=== PATIENT | female | born 1985 | race Caucasian/White ===

== ENCOUNTER 2023-02-15 18:11 | Outpatient (REF) | payer OTHER, SELFPAY ==
[2023-02-23 14:08] LABS: Pancreatic Elastase, Fecal 137 (>200)
== END 2023-02-15 18:12 | disposition home or self-care (01) ==
LOC: LAB 18:11
PROVIDERS: Visit Provider Internal Medicine
DX: R19.8 Other specified symptoms and signs involving the digestive system and abdomen (principal)
CPT/HCPCS: 82656

== ENCOUNTER 2023-02-27 09:34 | Outpatient (OUT) | payer OTHER, SELFPAY ==
[2023-02-27 10:13] LABS: Basophils Percent Auto 0.5 % (0.2-2.0); Eosinophils Absolute Auto 0.1 10^3/uL (0.0-0.7); Hematocrit 37.7 % (36.0-48.0); Hemoglobin 12.5 g/dL (12.0-16.0); Immature Granulocytes Abs Auto 0.03 10^3/uL (0.00-0.03); Immature Granulocytes Pct Auto 0.4 % (0.0-0.5); Lymphocytes Absolute Auto 1.9 10^3/uL (1.2-3.8); Lymphocytes Percent Auto 22.7 % (20.5-60.0); Mean Corpuscular HGB Conc 33.2 g/dL (29.9-35.2); Mean Corpuscular Volume 87.5 fL (81.0-99.0); Mean Platelet Volume 10.5 fL (9.5-13.5); Monocytes Absolute Auto 0.6 10^3/uL (0.3-0.8); Neutrophils Absolute Auto 5.6 10^3/uL (1.4-6.5); Neutrophils Percent Auto 68.4 % (43.0-75.0); Platelet Count 252 10^3/uL (150-450); Red Blood Count 4.31 10^6/uL (4.20-5.40); Red Cell Distribution Width 12.8 % (11.0-15.0); White Blood Count 8.2 10^3/uL (4.0-11.0)
[2023-02-27 10:43] LABS: Alanine Aminotransferase 25 U/L (14-59); Albumin Globulin Ratio 0.8; Albumin Level 3.3 g/dL (3.4-5.0); Alkaline Phosphatase 79 U/L (46-116); Anion Gap 17.4; Aspartate Amino Transferase 18 U/L (15-37); Bilirubin Total 0.3 mg/dL (0.2-1.0); Calcium 9.2 mg/dL (8.5-10.1); Carbon Dioxide 23.2 mmol/L (21.0-32.0); Chloride 101 mmol/L (98-107); Estimated GFR (African America >60 (>=60); Estimated GFR (Non-African Ame >60 (>=60); Globulin 4.2 g/dL; Glucose 129 mg/dL (74-106); Potassium 3.6 mmol/L (3.5-5.1); Sodium 138 mmol/L (136-145); Total Protein 7.5 g/dL (6.4-8.2)
== END 2023-02-27 09:35 | disposition home or self-care (01) ==
LOC: LAB 09:35
PROVIDERS: Visit Provider Internal Medicine
DX: E02 Subclinical iodine-deficiency hypothyroidism (principal); R19.8 Other specified symptoms and signs involving the digestive system and abdomen
CPT/HCPCS: 36415; 80053; 84439; 84443; 85025; 86036; 86258; 86364; 86671

== ENCOUNTER 2023-02-27 09:38 | Outpatient (OUT) | payer OTHER, SELFPAY ==
[2023-02-27 10:49] LABS: Thyroid Stimulating Hormone 3.411 uIU/mL (0.358-3.740)
[2023-02-27 11:56] LABS: Free T4 0.95 ng/dL (0.76-1.46)
== END 2023-02-27 09:39 | disposition home or self-care (01) ==
LOC: LAB 09:39
DX: E02 Subclinical iodine-deficiency hypothyroidism (principal)
CPT/HCPCS: 36415; 84439; 84443

== ENCOUNTER 2023-02-28 16:49 | Outpatient (REF) | payer OTHER, SELFPAY ==
[2023-03-08 16:09] LABS: Calprotectin, Fecal 40 ug/g (0-120); Lactoferrin, Fecal, Quant. <1.00 ug/mL(g) (0.00-7.24)
== END 2023-02-28 16:50 | disposition home or self-care (01) ==
LOC: LAB 16:49
PROVIDERS: Visit Provider Internal Medicine
DX: R19.8 Other specified symptoms and signs involving the digestive system and abdomen (principal)
CPT/HCPCS: 83631; 83993

== ENCOUNTER 2023-03-24 21:48 | Emergency (ER) | payer OTHER, SELFPAY ==
[2023-03-24 21:55] VITALS: BP 152/92; PULSE 87; RESP 18; TEMP 36.6; O2SAT 98; BMI 31.4
--- NOTE | 2023-03-24 22:11 | ECG_ITS ---
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
--- NOTE | 2023-03-24 22:12 | CT_ITS ---
The [address] [address] Patient Name: GONZÁLEZ LOMELI MRN: [id number] date: 1985 Sex: F Assigned Patient Location: ER Current Patient Location: ER Accession/Order Number: [id number] Exam Date: 03/24/2023 22:38 Report Date: 03/24/2023 23:15 At the request of: BLANCHE RUIZ Procedure: CT head/brain wo con EXAM: CT head/brain wo con HISTORY: Headache COMPARISON: None. TECHNIQUE: CT head without intravenous contrast. Dose reduction techniques were achieved by using automated exposure control and/or adjustment of mA and/or kV according to patient size and/or use of iterative reconstruction technique. FINDINGS: The brain parenchyma density is unremarkable. There is no acute intracranial hemorrhage, extra axial fluid collection, midline shift, or mass effect. There is no evidence to suggest acute infarction. The ventricles, sulci, and cisterns are normal in size and configuration, without evidence of hydrocephalus or herniation. The partially visualized paranasal sinuses and mastoid air cells are well pneumatized and clear. There are no suspicious osseous lytic or sclerotic lesions. There are no acute fractures. The extracranial soft tissues are unremarkable. CT/CT head/brain wo con IMPRESSION: No acute intracranial process. Electronically authenticated by: ELBA GOLDBERG Date: 03/24/2023 23:15
[2023-03-24 22:21] LABS: Basophils Absolute Auto 0.1 10^3/uL (0.0-0.1); Basophils Percent Auto 0.7 % (0.2-2.0); Eosinophils Absolute Auto 0.1 10^3/uL (0.0-0.7); Eosinophils Percent Auto 1.3 % (0.9-7.0); Hematocrit 38.5 % (36.0-48.0); Hemoglobin 12.5 g/dL (12.0-16.0); Immature Granulocytes Abs Auto 0.03 10^3/uL (0.00-0.03); Immature Granulocytes Pct Auto 0.3 % (0.0-0.5); Lymphocytes Absolute Auto 1.9 10^3/uL (1.2-3.8); Lymphocytes Percent Auto 20.5 % (20.5-60.0); Mean Corpuscular HGB Conc 32.5 g/dL (29.9-35.2); Mean Corpuscular Hemoglobin 29.3 pg (26.7-34.0); Mean Corpuscular Volume 90.4 fL (81.0-99.0); Mean Platelet Volume 9.9 fL (9.5-13.5); Monocytes Absolute Auto 0.7 10^3/uL (0.3-0.8); Monocytes Percent Auto 8.1 % (1.7-12.0); Neutrophils Absolute Auto 6.3 10^3/uL (1.4-6.5); Neutrophils Percent Auto 69.1 % (43.0-75.0); Platelet Count 217 10^3/uL (150-450); Red Blood Count 4.26 10^6/uL (4.20-5.40); Red Cell Distribution Width 12.4 % (11.0-15.0); White Blood Count 9.1 10^3/uL (4.0-11.0)
[2023-03-24 22:36] LABS: Anion Gap 11.6; BUN Creatinine Ratio 11.9; Calcium 8.9 mg/dL (8.5-10.1); Carbon Dioxide 23.9 mmol/L (21.0-32.0); Chloride 101 mmol/L (98-107); Estimated GFR (African America >60 (>=60); Estimated GFR (Non-African Ame >60 (>=60); Glucose 131 mg/dL (74-106); Potassium 3.5 mmol/L (3.5-5.1); Sodium 133 mmol/L (136-145)
[2023-03-24 22:38] LABS: HCG Qualitative NEGATIVE (NEGATIVE)
[2023-03-24] MEDS: 0.9 % SODIUM CHLORIDE 1,000 ML 999 ML IV (22:49)
[2023-03-24] MEDS: DIPHENHYDRAMINE HCL 50 MG/ML (1ML) VIAL IV (22:49)
[2023-03-24] MEDS: MAGNESIUM SULFATE IN WATER 2 GM/50 ML PREMIX IV (22:49)
[2023-03-24] MEDS: METOCLOPRAMIDE HCL 10 MG/2 ML VIAL IVP (22:49)
[2023-03-24] MEDS: KETOROLAC TROMETHAMINE 30 MG/ML VIAL IVP (23:29)
--- NOTE | 2023-03-25 00:37 | ED_ITS ---
HPI - General Adult General Chief complaint: Nausea/Vomiting/Diarrhea Stated complaint: HEADACHE Time Seen by Provider: 03/24/23 22:09 Source: patient Mode of arrival: walk-in Limitations: no limitations History of Present Illness HPI narrative: 37-year-old female to the emergency department with chief complaint of headache. 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 She reports it gradually intensified. She reports pain is currently an eight out of ten. She reports a history of one to two headaches a month. They're similar in location and type of pain but not usually this severe. She reports she vomited one time. She reports lights and sounds are bothering her. She denies any neck pain or stiffness. No recent head injuries. She is not on any blood thinners. She denies any changes in her vision, numbness, weakness, tingling, difficulty speaking, difficulty walking. Related Data Allergies Allergy/AdvReac Type Severity Reaction Status Date / Time No Known Drug Allergies Allergy Verified 03/24/23 22:00 Review of Systems 2 ROS Status of ROS 10 or more systems reviewed and unremarkable except as noted in history and below Exam Narrative Exam Narrative: VITALS: I have reviewed the triage vital signs. GENERAL: Well developed, well appearing adult in no acute distress. NEURO: Alert and oriented x4. Moves all extremities. Face is symmetric and expressive. Cranial nerves II through XII grossly intact as tested. Muscular strength and sensation grossly intact upper and lower extremities bilaterally. No dysarthria. No aphasia. No ataxia. Normal gait. NIHSS 0. EYES: PERRL. No scleral icterus or conjunctival injection. No discharge. HENT: Normocephalic, atraumatic. Hearing is grossly intact. Nares grossly patent and without discharge. Mucous membranes moist. NECK: No JVD. Patient moves neck without restriction. CARDIO: Rhythm regular. Normal rate. No murmur, rub, or gallop. Pulses equal bilaterally in the upper and lower extremity. No lower extremity edema. PULM: Lungs clear to auscultation in all carlos. No wheezes, rales, or rhonchi. No conversational dyspnea. No splinting, stridor, or accessory muscle use. GI/: Abdomen is soft and non-tender. Normoactive bowel sounds. EXTREMITIES: Symmetric muscle bulk. No joint swelling. No clubbing, cyanosis, or deformity. SKIN: Warm and dry. Normal turgor. No rash or lesions appreciated. PSYCH: Mood, affect, and interaction is appropriate to the setting. Constitutional Vital Signs, click to edit/add: Last Vital Signs Temp 97.9 F 03/24/23 21:55 Pulse 87 03/24/23 21:55 Resp 18 03/24/23 21:55 BP 152/92 H 03/24/23 21:55 Pulse Ox 98 03/24/23 21:55 O2 Del Method Room Air 03/24/23 21:55 Course Vital Signs Vital signs: Vital Signs Temperature 97.9 F 03/24/23 21:55 Pulse Rate 87 03/24/23 21:55 Respiratory Rate 18 03/24/23 21:55 Blood Pressure 152/92 H 03/24/23 21:55 Pulse Oximetry 98 03/24/23 21:55 Oxygen Delivery Method Room Air 03/24/23 21:55 Temperature 97.9 F 03/24/23 21:55 Pulse Rate 87 03/24/23 21:55 Respiratory Rate 18 03/24/23 21:55 Blood Pressure 152/92 H 03/24/23 21:55 Pulse Oximetry 98 03/24/23 21:55 Oxygen Delivery Method Room Air 03/24/23 21:55 Medical Decision Making MDM Narrative Medical decision making narrative: 37-year-old female with chief complaint of headache. Vital stable, patient afebrile. Headache is similar past headaches. Gradual in onset, not thunderclap. Her neurologic examination is nonfocal. She did present within the 1st [address] head sufficient rule out for subarachnoid and my low clinical suspicion/pretest probability. Migraine cocktails ordered. Patient agrees with this plan. I reviewed and noted. There are no major abnormalities. CT head is without acute findings. Patient was reevaluated at the bedside. Her headache has resolved. She feels much improved. Her neurologic examination is nonfocal. Discussed workup with the patient. Discussed return precautions. She is comfortable with plan for discharge home. Return precautions were discussed. All questions were answered. The patient was discharged home. Medical Records Medical records reviewed: Yes I reviewed the patient's medical records Lab Data Lab results reviewed: Yes I reviewed the patient's lab results Labs: Lab Results 03/24/23 Range/Units 22:04 WBC 9.1 (4.0-11.0) 10^3/uL RBC 4.26 (4.20-5.40) 10^6/uL Hgb 12.5 (12.0-16.0) g/dL Hct 38.5 (36.0-48.0) % MCV 90.4 (81.0-99.0) fL MCH 29.3 (26.7-34.0) pg MCHC 32.5 (29.9-35.2) g/dL RDW 12.4 (11.0-15.0) % Plt Count 217 (150-450) 10^3/uL MPV 9.9 (9.5-13.5) fL Neut % (Auto) 69.1 (43.0-75.0) % Lymph % (Auto) 20.5 (20.5-60.0) % [place] % (Auto) 8.1 (1.7-12.0) % Eos % (Auto) 1.3 (0.9-7.0) % Baso % (Auto) 0.7 (0.2-2.0) % Neut # (Auto) 6.3 (1.4-6.5) 10^3/uL Lymph # (Auto) 1.9 (1.2-3.8) 10^3/uL [place] # (Auto) 0.7 (0.3-0.8) 10^3/uL Eos # (Auto) 0.1 (0.0-0.7) 10^3/uL Baso # (Auto) 0.1 (0.0-0.1) 10^3/uL Abs Immat Gran (auto) 0.03 (0.00-0.03) 10^3/uL Imm/Tot Granulo (auto) 0.3 (0.0-0.5) % Sodium 133 L (136-145) mmol/L Potassium 3.5 (3.5-5.1) mmol/L Chloride 101 (98-107) mmol/L Carbon Dioxide 23.9 (21.0-32.0) mmol/L Anion Gap 11.6 BUN 10.0 (7.0-18.0) mg/dL Creatinine 0.84 (0.55-1.02) mg/dL Est GFR ( Amer) >60 (>=60) Est GFR (Non-Af Amer) >60 (>=60) BUN/Creatinine Ratio 11.9 Glucose 131 H (74-106) mg/dL Calcium 8.9 (8.5-10.1) mg/dL Serum HCG, Qual Negative (NEGATIVE) ECG Data Attestation: ?I have reviewed the pertinent ECG results. Discharge Plan Discharge Chief Complaint: Nausea/Vomiting/Diarrhea Clinical Impression: Headache Patient Disposition: Home, Self-Care Time of Disposition Decision: 23:49 Condition: Good Mode of Transportation: Private Vehicle Print Language: Montserratian Instructions: Acute Headache (ED) Stand Alone Forms: Portal Instructions Referrals: ROLA SANTIZO [Primary Care Provider] - 1 week (Return to the ED with vision changes, worsening headache, Numbness, weakness, tingling, or other new or concerning symptoms. Follow-up with your doctor.) Discharge Date/Time: 03/25/23 00:17
== END 2023-03-25 00:17 | disposition home or self-care (01) ==
PROVIDERS: Emergency Provider Student in an Organized Health Care Education/Training Program
DX: R51.9 Headache, unspecified (principal)
CPT/HCPCS: 36415; 70450; 80048; 84703; 85025; 93005; 96365; 96375; 99285

== ENCOUNTER 2023-03-30 10:27 | Outpatient (OUT) | payer OTHER, SELFPAY ==
[2023-04-03 14:10] LABS: Pancreatic Elastase, Fecal 124 (>200)
== END 2023-03-30 10:28 | disposition home or self-care (01) ==
LOC: LAB 10:30
PROVIDERS: Visit Provider Internal Medicine
DX: R19.8 Other specified symptoms and signs involving the digestive system and abdomen (principal); R15.2 Fecal urgency
CPT/HCPCS: 82656

== ENCOUNTER 2023-04-02 15:00 | Outpatient (OUT) | payer OTHER, SELFPAY ==
[2023-04-02 16:05] LABS: Thyroid Stimulating Hormone 1.817 uIU/mL (0.358-3.740)
== END 2023-04-02 15:01 | disposition home or self-care (01) ==
LOC: LAB 15:00
DX: E02 Subclinical iodine-deficiency hypothyroidism (principal); E03.9 Hypothyroidism, unspecified
CPT/HCPCS: 36415; 84443

== ENCOUNTER 2023-06-19 15:08 | Outpatient (OUT) | payer OTHER, SELFPAY ==
--- NOTE | 2023-06-19 15:12 | US_ITS ---
[address] [address] Patient Name: GONZÁLEZ LOMELI MRN: [id number] date: 1985 Sex: F Assigned Patient Location: [facility] Current Patient Location: [facility] Accession/Order Number: [id number] Exam Date: 06/19/2023 15:12 Report Date: 06/19/2023 16:03 At the request of: SAGAR BUTLER Procedure: US OB transvaginal EXAMINATION: US OB transvaginal HISTORY: MISSED MENSES COMPARISON: No relevant comparison available. FINDINGS: Gilbert intrauterine gestation Gestational sac: 1.7 cm, 6 weeks 1 day CRL: 1.53 cm, 8 weeks 0 days Yolk sac: 4.6 cm Heart rate: 174 bpm Cervix: Closed, 3.4 cm The uterus is normal, retroverted, retroflexed The right ovary is normal. The left ovary is not visualized Clinical age: 5 weeks 6 days Clinical IFEANYI: 02/13/2024 Ultrasound age: 8 weeks 0 days Ultrasound IFEANYI: 01/29/2024 US/US OB transvaginal IMPRESSION: Viable gilbert intrauterine gestation measuring 8 weeks 0 days Electronically authenticated by: MUSTAPHA COLES Date: 06/19/2023 16:03
--- OUTSIDE RECORDS SUMMARY | 2023-06-19 15:13 | XMS_ITS | CCD ---
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 Name Role Phone Maria Guadalupe Powers Unavailable NadiyaAydee anderson Unavailable Perla Márquez Unavailable Shun Hill Unavailable MD Shun Hill Attending Provider DO Irma Burt Primary Care Provider MD Shun Hill Attending Provider [phone] DO Irma Burt Primary Care Provider Shnu Hill Admitting UnavailIrma Elliott Primary Care Unavailable Shun Hill Attending Shun Medellin Attending UnavailShun Lee Admitting UnavailIrma Elliott Primary Care Unavailable Shun Hill Admitting UnavailIrma Elliott Primary Care Unavailable Shun Hill Attending Unavailtonya e Medications Current Medications Medication Drug Class(es) Dates Sig (Normalized) Sig (Original) amoxicillin 500 mg oral capsule (2 sources) Penicillin-class Antibacterial Start: 07-26-2022 take 1 capsule by mouth every eight hours Amoxicillin 500 MG 1 capsule Orally three times a day for 10 day(s) Jul, Active amylase 617496 unt / lipase 28524 unt / protease 737102 unt delayed release oral capsule (2 sources) Start: 04-06-2023 take 2 capsules by mouth three times daily at mealtime Creon [id number] UNIT 2 capsules Orally three times a day with meals for 30 days Mar, Active Desogestrel / Ethinyl Estradiol (3 sources) Progestin, Estrogen Start: 03-15-2023 Desogestrel-Ethin yl Estradiol (Apri) 0.15-0.03 mg tablet Active 1 TAB PO Daily March 14, 2023 11:00pm Start: 03-15-2023 Desogestrel-Et hinyl Estradiol (Apri) 0.15-0.03 mg tablet Active 1 TAB PO Daily March 15, 2023 12:00am furosemide 20 mg oral tablet (8 sources) Loop Diuretic Start: 03-15-2023 take 20 mg by mouth once daily Furosemide Active 20 MG PO Daily March 14, 2023 11:00pm levothyroxine sodium 0.075 mg oral tablet (9 sources) l-Thyroxine Start: 03-15-2023 take 75 ug by mouth once daily Levothyroxine Active 75 MCG PO Daily March 14, 2023 11:00pm take 1 tablet by keara th once daily in the morning Levothyroxine Sodium 50 MCG 1 tablet in the morning on an empty stomach Orally Once a day Active take 1 tablet by keara th once daily in the morning Levothyroxine Sodium 50 MCG 1 tablet in the morning on an empty stomach Orally Once a day Active magnesium sulfate 225 MG / potassium chloride 188 MG / sodium sulfate 1479 MG Oral Tablet [Sutab] (5 sources) Start: 02-08-2023 take 1 tablet by mouth twice daily Sutab 5859-303-417 MG 12 tablets the first dose the evening before and second dose the morning of colonoscopy Orally Twice a day for 1 day(s) Jan, Active predniSONE 20 mg oral tablet (2 sources) Start: 07-26-2022 take 1 tablet by mouth every twelve hours predniSONE 20 MG 1 tablet Orally 2 times a day for 5 day(s) Jul, Active sertraline 50 mg oral tablet (15 sources) Serotonin Reuptake Inhibitor Start: 03-15-2023 take 50 mg by mouth once daily Sertraline Active 50 MG PO Daily March 14, 2023 11:00pm Completed/Discontinued Medications Medication Drug Class(es) Dates Sig (Normalized) Sig (Original) azithromycin 250 mg oral tablet (2 sources) Macrolide Antimicrobial Start: 09-23-2022 Azithromycin 250 MG 2 tablet on the first day, then 1 tablet daily for 4 days Orally Once a day for 5 day(s) 2023 Not-Taking 84 hr estradiol 0.53770 mg/hr transdermal system (4 sources) Estrogen take 1 tablet by mouth every eight hours Estradiol 2 MG 1 tablet Orally THREE TIMES A DAY Not-Taking apply 1 dose transde rmal route two times weekly Estradiol 0.1 MG/24HR 1 patch to skin Transdermal Two times a Week Not-Taking ibuprofen 800 mg oral tablet (3 sources) Nonsteroidal Anti-inflammatory Drug Start: 01-07-2018 End: 03-15-2023 take 800 mg by mouth three times daily Ibuprofen Discontinued 800 MG PO Three times daily January 06, 2018 11:00pm March 15, 2023 7:47am Problems Active Problems Problem Classification Problem Date Documented Da te Episodic/Chronic Immunizations and screening for infectious disease (1 source) Contact with and (suspected) exposure to other viral communicable diseases Episodic Other gastrointestinal disorders (5 sources) Constipation alternates with diarrhea; Translations: [Other specified symptoms and signs involving the digestive system and abdomen] Episodic Other gastrointestinal disorders (5 sources) Other specified symptoms and signs involving the digestive system and abdomen; Translations: [Alternating constipation and diarrhea] Episodic Other gastrointestinal disorders (3 sources) Diarrhea; Translations: [Diarrhea, unspecified] 03-15-2023 Episodic Other gastrointestinal disorders (4 sources) Diarrhea, unspecified; Translations: [Diarrhea] 03-15-2023 Episodic Other gastrointestinal disorders (1 source) Fecal urgency Episodic Other liver diseases (2 sources) Fatty (change of) liver, not elsewhere classified; Translations: [Fatty (change of) liver, not elsewhere classified] Onset: 05-01-2023 Chronic Other liver diseases (1 source) Steatosis of liver; Translations: [Fatty (change of) liver, not elsewhere classified] Chronic Other upper respiratory infections (2 sources) Acute pharyngitis, unspecified; Translations: [Streptococcal pharyngitis] Episodic Pancreatic disorders (not diabetes) (1 source) Exocrine pancreatic insufficiency Episodic Respiratory failure; insufficiency; arrest (adult) (1 source) Respiratory failure; insufficiency; arrest (adult); Translations: [Exocrine pancreatic insufficiency] Onset: 04-10-2023 Unclassified (1 source) Diarrhea, unspecified; Translations: [Diarrhea, unspecified] Onset: 03-15-2023 Past or Other Problems Problem Classification Problem Date Documented Da te Episodic/Chronic Unclassified (3 sources) Contact with and (suspected) exposure to covid-19 Z20.822 Onset: 02-03-2022 Resolved: 02-03-2022 Viral infection (1 source) COVID-19 Results Test Name Value Interpretation Reference Range Facility CT abdomen w conon 3 CT abdomen w con [facility] [place] [address] [place] [address] CT Scan Report Signed Patient: Laura Alves MR#: [id number] 3 : 1985 Acct:[id number] Age/Sex: 37 / F ADM Date: 04/10/23 Loc: CT Room: Type: [facility] Attending Dr: Shun Hill MD Copies to: Shun Hill MD Ordering Provider: Shun Hill MD Date of Service: 04/10/23 CT/CT abdomen w con: Exocrine pancreatic insufficiency CT Abdomen with contrast TECHNIQUE: Axial imaging with 2-D reconstruction.90 cc of Isovue-300. The CT exam was performed using one or more the following dose reduction techniques: Automated exposure control, adjustment of the MA and/or Kv according to patient size, or use of the iterative reconstruction technique. COMPARISON: None History: Pancreatic insufficiency. Doppler Abdominal tenderness. LIMITATIONS: None LOWER THORAX Unremarkable LIVER: Fatty hepatomegaly. Tiny hepatic cyst. GALLBLADDER: No gallbladder abnormality identified. BILE DUCTS: No dilatation SPLEEN: Unremarkable PANCREAS: Unremarkable ADRENAL GLANDS: Unremarkable KIDNEYS:Unremarkable AORTA: No abdominal aortic aneurysm identified. RETROPERITONEUM: No significant retroperitoneal abnormalities identified. MESENTERY:Unremarkab le SMALL BOWEL: The small bowel loops are nondistended. COLON: Unremarkable PNEUMOPERITONEUM: None PERITONEAL FLUID:None BONY STRUCTURES: Unremarkable ABDOMINAL WALL: Unremarkable CT/CT abdomen w con IMPRESSION: No acute findings. Fatty hepatomegaly. Impression dictated by: Stan Owens M.D.04/10/2023 4:03 PM Dictation Location: [place] [address] Transcribed By: [facility] 04/10/23 1601 Dictated By: Stan Owens DO 04/10/23 1554 Signed By: 04/10/23 1603 Normal [facility] HCG ( test) IA.rapi d Ql (U)Ordered By: Shun Hill on 03-15-2023 HCG ( test) Ql (U) Negative [facility] HCG,Urineon 03-15-2023 Beta HCG ( test) Ql (U) Negative Normal [facility] Comment on above: Result Comment: PERF ORMED BY: [address] [place] [address] PATHOLOGIST ANVILSMITH MARINA AYALA M.D. Performed By: #### U HCG #### [place] [id number] [facility] 03-15-2023 L Specimen: [id number] Received: 03/15/23 Status: BUSTER Alfredo Num: [id number] Spec Type: Surgical Subm Dr: Shun Hill MD Tissues: A Colon Biopsy (SURVEILLANCE BX) Procedures: DUY/Deepti Mukherjee/Pierce L4 Age/ Patient Sex Location Account Attending Physician Laura Alves 37/F [id number] Shun Hill MD SPEC NUM: [id number] RECD: 03/15/23 STATUS: BUSTER LOGANVanessa NUM: [id number] SUMIT: 03/15/23 DR: Shun Hill MD ENTERED: 03/15/[address] [facility] [address]: SPEC TYPE: Surgical DEPT: S ORDERED: HE/2, Gross/Micro L4 ORDERED: HE/2, Gross/Micro L4 Pathological Diagnosis Surveillance colon biopsies: - Colonic mucosa with generally adequately preserved mucosal glandular architecture, including occasional reactive lymphoid aggregates in at least 2 fragments, otherwise without any abnormal stromal chronic inflammation, or any other specific features of microscopic colitis identified Clinical Information Diarrhea, rule out microscopic colitis Gross Description Received in formalin labeled with the patient's name, date of and surveillance biopsies rule out microscopic colitis are three garibay tissues averaging 0.4 x 0.3 x 0.2 cm. Entirely submitted in one cassette labeled A1. Microscopic Description Two H E slides reviewed. The microscopic examination confirms the diagnosis. Specimen: [id number] Received: 03/15/23 Status: BUSTER Alfredo Num: [id number] Spec Type: Surgical Subm Dr: Shun Hill MD Tissues: A Colon Biopsy (SURVEILLANCE BX) Procedures: HE/2, Gross/Micro L4 Patient: Laura lAves [id number] (Continued) Specimen: [id number] Received: 03/15/23 (Continued) Signed (signature on file) Winston Donis MD 03/16/23 1737 Specimen: [id number] Received: 03/15/23 Status: BUSTER Alfredo Num: [id number] Spec Type: Surgical Subm Dr: Shun Hill MD Tissues: A Colon Biopsy (SURVEILLANCE BX) Procedures: Deepti CHILEL/Pierce L4 Patient: Parminder Alvessay [id number] (Continued) Specimen: [id number] Received: 03/15/23 (Continued) CPT Codes 69632 Specimen: Received: 03/15/23 Status: BUSTER Loganvanessa Num: [id number] Spec Type: Surgical Subm Dr: Shun Hill MD Tissues: A Colon Biopsy (SURVEILLANCE BX) Procedures: DUY/Yaz, Gross/Pierce L4 Patient: Laura Alves [id number] (Continued) Signed (signature on file) Robbi-Tyrel Donis MD 03/16/23 1737 [facility] SARS-CoV-2 (COVID-19) RNA NA A+probe Ql (Resp)on 01-16-2023 SARS-CoV-2 (COVID-19) RNA GEORGE+probe Ql (Unsp spec) Positive [employer] Other COVID Quick Testingon 09-04 Result Negative [employer] Other COVID Quick Testingon 2022 Result Negative [employer] Other COVID Quick Testingon 2022 Result Negative [employer] Other COVID Quick Testingon 2021 Result Negative [employer] [facility] [employer] Other Consent for Treatmenton 05-21 Consent for Treatment [id number]#1.00CD:127 [facility] Coding Summary.on 05-28-2021 Coding Summary. CD:[id number]:[id number] Gh0bWw+PGhlYWQ+PE1FV IXaT78vrOYtlI8JF6pPR I7VIUCZTCKAGW6VGF5gs GB1SIfhK4UtegDk VafctHAzVC71MQn2FIQ1 pEscSVepvP0yjXPeN3c6 GoLtIP40fP03TZnfSYUb WaI1PxYklltufCVr Z3erQbFbzBIcNsm+PHRh YmxlIHdpZHRoPScxMDAl AgHqbOneLX7zHv7bFHRd LWNvbGxhcHNlOiBj i9yjXJJoQWlvAP2ayOyw E3IsxEQ9KEJpe2c0Oa43 dHI+RLKyGRI5fYjzGGvg k877TgVve2ieZRP1 fVZkNIokOZW5X30rx3U7 RVYzGJOuUFA4vWQ2zU3v sVymphimX8CueEEvXqC1 FYO1cYKawH4snSff rtjutT3dIvp+Y92TGU7P NJKEGB1GYeo6N5XoRrvb dHI+GC55NZJkYX24eUEb dGGgr2pheKg3ZzLc KFLsEIK6nDkcUMzxl3Gk EAHoE43qoMVgf7D3WTIk uBznqPCfOwJtiIT6rU4z JFolvgryk5hzuksz Akuns6rbts06xT64B53l WBilARGgSII8ZPTtESVd lNmnxf1ddC4nSa7+IDxj t0wfr1wmyMd5YfPb OIInqlHgzUanLXK3v1Yx Do09J4KdsBbcv6BnXvb7 yn22rLLha0W2eIM2HNkq IEHuyL7cOShhGzA3 SVFxWnDcbL66vDLlIXcw Oc6gtZafuFjeZA9pAHSi xofkNWKssO6lQPLzsRJv gZdiID8pYJNpadyb v509MfMkVNC1ETDyhMUh S2OhuA2vJfJwEINfECUi N5NyxGJeCNipK961YYnk OfM5QWVlqgRxQ7Ff DQNqbHbxYfB8a2T4Bs9D z1WhacpeCTR4HNcwQUCn LxN0EdEyGqF0Y1SoBsz5 MAEasOggNL6wQ0Ie NRGcmbyrkvqjaKV8MMXw PBTpdH51kQAfCBneYa6j m9T6a745WBEoADKhdK65 Tv6mkRliNHDcsSDY tX8kktzgd0gumsztBrIi LMGbKEq8DEh6VOTcuLtr GjIvKYH7BtF3WXO0oBPd cU2hnLwmyvljqM7h Oyc+H73grO7cASY5HUQ5 drtyBXPpbiAqSR58NW82 L0MbTxchcOMoxKW+PGRp rrYmjSjvCK8oIvJb c7qgh0ZxJHajR4TiUBId OIseXqf5SPFuSKK7qSI9 kT4aCVRvAFnpi9I2vZQ5 F0FwibOret1vn2th TJYdPVuxC79ysEGma5L3 JEGlwFU9LNBudNxnVfWs hW13Vne+CQBccHgnk7Xg Ztzhv7jkq3bgiNs2 IjMwJSIgdmFsaWduPSJ0 t8FbLp98V14rVVgcKQRn SKXeUKAiKVJclJfvbx3f fY3cYo5+PGNvbCB3 uVP1jY2yQWJdRaW7NRue X649BhQhkCCiSxwxp8ci j4iziCr4WwGfGBVrlnWn iMtfYBN3w5BrKc04 L78dEOhoBAPmDRKcHTFc AIYehPnvcp5wcV3wYf7+ HX1wi9otic11vV22tIG+ VQKlXVT0kEejVQil NMLqlI0eXRajLiB5GREk InXesK86kZHlEZryKh3i oOknaOvsEO6pVOSxuaib s122TuTuq0anUPEs yNTdYQmtFGB1A51kz2Z9 TWEvJYMxOLG3cHR9zA6e bGlnbjogbGVmdDsgdmVy wRlvZJzgAStfD341 IHRvcDsnPlBhdGllbnQg AaEpUSb6T7TgYpe2VMKn nEuyRB1qgIUfIQlfHm2s rAydeXukIK7yHLHc ramfr213PxHvk2mdBWPk eTHqTYtqAVK5G58lc0U1 NPBfEWIpOSX9tAE3rB7d bGlnbjogbGVmdDsg nnGomAhhMGnlYXqbN636 IHRvcDsnPkJpcnRoIERh cQT3QB82OT80yKEsi3Q0 tXY4L4VzWXDzrsuh mzghkHX5HPUvUECopW72 Gz3ozMheOn0bGDFgLBN9 OIWwzFXxT1XspV9iHjNj KUChZMRaE7FvtBYu LAejA019RYmbFoC7SSSz acOpV8FhJFBweQsvNdJ2 m0U7Sa5IX3Q8VL60WF26 zRKby0B5lEI5V3Vb ZPNjdzzsrlcoeRP6HJAc MQZqkD10Sj4iiFdpIt1b ATRbVBC7UFOyhGCyO2Qq vY1oXuClIJDoDWGj J5PggQKyESytU778SOwf OnV0SIOqbmDvQ0RkUIWj rHwbAtY9q2B4Ck3DSZa0 MR70SK27hBTqt1X6 xEV4R1UqGQQztcsrptov oCK6UCDcEZMmiW87Ys6f dGmqNs4sRPIyBXW4YXQy pUZbG7YidW7yXqIo VMSbBPWuV5DgyMEpYQgf W419ICyvYjA7MNWjicPx B7UeYMWiySevRfI0a2H8 Fw3KESPrNT07JGY2 fAP2DV11YC42W3UkLtap dGFibGU+PHRhYmxlIHdp ZHRoPScxMDAlJyBzdHls PE4nPu4uSSBbOKGh tPhghYYwCrZrp3hyPEZd FLjaHA0spOvmX3TztDD7 INIlq3b9Ee56I52fT5Iy dXA+OOYlqTG0oCA2 vY5sTxLnTrC5KBqnK644 ZfWcmVKtRfbeo3cdy1de qJt6YzH9BDPjntPetIrd DZW1h5XnPj43U73r IHdpZHRoPSIxNSUiIHZh iTpazc0cuL6dPn6+PGNv qYS9vXG8qG3fFlQpDtT6 WDztW475DoUbeZIs Fntde2awz6cfuIf3UxMo PSQubpEgwDpgEZP3j8Zz Uh38F3JlrApjc5JgWwo5 mj75tXWho0A0jQW2 G3BeQNHoobsgzHPesBik XL9eGJWakydrSEEhuD2p SPMcG2y7EvSiXbI4MHwl W0JhjfK1EOPzgGMl XJpeDAU4J61me9A4UCWr EHXiYBW0lDB8pX4jbYjf bjogbGVmdDsgdmVydGlj CTmrQMwkY578AGJn bGhyIEMepZ2wDMMkxDWc eGjuFL8uYAPoicurHkpM KS0GDDGYCmfqKNzHEKHO HFEOVB06HD64dFUq u1A3qPS7I8UiHSSlvvql xzcirNE6KLDiUAVvyW06 mPZtPSamSp1lh4D3u036 JRFnBWZvgS25Ke7w fKfzTLPfgHRBuK0cdgzw m9qblgvjVrShOVAuICh5 GHl1KBSjcHbfReYpLKW9 IyC5ANE9fPBbfS6k lFvkkzyeiU2mIfl+MTIv GIvmBHe1ADpraKZ+PHRk HOP5vVexUCeqIRMokD2k CPEbZ4w2PsBtQvA2 JSlcG4EsZWLvhvsbFa02 oY4hLjOrRrM8ILwrA2Ka daN0RKJkeYHuHOcdWLL9 L74ok3V6DNHgNQZw RBO9lOS1yY2dwIojldbl bGVmdDsgdmVydGljYWwt SLnvY261RWFljSxuDfW7 THfyCQGcBE41SE29 rGIhd6A0tSN5M9TfYSPj wbackjainUU6EKNkVIDi yE59pVZlDKinQo3eh6A6 i447EWAvXJPqyG95 Ms8geBuqDTQhtNHGwN9o ovflp4rybzdzCeEuRLVr TOj1ANi3SEOnzDoaYyBg UKM1XvY5NYT0iVOu qD6rrIkmsafpfP5jTgn+ XdCtLMfpSH35LB85hCLw w2G5wYC7R4WuVWYxjwxt xvqlpOU0TPJjUVNg zC93mXPyDQynXh9bj8M8 h882LOCxHKUnkJ97Nr8v zAtrPEYsdANFtW6wxzse l6khnbapCtNuDTJl CZx0RGr0JZRmlHfnJxYz TSA1XdC3GJP9cVEdmK1q dCxgsihqiH9cWlu+UmVj vGPrvO7bVW49SC82 A2BfHjldfZJdnHZ+PHRh YmxlIHdpZHRoPScxMDAl ApYtmEdeLN9jEe2vPAIb LWNvbGxhcHNlOiBj q3xdPXMhFYjtSO2rmWej O0RxfAJ4FJJkq9s8Yn47 E98mZ4UjeQR+PGNvbCB3 yUD9vS4lTzMjZjY3 GLgaN774XlUflOQdLhay k5pwg1fpzQa1ZhXaQRYs bkNyjIidVYQ5a2HoWv51 R41vDZsxXMJyGPEi AUMnRCCrfRwpco6oqG4i Ii8+LBCjcRS2hFU6uB9l SvFzEdS1NXggR815IcZv xVNrYyxlT28aB1Nr dXA+BAHnEkr6AXPfgHzu MT5xtYTpNKloPn6xSRE3 EzHpFwPcXEtkT1AjNDYo vathqkbnkSD5TOXg DHKrsP65Le8ztPmgLu3s MENaBQI8GDEyoEHqP8Jf aZ7sBcNtKAIeEDRvO4Hf gZJiRRhhP859TJlh AbT8VKLuyyXoB8KbNDFr uMwqMeL6j3B1Uf6RzEgh cMQwSR4fOzRmBDu2Z0Fx Qkk7MDUlvQwtDY4p uNSzQYnbRd0btGimwYkw IG4wOOYxpgxum716KeAq v2jtRQMgmJByARukTHQ5 B26vt2R7MLMkCALr HWQ1hHT3qJ4vgEpkoshz bGVmdDsgdmVydGljYWwt SVsyY302GSVlnIxdHoBB Ppj4T4XfHqm6YNWr kLhxHO0sqOWcXZoqGk4z gEhcuFgzQK0yPUOhyhhc a849FrJti2qeDXUjiWHy JQvzCQR0Y34sw8B7 KWKaTFDoXLA9vTB1qK2y bGlnbjogbGVmdDsgdmVy dTdhMVosTTwbV620NPJs dTmaLc5ELwt1L1Ge Odc7BKGmzRfhZK6sxSUg RWkxLb8tkIwrwAphQR2w GYYpqdnpr472KbFxv7hb IDEwcHQgVGltZXM7 W46sa2K4HKLwNJQdADO5 sSX2fY5xxXvuhiypgQGe dDsgdmVydGljYWwtYWxp I610CQVjoKjfHtAh eWVyOjwvdGQ+KS28lv78 Q4CgLutfZky9DSMeZBE9 vFC4iJ4nPWMaLUiuc3C6 oGN4Q2GqgnCxda7f b2xs (more content not included)... Normal [facility] Priority Order-Juan 2021 Priority Order-STAT Comment Invalid Interpretation Code [facility] Comment on above: Result Comment: Rece ived Performed at: [facility] [place] [address] [facility] [place], [place] [id number] [facility] Mina Jones Performed By: #### S ARS-CoV-2, GEORGE, [id number] #### [facility] [address] [place] [address] SARS-CoV-2, NAAon 05-25-2021 SARS-CoV-2 (COVID-19) RNA GEORGE+probe Ql (Resp) Not detected Invalid Interpretation Code Not Detected [facility] Comment on above: Result Comment: This nucleic acid amplification test was developed and its performance characteristics determined by [employer]. Nucleic acid amplification tests include RT-PCR and TMA. This test has not been FDA cleared or approved. This test has been authorized by FDA under an Emergency Use Authorization (EUA). This test is only authorized for the duration of time the declaration that circumstances exist justifying the authorization of the emergency use of in vitro diagnostic tests for detection of SARS-CoV-2 virus and/or diagnosis of COVID-19 infection under section 564(b)(1) of the Act, 21 U.S.C. 360bbb-3(b) (1), unless the authorization is terminated or revoked sooner. When diagnostic testing is negative, the possibility of a false negative result should be considered in the context of a patient's recent exposures and the presence of clinical signs and symptoms consistent with COVID-19. An individual without symptoms of COVID-19 and who is not shedding SARS-CoV-2 virus would expect to have a negative (not detected) result in this assay. Performed at: [address] [id number] PhD Shalom Gonzalez Performed By: #### S ARS-CoV-2, GEORGE, [id number] #### [facility] [address] [place] [address] Family Medicine Phone Visit - Telehealthon 05-22-2021 Family Medicine Phone Visit - Telehealth Chief Complaint EST cough, sore throat, runny nose, headache, bodyaches HPI Staff Patient 36 yo female presents via telehealth with runny nose, cough, sore throat Symptoms started- 4 days ago Headache- yes Body aches- yes Earache- yes Runny/stuffy nose- runny nose Problem with Smell- no Problem with Taste- no Sore throat- yes Cough- yes Scratchy tickly throat- no Chest symptoms- no COLVIN- SOB, wheezing mild Orthopnea- no Lung Hx asthma, bronchitis, chest colds- no Fever/chills- chills, hot flashes GI symptoms- nausea COVID exposure- no Vaccinated-yes- pfizer Treatment- dayquil, History of Present Illness I have reviewed and verified the staff HPI to be accurate for this encounter. Patient presents via phone visit for concern of rhinorrhea, cough, sore throat, headache, body aches. Symptoms x3-4 days. Denies known fever. Complains of chills and sweats. Complains of nausea. Denies known Covid exposure. Patient has had 2 -Pfizer Covid vaccines, second vaccine about 6 months ago. Has been using DayQuil pott-cza-cuzagsd with moderate improvement. Review of Systems Fatigue: yes Body aches: yes Chills: yes + sweats Fever: no, has not checked HOLLY: no Nasal congestion: yes Rhinorrhea: yes Cough: yes, dry mostly SOB: yes Wheezing: no Sore throat: yes Ear pain: no + ear pressure Ear drainage: no Loss of taste or smell: no Nausea: yes Vomiting: no Diarrhea: no Current or former smoker: current, vapes Underlying health conditions: no Known Covid exposure: no Physical Exam Vitals & Measurements HT: 169 cm HT: 169.0 cm WT: 77.3 kg WT: 77.3 kg BMI: 27.06 Phone visit: Lungs: No conversational dyspnea, no audible wheezing Mental Status: Alert and oriented x3. Normal mood and affect Assessment/Plan 1. Acute nasopharyngitis [common cold] (J00: Acute nasopharyngitis [common cold]) This visit was conducted via phone communications from my office due to the restrictions of the COVID-19 pandemic. No physical exam was conducted due to audio only communication with the patient located at [address] [place] [phone], with no one else. If it is determined that the patient should be evaluated in person, the patient will be directed to the appropriate clinic or venue. The patient or their guardian verbally consented to this visit. Phone time was 10 minutes discussing health issues with counseling and coordination of care. Discussed differential of common cold vs covid. Will send for COVID testing. Instructions given for testing at hospital. Advised needs to quarantine until results of test. Social distancing, good handwashing encouraged. May use OTC cold medications- mucinex DM, claritin D, tylenol/ibuprofen for symptomatic tx. ER if any severe worsening symptoms, shortness of breath. Patient verbalized understanding of tx plan. Patient reports some shortness of breath. Discussed option to come to convenient care so we can listen to her lungs and check pulse ox. Patient states she lives far away. Advised to call tomorrow after she schedules Covid test, if any worsening shortness of breath we can add chest x-ray order or she can stop by complete care for brief PE. Patient verbalized understanding Ordered: Rapid COVID Antigen ([facility]) Telephone Est 5 to 10 minutes 72925 2. Fatigue (R53.83: Other fatigue) see above plan, rule out covid. Ordered: Rapid COVID Antigen ([facility]) Telephone Est 5 to 10 minutes [id number] 3. BMI 27.0-27.9,adult (Z68.27: Body mass index [BMI] 27.0-27.9, adult) The standard range for ages 18 and older is >=18.5 and < 25 kg/m2. Your BMI today was above this range, this falls in the overweight to obese category and there are medical benefits to weight loss. We can offer counselling, referral, and/or medical support in addressing this problem. Your BMI and weight management will be followed at subsequent visits. Ordered: Body Mass Index (BMI) documented 3008F Current smokeless tobacco user 1035F Telephone Est 5 to 10 minutes 38198 Follow-up With When Contact Information Irma Burt DO Additional Instructions: Patient Education BMI for Adults Problem List/Past Medical History Ongoing BMI 27.0-27.9,adult History of asthma Smoker 20-NOV-2013 12:37:00<$> Historical Drug abuse Hepatitis C Procedure/Surgical History None. Medications No active medications Allergies No Known Allergies Social History Alcohol - Low Risk, 11/20/2018 Current, 1-2 times per year, 11/20/2018 Employment/School Exercise - Does not exercise, 11/20/2018 Home/Environment Nutrition/Health Sexual Sexually active: Yes. Sexually active at age 15 Years. Number of current partners 1. Number of lifetime partners 2. Sexual orientation: Heterosexual. Uses condoms: No. Other contraceptive use: no. History of sexual abuse: No., 10/01/2010 Substance Abuse - Denies Substance Abuse, 03/27/2018 Current, Methamphetamines, Pre (more content not included)... Normal [facility] Comment on above: Result Comment: Elec tronically Signed By: Eleanor SKELTON CNP\.br\Date and Time Signed: 05/22/21 12:59 EST Patient Educationon 05-22-19 Patient Education Nutrition BMI for Adults Body mass index (BMI) is a number that is calculated from a person's weight and height. BMI may help to estimate how much of a person's weight is composed of fat. BMI can help identify those who may be at higher risk for certain medical problems. How is BMI used with adults? BMI is used as a screening tool to identify possible weight problems. It is used to check whether a person is obese, overweight, healthy weight, or underweight. How is BMI calculated? BMI measures your weight and compares it to your height. This can be done either in [place] or metric measurements. Note that charts are available to help you find your BMI quickly and easily without having to do these calculations yourself. To calculate your BMI in [place] measurements, your health care provider will: 1. Measure your weight in pounds (lb). 2. Multiply the number of pounds by 703. ? For example, for a person who weighs 180 lb, multiply that number by 703, which equals 126,540. 3. Measure your height in inches (in). Then multiply that number by itself to get a measurement called inches squared. ? For example, for a person who is 70 in tall, the inches squared measurement is 70 in x 70 in, which equals 4900 inches squared. 4. Divide the total from Step 2 (number of lb x 703) by the total from Step 3 (inches squared): 126,540 ? 4900 = 25.8. This is your BMI. To calculate your BMI in metric measurements, your health care provider will: 1. Measure your weight in kilograms (kg). 2. Measure your height in meters (m). Then multiply that number by itself to get a measurement called meters squared. ? For example, for a person who is 1.75 m tall, the meters squared measurement is 1.75 m x 1.75 m, which is equal to 3.1 meters squared. 3. Divide the number of kilograms (your weight) by the meters squared number. In this example: 70 ? 3.1 = 22.6. This is your BMI. How is BMI interpreted? To interpret your results, your health care provider will use BMI charts to identify whether you are underweight, normal weight, overweight, or obese. The following guidelines will be used: ? Underweight: BMI less than 18.5. ? Normal weight: BMI between 18.5 and 24.9. ? Overweight: BMI between 25 and 29.9. ? Obese: BMI of 30 and above. Please note: ? Weight includes both fat and muscle, so someone with a muscular build, such as an athlete, may have a BMI that is higher than 24.9. In cases like these, BMI is not an accurate measure of body fat. ? To determine if excess body fat is the cause of a BMI of 25 or higher, further assessments may need to be done by a health care provider. ? BMI is usually interpreted in the same way for men and women. Why is BMI a useful tool? BMI is useful in two ways: ? Identifying a weight problem that may be related to a medical condition, or that may increase the risk for medical problems. ? Promoting lifestyle and diet changes in order to reach a healthy weight. Summary ? Body mass index (BMI) is a number that is calculated from a person's weight and height. ? BMI may help to estimate how much of a person's weight is composed of fat. BMI can help identify those who may be at higher risk for certain medical problems. ? BMI can be measured using [place] measurements or metric measurements. ? To interpret your results, your health care provider will use BMI charts to identify whether you are underweight, normal weight, overweight, or obese. This information is not intended to replace advice given to you by your health care provider. Make sure you discuss any questions you have with your health care provider. Document Released: 01/16/2005 Document Revised: 04/19/2018 Document Reviewed: 03/20/2018 [employer] Patient Education ? 2019 [employer] [facility] Physician Orderon 04-27-2021 Physician Order [id number]# 1.00CD:127 [facility] Coding Summary.on 11-04-2020 Coding Summary. [id number] Gh0bWw+PGhlYWQ+PE1FV KSbX69vmQRqyP9TU6lAT U6FLSFDKGQHNZ3ZSR9rn AT0FRwyN5HvncWe PkmgeZDuHZ93KRv4CPI3 xZoeKPjszM1jpCZvS7k9 TfQnEK47dZ01ACupHFCx XhN2LyJhrbrpiHVa U2hcUcVafUMgAsr+PHRh YmxlIHdpZHRoPScxMDAl LbRmsDerYK9eNz4kWCVa LWNvbGxhcHNlOiBj b0yuMCZwKNecUC0uwFkj D3BsaIZ7PHDpp2d8Fx28 dHI+KNQeMJZ9fKlnEApu s722GtBms3gxRCS8 rQJlLQfzQQM1A04wc4E0 TWLbNDMtAPB7kYD1gK0h rOljtbxgI3HmiCEaNoN2 QLN4fHHdxH7msWzz gzbfqH4iXyh+V76VDM8O EHKPNE6YHkw3Y6FyKsis dHI+RD93NBUmHA12zQOg eTNqe8rjyNh9OuKx ZRFlAKB5jAjjRTaqe5Qf MPAcE15vcCWpr3I1XTIr hFuxaNRqMuWjvOU2pE2t HJigvycmo6lcrzrp Aqheh1yfoc22gI42C72y WMckEOXeKEK0RUXrLSCp cGjwzr3zqZ1dHj3+IDxj v6fdg7wmaLb4IkOr BGOsdjYnfSifPFA6o1Au Re63W5LkdIdhe5FeFrd4 aw76uCTkd7W1iIZ1TRau BGCutV5wSVdkKcI1 WEHcFtPcuJ08hPOrLBbt Lb0gaNzbdXtpGF1mNVVz mogfENAkxJ1qLTXihPCj wLqmJH9wOCSnxswe o883ClGuXLD4VPGsxAXg U8IxnD5pYuBoLMOtQUWz I9OscOOpIQvlF882NBgz UvA2WUEarySxQ5Ws SGTwwZklDoF0h5V3Ju9Y r9BnilsnGXC6UVrkVWB5 BsR6YhWpZrX6Q4AjFgi8 LKCvuEzuOK2qB0Oa UHEdxhizsspjwDG6LQKn CDYakG88fFDjLJjjPd0r v0V5o658FABzDZAciF01 Hk3jwKxcUCRuoHAI sQ8bqgnlc3nsmnprHjRs JRAiAQq8NTp1GGYtfSpm MzFzBGG6LtI4PHN9rUGl uQ7mrUlukpcvkZ1u Oyc+Q73sgT0sRQI0BYK1 qtvkHGJvuzGiNU85OQ99 O9CeKgkjkWXgoUZ+PGRp gnQqsRgsXA7sCyWb a8lot9JwCLfoM9WqZKUe MElkAfk1TDXkXWR9aBH3 tX0yDPDeBVddy9B1mPZ0 V7GdahZdlm1jl8ah LNIpTEmxA50xdCTxl8H0 SKObrTR7LUFyyIloTuFk vA80Qqb+BHZmpWiyy1Qp Kkcpz3evr8rykMf5 IjMwJSIgdmFsaWduPSJ0 m1OzFz34S92xCDpyCGFa FDEmYNAfFRFgoPpnkp2p dR7nZh3+PGNvbCB3 iBF7vW7fCOPrHfZ7HVol P397GwDlaPTeWqyzo4dq z6gqsDm6ChGcITEeutUa sYcoFTJ7b5MrNb91 A28yPRznKTPiWDHoDOZg CSWdkWjyiu5vlD0pDl6+ WW8ye2ewbw73aM51zQN+ CGFaYCZ4zIooTXwq OSPohV0rYEkaFcG8GMKr OnNnzW03bZNzJRsxLr8l aAzlsTfkRZ6uDSLwbljp u801QbSlp6flPTQg uAYyEDcbRTV6J38yg3C6 QEMzCYRsDFA9tMA5yB7w bGlnbjogbGVmdDsgdmVy hUfkMKwxOIizZ457 IHRvcDsnPlBhdGllbnQg LaQjNLx9O1GhRdu2JPXg aThiAE0ibFAwCMizNg6l sPgwrMocIZ3nIIRj rhjfr921CpKvk4odFYOw vBTqURiwJHF5P36gt0X5 DWZjUPAuITB8tNZ8pD3e bGlnbjogbGVmdDsg lfMszKrrOAnaTCmfY917 IHRvcDsnPkJpcnRoIERh cZU4AN36DV28bWVtf9C3 vYV8R8DoNZZkqcxq tpzybIQ8CAZwIBNbrS53 Ko9dpZddPy7zVNTeIHV5 LVUdsQUyI3KswX5tHwOv YPKcOWYiK8FxlSLj XAlbR435LBdxTdY8ILOc nuFxI4EuXTRtrUasEvC7 s1S6Oe2ZG6J6EL05TJ82 sLZlz1H8gWX3R9Ni DQHxsjwgubazzNI3XXCm MYMlcH16Yu4gyNnwCa3y SZFoEAK1AMZeuPGmS0Xn yE3hOzLlIIJyLGSw U5BtpVIsEXoaG558JIuw AcI8HGVkixIpG6ZiZFTs lBnzShS5m5G4Ki5OTOw7 TQ44OC52xJBzm5I2 bHY7W0FwWHBqejfczrhg xAA3ZAGlCIQycZ84Pb4j hBcaKp4zCKQeSIC9YDKy sZSsZ3SywC3tOrJt WWDqTYIrC5DlkJGrARjt B128SIkuCrI0UUGageGy Q2RsWTRvfIiiWwC4g2F7 Ta4BFEHeRS87FFY8 iXN1EW67VK65F8PpLqyg dGFibGU+PHRhYmxlIHdp ZHRoPScxMDAlJyBzdHls OY1nZi7dIMBpHFZz xEhvbZVoHeXvv0dnBEEk FFrgJG6euXbxL8WwfSO8 RJXyq4v1Mj06W71aK0It dXA+QFJiaIS2uJP9 wP9xFrKqPkW8PJbnS647 PxJlmRGuLfyus8kqv8hv lNw4TuD5GPPpnzPbiVyf ZLJ8k8KkGn17N72e IHdpZHRoPSIxNSUiIHZh fCmzsd9drL6lLt9+PGNv tWX6mRN6cW5dWpUnAiY9 CRfoZ487VzTsfXPa Ttxbn8iiy8kodIi1FpEy PKMdfiLjjPqtFAA4z7Jn Fv17N0PviVdfe0BeEho0 sx70xNTqh5X8gLH5 C8RwRPHhjgtbeWBerSgg AB4eWDSbfewnBBQziH8o ATIbI0j7EhEoTyR2MQay K2EzoeM6MXOweTRd OZcvQMW7A30qn2W8LMIx XSPnSRI7vUK0zX4thAms bjogbGVmdDsgdmVydGlj OBekNVkjQ273PFYr gLfzTWJdtA4dVYAlbLVu kBbpSW0uUGZcfmxgGfjU JA9PYRLRLhzhAPwUOBAR RZILBV72XH83oUJe q2A7qQC0X9ZnDWCohffb zutgqYV4GIWlRTLcwD33 vJCwWWkaJf7di9P6e763 PACsAFJcoJ29Ht8h jYhxLVNosCASpM3lzjoc s3zucwjzOmWpNSZkQZz0 JTl1TSYblVbhJhGnUSP3 UfA9XAQ8iPRhiJ4m eKqvehbdpV8lLsa+MTIv KNqjZPi5JRhkjOR+PHRk KOK5iDtmXWnfZJHjfT0q MYHqR4i2RlNeNhK1 GJrxL2WnRCHtwpgzFv73 sS2uEaXtEvP3LHhrL9Yr raI9STOahIKbINdaKTQ2 V55fd9V1MKNrHNSu IAO7hMS2xT1fyHgalzuv bGVmdDsgdmVydGljYWwt MBliR476QGLhbGzeLjQ2 BYtfVWInWO69ZK72 eZHop8P7oQK2T8FoOMXo pypvrsopvCB3ZQWcGVXh aS13aTVcVFoyYk7jm4Q9 j485MFQlBSAzzL16 Bh5wrHqgQZXwxLIOcS4l wvxxq4aikqfiBdCeDKRh GQo1YQx5NRXdkBqcPtWg ZYQ2GzQ2QJT0hSIv yV0czCzyqtlpeW9mQbf+ ZvOsHMmrAI38AI05oTUm r1K4oIQ3D6SzOYHcmypu pmadnIS2BSXqPSKf kA32xSUsMUmeTu3nn2C8 l402EVYgYOUheZ89Il2w qMpgPUOfeBUAaO2gsgjz p6uymasqAjYiSSBr ZWq9OYc6JUUzwIooIbJf IRC8XdJ1TRO2mBNsqM4d gRacgeiirN6oXey+T3V0 dUH9fGDqoQdwhDG+ XJ90ir80B6CgKcaqNdw7 AYOkSAO0uAN1nK2nZWEf QSrhl8M0sVY1O5MuxvNf rq8il8hqOPZvVJbn T14vcRUvh1S2LPZxhLU7 HWRfnGgoZvUrtG91Iam+ IKUhiOjzz8SmRdmrl2fb o0bqaRt1YeOyGGFi yjEooGcfFHR1o2LtUs62 M46uSAdkEULaWRKhFEYa OIJmhBqtlo1ynB2tJq4+ HCQsuQV3lDS9hY4q UpDiOlY7PVtsJ545AnPh kXVjUuohz6gdk6hyrUf5 IjIwJSIgdmFsaWduPSJ0 w3YaRo82U3EvzZqb j0LxRys1kw17iFOvw3K3 kNM2R5JxSUUicqxfrPFr fQifMP2fMDUosmzhRBGu xB2pFEErR8l7DkVv VnV4PBoqV4MoicH5FAXl lMDtLUPhiYAPbK4gbxfz x4yceshbNlDjGUCfQBz5 AQv0HTRzlHwzMkRa QEJ2HwB1HKK3sUKzmA3n mUwjfnivwC2nKwo+UGh5 p8zraLXnDI2xhDI2PR41 QQ26aYRlv1U3jWS9 K4KeDDKgcctkxnjgsTD5 JDNkLRBmjW73Xf8vcDgh Yo1mRUYcWCN1THVcbYXk Z2GyeS9uNaJdWBZm PNLjP2ZkzDAsUQgbS846 GEzvUuP5KQWqitNqA7Qn MKKuuYroWxJ7i7X0Dw6U ZK34WF01RB99jPVg j6O1pVS3X1BxKGSajkvp wkxjuQV9ZXOfHXQtaO02 Gm8wlRzvYf5dYMRrKDP8 XYZodHJpQ3DpcM5e RuWnAPYtGENeQ1UkzXDk SSkdT470ZWnxDpN3FDRn baGzS6BrMJAtoQmsWbT4 f8Q8Vt6HLm70DN51 HW80oPEah8G0sQO7P8Rf WOYbnslssmlakLO1VHHr HXGcnH19Qv6ktOwmWy0c PVGaELI9POPdpXBx J9EobB7hTnKeWSLfJZCj H3VpzIZcVNsqR130KAdv QmF2ZQDbwnLwK1YcEMMi nVhfNxC5w5I7Eo3U ULmdoaz9E7FdSkoyjKD+ BJ56RPUlID23jZLwbAAc c4jvkYr2UtKaCVTxLWW2 wRptTOkil8WwVLWo Y29s (more content not included)... Normal [facility] CT Chest w/ Contraston 10-29 CT Chest w/ Contrast Exam Date/Time: 10/27/2020 16:34 EDT Reason for Exam: J06.9 Acute upper respiratory infection, unspecified Report IMPRESSION: NO CHEST ABNORMALITY IS EVIDENT. CLINICAL HISTORY: J06.9 Acute upper respiratory infection, unspecified. COMPARISON: 09/25/2009. COMMENT: IV contrast enhanced images were obtained. The contrast opacified thoracic aorta is normal, without evidence of aneurysm or dissection. The heart is normal in size. There is no pericardial effusion. No mediastinal nor hilar lymphadenopathy is noted. There are very minimal fibrotic changes at the lung apices. Both lungs are otherwise clear. No infiltration, no lung mass, nor pleural effusion is evident. No focal abnormality in the subapical left upper lobe is noted to account for the vague density on the recent radiographic exam, and therefore, presumably this was due to a fortuitous superimposition of densities. The areas of airspace opacification present in both lungs on the CT scan of 09/25/2009 [address] All CT scans at this facility use dose modulation, iterative reconstruction, and/or weight based dosing when appropriate to reduce radiation dose to as low as reasonably achievable. FINAL REPORT Dictated: 10/29/2020 3:14 pm Terence Lomas M.D. Signed (Electronic Signature): 10/29/2020 3:14 pm Signed by: Terence Lomas M.D. Transcribed by: SHAYNA Technologist: SHAYNAR Technical Comments GFR (mL/min/1/73m2) age Contrast: Isovue 300 Contrast amount in ml's: 100 Normal [facility] Coding Summary.on 10-28-2020 Coding Summary. CD:[id number] Gh0bWw+PGhlYWQ+PE1FV DWhX27sxHYudV4KU6xDE S7SSQWXUBMAHI7BZB6we HE1SRgbX8JfiyTc RqcquEDcIU96OKy3BIZ2 pReyWWeseC5bsOMrH3o4 UbNrGG92bY34ZSadWMDy YyN3CxMziirshCQy H3ccDdNtmRIdGqp+PHRh YmxlIHdpZHRoPScxMDAl PlQghKqxJK5hZl7eVGPd LWNvbGxhcHNlOiBj k8trSFNgVKxwIU4ahVhy U9AqzOA2KIXwq1h3Mb40 dHI+UFXwBJU0lJooSPwf u074UyMwt6nbLMH6 pGJlZIgiQJT0S00rk8H2 YOPcRFHtYBA8cYN5vE8t zZcpjuatN7YcsNIgVgV5 ORL1nIQnkI5ahBed qijutC8vQsk+Q65QHV1C ASDTJI0PQqi3D4ZlGyco dHI+UR04YURrMD74oDXv vQCyp2yoaGs6CqPw QZMiRSP5bUmsLIges3Hs XZKbP08uuYOvb4D1XYZa lSefcJIaAoYlzTF1xZ0p EKivkyzap3mrrggr Auxoz0kzgz71mW22P78i UUozSEIgTOM3CFHmSSEb fDjjim8uoU1gMd7+IDxj v2rey2nuzNi5JxAa RHGzawIxaXqpNPG2g3Mf Fs17H5UshYraw2JbMag8 tm33iRGmb0G6fAX8UYxa SDPrgY9mKUrxSyK3 TFTtDeKjjR41fSHmUXyw Vi0plEispUzdFZ8pQUBa klwdWJDbjB8gXBMkrCOk tLxkMQ5iSTIfnqzn p563HlQpCYP5BKSbpOSh D5CovZ9zOpKsHTHnHZBj P8UuqVLxQPkxL638LZfo XtM0TDMjzdTeJ8Mo TVEcvWreXrP3h3D3Nn4U w8PfkigjEBG1LJtzPFE0 KeOrJdPdXxR1M4KrPgh7 EYBzlKdtYK8qO0Ud AWViobwyegdvsKF6SOPx YRCcwL41jRIzLNfoAz9z j0M9z892PKThEJUfwO86 Hp9zcHsxEYJkrQJK aV4paencu6rpvghiElJa DJHdTNi5JPh7UEXxvWla LjArULU0DpQ3HEY4lBGl xV7coQsfglkbhD7i Oyc+R81ebQ8gMOE6QHY1 ezjfIUAmlcZxQK76FM68 E3CxPcpxrCLinTD+PGRp quJydGqaXV9iRjOc y8kxh2RnCUmwA6OcJINl DTjsMvs1AJNqKMH7uNV3 iD5dSJWmEVzke4F1nND6 A4AdkyHnry0sr7aw IWJgEHojC08opJQpk3L8 VATfxBO0RKMbkGnkLyZa gY03Gxe+KFEbeBctc7Dw Zfreh4ilp6xzhOg1 IjMwJSIgdmFsaWduPSJ0 q5TsRg86X48wRMpgBDJi WHYcAZXzHVGdlGixwg5b nP7uRy1+PGNvbCB3 hMU6oQ6eKPJuIqD8PLaw Z282QxLkpBNiSwwhm3zb p6gvgDb8PrSjVFEdxcYl aQadEON3a5KoHi12 Y89oWXvfBUFpYUJsLJXi NHBppWcaor3hxD0vRv1+ IU1lq8xpjy25tT07kNH+ JUUsDIV9wQbhXXdp UTYloF8dVAxqAqA0JTQb UjYrvL03pGOoRNvdHr9w qRrdaBbgGA4bFQKuumxs i285OkWfu2llQDNm rYRnEBxiJBH0L29hg0F2 JRMcKXPdMOL6xAJ9tI7e bGlnbjogbGVmdDsgdmVy aAhgQZohIAqdP854 IHRvcDsnPlBhdGllbnQg HwWlCYc0I0AmMqr9JQQf lGdwFY7bhPZrYSwySy7l kNsfoMpiRZ8wXCPf ltylc594CbKri6dfERFv dJUdLQcgWRD8A82hl5L5 UUEoYOOoUYX9mFP9hN3d bGlnbjogbGVmdDsg csHnkDtvUWkqGMmxY740 IHRvcDsnPkJpcnRoIERh sYZ2FQ83UF76vRKmm4M2 iKI6D0DtSOFuswqn ufcumDY1PAXrVGZlsB61 We8lzTjnJu5kMTGuQXO7 YUXfzFCzD4RreA4aZgEj ZYAmMZSeJ1HinAVw YTseF642BDoyJvW3RMPc vxOzM7EkHKKmeJujIxZ8 j8V4Ts3WX9U2WJ22DE83 vGQns3Y1tRJ7Q9Kw SDYcxhaplvhfpQE3LNPe IEPjlC25Cf4nnXdaFk3u UQClQVX2SVYcbPYeE0Mu bE3qGnRfGEIoMYWn O4AhpNJaCDgdE740IAis WeL4GXXyhdTfW4PtEGCo sKrzItA4w1X9Bx6XDRy3 RL75SB93cRFzd7X7 dDA9S0VsKILedfyqwcma tDP9LDUyUVEyuX23Oe2b uOaxVy3qLKQgJSW4FUEa jKMeO2JyaP4oOwNv KESaIQEfS1PkoTFbAQic M172ZMfvAwC5TUXtabPf S3LjPZEaxIjdEaT0s6B4 Ke4NVIPsML98ZPJ4 cHD9RF39WK39G0WzAnms dGFibGU+PHRhYmxlIHdp ZHRoPScxMDAlJyBzdHls VG8sUi3rGFQtURGj uNgwkILdQvYtz9yrYGBe IGxiYH7ksAekD9FixDM4 PXIrg5u8Dq11L83qS0Vs dXA+JSOdcWA4gIZ1 jA2vJjJwEaN1HApjQ448 XjNudTIcTentj7ety5lj qSx9IfR7BXIzhuRdsTkv VUQ1k4OyKl75K17q IHdpZHRoPSIxNSUiIHZh iGqixt1hcV0wSf8+PGNv eQY4sYA4mV9zLdEqHjD6 NXbdS435FvTlzSHz Hcppq4bki3wkgPu9ZlCo SPUruqVmaEwtYGK4l8Gy Ct83U7SegKcqd2PhZyh3 gi13kSGar2O1pHP5 Y2GnKLXxzyqxoLMbpKgc AT6uJCVgwzfvOVZiaX6q XZPhA1m2RrMbDjP7JYys G4FsgbQ6OJLupTEy CFrrIPC7H27ny8P7FAOi QSXpCFM7cCX9lJ8grXri bjogbGVmdDsgdmVydGlj KGbnHSocN619HAXg nFotJFViaT8vMAXfcFYf uWvoPK1gWKTtfqpsVoxT OM4FEUNRQlzmNOePLJAW LKQCEK77UZ04xGBs a7Z3pSQ3R5XnVAWafdkr zlzomVD0ESWhJRFubE90 jMQdFGkcTn5zc2P7f535 ACWlGGUudL96Yd5m uGixCCQutMYVwL7pnkva s8zwyxviZwGiVSQhTBl2 GZr9CMRwhYylZrNtPCU9 KvS0UGD4gPLfhI8q wSwzfcbieV2rTiy+MTIv UNfqKNa4CGigeCX+PHRk QIL2yKysTFmsFEVysE2y XOSjP8v2AcVnKdX5 FGjiJ7FsBKEobqvgVm98 hU3oZwVxJsB1WKpdD7Yv bmI2IEWooJZpQOjiNOJ3 C38si8P3GBXoASBo AMP4mIW0uY0etKsakndv bGVmdDsgdmVydGljYWwt DOylU799ZVIocJyyLpZ5 LXamRZDgZS38JI37 iRClx7V0zEB0U4GgIQTu zmltcvggrKP9QMOgTBGf pC04iFMqTMpsSw0ca1O8 g921RCXdRKGmuO64 Pw3yyWenAFQokNGXrQ9d waejg3mrsarnHkHnQTFz JEg6FNq2TJXmfKcjUdQa HLO0TtW2GVO9sZVk mR6sfHjcwwhstQ0sRbb+ EkCgLHktZI21SU74mXPr s5W7mNL1E3RdFXOtaxmx zyeyrYX8XWPdAZTa qV49jJPgEOetRd4wn6G3 u560EPFiGZSbsM80Nt8c uRntZGSioNMCpM3ixrzt p1ofisajBhFbUEWt QWh8AZd6POEziMnlNqDw RLI6InL6GBR9eTZjrG9l aNxkncyyvB6oWqp+T3V0 xLY3kEUguWntfKG+ UR46ub28I4LdTixaAfl9 HOJvUAO8oNR7cA4iCJVe LYfxh5L5yLV1W6ZjamPf us5gf5yySLOzGEsv V14onSEqp3V3UAVheNY3 ESEkkDwlEgSnkV10Vjx+ PTRukCayf4ElYuovw7ds e8gidVw4MvNiFZFc hhBulDfkKOR5w5FpZz22 I58kWVubQPNpLWVvVPUz ZSOviQszno3vuJ0nNt5+ ADAehOD2aRX2dW3f JoNiViD7RMdoZ366DvIh sPJyEaevb4smg7vtxZh9 IjIwJSIgdmFsaWduPSJ0 c0JoQh07H0TdxRer t4KkMkz4bs00wYQnx9I4 jPR1K7PxWUTwnrmfcIKu lEznZD2pNZYrqrtaENCi pK6cQJOuY9k3SoYf ZzI8VTfkI5ZcsyB8OVZi zBKjXHVueCKRhO1chizo g6dzmteqIkMgITSeCJr8 IYe4ONUxdIivByPt KBP7PnY7HPM1jAGrdV8g yOfoywfdzZ4sWoz+UGh5 p4jqnPIhGV5fvAN1FR34 AS20vYEru2T9qFS9 O5XySVMmyibumqzgqWM6 NPYgLJEuoM57Sw9hzJlr Eu6eCNRdBAW0NQJerDGx O9CcfD7sKnCnXCIn FSLaG1OfzYJqABgxL091 PZodKwC8LLDytrWpI8Gw MZSrxPxsDdU7a5O1Ul4M GR55RQ72LC15oOZa l1S8oXK8A1ZpGFMqusmt nrvttIS3ATWeFAHwgY83 Dz8ayLrmWk6zRXRaPST3 HCWjeDUtR6GrvZ7x CrRmAATmVLUhO6DvmWIp ZMycB064NItyJwV8HXYt oxPkM1JoOJXecSfzKeE5 x0I4Xa7SHb83OZ88 OB60tGCca4O3bTH6N4Dh FJCigxhylxbvfMS7YRRw CZTioZ12Nx2nrLtmKd0z NZAtYPB7AYRtlEDu X7StzN1ePqLuGIDuGLJu M9GolXMtJFjqN981WLmp GhM8IPCiizKyU9OlWENa hIpeQnW9l4E1Rm6R YDxjtca5P3DqFkjnvEX+ NQ57XGHjJP38vUQkvHVi i8wyyMn6RpJqVVHrOLT4 eQhvWUpax5WtFQEf Y29s (more content not included)... Normal [facility] Consent for Treatmenton Consent for Treatment [id number] #1.00CD:127 [facility] Physician Orderon 10-21-2020 Physician Order [id number] #1.00CD:127 [facility] Consent for Treatmenton 06-0 Consent for Treatment [id number] #1.00CD:127 [facility] Physician Orderon 10-19-2020 Physician Order [id number]#1.00CD:127 [facility] XR Chest 2 Viewson XR Chest 2 Views Exam Date/Time: 10/19/2020 15:35 EDT Reason for Exam: Z20.822 Report IMPRESSION: A QUESTIONABLE SMALL DENSITY IN THE LEFT UPPER LOBE, SUGGESTING POSSIBLE EARLY PNEUMONIC INFILTRATES OR PULMONARY NODULE. RECOMMEND CT SCAN OF CHEST FOR FURTHER EVALUATION. CLINICAL INFORMATION: Z20.822 positive COVID COMPARISON: 03/27/2018. FINDINGS: Two views of the chest were obtained. Heart and mediastinum appear normal. There is questionable small density in the left upper lobe. Visualized bony thorax and remainder of the chest appears unremarkable. FINAL REPORT Dictated: 10/19/2020 3:43 pm Lowell Ball M.D. Signed (Electronic Signature): 10/19/2020 3:43 pm Signed by: Lowell Ball M.D. Transcribed by: SHAYNA Technologist: BECKI [facility] Vital Signs Date Time Vital Sign Value Performing Clinician Facility 06-12-2023 13:00-0500 Body height 170.18 cm Shun Hill Other [facility] Other 06-12-2023 13:00-0500 Body mass index (BMI) [Ratio] 35.24 kg/m2 Shun Hill Other [facility] Other 06-12-2023 13:00-0500 Body weight 102.06 kg Shun Lamack Other [facility] Other 03-15-2023 12:29-0400 Diastolic blood pressure 89 mm[Hg] DO Irma Burt Work Phone: [facility] 03-15-2023 12:29-0400 Heart rate 70 /min DO Irma Burt Work Phone: [facility] 03-15-2023 12:29-0400 Respiratory rate 16 /min DO Irma Burt Work Phone: [facility] 03-15-2023 12:29-0400 SaO2% (BldA) [Mass fraction] 100 % DO Irma Burt Work Phone: [facility] 03-15-2023 12:29-0400 Systolic blood pressure 132 mm[Hg] DO Irma Burt Work Phone: [facility] 03-15-2023 08:54-0400 Body height 170.18 cm DO Irma Burt Work Phone: [facility] 03-15-2023 08:54-0400 Body weight 90.71 kg DO Irma Burt Work Phone: [facility] 02-08-2023 14:45-0400 Body height 170.18 cm Shun Hill Other [facility] Other 02-08-2023 14:45-0400 Body mass index (BMI) [Ratio] 34.92 kg/m2 Shun Liz Other [facility] Other 02-08-2023 14:45-0400 Body weight 101.15 kg Shun Liz Other [facility] Other 02-08-2023 14:45-0400 Diastolic blood pressure 80 mm[Hg] Shun Hill Other [facility] Other 02-08-2023 14:45-0400 Systolic blood pressure 131 mm[Hg] Shun Hill Other [facility] Other 01-16-2023 10:35-0400 Body height 170.18 cm Aydee Nadiya Other [facility] Other 01-16-2023 10:35-0400 Body mass index (BMI) [Ratio] 35.2 kg/m2 Aydee Nadiya Other [facility] Other 01-16-2023 10:35-0400 Body temperature 98.3 [degF] Aydee Nadiya Other [facility] Other 01-16-2023 10:35-0400 Body weight 101.97 kg Aydee Nadiya Other [facility] Other 01-16-2023 10:35-0400 Diastolic blood pressure 66 mm[Hg] Aydee Nadiya Other [facility] Other 01-16-2023 10:35-0400 Respiratory rate 18 /min Aydee Nadiya Other [facility] Other 01-16-2023 10:35-0400 SaO2% (BldA) [Mass fraction] 98 % Aydee Nadiya Other [facility] Other 01-16-2023 10:35-0400 Systolic blood pressure 105 mm[Hg] Aydee Nadiya Other [facility] Other 09-23-2022 10:45-0400 Body height 170.18 cm Aydee Nadiya Other [facility] Other 09-23-2022 10:45-0400 Body mass index (BMI) [Ratio] 35.13 kg/m2 Aydee Nadiya Other [facility] Other 09-23-2022 10:45-0400 Body temperature 99.2 [degF] Aydee Nadiya Other [facility] Other 09-23-2022 10:45-0400 Body weight 101.74 kg Aydee Nadiya Other [facility] Other 09-23-2022 10:45-0400 Diastolic blood pressure 80 mm[Hg] Aydee Nadiya Other [facility] Other 09-23-2022 10:45-0400 Respiratory rate 18 /min Aydee Nadiya Other [facility] Other 09-23-2022 10:45-0400 SaO2% (BldA) [Mass fraction] 98 % Aydee Nadiya Other [facility] Other 09-23-2022 10:45-0400 Systolic blood pressure 125 mm[Hg] Aydee Nadiya Other [facility] Other 09-04-2022 11:20-0400 Body height 170.18 cm Aydee Nadiya Other [facility] Other 09-04-2022 11:20-0400 Body mass index (BMI) [Ratio] 31.32 kg/m2 Aydee Nadiya Other [facility] Other 09-04-2022 11:20-0400 Body temperature 97.8 [degF] Aydee Hearn Other [facility] Other 09-04-2022 11:20-0400 Body weight 90.72 kg Aydee Hearn Other [facility] Other 09-04-2022 11:20-0400 Respiratory rate 18 /min Aydee Hearn Other [facility] Other 09-04-2022 11:20-0400 SaO2% (BldA) [Mass fraction] 99 % Aydee Hearn Other [facility] Other Encounters Encounter Date Encounter Type Care Provider Facility Start: 06-12-2023 End: 06-12-2023 ambulatory Shun Hill Other [facility] Other Start: 06-12-2023 Office outpatient vi sit 15 minutes Shun Hill [facility] Start: 05-01-2023 End: 05-01-2023 ambulatory Shun Hill Facility:[facility] Start: 05-01-2023 End: 05-01-2023 ambulatory DO Irma Burt Work Phone: [facility] Work Phone: Start: 05-01-2023 End: 05-01-2023 Patient encounter procedure DO Irma Burt Work Phone: [facility] Work Phone: Start: 04-10-2023 End: 04-10-2023 ambulatory Shun Hill Facility:[facility] Start: 04-10-2023 End: 04-10-2023 ambulatory DO Irma Burt Work Phone: [facility] Work Phone: Start: 04-10-2023 End: 04-10-2023 Patient encounter procedure DO Irma Burt Work Phone: [facility] [place] Work Phone: Start: 04-06-2023 End: 04-06-2023 ambulatory Shun Liz Other [facility] Other Start: 04-06-2023 Telephone encounter Shun infante [facility] Start: 03-20-2023 End: 03-20-2023 ambulatory Shun Haleormack Other [facility] Other Start: 03-20-2023 Telephone encounter Shun infante [facility] Start: 03-19-2023 End: 03-19-2023 ambulatory Shun Hill Other [facility] Other Start: 03-19-2023 Telephone encounter Shun infante [facility] Start: 03-15-2023 End: 03-15-2023 ambulatory Shun Hill Facility:[facility] Start: 03-15-2023 End: 03-15-2023 Admission to same day surgery center DO Irma Burt Work Phone: [facility] Work Phone: Start: 03-15-2023 End: 03-15-2023 ambulatory DO Irma Burt Work Phone: [facility] Work Phone: Start: 02-26-2023 End: 02-26-2023 ambulatory Shun Liz Other [facility] Other Start: 02-26-2023 Telephone encounter Shun infante [facility] Start: 02-08-2023 End: 02-08-2023 ambulatory Shun Haleormack Other [facility] Other Start: 02-08-2023 Office outpatient ne w 45 minutes Shun Hill [facility] Start: 01-16-2023 End: 01-16-2023 ambulatory Aydee Hearn Other [facility] Other Start: 01-16-2023 Office outpatient vi sit 15 minutes Aydeechelsea Hearn [facility] Start: 09-23-2022 End: 09-23-2022 ambulatory Aydee Nadiya Other [facility] Other Start: 09-23-2022 Office outpatient vi sit 15 minutes Aydee Nadiya [facility] Start: 09-04-2022 End: 09-04-2022 ambulatory Aydee Nadiya Other [facility] Other Start: 09-04-2022 Nursing evaluation o f patient and report Aydee Hearn [facility] Start: 07-12-2022 End: 07-12-2022 ambulatory Perla Yulisa Other [facility] Other Start: 07-12-2022 Office outpatient vi sit 5 minutes Perla Yulisa [facility] Start: 07-07-2022 End: 07-07-2022 ambulatory Aydee Nadiya Other [facility] Other Start: 07-07-2022 Encounter for other preprocedural examination Aydee Hearn [facility] Start: 07-07-2022 Nursing evaluation o f patient and report Aydee Hearn [facility] Start: 02-03-2022 End: 02-03-2022 ambulatory Maria Guadalupe Powers Other [facility] Other Start: 02-03-2022 Office outpatient vi sit 5 minutes Maria Guadalupe Powers [facility] Procedures Date Procedure Procedure Detail Performing Clinician Start: 05-01-2023 Ultrasound elastogra phy of liver DO Irma Burt Work Phone: Start: 04-10-2023 CT of abdomen with contrast DO Irma Burt Work Phone: Start: 03-15-2023 Colonoscopy DO Irma Santa trvezaheer Work Phone: Plan of Treatment Date Care Activity Detail Author Start: 05-01-2023 [facility] Start: 03-15-2023 [facility] Payers Date Payer Category Payer Private Health Insurance [id number] 2023 Self-pay [id number] Medicaid [facility] [id number] Private Health Insurance [id number] Unknown [employer] [id number] Unknown [id number] Unknown [id number] Unknown [id number] Social History Date Type Detail Facility Sex Assigned At [facility] Other Start: 03-15-2023 End: 03-15-2023 Tobacco smoking status AZIS Ex-smoker (finding) [facility] Start: 1985 Sex Assigned At Female F [facility] Goals Date Patient Goal Desired Activity /State Clinical Notes 02-03-2022 to 06-12-2023 Note Date & Type Note Facility 06-12-2023 Evaluation note Encounter Date Diagnosis Assessment Notes May, Diarrhea (ICD-10 - R19.7) Patient reports that she is about 7-8 weeks gestational Patient reports improvement on Creon with occasional flare Patient reports that she is taking a fiber supplement May, Fatty liver (ICD-10 - K76.0) Patient did have a FibroScan that indicates fatty liver and minimal scaring, this will be reviewed [facility] Other 11-17-2023 Evaluation note* Encounter Date Diagnosis Assessment Notes Treatment Notes Treatment Clinical Notes Mar, Exocrine pancreatic insufficiency (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) [facility] Other 10-31-2023 Evaluation note* Encounter Date Diagnosis Assessment Notes Treatment Notes Treatment Clinical Notes Feb, Alternating constipation and diarrhea (ICD-10 - R19.8) Feb, Fecal urgency (ICD-10 - R15.2) [facility] Other 10-30-2023 Evaluation note* Encounter Date Diagnosis Assessment Notes Treatment Notes Treatment Clinical Notes Feb, Alternating constipation and diarrhea (ICD-10 - R19.8) [facility] Encounter Date Diagnosis Assessment Notes Treatment Notes Treatment Clinical Notes Feb, Alternating constipation and diarrhea (ICD-10 - R19.8) [facility] Other 09-21-2023 Evaluation note* Encounter Date Diagnosis Assessment Notes Treatment Notes Treatment Clinical Notes Jan, Alternating constipation and diarrhea (ICD-10 - R19.8) WORSENING DIARRHEA AND CONSTIPATION OVER THE PAST YEAR. DOES HAVE SOME NOCTURNAL AWAKENINGS WITH THE DIARRHEA. CAN GO 4-5 DAYS WITH OUT A BOWEL MOVEMENT WHEN SHE IS CONSTIPATED. WILL ORDER IBS WORK UP WILL PROCEED WITH COLONOSCOPY [facility] Other 08-29-2023 Evaluation note* Encounter Date Diagnosis Assessment Notes Treatment Notes Treatment Clinical Notes Dec, Suspected COVID-19 virus infection (ICD-10 - Z20.822) Dec, COVID-19 (ICD-10 - U07.1) Discharge Instructions for COVID-19 (Suspected or Confirmed ) material was printed Drink plenty fluids, get plenty of rest. Take Tylenol or Motrin as needed for aches pains or fevers. You must quarantine for 5 days after the onset of your symptoms of COVID. Follow-up with your family physician if no improvement in 2 to 3 days [facility] Other 2023 Evaluation note* Encounter Date Diagnosis Assessment Notes Treatment Notes Treatment Clinical Notes September, Sore throat (ICD-10 - J02.9) September, Strep pharyngitis (ICD-10 - J02.0) Pharyngitis/tonsill opharyngitis: adult home care material was printed Drink plenty fluids, get plenty of rest. Take the azithromycin as prescribed until gone. Take Tylenol as needed for aches pains or fevers. Follow-up with your family physician if no improvement in 2 to 3 days [facility] Other 04-17-2023 Evaluation note* Encounter Date Diagnosis Assessment Notes Treatment Notes Treatment Clinical Notes Aug, Contact with and (suspected) exposure to other viral communicable diseases (ICD-10 - Z20.828) [facility] Other 02-22-2023 Evaluation note* Encounter Date Diagnosis Assessment Notes Treatment Notes Treatment Clinical Notes Jun, Contact with and (suspected) exposure to covid-19 (ICD-10 - Z20.822) [facility] Other 02-17-2023 Evaluation note* Encounter Date Diagnosis Assessment Notes Treatment Notes Treatment Clinical Notes Jun, Preoperative clearance (ICD-10 - Z01.818) [facility] Other 09-16-2022 Evaluation note* Encounter Date Diagnosis Assessment Notes Treatment Notes Treatment Clinical Notes Jan, Contact with and (suspected) exposure to covid-19 (ICD-10 - Z20.822) [facility] Other Evaluation note* Diagnosis Onset Date Resolution Status Diarrhea acute [facility] Work Phone: Hisxnms general Narrative - Reported* Type Description Date Medical History ANXIETY AND DEPRESSION [facility] Other Hospital Discharge instructions Additional Instructions DISCHARGE INSTRUCTIONS FOR ENDOSCOPY FOR COLONOSCOPY: -Expect a gassy or full feeling after a colonoscopy. Report any NEW abdominal pain or vomiting. -Watch for rectal bleeding. You may have oozing, but notify the doctor if you pass clots. -It is important to keep your appointments for follow up examinations because polyps can grow back. FOR SEDATION FOR 24 HOURS: -NO driving -Do NOT operate machinery such as power tools, lawn mowers, snow blowers, sewing machines, etc. -Avoid alcoholic beverages and drugs for allergies, nerves, or sleep. -Do NOT stay alone. Do NOT leave your child unattended. -Do NOT make important personal or business decisions or sign any legal documents. -Eat solid foods and drink liquids in smaller amounts than usual until normal appetite returns. If you should experience an upset stomach, liquids high in sugar content (soda, Lennox-aid, non-acid juices) are recommended. -You can resume normal activities tomorrow. FOLLOW UP Please call the office and make a follow up appointment to see me in 6-8 weeks. Metamucil Gummies 3 in the morning and 3 at night Call office to reschedule pancreatic elastase -Notify the doctor if you have any problems. -Office number [phone] Work Phone: Reason for visit NarrativeRED EQUINOX, ANTIGEN PROCEDURE TESTNoCitiSent Montnets Other Rewmdk for visit NarrativeNEEDSNEGATIVE, RAPID COVID TEST FOR PROCEDUREDecisionlink Other Summary Purpose Family History Relationship Condition Age at Onset Recorded Date/T fang father Heart disease Unknown Advance Directives Advance Directive Response Recorded Date/ Time Advance Directives No January 07, 2018 3:47pm Advance Directive Response Recorded Date/ Time Advance Directives No January 07, 2018 2:47pm Chief Complaint and Reason for Visit Chief Complaint Diarrhea, Constipati on Reason for Visit Diarrhea Chief Complaint Diarrhea, Constipati on K86.81 Reason for Visit Diarrhea Chief Complaint Diarrhea, Constipati on K86.81 fatty liver Reason for Visit Diarrhea Additional Source Comments INFORMATION SOURCE (unrecogn ized section and content) DATE CREATED AUTHOR 08/24/2021 [employer] [facility] DATE CREATED AUTHOR AUTHOR'S ORGANIZ ATION 05/09/2023 [facility] REASON FOR VISIT (unrecogniz ed section and content) RAPID COVID FOR PROCEDURECOV ID TESTFEVER BODY ACHES SORE THROATBODY ACHES, HEADACHE, FEVERCONSULT -DIARRHEAlab ordersPOSTING SHEET ORDERClinicalCt Scan/Creon scriptPatient here for follow up colonoscopy Care Teams (unrecognized sec tion and content) Team Status: Active Member Role Status Dates Irma Burt , DO Primary Care Provider Active Team Status: Inactive Member Role Status Dates Shun Hill MD Attending Provider Active Irma Burt , DO Primary Care Provider Active Team Status: Inactive Member Role Status Dates Irma Burt , DO Primary Care Provider Active Shun Hill MD Attending Provider Active FOR RECORDS PERTAINING TO PATIENTS WHO ARE OR HAVE BEEN ENROLLED IN A CHEMICAL DEPENDENCY/SUBSTANCEABUSE PROGRAM, SOME INFORMATION MAY BE OMITTED. This clinical summary was aggregated from multiple sources. Caution should be exercised in using it in the provision of clinical care. This summary normalizes information from multiple sources, and as a consequence, information in this document may materially change the coding, format and clinical context of patient data. In addition, data may be omitted in some cases. CLINICAL DECISIONS SHOULD BE BASED ON THE PRIMARY CLINICAL RECORDS. [facility] [employer] [facility]. provides no warranty or guarantee of the accuracy or completeness of information in this document.
== END 2023-06-19 15:09 | disposition home or self-care (01) ==
LOC: NOMS 15:09
PROVIDERS: Visit Provider Obstetrics & Gynecology
DX: Z34.91 Encounter for supervision of normal pregnancy, unspecified, first trimester (principal); N92.6 Irregular menstruation, unspecified; Z3A.08 8 weeks gestation of pregnancy
CPT/HCPCS: 76817

== ENCOUNTER 2023-07-16 18:14 | Emergency (ER) | payer OTHER, SELFPAY ==
[2023-07-16 18:21] VITALS: BP 157/98; PULSE 93; RESP 18; TEMP 36.8; O2SAT 98; BMI 36.0
--- OUTSIDE RECORDS SUMMARY | 2023-07-16 18:23 | XMS_ITS | CCD ---
Author Name Unknown Address [address] [place] [address] [address] [place] [address] Organization [facility] Care Team Providers Care Email Specialist Name Role Phone Maria Guadalupe Powers Unavailable Aydee Hearn Unavailable Perla Márquez Unavailable Shun Hill Unavailable MD Shun Hill Attending Provider [phone] DO Irma Burt Primary Care Provider MD Shun Hill Attending Provider DO Irma Burt Primary Care Provider Shun Hill Admitting Irma Alicea Primary Care Unavailable Shun Hill Attending Shun Medellin Attending Shun Medellin Admitting Irma Alicea Primary Care Unavailable Shun Hill Admitting Irma Alicea Primary Care Unavailable Shun Hill Attending SAGAR Hernandez Attending Unavailable Medications Current Medications Medication Drug Class(es) Dates Sig (Normalized) Sig (Original) amoxicillin 500 mg oral capsule (2 sources) Penicillin-class Antibacterial Start: 07-26-2022 take 1 capsule by mouth every eight hours Amoxicillin 500 MG 1 capsule Orally three times a day for 10 day(s) Jul, Active amylase 190612 unt / lipase 88585 unt / protease 546042 unt delayed release oral capsule (3 sources) Start: 04-06-2023 take 2 capsules by mouth three times daily at mealtime Creon 59514-147084 UNIT 2 capsules Orally three times a [...] 11:00pm levothyroxine sodium 0.075 mg oral tablet (10 sources) l-Thyroxine Start: 03-15-2023 take 75 ug [...] 1 tablet by mouth twice daily Sutab 8655-223-587 MG 12 tablets the first dose the evening before and second dose the morning of colonoscopy Orally Twice a day for 1 day(s) Jan, Active predniSONE 20 mg oral tablet (2 sources) Start: 07-26-2022 take 1 tablet by mouth every twelve hours predniSONE 20 MG 1 tablet Orally 2 times a day for 5 day(s) Jul, Active sertraline 50 mg oral tablet (16 sources) Serotonin Reuptake Inhibitor Start: 03-15-2023 take [...] Orally Once a day for 5 day(s) September, Not-Taking 84 hr estradiol 0.27179 mg/hr transdermal system (4 sources) Estrogen take [...] viral communicable diseases Episodic Other gastrointestinal disorders (6 sources) Constipation alternates with diarrhea; Translations: [Other [...] classified] Onset: 05-01-2023 Chronic Other liver diseases (2 sources) Steatosis of liver; Translations: [Fatty (change of) [...] w conon 3 CT abdomen w con [facility] [address] CT Scan Report Signed Patient: Laura Alves MR#: [id number] 3 : 1985 Acct:[id number] Age/Sex: 37 / F ADM Date: 04/10/23 Loc: CT Room: Type: [facility] Attending Dr: Shun Hill MD Copies to: [...] Stan Owens M.D.04/10/2023 4:03 PM Dictation Location: [place] [address] Transcribed By: [facility] 04/10/23 7025 Dictated By: Stan Owens DO 04/10/23 1556 Signed By: 04/10/23 0147 [facility] HCG ( test) IA.rapi d Ql (U)Ordered By: Shun Hill on 03-15-2023 HCG ( test) Ql (U) Negative [facility] HCG,Urineon 03-15-2023 Beta HCG ( test) Ql (U) Negative Normal [facility] Comment on above: Result Comment: PERF ORMED BY: [address] [address] PATHOLOGIST A&P TECHNICIAN MARINA AYALA M.D. Performed By: #### U HCG #### [facility] [address] [place] [id number] [facility] Charles 03-15-2023 L Specimen: [id number] Received: 03/15/23 Status: BUSTER Fuentes Num: [id number] Spec Type: Surgical Subm Dr: Shun Hill MD Tissues: A Colon Biopsy (SURVEILLANCE BX) Procedures: Deepti CHILEL/Pierce L4 Age/ Patient Sex Location Account Attending Physician Laura Alves 37/F [id number] Shun Hill MD SPEC NUM: [id number] RECD: 03/15/23 STATUS: BUSTER ALFREDO NUM: [id number] SUMIT: 03/15/23 DR: Shun Hill MD ENTERED: 03/15/[address] [facility] [address]: SPEC TYPE: Surgical DEPT: S [...] The microscopic examination confirms the diagnosis. Specimen: [id number] Received: 03/15/23 Status: MADALYNSnehal Fuentes Num: [id number] Spec Type: Surgical Subm Dr: Shun Hill MD Tissues: A Colon Biopsy (SURVEILLANCE BX) Procedures: HE/2, Gross/Micro L4 Patient: Rick Alvesy [id number] (Continued) Specimen: [id number] Received: 03/15/23 (Continued) Signed (signature on file) Winston Donis MD 03/16/23 1737 Specimen: [id number] Received: 03/15/23 Status: BUSTER Fuentes Num: [id number] Spec Type: Surgical Subm Dr: Shun Hill MD Tissues: A Colon Biopsy (SURVEILLANCE BX) Procedures: DUY/2, Gross/Pierce L4 Patient: AlvesLaura [id number] (Continued) Specimen: [id number] Received: 03/15/23 (Continued) CPT Codes 18625 Specimen: [id number] Received: 03/15/23 Status: BUSTER Alfredo Num: [id number] Spec Type: Surgical Subm Dr: Shun Hill MD Tissues: A Colon Biopsy (SURVEILLANCE BX) Procedures: DUY/Yaz, Gross/Micro L4 Patient: Laura Alves [id number] (Continued) Signed (signature on file) Chin-Tyrel Donis MD 03/16/23 1737 [facility] SARS-CoV-2 (COVID-19) RNA NA A+probe Ql (Resp)on 01-16-2023 SARS-CoV-2 (COVID-19) RNA GEORGE+probe Ql (Unsp spec) Positive Amperion Other COVID Quick Testingon 2022 Result Negative Amperion Other COVID Quick Testingon 2022 Result Negative Amperion Other COVID Quick Testingon 2022 Result Negative Amperion Other COVID Quick Testingon 2021 Result Negative Amperion Other Consent for Treatmenton 05-21 Consent for Treatment [id number]#1.00CD:127 [facility] Coding Summary.on 05-28-2021 Coding Summary. CD:[id number]:[id number] Gh0bWw+PGhlYWQ+PE1FV UKxQ08lrMMeuH3DZ6lNO R2MEPQFUKYLPF8LIZ4hp KT1PHwkS2ClsjYb RwqvjJXzRG31IBn6ANN4 fKwjRGnglA1kaQDkV0c9 YfUkOC36hG30KSdkTOIi PbZ1XsGgjdpysNRk A0kyBhPbkBRjMtv+PHRh YmxlIHdpZHRoPScxMDAl MwJtbAfyOA1oCr8yIQSr LWNvbGxhcHNlOiBj q7voNSAyCRhwAE7enDzc D1QbrIG0YGHwo5d8Yx30 dHI+VTQoLIS6fMeoOQpv u508EkVcw1nxKMC2 qJTjDDokCKK2J33ni1Q7 KKBzLAJhVVV3eRZ5aR9g iUqkmtruV9WlhSBwTlT9 EFI3bFRpzR5dpFxa mtmcuB0wIjf+O80NCG7B VIJVJG5KVhd5G3SvNbar dHI+HR42VZQrTV19lAWu fNEju6iylGp5LtZq VMNoFCL6qLcxRTgmm4Hp NKCnK66urOCgv0W4TAIx wZnuaPVdJxBjwWM6vJ5l JUkhixkxa7ykqrjx Tsopc5kaoj39iP12Q01i PYwxSZNhEYZ7MTArWUDc xSrolh1luW5bHf0+IDxj f8iyz1voxVu2RuZw IMMainJldLgdOKE9a1Fg Tn80X6JkzLxnz3NbVur0 lf74zPMjw8X9lKJ1IBas GCCqjJ5uJMfkVbK4 IVMsNaHmhS02yWDrVSac Pt3nsNjweMvyXQ3cWWJs vbysLCOuxK5aKHXtlIHa dSasYW9pDATccjqy c379YhPxPRR6RHThwLOp G2GejV5zViFwNYDlYNWx N9IryGFyOBxsR327INgh DaL7ZJNjsyEnV6Qu PBQdsAwgJuD6u0R1Em0H i0LinnzsNDK3NGrlGXHr DbN1ZeHaLhR2M2YwJpf5 MYCdcHgvOO8kH8Lo JOOmmejzwewkjLL1OJXf UEDikH64eTUuGDcgZh8r g8M4p425XYVlDNOgnR95 Rp1rcBkwUKSsgIYS zS8vyzlvj7scychrAmCi ZEIyAVm6JVa7XIRpbIyx AzDrKGB1UwG1EID3bGVd wK7ekMygcfyczN2c Oyc+M01uzI6dODK5OCG1 mgcaVKEwyxHvPN16BQ23 G8PvDmsodQCdtFU+PGRp xoUbiRadMU7gMgHe z9ohv4YlYKihN6RkGZCd UJniHvf0PQFhDNW1aMG2 qW1pIVJhLLbbl5L7lIA1 C3AhbiQhsj4lt1zq DUDxKUgsW75ipEIsf5T6 CXObfWL6JHFfmGfsYnZu sO84Csd+XPZoaIxry0Ic Pukpi8ifr2wgmRg9 IjMwJSIgdmFsaWduPSJ0 b4XqTg84Z06iFAtyNHAa FHSeMNFpHXDlvEmfzy8h wP0tMk3+PGNvbCB3 oHB1fG2zATEpXbY6QLsb T692HqCotQTdJnlrw0be j8kivCo6VvUfTVWtpaNh dEonATS0o7FkYv05 J86eEGsiEPCwVFUhNAYc QHXxkDhzpn6krN6mVf8+ ZA0zb6yspi79yS10kUA+ DPXxRTH5yWdsCOxs ESWfyZ7iNRlcMcC9RMRj VgQtiB67oHViXRxzXu3h aHauhAmuSO9qOJXnvijt p307YfIzf2xgZAFl gFQcIFpoISQ3C92rc8J5 MFIaTXMhNWS5iXS0wA8t bGlnbjogbGVmdDsgdmVy gJskAHhhLWlwH828 IHRvcDsnPlBhdGllbnQg OrFsDPm8W7HyTbf0CWHq fThpDH7npIEpMRgxPw0r uMbsnHwjUB0wQPLm mskdu206LyJfe5uzPHBo wTEqDCksMOL1O66nw4U8 YGGnIDEmPGE2mZL0yF8k bGlnbjogbGVmdDsg qbNmkBzgEHkrZNkeE212 IHRvcDsnPkJpcnRoIERh kJT9FH25MU45gGUdh9X8 jZY2U3UnWDRafzkm ghcgxBE6UGSyPGEfpN06 Pj1awWhdJv2pSZXsQFA2 CKFgtKRqW9ZmzP6qYpRq QYLpKQNhM8FvoBNa MAemB143IHnuMyS8CRZr skKeQ6GhLSJplVyyKmE2 v6J8Uw1JQ6C3OT41EM63 mGOdk5W7pBL2Q8Zz LJZljgypdwleqKM6JOUe LXJshO33Sv9xpZxiGi4x HLToZRW3IXDgbBJnS7Yn bI4uOlLgVIEwETAv M1EzlKDsZQsaA651SBua LhN8SOEnyzNbH6LwAWGs gHwhYxU3d8T9Cc3EITw5 TK19IL35pQWeb2B1 eDI6V4KbRXFrvvadrjef nWD9KSKsIPRdgN09Zr1w lXfoEa8eSJErESA4SYYe wKDfZ5FdoK3sVnAf WJNmCVNcR9BlqWFjNXty E481KRbfZqS5MIXpkpKk J4FrNHVfuQmkOxD0h7P6 Os3REMKlEQ84IUP7 cNS4LY44KT89C8WnKiss dGFibGU+PHRhYmxlIHdp ZHRoPScxMDAlJyBzdHls NR9bSx3hNSNsCXPq wJnqgWBvQjVsb0snBQFk NXwiDQ6ybPzmF4GztQM5 OAVyf0c0Da26Z57uO2Vq dXA+OVPiuBQ3rRT3 sS0sMsAcNsD4KOtfH643 DkUmoZSbFetqc8adv9yx jDl5JvP6NJVcceZkoXqm CEY1a1ZtVs52H20b IHdpZHRoPSIxNSUiIHZh cInvff5bcR8sNd7+PGNv sQA0lRK1hL7hHnFnBuW0 QYrqX978YqCkoLWy Pkaib3glc7cisQb9RzGz AFWledZrfCjmNUM6e7Kd Pj57P2OyfMplk2FjJaq5 so42iUFpe9V7eBQ2 X5OmEMMzlthxgYIirRzs NB3iRYRscvecWQNgzO0v TUVuC6m1AsItZkM3XQco Y0NglwS4AVWciYKc KPtkMYX8V64tv6D5CZWk PXEiHAS7aIS3qE8aqCtb bjogbGVmdDsgdmVydGlj SFujSSvtI130KUUd gMgjWVZyuQ3tSBEviOUq eOtfPO8oCLPovcwdHjxZ YT0OZPIENqcmFAwLWYOB NLZOGB32LL46pFMj m7D5sDV1P7XoSZWkfduj ptvfoAJ4PHKlNRBeuM30 aVMuGIzeKs4is8P3o745 CJRjNMLtoA35Kw6q mXmoUGYjbIPWlN7lpisw r6utjxpaGfIcJCOqHJp4 EJw5TYWpcPgtTiVlIUI4 OnE9ATF2fKRfaV9o pPkvpvbdfQ9oUhy+MTIv SMpzARw2DRfpbLN+PHRk RKH6oDxfNHmgBDZopA1s RBOnY6g8IcHpIrL3 CNarU2MjGFDcgrpgMt32 qI9eFaMnGtO0XOxbS3Wj xiO4XDYxzEIoMVvuXYX2 T38by2I7WKYeUTPo AQM0tNC6hJ0abFczpjag bGVmdDsgdmVydGljYWwt MJccX028XPUqgCdxGwZ2 BNbvPFObMF74BI74 yHZai1K2fHA1S4PmNEVa uhgexsllnIK1WQMqAUTe iH95zGKqIRcnEt1fe8V7 b453BHChXZYguF14 Yq2glMusNGOjdKORdJ3r fpjuw4iqhrbdFgNcZIUf MXk4YTu1WDHilBlcWeMf CTE6XvP5KEB7pWHm vU7fjJzppjnanF5oAqt+ ByXpCIkmPR66LL15yMWv r0G6qFD2H5AxSQMnunwc gtmscOM8ODOeICEb nT38sFJiQLkfAt5tn3O5 p237NOWzLQDopI80Sy5w qVomFRClwKGVoG1ljasx s8hanmapBdUwQFEv MIk1YLm6CBNrkDvgZcOi PCM7DwB2ONC8bXEeoC5p jOkvsaorxO7hBdn+UmVj jYYxgD7rGZ53JH47 K6DgKbfgtJOkyCO+PHRh YmxlIHdpZHRoPScxMDAl YuXnaIlvZC7eNl4sFMBk LWNvbGxhcHNlOiBj e8imIGOtKQohFW1hrUza F8XzhRK7ANLiu5s7Ev68 P83wE1EslOZ+PGNvbCB3 hVZ7tP2fSbHoKeN8 LShzY495QrHezVZyJypv y8coo2znlPj0KwTwGYGq xpXfeKabEUA3s5EqZm98 K32pQGjdFLAkHFEz SYYqFRManArtya8unI9k Ii8+BZMhnMX5uRO1sT3w YxLkDbZ0ULcrZ029ZbFz sOYiCzorJ87yT8Vb dXA+LEOlXge3ZSOcpVwr RE3uxSTmRMtvTo9gRNE1 PqReYzXqEKshH2EvDOGa kkfpoohcePI1OIWf ZSLqhB42Dq6jzGhdHz3m QYGgHCX6RFRbyYXoW6Wp oJ0iLxBoTVRjRKXlN4Xv qRHxIRroC778IZfy ZvK0QZWivwBxJ7RbDRUj gNcxIkK5j8Y0Jv9RcMhd vASiHX3gJnKuYZd0P6Qk Hrz1CFTvqZsmDE2z fJEjZJqpHm9msTskhUqx PT8kZQXzljzjd786JyTx h4gfXYDiwLNnDFfuNEJ6 H96wn8W5XZSeRYVq NFF6kTJ8kL7qaMgplapc bGVmdDsgdmVydGljYWwt YMdnB746DMCdqYfwChTL Kvi6U2UmVfm5KKFj vMlzOJ2ppAOcEPpdKg2r uLibaVqjRQ5kYBFrgshh o175SyTos3luMEDzqFVu FPusNAG4R36xk1V6 CCJaPIVtMOM7xTX1yJ5z bGlnbjogbGVmdDsgdmVy dDfdLKtmGHreF705ZRId hYcqXc3GEev6H4Gv Piq7UWZjwRzeEQ6dkRSi IXhoFg4djJbahSblHR9r DDYvacctn924BkLbh0mr IDEwcHQgVGltZXM7 M68bb5R9GGYuMTMuQZD0 bDL2vP4buIxarbmuiQWq dDsgdmVydGljYWwtYWxp I785KIQfpUygPuRe eWVyOjwvdGQ+QF11cq96 C5XhIgkuXze2WVTwTMD7 iXS2dC3xYECjMFbih0V8 cPR5G9AhmvDlkp1c b2xs (more content not included)... Normal [facility] Priority Order-Juan 2021 Priority Order-STAT Comment Invalid Interpretation Code [facility] Comment on above: Result Comment: Rece ived Performed at: [facility] [place] [address] [facility] [place], [place] [id number] [facility] Mina Jones Performed By: #### S ARS-CoV-2, GEORGE, [id number] #### [facility] [address] [place] [address] SARS-CoV-2, NAAon 05-25-2021 SARS-CoV-2 (COVID-19) RNA GEORGE+probe Ql (Resp) Not detected Invalid Interpretation Code Not Detected [facility] Comment on above: Result Comment: This nucleic acid amplification test was developed and its performance characteristics determined by [employer]. Nucleic acid amplification tests include RT-PCR and [...] detected) result in this assay. Performed at: [address] [id number] PhD Shalom Gonzalez Performed By: #### S ARS-CoV-2, GEORGE, [id number] #### [facility] [address] [place] [address] Family Medicine Phone Visit - Telehealthon 05-22-2021 [...] 6 months ago. Has been using DayQuil smju-owv-edrwwlu with moderate improvement. Review of Systems Fatigue: [...] only communication with the patient located at [address] [place] [phone], with no one else. If it is [...] Patient verbalized understanding Ordered: Rapid COVID Antigen ([employer] [facility] [employer]) Telephone Est 5 to 10 minutes 67447 2. Fatigue (R53.83: Other fatigue) see above plan, rule out covid. Ordered: Rapid COVID Antigen ([employer] [facility] [employer]) Telephone Est 5 to 10 minutes 75515 3. BMI 27.0-27.9,adult (Z68.27: Body mass index [...] 1035F Telephone Est 5 to 10 minutes 66840 Follow-up With When Contact Information Irma Burt [...] Methamphetamines, Pre (more content not included)... Normal [facility] Comment on above: Result Comment: Sophie troalberally Signed By: Eleanor SKELTON CNP\.monique\Date and Time Signed: 05/22/21 12:59 EST Patient [...] height. This can be done either in [place] or metric measurements. Note that charts are available to help you find your BMI quickly and easily without having to do these calculations yourself. To calculate your BMI in [place] measurements, your health care provider will: [...] problems. ? BMI can be measured using [place] measurements or metric measurements. ? To interpret [...] 01/16/2005 Document Revised: 04/19/2018 Document Reviewed: 03/20/2018 [employer] Patient Education ? 2019 [employer] [facility] Physician Orderon 04-27-2021 Physician Order [id number]# 1.00CD:127 [facility] Coding Summary.on 11-04-2020 Coding Summary. CD:[id number]:[id number] Gh0bWw+PGhlYWQ+PE1FV YVbL48drAYxcJ4OO0xLS J8BIBIBWIOYRJ4NJH0ei KJ4DDydD7RafzCy AutyoOFfEO39LYw6AEH8 dHlzFGcfcY8cyPNeQ1e6 YlTtPI90kI51WOupBSJx LcA3WkNkinknrIBx O7kmZiRmsQNzUxk+PHRh YmxlIHdpZHRoPScxMDAl IrGtgDdmMM7wAx9oBHRl LWNvbGxhcHNlOiBj h4xzBWKiGNebEI6ydXnw L1CxcQH3NMLge8j7Vc40 dHI+BDYtAMW8hWizTVbv l138GoAnp3gsHIL4 fUWeXNadPWW5X02hs9O2 UOTlHJViWIH3gRB2hD2s aIrwfsljA6QnnKKnZjP8 XSK1zKGvsN4ubVnd rmogbT1vXye+A66UYQ7H BLFOCZ9OApz1T9ChIocc dHI+NU83PYLlCR02bRNj nCNxu5xkeUj9WhKz PYZwBDW2bKfyQIspc3Nd LBWqN36vlACrp3U1GFUn wYpvpBFvQwRlbPL9fI3u MPggfdgrs8qcmdsq Aibgd6lezz68vP86R35q AKxyHZRfNUV0QVBmTNAb oJyqxn9boB1wPx0+IDxj s4otk3yqxAq7SwRa MPFcqbDamDvxQBS7r3Np Ea49R0TewDhms7SaDrd1 cc14zCMrj9S7uGB3RVrw SQWtgX3gFVoqWiJ8 HHWsOvHdgI58sLEyXRze Nf5coYwpkCnfYF0aFBHh dqsuQDPxkT9yBLNgrLCr zGioYD6rKMTsktyk k021NsPfCFE3RFTawYTg Z2AhrL9uNzGsYKMoDGFl J2SlqQRuSNzvR715OYwf FdZ9GOIisqPiJ6Sk KEXljTicYpN4d5A7Nl7H c8RdbbjyOUV0SKjzCLL7 WkI8UrSxXnU5L5WmRye0 LKWzrYvpQD5kM2Jn CSDqjhiuzldwsRA8QPXr ZNYhkR78qRAmKWidZl3b m7E5u483MGEzPDZnoP51 Cm6lzXtbMUOycJWU hB6qbrmmr5pdhxqyMcAn AYZmXVt1NMi4HWRykSvz OfIkMSL7WqX6PQJ7oSWx wQ6ypNzdvttttE9k Oyc+C28bcZ0fDKN8EEU4 upoyQBPmktOuQW31MS94 V2NaFwwvbLCphNK+PGRp nfAbiVteLA9hGgMq r0jcs9DwYHyoZ4JfLLAv BVadVhw6VTGxDVL9uJH1 pL4cXVHnNYyav5U1zMP9 C8RnghMrck5pa2hv WAFcJGxnT61toXYpc2L8 KGArgFP2QMPfbPkoTpRl zM64Nsd+HFGflRjdc9Dx Lbqmw7whj6rflXi8 IjMwJSIgdmFsaWduPSJ0 x1MvQb04O03rIQolVIPr PHMgEXLfUXVxyTtcdn9j hP9vPs2+PGNvbCB3 iBG2cO2aBLCbFuW2JWwh L280TpQguDFcQbutt0bs w8dglZs5EwFjXZKnpqWq fTwkADJ0p5DrBh71 G66kHBhyCIVtNUWuEQTc DIUjrObmut9wnE1jNr5+ HN6kh6otps57jL79qBE+ ASHcDTD1rTjxWHrx CMLxmX9dLIseDhM9DFBx KfRrpP78wCVpLZuoPd4q mBjrsWmrXL2kEWZpgnri e662RrRfj0ydVWXg gAZnEZcjYKQ7A29jy9M7 FXZeQUVhRSF0sSB9zZ4r bGlnbjogbGVmdDsgdmVy bOzgYHwyXLinA606 IHRvcDsnPlBhdGllbnQg HlOyKWc1L1XlShy7ZBQb pIwqBK8uxJDeEKbiZx9n bSkqxTokXO6zGKBj ldmbt777ThIuc2gtJYRz rMOsXLceMHT7E88bq5D1 HZBlEOUcKPT5zTC1oQ5z bGlnbjogbGVmdDsg yzXqqDxsVZsjSJxjW050 IHRvcDsnPkJpcnRoIERh mTF7UE52MK43uBDyr9Y8 sBK5H0LkXLOhhtjm elwdqLV3MMAxEXIsyT16 Gm8iaIrsCy9gWYMqHYH9 COAzwMYjZ0XmrR9pGtXp AQHaTTItG2VldBPz VOpbC958POphLvZ7RTSz diKkN2YmQXSkcMvzQnC0 a9E5Ri5QT3T1XE05AQ40 nOJtm8U8vCB1B7Ri IXNigxgbouhkrTH6KTSh YXMamC74Ef4giJikBt7q UGGsMSP2WBUngWUvS7Zl sZ0aGmDsJIGbHOAr T5DkcIFmIOdnL566PRml PnV8WNPqbcJgS0WrOYGp nHxeVdE2i3L6Az3VQXw1 HS59AY40iNTsp4N9 kVC1A5OxWOVtmoabgnyv nOL0FDPtOAHfmY23Mu4o wGnsZc0gEFUjJVI1FGHm rCHqX0GjmQ2xUyOl HWKeUSSoJ7NweGHrKFih Z353QJzhHuD3JJPexeVh W7LdVOBsfUpzWqN8q4S4 Xj6XBTAtLI20OMR9 tIQ4JA12CZ38H4HuOtdx dGFibGU+PHRhYmxlIHdp ZHRoPScxMDAlJyBzdHls MJ1hNa2lOSHvGGLj iXqtxBViEaGyx8wbCZRl UDfzTJ0haXtoS6NbuVJ1 TBGuk6u1Ez19O50pT9Pk dXA+HRBxaYT0aKA3 hZ3eInNtYvU2UFclD314 PtEsnAHxPeyvv2buo0mc kWv4BeX3WYWcniIaeOzj IKT8k5QwTn66X98n IHdpZHRoPSIxNSUiIHZh vBbjjj2luV9eSr1+PGNv pGS2gFZ7bP0nZbYjNbP0 BLqmO351EvNrcULe Nmnfo0emn8cfmMw5EmLd GJXwpdXhcBdgVTC3n6Iw Fn13E3AltYeoy4RaSnr9 hj54tNClm6N3cRL7 C4FcADBkedpkiQGlwOvb RR7mQXAbuabqFPEvnA9b USEnR3v2CsZmZvO4PNtp O9LnadF7OBUktFFr NMfgGEM2V23yf7X5QTGm EBQhKCE9wOJ0hY0ovYwt bjogbGVmdDsgdmVydGlj KJidEVltS772QATu sGeoBFXirR5fYCIkmUHn nUrtTW7dTFHdkejoGxiJ RV8LIAPQIafzJAwAVVXW HYTKWV11TR02fMXb n7Z3eVW0N9ZiRICooggu pzxjwOU7DDSiHFOhkA62 kDNsMMesPe3hr7B9x580 TTAgABRkaS78Tu9j jSacBQDknJFEeB2enphd p6vkojddJiYxTSVuJTb6 GRi7ZWIneLndCmKaDDI3 OiK6XGJ3wUPhsY9c rEqvhcvysP8aUjr+MTIv KAmiBPk1VRrhvTG+PHRk KHP7jEufGEaiVHGpfD2a OTCcC2c3YzSiGzH9 IEjtG0ZsBIEphkaoWz35 gF9hCiPsGgO2FLuoN0Gb sqR2SYEgnCPzTYlrPDV3 W47eg5S5DJVqLACl DWJ7xWB6sW7auQlgaiva bGVmdDsgdmVydGljYWwt EFpaT907MTSgiYtuVnJ7 MYqkPUDvDP55PX01 bDQuq6B4kUK5V8HtQBXi pybixxskmNG3DCClDTVi uX65mMUtUSkaKx1yu2A0 g824YMJzNSKqoE46 Iz8rgLsqPIJopYIScV5j htpek9icfcpdErPkOWTp TUq0LBx6JCNkwBavFhRd RPI9DlZ7HUD0uTMc jR2dtLdfhpdibM1gIhk+ BgFhFKxxBC37PM30tREh j5B7gSG6R4DtFUUuxgyn ojlohTQ3NFOxCZFq bV13nGMmEArhCk6xn4W1 p432SAHsCRGaeD29Fe0h qEwpSDIokLZQuE1hdxwq e9iwlutwPnToFNEe OIp9BYl5VLOytJnbIcAj ASA1OtC4GNO2vSEpcD1s uMgsbnaptG7xYcl+T3V0 uXA5uRBjwWhpaBI+ NP50xy77L4EsLiudKnv4 NBPiDVV1cXH2qF8wQXJy KTsmp1A0fEY2X6DxbvTy qk6hq2srRCXjDCte F25kgYGfl9I6OIHzcSU0 FQAlaVwpMeTrkG23Uce+ NFKndQkmb7MzYafvc0aa g5rbzXc8EqLoLXOg qzKsiFpcZAC3v5QlVt64 B89lSUsoYIMrJLKqLDAc MWXxqNxitk4sfM5kNi7+ CSZimUO5nGW9iZ7m GcIjEmR3ZLrzO218FlSn pWFsYulyd6umj1bzdVm4 IjIwJSIgdmFsaWduPSJ0 x3StBl83H8IsnEuv m4PhNwm8vi14nASja9V0 hFE4L0XcSXXdhhicwECo kJzxEF8sIGBhvxxwFJCt hZ3rECOmQ7n2HcMm JhI4UKbkA4RwkdE5RRYd zEFtARNleADFiN4letxs m5vqavfjUuPdDCWeHDd3 KSb8JNGfxEgcQjZz DLY3XhN6ZBW5lCJelY5k nMpwmzieeS9aHml+UGh5 z6iajSTlRB0mlQN9VF84 FA54mYJyq3M6wRN7 C9AwXZRjqkejakelhRK1 MNYxQXMzdS56Vm4kkVno Ty6xBAYoYVX6GPTknIZc S2SytJ1hAnOiIOIr DQVnK5HzqHRwSVjbE886 RWaxMoR2TZDfprEsP4Wy PXQuyUtgWxF5u1L4Bj6S LW45HZ78BJ76oJSa g6Q6yEP0D4BfPXIpjmou cdoxuLH2ECMtXIXusG67 Fv8qcSpxMv3wCCZuCCG1 HHMogFJiY9NhxL2j PpYhNBTdAQZgP8EveQYi DQgaQ493HCanQcQ8QZLe utKcM5UlJVCzeJozDaE3 y9Q4Dm7CTh37GV40 DK55eZHzt0H2fGS4Q9Eg YRQsyyxwqxzqkGN4QDVy LJYulM63Tw3opOqbDg7j KOFyHDW1BYEcaSYe I2XqvA1dXeDqJJArHKSt Z2XhfIQdGNjrM441ANyc YgR3GCYueuGgB6ZmJFCi sUroYmR5v3G1Lb0P FZludmm6G5EkIqybqBU+ ZI78SOWjZC72zSEyiBUc g3bjnXj5AxRzTURdTOO7 hDgbUIilx3YuUOVi Y29s (more content not included)... Normal [facility] CT Chest w/ Contraston 10-29 CT [...] 300 Contrast amount in ml's: 100 Normal [facility] Coding Summary.on 10-28-2020 Coding Summary. CD:[id number]:[id number] Gh0bWw+PGhlYWQ+PE1FV VIiW12huVOgxU1PL4hRY O0SWNGAKMDNRL0IQV8rc YR2TIeeJ2EdkxZj AlclyGZlGN53EDo8FZD5 jKkxOFfowB9zxTCeK4k1 GqRjSR06aQ58SNvnOJCi VaJ1KhRourrdyAFq B3ghPmLwwYDeTwp+PHRh YmxlIHdpZHRoPScxMDAl AmRunEfaOA0nGl1bLFUd LWNvbGxhcHNlOiBj r5txEYCdCCchLG0ecHgs P2MipAQ2BPHec9j2Sn22 dHI+YEItFQU4zShsQPvd q790KpYod8mtHVW2 aWUvTIcyCBY7T54rt0N1 UPLhPLUaSHL6sYF7qT4l kZethxlfC4SwwUHoRvR1 IED0qDFhjF9bgShi eenuqO9sNav+E09MWC7O JLXZJF9TWbz6C7CwMuvs dHI+AG67CFWjOF81fXFh vKBwp4jkqGu3PgZq RGAlMNM0qRcoKEzyh9Pt KPAgA62sqHPub9O7MCAn aWvihTGrMnKqfUZ1tJ4x CYnyrmgul8zxpffk Njjqa6pwhe06oQ20M99y KDlhDSCcGKL1USJoLQTx sBjykx9geA2dQt8+IDxj w1xzw4pomFy9GxTq GTWvwoBrrEfhGWR1c5Qb Cl56I3RzdZehy7KzXff8 kx50dZMbt5V8hMR1DEyi TNOwfZ1zJFtuBxN5 IBLcBzPbuK98xLCxKRkc Mz4kzZpxvVjkQX1xSBIt noakQBXlrZ2hRKUyzMJe oEniRF6nLXBlbozy d064SnVaOVN6MJWldXSu I2WvgY2sQrTkACLfNDZw C2QsoDRoNHteB976MNqv ZqI0VYHwqxQdX6Br AMHqiDhgYtM9z3O0Fd5O v1BugxnwOUD7ATtzYCK5 QfSwVbTnCeC2O3EkYvc3 AWHjtPoyDA2gR6Io OUPnpnkugqpagUC7QWMl MNHfpT57zBFhNItrJj2q i1F3d500DCVvYDAuvD75 Ej8gdBlxAPBweZQZ qO9pbnpwk8cbcbfjKnEw PSIxHWb4ZHm6UOYhgGfw DoUwVMQ4CxL0QTT9rJDs zH3arOfiymgfzM3h Oyc+O54stF2jADI1GIT5 pqnbSMUalpVhAK44PM59 K1BgOdlrfIHyhCZ+PGRp lnCfyXkxAS5jLhQs a6vfm7SuBSlpI1GfCWUx TEuyLeq5ITByPGQ1yOK0 zY6tQVIjMYsib7A3mQV2 B7PtnaGqdk6mv6fz RWYlJTcmM51dhZIro4F6 YDKdwFH9JBXtxPfoEsKx iZ84Fdb+BBNknQvuw4Mh Muefo4gmq0kttYv8 IjMwJSIgdmFsaWduPSJ0 o2TaKm92P20xHHrsSJEr QENpYZZpZCWrpRrtmt9x sD4gNx7+PGNvbCB3 hEL6lD2hUXExIpC6UQrf X501TqTblVPuVhglx1pz q3bxmRv6QdZrNMZfhgFo kTeqDJJ8v4AhFc67 X18aHBrfQBYzGZWoVCPq MSAqdAcdig8lfM3pFo7+ SP2gt4kuzx57rG07sPU+ NIPgDEK0sIjwNAvp DXGdhZ4mCUexSvB5KNPt PoLuuC48bDJkJEmwKx1u fFmjeEkjCM7mAIZlaqqg q903GfBsw2pbFOWa nCBuDKppHHG1C72pz7B0 ADHgLHKoMBZ6gHX2pU5h bGlnbjogbGVmdDsgdmVy wVkiASklHDxkD120 IHRvcDsnPlBhdGllbnQg CuLcKEd1V3OsAdy0LKMr sRdcDV9ffOCxXZvrDa4y nRhboCkjII0fLMJn czjal956CiDxg0idXSFo uPNkGDflXFN2I01hq8N6 NOGwKFMqBHV6hNQ8uE4p bGlnbjogbGVmdDsg qyZllCvdYXutRGszN939 IHRvcDsnPkJpcnRoIERh mUD2FP04UB76xYQll6C0 pXH4R9UrCZHkrztw ctbawKJ5EOTcXFQbaB13 Pf2msLphIn3lIKChWOW5 ETSjxXHaW9XzuG2sRwBf CCMsKVHxY9GmfBCe VGhnM860UBdxTkF0WCOr vmKwO8NaMRFxyRjgOrD3 s3L1Xl3TJ6A2CZ51ZK19 lGJjc1Z2dJA9V1He GJKywzhrfizmmED0WPQx YIJxxR09Md6dmDmjMf3c GCVbEXJ1TCBhnRZnG7Gr dI2wNqVkGMElIWVl P5MfiTOaAZniH276KDoe GbM0FJUlviGaK0XkEIDw lAjhHzW5u6W9Am2KDRf3 UV87NY75wXFpg6H8 mCV2O7FdNLRrgreqqobs kUS7XQKaOEJntV74We6i hXasYg8wUYXjYAS9EBHj yLZdT6PdcT6jJvVv EDUzZICrV1GixVZbAJif V393ZTgrYcJ4RRQdhfTk L2VvYDTkjYojUoW5p8U2 Th7ZQTQuUO43UOW4 hPA3GZ61BK19N0RfZhec dGFibGU+PHRhYmxlIHdp ZHRoPScxMDAlJyBzdHls IV1qHv5xMKNnMTYt iSdpySVbXnFzk1fwDBVo CRlgGM5izNwwM2LygNZ0 AZRla8h7Ou41T40cC7Bs dXA+OVPmvRR7tIW1 xF4mRsOmXcV9NWriT377 TjEhjFMgNttts8rtr5wm bWg1SpK2GHGrcaYniNzq PHS6o5BnLi59B30n IHdpZHRoPSIxNSUiIHZh qXwekl8fiV2gRy6+PGNv sRZ6fRZ2yF0xFwWlZkC6 XIgzX077BgHpcIAd Mggrb6ilx4yhlWy1ZjDx IFSprkCzaEthFEV8e2Ka Kb92B3IuoWixs9EsZmx6 or81hOXhp2W3dKU3 P0JdBFIcrananHEsbMjd RR7cAYQjwxfrHKHriV8q UWPoH9b8GqPpRmQ0ICdj L1LiwuH5COZqqSAq DOtuWVT3U64zj0O6XOVy OEQgRXO2uZQ4sM1roOic bjogbGVmdDsgdmVydGlj BLzyRXtdP031ZGWh fVqyUKTtxU4bHWPjqCUp jVhmMD0jBWMadsamOqkM MQ6ASPNOFvbeVDrKAVYW XOJDVW82TX29tOCv u2B0jVV5L9XjSFWhrqqs phrknCP0KTUeFOAvuR13 wTSwACvtHk9jk0R4t806 FILzZEKodC43Dg1g bXadDOHccNGFxC6hwcji z5nwlkvjXeLiVLGzNTk1 ZQi1OAFaiVhoToDqPUE3 OaU8NJR8wUWzyT4s vIdsoohpcL9lLlo+MTIv QWnmLLt1OIqldTD+PHRk IRC0wSobBLxtIRCiiQ2i YLLmE5t9BwKlGvG4 TZdcL4NlWUNyrjroAc30 xY8tYuTrSgZ3XHwqI0Mp xmN1MZRaeHAxNJdnVEI3 T80kf1F1CCLgEDFf YVY1eCF5eN9hqXnlhdql bGVmdDsgdmVydGljYWwt MBjzT904WMExiSwuIlT7 JAnrRSPmLH94GS82 pGGnc3Z4vNS6F2PxSDCg ouzlkrsxzRE9JJVpAPFe yU85sVZaDKpdIa6am0W8 e312LMYxLQPzqB86 Fb9hjZapDGDqqHOFzL5q jbzev0qbgergZgDkDDAh WIb9ZAw3PDChvAoaWySr XHG6OaF4WUG5oFTp rE4chChwmlsefN0lQtx+ PgSqSIucBH40VW22vGLy m4Q7vSQ4Z1FwQZEuacnj fratcVA2JFOaRFOx gI00aYLfSDntIa4bz1T6 g375FUVnCDPrxJ87Mi8z lCdsNNNsbPAOzA1yyjkj s5hrpgcbZnWrLMMx MWd4MIi9SVIbiOdmIuFp KBX3HyO5XJW0lFXdaE1c pMimphstwA9eYoa+T3V0 oZU8hFPwpMofhIC+ ZA57tw04T2OqBimnNjb7 LWYsOSZ6cJL7rT3eNLCf HJakd6C4zQY2N7PbhnAa wo6rf9xgKOWzGUgz Q63mcZRcc1J9KEDvmZY8 YOSawUoiCaFliW83Vfp+ NKKjxJgwz9OdLgcoq7mo k3quxDa9KoMhDRCw hpNgnOcyVOS3a2CmYz38 A13lTVnxTHOiZNCgMEXq HVLqhViywh6paD1cYo3+ MBIgsZM2eVJ6gC4y KpLxGqZ7LYlmB997RwTw hJIdYslct3qts4uhuIw8 IjIwJSIgdmFsaWduPSJ0 v7HzZm17E5AqpFyb h5ZgJdv9gz31wRBam4K8 yEJ8E8ToNGYstyowpEZc vWroVF3jCTZtlnacPQUn eY7yGHDxR7u7KqWn StN5WKlaZ2NrudN7FPWm gQQzASAbmIUEhK7dtepy s9sxjxypWoXrIUKuOLc0 EId6IERzqUelIzDv PRS8LuW3WOB4lLAhcH4g iYpyzeaprG2kFfs+UGh5 s3uojDFvAL6ugQO7XH34 KO37sCRvn1D8qWI0 W7TlBXTrhnlzlgwbpBM2 QNLoGFXhtF01Fa9fwHsf Us4zTWKwOFO4SGNueHBj G2IpdL5vOdBpAKHk WLQmF5CyaTJqXHdbA875 JTyxLkO3TJMymgBjD0Fh GUGoiZkcGsU2s3Y8Fq1N MO23CO76MB73iSNs z9T7hZW9J2DvSXChsknn svdvuYO1TOBlSCQvuH58 Bb6zdBzmEv5qMGJfPZS1 LFFwoIKoW6TkpI3i YhZzQWTcBDClQ2SeyUBg YUxaU302KNcoQqK2TJGj qfEvB4EbBMZqqWjdErT5 a0P2Fo6JSn76CC40 LQ25eRQab6Z5lRL7S4Hm ABMjuqgclqlhaPN5FHKa AXLddV27Px3vwFzfWa0n RDWyAAJ1HDEtcPRf L4FaeW9rDvCoTHFeYVFn S0XqeLPzJSkzG344KLya TrW7RDBzjeQyT1ToULZq tFjiAxX6t6S1Of4E TVjdhue6K2LrYqdjpCU+ WK49BWMiKZ64mVJgoNEw u6ixkWe3RsYdZSXpPLL0 eOqlKIafx2BjMGVy Y29s (more content not included)... Normal [facility] Consent for Treatmenton Consent for Treatment [id number] #1.00CD:127 [facility] Physician Orderon 10-21-2020 Physician Order [id number] #1.00CD:127 [facility] Consent for Treatmenton Consent for Treatment [id number] #1.00CD:127 [facility] Physician Orderon 10-19-2020 Physician Order [id number]#1.00CD:127 [facility] XR Chest 2 Viewson XR Chest [...] Ball M.D. Transcribed by: SHAYNA Technologist: BECKI [facility] Vital Signs Date Time Vital Sign Value Performing Clinician Facility 06-12-2023 13:00-0500 Body height 170.18 cm Shun Hill Other [facility] 06-12-2023 13:00-0500 Body mass index (BMI) [Ratio] 35.24 kg/m2 Shun Hill Other [facility] 06-12-2023 13:00-0500 Body weight 102.06 kg Shun Hill Other [facility] 03-15-2023 12:29-0400 Diastolic blood pressure 89 mm[Hg] DO Irma Burt Work Phone: [facility] 03-15-2023 12:29-0400 Heart rate 70 /min DO Irma Burt Work Phone: [facility] 03-15-2023 12:29-0400 Respiratory rate 16 /min DO Irma Burt Work Phone: [facility] 03-15-2023 12:29-0400 SaO2% (BldA) [Mass fraction] 100 % DO Irma Burt Work Phone: [facility] 03-15-2023 12:29-0400 Systolic blood pressure 132 mm[Hg] DO Irma Burt Work Phone: [facility] 03-15-2023 08:54-0400 Body height 170.18 cm DO Irma Burt Work Phone: [facility] 03-15-2023 08:54-0400 Body weight 90.71 kg DO Irma Burt Work Phone: [facility] 02-08-2023 14:45-0400 Body height 170.18 cm Shun Hill Other [facility] 02-08-2023 14:45-0400 Body mass index (BMI) [Ratio] 34.92 kg/m2 Shun Hill Other [facility] 02-08-2023 14:45-0400 Body weight 101.15 kg Shun Hill Other [facility] 02-08-2023 14:45-0400 Diastolic blood pressure 80 mm[Hg] Shun Hill Other [facility] Other 02-08-2023 14:45-0400 Systolic blood pressure 131 mm[Hg] Shun Hill Other [facility] 01-16-2023 10:35-0400 Body height 170.18 cm Aydee Vaughnmond Other [facility] Other 01-16-2023 10:35-0400 Body mass index (BMI) [Ratio] 35.2 kg/m2 Aydee Vaughnmond Other [facility] Other 01-16-2023 10:35-0400 Body temperature 98.3 [degF] Aydee Vaughnmond Other [facility] Other 01-16-2023 10:35-0400 Body weight 101.97 kg Aydee Vaughnmond Other [facility] Other 01-16-2023 10:35-0400 Diastolic blood pressure 66 mm[Hg] Aydee Nadiya Other [facility] Other 01-16-2023 10:35-0400 Respiratory rate 18 /min Aydee Nadiya Other [facility] Other 01-16-2023 10:35-0400 SaO2% (BldA) [Mass fraction] 98 % Aydee Nadiya Other [facility] 01-16-2023 10:35-0400 Systolic blood pressure 105 mm[Hg] Aydee Nadiya Other [facility] 09-23-2022 10:45-0400 Body height 170.18 cm Aydee Nadiya Other [facility] 09-23-2022 10:45-0400 Body mass index (BMI) [Ratio] 35.13 kg/m2 Aydee Nadiya Other [facility] 09-23-2022 10:45-0400 Body temperature 99.2 [degF] Aydee Nadiya Other [facility] Other 09-23-2022 10:45-0400 Body weight 101.74 kg Aydee Nadiya Other [facility] Other 09-23-2022 10:45-0400 Diastolic blood pressure 80 mm[Hg] Aydee Nadiya Other [facility] Other 09-23-2022 10:45-0400 Respiratory rate 18 /min Aydee Nadiya Other [facility] Other 09-23-2022 10:45-0400 SaO2% (BldA) [Mass fraction] 98 % Aydee Nadiya Other [facility] 09-23-2022 10:45-0400 Systolic blood pressure 125 mm[Hg] Aydee Nadiya Other [facility] Other 09-04-2022 11:20-0400 Body height 170.18 cm Aydee Nadiya Other [facility] Other 09-04-2022 11:20-0400 Body mass index (BMI) [Ratio] 31.32 kg/m2 Aydee Nadiya Other [facility] Other 09-04-2022 11:20-0400 Body temperature 97.8 [degF] Aydee Hearn Other [facility] Other 09-04-2022 11:20-0400 Body weight 90.72 kg Aydee Hearn Other [facility] Other 09-04-2022 11:20-0400 Respiratory rate 18 /min Aydee Hearn Other [facility] Other 09-04-2022 11:20-0400 SaO2% (BldA) [Mass fraction] 99 % Aydee Hearn Other [facility] Other Encounters Encounter Date Encounter Type Care Provider Facility Start: 06-20-2023 End: 06-20-2023 ambulatory Shun Hill Other [facility] Start: 06-20-2023 Telephone encounter Shun infante [facility] Start: 06-19-2023 End: 06-19-2023 ambulatory SAGAR BUTLER Not Available Start: 06-12-2023 End: 06-12-2023 ambulatory Shun Hill Other [facility] Start: 06-12-2023 Office outpatient vi sit 15 minutes Shun Hill [facility] Start: 05-01-2023 End: 05-01-2023 ambulatory Shun Hill Facility:[facility] Start: 05-01-2023 End: 05-01-2023 ambulatory DO Irma Burt Work Phone: [facility] Work Phone: Start: 05-01-2023 End: 05-01-2023 Patient encounter procedure DO Irma Burt Work Phone: [facility] Work Phone: Start: 04-10-2023 End: 04-10-2023 ambulatory Shun Ashraf Liz Facility:[facility] Start: 04-10-2023 End: 04-10-2023 ambulatory DO Irma Burt Work Phone: [facility] Work Phone: Start: 04-10-2023 End: 04-10-2023 Patient encounter procedure DO Irma Burt Work Phone: [facility] [place] Work Phone: Start: 04-06-2023 End: 04-06-2023 ambulatory Shun Hill Other [facility] Start: 04-06-2023 Telephone encounter Shun infante [facility] Start: 03-20-2023 End: 03-20-2023 ambulatory Shun Hill Other [facility] Other Start: 03-20-2023 Telephone encounter Shun infante [facility] Start: 03-19-2023 End: 03-19-2023 ambulatory Shun Hill Other [facility] Start: 03-19-2023 Telephone encounter Shun infante [facility] Start: 03-15-2023 End: 03-15-2023 ambulatory Shun Haleormack Facility:[facility] Start: 03-15-2023 End: 03-15-2023 Admission to same day surgery center DO Irma Burt Work Phone: [facility] Work Phone: Start: 03-15-2023 End: 03-15-2023 ambulatory DO Irma Taverase Work Phone: [facility] Work Phone: Start: 02-26-2023 End: 02-26-2023 ambulatory Shun Hill Other [facility] Other Start: 02-26-2023 Telephone encounter Shun Moncada naresh [facility] Start: 02-08-2023 End: 02-08-2023 ambulatory Shun Hill Other [facility] Other Start: 02-08-2023 Office outpatient ne w 45 minutes Shun Hill [facility] Start: 01-16-2023 End: 01-16-2023 ambulatory Aydee Nadiya Other [facility] Other Start: 01-16-2023 Office outpatient vi sit 15 minutes Aydee Nadiya [facility] Start: 09-23-2022 End: 09-23-2022 ambulatory Aydee Nadiya Other [facility] Start: 09-23-2022 Office outpatient vi sit 15 minutes Aydee Nadiya [facility] Start: 09-04-2022 End: 09-04-2022 ambulatory Aydee Nadiya Other [facility] Start: 09-04-2022 Nursing evaluation o f patient and report Aydee Nadiya [facility] Start: 07-12-2022 End: 07-12-2022 ambulatory Perla Yulisa Other [facility] Other Start: 07-12-2022 Office outpatient vi sit 5 minutes Perla Yulisa [facility] Start: 07-07-2022 End: 07-07-2022 ambulatory Aydee Nadiya Other [facility] Other Start: 07-07-2022 Encounter for other preprocedural examination Aydee Nadiya [facility] Start: 07-07-2022 Nursing evaluation o f patient and report Aydee Nadiya [facility] Start: 02-03-2022 End: 02-03-2022 ambulatory Maria Guadalupe Powers Other [facility] Other Start: 02-03-2022 Office outpatient vi sit 5 minutes Maria Guadalupe Powers [facility] Procedures Date Procedure Procedure Detail Performing Clinician Start: 05-01-2023 Ultrasound elastogra phy of liver DO Irma Burt Work Phone: Start: 04-10-2023 CT of abdomen with contrast DO Irma Burt Work Phone: Start: 03-15-2023 Colonoscopy DO Irma Santa trevzaheer Work Phone: Plan of Treatment Date Care Activity Detail Author Start: 05-01-2023 [facility] Start: 03-15-2023 [facility] Payers Date Payer Category Payer Private Health Insurance [id number] 2023 Self-pay [id number] 1985 Unknown [id number] Medicaid [employer] [id number] Private Health Insurance [id number] Unknown [employer] [id number] Unknown [id number] Unknown [id number] Unknown [id number] Social History Date Type Detail Facility Sex Assigned At [facility] Start: 03-15-2023 End: 03-15-2023 Tobacco smoking status NHIS Ex-smoker (finding) [facility] Start: 1985 Sex Assigned At Female F [facility] Goals Date Patient Goal Desired [...] and minimal scaring, this will be reviewed [facility] 11-17-2023 Evaluation note* Encounter Date Diagnosis Assessment Notes Treatment Notes Treatment Clinical Notes Mar, Exocrine pancreatic insufficiency (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) [facility] 10-31-2023 Evaluation note* Encounter Date Diagnosis Assessment Notes Treatment Notes Treatment Clinical Notes Feb, Alternating constipation and diarrhea (ICD-10 - R19.8) Feb, Fecal urgency (ICD-10 - R15.2) [facility] 10-30-2023 Evaluation note* Encounter Date Diagnosis Assessment Notes Treatment Notes Treatment Clinical Notes Feb, Alternating constipation and diarrhea (ICD-10 - R19.8) [facility]* Encounter Date Diagnosis Assessment Notes Treatment Notes Treatment Clinical Notes Feb, Alternating constipation and diarrhea (ICD-10 - R19.8) [facility] 09-21-2023 Evaluation note* Encounter Date Diagnosis Assessment Notes Treatment Notes Treatment Clinical Notes Jan, Alternating constipation and diarrhea (ICD-10 - R19.8) WORSENING DIARRHEA AND CONSTIPATION OVER THE PAST YEAR. DOES HAVE SOME NOCTURNAL AWAKENINGS WITH THE DIARRHEA. CAN GO 4-5 DAYS WITH OUT A BOWEL MOVEMENT WHEN SHE IS CONSTIPATED. WILL ORDER IBS WORK UP WILL PROCEED WITH COLONOSCOPY [facility] Other 08-29-2023 Evaluation note* Encounter Date Diagnosis [...] no improvement in 2 to 3 days [facility] Other 2023 Evaluation note* Encounter Date Diagnosis [...] no improvement in 2 to 3 days [facility] 04-17-2023 Evaluation note* Encounter Date Diagnosis Assessment Notes Treatment Notes Treatment Clinical Notes Aug, Contact with and (suspected) exposure to other viral communicable diseases (ICD-10 - Z20.828) [facility] 02-22-2023 Evaluation note* Encounter Date Diagnosis Assessment Notes Treatment Notes Treatment Clinical Notes Jun, Contact with and (suspected) exposure to covid-19 (ICD-10 - Z20.822) [facility] 02-17-2023 Evaluation note* Encounter Date Diagnosis Assessment Notes Treatment Notes Treatment Clinical Notes Jun, Preoperative clearance (ICD-10 - Z01.818) [facility] 09-16-2022 Evaluation note* Encounter Date Diagnosis Assessment Notes Treatment Notes Treatment Clinical Notes Jan, Contact with and (suspected) exposure to covid-19 (ICD-10 - Z20.822) [facility] Other Evaluation note* Diagnosis Onset Date Resolution Status Diarrhea acute [facility] Work Phone: Evaluation noteNo [facility]NoM[facility] [place] Other History general Narrative - Reported* Type Description Date Medical History ANXIETY AND DEPRESSION [facility] Other Hospital Discharge instructions Additional Instructions DISCHARGE [...] if you have any problems. -Office number [phone] Work Phone: Reason for visit NarrativeRED EQUINOX, ANTIGEN PROCEDURE TESTNoMoses [facility] [place] Other Reason for visit NarrativeNEEDSNEGATIVE, RAPID COVID TEST FOR PROCEDURENoMoses [facility] [place] Other Summary Purpose Family History Relationship Condition [...] section and content) DATE CREATED AUTHOR 08/24/2021 [facility] DATE CREATED AUTHOR AUTHOR'S ORGANIZ ATION 05/09/2023 [facility] DATE CREATED AUTHOR AUTHOR'S ORGANIZ ATION 06/20/2023 [facility] EPIC REASON FOR VISIT (unrecogniz ed section and content) RAPID COVID FOR PROCEDURECOV ID TESTFEVER BODY ACHES SORE THROATBODY ACHES, HEADACHE, FEVERCONSULT -DIARRHEAlab ordersPOSTING SHEET ORDERClinicalCt Scan/Creon scriptPatient here for follow up colonoscopyCREON TO [facility] Care Teams (unrecognized sec tion and content) Team Status: Active Member Role Status Dates Irma Burt DO Primary Care Provider Active Team Status: Inactive Member Role Status Dates Shun Hill MD Attending Provider Active Irma Burt DO Primary Care Provider Active Team Status: Inactive Member Role Status Dates Irma Burt DO Primary Care Provider Active Shun Hill [...] BE BASED ON THE PRIMARY CLINICAL RECORDS. [employer] provides no warranty or guarantee of the accuracy or completeness of information in this document.
[2023-07-16] MEDS: BENZOCAINE 30 ML, lidocaine HCL 15 ML MM (20:29)
[2023-07-16 20:33] VITALS: BP 133/86; PULSE 82; O2SAT 99
--- NOTE | 2023-07-16 20:36 | ED.DENTAL1 ---
HPI - Dental/Oral General Chief complaint: Dental/Oral Stated complaint: toothache Time Seen by Provider: 07/16/23 19:46 Source: patient Mode of arrival: walk-in Limitations: no limitations History of Present Illness HPI Narrative: 38-year-old female presents to the emergency department with complaint of dental pain. Locates to the right upper dentition. Onset yesterday with progressive worsening into today. There is associated tenderness not onto the tooth, but along The right maxillary region of her face. Has had problems with dentition in the past. Denies any injury, fever, chills, difficulty swallowing. Quality: hurts Severity: moderate Timin day, constant, worsening Context: Normal setting and activity Modifying factors: pain worse with palpation Associated symptoms: As above Related Data Home Medications Medication Instructions Recorded Confirmed [id number] 2 cap PO TID 07/16/23 07/16/23 36,000-114,000-180,000 unit capsule,delay rel (Creon) sertraline 50 mg tablet 50 mg PO DAILY 07/16/23 07/16/23 Previous Rx's Medication Instructions Recorded penicillin V potassium 500 mg 500 mg PO QID 10 days #40 tabs 07/16/23 tablet Allergies Allergy/AdvReac Type Severity Reaction Status Date / Time No Known Drug Allergies Allergy Verified 03/24/23 22:00 Review of Systems ROS Narrative CONST: Denies fever, chills HENT: +dental problem, facial swelling, ear pain.? Denies congestion, mouth sores, rhinorrhea EYES: Denies eye discharge, eye pain SKIN: Denies color change PFSH PFSH Social History Smoking status: Former smoker Exam Narrative Exam Narrative: Vital signs noted Nurses notes reviewed CONST: Nontoxic, well appearing, well nourished, in no distress.? No diaphoresis.?? HENT: normocephalic, atraumatic.? Normal hearing.? Normal appearing ext ears, canals, TM's.? No nasal discharge.? MOUTH/THROAT: + tenderness to tooth circled in pic below with surround gingival tenderness. No surrounding swelling, fluctuance.? No gross facial swelling, palpable abscess, trismus.? Patient maintaining own secretions.? Moist mucous membranes, no increased oropharyngeal erythema, edema, exudate.? No submandibular or submental tenderness.? No tenderness or elevation of the roof of the mouth. EYES: clear, no injections, discharge NECK: supple, no lymphadenopathy NEURO: A&Ox3 SKIN: warm, dry PSYCHIATRIC: normal mood and affect Constitutional Vital Signs, click to edit/add: Last Vital Signs Temp 98.3 F 07/16/23 18:21 Pulse 82 07/16/23 20:33 Resp 18 07/16/23 18:21 BP 133/86 07/16/23 20:33 Pulse Ox 99 07/16/23 20:33 O2 Del Method Room Air 07/16/23 18:21 [facility] Teeth and gingiva image: 1. tooth causing pain Course Vital Signs Vital signs: Vital Signs Temperature 98.3 F 07/16/23 18:21 Pulse Rate 93 H 07/16/23 18:21 Respiratory Rate 18 07/16/23 18:21 Blood Pressure 157/98 H 07/16/23 18:21 Pulse Oximetry 98 07/16/23 18:21 Oxygen Delivery Method Room Air 07/16/23 18:21 Temperature 98.3 F 07/16/23 18:21 Pulse Rate 82 07/16/23 20:33 Respiratory Rate 18 07/16/23 18:21 Blood Pressure 133/86 07/16/23 20:33 Pulse Oximetry 99 07/16/23 20:33 Oxygen Delivery Method Room Air 07/16/23 18:21 MDM - Dental/Oral MDM Narrative Medical decision making narrative: This is a pleasant 38-year-old female who presents to the emergency department complaint of dental pain since yesterday. He has bad problems with this tooth in the past, but worse today. Pain has been uncontrolled. No associated tenderness, radiation of the pain into the right maxillary region, right ear. Feels like there is some associated swelling. Denies any fever, chills, difficulty swallowing. On arrival, afebrile, vital signs are stable. On exam, nontoxic, somewhat uncomfortable appearing patient in no gross distress. Locating pain to tooth as circled in picture above. There is associated tenderness to the tooth, the joint gingival region, right maxillary region. No gross swelling. No palpable abscess. No trismus. Patient maintaining own secretions. No concerning findings on examination of her ears. Heart regular rate and rhythm. Lung sounds clear and equal bilaterally. Patient was given dental paste in the emergency department and will be sent home with some. She did get some relief from the pain. She will also be sent home with Tobi Mcclellan Encouraged to contact dental in the morning for close follow-up. Disposition ? The patient was discharged. Plan: Patient will be discharged to home. Condition at time of disposition: stable and improved ? Advised to follow up with her provider. Advised to return for any worsening and/or development of new, concerning signs or symptoms PLEASE NOTE: Portions of the medical record may have been produced using electronic apparatus engineering technologist and may contain errors with respect to translation of words which may not have been identified prior to finalization of the chart. Medical Records Attestation: I reviewed the patient's medical records. Discharge Plan Discharge Chief Complaint: Dental/Oral Clinical Impression: Acute facial pain, Odontalgia Patient Disposition: Home, Self-Care Time of Disposition Decision: 20:44 Condition: Good Mode of Transportation: Private Vehicle Prescriptions / Home Meds: New penicillin V potassium 500 mg tablet 500 mg PO QID 10 Days Qty: 40 0RF No Action sertraline 50 mg tablet 50 mg PO DAILY Creon 36,000-114,000- 180,000 unit capsule,delayed release(DR/EC) 2 cap PO TID Rx Instructions: administer with meals and/or snacks Instructions: Toothache (ED) Stand Alone Forms: Portal Instructions Referrals: ROLA SANTIZO [Primary Care Provider] - 1 week Discharge Date/Time: 07/16/23 21:10
== END 2023-07-16 21:10 | disposition home or self-care (01) ==
PROVIDERS: Emergency Provider Emergency Medicine
DX: K08.89 Other specified disorders of teeth and supporting structures (principal); Z87.891 Personal history of nicotine dependence; R51.9 Headache, unspecified
CPT/HCPCS: 99283

== ENCOUNTER 2023-08-15 20:06 | Outpatient (REF) | payer OTHER, SELFPAY ==
--- OUTSIDE RECORDS SUMMARY | 2023-08-15 20:10 | XMS_ITS | CCD ---
Author Organization [facility] Care Team Providers Care Television And Radio Repairer Name Role Phone Maria Guadalupe Powers Unavailable NadiyaAydee anderson Unavailable Perla Márquez Unavailable Shun Hill Unavailable [phone] MD Shun Hill Attending Provider DO Irma Burt Primary Care Provider MD Shun Hill Attending Provider DO Irma Burt Primary Care Provider [phone] Shun Hill Admitting UnavailIrma Elliott Primary Care Unavailable Shun Hill Attending UnavailShun Lee Attending UnavailShun Lee Admitting UnavailIrma Elliott Primary Care Unavailable Shun Hill Admitting UnavailIrma Elliott Primary Care Unavailable Shun Hill Attending UnavailSAGAR Bowser Attending Unavailable SAGAR BUTLER Attending Unavailable No Pcp, No Pcp Primary Care Provider Unavailabl e Medications Current Medications Medication Drug Class(es) Dates Sig (Normalized) Sig (Original) amoxicillin 500 mg oral capsule (2 sources) Penicillin-class Antibacterial Start: 07-26-2022 take 1 capsule by mouth every eight hours Amoxicillin 500 MG 1 capsule Orally three times a day for 10 day(s) Jul, Active amylase 592201 unt / lipase 85902 unt / protease 732452 unt delayed release oral capsule (3 sources) Start: 04-06-2023 take 2 capsules by mouth three times daily at mealtime Creon 39901-876338 UNIT 2 capsules Orally three times a day with meals for 30 days Mar, Active aspirin 81 mg delayed release oral tablet (1 source) Platelet Aggregation Inhibitor, Nonsteroidal Anti-inflammatory Drug take 1 tablet by mouth in the morning aspirin 81 mg Take 1 tablet (81 mg total) by mouth in the morning. 0 Active Desogestrel / Ethinyl Estradiol (3 sources) [...] 11:00pm levothyroxine sodium 0.075 mg oral tablet (11 sources) l-Thyroxine Start: 03-15-2023 take 75 ug [...] 1 tablet by mouth twice daily Sutab 3355-974-762 MG 12 tablets the first dose the evening before and second dose the morning of colonoscopy Orally Twice a day for 1 day(s) Jan, Active predniSONE 20 mg oral tablet (2 sources) Start: 07-26-2022 take 1 tablet by mouth every twelve hours predniSONE 20 MG 1 tablet Orally 2 times a day for 5 day(s) Jul, Active sertraline 50 mg oral tablet (17 sources) Serotonin Reuptake Inhibitor Start: 03-15-2023 take [...] 5 day(s) September, Not-Taking 84 hr estradiol 0.62216 mg/hr transdermal system (4 sources) Estrogen take [...] Resolved: 02-03-2022 Viral infection (1 source) COVID-19 NEGATED: Highlighted row has been ruled out!Unclassified (1 source) No known active problems 12-30-2020 Results Test Name Value Interpretation Reference Range Facility TSHon 05-25-2023 Thyroid Stimulating (3Rd Generation) Hormone/ Tsh 2.[address] [address] abdomen w conon 3 CT abdomen w con [facility] [place] [address] [place] [address] CT Scan Report Signed Patient: Laura Alves MR#: [id number] 3 : 1985 Acct:[id number] Age/Sex: 37 / F ADM Date: 04/10/23 Loc: CT Room: Type: [facility] Attending Dr: Shun Hill MD Copies to: [...] SPLEEN: Unremarkable PANCREAS: Unremarkable ADRENAL GLANDS: Unremarkable KIDNEYS:Unremarkabl e AORTA: No abdominal aortic aneurysm identified. RETROPERITONEUM: No significant retroperitoneal abnormalities identified. MESENTERY:Unremarka ble SMALL BOWEL: The small bowel loops are nondistended. COLON: Unremarkable PNEUMOPERITONEUM: None PERITONEAL FLUID:None BONY STRUCTURES: Unremarkable ABDOMINAL WALL: Unremarkable CT/CT abdomen w con IMPRESSION: No acute findings. Fatty hepatomegaly. Impression dictated by: Stan Owens M.D.04/10/2023 4:03 PM Dictation Location: [place] [address] Transcribed By: [facility] 04/10/231602 Dictated By: Stan Owens DO 04/10/23 6376 Signed By: 04/10/23 160 Normal [facility] HCG ( test) IA.pati d Ql (U)Ordered By: Shun Hill on 03-15-2023 HCG ( test) Ql (U) Negative [facility] HCG,Urineon 03-15-2023 Beta HCG ( test) Ql (U) Negative Normal [facility] Comment on above: Result Comment: PERF ORMED BY: [place] [address] PATHOLOGIST ANESTHETIC ASSISTANT MARINA AYALA M.D. Performed By: #### U HCG #### [address] 03-15-2023 L Specimen: [id number] Received: 03/15/23 Status: BUSTER Fuentes Num: [id number] Spec Type: Surgical Subm Dr: Shun Hill MD Tissues: A Colon Biopsy (SURVEILLANCE BX) Procedures: HE/2, Gross/Micro L4 Age/ Patient Sex Location Account Attending Physician Laura Alves 37/F [id number] Shun Hill MD SPEC NUM: [id number] RECD: 03/15/23 STATUS: BUSTER FUENTES NUM: [id number] SUMIT: 03/15/[address]: Shun Hill MD ENTERED: 03/15/[address]: MEKA TYPE: Surgical DEPT: S ORDERED: HE/2, Gross/Micro [...] The microscopic examination confirms the diagnosis. Specimen: [id number] Received: 03/15/23 Status: BUSTER Fuentes Num: [id number] Spec Type: Surgical Subm Dr: Shun Hill MD Tissues: A Colon Biopsy (SURVEILLANCE BX) Procedures: Deepti CHILEL/Micro L4 Patient: Laura Alves [id number] (Continued) Specimen: [id number] Received: 03/15/23 (Continued) Signed (signatur e on file) Winston Donis MD 03/16/23 1737 Specimen: Received: 03/15/23 Status: BUSTER Fuentes Num: [id number] Spec Type: Surgical Subm Dr: Shun Hill MD Tissues: A Colon Biopsy (SURVEILLANCE BX) Procedures: Deepti CHILEL/Micro L4 Patient: Laura Alves [id number] (Continued) Specimen: [id number] Received: 03/15/23 (Continued) CPT Codes 79197 Specimen: [id number] Received: 03/15/23 Status: BUSTER Fuentes Num: [id number] Spec Type: Surgical Subm Dr: Shun Hill MD Tissues: A Colon Biopsy (SURVEILLANCE BX) Procedures: HE/2, Gross/Micro L4 Patient: Laura Alves [id number] (Continued) Signed (signatur e on file) Robbi-Tyrel Donis MD 03/16/23 1735 [facility] SARS-CoV-2 (COVID-19) RNA NA A+probe Ql (Resp)on 01-16-2023 SARS-CoV-2 (COVID-19) RNA GEORGE+probe Ql (Unsp spec) Positive [employer] Other HIV 1&2 AB/AG Screen (P24 AG )on 12-13-2022 HIV 1&2 AB/AG [facility] Hepatitis B surface antigeno n 12-13-2022 Hepatitis B Surface Antigen Negative [facility] No Panel InformationOrdered By: Rae Agudelo on 12-13-2022 [facility] Rubella IGG immune statuson 12-13-2022 Rubella immune IgG <0.90 NON IMMUNE [facility] Syphilis Total(Unknown Syphi lis Status)Ordered By: Rae Agudelo on 12-13-2022 Syphilis Non-Reactive [facility] [facility] COVID Quick Testingon 2022 Result Negative [employer] Other COVID Quick Testingon 2022 Result Negative [employer] Other COVID Quick Testingon 2022 Result Negative [employer] Other COVID Quick Testingon 2021 Result Negative [employer] Other Consent for Treatmenton 05-21 Consent for Treatment [id number] 318#1.00CD:127 Normal [facility] Coding Summary.on 05-28-2021 Coding Summary. CD:[id number] RBe9kHl+PGhlYWQ+PE1 UJKIwQ50vmMJocA7YI0 oUMB2TOABLRCIOEE0AU P9tbDB1ZMziS8DeifPp JheldSUoVW62RXq1QBJ 1hDzzWOtbeM0gqLUuV4 e8CrZaJM74cX93NAvpE ODtYzQ9HxDsjkwybIFf N4pgUdLjqUCzOfj+PHR hYmxlIHdpZHRoPScxMD KiWdNerHitAS5iXr5bW GVyLWNvbGxhcHNlOiBj v2ioXLHhTRagHC9gnKn oU1OzrTY9XZHvs4p0Ik 48dHI+ZNEtDCY7qNedC Zbbw176VvOdc6rmWEL5 kIYhBLtgYYT3O27il4B 7UNPsTUGcYLI7wAO1oX 2boOdkdsjiE6LxjHHwK uZ3DHI2mMSojP5daThb bhcfpP4kWud+J23VBA3 LLORHUP8QTlv9A0BxNp wvdHI+UN01YRKsHM18e RKjcBNso7lgpLj9XfVs ZKVcQXH5hBcmGAkxq3S yIALaA51yzDFut7B9EP AyoRdkyADfIiCosZY6p G6nLSxibxurg3nqfori Vkhby9cryl80dT35J58 kQDyaMXGnTNX1TJAvLC NzwYtoil9tuP2qSx0+I Rejy9tms9yysOn9SsJi UUKvehUsrRxvVFQ5v9Y qIs21M0WypGmnv9YwRn f5ji06kUXki3F8xBD0G UdlGGCheJ7hHGkqYkG6 OYPwDjNuwS84hXYsAJq jVx2cbIlkpZfcCZ0jSB LaquzpXSPdoJ5lDQEup EAebYwwGV2dERRgzute i219LmHePLF3PRXiwVK kZ6AyrM5bRdTmBVXxRK OcA7KylKFbZNmrQ638Z VdaPcE8PEWmquJrZ5Bw CBOesFavJyH9k5Y4Dl5 Ls8PkxsjzYFW2YDecCW GrMuF7WmBnTgT5V3GoX jg5PDNpgOyeIU4gQ4Dk UNIgiwaxjqmlcTQ1ZCX wSAFzzR52lOIiWExtKt 6on3E4q481NJVcSFAnf N11Ms4asBwpBEKmxFFW bL5xnrwlk9qkgrbxRvH rGKPoMHd9PKm9WPOhfZ izCfUaQWC1TeO4UIU3g TDutC2xxCamwyjfiA9w Oyc+P69ixC7vWVO0RXG 2lmslAAGsavZqYK80YY 07G0PaGkwnuGGuyOI+P CLufrNueJhwEP6dHpJf t8olo2VnRFctW9NxHXE zSSplMgt9MEAbKWZ3xA O9vP1bRACeUXtiu5C8p CO3E2DpsnAuld7cn8gz OQPjJHbpS26crDCcy6X 6CSWhkZW0SQThxOuxYr HjlT60Bmc+PGNvbGdyb 4HnCmgvk2gvo1wecLt9 IjMwJSIgdmFsaWduPSJ 2v7QyNx63Z89tQVbgRF RoPSIxNSUiIHZhbGlnb m1usW7hZx7+PGNvbCB3 zOK6rH6iTSCdUbH1DTr gY583TiZbeKOsEnutc1 vqw1hhhUu6GpSuOVVmg tTopTrbWUU0p9SoCb57 J13pDWjaODIeJKHtXCZ ySUWwvIzbax0gsN7pBm 8+UW1vg7jsjg08yR00h HI+FXRrWWT3nWzbAPci KVYwaZ6rKXfkVgJ0XTE jNyXaxN00dBMiPUrwSe 5yqNrmtWeiOR8aLPRgx zngk733DtUtb1sxULBo vDFoSMurETQ7N59ig0C 8XXXtWEVvLDN6gVB0oN 1hbGlnbjogbGVmdDsgd xIhqQmlBCmyYGpmP140 IHRvcDsnPlBhdGllbnQ dMnHgSUl1G6LcJaz7HI ElnRrfJG5qjOBvHKdtY x7ksQttwOgkPM3nDBOc bktpe951PhPxw8qpJDU ujAHcZPzuETI3E19zs4 A6KTWsILHyOGU3yDD5p S0kzJcaedcmeUVlmVgf nsZaiMhzJNqbXGbdD79 6IHRvcDsnPkJpcnRoIE CscOJ5TR71PI37zWRpe 8Z3pRE7V0HiTXRsheog xllohUX5BQCcHGEhnR9 2Ve3yhMjwOq9eEBZlHB T3VWKypNMrS9WwlA6eS yYaPOWeMRLoV1ZpxKWt ZQxoE486CBycSgB4OEM wtuSpL1StWDTmyBhuUx Z3m7K8Dk3IQ6B1XQ86E E81zJXux5J1dPP2O9Cz SNOwlxcnjiepxVD4YFO yIMRymV15Ej4bsSfuIa 5zYVTmYRH8XBXxiISnM 6WoaF8oLuOqCRUfQPUh L6SbzCGbQLlqN228ZGe nOzQ6CVZwqdEoM8YsXY MflVgkEbW6a8D2Qi9XK Yf7TT48OL10xOVvm8Z8 eON7G3GaROScmvggoxd bvLC0BXDqPZAliK06Lp 8pkDzkXq1lXPByPWT1R JXkkKDyS7VlyC9xSeTp HOQeQGTnB5NkhCDtDQl gA227RAgsQmN6GDQmoy DqE3VkKYAuaOvcLsN1f 9B4Li9CDGXlTQ23IBE1 rJC3MS91UR40A3WeUxz vdGFibGU+PHRhYmxlIH dpZHRoPScxMDAlJyBzd DpaFA9hFa4xPICnGMFy fReibBSiZiSxa8hvSKH eVKxdLA0egUqcK5BnoX F7SHWyk6j5Rv05K67sT 3JvdXA+CCFxxRI7hCD2 wQ8mAeReQaC6BVfiK85 1PgDvjDGqTknrq9mty1 reuAm2UaJ9NNVihrShq HlbVHO5e1RrZk33U15w IHdpZHRoPSIxNSUiIHZ mrLolwc7gjU6bQi8+PG XjvUG2xEZ6bA4zVoMfA eV4INgbD406RhJbsOKf Pxeoy7iwe0tmdKy7SfN qZOPuuqDkeLnpNXJ0q9 MtEo45X7QbfYbbn5TdR wr8sh81eJNfq3S2pJW3 S1HxGUPtgozppRUbdNe zLV7iKIQpbwfpNWYbqX 9vHTLlJ7w7DuKrIsS9R IghI2HpuzA1JDQuaESa PSxuAIG8M62pn9B4JDJ oNWHyTGS4gNC2rM0hkL lnbjogbGVmdDsgdmVyd TbzAEghXCuxY575NUZb wTcpEOHoqX1qEBUctQU abJpbAL8mVKZvzlmyDd xNND9FSEOIZlgoNTyLU BDYDPBIYS00WX00yGKi k1T6sXY4J9QdRHSxvey oolajcQV5CQMfFJUsmK 89vRWrYDhuYb8mi2Q5l 079LBNoIEMhqR91Eo5u cNvyAFNaeKFEeH1lnlk vl4espiomVcBmDRZpJX q4QGk4XABqzMvnWcOhC CD7WnZ3YSH7iGRfwY3q wSlwbmobtY4jChv+MTI yRGirMHu6QZlydTH+PH WfQWP9nQuxQQxsFELsa V7uJNPvP1i4OtHmUlQ6 OFokK0PuISAqbpamVu4 4bQ2jXdYvUrL7RIrlH1 OycbR2KGDspULpXEoxT YF1Z36aq6N9SZOgACXw DZN9xLW2jK2lcTxakpj gbGVmdDsgdmVydGljYW vtANxtK755ZOWurJpsI hR8VJngNVToCN01SL81 wVBxh8G3uTD4Q4YtVMP oqmwvtwiusYU6GFAfTX ShoV65kBJaEHokHa4jr 3J3d154BUYzQOHxfG32 Ht6tfGnzSLYfnAYBtV9 qnxlnu4mtmuvcFdJdIT IiQKn9MYg3THSheZurL zXtXNJ2FwG4BRT7nBZg qY0qxEvpnkugnJ2dPui +HvMbYTvlDT83WK26pO Uoh7I6iPR0W8ZmHNGag zblblmteNH0TBMpFTGz lH90mJQyUMgbAd8gm3F 0z832LRTcPAEsbQ17Oi 0ntBlvNYGpdGWMoQ0jj bsqc6awrpmdHfIbDSAi LHb1ADn0UOPjbEpfFzH qFCA1TvD2ZYN3sEPruY 1wqPvpaxwejD4iHvn+U iNeqSYcvO5qEO97SM06 O4WwZlnhwMJlrYY+PHR hYmxlIHdpZHRoPScxMD BiXoCotLnsGS3oTt3vN GVyLWNvbGxhcHNlOiBj v1lfGOXqZYlwZZ1uoMz xH1MrdGM2WENvc3y0Rw 01F74yT0OqrLJ+PGNvb DV9yVG4cH9tMqKlCyA4 QJgrM427HrEezRYzGir oq3hpp6lroKb4TmQdNP TshzQxoGycRYC8x6TgH n23D14xTUmaJGUlTDDl ZHSfVZEzdLcakj7gaM8 wIi8+WMDqxVH0xHL6pX 3bBeQkWrF0PWqbZ608C wFglSBhXfkiL63xE0Vw dXA+DEQnXqg6ACGskFh sWC0flATwYEerPe6mUE Q7JgQmZlFnJVhuU9ApV RCsidkwvyyymSZ9SUNg FOIoqK78Ip7rpVmnRh2 hWKTbOIX8XLCplHLlJ9 HgzL8ePbEtHCBsPEAyN 8BmgKIjYGuvZ887ZIgw DkG2IZCqcaXxY6CrJLG qpJceNuJ6x9E4Gv2VxA rzvMMqAV2pAmRlTNe6M 6PjFjl9MDJwaFayKH4h sZOxJMajJy4prPbdsTp jUN8oBBSmkgvow378Tq Mic4xpONDyeQBjHNbqB UP7O38um1M5WLSgCQDc JBT3dSU9yC0miDjkimd gbGVmdDsgdmVydGljYW wpRWbbS125ALCjqMffM gTGSdh6B6NoRap4HTHh xQqwOF0taQQgZEnvDk2 mlLqyxTpiYX8cQFItyp nhi386IbOze7gzJPToo RHiEOseMNG1V89gq2J5 MUKaXERbPAG7bRM4iU1 hbGlnbjogbGVmdDsgdm OeaUbkIBldVKjlV002M BAvtXfjLz4YHxg2M0Hn Jmv2CIJlpGaiGB9oxNH aFQjfGj8yxHdiuTrlBH 6sSPXruaeht816EbJyx 2xnYVWsrGApOYvpOAO0 E49dl9B6AOUwYQFzBRD 5bZI0rM8naYqxzuvxqI VmdDsgdmVydGljYWwtY WwdM651YSUzwDzcRsBl eWVyOjwvdGQ+WK49cq6 0Y9HwBoqdGus7KTEuKW V2rOY9bQ4eHKUpOOyzk 3H6dPW7A9WmpmMvui3c b2xs (more content not included)... Normal [facility] Priority Order-Juan 2021 Priority Order-STAT Comment Invalid Interpretation Code [facility] Comment on above: Result Comment: Rece ived Performed at: [facility] [address] [facility], [place] [id number] [facility] Mina Jones Performed By: #### S ARS-CoV-2, GEORGE, [id number] #### [facility] [address] [place] [address] SARS-CoV-2, NAAon 05-25-2021 SARS-CoV-2 (COVID-19) RNA GEORGE+probe Ql (Resp) Not detected Invalid Interpretation Code Not Detected [facility] Comment on above: Result Comment: This nucleic acid amplification test was developed and its performance characteristics determined by [employer]. Nucleic acid amplification tests include RT-PCR and [...] detected) result in this assay. Performed at: [facility] [id number] PhD Shalom Gonzalez Performed By: #### S ARS-CoV-2, GEORGE, [id number] #### [facility] [address] [place] [address] Family Medicine Phone Visit - Telehealthon 05-22-2021 [...] 6 months ago. Has been using DayQuil proa-ohz-xsaxiyq with moderate improvement. Review of Systems Fatigue: [...] only communication with the patient located at [address] [place] [phone], with no one else. If it is [...] Patient verbalized understanding Ordered: Rapid COVID Antigen ([facility]) Telephone Est 5 to 10 minutes [id number] 2. Fatigue (R53.83: Other fatigue) see above plan, rule out covid. Ordered: Rapid COVID Antigen ([facility] [place]) Telephone Est 5 to 10 minutes 02569 3. BMI 27.0-27.9,adult (Z68.27: Body mass index [...] 1035F Telephone Est 5 to 10 minutes 69111 Follow-up With When Contact Information Irma Burt [...] Methamphetamines, Pre (more content not included)... Normal [facility] Comment on above: Result Comment: Elec [...] height. This can be done either in [place] ([place] or metric measurements. Note that charts are available to help you find your BMI quickly and easily without having to do these calculations yourself. To calculate your BMI in [place] measurements, your health care provider will: [...] problems. ? BMI can be measured using Dominican measurements or metric measurements. ? To interpret [...] 01/16/2005 Document Revised: 04/19/2018 Document Reviewed: 03/20/2018 [employer] Patient Education ? 2019 [employer]. [facility] Physician Orderon 04-27-2021 Physician Order [id number] 8#1.00CD:127 [facility] Coding Summary.on 11-04-2020 Coding Summary. CD:[id number]:[id number] KVv6pWl+PGhlYWQ+PE1 NWIHgY42jbAWhjB8DM4 qRBF4KUVELQENIXG5WX M1ggNL6BGkuV1KnvyGd UryiaLYgEZ92VIb2EAJ 6sDroHZnuaR3ssCPdR0 q8BvWeQO96gX68QXgwE UXoOlE2GkYplwixjEOq X1zjHaSkjFJfPbw+PHR hYmxlIHdpZHRoPScxMD OpInHmdWdtSB8pUd4oY GVyLWNvbGxhcHNlOiBj r0dxLHIqTQgcOK3vxVk zS8PqsYY9SGTxt5d2Dj 48dHI+INJvPZI4uBzhU Juct341TcIei6wqXJC5 mTTyXHoxUJW6A11an1E 4WDWvLBNaFVZ2iIW6wY 3raDwsvzgiW0YpkWPvC fO1QHO0qBEwrG1msGhq ftptlD6jVso+K59HYS3 YINTLQQ6RZks1J6PoEg wvdHI+HJ53PBOkJR22s JPplZJax5bsjMj9EhQy OQZrEJM7kXkiJYzye1I vJFThG12knDLow9M9ES JjkIufoBMjAcKmmNU9t N5aAJdczqfdf0jzgrtr Owhmd0ejds39rM54F57 tSNulKAUeEER6PWAiLX BwfPeqav3yeH1bNr9+I Prfd4cpw8whfCr4VhTn FVHarsYruXffAKB4w0X uJc03H1UgwWlum6QnGv v3dc06fKDzo7F0dSF5Z CfkIXQfvI8tDYvjUhE9 KJKlHiUixY90iTPiZUb fJo2blEvltGfhGN1bDU FfjxoxTMCliC9iOAVxm RPhpJykMN9tWWJdexsj j131TiCbCPI2HDVvjMH xC9NvxQ4iFgEmSNDuTB OuC3TfvRXhNIbiI859A IfrVrN7JFYgylLqJ4Rc JTFyoTdeXnC2j2W0Mp0 Mf7EnygjqAAU1EDcrNQ V0TzI1IiYyOgK8G1DxQ dh2HOEtbByhCG4lX2Hz SJDbubplnnsroOT4LRE uFCGatK28yOBxQYdsGg 6go3Q1a698NTGqCQAgw B44Od7glHuiBPJdmETH lP8ksvciy5pymckcCsC ySITwXYr1ALq0CPIozT afKaXcDYV6MaA5SIO2k AFgqZ4njVwltlhccI7s Oyc+X50znC8lIXL8TVT 0nkoxIKBebvKpNE02VX 76A5VkWetujTTvxJF+P ENcgzFdyQxfJH2aMwAc h8dqo8ZpLRquE7QxOWQ dNSzxUbr0PDUuRMF0cM S8dY4wWMAbNErnk1X6v TG2B9KscpNggf6fv7dj EIEuJEekN25ydTPst2W 2KXSnrUH9YRRwqPmdBl TvkB64Bhq+PGNvbGdyb 8PiUqcen6zge9lpsYa3 IjMwJSIgdmFsaWduPSJ 2j5FbYn15G14pWRhdGL RoPSIxNSUiIHZhbGlnb d9uzV8oHp1+PGNvbCB3 iNC0qV9rQZHuSjY1JUg rT280ZkNqdCVdDgujw7 xaw4gmzOy1NnCvTOEad tLuwNpoBVW9v8YeQq90 J98gADtwPFEvUFSuZUV vHLNveEnijy2elW4hZh 8+KG9oa6deui37lK86a HI+RWSrGBU6uEonMIaf PSZnzY6gKLktNxF4KPP wCfDxkN21kCHnSBczNc 7whGgekHlnSK1jOGUgp pvqe962WpUto0taKRZu hRDwWKmjDKK0N91ta2S 6CXPqTCOlWYN9zTM1jU 1hbGlnbjogbGVmdDsgd nYqlLcvCIvnDWdjG218 IHRvcDsnPlBhdGllbnQ oWgCaYLi6T6KxUfu5QD PhhEqyOB4ryHIsTXwsO f5faDygiSogOW0dWXUo nxlim057RhWqx8reVCF baSCcIQebBWJ2O56vk7 J4QJAqNTVgTYK5nDJ8o F8kjBellijyaQKnpKkw emWyuPstZHigAPpqX98 6IHRvcDsnPkJpcnRoIE EtxEF6JU85KV39pBLmj 3M8rUR2H0McZOIwjply mqqlxTF5MSPjENMbfX5 9Dd2zoQiaDg9kGZDmQQ B1SCHbeRPlQ5FdkD4sI mAsYTQzMONuE1EvqFXx WGrmC402CZkyCgC4FNP hcxQnP1WmGPBbwMziWy C1s1C3Xg8XR7D0IZ21B U37fGMbc8H3wSX8S9Zy HGHmdrqefmimbFT4SYP hVPNwaS94Bu6inAyaCz 4eBQLgGUI5EPGzhIVsH 1OstS5jNqAfGQIuPKVx P9FvyVTiXPmbO703ENy wVpL9GAIynxTiE9PqYL WegZbxJlE0l4Q9Ky5AI Oz3VN06LG88nSYuo3V9 wKS2C6SzPXPgoppinng ayYG0YIBgLXUlwT06Nq 0jlRfeFo4uWGYwZXR1I FCvmKFdT1IzbD0eTkKb EUYoRMJiP3FbwJVkQHq wT154GXdyOiE9HIBkeb PwA7UzYBHwpUafTiD0d 3A7Wj6DIEXjJC08LXY5 fEH0QW89PN09W3RvUcj vdGFibGU+PHRhYmxlIH dpZHRoPScxMDAlJyBzd RkdYN4aHi3iGXZdXEZd fAhsiZFmVoUug4bpZOU mKJtzYB6vjCnsD0QxfL L1FDVmm1g8Hb93F31hB 3JvdXA+VIIrzVM8yDE5 eR3jAoYwReC0ITldX08 2KzOxoKAbFizdk9ioc3 gcuZm8YkS3RLKwajHdq NctDNF6e7UeHc24Z04i IHdpZHRoPSIxNSUiIHZ vlUoygn3saY6qVq9+PG LoeYZ7lDX9eB9hYkZvE vD7SZziF715EuEvyHJy Iwaza2ovj2cifTt5NnV zHXTrtkXqcCihHOK3f8 UmQh38L7AlcIfgp1YtE lo5kg30mJWbb8S4gTQ6 O3RcEADnvkusfWQpkCd hVT2zFFMjyrtiKTQwkK 0sDQQrS9h6WxPoDdR4Q QqlK8DsanU3KOFwbNUn FPpvXNN4Q60ki3H1UGS fNDTsZOJ9eGA3fH3glJ lnbjogbGVmdDsgdmVyd CslXAoiOCkwV189UUIo fVchEXGzfQ7qOLBalRY bbRyhDW9qGVSgiandUo aLIL6SYBVXTcawVEqTN OFWLHGJQA72EJ64lWBe f3B7kXY4Z3RuGVQwapc wrfrogXP1LYWiXYCcsL 03sDGqJNkhTb8um0F8m 956ZMKyJOGxbT80Mw6y jKjsUPJekLHCrN3qzpk pz8kxzduiDtEaYKBiOL g0XJk1VHWnlCfrAiCjI LY1NkQ6KBV0wWAymC7e xIurkvifwZ2kRpq+MTI lSQmvABy7EAppbPC+PH QvWMA1gRquDUqiFTXay G3tOSMpY7z9IoLcSxA8 WRagC1QpEEGywldcZu8 7iS5eFrKfJiA6LAtwI6 TpzpU4EQLnhPKfKFyqF FH2O84xz1R1VDDjWFWo GVB1bPH7pV7eoTxpccz gbGVmdDsgdmVydGljYW urCUviK555FNDmlBwyO kL2XLdwLQSzGM70KA98 zSFaq8E5uKU8P8TlLHA wbtvlxrvjhUO8KDTtID PwbI70jFFhOBvcIf9ld 1S5s968EVYqECQsjK75 Cp3cgXexFVTywWBFeT8 gjqmvg3lpxpljNxQoHA GpQEl4UWw0WQFsnFkjU aZmYXM7BfF5IGU1vLKx vR6wwZvuatkjfY2qLvm +PuKrJSqqIL01WF54pM Sjd8H4yGH9J5NbUKOyo lnzjvfepFR3HVBpOMKa pY59iVOnWGeaRs8iv0A 7x233LQKiGRPbeZ22Ub 5cxSydERWwlPWXgY0if pqle4drxsnpTuBrALWk QWf6GOj8VYFzoYrbWnA kFJP1DsG7EQL2jCTyiF 5onHckbotxjI5lQum+T 1W7bSB7uINubEwsqHU+ YJ71yx50G4XsHvyeMch 0USHrARO6wWV9oQ4qHG HhVSxpx7H9kIQ6R1Ocv dJhzv3wz2olFOVwOThy P12ivQAgc1K0LKNluZO 7QTAszTagSiCwoF37Ou c+TENucTecl0XcOksfy 9pff6axmRo1RuSrLFXe knBggKvqSJL7l8MiJx0 4K67rLHlmUVYeAKOgVF ZdOJXtsPhnfw0ktB5aD i8+CHVnzEO3sLY9gO7z DzGoRxS0FBmdI316YiZ riMHtWdlwl0daz6dxmV i3ScMwDFTsjgOxbUqjF SB7k6FpAq50T8JisImf n8LiUrr7ia83uQUkj1F 8cOU4P0BdOOStgsqibA IdfGwaKG8zJPPuuwlrJ DRyvW9bOOEaL5d2YwNv MmV8VUpaL5NrpnX4RMI llWIpGHPbqHZUhW2ido leq3adhnuiOtXkHFMtX Kq9HQl4AQVfjEfnWrRx INU6EiJ4FBW2rOVxhN9 coMmjloizxS5mRoj+UG y7r4rwaATnEG0jwTY4W I41FQ04fNZih7O1wSJ1 L7EyUPGizhkxvgguqMO 4VLKqIGIkyM24Fn6kyS msSs6tXIRjUXZ4ZKAta QUkL9KbrO9oDtFwVTBa DNLeP4KubOAdWWwjW50 3HLypOvC9UNZcxoVlH3 DwTMIzaVaiUjO5r7P6D p6BQC16PT87SI17qYKa p3O1wRR1U0QuDGBdrdt okjpihIB4EMMuWOCzzX 54Jx6tjEjiXh4sOGNhM NE0EFNsdKXfD7OmtD7a TgGdFYSnWPTiH0TfrGH zNUwaB401TSjzGnW6UP NntpIrL5QqTJRzkUzcW lG2c4H7Wm2FQp58QO58 UZ42mCHju2T8rHL4R1N xXGUttlxymgqpuBJ5VM PoMNFqkB45Za4weWuyZ y3kOYVtSOH5MYSpwVOv G3WffZ8uRlVfBGHvUGR aK4IziMDeEYqhV083MH edLgC9WHXrsrJsL0GfI QCsaLsdUdI7q4D7Jz2S XMjofml4G5RnBoruwOH +JJ03STTdME60rPQisO Zzv6pruVa5LeAqYRHxP BL4pCokKFxgt6QwIWSf Y29s (more content not included)... Normal [facility] CT Chest w/ Contraston 10-29 CT [...] Terence Lomas M.D. Transcribed by: SHAYNA Technologist: ALONSO Technical Comments GFR (mL/min/1/73m2) age Contrast: Isovue 300 Contrast amount in ml's: 100 Normal Flores [facility] Coding Summary.on 10-28-2020 Coding Summary. CD:[id number] IBn8pLy+PGhlYWQ+PE1 EJVAfW43ijZVctO3XG1 vLJX1BUICTPIHMRC6JI V5ceDM6XAshQ1CecoRu AxfmiQGqSK84SHk7SLR 1aKdpSJlgiU2wmCWcE7 j5OzXaQX34jU96UExtT QCeQnG4YxRwzcrteKJd D5fxDsAulTMnCyi+PHR hYmxlIHdpZHRoPScxMD VgXiGbkHhbBB9aIn6nI GVyLWNvbGxhcHNlOiBj v1cwBPTiBNopCP6spAh lR9BjhLC3PEQmf1r7Sf 48dHI+OUCsNDA4sBwyB Ylfv646KyQre5lhPHQ3 tLQmNFbtPGT6G96xr2V 0VERgBYGaYYW6zNC0cM 2ipOzdhxwpP4MsbBUrJ rM1ZOR6nDHlnK3htWrz boqcvA2iKgt+D03UVA9 LRLYYCN8HQeu7R9RmJt wvdHI+OJ20KZRhTW52q PHsiFIfo2kyvGt3JuBb IDMdDIM5dOijCKfhy2F rKZPaU31xmDJhl4Z0VJ CcfKnmlSFhKfWdmXM0r A0rSZkuqnqyi4bhlxfd Cvdgq4zzxk16hV66N69 hTPtoFYTeQUN2MMGzKE KapToxie2vyM6nJj3+I Ahtl8dkk1lhpNu9XgHz ZZThkdOyiQjgQIV0f5S eQw27K2ZfiPcgt8LfKj b4it34yEXjb2O3pAP1X NahNCXaoM0hQKjdLeY1 UCZiOrNrtY31lJUnXQx wAa5bgCfhkKbkHD5jSC ChkktlTCNmfF2tDSWna AClnNqbOV7uATZpmuin k086HbGxWZM4OWQgmFI oB8SuvC7lEpQqUUJqZH RsM0GesYYuXRgfZ017Z DlnGnZ9SFHvcoMoM8Fi DBCfqZqrAeM4d2O9Gh2 Dw8AkqwbzIQI0JMolUA F8WoVmGmDbGfJ5R9EsX xf7FIJwkBiqQE2jL5Ft DRFfqziwlejbaTI4BEW vHIRyrA27sOGtACshRo 4yc7K2v410UGJcRMOvb N62Qp1qbUqeTBIdbXNX gE4xvjqvj2fkzlsoMtG gADVgFRh0QUv6KIWsoO ptYiPaUDI4NtG1JOF8y YCooZ0lgUjfiidetG2q Oyc+M73ukF7dQEP7CJL 9clxqWHBdvuCvYW31RV 01X1EnXuxuuOHbmAI+P QZcrsCqqTzgPH6yDgXo n6yjz4FlKIjrU0LmXOW pOKntCwk3CJFzOIV8pO J7xW5lEZOeYOhoz6U2e UG7O9HlnwIukj2hc7dd AHGgLVejS36znHOes9A 4XRJjgVU3WAKizZvjUv LrvD66Ths+PGNvbGdyb 4KgNacco9ugz3nugPt4 IjMwJSIgdmFsaWduPSJ 7n0AdJi89N30fIUzcEJ RoPSIxNSUiIHZhbGlnb g5sqR8bNv7+PGNvbCB3 uCB2zB0qYHLvOjX2GOv wS061MnTkjFQnEmtym7 lgn3zkmIg9DmChNYAsy tTwaLtgUZP8f2QcLd50 X71aAWnfDLSnLFAvOJC uTMRyoRuxnx9psZ5gPq 8+OI3gt5mqht80fP90w HI+HRSyKEK8nRjmTOuw ZCCccQ5vSHvgHiO6TCA iDoJvhU33jIJfJNfiRz 4bkMlizPnjQJ5lSUUdl gioe503LhWla4ugBSQs fFQeLBujKII5R16kg7L 2NPAzFQBpDZA7tJC1uD 1hbGlnbjogbGVmdDsgd pEyvXrsGGojNAfeZ414 IHRvcDsnPlBhdGllbnQ tPiMdSSg6B0AmMkw4ZN QlgIuzWE2zcCHaOUkkG n9ktTfpqLheHR9pXCLr goinm274MnCmc8nqHRH mcOMpAHlfWMI5U22ku5 J2UQOcZDRlZBM0yNA9d E2yfQrtqlaydLQnnRug rwXsyNzuJIinGCncX33 6IHRvcDsnPkJpcnRoIE YbsQJ7UC33SZ88kCScf 1F9fCU8O1YbXKOlxkmz fkfibEO1ODPaSTQnlN3 2Mq7cwIjeNc3cGVCeCU W5PTSwuLHmB9LpsS5cS zEpMZGfQLFnO2GsxNFh KSnuX024PHlgOeI5BAP gotTsK8JpFTWwxVugFu M7b5B9Xl4EY6J3DZ85J R94qECuq5X1kJG5B4Df FNAxyizdwhmkcUG9GZN kRIEnqX66Tu3shNpfVt 7aOSUtJHJ6GKPpfSAoA 6QayJ4gIxTjFEJtVBVh L7MgkWKoBYrfZ786TQc aOjB7ZBQmmiLeR7RnAX SrlIueVbK7j5Q1Db8FQ Bw3MB78GG77iEPzp9M5 dLR6N2KcFPXxyqdntsl suHY9GJAeKLRoyS42It 8iyBpzBq2sYIYeAGU2N SKyeHUyF5SesY4rEzIy KCRtWDMoH5MwbNFvMTm bB984NClpIkV6DGWjdv EjD2SoRCOhbUgyFvZ6d 0W9Xb7MXTIoDR42EKB7 nTU9ZJ37UQ84I6IcWka vdGFibGU+PHRhYmxlIH dpZHRoPScxMDAlJyBzd WhvXX3cTw5oHBBdGFSf rHgngKZnNbBlq6jaEUV eKMhoTO4nfPtgF8HkcT K1VBWcs4j8Hz67M98zF 3JvdXA+POOjeGL0qEK7 jI8kGiScMjE9PHqnC04 8XgAdfFXtXjrgf8lou5 waeId7TuI9YAJeucIic UtcTBG6f0GcHe23X73w IHdpZHRoPSIxNSUiIHZ zwEczqz0vnI4sUv2+PG WyiJN5hMQ3dS0pBaMlY wE1PUxuB124PpNsnERu Agltu7chy0iiwBk6AaS rQANelnZwsPlrLOE3r8 NxHn65M6GzkDfzg9UbB ut6jj42wFCsu1J6wMF9 B3DpJNNuzbkwgGQtmBq aYV8bAFAqchbrXQAeuT 8hASKqK0y5PgAsFeT6B EawS7ZxlzG1SZKkwNRu YByhOIP6E66ig9J0WZL nYNUdMBJ6lZY0uS8pkR lnbjogbGVmdDsgdmVyd MxcACroSLviM161YVTp hWcjVFWesM2tMVNhyPY omAktMC3qTPSjgzifRw bSCL7QRSLJJucgEWhPR WMDGNMQYY31JQ54oXNt w2A3jXF0H1IrLYWoope dtvnnoOH2TFYzGJMycL 90vVCbMOhsHx6ik6N3q 136QOVcDQFzhH84Ui7f sXceUNIyyQQWcC6gncc iz9iefikjXaQwJHSrMM t0XGa6DWPsmGppGpHvN XQ1JjT9GQS6sCXkkO9l gWeutsxcgU6sKve+MTI hSDvsZQc3EQkggYT+PH VjWHN3jOwoRJizMNPmb M7vRYFqG2i4XkNpKmW0 QCxlG1JeVVHmbkljFk8 5eF5rLvJgMjI1GRdpJ3 CdtjU8DUUktEFcNAnmT WH7G43ka2I7HFPkDJGr LVC7xMN9qX9tqXmpdgm gbGVmdDsgdmVydGljYW kbQXquX375UAQjkFycB xI9ZOhhZCPtDK91VL61 sYYkd0V7aKE0B8OzISU yarhtptqlyFB0GKQwLS SowH60oNVpXGrkFy7pk 8A5y956SIUmGCKuvF00 Hb5xzWvaMTWmeGGBcJ0 ktfqzi8oishwiCrAuUS CjQOr3FBy0TPHezTxrP sSnLQR1NlJ1CCR3jLXd lC8tqYifrlxdjP5pKax +RuAjPHvxRI82ED30jT Kui0V4tKI6Y8TwQMIgj syjekkjtAU8NWRsGEMk cL22tKApWMmfGl1hx9B 9q074FNGzGGSvvN13Xi 0sxMwbGVBmfJWBaV6jg ugur4gnhuzgOyZuNUUx XBq3LQy5TEXlaCdpQzG bFYT5OnT3CNM6mTDbqL 6dvBmgsiamdZ0kDyo+T 9A5wPQ8vSXxnDgztCI+ BX55mv50L7LpPytoTkr 3VWZgGFU5tFX4eE4sYB EsHXntb0R4uSC9O2Myt pZfey2xj8bbNKLyCOvm O08vnLPdo1U3NZOcdEI 5CZKicIflAsWebJ04Ox c+VVEgcDous1RqIvjlx 2sfv8anvUt3LqUzZZCe erQplKmxTZX2o1GbKv5 2N45hCFmlQKApTCNtML QpHCCpnQpegl2gcX7tX i8+HJWvwYR9nDZ0oM5j IiKwTwK9JAhmJ762PoL lfEGpVtvtw3ffy8winS t5ZvZpNAAphbXfsVmkK SB7u0UzLw21P7KksHim k0MsGej1he20zALai2N 2bKH2E8NeLFAxqhmptO EebVpnID6fMCMpyonxG NVrpY5mWNBwX0n9UnUv KtP7JIhcC3NlxrN3CTG xlVYgWNRopEIQkT5zgw afh0cbkebjVgQnYUIeA Ie7RXt9OBAruNtdWuFg KGQ8VjW2ZEP9pYZlgM4 phEqlbebbsX5cPdn+UG e3q7acyTDbGB5nmEX8Z C23JR66fDUnj3A6cCN8 N0AfVFNspanufjiokBG 7UIFuTJOjrO37Hl2nsO duDd1nMPPwJNV6AJCxx EIaI7EwbH7nHdZnGKPh VZZoX4LfdTXpMXefD44 6KWtwAfJ3NKIgemUcL5 PfEMDjySjqOvI2v8T0T n9AGW37SI78TI87lOTi n7S0fKY2H0QtDIBnejp dwhfznLE0BPJcDVSwkH 72Ca0dhKpnCz7hTRZxG OH2PORxeUGrO4DtyZ2g EpJxCPVyCKDcP6GyeMH eWGwqL033VOmfQzW6NY OkanHpY9TaYRYhwFybO pN3u3C3Xz4VOg83RD96 RU01tMHdd2L7rOI5M5D cDYVaxdayzkelhEG9BB TmYVMisU08Wd4zsCnwH l7zRGViGVH2UFBdfBSr D0JsqO9uNzYjNIPlMVE sD4SbjOYiKIsnG805GA jmJdA2TWZeydEtV4JlM HGjiTlaYwJ0n3Q0Ty6R WXpbnpm2W6BjRhixtSM +UP72SPRvQX44jPMnmY Gbb7djlFq4ZfTdOEPxS DV9wJmtVEhjy6XhFFWa Y29s (more content not included)... [facility] Consent for Treatmenton Consent for Treatment [id number] 44#1.00CD:127 [facility] Physician Orderon 10-21-2020 Physician Order [id number] B8#1.00CD:127 [facility] Consent for Treatmenton Consent for Treatment [id number] B4#1.00CD:127 [facility] Physician Orderon 10-19-2020 Physician Order [id number]#1.00CD:127 [facility] XR Chest 2 Viewson XR Chest 2 [...] Ball M.D. Transcribed by: SHAYNA Technologist: BECKI Corona [facility] Vital Signs Date Time Vital Sign Value Performing Clinician Facility 07-26-2023 11:27-0500 Body height 170.2 cm Lizeth Jasso MD Work Phone: [employer] 06-12-2023 13:00-0500 Body height 170.18 cm Shun Hill Other [employer] Other 06-12-2023 13:00-0500 Body mass index (BMI) [Ratio] 35.24 kg/m2 Shun Hill Other [employer] Other 06-12-2023 13:00-0500 Body weight 102.06 kg Shun Hill Other [employer] Other 03-15-2023 12:29-0400 Diastolic blood pressure 89 mm[Hg] DO Irma Burt Work Phone: [facility] 03-15-2023 12:29-0400 Heart rate 70 /min DO Irma Burt Work Phone: [facility] 03-15-2023 12:29-0400 Respiratory rate 16 /min DO Irma Burt Work Phone: [facility] 03-15-2023 12:29-0400 SaO2% (BldA) [Mass fraction] 100 % DO Irma Burt Work Phone: [facility] 03-15-2023 12:29-0400 Systolic blood pressure 132 mm[Hg] DO Irma Burt Work Phone: [facility] 03-15-2023 08:54-0400 Body height 170.18 cm DO Irma Burt Work Phone: [facility] 03-15-2023 08:54-0400 Body weight 90.71 kg DO Irma Burt Work Phone: [facility] 02-08-2023 14:45-0400 Body height 170.18 cm Shun Hill Other [employer] Other 02-08-2023 14:45-0400 Body mass index (BMI) [Ratio] 34.92 kg/m2 Shun Hill Other [employer] Other 02-08-2023 14:45-0400 Body weight 101.15 kg Shun Hill Other [employer] Other 02-08-2023 14:45-0400 Diastolic blood pressure 80 mm[Hg] Shun Hill Other [employer] Other 02-08-2023 14:45-0400 Systolic blood pressure 131 mm[Hg] Shun Hill Other [employer] Other 01-16-2023 10:35-0400 Body height 170.18 cm Aydee Hearn Other [employer] Other 01-16-2023 10:35-0400 Body mass index (BMI) [Ratio] 35.2 kg/m2 Aydee Hearn Other [employer] Other 01-16-2023 10:35-0400 Body temperature 98.3 [degF] Aydee Nadiya Other [employer] Other 01-16-2023 10:35-0400 Body weight 101.97 kg Aydee Nadiya Other [employer] Other 01-16-2023 10:35-0400 Diastolic blood pressure 66 mm[Hg] Aydee Nadiya Other [employer] Other 01-16-2023 10:35-0400 Respiratory rate 18 /min Aydee Nadiya Other [employer] Other 01-16-2023 10:35-0400 SaO2% (BldA) [Mass fraction] 98 % Aydee Nadiya Other [employer] Other 01-16-2023 10:35-0400 Systolic blood pressure 105 mm[Hg] Aydee Nadiya Other [employer] Other 09-23-2022 10:45-0400 Body height 170.18 cm Aydee Nadiya Other [employer] Other 09-23-2022 10:45-0400 Body mass index (BMI) [Ratio] 35.13 kg/m2 Aydee Nadiya Other [employer] Other 09-23-2022 10:45-0400 Body temperature 99.2 [degF] Aydee Nadiya Other [employer] Other 09-23-2022 10:45-0400 Body weight 101.74 kg Aydee Nadiya Other [employer] Other 09-23-2022 10:45-0400 Diastolic blood pressure 80 mm[Hg] Aydee Nadiya Other [employer] Other 09-23-2022 10:45-0400 Respiratory rate 18 /min Aydee Nadiya Other [employer] Other 09-23-2022 10:45-0400 SaO2% (BldA) [Mass fraction] 98 % Aydee Nadiya Other [employer] Other 09-23-2022 10:45-0400 Systolic blood pressure 125 mm[Hg] Aydee Nadiya Other [employer] Other 09-04-2022 11:20-0400 Body height 170.18 cm Aydee Nadiya Other [employer] Other 09-04-2022 11:20-0400 Body mass index (BMI) [Ratio] 31.32 kg/m2 Aydee Nadiya Other [employer] Other 09-04-2022 11:20-0400 Body temperature 97.8 [degF] Aydee Nadiya Other [employer] Other 09-04-2022 11:20-0400 Body weight 90.72 kg Aydee Nadiya Other [employer] Other 09-04-2022 11:20-0400 Respiratory rate 18 /min Aydee Nadiya Other [employer] Other 09-04-2022 11:20-0400 SaO2% (BldA) [Mass fraction] 99 % Aydee Nadiya Other [employer] Other Encounters Encounter Date Encounter Type Care Provider Facility Start: 07-26-2023 Chart abstracting Lizeth Jasso MD Work Phone: [facility] Start: 07-18-2023 End: 07-18-2023 ambulatory SAGAR LUKE Not Available Start: 06-20-2023 End: 06-20-2023 ambulatory Shun Hill Other [employer] Other Start: 06-20-2023 Telephone encounter Shun Moncada ck [facility] Start: 06-19-2023 End: 06-19-2023 ambulatory SAGAR LUKE Not Available Start: 06-12-2023 End: 06-12-2023 ambulatory Shun Hill Other [employer] Other Start: 06-12-2023 Office outpatient vi sit 15 minutes Shun Hill [facility] Start: 05-01-2023 End: 05-01-2023 ambulatory Shun Hill Facility:[facility] Start: 05-01-2023 End: 05-01-2023 ambulatory DO Irma Burt Work Phone: [facility] Work Phone: Start: 05-01-2023 End: 05-01-2023 Patient encounter procedure DO Irma Burt Work Phone: [facility] Work Phone: Start: 04-10-2023 End: 04-10-2023 ambulatory Shun Hill Facility:[facility] Start: 04-10-2023 End: 04-10-2023 ambulatory DO Irma Burt Work Phone: [facility] Work Phone: Start: 04-10-2023 End: 04-10-2023 Patient encounter procedure DO Irma Taverase Work Phone: [facility]-CT [facility] [place] Work Phone: Start: 04-06-2023 End: 04-06-2023 ambulatory Shun Haleormack Other [employer] Other Start: 04-06-2023 Telephone encounter Shun infante [facility] Start: 03-20-2023 End: 03-20-2023 ambulatory Shun Hill Other [employer] Other Start: 03-20-2023 Telephone encounter Shun infante [facility] Start: 03-19-2023 End: 03-19-2023 ambulatory Shun Hill Other [employer] Other Start: 03-19-2023 Telephone encounter Shun infante [facility] Start: 03-15-2023 End: 03-15-2023 ambulatory Shun Hill Facility:[facility] Start: 03-15-2023 End: 03-15-2023 Admission to same day surgery center DO Irma Burt Work Phone: [facility] Work Phone: Start: 03-15-2023 End: 03-15-2023 ambulatory DO Irma Burt Work Phone: [facility] Work Phone: Start: 02-26-2023 End: 02-26-2023 ambulatory Shun Haleormack Other [employer] Other Start: 02-26-2023 Telephone encounter Shun infante [facility] Start: 02-08-2023 End: 02-08-2023 ambulatory Shun Hill Other [employer] Other Start: 02-08-2023 Office outpatient ne w 45 minutes Shun Hill [facility] Start: 01-16-2023 End: 01-16-2023 ambulatory Aydee Nadiya Other [employer] Other Start: 01-16-2023 Office outpatient vi sit 15 minutes Aydee Nadiya [facility] Start: 09-23-2022 End: 09-23-2022 ambulatory Aydee Nadiya Other [employer] Other Start: 09-23-2022 Office outpatient vi sit 15 minutes Aydee Nadiya [facility] Start: 09-04-2022 End: 09-04-2022 ambulatory Aydee Nadiya Other [facility] Other Start: 09-04-2022 Nursing evaluation o f patient and report Aydeechelsea Hearn [facility] Start: 07-12-2022 End: 07-12-2022 ambulatory Perla Yulisa Other [employer] Other Start: 07-12-2022 Office outpatient vi sit 5 minutes Perla Yulisa [facility] Start: 07-07-2022 End: 07-07-2022 ambulatory Aydee Nadiya Other [employer] Other Start: 07-07-2022 Encounter for other preprocedural examination Aydee Nadiya [facility] Start: 07-07-2022 Nursing evaluation o f patient and report Aydee Nadiya [facility] Start: 02-03-2022 End: 02-03-2022 ambulatory Maria Guadalupe Powers Other [employer] Other Start: 02-03-2022 Office outpatient vi sit 5 minutes Maria Guadalupe Powers [facility] Procedures Date Procedure Procedure Detail Performing Clinician Start: 05-25-2023 Assay of thyroid stimulating hormone tsh Not In System Ref Prov Start: 05-01-2023 Ultrasound elastogra phy of liver DO Irma Burt Work Phone: Start: 04-10-2023 CT of abdomen with contrast DO Irma Burt Work Phone: Start: 03-15-2023 Colonoscopy DO Irma Kiet karimizaheer Work Phone: Start: 12-13-2022 HIV 1&2 AB/AG SCREEN (P24 AG) Not In System Ref Prov Start: 12-13-2022 Iaad ia hepatitis b surface antigen Not In System Ref Prov Start: 12-13-2022 Syphilis test non-treponemal antibody qual Not In System Ref Prov Plan of Treatment Date Care Activity Detail Author Start: 01-18-2026 DTaP,Tdap and Td Vaccines (3 - Td or Tdap) DTaP,Tdap and Td Vaccines (3 - Td or Tdap) [facility] Start: 09-17-2023 End: 09-17-2023 Patient encounter procedure 09/17/2023 8:45 AM EDT Office Visit [facility] at [facility] [address] [place] [id number] Lizeth Jasso MD [address] [facility] [address] [place] [address] [facility] Start: 09-17-2023 End: 09-17-2023 Patient encounter procedure 09/17/2023 7:30 AM EDT Appointment [facility] [address] [place] [id number] [facility] Start: 05-01-2023 [facility] Start: 03-15-2023 [facility] Start: 01-19-2023 COVID-19 Vaccine ( season) COVID-19 Vaccine ( season) [facility] Start: 01-19-2023 Influenza vaccination Influenza Vacc ine [facility] Start: 12-30-2021 Adult BMI Screening Adult BMI Screen ing [facility] Start: 2006 Screening for malign ant neoplasm of cervix Pap Smear [facility] Start: 1997 Depression Screening Depression Scre ening [facility] Start: 1997 Tobacco Screening Tobacco Screening [facility] Immunizations Immunization Date Immunization Notes Care Provider Fa cility 02-03-2020 influenza virus vaccine, unspecified formulation Lizeth Jasso MD Work Phone: [facility] Payers Date Payer Category Payer Private Health Insurance [id number] 2023 Self-pay [id number] 2018 Private Health Insurance [employer] Tej ETNA POS II [id number] 2018-Present [phone] [address] [place] [address] [id number] 1985 Unknown [id number] 1985 Unknown [id number] Medicaid [facility] [id number] Private Health Insurance [id number] Unknown [employer] [id number] Unknown [id number] Unknown [id number] Unknown [id number] Social History Date Type Detail Facility Start: 06-30-2020 End: 07-26-2023 Sex Assigned At [facility] [employer] Other Start: 03-15-2023 End: 03-15-2023 Tobacco smoking status NHIS Ex-smoker (finding) [facility] Start: 1985 [facility]igned At [facility] Start: 11-17-2020 Tobacco smoking stat us NHIS Smokes tobacco daily [facility] History of tobacco use Tobacco U se Types Packs/Day Years Used Date Smoking Tobacco: Every Day Vaping/E-cigarettes Smokeless Tobacco: Never [facility] Start: 11-17-2020 Tobacco use and exposure Smokeless tobacco non-user [facility] Start: 07-26-2023 Alcohol intake Current drinke r of alcohol (finding) [facility] Start: 06-30-2020 End: 07-26-2023 History of Social function [facility] Childcare Unknown [facility] Start: 11-17-2020 Alcohol Comment social [facility] Start: 05-04-2023 [facility] Start: 1985 Sex Assigned At Not on file P [facility] Goals Date Patient Goal Desired Activity /State [...] and minimal scaring, this will be reviewed [facility] Other 11-17-2023 Evaluation note* Encounter Date Diagnosis Assessment Notes Treatment Notes Treatment Clinical Notes Mar, Exocrine pancreatic insufficiency (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) [facility] Other 10-31-2023 Evaluation note* Encounter Date Diagnosis Assessment Notes Treatment Notes Treatment Clinical Notes Feb, Alternating constipation and diarrhea (ICD-10 - R19.8) Feb, Fecal urgency (ICD-10 - R15.2) [facility] Other 10-30-2023 Evaluation note* Encounter Date Diagnosis Assessment Notes Treatment Notes Treatment Clinical Notes Feb, Alternating constipation and diarrhea (ICD-10 - R19.8) [facility] Other 10-26-2023 Procedure [facility]10-09-2023 Evaluation note* Encounter Date Diagnosis Assessment Notes Treatment Notes Treatment Clinical Notes Feb, Alternating constipation and diarrhea (ICD-10 - R19.8) [facility] Other 09-21-2023 Evaluation note* Encounter Date Diagnosis Assessment Notes Treatment Notes Treatment Clinical Notes Jan, Alternating constipation and diarrhea (ICD-10 - R19.8) WORSENING DIARRHEA AND CONSTIPATION OVER THE PAST YEAR. DOES HAVE SOME NOCTURNAL AWAKENINGS WITH THE DIARRHEA. CAN GO 4-5 DAYS WITH OUT A BOWEL MOVEMENT WHEN SHE IS CONSTIPATED. WILL ORDER IBS WORK UP WILL PROCEED WITH COLONOSCOPY [facility] Other 08-29-2023 Evaluation note* Encounter Date Diagnosis [...] no improvement in 2 to 3 days [facility] Other 2023 Evaluation note* Encounter Date Diagnosis [...] no improvement in 2 to 3 days [facility] Other 04-17-2023 Evaluation note* Encounter Date Diagnosis Assessment Notes Treatment Notes Treatment Clinical Notes Aug, Contact with and (suspected) exposure to other viral communicable diseases (ICD-10 - Z20.828) [facility] Other 02-22-2023 Evaluation note* Encounter Date Diagnosis Assessment Notes Treatment Notes Treatment Clinical Notes Jun, Contact with and (suspected) exposure to covid-19 (ICD-10 - Z20.822) [facility] Other 02-17-2023 Evaluation note* Encounter Date Diagnosis Assessment Notes Treatment Notes Treatment Clinical Notes Jun, Preoperative clearance (ICD-10 - Z01.818) [facility] Other 09-16-2022 Evaluation note* Encounter Date Diagnosis Assessment Notes Treatment Notes Treatment Clinical Notes Jan, Contact with and (suspected) exposure to covid-19 (ICD-10 - Z20.822) [facility] Other Evaluation note* Diagnosis Onset Date Resolution Status Diarrhea acute [facility] Work Phone: Evaluation noteNo InformationN[employer] Other History general Narrative - Reported* Type Description Date Medical History ANXIETY AND DEPRESSION [facility] Other Hospital Discharge instructions Additional Instructions DISCHARGE [...] if you have any problems. -Office number [phone] Work Phone: InstructionsNot on filedocumented in this encounter [employer] SystemReason for visit NarrativeRED EQUINOX, ANTIGEN PROCEDURE TESTNo[employer] Other Reason for visit NarrativeNEEDSNEGATIVE, RAPID COVID TEST FOR PROCEDUREBooodl Other Summary Purpose Family History Relationship Condition [...] section and content) DATE CREATED AUTHOR 08/24/2021 [facility] DATE CREATED AUTHOR AUTHOR'S ORGANIZ ATION 05/09/2023 [facility] DATE CREATED AUTHOR AUTHOR'S ORGANIZ ATION 07/21/2023 [facility] EPIC REASON FOR VISIT (unrecogniz ed section and content) RAPID COVID FOR PROCEDURECOV ID TESTFEVER BODY ACHES SORE THROATBODY ACHES, HEADACHE, FEVERCONSULT -DIARRHEAlab ordersPOSTING SHEET ORDERClinicalCt Scan/Creon scriptPatient here for follow up colonoscopyCREON TO MUCH $ Care Teams (unrecognized sec tion and content) Team Status: Active Member Role Status Dates Irma Burt , Primary Care Provider Active Team Status: Inactive Member Role Status Dates Shun Hill MD Attending Provider Active Irma Burt , Primary Care Provider Active Team Status: Inactive Member Role Status Dates Irma Burt , Primary Care Provider Active Shun Hill MD Attending Provider Active [employer] Relationship Specialty Start Date End Date No Pcp, [place] [address] PCP - General Family Medicine 11/18/20 FOR RECORDS PERTAINING TO PATIENTS WHO ARE [...] BE BASED ON THE PRIMARY CLINICAL RECORDS. [facility]. provides no warranty or guarantee of the accuracy or completeness of information in this document.
[2023-08-21 09:11] LABS: Age Gdln ACOG Testing Note (.); HPV Aptima Negative (Negative); IGP, Aptima HPV, rfx 16/18,45 Note (.)
== END 2023-08-15 20:07 | disposition home or self-care (01) ==
LOC: LAB 20:06
PROVIDERS: Visit Provider Physician Assistant
DX: Z01.419 Encounter for gynecological examination (general) (routine) without abnormal findings (principal)
CPT/HCPCS: 87624; G0145

== ENCOUNTER 2023-09-13 05:38 | Observation (INO) | payer OTHER, SELFPAY ==
--- OUTSIDE RECORDS SUMMARY | 2023-09-13 05:42 | XMS_ITS | CCD ---
Author Organization [facility] Care Team Providers Care Bridge Engineer Name Role Phone Maria Guadalupe Powers Unavailable Aydee Hearn Unavailable Perla Márquez Unavailable Shun Hill Unavailable MD Shun Hill Attending Provider DO Irma Burt Primary Care Provider [phone] MD Shun Hill Attending Provider DO Irma Burt Primary Care Provider Shun Hill Admitting UnavailIrma Elliott Primary Care Unavailable Shun Hill Attending UnavailShun Lee Attending UnavailShun Lee Admitting UnavailIrma Elliott Primary Care Unavailable Shun Hill Admitting UnavailIrma Elliott Primary Care Unavailable Shun Hill Attending Unavailabl e No Pcp, No Pcp Primary Care Provider UnavailSAGAR Bowser Attending Unavailable SAGAR BUTLER Attending Unavailable IRMA YI Attending Unavailable FROYLAN RAMOS Referring Unavailable NO PCP, NO PCP Primary Care Unavailable Medications Current Medications Medication Drug Class(es) Dates Sig (Normalized) Sig (Original) amoxicillin 500 mg oral capsule (2 sources) Penicillin-class Antibacterial Start: 07-26-2022 take 1 capsule by mouth every eight hours Amoxicillin 500 MG 1 capsule Orally three times a day for 10 day(s) Jul, Active amylase 708272 unt / lipase 10814 unt / protease [id number] unt delayed release oral capsule (3 sources) Start: 04-06-2023 take 2 capsules by mouth three times daily at mealtime Creon [id number] UNIT 2 capsules Orally three times a [...] 1 tablet by mouth twice daily Sutab 7013-996-126 MG 12 tablets the first dose the [...] 5 day(s) September, Not-Taking 84 hr estradiol 0.93588 mg/hr transdermal system (4 sources) Estrogen take [...] Classification Problem Date Documented Da te Episodic/Chronic Crushing injury or internal injury (1 source) Crushing injury of left foot, initial encounter; Translations: [Crushing injury of left foot, initial encounter] Onset: 08-31-2023 Episodic Immunizations and screening for infectious disease (1 [...] Thyroid Stimulating (3Rd Generation) Hormone/ Tsh 2.200 [employer] CT abdomen w conon 3 CT abdomen w con [facility] [place] [place] [address] CT Scan Report Signed Patient: Laura Alves MR#: [id number] 3 : 1985 Acct:[id number] Age/Sex: 37 / F ADM Date: 04/10/23 Loc: CT Room: Type: [facility] Attending Dr: Shun Hill MD Copies [...] Stan Owens M.D.04/10/2023 4:03 PM Dictation Location: [place] [address] Transcribed By: [facility] 04/10/23 1603 Dictated By: Stan Owens DO 04/10/23 1552 Signed By: 04/10/23 1609 Normal [facility] HCG ( test) IA.rapi d Ql (U)Ordered By: Shun Hill on 03-15-2023 HCG ( test) Ql (U) Negative [facility] HCG,Urineon 03-15-2023 Beta HCG ( test) Ql (U) Negative Normal [facility] Comment on above: Result Comment: PERF ORMED BY: [place] [address] PATHOLOGIST [employer] MANAGER MARINA AYALA M.D. Performed By: #### U HCG #### [address] [place] 03-15-2023 L Specimen: [id number] Received: 03/15/23 Status: BUSTER Alfredo Num: [id number] Spec Type: Surgical Subm Dr: Shun Hill MD Tissues: A Colon Biopsy (SURVEILLANCE BX) Procedures: HE/2, Gross/Micro L4 Age/ Patient Sex Location Account Attending Physician Laura Alves 37/F [id number] Shun Hill MD SPEC NUM: [id number] RECD: 03/15/23 STATUS: BUSTER FUENTES NUM: [id number] SUMIT: 03/15/23 DR: Shun Hill MD ENTERED: 03/15/[address] [facility] DR: MEKA TYPE: Surgical DEPT: S ORDERED: [...] The microscopic examination confirms the diagnosis. Specimen: [id number] Received: 03/15/23 Status: BUSTER Fuentes Num: [id number] Spec Type: Surgical Subm Dr: Shun Hill MD Tissues: A Colon Biopsy (SURVEILLANCE BX) Procedures: HE/2, Gross/Micro L4 Patient: Laura Alves [id number] (Continued) Specimen: [id number] Received: 03/15/23 (Continued) Signed (signatur e on file) Winston Donis MD 03/16/23 1737 Specimen: [id number] Received: 03/15/23 Status: BUSTER Fuentes Num: [id number] Spec Type: Surgical Subm Dr: Shun Hill MD Tissues: A Colon Biopsy (SURVEILLANCE BX) Procedures: HE/2, Gross/Micro L4 Patient: Laura Alves [id number] (Continued) Specimen: [id number] Received: 03/15/23 (Continued) CPT Codes 82754 Specimen: [id number] Received: 03/15/23 Status: BUSTER Fuentes Num: [id number] Spec Type: Surgical Subm Dr: Shun Hill MD Tissues: A Colon Biopsy (SURVEILLANCE BX) Procedures: HE/Yaz, Gross/Micro L4 Patient: Laura Alves [id number] (Continued) Signed (signatur e on file) Robbi-Tyrel Donis MD 03/16/[address] [facility] SARS-CoV-2 (COVID-19) RNA NA A+probe Ql (Resp)on 01-16-2023 SARS-CoV-2 (COVID-19) RNA GEORGE+probe Ql (Unsp spec) Positive [employer] Other HIV 1&2 AB/AG Screen (P24 AG )on 12-13-2022 HIV 1&2 AB/AG Non-Reactive [employer] Hepatitis B surface antigeno n 12-13-2022 Hepatitis B Surface Antigen Negative [facility] No Panel InformationOrdered By: Rae Agudelo on 12-13-2022 [employer] Rubella IGG immune statuson 12-13-2022 Rubella immune IgG <0.90 NON IMMUNE [facility] Syphilis Total(Unknown Syphi lis Status)Ordered By: Rae Agudelo on 12-13-2022 Syphilis Non-Reactive [facility] COVID Quick Testingon 2022 Result Negative [facility] Other COVID Quick Testingon 2022 Result Negative [facility] Other COVID Quick Testingon 2022 Result Negative [facility] Other COVID Quick Testingon 2021 Result Negative [facility] Other Consent for Treatmenton 05-21 Consent for Treatment [id number]#1.00CD:127 [facility] Coding Summary.on 05-28-2021 Coding Summary. CD:[id number] OKi4xLp+PGhlYWQ+PE1 TUUMlV22yrLHbcC4FE3 uZGX6JEIIAXPMVPZ7CM C3tnWJ8BUnqA6LfvlLx UuyqqAYrKP54OJy8GWQ 7bBsxYTorkQ7unPPxM6 l0QkAfJM14hV97LYniM KLzGmU1LzYmkkolcHPk F7upRaWphRAmIlj+PHR hYmxlIHdpZHRoPScxMD AmCpLylQzvLF6zGp0jK GVyLWNvbGxhcHNlOiBj e1bsAFShVVhkEW4wzLw aG7YmuDP4MUUxl8t0Ym 48dHI+AFHuZNP8iYpkP Fuoi992CaNmc6xnRQJ3 tMUdJChzBKJ5Y49oc2V 3VRKwEFAjHOF9uQW5oJ 0soDkalwzpT3YkwSJlT bG6BAZ1vBUgpL7deYtw bwdgaE2jEmg+G39NYE1 QYOXLRF0UHij5G5RgRp wvdHI+IL27YPWaXL12l SCbvHPkc3apuUy5GgYq LBLvNPJ5lTijMTwet3Z dZHEaK37dkPZue1R8IZ RwtWsiuDLzQsMgoUA7g P0gBWuocxglm8qoxyhp Wbcks4krhj88cJ11T87 dIDghCQTqSOO6MPYdRB KrmUroxw6isB8nVc5+I Usor6dva1mgrEv4KyHj WYAsjlOvtHuxLER4l8Y tZj16H2XzlCvpu8BpJy u1cb34zLUxo4R5mUH2X HovZSEfbD8nINqpEeP5 QXWoWqZyuA72fATbOCs dZu4keMypaQmsQW0pHR OainksNREfyR3pRTIsf GSpvHnhSO0dFBIxurkp h250NzCfAUY7CQOkuCE rG3RmhY1oSpBzZBNhLH ApB6PxsKDeXGmjR821L XcqKnV0DAZoydEdN4Uu ESGbvKrdDhE4q9R0Sg4 Hy0YwkpwjODD6WNcxHX LaZcD4OpCqUxY2E4HwC zl7FEBmwHesXK7uJ5Zy RQAzjhhdikoijAK3LZQ bMSSftQ07xHTfVVveLi 4uf4G8r999VKXsYZQly Q13Wr9abKqlOOPibHMJ iJ0pdtdfe3pxyvxfUqF oKOFoRIy8ZZk8XULxxQ nkLxKzWWL1TbV7ZCA6t MQfzS7ahEjlvzdpsC5r Oyc+F58ufH5bSLL6GEX 2kltmJNRgetKlGY19PV 32O2TdPemqfIBbfON+P ZBlcxWldYmmDP2wZdEw o6mnw1ElRVbhT3PtQLH aRPjrXrp1JYHwPUU6dN W6fV6cYDKbUDnie3O5m JM3D8MehzGarf6hr2ih NZAyFRnfN92xuZGdh4D 2RUYheTM7SLUifZqlTe UmcI17Ypp+PGNvbGdyb 4QiDadzi9rem5ungRf5 IjMwJSIgdmFsaWduPSJ 4t3ZdWd30C55uEEmuKM RoPSIxNSUiIHZhbGlnb v7giW3aPa5+PGNvbCB3 vAK2wF8tGTZeWxF4MJw iZ583PaLbhAHgVnmeg7 zwb3fpyWh3NaNiSJUfx uTrgIgtEJG8d4OlRj82 N02hBQfxBQJzLQQiJQQ yDNJktObywc5jaJ4iKo 8+LQ2jw2ksja41nS78e HI+XNOpXDY1hCxdXWws QNOpvE8wAHdoEyC9SXK jIaSzaJ79cJMvVZexFy 3mpQphmEtzXI3zPCTzq qvqe011XhEju2dfVUSd hZOgDGpnKNX0D76dq3N 6NHLpDQGhQOK3hZX2pY 1hbGlnbjogbGVmdDsgd gCccJaqDOmyCShxD268 IHRvcDsnPlBhdGllbnQ eDuLvDKx7Y4UlTml8HK EnfKhzBI1kyKIeSDlnN k6fzMtgjFxkTI6dGZLa abqid133VhIii2qaXUW nrBPqNWlpLMM6P11re0 J0GCIiESCtMSU0xOJ7j N5jpHxlqxcqqXHplZyb bzCxeWqdGXdnGEfvD11 6IHRvcDsnPkJpcnRoIE BdfIQ6MK35LD31xRJzn 1H7vNK8M4OqMTPbqynk upanuQY4DWMrKKWxlO5 4Pr5ykLidJk7sSZGvYQ T2BKFmxWHlD4AvgL1kY zEeOKEwGEEcI7MovTYa EFpiB610LHetRpS3DJI smnRrR2ZhJWWkqXtoWh Y3m1C4Ax9BO3O0IS07A Q42nPJkf5T6eVH1K5Xx LVLkvlucthlwjCN1DTL yZGWycC01At4vuIoiNk 7eASKgYKS4JOYprWQsB 1YugA4xMgPjKGHqODMy S6FawPRnZPkaQ861RLj aTyO8BLQahuNmV2ViFL JiqFirRgJ1x0X7Ps7NS Bg9XP65WJ70uYWpv1J1 cSR2U8HnUCWzldvlljp fjSD7WFYwCAIlkR86Dl 8ziCvtLm7xTWJwTJV9G QAfzBImH2RlkZ8vDtOd YYUoXOCaB9VjkQKhSAy cE092OQnoYfN9IUGlnx VyY4HqFDXomIfyXpK3q 5B8Nz1FWZAxCT32WFV8 aTW9UW91WJ42I0ZpDdd vdGFibGU+PHRhYmxlIH dpZHRoPScxMDAlJyBzd GipSP7lEm8hHMGrCKJs kTnusFIbWrKdt4enXSL pVIycKA9jkOofN5RkjB U3AFYwx8o8Qm98S08hU 3JvdXA+JKPzmGZ7oXM4 pF6iXgTvNlW5ANirM60 4HoPefYKkHhiak0rnh1 xqfJj4MdS3DWRsspCkd MkaHWT8p8ZeXm38C19n IHdpZHRoPSIxNSUiIHZ geXbpup7sdD9nIs9+PG AweUP2vYX0cK3pOyGhY cB2QLmwZ704YcDwiAAa Idtnh1bwh6zysOf1YeX vZRAmrtCjoXahLIM3x6 LnIe24C2XgnEhud9SqQ mr0jb06xKJqe7W1vWG5 T2CuOEDixafxkGNdtSd sDR4pVLDwsmfuGLJciR 5tOPUsI4p9FvFqQdE9F EetI4EladL7JWGgiPCf NZjgWVK2D08ci8U2WSZ dGPInVBW3qVV3lI1xcC lnbjogbGVmdDsgdmVyd DcuAMfyUJbvS991XMHx gIxsEERhoF8hYTQjeOR ihGayVX9mMODckapeDs cOET5HZREBEahjPBsCI RJXDTLGRW86YP85zRLu z1X5yJG5C0SiJUWipwn cylgbeKR1VIUiBUZoyG 99rQFnTFueVe0jd9M7l 978YENnHEQvdO96Em6z nTorKSRroKMQwL0xcya fj1haktsySgIbEMBuYH x1YLh1ZZYzyEkfUcOlY OV3ClB9KIV7aMYomB2s xWvsfulvpB4oVse+MTI cKExmBEa8MJbhaOU+PH XbWLK2xMzeKQyeVXDdi C0dGPSzQ6o8ZePzLwN8 IOvkM7NcYPRgvmjvLq5 8uY5xMxQoJbB8PJnqL3 KyatM6QVAioYPmVKlnL KY2T66zc1S4QWKeMVLr LYY3vFR2cO1pmHhrzyt gbGVmdDsgdmVydGljYW qhCKpbG908XEOviMchE kU6KXlwUCUvGR07OU17 uHUae8F1oPY2W7AxBCL wxyiaafxppAL8XJNnJY IriW20sFFbUDrlEz2hf 8M4j871JKJbPGRwhG18 Dq7miPtqMGKmrZFPyI8 zeicam3msdisrMoVaWF QlZZk5OZa4THEdzUxlV zBwJGE7GbX6OOH0lTOb lN6lkWjbrixdpV1vByw +HdClHMdoBW63FS24cR Azb4S9cEG1C0GuPESdh wlvujotfRR5KGGrNTCv gE32vFGlTPikMf7sk1P 6x485BBCjIHMxvL05Ap 0wxRmkEXHbtNDBgF7av kepn2cyarjgKyCaBHDj NEi7OCo8EFBwxGvwIqK jJQG2GzY8XNQ3dXVvnN 3egQcmfsfjtI2dEyq+U nSxrNVqnB6aOF88TC81 L0ZsZwjtcHLbwKV+PHR hYmxlIHdpZHRoPScxMD IeZpNhyUpdEI2eNs4yJ GVyLWNvbGxhcHNlOiBj d0xwBTQcCDaqBB4bhLy iQ1QewNC9WDVll7w0Wq 12G62iI1JfpIH+PGNvb UN4jHL6mR4zYyQiNiW4 CQvaP089EpYvxYKiVwd ig4cvg2tuqDr9VyGcAD AlraIjyXbeJZR2t7QfO d97P69bDHyiTRJjUWBr OQEtFKUdzRqnqj0vyZ4 wIi8+SLCqrTW9yRP9cX 6wIaOtCfR2VNgsV577L kGjkIEwYnqdB83aM7Ll dXA+ZYLhSun4XOFuqFt dIQ4csSGqDJymBa6eLH N5QvHlHmGtEShdG9EhC XFsuxocldjwaSI6ESTa GXLrgD77Pr1ulVtfRf6 xBGJvJXP4ICXyiYTmQ0 QrsK4xQgCxTPJpPJGsT 1IeqPBaHNusQ587PIjg AtW8FLBmgfNdG8IgTKH pkIgzScU9r8N7Pu7KuK douRGoGX7jUhIaGGk3S 6EpOam0IHXwuFmmBE5k jNIdVHwjKu7bdKyuxNx gMX9lDSVtwvciz652Hw Cjq3coOFNpxVEnOQszX NH3B32ep3N4RACqKQTo TTO3zTP8jL0fwRbsehk gbGVmdDsgdmVydGljYW lpEKitO097DVBbyMmcI nPJCjb9O3SbIhy9EYYr wNctGO9inGBbHLlgOp1 uiPqijYpnGH7gSGRnbk mok188DoWic7rnOXUxz SMtWEgyCFT5V36an9Z8 EPWmXFGiCRX4sFJ2fB4 hbGlnbjogbGVmdDsgdm FevYfcUFiyKTmtM729Y HOzfDrmCf4NUsm8T6Db Pxn9JCCloPktUU5iaBU sAUbnPv1flXedwAcjXQ 2lVIUrqoiqz514YfInt 5xeMRWuoKNcDZriSZC4 L97xn1O4FCMmNMYmEXM 6rBB8iW6rfGmadrdrmD VmdDsgdmVydGljYWwtY LtdW182SGLrgQppZvMo eWVyOjwvdGQ+SE53sn0 4H5PdVnxvHsw4NKHiHX D3mTB2cH3qLRBkLTuwf 7O4nQS0K8OsffMxpv6s b2xs (more content not included)... Normal [facility] Priority Order-Juan 2021 Priority Order-STAT Comment Invalid Interpretation Code [facility] Comment on above: Result Comment: Rece ived Performed at: [facility] [address] [place], [place] [id number] [facility] Mina Dominiquefran Performed By: #### S ARS-CoV-2, GEORGE, [id number] #### [facility] [address] [place] [address] SARS-CoV-2, NAAon 05-25-2021 SARS-CoV-2 (COVID-19) RNA GEORGE+probe Ql (Resp) Not detected Invalid Interpretation Code Not Detected [facility] Comment on above: Result Comment: This nucleic acid amplification test was developed and its performance characteristics determined by [employer]. Nucleic acid amplification tests include RT-PCR and [...] detected) result in this assay. Performed at: [facility] [id number] PhD Shalom Gonzalez Performed By: #### S ARS-CoV-2, GEORGE, [id number] #### [facility] [address] [place] [address] Family Medicine Phone Visit - Telehealthon 05-22-2021 [...] 6 months ago. Has been using DayQuil [id number] with moderate improvement. Review of Systems Fatigue: [...] only communication with the patient located at [address] [place] [phone], with no one else. If it is [...] Patient verbalized understanding Ordered: Rapid COVID Antigen ([facility]) Telephone Est 5 to 10 minutes 52950 2. Fatigue (R53.83: Other fatigue) see above plan, rule out covid. Ordered: Rapid COVID Antigen ([facility]) Telephone Est 5 to 10 minutes 12607 3. BMI 27.0-27.9,adult (Z68.27: Body mass index [...] 1035F Telephone Est 5 to 10 minutes 70499 Follow-up With When Contact Information Irma Burt [...] Methamphetamines, Pre (more content not included)... Normal [facility] Comment on above: Result Comment: Elec tronically Signed By: Eleanor SKELTON CNP\.monique\Date and Time [...] height. This can be done either in [place]ian ([place] or metric measurements. Note that charts are available to help you find your BMI quickly and easily without having to do these calculations yourself. To calculate your BMI in [place] ([place] measurements, your health care provider will: [...] problems. ? BMI can be measured using [place]ian measurements or metric measurements. ? To interpret [...] 01/16/2005 Document Revised: 04/19/2018 Document Reviewed: 03/20/2018 [employer] Patient Education ? 2019 [employer] [facility] Physician Orderon 04-27-2021 Physician Order [id number]#1.00CD:127 [facility] Coding Summary.on 11-04-2020 Coding Summary. CD:[id number] YWa0sMb+PGhlYWQ+PE1 FJRBoJ33obTZhoT0WW7 nNIJ3PDPGXYZBNXG4ZN V9auMD8JInzI4QmclIt DcsczQJcBM49KLz8CGE 9uImnRNcfwZ7adHAtX6 z0YrQzMM09qE20YTizM OZrLfK7XqUknyaskGHt M9heEoOwzEBbMot+PHR hYmxlIHdpZHRoPScxMD PdShSitPffPE5xSr3vQ GVyLWNvbGxhcHNlOiBj p5htPRIsKYcmIV9ruOd jK0EqhXJ6MTQiz3b4Sc 48dHI+GGGfALB3gAhsP Hqym217VnVxm5okKQA3 iSDyLYopGFD3F19pq4L 4BEGuXTJkUVX9iRL9eU 9gbIkupjtmO9FgtGHqD vP9OEA7oDRstN1mzLol nyqfgK7uIpr+B05PQT4 KXYHYLL5HHie9D1KkEc wvdHI+XB24JWAhRV33v BMvbRUpd5twdFi7HiDf DXTfYRB6iKyzSDbsh3L rMQIzA28aiOYml7B3XV MgfAbsnFAeYwGljGQ5s L2cWEzalpqpu6dlbkds Svyby0ibuz44nC62T69 cSSobFVGiFNO0SNGhLU XcwOlqad4atF7nVh9+I Pbxw8hms8eiiRd1OeEm JTVyyzWopMafBVJ9h1Z sLm09B6BfgIvia0LxNh o6rl36dOJoe3G8zGD4O GjqDEHltQ4bWUnvOrM7 GYPeLoBsqL99bWXhPRq vNv6lvBryqLnoBF6xLA LalsfyFBAyfB4lVBNfv AStaIxyUH3xUNUwdtup q594HqPcSNB6UONdcOG yJ7AopD3lSmDhJWCgAO MtL3DndYKrQAdrZ124U JcvIpL2RFCmsrMvY9Ln JZOrmKuzIxL5m3K2Mm9 Wx8UlpaxiZXX6QIbcBE L4XtN4XtMpJgI2D7YsZ bs3MBSvgPtyYC5iW0Tu GTEohlqhxfeboZP8ZOW aNDCfsL88nKKbLBwrWx 0wg1M1s781DEIoERQzs L76Rl8aaSsfSMVvaYSC sH1vemibr9icotxiVkE uBMMtBAh3SOs2QHEnaB tmEwJrTTF9RcK4JLA6c ULgsQ5ocJqgxvxwhJ5h Oyc+J22qoL9nSGA4HKW 0asbjXUGxeyNvRL46GE 42H2YeHntkuJRenOE+P BZdmqTnmAymZI4eVgRm d5nwq4EzSDrdT1QhFNZ vBBrkHvb5VOMpVUX3nF S8qB4aNCCuDQijf4L6c VF5D6IzrsRimc9rl2mh WFErCGuaA82hkZBfm5G 9HSBhsOX1NTMecYhiVh EqlK43Zqy+PGNvbGdyb 3WqUzwul3ojb4fcfCu2 IjMwJSIgdmFsaWduPSJ 8p2LhXq75D07sVFfkPF RoPSIxNSUiIHZhbGlnb w0ieZ2bJy6+PGNvbCB3 yJU7sD6mHVOmRcS0AZq vR367WmTtfTRgZpzej9 kvy5dbuXt4ZpOvBQMxh nLtyCtmGND2t3TdOn57 N47aSBfnVDNrEOVzXPK aDEZzeOsgno8xdH9nEx 8+EN1fr8soaa26hJ11f HI+YLOpDCF4mMqyJBxb TDJdmX3kRUajStI3PUU kKiYceQ57uIUgPGzyZt 6epYjaqEddBT4cDGAth aavp412DzPuh5uzYTCp jGGwSKjpCQO2V48iv4A 3YUXjHHVpQEP2oJI2jT 1hbGlnbjogbGVmdDsgd vIpdLuzGKiwEUpcD938 IHRvcDsnPlBhdGllbnQ vFlVlYQm9Q4DjDbf6OR JedRwhIE2qnMMqAOomW w0teYilnCpoYE7eZZGb corcw443AbVaq2ntVTF vuAWeMPfoPDQ1Y39ro3 S0IYUkFGTuWZJ2xMT8m D3ivQwfprezbXWivInc kuTebTvnPYckCPkuT71 6IHRvcDsnPkJpcnRoIE QjgJS7AF80TW88nNQal 1X5rUN7L3TcUYOkaixy rpfwrXT2SHZiFOYbfY9 3Fx7siIfdGb3pDGGlSL J9SBYcjLDfZ4HsqU3oX bAuTKPtLAPnV6LiaWPr GUojW874BVpoIiN3UHA vxsMtL9KrKQUbrEfyPl L7e5L7Rn7IA4F5PY43B H42uSBnn7Q4gJH0F1Hm SYMzqveggluavRO7DXE wUVUdcB13Mo3rqIfcBv 4pSFWvASU9NUIesOZnP 0EmbL7eEpRnWZNcEICa H6SkqFUrJTwxW784AEp bJmJ4RWOpwoPiX0NrMU PwzBkcLbW1q6Q3Bv2VE Qo1WN16PC01kSZwo7Q6 bBQ3W3KbPLLonccxcui mkLF8IWPdXPCzdO02Cf 8cuBdsZp5pWTAkGZF1S NSzlNJjM1PbrP6bVdJv SKEvMKCfL8VagVGeLQe yD591TTuwUjH3CJWadk VtR5VxRBVpyGxfYsO7g 8D8Vc1ZYMNrSI06CSM2 kTI0TE78LE90O0OvTeb vdGFibGU+PHRhYmxlIH dpZHRoPScxMDAlJyBzd ZnxBR7iBt7oQSUoHYEd hHayfORmTzMos8qmSDA wQHeqDV1etKngK5QocK J0BHIbh6j7Qm06V17nQ 3JvdXA+BYUhaHD9gSA5 mU7eJrUhJgD1IQslH28 1XvNkaTLaHclzr7rbf4 xjgUw5HoW1HIStchGiv GxfUTS0p5EyMo23Z28y IHdpZHRoPSIxNSUiIHZ fxPnnoi4eaF5pPx8+PG HvcRA2bQC9iJ0tVcZgL rK4KXfyW067QbQqxOMz Ydtgh8ezp3jlyYi8FeS eAJAajlEfeNovRGD2s0 JfMe64C8HphLxzo0ExD mq6nz03jNFzj9L1aRB4 F1KaRQYeuifubQKgbLr pQO8rKLWtjrvlBPWrtY 9gFMDwC3z5TtJdZqK9C VseZ4WbedE0TCXttIOn RWlyAII2U89me2B5SXC cBTGjSPK9aWA3mV2exJ lnbjogbGVmdDsgdmVyd GxgGGejTNkhQ886AAJj cMbvNWTpuX0hKOPlrHH zbBgcIJ7mJTYskvabSr hJEV7ROSQELhxdGOgBP AYDRSZOSR61NS00iNBz h8H7jNP1R3QbFCOctdu lbxfsgCU4GZXpXEPvrZ 33xAHgYLikAk4hm6F5h 544WETrXMZhrK01Xv9s rYqpPCKkgLGLjK1yevu cw7gxucqdTfAmXFFoZG k2FXo4UMBpqSlfEmVxL NV1GrH1HZL9lYZtnK5m zHadekoibV9ePng+MTI wJLfoRBw6TXgcsSC+PH WvMOX7fVodPNmpRRVct Y2aUKGyS5n4ByLhWnV1 YXhzL2WiYPRdpnisBt7 5hW7fGtFwVeK2SDltP6 UywxZ8DCYiiVWmRLvfX FO1G82pg7Y1GTFwHCUy ZWU0jXC1cY4nvGsdojb gbGVmdDsgdmVydGljYW bgLCloL619USOypLaeL cI5XCkeSWHxHG02TZ73 oHYvf0U5bNV8I1DzPVK favvamehfzQS1JPUhFK KrdL74yJJnMVzoPz5kb 2Y8v544ODSjZTQjxQ81 Xa2voGptMHQauGFSuJ9 dbrgxq9pevrckCdBwGV QzSZx0HTo6GPYxkJbnM iOhGPH4MoH9EQR4jFWb yM1qsFyakynknR1iOsm +XtWrCAnfOV39ID02gK Lqp2H1kAP8V9OuFQTdo woevhnjfED6KAEsSOHl aI49fHYqAMaeLz2up9X 3n323ZHLgEMFmkA30Rr 9vqBqwVXAgtQZDbK5ea qtlc3hjdexjGvXpMOCe FBw4IHt9RKTitGgtRfS hXQH5FqN1IGE6iAPnyQ 5lvWqfkixkiR6pEla+T 0Q0rYY3yTDpxGazgCI+ CX05xs28V9PhUmbmCkb 9MBJqCAZ1jWF3eX4yXA RhHXnmf5F1hDP3M1Coq vLsjn2ze3iuGLTtPHwl B86noOHfz3G4QLSfkJC 3SCMqqFllXsMszV60Jn c+MTWieMuvi3OvZfdot 5hch1jjkEw6StDyLHTy goYqoDqcTOF2h6HoJz5 0P93sUEawKFOpNRCjHA JzETKfvVtsht9zuM7dF i8+ZLKdgCQ4gPO6pA5v PfMmXbR0AHjaW875ZoW enOXrHflhx3wag0djfN m8XaKgXYYlooKlzJojV FP6m3EzXr95Q1MvhRdu u6PtPwt7lg63xGKah5Y 8oTN1B6ZeUTAqzrnvtK BrnRjrLH1dINZfxelaK LBkkF1gVRUoD4h2XoRg ArL6SJtlZ2DkceB6VIM vdLSpLICwaTBZwZ2lov iwq5vewurzXzBxDBPjM Rz8JSi0TXQoxIizRqDq TDH5XuS8NEL1kJDykC8 knKrjzkzpoX8dMfe+UG d8f0pfxFFoCJ1fsVP9B P55MF60lEDom4G1sCN4 V6DzXFZymexlotrruSA 4MSVrRWHuuZ87Pu3hvE fnZe2wUEBcIOE6IAMbh UOgZ9YmzI1tUkPkDUCh MZPlM0NjdJXxGYwwP68 4OMrmDvY3YDGhaeGyJ9 ZqYPXwqUrzWcB1g0J9P g4RMC03TE74RO41oMJe r5P3yRO4W1AyVFCuscm fbwscgZA2PXGoIPLxjZ 38Tn1hmViqRs9fIGLzH JO5VJIzhVUtD7KeeS2d XsRyQHNoOPSqJ3EfgKA iEIosK258XElzXfI1DT YuhaLlW0MrLUKbxUyhU uC8x3G1Zh0HLd83PW10 LM95dQVxa3F0tBX5I8L oXZWogcjraifxyNW3IN FwBJLysM29Pv5brJypD e3fOIPvXBG8JJAfpQZf N8ZnzD0kOiZpYUMsQSH jW5DbmJXbIFckL371PS bnZtQ3AMRoxaBsH4SoF FBsaSovXsE8d2W9Nc3F TCagfeq6M9GkEtifwWH +EM06IYFiNN97dEPrpA Rnv0nmeFo1ZgApTALaW ZG8xIeaCDuaz7AjJLBs Y29s (more content not included)... Normal [facility] CT Chest w/ Contraston 10-29 CT Chest [...] 300 Contrast amount in ml's: 100 Normal [facility] Coding Summary.on 10-28-2020 Coding Summary. CD:[id number]:[id number] JAi4jVi+PGhlYWQ+PE1 PZFHvE34niBHhiM4YY9 fBRV2VGJEJNOSAZB3XZ Q2tsKN6NQcsJ1QbkkCt ObazqOJfCT45MBf5WNM 6xIoxNIyrtN2baTDkW8 j5ClBqHR38kP56HDwaY MHfQcG8UrFwsikjiRZk T8ekDcUsxFVlGib+PHR hYmxlIHdpZHRoPScxMD ZhFrOhnWppLE3xIf3sE GVyLWNvbGxhcHNlOiBj u7lbHDIcXEjmDZ9myAd rL2ItzDF9UJEem2n4Oo 48dHI+TSTrIFQ8yKhdN Ltaw866DqSjj3jgJHQ9 fMGzNYpdPRD3O26in9Z 7SQOpBXCsFDK6mXI5pQ 3umSowimztJ5PzoZDyG xR2QUV2oNEpxH8kjEpk jbtsbZ6dWez+Y65KED0 IVZOWJD9JVxe1N7AwUx wvdHI+TM27JEVbXF94h LAflWCvq3pwgYa4SvVb KPCkOFA7eAkoVMtmm2J jDDJtN43qlIXct5J5BV TxbVgunBSdHvGakLJ3h U5vIBsakpips1afvowx Tfyra7eqmx17aL02H51 pNVamOJVnWRJ7NRPwXY WsnMbwrn3msY3uLc1+I Uwzo4vik2ydnZy5VlTf ZBIgjnYvvNhqGUM1n7G hTm31W2VfoRkjq9HwLq y4bq48oGUcb6G5dSE8J ImtAYMqmJ3fQWmkCiJ9 EHHdRrWttL63zPNrENr dBb3pnOwzzVhpOM1bIT UvadsxRYAsjU1lMYCzs HGbfUpgOO1rEGDtninq u060DlKzCNG5TLEvfPN kQ0LjpI0oAgRzZNUxCM HtT7JzcDZsCPoeG112K GuaXaM5HVWnxpRfO4Gx WRVtqWhtCeK1w9V4Nr8 Ff2IrcgjmGMD6EZiiIZ G5AiMdNcEiWjT6T4QmZ qi6KAIrnQinDO2uE4Ht DLYgpffsqflzgRQ8NVI rNIKauL11pOFbAQchGe 5vt5O5d417NIOkJIAvt I33Xe5ouQqjTNVkwVZP wI9zrljhp5qbkjmzIaK uUMNsPEg7VPh5RNGxjD tqQkCaLKH0EuJ6UDU9u TAarM9lmVdgsaptgX4c Oyc+J16gwH8sYVF3COD 8nyzwWMGuqvNpQN30PX 93K4VhSvfejBKocZP+P DSzxiChnJmnRD6xIsXu b2rdn7XqAJejI4VtKQC kUQaiJri7XTRjGGJ8gB U3hG3xLPQhAYknz4K7b GF7W3SgzaXeaa8ig0gh ONOnVNmnU00ymRVel5V 0LHLxtFS2PFWtqJelZb IpgI34Wtp+PGNvbGdyb 9GsPuuur4kze3fyoAl6 IjMwJSIgdmFsaWduPSJ 8m4IuRz07E61bJKmaOC RoPSIxNSUiIHZhbGlnb z5lgA1jYn0+PGNvbCB3 zHC9oY8wIYSiFdB5DHj vR356HdZzdMSqFvkqu2 fvq7hkrYr2GyKbZXZtr aKxyTamHUC0n1JlVw75 B95sRIjnPOQuVUQnAWM yNRNogXsyzs5ztA9gIt 8+FP7zj7pjah56xX90j HI+OYJoBHM4kFenCYfq SWNmaO8pPEooWlQ3YTI bEiBhfH34yNUjPEuaQg 1tlYhlmYuyJD4mKWGdp dxss838YrVta3xuZGFk gGJnPVsqUUN9E03tn4K 2QXYmAHTjXUQ1jQM5hT 1hbGlnbjogbGVmdDsgd nSfjTlvVWefOVfwL815 IHRvcDsnPlBhdGllbnQ uUnFmVCo1I7QlDuc6KU ItyJjzKZ6stFFbMGehD b9jrCjzaAiqTB8dUKAd ouqwc427KuMgm2cgSSW vaUUxQCaxIDL5Y66oi3 T0NIJgEPZhOMG5aYN9z N7hwJiphppxdYBprAdh pzRxuNscOSupSJxyK80 6IHRvcDsnPkJpcnRoIE FnxOE7BI98QH71wAHjk 5R9kGC1L4JzTQRukmpi dhnylTL1OPJuUOAsoN3 9Ci4noQxcPj6gUVZmOZ V3CAJkhCCxU4WlcO2sT uDsUJVsDPSgL7FixUSd LTqnJ715EQctZkP8BWP ckfGiK5NwBABhlXbdDe G1w7X2No1OH3O4IS63F H55dJVuz7R8yNH1U0Rc VMRdhaknytbtxWX2FGJ hVXKsdO56Hd1frTgrNu 6pEBDaEXL6EIVlkHGaU 6UfoO6wWnLsALNkYHSh L4LyuCUeNPkbT913IKn aFyH3FPXiacMkL7NpQI IkeRhwDbU1k2S6Xs4BC Kg6BD30CA10iVSkf2P3 jWL2J8VaEDLdezdptpd iuCO4HUWlTSXuqP54Wg 8ckIytOx5iMKJhYYU7J CXrcFPaX0EiwP2jBvWa MJOjHBBiE6PehVDaIKz cB948HAobOqI6WVCqez YeP2FjOHAkvFbcMdV3o 7U8Kb0KIIIaDN05XDJ2 dDM2NG36KJ41B0QvQqf vdGFibGU+PHRhYmxlIH dpZHRoPScxMDAlJyBzd GdnQU3hHg6wBQAaGDZd gAaibRKxIiAay1yiDRH wNGanXD8kfHixH5RgcQ E0QUVil0o6Rp68P93xO 3JvdXA+PRInpJD2uGH7 iH4gCkMmMgV6BXscT74 3CpAavFRqEdecd4aux2 iqjQe2WxR6NTPibjEzq FvlALA3z0UqAu65F09t IHdpZHRoPSIxNSUiIHZ siFjyyu1ghP9bMr9+PG DglRK3tXS8wS1kWdCkC bZ4KRlwB163IcDkaMYh Rcogt0brk0hwrIo4AnM cGKPejjKkoNgdPTN9o6 JpVl48C8KglWymx7NvL ge1sg61aRMzn1Z1yTO6 X2JhGGLddvaqbRUaqHi cMU8eHLTicsufUVJfdB 7pLSIhX2p1MbKjZoB1S ErlH1KmgxV1QFCdtAEr YFhpXNY5N25zq5T9OCQ vLOIwZWZ9nHK5vE8fvB lnbjogbGVmdDsgdmVyd PxrMSryKYgjY756POUj tKawWKKlqF9fHPZbuAP geRbcNB1jICLlsmxpNt gJDP9JEOTFCulaEKnLN HRBHDFMYZ38NM64aUPs e0V3xBK9O5LpPWStedd kxnwdxPG0AWObWQZjsP 27uNLfFPveEp9it3T2t 911OAOhWYSvlY04Ab7y fBfrRYQqfKFBkV3yesb lz7ablgwmHoVrJXWmKS o7ECy0ORPfcUlwIkXgR UL4GtJ0FIK7zAOtoW6q aSsaqcwejB2dGdo+MTI rCJblZRx4YEzxjBY+PH CfDHH8wKlcMIjdELMfi V8yLKYvR4f1MjHoZzQ9 NElxS6CdFDAisvzbQq6 9cK1tQpPqEjZ4UXeqZ7 MiboR5INOvhVBkOOgcO LT8F83gq0Y7XGRwMMAr XQS1oOB0gN3eqUguroq gbGVmdDsgdmVydGljYW jfPOmiU762YZRkvNwdV oX8CBahHAUbWV41LE66 yNJeo3O5dPY9E8YcEHK eunnwdllkgOA4LEMqNU RohX03nLLfPEsoMp4fj 5I1r507LXRqEMOovM67 Ou6yfVavOBEpaTYCvR6 kueari4ejiubqHpDpMU DvDYa5RHz7OYKtdFtxE zLuBQJ0HlH0DKR4xYAr xZ7pmRdjspzciH6fVgs +GqTpKOfvTE23RI29bU Mos6T5pJX7X2LmYQQpo yfdkaefhOY4BOIvQOPw aF58gOKhSLiwRm5vp7W 0t408HNEuEZFkfZ79Us 0wlDwgYMTfgPOZlC4uf gupu0knuoxjSmTsFXHp YZp1MIq1VBUapLalUjC tHVU2TeO2KRD9nHSapO 4snUhkqwkxgZ2pOwf+T 5N2zSQ8wICeyHdhaUK+ YW31vv69J9WvAxqfRyw 6JQLmLUN0fFQ4rE8jFQ HhPBbxe2J0sNT4B2Znq jHvxx9iz2obWWVqZFla E82zzNDlj5R0BFZalEA 5DHHfjZucSzLzfE64Me c+DOYgyItli9VnZthpu 0gal1kelFv0IvJbWXPj nbLkwRkmYUK0o8LsDx0 5J34kOPjfYAPnJVEdWD WkSSIkiMmlts6mlT0vN i8+BJPxcQS4cIC3xO3q WyZrAnC4ULqwP139HzC dsNAbYztdt5lsl8liiQ s0LcEnPOVboxTgxIxlL WP3d8KwRp14E1UhvIfh t1VfUoe7sh31eTJrx5J 7pGR9L8RmYZShbueebQ LkyPetKU7mVEUwcdebX OZvhK8eIXUhP1h3NlLf PfX4VVhfA7TsnaS4PTM vtSUtLGGutTOZsB9uxg ufz0cdddgjIjKvGKDhU Ta9FUb5RGBvvQzbUcTb KMV9BkE4GMD8nCJvyB7 thTdxiudofC5cDxf+UG s7k5dlbEQqPL0dnUD7W N15OW71kLEnb8O6oKO5 X5JoZWLvofyjksqqlFU 4UFVxNQNgqN48Dd9wzK qpIp6iIOXcVCV1PFFsk ASkH1IjvY2lQqJlDPFw SVUjJ0ZtaEKeVYheI58 5WVfwJeM6KIQujaQiS5 RhFXJubVieRpN8n5R6M i9MYD11NL76WT72qBHl q4F6cUK8X4BhBTHgoba fizhkiXA0JRZeNIBnwO 72Jr1vkSlzOe3aZLLhH OG1ADWxfJLkX1McsJ9z PoYhPZHrOREzV2EzvFB rJKsgR634BAbgFeO0GN JegeXsF2KsOSChgYbbQ mX1p0A5Sk0JIo64II16 IM96oBOij3X2nKW7U6H uFXJlkjxnumfikWX0DI KsURPdmI26Br1izImkW a5dPOWpSYQ1LSGqbUKl P6FxpK9nVlUrMBCiKIY oR2JhtZDnBUmxG392OC msGlZ7IDXmqyJxS1ZrV VHoiVrgBfT1x1R0Zp4Y VBuisxq4Q2ZrTksovVU +MG23LHNdOW10xNOjcY Szx1eafLw6ArJuSCLhW LO9uXhdGCkmd5TvDNSy Y29s (more content not included)... Normal [facility] Consent for Treatmenton Consent for Treatment [id number]#[id number]:127 Normal [facility] Physician Orderon 10-21-2020 Physician Order [id number]#[id number]:127 [facility] Consent for Treatmenton Consent for Treatment [id number]#[id number]:127 Normal [facility] Physician Orderon 10-19-2020 Physician Order [id number]#1.00CD:127 Normal [facility] XR Chest 2 Viewson 1 XR Chest 2 Views Exam Date/Time: 10/19/2020 [...] Ball M.D. Transcribed by: SHAYNA Technologist: BECKI Normal [facility] Vital Signs Date Time Vital Sign Value Performing Clinician Facility 07-26-2023 11:27-0500 Body height 170.2 cm Lizeth Jasso MD Work Phone: [facility] 06-12-2023 13:00-0500 Body height 170.18 cm Shun Hill Other [facility] Other 06-12-2023 13:00-0500 Body mass index (BMI) [Ratio] 35.24 kg/m2 Shun Hill Other [facility] Other 06-12-2023 13:00-0500 Body weight 102.06 kg Shun Hill Other [facility] Other 03-15-2023 12:29-0400 Diastolic blood pressure 89 mm[Hg] DO Irma Burt Work Phone: [facility] 03-15-2023 12:29-0400 Heart rate 70 /min DO Irma Burt Work Phone: [facility] 03-15-2023 12:29-0400 Respiratory rate 16 /min DO Irma Taverase Work Phone: [facility] 03-15-2023 12:29-0400 SaO2% (BldA) [Mass fraction] 100 % DO Irma Burt Work Phone: [facility] 03-15-2023 12:29-0400 Systolic blood pressure 132 mm[Hg] DO Irma Burt Work Phone: [facility] 03-15-2023 08:54-0400 Body height 170.18 cm DO Irma Burt Work Phone: [facility] 03-15-2023 08:54-0400 Body weight 90.71 kg DO Irma Taverase Work Phone: [facility] 02-08-2023 14:45-0400 Body height 170.18 cm Shun Hill Other [facility] Other 02-08-2023 14:45-0400 Body mass index (BMI) [Ratio] 34.92 kg/m2 Shun Hill Other [facility] Other 02-08-2023 14:45-0400 Body weight 101.15 kg Shun Hill Other [facility] Other 02-08-2023 14:45-0400 Diastolic blood pressure 80 mm[Hg] Shun Hill Other [facility] Other 02-08-2023 14:45-0400 Systolic blood pressure 131 mm[Hg] Shun Hill Other [facility] Other 01-16-2023 10:35-0400 Body height 170.18 cm Aydee Nadiya Other [facility] Other 01-16-2023 10:35-0400 Body mass index (BMI) [Ratio] 35.2 kg/m2 Aydee Nadiya Other [facility] Other 01-16-2023 10:35-0400 Body temperature 98.3 [degF] Aydee Nadiya Other [facility] Other 01-16-2023 10:35-0400 Body weight 101.97 kg Aydee Nadiya Other [facility] Other 01-16-2023 10:35-0400 Diastolic blood pressure 66 mm[Hg] Aydee Nadiya Other [facility] Other 01-16-2023 10:35-0400 Respiratory rate 18 /min Aydee Nadiya Other [facility] Other 01-16-2023 10:35-0400 SaO2% (BldA) [Mass fraction] 98 % Aydee Nadiya Other [facility] Other 01-16-2023 10:35-0400 Systolic blood pressure 105 mm[Hg] Aydee Nadiya Other [facility] Other 09-23-2022 10:45-0400 Body height 170.18 cm Aydee Nadiya Other [facility] Other 09-23-2022 10:45-0400 Body mass index (BMI) [Ratio] 35.13 kg/m2 Aydee Nadiya Other [facility] Other 09-23-2022 10:45-0400 Body temperature 99.2 [degF] Aydee Nadiya Other [facility] Other 09-23-2022 10:45-0400 Body weight 101.74 kg Aydee Nadiya Other [facility] Other 09-23-2022 10:45-0400 Diastolic blood pressure 80 mm[Hg] Aydee Nadiya Other [facility] Other 09-23-2022 10:45-0400 Respiratory rate 18 /min Aydee Nadiya Other [facility] Other 09-23-2022 10:45-0400 SaO2% (BldA) [Mass fraction] 98 % Aydee Nadiya Other [facility] Other 09-23-2022 10:45-0400 Systolic blood pressure 125 mm[Hg] Aydee Nadiya Other [facility] Other 09-04-2022 11:20-0400 Body height 170.18 cm Aydee Nadiya Other [facility] Other 09-04-2022 11:20-0400 Body mass index (BMI) [Ratio] 31.32 kg/m2 Aydee Nadiya Other [facility] Other 09-04-2022 11:20-0400 Body temperature 97.8 [degF] Aydee Nadiya Other [facility] Other 09-04-2022 11:20-0400 Body weight 90.72 kg Aydee Nadiya Other [facility] Other 09-04-2022 11:20-0400 Respiratory rate 18 /min Aydee Hearn Other [facility] Other 09-04-2022 11:20-0400 SaO2% (BldA) [Mass fraction] 99 % Aydee Hearn Other [facility] Other Encounters Encounter Date Encounter Type Care Provider Facility Start: 08-31-2023 End: 09-04-2023 ambulatory FROYLAN RAMOS [facility] Start: 08-15-2023 End: 08-15-2023 ambulatory IRMA YI Not Available Start: 07-26-2023 Chart abstracting Lizeth Jasso MD Work Phone: [facility] Start: 07-18-2023 End: 07-18-2023 ambulatory SAGAR LUKE Not Available Start: 06-20-2023 End: 06-20-2023 ambulatory Shun Hill Other [facility] Other Start: 06-20-2023 Telephone encounter Shun infante [facility] Start: 06-19-2023 End: 06-19-2023 ambulatory SAGAR LUKE Not Available Start: 06-12-2023 End: 06-12-2023 ambulatory Shun Hill Other [facility] Other Start: 06-12-2023 Office outpatient vi sit 15 minutes Shun Hill [facility] Start: 05-01-2023 End: 05-01-2023 ambulatory Shun Hill Facility:[facility] Start: 05-01-2023 End: 05-01-2023 ambulatory DO Irma Burt Work Phone: [facility] Work Phone: Start: 05-01-2023 End: 05-01-2023 Patient encounter procedure DO Irma Burt Work Phone: [facility] Work Phone: Start: 04-10-2023 End: 04-10-2023 ambulatory Shun Hill Facility:[facility] Start: 04-10-2023 End: 04-10-2023 ambulatory DO Irma Burt Work Phone: [facility] Work Phone: Start: 04-10-2023 End: 04-10-2023 Patient encounter procedure DO Irma Burt Work Phone: [facility] [place] Work Phone: Start: 04-06-2023 End: 04-06-2023 ambulatory Shun Hill Other [facility] Other Start: 04-06-2023 Telephone encounter Shun Haleleojoselyn infante [facility] Start: 03-20-2023 End: 03-20-2023 ambulatory Shun Hill Other [facility] Other Start: 03-20-2023 Telephone encounter Shun Genarojoselyn infante [facility] Start: 03-19-2023 End: 03-19-2023 ambulatory Shun Hill Other [facility] Other Start: 03-19-2023 Telephone encounter Shun Genarojoselyn infante [facility] Start: 03-15-2023 End: 03-15-2023 ambulatory Shun Pascale Hill Facility:[facility] Start: 03-15-2023 End: 03-15-2023 Admission to same day surgery center DO Irma Burt Work Phone: [facility] Work Phone: Start: 03-15-2023 End: 03-15-2023 ambulatory DO Irma Burt Work Phone: [facility] Work Phone: Start: 02-26-2023 End: 02-26-2023 ambulatory Shun Hill Other [facility] Other Start: 02-26-2023 Telephone encounter Shun Moncada ck [facility] Start: 02-08-2023 End: 02-08-2023 ambulatory Shun Hill Other [facility] Other Start: 02-08-2023 Office outpatient ne w 45 minutes Shun Hill [facility] Start: 01-16-2023 End: 01-16-2023 ambulatory Aydee Nadiya Other [facility] Other Start: 01-16-2023 Office outpatient vi sit 15 minutes Aydee Nadiya [facility] Start: 09-23-2022 End: 09-23-2022 ambulatory Aydee Nadiya Other [facility] Other Start: 09-23-2022 Office outpatient vi sit 15 minutes Aydee Nadiya [facility] Start: 09-04-2022 End: 09-04-2022 ambulatory Aydee Nadiya Other [facility] Other Start: 09-04-2022 Nursing evaluation o f patient and report Aydee Nadiya [facility] Start: 07-12-2022 End: 07-12-2022 ambulatory Perla Yulisa Other [facility] Other Start: 07-12-2022 Office outpatient vi sit 5 minutes Perla Yulisa [facility] Start: 07-07-2022 End: 07-07-2022 ambulatory Aydee Nadiya Other [facility] Other Start: 07-07-2022 Encounter for other preprocedural examination Aydee Nadiya [facility] Start: 02-17-2023 Nursing evaluation o f patient and report Aydee Nadiya [facility] Start: 02-03-2022 End: 02-03-2022 ambulatory Maria Guadalupe Powers Other [facility] Other Start: 02-03-2022 Office outpatient vi sit 5 minutes Mariag Uadalupe Powers [facility] Procedures Date Procedure Procedure Detail Performing Clinician Start: 05-25-2023 Assay of thyroid stimulating hormone tsh Not In System Ref Prov Start: 05-01-2023 Ultrasound elastogra phy of liver DO Irma Burt Work Phone: Start: 04-10-2023 CT of abdomen with contrast DO Irma Burt Work Phone: Start: 03-15-2023 Colonoscopy DO Irma Santa trevzaheer Work Phone: Start: 12-13-2022 HIV 1&2 AB/AG [...] Td Vaccines (3 - Td or Tdap) [facility] Start: 09-17-2023 End: 09-17-2023 Patient encounter procedure 09/17/2023 8:45 AM EDT Office Visit [facility] [address] [place] [id number] Lizeth Jasso MD [address] [place] [address] [facility] Start: 09-17-2023 End: 09-17-2023 Patient encounter procedure 09/17/2023 7:30 AM EDT Appointment [facility] [address] [place] [id number] [facility] Start: 05-01-2023 [facility] Start: 03-15-2023 [facility] Start: 01-19-2023 COVID-19 Vaccine ( season) COVID-19 Vaccine ( season) [facility] Start: 01-19-2023 Influenza vaccination Influenza Vacc ine [facility] Start: 12-30-2021 Adult BMI Screening Adult BMI Screen ing [facility] Start: 2006 Screening for malign ant neoplasm of cervix Pap Smear [facility] Start: 1997 Depression Screening Depression Scre ening [facility] Start: 1997 Tobacco Screening Tobacco Screening [facility] Immunizations Immunization Date Immunization Notes Care Provider Fa cility 02-03-2020 influenza virus vaccine, unspecified formulation Lizeth Jasso MD Work Phone: [facility] Payers Date Payer Category Payer Private Health Insurance [id number] 2023 Self-pay [id number] 2018 Private Health Insurance [employer] A ETNA POS II [id number] 2018-Present [phone] [address] [place] [address] [id number] 1985 Unknown [id number] 1985 Unknown [id number] 1985 Unknown [id number] Medicaid [facility] [id number] Private Health Insurance [id number] Unknown [employer] [id number] Unknown [id number] Unknown [id number] Unknown [id number] Social History Date Type Detail Facility Start: 06-30-2020 End: 07-26-2023 Sex Assigned At [facility] Other Start: 03-15-2023 End: 03-15-2023 Tobacco smoking status AKIS Ex-smoker (finding) [facility] Start: 1985 Sex Assigned At Female F [facility] Start: 11-17-2020 Tobacco smoking stat us [facility] Smokes tobacco daily [facility] History of tobacco use Tobacco U se Types Packs/Day Years Used Date Smoking Tobacco: Every Day Vaping/E-cigarettes Smokeless Tobacco: Never [facility] Start: 11-17-2020 Tobacco use and exposure Smokeless tobacco non-user [facility] Start: 07-26-2023 Alcohol intake Current drinke r of alcohol (finding) [facility] Start: 06-30-2020 End: 07-26-2023 History of Social function [facility] Childcare Unknown [facility] Start: 11-17-2020 Alcohol Comment social [facility] Start: 05-04-2023 [facility] Start: 1985 Sex Assigned At Not on file P [facility] Goals Date Patient Goal Desired Activity /State Clinical Notes 02-03-2022 to 08-31-2023 Note Date & Type Note Facility 08-31-2023 Note XR FOOT LT MIN 3 VWS Procedure: Left foot radiographs performed Number of views:3 History:Pain Comparison:None Findings: There is no fracture, dislocation, or destructive lesion. Soft tissue edema is seen overlying the dorsum of the foot Impression: Soft tissue edema. No acute fractures or dislocations are seen. Finalized by Mayelin Pinto DO on 08/31/2023 11:23 AM [facility] 06-12-2023 Evaluation note Encounter Date Diagnosis Assessment Notes May, Diarrhea (ICD-10 - R19.7) Patient reports that she is about 7-8 weeks gestational Patient reports improvement on Creon with occasional flare Patient reports that she is taking a fiber supplement May, Fatty liver (ICD-10 - K76.0) Patient did have a FibroScan that indicates fatty liver and minimal scaring, this will be reviewed [facility] Other 11-17-2023 Evaluation note* Encounter Date Diagnosis Assessment Notes Treatment Notes Treatment Clinical Notes Mar, Exocrine pancreatic insufficiency (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) [facility] Other 10-31-2023 Evaluation note* Encounter Date Diagnosis Assessment Notes Treatment Notes Treatment Clinical Notes Feb, Alternating constipation and diarrhea (ICD-10 - R19.8) Feb, Fecal urgency (ICD-10 - R15.2) [facility] Other 10-30-2023 Evaluation note* Encounter Date Diagnosis Assessment Notes Treatment Notes Treatment Clinical Notes Feb, Alternating constipation and diarrhea (ICD-10 - R19.8) [facility] Other 10-26-2023 Procedure [facility]10-09-2023 Evaluation note* Encounter Date Diagnosis Assessment Notes Treatment Notes Treatment Clinical Notes Feb, Alternating constipation and diarrhea (ICD-10 - R19.8) [facility] Other 09-21-2023 Evaluation note* Encounter Date Diagnosis Assessment Notes Treatment Notes Treatment Clinical Notes Jan, Alternating constipation and diarrhea (ICD-10 - R19.8) WORSENING DIARRHEA AND CONSTIPATION OVER THE PAST YEAR. DOES HAVE SOME NOCTURNAL AWAKENINGS WITH THE DIARRHEA. CAN GO 4-5 DAYS WITH OUT A BOWEL MOVEMENT WHEN SHE IS CONSTIPATED. WILL ORDER IBS WORK UP WILL PROCEED WITH COLONOSCOPY [facility] Other 08-29-2023 Evaluation note* Encounter Date Diagnosis [...] no improvement in 2 to 3 days [facility] Other 2023 Evaluation note* Encounter Date Diagnosis [...] no improvement in 2 to 3 days [facility] Other 04-17-2023 Evaluation note* Encounter Date Diagnosis Assessment Notes Treatment Notes Treatment Clinical Notes Aug, Contact with and (suspected) exposure to other viral communicable diseases (ICD-10 - Z20.828) [facility] Other 02-22-2023 Evaluation note* Encounter Date Diagnosis Assessment Notes Treatment Notes Treatment Clinical Notes Jun, Contact with and (suspected) exposure to covid-19 (ICD-10 - Z20.822) [facility] Other 02-17-2023 Evaluation note* Encounter Date Diagnosis Assessment Notes Treatment Notes Treatment Clinical Notes Jun, Preoperative clearance (ICD-10 - Z01.818) [facility] Other 09-16-2022 Evaluation note* Encounter Date Diagnosis Assessment Notes Treatment Notes Treatment Clinical Notes Jan, Contact with and (suspected) exposure to covid-19 (ICD-10 - Z20.822) [facility] Other Evaluation note* Diagnosis Onset Date Resolution Status Diarrhea acute [facility] Work Phone: Evaluation noteNo InformationNost. [facility] [employer] Other History general Narrative - Reported* Type Description Date Medical History ANXIETY AND DEPRESSION [facility] Other Hospital Discharge instructions Additional Instructions DISCHARGE [...] if you have any problems. -Office number [phone] Work Phone: InstructionsNot on filedocumented in this encounter [facility] SystemReason for visit NarrativeRED EQUINOX, ANTIGEN PROCEDURE TESTNost. lou[facility] behavioral medicine institute [employer] Other Reason for visit NarrativeNEEDSNEGATIVE, RAPID COVID TEST FOR PROCEDUREGolden [employer] Other Summary Purpose Family History No Family History Records Found Relationship Condition Age at Onset Recorded Date/T fang father Heart disease Unknown Advance Directives No Advanced Directives Records Found Advance Directive Response Recorded Date/ Time Advance [...] section and content) DATE CREATED AUTHOR 08/24/2021 [facility] DATE CREATED AUTHOR AUTHOR'S ORGANIZ ATION 05/09/2023 [facility] DATE CREATED AUTHOR AUTHOR'S ORGANIZ ATION 08/17/2023 [facility] DATE CREATED AUTHOR AUTHOR'S ORGANIZ ATION 09/04/2023 [facility] REASON FOR VISIT (unrecogniz ed section and content) RAPID COVID FOR PROCEDURECOV ID TESTFEVER BODY ACHES SORE THROATBODY ACHES, HEADACHE, FEVERCONSULT -DIARRHEAlab ordersPOSTING SHEET ORDERClinicalCt Scan/Creon scriptPatient here for follow up colonoscopyCREON TO [facility] Care Teams (unrecognized sec tion and content) Team Status: Active Member Role Status Dates Irma Burt DO Primary Care Provider Active Team Status: Inactive Member Role Status Dates Shun Hill MD Attending Provider Active Irma Burt DO Primary Care Provider Active Team Status: Inactive Member Role Status Dates Irma Burt DO Primary Care Provider Active Shun Hill MD Attending Provider 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 [facility] [employer] provides no warranty or guarantee of the accuracy or completeness of information in this document.
[2023-09-13 05:59] VITALS: BP 125/72; PULSE 104; TEMP 36.5
[2023-09-13 06:46] LABS: Bilirubin Urine NEGATIVE (NEGATIVE); Blood Urine NEGATIVE (NEGATIVE); Clarity Urine CLEAR (CLEAR); Color Urine YELLOW (YELLOW); Glucose Urine UA NEGATIVE (NEGATIVE); Ketones Urine NEGATIVE (NEGATIVE); Leukocyte Esterase Urine TRACE (NEGATIVE); Nitrite Urine NEGATIVE (NEGATIVE); Protein Urine NEGATIVE (NEG/TRACE); Specific Gravity Urine 1.015 (1.005-1.025); Urobilinogen Urine 0.2 EU/dL (0.2-1.0)
[2023-09-13 06:48] LABS: Urine Microscopic Indicated YES
--- NOTE | 2023-09-13 07:00 | US_ITS ---
[place] [id number] Patient Name: GONZÁLEZ LOMELI MRN: [id number] date: 1985 Sex: F Assigned Patient Location: [facility] Current Patient Location: [facility] Accession/Order Number: [id number] Exam Date: 09/13/2023 07:30 Report Date: 09/13/2023 07:48 At the request of: SAGAR BUTLER Procedure: US OB amniotic fluid vol EXAMINATION: US OB amniotic fluid vol HISTORY: Leaking of Fluid COMPARISON: No relevant comparison available. FINDINGS: position: Transverse Amniotic fluid volume: 13.3 cm, 5th-95th percentiles 8.7 2023.1 cm Largest fluid pocket: 5.5 cm Heart rate: [36 bpm Placenta: Anterior Gestational age: 20 weeks 2 days US/US OB amniotic fluid vol IMPRESSION: Normal amniotic fluid index Electronically authenticated by: MUSTAPHA COLES Date: 09/13/2023 07:48
[2023-09-13 07:01] LABS: Bacteria Urine SMALL #/HPF (NONE SEEN); Mucus Urine NONE SEEN (NONE SEEN); RBC Urine NONE SEEN #/HPF (0-2)
[2023-09-13 07:02] LABS: Cast Seen? NONE SEEN #/LPF (NONE SEEN); Crystals Seen? None Seen #/HPF (None Seen); Squamous Epithelial Cell Urine MODERATE #/LPF (NONE/RARE); Urine Culture Indicated YES
--- NOTE | 2023-09-13 07:33 | W.PC.ACHO ---
Registration Status: ADM JOHNNY Primary Language: Preferred Language: Report given to Mervat FERRER at 0705.
== END 2023-09-13 08:13 | disposition home or self-care (01) ==
LOC: FBC 05:40
PROVIDERS: Admitting Provider Obstetrics & Gynecology; Visit Provider Obstetrics & Gynecology
DX: Z03.71 Encounter for suspected problem with amniotic cavity and membrane ruled out (principal); O26.892 Other specified pregnancy related conditions, second trimester; Z3A.20 20 weeks gestation of pregnancy
CPT/HCPCS: 76815; 81001; 87086; 87150; 87186; G0378; G0379

== ENCOUNTER 2023-10-22 07:39 | Outpatient (OUT) | payer OTHER, SELFPAY ==
--- OUTSIDE RECORDS SUMMARY | 2023-10-22 07:43 | XMS_ITS | CCD ---
Author Organization [facility] Care Team Providers Care Pharmacy Technician Instructor Name Role Phone Maria Guadalupe Powers Unavailable NadiyaAydee anderson Unavailable Perla Márquez Unavailable Shun Hill Unavailable MD Shun Hill Attending Provider [phone] DO Irma Burt Primary Care Provider MD Shun Hill Attending Provider DO Irma Burt Primary Care Provider Shun Hill Admitting Unavailabl Irma Broussard Primary Care Unavailable Shun Hill Attending Unavailabl Shun Choudhury Attending Unavailabl Shun Choudhury Admitting Unavailabl Irma Broussard Primary Care Unavailable Shun Hill Admitting Unavailabl Irma Broussard Primary Care Unavailable Shun Hill Attending Unavailabl e No Pcp, No Pcp Primary Care Provider Unavailabl FROYLAN Emerson Referring Unavailable NO PCP, NO PCP Primary Care Unavailable JASSO, KAITLYN Referring Unavailable NO PCP, NO PCP Primary Care Unavailable LUKE, SAGAR R Referring Unavailable NO PCP, NO PCP Primary Care Unavailable JASSO, KAITLYN Attending Unavailable LUKE, SAGAR R Referring Unavailable NO PCP, NO PCP Primary Care Unavailable LUKE, SAGAR R Referring Unavailable NO PCP, NO PCP Primary Care Unavailable CATHERINE GASPAR Attending Unavailable JASSO, KAITLYN Referring Unavailable NO PCP, NO PCP Primary Care Unavailable LUKE, SAGAR Attending Unavailable LUKE, SAGAR Attending Unavailable IRMA YI Attending Unavailable LUKE, SAGAR Attending Unavailable IRMA YI Attending Unavailable Medications Current Medications Medication Drug Class(es) Dates Sig (Normalized) Sig (Original) amoxicillin 500 mg oral capsule (2 sources) Penicillin-class Antibacterial Start: 07-26-2022 take 1 capsule by mouth every eight hours Amoxicillin 500 MG 1 capsule Orally three times a day for 10 day(s) Jul, Active amylase 548051 unt / lipase 28464 unt / protease 380120 unt delayed release oral capsule (3 sources) Start: 04-06-2023 take 2 capsules by mouth three times daily at mealtime Creon [id number] UNIT 2 capsules Orally three times a [...] 1 tablet by mouth twice daily Sutab 1924-294-627 MG 12 tablets the first dose the [...] 5 day(s) September, Not-Taking 84 hr estradiol 0.06574 mg/hr transdermal system (4 sources) Estrogen take [...] to other viral communicable diseases Episodic Other complications of (1 source) Obesity complicating , second trimester; Translations: [Obesity complicating , second trimester] Onset: 09-17-2023 Chronic Other complications of (2 sources) Supervision of with other poor reproductive or obstetric history, second trimester; Translations: [Supervision of with other poor reproductive or obstetric history, second trimester] Onset: 09-17-2023 Episodic Other complications of (1 source) Supervision of resulting from assisted reproductive technology, unspecified trimester; Translations: [Supervision of resulting from assisted reproductive technology, unspecified trimester] Onset: 09-17-2023 Episodic Other complications of (1 source) Endocrine, nutritional and metabolic diseases complicating , unspecified trimester; Translations: [Endocrine, nutritional and metabolic diseases complicating , unspecified trimester] Onset: 09-17-2023 Episodic Other complications of (1 source) Supervision of resulting from assisted reproductive technology, second trimester; Translations: [Supervision of resulting from assisted reproductive technology, second trimester] Onset: 09-17-2023 Episodic Other complications of (1 source) Abnormal chromosomal and genetic finding on screening of mother; Translations: [Abnormal chromosomal and genetic finding on screening of mother] Onset: 09-17-2023 Episodic Other gastrointestinal disorders (6 sources) Constipation [...] of) liver, not elsewhere classified] Chronic Other nutritional; endocrine; and metabolic disorders (1 source) Other obesity due to excess calories; Translations: [Other obesity due to excess calories] Onset: 09-17-2023 Chronic Other screening for suspected conditions (not mental disorders or infectious disease) (2 sources) Encounter for other specified screening; Translations: [Encounter for screening for cervical length] Onset: 09-17-2023 Episodic Other upper respiratory infections (2 sources) Acute pharyngitis, unspecified; Translations: [Streptococcal pharyngitis] Episodic Pancreatic disorders (not diabetes) (2 sources) Exocrine pancreatic insufficiency; Translations: [Exocrine pancreatic insufficiency] Onset: 09-17-2023 Episodic Residual codes; unclassified (2 sources) 21 weeks gestation of ; Translations: [21 weeks gestation of ] Onset: 09-17-2023 Episodic Residual codes; unclassified (1 source) Personal history of other specified conditions; Translations: [Personal history of other specified conditions] Onset: 09-17-2023 Episodic Residual codes; unclassified (1 source) Localized edema; Translations: [Localized edema] Onset: 09-17-2023 Episodic Respiratory failure; insufficiency; arrest (adult) (1 source) Respiratory failure; insufficiency; arrest (adult); Translations: [Exocrine pancreatic insufficiency] Onset: 04-10-2023 Substance-related disorders (1 source) Opioid dependence, in remission; Translations: [Opioid dependence, in remission] Onset: 09-17-2023 Chronic Thyroid disorders (2 sources) Hypothyroidism, unspecified; Translations: [Hypothyroidism] Onset: 09-17-2023 Chronic Unclassified (1 source) Diarrhea, unspecified; Translations: [Diarrhea, unspecified] Onset: 03-15-2023 Unclassified (1 source) IVF with Donor Egg Onset: 09-17-2023 Past or Other Problems Problem Classification Problem Date Documented Da te Episodic/Chronic Unclassified (3 sources) Contact with and (suspected) exposure to covid-19 Z20.822 Onset: 02-03-2022 Resolved: 02-03-2022 Viral infection (1 source) COVID-19 NEGATED: Highlighted row has been ruled out!Unclassified (1 source) No known active problems 12-30-2020 Results Test Name Value Interpretation Reference Range Facility PROTEIN CREAT RATIOon 2023 RANDOM URINE PROTEIN 170 mg/L High <120 [facility] Comment on above: Performed By: #### U PCR #### [facility] ([id number]) [address] [place] [address], [address] [place] [address] U/PRO/TAPPER BALANCE WHEEL SCREW HOLE RATIO CALC 0.17 Normal <0.2 [facility] Comment on above: Result Comment: Neph rotic Syndrome is associated with ratios >3.5 Performed By: #### U PCR #### [facility] ([id number]) [address], [address] [place] [address] URINE CREATININE,RDM 98.06 mg/dL Normal [facility] Comment on above: Performed By: #### U PCR #### [facility] ([id number]) [address], [address] [place] [address] COMPLETE BLOOD COUNTon 09-16 Erythrocyte distribution width (RBC) [Ratio] 13.0 % Normal 11.5-15.0 [place] Comment on above: Performed By: #### C BC, CMP, FEPR, 2532-0, 3084-1, TSHR, 2276-4, 2284-8, 2132-01 #### [facility] ([id number]) [address], [address] [place] [address] Hematocrit (Bld) [Volume fraction] 34.6 % Low 35-47 [place] Comment on above: Performed By: #### C BC, CMP, FEPR, 2532-0, 3084-1, TSHR, 2276-4, 2284-8, 2132-01 #### [facility] ([id number]) [address], [address] [place] [address] Hemoglobin (Bld) [Mass/Vol] 11.9 g/dL Normal 11.7-15.5 [place] Comment on above: Performed By: #### C BC, CMP, FEPR, 2532-0, 3084-1, TSHR, 2276-4, 2284-8, 2132-01 #### [facility] ([id number]) [address], [address] [place] [address] MCH (RBC) [Entitic mass] 30.9 pg Normal 27-34 [place] Comment on above: Performed By: #### C BC, CMP, FEPR, 2532-0, 3084-1, TSHR, 2276-4, 2284-8, 2132-9 #### [facility] ([id number]) [address], [address] [place] [address] MCHC (RBC) [Mass/Vol] 34.4 g/dL Normal 32-36 [facility] Comment on above: Performed By: #### C BC, CMP, FEPR, 2532-0, 3084-1, TSHR, 2276-4, 2284-8, 2132-01 #### [facility] ([id number]) [address], [address] [place] [address] MCV (RBC) [Entitic vol] 90 fL Normal 80-100 [place] Comment on above: Performed By: #### C BC, CMP, FEPR, 2532-0, 3084-1, TSHR, 2276-4, 2284-8, 2132-01 #### [facility] ([id number]) [address] [address] [place] [address] Platelet mean volume (Bld) [Entitic vol] 9.4 fL Normal 7-12 [place] Comment on above: Performed By: #### C BC, CMP, FEPR, 2532-0, 3084-1, TSHR, 2276-4, 228-8, 2132-01 #### [facility] ([id number]) [address] [address] [place] [address] Platelets (Bld) [#/Vol] 181 10*3/uL Normal 150-450 [place] Comment on above: Performed By: #### C BC, CMP, FEPR, 2532-0, 3084-1, TSHR, 2276-4, 2284-8, 2132-01 #### [facility] ([id number]) [address], [address] [place] [address] RBC COUNT 3.85 X10E12/L Normal 3.80-5.20 [place] Comment on above: Performed By: #### C BC, CMP, FEPR, 2532-0, 3084-1, TSHR, 2276-4, 2284-8, 2132-01 #### [facility] ([id number]) [address], [address] [place] [address] WBC (Bld) [#/Vol] 11.3 10*3/uL High 4.0-11.0 [facility] Comment on above: Performed By: #### C BC, CMP, FEPR, 2532-0, 3084-1, TSHR, 2276-4, 2284-8, 2132-01 #### [facility] ([id number]) [address], [address] [place] [address] COMPREHENSIVE METABOLIC PANE Charles 09-17-2023 Albumin [Mass/Vol] 3.4 g/dL Normal 3.2-5.3 [facility] Comment on above: Performed By: #### C BC, CMP, FEPR, 2532-0, 3084-1, TSHR, 2276-4, 2284-8, 2132-01 #### [facility] ([id number]) [address], [address] [place] [address] ALP [Catalytic activity/Vol] 71 U/L Normal 39-130 [place] Comment on above: Performed By: #### C BC, CMP, FEPR, 2532-0, 3084-1, TSHR, 2276-4, 2284-8, 2132-01 #### [facility] ([id number]) [address], [address] [place] [address] ALT [Catalytic activity/Vol] 11 U/L Normal 0-31 [place] Comment on above: Performed By: #### C BC, CMP, FEPR, 2532-0, 3084-1, TSHR, 2276-4, 2284-8, 9 #### [facility] ([id number]) [address], [address] [place] [address] Anion gap [Moles/Vol] 11 mmol/L Normal 5-15 [facility] Comment on above: Performed By: #### C BC, CMP, FEPR, 2532-0, 3084-1, TSHR, 2276-4, 2284-8, 2132-01 #### [facility] ([id number]) [address], [address] [place] [address] AST [Catalytic activity/Vol] 13 U/L Normal 0-41 [place] Comment on above: Performed By: #### C BC, CMP, FEPR, 2532-0, 3084-1, TSHR, 2276-4, 2284-8, 2132-01 #### [facility] ([id number]) [address], [address] [place] [address] Bilirubin [Mass/Vol] 0.3 mg/dL Normal 0.3-1.2 [facility] Comment on above: Performed By: #### C BC, CMP, FEPR, 2532-0, 3084-1, TSHR, 2276-4, 2284-8, 2132-01 #### [facility] ([id number]) [address], [address] [place] [address] Calcium [Mass/Vol] 9.0 mg/dL Normal 8.5-10.5 [facility] Comment on above: Performed By: #### C BC, CMP, FEPR, 2532-0, 3084-1, TSHR, 2276-4, 2284-8, 2132-01 #### [facility] ([id number]) [address], [address] [place] [address] Chloride [Moles/Vol] 104 mmol/L Normal 98-109 [facility] Comment on above: Performed By: #### C BC, CMP, FEPR, 2532-0, 3084-1, TSHR, 2276-4, 2284-8, 2132-01 #### [facility] ([id number]) [address], [address] [place] [address] CO2 [Moles/Vol] 24 mmol/L Normal 22-32 [place] Comment on above: Performed By: #### C BC, CMP, FEPR, 2532-0, 3084-1, TSHR, 2276-4, 2284-8, 2132-01 #### [facility] ([id number]) [address], [address] [place] [address] Creatinine [Mass/Vol] 0.46 mg/dL Normal 0.40-1.00 [facility] Comment on above: Result Comment: METH OD TRACEABLE TO IDMS STANDARD Performed By: #### C BC, CMP, FEPR, 2532-0, 3084-1, TSHR, 2276-4, 2284-8, 2132-01 #### [facility] ([id number]) [address], [address] [place] [address] eGFR (CKD-EPI) NON-RACE DEPENDENT >90 Normal >59 [place] Comment on above: Result Comment: Reported eGFR is based on the CKD-EPI 2020 equation that does not use a race coefficient. Performed By: #### C BC, CMP, FEPR, 2532-0, 3084-1, TSHR, 2276-4, 2284-8, 2132-01 #### [facility] ([id number]) [address], [address] [place] [address] Glucose [Mass/Vol] 78 mg/dL Normal 65-99 [facility] Comment on above: Performed By: #### C BC, CMP, FEPR, 2532-0, 3084-1, TSHR, 2276-4, 2284-8, 2132-01 #### [facility] ([id number]) [address], [address] [place] [address] Potassium [Moles/Vol] 4.0 mmol/L Normal 3.5-5.0 [facility] Comment on above: Performed By: #### C BC, CMP, FEPR, 2532-0, 3084-1, TSHR, 2276-4, 2284-8, 9 #### [facility] ([id number]) [address], [address] [place] [address] Protein [Mass/Vol] 6.5 g/dL Normal 6.0-8.0 [facility] Comment on above: Performed By: #### C BC, CMP, FEPR, 2532-0, 3084-1, TSHR, 2276-4, 2284-8, 2132-01 #### [facility] ([id number]) [address] [address] Sodium [Moles/Vol] 139 mmol/L Normal 134-146 [facility] Comment on above: Performed By: #### C BC, CMP, FEPR, 2532-0, 3084-1, TSHR, 2276-4, 2284-8, 2132-01 #### [facility] ([id number]) [address] [address] Urea nitrogen [Mass/Vol] 8 mg/dL Normal 5-23 [place] Comment on above: Performed By: #### C BC, CMP, FEPR, 2532-0, 3084-1, TSHR, 2276-4, 2284-8, 2132-01 #### [facility] ([id number]) [address] [address] [place] [address] FERRITINon 09-17-2023 Ferritin [Mass/Vol] 11 ng/mL Normal 11-307 [facility] Comment on above: Performed By: #### C BC, CMP, FEPR, 2532-0, 3084-1, TSHR, 2276-4, 2284-8, 9 #### [facility] ([id number]) [address] [address] [place] [address] Folate [Mass/Vol]on 09-17-19 24 FOLIC ACID 18.1 ng/mL Normal >5.8 [place] Comment on above: Result Comment: NEW REFERENCE RANGE Performed By: #### C BC, CMP, FEPR, 2532-0, 3084-1, TSHR, 2276-4, 2284-8, 2132-01 #### [facility] ([id number]) [address], [address] [place] [address] IRON PROFILEon 09-17-2023 Iron [Mass/Vol] 52 ug/dL Normal 50-170 [place] Comment on above: Performed By: #### C BC, CMP, FEPR, 2532-0, 3084-1, TSHR, 2276-4, 2284-8, 2132-01 #### [facility] ([id number]) [address], [address] [place] [address] IRON BINDING 580 ug/dL High 250-425 [place] Comment on above: Performed By: #### C BC, CMP, FEPR, 2532-0, 3084-1, TSHR, 2276-4, 2284-8, 2132-01 #### [facility] ([id number]) [address], [address] [place] [address] IRON SATURATION 9 % SATURATION Low 15-50 [facility] Comment on above: Performed By: #### C BC, CMP, FEPR, 2532-0, 3084-1, TSHR, 2276-4, 2284-8, 2132-01 #### [facility] ([id number]) [address], [address] [place] [address] LDH [Catalytic activity/Vol] on 09-17-2023 LDH 124 U/L Normal 100-235 [place] Comment on above: Performed By: #### C BC, CMP, FEPR, 2532-0, 3084-1, TSHR, 2276-4, 2284-8, 2132-01 #### [facility] ([id number]) [address] [facility], [address] [place] [address] Natriuretic peptide B [Mass/ Vol]on 09-17-2023 Natriuretic peptide B (Bld) [Mass/Vol] 66 pg/mL Normal <100.0 [place] Comment on above: Performed By: #### C BC, CMP, FEPR, 2532-0, 3084-1, TSHR, 2276-4, 2284-8, 2132-01 #### [facility] ([id number]) [address] [facility], [address] [place] [address] TSH WITH REFLEXon 09-17-2023 TSH 0.78 uIU/mL Normal 0.49-4.67 [place] Comment on above: Performed By: #### C BC, CMP, FEPR, 2532-0, 3084-1, TSHR, 2276-4, 2284-8, 2132-01 #### [facility] ([id number]) [address] [place] [address], [address] [place] [address] Thiamine (Bld) [Mass/Vol]on 09-17-2023 THIAMIN VITAMIN B1 See Below Normal [facility] Comment on above: Result Comment: NOTE TEST RESULT FLAG UNIT REF.RANGE ------- Vitamin B1 (TDP), Whole Blood 159.6 nmol/L 84.3-213.3 This assay measures the concentration of thiamine diphosphate (TDP), the primary active form of vitamin B1. Approximately 90 percent of vitamin B1 present in whole blood is TDP. Thiamine and thiamine monophosphate, which comprise the remaining 10 percent, are not measured. This test was developed and its performance characteristics determined by [facility] [place] ([facility]). It has not been cleared or approved by the FDA. [facility] is regulated under CLIA as qualified to perform high-complexity testing. This test is used for clinical purposes. It should not be regarded as investigational or for research. Test Performed By: [facility] [address] [place] [address] [employer] Consultant: Colin Cisneros III, M.D. CLIA #[id number] Performed By: #### C BC, CMP, FEPR, 2532-0, 3084-1, TSHR, 2276-4, 2284-8, 9 #### [facility] ([id number]) [address] [place] [address], [address] [place] [address] URIC ACIDon 09-17-2023 Urate [Mass/Vol] 5.1 mg/dL Normal 2.6-7.2 [facility] Comment on above: Performed By: #### C BC, CMP, FEPR, 2532-0, 3084-1, TSHR, 2276-4, 2284-8, 2132-01 #### [facility] ([id number]) [address] [place] [address], [address] [place] [address] VITAMIN B12on 09-17-2023 Cobalamin (Vitamin B12) [Mass/Vol] 185 pg/mL Normal 180-914 [place] Comment on above: Performed By: #### C BC, CMP, FEPR, 2532-0, 3084-1, TSHR, 2276-4, 2284-8, 9 #### [facility] ([id number]) [address] [place] [address], [address] [place] [address] TSHon 05-25-2023 Thyroid Stimulating (3Rd Generation) Hormone/ Tsh 2.[address] [facility] [address] [facility] [address] [address] [address] Scan Report Signed Patient: Laura Alves MR#: [id number] 3 : 1985 Acct:[id number] Age/Sex: 37 / F ADM Date: 04/10/23 Loc: CT Room: Type: REG CLI Attending Dr: Shun Hill MD Copies to: [...] Stan Owens M.D.04/10/2023 4:03 PM Dictation Location: [place] [address] Transcribed By: [facility] 04/10/23 1603 Dictated By: Stan Owens DO 04/10/23 1556 Signed By: 04/10/23 1603 Normal [facility] HCG ( test) IA.rapi d Ql (U)Ordered By: Shun Hill on 03-15-2023 HCG ( test) Ql (U) Negative [facility] HCG,Urineon 03-15-2023 Beta HCG ( test) Ql (U) Negative Normal [facility] Comment on above: Result Comment: PERF ORMED BY: [place] [address] PATHOLOGIST [employer] MARINA AYALA M.D. Performed By: #### U HCG #### [address] [place] 03-15-2023 L Specimen: [id number] Received: 03/15/23 Status: BUSTER Fuentes Num: [id number] Spec Type: Surgical Subm Dr: Shun Hill MD Tissues: A Colon Biopsy (SURVEILLANCE BX) Procedures: HE/2, Gross/Micro L4 Age/ Patient Sex Location Account Attending Physician Laura Alves/F [id number] Shun Hill MD SPEC NUM: [id number] RECD: 03/15/23 STATUS: BUSTER FUENTES NUM: [id number] SUMIT: 03/15/23- SUBM DR: Shun Hill MD ENTERED: 03/15/[address] [facility] [address]: SPEC TYPE: Surgical DEPT: S ORDERED: HE/2, Gross/Micro L4 ORDERED: HE2, Gross/Micro L4 Pathological Diagnosis Surveillance colon biopsies: [...] The microscopic examination confirms the diagnosis. Specimen: [id number] Received: 03/15/23 Status: BUSTER Fuentes Num: [id number] Spec Type: Surgical Subm Dr: Shun Hill MD Tissues: A Colon Biopsy (SURVEILLANCE BX) Procedures: DUY/Yaz, Gross/Micro L4 Patient: Laura Alves [id number] (Continued) Specimen: [id number] Received: 03/15/23 (Continued) Signed (signatur e on file) Winston Donis MD 03/16/23 1737 Specimen: Received: 03/15/23 Status: BUSTER Fuentes Num: [id number] Spec Type: Surgical Subm Dr: Shun Hill MD Tissues: A Colon Biopsy (SURVEILLANCE BX) Procedures: DUY/Yaz, Gross/Micro L4 Patient: Laura Alves [id number] (Continued) Specimen: Received: 03/15/23 (Continued) CPT Codes 00653 Specimen: [id number] Received: 03/15/23 Status: BUSTER Alfredo Num: [id number] Spec Type: Surgical Subm Dr: Shun Hill MD Tissues: A Colon Biopsy (SURVEILLANCE BX) Procedures: DUY/Yaz, Gross/Micro L4 Patient: Laura Alves [id number] (Continued) Signed (signatur e on file) Winston Donis MD 03/16/23 8193 [facility] SARS-CoV-2 (COVID-19) RNA NA A+probe Ql (Resp)on 01-16-2023 SARS-CoV-2 (COVID-19) RNA GEORGE+probe Ql (Unsp spec) Positive [facility] Other HIV 1&2 AB/AG Screen (P24 AG )on 12-13-2022 HIV 1&2 AB/AG Non-Reactive [facility] Hepatitis B surface antigeno n 12-13-2022 Hepatitis B Surface Antigen Negative [facility] No Panel InformationOrdered By: Rae Agudelo on 12-13-2022 [facility] Rubella IGG immune statuson 12-13-2022 Rubella immune IgG <0.90 NON IMMUNE [facility] Syphilis Total(Unknown Syphi lis Status)Ordered By: Rae Agudelo on 12-13-2022 Syphilis Non-Reactive [facility] COVID Quick Testingon 2022 Result Negative [facility] Other COVID Quick Testingon 2022 Result Negative [facility] Other COVID Quick Testingon 2022 Result Negative [facility] Other COVID Quick Testingon 2021 Result Negative [facility] Other Consent for Treatmenton 05-21 Consent for Treatment [id number] 0 [id number] 318#1.00CD:127 [facility] Coding Summary.on 05-28-2021 Coding Summary. CD:[id number] OJx6lVl+PGhlYWQ+PE1 IGEMlV83qoQKscT4VC9 oELX6GHZTFKOTZUW8FQ T8etSZ9RIcjC4CcwcHg XxpcuULkYD50GSi4CUT 8dRtfCYjrxN0feUTyD4 a1VuStEJ33wZ16EVssK GFxLyQ9YiSbxyxoaIRh R2lvSwTetHPjBnl+PHR hYmxlIHdpZHRoPScxMD NrQeXhoIlxFZ7mZh0mZ GVyLWNvbGxhcHNlOiBj j8ziTIOfBTrbEO0euZa bO1FqkBY3VIKgp8q8Ip 48dHI+EHZwGJB7aQxfJ Vfyt460EgUdf9uuEKN5 gYHxKJdbEHR4X66wk7N 0WEDjDDQbEVN4nJM5oV 3epWghormtX6VzmPYsB cY4TMB5aHGjaB9ikHac smchtC0hGek+V86MDB4 FWVCJQX0DYuj1D2CgFn wvdHI+GA62XHSgRU86s EWvaCBhp4covIf7ImVk QMXqXVH0wOdjUPxct5S aWGCjG01gaBBsp9D7JP NkpJtfoDMbPjFbmTM5n O3bPUhcrsnqd6ikixvr Jblmb8fshy47sG77U10 uUNujXELmCEY5MTIoGM WxsRbbiw7meB9tQj2+I Figm5iki1tcgZj0OkFc XBXgbcZvpRuiTEG0i3U ySi58E0RurQnyw3KdUb t9wg44kZJxm7N5nKO0K OlbWNEqoY9rQEevNpW6 MCCnZeBbmF34eUUzJLp gCx1rtDjlcRexIX2cCY MxvfazCBIpnJ6tCFGoi ORijErzBL9tKENyyxju x865ItIkOIQ3NUZtfGB nQ5BsoW3oGzWkFZNgKU SaJ2BgjRWtZTafG065R YdsRaR9VMLwkqTyQ5Zv UNObbCcvOmN6g1D5Xd0 Vb7JbqhwfBLG2QDkkKI LtKuC6PvPcVbG5T2AxO hm3ILAanZhbMI5rF2Rx JLUvlntdvwqyeHP4GBL nLHZtxU23wKAjXUtyBx 9mx1U8v852QNIeCBWvo U84Uq1xrQbkOMJqiBJM cQ0sqoqiv6hwwlljAmG xRHRtOYi1MLq8HECokJ wbWsMuIDZ1FfD9SJZ8n VUezB0jvGsamxrsrK5u Oyc+Q32sjL2iGPC4IGP 3vsauDGAuyhVmFE36RR 89O9LmXzzbrFDblOF+P LRdbdUqjDslJG4yWfRm k7fxc3PiLEbzK1UbQNM uVQchNjc1VVKrWMU1eL B0hR9sRNOcYNlfo0Z8z NF1R3BweqMbfl1am3mm HXXnSIqiT47dtWIet7O 6SBSbwMZ1IBOpdHxdZj BcpU58Oxy+PGNvbGdyb 1GjPhisl0ssf3lcvIt5 IjMwJSIgdmFsaWduPSJ 5w1DkDx25C85dXIzzXS RoPSIxNSUiIHZhbGlnb v1mkF5hTx2+PGNvbCB3 iXO4vS5sUWPkWqA9DNo uK058TbXekRXzKqiix8 tlu0mheEe9BvZkSIYmb zYdsOanMPD7h9DeXw84 B54wSLmjLEHlSANvXWB vQUNkiSpcuj5rfO3lJx 8+QI3qw0lkxz36pN78d HI+UAKnPIU8wHqcZTgj DTTsaV4xUQcaNcA9YTW wCqIhmV00mMGwZBfpWf 4zrFuerIvcYR0oIYNmd oqzo569VpNyg1jaFCLa vYKuKPxcBLK8Q04ye2I 5HBFtIWGhSFX2fCD9bH 1hbGlnbjogbGVmdDsgd xLkrTsfFHiaXHgdJ731 IHRvcDsnPlBhdGllbnQ xZoCuXEx4Z0LwOub2OW SgrAsdEJ5yzIItXIdpP c0fpVtthTskTD8wUFBo vicam728EdVxb2ahOKF pqXTiJGfwWNP8R04dy5 F7VQNbJWRuTRL7cKG5m D5iiAbvbzbskARgqChw uxTqbXlqEGjuCSzzX23 6IHRvcDsnPkJpcnRoIE VlsZK1WA67PI80jQHhc 6I2yWQ6W2LwUJQcgxck gcqajES6LNYlOZXmhT2 9Fh7siMyoYo3sCLWhWL W7GWShbHHkX0GazH1fQ sJhJFChEDIwE3PxoROy MXikF151VSbqNgN0OMH kupSyS1OoRCFcmJifHc D8i6D4Oo2OT1D9GV37J U63hCMzr8K1sFY7E1Vn VNCdynhzhpcflZS7ZZX lJNKhjH53Oj8hfHwiMi 4kKKEmHBW3HMGwzSRkZ 1EztO5kSzRiLNOgABNm L7TizUEbNAceO588HQd oUfG4CXCmtwKnL0KrNB PweJsgCmX7s8Z9Jb4YU Yo2WD94XC16pOLst8Z9 pPZ4S1IwMXPgucwnmyx ryOL2WRYlOLDkqG39Ic 7efIypIv3wNNBgLFW8I ULojCHpU1ApxH9rVzSl FYTfQMIvS4QvuZXrNDx sF504YXuoGkF5ZKJehf StP6GsLVIbfFeiBjE0d 6S6To1AUYXaOX86ATS5 lYF7ZB40YH54V6AoPbl vdGFibGU+PHRhYmxlIH dpZHRoPScxMDAlJyBzd SgyPQ5hIz3bEIMuOBGk lEsfzLMqZpFdi5neDAB zZYmxPG0fpYksF1QzfU I0ENQzl9g8Ob79M39cI 3JvdXA+VZCodAD4jKS9 tP0jTkRlKbV4KOpkW80 3NfJctUXeWeajq3wgj3 ykfXo7YcG7DEZqplOfs BgqVXC6m3MmKd78I11f IHdpZHRoPSIxNSUiIHZ zcKccoj1ehR9fSm1+PG BihXU1oWF2hM8pImFhI mO1EDbxC565YcXqsEGz Ptiwl8wlh4cqaFw2KkX kSJPmsvWwpScvUPI8m0 ZyAx48U4ZgpHqeq6HrQ ie8zi35zCZja4W1aVF3 U6NxFOFbqgvnwWHeuKd pIJ0qNABenoabFIJrdT 1bCBXmE0s4WyPgJpC0S AcbQ4ElccG0OTWjuGEp AVxzJUM5F32uy3X5KMW fHVEkRCT2dHT4yX3woQ lnbjogbGVmdDsgdmVyd AguIAakHMjfB645XQJm cIexGHVnxR5iJQQesEF adMqpWQ4dITYukvgwTy lIRN9SDDIJGtxeIAiHQ EAGSTQEMM64JI97kBYw i8X4uBP5K5OyWOQgvqp waccocVY3RJTlJDPayP 32tGScHPhsUc1pr9K4k 226ZASkCUZzpG19Zc1t eOlwBSCycDTCbW9ccdm zx7ojsdgbUwJrMZKnLO w0DRx0RCDgcHwsYfTgR BS1OrG7IZH9aRDrkW7w qXjwdvmxqJ1qTvx+MTI bGSgyKNu6HDtkhUS+PH AlEXI4wMjtVOivCHJwx A6tDHOoY4v5CkRtYuW4 POirV4QbUVAioulkOo1 9xZ3sQnOaZwG3VPvzO4 ZbkxG1TSKftWRaIFagX AS2Y34ui5B1IDQjLZZh OER2bPZ0hK4ntCfmteq gbGVmdDsgdmVydGljYW leQZwdG635UJLjbMwpG fO3JSbpVOHcDP63HG64 iTPuz7G9tHR1J4MuGGH boyabwbawuPL7CZDmLS OexX90bOXnXFhmVo6oe 9S4g851OUKxSROmjK66 Fw7xrPbtWFMxzPDKsA0 rbfcqk6drbkmaScCzNA BeLFz0NKc1NGAdeXciN mOrBQV5OaK8UQO8xLFm dE2bfNwersgfcK2hTgh +AhUoOWreHD89VQ87dE Pur7F2gHA3G8DdANGkt lmueuhisDM1DCFyVUYd uZ43aJBrFVynZe3gj3K 0c200ZSKzEDMofV26Rh 9zkMvnTTQdeVWEqW8wn pldc9otsbiqFlOpVTUq ZBj1CCq5IFZayAoiLzM tETM3FwV1NZH2pAXctH 6jpXlbbrtwrB5nPod+U yVsfQUxsY0oBB98QU84 G1LjWcmimSMbfKW+PHR hYmxlIHdpZHRoPScxMD ZrLqZwnNzePC7lIh1fE GVyLWNvbGxhcHNlOiBj f0ueRGEjMNhgHN7btVd xV9ZxvWY7VBIev4y3Ob 27V51bJ5UcdXT+PGNvb UC7eTW6tT5rZpRsBgB1 GFtfQ272RgBlnQNvWem qi7pge0lvzIs3MzOvOM RcfkHxyNpeEKT9d1AzH u98O57fMQtoOCZdIVTt JFByTTPkgHwvnt3hwT3 wIi8+ZBBivDX3pZW6sF 1vSiSsOnT2RHtpU554O rZepWFhWhekD09jK4Bp dXA+AGEtLsc6YJYdaQg sUT0udUVaAKchFw3nHU D2UaKyNpLuVHqwV8RyI TPggvjxujaqgZF9VFWy UNXxtC26Kf4xaFrmCb8 dSWFzXDI8AVZlfCZjJ6 YvyW9uPgLsDQHxINUsU 2GkeTIdGThxC902WHxw YuS8SOMcexVyU9FmWUS deJpoBeD9e1Y4Ay7WrV nupOXoRN3nOhKhXKt7T 3OyDui3DWOyzLmgZP8v hJYwCPjnQc7bnDrakGd qIU5kTGGwmfbfj701Je Ksu7goGMYgaLMgVHqwN SZ3Q82ty6G1YNHhHOMj LWK7lXL8zF6hbPxgdvo gbGVmdDsgdmVydGljYW mhAYxiA835QHLwoSkgD bPSCfs3A9WoPip3WRAi vAqvIJ9ltABeJAjcTb7 vqNrcpNgyCG2hQEDzrk onr966OpMir6ssYTJed ZQjLBreKMR4E01vw3N9 NUFeOAOaHVN4oBH2mE4 hbGlnbjogbGVmdDsgdm ByyJthHFlbDUawZ800Y SViqOnkPz6GJym1I6Ya Hvb5BPCafCawBQ7eyQY vIMfyGl8ddXdktCjkXE 4iQYRhnpfax701EjFkv 0knUCTheNMvHHdfBNN1 D33yg6A1IMMcPMEfRSL 8uTU3mI6ctQgzmrmloU VmdDsgdmVydGljYWwtY EmeP616NCCmoMhpCwJk eWVyOjwvdGQ+SC61cp8 6Z0QqKjayTdf9MVFuLG X2sFM2xG8nFMBhISwxc 0H7dRX3V1YqtlRlkp8e b2xs (more content not included)... Normal [facility] Priority Order-Juan 2021 Priority Order-STAT Comment Invalid Interpretation Code [facility] Comment on above: Result Comment: Rece ived Performed at: [facility] [address] [facility] [place], [place] [id number] LTAC, located within [facility] Mina Jones Performed By: #### S ARS-CoV-2, GEORGE, [id number] #### [facility] [address] [place] [address] SARS-CoV-2, NAAon 05-25-2021 SARS-CoV-2 (COVID-19) RNA GEORGE+probe Ql (Resp) Not detected Invalid Interpretation Code Not Detected [facility] Comment on above: Result Comment: This nucleic acid amplification test was developed and its performance characteristics determined by [employer]. Nucleic acid amplification tests include RT-PCR and [...] detected) result in this assay. Performed at: [address] [id number] PhD Shalom Gonzalez Performed By: #### S ARS-CoV-2, GEORGE, [id number] #### [facility] [address] [place] [address] Family Medicine Phone Visit - Telehealthon 05-22-2021 [...] 6 months ago. Has been using DayQuil [id number] with moderate improvement. Review of Systems Fatigue: [...] only communication with the patient located at [address] [place] [phone], with no one else. If it is [...] [place]) Telephone Est 5 to 10 minutes 22755 2. Fatigue (R53.83: Other fatigue) see above plan, rule out covid. Ordered: Rapid COVID Antigen ([facility]) Telephone Est 5 to 10 minutes 27914 3. BMI 27.0-27.9,adult (Z68.27: Body mass index [...] 1035F Telephone Est 5 to 10 minutes 06802 Follow-up With When Contact Information Irma Burt [...] Pre (more content not included)... Normal [facility] Comment on above: Result Comment: Elec troalberally Signed By: Eleanor SKELTON CNP\.monique\Date and [...] height. This can be done either in [place] ([place] or metric measurements. Note that charts are available to help you find your BMI quickly and easily without having to do these calculations yourself. To calculate your BMI in [place] ([place] measurements, your health care provider will: [...] problems. ? BMI can be measured using Ukrainian measurements or metric measurements. ? To interpret [...] 01/16/2005 Document Revised: 04/19/2018 Document Reviewed: 03/20/2018 [employer] Patient Education ? 2019 [employer] [facility] Physician Orderon 04-27-2021 Physician Order [id number]:127 [facility] Coding Summary.on 11-04-2020 Coding Summary. CD:[id number] RPk7kBx+PGhlYWQ+PE1 FPPMxC44xjNTvqT5HD8 nAXH6FRUOERXGGUN4FZ F6gvHD6VCjaD8AngvDd VlrczNNwIE75LKo1XQT 7zSscLCzzoT7oaDMuA4 i8IiLiHT34kL97TKuiC YTdAbX9IxOmcwjlfIQs M4zrXdWstUHvJpd+PHR hYmxlIHdpZHRoPScxMD FuVcRwvGhsLZ1wAe3wT GVyLWNvbGxhcHNlOiBj d2yfXKZqVZohMB2wpFp qO0ZzwKN0FFBmt5v5La 48dHI+RHOqDBR7mHymB Osmi480YtVet0xjKUA5 uSAvJQakHUD0P36co4V 0CRKqGDNrOCM7uQY4jE 8yfCyhqfphJ0MzpCYlR uI3WLQ3aNTxfR6bkKfx njxahU6aNed+V75UZV7 PLKYGNX2SWei6O7KiEf wvdHI+NE68HGHrBR89v YXdlSNpb1zabGt3YqMz DJEaQEZ5dMqjBBttz8Z xGACvK13izQUby9M6HQ YzfSnqxDGlKaZbiAL1w F0cMPdbhygah8vxsfqf Rmoqu9wvdd28aR86F44 zOVraOAZuOSR7NUMwIW JceHdkpw2luI5fYk1+I Sndy0xcn8pulVr8ZcRw LZWntcIvgFybQEG8m7N wPn92H4QjjElsq8GuNe q9fh51uKCru3T7cEP9U PgnCFWqrC8jWOhlOiG6 JATkBpOstO18gZOyJWr hDq2tzXbfrGfmPM1dPL KhqwbnXCDatD0hKPCds LAhzRwlQN3wKRGukmzi r897JgGcIPO7ZMGluGV wZ3AvuI7tTeKjBFYsBX FtU2QfqACoOPmqS895F DvxKhA8WOJzscBgI6Mt NLQpoCutKrX2f4L5Ym3 Hc7OqfoeoBPC0AHwgGT I2TxK3FcQwTzD1I3KnJ cv8CKAbdVtwTH9eV8Bk CYLqvgssxcslrLH1ATC hOXJjgD47yCMzMTsrVr 7xt7U7s551CZUyBDWen D82Ar0rqYznRMSxvTLS iW7vssjtw0mbymksOuQ bUQDhSAd0VJy3UVWliU yeYkQzSGT5NeB2IJA9t EIhhZ7fjIvtbyxpuO3n Oyc+I83aoC4lFSW5ESF 9vhyeEMQqlpTcJB69DN 72X0DjVbxfgONuzXQ+P ZSznsQqoVlhJP5qDpVw p6dmq7BhLAkuZ4GuRAM eRGukAku4TWJoSXV6lI Y1eI2nKYLkYYwdp8N5h JY3S0GfwpRyvz1zv5pr ACMbQVawW41jlLOgx8P 7GWFbaEX7TWNxeAzwCl JvgU85Ltf+PGNvbGdyb 1QxVvkmw2fsn1bkzTm5 IjMwJSIgdmFsaWduPSJ 1u4GoQm54W76bKQynFK RoPSIxNSUiIHZhbGlnb r9yjY9bMr0+PGNvbCB3 kEG6fW1hYIJrDqY7GJo bK083IbLuxSHmGvzrj5 fae4gvnBu4EfXlZDYcd wQwnGuwKSR6r1MdIz90 V14hNIorISFqWHByLAJ uJLQvaNsomg8yaE1rZo 8+LX7qc6jytu09yF04p HI+PPJkGID9fMdoMTtm XFAdcV5oCHvnZfG7ZDA zWgYuxK22nVMwXWklFs 3gnQaqqLxcFD0uNQZdr ibrp725HeGud6noKRWn uFJrGLkzINB5S28qa0F 3RZSkGQFpVJH7tSJ2bJ 1hbGlnbjogbGVmdDsgd sVpdGusCJasBOwuL923 IHRvcDsnPlBhdGllbnQ pKsFtQUx6W8LnJjr5GM YwmFtkRL3duBBsDTitR h2iyRghrVxjHC7fTXPi osvnz913AcCts4ivGSH jlJKiUTxcEFF9M88jf1 Z3HVAnMIWfXKE0qGS4v M3oqGznhcdhjVRpyOyp bsKzsVbfDUqrIEwgT40 6IHRvcDsnPkJpcnRoIE QxlBZ3BC13HD26wVQtx 8G4tUV4S6JoISMaruco gzhnzRD3CISpYJPndI3 5Sa3vkIswKv6iHVNfZB O6GDLefBYqY4QchW4aQ dHyEFXgGLKbO4BxmBXa HKykF485KBgoWdE0BMY woqCnA4JyEKCzkLzfQw E7r5E2Vb6VG0I4FR66F A46tNEmv5X9pOT2A3Yx NBAajfymuimzfHK1ERW gMJZkuI80Cj2aqFnuFs 6wZBUzJVO1PVYwnGVjR 5FcrD8mTmFmARVnAKXl V8MlaQUdHZxiW586AZk cDtX6QHCbbxEtP0GuGB CxfPtfVtH5w1M6Nc4ZL Vp1YH72WA56kLLik2N5 yTE1I3TiQUPgziuuqer gqIY4WYQxTYXzyA23Vs 7wiRvcTn4fCNFtLQM7F NFijVDuX4WgnP8uOjWi ESJyOROjB9OjcBPfPXy aC173JVgcMvP3JMUzlp JtF0RwOYAtkCwwXvO5b 9G0Ym9SWQDdPG09EYP8 rQL1PF28AU68I7HcIbw vdGFibGU+PHRhYmxlIH dpZHRoPScxMDAlJyBzd RtcGS9fQg5eBSRlSAOn xEjcwYRbHgOxk7yhVVD dPUaaJZ7wbHuvT5AzlK E8JQQfy4m7Rd62B34lC 3JvdXA+EMLahAI7zNO4 tO3cUnZgMxW6LAybN82 8XiTfzWGeFkqqh0zcm8 edsNb9TcE3NLHyhjFao DbeKOD5o1UcUg62I39d IHdpZHRoPSIxNSUiIHZ jaPkemu2kwQ7mPj7+PG XcgGK7iDH7hY1zCbVdA sZ8GJbqD045NzGltWIx Ilwnk2qvt6qhrIa6UbM sBNGkipRvuLhwHTR0f0 OkEw88Z6LdpSoih4JfE fn5hn61tKKxl4N0nFJ5 R6RqVRDbsydfvLJvwEx jBM1sRFOgmjrxKADdrF 1gNSNtW3i0TbAzNzH5U NfsL6GjoeJ9BGKnyWPy GAwnHKA2Z75pf6Z7YVK uKRKbCJY9bPC0dY1qvO lnbjogbGVmdDsgdmVyd PctVNfbEIjiB974IZFn eEfpAAVfhU4oEOXmjEO ujAnbGC3mRWIizgqxLt tXIH5EDRKDOhkwPDcDK ICTRODLZX10TO01bNJo w3Q1mWN2E2PvODRsdkz strwcjQN8XWTuEIZmnX 80rZMpBKivAv2ia7C3x 083QOZlXHJxdA87Bc8n zJyvGBHmeYYXtU2eiym hy1sfjcomBoTnYUSjOT o0YGm1LUDwtXauCkCvE YP2ZoN8TWG9fXMevQ7c mPldghlejA5fHsz+MTI uZUhnYFj7VQqhfCB+PH HpYIB3qXfgXItyWXLxi Q1pOTEcR3e9PeDgQnJ1 TOnuE9QtMRHjpqppSn5 4uJ3zZqQmErN3SHttE1 BsgoJ0BZHtpEXmIQojE JI0W70xt9L7VCUcOGFs YNA8mEE6rR6gxUtsosa gbGVmdDsgdmVydGljYW ysHSpxP592HXGbnVckI kS7YCiuENEePB30HU26 qTKwa2F5yIM2N9KoGOH ngpuvzhhlqIR9CQEuOE IobF48cLZwRPgjNf9wc 7N3c733WIBiYCNzlI09 Pt2cjFapYFDujVVXmF5 jnbsic1pjftemMnOeZK NvPJi3IRe8RMPvhNjsX nCxZCP8WxP1JIH4eSZu eP1kaYfrwqiwnM7aLmy +UzKkMEpwAY05DI26sI Qtn6L8tQC3F3FhZUYtz txfpawqlAP7ZVHeGUFm rQ54pWSeLYuxQy4km2X 8i090XELnKJJydF79Aa 6ffIewRDEtpBJLuZ8dq urpb2fmuvriDyUeGCPu KFd6VCk7BILijWrdWmY lOAD3BaG4VGH7eBUuhT 6mhNtfytqahB4gYmo+T 2N9hRJ3iWDjuUhdvAB+ TQ94is01M0YmDjdjKft 9NZHjPQV0yOD4qI8yFA LaRIwbh7F7rVG8F8Irb sNpvk6eo2lkRZLkCDzo V36doIBdw7A6YLFbdKO 5JIDnoGsgCwZdzO86Sr c+DBVfpRzam6TyYptuu 8dlz5bejIe5LuRhHNJt irKbbTywBAY3f6QtWh9 4F20tBSlaCEFhKEQkVZ HiQMFzbOjmpc2byR4kW i8+UOYdpHQ3zDT5kH3c LtYeEyC3CUhxJ525EpZ eiOBxOysdn1dix5tqsO l3WsKeYSJuhkOfmTsdI UW9b3FeCs05H5RqvFws k0ElUhf5fb88xUWkv2T 2mWB8P7EyCSCuaqixoZ DpnJtzJR9dFPFscdxyF HBteX1dDZRwB2t8FmKo FtA0WQttO9BrbbH4VAL llJFxAOImrRFQlZ5cmj afz9ygsiomJxBkXNQtH Lu1XXo4PPXxpPgfJoIh KEE0EoZ7ATE5vLYdqW8 qtMuldqhpgP9bQlt+UG x5m3giqFNcCA8ilMD8E Z17OM26yFFrt9E4fLC8 S3SsHAEpmjyxuylygSI 5YKPvONHxnW85Pm9gpO jyGg8eEJNoVYC3BNMrl HRnV6WtpB9fKzEbLOVw KMBxA7LhlWZhHMtoS53 0WOngMoN6UFKnipQxO5 QvWVKbiPjnOgE2y9M9N p2OGC09KH13KY24pPMf t2L1mOR8X7ZvFJHaupg niteuaZJ1PLArBUVzsO 65Jv0bmRtnAr5vYWTjP FQ5KPVroPIdB2JtuU5v YbIgKWVjZAOdR6JdfLF dHUgyS387YIeqArW0AG RfdsUlN0QfSOLxdPcvP oY9l9F4Pv6YHp78RA57 RV71lUMjn8X0sYP0N5D fNLPljtdzfqgvrXG9YX MmIPKneX84Kr6glPbbD e1eJGGyPVY4WVNflKCj C4EhmM9zQyOeWSOvOGQ kK2DupHXhZIxgS057VS cdYxO1LRRcoqNyL8DmQ NZfjEnmUjQ4m7K4Aj7T RNyejxh5E5LhPqggvHV +AP62UEXzAL34rNAjgZ Rrj0tuoPy5KkFlORHpA IU6zUloGQlfg6GsZGNm Y29s (more content not included)... Normal [facility] CT Chest w/ Contraston 10-29 CT [...] 300 Contrast amount in ml's: 100 Normal [facility] Coding Summary.on 10-28-2020 Coding Summary. CD:[id number] BPp7nTu+PGhlYWQ+PE1 RZTSiH58ueHRwiZ9MW4 mPOD9JHTISJHPEXA5QU T8wyFH7TNokM0RmekUo TixqjPZbSI72EXx6SEW 4wAjgFJricE9cpVRkJ5 i3PqPiCB30xB54DTwsY MLgBbK1PoQtgtsprUZk F4fuDiIysAOrVwl+PHR hYmxlIHdpZHRoPScxMD VmWvNugJcrTI4hJc9lJ GVyLWNvbGxhcHNlOiBj t3tlCRLcXSdwRH2vdMq kR6OwxAP5FYCuw2g8Ow 48dHI+KBXuTVB1mKrcZ Ujnx643EgYfv6auYEA9 iAVcKKvpWCD4S31ff7U 3HSKnCJKwUUJ3uTM0tX 4iqJasvfwgX1OcxSClL jE4GRQ1sWNerT4ikBjy bmcylW3oPmb+F80ERI0 NQRWUXT0EXfn5U0MbKe wvdHI+DV58MDNoOO26w RRjiWSdw7dulJp8DzXi ZDLbECK0qLqbGFgbl3I bJKUlJ62dpZMig1R2IQ CkhUtooMBxFbGwyII1s C2mPQuuiuoiu8kbwqjp Szpvx6sdip99dA10F69 bXKqrGZSfSBL2XSNvAE JedKkmem1kgT4uBe7+I Phdm0qvz8yvaXh7AlAm LVEegyKwbWbrHBI0y3F eHk92E3BeiLiyq9VeNy d1vt52iQUis5D2yYR3W OygOXRpyV5rQUlqRbR2 MQVhEhQbsP39eKTpAOx eQk2iwJbbwLeqPI4qBJ JpdwetSINcdJ1uVBHjk YGpxOerQZ1pBVShqdpo j292AvSaNMZ0YXYgbBO vE1IwlC3fFpHaIIYwDA VxA3VztVEeFXuvQ462N RnlYlY7BHYsfxRaR3Oi YNJvbNoqUkR4n4Q6Ut6 Nu7MlisilZMO2JNgeCS T2IwPrZoUcUcW1F2XgG zy5QLHmjNggWS0tW7By LIEzuoeijdjngIM9YEP jAYWrkU78dSNzVKpbGy 6sg3P7i294DXUgGAQwi L25Jm5iuMylBBOmyZTI yX5kxnjme0zerriaSaV gSCHnJDj9HZk3UXGkdJ zzXvMyXGL5VdM3RQH8n DJbtU1znBxbsesmkN7b Oyc+G23jfR4jNHQ6ANE 3qjgfMFLmjyDrOO23WW 15V2QlAlbhwQUslAP+P SWmsuGuvTokAL2gDkJy b9euk4VzCOgwA0JyYZK pKVdrZvi5HBNeQTH9vO Z6nF5tTRGvUUapn5R2z YR8M6JbhxAbyu1cd5ii AFMqTRkyE87isPXrq0D 8VSRanIL3YKLjbOsjCc MpkT37Iro+PGNvbGdyb 6MgFaqtv3vco7zgkVv6 IjMwJSIgdmFsaWduPSJ 8x9FqGe35S94hBXscDC RoPSIxNSUiIHZhbGlnb z5euH4hRo2+PGNvbCB3 sOT2uJ5tSKPxJdU7LWa kZ587SfUtcZGtPfpkq6 uub7gypEb9RfPaHOQoi aZjwJaeMRB8u0OlYn30 C14bWZdlDYOnMSOkKQG lWNUmmAdmtm2wdC5uJn 8+SN3vz6wrqq67cS94d HI+HMSyJQU2fWzjSFqt IRLqsP9dQDjeVwH2LNC zNdWwdN64qYJiBLtfUq 3boKouvBgqNG2bRCDig cltq302MjVgm5noSZWb jMWhYAugOZX2R67pz9Q 1QOVxXEVnXOH7oTP7gX 1hbGlnbjogbGVmdDsgd sCkgPygTXehRHvdT119 IHRvcDsnPlBhdGllbnQ oLmDtLZi2G4EsQcf4XQ AfnLdrLJ1skWLmNMliL t5igZfxjCcfGD2oKSUw gismd064HiOig8ojTUC fyAVvYNgwLVX3P13pd1 A4QISySWChVCM1aZF8u Q5nxTnwdfdzlXEyiStn jtYviEmlTQuzXDrnU92 6IHRvcDsnPkJpcnRoIE QyzCS9KQ85IA19vBGsu 1B2iMG0U8FpZMUxipgq jxrvuPK9HJApEQYxrH2 7Rc6fsVfkEo0lQJVqNX X6NLSajEGkO4LtxQ7vH iIzVMGqPDAaD7KndNJv DYzqT710JMhmEkD3MSL hbwXlP9BgLELmsQmoHy G9q7K8Iv7PP9F1HT83I V81lRAxm9J3hDR2V6Jb IAQrqggwwpsxwIN2XZQ mVBCvmL10Dg0orKlcYt 2zIPTdFOB1SOFvdMDuQ 8PvkG8kWwCaNYMpYHZo G2LqyENmHMrdQ307PEe mAeK5RSBljjZnZ8EoWN DyjCzcKxD9n5U6Th9NU Al9DX56KK79xCSeu2J0 tCT0Y3PjMXVkxcuedni siCN3DRGbXRVttJ26Cv 9qwMjoCr6aIVHwEKD0B CSecEMvS5OqeW7yEmUo BAGiCXGeN4IzdBHyMBe cC073KWvcOfP9KVOjql DjB0KuWFOzpAwjWpF0b 3B6Vz3HWRRkAM27WTG5 dZP8PT78AE09N5PtQoa vdGFibGU+PHRhYmxlIH dpZHRoPScxMDAlJyBzd IonOY2aSf8aSQXfYJFe oSuqrSMqBbKih4etUKD gVPqxXI8hiBtgO4ReyC Y4EYFdi8f2Pj84T51vS 3JvdXA+TSWwiBO5lDO1 hC8vAsAmWzM1XBfwN73 4JrGajEToJfrjx0emj5 jsjIb1YqG4XJHbuxRdt VidYGX5r6LoYc35M73w IHdpZHRoPSIxNSUiIHZ lwUmeoq4ouO2yLq6+PG BfxON5gKS3mB8fRfUnK nF5ATcqE543NkZytKOk Lxeqh5wdx5ezkMy5WjL gXTDbyxDneCbeUKA7s4 WoXp06H8NlrMovc6LlQ qf9os48mVEzk0T3aCE6 H6LkVJYnoinmbJSilWv bQS8xQTLcyyvkOHKiuK 5cHULrP1y0DtFhIeZ1U FkzA1XpyiL2HYEmoPBw VWifIGE6V26kg8K0CUI eTDWrTWT6mVI9pQ2aeU lnbjogbGVmdDsgdmVyd QtqHVimOUfjT982VELk wVmlOIHdcR0yBFXueSH iwBafUG4iGWUbvsneUm jGSS9AVELSLxkfVZlAA BOSYMRJBR88HW79qBXm m1J5fQU5H7SaWHQgqxx grjkvvTT2JVSsGIZdrM 41pCEzHXuuGs8iv7V1v 236FVHdLIAwtG67Ou2y vKwfFTZabXYFhT3romy tu5nashjiHhAjWLGiHP t5GOn9FYVfsBpfRgLqH PF2XvT6NZG6hQGtiP2e wJfjtoqaqA8mUji+MTI pPCgnRLi6TBfaoDD+PH IrSQX2jVpbBCtlEURtv X3oUSTfU5j6SaBoUnL9 PIvqP0NdRPTpcprgFx7 0rY6yUkGcLaZ9XYhbV2 GofsA4RCLlgLRiPAscU VW5G21lp5B3KYIxHQOk HUJ1xAF2tG1jtXyggzq gbGVmdDsgdmVydGljYW vxSLltF375YMHepOdxK cE0WEubNCUyBS42WI35 kGHdx8U1pAF5J3CeYDW rikxhetcjnZF7BJDbQN HujR92fXTiXQiwMj5yz 9G5n940YAOhNUMbqU19 Wc1tiIbgETWulMRWpD4 eabman8aunvoeLlAcEL EjYPk1PVg9FCPxcJviI dNvBTS2RyZ7YQS6oBYj fC5lxQmlvvdmkU9uNyw +IqWqTHihVZ59NB45xW Kfw7U6tYD1Y9YqVSRso djpgipmtXZ6ULBdBLDw zU32jCTkEYdxTf4ct1B 8f320UVHwKXKgyW52Wc 2onIleSIEcbKDUdM5sk rhbu0tgmnjnQoYxRDGl CHh0IDl0MKWpaMoaUxL gKFZ4NfP8MOR6xNSqgA 6hbBzahfdghS7cIur+T 4A3bNI3zUPmfBaqoMH+ RI74xd28I1KmYvxhDud 0YDRqUKV3wFR0wQ9bGH NfAHlad0E2wYT2D4Knr mHdvk7mr3zpOMYmJRhu S47rrDCkc0M3ALXkkGX 7FNMafYmqSsWwqJ74Bl c+OVXzsTyvv1FcCpqvp 0ruc9obpPa8IfAeNNDr voNezZqkKRV9b2AyJi8 2U51qABhyDGDnWDNvEM TdVWYzjRinrg7oyX1nB i8+IFFxnUF1tEA9lY4z TxRwBtU3RRsmY241DbV ykBEwHoadg4jfj3lbjC t5EaWwMVJcfuLaqBeoO LQ6m7UbIb86B3OokYgb l0LyYzv3ni84yCFxo6Y 1pST7T3IsBXNpmdrfaO QvhNdxIW1vNLQmrysvA NYbeF6jXJKfV5q1KnVy MmF2TWaoX0TugiO3OTY olKSjPKMpmWXBzC8nhw bbr3avgkqjCeNqPHJzG Qv0TYt9RIMxlLfkEcVs HEL8MtS0CEO4bFQqaK4 viAjhiqbsfI7rSxb+UG m8l6ocqVNuPE1ujZC7G D46ZW18nRWax3E4cCJ8 J3XyKGBidcyxxfosqDN 5SMOzICZhgP85Sw6owT epOr8zFTUkFWF5VEWoa QUwH7SwlB6fYcSpEXLm MRSgH1BbxRFjFUmfC40 2ZMclWxC5OWIsbjRpV8 FfNFCwfXfuJzQ0m5J7Q q1XUP58PF90FE08xNCw e7D8jGO1T1CuYCIyrdj alnibqFK8BLCqAZSesY 13Jc5ovBpvNd2wCWIxM ZU0EKSkoYGpD6BzxL9m FkPmSTPkIZLsA2XjdYJ zDHmpG241KSxnYwV4KH QwlaEkU3OeSDSyzZjfN jT5n8G0Eh5FGx62YU95 RJ76eRMln9F5vRI3Q3Y gNJRzfqbywngzyMU4ZW EuYFYddT63Uw3faVkdD g7qWDUdQKG2UJOzmGCu L5XeuP7cHlBfYDWzCCG hX8OuxIEjDQkyY881AS svWjU5LNMhhwOnA5BiZ JVtoUbtHeG7n4K6Fr5J YRoyzub9L7BwPgdekIS +LH80CWDuSF84oKVitN Ofl4sclEu9KuNmDJWiS EP0jEgzWKmje6UjFIRx Y29s (more content not included)... [facility] Consent for Treatmenton Consent for Treatment [id number]#[id number]:127 [facility] Physician Orderon 10-21-2020 Physician Order [id number]:127 [facility] Consent for Treatmenton Consent for Treatment [id number]#[id number]:127 [facility] Physician Orderon 10-19-2020 Physician Order [id number]:127 [facility] XR Chest 2 [facility] XR Chest 2 [...] Ball M.D. Transcribed by: SHAYNA Technologist: BECKI [facility] Vital Signs Date Time Vital Sign Value Performing Clinician Facility 07-26-2023 11:27-0500 Body height 170.2 cm Kaitlyn Jasso MD Work Phone: [facility] 06-12-2023 13:00-0500 Body height 170.18 cm Shun Hill Other [facility] Other 06-12-2023 13:00-0500 Body mass index (BMI) [Ratio] 35.24 kg/m2 Shun Liz Other [facility] Other 06-12-2023 13:00-0500 Body weight 102.06 kg Shun Liz Other [facility] Other 03-15-2023 12:29-0400 Diastolic blood pressure 89 mm[Hg] DO Irma Burt Work Phone: [facility] 03-15-2023 12:29-0400 Heart rate 70 /min DO Irma Burt Work Phone: [facility] 03-15-2023 12:29-0400 Respiratory rate 16 /min DO Irma Burt Work Phone: [facility] 03-15-2023 12:29-0400 SaO2% (BldA) [Mass fraction] 100 % DO Irma Burt Work Phone: [facility] 03-15-2023 12:29-0400 Systolic blood pressure 132 mm[Hg] DO Irma Burt Work Phone: [facility] 03-15-2023 08:54-0400 Body height 170.18 cm DO Irma Burt Work Phone: [facility] 03-15-2023 08:54-0400 Body weight 90.71 kg DO Irma Burt Work Phone: [facility] 02-08-2023 14:45-0400 Body height 170.18 cm Shun Hill Other [facility] Other 02-08-2023 14:45-0400 Body mass index (BMI) [Ratio] 34.92 kg/m2 Shun Hill Other [facility] Other 02-08-2023 14:45-0400 Body weight 101.15 kg Shun Hill Other [facility] Other 02-08-2023 14:45-0400 Diastolic blood pressure 80 mm[Hg] Shun Hill Other [facility] Other 02-08-2023 14:45-0400 Systolic blood pressure 131 mm[Hg] Shun Hill Other [facility] Other 01-16-2023 10:35-0400 Body height 170.18 cm Aydee Nadiya Other [facility] Other 01-16-2023 10:35-0400 Body mass index (BMI) [Ratio] 35.2 kg/m2 Aydee Nadiya Other [facility] Other 01-16-2023 10:35-0400 Body temperature 98.3 [degF] Aydee Nadiya Other [facility] Other 01-16-2023 10:35-0400 Body weight 101.97 kg Aydee Nadiya Other [facility] Other 01-16-2023 10:35-0400 Diastolic blood pressure 66 mm[Hg] Aydee Nadiya Other [facility] Other 01-16-2023 10:35-0400 Respiratory rate 18 /min Aydee Nadiya Other [facility] Other 01-16-2023 10:35-0400 SaO2% (BldA) [Mass fraction] 98 % Aydee Nadiya Other [facility] Other 01-16-2023 10:35-0400 Systolic blood pressure 105 mm[Hg] Aydee Nadiya Other [facility] Other 09-23-2022 10:45-0400 Body height 170.18 cm Aydee Nadiya Other [facility] Other 09-23-2022 10:45-0400 Body mass index (BMI) [Ratio] 35.13 kg/m2 Aydee Nadiya Other [facility] Other 09-23-2022 10:45-0400 Body temperature 99.2 [degF] Aydee Nadiya Other [facility] Other 09-23-2022 10:45-0400 Body weight 101.74 kg Aydee Nadiya Other [facility] Other 09-23-2022 10:45-0400 Diastolic blood pressure 80 mm[Hg] Aydee Nadiya Other [facility] Other 09-23-2022 10:45-0400 Respiratory rate 18 /min Aydee Nadiya Other [facility] Other 09-23-2022 10:45-0400 SaO2% (BldA) [Mass fraction] 98 % Aydee Nadiya Other [facility] Other 09-23-2022 10:45-0400 Systolic blood pressure 125 mm[Hg] Aydee Nadiya Other [facility] Other 09-04-2022 11:20-0400 Body height 170.18 cm Aydee Nadiya Other [facility] Other 09-04-2022 11:20-0400 Body mass index (BMI) [Ratio] 31.32 kg/m2 Aydee Hearn Other [facility] Other 09-04-2022 11:20-0400 Body temperature 97.8 [degF] Aydee Hearn Other [facility] Other 09-04-2022 11:20-0400 Body weight 90.72 kg Aydee Hearn Other [facility] Other 09-04-2022 11:20-0400 Respiratory rate 18 /min Aydee Hearn Other [facility] Other 09-04-2022 11:20-0400 SaO2% (BldA) [Mass fraction] 99 % Aydee Hearn Other [facility] Other Encounters Encounter Date Encounter Type Care Provider Facility Start: 10-09-2023 End: 10-09-2023 ambulatory IRMA YI Not Available Start: 10-01-2023 End: 10-01-2023 ambulatory CATHERINE GASPAR [facility] Start: 09-20-2023 End: 09-21-2023 ambulatory [facility] Start: 09-18-2023 End: 09-18-2023 ambulatory SAGAR LUKE Not Available Start: 09-17-2023 End: 09-18-2023 ambulatory SAGAR R LUKE [facility] Start: 09-17-2023 End: 09-17-2023 ambulatory KAITLYN [facility] Start: 08-31-2023 End: 09-04-2023 ambulatory FROYLAN [facility] Start: 08-15-2023 End: 08-15-2023 ambulatory IRMA YI Not Available Start: 07-26-2023 Chart abstracting Kaitlyn Jasso MD Work Phone: [facility] Start: 07-18-2023 End: 07-18-2023 ambulatory SAGAR LUKE Not Available Start: 06-20-2023 End: 06-20-2023 ambulatory Shun Hill Other [facility] Other Start: 06-20-2023 Telephone encounter Shun Moncada ck [facility] Start: 06-19-2023 End: 06-19-2023 ambulatory SAGAR BOYDO Not Available Start: 06-12-2023 End: 06-12-2023 ambulatory Shun Hill Other [facility] Other Start: 06-12-2023 Office outpatient vi sit 15 minutes Shun Hill [facility] Start: 05-01-2023 End: 05-01-2023 ambulatory Shun Hill Facility:[facility] Start: 05-01-2023 End: 05-01-2023 ambulatory DO Irma D Burt Work Phone: [facility] Work Phone: Start: 05-01-2023 End: 05-01-2023 Patient encounter procedure DO Irma Burt Work Phone: [facility] Work Phone: Start: 04-10-2023 End: 04-10-2023 ambulatory Shun Hill Facility:[facility] Start: 04-10-2023 End: 04-10-2023 ambulatory DO Irma D Burt Work Phone: [facility] Work Phone: Start: 04-10-2023 End: 04-10-2023 Patient encounter procedure DO Irma Burt Work Phone: [facility] [place] Work Phone: Start: 04-06-2023 End: 04-06-2023 ambulatory Shun Hill Other [facility] Other Start: 04-06-2023 Telephone encounter Shun infante [facility] Start: 03-20-2023 End: 03-20-2023 ambulatory Shun Hill Other [facility] Other Start: 03-20-2023 Telephone encounter Shun infante [facility] Start: 03-19-2023 End: 03-19-2023 ambulatory Shun Hill Other [facility] Other Start: 03-19-2023 Telephone encounter Shun infante [facility] Start: 03-15-2023 End: 03-15-2023 ambulatory Shun Pascale Liz Facility:[facility] Start: 03-15-2023 End: 03-15-2023 Admission to same day surgery center DO Irma Burt Work Phone: [facility] Work Phone: Start: 03-15-2023 End: 03-15-2023 ambulatory DO Irma Burt Work Phone: [facility] Work Phone: Start: 02-26-2023 End: 02-26-2023 ambulatory Shun Hill Other [facility] Other Start: 02-26-2023 Telephone encounter Shun infante [facility] Start: 02-08-2023 End: 02-08-2023 ambulatory Shun Hill Other [facility] Other Start: 02-08-2023 Office outpatient ne w 45 minutes Shun Haleormack [facility] Start: 01-16-2023 End: 01-16-2023 ambulatory Aydee Hearn Other [facility] Other Start: 01-16-2023 Office outpatient vi sit 15 minutes Aydee Hearn [facility] Start: 09-23-2022 End: 09-23-2022 ambulatory Aydee Hearn Other [facility] Other Start: 09-23-2022 Office outpatient vi sit 15 minutes Aydee Hearn [facility] Start: 09-04-2022 End: 09-04-2022 ambulatory Aydee Hearn Other [facility] Other Start: 09-04-2022 Nursing evaluation o f patient and report Aydee Hearn [facility] Start: 07-12-2022 End: 07-12-2022 ambulatory Perla Yulisa Other [facility] Other Start: 07-12-2022 Office outpatient vi sit 5 minutes Perla Yulisa [facility] Start: 07-07-2022 End: 07-07-2022 ambulatory Aydee Hearn Other [facility] Other Start: 07-07-2022 Encounter for other preprocedural examination Aydee Hearn [facility] Start: 07-07-2022 Nursing evaluation o f patient and report Aydee Hearn [facility] Start: 02-03-2022 End: 02-03-2022 ambulatory Maria Guadalupe Powers Other [facility] Other Start: 02-03-2022 Office outpatient vi sit 5 minutes Maria Guadalupe Powers [facility] Procedures Date Procedure Procedure Detail Performing Clinician Start: 05-25-2023 Assay of thyroid stimulating hormone tsh Not In System Ref Prov Start: 05-01-2023 Ultrasound elastogra phy of liver DO Irma Burt Work Phone: Start: 04-10-2023 CT of abdomen with contrast DO Irma Burt Work Phone: Start: 03-15-2023 Kristian Bird Work Phone: Start: 12-13-2022 HIV 1&2 AB/AG [...] Td Vaccines (3 - Td or Tdap) [facility] Start: 09-17-2023 End: 09-17-2023 Patient encounter procedure 09/17/2023 8:45 AM EDT Office Visit [facility] [place] [address] [place] [id number] Kaitlyn Jasso MD [address] [facility] 1[address] [place], [place] [id number] [facility] Start: 09-17-2023 End: 09-17-2023 Patient encounter procedure 09/17/2023 7:30 AM EDT Appointment [facility] [address] [place] [phone] [facility] Start: 05-01-2023 [facility] Start: 03-15-2023 [facility] Start: 01-19-2023 COVID-19 Vaccine ( season) COVID-19 Vaccine ( season) [facility] Start: 01-19-2023 Influenza vaccination Influenza Vacc ine [facility] Start: 12-30-2021 Adult BMI Screening Adult BMI Screen ing [facility] Start: 2006 Screening for malign ant neoplasm of cervix Pap Smear [facility] Start: 1997 Depression Screening Depression Scre ening [facility] Start: 1997 Tobacco Screening Tobacco Screening [facility] Immunizations Immunization Date Immunization Notes Care Provider Fa cility 02-03-2020 influenza virus vaccine, unspecified formulation Kaitlyn Jasso MD Work Phone: [facility] Payers Date Payer Category Payer Private Health Insurance [id number] 2023 Self-pay [id number] 2018 Private Health Insurance [employer] A ETNA POS II [id number] 2018-Present [phone] [address] [place] [address] [id number] 1985 Unknown [id number] [id number] .1286 1985 Unknown [id number] 2.16.840.1.751149.3.579.2 .1286 1985 Unknown [id number] 2.16.840.1.146367.3.579.2 .1286 1985 Unknown [id number] 2.16.840.1.832435.3.579.2 .1286 1985 Unknown [id number] 2.16.840.1.215427.3.579.2 .1286 1985 Unknown [id number] 2.16.840.1.751054.3.579.2 .1259 1985 Unknown [id number] 2.16.840.1.475403.3.579.2 .1259 1985 Unknown [id number] 2.16.840.1.865052.3.579.2 .1259 1985 Unknown [id number] 2.16.840.1.356367.3.579.2 .1259 1985 Unknown [id number] 2.16.840.1.253125.3.579.2 .1259 Medicaid [facility] [id number] Private Health Insurance [id number] Unknown [facility] [id number] Unknown [id number] 2.16840.1.761570.3.579.2 .531 Unknown [id number] 2.16840.1.324657.3.579.2 .531 Unknown [id number] 2.16840.1.370963.3.579.2 .531 Social History Date Type Detail Facility Start: 06-30-2020 End: 07-26-[address] [facility] Other Start: 03-15-2023 End: 03-15-2023 Tobacco smoking status NVIS Ex-smoker (finding) [facility] Start: 1985 Sex Assigned At Female F [facility] Start: 11-17-2020 Tobacco smoking stat us NVIS Smokes tobacco daily [facility] History of tobacco use Tobacco U se Types Packs/Day Years Used Date Smoking Tobacco: Every Day Vaping/E-cigarettes Smokeless Tobacco: Never [facility] Start: 11-17-2020 Tobacco use and exposure Smokeless tobacco non-user [facility] Start: 07-26-2023 Alcohol intake Current drinke r of alcohol (finding) [facility] Start: 06-30-2020 End: 07-26-2023 History of Social function [facility] Childcare Unknown [facility] Start: 11-17-2020 Alcohol Comment social [facility] Start: 05-04-2023 [facility] Start: 1985 Sex Assigned At Not on file P [facility] Goals Date Patient Goal Desired Activity [...] Mayelin Pinto DO on 08/31/2023 11:23 AM [facility] 06-12-2023 Evaluation note Encounter Date Diagnosis Assessment Notes May, Diarrhea (ICD-10 - R19.7) Patient reports that she is about 7-8 weeks gestational Patient reports improvement on Creon with occasional flare Patient reports that she is taking a fiber supplement May, Fatty liver (ICD-10 - K76.0) Patient did have a FibroScan that indicates fatty liver and minimal scaring, this will be reviewed [facility] Other 11-17-2023 Evaluation note* Encounter Date Diagnosis Assessment Notes Treatment Notes Treatment Clinical Notes Mar, Exocrine pancreatic insufficiency (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) [facility] Other 10-31-2023 Evaluation note* Encounter Date Diagnosis Assessment Notes Treatment Notes Treatment Clinical Notes Feb, Alternating constipation and diarrhea (ICD-10 - R19.8) Feb, Fecal urgency (ICD-10 - R15.2) [facility] Other 10-30-2023 Evaluation note* Encounter Date Diagnosis Assessment Notes Treatment Notes Treatment Clinical Notes Feb, Alternating constipation and diarrhea (ICD-10 - R19.8) [facility] Other 10-26-2023 [facility]* Encounter Date Diagnosis Assessment Notes Treatment Notes Treatment Clinical Notes Feb, Alternating constipation and diarrhea (ICD-10 - R19.8) [facility] Other 09-21-2023 Evaluation note* Encounter Date Diagnosis Assessment Notes Treatment Notes Treatment Clinical Notes Jan, Alternating constipation and diarrhea (ICD-10 - R19.8) WORSENING DIARRHEA AND CONSTIPATION OVER THE PAST YEAR. DOES HAVE SOME NOCTURNAL AWAKENINGS WITH THE DIARRHEA. CAN GO 4-5 DAYS WITH OUT A BOWEL MOVEMENT WHEN SHE IS CONSTIPATED. WILL ORDER IBS WORK UP WILL PROCEED WITH COLONOSCOPY [facility] Other 08-29-2023 Evaluation note* Encounter Date Diagnosis [...] no improvement in 2 to 3 days [facility] Other 2023 Evaluation note* Encounter Date Diagnosis [...] no improvement in 2 to 3 days [facility] Other 04-17-2023 Evaluation note* Encounter Date Diagnosis Assessment Notes Treatment Notes Treatment Clinical Notes Aug, Contact with and (suspected) exposure to other viral communicable diseases (ICD-10 - Z20.828) [facility] Other 02-22-2023 Evaluation note* Encounter Date Diagnosis Assessment Notes Treatment Notes Treatment Clinical Notes Jun, Contact with and (suspected) exposure to covid-19 (ICD-10 - Z20.822) [facility] Other 02-17-2023 Evaluation note* Encounter Date Diagnosis Assessment Notes Treatment Notes Treatment Clinical Notes Jun, Preoperative clearance (ICD-10 - Z01.818) [facility] Other 09-16-2022 Evaluation note* Encounter Date Diagnosis Assessment Notes Treatment Notes Treatment Clinical Notes Jan, Contact with and (suspected) exposure to covid-19 (ICD-10 - Z20.822) [facility] Other Evaluation note* Diagnosis Onset Date Resolution Status Diarrhea acute [facility] Work Phone: Evaluation noteNo InformationNoresearch psychiatric center [facility] Other History general Narrative - Reported* Type Description Date Medical History ANXIETY AND DEPRESSION [facility] Other Hospital Discharge instructions Additional Instructions DISCHARGE [...] if you have any problems. -Office number [phone] Work Phone: InstructionsNot on filedocumented in this encounter [facility] for visit NarrativeRED EQUINOX, ANTIGEN PROCEDURE TESTNoresearch psychiatric center [facility] Other Reason for visit NarrativeNEEDSNEGATIVE, RAPID COVID TEST FOR PROCEDURENorth [employer] Other Summary Purpose Family History No Family [...] and content) DATE CREATED AUTHOR 08/24/2021 [facility] [employer] [facility] DATE CREATED AUTHOR AUTHOR'S ORGANIZ ATION 05/09/2023 [facility] DATE CREATED AUTHOR AUTHOR'S ORGANIZ ATION 09/22/2023 [facility] DATE CREATED AUTHOR AUTHOR'S ORGANIZ ATION 10/02/2023 [place] DATE CREATED AUTHOR AUTHOR'S ORGANIZ ATION 10/12/2023 [facility] EPIC REASON FOR VISIT (unrecogniz [...] Active Shun Hill MD Attending Provider Active 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 [employer] [facility]. provides no warranty or guarantee of the accuracy or completeness of information in this document.
[2023-10-22 09:14] LABS: Hematocrit 33.9 % (36.0-48.0); Hemoglobin 11.1 g/dL (12.0-16.0); Mean Corpuscular HGB Conc 32.7 g/dL (29.9-35.2); Mean Corpuscular Hemoglobin 30.7 pg (26.7-34.0); Mean Corpuscular Volume 93.6 fL (81.0-99.0); Mean Platelet Volume 10.4 fL (9.5-13.5); Platelet Count 177 10^3/uL (150-450); Red Blood Count 3.62 10^6/uL (4.20-5.40); Red Cell Distribution Width 14.4 % (11.0-15.0); White Blood Count 10.7 10^3/uL (4.0-11.0)
[2023-10-22 10:35] LABS: Glucose 1 Hour 170 mg/dL (<130)
[2023-10-22 10:37] LABS: Lymphocytes Absolute Manual 1.39 10^3/uL (1.20-3.80); Segmented Neut Absolute Manual 7.81 10^3/uL (1.4-6.5)
[2023-10-22 10:38] LABS: Monocytes Absolute Manual 0.64 10^3/uL (0.30-0.80)
[2023-10-22 10:39] LABS: Band Neutrophils Absolute 0.7 10^3/uL (0.0-0.3)
[2023-10-22 10:40] LABS: Poikilocytosis 1+
[2023-10-22 10:41] LABS: Tear Drop Cells 1+
== END 2023-10-22 07:40 | disposition home or self-care (01) ==
LOC: LAB 07:39
PROVIDERS: Visit Provider Physician Assistant
DX: Z13.1 Encounter for screening for diabetes mellitus (principal)
CPT/HCPCS: 36415; 82950; 85007; 85027

== ENCOUNTER 2023-10-26 07:14 | Outpatient (OUT) | payer OTHER, SELFPAY ==
--- OUTSIDE RECORDS SUMMARY | 2023-10-26 07:16 | XMS_ITS | CCD ---
Author Organization [facility] Inform ion Partnership [facility] Care Team Providers Care Hand Wrapper Operator Name Role Phone Maria Guadalupe Powers Unavailable NadiyaAydee anderson Unavailable Perla Márquez Unavailable Shun Hill Unavailable MD Shun Hill Attending Provider DO Irma Burt Primary Care Provider [phone] MD Shun Hill Attending Provider DO Irma Burt Primary Care Provider Shun Hill Admitting Unavailabl Irma Broussard Primary Care Unavailable Shun Hill Attending Unavailabl Shun Choudhury Attending Unavailabl Shun Choudhury Admitting Unavailabl Irma Broussard Primary Care Unavailable Shun Hill Admitting Unavailabl Irma Broussard Primary Care Unavailable Shun Hill Attending Unavailabl e No Pcp, No Pcp Primary Care Provider UnavailFROYLAN Carty Referring Unavailable NO PCP, NO PCP Primary Care Unavailable JASSO, KAITLYN Referring Unavailable NO PCP, NO PCP Primary Care Unavailable LETY BUTLERY Attending Unavailable LUKE, SAGAR Attending Unavailable IRMA YI Attending Unavailable LUKE, SAGAR Attending Unavailable IRMA YI Attending Unavailable LUKE, SAGAR R Referring Unavailable [...] NO PCP, NO PCP Primary Care Unavailable KAITLYN JASSO Attending Unavailable SAGAR BUTLER Referring Unavailable NO PCP, NO PCP Primary Care Unavailable Medications Current Medications Medication Drug Class(es) Dates Sig (Normalized) Sig (Original) amoxicillin 500 mg oral capsule (2 sources) Penicillin-class Antibacterial Start: 07-26-2022 take 1 capsule by mouth every eight hours Amoxicillin 500 MG 1 capsule Orally three times a day for 10 day(s) Jul, Active amylase 995758 unt / lipase 76990 unt / protease 602005 unt delayed release oral capsule (3 sources) Start: 04-06-2023 take 2 capsules by mouth three times daily at mealtime Creon 65174-842447 UNIT 2 capsules Orally three times a [...] 1 tablet by mouth twice daily Sutab 1197-022-046 MG 12 tablets the first dose the [...] 5 day(s) September, Not-Taking 84 hr estradiol 0.82990 mg/hr transdermal system (4 sources) Estrogen take [...] exposure to other viral communicable diseases Episodic Liveborn (1 source) Single liveborn infant, unspecified as to place of ; Translations: [Single liveborn infant, unspecified as to place of ] Onset: 10-22-2023 Episodic Other complications of (1 source) Obesity [...] conditions (not mental disorders or infectious disease) (4 sources) Encounter for other screening follow-up; Translations: [Encounter for screening for congenital cardiac abnormalities] Onset: 09-17-2023 Episodic Other upper respiratory infections (2 sources) Acute pharyngitis, unspecified; Translations: [Streptococcal pharyngitis] Episodic Pancreatic disorders (not diabetes) (2 sources) Exocrine pancreatic insufficiency; Translations: [Exocrine pancreatic insufficiency] Onset: 09-17-2023 Episodic Polyhydramnios and other problems of amniotic cavity (1 source) Polyhydramnios, unspecified trimester, not applicable or unspecified; Translations: [Polyhydramnios, unspecified trimester, not applicable or unspecified] Onset: 10-22-2023 Episodic Residual codes; unclassified (2 sources) 21 weeks gestation of ; Translations: [21 weeks gestation of ] Onset: 09-17-2023 Episodic Residual codes; unclassified (1 source) 26 weeks gestation of ; Translations: [26 weeks gestation of ] Onset: 10-22-2023 Episodic Residual codes; unclassified (1 source) Personal [...] RANDOM URINE PROTEIN 170 mg/L High <120 [facility] Comment on above: Performed By: #### U PCR #### [facility] ([id number]) [address] [address] U/PRO/ENGINEER STATION MAINLINE RATIO CALC 0.17 Normal <0.2 [facility] Comment on above: Result Comment: Neph rotic Syndrome is associated with ratios >3.5 Performed By: #### U PCR #### [facility] ([id number]) [address] [address] URINE CREATININE,RDM 98.06 mg/dL Normal [facility] Comment on above: Performed By: #### U PCR #### [facility] ([id number]) [address] [address] COMPLETE BLOOD COUNTon 09-16 Erythrocyte distribution width (RBC) [Ratio] 13.0 % Normal 11.5-15.0 [facility] Comment on above: Performed By: #### C BC, CMP, FEPR, 2532-0, 3084-1, TSHR, 2276-4, 2284-8, 2132-01 #### [facility] ([id number]) [address] [address] Hematocrit (Bld) [Volume fraction] 34.6 % Low 35-47 [facility] Comment on above: Performed By: #### C BC, CMP, FEPR, 2532-0, 3084-1, TSHR, 2276-4, 2284-8, 2132-01 #### [facility] ([id number]) [address] [address] Hemoglobin (Bld) [Mass/Vol] 11.9 g/dL Normal 11.7-15.5 [facility] Comment on above: Performed By: #### C BC, CMP, FEPR, 2532-0, 3084-1, TSHR, 2276-4, 2284-8, 2132-01 #### [facility] ([id number]) [address], [address] [place] [address] MCH (RBC) [Entitic mass] 30.9 pg Normal 27-34 [facility] Comment on above: Performed By: #### C BC, CMP, FEPR, 2532-0, 3084-1, TSHR, 2276-4, 2284-8, 2132-01 #### [facility] ([id number]) [address], [address] [place] [address] MCHC (RBC) [Mass/Vol] 34.4 g/dL Normal 32-36 [facility] Comment on above: Performed By: #### C BC, CMP, FEPR, 2532-0, 3084-1, TSHR, 2276-4, 4-8, 2132-01 #### [facility] ([id number]) [address], [address] [place] [address] MCV (RBC) [Entitic vol] 90 fL Normal 80-100 [facility] Comment on above: Performed By: #### C BC, CMP, FEPR, 2532-0, 3084-1, TSHR, 2276-4, 2284-8, 2132-01 #### [facility] ([id number]) [address], [address] [place] [address] Platelet mean volume (Bld) [Entitic vol] 9.4 fL Normal 7-12 [facility] Comment on above: Performed By: #### C BC, CMP, FEPR, 2532-0, 3084-1, TSHR, 2276-4, 2284-8, 2132-01 #### [facility] ([id number]) [address], [address] [place] [address] Platelets (Bld) [#/Vol] 181 10*3/uL Normal 150-450 [facility] Comment on above: Performed By: #### C BC, CMP, FEPR, 2532-0, 3084-1, TSHR, 2276-4, 2284-8, 2132-01 #### [facility] ([id number]) [address], [address] [place] [address] RBC COUNT 3.85 X10E12/L Normal 3.80-5.20 [facility] Comment on above: Performed By: #### C BC, CMP, FEPR, 2532-0, 3084-1, TSHR, 2276-4, 2284-8, 2132-01 #### [facility] ([id number]) [address], [address] [place] [address] WBC (Bld) [#/Vol] 11.3 10*3/uL High 4.0-11.0 [facility] Comment on above: Performed By: #### C BC, CMP, FEPR, 2532-0, 3084-1, TSHR, 2276-4, 2284-8, 2132-01 #### [facility] ([id number]) [address], [address] [place] [address] COMPREHENSIVE METABOLIC PANE Charles 09-17-2023 Albumin [Mass/Vol] 3.4 g/dL Normal 3.2-5.3 [facility] Comment on above: Performed By: #### C BC, CMP, FEPR, 2532-0, 3084-1, TSHR, 2276-4, 2284-8, 2132-01 #### [facility] ([id number]) [address], [address] [place] [address] ALP [Catalytic activity/Vol] 71 U/L Normal 39-130 [facility] Comment on above: Performed By: #### C BC, CMP, FEPR, 2532-0, 3084-1, TSHR, 2276-4, 2284-8, 2131-9 #### [facility] ([id number]) [address], [address] [place] [address] ALT [Catalytic activity/Vol] 11 U/L Normal 0-31 [facility] Comment on above: Performed By: #### C BC, CMP, FEPR, 2532-0, 3084-1, TSHR, 2276-4, 2284-8, 2131-9 #### [facility] ([id number]) [address], [address] [place] [address] Anion gap [Moles/Vol] 11 mmol/L Normal 5-15 [facility] Comment on above: Performed By: #### C BC, CMP, FEPR, 2532-0, 3084-1, TSHR, 2276-4, 2284-8, 2131- #### [facility] ([id number]) [address], [address] [place] [address] AST [Catalytic activity/Vol] 13 U/L Normal 0-41 [facility] Comment on above: Performed By: #### C BC, CMP, FEPR, 2532-0, 3084-1, TSHR, 2276-4, 2284-8, 2131- #### [facility] ([id number]) [address], [address] [place] [address] Bilirubin [Mass/Vol] 0.3 mg/dL Normal 0.3-1.2 [facility] Comment on above: Performed By: #### C BC, CMP, FEPR, 2532-0, 3084-1, TSHR, 2276-4, 2284-8, 2131-9 #### [facility] ([id number]) [address], [address] [place] [address] Calcium [Mass/Vol] 9.0 mg/dL Normal 8.5-10.5 [facility] Comment on above: Performed By: #### C BC, CMP, FEPR, 2532-0, 3084-1, TSHR, 2276-4, 2284-8, 2132-01 #### [facility] ([id number]) [address], [address] [place] [address] Chloride [Moles/Vol] 104 mmol/L Normal 98-109 [facility] Comment on above: Performed By: #### C BC, CMP, FEPR, 2532-0, 3084-1, TSHR, 2276-4, 2284-8, 2132-01 #### [facility] ([id number]) [address], [address] [place] [address] CO2 [Moles/Vol] 24 mmol/L Normal 22-32 [facility] Comment on above: Performed By: #### C BC, CMP, FEPR, 2532-0, 3084-1, TSHR, 2276-4, 2284-8, 2132-01 #### [facility] ([id number]) [address], [address] [place] [address] Creatinine [Mass/Vol] 0.46 mg/dL Normal 0.40-1.00 [facility] Comment on above: Result Comment: METH OD TRACEABLE TO IDMS STANDARD Performed By: #### C BC, CMP, FEPR, 2532-0, 3084-1, TSHR, 2276-4, 2284-8, 2132-01 #### [facility] ([id number]) [address], [address] [place] [address] eGFR (CKD-EPI) NON-RACE DEPENDENT >90 Normal >59 [facility] Comment on above: Result Comment: Reported eGFR is based on the CKD-EPI 2020 equation that does not use a race coefficient. Performed By: #### C BC, CMP, FEPR, 2532-0, 3084-1, TSHR, 2276-4, 2284-8, 2132-01 #### [facility] ([id number]) [address], [address] [place] [address] Glucose [Mass/Vol] 78 mg/dL Normal 65-99 [facility] Comment on above: Performed By: #### C BC, CMP, FEPR, 2532-0, 3084-1, TSHR, 2276-4, 2284-8, 2132-01 #### [facility] ([id number]) [address], [address] [place] [address] Potassium [Moles/Vol] 4.0 mmol/L Normal 3.5-5.0 [facility] Comment on above: Performed By: #### C BC, CMP, FEPR, 2532-0, 3084-1, TSHR, 2276-4, 2284-8, 2132-01 #### [facility] ([id number]) [address], [address] [place] [address] Protein [Mass/Vol] 6.5 g/dL Normal 6.0-8.0 [facility] Comment on above: Performed By: #### C BC, CMP, FEPR, 2532-0, 3084-1, TSHR, 2276-4, 2284-8, 2132-01 #### [facility] ([id number]) [address], [address] [place] [address] Sodium [Moles/Vol] 139 mmol/L Normal 134-146 [facility] Comment on above: Performed By: #### C BC, CMP, FEPR, 2532-0, 3084-1, TSHR, 2276-4, 2284-8, 2132-01 #### [facility] ([id number]) [address], [address] [place] [address] Urea nitrogen [Mass/Vol] 8 mg/dL Normal 5-23 [facility] Comment on above: Performed By: #### C BC, CMP, FEPR, 2532-0, 3084-1, TSHR, 2276-4, 2284-8, 2132-01 #### [facility] ([id number]) [address] [place] [address] FERRITINon 09-17-2023 Ferritin [Mass/Vol] 11 ng/mL Normal 11-307 [facility] Comment on above: Performed By: #### C BC, CMP, FEPR, 2532-0, 3084-1, TSHR, 2276-4, 2284-8, 2132-01 #### [facility] ([id number]) [address], [address] [place] [address] Folate [Mass/Vol]on 09-17-19 24 FOLIC ACID 18.1 ng/mL Normal >5.8 [facility] Comment on above: Result Comment: NEW REFERENCE RANGE Performed By: #### C BC, CMP, FEPR, 2532-0, 3084-1, TSHR, 2276-4, 2284-8, 2132-01 #### [facility] ([id number]) [address], [address] [place] [address] IRON PROFILEon 09-17-2023 Iron [Mass/Vol] 52 ug/dL Normal 50-170 [facility] Comment on above: Performed By: #### C BC, CMP, FEPR, 2532-0, 3084-1, TSHR, 2276-4, 2284-8, 2132-01 #### [facility] ([id number]) [address], [address] [place] [address] IRON BINDING 580 ug/dL High 250-425 [facility] Comment on above: Performed By: #### C BC, CMP, FEPR, 2532-0, 3084-1, TSHR, 2276-4, 2284-8, 2132-01 #### [facility] ([id number]) [address], [address] [place] [address] IRON SATURATION 9 % SATURATION Low 15-50 [facility] Comment on above: Performed By: #### C BC, CMP, FEPR, 2532-0, 3084-1, TSHR, 2276-4, 2284-8, 2132-01 #### [facility] ([id number]) [address], [address] [place] [address] LDH [Catalytic activity/Vol] on 09-17-2023 LDH 124 U/L Normal 100-235 [facility] Comment on above: Performed By: #### C BC, CMP, FEPR, 2532-0, 3084-1, TSHR, 2276-4, 2284-8, 2132-01 #### [facility] ([id number]) [address], [address] [place] [address] Natriuretic peptide B [Mass/ Vol]on 09-17-2023 Natriuretic peptide B (Bld) [Mass/Vol] 66 pg/mL Normal <100.0 [facility] Comment on above: Performed By: #### C BC, CMP, FEPR, 2532-0, 3084-1, TSHR, 2276-4, 2284-8, 2132-01 #### [facility] ([id number]) [address], [address] [place] [address] TSH WITH REFLEXon 09-17-2023 TSH 0.78 uIU/mL Normal 0.49-4.67 [facility] Comment on above: Performed By: #### C BC, CMP, FEPR, 2532-0, 3084-1, TSHR, 2276-4, 2284-8, 2132-01 #### [facility] ([id number]) [address], [address] [place] [address] Thiamine (Bld) [Mass/Vol]on 09-17-2023 THIAMIN VITAMIN B1 See Below Normal [facility] Comment on above: Result Comment: NOTE TEST [...] developed and its performance characteristics determined by [facility] [place] [facility] [place] ([facility]). It has not been cleared or approved by the FDA. [facility] is regulated under CLIA as qualified to perform high-complexity testing. This test is used for clinical purposes. It should not be regarded as investigational or for research. Test Performed By: [place] [address] Graining Machine Operator: Colin Cisneros III, M.D. CLIA #[id number] Performed By: #### C BC, CMP, FEPR, 2532-0, 3084-1, TSHR, 2276-4, 2284-8, 2132-01 #### [facility] ([id number]) [address] [place] [address], [address] [address] URIC ACIDon 09-17-2023 Urate [Mass/Vol] 5.1 mg/dL Normal 2.6-7.2 [facility] Comment on above: Performed By: #### C BC, CMP, FEPR, 2532-0, 3084-1, TSHR, 2276-4, 2284-8, 9 #### [facility] ([id number]) [address] [place] [address], [facility] [address] [place] [address] VITAMIN B12on 09-17-2023 Cobalamin (Vitamin B12) [Mass/Vol] 185 pg/mL Normal 180-914 [facility] Comment on above: Performed By: #### C BC, CMP, FEPR, 2532-0, 3084-1, TSHR, 2276-4, 2284-8, 2132-9 #### [facility] ([id number]) [address] [facility] [place] [address] TSHon 05-25-2023 Thyroid Stimulating (3Rd Generation) Hormone/ Tsh 2.200 [facility] CT abdomen w conon 3 CT abdomen w con [facility] [place] [address] [place], [place] [address] CT Scan Report Signed Patient: Laura Alves MR#: [id number] 3 : 1985 Acct:[id number] Age/Sex: 37 / F ADM Date: 04/10/23 Loc: CT Room: Type: [facility] Attending Dr: Shun Hill MD Copies to: [...] Stan Owens M.D.04/10/2023 4:03 PM Dictation Location: [place] [address] Transcribed By: [facility] 04/10/23 1495 Dictated By: Stan Owens DO 04/10/23 1558 Signed By: 04/10/23 1603 Normal [facility] HCG ( test) IAjuan antonio d Ql (U)Ordered By: Shun Hill on 03-15-2023 HCG ( test) Ql (U) Negative [facility] HCG,Urineon 03-15-2023 Beta HCG ( test) Ql (U) Negative Normal [facility] Comment on above: Result Comment: PERF ORMED BY: [place] [id number] PATHOLOGIST UNDERTAKER ASSISTANT MARINA AYALA M.D. Performed By: #### U HCG #### [address] 03-15-2023 L Specimen: [id number] Received: 03/15/23 Status: BUSTER Gonsalezvanessa Num: [id number] Spec Type: Surgical Subm Dr: Shun Hill MD Tissues: A Colon Biopsy (SURVEILLANCE BX) Procedures: HE/2, Gross/Micro L4 Age/ Patient Sex Location Account Attending Physician Laura Alves 37/F [id number] Shun Hill MD SPEC NUM: [id number] RECD: 03/15/23 STATUS: [facility] NUM: [id number] SUMIT: 03/15/23 DR: Shun Hill MD ENTERED: 03/15/[address]: SPEC TYPE: Surgical DEPT: S ORDERED: [...] The microscopic examination confirms the diagnosis. Specimen: [id number] Received: 03/15/23 Status: BUSTER Sunshine Num: [id number] Spec Type: Surgical Subm Dr: Shun Hill MD Tissues: A Colon Biopsy (SURVEILLANCE BX) Procedures: HE/2, Gross/Micro L4 Patient: Laura Alves [id number] (Continued) Specimen: [id number] Received: 03/15/23 (Continued) Signed (signatur e on file) Winston Donis MD 03/16/23 1737 Specimen: [id number] Received: 03/15/23 Status: BUSTER Fuentes Num: [id number] Spec Type: Surgical Subm Dr: Shun Hill MD Tissues: A Colon Biopsy (SURVEILLANCE BX) Procedures: HE/2, Gross/Micro L4 Patient: Laura Alves [id number] (Continued) Specimen: Received: 03/15/23 (Continued) CPT Codes 15394 Specimen: Received: 03/15/23 Status: BUSTER Fuentes Num: [id number] Spec Type: Surgical Subm Dr: Shun Hill MD Tissues: A Colon Biopsy (SURVEILLANCE BX) Procedures: HE/2, Gross/Micro L4 Patient: Laura Alves [id number] (Continued) Signed (signatur e on file) Robbi-Tyrel Donis MD 03/16/23 1737 [facility] SARS-CoV-2 (COVID-19) RNA NA A+probe Ql (Resp)on 01-16-2023 SARS-CoV-2 (COVID-19) RNA GEORGE+probe Ql (Unsp spec) Positive Hello Agent Other HIV 1&2 AB/AG Screen (P24 AG )on 12-13-2022 HIV 1&2 AB/AG Non-Reactive [facility] Hepatitis B surface antigeno n 12-13-2022 Hepatitis B Surface Antigen Negative [facility] No Panel InformationOrdered By: Rae Agudelo on 12-13-2022 [facility] Rubella IGG immune statuson 12-13-2022 Rubella immune IgG <0.90 NON IMMUNE [facility] Syphilis Total(Unknown Syphi lis Status)Ordered By: Rae Agudelo on 12-13-2022 Syphilis Non-Reactive [facility] [facility] COVID Quick Testingon 2022 Result Negative Hello Agent Other COVID Quick Testingon 2022 Result Negative Hello Agent Other COVID Quick Testingon 2022 Result Negative Hello Agent Other COVID Quick Testingon 2021 Result Negative Hello Agent Other Consent for Treatmenton 05-21 Consent for Treatment [id number] 318#1.00CD:127 [facility] Coding Summary.on 05-28-2021 Coding Summary. CD:[id number]:[id number] GBy0iTf+PGhlYWQ+PE1 NIXOzW52iaSJhjW2DE5 lBCK0OAQAIZRSWQO3JV V5hsRJ6MAkvQ0QbcnSw ClqnyMBlVI81PGt6EOD 1qQgmQNpajJ5lgCYsD2 w7RhDpPP25kS74ERunN FGsUdZ3PpPvhichsVLp C7euRdSbzNJcGtz+PHR hYmxlIHdpZHRoPScxMD BaXlEhzZfhBN1pSb9aR GVyLWNvbGxhcHNlOiBj f6iqSLOwAIwePI8osTi aI1KlkWV5IVUmw3c4Pp 48dHI+FCEeREB1hQoeS Xoou430XuMrg0wxKQD6 xQPjTRuuQBM7G43gp6X 9HLApVFEqWBL4kCE3oR 4dwMwdndojX5ZuyYWxA tX3HIJ9uLIojV1dnOcq csytzP0dBjd+I37EFG1 BVDJFHG6OHjz0S2SsMe wvdHI+GA16HWDeHY12q NFqzMHys5kywQi3AeDy UVSxYDF8tHqdWNuit3S gNANbA73kvUOdh9Z8JV GstNigkSWsCzHyeFN4y E8kDCxcgjecz3ikmwoe Mhelj9osbo64xL37K31 rYOdwAZArNVC2ZOQuSH UrsEjqzi0vaL8cHw4+I Eicc9mrg2pinLc1LvJa GKRvwaGixGqhBRE9o9E gCi04U5MkxYuht4PfFz y0wq48iAKva4L4iPQ0K XfkEJOqqK5dRGldFhY9 DFKxGkYabS65eRXqNZm iHb5dgIvncJbyLY1iGK YpdvjoDTMplE4jNFBin JCxzLqmOY8aQWEbnayy i117CkJxUGY7TRFhtDN dI1OiwL4zNjDqEMZxRN LiP0TfqXKaEYfbQ018D BsbAaL2YFBbiaRaF8Mm GLElrMhvZsD0b1E8Ma9 Lt8LzypxvFWO8ZTraCD SeIjQ7XhKoKiE5D1NoX qz8JLBjnGxaIL7bP8Cg KNXvqixegtsldWB2EPG hMIYxyI23lHFrPZnbMz 2si6W0d599TXHcYXLve W84Tl6vnBtzOBLyqEGN dJ8ubhayl8pmoswuUpM sRKPjQGg4NIm5KGBxaO hjHrXtGND1LbD4DVC9v FPipM5hzSwjwhnduE1m Oyc+T18euY9cTKQ9LKT 4dpxdTFDclsOyQK07RW 11O2SsGnmvcKBwzVV+P WDilnDztLueVO6dErVi e8uoq9ByCNutJ0OeBJO oRKjiGjc6KSPpCVI6nO P5kV5sDSEdGTnjl8G6p YC7R2LwteEluh0eh6hv YZIkMMniC59taYTud4O 0NEHlaBX6OAEjhYesSz HdiT39Ind+PGNvbGdyb 5JrMmodm1ecp7vacHe7 IjMwJSIgdmFsaWduPSJ 8t2VlCs48A06mSXdwFT RoPSIxNSUiIHZhbGlnb a9icW9pDk5+PGNvbCB3 rPF9tT7vCGAwVrK1ELw nB329MbMhxHLdGlztg3 jvs4eovPj0MeEvJTSug vBdmKqwQKQ3b2OuJl75 V13uUDzsBAWrFMKzAJM kJXKknRgide8bhZ5dWg 8+MP4ih8gjwp34kP83a HI+QYHmJRF0vHzbBWyo YFLecN2dUZufLiL1SHL cJvPvpP97pHVeJSncBn 5zqKynjFweOG0hOSOzw uepg752XeNes6dzALNr zZNsRYdcEQY6T02mk1M 8IODmTHRfYQQ2gHU9nZ 1hbGlnbjogbGVmdDsgd mLocDovRRdzVGkqQ319 IHRvcDsnPlBhdGllbnQ cRzOmGEb1J1GgBwx4YG RtkFukUU5sgPLpGKgoB r9dbEdbsWqxMQ9fXKKj avult618HxHix5zlDWL smDNyICmeFHU4Z49vy5 Q4XMTgLAQsNTU2uZV1b X8hyQthbvbjfAYnzBje rzMzqHhvOWohGPbfO08 6IHRvcDsnPkJpcnRoIE VsaJF3GO82LH88fWHwo 1B1dOC4W2ZeEFVqvydj nwberTO9GEDfGBRpmG4 8Bu7rpRpjUa2qWALgVV T3SRFnnYVkI3OggI1yZ vPmPUAjNDGaO1AmtSEn XGlyR693EOqwWuI9MPI ntlNvH9WxDYIdcDthFg E7a9G9Yf1CJ1W9XM90Z Q58sZHgx4B4aFH4J4Wd AOAfqzuyypjohQU9QKQ dAINvvR14Kj9vgCwwMv 5sUMSeZFZ8YIAwqPOlK 8GxcB1uLlWaDLDqGWGc B5LijWQrYAbkZ037UVk yCaA0ZLBnulRnT7QmCL HiqLyeYlS9x9U7Yo5GR Gl2TZ54GF54iPLxr4Q0 qPP6A7DmEFKvarwxdvc wiCN3WMUmAGVrmB80Fa 0ytCvaHj7pBVOkILI6U QMgpKExS7ZrvV6ySvZc KWMgHHAtP7DesFGtBEi xB603NNrnOtP5RTHakn XbQ9FuBCFjxCtsToF3q 0P3Nq0XXTTgHP45SAV5 zIC3VE46IS71P9RmJds vdGFibGU+PHRhYmxlIH dpZHRoPScxMDAlJyBzd CqsVL9yTc7qLYGxYFDv bWpajPEfFhEfq4bpGPG lDPajKZ3cyLykD6JxkD I5JTOdu9r6Pj04L70iF 3JvdXA+PNSonQR0eLR5 oN9gXpHlIdF7MSruA69 1TiLxnHJwAjaun1fdb0 yydNo7OlQ5HFPkfsAni YsuGLF1a1RhKs70V56c IHdpZHRoPSIxNSUiIHZ guMnqtw5ooH7nQq5+PG PavWE0cKV7tF0rZbSaP qQ2DEwwA716HtDomSXp Jwlad9pkr1bjjIy7NpI bQROgukRxtYeiHSH3m8 MbNh32J8ApvOwxw1RpY ah7ul53zRDhz7U6xGD6 M1FmUIGiqcshjVRvdTx zAO1xVHPetkphHSJxkE 7xWYXiP2h9CrTfHmT0E OpwU7YxzbC2KIGufFTs YPvqPYX4F17ag6X7YGV lUATjAST3fKG2hQ0idG lnbjogbGVmdDsgdmVyd VoeNAxcJKhgA011FDOf zUryGMChsF3yMEUlaFQ yyHezNA8yNNKjfpdrCx nSZE8QKYZLWpvjCOsQP HMXYEBJAC04KJ87vUJj h5I3cEJ6X6NmYBKyfkm kamcazVN5NNGpDGKklV 05uVPjPQbpCj0ic0X7a 703OOUbKCPolT95Sv6r lPjpIWMbbDUXeL2xbnk fb9jlqbwmQmMpMXWiFF r9NPo1QBFlaZcnBmDqG MF1BdG2QHV2fJHmpK0h tFecrrcunA4rZjo+MTI sECvvCZe3QGdntIQ+PH MoRLD2lZhhAJofWQIsv N7jPPVhT7l0IbZoTtA5 YHavM9BfEMPognzyZh3 2aK9sAtXxMoU3PLnwT7 LtqeA3AFTlqEGzZFiqM KK6T29rw1V4FVZkZTLi TNN9zSI3rO9uqYbwrfb gbGVmdDsgdmVydGljYW ilJZveU414KMVivNqqT eE7DBuqOOOfUV12AM45 eKLkm7W4wHL7Y1UyATL gfluwlqiwmUJ2UAGhMX TosQ61zKAwKWhxRp6oa 9L5v280SLOfRUTobC38 Hj4gwUngBWTiuALMeY8 yewqln5bhbwndCaAcSI QdJTt5EYn4TTJilUazE sUfTXA6FyW9WJR8oVFa eG8apZadojhmqQ8wIne +DlHoFLfbLB94CU03lU Pnj6O3bEW4E4YzKKMpl ttmpwjnhSG8IILzXMBl yR92cKFuKSqjZp3yl1R 0s485QIVhTURqbS82Tc 2hsDedQXSaoGGYiB2fi hlin1awrrteTlWkVUBj HIz0WNa4QGXksXoqDoJ cUHL1IgQ7XXO6yYVymE 7fbTcihprfqY4aZyn+U zKaeFFfuT5lVF67TF38 I0HsHczwsOQlsRT+PHR hYmxlIHdpZHRoPScxMD IvJhBhyOdpOG6eVf0jZ GVyLWNvbGxhcHNlOiBj p0ntXPHoUHsdRQ8psBb xW9MzhMM2PODuq5o6Pb 82O91gD1KcnAL+PGNvb UU5uCD6gL3yDjPlVwA2 OLekT547BiHxrONdXat py3irz3ihhKs4SmRwZM DdheOrqIewNXJ9m8RbO i37B90tZDqzZBMiSRKz LPZvFYVzzOsozw1blN1 wIi8+VSEakSY9rFE4vO 3vVoIeQiQ8ERbjC454V sZgfASnHsimG85qT7Ju dXA+OHDbNsg8GMGkqEe zNA3bjYOpQMmqRy7qLX W1QgHzNkUeGFvcA5PnW BXcrzmqhdnudIJ3VYEg UYFziH12Hm9leJytEe2 cJDDvMOS3QWCuaAZnG0 YvyH7jOdHhHOKwERTaL 3OqlDFoPDdyF884LCpd CnM0HPJsriUgS4IkFTQ fjNwoJmW4k1Z8Dq0FnD vxmQGrKY0zQxAgYZf1M 0HmYee2FESfeSnjPD2f lIBoVUmhIj5jbXqftGg wXJ7rUILaniycz549Df Lop5ddTOQakEPaWVliX FV1P99cv1S2IPYnQMEd AKI9rKF1iJ2hgSwnoty gbGVmdDsgdmVydGljYW dqQMwqB861FVFizZkrK hHCYkc9O7AoVqv7DNHx iCitCE5yqQXnEHnmJs8 nuArmjSqbQJ5qGJPxbg ccb057IdFka2qoPWUff EPfLCjxLBQ6O97ck6T9 GIUhNXGrVZG2mXJ5uM7 hbGlnbjogbGVmdDsgdm ZsnKyaZUrsUUrtR018R NMhgBzfCr1QKvq8Z6En Ayw7TMRorTymJB2hdIE pGAhrRu7wmDcgnQvhWB 4rXYRabjuha234HjTyh 8ptFRWcpTLdZZdqEAE7 B56zn8W2NCOuPETbIUI 8cFZ1fC8wvVeqzcennP VmdDsgdmVydGljYWwtY IazY188LWNtmGxoQjUj eWVyOjwvdGQ+YR99zo7 5Q3IdFgieXuq1UOKtCI V3yUS3hJ0yGLOpRXtfr 8L1fEJ4X6SmitIhqq5x b2xs (more content not included)... Normal [facility] Priority Order-Juan 2021 Priority Order-STAT Comment Invalid Interpretation Code [facility] Comment on above: Result Comment: Rece ived Performed at: [facility] [address] [facility], [place] [id number] [facility] Mina Foxfran Performed By: #### S ARS-CoV-2, GEORGE, [id number] #### [facility] [address] [place] [address] SARS-CoV-2, NAAon 05-25-2021 SARS-CoV-2 (COVID-19) RNA GEORGE+probe Ql (Resp) Not detected Invalid Interpretation Code Not Detected [facility] Comment on above: Result Comment: This nucleic acid amplification test was developed and its performance characteristics determined by [employer]. Nucleic acid amplification tests include RT-PCR and [...] detected) result in this assay. Performed at: [facility] [id number] PhD Shalom Gonzalez Performed By: #### S ARS-CoV-2, GEORGE, [id number] #### [facility] [address] [place] [id number] Family Medicine Phone Visit - Telehealthon 05-22-2021 [...] 6 months ago. Has been using DayQuil nrou-ahb-oxuzwgm with moderate improvement. Review of Systems Fatigue: [...] only communication with the patient located at [address] [place] [phone], with no one else. If it is [...] Patient verbalized understanding Ordered: Rapid COVID Antigen ([facility]) Telephone Est 5 to 10 minutes 62129 2. Fatigue (R53.83: Other fatigue) see above plan, rule out covid. Ordered: Rapid COVID Antigen ([facility]) Telephone Est 5 to 10 minutes 02810 3. BMI 27.0-27.9,adult (Z68.27: Body mass index [...] 1035F Telephone Est 5 to 10 minutes 36762 Follow-up With When Contact Information Irma Burt [...] Methamphetamines, Pre (more content not included)... Normal [facility] Comment on above: Result Comment: Elec tronically Signed By: NAFISA SANCHEZ, Eleanor Tabor\.br\Date and Time Signed: 05/22/21 12:59 EST Patient Educationon 05-22-19 22 Patient Education Nutrition BMI for Adults Body [...] 01/16/2005 Document Revised: 04/19/2018 Document Reviewed: 03/20/2018 [employer] Patient Education ? 2019 [employer]. [facility] Physician Orderon 04-27-2021 Physician Order [id number] 8#1.00CD:127 [facility] Coding Summary.on 11-04-2020 Coding Summary. CD:[id number]:[id number] SZy2eDa+PGhlYWQ+PE1 MRHOaX38jxTVlmB9YH7 mNAZ0QQNUQDWZUOQ5RS G9ixGI3MOjsO9YhilRy JhdxjDVdUT19JBl2GVV 6cOkrQJxvzZ9ufYXzN3 r5QsVeBF56qT24WMfgN VVpOfI0HvNgnyameTCl H1rcPzUteCEkOmt+PHR hYmxlIHdpZHRoPScxMD EfYlYonEhbSR0iQu0oF GVyLWNvbGxhcHNlOiBj q4nvGMEvOEfuYC5wiWr jY7UsqOT7JRVcu8n4Fq 48dHI+CGDrWMK9wAohJ Fegd094IbShi8ivHWC3 qNJbIQghVMN7K78bn4A 2ETWmGAYnHYL8aBX2bA 0iwJvkyfagA8DfpCHaI bE6UQP3wMQzcV3qzAvx ototlG7xIzx+B79UGT3 MHSHNEF8ICtv6G9OuGh wvdHI+JI06BNXjDC98a BCbqOSqm8mefWj0UqVa RURpLKU8yXcbISgla5V uAKMyG51whRAfn6L4AI VujGofpGNeSpObpRC0k Z6aKAgqtoblm2hnsqdo Sjqjv5zdkh30bA86L08 fYPvxYTTwXWL0LMZgRB OcoCizof0beP5uKw5+I Jido9oxd6rluWx5NfRg WWJwipCdtKbhAQN9s4K pZg76W9NqnEngt7ZsPx s3pl03iFHiw4X1pOP3D XamYKBdzU0mRIwwEaM2 ILXhZqYzgH16zONhIQl aCj8blNvhfQlvDQ7oRE KvvgejREKfaR8xOPBpk RCqmPkqXT2oXEAldqne f338LlRrMIJ6BSMjzFI bL8KpkP5pYhBoHCShFQ ZqW8JosHDdQVcvA967X SnfBhZ6LDCvgqFdA8Bw ITOxxIudTjN3b6I7Xu9 Ya8ZboygxDKY0CXlsLB E4GlN5ByFeAqR5U7IpB tr9FINgyLmgBK8uZ5Nm ZFMwkvegtgoacGW6WUW zWNArvD91kNVaWSktGl 0fh5Y4k261QPWtUHPlk Y99Bs4ilSwbWCAzsLVO wC9mtwxtj3uszipgHtK vQPDpYNt6LUu1CTIqlM nrLlYzCHQ9RaM4MZI2s ODkqC9dlLytnabmqX0a Oyc+L74cpU6nAMC6VFI 6mecxJVPagkTgUC92LA 00L2CbEjoxxEInkXE+P QDggtUesLbsPV0zOhLv f4ajl6AgEMsfF0MfYCJ gIFfsTaa4LJBrCRX9pD R0yG1iDDUwPTdwd9E7a DR1W7IdcsEobt9iz5ea UPDeDSiyP88pdEHtk6L 9MBTnaQY8CYVojSkwTa SstI79Plk+PGNvbGdyb 0StXlwkq3uzg8vdaYl6 IjMwJSIgdmFsaWduPSJ 0z7TuOu89C94pBEfaIB RoPSIxNSUiIHZhbGlnb s3svY5wKc0+PGNvbCB3 hDB7yZ5wVLQiDuG8NRf nX476RtFdvDXuPqmbu6 cpl7rpvQj2DnTfXSOyq rAfrMxaXYB2u6OeLy64 M15nFChtGOJbQKPoHIL dAIEohEghjx9zfG9jWg 8+ZK6nb8tuqc33lN05x HI+AMGgRQJ7rHvaKVib CNNwnF0lDGejPsD5TTS gMdFbrP00kYStAEgbMg 3ioPszgCkiMO6kKURpc ujne630NwHsd5wmDYDn vCCmUPoaRLE1G94ql0C 1BXWmVYCuVCS7tZE7cB 1hbGlnbjogbGVmdDsgd sHciKzbLWrcOVlqF409 IHRvcDsnPlBhdGllbnQ sRaWdOTp5K7RfIwd3MR CsiUvyIZ7rmZOoSJglC v0otQpxtVrkEN8kSUYq trpjn185AjMju7xmTKS xoUEwCAobOBD7P31cj3 U0TSPlPGBjKCO3hTW6o H5rrAtnbqxdyGNszFoo emOpjHojWLfzVGapH96 6IHRvcDsnPkJpcnRoIE PfiDH8VR75FH87nDXha 5J0pTY5Q6PhQGLojnun kgdlzUP3GQEcGRJkvQ4 7Ep9rhGoyBf0sWKKdWP F3FOVyjVEvK0OosP5eT mHvFZPvFXGcU2QocHPe GIyrQ557MRjvSzL2XYT adkFiP7ZvNDNrlPeiRo M4d9R9Ol2BK6K7CE53J G07uXAyv8U3xCA9L6My EBSrllfizxefrRW9ICA rHYKpzG81Ne2fdYbiVj 6zFELgVUY0HVBlqQZoH 6RopO9lUaMqPUAxBKWj C4QhqXPhMAbmT344KFc pOvJ1ELHyazPzE2UwJJ YrgMfdJeT4x7C5Ed2XW Hh8OF43PL14cLPov0X5 iKZ8A5GjFOAolowthup ynIM5NJCqAZWfjK01Xv 2uaRqgGs4eEWKjLDB1P CSfwAHyB3KdvM7mHuDr TASwRJCqS3LfxMSkEFu tJ726BJmvGqA3GYBuyv UcW8ZvQENlkDnkYdE5a 1C9Ot5SFZLwPW59FQO4 uRU3MF03DA46K3BoXbq vdGFibGU+PHRhYmxlIH dpZHRoPScxMDAlJyBzd UefVA2pIb2iZIVyUUNm mKzepMVgQuHkg0raEVH qNNurAH9ccJehP2WooM Q9WOSmm6w6Jx33S75pQ 3JvdXA+XBAouYE8yNP4 sC9pIlBcCoY8AVxjE06 5JyRyxOKsFkbyx9ogk3 kacNt4AsJ4BOQbhsJze PbpMQU8r2HpDo79D91a IHdpZHRoPSIxNSUiIHZ ynLlyls4rpA6sSr3+PG TeqXK8iFY8jO8wLwJeZ eQ3UEuxO177UqDnqCWi Mpptn7ycl3ikhGe8JwS uTOPftwDgtOcoZIO8d1 DoLi86B0OdrAboj3ZoW kk2yq67lLSey6C5hVU8 E9WuSBWpvfqprNEpzJu cRX3sOVLdjgewPDIdzK 5mLDNeF9j3PuUmWwS2Q OstL7BqqnC3MTVboZXx RHnmXYD7X73ne3B0BPY wOVJnXDA5rVI0hQ8geC lnbjogbGVmdDsgdmVyd HzwJZvkHRgcV318GBSh fEotHHQsxM9uQYZnkAH qcEdlSU2wAEEspvnsHg oPSL1GDTIKZmqlQZtED HVWGZYUQY15YW31pHNv c1E1eVW8G4ZnCSUzewq hdwcmtRA9JIXmLMVrbR 03kPQlLWlyXs2vx9T2u 497SFSgVHSueQ64Fo0b yPdnEDCcgLOLiC8qkjn yt7edvnvcBpVjZBXaLB r5OJo2FBNzvTroGyMqR UR2PeE6CUN3gKXhsB4y nTxhthhnyI3sAyc+MTI tYTohXLb0BXehbHL+PH SxGSS9nEmiAKglGFHix P8dQIVsS1w7ShJlXbC0 BKaqS5JfLVWcchfaIn0 9yX9xPjRyZsG3LCejE8 XmonC7CEFwuRNmYRouV NQ2V24fd1T5VMXdVZKh AJD5jTX9xI2hsLwblci gbGVmdDsgdmVydGljYW zxHGjqI837USIfhWyeG yI2FUziUPMzMG72FQ57 zDYiu3P8mTS1I9PvYLW pcufgwxnpjDW8SAPyPT DxlQ91dJEgSDbqTr3aq 5J7g023GSKgGXYirF37 Gy4jgTcfHBQokEFTpN6 tmvkpi1jevefpAtBrGG NaPBo6RTp0NRIlnCuoC nChHQR9XwX7PFV3wZEf tG5ehFumbrvpjT6gXwr +FrIxANxyUX62XF21eM Ach4O3iKQ5N9IwRPBoj eymsckrqJK6VRTyHFIl zW65rIFiYJrxLu4ve4C 4w204ESBhUXSwhZ33Qi 9dpNutQNHdaSAUwP6dg igis2jhrgtuWvRcVQEo VPb3PSr8BOLttRlfVwV bSQG1SuF1CVY6oEOoaK 5gwFavxiotvO1qLwt+T 2U9rAZ6eKByvNlytLE+ IA89sm98I0RhVojzVwj 0BUTiBWI7sGK3eR5tOV PcGSpoy2Q9mMW1I1Wxd uYnnd0sy1meFFEpCSoi V71twYIyj7G3WVKrfHV 4MVSxnJbbIfHylY93Aa c+BEVmyBaly2KyOvdvs 2koo5rwiJb7MrNjWSFi vnBatSpyBKC4s3HlYp9 6P81yLCiuPTBdXZVoLJ AyPCHxsXhccg5txM5eC i8+FBDymEE1zEO8uD3i FtYoOjU0EUagK598CkU chQAyZrxqb7hiq8kdfN k8MlAqDDRtbiLenLdrW JW7g0VbDe04K9DltRer n6HcNbd8qg45wGSua0M 8qUR7P0VoHOAhakpawX NymGunWU7gYOJftzpkX YIbsK4lTJBiD2y8PoNs MtE3SDvyH0ZzahF2UNI skWJbIIIfjXKReS5giz ooe6hbqqlhEuRqMJSlM Yv0OIz9QCTqsIclKqWd HYT0MwM5SBM1jPIgwM6 qlGuxhlbavI8gKua+UG g0f3dcxIYtRU0iqVO6X S80QY32lLLqn3F9eYC2 V9VkTZQqcbifowdwbBG 6IIWfVURgbZ03Of6ozL qbTw7uOHEmFVG2GRTnn VCpN8MaiX7yZbTiCVMy CMHyU4NiaJVfWZreL78 3JGleUjZ9TGDftjBzO0 AlVKPayZvrAtH3m7N2T i0TTA83IW31CU95hCHg o3Y1nMH4O3JcRAZspbn pntwzgCR7VRQiXAAjeE 52Pz7qmVrsXb2qOJLqA MG2YUVssGDsZ0VcqS9l VjObEQHgTLWcY1SseMM yTGpbG626VDrbEuF0TK LbogZqX8IuZWMdyUniG xW3o5Y5Hw7VBa17FT86 ZV56zEEja9P9iFJ5H4D lKIUuzgzmmdxwvEI2TP CrJMEhvR79St7ojIzuB b0fPRVjZZF9GSTcnDDg P2EksH0bAiWmVPNnCRB aX5BqkRSjNBusI026BJ clTmA7RQFeucXyA1CtH YLrvZygRhQ0m6X8Ux9Y ABhkbol9Y0XsAhigoCM +SI42MIZyLD74wBSaoN Ubi7uacUc9ThEcURIaK ZM7mMhmZAtkv5OrZATa Y29s (more content not included)... Normal [facility] CT Chest w/ Contraston 10-29 CT [...] Contrast amount in ml's: 100 Normal [facility] Coding Summary.on 10-28-2020 Coding Summary. CD:[id number] KWp6eZr+PGhlYWQ+PE1 CRWRtC36voKDrjI3LY4 gTET2ZYZDEMZMPVM1UC S2kaSJ5NKjiS6KqnoZg TsnyjRYaNS87GCv7QXZ 7sJpmDMxulQ6lzZFpQ5 r6ZkZvKH34dD68AUoxA DCoCmB8CoJxcgrciKZd F8gbGbDlkSJdGgw+PHR hYmxlIHdpZHRoPScxMD WeBpLatTcwYE5mRq6gE GVyLWNvbGxhcHNlOiBj v5fdVTGbAJphJD4ahJz cH7HpqIP5PPDgs0l0Pd 48dHI+NWUwSCA7fUtgK Rdpd346LdYno4sqKGQ9 qFJgQLzyGVV6G26rt5F 8COBeBPSxAID3bXB1zL 7utSfqqilgK6IscHVaT tD2JAX0nSWohE4dxMes dadsjV8oIbx+S24ASH2 KWCSWPN3LQxw6U9OqUw wvdHI+BY13AXLxKQ11l GWzhJRfl4nadMw4VpPq GNKnOKG7eSmyJLhjv6N tMIHxL32vqAExf9W8YH NxhWwfmDQlUfHmrHQ1u G4lCXzntauan7dbaghq Ngaaf9mvwk59nB02A18 vGSycXXSnBIN6YAIdDB TfeQgjni0rdL7mRv8+I Jjic7swc6gkoCv1LrSc UBCmdxMimFrmUMV4h0N jWt88J7BhfZuct9XxEk a6ak44rODfv6L5zFE7A LuzHVIfpZ3qICcvVnV0 YFYpLuZevQ66xWJjWRb hYt0tdImpkQtjWP9eRA MyzqgrQTTwpW5yITUgf GWtzAaaER1vZBFqtmdz l621WfSiMNS1KEEmoBY nW2CcbU4kUyXfOVQqOL LtU9HyhANwHDsyB090C JctAjP9WHRvhxVfC5Nl QDBifBejDtE8c1D9Wg7 Ml4FfwaycXTE2KPqkRB K6RqGnFnUcPbD9M8RbG ms7TLTfnPkmJX8bJ4Cy ZWJgtxvcqtxgbHV1WEE zUJPcmL86uTDzBAbxEk 1ps6V9q534BNOzQCJuv E90Ql9esIbtKYHhoHFR xI6cjouvo8ycbuzvHcH vLYUnWYl6OCj0LQLqkM saBvPxFRQ1YfZ6XTH5m PZluF9xoInwfohxoX8r Oyc+Y70ahP4xTWI6BRZ 6ymciAMHoxyCkRX04FL 15A6MiYxlhiUSebZU+P YJhaqQlzUdxSL8wHwPr a8oco9CzISdzI5RqXND tARcwSgx0GNZwEZL3jJ H3sL6oIQVkMMtwj2Y4s CB6K2QzhuOlqb0te8to IORsOJpmP57blLApc5Z 0SYZysYJ8YPGimDcsJk FidM98Cuv+PGNvbGdyb 2GySubgr8vxu0yhgLk7 IjMwJSIgdmFsaWduPSJ 8r3SvKt49V76vFMemSD RoPSIxNSUiIHZhbGlnb c2doI4gYh5+PGNvbCB3 jMS2eG2oRJPzQtE5RAr kY344UjPhoJTjImbdk3 uzv7hfwZc1XkHzZQLng oJcbUrwYGG1f4WqWl79 A50sOGvpXPFxPYDyDAW rSINelPsgml9rpP5eJe 8+CC0ea2gbjc62eG36n HI+TBFgUGB8bTtmJNrn UHFglX1gMBbrEdH6QBN iSeNtwW02iYNmBJthVg 5tjFwalVyjZL7xBSXdt ucoh020XtPzw2tnLOWu wGMkMIcgKGD2C48cn1P 0PFRrRUGlZYT5xHO4hI 1hbGlnbjogbGVmdDsgd cDyrNesZAmrVYamD122 IHRvcDsnPlBhdGllbnQ dCpZuQMt4M7ScGce3XO IpvTrjNR6wnZEyTVfbN j4cwMrvgVmqCE3dGWCd leizr571ItGhk2zeKRB mzEMfNRbkOGA6M13fz3 C0VCZxCAVoZFA3xMX3a U6ryPzpuyqwaGBxnObr ezBidLphLMkpKQqlL69 6IHRvcDsnPkJpcnRoIE SahYB3HB91PK39cYZpg 7Z3nKR1S0GzDTAyktgy hwarzEL0XMDwYKIymG1 4Or0nhFzeIa9kQWAuXW D3VBPkbYMaX8DuoE0nU gQxYXEdLHLgK4CwmHIc VPsnW441FWqaVwQ6WDH vvzOdV0LnPPAjqDoyBo H6g3S7Kr6FL1T8GP31C N69wXZwq8S9nQV4B8Pj ULNkitbysaqrxLR7HKG oNDEfzN41Hz5udSprAb 8cVYZmKWG9ZLKixDLgK 5VvzW3dDbUhRLSpBWZf I3EvrWLdKRehE984EYc lLxM4SBXifxApD8OoGV GocYfdWjE3c9Z4Cr9II Gt0GF89SL82vQGwl1D4 gTL1T8ZqQVKibrxnzun ioIT5NLUiIUDyvP20Ik 8elEpqDi7aAWPpXDP6R XFkrVIeA2CjuA0vAhDh CPVnVOKzQ0EnwBLkSGq sG223RNdcZnV1DCExqe UjE3DsGXYycInyUcK9y 2F8Cg4BRRXbVU62JVL0 aOB5TY90RR65S6IeAwm vdGFibGU+PHRhYmxlIH dpZHRoPScxMDAlJyBzd PthCG5uPw3wEBVwAFPl tHtfpKPlSrUzk2emKQA vXJmmOH3uaVivZ2KsaE S7FEMis6u3Uy73G44bQ 3JvdXA+OGOklKT2xAC7 yD0zUtFjPdC9XBvgF69 5NiYrjFJaHjxcm8bxt4 pdaHu7EvC1WTErlzQzw FztQFL0e4XyEz84Q33s IHdpZHRoPSIxNSUiIHZ qbJneru7nhE2sBt4+PG VmiPH9hKH5zO7sCmXdR cS3XArqY928TfHnzCZo Nyiba9ayi3siuGh1EkZ eNXUpcxPnwPamBJM7e7 KpXw22Y8HuyRsbz2WoD su2ph43fDEin6V5hXV7 D9KoBQLwrzptpIDdcOm tBA6tPAPwzphbEQMjvA 5pRQRpS8h4JlPzSsQ7M FyrY3WwuxC7CPHdzYZc SKjjUQI5S37ya3P5RXG nEPXqYEB0pQE2fZ5baL lnbjogbGVmdDsgdmVyd LukTIbxLUinO951AVFn gMjxSJYyvE6xIKBtyXG kwBqwHF1tXGVhbxyeRz mDGW6ADTVWDnfjKPuAS EGKMKMECC78EM10fZJx u5B8iZT7R5BsYVIzuci dylbycPV3ZYZzNUWtbY 34eBJtYCkqCw7vl5O5d 269QNKoVCVqoX29Kw9b iNilGXGivJUNqA8fqvj ry2thxfbtWtSvGLWoTX w9LGo3WLZcoJxnGqUbM VV3RqI2QED8vJFujR2a vSqqvinrpA6wTdm+MTI oTYmfAVl9LSpfvZU+PH RrTVR4vVbxYBnzWOWps L9cKIJlD4t3ZiOlGiB2 QXqkY0HiDOTcbbzqRw5 9qG0wPkUuTlI9XKhyE7 XaqwS6VJTdbHMlTMptP TQ1I73ed3U1KFUhEINt QIJ2lHW7uR0olBzmxdg gbGVmdDsgdmVydGljYW wsCWdzR611SXInyQqsW yV6HLhoZQLpUM06DY36 hLEnv7I3pSI4D5RuUEN faiqbqzvedZK2EGEiVL QgbC68jKVjQYduUb6cu 6H3l259MUBcQKSzuG15 By2oySxzQNCmrCPNaY8 vmeoog1matktxZtWbKD HhPQf0TIk9RNSkdRvyJ jXsJEK0YqO3NTW7iNNw xA9wjYjukvucuT2cXgg +IwAuKXqhTO69HB96qO Hxz0V5jEW0B0HlKLWhp uwtxjdhkTP4YAUvWDGb gA10oCSnHIdlMo3rg1P 3r596TMFcHKCjyA88Cm 4gvVvpAIEppHCFdB2we vtwp5coklffDrXjDKRe CYl3AUp9OPVtgWarXyL fMET3SjN1FXH9aVPcfD 9frWcexnnicQ7fXyg+T 9E0bTH8uIWagGarqRI+ NF14rt67U3JsDjqeHia 1HISfVKQ8iLV9wD2dLH XwOLjzf3F4aWU7Y7Kbu gBjrt5df5nmGZOqLTel O34kvBKem8G8DHPgjAF 1PLWsfRsdCwWoiD05Ja c+AOJlwXffm2NqHprfp 6gsn1zdwWk2VaZdDAYu hcUgjIeyCSB0u7YzWn9 0Z39oOUlkSIVkTUHzZC WyYGYavMcolk0vjD2zE i8+GCBqlPQ0qXQ2vB3l OjZwCqY7KWtuX991CnL jwHLdGiqem3gdi5lxgB i3XoZpJXQugpKllWtlJ HT8y2WfZa55S9BviAgz d3DaDrb8eo26uVGpb3L 6iVS1P3StEKCmlpipdM SupHlaCC5iSRHfoftfN MNooF8jINUjO1a6OoEv ArA4GJyxI4EqrnK9DIG rfOOjFCJqjOLUnP6hpg glp0vzgdbzBdWyCEIfU Tb4KTy3WVVuvAhkKcRp KNR8BzG2HUA2uZNugN6 shWdkwuniqX6wNgm+UG x0y9dbwNVuHX1zmOJ6V H03OO43tUQka1N8zCY0 O2JiZJUodknmdhnwpIN 1XMKvFWEgvX98Qo5wqD btCx7vPJFfKBM1TFEao TVvD3PwbW2kDcNqIKCr RFIuQ5FazHNpHFnbB49 7ZBdvFbY6DBWnvlIdW0 BqLAJcgCgxFcB1g5O5A t0PSX54GM96WZ02vEQz u3X5hGC1Z8JmPQPwrgp smvlyeAL4OOBxSNKlwT 65Yj3jkDeiAa3oLFTwW DF5OCNczKWxR1QhcG1z GlKjPWNfDLHlY5MubFB cJPvdD309RNqaHxN7LN MpfaLbH8VnUCOjuHkqF rX3g1T1Eu3TQz29JS61 BG35yXKty4M3aWG0K7A yVMCusxgfpskvvID9BB QwETBmaA42Mi0yvSkvL d0zEKPyKRT4JTSzwEQv B7GeyC7wMjYvJAZuMOV tP7DupZYxSAtmP604WP laPaM6GIVsgdSaM0JdX QCllFfrMyS9n0W5Ch1X ORszbab2F1QiPvbbbAV +DJ41EGWcOI42vYDlzM Gmd9xbnCs6IrBcQQRdP TP6lOynRUnnl8EbXLCn Y29s (more content not included)... Normal [facility] Consent for Treatmenton Consent for Treatment [id number] 44#1.00CD:127 [facility] Physician Orderon 10-21-2020 Physician Order [id number] B8#1.00CD:127 [facility] Consent for Treatmenton Consent for Treatment [id number] B4#1.00CD:127 [facility] Physician Orderon 10-19-2020 Physician Order [id number]#1.00CD:127 [facility] XR Chest 2 Viewson XR Chest [...] Ball M.D. Transcribed by: SHAYNA Technologist: BECKI [facility] Vital Signs Date Time Vital Sign Value Performing Clinician Facility 07-26-2023 11:27-0500 Body height 170.2 cm Kaitlyn Jasso MD Work Phone: [facility] 06-12-2023 13:00-0500 Body height 170.18 cm Shun Hill Other [facility] Other 06-12-2023 13:00-0500 Body mass index (BMI) [Ratio] 35.24 kg/m2 Shun Hill Other [facility] Other 06-12-2023 13:00-0500 Body weight 102.06 kg Shun Hill Other [facility] Other 03-15-2023 12:29-0400 Diastolic blood pressure 89 mm[Hg] DO Irma Burt Work Phone: [facility] 03-15-2023 12:29-0400 Heart rate 70 /min DO Irma Burt Work Phone: [facility] 03-15-2023 12:29-0400 Respiratory rate 16 /min DO Irma Burt Work Phone: [facility] 03-15-2023 12:29-0400 SaO2% (BldA) [Mass fraction] 100 % DO Irma Burt Work Phone: [facility] 03-15-2023 12:29-0400 Systolic blood pressure 132 mm[Hg] DO Irma Burt Work Phone: [facility] 03-15-2023 08:54-0400 Body height 170.18 cm DO Irma Burt Work Phone: [facility] 03-15-2023 08:54-0400 Body weight 90.71 kg DO Irma Burt Work Phone: [facility] 02-08-2023 14:45-0400 Body height 170.18 cm Shun Hill Other [facility] Other 02-08-2023 14:45-0400 Body mass index (BMI) [Ratio] 34.92 kg/m2 Shun Liz Other [facility] Other 02-08-2023 14:45-0400 Body weight 101.15 kg Shun Liz Other [facility] Other 02-08-2023 14:45-0400 Diastolic blood pressure 80 mm[Hg] Shun Liz Other [facility] Other 02-08-2023 14:45-0400 Systolic blood pressure 131 mm[Hg] Shun Liz Other [facility] Other 01-16-2023 10:35-0400 Body height 170.18 cm Aydee Hearn Other [facility] Other 01-16-2023 10:35-0400 Body mass index (BMI) [Ratio] 35.2 kg/m2 Aydee Hearn Other [facility] Other 01-16-2023 10:35-0400 Body temperature 98.3 [degF] Aydee Hearn Other [facility] Other 01-16-2023 10:35-0400 Body weight 101.97 kg Aydee Nadiya Other [facility] Other 01-16-2023 10:35-0400 Diastolic blood pressure 66 mm[Hg] Aydee Nadiya Other [facility] Other 01-16-2023 10:35-0400 Respiratory rate 18 /min Adyee Nadiya Other [facility] Other 01-16-2023 10:35-0400 SaO2% (BldA) [Mass fraction] 98 % Aydee Nadiya Other [facility] Other 01-16-2023 10:35-0400 Systolic blood pressure 105 mm[Hg] Aydee Nadiya Other [facility] Other 09-23-2022 10:45-0400 Body height 170.18 cm Aydee Nadiya Other [facility] Other 09-23-2022 10:45-0400 Body mass index (BMI) [Ratio] 35.13 kg/m2 Aydee Nadiya Other [facility] Other 09-23-2022 10:45-0400 Body temperature 99.2 [degF] Aydee Nadiya Other [facility] Other 09-23-2022 10:45-0400 Body weight 101.74 kg Aydee Nadiya Other [facility] Other 09-23-2022 10:45-0400 Diastolic blood pressure 80 mm[Hg] Aydee Nadiya Other [facility] Other 09-23-2022 10:45-0400 Respiratory rate 18 /min Aydee Nadiya Other [facility] Other 09-23-2022 10:45-0400 SaO2% (BldA) [Mass fraction] 98 % Aydee Hearn Other [facility] Other 09-23-2022 10:45-0400 Systolic blood pressure 125 mm[Hg] Aydee Hearn Other [facility] Other 09-04-2022 11:20-0400 Body height 170.18 cm Aydee eHarn Other [facility] Other 09-04-2022 11:20-0400 Body mass index (BMI) [Ratio] 31.32 kg/m2 Aydee Hearn Other [facility] Other 09-04-2022 11:20-0400 Body temperature 97.8 [degF] Aydee Hearn Other [facility] Other 09-04-2022 11:20-0400 Body weight 90.72 kg Aydee Hearn Other [facility] Other 09-04-2022 11:20-0400 Respiratory rate 18 /min Aydee Hearn Other [facility] Other 09-04-2022 11:20-0400 SaO2% (BldA) [Mass fraction] 99 % Aydee Hearn Other [facility] Other Encounters Encounter Date Encounter Type Care Provider Facility Start: 10-22-2023 ambulatory KAITLYN JASSO [facility] Start: 10-22-2023 End: 10-22-2023 ambulatory SAGAR BUTLER [facility] Start: 10-09-2023 End: 10-09-2023 ambulatory IRMA YI Not Available Start: 10-01-2023 End: 10-01-[address] [facility] Start: 09-20-2023 End: 09-21-2023 ambulatory [facility] Start: 09-18-2023 End: 09-18-2023 ambulatory SAGAR LUKE Not Available Start: 09-17-2023 End: 09-17-2023 ambulatory SAGAR R LUKE [facility] Start: 09-17-2023 End: 09-17-2023 ambulatory [facility] Start: 08-31-2023 End: 09-04-2023 ambulatory FROYLAN Rascon [facility] Start: 08-15-2023 End: 08-15-2023 ambulatory IRMA YI Not Available Start: 07-26-2023 Chart abstracting Kaitlyn Jasso MD Work Phone: [facility] Start: 07-18-2023 End: 07-18-2023 ambulatory SAGAR LUKE Not Available Start: 06-20-2023 End: 06-20-2023 ambulatory Shun Hill Other [facility] Other Start: 06-20-2023 Telephone encounter Shun infante [facility] Start: 06-19-2023 End: 06-19-2023 ambulatory SAGAR LUKE Not Available Start: 06-12-2023 End: 06-12-2023 ambulatory Shun Hill Other [facility] Other Start: 06-12-2023 Office outpatient vi sit 15 minutes Shun Hill [facility] Start: 05-01-2023 End: 05-01-2023 ambulatory Shun Hill Facility:[facility] Start: 05-01-2023 End: 05-01-2023 ambulatory DO Irma Burt Work Phone: [facility] Work Phone: Start: 05-01-2023 End: 05-01-2023 Patient encounter procedure DO Irma Burt Work Phone: [facility] Work Phone: Start: 04-10-2023 End: 04-10-2023 ambulatory Shun Hill Facility:[facility] Start: 04-10-2023 End: 04-10-2023 ambulatory DO Irma Burt Work Phone: [facility] Work Phone: Start: 04-10-2023 End: 04-10-2023 Patient encounter procedure DO Irma Burt Work Phone: [facility] Work Phone: Start: 04-06-2023 End: 04-06-2023 ambulatory Shun Hill Other [facility] Other Start: 04-06-2023 Telephone encounter Shun infante [facility] Start: 03-20-2023 End: 03-20-2023 ambulatory Shun Hill Other [facility] Other Start: 03-20-2023 Telephone encounter Shun infante [facility] Start: 03-19-2023 End: 03-19-2023 ambulatory Shun Hill Other [facility] Other Start: 03-19-2023 Telephone encounter Shun infante [facility] Start: 03-15-2023 End: 03-15-2023 ambulatory Shun Hill Facility:[facility] Start: 03-15-2023 End: 03-15-2023 Admission to same day surgery center DO Irma Burt Work Phone: [facility] Work Phone: Start: 03-15-2023 End: 03-15-2023 ambulatory DO Irma Landrum Carmel Work Phone: [facility] Work Phone: Start: 02-26-2023 End: 02-26-2023 ambulatory Shun Hill Other [facility] Other Start: 02-26-2023 Telephone encounter Shun Alexialeojoselyn [facility] Start: 02-08-2023 End: 02-08-2023 ambulatory Shun Hill Other [facility] Other Start: 02-08-2023 Office outpatient ne w 45 minutes Shun Hill [facility] Start: 01-16-2023 End: 01-16-2023 ambulatory Aydee Nadiya Other [facility] Other Start: 01-16-2023 Office outpatient vi sit 15 minutes Aydee Nadiya [facility] Start: 09-23-2022 End: 09-23-2022 ambulatory Aydee Nadiya Other [facility] Other Start: 09-23-2022 Office outpatient vi sit 15 minutes Aydee Nadiya [facility] Start: 09-04-2022 End: 09-04-2022 ambulatory Aydee Nadiya Other [facility] Other Start: 09-04-2022 Nursing evaluation o f patient and report Aydee Nadiya [facility] Start: 07-12-2022 End: 07-12-2022 ambulatory Perla Yulisa Other [facility] Other Start: 07-12-2022 Office outpatient vi sit 5 minutes Perla Yulisa [facility] Start: 07-07-2022 End: 07-07-2022 ambulatory Aydee Nadiya Other [facility] Other Start: 07-07-2022 Encounter for other preprocedural examination Aydee Hearn [facility] Start: 07-07-2022 Nursing evaluation o f patient and report Aydee Hearn [facility] Start: 02-03-2022 End: 02-03-2022 ambulatory Maria Guadalupe Powers Other [facility] Other Start: 02-03-2022 Office outpatient vi sit 5 minutes Maria Guadalupe Powers [facility] Procedures Date Procedure Procedure Detail Performing Clinician Start: 05-25-2023 Assay of thyroid stimulating hormone tsh Not In System Ref Prov Start: 05-01-2023 Ultrasound elastogra phy of liver DO Irma Burt Work Phone: Start: 04-10-2023 CT of abdomen with contrast DO Irma Taverase Work Phone: Start: 03-15-2023 Colonoscopy DO Irma Kiet lassiter Work Phone: Start: 12-13-2022 HIV 1&2 AB/AG [...] Td Vaccines (3 - Td or Tdap) [facility] Start: 09-17-2023 End: 09-17-2023 Patient encounter procedure 09/17/2023 8:45 AM EDT Office Visit [facility] [address] [place] [id number] Kaitlyn Jasso MD [address] [place] [address] [facility] Start: 09-17-2023 End: 09-17-2023 Patient encounter procedure 09/17/2023 7:30 AM EDT Appointment [facility] [address] [place] [address] [facility] Start: 05-01-2023 [facility] Start: 03-15-2023 [facility] Start: 01-19-2023 COVID-19 Vaccine ( season) COVID-19 Vaccine () [facility] Start: 01-19-2023 Influenza vaccination Influenza Vacc ine [facility] Start: 12-30-2021 Adult BMI Screening Adult BMI Screen ing [facility] Start: 2006 Screening for malign ant neoplasm of cervix Pap Smear [facility] Start: 1997 Depression Screening Depression Scre ening [facility] Start: 1997 Tobacco Screening Tobacco Screening [facility] Immunizations Immunization Date Immunization Notes Care Provider Fa cility 02-03-2020 influenza virus vaccine, unspecified formulation Kaitlyn Jasso MD Work Phone: [facility] Payers Date Payer Category Payer Private Health Insurance [id number] 2023 Self-pay [id number] 2018 Private Health Insurance [employer] Joselyn ETNA POS II [id number] 2018-Present [phone] [address] [place] [address] [id number] 1985 Unknown [id number] 1985 Unknown [id number] 1985 Unknown [id number] [id number] .1259 1985 Unknown [id number] 2.16.840.1.974053.3.579.2 .1259 1985 Unknown [id number] 2.16.840.1.962262.3.579.2 .1259 1985 Unknown [id number] 2.16.840.1.636741.3.579.2 .1259 1985 Unknown [id number] 2.16.840.1.217795.3.579.2 .1286 1985 Unknown [id number] 2.16.840.1.686328.3.579.2 .1286 1985 Unknown [id number] 2.16.840.1.773990.3.579.2 .1286 1985 Unknown [id number] 2.16.840.1.928637.3.579.2 .1286 1985 Unknown [id number] 2.16.840.1.460191.3.579.2 .1286 1985 Unknown [id number] 2.16.840.1.796091.3.579.2 .1286 Medicaid [facility] [id number] Private Health Insurance [id number] [id number] Unknown [facility] [id number] Unknown [id number] 2.16.840.1.420791.3.579.2 .531 Unknown [id number] 2.16840.1.805509.3.579.2 .531 Unknown [id number] 2.16840.1.201085.3.579.2 .531 Social History Date Type Detail Facility Start: 06-30-2020 End: 07-26-2023 Sex Assigned At [facility] [employer] Other Start: 03-15-2023 End: 03-15-2023 Tobacco smoking status NHIS Ex-smoker (finding) [facility] Start: 1985 Sex Assigned At Female F [facility] Start: 11-17-2020 Tobacco smoking stat us NHIS Smokes tobacco daily [facility] History of tobacco use Tobacco U se Types Packs/Day Years Used Date Smoking Tobacco: Every Day Vaping/E-cigarettes Smokeless Tobacco: Never [facility] Start: 11-17-2020 Tobacco use and exposure Smokeless tobacco non-user [facility] Start: 07-26-2023 Alcohol intake Current drinke r of alcohol (finding) [facility] Start: 06-30-2020 End: 07-26-2023 History of Social function [facility] Childcare Unknown [facility] Start: 11-17-2020 Alcohol Comment social [facility] Start: 05-04-2023 [facility] Start: 1985 Sex Assigned At Not on file P [facility] Goals Date Patient Goal Desired Activity [...] Mayelin Pinto DO on 08/31/2023 11:23 AM [facility] 06-12-2023 Evaluation note Encounter Date Diagnosis Assessment Notes May, Diarrhea (ICD-10 - R19.7) Patient reports that she is about 7-8 weeks gestational Patient reports improvement on Creon with occasional flare Patient reports that she is taking a fiber supplement May, Fatty liver (ICD-10 - K76.0) Patient did have a FibroScan that indicates fatty liver and minimal scaring, this will be reviewed [facility] Other 11-17-2023 Evaluation note* Encounter Date Diagnosis Assessment Notes Treatment Notes Treatment Clinical Notes Mar, Exocrine pancreatic insufficiency (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) [facility] Other 10-31-2023 Evaluation note* Encounter Date Diagnosis Assessment Notes Treatment Notes Treatment Clinical Notes Feb, Alternating constipation and diarrhea (ICD-10 - R19.8) Feb, Fecal urgency (ICD-10 - R15.2) [facility] Other 10-30-2023 Evaluation note* Encounter Date Diagnosis Assessment Notes Treatment Notes Treatment Clinical Notes Feb, Alternating constipation and diarrhea (ICD-10 - R19.8) [facility] Encounter Date Diagnosis Assessment Notes Treatment Notes Treatment Clinical Notes Feb, Alternating constipation and diarrhea (ICD-10 - R19.8) [facility] Other 09-21-2023 Evaluation note* Encounter Date Diagnosis Assessment Notes Treatment Notes Treatment Clinical Notes Jan, Alternating constipation and diarrhea (ICD-10 - R19.8) WORSENING DIARRHEA AND CONSTIPATION OVER THE PAST YEAR. DOES HAVE SOME NOCTURNAL AWAKENINGS WITH THE DIARRHEA. CAN GO 4-5 DAYS WITH OUT A BOWEL MOVEMENT WHEN SHE IS CONSTIPATED. WILL ORDER IBS WORK UP WILL PROCEED WITH COLONOSCOPY [facility] Other 08-29-2023 Evaluation note* Encounter Date Diagnosis [...] no improvement in 2 to 3 days [facility] Other 2023 Evaluation note* Encounter Date Diagnosis [...] no improvement in 2 to 3 days [facility] Other 04-17-2023 Evaluation note* Encounter Date Diagnosis Assessment Notes Treatment Notes Treatment Clinical Notes Aug, Contact with and (suspected) exposure to other viral communicable diseases (ICD-10 - Z20.828) [facility] Other 02-22-2023 Evaluation note* Encounter Date Diagnosis Assessment Notes Treatment Notes Treatment Clinical Notes Jun, Contact with and (suspected) exposure to covid-19 (ICD-10 - Z20.822) [facility] Other 02-17-2023 Evaluation note* Encounter Date Diagnosis Assessment Notes Treatment Notes Treatment Clinical Notes Jun, Preoperative clearance (ICD-10 - Z01.818) [facility] Other 09-16-2022 Evaluation note* Encounter Date Diagnosis Assessment Notes Treatment Notes Treatment Clinical Notes Jan, Contact with and (suspected) exposure to covid-19 (ICD-10 - Z20.822) [facility] Other Evaluation note* Diagnosis Onset Date Resolution Status Diarrhea acute [facility] Work Phone: Evaluation noteNo InformationNort Respirics Other History general Narrative - Reported* Type Description Date Medical History ANXIETY AND DEPRESSION [facility] Other Hospital Discharge instructions Additional Instructions DISCHARGE [...] if you have any problems. -Office number [phone] Work Phone: InstructionsNot on filedocumented in this encounter [email or web address] SystemReason for visit NarrativeRED EQUINOX, ANTIGEN PROCEDURE TESTNoGalaDo Other Reason for visit NarrativeNEEDSNEGATIVE, RAPID COVID TEST FOR PROCEDURENoGalaDo Other Summary Purpose Family History No Family [...] section and content) DATE CREATED AUTHOR 08/24/2021 [facility] DATE CREATED AUTHOR AUTHOR'S ORGANIZ ATION 05/09/2023 [facility] DATE CREATED AUTHOR AUTHOR'S ORGANIZ ATION 09/22/2023 [facility] DATE CREATED AUTHOR AUTHOR'S ORGANIZ ATION 10/12/2023 [facility] DATE CREATED AUTHOR AUTHOR'S ORGANIZ ATION 10/23/2023 [facility] REASON FOR VISIT (unrecogniz ed section and [...] Active Shun Hill MD Attending Provider 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 [facility] [employer] provides no warranty or guarantee of the accuracy or completeness of information in this document.
[2023-10-26 08:48] LABS: Glucose Fasting 102 mg/dL (<95)
[2023-10-26 09:24] LABS: Glucose 1 Hour 219 mg/dL (<180)
[2023-10-26 11:36] LABS: Glucose 2 Hour 186 mg/dL (<155)
[2023-10-26 12:27] LABS: Glucose 3 Hour 134 mg/dL (<140)
== END 2023-10-26 07:15 | disposition home or self-care (01) ==
LOC: LAB 07:14
PROVIDERS: Visit Provider Obstetrics & Gynecology
DX: R73.09 Other abnormal glucose (principal)
CPT/HCPCS: 36415; 82951; 82952

== ENCOUNTER 2023-11-01 08:00 | Outpatient (OUT) | payer OTHER, SELFPAY ==
--- OUTSIDE RECORDS SUMMARY | 2023-11-01 08:04 | XMS_ITS | CCD ---
Author Organization [facility] Inform ion Partnership [facility] Care Team Providers Care Sales Clerk Supervisor Name Role Phone Maria Guadalupe Powers Unavailable NadiyaAydee anderson Unavailable Perla Márquez Unavailable Shun Hill Unavailable MD Shun Hill Attending Provider DO Irma Burt Primary Care Provider [phone] MD Shun Hill Attending Provider [phone] DO Iram Burt Primary Care Provider Shun Hill Admitting Unavailabl Irma Broussard Primary Care Unavailable Shun Hill Attending Unavailabl Shun Choudhury Attending Unavailabl Shun Choudhury Admitting Unavailabl Irma Broussard Primary Care Unavailable Shnu Hill Admitting Unavailabl Irma Broussard Primary Care [...] day for 10 day(s) Jul, Active amylase 681025 unt / lipase 45114 unt / protease 696201 unt delayed release oral capsule (3 sources) Start: 04-06-2023 take 2 capsules by mouth three times daily at mealtime Creon [id number] UNIT 2 capsules Orally three times a [...] 1 tablet by mouth twice daily Sutab 3200-300-004 MG 12 tablets the first dose the [...] 5 day(s) September, Not-Taking 84 hr estradiol 0.04119 mg/hr transdermal system (4 sources) Estrogen take [...] diseases Episodic Liveborn (1 source) Single liveborn , unspecified as to place of ; Translations: [Single liveborn , unspecified as to place of ] Onset: [...] RANDOM URINE PROTEIN 170 mg/L High <120 [facility] Comment on above: Performed By: #### U PCR #### [facility] ([id number]) [address] [address] U/PRO/PLUG STITCHER RATIO CALC 0.17 Normal <0.2 [facility] Comment on above: Result Comment: Neph rotic Syndrome is associated with ratios >3.5 Performed By: #### U PCR #### [facility] ([id number]) [address] [address] URINE CREATININE,RDM 98.06 mg/dL Normal [facility] Comment on above: Performed By: #### U PCR #### [facility] ([id number]) [address] [address] COMPLETE BLOOD COUNTon 09-16 Erythrocyte distribution width (RBC) [Ratio] 13.0 % Normal 11.5-15.0 [facility] Comment on above: Performed By: #### C BC, CMP, FEPR, 2532-0, 3084-1, TSHR, 2276-4, 2284-8, 2132-01 #### [facility] ([id number]) [address] [address] Hematocrit (Bld) [Volume fraction] 34.6 % Low 35-47 [facility] Comment on above: Performed By: #### C BC, CMP, FEPR, 2532-0, 3084-1, TSHR, 2276-4, 2284-8, 2132-01 #### [facility] ([id number]) [address] [address] Hemoglobin (Bld) [Mass/Vol] 11.9 g/dL Normal 11.7-15.5 [facility] Comment on above: Performed By: #### C BC, CMP, FEPR, 2532-0, 3084-1, TSHR, 2276-4, 2284-8, 2132-01 #### [facility] ([id number]) [address], [address] [place] [address] MCH (RBC) [Entitic mass] 30.9 pg Normal 27-34 [facility] Comment on above: Performed By: #### C BC, CMP, FEPR, 2532-0, 3084-1, TSHR, 2276-4, 2284-8, 2132-01 #### [facility] ([id number]) [address], [address] [place] [address] MCHC (RBC) [Mass/Vol] 34.4 g/dL Normal 32-36 [facility] Comment on above: Performed By: #### C BC, CMP, FEPR, 2532-0, 3084-1, TSHR, 2276-4, 4-8, 2132-01 #### [facility] ([id number]) [address], [address] [place] [address] MCV (RBC) [Entitic vol] 90 fL Normal 80-100 [facility] Comment on above: Performed By: #### C BC, CMP, FEPR, 2532-0, 3084-1, TSHR, 2276-4, 2284-8, 2132-01 #### [facility] ([id number]) [address], [address] [place] [address] Platelet mean volume (Bld) [Entitic vol] 9.4 fL Normal 7-12 [facility] Comment on above: Performed By: #### C BC, CMP, FEPR, 2532-0, 3084-1, TSHR, 2276-4, 2284-8, 2132-01 #### [facility] ([id number]) [address], [address] [place] [address] Platelets (Bld) [#/Vol] 181 10*3/uL Normal 150-450 [facility] Comment on above: Performed By: #### C BC, CMP, FEPR, 2532-0, 3084-1, TSHR, 2276-4, 2284-8, 2132-01 #### [facility] ([id number]) [address], [address] [place] [address] RBC COUNT 3.85 X10E12/L Normal 3.80-5.20 [facility] Comment on above: Performed By: #### C BC, CMP, FEPR, 2532-0, 3084-1, TSHR, 2276-4, 2284-8, 2132-01 #### [facility] ([id number]) [address], [address] [place] [address] WBC (Bld) [#/Vol] 11.3 10*3/uL High 4.0-11.0 [facility] Comment on above: Performed By: #### C BC, CMP, FEPR, 2532-0, 3084-1, TSHR, 2276-4, 2284-8, 2132-01 #### [facility] ([id number]) [address], [address] [place] [address] COMPREHENSIVE METABOLIC PANE Charles 09-17-2023 Albumin [Mass/Vol] 3.4 g/dL Normal 3.2-5.3 [facility] Comment on above: Performed By: #### C BC, CMP, FEPR, 2532-0, 3084-1, TSHR, 2276-4, 2284-8, 2132-01 #### [facility] ([id number]) [address], [address] [place] [address] ALP [Catalytic activity/Vol] 71 U/L Normal 39-130 [facility] Comment on above: Performed By: #### C BC, CMP, FEPR, 2532-0, 3084-1, TSHR, 2276-4, 2284-8, 2131-9 #### [facility] ([id number]) [address], [address] [place] [address] ALT [Catalytic activity/Vol] 11 U/L Normal 0-31 [facility] Comment on above: Performed By: #### C BC, CMP, FEPR, 2532-0, 3084-1, TSHR, 2276-4, 2284-8, 2131-9 #### [facility] ([id number]) [address], [address] [place] [address] Anion gap [Moles/Vol] 11 mmol/L Normal 5-15 [facility] Comment on above: Performed By: #### C BC, CMP, FEPR, 2532-0, 3084-1, TSHR, 2276-4, 2284-8, 2131- #### [facility] ([id number]) [address], [address] [place] [address] AST [Catalytic activity/Vol] 13 U/L Normal 0-41 [facility] Comment on above: Performed By: #### C BC, CMP, FEPR, 2532-0, 3084-1, TSHR, 2276-4, 2284-8, 2131- #### [facility] ([id number]) [address], [address] [place] [address] Bilirubin [Mass/Vol] 0.3 mg/dL Normal 0.3-1.2 [facility] Comment on above: Performed By: #### C BC, CMP, FEPR, 2532-0, 3084-1, TSHR, 2276-4, 2284-8, 2131-9 #### [facility] ([id number]) [address], [address] [place] [address] Calcium [Mass/Vol] 9.0 mg/dL Normal 8.5-10.5 [facility] Comment on above: Performed By: #### C BC, CMP, FEPR, 2532-0, 3084-1, TSHR, 2276-4, 2284-8, 2132-01 #### [facility] ([id number]) [address], [address] [place] [address] Chloride [Moles/Vol] 104 mmol/L Normal 98-109 [facility] Comment on above: Performed By: #### C BC, CMP, FEPR, 2532-0, 3084-1, TSHR, 2276-4, 2284-8, 2132-01 #### [facility] ([id number]) [address], [address] [place] [address] CO2 [Moles/Vol] 24 mmol/L Normal 22-32 [facility] Comment on above: Performed By: #### C BC, CMP, FEPR, 2532-0, 3084-1, TSHR, 2276-4, 2284-8, 2132-01 #### [facility] ([id number]) [address], [address] [place] [address] Creatinine [Mass/Vol] 0.46 mg/dL Normal 0.40-1.00 [facility] Comment on above: Result Comment: METH OD TRACEABLE TO IDMS STANDARD Performed By: #### C BC, CMP, FEPR, 2532-0, 3084-1, TSHR, 2276-4, 2284-8, 2132-01 #### [facility] ([id number]) [address], [address] [place] [address] eGFR (CKD-EPI) NON-RACE DEPENDENT >90 Normal >59 [facility] Comment on above: Result Comment: Reported eGFR is based on the CKD-EPI 2020 equation that does not use a race coefficient. Performed By: #### C BC, CMP, FEPR, 2532-0, 3084-1, TSHR, 2276-4, 2284-8, 2132-01 #### [facility] ([id number]) [address], [address] [place] [address] Glucose [Mass/Vol] 78 mg/dL Normal 65-99 [facility] Comment on above: Performed By: #### C BC, CMP, FEPR, 2532-0, 3084-1, TSHR, 2276-4, 2284-8, 2132-01 #### [facility] ([id number]) [address], [address] [place] [address] Potassium [Moles/Vol] 4.0 mmol/L Normal 3.5-5.0 [facility] Comment on above: Performed By: #### C BC, CMP, FEPR, 2532-0, 3084-1, TSHR, 2276-4, 2284-8, 2132-01 #### [facility] ([id number]) [address], [address] [place] [address] Protein [Mass/Vol] 6.5 g/dL Normal 6.0-8.0 [facility] Comment on above: Performed By: #### C BC, CMP, FEPR, 2532-0, 3084-1, TSHR, 2276-4, 2284-8, 2132-01 #### [facility] ([id number]) [address], [address] [place] [address] Sodium [Moles/Vol] 139 mmol/L Normal 134-146 [facility] Comment on above: Performed By: #### C BC, CMP, FEPR, 2532-0, 3084-1, TSHR, 2276-4, 2284-8, 2132-01 #### [facility] ([id number]) [address], [address] [place] [address] Urea nitrogen [Mass/Vol] 8 mg/dL Normal 5-23 [facility] Comment on above: Performed By: #### C BC, CMP, FEPR, 2532-0, 3084-1, TSHR, 2276-4, 2284-8, 2132-01 #### [facility] ([id number]) [address], [address] [place] [address] FERRITINon 09-17-2023 Ferritin [Mass/Vol] 11 ng/mL Normal 11-307 [facility] Comment on above: Performed By: #### C BC, CMP, FEPR, 2532-0, 3084-1, TSHR, 2276-4, 2284-8, 2132-01 #### [facility] ([id number]) [address], [address] [place] [address] Folate [Mass/Vol]on 09-17-19 24 FOLIC ACID 18.1 ng/mL Normal >5.8 [facility] Comment on above: Result Comment: NEW REFERENCE RANGE Performed By: #### C BC, CMP, FEPR, 2532-0, 3084-1, TSHR, 2276-4, 2284-8, 2132-01 #### [facility] ([id number]) [address], [address] [place] [address] IRON PROFILEon 09-17-2023 Iron [Mass/Vol] 52 ug/dL Normal 50-170 [facility] Comment on above: Performed By: #### C BC, CMP, FEPR, 2532-0, 3084-1, TSHR, 2276-4, 2284-8, 2132-01 #### [facility] ([id number]) [address], [address] [place] [address] IRON BINDING 580 ug/dL High 250-425 [facility] Comment on above: Performed By: #### C BC, CMP, FEPR, 2532-0, 3084-1, TSHR, 2276-4, 2284-8, 2132-01 #### [facility] ([id number]) [address], [address] [place] [address] IRON SATURATION 9 % SATURATION Low 15-50 [facility] Comment on above: Performed By: #### C BC, CMP, FEPR, 2532-0, 3084-1, TSHR, 2276-4, 2284-8, 2132-01 #### [facility] ([id number]) [address], [address] [place] [address] LDH [Catalytic activity/Vol] on 09-17-2023 LDH 124 U/L Normal 100-235 [facility] Comment on above: Performed By: #### C BC, CMP, FEPR, 2532-0, 3084-1, TSHR, 2276-4, 2284-8, 2132-01 #### [facility] ([id number]) [address], [address] [place] [address] Natriuretic peptide B [Mass/ Vol]on 09-17-2023 Natriuretic peptide B (Bld) [Mass/Vol] 66 pg/mL Normal <100.0 [facility] Comment on above: Performed By: #### C BC, CMP, FEPR, 2532-0, 3084-1, TSHR, 2276-4, 2284-8, 2132-01 #### [facility] ([id number]) [address], [address] [place] [address] TSH WITH REFLEXon 09-17-2023 TSH 0.78 uIU/mL Normal 0.49-4.67 [facility] Comment on above: Performed By: #### C BC, CMP, FEPR, 2532-0, 3084-1, TSHR, 2276-4, 2284-8, 2132-01 #### [facility] ([id number]) [address], [address] [place] [address] Thiamine (Bld) [Mass/Vol]on 09-17-2023 THIAMIN VITAMIN B1 See Below Normal [facility] Comment on above: Result Comment: NOTE [...] developed and its performance characteristics determined by [facility] [place] ([facility] It has not been cleared or approved by the FDA. [facility] is regulated under CLIA as qualified to perform high-complexity testing. This test is used for clinical purposes. It should not be regarded as investigational or for research. Test Performed By: [place] [address] Short Piece Handler: Colin Cisneros III, M.D. CLIA #[id number] Performed By: #### C BC, CMP, FEPR, 2532-0, 3084-1, TSHR, 2276-4, 2284-8, 2132-01 #### [facility] ([id number]) [address] [place] [address], [address] [address] URIC ACIDon 09-17-2023 Urate [Mass/Vol] 5.1 mg/dL Normal 2.6-7.2 [facility] Comment on above: Performed By: #### C BC, CMP, FEPR, 2532-0, 3084-1, TSHR, 2276-4, 2284-8, 9 #### [facility] ([id number]) [address] [place] [address], [facility] [address] [place] [address] VITAMIN B12on 09-17-2023 Cobalamin (Vitamin B12) [Mass/Vol] 185 pg/mL Normal 180-914 [facility] Comment on above: Performed By: #### C BC, CMP, FEPR, 2532-0, 3084-1, TSHR, 2276-4, 2284-8, 2132-9 #### [facility] ([id number]) [address] [place] [address] TSHon 05-25-2023 Thyroid Stimulating (3Rd Generation) Hormone/ Tsh 2.200 [facility] [employer] [facility] CT abdomen w conon 3 CT abdomen w con [facility] Main [place] [address] [place], [place] [address] CT Scan Report Signed Patient: Laura Alves MR#: [id number] 3 : 1985 Acct:[id number] Age/Sex: 37 / F ADM Date: 04/10/23 Loc: CT Room: Type: [facility] Attending Dr: Shun Hill MD Copies to: [...] Stan Owens M.D.04/10/2023 4:03 PM Dictation Location: [place] [address] Transcribed By: [facility] 04/10/23 0602 Dictated By: Stan Owens DO 04/10/23 1553 Signed By: 04/10/23 1603 Normal [facility] HCG ( test) IAjuan antonio d Ql (U)Ordered By: Shun Hill on 03-15-2023 HCG ( test) Ql (U) Negative [facility] HCG,Urineon 03-15-2023 Beta HCG ( test) Ql (U) Negative Normal [facility] Comment on above: Result Comment: PERF ORMED BY: [place] [id number] PATHOLOGIST [employer] SAWYER MARINA AYALA M.D. Performed By: #### U HCG #### [address] 03-15-2023 L Specimen: [id number] Received: 03/15/23 Status: BUSTER Gonsalezvanessa Num: [id number] Spec Type: Surgical Subm Dr: Shun Hill MD Tissues: A Colon Biopsy (SURVEILLANCE BX) Procedures: HE/2, Gross/Micro L4 Age/ Patient Sex Location Account Attending Physician Laura Alves 37/F [id number] Shun Hill MD SPEC NUM: [id number] RECD: 03/15/23 STATUS: [facility] NUM: [id number] SUMIT: 03/15/23 DR: Shun Hill MD ENTERED: [...] The microscopic examination confirms the diagnosis. Specimen: [id number] Received: 03/15/23 Status: BUSTER Sunshine Num: [id number] Spec Type: Surgical Subm Dr: Shun Hill MD Tissues: A Colon Biopsy (SURVEILLANCE BX) Procedures: HE/2, Gross/Micro L4 Patient: Laura Alves [id number] (Continued) Specimen: [id number] Received: 03/15/23 (Continued) Signed (signatur e on file) Winston Donis MD 03/16/23 1737 Specimen: [id number] Received: 03/15/23 Status: BUSTER Fuentes Num: [id number] Spec Type: Surgical Subm Dr: Shun Hill MD Tissues: A Colon Biopsy (SURVEILLANCE BX) Procedures: HE/2, Gross/Micro L4 Patient: Laura Alves [id number] (Continued) Specimen: Received: 03/15/23 (Continued) CPT Codes 29304 Specimen: Received: 03/15/23 Status: BUSTER Fuentes Num: [id number] Spec Type: Surgical Subm Dr: Shun Hill MD Tissues: A Colon Biopsy (SURVEILLANCE BX) Procedures: HE/2, Gross/Micro L4 Patient: Laura Alves [id number] (Continued) Signed (signatur e on file) Robbi-Tryel Donis MD 03/16/23 1737 [facility] SARS-CoV-2 (COVID-19) RNA NA A+probe Ql (Resp)on 01-16-2023 SARS-CoV-2 (COVID-19) RNA GEORGE+probe Ql (Unsp spec) Positive [email or web address] Other HIV 1&2 AB/AG Screen (P24 AG )on 12-13-2022 HIV 1&2 AB/AG Non-Reactive [facility] [employer] Hepatitis B surface antigeno n 12-13-2022 Hepatitis B Surface Antigen Negative [facility] [employer] No Panel InformationOrdered By: Rae Agudelo on 12-13-2022 [facility] Rubella IGG immune statuson 12-13-2022 Rubella immune IgG <0.90 NON IMMUNE [facility] Syphilis Total(Unknown Syphi lis Status)Ordered By: Rae Agudelo on 12-13-2022 Syphilis [facility]-Reactive [facility] COVID Quick Testingon 2022 Result Negative [email or web address] Other COVID Quick Testingon 2022 Result Negative [email or web address] Other COVID Quick Testingon 2022 Result Negative [email or web address] Other COVID Quick Testingon 2021 Result Negative [email or web address] Other Consent for Treatmenton 05-21 Consent for Treatment [id number]#1.00CD:127 [facility] Coding Summary.on 05-28-2021 Coding Summary. CD:[id number] RPb4xUc+PGhlYWQ+PE1 LGQBkO65vmELihS2XF6 nNZD4HSDAEVHVLPX9JG Y5fdJI3VLvoY8XexmCw CxwctNCxPC85JDj8NDA 2eAlwHKybiE6jhVLsC5 g2IuGwSJ16rJ12PAxlP MMnWsU0KyUxtdfnoJTp D2cbQcEdoOAfJvt+PHR hYmxlIHdpZHRoPScxMD YiJiHweEjjHL8gLf0vS GVyLWNvbGxhcHNlOiBj r4jyRJMhLUucHT8riZn iZ2WcuLL4QKQbs8u0Qq 48dHI+LDIgVDO1aIpgF Zhge310GwHdf9coVLI9 dNSgEZegTYH7C52oh4O 4JTBrPQGoSJR4bOU1lY 8epXbbcogrE7ZchMPrF mQ4WSD0hSVstB6mmAyq wigoqR0qRsl+L39POB9 YNZYTDX5AQfj4Z7XdWt wvdHI+TU82DQWrLC10j WLfqKRie0zrpKa5XrOa WXPqZJJ1kMnsTZixk7R lWXHoE72huTKko2Z1QU PwaAomtZMrMoUvxZP3t I2oNWmrqjfjh4kculmf Cjrtt5pqzj10fW65G71 lKEpqXHRqCHG1YEBjAH ZaxOjveq1akG4aLy7+I Wfxi0mae3ptuJu6FtEc YZThumQmoGtoRIF0v1W bTq40C9RivWrnb0GfRt z6yd67hNGer0L3wTD2P HjlUVJpvP7kECnvLiA1 HBCjYkUhsN75rWTuUSk zTb0rfEadrTofVR6hMV DyihmsJCShtX3fYDHub AJbfUdqBZ8iPNGgbzup w432FqNqMZR5JOBwbUT nU9XrzC3uZkDmEIDyHR WmU6TzbCBcAWtnM403H ItkFrE0EWLwanVgO1Ne SKTlyTgdZnP3t7D8Oy8 Dt0LmsuzsGIT2SSbmBE YxTlC6XyTeZlT5N2WxL fm9WRWddPjjVO9xY2Kq APSsxtbvkzratNQ0HPW lDYUuuY76pUUvNIcxVv 5kw8K6l914BHOaQPWnc X00Xl8evGokNHKvbFGH sF4qgvcth4aaktdnSgD rUUJlMRy6UAj7NOVfjW ezRjPyVXK2BxY4XUD8j IDfgY4avOdvzxhwpA9o Oyc+T22myH4lPRT9ODZ 8dwfpHVMhxgZlMM95DK 50Q3LeArqakQRblEK+P JUzsoWbjJfeGW8xCoHg e3ffe5LeDSitU7NuOQM gBUoeMig9ZXVlWTY8pF H6zJ3uVCRkSYjur2G8h RM0N8CyujMwqy2vm4gx SJSeBRmoK15hgGFiv1S 3LWSxaAB7BDKezBxdNt QxaK76Bgb+PGNvbGdyb 5FyYifyn0iyy5pocJp5 IjMwJSIgdmFsaWduPSJ 2a9KcHs33R47oHByjMU RoPSIxNSUiIHZhbGlnb g6sbZ7pHb6+PGNvbCB3 zBL1sO6gWGEyMzN2SGt dP546PtYuvLOiQzbxu2 nps1lmeTd1CnTzUNWlw lGxeWowDNP5r0UaAu17 S12gYObxMCXaJQYpHCQ fKNCfgMhqpi2hkE8hLo 8+GV1lz5ziih48oE36d HI+NDPxAEH9eWqxSAjt PTNdsW0yGSjjDeG2NWE gQlNvnN15wFSkINlgAo 4jqMyunXobEF9qSJBck qtls223VoCik1zzBTRs dCQpWPsuUEU0I03hh6Q 5GGAjIUHeJZB5wHR0xL 1hbGlnbjogbGVmdDsgd pSpvYxiRJynEEozI926 IHRvcDsnPlBhdGllbnQ mOhWcRZz2E0UqOkw8PP DpnMzrVE7wyJWuGMmqL y5ntEgesMhsZY6wCOZu sivqs562JuGde1mvTVB thEJnAHdsNIL3M14ei7 V3XSCtQVHjXQE6uGI3z G2ueAihdqlomWGkwRxn jnIugHyrFUchZVkoY81 6IHRvcDsnPkJpcnRoIE RllXG6DS20TE18tVKzy 2D7xOP7L4DtCSTzntfq vzqcuXU2KNVrCIRrcU9 6Ed9dqTatCm8dTCTiGK Y2QRZhiRIvY0MxxS5rU oRqKTToPRLkT7QokKTe ARbfE177RUevHwD1XRL yjyGoK9XdGAFgeDxhZz G0b7L5Je1NN5K1AS13M O43eFPch1F8sTC9M6Jn JXNjlpujacvowWU9QIY aZHTguN39Os3cdOudGw 7bAMJeOUZ6ZCLdfRVhJ 3ZzaU4vJiTsCTQoYKMt M5FetCAcRHxcW484TYd fOoF8ZHDvmzNiB5MiRJ MdpBplJmJ7u1D4Bq0RX Fw1ER61DH50lSJzg0I1 wIP8T4HfUZZixjulyau bzWF2VHCvLDDcjX25Lk 1fcQznUd6wPLRzWFD8B QRzaRIoZ1TjjS7uSaBa MSIzWNIwO9TnxMJlQYl dN101RCqbUpO8JHWtgi IaE1BgSNTvuCjgBpU3b 0B6Fk6YKPPzTF64UDS3 dES0XE49UC79Z0FfOzj vdGFibGU+PHRhYmxlIH dpZHRoPScxMDAlJyBzd FdvYV0wOw8zZKXwQHOm mUjgmPLjEjWwi0ukPVE wFUarQG0bhJjyK4QeyW N4TFNwk7k8Ci15L99kG 3JvdXA+HMXfkIT9oGR7 nZ2cDoLaRyD5OQpwS23 2CbMgiMEsTjkih6brs8 swiXi4TeC7JJBippAhx LwtQVM1q8BzDs53V44z IHdpZHRoPSIxNSUiIHZ diSxmod9gfK6nSd7+PG BgtKK4vAY0fC9sMyKqX rL8FGepJ642UxVlwTXu Tinei0vls7cdmDx0UvC zMUYdztHpnMpxOKE0n7 GxId56U4FzpOscr7LjN hv5da38kTYha8D4bDX5 P3XrRJZuygzpjPQnnSn mJU3sCTHofvprOURtgD 6aRRJpN8x8IjXmGpX6Y TnoU7EpenE0ATEfaZVq YMpdFTN9S91ne4X7AYF qGTRtTAJ6cMI2aT6tzX lnbjogbGVmdDsgdmVyd CzmHOevGWhvM110TWHk gBszFYTgfT5fYJZgfBW ajTmzCE6mLCDfipwgBo kJLF8BLOIHLidlOLuVM JQWJHTZXQ10KE83oSUr u3Z8vBR4M6VmGPJvddl mgsswoKU8HBTlGIFhmB 75dYGmLDwqJk8me8N2z 369SHSfEXAilY07Ji2m eYiiOBPtgJXBhU2gcal tg2vqkbwfZtKyEWAiUO g6UUl1VDEbnCagKjIuX EZ6WvW8RFH0oLEnfB7l yXngircwkP2sHjq+MTI uPKseMRy9NSmuvOH+PH FfZFK0oOfbLJpeOEJwl A9zWSUsO5l7FvSrRaK6 YCjnT4LeROXdhfmqKo1 6jQ4jIqWjClB5SXdjT9 SwlsF2SKRzeYGjCDplP DZ6D10de0V3AVLwLZLw DRY3bJX0zQ5qoVoebez gbGVmdDsgdmVydGljYW btGKzqE878ZTKveCfoE zC4EAlmPWShLB30QI07 mPDyl0N6rNV1C2WaDOU iyudeyjmygSK3PBBqHO JbaH42gBNrKTzlRw0yf 2D2c235UBIoCDPtpW44 Jq0xnBtqVVIvgWQVtP9 rxjnwz6cxbkngYxTcVJ QkHKe5XRc5UHNqvTmkM zTcEJM3EkF5XQS5tCIq hH6hwTvdjnomhB9iTwk +PmHwXPfpMK99KX45gH Trw8I1rGF6F1HhHYMsl kpzngbfcBS9JXWlOVFn eU28iGRmHRbiWm1wg8N 2p714BDUbNGDdiP83Jh 7fcEjwPWPcbEQEqL8tp nsmy7kbfmpvKiVgXXLo EHa0WWm8TSWbgZlsQtH eQBB1GfE7KKH6bVGmtR 2jpYoavsfggG4hEws+U rUknBCayI3aCM63QN67 Q0KeDtnguGTcbNY+PHR hYmxlIHdpZHRoPScxMD KyRyBgdHlrHQ8lPb1iB GVyLWNvbGxhcHNlOiBj e1wvRPDhPGlwEY7ckKu aS5WfxNP9ZBPck7e4Xn 99I73eX4OxyFZ+PGNvb FP5nXF2eA4yNdPjYtX9 SZzhD280XxCeqFVqXfy se9jka9lnqKw4TiXhGO GwsjTodZvmZFV8w4AlB z62U73zNUlxGUQgWJXl PQYqINLlvEmzzh9orF9 wIi8+UNTbhFP6jYU9lE 7lUlDmCgC3NBfzX712M pNbnEOoRuldF60hV0Me dXA+NKRmWsd8RWKbzRp cZQ3qvIToXWfoRc8aYA X0HwFlDnGeKUyjP7NwK FDuagkddlfywWF9XIDz YTPycJ68Gl9isIneHe4 tFTNfQYQ9XPYbqDDrW1 UtgK8rLxMcKECnVNCdB 1BuxTRuTZdjL020SHzc TdW6REPqssHgD4ZkAAZ lyZllKoJ2m8S7Kj7HkX jbrJDsEU4wLkGeBKi2S 3MdShu8MUMzhOztKX5v qFZuPIuoPf9meGxynCc hHA4qHISddbstc668Tr Kjq5iyCKZivHIxBPmmY BY0I84vy1M5IQWxOLNe XTY1uSV5rI5mqJrqcvr gbGVmdDsgdmVydGljYW xjKHdeS296GMOliKdzD ySLMot5A7YgAhh0TAMx xQuiAG4ppINpGTboHf8 auFcdiJenXP4cIOAsvv lon788KbUtv3adURFeg NKlPTclZVT5G53qc0Q6 UIXgOQJbWLL6wAA1dI7 hbGlnbjogbGVmdDsgdm SyyTohXDmvWRtiX352C RHrnKnjMk0IJso9X6Ad Hbj1RSHjeLfuAM8ofLI sXPuoGz3zkWbcwNxxOE 8wKDEtutegc311KiHjs 3xzSYNapLRgRZrfZDO0 L04ud5K6UVHnPRIcOIE 9nHP0sR1ukXmwhseegN VmdDsgdmVydGljYWwtY GlnX308QGHawVvqFePd eWVyOjwvdGQ+XA39yx5 0K0PkKaigMti9YMWfRC G1eMI6pQ8pQCRmUKtbz 0R1uTP3E2ZlozNgez5s b2xs (more content not included)... Normal [facility] Priority Order-Juan 2021 Priority Order-STAT Comment Invalid Interpretation Code [facility] Comment on above: Result Comment: Rece ived Performed at: [facility] [address] [facility] [place], [place] [id number] [facility] Mina Foxfran Performed By: #### S ARS-CoV-2, GEORGE, [id number] #### [facility] [address] [place] [address] SARS-CoV-2, NAAon 05-25-2021 SARS-CoV-2 (COVID-19) RNA GEORGE+probe Ql (Resp) Not detected Invalid Interpretation Code Not Detected [facility] Comment on above: Result Comment: This nucleic acid amplification test was developed and its performance characteristics determined by [employer]. Nucleic acid amplification tests include RT-PCR and [...] detected) result in this assay. Performed at: [facility] [id number] PhD Shalom Gonzalez Performed By: #### S ARS-CoV-2, GEORGE, [id number] #### [facility] [address] [place] [id number] Family Medicine Phone Visit - Telehealthon 05-22-2021 [...] 6 months ago. Has been using DayQuil jkln-hjr-vlvlwsw with moderate improvement. Review of Systems Fatigue: [...] only communication with the patient located at [address] [place] [phone], with no one else. If it is [...] Patient verbalized understanding Ordered: Rapid COVID Antigen ([facility]) Telephone Est 5 to 10 minutes [id number] 2. Fatigue (R53.83: Other fatigue) see above plan, rule out covid. Ordered: Rapid COVID Antigen ([facility]) Telephone Est 5 to 10 minutes 08756 3. BMI 27.0-27.9,adult (Z68.27: Body mass index [...] 1035F Telephone Est 5 to 10 minutes 92960 Follow-up With When Contact Information Irma Burt [...] Methamphetamines, Pre (more content not included)... Normal [facility] Comment on above: Result Comment: Elec tronically [...] height. This can be done either in [place]uvian ([place] or metric measurements. Note that charts are available to help you find your BMI quickly and easily without having to do these calculations yourself. To calculate your BMI in [place]uvian ([place] measurements, your health care provider will: [...] problems. ? BMI can be measured using Peruvian measurements or metric measurements. ? To interpret [...] 01/16/2005 Document Revised: 04/19/2018 Document Reviewed: 03/20/2018 [employer] Patient Education ? 2019 [employer]. [facility] Physician Orderon 04-27-2021 Physician Order [id number] 8#1.00CD:127 [facility] Coding Summary.on 11-04-2020 Coding Summary. CD:[id number] DCb0fPz+PGhlYWQ+PE1 YCEVvL55pkPQnnZ2VH1 zFNY8GQHMKXNSLBU5UQ C6jxAO6AJytO8QxusWa UxzdgEQnRP67MWg7FRH 4pRztPPgxvU2rlYJkK1 e3JjMlAV11rI25QJbiE BPdClO7VuJcucbmuTRy Q5zbHgJsuTOrBkd+PHR hYmxlIHdpZHRoPScxMD EfZjNvmHcsAX0uQp6vU GVyLWNvbGxhcHNlOiBj l9ahJRDxDJmtJS1juMt dB8MngZX4XVJdt9x8Mj 48dHI+XHXdGZG1gRaeH Mefg503MnXyt4ghLKY0 sDMsKAnlKZU8J20ct1W 1TAWlIKJsYQY5mKA3vD 4hvLbgxhnmZ8NajWZtL dD1LPF0wSWuvD1hrIzd ynaizN0eNqj+G32WJL5 NVFWOZA9ZZpf9Z6KiPf wvdHI+EF34TVLcTO09i RHshQCzs7zrjKu4KtNy VGRxFZH2vUhiZHuub0X nSOVbJ74ylUOap9X5HZ VuyWikuPIrPwFiySB4l W5uAQutozuun9soqrgq Hupxx3xjay54pQ45E04 dSGzvEMQdIDX9MOVwPP QsxOsfjh4xaU0wYm1+I Hikp9ojp8fkgWe5OiGa IPBmpvHbjJbzHCP9u2V yPj15L7FwyBhts3UsZg t7sk44bOUip2O4jHV3X FdwIRPsaE1wXOqdZwL7 DXTkMaUeaI87xHLnWZq qZd5gtJcbiQsnUY8xRQ WltuhmQUAfwX8bYKItr ERaaHwuJC5xJRBjsgri g956SdLhIXZ2GZAapAN iW8XsuG4kOjKvGCQoFV FgJ1JdoYOgRScxH484K PtzXbG7THTdsuImM3Px NACigDyrLxE4u2C0En3 Qn3LmapiiNDN1AOntBU T0QfK4EkYyVmL0I8NyT nt3DOZayQgvUD8gT3Nw ACMyihpljfpsdAK4GZM vDLZznE91yADbMSfaHr 0zh4I4p332BOTpAFTzb T81Kr8svEptASGihDIP sU7dpkxwh5yphuqfTdV fNONwYFk8LPz8IJYqsW xaJiKsJTL5CxX1YUD5q BMuyR7lyKotpkrdqV1p Oyc+U69gqO1pCVS2FGV 4kzjkUWQoaeUfOX76AY 26V3HhUexufMTmbNN+P CZbynRseTkqMW4uZgRo o4ivp4JmAVryG7XtIME pOOtdBhm6UMFoJST8wC R7tG0bZQWyUThmy5V3i PB7K2WxueShlc9it0kq OMWlVXnwF82esGRhc6K 2RPAzxLC2XNFekIhjUf GwrB80Sbt+PGNvbGdyb 7TuGyhli3apw5bqjQr4 IjMwJSIgdmFsaWduPSJ 3n2MsRw32W26mGJkhGZ RoPSIxNSUiIHZhbGlnb g7ksY4pCp4+PGNvbCB3 aDT5nT9wGEOxBrK0EXm zM642AkJmrORtBqjqk1 aqp1svqFw8ZzMeALUxk wUdzZudABV9y1YiRu34 V15oZLpjJASwTVNuSJB lAJDkhXqlmx8vcY1aTs 8+OJ3uq5nhll86pO10q HI+MOJpHPW2tQczRYfr UZTujM3hIEctKfK1TKQ tNfYmcQ95lFOyYMrzKs 7jtNksrPcwOR3yGTSkd lcxv395OaRab4zzHAVs uRGqRChbZWR5Z90ni8H 0KXKwECRyLWR2aSZ8sH 1hbGlnbjogbGVmdDsgd yNlgGuhEWxhLMjzR193 IHRvcDsnPlBhdGllbnQ wNoPbLSp1W5KlQsy3TZ ZeoOhfUM5gkYPeLKveB o5ueJxnyPbtNH6yUAYr sjbvc202PrUgi7sqUWN drQEmZOjoVHS0N67ly7 T7RKCaMTTcWSV9nCN6w I4ahPiluvncqRTdfHcq jeFadIxyRUikGYlxZ18 6IHRvcDsnPkJpcnRoIE ThpQJ3KS49JD30dVTkb 6U9oLH1U3MsOYHiinnu jbsmuUQ1GSMwUXHswH4 3Hr9glGqfTk7iZFTlQX Y1IGGhyFQgI7NfrW8gN uNyWXFvFLUnC9AdnWAu PLwhO582VAbvTiC8BSD qjgBtA4OrDFLcuOveMk L0c7Z2Fp0MM2T2OM76X S76jUOcb6I4bAP9J0Yo WDOztudzksbhsSI5XHF vLCJxjY88Gm3pcDzeIa 6dEFGfDZV1VTCzzIRoX 6LgaU8tXmQsBPNtVFMt M0JwtHQfXJjmK776HDz xRdC8ZLZpgtLlC1UuLZ JhbJpzDzL8z0C2Jt4NR Tw7BB25EE85aPIkm4R2 oKG3G9TzRKAebfscbch slQP9GBZeHNBiiD58Xl 9fwKprOs2aBBZnRSE6Z RDzeLXbA7WipK0rWhRm EHDmLGPwK6QzaNJbEXp fO250VYjrBiR7WFHmgj InZ4DtKJEycJewQeB6s 4Q3Ae8SKAIeKI63ULE2 xGU0UP25XK21U8LdRkm vdGFibGU+PHRhYmxlIH dpZHRoPScxMDAlJyBzd CfeRI1wDj4vUFNdOJDq wIhhgFOgVzWbb6tsCIR lRIwwPY3hvNybJ4OvfM H4GLNma8f3Xg79N37mF 3JvdXA+TXSfqUA6sGK4 cJ0oLgFuJtM2TFtsH13 5QkBldIPcBisbl5qok4 jwbAz9DbE1ZNSdqvPqn KusCNG9o6YdEa37R00h IHdpZHRoPSIxNSUiIHZ zdHxioz5eqA1tXy9+PG MpyRR7bCB4tZ5zYcCnM xP2NUusH390UsBtuMUx Xrapt9gsa9lpiTb2OmS aVCQzscEtaBvlDDC1v2 TfQw23U2AguCjaz3FwP jg2ma76dINdj7V4tDN6 O6NwBAOxaofezTKnjZt uWA7fZZNlitdpCEDhbJ 7wQLKqD1r1OqItGtG6D MkhA3OchyB8NUTrwKOj LMseGFI3Z56sk2V1UUE eMQWaKHR6nUW7bT1fdN lnbjogbGVmdDsgdmVyd VtgFOlfPQocJ093VFRp fHmmNFKkeO8wTQUxaUM rrQvjGB9sQVCvdpbzPu yVZO1ZZTDTQwlrYXtOD HZENCJNAA35WU51eROq e0H1lTO3P7YlZYFaaiy jpqbcoSO9RTAjQDIocR 15eZYyQYedCz3ge9L1p 910PRLdEVIqxG83Td1l sPoaONEvzFOPlK8mpcn rh0zxxhvoYoZlWSZfZR l9ZCp4XOKphCtbRzZcX QM5OnF6QQD5sQUajD9g gSsamufmzV6pWez+MTI dSOxtJXz1YJohaJF+PH ZkWNI9lAxiRQpkWWIlq V4tPYAjY0c6NoNaEyO8 RPeeF7KfECVmcovtDl9 5pX8xSlUrPcY9WHyqR7 WacxO1MZWkdPVkQKkfZ DZ9S21vw5D2SQJwVABm NGG5vGT6mP1riBvjbkt gbGVmdDsgdmVydGljYW weNKtpJ347ZZUlxXnwV hE6LTnpERRwXL35VS44 sTHfq5H2dFO7G5EyFNE qbmtmtusftNH1NGTaSX OivS65jGTcJJelSq4jq 2J8q379MRCfIZAnuU32 Vz6fwOteUZSzhTPKhO7 xijisa9lqfzkuNrBfPP UoGNm9NHw1LNCgqEvuE xMpEFR4EbX4NBX5mGEm kN3zgDypfjzayT8fWyp +FzBeROitKT04XH99xP Yzy9X2zCY8J8PeBOZsj maeghapkUL7HCEcUCFo zZ98ePMzLHkzKb0jy5N 7q550UNLgHCGcuR58Yw 8urFugXCKwbWULjT0yr webi9yszlfxCyUoNSOq VYu6MKf0PBDswDzxNxU oRCQ2OnX3PFW4nFXdtY 9sdQpboglbhS6cSuj+T 6A3pMR0cXBxsKbxdLJ+ CR37cj04M0XxZfkcNkw 9UTAeWTQ6pJJ1bB6gXH UgOQfpy8M0lQU8P1Hhs iJaim6ha4wzGEQrLPfw P46qyRZyl6R5PIZekKW 3QDXcaEflSoZnwS38Bl c+LZMxtDdmg3ApFgxwm 0cmh1plzHv0MvTtCSSk jsXzlQfsYXX4n7LjQj9 8X05iRKvaGWBzMXDyLI JvUDVmsRjskv4uzL2gF i8+VHErnSY0cRZ9lR4l OwBtKqK8GUddL409HjK xhDFcVldrz2oft4efoE q5HeFyUQKldaOpbHllK RP0d8VzBv13J6UhbSlw o7GcGmv4dr53nJTbn5X 5yTE8D2JxOPHgfafmwA QpsMftYR7eDAKpzxaeZ IJynD0zMRYcY4v2LxAt FdW7YCifX6SxqpV3PAW bmNPxVRJnuQCYiU3nfa ask4gmtrkpIaMoDKPnI Lm0HEg3OHZurEleUkAw XXA7AlY6GPX4aCTfpG6 efLcrruppsA1nUvr+UG e5o6nigJVvYZ2lmXE2Y X79ZY16zTIwj3F2pJP4 L6EkTCLgncwepsxprPT 7ITAbOBNdgF64Ih6jfM kcKy1kPZSxSYR9ZWUhh JQzD0TkyN3cLkAwIDRi MGFsC1GuwYAeHSgfC15 8TBpeKxC4XNPrduInT3 RnKIAhiOyvCsX6k6M4N w9JBR40DD32RB06gXAv a5N0wNZ1O5ZbJEZoxer hrndaeQF4TXSrUGZswC 21Ms7zmJtfCl9fRPNvH GE9SUMftZFrO8BvxO6n FiTyGPKkYMJsC4BpvGZ pEScmP921ZTduDaE5FG UyymSzP8QoRLBrqVgvP zR9t5E3Av4NSj79CM22 SW48fXKoh8D5rXQ6S6W mINUyxigkbcxzbXP3ET QdPFPpwX18Pe7ozEnwL n4gASAkLNH2PKPwjAKx W5YubQ1gTdInBRCxSVA tS3PdkTZwHHbrV496VH biAbW7BCUstbLiI4XxW ZWneMnfOrX4q9C5Ua5U QKmween4F4YcVqmdkZE +EN72VGXfJN03gPQetU Zcq1bbnDw6FwPkWNSfL MN4tQjhTPbzu6JvKDJh Y29s (more content not included)... Normal [facility] CT Chest w/ Contraston 10-29 CT Chest [...] Contrast amount in ml's: 100 Normal [facility] Coding Summary.on 10-28-2020 Coding Summary. CD:[id number] BTl9fTi+PGhlYWQ+PE1 DMSXoJ26rkBDmvX4FA3 aZNL7JWJWOHUGYKA9PT L8zzIZ3NQgaS6QhjbNm OkaywHYpVN57HNg2TGK 4nOnwZQqmaL4qkXLqE7 v0LaCvUM56sI94XWftB RSxKzI6SfCwijadkUOs J6spObGpaOJgWts+PHR hYmxlIHdpZHRoPScxMD PvUdJdsGswZE7cGr7bB GVyLWNvbGxhcHNlOiBj e7fzZXTxSPtbOZ8blUm tO0XnhEA9YJNcx9e2Wj 48dHI+LOXgVRS8tLtpO Wvjj670SwGyt3csYHF2 rTBdTIxiKVT2K47yi8A 7IVWkYGCxQPD7kJW2wW 0pwBexpmlnY7MfvWLeC mP9DMO3jJUwkD9qqZfq sfutaW8iAja+K31UZD5 GVJBZBU0OAhf1T5TkFe wvdHI+XT92YOTwAU77j WSztNOyh6ceqYy3XaAw TOFlNQR8aFusVMppr7U fZCXgF35myGAad3L8GY RrfZjopSJpYpXloWY9i B1bSGcrgfidz4nrikwv Autur9uzhq93tO39N08 vFUbdGTCoLWW7WJZrKK RkmSrtzv5crV2sWx6+I Xyba5zvh4vvsOu3IqVd ZADudwTmwMflZBO3g4F aXz72T1SgyDmxf8InOl e7kb82mBUxu9S4hOW8Y XuuPWVtuP9mREfxSmD2 QUMhQbNvsL58nILaONg yZl7deIzxoYesXB7sFH VlgxqtWQItiF1oVVNqi CIasFqdUI7lKVKulhuv t087FpUiLYZ6RMGlgAF pB2SisU5aGjRvKFUwMN LvS2ZjgYKcGLeeJ190N NpoLuZ3APMjvsCrS5Ul QIKztAreOlJ3m6R6Ro6 Tw2XfayiwVUM4IFopMA Z4DeFpRvUoRvC9A8YfJ ic0BIFpcYfhMH1pL7Ym RFQjedmrvlyujHQ7CFX lSJSklH68lTYwSCkaZa 3pm3S3c836LFIqZBSbd V20Zi4srRdyXEAnuTTZ lA5sgvhuz1emtmppThF qDLKqBLi8ZXm3JDVukI biYtXjNUC5BiQ7PKY4g DKqiB8ouItnxyowpM3q Oyc+K86stJ4aAZX8TLG 2juspYLUitrJlNU09EN 92V0ZvIqwhcOGsjGW+P NHrxaNppNjzGC4iStNx z4wry8ApCOxyU1ElVUA aKMeyIjl7FUVxYOL2bE O7lC3kQEDbECfle5H5p TQ2C1SfhgCfem5xc8lj HMNaBAtpF80eeQZpl2X 6ESAjvED4APYfwXfyAi CutM04Exa+PGNvbGdyb 2SkVyhhu8mzc7mujIj3 IjMwJSIgdmFsaWduPSJ 7k2ZcJx25X49eDGndQY RoPSIxNSUiIHZhbGlnb d8oyD4qLh6+PGNvbCB3 jBV5vE8oYCGrJxF2QVt xW450VqQsvFGsRpkbg2 wmz4bxwJe7TqHiAIPdd aTqfVbiZLV6g5HoGu05 T46nDTsjYZIhPYYdMEN jYKDqfVrzgi7ldE3bTt 8+QP0gh4ouho57rX35p HI+KHVrBHR7zFsoQHvl ZQHcgB3pEFxiZaW1KJJ aWzBdxQ10hPWhJYcsWk 9bjEoikGylJI6jZFXcg zabr573VeKxb2dnTYGb cCUtHEjoZIW2E85ek3R 4IDMlIQZvVVV3nNX3qO 1hbGlnbjogbGVmdDsgd uUnfPtxOCtfLMceQ730 IHRvcDsnPlBhdGllbnQ kAeVxUYb5P0ZkGnt6MC RgsKfdZA3lzYShUPayL c5ffVflcTvlAA8dTLUa nfseb434EvIza5vcJLI xmYNdFWvsAZT2C41da4 O0TYZfMJOnUQD0oSL9a X3udYjsjztkgCSjbEhu mnFtsHoeGCnyFCdsC17 6IHRvcDsnPkJpcnRoIE UatSH5KW86TD92qWBdq 6A2aZM3Q7ZmCXYyccbs kpakwRQ8PIReBKXxmI0 0Md9stMmlUy6wWIRkRK W2YLUkgXDtR9DtpJ8gJ lBjXFQaBPDhQ0PosOQn OVynW917NVtoLfQ8NRA lgmZbY8OrMUJapPnzIx Q8f5I5Iw9SA0T1DC56E V85cIZme4K0wHG0Y6Li YPPlftnxgitebXL9ZJC kYDMaeY03Hq2ngEmuEn 6zFXXgTEO8PJIxtPLaS 7MbnZ0tSzJbEOGwCLAf J9UkbGHqWQcfC499HHi oHbF6ECLpiwFcZ8NvNJ CxgYtpTwP0c3M3Iu5KU Tf7CU55OC08aMCnp3U4 vBC9K2UiCZGxmhallys lfJC7HYQhCIZwsP53Lo 0xnYziOy9iQKLlKWB2M PJowQSdW7LzyF1xKxRu HOZgCPStV5NhrDHkWEt aL700SCnyAbL5UIJmlb AjL5CwRPNxoJnsCeL7e 5Y8Xo4UWSIyYW79RXY8 iWA4XS93UD99V1CkSvs vdGFibGU+PHRhYmxlIH dpZHRoPScxMDAlJyBzd OgqRR1xJa0mBWIjAJMe tVgvfYNqFlMam4hnWCY eJFbnEX0zbQhlO2QuaC X4LTWkf0r4Gu56L59rF 3JvdXA+LFHbdRW2dPP6 iN2mGaVmFmP3GNiuT44 1VtWksJQuJnbfy4zej2 gvdZm5BuZ4TWZcbfOpu AnkVNQ5h5DyQk95F22w IHdpZHRoPSIxNSUiIHZ vnLdsvn9hrG3sLz9+PG XakJO5jFR2vN5pOaEvF hK0GLpkQ020RtGeuZAg Qkboh7eiw2dfoWe2VaT kQRXndmBagRbeQOM1e5 DcZp36F8SyoYnws6MhM en5nc71zBXhx4J3mPS1 Q9PlGHDbcmvnaNEfuXo zID0iGYZofnmnXCAbmA 6aHEDkG8k5ErWdHcV5F WpoC1RtwdX3XTPchHTe UPaqHNQ6M49ky9C7WKU cTFBvPWJ1qCE3xY3ebR lnbjogbGVmdDsgdmVyd YcwBXxjCOfqN615UOWn dUtdLLEosF2xFWNtjCU ctZiyAY5gSQBremiaFy gWFJ6TXFLVTmyfXXjKW QSVRQXLJC02TK49aXOy j4P5lFB2U1TuKPGuwxw ezggcnGP7CRReDLZgcQ 25aJBpIMabBn9xh2J0h 427XBFlYWZkzR75Mw1m rLwaADLiyMEDxK7jzec go3xhdsieAmAdLVWjUX g0HVt9GRJibLhgWeKxK HZ8VnJ2WDC8zLMxjX9t rEibzgodpA1dNll+MTI zHQsgWKp8ENamaNR+PH GfWSO4uDdgUTkqAQQpc K5eHGJuX3n6QzFxJjX9 EXvnW9GtQXZwmpvvAc4 4zY3aAmYhIjW4AKtuP5 MmbdB3HTTbdADfCVvwJ VQ6S18bi3Z3KFCvCXFw TMW4hOY8nS5fvBcllob gbGVmdDsgdmVydGljYW bvBWtcU080BFNtlBykQ gU0EBtlGUXbUP89GB86 nJSco0O4kRS6A1SlNQH dxjelbzpwcZP7JCSjVN TunF16yTCtZDjoGq7ri 5K8x011GGRzPYDzzK85 Cu2qeBxnYBEjbFPUzK6 gqntjx7ervateUlToRK GlKUk6WXg6QNYobFgbK iYsLGL7YbK4UBJ8dMQo cV1nmQlhqxojlY2xHpf +ClGhDMcjFL51FS28wJ Wsf4N3uJF5L2DmGLDsf lcevzfocNV7BQAoTPLu rX00aLMqZMroZi9wa8A 8b231JHWmGDXcqN89Dd 9ayLpkSSAynRUBoE1kd ljgq8mezmmcKkBcXPTp FBo7MNh3YJKsoHcvGeX rIEZ6WeR8MOS1pRRdfB 8nkLnmmcebpF4iSle+T 8X1nLI3fFOseKihuMM+ FZ24af16O8WcEhrvFxj 6BEVjDAD1hLO9sH6uCI YaJHtso7J6eKG2A3Bpq nHagc8bn0nrJCHeJFkp M76ezDNfj3Z9KXZxzIG 3FXDdpLmsGdFsfF42Iu c+XYYsyPxhn8RrEibad 4odn9xozAd5MnHjASYr anFnuCzkQFG9v9KrIm6 4J88yFPaoOZSbUMEtNH BiOJQpfBuikz9vrG8xH i8+CJXciTF2bBW7jI2i HzJmKeX0NDtcU018GfV rnRHvSwaaa7ckq5goiF u8ItCjJKWowvCbbInzC QY5n1IlVd74E9QvwKkh z2UfFru7pq54yQIqn0F 3oZM4J6XvEFVtpwgntB ZzoCkrOL2pYIYcbchvV GHfcF0aBASwR2t9NuIp PuY0SDyyI2DzfhV7NFP wfEJsCKJjfPYJpI9fjr ugm3fbmnhrVsHcCSPcO Xe0DGa0SIUhwFgdZbAh WTQ8CkR7HQY2hZHtrJ6 nfRwcqyrklT3hCod+UG j0d9gboJBrBZ4xhMV8F Y77DX18hLHuh7M5vTY3 J0AyALQzvcfpvmtywTW 5VYYiWEXujA57Im7ogR nbEu3vKDPrODA2DRFqa WTkK5KgoM3uIlWsCBAt QOFzK5SofKJiEYxkX21 3HCupZxC0FTXfvdYuC4 EjIOEcdFdvKuN8o9P6Q m4ENK01RG42QD58xVDt c1G1vKF2E2PfGLJehql ybgpbuMW8TRBaBATshL 77Ri1cvIbhAv6jKMGeK GS0ZGJakNNaR6MyeB7n FaSfLCRgLPKfN8DsmLJ aOPmsJ591XJzdUdK1DP AkydMjB9FiTIOnrKziU mR9g7R3Lr0OIl93YS73 FU67tLSgk8S7cLY0U8M iWPQogiwlplrtyFV1AV MfKANctM70Ad9qwItgI r9pWJMlCKB0PBLqfALs M9JwgA7xZnZzPMLhGSI sR1WuoSMqFQnaV485UO fpUiP6XWDhxaPpK8RuK RZscJevFlR3m0D3Vh0K HYdfvge4B8FfMuhfvON +FC21QEFpSY44sQHckJ Nph6ifcLc3PwXyWWQhA MC2pEhkQTyfx0LoVDRp Y29s (more content not included)... Normal [facility] Consent for Treatmenton Consent for Treatment [id number] 44#1.00CD:127 [facility] Physician Orderon 10-21-2020 Physician Order [id number] B8#1.00CD:127 [facility] Consent for Treatmenton Consent for Treatment [id number] B4#1.00CD:127 [facility] Physician Orderon 10-19-2020 Physician Order [id number] 446#1.00CD:127 [facility] XR Chest 2 [facility] XR Chest 2 [...] Ball M.D. Transcribed by: SHAYNA Technologist: BECKI [facility] Vital Signs Date Time Vital Sign Value Performing Clinician Facility 07-26-2023 11:27-0500 Body height 170.2 cm Kaitlyn Jasso MD Work Phone: [facility] 06-12-2023 13:00-0500 Body height 170.18 cm Shun Hill Other [facility] Other 06-12-2023 13:00-0500 Body mass index (BMI) [Ratio] 35.24 kg/m2 Shun Hill Other [facility] Other 06-12-2023 13:00-0500 Body weight 102.06 kg Shun Hill Other [facility] Other 03-15-2023 12:29-0400 Diastolic blood pressure 89 mm[Hg] DO Irma Burt Work Phone: [facility] 03-15-2023 12:29-0400 Heart rate 70 /min DO Irma Burt Work Phone: [facility] 03-15-2023 12:29-0400 Respiratory rate 16 /min DO Irma Burt Work Phone: [facility] 03-15-2023 12:29-0400 SaO2% (BldA) [Mass fraction] 100 % DO Irma Burt Work Phone: [facility] 03-15-2023 12:29-0400 Systolic blood pressure 132 mm[Hg] DO Irma Burt Work Phone: [facility] 03-15-2023 08:54-0400 Body height 170.18 cm DO Irma Burt Work Phone: [facility] 03-15-2023 08:54-0400 Body weight 90.71 kg DO Irma Burt Work Phone: [facility] 02-08-2023 14:45-0400 Body height 170.18 cm Shun Hill Other [facility] Other 02-08-2023 14:45-0400 Body mass index (BMI) [Ratio] 34.92 kg/m2 Shun Liz Other [facility] Other 02-08-2023 14:45-0400 Body weight 101.15 kg Shun Liz Other [facility] Other 02-08-2023 14:45-0400 Diastolic blood pressure 80 mm[Hg] Shun Liz Other [facility] Other 02-08-2023 14:45-0400 Systolic blood pressure 131 mm[Hg] Shun Liz Other [facility] Other 01-16-2023 10:35-0400 Body height 170.18 cm Aydee Hearn Other [facility] Other 01-16-2023 10:35-0400 Body mass index (BMI) [Ratio] 35.2 kg/m2 Aydee Hearn Other [facility] Other 01-16-2023 10:35-0400 Body temperature 98.3 [degF] Aydee Hearn Other [facility] Other 01-16-2023 10:35-0400 Body weight 101.97 kg Aydee Nadiya Other [facility] Other 01-16-2023 10:35-0400 Diastolic blood pressure 66 mm[Hg] Aydee Nadiya Other [facility] Other 01-16-2023 10:35-0400 Respiratory rate 18 /min Aydee Nadiya Other [facility] Other 01-16-2023 10:35-0400 SaO2% (BldA) [Mass fraction] 98 % Aydee Nadiya Other [facility] Other 01-16-2023 10:35-0400 Systolic blood pressure 105 mm[Hg] Aydee Nadiya Other [facility] Other 09-23-2022 10:45-0400 Body height 170.18 cm Aydee Nadiya Other [facility] Other 09-23-2022 10:45-0400 Body mass index (BMI) [Ratio] 35.13 kg/m2 Aydee Nadiya Other [facility] Other 09-23-2022 10:45-0400 Body temperature 99.2 [degF] Aydee Nadiya Other [facility] Other 09-23-2022 10:45-0400 Body weight 101.74 kg Aydee Nadiya Other [facility] Other 09-23-2022 10:45-0400 Diastolic blood pressure 80 mm[Hg] Aydee Nadiya Other [facility] Other 09-23-2022 10:45-0400 Respiratory rate 18 /min Aydee Nadiya Other [facility] Other 09-23-2022 10:45-0400 SaO2% (BldA) [Mass fraction] 98 % Aydee Hearn Other [facility] Other 09-23-2022 10:45-0400 Systolic blood pressure 125 mm[Hg] Aydee Hearn Other [facility] Other 09-04-2022 11:20-0400 Body height 170.18 cm Aydee Hearn Other [facility] Other 09-04-2022 11:20-0400 Body mass index (BMI) [Ratio] 31.32 kg/m2 Aydee Hearn Other [facility] Other 09-04-2022 11:20-0400 Body temperature 97.8 [degF] Aydee Hearn Other [facility] Other 09-04-2022 11:20-0400 Body weight 90.72 kg Aydee Hearn Other [facility] Other 09-04-2022 11:20-0400 Respiratory rate 18 /min Aydee Hearn Other [facility] Other 09-04-2022 11:20-0400 SaO2% (BldA) [Mass fraction] 99 % Aydee Hearn Other [facility] Other Encounters Encounter Date Encounter Type Care Provider Facility Start: 10-22-2023 End: 10-26-2023 ambulatory KAITLYN MICAH [facility] Start: 10-22-2023 End: 10-22-2023 [facility] Start: 10-09-2023 End: 10-09-2023 ambulatory IRMA YI Not Available Start: 10-01-2023 End: 10-01-2023 ambulatory CATHERINE GASPAR [facility] Start: 09-20-2023 End: 09-21-2023 ambulatory [facility] Start: 09-18-2023 End: 09-18-2023 ambulatory SAGAR LUKE Not Available Start: 09-17-2023 End: 09-17-2023 ambulatory SAGAR BUTLER [facility] Start: 09-17-2023 End: 09-17-2023 ambulatory [facility] Start: 08-31-2023 End: 09-04-2023 ambulatory FROYLAN RAMOS [facility] Start: 08-15-2023 End: 08-15-2023 ambulatory IRMA YI Not Available Start: 07-26-2023 Chart abstracting Kaitlyn Jasso MD Work Phone: [facility] Start: 07-18-2023 End: 07-18-2023 ambulatory SAGAR LUKE Not Available Start: 06-20-2023 End: 06-20-2023 ambulatory Shun Hill Other [facility] Other Start: 06-20-2023 Telephone encounter Shun infante [facility] Start: 06-19-2023 End: 06-19-2023 ambulatory SAGAR LUKE Not Available Start: 06-12-2023 End: 06-12-2023 ambulatory Shun Hill Other [facility] Other Start: 06-12-2023 Office outpatient vi sit 15 minutes Shun Hill [facility] Start: 05-01-2023 End: 05-01-2023 ambulatory Shun Hill Facility:[facility] Start: 05-01-2023 End: 05-01-2023 ambulatory DO Irma Burt Work Phone: [facility] Work Phone: Start: 05-01-2023 End: 05-01-2023 Patient encounter procedure DO Irma Burt Work Phone: [facility] Work Phone: Start: 04-10-2023 End: 04-10-2023 ambulatory Shun Hill Facility:[facility] Start: 04-10-2023 End: 04-10-2023 ambulatory DO Irma Taverase Work Phone: [facility] Work Phone: Start: 04-10-2023 End: 04-10-2023 Patient encounter procedure DO Irma Burt Work Phone: [facility] [place] Work Phone: Start: 04-06-2023 End: 04-06-2023 ambulatory Shun Hill Other [facility] Other Start: 04-06-2023 Telephone encounter Shun infante [facility] Start: 03-20-2023 End: 03-20-2023 ambulatory Shun Hill Other [facility] Other Start: 03-20-2023 Telephone encounter Shun infante [facility] Start: 03-19-2023 End: 03-19-2023 ambulatory Shun Hill Other [facility] Other Start: 03-19-2023 Telephone encounter Shun infante [facility] Start: 03-15-2023 End: 03-15-2023 ambulatory Shun Hill Facility:[facility] Start: 03-15-2023 End: 03-15-2023 Admission to same day surgery center DO Irma Burt Work Phone: [facility] Work Phone: Start: 03-15-2023 End: 03-15-2023 ambulatory DO Irma Burt Work Phone: [facility] Work Phone: Start: 02-26-2023 End: 02-26-2023 ambulatory Shun Hill Other [facility] Other Start: 02-26-2023 Telephone encounter Shun Moncada [facility] Start: 02-08-2023 End: 02-08-2023 ambulatory Shun Hill Other [facility] Other Start: 02-08-2023 Office outpatient ne w 45 minutes Shun Hill [facility] Start: 01-16-2023 End: 01-16-2023 ambulatory Aydee Nadiya Other [facility] Other Start: 01-16-2023 Office outpatient vi sit 15 minutes Aydee Nadiya [facility] Start: 09-23-2022 End: 09-23-2022 ambulatory Aydee Nadiya Other [facility] Other Start: 09-23-2022 Office outpatient vi sit 15 minutes Aydee Nadiya [facility] Start: 09-04-2022 End: 09-04-2022 ambulatory Aydee Nadiya Other [facility] Other Start: 09-04-2022 Nursing evaluation o f patient and report Aydee Nadiya [facility] Start: 07-12-2022 End: 07-12-2022 ambulatory Perla Márquez Other [facility] Other Start: 07-12-2022 Office outpatient vi sit 5 minutes Perladavid Márquez [facility] Start: 07-07-2022 End: 07-07-2022 ambulatory Aydee Nadiya Other [facility] Other Start: 07-07-2022 Encounter for other preprocedural examination Aydee Hearn [facility] Start: 07-07-2022 Nursing evaluation o f patient and report Aydee Hearn [facility] Start: 02-03-2022 End: 02-03-2022 ambulatory Maria Guadalupe Powers Other [facility] Other Start: 02-03-2022 Office outpatient vi sit [...] Td Vaccines (3 - Td or Tdap) [facility] Start: 09-17-2023 End: 09-17-2023 Patient encounter procedure 09/17/2023 8:45 AM EDT Office Visit [facility] [address] [place] [id number] Kaitlyn Jasso MD [address] [facility] [address] [place] [address] [facility] Start: 09-17-2023 End: 09-17-2023 Patient encounter procedure 09/17/2023 7:30 AM EDT Appointment [facility] [address] [place] [id number] [facility] Start: 05-01-2023 [facility] Start: 03-15-2023 [facility] Start: 01-19-2023 COVID-19 Vaccine ( season) COVID-19 Vaccine () [facility] Start: 01-19-2023 Influenza vaccination Influenza Vacc ine [facility] Start: 12-30-2021 Adult BMI Screening Adult BMI Screen ing [facility] Start: 2006 Screening for malign ant neoplasm of cervix Pap Smear [facility] Start: 1997 Depression Screening Depression Scre ening [facility] Start: 1997 Tobacco Screening Tobacco Screening [facility] Immunizations Immunization Date Immunization Notes Care Provider Fa cility 02-03-2020 influenza virus vaccine, unspecified formulation Kaitlyn Jasso MD Work Phone: [facility] Payers Date Payer Category Payer Private Health Insurance [id number] 2023 Self-pay [id number] 2018 Private Health Insurance [employer] A ETNA POS II [id number] 2018-Present [phone] [address] [place] [address] [id number] 1985 Unknown [id number] 2..840.1.275732.3.579.2 .1286 1985 Unknown [id number] 2.16.840.1.922329.3.579.2 .1259 1985 Unknown [id number] 2.16.840.1.799924.3.579.2 .1259 1985 Unknown [id number] 2.16.840.1.458061.3.579.2 .1259 1985 Unknown [id number] 2.16.840.1.089516.3.579.2 .1259 1985 Unknown [id number] 2.16.840.1.821130.3.579.2 .1259 1985 Unknown [id number] 2.16.840.1.173501.3.579.2 .1286 1985 Unknown [id number] 2.16.840.1.446979.3.579.2 .128 1985 Unknown [id number] 2.16840.1.652141.3.579.2 .128 1985 Unknown [id number] 2.840.1.028676.3.579.2 .128 1985 Unknown [id number] 2.16840.1.876901.3.579.2 .128 1985 Unknown [id number] 2.16840.1.706061.3.579.2 .1286 Medicaid [employer] [id number] Private Health Insurance [id number] Unknown [employer] [id number] Unknown [id number] 2.840.1.965097.3.579.2 .531 Unknown [id number] 2.840.1.233082.3.579.2 .531 Unknown [id number] 2.840.1.936792.3.579.2 .531 Social History Date Type Detail Facility Start: 06-30-2020 End: 07-26-2023 Sex Assigned At [facility] Other Start: 03-15-2023 End: 03-15-2023 Tobacco smoking status NHIS Ex-smoker (finding) [facility] Start: 1985 Sex Assigned At Female F [facility] Start: 11-17-2020 Tobacco smoking stat us NHIS Smokes tobacco daily [facility] [facility] History of tobacco use Tobacco U se Types Packs/Day Years Used Date Smoking Tobacco: Every Day Vaping/E-cigarettes Smokeless Tobacco: Never [facility] Start: 11-17-2020 Tobacco use and exposure Smokeless tobacco non-user [facility] Start: 07-26-2023 Alcohol intake Current drinke r of alcohol (finding) [facility] Start: 06-30-2020 End: 07-26-2023 History of Social function [facility] Childcare Unknown [facility] Start: 11-17-2020 Alcohol Comment social [facility] Start: 05-04-2023 [facility] Start: 1985 Sex Assigned At Not on file [facility] Goals Date Patient Goal Desired [...] Mayelin Pinto DO on 08/31/2023 11:23 AM [facility] 06-12-2023 Evaluation note Encounter Date Diagnosis Assessment Notes May, Diarrhea (ICD-10 - R19.7) Patient reports that she is about 7-8 weeks gestational Patient reports improvement on Creon with occasional flare Patient reports that she is taking a fiber supplement May, Fatty liver (ICD-10 - K76.0) Patient did have a FibroScan that indicates fatty liver and minimal scaring, this will be reviewed [email or web address] Other 11-17-2023 Evaluation note* Encounter Date Diagnosis Assessment Notes Treatment Notes Treatment Clinical Notes Mar, Exocrine pancreatic insufficiency (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) [email or web address] Other 10-31-2023 Evaluation note* Encounter Date Diagnosis Assessment Notes Treatment Notes Treatment Clinical Notes Feb, Alternating constipation and diarrhea (ICD-10 - R19.8) Feb, Fecal urgency (ICD-10 - R15.2) [email or web address] Other 10-30-2023 Evaluation note* Encounter Date Diagnosis Assessment Notes Treatment Notes Treatment Clinical Notes Feb, Alternating constipation and diarrhea (ICD-10 - R19.8) [email or web address] Other 10-26-2023 Procedure [facility]10-09-2023 Evaluation note* Encounter Date Diagnosis Assessment Notes Treatment Notes Treatment Clinical Notes Feb, Alternating constipation and diarrhea (ICD-10 - R19.8) [email or web address] Other 09-21-2023 Evaluation note* Encounter Date Diagnosis Assessment Notes Treatment Notes Treatment Clinical Notes Jan, Alternating constipation and diarrhea (ICD-10 - R19.8) WORSENING DIARRHEA AND CONSTIPATION OVER THE PAST YEAR. DOES HAVE SOME NOCTURNAL AWAKENINGS WITH THE DIARRHEA. CAN GO 4-5 DAYS WITH OUT A BOWEL MOVEMENT WHEN SHE IS CONSTIPATED. WILL ORDER IBS WORK UP WILL PROCEED WITH COLONOSCOPY [email or web address] Other 08-29-2023 Evaluation note* Encounter Date Diagnosis [...] no improvement in 2 to 3 days [email or web address] Other 2023 Evaluation note* Encounter Date Diagnosis [...] no improvement in 2 to 3 days [email or web address] Other 04-17-2023 Evaluation note* Encounter Date Diagnosis Assessment Notes Treatment Notes Treatment Clinical Notes Aug, Contact with and (suspected) exposure to other viral communicable diseases (ICD-10 - Z20.828) [email or web address] Other 02-22-2023 Evaluation note* Encounter Date Diagnosis Assessment Notes Treatment Notes Treatment Clinical Notes Jun, Contact with and (suspected) exposure to covid-19 (ICD-10 - Z20.822) [email or web address] Other 02-17-2023 Evaluation note* Encounter Date Diagnosis Assessment Notes Treatment Notes Treatment Clinical Notes Jun, Preoperative clearance (ICD-10 - Z01.818) [email or web address] Other 09-16-2022 Evaluation note* Encounter Date Diagnosis Assessment Notes Treatment Notes Treatment Clinical Notes Jan, Contact with and (suspected) exposure to covid-19 (ICD-10 - Z20.822) [email or web address] Other Evaluation note* Diagnosis Onset Date Resolution Status Diarrhea acute [facility] Work Phone: Evaluation noteNo InformationNort [employer] Other History general Narrative - Reported* Type Description Date Medical History ANXIETY AND DEPRESSION [email or web address] Other Hospital Discharge instructions Additional Instructions DISCHARGE [...] if you have any problems. -Office number [phone] Work Phone: InstructionsNot on filedocumented in this encounter [facility] [employer] SystemReason for visit NarrativeRED EQUINOX, ANTIGEN PROCEDURE TESTNoWinView [employer] Other Reason for visit NarrativeNEEDSNEGATIVE, RAPID COVID TEST FOR [facility]ENo[facility] [employer] Other Summary Purpose Family History No Family [...] section and content) DATE CREATED AUTHOR [facility]24/2021 [facility] DATE CREATED AUTHOR AUTHOR'S ORGANIZ ATION 05/09/2023 [facility] DATE CREATED AUTHOR AUTHOR'S ORGANIZ ATION 09/22/2023 [facility] DATE CREATED AUTHOR AUTHOR'S ORGANIZ ATION 10/12/2023 [facility] DATE CREATED AUTHOR AUTHOR'S ORGANIZ ATION 10/27/2023 [facility] REASON FOR VISIT (unrecogniz ed section [...] Active Shun Hill MD Attending Provider Active 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 [facility] [employer] [facility]. provides no warranty or guarantee of the accuracy or completeness of information in this document.
== END 2023-11-01 12:30 | disposition home or self-care (01) ==
PROVIDERS: Visit Provider Obstetrics & Gynecology
DX: O24.419 Gestational diabetes mellitus in pregnancy, unspecified control (principal)
CPT/HCPCS: G0108

== ENCOUNTER 2023-12-03 07:13 | Outpatient (OUT) | payer OTHER, SELFPAY ==
--- NOTE | 2023-12-03 13:30 | US_ITS ---
[place] [id number] Patient Name: GONZÁLEZ LOMELI MRN: [id number] date: 1985 Sex: F Assigned Patient Location: [facility] Current Patient Location: Accession/Order Number: [id number] Exam Date: 12/03/2023 13:40 Report Date: 12/03/2023 15:11 At the request of: SAGAR BUTLER Procedure: US OB BPP w non-stress EXAMINATION: US OB BPP w non-stress HISTORY: Multigravida of advanced maternal age O09.523 COMPARISON: No relevant comparison available. TECHNIQUE: Ultrasound biophysical profile was performed in the radiology department. FINDINGS: BREATHING MOVEMENTS: 2 GROSS BODY MOVEMENTS: 2 TONE: 2 QUALITATIVE AMNIOTIC FLUID VOLUME: 2 PRESENTATION: CEPHALIC HEART RATE: 140.63 bpm AMNIOTIC FLUID VOLUME: 20.6 cm GESTATIONAL AGE: 32 weeks 3 days US/US OB BPP w non-stress IMPRESSION: Total biophysical profile score: 8 Electronically authenticated by: MUSTAPHA COLES Date: 12/03/2023 15:11
[2023-12-03 14:28] VITALS: BP 131/73; PULSE 103
== END 2023-12-03 14:55 | disposition home or self-care (01) ==
LOC: US 07:13 → FBC 13:52
PROVIDERS: Visit Provider Obstetrics & Gynecology
DX: Z31.83 Encounter for assisted reproductive fertility procedure cycle (principal); O09.523 Supervision of elderly multigravida, third trimester; Z3A.32 32 weeks gestation of pregnancy
CPT/HCPCS: 76818

== ENCOUNTER 2023-12-06 07:03 | Outpatient (OUT) | payer OTHER, SELFPAY ==
--- OUTSIDE RECORDS SUMMARY | 2023-12-06 07:05 | XMS_ITS | CCD ---
Author Organization [facility] Inform ion Partnership [facility] Care Team Providers Care Recovery Agent Name Role Phone Maria Guadalupe Powers Unavailable NadiyaAydee anderson Unavailable Perla Márquez Unavailable Shun Hill Unavailable MD Shun Hill Attending Provider [phone] DO Irma Burt Primary Care Provider MD Shun Hill Attending Provider DO Irma Burt Primary Care Provider Shun Hill Admitting Unavailabl e Irma Burt Primary Care Unavailable Shun Hill Attending Unavailabl e Shun Hill Attending Unavailabl e Shun Hill Admitting Unavailabl Irma Broussard Primary [...] NO PCP, NO PCP Primary Care Unavailable ERA MCAMNUS Attending Unavailable SAGAR BUTLER R Referring Unavailable NO PCP, NO PCP Primary Care Unavailable DILSHAD FRAGA Attending Unavailable SAGAR BUTLER Referring Unavailable NO PCP, NO PCP Primary Care Unavailable SAGAR BUTLER Attending Unavailable SAGAR BUTLER Attending Unavailable IRMA YI Attending Unavailable SAGAR BUTLER Attending Unavailable IRMA YI Attending Unavailable SAGAR BUTLER Attending Unavailable SAGAR BUTLER Attending Unavailable Medications Current Medications Medication Drug Class(es) Dates Sig (Normalized) Sig (Original) amoxicillin 500 mg oral capsule (2 sources) Penicillin-class Antibacterial Start: 07-26-2022 take 1 capsule by mouth every eight hours Amoxicillin 500 MG 1 capsule Orally three times a day for 10 day(s) Jul, Active amylase 744783 unt / lipase 33267 unt / protease [id number] unt delayed release oral capsule (3 sources) Start: 04-06-2023 take 2 capsules by mouth three times daily at mealtime Creon [id number] UNIT 2 capsules Orally three times a [...] 1 tablet by mouth twice daily Sutab 8115-738-185 MG 12 tablets the first dose the [...] 5 day(s) September, Not-Taking 84 hr estradiol 0.52948 mg/hr transdermal system (4 sources) Estrogen take [...] left foot, initial encounter] Onset: 08-31-2023 Episodic Diabetes or abnormal glucose tolerance complicating ; childbirth; or the puerperium (2 sources) Gestational diabetes mellitus in , insulin controlled; Translations: [Gestational diabetes mellitus in , unspecified control] Onset: 11-07-2023 Episodic Immunizations and screening for infectious disease [...] Other complications of (1 source) Supervision of with other poor reproductive or obstetric history, unspecified trimester; Translations: [Supervision of with other poor reproductive or obstetric history, unspecified trimester] Onset: 11-14-2023 Episodic Other complications of (1 source) Supervision [...] RANDOM URINE PROTEIN 170 mg/L High <120 [facility] Comment on above: Performed By: #### U PCR #### [facility] ([id number]) [address] [place] [address], [facility] [address] [place] [address] U/PRO/[employer] RATIO CALC 0.17 Normal <0.2 [facility] Comment on above: Result Comment: Neph rotic Syndrome is associated with ratios >3.5 Performed By: #### U PCR #### [facility] ([id number]) [address] [place] [address], [address] [place] [address] URINE CREATININE,RDM 98.06 mg/dL Normal [facility] Comment on above: Performed By: #### U PCR #### [facility] ([id number]) [address] [place] [address], [facility] [address] [place] [address] COMPLETE BLOOD COUNTon 09-16 Erythrocyte distribution width (RBC) [Ratio] 13.0 % Normal 11.5-15.0 [facility] Comment on above: Performed By: #### C BC, CMP, FEPR, 2532-0, 3084-1, TSHR, 2276-4, 2284-8, 2132-01 #### [facility] ([id number]) [address], [address] [place] [address] Hematocrit (Bld) [Volume fraction] 34.6 % Low 35-47 [facility] Comment on above: Performed By: #### C BC, CMP, FEPR, 2532-0, 3084-1, TSHR, 2276-4, 2284-8, 2132-01 #### [facility] ([id number]) [address], [facility] [address] [place] [address] Hemoglobin (Bld) [Mass/Vol] 11.9 g/dL Normal 11.7-15.5 [facility] Comment on above: Performed By: #### C BC, CMP, FEPR, 2532-0, 3084-1, TSHR, 2276-4, 2283-8, 2132-01 #### [facility] ([id number]) [address], [address] [place] [address] MCH (RBC) [Entitic mass] 30.9 pg Normal 27-34 [facility] Comment on above: Performed By: #### C BC, CMP, FEPR, 2532-0, 3084-1, TSHR, 2276-4, 2283-8, 2132-01 #### [facility] ([id number]) [address], [address] [place] [address] MCHC (RBC) [Mass/Vol] 34.4 g/dL Normal 32-36 [facility] Comment on above: Performed By: #### C BC, CMP, FEPR, 2532-0, 3084-1, TSHR, 2276-4, 4-8, 2132-01 #### [facility] ([id number]) [address], [address] [place] [address] MCV (RBC) [Entitic vol] 90 fL Normal 80-100 [facility] Comment on above: Performed By: #### C BC, CMP, FEPR, 2532-0, 3084-1, TSHR, 2276-4, 2284-8, 2132-01 #### [facility] ([id number]) [address], [address] [place] [address] Platelet mean volume (Bld) [Entitic vol] 9.4 fL Normal 7-12 [facility] Comment on above: Performed By: #### C BC, CMP, FEPR, 2532-0, 3084-1, TSHR, 2276-4, 2284-8, 2132-01 #### [facility] ([id number]) [address], [address] [place] [address] Platelets (Bld) [#/Vol] 181 10*3/uL Normal 150-450 [facility] Comment on above: Performed By: #### C BC, CMP, FEPR, 2532-0, 3084-1, TSHR, 2276-4, 2284-8, 2132-01 #### [facility] ([id number]) [address], [address] [place] [address] RBC COUNT 3.85 X10E12/L Normal 3.80-5.20 [facility] Comment on above: Performed By: #### C BC, CMP, FEPR, 2532-0, 3084-1, TSHR, 2276-4, 2284-8, 2132-01 #### [facility] ([id number]) [address], [address] [place] [address] WBC (Bld) [#/Vol] 11.3 10*3/uL High 4.0-11.0 [facility] Comment on above: Performed By: #### C BC, CMP, FEPR, 2532-0, 3084-1, TSHR, 2276-4, 2284-8, 2132-01 #### [facility] ([id number]) [address], [address] [place] [address] COMPREHENSIVE METABOLIC PANE Charles 09-17-2023 Albumin [Mass/Vol] 3.4 g/dL Normal 3.2-5.3 [facility] Comment on above: Performed By: #### C BC, CMP, FEPR, 2532-0, 3084-1, TSHR, 2276-4, 2284-8, 9 #### [facility] ([id number]) [address], [address] [place] [address] ALP [Catalytic activity/Vol] 71 U/L Normal 39-130 [facility] Comment on above: Performed By: #### C BC, CMP, FEPR, 2532-0, 3084-1, TSHR, 2276-4, 2284-8, 2132-01 #### [facility] ([id number]) [address], [address] [place] [address] ALT [Catalytic activity/Vol] 11 U/L Normal 0-31 [facility] Comment on above: Performed By: #### C BC, CMP, FEPR, 2532-0, 3084-1, TSHR, 2276-4, 2284-8, 2132-01 #### [facility] ([id number]) [address], [address] [place] [address] Anion gap [Moles/Vol] 11 mmol/L Normal 5-15 [facility] Comment on above: Performed By: #### C BC, CMP, FEPR, 2532-0, 3084-1, TSHR, 2276-4, 2284-8, 9 #### [facility] ([id number]) [address], [address] [place] [address] AST [Catalytic activity/Vol] 13 U/L Normal 0-41 [facility] Comment on above: Performed By: #### C BC, CMP, FEPR, 2532-0, 3084-1, TSHR, 2276-4, 2284-8, 2132-01 #### [facility] ([id number]) [address], [address] [place] [address] Bilirubin [Mass/Vol] 0.3 mg/dL Normal 0.3-1.2 [facility] Comment on above: Performed By: #### C BC, CMP, FEPR, 2532-0, 3084-1, TSHR, 2276-4, 2284-8, 2132-01 #### [facility] ([id number]) [address], [address] [place] [address] Calcium [Mass/Vol] 9.0 mg/dL Normal 8.5-10.5 [facility] Comment on above: Performed By: #### C BC, CMP, FEPR, 2532-0, 3084-1, TSHR, 2276-4, 2283-8, 2132-01 #### [facility] ([id number]) [address], [address] [place] [address] Chloride [Moles/Vol] 104 mmol/L Normal 98-109 [facility] Comment on above: Performed By: #### C BC, CMP, FEPR, 2532-0, 3084-1, TSHR, 2276-4, 4-8, 2132-01 #### [facility] ([id number]) [address], [address] [place] [address] CO2 [Moles/Vol] 24 mmol/L Normal 22-32 [facility] Comment on above: Performed By: #### C BC, CMP, FEPR, 2532-0, 3084-1, TSHR, 2276-4, 2284-8, 2132-01 #### [facility] ([id number]) [address], [address] [place] [address] Creatinine [Mass/Vol] 0.46 mg/dL Normal 0.40-1.00 [facility] Comment on above: Result Comment: METH OD TRACEABLE TO IDMS STANDARD Performed By: #### C BC, CMP, FEPR, 2532-0, 3084-1, TSHR, 2276-4, 2284-8, 2132-01 #### [facility] ([id number]) [address], [address] [place] [address] eGFR (CKD-EPI) NON-RACE DEPENDENT >90 Normal >59 [facility] Comment on above: Result Comment: Reported eGFR is based on the CKD-EPI 2020 equation that does not use a race coefficient. Performed By: #### C BC, CMP, FEPR, 2532-0, 3084-1, TSHR, 2276-4, 2284-8, 2132-01 #### [facility] ([id number]) [address], [address] [place] [address] Glucose [Mass/Vol] 78 mg/dL Normal 65-99 [facility] Comment on above: Performed By: #### C BC, CMP, FEPR, 2532-0, 3084-1, TSHR, 2276-4, 2284-8, 2132-01 #### [facility] ([id number]) [address] [address] [place] [address] Potassium [Moles/Vol] 4.0 mmol/L Normal 3.5-5.0 [facility] Comment on above: Performed By: #### C BC, CMP, FEPR, 2532-0, 3084-1, TSHR, 2276-4, 2284-8, 2132-01 #### [facility] ([id number]) [address], [address] [place] [address] Protein [Mass/Vol] 6.5 g/dL Normal 6.0-8.0 [facility] Comment on above: Performed By: #### C BC, CMP, FEPR, 2532-0, 3084-1, TSHR, 2276-4, 2284-8, 9 #### [facility] ([id number]) [address], [address] [place] [address] Sodium [Moles/Vol] 139 mmol/L Normal 134-146 [facility] Comment on above: Performed By: #### C BC, CMP, FEPR, 2532-0, 3084-1, TSHR, 2276-4, 2284-8, 2132-01 #### [facility] ([id number]) [address], [address] [place] [address] Urea nitrogen [Mass/Vol] 8 mg/dL Normal 5-23 [facility] Comment on above: Performed By: #### C BC, CMP, FEPR, 2532-0, 3084-1, TSHR, 2276-4, 2284-8, 2132-01 #### [facility] ([id number]) [address], [address] [place] [address] FERRITINon 09-17-2023 Ferritin [Mass/Vol] 11 ng/mL Normal 11-307 [facility] Comment on above: Performed By: #### C BC, CMP, FEPR, 2532-0, 3084-1, TSHR, 2276-4, 2284-8, 2132-01 #### [facility] ([id number]) [address], [address] [place] [address] Folate [Mass/Vol]on 09-17-19 24 FOLIC ACID 18.1 ng/mL Normal >5.8 [facility] Comment on above: Result Comment: NEW REFERENCE RANGE Performed By: #### C BC, CMP, FEPR, 2532-0, 3084-1, TSHR, 2276-4, 2284-8, 2132-01 #### [facility] ([id number]) [address], [address] [place] [address] IRON PROFILEon 09-17-2023 Iron [Mass/Vol] 52 ug/dL Normal 50-170 [facility] Comment on above: Performed By: #### C BC, CMP, FEPR, 2532-0, 3084-1, TSHR, 2276-4, 2284-8, 2132-01 #### [facility] ([id number]) [address], [address] [place] [address] IRON BINDING 580 ug/dL High 250-425 [facility] Comment on above: Performed By: #### C BC, CMP, FEPR, 2532-0, 3084-1, TSHR, 2276-4, 2284-8, 2132-01 #### [facility] ([id number]) [address], [address] [place] [address] IRON SATURATION 9 % SATURATION Low 15-50 [facility] Comment on above: Performed By: #### C BC, CMP, FEPR, 2532-0, 3084-1, TSHR, 2276-4, 2284-8, 2132-01 #### [facility] ([id number]) [address], [address] [place] [address] LDH [Catalytic activity/Vol] on 09-17-2023 LDH 124 U/L Normal 100-235 [facility] Comment on above: Performed By: #### C BC, CMP, FEPR, 2532-0, 3084-1, TSHR, 2276-4, 2284-8, 2132-01 #### [facility] ([id number]) [address], [address] [place] [address] Natriuretic peptide B [Mass/ Vol]on 09-17-2023 Natriuretic peptide B (Bld) [Mass/Vol] 66 pg/mL Normal <100.0 [facility] Comment on above: Performed By: #### C BC, CMP, FEPR, 2532-0, 3084-1, TSHR, 2276-4, 2284-8, 2132-01 #### [facility] ([id number]) [address], [address] [place] [address] TSH WITH REFLEXon 04-29-2024 TSH 0.78 uIU/mL Normal 0.49-4.67 [facility] Comment on above: Performed By: #### C BC, CMP, FEPR, 2532-0, 3084-1, TSHR, 2276-4, 4-8, 2132-01 #### [facility] ([id number]) [address] [facility] [address], [address] [place] [address] Thiamine (Bld) [Mass/Vol]on 09-17-2023 THIAMIN VITAMIN B1 See Below Normal [facility] Comment on above: Result Comment: NOTE [...] developed and its performance characteristics determined by [facility] [place] ([facility] It has not been cleared or approved by the FDA. [facility] is regulated under CLIA as qualified to perform high-complexity testing. This test is used for clinical purposes. It should not be regarded as investigational or for research. Test Performed By: [facility] [employer] [address] [place] [address] Core Drill Operator: Colin Cisneros III, M.D. CLIA #[id number] Performed By: #### C BC, CMP, FEPR, 2532-0, 3084-1, TSHR, 6-4, 2283-8, 2132-01 #### [facility] ([id number]) [address], [address] [place] [address] URIC ACIDon 09-17-2023 Urate [Mass/Vol] 5.1 mg/dL Normal 2.6-7.2 [facility] Comment on above: Performed By: #### C BC, CMP, FEPR, 2532-0, 3084-1, TSHR, 2276-4, 2284-8, 9 #### [facility] ([id number]) [address], [address] [place] [address] VITAMIN B12on 09-17-2023 Cobalamin (Vitamin B12) [Mass/Vol] 185 pg/mL Normal 180-914 [facility] Comment on above: Performed By: #### C BC, CMP, FEPR, 2532-0, 3084-1, TSHR, 2276-4, 2284-8, 2132-01 #### [facility] ([id number]) [address], [address] [place] [address] TSHon 05-25-2023 Thyroid Stimulating (3Rd Generation) Hormone/ Tsh 2.200 [facility] abdomen w conon 3 CT abdomen w con [place] [address] CT Scan Report Signed Patient: Laura Alves MR#: [id number] 3 : 1985 Acct:[id number] Age/Sex: 37 / F ADM Date: 04/10/23 Loc: CT Room: Type: [facility] Attending Dr: Shun Hill MD Copies [...] Stan Owens M.D.04/10/2023 4:03 PM Dictation Location: [place] [address] Transcribed By: [facility] 04/10/23 1603 Dictated By: Stan Owens DO 04/10/23 1559 Signed By: 04/10/23 1605 Normal [facility] HCG ( test) IA.rapi d Ql (U)Ordered By: Shun Hill on 03-15-2023 HCG ( test) Ql (U) Negative [facility] HCG,Urineon 03-15-2023 Beta HCG ( test) Ql (U) Negative Normal [facility] Comment on above: Result Comment: PERF ORMED BY: [place] [address] PATHOLOGIST EXHIBIT CLEANER MARINA AYALA M.D. Performed By: #### U HCG #### [address] [place] 03-15-2023 L Specimen: [id number] Received: 03/15/23 Status: BUSTER Alfredo Num: [id number] Spec Type: Surgical Subm Dr: Shun Hill MD Tissues: A Colon Biopsy (SURVEILLANCE BX) Procedures: HE/2, Gross/Micro L4 Age/ Patient Sex Location Account Attending Physician Laura Alves 37/F [id number] Shun Hill MD SPEC NUM: [id number] RECD: 03/15/23 STATUS: BUSTER FUENTES NUM: [id number] SUMIT: 03/15/23 DR: Shun Hill MD ENTERED: 03/15/[address] [facility] [address]: MEKA TYPE: Surgical DEPT: S [...] The microscopic examination confirms the diagnosis. Specimen: [id number] Received: 03/15/23 Status: UBSTER Fuentes Num: [id number] Spec Type: Surgical Subm Dr: Shun Hill MD Tissues: A Colon Biopsy (SURVEILLANCE BX) Procedures: HE/2, Gross/Micro L4 Patient: Laura Alves [id number] (Continued) Specimen: [id number] Received: 03/15/23 (Continued) Signed (signatur e on file) Winston Donis MD 03/16/23 1737 Specimen: [id number] Received: 03/15/23 Status: BUSTER Fuentes Num: [id number] Spec Type: Surgical Subm Dr: Shun Hill MD Tissues: A Colon Biopsy (SURVEILLANCE BX) Procedures: HE/2, Gross/Micro L4 Patient: Laura Alves [id number] (Continued) Specimen: [id number] Received: 03/15/23 (Continued) CPT Codes 15228 Specimen: [id number] Received: 03/15/23 Status: BUSTER Fuentes Num: [id number] Spec Type: Surgical Subm Dr: Shun Hill MD Tissues: A Colon Biopsy (SURVEILLANCE BX) Procedures: HE/Yaz, Gross/Micro L4 Patient: Laura Alves [id number] (Continued) Signed (signatur e on file) Robbi-Tyrel Donis MD 03/16/23 5008 [facility] SARS-CoV-2 (COVID-19) RNA NA A+probe Ql (Resp)on 01-16-2023 SARS-CoV-2 (COVID-19) RNA GEORGE+probe Ql (Unsp spec) Positive [employer] Other HIV 1&2 AB/AG Screen (P24 AG )on 12-13-2022 HIV 1&2 AB/AG Non-Reactive [facility] Hepatitis B surface antigeno n 12-13-2022 Hepatitis B Surface Antigen Negative [facility] No Panel InformationOrdered By: Rae Agudelo on 12-13-2022 [facility] Rubella IGG immune statuson 12-13-2022 Rubella immune IgG <0.90 NON IMMUNE [facility] Syphilis Total(Unknown Syphi lis Status)Ordered By: Rae Agudelo on 12-13-2022 Syphilis Non-Reactive [facility] COVID Quick Testingon 2022 Result Negative [facility] [employer] Other COVID Quick Testingon 2022 Result Negative [facility] [employer] Other COVID Quick Testingon 2022 Result Negative [facility] [employer] Other COVID Quick Testingon 2021 Result Negative [facility] [employer] Other Consent for Treatmenton 05-21 Consent for Treatment 149.45.122.20.2021 0 [id number] 318#1.00CD:127 [facility] Coding Summary.on 05-28-2021 Coding Summary. CD:[id number] OFo4sEb+PGhlYWQ+PE1 ZRDOuZ29ouFAyrY3UK4 cCJD5NFOFMXHCJBP3KO B5bvUZ3QXksN2JovgLd YedmsSVoAT55ZBz1WEX 9rWhxDWvsdC9lfUHeG2 v5CbJsXI47nY90KLwjL JMoRpV3NqIpsytsrBFo P2okEwUtpCZuEhg+PHR hYmxlIHdpZHRoPScxMD ArNmJzeAzrFZ9lXe3vD GVyLWNvbGxhcHNlOiBj a1zfLGCdVGhcLN9ywTo sM7CxtKE3FVJtn9e0Gm 48dHI+IDGaVEU7zLxvP Ljlg735ShHrh1myREO8 kKLvYVxhVLZ9G17tn9Q 8XWNrMIZwWLU1zED6eL 7rgVpedrsxU0YxtWYtK nT9WCX1lFGkkY2ozSam rwtpzR1iXpq+Q06PAE6 XOBWGCS6NDlr6T2IeNn wvdHI+PE88GHWaLH11w DDngOKif6adoDh3RyJs OMJbYCO1eRoaABbqi6A mKJCwX79hxUYyu8T1RW ZvlYutxEWoSmAmkUW4u A2zSEqkgvwdv5hvxcgs Zsoat4yfyq38tJ60P58 uFLhiUNRxPLT4YFXiIW ZptMryze4jzF2vFx5+I Rzqa5yyz0kfjYe6ApZx DGLqjpDonWfcDAM0a3K dQi63F4GvdIrfz5IrIc i0lg94fUMxm7Z5sPO6Y QktOWXdzH7jZEnyRcN0 XQKfNdJwcI37rKSeWSr xKt9dwXpfzLhfMC3eKG XmgtzcNMSxoK4iMXNwz JOrdHatII9kLTBxexqg p545BcNiPAR7CUBxgTO iD4PznX9hSjUmSDFdOK DzU8LylPKmHSvlZ032L WdbSpG5YVRhihGqV9Sk GMZqvPtvVkE4f3Y4Tj4 Or4YstmfdUHW9QHtvIT YiWdP6VpDlLaJ1Q7GgD vc2JWYdtUzbGN5eX9Rs XXCpypjxktuxxEE6EST qDOBsfK10dNDbMBovEt 7vl0F9b555IRBjWFXpp H67Pn1rsQuyRTFagHWA xY7vyuylh9jktdujAtL mSSGgCMk7OAj5LCXhjG pvWvIhZSQ3JrA1UHO4v UBsxJ1egDokibofwL5j Oyc+X78yqP1vDHY2MFK 3xmwxLRSzccTwZG34ZG 66V6ToUblytEWbwMS+P PHflaGvfEtqTE8jDzIx v9gzk7AqUTlkJ7XgNXJ fXPcfIwc6PVVlNIG1tE Q1nY6aODQzRBndp3K4o UN4T5WijwXxlo4xz7fg RIBtLMnvH29jqZJim4Z 9WGSycTF2SIGceCbuGh RayL07Jou+PGNvbGdyb 5NnDqrvk4tyo7nnyWu7 IjMwJSIgdmFsaWduPSJ 1y1BsPf96V89cXQsgQB RoPSIxNSUiIHZhbGlnb e7djW4gUw7+PGNvbCB3 tZK0vF3mJQHvBcG2ZZj iE529GwWndCGtOghye5 xqu0mgtVz9YmWjNKJau iTaqGgwSDY8r5KcJs34 V77mFZftJNXiAANmPBW jSNKhqUokmi5miM7yOe 8+RO8or5paou57vQ58v HI+HGOmUCJ7qWbuYZam JZBabS4cTRykApW1XVT aEuUqrK65aAKlDGpcKb 1xiDymgBjkSD2xVETef kafs863OcUif2uxLPDe xVTwWOfbYMA8L74wf7J 2TCZgUDAbYSF0aNW8fP 1hbGlnbjogbGVmdDsgd iMzbVxrKFfkPPglK886 IHRvcDsnPlBhdGllbnQ uXoDaXEh6D5UuAnh4UX NdiWteEM0rrFHbZLifL y7biUhcwQixRR0nLQIj abshu776JsAyn9xkNSM ewNFcZZkdXMS9R15ny9 M4ABPkMYJgBBH6mLG5o Z2rfDckhwoauTIxaQik uhHtlQlaRLzvNDuuK60 6IHRvcDsnPkJpcnRoIE BksIM3VK35RV65bHCgu 2I9uWK9R4YaYDLqofqw gfvddEW9BGFlEPAdzM6 7Ep1sqVtpDy0jCOKnAZ B2UCOvqJDtA0RtpD8lM jJkDAVcNJMxC6VaePWy JWyfR570SApuYbR3HYQ bwgUrF1GnPCBvhJvaCa W3b9Y0Sl6DR0S1CJ26J A20qBAbw2M2tFR4C5Ft KTVhgktvaqlaiPO6GPV cXBFnaL74Sm1uvTyqYd 4mCHMzAFM6JXCtwFWcY 2CyaO1oHsNmRXUxJNXw M5DiyPRpWOlxO114WDg vMkV4XHCthcViL5RfIB AawLgvJlM1y9H8Hb9DV Ts9VJ57NZ24rFOkw0K2 xST6B9PxFDRiemfmxkd hgKR3TMGsYXXsfP13Sl 5ucJdeUi3rWQWoFBF7U ZQuyTGaY7ZgoS5dIcKn AGTbQXOyS5KbwDVgEYh yD327PMjkSoR5KUDafc XyQ2GhBVFfrLaaAsB7c 8H6Cb2DSJYqBX91CUT2 dIB6EF87MI40W3FvBde vdGFibGU+PHRhYmxlIH dpZHRoPScxMDAlJyBzd VmbRV5dSf7fXWAhUVHo yPhwySNyMuDan0xdQWI eZBoiDC5yhSeyP4QprI J7YVEcz7h7Xz98A24hN 3JvdXA+PIIjyYV5uFH1 fB9aIcOsXlZ3LTyqV08 8LvXelYDdCdvrh8uqs3 rewFb8OtD6GVBkuiPmd IvsCIF2v6GpWp78M55l IHdpZHRoPSIxNSUiIHZ svVkkac4qwW7pHj2+PG CdmDD7mDJ1zN2kJbFhY sD8HJixB882PiUthQQb Hvygn0pfb3wxwJm8EsE oJAEnwnZkhUmfTXB2b1 PyUx15Y4AjjLuzl5OsE lt2um95zYYhe9K8aOO7 M7JiIIBpvovzwPMabXs iYX9eCGGlzpblTIJsfI 4dNMNyR6p8RvGfNrJ2D FidF0BycsL7RPSowFHp KZjjPUL7N48em4B3RTV iHNRkDMT1yMO1rZ1cjM lnbjogbGVmdDsgdmVyd SltHUuwBTooY000UNBk jWwjMOQonV9oESCmlQU ljTynID2oYAKbydjfZi jWHU2ALYDSHzroWUyDX MFUAFNMLR73HE57cGEe r6E6pDA1G9RwXRWbjnf hbrhjhVS3PFOyAPZukV 39xRHmIRezPa0fz1G1e 538CTMaVZKhrN89Jn8b gPvxDDAuyQULbM6jknm ll9csthhyBwJkWMFuQM v8FBu8DRZopKkmOiSwM IM7CwJ5UOE7hRXflC9w xPabdvbzfK8yWhq+MTI fYRuwWXz2FSbahXI+PH BkTEF7yBneIZnyFUMgl S3lDJPoQ9c0InLiAxK7 IByhH7CsWHUlzdeeRt3 6xA3cDoPjOdJ0ASjdQ6 OcptX3BDWtlRPsKFshF UJ6U40ml8T4FNXfWKAe PNN2lZS4wP5okNdqmjv gbGVmdDsgdmVydGljYW euSBxtX566URDqqWltB uR4MQejIQMvKS94WU85 jNJqu2H8mRD7L1RdPVB gbqhjofucrXO7QCLfBA SqkS29yUMdNMmhOs4hp 2S3m588WJFtFXRqcA48 Rx4twVqjXHRdiOVMfU8 hkgmzg9ifwcsbUlCtLU RbBCb0ZTh8MEGkuPjeX nHeZTR5TrX5MPE6kSGp wN4yeZvnrzcvjM0vOoa +DqCrBOzgGN06OX40fZ Xfy9T2rBD7G7ZpWVYcw rvtjjxavOO0UZTyBDOg yX78pXYfGUkrOx6zx6R 3n036LWUbDCPmyX76Qs 7jyCreXVVipICCrQ8yf qzwf3mxxgfsYaRbXVHz NVu1TXp5XDTilKaxHxE nJWT7XdD0QMF0hVHipW 3bfIwjfiuiaV2gYkh+U nDgvFLzgE4cQS79ZS55 I2ZsIxzxhOYfrOQ+PHR hYmxlIHdpZHRoPScxMD OxJiIsoDhiQP4rNi6hG GVyLWNvbGxhcHNlOiBj y3uyZJJwCFcmRJ7klLb iX8QhrZQ6ZWJta9t6Zz 36B08kP1DteLP+PGNvb EA9hGV7lM2zChPwCxO4 NZxkF863UuTspNGaZxv nk5vju3gyrSk4XgCrKG DdwhLfeTurUMS4j3UpR p55K14zLIqbFIWrHEQu QDLxITNqtSveth4htR3 wIi8+FQReoMD5fRN9vU 6qNeJfGqM9FQrxX702O mRzaUOxEerlO31dF1Fl dXA+LNQeOfq7CCVweKk mRR4qeAHuGXcqQh0eVU Z0LgSoXtGtXAklF6MhI XEenxxegnqoqDE9MDOs RWFrfI45Gk0giYbhTd3 sGRSnSTI5CNFyyCFhC2 QfkK2tQfOdYPIfIWPvV 6IbiBBnLMiiK875QWuc NcO0YARgewFkZ6GdVDD eoVurZnN8l0J8Xs7RkT ihqQLuUT4rDwEyQMq9R 6PiCyt2LSEwkOsgYU2n yKNtVLaaFt5nnPsemUg nWJ9lJBDsrzrsl012Jc Uwp9ddBNHchPZzDJtyK OR2P65pd7K1JFElKSYz WCI1vJE5yN1mrTvonbd gbGVmdDsgdmVydGljYW lbCIceL115NMWkwWhuV bFLBqs1U3MwPgv1QUCh nQaiJM9coMMgIHeqZi7 njKtgjJfeED7vSGJuin utj369HcJje1kcFDLts ZDtXXkzMSH9P91ea8Y6 NPAlQBJxKUV7gZW0aN2 hbGlnbjogbGVmdDsgdm DbeHumBGuiRYilG275R PJpfExoVz4IEhm5P8Wh Wis0CUTkdWwoMK7nwJD fJPwoLm6onIdfkRauVF 3bWAGywxxbn897QaUzi 4riGORhtITwCHawXTM2 O57na9M0VBRnASLuVTB 4nBJ2jH3jaZlkqpafeN VmdDsgdmVydGljYWwtY DgtD121INJmwXdoUvBd eWVyOjwvdGQ+WQ29lf0 4J7QjUonkCgs2PTOeTZ Y7zZM5oE6qHYXcITuei 9J0zFA6L7HxhmNdnr2q b2xs (more content not included)... Normal [facility] Priority Order-Juan 2021 Priority Order-STAT Comment Invalid Interpretation Code [facility] Comment on above: Result Comment: Rece ived Performed at: [facility] [address] [place], [place] [id number] [facility] Mina Dominiquefran Performed By: #### S ARS-CoV-2, GEORGE, [id number] #### [facility] [address] [place] [address] SARS-CoV-2, NAAon 05-25-2021 SARS-CoV-2 (COVID-19) RNA GEORGE+probe Ql (Resp) Not detected Invalid Interpretation Code Not Detected [facility] Comment on above: Result Comment: This nucleic acid amplification test was developed and its performance characteristics determined by [employer]. Nucleic acid amplification tests include RT-PCR and [...] detected) result in this assay. Performed at: [facility] [id number] PhD Shalom Gonzalez Performed By: #### S ARS-CoV-2, GEORGE, [id number] #### [facility] [address] [place] [address] Family Medicine Phone Visit - Telehealthon 05-22-2021 [...] 6 months ago. Has been using DayQuil [id number] with moderate improvement. Review of Systems Fatigue: [...] only communication with the patient located at [address] [place] [phone], with no one else. If it is [...] Patient verbalized understanding Ordered: Rapid COVID Antigen ([facility]) Telephone Est 5 to 10 minutes [id number] 2. Fatigue (R53.83: Other fatigue) see above plan, rule out covid. Ordered: Rapid COVID Antigen ([facility]) Telephone Est 5 to 10 minutes [id number] 3. BMI 27.0-27.9,adult (Z68.27: Body mass index [...] 1035F Telephone Est 5 to 10 minutes 86229 Follow-up With When Contact Information Irma Burt [...] Methamphetamines, Pre (more content not included)... Normal [facility] Comment on above: Result Comment: Elec [...] height. This can be done either in [place] ([place] or metric measurements. Note that charts are available to help you find your BMI quickly and easily without having to do these calculations yourself. To calculate your BMI in [place] ([place] measurements, your health care provider will: [...] problems. ? BMI can be measured using Nigerian measurements or metric measurements. ? To interpret [...] 01/16/2005 Document Revised: 04/19/2018 Document Reviewed: 03/20/2018 [employer] Patient Education ? 2019 [employer] [facility] Physician Orderon 04-27-2021 Physician Order [id number] 8#[id number] [facility] Coding Summary.on 11-04-2020 Coding Summary. CD:[id number]:[id number] XGo6jYr+PGhlYWQ+PE1 SSSPlU69siNKlsE8AK7 xFBG3GDOSBFUOZLQ0GS H9iuJX0QEmrS0YhwjHi XuelzTOlYS23QXo4HSN 0yWweZWgfxM7oeTKgR2 r4ZzNyPJ96aZ74AIwwI CPvIqL3PjQtpqbpzLTp L8coUrTftYEjLgd+PHR hYmxlIHdpZHRoPScxMD AyEoAgxZgmPL1pZi5sZ GVyLWNvbGxhcHNlOiBj q1wiFWNxZHwiHF4kqSd iQ6IooQG8XNDqg8v9Ao 48dHI+ARFvGAD2pWzxN Ykdq193BtOwh5jpZXR9 tNVtPPdeXFK4Z63qm5E 1VUNdDOPtGFS4uOB3zO 2meSortrfrS4WnwPQcM sQ4KTN1cXFkbH6vmKnp eulsoE6sOrd+J16VDD4 TNYVJEY9IPwy8H5TiEt wvdHI+DQ30VXHgWY23w RIhdTFkm9bcxIt9PlXu XDIgRXJ8uUjqIUshl9D yXAHcT81taJSpi2O4PX QesKaiqXKqTgIilWY1x F4dMZvhcxxwi5xxlkjh Anehr7czfq03qS99L57 aXYgnJVOaUGH5MMLmKJ FzqKbrhg7zeV7mCi8+I Yiss7eyj2ykaEt4KeUs NOUqojOttKbrLBI4u5Y pKo93G0XfcEdcx2HhFu h7ky88bGEww3N5lPG0O VtnBKRwqY9dQNbeDdV9 DTQcJpPtlD79yRSnBIl nNj1ykHsdjNwyHC1cRV OhrogdKAVbrM3xPHPft HQwrLdbQD4iKYTzfryk d616ItVyITN1IQJrsPJ cM7UsfY8gItMvYSMwYP NaR2PcsFDcSAiaR986N PjpGeU8QDDihcAzO2Rd JXZjdVicXiI5t8E0Fa2 Xu8XoloslJKH6PKjyPH H7PcT8QfQjPfQ5T3TsI ls1IDGrrLatBC3cZ6Zf UCSakwhueoyjcCQ9JGD gVTXdeV43lYArFFjgBz 0wa4G4v714OQZdHFIua B39Rk7qrNtfUBZsnITI bQ7ymbgsu1bkjwluJvU jQYPzXOn0JGx6XDCxmS bnMlUkGAJ0PuH8DMT4v FXhjZ1qdRwxjmiajT2z Oyc+U50dhF2bHHY4RXV 9twkvFRYjzwIkJI78CX 24S2KzEqjjvLYdoPQ+P MRtruCenHbpCT1hXmVd b7brc1CeFTkfN0XzSNT wTMnnNra9BZHpKZL7mS D0fW5eGQDzCMomm4R8o UL1B9FdplOudu6kb8xn NCQpUYapO43poYNef4X 1VCDhvSY2PPJbcMjnQy VaxJ40Uww+PGNvbGdyb 0TeMhiqi7qog7nmqFv1 IjMwJSIgdmFsaWduPSJ 6b2XgOn81P23mTFcfLR RoPSIxNSUiIHZhbGlnb g8ckL9nJf1+PGNvbCB3 mPC4iJ2rOUPgOdH5GWc zU380OoOtwRBnVpacu5 yij1yzuTq9FfTkZPSsn oGzjOcjDKZ8l9OnOe38 N87tDRyoPFRaQYDbIEZ pQKKoxNjanm4lwQ1cTt 8+AQ0nu9ywcl97mA58u HI+OFMtJKY6sOijXCes LRJpxB3aSQopAwK7HKG hRoPbmW90lMPlSMrdVj 1gcLyxyCyoCL9nLFEkx cukr760DrIkm1qmXPTr cDKgPCmfQBC0Y53jl6A 2GDFhHWSxLPI4cKM5rH 1hbGlnbjogbGVmdDsgd qFyfMyuPHcdWRqkV511 IHRvcDsnPlBhdGllbnQ sZhLxHDu1I9DoCgn5HC DxkJqfPE7lrNWfDBnfL m3deJbcyDxlSQ4sXKFt fphcq664WbJwf9deGHN tyIGmOReeBJK7Y95ke2 J6IZArAWZzNFN5vJN0a J5vqIobmxeuaCGdjEfi nnQqbWwlQVvqKGaaF61 6IHRvcDsnPkJpcnRoIE LuvHO9GH31EJ85tQBrf 9I8hJP3E8HrEFKyyptw yibpfVQ7VIWkCFMujO4 7Fw9bkDcbSl4sYGYxWN G6VJVriGUwN2LodO7kO wLxTIYcRAIeR4BbjFXy TBzqC721PYlvOrZ9FAS pjsDtY2KiWMHshMhiBi U7g7X3Da5RL3G9RX70Q I06tMEoc7B7sUG6J7Aw NLQytjubpttytJE5AOU vGHAwcP95Uh1boPxaQa 1cPIDeWHS7PQAfqKYmI 7InzR3gJwVzVYNhKRSx A3QzmKQwPEsrI998BOi yGcI6XBVqywVtM6StJD PdlKpaHgO0s9P5Zb2MK Rm8IP59HD22tZNwq6B6 gMK1O4GwLCZisndmglf qvDP6UUKwWMLvtT75Kw 8zmSwiIf5pKGTxJZL5M CJvqANmP8RlwU5yOkIn IYJdWOYwG5QctUAsFYq tB205CIirMxB3EPZdgt VdH8VnLQYbfHbbGkV8e 2S0Wb5HQDCxCJ47BRD5 wEK3US04YS19H9PeDxr vdGFibGU+PHRhYmxlIH dpZHRoPScxMDAlJyBzd LehLF9mUt6dAPOyVYKd rFmeuPMwDzWjz7qiIGO fFZroYQ3sfSzeG3BylP D9JMEzj5b1Qv14O10qI 3JvdXA+HFCtvRV0tZX0 oE2jXmEyArT4PIvkF34 7KyJcpQEdVqwsm6qtw2 nodCr8OnQ9XOPbcbDvp XgyTRI7f5SrPj21K74n IHdpZHRoPSIxNSUiIHZ sqIqnbe6uyB5gEy4+PG IcwKS2lQN7sI7mQjIcV zO4PGdcS208DnOemOTx Wfonx9jmy6bkhQy6IuP uYFPrfeQykMfrWBT9g1 BhLr99G5VikEvnn2OwM lg8iv55jAFjp0T8vGH3 A9DxNHFjpfdpvXMltYc mTB3nRQUrkdhkJHFxzE 1xCUYzF4e2IxHqIzM0T RkkY5FvbmH1FHHhvVWj FBguKYA2P60uh2D3WMC yJWLgPJV6pJU2qV9giF lnbjogbGVmdDsgdmVyd JkpORlhLSrjH587FGDm xLbtHSGpmJ8oOHVjeOB wvDytVG5zISZcaaacWc hQGC4BJQCLTbczHJvUP RMJAXZZWT94YG79oFUw e2U7zIP6T7MrKPZatyc jcjmouGK6JDUpEFYziT 41oHKfXYtfKk6in7O6d 907YMIaYJSenL81Hh5q pSwfKRPsjDJZwL9joft sa7ajtiynAmPbASPqZH v9XQj8SYKzgTedPwUwB CS4UaW1VFH1qQMsoZ9r sZbxpdaneV8iMon+MTI zFZdvCOl1RIjgzRO+PH WoYOV2jDykNRyxGFTvn Z8gPQWhR8n6JrHpGiX2 EUdiK7DcSOEjhdbsVz8 4lR7lFvHxFhY7DNhgG2 JssfY4ODYafEEeZAbwD ON0Y49os1Z2NMNhELKb NMZ5gPO6iH6fyEvkylw gbGVmdDsgdmVydGljYW mlFXwnM007MTRrxFtlS rA6ZGkgFMLtHR27OK01 qPIki4M4tZA9C0TtRTV kimxezwfofLD8JPMyCI GkgQ71mCAsTPayHi0ng 1Y0w077IVEoZUDthH13 Ud9mlKnfJQJgjYCYaY1 widamy8rmbhvpGxSeQR ViTPq4GSb1HROxcMhfB vTqGPQ1KwZ9GWP8rFWx yS6iiQfzucoxoO1gPbz +FrJaNKvhMS96FI78oD Haa9Z4nGN6R4VgNGDwk ojtbangrRZ1OLPwUKJe sZ47cOKdTTwtQo9xl0A 4n143JHEwSCZrxK33Vz 0uaOwjWGVplYMLcY3vw smcs9pxwbciVnFjASJd GAr3YTx8KCLvjFpxOmO qOFM3GgJ7EIQ8jBDavR 7mpRbbmrjfdH0kUcs+T 0D4yBX1yHWliIhrgTA+ XA90eo72Y6YfQohwNoa 6ZCQmXGC1bMA2uV5nDR ViJPavf4L3yGJ0X5Kij oVbrw7qe2tuRLTqREie P75soXFub0D0WNHmjRT 5RXMsjSieDfDowT32Nj c+MZSgzQtfu6MySkruw 4vum8jytLo0LwBhZIVm xhWzuFzzMWL5s8NwAy5 7S70rTZmoOMZdUUMeIU EpFDCnmXqjfk9fbW1mU i8+LCBqnUW6iZW7qK8p DkExQuW2IAsiZ829ZmV knGMuPopew0non5hegU a5CbXmURVglwRvoPuhD DT9z4XoXq26Q6BbwSwz u2HvRau1uq48hQIie7P 8mFH1B4KiDDByhhfdjY AnmJaaMF2pJDYrbepvM ITzvO0gGMEpG7z7OzJg KmH8KBjdU9UwecW9OES peTScPVBeuNCVsJ6kgu hwq1tcxrfiJbCyNBXyB Zb2DLe3UBNcfPuuKyXc XNG1MrL6RBB3oAJefQ8 ndTigartiqI1eKpf+UG j8l1adaUKnSD4tiZS7O A03UU25lEXyd4E5gVG0 N0UkWOKenxsnxdegrGO 1DMDbJEMdnO98Dq7ztM hfHf2dKJJqYTQ9TFVgc KEkJ5HnjK4yEhQoBYSi SMXxF3SazSWyPCpgV53 0ZCgxDkE1SSNlkdLhV4 FxKLTdjUzyLzR9i8W0J q0GUW64WH01BZ75oUCh c3L4uSM3J5AxKKJjgst lvtxcoMW7YSUhBEFzrX 38Yu0qtRxqYl5aXKXuN BH8JEKhvSShE0AzzT2d TfWvHPRrKWWsX0FzwHK nDIqjT686VJotClC6NS HuerZhW3CyHLCvwFieE dJ9m4Q2Yz7KNi83FB08 BV34gHZuk0A9cOW9U3D uMIOjrhpviljfnVZ0MM NtFVXwxU05Il7snKdtT z5mZVGjFYO5MDMshFTy E6XlhD9kZpVqLABpETG mK6AwfKAaJXfgG475HS kdScK4LGWmkvKyU6QeO HInpRngAiW6k7O1Ic6M MQygrcz5Z1QxLcrboGS +OB04UPMfAM08pAPcuW Ndi8bwaZj7LbIuPPXpW IK9mDraZPduc7PjSNPn Y29s (more content not included)... Normal [facility] CT Chest w/ Contraston 10-29 CT [...] 300 Contrast amount in ml's: 100 Normal [facility] Coding Summary.on 10-28-2020 Coding Summary. CD:[id number] KEq7jAq+PGhlYWQ+PE1 IWAOoO88bsRAdiK7BP5 eHSP5NJEJEPRXFXP1QY B1htGG6SAgeM2RfhnSa PcpmcDQzUW94LGr7YGC 4oJxhTOxziS7fcDOpS1 k4KoYyUV01qK93HTrbZ BAfKhS2ZwYnpkzlpBXe Q3jzThYgwNGdQxc+PHR hYmxlIHdpZHRoPScxMD JpQoJdqAwtOU0kFq6dE GVyLWNvbGxhcHNlOiBj h2nzRLArUNluCT9cxTl cC7BzjGJ0NIHwx1a2Vj 48dHI+CCVnGGR9fHprT Seds286LmBsl5fiNJZ6 xKFxSEccHZC1J27vo1W 1DGQlWKAcDOG4tQB3rQ 0kkXswugevT2TrmWOfA cJ9YAI7uJIxlB8msAwc yddsgA3qHyh+A10BYY3 ZAEQGCS2MVdu8X2EqFd wvdHI+PV29USYuRB92h YWzdLEws3fyiDv5LkKf WYZjLTN3sSipYAxxv6H lNOWtK10kjJNtm6S7LB JkiSivnFBuUeZqmNG5d N8mDVwtnmwoi7yndupo Oqdvb0nink42fH01D76 sKPciSUSzXOQ2BAWcNP AwzJzjew7tcM8oUh3+I Quba5qop7rxfSj9OeLb DUUlocIdiCmlOWV5c9I xJn13S9EzvYpcz5UwCn w7vi90rIWfl5S7jOM8H RxxMJNepM8xCZdrBgI9 NEOpNwEecJ89uOBnQDz aIz7rgWwzvCtzBT6iIL PvhjgdDXSznX6jNYGeq YZvlOdrUC2kPMCsukuh y568TjKiKME2OBYxsOU bA6QpmY6uLrIfNUSfKZ KpH3OiyZRuSBynM726M WujOkU5FWKozxEzV5Ig ZKFgjQzeFaC4e1K4Rg6 Tn9YhthogHKI2VLxeLS I7EtArNrUdTrV6F5VcT pk8BMCirRvgEJ0zG1Ej EOVsytlrhmawjHS8BPT mKGGbhA54cHUuKQuvCv 9ie3C8d664GXWpTHTvi O66Ru9waTerGQShvSFZ xU2nzbpgm3jetvkeBnN mTZVaAZc9ZUe4EEFvmD rfMsPpSXU7TjB0IMR5w FMclZ8ayTrydlcxfR0b Oyc+Q98plY8eMNF0BDK 0vpptAGZtoaXkGU40VA 93X6MsFbjbpKMfvLK+P SUdypNehWruFV9oGpFh m5jlz3BpROpaR7RiWZI aCTloSzw6MTXpETT3uP G4sA4gGMJyXDmib6I0n JB7T8RoicLtsv9hd4fg TWYuFFrmS52knZLai4I 9CEBwkCM4IMHykHwxJz MgqO58Zuf+PGNvbGdyb 6FmImlam0fzc1isrXa1 IjMwJSIgdmFsaWduPSJ 5l6AtAu09S83fAMzgKL RoPSIxNSUiIHZhbGlnb d5jxB0kWp3+PGNvbCB3 xJN6rY3nCKZoXtY9LOd oD840WxQtbCPcFvnci1 oof5mckHf4NeSiHTEjf oVudTdjLOA3b7ReRq82 E79jPCdfJSGdNZVqDKD lRZZnzFnjhn7mdR5lBv 8+GZ6om8zjkt41kJ28f HI+ZMFpBGN8lQqpKYmw KJAscT9eMFwqXrR3NAF uOtKrwP75tJLvLVsmYg 3fbOpnfOukPB1jXVOhd pkrn336BnMyi4fjJYTm dRRrJIzjYZZ4W02ml1J 4WGHmSAKqAEM5vHZ5gV 1hbGlnbjogbGVmdDsgd wQxbQowMCghMSxhC188 IHRvcDsnPlBhdGllbnQ kQfPjUKq9E6SoBxd0ML CcsFrlLB4agREuQZhmL k0laCkasIeoTI5lIPOo zhnbd387LkMnz0qdISU mlIOyNEglPEU1H73ec5 O1DDBdBTEeGYB7eFS4c J7lzFsmbgxmoFWxxBip noFoiUjaOYzbLZgnS71 6IHRvcDsnPkJpcnRoIE WsgCW5AP28CL41pXNbs 6H9cXO7C5YjFWLdggzu iaddaWS1RTFxSYRylL6 7Os3ocCeaUb0dHVWjEV Z3MIVuxDFhN1KaxT1dP oHqBNFlNGDlV7SfrWXi IHlrC775FIoqIlD7DIK uqqJyS1ZwTJUqbMciFf V8b6A5Lf5FP8Z2AZ22I D36eYXdc3H5uYB8N6Zj JPKqbxjyygygdSC8VLF jOXTtwO17Oy1hzHwqVi 4xRPUhNRI5VEJieIBtL 6CzsG5eCfPnQUWjRRHv W2MpgAWoLOqtB061QCx eNcV5DLXigwLwK4FwTV CyqMqyKvU0q1R3Xk0BC Pb3QE52PQ72eSLzn9Z7 uGA0R1QpIHNijlgtskj gvTX7SQBzGRQvbK20Xa 1rdPhgXk0qJYTzSIQ8A QRuuIHaV5IfzJ3jDuVj HQZvTMCtE3OvxLDgULe oA296FHkxOvN0PHYoep KaD8QgNGJnvTahJrK7d 9X1Sl6DXVQaWJ49ZXM5 zBU0QP86AX61I7CuKep vdGFibGU+PHRhYmxlIH dpZHRoPScxMDAlJyBzd RpuZK9uBu0nQUUxELNq dRcihKTbUiOof6qlYLB bNXdsTD1eyBbtY5JjdB A2RPNej6a3Vc88U28eZ 3JvdXA+GEBzuHH0uCO6 aN5eJrXbWtA5BIkpC23 7NqXtsVMbOobdx1lqa1 jstEd8NlV5QDMrfvCnr KaxRYU1e6HaFe02W01v IHdpZHRoPSIxNSUiIHZ haAjknp7gwU9vQh6+PG HyzZE0cSK9yE3jXqZeM nG2ASbyD172GlZeoHCw Dbqvn1squ9daeZs3GnB xDSQvczBruKiySHN0l2 MvUs83U3LxbGirj0RfK jw0pe03pSLsj2S5xKW9 L4CxLKRathowvQAtySw dOK3xESSiayquYBQuqM 3fSBYjN2p1KoXgTyA0D DinI9BdcmF1WPGzxASy FKonSZB3Y92qc5X4OMQ zKUDxHOY1sGE4lB0sbA lnbjogbGVmdDsgdmVyd KnzEFrqJZzpR117QCNw fSjbWUEtqN7qXUVahGI gdNfvZI7hYNWokqseHq fOXM8MIRZRNjalVQvOF XVFLNYNDK64ZI08iZYm d6L7bKN4N5GoBKAdaye snhvgpPL2RUOtGFLqsE 37cAMwFGxfCs8eb1C1d 561EQItBBVrdZ98Bp9s cHrqBHMztONTvL4aezt ie8mcfkmzRfPpAGDvLZ w9AWy7ZPAuoGxlRtGjS PT3OoN4TKI8yAZnmY2y hNefqlcsbY8yOad+MTI oQNpvCLw8PKtivOJ+PH TcGJC6uUmwMXfmGNOek H5nCLGkR3a5VjGdXsF0 PLsyH0JlADIckrgaSr4 2oS9nHeMiZuL7VRgaO5 JlshI6LDCucNBzLOvgX ST8O81gh0E6WRJaDQXk UIF7hBK1yV8ysYeutvz gbGVmdDsgdmVydGljYW emYNakI762STEajIjzM yB2FDqnTHNeJO95GH83 yAQlm6U0yWJ0Q0TpTYD uzrlkquvvmSF7QSEoTE FljJ69gRUgDSalBk4mw 3R9f672LFGdFWQrtW51 Qz2avYpzWCJkgMXVqR7 jertyr3wbyljdPdUyEY CtEUb5CCp0WFXgmPmpF uKdSXV0PdQ5EOO5sXBc hB9uzPufdoavjV5gLut +YlNxGIiwVO12HE04uB Rui4L2uHL7K2WtXZZhz prcnxqniHL8UWJjMWUs dR22nWGzVGciRw3te7X 5r329CVKmZAOleR78Yh 5mpQffBFDfqDAZqM8pz zwmg2fbcquzIuNkJXIr HBq7OZy6YSJbrYwoGdR uSQB3YsD8AMM9bQTogR 2vaPiivndwzE6lHcb+T 1O3vTD4jQHtvRyenHZ+ CN58bv00H3XdRqjzEjv 8MOUcTIE1gBV6mQ7sCJ JuZEccv1J0uYL6V4Pbo uRwau0di0vxAEXnSOjh O71ooAXqb3K0UKIdsLH 2MNQalNlgOzBofJ47Cd c+AODxkRdjx9YdDnknc 3erj3smkGy6SxHbVFLs vfMbwEfwHRI7b7TuHw2 4T42fQKnnSQHyGWRbRH MmNTEffAsbmh1vaG1tP i8+AEOhkQS6ySS7dU8f PeKpLsX2QVbmL341IeZ clQJaWuefk3btg0kceZ w4JzKaKIQmkxPepJbzP FW1v7VgGy50F2KhsOta d0ErAif5uf28dOXxq1S 5eEF0J9QeKJVgmzxsvQ YczXjjPF9eSESwpzhtQ EWduO8nAZJbQ6d5JsTl WzL8QPotG1YyyyI6MGC itCEgEWEgxQUHoY6xex qsm9tpxrmbPhLmRIHyR Ow1ZOn0LENizNqmVaUj BMH7McC0CJL7mYYbkJ4 gdNijxnswsV6qSec+UG a5a5bwiYZuXU7faHT3L M91CW26dFSos4A5vCL7 B5LfVONnegzgouudiZH 5MAHvZRIvxV07Zb5suQ clXk2eNEInITD4TIJma QRrQ7YauS9oXfJlUCTw JUCvC0CvwXQeAXwyL78 3SWxeIsL8BNJmqgCfT8 RaKGLhzFdyRqP3c8X1M u2WIQ77GK65ME21dLRo n0A2bRP8P7YwPJFccav gaabhxDE9YQAiMIHuyC 32Pw1mpEwwQt6iSAFfX ZH1LLImmAEwA1DsyI2t HxGhIMGjJJVzH1JjdJH bNWosY590NOmkGpT9PO MjfeKgF4EmZGYewPikB jJ8t3M0Be4CXx14WK00 UJ82xFHap9U6yDH3S2Q iHVCddgtixocssVT5FB ZuQSIixJ04Dw7hfYikY j9aXTQbAAE7HXEzhZEy L7EksO3bAbMrIXUmWBR iJ0YcmMHgKXblB897QY zvNwV0XQVuobGiK6LoZ YTukIpjQyE3t4Z4Px5X DTvtlzu6S1JsIqscaTD +IH38HNMhPV13xSVlcC Krn1aanOw2NhPrFWZcZ MH5jTeaDPuxl3SbUOQr Y29s (more content not included)... [facility] Consent for Treatmenton Consent for Treatment [id number] 44#1.00CD:127 [facility] Physician Orderon 10-21-2020 Physician Order [id number] [id number]#1.00CD:127 [facility] Consent for Treatmenton Consent for Treatment [id number] [id number]#1.00CD:127 [facility] Physician Orderon 10-19-2020 Physician Order [id number]#1.00CD:127 [facility] XR Chest 2 Viewson 1 XR Chest [...] M.D. Transcribed by: SHAYNA Technologist: BECKI [facility] Vital Signs Date Time Vital Sign Value Performing Clinician Facility 07-26-2023 11:27-0500 Body height 170.2 cm Kaitlyn Jasso MD Work Phone: [facility] 06-12-2023 13:00-0500 Body height 170.18 cm Shun Hill Other [facility] Other 06-12-2023 13:00-0500 Body mass index (BMI) [Ratio] 35.24 kg/m2 Shun Hill Other [facility] Other 06-12-2023 13:00-0500 Body weight 102.06 kg Shun Hill Other [facility] Other 03-15-2023 12:29-0400 Diastolic blood pressure 89 mm[Hg] DO Irma Burt Work Phone: [facility] 03-15-2023 12:29-0400 Heart rate 70 /min DO Irma Burt Work Phone: [facility] 03-15-2023 12:29-0400 Respiratory rate 16 /min DO Irma Taverase Work Phone: [facility] 03-15-2023 12:29-0400 SaO2% (BldA) [Mass fraction] 100 % DO Irma Burt Work Phone: [facility] 03-15-2023 12:29-0400 Systolic blood pressure 132 mm[Hg] DO Irma Burt Work Phone: [facility] 03-15-2023 08:54-0400 Body height 170.18 cm DO Irma Burt Work Phone: [facility] 03-15-2023 08:54-0400 Body weight 90.71 kg DO Irma Taverase Work Phone: [facility] 02-08-2023 14:45-0400 Body height 170.18 cm Shun Hill Other [facility] Other 02-08-2023 14:45-0400 Body mass index (BMI) [Ratio] 34.92 kg/m2 Shun Hill Other [facility] Other 02-08-2023 14:45-0400 Body weight 101.15 kg Shun Hill Other [facility] Other 02-08-2023 14:45-0400 Diastolic blood pressure 80 mm[Hg] Shun Hill Other [facility] Other 02-08-2023 14:45-0400 Systolic blood pressure 131 mm[Hg] Shun Hill Other [facility] Other 01-16-2023 10:35-0400 Body height 170.18 cm Aydee Nadiya Other [facility] Other 01-16-2023 10:35-0400 Body mass index (BMI) [Ratio] 35.2 kg/m2 Aydee Nadiya Other [facility] Other 01-16-2023 10:35-0400 Body temperature 98.3 [degF] Aydee Nadiya Other [facility] Other 01-16-2023 10:35-0400 Body weight 101.97 kg Aydee Nadiya Other [facility] Other 01-16-2023 10:35-0400 Diastolic blood pressure 66 mm[Hg] Aydee Nadiya Other [facility] Other 01-16-2023 10:35-0400 Respiratory rate 18 /min Aydee Nadiya Other [facility] Other 01-16-2023 10:35-0400 SaO2% (BldA) [Mass fraction] 98 % Aydee Nadiya Other [facility] Other 01-16-2023 10:35-0400 Systolic blood pressure 105 mm[Hg] Aydee Nadiya Other [facility] Other 09-23-2022 10:45-0400 Body height 170.18 cm Aydee Nadiya Other [facility] Other 09-23-2022 10:45-0400 Body mass index (BMI) [Ratio] 35.13 kg/m2 Aydee Nadiya Other [facility] Other 09-23-2022 10:45-0400 Body temperature 99.2 [degF] Aydee Nadiya Other [facility] Other 09-23-2022 10:45-0400 Body weight 101.74 kg Aydee Nadiya Other [facility] Other 09-23-2022 10:45-0400 Diastolic blood pressure 80 mm[Hg] Aydee Nadiya Other [facility] Other 09-23-2022 10:45-0400 Respiratory rate 18 /min Aydee Nadiya Other [facility] Other 09-23-2022 10:45-0400 SaO2% (BldA) [Mass fraction] 98 % Aydee Nadiya Other [facility] Other 09-23-2022 10:45-0400 Systolic blood pressure 125 mm[Hg] Aydee Nadiya Other [facility] Other 09-04-2022 11:20-0400 Body height 170.18 cm Aydee Nadiya Other [facility] Other 09-04-2022 11:20-0400 Body mass index (BMI) [Ratio] 31.32 kg/m2 Aydee Nadiya Other [facility] Other 09-04-2022 11:20-0400 Body temperature 97.8 [degF] Aydee Nadiya Other [facility] Other 09-04-2022 11:20-0400 Body weight 90.72 kg Aydee Nadiya Other [facility] Other 09-04-2022 11:20-0400 Respiratory rate 18 /min Aydee Hearn Other [facility] Other 09-04-2022 11:20-0400 SaO2% (BldA) [Mass fraction] 99 % Aydee Hearn Other [facility] Other Encounters Encounter Date Encounter Type Care Provider Facility Start: 11-21-2023 End: 11-21-2023 ambulatory SAGAR LUKE Not Available Start: 11-14-2023 End: 11-14-2023 ambulatory DILSHAD FRAGA [facility] Start: 11-07-2023 End: 11-07-2023 ambulatory SAGAR LUKE Not Available Start: 11-07-2023 End: 11-07-2023 ambulatory ERA MCMANUS [facility] Start: 10-22-2023 End: 10-26-2023 ambulatory KAITLYN JASSO [facility] Start: 10-22-2023 End: 10-22-2023 ambulatory SAGAR R LUKE [facility] Start: 10-09-2023 End: 10-09-2023 ambulatory IRMA YI Not Available Start: 10-01-2023 End: 10-01-2023 ambulatory CATHERINE GASPAR [facility] Start: 09-20-2023 End: 09-21-2023 ambulatory [facility] Start: 09-18-2023 End: 09-18-2023 ambulatory SAGAR LUKE Not Available Start: 09-17-2023 End: 09-17-2023 ambulatory SAGAR R LUKE [facility] Start: 09-17-2023 End: 09-17-2023 ambulatory KAITLYN ENON [facility] Start: 08-31-2023 End: 09-04-2023 ambulatory FROYLAN Rascon [facility] Start: 08-15-2023 End: 08-15-2023 ambulatory IRMA YI Not Available Start: 07-26-2023 Chart abstracting Kaitlyn Jasso MD Work Phone: [facility] Start: 07-18-2023 End: 07-18-2023 ambulatory SAGAR BOYDO Not Available Start: 06-20-2023 End: 06-20-2023 ambulatory Shun Hill Other [facility] Other Start: 06-20-2023 Telephone encounter Shun Moncada ck [facility] Start: 06-19-2023 End: 06-19-2023 ambulatory SAGAR BOYDO Not Available Start: 06-12-2023 End: 06-12-2023 ambulatory Shun Hill Other [facility] Other Start: 06-12-2023 Office outpatient vi sit 15 minutes Shun Hill [facility] Start: 05-01-2023 End: 05-01-2023 ambulatory Shun Hill Facility:[facility] Start: 05-01-2023 End: 05-01-2023 ambulatory DO Irma D Burt Work Phone: [facility] Work Phone: Start: 05-01-2023 End: 05-01-2023 Patient encounter procedure DO Irma Burt Work Phone: [facility] Work Phone: Start: 04-10-2023 End: 04-10-2023 ambulatory Shun Hill Facility:[facility] Start: 04-10-2023 End: 04-10-2023 ambulatory DO Irma D Burt Work Phone: [facility] Work Phone: Start: 04-10-2023 End: 04-10-2023 Patient encounter procedure DO Irma Burt Work Phone: [facility] [place] Work Phone: Start: 04-06-2023 End: 04-06-2023 ambulatory Shun Hill Other [facility] Other Start: 04-06-2023 Telephone encounter Shun infante [facility] Start: 03-20-2023 End: 03-20-2023 ambulatory Shun Hill Other [facility] Other Start: 03-20-2023 Telephone encounter Shun infante [facility] Start: 03-19-2023 End: 03-19-2023 ambulatory Shun Hill Other [facility] Other Start: 03-19-2023 Telephone encounter Shun infante [facility] Start: 03-15-2023 End: 03-15-2023 ambulatory Shun Pascale Liz Facility:[facility] Start: 03-15-2023 End: 03-15-2023 Admission to same day surgery center DO Irma Burt Work Phone: [facility] Work Phone: Start: 03-15-2023 End: 03-15-2023 ambulatory DO Irma Burt Work Phone: [facility] Work Phone: Start: 02-26-2023 End: 02-26-2023 ambulatory Shun Liz Other [facility] Other Start: 02-26-2023 Telephone encounter Shun infante [facility] Start: 02-08-2023 End: 02-08-2023 ambulatory Shun Liz Other [facility] Other Start: 02-08-2023 Office outpatient ne w 45 minutes Shun Haleormack [facility] Start: 01-16-2023 End: 01-16-2023 ambulatory Aydee eHarn Other [facility] Other Start: 01-16-2023 Office outpatient vi sit 15 minutes Aydee Hearn [facility] Start: 09-23-2022 End: 09-23-2022 ambulatory Aydeechelsea Hearn Other [facility] Other Start: 09-23-2022 Office outpatient vi sit 15 minutes Aydeechelsea Hearn [facility] Start: 09-04-2022 End: 09-04-2022 ambulatory Aydee Hearn Other [facility] Other Start: 09-04-2022 Nursing evaluation o f patient and report Aydee Hearn [facility] Start: 07-12-2022 End: 07-12-2022 ambulatory Perla Yulisa Other [facility] Other Start: 07-12-2022 Office outpatient vi sit 5 minutes Perla Yulisa [facility] Start: 07-07-2022 End: 07-07-2022 ambulatory Aydee Hearn Other [facility] Other Start: 07-07-2022 Encounter for other preprocedural examination Aydee Hearn [facility] Start: 07-07-2022 Nursing evaluation o f patient and report Aydee Hearn [facility] Start: 02-03-2022 End: 02-03-2022 ambulatory Maria Guadalupe Powers Other [facility] Other Start: 02-03-2022 Office outpatient vi sit [...] Work Phone: Start: 03-15-2023 Colonoscopy DO Irma lassiter Work Phone: Start: 12-13-2022 HIV 1&2 [...] Td Vaccines (3 - Td or Tdap) [facility] Start: 09-17-2023 End: 09-17-2023 Patient encounter procedure 09/17/2023 8:45 AM EDT Office Visit [facility] [address] [place] [id number] Kaitlyn Jasso MD [address] [place] [address] [facility] Start: 09-17-2023 End: 09-17-2023 Patient encounter procedure 09/17/2023 7:30 AM EDT Appointment [facility] [address] [place] [id number] [facility] Start: 05-01-2023 [facility] Start: 03-15-2023 [facility] Start: 01-19-2023 COVID-19 Vaccine ( season) COVID-19 Vaccine () [facility] Start: 01-19-2023 Influenza vaccination Influenza Vacc ine [facility] Start: 12-30-2021 Adult BMI Screening Adult BMI Screen ing [facility] Start: 2006 Screening for malign ant neoplasm of cervix Pap Smear [facility] Start: 1997 Depression Screening Depression Scre ening [facility] Start: 1997 Tobacco Screening Tobacco Screening [facility] Immunizations Immunization Date Immunization Notes Care Provider Fa cility 02-03-2020 influenza virus vaccine, unspecified formulation Kaitlyn Jasso MD Work Phone: [facility] Payers Date Payer Category Payer Private Health Insurance [id number] 2023 Self-pay [id number] 2018 Private Health Insurance [employer] A ETNA POS II [id number] 2018-Present [phone] [address] [place] [address] [id number] 1985 Unknown [id number] 2.840.1.009708.3.579.2 .1285 1985 Unknown [id number] 2.840.1.832182.3.579.2 .1285 1985 Unknown [id number] 2.840.1.483007.3.579.2 .1285 1985 Unknown [id number] 2.840.1.354403.3.579.2 .1285 1985 Unknown [id number] 2.840.1.674253.3.579.2 .1285 1985 Unknown [id number] 2.840.1.746227.3.579.2 .1285 1985 Unknown [id number] 2.16.840.1.795465.3.579.2 .1285 1985 Unknown [id number] 2.16840.1.757995.3.579.2 .1285 1985 Unknown [id number] 2.840.1.913512.3.579.2 .1285 1985 Unknown [id number] 2.16840.1.316232.3.579.2 .1259 1985 Unknown [id number] 2.16840.1.996915.3.579.2 .1258 1985 Unknown [id number] 2.16840.1.983215.3.579.2 .1258 1985 Unknown [id number] 2.16840.1.790001.3.579.2 .1258 1985 Unknown [id number] 2.16840.1.910648.3.579.2 .1258 1985 Unknown [id number] 2.16840.1.623968.3.579.2 .1258 1985 Unknown [id number] 2.840.1.461540.3.579.2 .1259 Medicaid [facility] [id number] Private Health Insurance [id number] Unknown [facility] [id number] Unknown [id number] 840.1.023985.3.579.2 .531 Unknown [id number] 840.1.001074.3.579.2 .531 Unknown [id number] 84.1.416621.3.579.2 .531 Social History Date Type Detail Facility Start: 06-30-2020 End: 07-26-2023 Sex Assigned At [facility] Other Start: 03-15-2023 End: 03-15-2023 Tobacco smoking status NHIS Ex-smoker (finding) [facility] Start: 1985 Sex Assigned At Female [facility] Start: 11-17-2020 Tobacco smoking stat us CAIS Smokes tobacco daily [facility] History of tobacco use Tobacco U se Types Packs/Day Years Used Date Smoking Tobacco: Every Day Vaping/E-cigarettes Smokeless Tobacco: Never [facility] Start: 11-17-2020 Tobacco use and exposure Smokeless tobacco non-user [facility] Start: 07-26-2023 Alcohol intake Current drinke r of alcohol (finding) [facility] Start: 06-30-2020 End: 07-26-2023 History of Social function [facility] Childcare Unknown [facility] Start: 11-17-2020 Alcohol Comment social [facility] Start: 05-04-2023 [facility] Start: 1985 Sex Assigned At Not on file P [facility] Goals Date Patient Goal Desired Activity [...] Mayelin Pinto DO on 08/31/2023 11:23 AM [facility] 06-12-2023 Evaluation note Encounter Date Diagnosis Assessment Notes May, Diarrhea (ICD-10 - R19.7) Patient reports that she is about 7-8 weeks gestational Patient reports improvement on Creon with occasional flare Patient reports that she is taking a fiber supplement May, Fatty liver (ICD-10 - K76.0) Patient did have a FibroScan that indicates fatty liver and minimal scaring, this will be reviewed [facility] Other 11-17-2023 Evaluation note* Encounter Date Diagnosis Assessment Notes Treatment Notes Treatment Clinical Notes Mar, Exocrine pancreatic insufficiency (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) [facility] Other 10-31-2023 Evaluation note* Encounter Date Diagnosis Assessment Notes Treatment Notes Treatment Clinical Notes Feb, Alternating constipation and diarrhea (ICD-10 - R19.8) Feb, Fecal urgency (ICD-10 - R15.2) [facility] Other 10-30-2023 Evaluation note* Encounter Date Diagnosis Assessment Notes Treatment Notes Treatment Clinical Notes Feb, Alternating constipation and diarrhea (ICD-10 - R19.8) [facility] Other 10-26-2023 Procedure [facility]10-09-2023 Evaluation note* Encounter Date Diagnosis Assessment Notes Treatment Notes Treatment Clinical Notes Feb, Alternating constipation and diarrhea (ICD-10 - R19.8) [facility] Other 09-21-2023 Evaluation note* Encounter Date Diagnosis Assessment Notes Treatment Notes Treatment Clinical Notes Jan, Alternating constipation and diarrhea (ICD-10 - R19.8) WORSENING DIARRHEA AND CONSTIPATION OVER THE PAST YEAR. DOES HAVE SOME NOCTURNAL AWAKENINGS WITH THE DIARRHEA. CAN GO 4-5 DAYS WITH OUT A BOWEL MOVEMENT WHEN SHE IS CONSTIPATED. WILL ORDER IBS WORK UP WILL PROCEED WITH COLONOSCOPY [facility] Other 08-29-2023 Evaluation note* Encounter Date Diagnosis [...] no improvement in 2 to 3 days [facility] Other 2023 Evaluation note* Encounter Date Diagnosis [...] no improvement in 2 to 3 days [facility] Other 04-17-2023 Evaluation note* Encounter Date Diagnosis Assessment Notes Treatment Notes Treatment Clinical Notes Aug, Contact with and (suspected) exposure to other viral communicable diseases (ICD-10 - Z20.828) [facility] Other 02-22-2023 Evaluation note* Encounter Date Diagnosis Assessment Notes Treatment Notes Treatment Clinical Notes Jun, Contact with and (suspected) exposure to covid-19 (ICD-10 - Z20.822) [facility] Other 02-17-2023 Evaluation note* Encounter Date Diagnosis Assessment Notes Treatment Notes Treatment Clinical Notes Jun, Preoperative clearance (ICD-10 - Z01.818) [facility] Other 09-16-2022 Evaluation note* Encounter Date Diagnosis Assessment Notes Treatment Notes Treatment Clinical Notes Jan, Contact with and (suspected) exposure to covid-19 (ICD-10 - Z20.822) [facility] Other Evaluation note* Diagnosis Onset Date Resolution Status Diarrhea acute [facility] Work Phone: Evaluation noteNo InformationNort [employer] Other History general Narrative - Reported* Type Description Date Medical History ANXIETY AND DEPRESSION [facility] Other Hospital Discharge instructions Additional Instructions DISCHARGE [...] if you have any problems. 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 Other Summary Purpose Family History No Family [...] and content) DATE CREATED AUTHOR [facility]/2021 [facility] DATE CREATED AUTHOR AUTHOR'S ORGANIZ ATION 05/09/2023 [facility] DATE CREATED AUTHOR AUTHOR'S ORGANIZ ATION 09/22/2023 [facility] DATE CREATED AUTHOR AUTHOR'S ORGANIZ ATION 11/15/2023 [facility] DATE CREATED AUTHOR AUTHOR'S ORGANIZ ATION 11/23/2023 [facility] EPIC REASON FOR VISIT [...] Active Shun Hill MD Attending Provider Active Recovery Agent Relationship Specialty Start Date End Date No Pcp, [place] [address] PCP - General Family Medicine 11/18/20 FOR [...] BE BASED ON THE PRIMARY CLINICAL RECORDS. [facility]. provides no warranty or guarantee of the accuracy or completeness of information in this document.
[2023-12-06 17:19] VITALS: BP 116/72; PULSE 107
== END 2023-12-06 18:30 | disposition home or self-care (01) ==
LOC: FBCO 07:03 → FBC 17:13
PROVIDERS: Visit Provider Obstetrics & Gynecology
DX: Z31.83 Encounter for assisted reproductive fertility procedure cycle (principal); O09.523 Supervision of elderly multigravida, third trimester
CPT/HCPCS: 59025

== ENCOUNTER 2023-12-08 20:55 | Observation (INO) | payer OTHER, SELFPAY ==
--- OUTSIDE RECORDS SUMMARY | 2023-12-08 21:01 | XMS_ITS | CCD ---
Author Organization [facility]form [facility] Care Team Providers Care Color Card Maker Name Role Phone Maria Guadalupe Powers Unavailable NadiyaAydee anderson Unavailable Perla Márquez Unavailable Shun Hill Unavailable MD Shun Hill Attending Provider [phone] DO Irma Burt Primary Care Provider MD Shun Hill Attending Provider [phone] DO Irma Burt Primary Care Provider [phone] Shun Hill Admitting Unavailabl Irma Broussard Primary Care Unavailable Shun Hill Attending Unavailabl Shun Choudhury Attending Unavailabl Suhn Choudhury Admitting Unavailabl Irma Broussard Primary Care Unavailable Shun Hill Admitting UnavailIrma Elliott Primary Care Unavailable Shun Hill Attending Unavailabl e No Pcp, No Pcp Primary Care Provider UnavailFROYLAN Carty Referring Unavailable NO PCP, NO PCP Primary Care Unavailable JASSO, KAITLYN Referring Unavailable NO PCP, NO PCP Primary Care Unavailable LUKE, SAGAR Attending Unavailable LUKE, SAGAR Attending Unavailable IRMA YI Attending Unavailable LUKE, SAGAR Attending Unavailable KDIRMA ERICKSON Attending Unavailable LUKE, SAGAR Attending Unavailable LUKE, SAGAR Attending Unavailable LUKE, SAGAR R Referring Unavailable [...] PCP, NO PCP Primary Care Unavailable ERA MCMANUS Attending Unavailable LUKE, SAGAR R Referring Unavailable NO PCP, NO PCP Primary Care Unavailable DILSHAD FRAGA Attending Unavailable LUKE, SAGAR R Referring Unavailable NO PCP, NO PCP Primary Care Unavailable LUKE, SAGAR R Referring Unavailable NO PCP, NO PCP Primary Care Unavailable JASSO, KAITLYN Attending Unavailable SREE GORMAN Referring Unavailable NO PCP, NO PCP Primary Care Unavailable Medications Current Medications Medication Drug Class(es) Dates Sig (Normalized) Sig (Original) amoxicillin 500 mg oral capsule (2 sources) Penicillin-class Antibacterial Start: 07-26-2022 take 1 capsule by mouth every eight hours Amoxicillin 500 MG 1 capsule Orally three times a day for 10 day(s) Jul, Active amylase 286365 unt / lipase 76346 unt / protease [id number] unt delayed release oral capsule (3 sources) Start: 04-06-2023 take 2 capsules by mouth three times daily at mealtime Creon [id number] UNIT 2 capsules Orally three times a [...] 1 tablet by mouth twice daily Sutab 5929-055-363 MG 12 tablets the first dose the [...] 5 day(s) September, Not-Taking 84 hr estradiol 0.70581 mg/hr transdermal system (4 sources) Estrogen take [...] foot, initial encounter] Onset: 08-31-2023 Episodic Diabetes mellitus without complication (1 source) Diabetes mellitus Onset: 11-30-2023 Chronic Diabetes or abnormal glucose tolerance complicating ; [...] complications of (1 source) Obesity complicating , unspecified trimester; Translations: [Obesity complicating , unspecified trimester] Onset: 11-30-2023 Chronic Other complications of (1 source) Obesity complicating , second trimester; Translations: [Obesity complicating , second trimester] Onset: 09-17-2023 Chronic Other complications of (2 sources) Supervision of with other poor reproductive or obstetric history, second trimester; Translations: [Supervision of with other poor reproductive or obstetric history, second trimester] Onset: 09-17-2023 Episodic Other complications of (1 source) Supervision of resulting from assisted reproductive technology, third trimester; Translations: [Supervision of resulting from assisted reproductive technology, third trimester] Onset: 11-30-2023 Episodic Other complications of (1 source) Supervision [...] nutritional; endocrine; and metabolic disorders (1 source) Morbid (severe) obesity due to excess calories; Translations: [Morbid (severe) obesity due to excess calories] Onset: 11-30-2023 Chronic Other nutritional; endocrine; and metabolic disorders [...] 09-17-2023 Episodic Residual codes; unclassified (1 source) 32 weeks gestation of ; Translations: [32 weeks gestation of ] Onset: 11-30-2023 Episodic Residual codes; unclassified (1 source) 26 [...] RANDOM URINE PROTEIN 170 mg/L High <120 [facility] Comment on above: Performed By: #### U PCR #### [facility] ([id number]) [address] [place] [address], [address] [place] [address] 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 0.17 Normal <0.2 [facility] Comment on above: Result Comment: Neph rotic Syndrome is associated with ratios >3.5 Performed By: #### U PCR #### [facility] ([id number]) [address] [address] URINE CREATININE,RDM 98.06 mg/dL Normal [facility] Comment on above: Performed By: #### U PCR #### [facility] ([id number]) [address] [address] COMPLETE BLOOD COUNTon 09-16 Erythrocyte distribution width (RBC) [Ratio] 13.0 % Normal 11.5-15.0 [facility] Comment on above: Performed By: #### C BC, CMP, FEPR, 2532-0, 3084-1, TSHR, 2276-4, 2284-8, 2132-01 #### [facility] ([id number]) [address] [address] Hematocrit (Bld) [Volume fraction] 34.6 % Low 35-47 [facility] Comment on above: Performed By: #### C BC, CMP, FEPR, 2532-0, 3084-1, TSHR, 2276-4, 2284-8, 9 #### [facility] ([id number]) [address] [address] Hemoglobin (Bld) [Mass/Vol] 11.9 g/dL Normal 11.7-15.5 [facility] Comment on above: Performed By: #### C BC, CMP, FEPR, 2532-0, 3084-1, TSHR, 2276-4, 2284-8, 9 #### [facility] ([id number]) [address] [address] MCH (RBC) [Entitic mass] 30.9 pg Normal 27-34 [facility] Comment on above: Performed By: #### C BC, CMP, FEPR, 2532-0, 3084-1, TSHR, 2276-4, 2284-8, 2132-01 #### [facility] ([id number]) [address], [address] [place] [address] MCHC (RBC) [Mass/Vol] 34.4 g/dL Normal 32-36 [facility] Comment on above: Performed By: #### C BC, CMP, FEPR, 2532-0, 3084-1, TSHR, 2276-4, 2284-8, 2132-01 #### [facility] ([id number]) [address], [address] [place] [address] MCV (RBC) [Entitic vol] 90 fL Normal 80-100 [facility] Comment on above: Performed By: #### C BC, CMP, FEPR, 2532-0, 3084-1, TSHR, 2276-4, 4-8, 2132-01 #### [facility] ([id number]) [address], [address] [place] [address] Platelet mean volume (Bld) [Entitic vol] 9.4 fL Normal 7-12 [facility] Comment on above: Performed By: #### C BC, CMP, FEPR, 2532-0, 3084-1, TSHR, 2276-4, 2284-8, 2132-01 #### [facility] ([id number]) [address], [address] [place] [address] Platelets (Bld) [#/Vol] 181 10*3/uL Normal 150-450 [facility] Comment on above: Performed By: #### C BC, CMP, FEPR, 2532-0, 3084-1, TSHR, 2276-4, 2284-8, 2132-01 #### [facility] ([id number]) [address], [address] [place] [address] RBC COUNT 3.85 X10E12/L Normal 3.80-5.20 [facility] Comment on above: Performed By: #### C BC, CMP, FEPR, 2532-0, 3084-1, TSHR, 2276-4, 2284-8, 9 #### [facility] ([id number]) [address], [address] [place] [address] WBC (Bld) [#/Vol] 11.3 10*3/uL High 4.0-11.0 [facility] Comment on above: Performed By: #### C BC, CMP, FEPR, 2532-0, 3084-1, TSHR, 2276-4, 2284-8, 2132-01 #### [facility] ([id number]) [address], [address] [place] [address] COMPREHENSIVE METABOLIC PANE Charles 09-17-2023 Albumin [Mass/Vol] 3.4 g/dL Normal 3.2-5.3 [facility] Comment on above: Performed By: #### C BC, CMP, FEPR, 2532-0, 3084-1, TSHR, 2276-4, 2284-8, 2132-01 #### [facility] ([id number]) [address], [address] [place] [address] ALP [Catalytic activity/Vol] 71 U/L Normal 39-130 [facility] Comment on above: Performed By: #### C BC, CMP, FEPR, 2532-0, 3084-1, TSHR, 2276-4, 2284-8, 2132-01 #### [facility] ([id number]) [address], [address] [place] [address] ALT [Catalytic activity/Vol] 11 U/L Normal 0-31 [facility] Comment on above: Performed By: #### C BC, CMP, FEPR, 2532-0, 3084-1, TSHR, 2276-4, 2284-8, 2131- #### [facility] ([id number]) [address], [address] [place] [address] Anion gap [Moles/Vol] 11 mmol/L Normal 5-15 [facility] Comment on above: Performed By: #### C BC, CMP, FEPR, 2532-0, 3084-1, TSHR, 2276-4, 2284-8, 2132-01 #### [facility] ([id number]) [address], [address] [place] [address] AST [Catalytic activity/Vol] 13 U/L Normal 0-41 [facility] Comment on above: Performed By: #### C BC, CMP, FEPR, 2532-0, 3084-1, TSHR, 2276-4, 2284-8, 2132-01 #### [facility] ([id number]) [address], [address] [place] [address] Bilirubin [Mass/Vol] 0.3 mg/dL Normal 0.3-1.2 [facility] Comment on above: Performed By: #### C BC, CMP, FEPR, 2532-0, 3084-1, TSHR, 2276-4, 2284-8, 2132-01 #### [facility] ([id number]) [address], [address] [place] [address] Calcium [Mass/Vol] 9.0 mg/dL Normal 8.5-10.5 [facility] Comment on above: Performed By: #### C BC, CMP, FEPR, 2532-0, 3084-1, TSHR, 2276-4, 2284-8, 2131- #### [facility] ([id number]) [address], [address] [place] [address] Chloride [Moles/Vol] 104 mmol/L Normal 98-109 [facility] Comment on above: Performed By: #### C BC, CMP, FEPR, 2532-0, 3084-1, TSHR, 2276-4, 2284-8, 9 #### [facility] ([id number]) [address], [address] [place] [address] CO2 [Moles/Vol] 24 mmol/L Normal 22-32 [facility] Comment on above: Performed By: #### C BC, CMP, FEPR, 2532-0, 3084-1, TSHR, 2276-4, 2284-8, 9 #### [facility] ([id number]) [address] [place] [address] Creatinine [Mass/Vol] 0.46 mg/dL Normal 0.40-1.00 [facility] Comment on above: Result Comment: METH OD TRACEABLE TO IDMS STANDARD Performed By: #### C BC, CMP, FEPR, 2532-0, 3084-1, TSHR, 2276-4, 2284-8, 2132-01 #### [facility] ([id number]) [address], [address] [place] [address] eGFR (CKD-EPI) NON-RACE DEPENDENT >90 Normal >59 [facility] Comment on above: Result Comment: Reported eGFR is based on the CKD-EPI 2020 equation that does not use a race coefficient. Performed By: #### C BC, CMP, FEPR, 2532-0, 3084-1, TSHR, 2276-4, 2284-8, 2132-01 #### [facility] ([id number]) [address], [address] [place] [address] Glucose [Mass/Vol] 78 mg/dL Normal 65-99 [facility] Comment on above: Performed By: #### C BC, CMP, FEPR, 2532-0, 3084-1, TSHR, 2276-4, 2284-8, 2131-9 #### [facility] ([id number]) [address], [address] [place] [address] Potassium [Moles/Vol] 4.0 mmol/L Normal 3.5-5.0 [facility] Comment on above: Performed By: #### C BC, CMP, FEPR, 2532-0, 3084-1, TSHR, 2276-4, 2284-8, 2131-9 #### [facility] ([id number]) [address], [address] [place] [address] Protein [Mass/Vol] 6.5 g/dL Normal 6.0-8.0 [facility] Comment on above: Performed By: #### C BC, CMP, FEPR, 2532-0, 3084-1, TSHR, 2276-4, 2284-8, 2132-01 #### [facility] ([id number]) [address], [address] [place] [address] Sodium [Moles/Vol] 139 mmol/L Normal 134-146 [facility] Comment on above: Performed By: #### C BC, CMP, FEPR, 2532-0, 3084-1, TSHR, 2276-4, 2284-8, 2132-01 #### [facility] ([id number]) [address], [address] [place] [address] Urea nitrogen [Mass/Vol] 8 mg/dL Normal 5-23 [facility] Comment on above: Performed By: #### C BC, CMP, FEPR, 2532-0, 3084-1, TSHR, 2276-4, 2284-8, 2131-9 #### [facility] ([id number]) [address], [address] [place] [address] FERRITINon 09-17-2023 Ferritin [Mass/Vol] 11 ng/mL Normal 11-307 [facility] Comment on above: Performed By: #### C BC, CMP, FEPR, 2532-0, 3084-1, TSHR, 2276-4, 2284-8, 2132-01 #### [facility] ([id number]) [address], [address] [place] [address] Folate [Mass/Vol]on 09-17-19 FOLIC ACID 18.1 ng/mL Normal >5.8 [facility] Comment on above: Result Comment: NEW REFERENCE RANGE Performed By: #### C BC, CMP, FEPR, 2532-0, 3084-1, TSHR, 2276-4, 2284-8, 2132-01 #### [facility] ([id number]) [address], [address] [place] [address] IRON PROFILEon 09-17-2023 Iron [Mass/Vol] 52 ug/dL Normal 50-170 [facility] Comment on above: Performed By: #### C BC, CMP, FEPR, 2532-0, 3084-1, TSHR, 2276-4, 2284-8, 2132-01 #### [facility] ([id number]) [address], [address] [place] [address] IRON BINDING 580 ug/dL High 250-425 [facility] Comment on above: Performed By: #### C BC, CMP, FEPR, 2532-0, 3084-1, TSHR, 2276-4, 2284-8, 2132-01 #### [facility] ([id number]) [address], [address] [place] [address] IRON SATURATION 9 % SATURATION Low 15-50 [facility] Comment on above: Performed By: #### C BC, CMP, FEPR, 2532-0, 3084-1, TSHR, 2276-4, 2284-8, 2132-01 #### [facility] ([id number]) [address], [address] [place] [address] LDH [Catalytic activity/Vol] on 09-17-2023 LDH 124 U/L Normal 100-235 [facility] Comment on above: Performed By: #### C BC, CMP, FEPR, 2532-0, 3084-1, TSHR, 2276-4, 2284-8, 2132-01 #### [facility] ([id number]) [address], [address] [place] [address] Natriuretic peptide B [Mass/ Vol]on 09-17-2023 Natriuretic peptide B (Bld) [Mass/Vol] 66 pg/mL Normal <100.0 [facility] Comment on above: Performed By: #### C BC, CMP, FEPR, 2532-0, 3084-1, TSHR, 2276-4, 2284-8, 2132-01 #### [facility] ([id number]) [address] [place] [address] TSH WITH REFLEXon 09-17-2023 TSH 0.78 uIU/mL Normal 0.49-4.67 [facility] Comment on above: Performed By: #### C BC, CMP, FEPR, 2532-0, 3084-1, TSHR, 2276-4, 2284-8, 2132-01 #### [facility] ([id number]) [address] [place] [address] Thiamine (Bld) [Mass/Vol]on 09-17-2023 THIAMIN VITAMIN B1 [...] and its performance characteristics determined by [facility] Pathology and Laboratory Medicine [place] ([facility]). It has not been cleared or approved by the FDA. [facility] is regulated under CLIA as qualified to perform high-complexity testing. This test is used for clinical purposes. It should not be regarded as investigational or for research. Test Performed By: [facility] [address] [place] [address] Sap Ppm Consultant: Colin Cisneros III, M.D. CLIA #[id number] Performed By: #### C BC, CMP, FEPR, 2532-0, 3084-1, TSHR, 2276-4, 2284-8, 2132-01 #### [facility] ([id number]) [address], [address] [place] [address] URIC ACIDon 09-17-2023 Urate [Mass/Vol] 5.1 mg/dL Normal 2.6-7.2 [facility] Comment on above: Performed By: #### C BC, CMP, FEPR, 2532-0, 3084-1, TSHR, 2276-4, 2284-8, 2132-01 #### [facility] ([id number]) [address], [address] [place] [address] VITAMIN B12on 09-17-2023 Cobalamin (Vitamin B12) [Mass/Vol] 185 pg/mL Normal 180-914 [facility] Comment on above: Performed By: #### C BC, CMP, FEPR, 2532-0, 3084-1, TSHR, 2276-4, 2284-8, 2132-01 #### [facility] ([id number]) [address] [place] [address] TSHon 05-25-2023 Thyroid Stimulating (3Rd Generation) Hormone/ Tsh 2.[address] [facility] [address] abdomen w conon 3 CT abdomen w con [facility] [place] [id number] [place] Scan Report Signed Patient: Laura Alves MR#: [id number] 3 : 1985 Acct:[id number] Age/Sex: 37 / F ADM Date: 04/10/23 [...] Stan Owens M.D.04/10/2023 4:03 PM Dictation Location: [place] [address] Transcribed By: [facility] 04/10/23 1609 Dictated By: Stan Owens DO 04/10/23 1552 Signed By: 04/10/23 1603 Normal [facility] HCG ( test) IA.rapi d Ql (U)Ordered By: Shun Hill on 03-15-2023 HCG ( test) Ql (U) Negative [facility] HCG,Urineon 03-15-2023 Beta HCG ( test) Ql (U) Negative Normal [facility] Comment on above: Result Comment: PERF ORMED BY: [place] [id number] PATHOLOGIST BLENDING TECHNICIAN MARINA AYALA M.D. Performed By: #### U [facility] #### [facility] [address] [place] [id number] [facility] 03-15-2023 L Specimen: [id number] Received: 03/15/23 Status: BUSTER Fuentes Num: [id number] Spec Type: Surgical Subm Dr: Shun Hill MD Tissues: A Colon Biopsy (SURVEILLANCE BX) Procedures: Deepti CHILEL/Pierce Thompson Age/ Patient Sex Location Account Attending Physician Laura Alves/F [id number] Shun Hill MD SPEC NUM: [id number] RECD: 03/15/23 STATUS: BUSTER FUENTES NUM: [id number] SUMIT: 03/15/23 DR: Shun Hill MD ENTERED: 03/15/23 [facility] DR: SPEC TYPE: Surgical DEPT: [...] The microscopic examination confirms the diagnosis. Specimen: [id number] Received: 03/15/23 Status: BUSTER Fuentes Num: [id number] Spec Type: Surgical Subm Dr: Shun Hill MD Tissues: A Colon Biopsy (SURVEILLANCE BX) Procedures: HE/2, Gross/Micro L4 Patient: Laura Alves [id number] (Continued) Specimen: [id number] Received: 03/15/23 (Continued) Signed (signatur e on file) Winston Donis MD 03/16/23 1737 Specimen: [id number] Received: 03/15/23 Status: BUSTER Fuentes Num: [id number] Spec Type: Surgical Subm Dr: Shun Hill MD Tissues: A Colon Biopsy (SURVEILLANCE BX) Procedures: Deepti CHILEL/Pierce L4 Patient: Laura Alves [id number] (Continued) Specimen: [id number] Received: 03/15/23 (Continued) CPT Codes 43151 Specimen: [id number] Received: 03/15/23 Status: MADALYNSnehal Alfredo Num: [id number] Spec Type: Surgical Subm Dr: Shun Hill MD Tissues: A Colon Biopsy (SURVEILLANCE BX) Procedures: DUY/Yaz, Deepti/Pierce L4 Patient: Laura Alves [id number] (Continued) Signed (signatur e on file) Chin-Tyrel Donis MD 03/16/23 1737 [facility] SARS-CoV-2 (COVID-19) RNA NA A+probe Ql (Resp)on 01-16-2023 SARS-CoV-2 (COVID-19) RNA GEORGE+probe Ql (Unsp spec) Positive [facility] Other HIV 1&2 AB/AG Screen (P24 AG )on 12-13-2022 HIV 1&2 AB/AG Non-Reactive [facility] Hepatitis B surface antigeno n 12-13-2022 Hepatitis B Surface Antigen Negative [facility] No Panel InformationOrdered By: Rae Agudelo on 12-13-2022 [facility] Rubella IGG immune statuson 12-13-2022 Rubella immune IgG <0.90 NON IMMUNE [facility] Syphilis Total(Unknown Syphi lis Status)Ordered By: Rae Agudelo on 12-13-2022 Syphilis Non-Reactive [facility] COVID Quick Testingon 2022 Result Negative [facility] Other COVID Quick Testingon 2022 Result Negative [facility] Other COVID Quick Testingon 2022 Result Negative [facility] Other COVID Quick Testingon 2021 Result Negative [facility] Other Consent for Treatmenton 05-21 Consent for Treatment [id number] 318#1.00CD:127 [facility] Coding Summary.on 05-28-2021 Coding Summary. CD:[id number] ZBz4vHq+PGhlYWQ+PE1 BOGTfA00ogRKefT8HQ2 lECG7AOWQPYFEPYG2YA Q9tqQY3MXjyQ4IhqrOk XwjumPOsJC84WTc0BUM 8dDweUBajfO9fsSLrU3 b1AiFrPI58dO05CXfzX FBbMwL6FaSxfwqvjPEu M3cfKpUrwVMiYjc+PHR hYmxlIHdpZHRoPScxMD RmBkJjoKcpMF6wVh9eD GVyLWNvbGxhcHNlOiBj i4deAKRsYBxyLU5snSr uQ6WakEN1TZLin9s6Ku 48dHI+GEUfDPX0fHfgW Rqxy089HnTio1ywSXG4 gSObAKffXFI2X89dg2B 6TKWtASJaPVP0kLS5qG 6nrSnuupxmV5NsjRElH jA9EVY3oVSakN4qdEsi caopqH6eEle+B18DHO5 MQRBPAQ3WSye5G5JlAn wvdHI+PD45VEWzOW94b OIawOAnw3lplIv9MwSl YBDhBHV8nPwnMPyzk9P cGLJzB74jmBOvi1E3CW XluEwmkJGqPcZuyIS0b W2pVNuapywao9eswluw Ighqp7qebn55aW75W04 pOUaoFFShBIU1UIGqSP DogKolvw2tnW9sMx9+I Gznu8nuk6nhrRj9XjOc RUWsucQwfXyzSMG1q1D wEm60D0PjrVbdx8TjAq v8zb43lJYgp0N4qFN8T NmvIBKecK6aWKyfMvB1 VVFfMlDizZ45mXIgUYc iAa3wkKnorKcuNM5hWE ErzuraTDFfwT4vDTQlk WWsyUfdDH5zHIAlpcwq l620PhWzFSF4EDLvyTU tX9ZqoT3xLiDbPLNsBD SqX2TqzDTdJRwrN695W XgcOpB5QDLywbRvA4Un TOWbpFlsIaM0s0H4Cr9 Pb4RwokrmTJY7RBykVJ PeWpX0RbQpDjK0Q0WcF la5IYJmzDfxOF7bW4Uq HVXgxfwddfedyBB0BZB eHJYbtK80jNNsRFkmCq 0cm8P8a078JMNeMIAzl S81Xb9adXtfPGUflARY zN9swwrbs5ogxqckWrM fYSWqKHk4VKt5PGApyP toSbSkNTJ3IyT8SSA4x WFavD5odAxisthazW5h Oyc+O15gaK7kFVM9TMA 0jvllMJOumiCnBR29EG 51O7BpGtjlmKAjePF+P VZcivDjbSbfTS9qJmTk w1cha6GzVUolZ4JjSSN eJSdrCda6NATpVPG2pW P8eC8wMZXzNIorl1O8z TD4W1HopjDknj5bs6zq IWUtKWacW34gwQJtm0L 8PZOniCP2VGQvtFsjTe PheE05Pnd+PGNvbGdyb 8WhUiqia4ycz7qwtFt4 IjMwJSIgdmFsaWduPSJ 8f2SnOh77L86oHLooJZ RoPSIxNSUiIHZhbGlnb d8cvZ6pGg6+PGNvbCB3 vHW1qU7uZMDuEnB3YRs zI860CaWthMZvLbgdl8 uxa1getMr8VtKtCNRut dDalWjzBDS0p5PxRn84 U03oMRijTHYcJMHaHQT eYTIraQdzon4rmF5tOh 8+WG4hc7hheu22wQ50t HI+XWCoCOL6yJhaHUav UZXlkF0kLFttRfL5CGS sIiDlbK25xAZrJGtaEs 7arCreqPkfKP1tJUJwp dnhq643DwOwy2rmMKBg sIBrEXgfZKX8J65pa5A 5AXFuFSTaMLQ0tPQ5kW 1hbGlnbjogbGVmdDsgd tXdmPryLHjpQNmeD946 IHRvcDsnPlBhdGllbnQ hMiKwAJt2U7DcWgz4QD IdgAkcXI7kdVGbAKbuB m7xiViacKlhJM4mGLOf goszy522GrPsk7otLJK ldFNrIBotWHC0L33dv4 P4JYSoGXAuRFY6zZV9s E9hmYdftyzssHBvhGhf vbNavYhxSUjwESyyL33 6IHRvcDsnPkJpcnRoIE LaoNX6ZX04GL36iDWdp 6V2hUS6Z2ByXLHbqoxm esuwdPM6HECfROEuqH8 2Id2yuRviSl5gBFOiHW T6YLRvaCBgG7PnpI2cD pEnUIDuAASzB1ZhoRQc MAvlC931YBfnOzT7ZDN yarQcT2RoZVGzrXlzUf U8d3U2Mi9ES2M9EY42Y Q56eTUee6M5fIO9I0Co ZNSuoghtkvsktAC6FOK xCFDqmS68Eu9pzEriZo 0jTOSsBTL1UYMroYMdO 6RlpJ6jEaDoXQZaLJZe E6VspKAqQAwgJ638LLf rGbI8DUTocgIyJ7RzYO OrgDrbNfD1e3T0Tm0QC Kx0FE70KR55dALgr5M5 lKW6Q8UiMWEcrdfmusz ckCN4DSOyBGRhmS77Mb 0euTzaYj3jCTMrRIZ9D KLetPPzB3FwvL0nReRn YBSfCEMyM7PidFBkWEu vS976OXofXkE7UIShtt BjL1PjGKEjoIupDyM3n 8D6Tt0QOGIgXD40HHG2 pAX4FM71NC28N2GpBac vdGFibGU+PHRhYmxlIH dpZHRoPScxMDAlJyBzd GtsWP7eFt2mXJSeIZOi yArgjJZhSaZct8erRIG pRObjVQ6qpMroZ7QttK F4ILPnz0b2Zo06W37vX 3JvdXA+YMXgzJX8eLW2 yX0sJfIzFeP5NCgmJ72 0UzIanARqPgips1pgj0 tzpHp7UeV9XWAnhqPzv LtkOYL5k1BnUx30A77v IHdpZHRoPSIxNSUiIHZ joAavmd1oeE4nZb7+PG XpjAR1tQE7rM3iTuHmQ vY3MZinR870UmOaiSYe Fuhqq3nuk4sieRk6QfM sKAGvayNxdRttZAM1t7 LcFl91P6DbmJlaf3BuC zj6rw70rPIre2V1iPV0 L8XfRCKxycpzcIQmxWs iJB0sRZAyhbswTUDuoS 3uAQSiG2x1DzCmQcJ7D LweH8QhhxA0TYCbgTUs SClqXEH8I37uf9T3HFQ yEBQkKDP6zSV1oL7xsB lnbjogbGVmdDsgdmVyd LtsEQydPMbmU018YLKm nRctBBNceG7sDQPayGS ftHfcQP6bVNHeborsCn iQTJ5ZAGXTGgteCMoOZ GJJBTKRQV37DQ80qDUs l1X1cJW6C3HdJNHyrgz qjsepkSY8HGQaZLMtpF 97zUEtQUtvXc1ke9Y5w 230JYTaSLAwpR18Ws2e mHbuJUDofHIBkL6wjgm dh7jzhlhcOsBeNIGwPR l8DGk1RANwlKlmVeDmH XA1KxJ7VPQ6zKWdhP2i yIkaucenmA0aUcp+MTI lEOfgVQu9ONjikEC+PH YoADW9lMixMYciSJQel D7aFBEyM6l0FnKyRpN5 CLxkQ5PxBDLjvkufFy9 6uW0tVfVzIuH3MGtiI5 GhwpE2UALmoYBaVVhiI JI0F26bq8G6NKXyGMRw VJM6lNY6hV7fuTfbsql gbGVmdDsgdmVydGljYW gsEKuuT067ZVRyvKsuV gT3FMewJZTlML11TR83 gLUsf3L0fWO5A7QpKZT jmmfploksuUY3JNTgOH AjwQ72sVAaMVnuSs2ea 0I7f731FOUrFHGrpU50 Tz5qvJpyGGDinQHVnU7 ekmjcc4nuqacrZaRqBN RaMIo7MLh6EGXjiNnlJ gXyOHY6HjF7VZY9hNJa wC3fyUokuhmulJ7dEwf +EbDgLFfsSL39NT25rL Ddd1F8fOP2V7MqQBOfu cajgmzscYD3NJGiPLIl pF22tQMwBUhxZa5nd2D 8i416OMTpZHFetT59Rd 3qcDsnKPLzqOHOaK9xu tswu3owcfwsFvPqGLJf DVw6JKs6OAXuaLjrNkR qGBB2JwY7VWV0mMZtcI 3vfAvsslkziF7zUrz+U fVzpVAlmC2pLY59ON97 W8JoTlrkyAKbhXV+PHR hYmxlIHdpZHRoPScxMD YtFmKlwIfpNK6oBx0pQ GVyLWNvbGxhcHNlOiBj u2keOVRzAAwjCN8raPx fV5CjlPM8WJDkn6g6Cq 99G98qT4JidTO+PGNvb OH3sKW6jM4rZkFjJfM5 EVihK950YtVxfWBqFks wg8pqi7raaLx3UnQeBM HgvqGlnTcbZIV8g6BfP i52X15fNXxgBXYlSARd HUJhAVMyaMcnol4jmF3 wIi8+CVPnpDF9hOB1mA 6kIsKjFnX0IKsgD264C rUauIPdOecbW02hG5Gs dXA+CAYvIeh2MRFsvVj jFS0qqRQvEXxbBq9nVP K0HzXoKiPoIXbbN0LcT JZtekpccxlzbEY9WFLg MQOktN94Xd7rfHbvQo7 xTQJqHNR7BKWsfWNkW8 GjmO9oSpZgISYfBHOxS 0FqeCBaFWgnB198FAui ZiV9WSWbxrMiE7JhFKG icWinJqT5p6O3Dx6ImJ hwuEEjFT5dYmQlUTv8C 6FsIah3NTJwvLvlLW5e sRHfHYrtAk8ufPyxaCd wXA5hRCUwkewbl917Jb Alk7jbRMPdvSZjCLguZ SM3F35xx0L0ULIpQWJa IDC0yZX0aN7bwLezpqs gbGVmdDsgdmVydGljYW jvGLfhP735AFMlbTjnY jNDHcg2I2FcEbk7MLMc yXetHR0kfUBtOYirOr8 lqXyvuXcgCR8vVNAwwj ojk113JlIht4jvFZVcx MVoLJajNCJ6J58ps9C8 HOMkGXNuKHY3cBJ5qP0 hbGlnbjogbGVmdDsgdm AxgWirBYfvRHzdY265Q XYvuShyJn1SAqv6U3Pz Jvj9IKOqqBwcRZ3jnNZ hHXebKm7aaTdiaBuiZX 4oXJUryuovg197PlMlz 0rzQCPnyEVoHStgNDG3 Q88jk8Z5XXVgBUOmVMZ 8xOO0sC9hsDkvbvpsxW VmdDsgdmVydGljYWwtY IjvP176QNQpqSwpFbGc eWVyOjwvdGQ+TH85mj5 7A0PaKenfQid5QEXgLE H9jEI0gE9eVPMqHXgte 4V0tVW6E5JmhwNipf5b b2xs (more content not included)... Normal [facility] Priority Order-Juan 2021 Priority Order-STAT Comment Invalid Interpretation Code [facility] Comment on above: Result Comment: Rece ived Performed at: [facility] [address] [facility], [place] [id number] [facility] Mina Jones Performed By: #### S ARS-CoV-2, GEORGE, [id number] #### [facility] [address] [place] [address] SARS-CoV-2, NAAon 05-25-2021 SARS-CoV-2 (COVID-19) RNA GEORGE+probe Ql (Resp) Not detected Invalid Interpretation Code Not Detected [facility] Comment on above: Result Comment: This nucleic acid amplification test was developed and its performance characteristics determined by [employer]. Nucleic acid amplification tests include RT-PCR and [...] detected) result in this assay. Performed at: [address] [id number] PhD Shalom Gonzalez Performed By: #### S ARS-CoV-2, GEORGE, [id number] #### [facility] [address] [place] [address] Family Medicine Phone Visit - Telehealthon 05-22-2021 [...] 6 months ago. Has been using DayQuil [id number] with moderate improvement. Review of Systems Fatigue: yes Body aches: yes Chills: yes + sweats Fever: no, has not checked HOLYL: no Nasal congestion: yes Rhinorrhea: yes Cough: [...] only communication with the patient located at [address] [place] [phone], with no one else. If it is [...] Patient verbalized understanding Ordered: Rapid COVID Antigen ([facility]) Telephone Est 5 to 10 minutes [id number] 2. Fatigue (R53.83: Other fatigue) see above plan, rule out covid. Ordered: Rapid COVID Antigen ([facility]) Telephone Est 5 to 10 minutes [id number] 3. BMI 27.0-27.9,adult (Z68.27: Body mass index [...] 1035F Telephone Est 5 to 10 minutes 05551 Follow-up With When Contact Information Irma Burt [...] Methamphetamines, Pre (more content not included)... Normal [facility] Comment on above: Result Comment: Elec tronically [...] height. This can be done either in [place] ([place] or metric measurements. Note that charts are available to help you find your BMI quickly and easily without having to do these calculations yourself. To calculate your BMI in [place] measurements, your health care provider will: [...] problems. ? BMI can be measured using [place] measurements or metric measurements. ? To interpret [...] 01/16/2005 Document Revised: 04/19/2018 Document Reviewed: 03/20/2018 [employer] Patient Education ? 2020 [employer]. [facility] Physician Orderon 04-27-2021 Physician Order [id number]:127 [facility] Coding Summary.on 11-04-2020 Coding Summary. CD:[id number] VSf6oZb+PGhlYWQ+PE1 RHEMhJ28itUZznE3BL6 zVBI2WDZEYASKVUS4XE N0ptFQ6XAvgH1VwkuMr ZbjulLMyNI39RVd3SPQ 3iKtcUUqqvL8toZEcG4 b8UqFrHO02fW45NGswC LLxOlW7OdFoyskmaZXx L0ehUzYduFWvGoo+PHR hYmxlIHdpZHRoPScxMD DcScVzpSdeYP2mFc8mQ GVyLWNvbGxhcHNlOiBj l1sqNJZpHGvtTM4hbCt bT3EboTV1KOSwl5n2Dr 48dHI+DGSlTUN6pEvkA Rlui763AsXnq8bcTYA4 mZUmWLpbBGN6A51xe1H 8YIMdYCGwFVG8gGY4uF 0amEovlckdH6RegGPkB fD3YET8nTRubJ7doUjc ahvrsT1cTsn+L10IPB8 HHPRMWU3ARnc4I9QqCc wvdHI+QJ23LFDcRQ50w AYomNHnu0kleDk8HpXm TWYzKOS6sCdbSYvqh4B jLPGuV71avXUns5S1BI ZalYpxyXHhPrQgcWH2o P3aKElxpwvvk3wbfhbf Nslnx3vegl42hU15L20 oFWdsZLPtFPZ0XKPpTT FhbYnlpc1okC8iJv6+I Ojhy4nbo9vklWv7EmBy RHRywpSvoIioCSH2f6T mYo86R2CbvKurc4ZeCe i5sb00pXQph3J4aIB6Y FrbILMozN0bGGebHwB6 TAMyFnTwaN05sGCcQOg zRn3vhVyvyZwnPY7cUS AnjtulQEDowJ9cTQShw RYtlCjgON5cRODgxlht t988ZrMpTWM4BJXfkGJ uT6KeqO3mPsGrBEYcTP AiF5CbgTIfIJclO239H XleZuY6TUQceuPjX8Ec OGEbsHliCiA2j3G2Ab5 Bg9BdfirqWKP0WVwgZZ B3SiA2KcGoOyO1Z4QiQ ny0PIBhnEqcKD5jP2Yd NVAzustoqqsjwAW9ABA tWUUkxL83vYRtWRjwWc 4df1T7p252TMBkBVNdp N38Ry7olHrnKNMkcRXS mD6afadtx0gyqyasXfC uKRMoWJw6LLr3FSCvjN aaWkOoRKW5PaC6GAE3c BTktW1mqTqtjybgeS0c Oyc+K81doO1xDKU7QXL 1szaeUQKanfUnYQ62EZ 62J1NtJgpbvTErhJU+P RTkjdSozLljZY9zEeKe r3lhp3RhMHwlN8ZcROY dUHiwRyt4VJXpDJP4dC Q8tH1xKDWfLUprz4U1k QA5H2SfoaAroo7yz3dr AWIlZYvxR23gmSHiq5S 0KHTcyHS0QDIjfXghBx GfcU98Yrl+PGNvbGdyb 4HaTkaax9iix6qnjTv5 IjMwJSIgdmFsaWduPSJ 8a2KqSd65Q36bUDzrWH RoPSIxNSUiIHZhbGlnb c5cjL9qDi3+PGNvbCB3 gNZ4bW6yITNuCyW1SGe sT357HpPeeTStGxcbw4 bzh8qztAd2CaPjBNPue pCiuJbjFYX7n7WtMf75 X48nOLnwCEQkRELdMFD uCEQnbQdnux1axM0oHl 8+MH0jk7euoi02mG86h HI+CLWpPPZ5hHmvGSom WTCzwQ0iTEpmWbC4UJQ wZkAywP99uCJrSUybGe 2lyQqwcGevYE0nHLZit rchc080ZiMuh2pjNQXs mMGxWWjwCKT9A90vy6N 7YTNpPLSlXAI2cJB2nW 1hbGlnbjogbGVmdDsgd pRvtPxcWRmmTIraL433 IHRvcDsnPlBhdGllbnQ yTaRrYVm3L2LmYtg2BU WyvSiiKF5hrQHuFWjxT j8ikPcypGhtNR0lVQNz cyzck255HfXpt3lqBGX dgQTmYVfaYPT3G29pr3 L8HLHaXVAiPGV8iNU2o H6udBzfttnibCObqMmw tyXpyEcnYFvqWElcO53 6IHRvcDsnPkJpcnRoIE XjoRP6HG40IW86yYLlc 3M8oOC8I8QpKWEzhzbw jbhsaDH9DHEiSSXacL1 4Fj1rrZpnEd2vLJSoPH G3ZCMcrXFjR8NdwT8fE eZsDPDjSNEyZ0MkxRQy EJpkO363AMadRvK3UKJ kppIjM4RdZAHicRgnBf F7k1X8Er1PF3Y7DB74G I19qJHik8Y6uPB8M4Ek HRXrfsgqzjhhgIA8NTX xJCLpyH83Wt3bbMhfUt 4wRQEbJSH8KXBgtDQwR 3JxfI9fLzWsOILdTCIc J7EltXSqHVmuK586ZMv jGnI9FSIrxrXtJ7MpRD WplBbpNwT8v9Z1Hg8LE Ux8GY11TO71vSTnf6V1 xMX4H7ViILFgjhanydx naXP5ZLIiRKUxoC95Lu 4zjDipSl0mUFSeREP1H AHjuSHmK6VokK2zVgSr GNUkOSDlM0NwfENnHFf uR306YJjyMwH8JSCcln KgA2RsRZScvJyqMfV8s 6Y6Qd2XLPHeEH11PLI4 iEG0IV69ZF41S2VgPgq vdGFibGU+PHRhYmxlIH dpZHRoPScxMDAlJyBzd UbfGN2hWy1dREHxELVw rOurrSDhRvJfu0trAJU xYYlhFK2bnVelF9JupT T9PXHkv8z1Pz43R32fM 3JvdXA+LNIlbDH2dQN8 uD7oZvJyGlI4FHsfL29 4RjTwcYXbScmht2icy6 yokLq7AcX8YJGgstFkv YyaRDC0n8JoRp97I90g IHdpZHRoPSIxNSUiIHZ hwXykjc4omO7rSo7+PG NjuIM4sZW3fI6pWyTwR cL4SLvyA362UhMhrOPn Usiob9pnu7tziEn7JkK pDOPmljKlmDekBOS5x7 FvJi13U4CpdPism4CsM zg2fk24mPHbj8M4tCH0 S3IkZFMlzhrgqHVidHg mKF7uGSGpyphvCHDfaF 0sWWCdE0x9RzXvRsK7Y KvyU6OwgdE5ISOcaHVa RDmdZWZ3R12dm2Y4RWI rVIPmQGT2pOC7jD7xeV lnbjogbGVmdDsgdmVyd MrhAUbeYZxqQ020QNEx bZobMRQydT8zVXJyvOP shPszTX0jPASaczsqKi tBEG5TEMTXNxttTIeSG BPBFDNPDI66NW67wEXu d4E6kHZ5I5MzZGAfxtj oigzjvID9RWEpIQWvdG 82qEIbQOlvUn4ls7A4s 692DXZkCTSkkF67Mo3b bJreIMZxxHBNtK6edhx tk3kvjsuyOoMeHPWyBS z1DRq7SJKalXmrXjUnH EU6AdA4IQG4mIXdwG2h cMxnqpjyaU1zLjr+MTI iVMjqAEb8FZfnzPN+PH WmDKW9iSnyALfwKZQzp C9iMLXcL0w8OdXcMeG9 FSukW9HbKQRlyxxlNv0 9jP3vVoWrKcU2VPgiZ3 AfvpH2BLSfqDNkBPwqL ZP0N61jk6P4MICrRZOh UNZ3wKX7xV4ptYonuua gbGVmdDsgdmVydGljYW azUDqjW251GVFlgUmdA zG3QKuxOHWoSY82HA52 aUVcx3Q0sDX1P7HpCQG oremapdkomPW6XMSlXT WggL79mEMuIDmlZy4cu 1K5g873RZIrYFNncP81 Qo5nsGmpGJVcqBBNrW9 jlibcf9vetoblIrXwLK KxYOm0JJi4JFZdeJgpQ iRdDZA7SjJ7CGR1qBQf oC1ylYyhjavfyQ6mXqu +MnGcTAksFI73NW14oL Hgs4O4zWQ8F2ChNDCgz kehlqilqVW6ITKvMNOc uD08vETlJVimQm5tc9R 8u457GOFmIBUxnM62Vp 5nnBxeXCGkoIUEdN4gt zhto9tgqoswVvLeQDTo RBl3VJq1XHTgkSezDwC pXMH8OhB0MUK3cXQccV 9bmHygdnlzrB9tRnk+T 9L4gPD8mJKeyHqbiAZ+ OE51gb65Y3NwZrspBps 1UNRbHTH5qQJ9uB4rZS DqYNdeo4Z1jHI4I2Ypf mVpmp7lj3npGWPfDPvs K30upCTuc0Z0HYUvwXH 2ZXPjcHamIlDxlB97Je c+PQDoxElvs9HyStqdm 1lkn7cufJm1ZdXuEJFe dzTqhEniRNZ5m0MjVu5 5H92pHAltTQKeBXLbTH NvVCBnvFgkin4oxI2wU i8+YLRozEJ7tGT5kV5r ErFmFmD3HIigC678HzE loZNnKufmv8ipm4vfgA u4DhMmGRDgkqFetHsrZ XS6g5QqLc74J7VhjWol d8CkArh4hi34kTYyr3M 8aIU9E3VgKYCmrccokP FvdEvlVO5xOSFakldbE PIbqR3hHOJiE8t2ReYg RkF5URgoK3LdxxE1FSS yyIQoNZEdmLIQdG8vsk npu2qjhqlbRtJgKBInV Ci7IFo8SAUncEhuCvSp DGX3McV8HIP1mRSlhW2 obGoeuyrlxJ0gDbj+UG y7g9zajSHfRU2iiDC2V J21RM97tRQmp5F0nPC0 X4OwYZMhygisrfuetRM 5TYJgJBNymS83Bv4seR nkOd8zHOXkOTU5WLWjp GRtE5ZamJ8zOsUmHAMc VWXmS2EeqCBjVYxjU36 9TCbvQhF0CUXxgaXkJ0 RzOXEqaFycTdD9e0A3D p6IZB39ZY39ME21aKLt a2A6kJE1L5SfHROzfnq xdddmoLA4RMAwFHMyaM 21Ax9bhCixPk1wWMWhV UB2EUVdfBFiK3XxmD8o RnHsIFOeYXUtW0OvoUZ vEGkfK389ZRmuItK9AW TpurBaH0KaSUAsmHeyO pJ3l4G6Xc0UAv25KO96 FX01oSSay0Q3pQV0Y7T nNNOkshyljsgeoXF6DE ZpJFCsoC04Mr5giNtuI s9jLKOiBWC6ELVkaFXh F0BfwU4lCpEuHTEuIRT qY3WyqVTfMQjfP554KU wlTeS1OJOxxpGxG5MrX GOzePsyLqC4i6W9Sx3U KXmpyao1Z1ZiGiwsyTF +CD83RAPtOE15iHIreQ Lhz5ftiJd3AqQjUGYyS PC4eFigRZatz3YpTFVy Y29s (more content not included)... Normal [facility] CT Chest w/ Contraston 10-29 CT Chest [...] Terence Lomas M.D. Transcribed by: SHAYNA Technologist: DPR Technical Comments GFR (mL/min/1/73m2) age Contrast: Isovue 300 Contrast amount in ml's: 100 Normal [facility] Coding Summary.on 10-28-2020 Coding Summary. CD:[id number] LLy9rFi+PGhlYWQ+PE1 XPEZpR38ejHRpxG4XK9 mZKA2MEOPNVYHXNB2SC W7neOP6RLizV4WnadKy YhwpmCAaVY32WIo4HEA 9lEkqUCjidX0nuLRmU0 s9EpOsQV96bS40LJxlL AXtUpL0HdUuxypggJWo V0hiYnVcgXYcMxk+PHR hYmxlIHdpZHRoPScxMD TaZuDyvYicMC6qEb5iJ GVyLWNvbGxhcHNlOiBj j9yiOMVgWFesMP3yaWw eO1ZhdKN5PMCfs7i0An 48dHI+RDOoTSK2eNqqU Ywpj702JyRzj2zcYSU3 lNHyFOqzLIY5P32yx6F 9OWMeZSBmKOA6sXI7uV 7nyDibbtrtG6GkrWKoV kK8RGO8rLQarV9jbYko nsvjyZ1jZcj+H19AKZ2 TAMKSFC6FZgn2U4LsEr wvdHI+DU42LMFySL74b TRieMWnm2nfiDg6EkIv SVYwMES2zKgzPFrxp8G bIBPiS80lfUKtl9M0RF LfxXekeIAfEvWrhPS7r X5jYVtxallha9zsmolq Obski3nswp50aF54S12 oDLttNAKuPPQ2QSNjXR HhvZajxy1vxW6mCc2+I Fvrr4xuj2puhTg3RrZi BDFdhoVqmQdmZYU4i6M dCw00W5IycYzdu1VfSa i3el80nJVnx4W0kPK8D HmoOLSkkP7cZWnsCmL7 IPMgSlQtsG74uKJoOHk xWk4mbPdbaCxpME8mOR DgtlaaPSLwyZ4wIZIpf EEufObpWN0kYCDykglh n634NnNdQDN2EERovBM xP9MsuH1rFtDgQQDqJZ DpJ3ZupBCoLAyeT720Q BjmXlN2ZYQhsySiE5Vb KVUovTsaSmG4g5D1Yd0 Le6VtlitoNWC1JJebUQ Z1WnUjGtQkYgZ6E7VxF dy2VUSiaPsiSS7nC4Dh DZPkjdpqzqsobSZ5DDG qUYQudZ98tXMiSSvcIm 0de2G5f232XTEyKUPox C94Od4shZmsHBDmfYHJ mD7fwlcgm9bsavmkPrU iBOYmBPu2ECd5KEEpwM ejAtYcKKN1QwW0NRA9k SZozE0gtBagzlpckY9h Oyc+P01irD4zNXZ0POZ 3aseiKFQxjsSlUI04CO 41S1NkKpfkrEQcyNJ+P MQnetTfgQdlNN6vIcLr n6mvh3BtVYlpG4GkXPN kTBrvJxt5MZUaIEO5qS B3eW9yDTUnNQfqa1S1m JW0F9GzxjLouf5rx9si DNNbUMqpW49dvDCjn9D 9WXQxpSG7WOApoQeiMn XjqS01Dcq+PGNvbGdyb 8BnLtsop3sex1ecfEy0 IjMwJSIgdmFsaWduPSJ 6u8OiUz94F49eMXsvYI RoPSIxNSUiIHZhbGlnb j1gkO5wVp9+PGNvbCB3 jUI1zQ5pQQWzYyD8LNn lB510ZeCqfAGeWeiqb5 atb9emgCc9AlOfJXRcl aXonUytPYE5h1JaLd44 G55dUXrcRDVeQKCrILM kGXTkuDeuti3glC1lZe 8+PL3qn6pcmr35aH61r HI+XGBaSYX0rLgeUGcc GIQvyJ9pJXhaIrR4IHR sWjOcdZ29gTZmGKmtDo 8vqXwaqOyfAD1uGKZtr fnyi077DjCxr0mkYUJn lQRrHWafOSC3V05vs9D 2NLLmFFIyXWA7gJZ0mK 1hbGlnbjogbGVmdDsgd hAhlOxhKIcaSNnhJ149 IHRvcDsnPlBhdGllbnQ aYyUaFQm4E7WtVxi6ZE TzmNxoRY7ffNTrIYtiF f4nkCskqOagHZ4qVVFz jkief987JhGjg4bvJBQ pnUHkKJhuFCF7F60ev6 T5WAXkDGOhFZX2xJU6m J8raSyezbsmbYVhmBai sqRhjDafMIiuBZxpM24 6IHRvcDsnPkJpcnRoIE AmcJH9OD94KF23gNJpf 6M4uDB6U9SlAVOvxyse coynkCN3WJGlWUEypX8 3Qs0gxIuiEw6oTLMgHS Q8LDAgyOJxL5DdnO6zN mRiREZkFLEyP3DeyXMa BNosZ963LCogZdR4UID fwoMoJ7VeOJRofDegFv S6z5Q0Wf9JC3Y8RD43W E31fCKfj7F6lJS0B8Mi XKIcnekpecmsbTL2TGD cURNwaY47Fo5xnXfqLu 6kBIHsISV1QYCwsSLuU 0EvbC4bNtQeCZQgNPUn F8UffITxXPxmK310BVv hAnB0GLSmlhReR5PyOV EaoZpnYdS5q7Q5Oo8FB Wn6DE22JA05nFSsm0T0 nWB2D2ZtPZBjfpgqraq ojPX5RELgFDVrfH94Oc 9fgGnnFr5fUYIhUJT3F ZEzgNPgA1OgeT5aWzBj IFDnCKVgN1RihCIhRVh rC095WMfcZgM2PBYpqx ThL8HlJOUqsUhjGgH8q 9M7Vd4OLXBzZF50OKT2 tUS6XI86CK87T0EkCzy vdGFibGU+PHRhYmxlIH dpZHRoPScxMDAlJyBzd TtmXC7xLv0lUSJeDTRt xKqtcGEaUaGme9omVZL aFZaoNB1qhRmeZ6HavN A9ODIuv2z0Qa75F47aZ 3JvdXA+MVAcjGI5vIU8 hS2dGuKcQvX6EJjcS66 3MnGomPUpLkvlv0ydo9 rmwMr4BzR3LXYymxKkh WyfXHG7v0WhPm19O86i IHdpZHRoPSIxNSUiIHZ hwRscwj1avR9rYf5+PG EufMO3dGE5cW6fXnAdJ hA5SPosX613KwPwuJVv Huglr4vje2eeuWx6JkN uUZKvaqFyfZjnDCO2b8 TjLu94J1FfkObik5LcB za3om78eAUfn2C7fMY3 Q3KvONQgmtbbgMTbwDb iZX4qMNCfaamuWDRubS 1kWPKfI8t9CzAoSkW2Z XovJ7XtjzM6XXBatESg DNxpRXG3V69rx8Z0WCK eEQNaOCQ6qOA6fS3snQ lnbjogbGVmdDsgdmVyd UtaVNigXCgoM214WDKw wTaiVAGapH4pOKIfmYW ecJwzIL4bIOWfepgiGy eWOE5JUCUJEmboPBsFJ JOCNFPIGU34FA36lIKl c2V9gHH8P6QgZGRbyin kjrsuxNB1YSWdENGyhD 54bMXbWWxmOx6dw4P6z 346ABLpPXOzjR94Gr1t oFpqKRTgfEHWrT4cmln cj5zvjqmnPgAaKTZxUY j6IRy4NSGvwSykYjUjK XX7UyI3MJQ6hWTlyN2e jXwbqamaiQ9pNlq+MTI xPFtnOKb3FKomnFY+PH OxTGF0aPvgQZemCBZdm H3hCWAoP6s7PeNyAmI9 FWbdM2UmISXpuekaXi6 0yY4fLgBdTvJ3PHqiA7 LomeA6PCGinDWoFOnlW DV6F91ul4R4APPnDZQy ZBT7gEQ3eW1nkFcvzrx gbGVmdDsgdmVydGljYW yeKKuiL581APSilPihW xB8YTieURQxZK16KD64 mBZmf1X3eHV5M3NgQHF nytqyichujTO3TAPtLX YqlR88nFPaMTslGo3nj 1O4k088CARkHOHrpX43 Qc3rbGblKPApfFFBxC6 qpztju4nwcfyqTnKwDJ WsOSt5GDa7DQUdqXcuP nLeWJR9FaQ3ZVN2rCPo rQ7xvAfvymwwhK6dUly +BqZqKKjlMZ45KB63lY Muq0V9pYS8H8XbAAOax tyjmplcsZU8ZZUbPHHj qY42wBRpYQfkEy7wc0B 2p554KEVwODYjnC52Vf 7esXxlXQLgaAQXuD8nn dqpi3ddcdaoLnVjEPTc SWy3ZGi0QDAvdOccTxN mLLX7ByD8KEO6fHQreC 3yuLyxulslkM7gBsp+T 4W3cKM6iXYedHtheGB+ YS60wj21H2DhKipwJmc 9KEVyTRC8xJA5zP4rIQ KhMMjbg4G9tKS0V3Sau gQyrh3fz3eyVASpRSxn P89rqRXid2P8WZXmhLK 8RJDuqEwvVwZpbR55Cg c+SLXryDhwk7CoOaqub 0qms4ydmBv3UpXrIZNq ihRlaTzeZMF5l4YvNz6 6T18lDHvkJSBkHHKaHH VbUYOjjVpven1taL9eO i8+YVEzpQX4uXZ6fD9e RmFmUfN7BChuQ355CzJ luVYvKjuxv7zjh7iybC j5UmNeKHLbtuRvhTohM TU5q5HyCb28J6TedMmx p6YlIhp8wo14gMUfc4D 1iNC8L9IzHUEelpvzlI VsiMbqTQ2zAGTmdxqzA ENfjN9iKRKdU9x6DzUp RwG9OLhgU2TzblM6QHX jqZGfBHTclESViE2dth mkq8uaakvsNaRrNPFpM Fz4HUy8BKPhoSlrSfOm MNV2UtR1DPR2mVFlcA8 rwCdrrpskmC9bZpc+UG u9p1ztjYGnRX1ewSI5J A02RI94jIDqp0I0cWH1 E9VbXANacnwghrzybKS 4YHKlDOLpiC94Hq2jgV sxQk9uZBJtPKT1PFHnl PFnD7ApiD2rDdZjFKMr GUUaM1HhqNUeKBcgA83 1ZEjdNgL8URCxkiBoY0 VsNNBbkCwbNyB8n0W7R n0ELE82LF99GA67bRUf b7G1bFA9A5AvBNVfwvz eorpesYF4XQGpOAOjsS 16Gt2opMadLj7kDWKyI SN3NCGxaASmD1SozE4n ZaWsVOAmXFOcL9GgiUB oILhsE278ACaqMrZ8XZ MjurBzZ6EjXLTwvEuvG bR4p0H8Ew2IAl09KJ09 DJ07oTHim1N6xYN4B0D gLLYvojftwnnrzJC7RF VpYCQxgP25Qj8dfSeiL h5nWEHsWHL9DODsbPOc V2OidC0uJnYmHMKoMCX lJ8IqlBGvULcgR221WS fpSpB9GXZagpSmP5SyL YOunLbdOfS6p6U4Ax1P YThiuhx3E3SaGmjvxUA +DK54TUGcRC42aHEflQ Fdp8yrlAc6BzEaCTPkS XB9pHhoMKnez8BpHKWp Y29s (more content not included)... [facility] Consent for Treatmenton Consent for Treatment [id number] 44#1.00CD:127 [facility] Physician Orderon 10-21-2020 Physician Order [id number] B8#1.00CD:127 [facility] Consent for Treatmenton Consent for Treatment [id number] [id number]#1.00CD:127 [facility] Physician Orderon 10-19-2020 Physician Order [id number]#1.00CD:127 [facility] XR Chest 2 Viewson XR Chest [...] Ball M.D. Transcribed by: SHAYNA Technologist: BECKI [facility] Vital Signs Date Time Vital Sign Value Performing Clinician Facility 07-26-2023 11:27-0500 Body height 170.2 cm Kaitlyn Jasso MD Work Phone: [facility] 06-12-2023 13:00-0500 Body height 170.18 cm Shun Hill Other [facility] Other 06-12-2023 13:00-0500 Body mass index (BMI) [Ratio] 35.24 kg/m2 Shun Hill Other [facility] Other 06-12-2023 13:00-0500 Body weight 102.06 kg Shun Hill Other [facility] Other 03-15-2023 12:29-0400 Diastolic blood pressure 89 mm[Hg] DO Irma Burt Work Phone: [facility] 03-15-2023 12:29-0400 Heart rate 70 /min DO Irma Burt Work Phone: [facility] 03-15-2023 12:29-0400 Respiratory rate 16 /min DO Irma Burt Work Phone: [facility] 03-15-2023 12:29-0400 SaO2% (BldA) [Mass fraction] 100 % DO Irma Burt Work Phone: [facility] 03-15-2023 12:29-0400 Systolic blood pressure 132 mm[Hg] DO Irma Burt Work Phone: [facility] 03-15-2023 08:54-0400 Body height 170.18 cm DO Irma Burt Work Phone: [facility] 03-15-2023 08:54-0400 Body weight 90.71 kg DO Irma Burt Work Phone: [facility] 02-08-2023 14:45-0400 Body height 170.18 cm Shun Hill Other [facility] Other 02-08-2023 14:45-0400 Body mass index (BMI) [Ratio] 34.92 kg/m2 Shun Hill Other [facility] Other 02-08-2023 14:45-0400 Body weight 101.15 kg Shun Hill Other [facility] Other 02-08-2023 14:45-0400 Diastolic blood pressure 80 mm[Hg] Shun Hill Other [facility] Other 02-08-2023 14:45-0400 Systolic blood pressure 131 mm[Hg] Shun Hill Other [facility] Other 01-16-2023 10:35-0400 Body height 170.18 cm Aydee Vaughnmond Other [facility] Other 01-16-2023 10:35-0400 Body mass index (BMI) [Ratio] 35.2 kg/m2 Aydee Nadiya Other [facility] Other 01-16-2023 10:35-0400 Body temperature 98.3 [degF] Aydee Nadiya Other [facility] Other 01-16-2023 10:35-0400 Body weight 101.97 kg Aydee Nadiya Other [facility] Other 01-16-2023 10:35-0400 Diastolic blood pressure 66 mm[Hg] Aydee Nadiya Other [facility] Other 01-16-2023 10:35-0400 Respiratory rate 18 /min Aydee Nadiya Other [facility] Other 01-16-2023 10:35-0400 SaO2% (BldA) [Mass fraction] 98 % Aydee Nadiya Other [facility] Other 01-16-2023 10:35-0400 Systolic blood pressure 105 mm[Hg] Aydee Nadiya Other [facility] Other 09-23-2022 10:45-0400 Body height 170.18 cm Aydee Nadiya Other [facility] Other 09-23-2022 10:45-0400 Body mass index (BMI) [Ratio] 35.13 kg/m2 Aydee Nadiya Other [facility] Other 09-23-2022 10:45-0400 Body temperature 99.2 [degF] Aydee Nadiya Other [facility] Other 09-23-2022 10:45-0400 Body weight 101.74 kg Aydee Nadiya Other [facility] Other 09-23-2022 10:45-0400 Diastolic blood pressure 80 mm[Hg] Aydee Nadiya Other [facility] Other 09-23-2022 10:45-0400 Respiratory rate 18 /min Aydee Nadiya Other [facility] Other 09-23-2022 10:45-0400 SaO2% (BldA) [Mass fraction] 98 % Aydee Nadiya Other [facility] Other 09-23-2022 10:45-0400 Systolic blood pressure 125 mm[Hg] Aydee Nadiya Other [facility] Other 09-04-2022 11:20-0400 Body height 170.18 cm Aydee Hearn Other [facility] Other 09-04-2022 11:20-0400 Body mass index (BMI) [Ratio] 31.32 kg/m2 Aydee Hearn Other [facility] Other 09-04-2022 11:20-0400 Body temperature 97.8 [degF] Aydee Hearn Other [facility] Other 09-04-2022 11:20-0400 Body weight 90.72 kg Aydee Hearn Other [facility] Other 09-04-2022 11:20-0400 Respiratory rate 18 /min Aydee Hearn Other [facility] Other 09-04-2022 11:20-0400 SaO2% (BldA) [Mass fraction] 99 % Aydee Hearn Other [facility] Other Encounters Encounter Date Encounter Type Care Provider Facility Start: 11-30-2023 End: 11-30-2023 ambulatory SAGAR R LUKE [facility] Start: 11-21-2023 End: 11-21-2023 ambulatory SAGAR LUKE Not Available Start: 11-14-2023 End: 11-14-2023 ambulatory DILSHAD SHARIFGAN [facility] Start: 11-07-2023 End: 11-07-2023 ambulatory SAGAR LUKE Not Available Start: 11-07-2023 End: 11-07-2023 ambulatory ERA MCMANUS [facility] Start: 10-22-2023 End: 10-26-2023 [facility] Start: 10-22-2023 End: 10-22-2023 ambulatory SAGAR BUTLER [facility] Start: 10-09-2023 End: 10-09-2023 ambulatory IRMA KD Not Available Start: 10-01-2023 End: 10-01-2023 ambulatory CATHERINE GASPAR [facility] Start: 09-20-2023 End: 09-21-2023 ambulatory [facility] Start: 09-18-2023 End: 09-18-2023 ambulatory SAGAR LUKE Not Available Start: 09-17-2023 End: 09-17-2023 ambulatory SAGAR R LUKE [facility] Start: 09-17-2023 End: 09-17-2023 ambulatory [facility] Start: 08-31-2023 End: 09-04-2023 ambulatory FROYLAN Rascon [facility] Start: 08-15-2023 End: 08-15-2023 ambulatory IRMA YI Not Available Start: 07-26-2023 Chart abstracting Kaitlyn Jasso MD Work Phone: [facility] Start: 07-18-2023 End: 07-18-2023 ambulatory SAGAR LUKE Not Available Start: 06-20-2023 End: 06-20-2023 ambulatory Shun Hill Other [facility] Other Start: 06-20-2023 Telephone encounter Shun infante [facility] Start: 06-19-2023 End: 06-19-2023 ambulatory SAGAR LUKE Not Available Start: 06-12-2023 End: 06-12-2023 ambulatory Shun Hill Other [facility] Other Start: 06-12-2023 Office outpatient vi sit 15 minutes Shun Hill [facility] Start: 05-01-2023 End: 05-01-2023 ambulatory Shun Hill Facility:[facility] Start: 05-01-2023 End: 05-01-2023 ambulatory DO Irma D Burt Work Phone: [facility] Work Phone: Start: 05-01-2023 End: 05-01-2023 Patient encounter procedure DO Irma Burt Work Phone: [facility] Work Phone: Start: 04-10-2023 End: 04-10-2023 ambulatory Shun Hill Facility:[facility] Start: 04-10-2023 End: 04-10-2023 ambulatory DO Irma D Burt Work Phone: [facility] Work Phone: Start: 04-10-2023 End: 04-10-2023 Patient encounter procedure DO Irma Burt Work Phone: [facility] [place] Work Phone: Start: 04-06-2023 End: 04-06-2023 ambulatory Shun Hill Other [facility] Other Start: 04-06-2023 Telephone encounter Shun Moncada ck [facility] Start: 03-20-2023 End: 03-20-2023 ambulatory Shun Hill Other [facility] Other Start: 03-20-2023 Telephone encounter Shun Coral ck [facility] Start: 03-19-2023 End: 03-19-2023 ambulatory Shun Hill Other [facility] Other Start: 03-19-2023 Telephone encounter Shun Moncada ck [facility] Start: 03-15-2023 End: 03-15-2023 ambulatory Shun Hill Facility:[facility] Start: 03-15-2023 End: 03-15-2023 Admission to same day surgery center DO Irma Burt Work Phone: [facility] Work Phone: Start: 03-15-2023 End: 03-15-2023 ambulatory DO Irma Burt Work Phone: [facility] Work Phone: Start: 02-26-2023 End: 02-26-2023 ambulatory Shun Hill Other [facility] Other Start: 02-26-2023 Telephone encounter Shun infante [facility] Start: 02-08-2023 End: 02-08-2023 ambulatory Shun Hill Other [facility] Other Start: 02-08-2023 Office outpatient ne w 45 minutes Shun Hill [facility] Start: 01-16-2023 End: 01-16-2023 ambulatory Aydee Nadiya Other [facility] Other Start: 01-16-2023 Office outpatient vi sit 15 minutes Aydee Nadiya [facility] Start: 09-23-2022 End: 09-23-2022 ambulatory Aydee Nadiya Other [facility] Other Start: 09-23-2022 Office outpatient vi sit 15 minutes Aydee Nadiya [facility] Start: 09-04-2022 End: 09-04-2022 ambulatory Aydee Nadiya Other [facility] Other Start: 09-04-2022 Nursing evaluation o f patient and report Aydee Nadiya [facility] Start: 07-12-2022 End: 07-12-2022 ambulatory Perla Yulisa Other [facility] Other Start: 07-12-2022 Office outpatient vi sit 5 minutes Perla Yulisa [facility] Start: 07-07-2022 End: 07-07-2022 ambulatory Aydee Hearn Other [facility] Other Start: 07-07-2022 Encounter for other preprocedural examination Aydee Hearn [facility] Start: 07-07-2022 Nursing evaluation o f patient and report Aydee Hearn [facility] Start: 02-03-2022 End: 02-03-2022 ambulatory Maria Guadalupe Powers Other [facility] Other Start: 02-03-2022 Office outpatient vi sit [...] Td Vaccines (3 - Td or Tdap) [facility] Start: 09-17-2023 End: 09-17-2023 Patient encounter procedure 09/17/2023 8:45 AM EDT Office Visit [facility] [address] [place] [address] Kaitlyn Jasso MD [address] [facility] [address] [place] [address] [facility] Start: 09-17-2023 End: 09-17-2023 Patient encounter procedure 09/17/2023 7:30 AM EDT Appointment [facility] [facility] [address] [place] [id number] [facility] Start: 05-01-2023 [facility] Start: 03-15-2023 [facility] Start: 01-19-2023 COVID-19 Vaccine ( season) COVID-19 Vaccine () [facility] Start: 01-19-2023 Influenza vaccination Influenza Vacc ine [facility] Start: 12-30-2021 Adult BMI Screening Adult BMI Screen ing [facility] Start: 2006 Screening for malign ant neoplasm of cervix Pap Smear [facility] Start: 1997 Depression Screening Depression Scre ening [facility] Start: 1997 Tobacco Screening Tobacco Screening [facility] Immunizations Immunization Date Immunization Notes Care Provider Fa cility 02-03-2020 influenza virus vaccine, unspecified formulation Kaitlyn Jasso MD Work Phone: [facility] Payers Date Payer Category Payer Private Health Insurance [id number] 2023 Self-pay [id number] 2018 Private Health Insurance [employer] A ETNA POS II [id number] 2018-Present [phone] [address] [place] [address] [id number] 1985 Unknown [id number] 2.16.840.1.817415.3.579.2 .1286 1985 Unknown [id number] 2.16840.1.503869.3.579.2 .1258 1985 Unknown [id number] 2.840.1.931531.3.579.2 .1258 1985 Unknown [id number] 2.16840.1.799382.3.579.2 .1258 1985 Unknown [id number] 2.840.1.613421.3.579.2 .1258 1985 Unknown [id number] 2.840.1.930704.3.579.2 .1258 1985 Unknown [id number] 2.840.1.502404.3.579.2 .1258 1985 Unknown [id number] 2.840.1.981531.3.579.2 .1258 1985 Unknown [id number] 2840.1.618781.3.579.2 .1285 1985 Unknown [id number] 2.840.1.221638.3.579.2 .1285 1985 Unknown [id number] 840.1.908932.3.579.2 .1285 1985 Unknown [id number] 2.840.1.307686.3.579.2 .1285 1985 Unknown [id number] 840.1.137165.3.579.2 .1285 1985 Unknown [id number] .840.1.131557.3.579.2 .1285 1985 Unknown [id number] .840.1.410938.3.579.2 .1285 1985 Unknown [id number] 2.840.1.151371.3.579.2 .1285 1985 Unknown [id number] 2.840.1.263397.3.579.2 .1285 1985 Unknown [id number] 2..840.1.200801.3.579.2 .1286 Medicaid [facility] [id number] Private Health Insurance [id number] 2..840.1.750670.19 Unknown [facility] [id number] Unknown [id number] 2.840.1.075862.3.579.2 .531 Unknown [id number] 2.840.1.575701.3.579.2 .531 Unknown [id number] 2.840.1.425671.3.579.2 .531 Social History Date Type Detail Facility Start: 06-30-2020 End: 07-26-2023 Sex Assigned At [facility] Start: 03-15-2023 End: 03-15-2023 Tobacco smoking status NJIS Ex-smoker (finding) [facility] Start: 1985 Sex Assigned At Female F [facility] Start: 11-17-2020 Tobacco smoking stat us NJIS Smokes tobacco daily [facility] History of tobacco use Tobacco U se Types Packs/Day Years Used Date Smoking Tobacco: Every Day Vaping/E-cigarettes Smokeless Tobacco: Never [facility] Start: 11-17-2020 Tobacco use and exposure Smokeless tobacco non-user [facility] Start: 07-26-2023 Alcohol intake Current drinke r of alcohol (finding) [facility] Start: 06-30-2020 End: 07-26-2023 History of Social function [facility] Childcare Unknown [facility] Start: 11-17-2020 Alcohol Comment social [facility] Start: 05-04-2023 [facility] Start: 1985 Sex Assigned At Not on file P [facility] Goals Date Patient Goal Desired Activity /State Clinical Notes 02-03-2022 to 08-31-2023 Note Date & Type Note Facility 04-12-2024 Note XR FOOT LT MIN 3 VWS Procedure: Left foot radiographs performed Number of views:3 History:Pain Comparison:None Findings: There is no fracture, dislocation, or destructive lesion. Soft tissue edema is seen overlying the dorsum of the foot Impression: Soft tissue edema. No acute fractures or dislocations are seen. Finalized by Mayelin Pinto DO on 08/31/2023 11:23 AM [facility] 06-12-2023 Evaluation note Encounter Date Diagnosis Assessment Notes May, Diarrhea (ICD-10 - R19.7) Patient reports that she is about 7-8 weeks gestational Patient reports improvement on Creon with occasional flare Patient reports that she is taking a fiber supplement May, Fatty liver (ICD-10 - K76.0) Patient did have a FibroScan that indicates fatty liver and minimal scaring, this will be reviewed [facility] Other 11-17-2023 Evaluation note* Encounter Date Diagnosis Assessment Notes Treatment Notes Treatment Clinical Notes Mar, Exocrine pancreatic insufficiency (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) [facility] Other 10-31-2023 Evaluation note* Encounter Date Diagnosis Assessment Notes Treatment Notes Treatment Clinical Notes Feb, Alternating constipation and diarrhea (ICD-10 - R19.8) Feb, Fecal urgency (ICD-10 - R15.2) [facility] Other 10-30-2023 Evaluation note* Encounter Date Diagnosis Assessment Notes Treatment Notes Treatment Clinical Notes Feb, Alternating constipation and diarrhea (ICD-10 - R19.8) [facility]* Encounter Date Diagnosis Assessment Notes Treatment Notes Treatment Clinical Notes Feb, Alternating constipation and diarrhea (ICD-10 - R19.8) [facility] Other 09-21-2023 Evaluation note* Encounter Date Diagnosis Assessment Notes Treatment Notes Treatment Clinical Notes Jan, Alternating constipation and diarrhea (ICD-10 - R19.8) WORSENING DIARRHEA AND CONSTIPATION OVER THE PAST YEAR. DOES HAVE SOME NOCTURNAL AWAKENINGS WITH THE DIARRHEA. CAN GO 4-5 DAYS WITH OUT A BOWEL MOVEMENT WHEN SHE IS CONSTIPATED. WILL ORDER IBS WORK UP WILL PROCEED WITH COLONOSCOPY [facility] Other 08-29-2023 Evaluation note* Encounter Date Diagnosis [...] no improvement in 2 to 3 days [facility] Other 2023 Evaluation note* Encounter Date Diagnosis [...] no improvement in 2 to 3 days [facility] Other 04-17-2023 Evaluation note* Encounter Date Diagnosis Assessment Notes Treatment Notes Treatment Clinical Notes Aug, Contact with and (suspected) exposure to other viral communicable diseases (ICD-10 - Z20.828) [facility] Other 02-22-2023 Evaluation note* Encounter Date Diagnosis Assessment Notes Treatment Notes Treatment Clinical Notes Jun, Contact with and (suspected) exposure to covid-19 (ICD-10 - Z20.822) [facility] Other 02-17-2023 Evaluation note* Encounter Date Diagnosis Assessment Notes Treatment Notes Treatment Clinical Notes Jun, Preoperative clearance (ICD-10 - Z01.818) [facility] Other 09-16-2022 Evaluation note* Encounter Date Diagnosis Assessment Notes Treatment Notes Treatment Clinical Notes Jan, Contact with and (suspected) exposure to covid-19 (ICD-10 - Z20.822) [facility] Other Evaluation note* Diagnosis Onset Date Resolution Status Diarrhea acute [facility] Work Phone: Evaluation noteNo InformationNort [employer] Other History general Narrative - Reported* Type Description Date Medical History ANXIETY AND DEPRESSION [facility] Other Hospital Discharge instructions Additional Instructions DISCHARGE [...] if you have any problems. -Office number [phone] [facility] Work Phone: InstructionsNot on filedocumented in this encounter [facility] SystemReason for visit NarrativeRED EQUINOX, ANTIGEN PROCEDURE TESTNorth [employer] Other Reason for visit NarrativeNEEDSNEGATIVE, RAPID COVID TEST FOR PROCEDURENocitizens memorial healthcare [employer] Other Summary Purpose Family History No Family [...] section and content) DATE CREATED AUTHOR 08/24/2021 [place] [employer] [facility] DATE CREATED AUTHOR AUTHOR'S ORGANIZ ATION 05/09/2023 [facility] DATE CREATED AUTHOR AUTHOR'S ORGANIZ ATION 09/22/2023 [facility] DATE CREATED AUTHOR AUTHOR'S ORGANIZ ATION 11/23/2023 [facility] DATE CREATED AUTHOR AUTHOR'S ORGANIZ ATION 12/06/2023 [facility] REASON FOR VISIT (unrecogniz ed [...] Active Shun Hill MD Attending Provider 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 [facility] [email or web address] [facility]. provides no warranty or guarantee of the accuracy or completeness of information in this document.
[2023-12-08 21:24] VITALS: BP 134/79; PULSE 113; TEMP 35.4
[2023-12-08 21:28] LABS: Bilirubin Urine NEGATIVE (NEGATIVE); Blood Urine MODERATE (NEGATIVE); Clarity Urine CLEAR (CLEAR); Color Urine YELLOW (YELLOW); Glucose Urine UA NEGATIVE (NEGATIVE); Ketones Urine NEGATIVE (NEGATIVE); Leukocyte Esterase Urine NEGATIVE (NEGATIVE); Nitrite Urine NEGATIVE (NEGATIVE); Protein Urine TRACE mg/dL (NEG/TRACE); Specific Gravity Urine >=1.030 (1.005-1.025); Urobilinogen Urine 0.2 EU/dL (0.2-1.0)
[2023-12-08 21:29] LABS: Urine Microscopic Indicated YES
[2023-12-08 21:36] LABS: Bacteria Urine TRACE #/HPF (NONE SEEN); Calcium Oxalate Crystals Urine MANY; Crystals Seen? Seen #/HPF (None Seen); Mucus Urine NONE SEEN (NONE SEEN); RBC Urine NONE SEEN #/HPF (0-2); Squamous Epithelial Cell Urine MODERATE #/LPF (NONE/RARE); WBC Urine 0-2 #/HPF (NONE SEEN)
[2023-12-08 21:37] LABS: Cast Seen? NONE SEEN #/LPF (NONE SEEN); Urine Culture Indicated NO
[2023-12-08 22:59] LABS: Glucometer 122 mg/dL (74-106)
[2023-12-08] MEDS: ACETAMINOPHEN 500 MG TABLET 1000 MG PO (23:10)
[2023-12-08] MEDS: LACTATED RINGER'S SOLUTION 1,000 ML 125 ML IV (23:11)
[2023-12-08] MEDS: INSULIN DETEMIR 300 UNIT/3 ML INSULN.PEN 25 UNIT SUBQ (23:12)
--- NOTE | 2023-12-08 23:43 | PC.NURSE ---
IV Fluids going, PM Insulin given and Tylenol EX given per PRN order. Patient resting comfortably in bed.
[2023-12-09] MEDS: ACETAMINOPHEN 500 MG TABLET 1000 MG PO ×2 (04:48→09:00)
[2023-12-09 04:49] VITALS: TEMP 35.8
[2023-12-09 04:51] VITALS: BP 114/72; PULSE 94
[2023-12-09] MEDS: LACTATED RINGER'S SOLUTION 1,000 ML 125 ML IV (06:22)
[2023-12-09] MEDS: LEVOTHYROXINE SODIUM 75 MCG TABLET PO (06:47)
--- NOTE | 2023-12-09 07:31 | PC.NURSE ---
Report given to Snehal Valadez RN
--- NOTE | 2023-12-09 08:00 | US_ITS ---
[address] [address] Patient Name: GONZÁLEZ LOMELI MRN: [id number] date: 1985 Sex: F Assigned Patient Location: [facility] Current Patient Location: [facility] Accession/Order Number: [id number] Exam Date: 12/09/2023 09:03 Report Date: 12/09/2023 11:58 At the request of: JAMAL CHONG Procedure: US renal BI EXAM: US renal BI HISTORY: possible kidney stones COMPARISON: None. TECHNIQUE: Retroperitoneal ultrasound of the bilateral kidneys was performed with barron scale and color Doppler imaging. FINDINGS: KIDNEYS: RIGHT KIDNEY: Maximum length: 12.6 cm. Morphology: Normal echogenicity; no nephrolithiasis identified. Solid/cystic lesions: None. Collecting system: No hydronephrosis. LEFT KIDNEY: Maximum length: 11.8 cm. Morphology: Normal echogenicity; no nephrolithiasis identified. Solid/cystic lesions: None. Collecting system: No hydronephrosis. BLADDER: Unremarkable. Volume: 192.86 cc Additional findings: None. US/US renal BI IMPRESSION: No renal stone or hydronephrosis. Electronically authenticated by: FLETCHER TORO Date: 12/09/2023 11:58
--- NOTE | 2023-12-09 08:02 | US_ITS ---
[address] [address] Patient Name: GONZÁLEZ LOMELI MRN: [id number] date: 1985 Sex: F Assigned Patient Location: [facility] Current Patient Location: Accession/Order Number: [id number] Exam Date: 12/09/2023 09:03 Report Date: 12/10/2023 07:18 At the request of: JAMAL CHONG Procedure: US OB BPP w non-stress EXAMINATION: US OB BPP w non-stress HISTORY: GDM, hypothryoid, poly, macrosomia, IVF COMPARISON: 12/03/2023 TECHNIQUE: Ultrasound biophysical profile was performed in the radiology department. non-reactive stress testing was performed by nursing staff in the birthing center. FINDINGS: BREATHING MOVEMENTS: 2 GROSS BODY MOVEMENTS: 2 TONE: 2 QUALITATIVE AMNIOTIC FLUID VOLUME: 2 PRESENTATION: CEPHALIC HEART RATE: 125 bpm AMNIOTIC FLUID VOLUME: 26.7 cm GESTATIONAL AGE: 89 Day US/US OB BPP w non-stress IMPRESSION: Total biophysical profile score: 8 Polyhydramnios Electronically authenticated by: MUSTAPHA COLES Date: 12/10/2023 07:18
[2023-12-09 08:25] VITALS: BP 112/62; PULSE 97; TEMP 36.7
[2023-12-09 08:27] LABS: Glucometer 92 mg/dL (74-106)
[2023-12-09] MEDS: INSULIN DETEMIR 300 UNIT/3 ML INSULN.PEN 10 UNIT SUBQ (10:09)
[2023-12-09 12:57] LABS: Glucometer 117 mg/dL (74-106)
== END 2023-12-09 12:55 | disposition home or self-care (01) ==
PROVIDERS: Admitting Provider Obstetrics & Gynecology; Visit Provider Obstetrics & Gynecology
DX: O26.853 Spotting complicating pregnancy, third trimester (principal); O26.893 Other specified pregnancy related conditions, third trimester; M54.50 Low back pain, unspecified; N89.8 Other specified noninflammatory disorders of vagina; O24.414 Gestational diabetes mellitus in pregnancy, insulin controlled; Z3A.33 33 weeks gestation of pregnancy
CPT/HCPCS: 36415; 59025; 76775; 76818; 81001; 82948; G0378; G0379

== ENCOUNTER 2023-12-13 07:20 | Outpatient (OUT) | payer OTHER, SELFPAY ==
--- OUTSIDE RECORDS SUMMARY | 2023-12-13 07:24 | XMS_ITS | CCD ---
Author Organization [facility] Inform ion Partnership [facility] Care Team Providers Care Supervisor Refractory Products Name Role Phone Maria Guadalupe Powers Unavailable NadiyaAydee anderson Unavailable Perla Márquez Unavailable Shun Hill Unavailable [phone] MD Shun Hill Attending Provider DO Irma [...] Primary Care Unavailable KAITLYN JASSO Attending Unavailable SREE GORMAN Referring Unavailable NO PCP, NO PCP Primary Care Unavailable LUKE, SAGAR Attending Unavailable LUKE, SAGAR Attending Unavailable IRMA YI Attending Unavailable LUKE, SAGAR Attending Unavailable IRMA YI Attending Unavailable LUKE, SAGAR Attending Unavailable LUKE, SAGAR Attending Unavailable IRMA YI Attending Unavailable Medications Current Medications Medication Drug Class(es) Dates Sig (Normalized) Sig (Original) amoxicillin 500 mg oral capsule (2 sources) Penicillin-class Antibacterial Start: 07-26-2022 take 1 capsule by mouth every eight hours Amoxicillin 500 MG 1 capsule Orally three times a day for 10 day(s) Jul, Active amylase 777728 unt / lipase 46663 unt / protease 017632 unt delayed release oral capsule (3 sources) Start: 04-06-2023 take 2 capsules by mouth three times daily at mealtime Creon 34116-045723 UNIT 2 capsules Orally three times a [...] 1 tablet by mouth twice daily Sutab 9972-895-660 MG 12 tablets the first dose the [...] 5 day(s) September, Not-Taking 84 hr estradiol 0.15744 mg/hr transdermal system (4 sources) Estrogen take [...] URINE PROTEIN 170 mg/L High <120 [facility] Comment on above: Performed By: #### U PCR #### [facility] ([id number]) [address] [place] [address] U/PRO/STENCIL INSPECTOR RATIO CALC 0.17 Normal <0.2 [facility] Comment on above: Result Comment: Neph rotic Syndrome is associated with ratios >3.5 Performed By: #### U PCR #### [facility] ([id number]) [address] [place] [address] URINE CREATININE,RDM 98.06 mg/dL Normal [facility] Comment on above: Performed By: #### U PCR #### [facility] ([id number]) [address] [address] COMPLETE BLOOD COUNTon 09-16 Erythrocyte distribution width (RBC) [Ratio] 13.0 % Normal 11.5-15.0 [facility] Comment on above: Performed By: #### C BC, CMP, FEPR, 2532-0, 3084-1, TSHR, 2276-4, 2284-8, 2132-01 #### [facility] ([id number]) [address] [address] Hematocrit (Bld) [Volume fraction] 34.6 % Low 35-47 [facility] Comment on above: Performed By: #### C BC, CMP, FEPR, 2532-0, 3084-1, TSHR, 2276-4, 2284-8, 9 #### [facility] ([id number]) [address] [address] Hemoglobin (Bld) [Mass/Vol] 11.9 g/dL Normal 11.7-15.5 [facility] Comment on above: Performed By: #### C BC, CMP, FEPR, 2532-0, 3084-1, TSHR, 2276-4, 2284-8, 9 #### [facility] ([id number]) [address] [address] [place] [address] MCH (RBC) [Entitic mass] 30.9 pg Normal 27-34 [facility] Comment on above: Performed By: #### C BC, CMP, FEPR, 2532-0, 3084-1, TSHR, 2276-4, 2284-8, 2132-01 #### [facility] ([id number]) [address] [place] [address] MCHC (RBC) [Mass/Vol] 34.4 g/dL Normal 32-[address] [facility] Comment on above: Performed By: #### C BC, CMP, FEPR, 2532-0, 3084-1, TSHR, 2276-4, 2284-8, 2132-01 #### [facility] ([id number]) [address] [place] [address] MCV (RBC) [Entitic vol] 90 fL Normal 80-100 [facility] Comment on above: Performed By: #### C BC, CMP, FEPR, 2532-0, 3084-1, TSHR, 2276-4, 4-8, 2132-01 #### [facility] ([id number]) [address] [place] [address] Platelet mean volume (Bld) [Entitic vol] 9.4 fL Normal 7-12 [facility] Comment on above: Performed By: #### C BC, CMP, FEPR, 2532-0, 3084-1, TSHR, 2276-4, 2284-8, 2132-01 #### [facility] ([id number]) [address] [place] [address] Platelets (Bld) [#/Vol] 181 10*3/uL Normal 150-450 [facility] Comment on above: Performed By: #### C BC, CMP, FEPR, 2532-0, 3084-1, TSHR, 2276-4, 2284-8, 2132-01 #### [facility] ([id number]) [address] [place] [address] RBC COUNT 3.85 X10E12/L Normal 3.80-5.20 [facility] Comment on above: Performed By: #### C BC, CMP, FEPR, 2532-0, 3084-1, TSHR, 2276-4, 2284-8, 9 #### [facility] ([id number]) [address] [place] [address] WBC (Bld) [#/Vol] 11.3 10*3/uL High 4.0-11.0 [facility] Comment on above: Performed By: #### C BC, CMP, FEPR, 2532-0, 3084-1, TSHR, 2276-4, 2284-8, 2132-01 #### [facility] ([id number]) [address] [place] [address] COMPREHENSIVE METABOLIC PANE Charles 09-17-2023 Albumin [Mass/Vol] 3.4 g/dL Normal 3.2-5.3 [facility] Comment on above: Performed By: #### C BC, CMP, FEPR, 2532-0, 3084-1, TSHR, 2276-4, 2284-8, 2132-01 #### [facility] ([id number]) [address] [place] [address] ALP [Catalytic activity/Vol] 71 U/L Normal 39-130 [facility] Comment on above: Performed By: #### C BC, CMP, FEPR, 2532-0, 3084-1, TSHR, 2276-4, 2284-8, 2131- #### [facility] ([id number]) [address] [place] [address] ALT [Catalytic activity/Vol] 11 U/L Normal 0-31 [facility] Comment on above: Performed By: #### C BC, CMP, FEPR, 2532-0, 3084-1, TSHR, 2276-4, 2284-8, 2132-01 #### [facility] ([id number]) [address] [place] [address] Anion gap [Moles/Vol] 11 mmol/L Normal 5-[address] [facility] Comment on above: Performed By: #### C BC, CMP, FEPR, 2532-0, 3084-1, TSHR, 2276-4, 2284-8, 2132-01 #### [facility] ([id number]) [address] [place] [address] AST [Catalytic activity/Vol] 13 U/L Normal 0-41 [facility] Comment on above: Performed By: #### C BC, CMP, FEPR, 2532-0, 3084-1, TSHR, 2276-4, 2284-8, 2132-01 #### [facility] ([id number]) [address] [place] [address] Bilirubin [Mass/Vol] 0.3 mg/dL Normal 0.3-1.2 [facility] Comment on above: Performed By: #### C BC, CMP, FEPR, 2532-0, 3084-1, TSHR, 2276-4, 2284-8, 2132-01 #### [facility] ([id number]) [address] [place] [address] Calcium [Mass/Vol] 9.0 mg/dL Normal 8.5-10.5 [facility] Comment on above: Performed By: #### C BC, CMP, FEPR, 2532-0, 3084-1, TSHR, 2276-4, 2284-8, 2132-01 #### [facility] ([id number]) [address] [place] [address] Chloride [Moles/Vol] 104 mmol/L Normal 98-109 [facility] Comment on above: Performed By: #### C BC, CMP, FEPR, 2532-0, 3084-1, TSHR, 2276-4, 2284-8, 2132-01 #### [facility] ([id number]) [address] [place] [address] CO2 [Moles/Vol] 24 mmol/L Normal 22-32 [facility] Comment on above: Performed By: #### C BC, CMP, FEPR, 2532-0, 3084-1, TSHR, 2276-4, 2284-8, 2132-01 #### [facility] ([id number]) [address] [place] [address] Creatinine [Mass/Vol] 0.46 mg/dL Normal 0.40-1.[address] [facility] Comment on above: Result Comment: METH OD TRACEABLE TO IDMS STANDARD Performed By: #### C BC, CMP, FEPR, 2532-0, 3084-1, TSHR, 2276-4, 2284-8, 2132-01 #### [facility] ([id number]) [address] [place] [address] eGFR (CKD-EPI) NON-RACE DEPENDENT >90 Normal >59 [facility] Comment on above: Result Comment: Reported eGFR is based on the CKD-EPI 2020 equation that does not use a race coefficient. Performed By: #### C BC, CMP, FEPR, 2532-0, 3084-1, TSHR, 2276-4, 2284-8, 2132-01 #### [facility] ([id number]) [address] [place] [address] Glucose [Mass/Vol] 78 mg/dL Normal 65-99 [facility] Comment on above: Performed By: #### C BC, CMP, FEPR, 2532-0, 3084-1, TSHR, 2276-4, 2284-8, 2132-9 #### [facility] ([id number]) [address] [place] [address] Potassium [Moles/Vol] 4.0 mmol/L Normal 3.5-5.[address] [facility] Comment on above: Performed By: #### C BC, CMP, FEPR, 2532-0, 3084-1, TSHR, 2276-4, 2284-8, 2132-01 #### [facility] ([id number]) [address] [place] [address] Protein [Mass/Vol] 6.5 g/dL Normal 6.0-8.0 [facility] Comment on above: Performed By: #### C BC, CMP, FEPR, 2532-0, 3084-1, TSHR, 2276-4, 2284-8, 2132-01 #### [facility] ([id number]) [address] [place] [address] Sodium [Moles/Vol] 139 mmol/L Normal 134-146 [facility] Comment on above: Performed By: #### C BC, CMP, FEPR, 2532-0, 3084-1, TSHR, 2276-4, 2284-8, 2132-01 #### [facility] ([id number]) [address] [place] [address] Urea nitrogen [Mass/Vol] 8 mg/dL Normal 5-23 [facility] Comment on above: Performed By: #### C BC, CMP, FEPR, 2532-0, 3084-1, TSHR, 2276-4, 2284-8, 9 #### [facility] ([id number]) [address] [place] [address] FERRITINon 09-17-2023 Ferritin [Mass/Vol] 11 ng/mL Normal 11-307 [facility] Comment on above: Performed By: #### C BC, CMP, FEPR, 2532-0, 3084-1, TSHR, 2276-4, 2284-8, 2132-01 #### [facility] ([id number]) [address] [place] [address] Folate [Mass/Vol]on 09-17-19 24 FOLIC ACID 18.1 ng/mL Normal >5.8 [facility] Comment on above: Result Comment: NEW REFERENCE RANGE Performed By: #### C BC, CMP, FEPR, 2532-0, 3084-1, TSHR, 2276-4, 2284-8, 2132-01 #### [facility] ([id number]) [address] [place] [address] IRON PROFILEon 09-17-2023 Iron [Mass/Vol] 52 ug/dL Normal 50-170 [facility] Comment on above: Performed By: #### C BC, CMP, FEPR, 2532-0, 3084-1, TSHR, 2276-4, 2284-8, 2132-01 #### [facility] ([id number]) [address] [place] [address] IRON BINDING 580 ug/dL High 250-425 [facility] Comment on above: Performed By: #### C BC, CMP, FEPR, 2532-0, 3084-1, TSHR, 2276-4, 2284-8, 2132-01 #### [facility] ([id number]) [address] [place] [address] IRON SATURATION 9 % SATURATION Low 15-50 [facility] Comment on above: Performed By: #### C BC, CMP, FEPR, 2532-0, 3084-1, TSHR, 2276-4, 2284-8, 2132-01 #### [facility] ([id number]) [address] [place] [address] LDH [Catalytic activity/Vol] on 04-29-2024 LDH 124 U/L Normal 100-235 [facility] Comment on above: Performed By: #### C BC, CMP, FEPR, 2532-0, 3084-1, TSHR, 2276-4, 2284-8, 2132-01 #### [facility] ([id number]) [address] [place] [address] Natriuretic peptide B [Mass/ Vol]on 09-17-2023 Natriuretic peptide B (Bld) [Mass/Vol] 66 pg/mL Normal <100.0 [facility] Comment on above: Performed By: #### C BC, CMP, FEPR, 2532-0, 3084-1, TSHR, 2276-4, 2284-8, 2132-01 #### [facility] ([id number]) [address] [place] [address] TSH WITH REFLEXon 09-17-2023 TSH 0.78 uIU/mL Normal 0.49-4.67 [facility] Comment on above: Performed By: #### C BC, CMP, FEPR, 2532-0, 3084-1, TSHR, 2276-4, 2284-8, 2132-01 #### [facility] ([id number]) [address] [place] [address] Thiamine (Bld) [Mass/Vol]on 09-17-2023 THIAMIN VITAMIN B1 See Below Normal [facility] Comment on above: Result Comment: NOTE [...] developed and its performance characteristics determined by [facility]'s [facility] [place] ([facility] [email or web address]PL[facility]). It has not been cleared or approved by the FDA. -[facility] is regulated under CLIA as qualified to perform high-complexity testing. This test is used for clinical purposes. It should not be regarded as investigational or for research. Test Performed By: [place] [address] Policy Writer Typist: Colin Cisneros III, M.D. CLIA #[id number] Performed By: #### C BC, CMP, FEPR, 2532-0, 3084-1, TSHR, 2276-4, 2284-8, 2132-01 #### [facility] ([id number]) [address] [place] [address] URIC ACIDon 09-17-2023 Urate [Mass/Vol] 5.1 mg/dL Normal 2.6-7.2 [facility] Comment on above: Performed By: #### C BC, CMP, FEPR, 2532-0, 3084-1, TSHR, 2276-4, 2284-8, 2132-01 #### [facility] ([id number]) [address] [place] [address] VITAMIN B12on 09-17-2023 Cobalamin (Vitamin B12) [Mass/Vol] 185 pg/mL Normal 180-914 [facility] Comment on above: Performed By: #### C BC, CMP, FEPR, 2532-0, 3084-1, TSHR, 2276-4, 2284-8, 2132-01 #### [facility] ([id number]) [address] [place] [address] TSHon 05-25-2023 Thyroid Stimulating (3Rd Generation) Hormone/ Tsh 2.200 [facility] CT abdomen w conon 3 CT abdomen w [facility] [place] [address] [place], [place] [address] CT Scan Report Signed Patient: Laura Alves MR#: [id number] 3 : 1985 Acct:[id number] Age/Sex: 37 / F ADM Date: 04/10/23 Loc: CT Room: Type: [facility] Attending Dr: Shun Hill MD Copies to: [...] Stan Owens M.D.04/10/2023 4:03 PM Dictation Location: [place] [address] Transcribed By: [facility] 04/10/23 1603 Dictated By: Stan Owens DO 04/10/23 1556 Signed By: 04/10/23 1603 Normal [facility] HCG ( test) IA.rapi d Ql (U)Ordered By: Shun Hill on 03-15-2023 HCG ( test) Ql (U) Negative [facility] HCG,Urineon 03-15-2023 Beta HCG ( test) Ql (U) Negative Normal [facility] Comment on above: Result Comment: PERF ORMED BY: [place] [phone] PATHOLOGIST ALUMNI COORDINATOR MARINA AYALA M.D. Performed By: #### U [facility] #### [facility] [address] [place] [id number] [facility] 03-15-2023 L Specimen: [id number] Received: 03/15/23 Status: BUSTER Fuentes Num: [id number] Spec Type: Surgical Subm Dr: Shun Hill MD Tissues: A Colon Biopsy (SURVEILLANCE BX) Procedures: Deepti CHILEL/Pierce L4 Age/ Patient Sex Location Account Attending Physician Laura Alves 37/F [id number] Shun Hill MD SPEC NUM: [id number] RECD: 03/15/23 STATUS: BUSTER FUENTES NUM: [id number] SUMIT: 03/15/23 DR: Shun Hill MD ENTERED: 03/15/23 [facility] DR: SPEC TYPE: Surgical DEPT: S [...] The microscopic examination confirms the diagnosis. Specimen: [id number] Received: 03/15/23 Status: BUSTER Fuentes Num: [id number] Spec Type: Surgical Subm Dr: Shun Hill MD Tissues: A Colon Biopsy (SURVEILLANCE BX) Procedures: HE/2, Gross/Micro L4 Patient: Laura Alves [id number] (Continued) Specimen: [id number] Received: 03/15/23 (Continued) Signed (signatur e on file) Winston Donis MD 03/16/23 1737 Specimen: [id number] Received: 03/15/23 Status: BUSTER Sunshinevanessa Num: [id number] Spec Type: Surgical Subm Dr: Shun Hill MD Tissues: A Colon Biopsy (SURVEILLANCE BX) Procedures: RANJANA, Gross/Micro L4 Patient: Rick Alvesy [id number] (Continued) Specimen: [id number] Received: 03/15/23 (Continued) CPT Codes 81031 Specimen: [id number] Received: 03/15/23 Status: BUSTER Fuentes Num: [id number] Spec Type: Surgical Subm Dr: Shun Hill MD Tissues: A Colon Biopsy (SURVEILLANCE BX) Procedures: DUY/Yaz, Deepti/Pierce L4 Patient: Laura Alves [id number] (Continued) Signed (signatur e on file) Winston Donis MD 03/16/23 1737 [facility] SARS-CoV-2 (COVID-19) RNA NA A+probe Ql (Resp)on 01-16-2023 SARS-CoV-2 (COVID-19) RNA GEORGE+probe Ql (Unsp spec) Positive [employer] Other HIV 1&2 AB/AG Screen (P24 AG )on 12-13-2022 HIV 1&2 AB/AG Non-Reactive [facility] Hepatitis B surface antigeno n 12-13-2022 Hepatitis B Surface Antigen Negative [facility] No Panel InformationOrdered By: Rae Agudelo on 12-13-2022 [facility] Rubella IGG immune statuson 12-13-2022 Rubella immune IgG <0.90 NON IMMUNE [facility] Syphilis Total(Unknown Syphi lis Status)Ordered By: Rae Agudelo on 12-13-2022 Syphilis Non-Reactive [facility] COVID Quick Testingon 2022 Result Negative [employer] Other COVID Quick Testingon 2022 Result Negative [employer] Other COVID Quick Testingon 2022 Result Negative [employer] Other COVID Quick Testingon 2021 Result Negative [employer] Other Consent for Treatmenton 05-21 Consent for Treatment [id number] 0 [id number] 318#1.00CD:127 [facility] Coding Summary.on 05-28-2021 Coding Summary. CD:[id number] XEa6xJh+PGhlYWQ+PE1 VLENxX13gzZHqtW9HN5 yGSX7SMWMCGCSMOB8RB F4nuVC3KTrbC1IvkgJa CmkwdREaKG58BUm0NQK 4lQilHBfuaK5haPXpT0 e0RfVjEP30yD40YQhoE FGwLvF7GpTsiylbwXYu G8dcFfMawOMcUbs+PHR hYmxlIHdpZHRoPScxMD GnDcLjgXvfHT8yXr4cQ GVyLWNvbGxhcHNlOiBj w7feVUGzKYhyBH4pzLa kE1CbrPO3VLHkv6o0Ms 48dHI+XBJdKMJ2hAfsO Rzwk394XtIod2fsBXB0 vJWuFZspUYT2B36yt7W 4LIJcBJRnEIC0xAR4hK 4dmEwojffwY8IpiDPlL hP5TGD5gXRazM8mcRzo ekrxoS4mVjv+G71JNA2 SMPCXRP3MOwj5I5ZsKv wvdHI+HN90XPSfGR12j YMstVCnl7sdtXl2XeHa EGGgPIX5yOnqHZqjm0V jGFVdX03chQRzj4W5PQ CwbSzneRVsZkVbbCL2f N3qCZtajxeeq4gbwssc Panat6ojdn76uD89Z12 qSWghYZZhZTN8CMTxSB GujLyker7zyQ4tCh5+I Lxfl1pkm5fvkMm7AsWz YVNtfbWntGxzJEO8u6F cBr11N6ZunRksr5XjKz w2tm94jXRuy6B3uCY2S BeyBZEdpD9xNTlzRyQ4 HWDvUzVskD22aKUrAWa uLl2mlBfjcBiwJW5cJG ZrncuyRDNgaM5gTBViq NSodMkrCR2dIMGpxwqg t490TwAjKXD7XPInwMA eN3GbhT8tDuEoICOtIL LoC6FrbGWbYNjiC729Y MlpFuR3BPSlmpVxE3Gz KUHsuAdxFvH2z4T1Qv4 Yk7UwhogeWUV1YHomKC IbZoH4LuGwJyX2L8IwK lg4SGYjgQitSO5gY7Xe FZEwrfzaoqxxiJW0JVP gPVNqtC73iNAlUChkEn 4fo3A2y845KYVhYTJlq N20Gc9xvAvvVOHcyCGM xL8xavkfx5fogplbFuH qVLBbVRz3BCf4OACbtE grBdQxWWN3XkK8RSZ8n BJgnV3snQzajhxprL5o Oyc+N89xuE5xNFC1LVQ 4fkbqPBVycaJfCK27TX 08F2KqZlnygWRtjYW+P WUuviXsfZvrCR0hNbHj j4lor7JmMQelM9KyUIH gNLqxWag4CDKgSDI0zX Z1gB3aKCHqBExvq0L7r QD1X3OrqvZybr2go8gq LIHfTOghW35exHWpw8N 4UECfwJJ6XJCwiPqgAz EwbX57Xhz+PGNvbGdyb 8BwCnetx0whb6hltOp9 IjMwJSIgdmFsaWduPSJ 1c8YfLg20B34bCQumAG RoPSIxNSUiIHZhbGlnb j9viF6gMt6+PGNvbCB3 kWI2yG6aYVAeQqZ7SAm bO495NdLblNLaNxbmf2 brm2vthCp2ZtUuIPFng iTbfUesRCH5l6RyWh56 N44nSXyfVFGtAEFvIZU rLAZhnDfakm8wlZ2wXe 8+VX6vl8tnvv83xB12b HI+FZPfXBE7uQsuEQfw JDVezH1aGPxiLvL5DOQ vOiNrzF97wOLtDUygMh 1bsLftzMmwPC6cWFSpt rdhb007BbTqr6ntESNb cBNiYNpeCWA9H21uj6G 7NDIuZRDmBXX3pYG7rG 1hbGlnbjogbGVmdDsgd zEgxZvoDMqhCEjcO476 IHRvcDsnPlBhdGllbnQ sEmAkYWa8P4IcOtu9WA CelErpDC0amHGuLMjzM d4hiQsktCobED9fJNZj ghpct454KhOzd5uzXOW voKWyKYeqWUO7R31is1 H2WNNcDPNaXBU8dBD8w P5kbNaiglqesSIxqSbt wiXpxAeuVFirGZbbU40 6IHRvcDsnPkJpcnRoIE KnoBU0SA17YI90iLXdg 4B4fUB8A3SiEHZrdese uapqdKB2EFPyPEHrcA7 3By3fkIixPc6eYTDyUM I5CWUybJWhF7FhhX0iA aZeETMhQLRkF9OgfPKw ZMeeO241PAwlXkQ6JAN rbsPvH9WpPGHbcKdiXd K1m8Z2Uh9HD1N1LG14Z R43xXXtu4O3fKP1G7Gg DFSqsnvfqlgyyQV6CTT kZSBcaE19Tx7arCygBq 1pVPBqKWP0YRDkfXStW 2HfqY3sNmXpKCDaPZZf T5QsgSAgBLdsJ852TIf uQgH4RIVfnyOmI3MgKF MobSpsWjZ5s1P4Pi9NS Gm7HW24MW09gNGgh6U1 rNJ8Z7RyVVCorhymcsr wmXV9BFYpNHBthO62Rt 6swYzmNq2mICLeUNB5Y DHmgVXmR2CtjL4uLeXv EVQhOXTrY4PzyBZfQMu iS437ANpeLuG6ZLRwsi XgA8MrILEopXcvYrY1n 2H3Qz0MMTTvRZ32QOX4 mOZ4NY65ID74Q3ViNjw vdGFibGU+PHRhYmxlIH dpZHRoPScxMDAlJyBzd EnxYB3jTk4aEZHvTUUf sJgiqGBiVsIax7aqBCY dWIlsOX1vgUgaQ1MydH Z6EPGum0r8Px67N66zR 3JvdXA+VGXsqZW9aBU1 yZ5uHgUxXoP6GWcrW35 1BuGdiTEaPqmch1vcn5 brrBt7JmY8HEYrffWwk QanKGM3v3UwOo66O31e IHdpZHRoPSIxNSUiIHZ mjKyphy2wtC1iZj6+PG TolXU3eXI1uG4qHcFjT lS4KHhuS805CbGzaBSi Vyril7jhr7rxvJw5EfT fQMNvitZkxJbqMLG8c3 GnVz78Y8PzxMrdm7KmL ck5fx45hNCjj6B7dFQ3 R6KdFRZirstbfMHpzLp wQU1sOVVwdwaaJTMouX 7eDJHxY7p8DkNsNvD2W PrsH6HqecG9PUCxkEVa FGlkMLL9O22pp8I6HFG vBMOaJER2fAY4iC1gxE lnbjogbGVmdDsgdmVyd JuuEZclWFloY876CVBc lGfpCXQmeD0vPFFggCP ycRnxAV3gELIuzlgaVi iSJD0FNCUWWhzaHIiOH PEXYVZLZH77HN70eKTk o4A6vKY0B4JqGFQctul ukiclrYB1UCJfAGZrfZ 76jPSnDBlaCf2pg4Q8y 506EOKzALSfjD33Ih0o jOxoGHTrkAXAuB9ruji np8rhjrzqYdSbWPMzID w3DAn7FUPdjSgsZnMkH EI7AbN4TET4xZJzsR5q iBbrwsjmmT5bLbg+MTI dLYchLWz7SKyjaYC+PH AwUMT3oXjdZUpwTZQuu P2kOABbI6e0UdGwIaG1 RFxfQ1LwVBMufqfuMx4 0sV5mJsJdQlX5JNdrM4 LznxP2DEAwpCLvRCroT XQ8S47wm3Y1YPBxTUQp NRU0vON9jI1amJzvfvl gbGVmdDsgdmVydGljYW jeFYldX788JHVsdFwvV aX5DXqjLMZbZJ54SM09 zQIjj8P9xXB1C5OoHCH ooyvjrinvbVG7EAXmQD OjbN54mMQtHPceHe6yd 7F2s448GNWzSWVyeF24 Xk5bwRsrKANeiOIZaP5 rxzhxg0cplsvfBnLgMC XfCZj7AHd2PUFvcQheB yStXNY2RlO3YNJ7pRNm aG9ggPoqutfodX1pHkg +ArQeYYkhRM11VN51hK Imi0B0wWY1G2XyWLLdm qktcnyggBK3ROOhVNDu gU46hGJoPZtgLd4fs4Z 5q989BZRqHIPkiH55Bb 8reIdyBRYmsGKSrJ7xq dhwd5cwmrhcRpCrXAUl OUo3BNp1UCOdnXmcRjD cLZE3UqW1PAF0tSOqxQ 4isAhcbyxcjM1rIao+U fRjrURetF4bNR53TC93 G8AnIhbtdESwyPL+PHR hYmxlIHdpZHRoPScxMD DnRbRlrOycCH9uXk0sC GVyLWNvbGxhcHNlOiBj a5eaUDJcZUnhPM5xtXo kI6KluUE6VABrj4c9Oq 54P63sL3PltXT+PGNvb IU7rCO8eG3kSqDtPsF7 MHriR620AmHmaTLyHtf tq2wad0ejhMx2CrTjAJ EfarZfcOasIER3v5SgN a07X33pPIamMVDwRAQu NZZgLKLkdIroxk6lnL6 wIi8+IZUozXF2kYF6pC 7qBgFmXnA2BKlvV012O wTlkZQtDgnuJ03xK7Ky dXA+JEYdUjc0GXVloFf oZU3poAJoOSwwOl3dUZ M5BqBjEpPmISasB3HdW KEweygxcoxxcUC2LYGs TIFwjF42Za7ixCeoJh8 mBMPdZNL9NNGzmCNgA8 HheE6zRdMaNXZzSTYeJ 7BzxQClQNdnI817UJyn WtF8HYJopoBwG7SpDZW laAtuMlC7j8G2Gw0PhI zyvIDoQR3kRtYcNVt3M 2YhHjp6QXAtwUxyOE4o xKVhYBzpVw8goVhnmDj pMS9cQYDzqiupb630Qb Ynb8nxUGOmvJNlSVxvF GA4J25sf9G7UYZxFFCs TQK0cCM4mY9pxAffjhr gbGVmdDsgdmVydGljYW xfPAskM212PGAvyIxyA vSNYfs0R0VfMek0EIXq gKyjCY3fdNNeKVgqHw1 ksJwpbNabIX4eKGUrcr cgi879CdBpn6qpXQTrn RIiAWwjPKX4M36tq8D4 ZLGzTHJdMCZ5kIB5mW4 hbGlnbjogbGVmdDsgdm JvpUurTMtxCTyzI767L RIimLxbXs5PNrv2U0Vz Vec2XNMlbLjvZW5pwVH hBSouKe7sqUqjoDshRG 0qXHAlicnru427SgTvm 3mhRRTenHNhAEutPIB4 Q72rl1G1ZEZqAWPxQUN 6jDU9vK7gtZbpqjbqzE VmdDsgdmVydGljYWwtY GegY406LFUawEyzKbHp eWVyOjwvdGQ+KA64xs9 2J4AdFhuiIzj3EJEaXV N6hAQ2sC6wTANnTJgjs 2E6rWX4M5PshcCtcn4x b2xs (more content not included)... Normal [facility] Priority Order-Juan 2021 Priority Order-STAT Comment Invalid Interpretation Code [facility] Comment on above: Result Comment: Rece ived Performed at: [facility] [address], [place] [id number] [facility] Mina Jones Performed By: #### S ARS-CoV-2, GEORGE, [id number] #### Mark [facility] [address] [place] [address] SARS-CoV-2, NAAon 05-25-2021 SARS-CoV-2 (COVID-19) RNA GEORGE+probe Ql (Resp) Not detected Invalid Interpretation Code Not Detected [facility] Comment on above: Result Comment: This nucleic acid amplification test was developed and its performance characteristics determined by [facility] [place] - 2. Nucleic acid amplification tests include RT-PCR and [...] detected) result in this assay. Performed at: [facility] [id number] PhD Shalom Gonzalez Performed By: #### S ARS-CoV-2, GEORGE, [id number] #### Mark [facility] [address] [place] [address] Family Medicine Phone Visit - Telehealthon 05-22-2021 [...] 6 months ago. Has been using [employer] tlea-cqc-thscpog with moderate improvement. Review of Systems Fatigue: [...] only communication with the patient located at [address] [place] [address] [phone], with no one else. If it is [...] verbalized understanding Ordered: Rapid COVID Antigen ([facility]) Telephone Est 5 to 10 minutes 81923 2. Fatigue (R53.83: Other fatigue) see above plan, rule out covid. Ordered: Rapid COVID Antigen ([facility]) Telephone Est 5 to 10 minutes [id number] 3. BMI 27.0-27.9,adult (Z68.27: Body mass index [...] 1035F Telephone Est 5 to 10 minutes 80171 Follow-up With When Contact Information Irma Burt [...] Methamphetamines, Pre (more content not included)... Normal [facility] Comment on above: Result Comment: Elec [...] height. This can be done either in Stateless ([place] or metric measurements. Note that charts are available to help you find your BMI quickly and easily without having to do these calculations yourself. To calculate your BMI in Stateless ([place] measurements, your health care provider will: [...] problems. ? BMI can be measured using Stateless measurements or metric measurements. ? To interpret [...] 01/16/2005 Document Revised: 04/19/2018 Document Reviewed: 03/20/2018 Elsevier Patient Education ? 2019 [employer] [facility] Physician Orderon 04-27-2021 Physician Order [id number] 8#1.00CD:127 [facility] Coding Summary.on 11-04-2020 Coding Summary. CD:[id number] HUj3zMk+PGhlYWQ+PE1 NOBUyT21omDGllD0AL3 wSPM9ITQNEMBTGGS2QB Y6eqQF3VGuiS5EneoXj QhbpgUOlUW45VSi0LRJ 4vIzkDTwlrF3ngBJbL2 o8UxItOB40xU39LJknO BVtJkE2AtLfrgcuaJDy Z6bzSeLhoOTrLiu+PHR hYmxlIHdpZHRoPScxMD ViBvYfcVdbTJ1bQe8hV GVyLWNvbGxhcHNlOiBj e6uqPLJmJHmkNK7ipYn jM4LrcBY2DUGtm9w1Kq 48dHI+AICyWCG2dDhcP Cnhw820KkSqt4uqCGV1 yBDhBKhlAIP0S20qu4E 5QWBqEIFqBQB4eUW9hK 3veSrdggzhU3JffHAgK bM8VKS7wCRhvL0noPrb sfgauP6qKjn+H57TKQ4 LAOPHFR1FVia0W4ZyAe wvdHI+YT74NIPtAM95b TNwjDRnn1dqiWh6QtSt DXTuJXQ0qWuhFLezg9O oHJWmM76fmWKcd2Z4QR KilNukuIZyAxQkoZS9b O1kHVsyarsyj3nbwjod Xjvzt9bekh77eD77J47 oESpoSMUaMVE8KKJoLP EyzFnows4jmZ8tQa8+I Yeto4fil0qqzZj5AxXg UWKxogImfRthUAO3h9L kOq83K9JirDafo5RaIa n8dg71hUQoy9H3mAN9O DihEPEhkT4lTPxqCiX2 FYXkJwQbmW92fMDjIXm sWj6uiVzxyKktWF1sWJ KnuahvICLvlN7vQDVac SJdqRtiED1sQNPnujem f559ExWvTGA8YCAooCE dR3OwrH6iWhNaHCGiMK BrB2EthBZnLJpyB357J GtuMwA4ZNVzzmEmS9Xg ZQNaqTffOyD4u9W1Ry5 Yc3FjburmWKO4XWuuND A5IdB7FyZdTiZ7P1YlJ jf1QOYdyPspFX1bN4Gq ICNwlneebrvnaUG8XMC jHUStxW54kJGsXEkwCy 9jc8X8n516HVPgCXVub K40Qp9gtYznVKMuaLOU uV3dfzqhu6gqhyzzNnX dYKPiGEb4LPr3QIOjnV nkQnWsYJH3UiK3LOQ5f YAppX5saRmgmawzfT9c Oyc+A25cuN8sICZ4UEC 9avqfGCHbcaJlCK27YO 91S7UwEpwokQBfnKO+P OXtmhOwvCatOF1vMdOp y0fgw1SuVUwqS9BdZAG bLXpuXnd2DYYpRGQ4lH Y0hU7zOGVvZMqrp9F4c PN8P9VnflPger9lt5va FXEiZJdjW99aiJHot5A 5IAAjbHF8QRIfpCmpUv UbjP51Adk+PGNvbGdyb 8HuTtwqs4whp9fopJn9 IjMwJSIgdmFsaWduPSJ 8x0MaTo64Z94sJNbqLK RoPSIxNSUiIHZhbGlnb q3phP4pZh4+PGNvbCB3 tSW9qR3fIRNsOsE8BLa aG917UeQhqMPvHzkmc7 ovw4zxfTt5QsXdYYDyd xTffYxkMNN3o4LeRk57 B39kLKjtYSMgRNYcRVH mHUEehRcfek2obW4xRa 8+ER3zi1ghvj18vT11y HI+RCZmFRA3lYnzFXtr XEBywS4aNTddXrW2VLU oJdLbiE33qUTvWKbnYn 0yoCjezRdnXV6rBSXxa sqqc400UkBkt4xgAKAy wGVnLWlcAOT6L41tq0C 5DPUjRKIyVWP8eEX8sV 1hbGlnbjogbGVmdDsgd qNrcVsxDIgiWFovT054 IHRvcDsnPlBhdGllbnQ vBxDdFXl0E6MjXol0NK MrqUcjYC1cjQIoOQclE p6lvQytxWuwGL8fYNQl gtqsv193XcUmp8htYFD nxOCzIMboIDH8D12ye6 C5UTYpUSVuAJG2yQL8g D9cbTmpqouxwTZbzXxu alJcmHofJUbxEWsbL20 6IHRvcDsnPkJpcnRoIE AtoCW3MV40YO25lYLvh 9U5gUY0E7VaZIOkeaig rdsbuMR5RXOpFZCyaS6 0Ug5liKixOo1iPJRpKR E8YBCvpBCbP6ZgtY6sS lQhAPUnKZJsU0TebVJr ACuuE749VKnhGiE7ESA wsePvK6ReFHEzkGbcLl R2m6K9Kz4ZN6B1TL04U W58fKZlp4I5wZJ1M5Iv HEIfbypzbhvzrRC9XNV eAOOljO22Gk9glBewYm 4uLULxTFQ8WXIfcPMjY 0EyaY7lMaTdYALjYYYp X5AzqZRfEUelC852KCx yJoW8JMLaktKyU2FuKH EicCkoZyV7x9X1Yn8YZ Ir1UQ03AY40hMFgw0I1 wTS5X9VzJEVjtfinino lmJI1PCWyFAOuwD23Kh 1sfEthWl5fVXUtMFI0G GHceGXaZ5FnwX6uDyRo JZFuDAMnE3QovDUfCCr oT705JJphGiX8JIFtrb UxW7EaMJUmbXdpSfH9s 7X3Zl2JVPMhHB14BYC4 bWY6PB78BZ26Z7AyZle vdGFibGU+PHRhYmxlIH dpZHRoPScxMDAlJyBzd PnjTB4xSk3mKTLfTXQe cOjizBFrQpJqz2jpLUE mNNhiKP3ywZlcG1AmeT F1BHMlw1v0Fo39J59xL 3JvdXA+IEOsyPK0sNG0 sH2dVqWdHaA4FCmjU18 5GtQwrXPwEonmo9szu0 exsKx4VmI4SDPztbGwr IjrYSL4s3UwPt72F43x IHdpZHRoPSIxNSUiIHZ lxRhcjn0ojO6fIm9+PG HjcIH6lGA2pF8bYfIcK mD6APfhE816JoTjcDCv Kmvkg8hya2bcaCu0HcI pTQDhrrAosZwpZOJ8i0 PxQx50J9XajFrrn2AqR ap3bi46wRYzl3I8yLD7 K8KaDMIsllqwpPEgsZd tFE1dMRUhxiceJPBwdI 1oZLJqZ3y4HjXyFkM7W YcyS2DhspF4MBUdeOMy BDzgPGZ3Z58uw1J2RMF fGNNyABL5gSD4xU2wxD lnbjogbGVmdDsgdmVyd SuwDRuyIJkkN873DGLc zMdzTWFtmR9dIBWvaJI mqRddQT1bSJDoswvxGw vTMG7RHGQZKnxmPAjLC FLCEUGIWP30KH57bLIt y4R8jJM6S5DmMUKjfdh rukwhzYE4MMDzOHUoaK 72bIGkSQeuCf1bj1O6l 069ABEgKEHefE76Gt2y rHcqDLGowFOFgH0pliz pf7durwxcXdXdHTPaJN g0AJh6FITcmTlmUkAuR VH3JdX8ZVS8yMOysF3j kWiutjfziF2kNqh+MTI qMSdcZUs6VXyzrTH+PH IeDCU0qUvtGTqhFDWqj V5fWDQoS9o7WxIrEeS9 BQwaR2QuPHUibjnhJv6 8kI5iHrKzWmZ5NXjnD5 MwglV1PRChqEDxNGjsE ZW7I12ve5A1YXNgDZUz CZR1nQA7pL5qfLekibu gbGVmdDsgdmVydGljYW zfKAfcR227GHPxiAxiR lA3QXvfDIEtIM36IP43 xPFon2O2bBA8H9ZpAJC qgslejpywmGE0JERlGT JjaD71pUZsRXkpZf5df 4M5l858MQMvVZNyfW75 Gg7hhBvwNUXxrPQGvM4 nzghfr8lcmtehIbXvVO YgPTm6OFs0UKIvsUamA fEfIMC1GjC3URZ6uVIw bF7bnQnoxamhvI0vHhk +EjTwRLrmLQ08WY83cP Ivy3Z0vYS4K1DaUWXgw xgvdvolxAU3JCLyBFAp xY38oVYsHYetZp6hc1H 9v456JOLxGMJyjB28Se 2fqXncUERqwMPVeM3jt akif2qfnruhEnZqUHYj SUm9WGo9KGHijLvnMvJ cVBI0QzF6JLA1fTRgwP 0nyRcmnzydtV0rLev+T 5I0vCE3eWOkgEqjnOQ+ OR67ef84D4NhQxjyZux 6LNByCLH0cWM5aG4nAR AuGEwti3P7iXD9Y0Gop xFiog0ev2kjOOGrJFji I75fkKBfo3H4PWTznCS 5DUZwnZvlHkFqwE16Nv c+GMXxoIgrg5GvWijqn 7oei5jazOt1IiSpCKVc hwFgbLxmETK6d2EsZg9 3Z58zRObfFLGoCHNqYO ZxMNGniMxnef0vuG9jZ i8+MEFxwSQ6mNS9lO1k DuAgOsE9OTclA417KcO nhNWdVaukl8yvl7lnqA k9DaByRIUmapDdpUzhZ HV1q4GbNm14L0PkdLid l2PzPet2zg93eBEkw8Y 6oFY2P6HmNLJskrhliW VbnZllEQ4iTQBwalieD JGmvM7qIQCzY5c7QgJx YgB9GVxtC0KalkS8TOG kvJWnFUJivQDGpS8gpt ioo5fgsmfeDlUdJCWdG Vx2GWk2YZUwrLuaCuLh NQO9AaY5GFY6hFIjfJ1 wqLczrmdczG0pYso+UG f1v3zlsHBoEJ2idAJ7Y G19ZG58rZOrp4I1eAO5 N5ZkQRFbwwuccuirvKV 9JKHrRGZjtB80Cb0agL zuMr7wXWTbASZ9EADmx QRmF0GfoQ2wAmXbCUIh BPZeP7OfaNAvFCcrG02 1RTbcKtZ5FFRpofQvF6 IxKUEnjAmhBnD8m1X6Y m3ZTC37BW01GY37xGPs y5S8kYZ5Q5HhPXGhpjp latfnuJP7IZUqZPHtfS 84Xm9hwEzjNr0jRVPgP DK2MQBhaYCsC2FttQ5i IeWpGMAsBLAbZ8VbwDM fWHboX446VFfzVtQ1JO ZvdhMzW9IdSVFahLkeT vY0c6G2Gy0NLd43RA85 OS45uAShm5S7wAQ3Q4N nWBCuwtjuatbhrSP3TT TwABZdqJ73Tp2onXiwD o9gOIQrAMO1FUQbnNVv F3GtlG6uYqXeCKQgPZD hJ1EmkJKlNDjlH078AR jwOkM4DPRtyzUyR1KsV ZOfuHvqUuO6d8U0Pj4H OBqoqvf8F3LiOvwboNR +YI33MUJhYW34lTMyuW Pin2ggeNt3UrZdQWBsZ HH6rXlaTUazw4LzVCAh Y29s (more content not included)... Normal [facility] CT Chest w/ Contraston 10-29 CT [...] 300 Contrast amount in ml's: 100 Normal [facility] Coding Summary.on 10-28-2020 Coding Summary. CD:[id number]:[id number] MTj2jGn+PGhlYWQ+PE1 EDJWvU27hhZLzoT0HR3 kLQK6QGFOWSXAEXK2PA L0gqDL2SBfeG5ByysMh LxbrkEFkPO34ZFf6AKX 8hDpoPGwkwR9ifNDuS9 w3EuRiSW96oE88PQacT XVjXbX0HiDmchihbAJs L0ocQqSmpKUfQpw+PHR hYmxlIHdpZHRoPScxMD WzCeDuwPpjKF2pCf2eN GVyLWNvbGxhcHNlOiBj h5zsOZGbIGwbVJ0leFe gZ0YfgWK3GSRax0f9Gh 48dHI+VDZdJXK4jYbcW Ojin924ZbHme7hhJDW9 jAHdQYhxBVI1S22fz4D 7WDNrQVZeUDT7wYQ2rJ 2idFpckqsfE7AwmFCaL eX6QTI9sOYriO6fxLjl jrjdtD4dNnl+E46IXK2 SPOJZTI2ZZhm1K4RtJg wvdHI+PH28BEMqZU84b MQjcURul7hafGf7HdBm HKBcTXM4mQmuXDhje6B zQZCrZ54jdAVai5F9GG EloPcmaWVfCvGgwXG0j T9kIFojgagqr7grkfto Sffmj0uvsp06sB79R00 mDMxsYEGqROG3FGQoCT FxfSknqj2mcN5zEe5+I Syud9cjf4tyiOj0JkKg IQSobxCqkOeiCFB0y9R sAi11I1VyyLgtg3BcLf k6eo56nNAoy6P3kKZ2P BodYFTnhV7eJIhiHgJ4 BCYhCgDrpS98wVAvPVg hSr8vwDopmEmsQT4oAR XijxbrPITrmK0gCHXyc TRkmXjySK1hURQuiumm p416NgUtDSO9TWWejOX xF0EfoS9vFyCmOFPtJA FxS3HsePXrYLiiE863F BhrMsI1WDZfjtMqE4Fc MSNapGftRzN6k3V7Af2 Xf0AkljiaMPI8EVqhRR W9GpFpYzTkOpS0G3CtC ou3NHBzbAxrDW8wD2Xi SPVjajoekbxfcGU6RHP tLDUjrD91kPTwYRfdFp 4wk9G4b023GPMvGAOua C77Xr0umAhhFAKptSSZ gJ8xjqulu6fbchzpQvY eCKVkNIq5BGb3XLWzjN msFfThNJP6LkM8PVR3f DZqvE0gbEnohbdajZ5o Oyc+C06wvJ7jXLQ1YMW 7damwMHHaajVjWY21CZ 37W0HxCkdslFAvzDW+P QXthdSjqUgxNN7cKsFu d3ypm0TjXBybN6XkSAP uKZdbSpk4COCqXWH0mM A5yM2vATBsOVvcs1A8d HG9C1GqtwLqvi4lh6ig PIQtILiqE71qjISvm4C 6GZJmlFD5HIEvcHuqIo RouS63Cve+PGNvbGdyb 7QkNtjit2map9gqyMp9 IjMwJSIgdmFsaWduPSJ 5e6BiXk33I01dBZlxZU RoPSIxNSUiIHZhbGlnb l3pdP6dQe2+PGNvbCB3 aGJ1aT3dPMGgMlA5XQy yG563UuQrcVSbCpiem4 zly6bjsKq0QgBwVVHxd qGnmKuvNYN2o4GiFu55 C09dWQnwRQZgIAGqMSE gRRBydEetpt3dqH9tYs 8+AO5fh5avyd66nE43s HI+XESvDDV8zSwdFZpo AKBaxZ2cFOgeZkY1FHS jKoEtyB62nNQiDGpwIw 6ehFpowXpnCV0mSRSgp ectk167EpHnn7tnIUBr jCPoYZrdMRT2Z01sx9N 7GJJvOAOgHDU2kIM7xT 1hbGlnbjogbGVmdDsgd nQdtSbnGEpvKZilN381 IHRvcDsnPlBhdGllbnQ hDxXdBFw7E1BuZti7PK BmlGzcEK8hzIRtXAghW b7bbWeujUqpWM8cVTMk pnnpa070RvLio7kcHNK sjXDkZZqnGCN5R90me0 M6UBZjFVQmJOO8sWD2j H5jfSwtlpvrgMVpnTmo ppXnnIkwMOopROhxB43 6IHRvcDsnPkJpcnRoIE EyjST6FA79JJ17aQCtd 2R0sUN8Z9SfVYOrkgdx vqytmJT6GJQsAWEuhI2 7Dy2deBdsOv8fFCBpIP V7UCLcqLHdH8SzzM9lP aPqFMJnDACgU7BgvTGc MDqpL235EGflGaF5LNK vabYsU1CqLQKawKesOb V1i1P4Qo5AW4J5EM08Q U39eQMgl1P6sTZ9X4Nk EOAwifujnvxwwNW7JWJ eKWDvbC64Jq2rdHorFw 9pDNFrVNI5ACHlrDXmC 0SmtF1yShVcFQPlMSJo U1NmqGZwEFltZ922WDd kOzL5MIKklaCeH3CqYZ SepLnjBcL5y6T8Ku7SL Cy0QS59AM40pWJxm9N6 rWZ6O1YtFWMzolnytjj bbYB6PVMsSHOavC53Sc 6wmPbyZh6oFYHuQNV4V NYojAErT5XtsN1cZsSh LUNoMQAfU7OirKZtFGa lH461JGvzXjW4NWEefk SfA9YsREUtrBmbEwH7t 1L8Df6SEHTmCH38DLN8 hSS9MD61BS83D1EcCjq vdGFibGU+PHRhYmxlIH dpZHRoPScxMDAlJyBzd UycZL4nNd9ySERfEIDo gMlrvYNqXaBnj5chXWM cJBuhSK0xoNgkZ1LprY E7SNNft4w8Yo62A86pW 3JvdXA+HSMeeIW1aTZ2 hI2yYaTnZpT3SLldA92 4BpDifKJxEblvf4bzp0 ejyFx8UtZ4TCVhitJna LiiTKQ7x8QfPn77V30v IHdpZHRoPSIxNSUiIHZ owRnuog3jhG0vAk1+PG IvjDN0sJP7gA4gQeEqM jQ3TKjvT803LrVwvPMx Ilgtm8nnd2giiLu3HoK hQQUuzpDsyInhQRZ2y9 YxSj80T9WqnJjsd3OyK hu1ur32qIHsp7M6pJW6 A3DhBQOgdabkkQIvcCw jYP4jLRIsxwvnPRAfhT 3xIPMdI4z4KvQqYdC1Y EcrM5UizxP8CSIxuGHf QOlwPNS9B63sv0W7NPP vUMSpETG8fDQ0dH3jaJ lnbjogbGVmdDsgdmVyd QwgQMfxIIkfO611INAd yGosATZqgB3kPLMcoRD ioXvbGG9lPBMaunccXn hZFA6KOGZLBpopEKbXV XOLESNLHX58NX64tOJd h0U7pHH7S0ZnAWEaqjp sxrhjcTO5DGXaVMHptB 66sKCtGIxkIw1bq6X1b 953KGSpYVYzaN79Wr5g gTmaAKHmkAFGfI5dfwz jh4rfplupCqKfTEZqXR b4YKo6HTWdmSbuLzCbT LX2ZwN3SJE5rGOzcQ6s yQxqdyjiuE1jYkz+MTI dKPalJOq3TWjjnEB+PH LmKKG3bDfiZHmjGHTdp Z0eXEGkE3b3YzPiTvS0 AGpzZ2RmKCGyjqilNd8 9jX2gEeBmAbS5VVcrB7 LmpaP8FFIlhUWbYKoyT RX5B94we7F9JSAnXLYs HTJ1aBV1yK9pgSrfrze gbGVmdDsgdmVydGljYW byCEojJ142IQZdlFbgI jY8GZzkCCIlJT75TC59 uGUxw8H9qZN9U1NhRSS hlokbeekpiTK3YQMbTU LbyN07iRBfYRpqLd1ym 5N1e367UWXuYEIvcV09 Oe9ghNjkSOSgxCTMlP7 kkcblw8tvoycnWsUeER TfCRi6YXc2HZJejYiqY uSdQDV2RlP8ZMX9sISj iR6efNcciblcwR0ySqv +XwUyMVvpFO08YY21lG Hqw0E8mKY6F9JyNGLdj afqgegezFE8RGLeVYLm jE46zKAfQIjyFr2xu3L 4c113JFZgQZKbxH86Vu 4bxHdsWOJhhVYQiT8fs ddos8ecdhveKeWsXTOm SOc8XXv6SSEszVwyByR zSJQ4QrC3AQY6uKLvaU 6toVwijoqfkQ8rAgm+T 0C1dIR5jJYmuLvlwWY+ MN52wv76E1DnOmcwRve 6CVCuUEE2kYY1mS0zGI GiSYhen8P7cWM5O5Tqo fVivz4nt3apSPIpRJxe P99yiEUxt8P0BAWsiWC 2TEBvkYzuBgXaeE83Ri c+HDPdmXjjo2WwHpxbt 1vck1umkVx0ZkTsFIKo pfWcwLnwFFX5n9TkDp6 1Y64hNWxbXQYbOOLhAY GhMUItoEvjzs8itR0jC i8+SQJvzRA7fNC3wJ0w PpAxJbQ5AOcjI851AjE qxBHuHvkpp4zyr4dacA y1ViTzHOZsfhVtsHfyT YE3v3RdGu08O5HhiHmh o0DbLzf4aj45tPFgq1H 0lLA2U4SlTWYtfnyzpS NsqMrwEK7bKLYkkhckU MSaxD1rAJNzN8e2ZbTg IgP0KNbsG0UtivY9VVX vcUYjZYGxlPHLtZ1ahp vnz3pqjuiuUgLiXEJqO Ut7HNx0YOFxqEakPsEp NVC5HqD2WHH3oOTblS5 yjNozwrqquG8mRuv+UG r2z7ogoEKfUU4odHZ7I Q66AG11yNChl2V4oHH3 N0KrOQLafrusjenpvCN 1KYBvNQRncG98Lt4zfP mjWa5rKDRlAFX2NWTjf SDgB2GnoC3cFgTpWHDn VLIpC7QegVKoSKgsY44 7RZujOvH3KYKfkzSkB8 LqMNGgqHjkPyO5t2N0S w9XPK39GK91WU24tREe g7M3yWK9C3FzBGBawbn tfmlebAQ2WDEgMSVisO 54Na3mrNtjMo2aRUHjJ MN5UXIquQXbB3NpnG7a RdCtSUUwJUSsN2CzrHU pBQzeF187TEnvOyK4PZ WpcrIjS4FjWTQetEhnG lQ7o0W9Pb7GRm23KB07 GU15hGNtf3U7pHK8M3L tJOSditgnsrmiqUP9FP MgGOSrsC69Ba0uwUuwP r0iLNEhLZH8THTowYGw R0JzhD6xZdIqZZLeQFI xP5OcvTVkTMinH796GJ xrKvZ8PARyoxUyL4QqR RRjcBqoBxI1m5F8Wu6H GHgdocb5N1XeMzawxYY +OS65JHSuOL69hBOqrF Xdw8yoqKi8YwTmGWEvE FX9rSrePBtel8EpXKIp Y29s (more content not included)... [facility] Consent for Treatmenton Consent for Treatment [id number] 44#1.00CD:127 [facility] Physician Orderon 10-21-2020 Physician Order [id number] B8#1.00CD:127 [facility] Consent for Treatmenton Consent for Treatment [id number] B4#1.00CD:127 [facility] Physician Orderon 10-19-2020 Physician Order [id number] 446#1.00CD:127 [facility] XR Chest 2 Viewson XR [...] Ball M.D. Transcribed by: SHAYNA Technologist: BECKI [facility] Vital Signs Date Time Vital Sign Value Performing Clinician Facility 07-26-2023 11:27-0500 Body height 170.2 cm Kaitlyn Jasso MD Work Phone: [facility] 06-12-2023 13:00-0500 Body height 170.18 cm Shun Hill Other [employer] Other 06-12-2023 13:00-0500 Body mass index (BMI) [Ratio] 35.24 kg/m2 Shun [facility] Other [employer] Other 06-12-2023 13:00-0500 Body weight 102.06 kg Shun Hill Other [place] [employer] Other 03-15-2023 12:29-0400 Diastolic blood pressure 89 mm[Hg] DO Irma Burt Work Phone: [facility] 03-15-2023 12:29-0400 Heart rate 70 /min DO Irma Burt Work Phone: [facility] 03-15-2023 12:29-0400 Respiratory rate 16 /min DO Irma Burt Work Phone: [facility] 03-15-2023 12:29-0400 SaO2% (BldA) [Mass fraction] 100 % DO Irma Burt Work Phone: [facility] 03-15-2023 12:29-0400 Systolic blood pressure 132 mm[Hg] DO Irma Burt Work Phone: [facility] 03-15-2023 08:54-0400 Body height 170.18 cm DO Irma Burt Work Phone: [facility] 03-15-2023 08:54-0400 Body weight 90.71 kg DO Irma Burt Work Phone: [facility] 02-08-2023 14:45-0400 Body height 170.18 cm Shun Hill Other [employer] Other 02-08-2023 14:45-0400 Body mass index (BMI) [Ratio] 34.92 kg/m2 Shun Hill Other [employer] Other 02-08-2023 14:45-0400 Body weight 101.15 kg Shun Hill Other [employer] Other 02-08-2023 14:45-0400 Diastolic blood pressure 80 mm[Hg] Suhn Hill Other [employer] Other 02-08-2023 14:45-0400 Systolic blood pressure 131 mm[Hg] Shun Hill Other [employer] Other 01-16-2023 10:35-0400 Body height 170.18 cm Aydee Vaughnmond Other [employer] Other 01-16-2023 10:35-0400 Body mass index (BMI) [Ratio] 35.2 kg/m2 Aydee Nadiya Other [employer] Other 01-16-2023 10:35-0400 Body temperature 98.3 [degF] Aydee Nadiya Other [employer] Other 01-16-2023 10:35-0400 Body weight 101.97 kg Aydee Nadiya Other [employer] Other 01-16-2023 10:35-0400 Diastolic blood pressure 66 mm[Hg] Aydee Nadiya Other [employer] Other 01-16-2023 10:35-0400 Respiratory rate 18 /min Aydee Nadiya Other [employer] Other 01-16-2023 10:35-0400 SaO2% (BldA) [Mass fraction] 98 % Aydee Nadiya Other [employer] Other 01-16-2023 10:35-0400 Systolic blood pressure 105 mm[Hg] Aydee Nadiya Other [employer] Other 09-23-2022 10:45-0400 Body height 170.18 cm Aydee Nadiya Other [employer] Other 09-23-2022 10:45-0400 Body mass index (BMI) [Ratio] 35.13 kg/m2 Aydee Nadiya Other [employer] Other 09-23-2022 10:45-0400 Body temperature 99.2 [degF] Aydee Nadiya Other [employer] Other 09-23-2022 10:45-0400 Body weight 101.74 kg Aydee Nadiya Other [employer] Other 09-23-2022 10:45-0400 Diastolic blood pressure 80 mm[Hg] Aydee Nadiya Other [employer] Other 09-23-2022 10:45-0400 Respiratory rate 18 /min Aydee Nadiya Other [employer] Other 09-23-2022 10:45-0400 SaO2% (BldA) [Mass fraction] 98 % Aydee Nadiya Other [employer] Other 09-23-2022 10:45-0400 Systolic blood pressure 125 mm[Hg] Aydee Hearn Other [employer] Other 09-04-2022 11:20-0400 Body height 170.18 cm Aydee Hearn Other [employer] Other 09-04-2022 11:20-0400 Body mass index (BMI) [Ratio] 31.32 kg/m2 Aydee Hearn Other [employer] Other 09-04-2022 11:20-0400 Body temperature 97.8 [degF] Aydee Hearn Other [employer] Other 09-04-2022 11:20-0400 Body weight 90.72 kg Aydee Hearn Other [employer] Other 09-04-2022 11:20-0400 Respiratory rate 18 /min Aydee Hearn Other [employer] Other 09-04-2022 11:20-0400 SaO2% (BldA) [Mass fraction] 99 % Aydee Hearn Other [employer] Other Encounters Encounter Date Encounter Type Care Provider Facility Start: 12-06-2023 End: 12-06-2023 ambulatory IRMA YI Not Available Start: 11-30-2023 End: 11-30-2023 ambulatory SAGAR R LUKE [facility] Start: 11-21-2023 End: 11-21-2023 ambulatory SAGAR LUKE Not Available Start: 11-14-2023 End: 11-14-2023 ambulatory DILSHAD SANTAGAN [facility] Start: 11-07-2023 End: 11-07-2023 ambulatory SAGAR LUKE Not Available Start: 11-07-2023 End: 11-07-2023 [facility] Start: 10-22-2023 End: 10-26-2023 ambulatory [facility] Start: 10-22-2023 End: 10-22-2023 ambulatory [facility] Start: 10-09-2023 End: 10-09-2023 ambulatory IRMA YI Not Available Start: 10-01-2023 End: 10-01-2023 ambulatory CATHERINE GASPAR [facility] Start: 09-20-2023 End: 09-21-2023 ambulatory KAITLYN [facility] Start: 09-18-2023 End: 09-18-2023 ambulatory SAGAR LUKE Not Available Start: 09-17-2023 End: 09-17-2023 [facility] Start: 09-17-2023 End: 09-17-2023 ambulatory [facility]LYN [facility] Start: 08-31-2023 End: 09-04-2023 ambulatory FROYLAN RAMOS [facility] Start: 08-15-2023 End: 08-15-2023 ambulatory IRMA YI Not Available Start: 07-26-2023 Chart abstracting Kaitlyn Jasso MD Work Phone: [facility] Start: 07-18-2023 End: 07-18-2023 ambulatory SAGAR LUKE Not Available Start: 06-20-2023 End: 06-20-2023 ambulatory Shun Hill Other [employer] Other Start: 06-20-2023 Telephone encounter Shun Moncada [facility] Start: 06-19-2023 End: 06-19-2023 ambulatory SAGAR LUKE Not Available Start: 06-12-2023 End: 06-12-2023 ambulatory Shun Hill Other [employer] Other Start: 06-12-2023 Office outpatient vi sit 15 minutes Shun Hill [facility] Start: 05-01-2023 End: 05-01-2023 ambulatory Shun Hill Facility:[facility] Start: 05-01-2023 End: 05-01-2023 ambulatory DO Irma D Burt Work Phone: [facility] Work Phone: Start: 05-01-2023 End: 05-01-2023 Patient encounter procedure DO Irma Burt Work Phone: [facility] Work Phone: Start: 04-10-2023 End: 04-10-2023 ambulatory Shun Hill Facility:[facility] Start: 04-10-2023 End: 04-10-2023 ambulatory DO Irma D Burt Work Phone: [facility] Work Phone: Start: 04-10-2023 End: 04-10-2023 Patient encounter procedure DO Irma Burt Work Phone: [facility]-CT Scan [place] Work Phone: Start: 04-06-2023 End: 04-06-2023 ambulatory Shun Hill Other [employer] Other Start: 04-06-2023 Telephone encounter Shun infante [facility] Start: 03-20-2023 End: 03-20-2023 ambulatory Shun Hill Other [employer] Other Start: 03-20-2023 Telephone encounter Shun infante [facility] Start: 03-19-2023 End: 03-19-2023 ambulatory Shun Hill Other [employer] Other Start: 03-19-2023 Telephone encounter Shun infante [facility] Start: 03-15-2023 End: 03-15-2023 ambulatory Shun Hill Facility:[facility] Start: 03-15-2023 End: 03-15-2023 Admission to same day surgery center DO Irma Burt Work Phone: [facility] Work Phone: Start: 03-15-2023 End: 03-15-2023 ambulatory DO Irma Burt Work Phone: [facility] Work Phone: Start: 02-26-2023 End: 02-26-2023 ambulatory Shun Haleormack Other [employer] Other Start: 02-26-2023 Telephone encounter Shun infante [facility] Start: 02-08-2023 End: 02-08-2023 ambulatory Shun Hill Other [employer] Other Start: 02-08-2023 Office outpatient ne w 45 minutes Shun Hill [facility] Start: 01-16-2023 End: 01-16-2023 ambulatory Aydee Nadiya Other [employer] Other Start: 01-16-2023 Office outpatient vi sit 15 minutes Aydee Nadiya [facility] Start: 09-23-2022 End: 09-23-2022 ambulatory Aydee Nadiya Other [employer] Other Start: 09-23-2022 Office outpatient vi sit 15 minutes Aydee Nadiya [facility] Start: 09-04-2022 End: 09-04-2022 ambulatory Aydee Nadiya Other [employer] Other Start: 09-04-2022 Nursing evaluation o f patient and report Aydee Nadiya [facility] Start: 07-12-2022 End: 07-12-2022 ambulatory Perla Márquez Other [employer] Other Start: 07-12-2022 Office outpatient vi sit 5 minutes Perla Yulisa [facility] Start: 07-07-2022 End: 07-07-2022 ambulatory Aydee Hearn Other [employer] Other Start: 07-07-2022 Encounter for other preprocedural examination Aydee Haern [facility] Start: 07-07-2022 Nursing evaluation o f patient and report Aydee Hearn [facility] Start: 02-03-2022 End: 02-03-2022 ambulatory Maria Guadalupe Powers Other [employer] Other Start: 02-03-2022 Office outpatient vi sit [...] Td Vaccines (3 - Td or Tdap) [facility] Start: 09-17-2023 End: 09-17-2023 Patient encounter procedure 09/17/2023 8:45 AM EDT Office Visit [facility] [address] [place] [address] Kaitlyn Jasso MD [address] [place] [address] [facility] Start: 09-17-2023 End: 09-17-2023 Patient encounter procedure 09/17/2023 7:30 AM EDT Appointment [facility] [address] [place] [id number] [facility] Start: 05-01-2023 [facility] Start: 03-15-2023 [facility] Start: 01-19-2023 COVID-19 Vaccine ( season) COVID-19 Vaccine () [facility] Start: 01-19-2023 Influenza vaccination Influenza Vacc ine [facility] Start: 12-30-2021 Adult BMI Screening Adult BMI Screen ing [facility] Start: 2006 Screening for malign ant neoplasm of cervix Pap Smear [facility] Start: 1997 Depression Screening Depression Scre ening [facility] Start: 1997 Tobacco Screening Tobacco Screening [facility] Immunizations Immunization Date Immunization Notes Care Provider Fa cility 02-03-2020 influenza virus vaccine, unspecified formulation Kaitlyn Jasso MD Work Phone: [facility] Payers Date Payer Category Payer Private Health Insurance [id number] 2023 Self-pay [id number] 2018 Private Health Insurance [employer] A ETNA POS II [id number] 2018-Present [phone] [address] [place] [address] [id number] 1985 Unknown [id number] 2.840.1.442263.3.579.2 .1285 1985 Unknown [id number] 2.840.1.914843.3.579.2 .1285 1985 Unknown [id number] 2.840.1.531872.3.579.2 .1285 1985 Unknown [id number] 2.840.1.492296.3.579.2 .1285 1985 Unknown [id number] 2.840.1.017321.3.579.2 .1285 1985 Unknown [id number] 2.840.1.225378.3.579.2 .1285 1985 Unknown [id number] 2.840.1.006289.3.579.2 .1285 1985 Unknown [id number] 07.06.830.1.104344.3.579.2 .1285 1985 Unknown [id number] 2.840.1.474663.3.579.2 .1285 1985 Unknown [id number] 20.1.049508.3.579.2 .1285 1985 Unknown [id number] 20.1.379253.3.579.2 .1285 1985 Unknown [id number] 840.1.661250.3.579.2 .1258 1985 Unknown [id number] 2.840.1.421439.3.579.2 .1258 1985 Unknown [id number] 2840.1.782411.3.579.2 .1258 1985 Unknown [id number] 2.840.1.070641.3.579.2 .1258 1985 Unknown [id number] 2.840.1.735182.3.579.2 .1258 1985 Unknown [id number] 2.840.1.858507.3.579.2 .1259 1985 Unknown [id number] 2.840.1.551343.3.579.2 .1259 1985 Unknown [id number] Medicaid Formerly [facility] [id number] Private Health Insurance [id number] Unknown [facility] [id number] Unknown [id number] Unknown [id number] Unknown [id number] Social History Date Type Detail Facility Start: 06-30-2020 End: 07-26-2023 Sex Assigned At [facility] Other Start: 03-15-2023 End: 03-15-2023 Tobacco smoking status AZIS Ex-smoker (finding) [facility] Start: 1985 Sex Assigned At Female F [facility] Start: 11-17-2020 Tobacco smoking stat us [facility] Smokes tobacco daily [facility] History of tobacco use Tobacco U se Types Packs/Day Years Used Date Smoking Tobacco: Every Day Vaping/E-cigarettes Smokeless Tobacco: Never [facility] Start: 11-17-2020 Tobacco use and exposure Smokeless tobacco non-user [facility] Start: 07-26-2023 Alcohol intake Current drinke r of alcohol (finding) [facility] Start: 06-30-2020 End: 07-26-2023 History of Social function [facility] Childcare Unknown [facility] Start: 11-17-2020 Alcohol Comment social [facility] Start: 05-04-2023 [facility] Start: 1985 Sex Assigned At Not on file P [facility] Goals Date Patient Goal Desired Activity [...] Mayelin Pinto DO on 08/31/2023 11:23 AM [facility] 06-12-2023 Evaluation note Encounter Date Diagnosis Assessment Notes May, Diarrhea (ICD-10 - R19.7) Patient reports that she is about 7-8 weeks gestational Patient reports improvement on Creon with occasional flare Patient reports that she is taking a fiber supplement May, Fatty liver (ICD-10 - K76.0) Patient did have a FibroScan that indicates fatty liver and minimal scaring, this will be reviewed [employer] Other 11-17-2023 Evaluation note* Encounter Date Diagnosis Assessment Notes Treatment Notes Treatment Clinical Notes Mar, Exocrine pancreatic insufficiency (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) [employer] Other 10-31-2023 Evaluation note* Encounter Date Diagnosis Assessment Notes Treatment Notes Treatment Clinical Notes Feb, Alternating constipation and diarrhea (ICD-10 - R19.8) Feb, Fecal urgency (ICD-10 - R15.2) [employer] Other 10-30-2023 Evaluation note* Encounter Date Diagnosis Assessment Notes Treatment Notes Treatment Clinical Notes Feb, Alternating constipation and diarrhea (ICD-10 - R19.8) [employer] [facility] Encounter Date Diagnosis Assessment Notes Treatment Notes Treatment Clinical Notes Feb, Alternating constipation and diarrhea (ICD-10 - R19.8) [employer] Other 09-21-2023 Evaluation note* Encounter Date Diagnosis Assessment Notes Treatment Notes Treatment Clinical Notes Jan, Alternating constipation and diarrhea (ICD-10 - R19.8) WORSENING DIARRHEA AND CONSTIPATION OVER THE PAST YEAR. DOES HAVE SOME NOCTURNAL AWAKENINGS WITH THE DIARRHEA. CAN GO 4-5 DAYS WITH OUT A BOWEL MOVEMENT WHEN SHE IS CONSTIPATED. WILL ORDER IBS WORK UP WILL PROCEED WITH COLONOSCOPY [employer] Other 08-29-2023 Evaluation note* Encounter Date Diagnosis [...] no improvement in 2 to 3 days [employer] Other 2023 Evaluation note* Encounter Date Diagnosis [...] no improvement in 2 to 3 days [employer] Other 04-17-2023 Evaluation note* Encounter Date Diagnosis Assessment Notes Treatment Notes Treatment Clinical Notes Aug, Contact with and (suspected) exposure to other viral communicable diseases (ICD-10 - Z20.828) [employer] Other 02-22-2023 Evaluation note* Encounter Date Diagnosis Assessment Notes Treatment Notes Treatment Clinical Notes 22 Feb, 2023 Contact with and (suspected) exposure to covid-19 (ICD-10 - Z20.822) [employer] Other 02-17-2023 Evaluation note* Encounter Date Diagnosis Assessment Notes Treatment Notes Treatment Clinical Notes Jun, Preoperative clearance (ICD-10 - Z01.818) [employer] Other 09-16-2022 Evaluation note* Encounter Date Diagnosis Assessment Notes Treatment Notes Treatment Clinical Notes Jan, Contact with and (suspected) exposure to covid-19 (ICD-10 - Z20.822) [employer] Other Evaluation note* Diagnosis Onset Date Resolution Status Diarrhea acute [facility] Work Phone: Evaluation noteNo InformationNort [employer] Other History general Narrative - Reported* Type Description Date Medical History ANXIETY AND DEPRESSION [employer] Other Hospital Discharge instructions Additional Instructions DISCHARGE [...] if you have any problems. -Office number [phone] Work Phone: InstructionsNot on filedocumented in this encounter [facility] SystemReason for visit NarrativeRED EQUINOX, ANTIGEN PROCEDURE TESTNonorth [facility] [employer] Other Reason for visit NarrativeNEEDSNEGATIVE, RAPID COVID TEST FOR PROCEDURENonorth [facility] [employer] Other Summary Purpose Family History No Family [...] section and content) DATE CREATED AUTHOR 08/24/2021 [facility] DATE CREATED AUTHOR AUTHOR'S ORGANIZ ATION 05/09/2023 [facility] DATE CREATED AUTHOR AUTHOR'S ORGANIZ ATION 09/22/2023 [facility] DATE CREATED AUTHOR AUTHOR'S ORGANIZ ATION 12/06/2023 [facility] DATE CREATED AUTHOR AUTHOR'S ORGANIZ ATION 12/10/2023 [facility] EPIC REASON FOR VISIT (unrecogniz [...] Team Status: Inactive Member Role Status Dates Imra Burt , Primary Care Provider Active Shun Hill MD Attending Provider Active 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 [facility]. provides no warranty or guarantee of the accuracy or completeness of information in this document.
[2023-12-13 14:10] VITALS: BP 116/68; PULSE 111
== END 2023-12-13 14:30 | disposition home or self-care (01) ==
LOC: FBCO 07:21 → FBC 13:55
PROVIDERS: Visit Provider Obstetrics & Gynecology
DX: O09.519 Supervision of elderly primigravida, unspecified trimester (principal)
CPT/HCPCS: 59025

== ENCOUNTER 2023-12-17 07:04 | Outpatient (OUT) | payer OTHER, SELFPAY ==
--- NOTE | 2023-12-17 | US_ITS ---
[address] [address] Patient Name: GONZÁLEZ LOMELI MRN: [id number] date: 1985 Sex: F Assigned Patient Location: [facility] Current Patient Location: [facility] Accession/Order Number: [id number] Exam Date: 12/17/2023 13:56 Report Date: 12/17/2023 14:36 At the request of: SAGAR BUTLER Procedure: US OB BPP w non-stress EXAMINATION: US OB BPP w non-stress HISTORY:Multigravida of advanced maternal age O09.523 COMPARISON: Ultrasound OB biophysical 12/09/2023 TECHNIQUE: Ultrasound biophysical profile was performed in the radiology department. BREATHING MOVEMENTS: 2 GROSS BODY MOVEMENTS: 2 TONE: 2 QUALITATIVE AMNIOTIC FLUID VOLUME: 2 PRESENTATION: CEPHALIC HEART RATE: 168.75 bpm AMNIOTIC FLUID VOLUME: 23.28 cm GESTATIONAL AGE: 34 weeks 3 days US/US OB BPP w non-stress IMPRESSION: Total biophysical profile score: 8 Electronically authenticated by: SHIMA PARRA Date: 12/17/2023 14:36
--- OUTSIDE RECORDS SUMMARY | 2023-12-17 07:08 | XMS_ITS | CCD ---
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 Name Role Phone Maria Guadalupe Powers Unavailable NadiyaAydee anderson Unavailable Perla Márquez Unavailable Shun Hill Unavailable MD Shun Hill Attending Provider DO Irma Burt Primary Care Provider MD Shun Hill Attending Provider [phone] DO Irma Burt Primary Care Provider [phone] Shun Hill Admitting Unavailabl e Irma Burt [...] NO PCP, NO PCP Primary Care Unavailable ULKE, SAGAR R Referring Unavailable NO PCP, NO [...] day for 10 day(s) Jul, Active amylase 884076 unt / lipase 92961 unt / protease 893615 unt delayed release oral capsule (3 sources) Start: 04-06-2023 take 2 capsules by mouth three times daily at mealtime Creon 37047-155616 UNIT 2 capsules Orally three times a [...] 1 tablet by mouth twice daily Sutab 7526-466-577 MG 12 tablets the first dose the [...] 5 day(s) September, Not-Taking 84 hr estradiol 0.87393 mg/hr transdermal system (4 sources) Estrogen take [...] URINE PROTEIN 170 mg/L High <120 [facility] Comment on above: Performed By: #### U PCR #### [facility] ([id number]) [address] [place] [address] U/PRO/COMPUTER TECHNICAL SUPPORT SPECIALIST RATIO CALC 0.17 Normal <0.2 [facility] Comment on above: Result Comment: Neph rotic Syndrome is associated with ratios >3.5 Performed By: #### U PCR #### [facility] ([id number]) [address] [place] [address] URINE CREATININE,RDM 98.06 mg/dL Normal [facility] Comment on above: Performed By: #### U PCR #### [facility] ([id number]) [address] [address] COMPLETE BLOOD COUNTon 09-16 Erythrocyte distribution width (RBC) [Ratio] 13.0 % Normal 11.5-15.0 [facility] Comment on above: Performed By: #### C BC, CMP, FEPR, 2532-0, 3084-1, TSHR, 2276-4, 2284-8, 2132-01 #### [facility] ([id number]) [address] [address] Hematocrit (Bld) [Volume fraction] 34.6 % Low 35-47 [facility] Comment on above: Performed By: #### C BC, CMP, FEPR, 2532-0, 3084-1, TSHR, 2276-4, 2284-8, 9 #### [facility] ([id number]) [address] [address] Hemoglobin (Bld) [Mass/Vol] 11.9 g/dL Normal 11.7-15.5 [facility] Comment on above: Performed By: #### C BC, CMP, FEPR, 2532-0, 3084-1, TSHR, 2276-4, 2284-8, 9 #### [facility] ([id number]) [address] [place] [address] MCH (RBC) [Entitic mass] 30.9 pg Normal 27-34 [facility] Comment on above: Performed By: #### C BC, CMP, FEPR, 2532-0, 3084-1, TSHR, 2276-4, 2284-8, 2132-01 #### [facility] ([id number]) [address] [place] [address] MCHC (RBC) [Mass/Vol] 34.4 g/dL Normal 32-36 [facility] Comment on above: Performed By: #### C BC, CMP, FEPR, 2532-0, 3084-1, TSHR, 2276-4, 2284-8, 2132-01 #### [facility] ([id number]) [address] [place] [address] MCV (RBC) [Entitic vol] 90 fL Normal 80-100 [facility] Comment on above: Performed By: #### C BC, CMP, FEPR, 2532-0, 3084-1, TSHR, 2276-4, 4-8, 2132-01 #### [facility] ([id number]) [address] [place] [address] Platelet mean volume (Bld) [Entitic vol] 9.4 fL Normal 7-12 [facility] Comment on above: Performed By: #### C BC, CMP, FEPR, 2532-0, 3084-1, TSHR, 2276-4, 2284-8, 2132-01 #### [facility] ([id number]) [address] [place] [address] Platelets (Bld) [#/Vol] 181 10*3/uL Normal 150-450 [facility] Comment on above: Performed By: #### C BC, CMP, FEPR, 2532-0, 3084-1, TSHR, 2276-4, 2284-8, 2132-01 #### [facility] ([id number]) [address] [place] [address] RBC COUNT 3.85 X10E12/L Normal 3.80-5.20 [facility] Comment on above: Performed By: #### C BC, CMP, FEPR, 2532-0, 3084-1, TSHR, 2276-4, 2284-8, 9 #### [facility] ([id number]) [address] [place] [address] WBC (Bld) [#/Vol] 11.3 10*3/uL High 4.0-11.0 [facility] Comment on above: Performed By: #### C BC, CMP, FEPR, 2532-0, 3084-1, TSHR, 2276-4, 2284-8, 2132-01 #### [facility] ([id number]) [address] [place] [address] COMPREHENSIVE METABOLIC PANE Charles 09-17-2023 Albumin [Mass/Vol] 3.4 g/dL Normal 3.2-5.3 [facility] Comment on above: Performed By: #### C BC, CMP, FEPR, 2532-0, 3084-1, TSHR, 2276-4, 2284-8, 2132-01 #### [facility] ([id number]) [address] [place] [address] ALP [Catalytic activity/Vol] 71 U/L Normal 39-130 [facility] Comment on above: Performed By: #### C BC, CMP, FEPR, 2532-0, 3084-1, TSHR, 2276-4, 2284-8, 2131- #### [facility] ([id number]) [address] [place] [address] ALT [Catalytic activity/Vol] 11 U/L Normal 0-31 [facility] Comment on above: Performed By: #### C BC, CMP, FEPR, 2532-0, 3084-1, TSHR, 2276-4, 2284-8, 2132-01 #### [facility] ([id number]) [address] [place] [address] Anion gap [Moles/Vol] 11 mmol/L Normal 5-15 [facility] Comment on above: Performed By: #### C BC, CMP, FEPR, 2532-0, 3084-1, TSHR, 2276-4, 2284-8, 2132-01 #### [facility] ([id number]) [address] [place] [address] AST [Catalytic activity/Vol] 13 U/L Normal 0-41 [facility] Comment on above: Performed By: #### C BC, CMP, FEPR, 2532-0, 3084-1, TSHR, 2276-4, 2284-8, 2132-01 #### [facility] ([id number]) [address] [place] [address] Bilirubin [Mass/Vol] 0.3 mg/dL Normal 0.3-1.2 [facility] Comment on above: Performed By: #### C BC, CMP, FEPR, 2532-0, 3084-1, TSHR, 2276-4, 2284-8, 2132-01 #### [facility] ([id number]) [address] [place] [address] Calcium [Mass/Vol] 9.0 mg/dL Normal 8.5-10.5 [facility] Comment on above: Performed By: #### C BC, CMP, FEPR, 2532-0, 3084-1, TSHR, 2276-4, 2284-8, 2132-01 #### [facility] ([id number]) [address] [place] [address] Chloride [Moles/Vol] 104 mmol/L Normal 98-109 [facility] Comment on above: Performed By: #### C BC, CMP, FEPR, 2532-0, 3084-1, TSHR, 2276-4, 2284-8, 2132-01 #### [facility] ([id number]) [address] [place] [address] CO2 [Moles/Vol] 24 mmol/L Normal 22-32 [facility] Comment on above: Performed By: #### C BC, CMP, FEPR, 2532-0, 3084-1, TSHR, 2276-4, 2284-8, 2132-01 #### [facility] ([id number]) [address] [place] [address] Creatinine [Mass/Vol] 0.46 mg/dL Normal 0.40-1.00 [facility] Comment on above: Result Comment: METH OD TRACEABLE TO IDMS STANDARD Performed By: #### C BC, CMP, FEPR, 2532-0, 3084-1, TSHR, 2276-4, 2284-8, 2132-01 #### [facility] ([id number]) [address] [place] [address] eGFR (CKD-EPI) NON-RACE DEPENDENT >90 Normal >59 [facility] Comment on above: Result Comment: Reported eGFR is based on the CKD-EPI 2020 equation that does not use a race coefficient. Performed By: #### C BC, CMP, FEPR, 2532-0, 3084-1, TSHR, 2276-4, 2284-8, 2132-01 #### [facility] ([id number]) [address] [place] [address] Glucose [Mass/Vol] 78 mg/dL Normal 65-99 [facility] Comment on above: Performed By: #### C BC, CMP, FEPR, 2532-0, 3084-1, TSHR, 2276-4, 2284-8, 2132-9 #### [facility] ([id number]) [address] [place] [address] Potassium [Moles/Vol] 4.0 mmol/L Normal 3.5-5.0 [facility] Comment on above: Performed By: #### C BC, CMP, FEPR, 2532-0, 3084-1, TSHR, 2276-4, 2284-8, 2132-01 #### [facility] ([id number]) [address] [place] [address] Protein [Mass/Vol] 6.5 g/dL Normal 6.0-8.0 [facility] Comment on above: Performed By: #### C BC, CMP, FEPR, 2532-0, 3084-1, TSHR, 2276-4, 2284-8, 2132-01 #### [facility] ([id number]) [address] [place] [address] Sodium [Moles/Vol] 139 mmol/L Normal 134-146 [facility] Comment on above: Performed By: #### C BC, CMP, FEPR, 2532-0, 3084-1, TSHR, 2276-4, 2284-8, 2132-01 #### [facility] ([id number]) [address] [place] [address] Urea nitrogen [Mass/Vol] 8 mg/dL Normal 5-23 [facility] Comment on above: Performed By: #### C BC, CMP, FEPR, 2532-0, 3084-1, TSHR, 2276-4, 2284-8, 9 #### [facility] ([id number]) [address] [place] [address] FERRITINon 09-17-2023 Ferritin [Mass/Vol] 11 ng/mL Normal 11-307 [facility] Comment on above: Performed By: #### C BC, CMP, FEPR, 2532-0, 3084-1, TSHR, 2276-4, 2284-8, 2132-01 #### [facility] ([id number]) [address] [place] [address] Folate [Mass/Vol]on 09-17-19 24 FOLIC ACID 18.1 ng/mL Normal >5.8 [facility] Comment on above: Result Comment: NEW REFERENCE RANGE Performed By: #### C BC, CMP, FEPR, 2532-0, 3084-1, TSHR, 2276-4, 2284-8, 2132-01 #### [facility] ([id number]) [address] [place] [address] IRON PROFILEon 09-17-2023 Iron [Mass/Vol] 52 ug/dL Normal 50-170 [facility] Comment on above: Performed By: #### C BC, CMP, FEPR, 2532-0, 3084-1, TSHR, 2276-4, 2284-8, 2132-01 #### [facility] ([id number]) [address] [place] [address] IRON BINDING 580 ug/dL High 250-425 [facility] Comment on above: Performed By: #### C BC, CMP, FEPR, 2532-0, 3084-1, TSHR, 2276-4, 2284-8, 2132-01 #### [facility] ([id number]) [address] [place] [address] IRON SATURATION 9 % SATURATION Low 15-50 [facility] Comment on above: Performed By: #### C BC, CMP, FEPR, 2532-0, 3084-1, TSHR, 2276-4, 2284-8, 2132-01 #### [facility] ([id number]) [address] [place] [address] LDH [Catalytic activity/Vol] on 04-29-2024 LDH 124 U/L Normal 100-235 [facility] Comment on above: Performed By: #### C BC, CMP, FEPR, 2532-0, 3084-1, TSHR, 2276-4, 2284-8, 2132-01 #### [facility] ([id number]) [address] [place] [address] Natriuretic peptide B [Mass/ Vol]on 09-17-2023 Natriuretic peptide B (Bld) [Mass/Vol] 66 pg/mL Normal <100.0 [facility] Comment on above: Performed By: #### C BC, CMP, FEPR, 2532-0, 3084-1, TSHR, 2276-4, 2284-8, 2132-01 #### [facility] ([id number]) [address] [place] [address] TSH WITH REFLEXon 09-17-2023 TSH 0.78 uIU/mL Normal 0.49-4.67 [facility] Comment on above: Performed By: #### C BC, CMP, FEPR, 2532-0, 3084-1, TSHR, 2276-4, 2284-8, 2132-01 #### [facility] ([id number]) [address] [place] [address] Thiamine (Bld) [Mass/Vol]on 09-17-2023 THIAMIN VITAMIN B1 See Below Normal [facility] Comment on above: Result Comment: NOTE [...] developed and its performance characteristics determined by [facility]'s [facility] [place] [facility] It has not been cleared or approved by the FDA. -[facility] is regulated under CLIA as qualified to perform high-complexity testing. This test is used for clinical purposes. It should not be regarded as investigational or for research. Test Performed By: [place] [address] [place] Gatherer: Colin Cisneros III, M.D. CLIA #[id number] Performed By: #### C BC, CMP, FEPR, 2532-0, 3084-1, TSHR, 2276-4, 2284-8, 2132-01 #### [facility] ([id number]) [address] [place] [address] URIC ACIDon 09-17-2023 Urate [Mass/Vol] 5.1 mg/dL Normal 2.6-7.2 [facility] Comment on above: Performed By: #### C BC, CMP, FEPR, 2532-0, 3084-1, TSHR, 2276-4, 2284-8, 2132-01 #### [facility] ([id number]) [address] [place] [address] VITAMIN B12on 09-17-2023 Cobalamin (Vitamin B12) [Mass/Vol] 185 pg/mL Normal 180-914 [facility] Comment on above: Performed By: #### C BC, CMP, FEPR, 2532-0, 3084-1, TSHR, 2276-4, 2284-8, 2132-01 #### [facility] ([id number]) [address] [place] [address] TSHon 05-25-2023 Thyroid Stimulating (3Rd Generation) Hormone/ Tsh 2.200 [facility] CT abdomen w conon 3 CT abdomen w [facility] [place] [address] [place], [place] [address] CT Scan Report Signed Patient: Laura Alves MR#: [id number] 3 : 1985 Acct:[id number] Age/Sex: 37 / F ADM Date: 04/10/23 Loc: CT Room: Type: [facility] Attending Dr: Shun Hill MD Copies to: [...] M.D.04/10/2023 4:03 PM Dictation Location: [place] [address] Transcribed By: [facility] 04/10/23 1603 Dictated By: Stan Owens DO 04/10/23 1556 Signed By: 04/10/23 1603 Normal [facility] HCG ( test) IA.rapi d Ql (U)Ordered By: Shun Hill on 03-15-2023 HCG ( test) Ql (U) Negative [facility] HCG,Urineon 03-15-2023 Beta HCG ( test) Ql (U) Negative Normal [facility] Comment on above: Result Comment: PERF ORMED BY: [place] [phone] PATHOLOGIST INSPECTOR METAL FABRICATING MARINA AYALA M.D. Performed By: #### U [facility] #### [facility] [address] [place] [id number] [facility] 03-15-2023 L Specimen: [id number] Received: 03/15/23 Status: BUSTER Fuentes Num: [id number] Spec Type: Surgical Subm Dr: Shun Hill MD Tissues: A Colon Biopsy (SURVEILLANCE BX) Procedures: Deepti CHILEL/Pierce L4 Age/ Patient Sex Location Account Attending Physician Laura Alves 37/F [id number] Shun Hill MD SPEC NUM: [id number] RECD: 03/15/23 STATUS: BUSTER FUENTES NUM: [id number] SUMIT: 03/15/23 DR: Shun Hill MD ENTERED: 03/15/23 [facility] DR: SPEC TYPE: Surgical [...] The microscopic examination confirms the diagnosis. Specimen: [id number] Received: 03/15/23 Status: BUSTER Fuentes Num: [id number] Spec Type: Surgical Subm Dr: Shun Hill MD Tissues: A Colon Biopsy (SURVEILLANCE BX) Procedures: HE/2, Gross/Micro L4 Patient: Laura Alves [id number] (Continued) Specimen: [id number] Received: 03/15/23 (Continued) Signed (signatur e on file) Winston Donis MD 03/16/23 1737 Specimen: [id number] Received: 03/15/23 Status: BUSTER Sunshinevanessa Num: [id number] Spec Type: Surgical Subm Dr: Shun Hill MD Tissues: A Colon Biopsy (SURVEILLANCE BX) Procedures: RANJANA, Gross/Micro L4 Patient: Rick Alvesy [id number] (Continued) Specimen: [id number] Received: 03/15/23 (Continued) CPT Codes 25793 Specimen: [id number] Received: 03/15/23 Status: BUSTER Fuentes Num: [id number] Spec Type: Surgical Subm Dr: Shun Hill MD Tissues: A Colon Biopsy (SURVEILLANCE BX) Procedures: DUY/Yaz, Deepti/Pierce L4 Patient: Laura Alves [id number] (Continued) Signed (signatur e on file) Winston Donis MD 03/16/23 1737 [facility] SARS-CoV-2 (COVID-19) RNA NA A+probe Ql (Resp)on 01-16-2023 SARS-CoV-2 (COVID-19) RNA GEORGE+probe Ql (Unsp spec) Positive [employer] Other HIV 1&2 AB/AG Screen (P24 AG )on 12-13-2022 HIV 1&2 AB/AG Non-Reactive [facility] Hepatitis B surface antigeno n 12-13-2022 Hepatitis B Surface Antigen Negative [facility] No Panel InformationOrdered By: Rae Agudelo on 12-13-2022 [facility] Rubella IGG immune statuson 12-13-2022 Rubella immune IgG <0.90 NON IMMUNE [facility] Syphilis Total(Unknown Syphi lis Status)Ordered By: Rae Agudelo on 12-13-2022 Syphilis Non-Reactive [facility] COVID Quick Testingon 2022 Result Negative [employer] Other COVID Quick Testingon 2022 Result Negative [employer] Other COVID Quick Testingon 2022 Result Negative [employer] Other COVID Quick Testingon 2021 Result Negative [employer] Other Consent for Treatmenton 05-21 Consent for Treatment 149.45.122.20.2021 0 [id number] 318#1.00CD:127 [facility] Coding Summary.on 05-28-2021 Coding Summary. CD:[id number]:[id number] CPe6fPq+PGhlYWQ+PE1 UQQQaP33mfRUqsH9BG1 iFEU4IVUKRWSFGNT9CF E8xxVA6TGpvQ8GypeAi VvljrDGyAM95DMj7ASK 5nQlvZKonfR7dsBSlH8 l1SsUaRO73zF13MNkjT DRmIgZ6YcIzckxqkHLz O0skVmMpmVIbJiz+PHR hYmxlIHdpZHRoPScxMD DvBpXbkIkaNR9eQo8kO GVyLWNvbGxhcHNlOiBj h6saHKTfQWfwJV5laVx iM3XzrFO2YFJfc2k8Vp 48dHI+XOGnAHY3bTxtY Yryt682KlBda9pkLPX0 gLIhJZkmTHO7M64wl6L 2TDFiGHNhYZU0gBK2sN 9zbEaiptelC4MsaNJlH bD0YVC3wUDssF0vrQma mvfdjB8kCrr+K42RZU3 VUJDAYU4LEzm8N9RuDq wvdHI+FX76AZYvCM50q CQeuALpo3mksGr3BoMo NYVvVFL7hGzhPIvwy8P mKLQqD92jvGUze8A9LW AvuVsmuFNxCuQdkJI3n B4yVInwuvzot4xzzkud Sjruy0vqxg10mN19K96 mVLiaOHDsVNY6SJQiFK IhoUwjtr5xlP3sGj0+I Guec7tzv3ooeQz1ElMe BMAcwgLorIluHPZ4i8S kJw92K1KcqDngn4ZdRn r9xs74nJEbe9T8pTZ7M CnmXDUxaA4yTSsaOrL5 FAOnAoJdyI58jGWwFUh kRq1zvQzgnBtjCN7yUA EwdpvgAUBuuJ4bEAPkj IBzfVpzTW2zENUdtdnd j936DsJwHQL8ZEHxcWA bQ4QxoV0aKqDuFDGlDL CtH1AeoAUwLKqeI594L TfjJbR6MCYzudNbT7Yk REGrpZlzFsL4c9M1Qr6 Cu0KdjjrjNAV1FXedBO KpVqO7QvOkUfR2V0ZqF cs5GDSleMfxUD4bR9Pk HARjiflarrefxEJ7KMJ uHCBxyT46fSLnUSmcCb 4sw4M3h738OFRcEDUrb Q39Xw1kiGwyAWJowYYB vP4pubcbz8qiqwztXcQ vURVtRYg2YQo0KCZjdG abSgPgDYW1GrK0TKF6d KCpcZ8dnYymrgqhxJ1b Oyc+S71bsP6hMWG5XPD 0dyqeBCZdhzEyIY15ZA 05I0HwQjoguTXauFM+P ARmemAgpCjzTX9fKrBw k6wqz1HbZZxmX0ToCMW kFSsaHns8TARkWAB0tI R1vJ2wHVVjQHydo6V1w JC9R1UxifZmsj6yd2gl ZYFrJEtjA22oqOEle3H 9BQPziYM2OAVzsIcmIw ImoB07Jim+PGNvbGdyb 9YrQeaiy4hse8hqbGt9 IjMwJSIgdmFsaWduPSJ 6d0FaLz23T41lAQvsYF RoPSIxNSUiIHZhbGlnb x4ikF7iFh5+PGNvbCB3 dGO6sW7eJVQuIsL9TXq mU207OoYmvEVkZupde8 kkf7cfwQf9GhPpEBTdo sCaxXtbZEM6q5CeKt50 D11sTSadTYNuPINoZNJ lBUVfhXjtwl4wiB2rAz 8+XY7qn0jmcr34nX80o HI+UUFrXEP4iMxmTDin WIIkqW0mYAidAhR0CSO zHhOjkC49hTSwUGjvFe 7iuLijdWwyCW9uEQYtx nlfb061KcOkn7vuPQOn vHXbCSojKSW5T10wc3T 7VFSrWTAiQQR4yQC0vM 1hbGlnbjogbGVmdDsgd tKijXujBPhmDUltT025 IHRvcDsnPlBhdGllbnQ kHrRbGVo4J5KsXcc0QE KpzKhdAS9yyLBmOQnpD n7lwVhmsMsfUV6gGKGw gnwcj807CqRpj1zkTAN cbOPaYOrtIXR3Z48uw1 Q8PBVwZHXxEPO4xSG5n B7ryUdzatabvUTkoWck gsShyHzbYBhaROfvD96 6IHRvcDsnPkJpcnRoIE EnbLO1QV46EN75qNCfs 5Y4dAZ5I7VlRKWutvjw ledmwFC5OXBtHFEfgM2 7Sh4zcLbvPv4tYYAaGX R2HIJjlQByB4PxnD0mX mIcWWLjFNQjM2AovXOg YAadV970TLldRsA4EWI gysNgC3McPPWkbUevDa Q1f5X0Wa1LE2T3MO54B A53wUWrw9H4bFN1G9Fx YLJnjuytvclsgPP3HMJ yTRLwkQ22Lj9jiPgyYy 0vSQSbOPI6TWUjzTYdO 4XolW0vIiLsGPAvFHFh N0MrcVWnVKrgG145RXv tLqP8EGWolrWeB9AnUF WkjWtcQjY4q9N7My2IS Wp5IQ30FH27sBDnq0B9 bYW1G8WeMARccdzpfnc xwBV0PLYwYPSxkP27Gc 2tfVilDg5bKXDwMCC2Y SVaeTOqW5MxtU2xJrRw HQIeGUOcW7ElsPWzWKa fX850JAqbWcN4XCTick LoE4GiJVLtcLxgQyD9b 7Z0Bj8WZEHmXB37WWQ4 gJC3FW46TL16I8UyObz vdGFibGU+PHRhYmxlIH dpZHRoPScxMDAlJyBzd SfqAZ5hIh8iMTFcWYWf fHiyeSIaTuWdh4xbUYU uLOkcMF0nkDczK6MmmO P7PPYzk0v0Ck04O30xY 3JvdXA+OELkfIE8oEM3 bD0sZhEzYlV4AMlnS30 9OlFobQMlHhbue7hhg6 eujLh5IgM3VFJrwuOfr NeoBBP1s2PhBi17W94r IHdpZHRoPSIxNSUiIHZ qgMoqyr0xmC8nGr8+PG SxwBI8iPN1eV1xLcZpJ gH8UIuaP136HfSaoTWx Ppeui5yut1dxoVv8FzZ bFVAivmMkdAysFMT1u9 YySj73X0KddLoka0IxW ge6fa94oDQyg8N4vXQ3 G9QwKABtywefxEMwoWb oHR5jIOMurumeWOJrcQ 0cZFLiP9a7LuEbNlM4X GuuB6AwmgF7RFOhiYJf VYdnLGO6A00ig4M0SVB aDIJpVBG7yXN6tX5okO lnbjogbGVmdDsgdmVyd NgbOCjfHAkuG986GTPk tHhwWQVpyY1tUJQkyRV pqUgjBS8vGNUdagesTx kODV2XFKTTHmsdBZlUO OLIVHMWFP92DZ89rGYj y3A9dHE4R6LbKNIbtjc iginszXI9FPFsSVKibS 77nHKkCHiiVm0dw4J8h 076NQXcGFTzgR59Dj2p uFuiAAAejTOIkO9dcua gx5llykhvApJkVZPsPR m9TYi2BRLwaCakGzMdK WA8AaY2WZQ6yJBvvC2l nAhvptjbhX2lAje+MTI nPUwsBWe1TCkxxWK+PH UnMTQ3lLjkXHboSVIsk O9iBLLgV9v6RhWsGfO6 VFfqH6XmTDLhegtvOu7 0rA5bGpEpFwC0OBtoX1 OwhqI6PQAboXBmINcdL TQ7G82ba7O5VAIuDYDm KSQ0bOC8pA5iwXpdvzd gbGVmdDsgdmVydGljYW ruLGxxT634BCBrtHxtV uO0LMpvNMMuJP23HY06 dXZgo5S9yDH4N9YsLVP lcwgyhldrgEO5EAHoPK WfbB64qUSjQXblYr0gl 0S2y082YMQyZCLxnU54 Fc2azDefDJVxzSOWvZ8 okiler4pnifbeUsLhIS ZuRSn6HPh9ZLJlzRtkX wDrYSW6UlR4NSY2nQDs eG4isTycwnphfA5aNio +NuNpJTugTP63BM13xF Xpz6I4aSS3X1ByEVEjp zzffnbkpLT2STFqMPPn yG93pPXkDNbgVp4tj9Z 8a297JWJiXAEvjB32Zx 0aoZfrTABfaGXCgG3qf qbon0wgljwoOnUqSROr QGi0XFr9DIZkgHamPtV oKXV6UoC3XVK8kZUaxP 8ihBquearbrV4qDmr+U wRqvRNcbX5hCN38VD66 P1AzCwwffFJyrDZ+PHR hYmxlIHdpZHRoPScxMD NiKqOinNkpAA2mHc1rJ GVyLWNvbGxhcHNlOiBj j3oyLYVqEUkcOZ8xkQu rL8XteYC0PBIny9t5Ay 77E72nO7FrkSG+PGNvb SD2tLX7dQ3jHeZgNmP1 XDdhJ342IdRpcUFjTkc rb9vmu2frwRj2AnXfFB GiuyTjdSvuNEJ5r3ErH c78G23pENwiMCEiGPNz QHNkWOHenCcaxj3maW4 wIi8+VXJycKF9nLX5oM 0sJqYxFzH3XFdyY160Q eOzqXXwCgvnZ63tA3Dp dXA+EGTuErk4PZSjgCx fQI2krCXtAIyiCe5cVB C4EhAxBuAaPWuwR2FkV NVqaicehscmfXL4KTHo WNLicS00Cg7ewNonGs5 aRMYaFHK0EWQhzYFsI9 LbjM6tCiTzFRElFUXcO 9KaaKUiPZkoJ797HCzm SqQ7QCMwwzVkL6XtPUD foHkhQjJ3m5P0Vb3RlA cdvATpZP2wVvDkYKp9O 2LzRyr8MYTcfOyrII5x bKToEXpyBj5voQeoxLz eSW6vDEHpewqpw573Tv Omf2qkQPUzmIFmTZwrP DD2L09ak9H0VWCnUAMf HFY7zKJ4kH8pdGrggpd gbGVmdDsgdmVydGljYW ieVIfdG202OKNowPckF lJVRdi4B6XxZpb0ADGl pMjsPT8ijOPjACyfYq8 ogHiflJweYJ5qKKQnov pzo663PiYeg0qcMKStj NPoFQsuKLD8S46hv5L9 TWNcUBKsTVR4zLO2vR4 hbGlnbjogbGVmdDsgdm HsmWzwWAnrEFvrU497R WWpvEioUw0KTbm0T7Go Nqa0XXDwwGptIN1liDV pRWwbOf5thXimuHlqWY 9oSAZmeobrc003ZtWny 5unNFZobVVfGJerXRC5 W40mq6R3GKJlKDOaBDB 9rTU3kC6qqXbksizxvL VmdDsgdmVydGljYWwtY UukT140LDFvcCsaTaQb eWVyOjwvdGQ+KB94cm9 1R9KmQcrmZum5HRBxQQ T4lVT6tZ9tDEZhHNkcj 3Z3nRJ7G7YbexPrpl1a b2xs (more content not included)... Normal [facility] Priority Order-Juan 2021 Priority Order-STAT Comment Invalid Interpretation Code [facility] Comment on above: Result Comment: Rece ived Performed at: [facility] [address] [place], [place] [id number] [facility]ly [facility] Mina Jones Performed By: #### S ARS-CoV-2, GEORGE, [id number] #### [facility] [address] [place] [address] SARS-CoV-2, NAAon 05-25-2021 SARS-CoV-2 (COVID-19) RNA GEORGE+probe Ql (Resp) Not detected Invalid Interpretation Code Not Detected [facility] Comment on above: Result Comment: This nucleic acid amplification test was developed and its performance characteristics determined by [employer]. Nucleic acid amplification tests include RT-PCR and [...] result in this assay. Performed at: [facility] [id number] PhD Shalom Gonzalez Performed By: #### S ARS-CoV-2, GEORGE, [id number] #### [facility] [address] [place] [address] Family Medicine Phone Visit - Telehealthon 05-22-2021 [...] 6 months ago. Has been using DayQuil [id number] with moderate improvement. Review of Systems Fatigue: [...] only communication with the patient located at [address] [place] [phone], with no one else. If it is [...] Patient verbalized understanding Ordered: Rapid COVID Antigen ([facility]) Telephone Est 5 to 10 minutes 73299 2. Fatigue (R53.83: Other fatigue) see above plan, rule out covid. Ordered: Rapid COVID Antigen ([facility]) Telephone Est 5 to 10 minutes 53299 3. BMI 27.0-27.9,adult (Z68.27: Body mass index [...] 1035F Telephone Est 5 to 10 minutes 42621 Follow-up With When Contact Information Irma Burt [...] Methamphetamines, Pre (more content not included)... Normal [facility] Comment on above: Result Comment: Elec [...] height. This can be done either in [place] ([place] or metric measurements. Note that charts are available to help you find your BMI quickly and easily without having to do these calculations yourself. To calculate your BMI in [place] ([place] measurements, your health care provider will: [...] problems. ? BMI can be measured using Afghan measurements or metric measurements. ? To interpret [...] [employer] Patient Education ? 2019 [employer] [facility] [place] Physician Orderon 04-27-2021 Physician Order [id number] 8#1.00CD:127 [facility] [place] Coding Summary.on 11-04-2020 Coding Summary. CD:[id number]:[id number] ETw0jDu+PGhlYWQ+PE1 QNYXjY99evQMikW3RJ4 zQPA7MBLJCTVMCRX2AF A9caLC2PAsoQ4MxjrXw EdftyKNtTD99LJl2QRK 8bGrkIQmclJ1flPCkZ5 l3QtGpUS50mO92UCvoM EYeEsR6CnMbgjarxDLu E8obSyRzxPKiSvv+PHR hYmxlIHdpZHRoPScxMD HmFiUweZliGN5pBp5eL GVyLWNvbGxhcHNlOiBj f1tsWCNpQByuZJ3yfBq eE4McxQV9BYIuc2z7Oe 48dHI+TBNrNGS6uXolI Ydfr054CjGzf8bpCJG7 zUShUHlqNJZ6B04rn8V 9VLGlQUTfDWF8kID7hU 0gqKfvccfxK2CqtWEsW oG8APN2jHQgmQ3xwMxr dlddwG8zDon+J71RHB7 LQAQDAD8LVvx1T5VfNv wvdHI+DV83EAPfQX65u YRvcKQgg0zsgTs4OhTg RDHcBKS8uKwnQQrxx8A wRUPtE25wnLMzq6B4FD NigRazsJZnChBzoYQ8l P9yLCkbgupha2vnctbh Zjqud4iogx66xM31G47 uVLgcKFKjSMN0FXMxTG JvhHlska4wtW6kZu3+I Jmtk6euq0pitMs5KpFf XBMqyoCdlOcvKAB4t7C eBz04Q4RlxYxgl5ClNv u7an77kHCna1L4aVO2L YpmWUIpmD4zKUtfPrZ5 NCTbZtDnrZ72iDHkHTb kGc4xxWxctSsfJS0sFR KfpjfaJDPlqT5zHFRra GDtuZelQI3nJAHydgrb g803PvErAYH3BFTmwZP aG0TdjY3kUlDpEOSuIA HhV2WvtBFpLRxtE445V YztDuV7QMQvjvUoV2Lx YZHcnPrfZgW9y4W6Yx7 Ir0CkjsrgUOK0WUwcNF N1TaM4NbJhAfG5G5OyZ wz5PVSfcNpgHT9qJ3Gs DTDzsqfdvlpbfHY6WJA pPPSuoD28hUIgIFomDa 9gk5J7t854OCKkQDGrv W09Ae7ozZsbTAVloNOB oR6ynwtpb3zarrmoUwH uMPVgWLu0WFu9JAQwaN snNuMtTUB7WtJ6LXO9d LCrjJ6biKullcmixV3v Oyc+Y32qaS6xOZC3XYT 9tnorNGZurkSyPM65HX 91Z2FxUrhjjUTqhZA+P FVdwzPlhRutGI1pGbJh k0ssh7NsHNusL9KxVSR bSRecFmo9ZFAsMXW8yX U8sN4oKBQnFGkfc8Z6g IW7Z2GezoFicz8oo9de ZNStYCbcM90jsQEsl3B 3DESkgJX3ZGQnrVrzQt TxmL15Mdi+PGNvbGdyb 3AyDhlyv6uwx3twxRf6 IjMwJSIgdmFsaWduPSJ 7f4TcQa76K44lGHjcPC RoPSIxNSUiIHZhbGlnb c5ytN1fAo5+PGNvbCB3 lXI4eA2qDWDaLyL8BUj aV515SaAzlIPaUzwdo2 xki7mvaTl7GoNbSRQxb wRktUibTWX0f5ZvZo70 S05kPMefKUMvAMTkHTY gNVYrxMkukl7hjR4bDj 8+OC2mt2ktyh79uA81o HI+CSUbVKQ4aMfhORbp DQKdoV0pLEqjWpG1VPZ nUjAfjU80kMOdSRsaOu 9osCttgJuiYV3uSQJlv jijr738BhClk5laKTNa nLBgRTlxQUL3F30rh7N 8VFXpGWOjHZO5aIU5yN 1hbGlnbjogbGVmdDsgd gUzzPejJFvgZIkrB925 IHRvcDsnPlBhdGllbnQ fYuLlQTi3F7SgSbh2SP UnmLrcUS2viNGnFMxyX v2odTfqjXnuEF6mCKXd acslg735ZcBuq9noMTK mxOMpCGxjCAC2L40la3 Y5MRUxXTPbCGL1cQS0y P3zqIjnriridPOujAvs pdRoiRpoEQpjVSfbV46 6IHRvcDsnPkJpcnRoIE GthIZ5JI77RU17rXUhy 3T4gVM6V1NiHMGnsuby mdqpiGI8IAZkWPSgzY3 4Ru1feIgfXq3bZGHqEN D3TBKoiTYsK1OkqB0kJ mVfUGPaIXMaP2JxcDGc ABasA427ELlrMpE2ZKC freSaY4NmYRDcqLwdMc H8h4Z5Ss9LS0E5DA39T A68vZRlo7N0xSU4M0Qx NRNqggfjcnfsyYO6LRB jIVOppJ31Sc4sjVbzIy 6pEMEwLKU0DORknGQkK 1HdtT9zYgSgVQOoLQKe Q6VvhMQbWUxwF949DMj mSsH8ZEBrpmLrU1DhEE DbvZnuIlA7p1O5Ar5LS Sl4SJ63JJ21oRIcq2Q7 yAZ3U3VxUCQnyiwlsov niBX5HPAuCROiwH89Tu 4ykMgrIp8qQZPeRNK8P ATsvIVtD3BktG7zHtYe JIRlHTNpW2NbyYBqUCe nR940UTckOrU7LBOmit HrL6MsHSPfhAeiFjS6y 3E4Bv7JNKJbMU40WMV1 fIK8RJ67CO58I4CqJhe vdGFibGU+PHRhYmxlIH dpZHRoPScxMDAlJyBzd RioFX0pZz1pKXVeQTWm oXmwgCVvGpMfd5tzZUN rPVmyPV2fuArtD2JofQ N7IYOrp6o4Nu91Y55fK 3JvdXA+OXHweTM8jVZ0 mH0oJpDdJaB0WYirO22 5HeMslAGeDppsv7yik0 zjcJq7UgN2STIaldQoq YxbETN9z8VvCx86A83a IHdpZHRoPSIxNSUiIHZ liNfgyr6mwC3zJd2+PG LjmQH2uWG7dM1lXpTdJ yR0MGcwV161MmPkoIGi Vinmd3udu9kbvLv6RyK uLNEyeaDuiIetICH5p5 MoVo75K1BkiAeiu5ZbT bm2rr26iSYpw5H5zYG7 Y9QkNFUqoinibCOwxBp vLF1xYHGdjghdWHFdgE 3rUJVoO9e5DiHnFsG1S PawQ8DfynO1PMLxhKDr VLgqSHT5A35ig6C5YLH jZJQfLFF5kAV1gE5ccQ lnbjogbGVmdDsgdmVyd QiyWUqhRIweG018XFZm yNapOSNsxR9mCUShpCF mhPizZK2vQMYnbeajUa aTJB5FMYFROtnlKDsVS YBQRYLNWB65NL81uRGh e7E1yNG5H5AhYAErhvf rlhlxkEZ6TVIvTAXwoO 82xKNaNRasAa7iv1E7u 794PXYyIUCqqU35Tg8i xEzaPOUhlRVPnJ1bpuq ax2wmthktWdSuIFCqTZ l1INh3PISajXhmVyKtQ KQ7JhF1GWP6yYNcsB4q nNkbmibmbB9oHur+MTI lHTglKEb2HOntfBL+PH UuTJY7gAmuWFuhCGXls B3lJQGgE3w9RoFtTvC5 XSjeW6RgLPWnangsCm5 1jE9wXyEwTgM5TXmlN3 KsnhU2YNVlbUVjNVvkV NE2W98jv0J3IJTqOXRh SUB2aOY2uM2rwYrgutb gbGVmdDsgdmVydGljYW cfPRhrQ721BHWjaJhgM kV5HGsrJTYrBN64FB31 jDViu0H0aLB4S1ZvCEG zlkkcxyztfNU0XPKaCS OlfB56uCJtMVbkEf9rh 8A5u785OMQuOXZytI69 Um8nyGztAIPzjKFJxV2 drjgfk8pmxbeuCiDdOI HtSUo8XVj5BPPqxVyhA sBpRBL7RxX1ORU4xVFj cC8oiWmwcwtwfQ6zXzn +CnOiEKvzQE99NQ36hW Noz5J6sIF4J3TzZQFtu wlzaynmeXD9KTSoRCGx tO09lORsYBllJt8hd3U 2b264QUMwIQOfjC90Go 4omIefRGUdbHQLtK4xt zdqs2yvtouzFxKvJZNw UZq9HVw0QPXefVzaOzR pJKC3EfD2OXS6hBKogB 4agOerjknlxR5pOft+T 9C3pYE4vBTosZbrlNO+ AC45pg53C1VbNvsuTby 2YGGsHRT0pGE5uI6wVY RbLZswq1K2oQQ7R4Qfo aUgtj3cm7oqDJVnDJap J67ecPRmq8N4OZOulYI 5EPIrtVmtLjVoiJ32Qb c+WJRzvKywr5EdTgqyt 8sfs5mdqOc4DsNgINZm fnImxJcgJLW0p4GdDr9 6U51nAVarQMQsQXKuKM BsVIMrjKusnj0uqV2yF i8+MACswRQ1yIF1pI0v LoRaIbJ8RIisP309NqC foNPrAonpt5pnj5fptL p3KjZeYHTscnNwaTpqA YK8o6RiXt72D1JrxMyp m7XkNde7yp53fQLao5U 1pON1L5OqCZBnressoA WumAenFQ4lWZNhlwpeE PFzvO8lKHSwP6v1MeVd ZeI3MPvdY9IfbgC4ABK zqPGcPJSmeKGJdI1xju hsb8rpnkdiZcEpKLJcT Lh5FXs5ERJbbMioZjTx BYI2JrT7CVR1aSEuqY3 neMyxqwdwvQ1wZuw+UG y2p3nnkJIpFR0ggWT3X T26EY08dEBly4D4yOU8 N8AjEGRrxblgiclpiPS 3SRIqOBPikV70Pt1xvR znSe2vXGDsCJX7SJSgw WUyK7GlkD8pIvOrQHOl XXTdF6WnrFAhOXthE00 2KNiyRnY9EECbcyHfY4 GpXYBeoArgJpB1o3E2Y y9NQC53VQ64YS62kNJv b0X0sRL8A3IeGRVfqly eybxtgIF5BBFfDIVwrJ 11Ez5veZiaKv4nZQPmG FK7PFNnxXEcP0GmcN1b ZwXbDVKeVSOlQ1OvpFM uVEssG433RXfjMaZ7ZK JtujMzG6RyQICvkWszH mI0n5J0Zg9YWp99KS70 GP21fUPzg4B7tXZ6G4S vAUCnrdqalccysVK0TB PkLRXcaH61Be4xlOuuC v7vQZDePMT8PTLeoQUm G0VidO7bUlTeMRQeBAS gA9OotGNkXVdgG981SF wqErH4DGKgjhCaC7PuB BDolMagUqG6k8X2Pz9M NApwjkw8U1CjWzqjjFF +BK71PSZcHR12dGDbmK Pal3ibnXb6HnYoAZIdZ TG1oOymUYflk1VmIKVn Y29s (more content not included)... Normal [facility] CT Chest w/ Contraston 10-29 CT [...] 300 Contrast amount in ml's: 100 Normal [facility] Coding Summary.on 10-28-2020 Coding Summary. CD:[id number]:[id number] WLg8uMq+PGhlYWQ+PE1 WPXNuV07kaZVqrO2OO3 iBMP8PUHIYIDHKSD3NO N0cxKH8DGniT4XlxaXe ZgrprILmND27FXm7ETJ 5sVxiLAccaI2arYGfL4 b0ShFlUD26cA96EYpgO MIlPoL7QtYvccjttMJv Y0tfLsXzlYBlOwx+PHR hYmxlIHdpZHRoPScxMD UvBgAjhEcrOT4oDg7aT GVyLWNvbGxhcHNlOiBj m2ioXPCnJOinAW5psXu eS2WscWJ0YQLbj2m8Hk 48dHI+KUFgUIO9iWbfJ Ukiz088FwHka5dzRMG2 nAEyBQwcMOW8O74vm8M 7MOXxPXRoFVT9oOJ1wV 1fbPolmnohV5QesRBdL mA9UHH6bWDzmG9nkDau hsfhhI7qZvt+Y00TJW1 APNNEJC8KHja9N6DaRl wvdHI+CH79RYHeSS70e NKwmIDbu7ewsOc1YcBo GZBxVFP5oShmUXyxd4M eBQObV74kmEHrv2O6SL TkcQkmsLTnGnMftHG0x A4cAScylyxuh5trlzqw Gkstr4yyev91cP63Q58 wVKgbKYZgKOH4RBHzED JyeAahtt6lbE9bCl1+I Jrnp3oeu0hzxDe2WcIt UVOcyoKnaHtxNGC2g3Z rMv08O8ShoBbep0GrIq d1pn90fNUvd9F4rDD5U KxaFCSkwK6tBYksUsA4 AXXmUtPcmN92qBLuAMl kDt2amIhrrUftXW3kBQ VwidbiBERqkG1yITKqi UDhfLhqND9gGUNegfjn h229GcYiREH1TNPokSI zF5AhvL7tPiXuMGLkRA SuC2OtdIIaPAbjM994R SogWmV6IYKlgbHlA7Hd CBSpqVdkOtQ3h6B3Yy2 La7WgghksTIM5TJdpMD K2XgIwMzZdIvF2W3MuY du1NKXjbEhbJG7lW0Ch GLGjgbtnotrlnNA2APL lSWYtyT06rTGzCJesWq 4zt4H9n246VGKfSCRsw R76Oe7igMxoNZFlsWYA lO8qgwiyp7aqayrbOnL sKRDrBNh6WAz7QKBsaD acKbPyUSY4NmO1RZD4n TXzsL0xqGprdyxxbG8z Oyc+N66hhJ7mNWC2UIK 8zzhvDOYbzxKyXC69UQ 57U1EiNjeybFGrgKL+P EZjdqIiaMduUI7gVdYo a4ffw7HuXYblL1IlVNE fZTbqSww6YUGzPHM4kX V4dW6zVKYcHCjbl3T4k EX1Z2GfvpBckj3ti6kt PSHlTDprS15zrNJsv4G 9ULUnrZB6GGPjjLebKd ClxU61Yvj+PGNvbGdyb 8EgRukle5psz4rwxJb3 IjMwJSIgdmFsaWduPSJ 6j7AoAj01K01iCBjkCL RoPSIxNSUiIHZhbGlnb j8hhH1oYo4+PGNvbCB3 vKC6bV0zODEyNpP0RZc eO861GaYmaLYzKsuhp1 bwt5crgGd7ZgJeFHJjw tYmwCeuCRX2o4FeAe07 H14gFMwjYAEqAHSrUXE mQBYonEiliv7clY4lNp 8+FI5ef0uojo75sQ04x HI+BVXzPJX8gNimVGrp GRBlcD2aPUtnOkC1DZQ dBcHlmZ24wMMgNRegKa 8qxZblsGowKY4nFUWql jven009VqHgn2xbYDHp gOHfSNfqBLE6P74dz7F 1DLKkGEBaWMO6hGN8fS 1hbGlnbjogbGVmdDsgd vPfdQjyRSdhOIhzR408 IHRvcDsnPlBhdGllbnQ oBdBuUHt8H1KmFsb3RJ IvlQwdNZ1ltQCsFDgfE a3eaRcboHfqST0qUFOr lojrz957GzOku1tvTKI jlWLdJGqdTSW2K06pg0 W9FJHwXRCoMBI9bZR2t A4tvFgnmtsiwQMyoBxb jjNhjIewRDwxMEarX66 6IHRvcDsnPkJpcnRoIE AahFP3GK07NH18yVHqc 5G1wUW3I6ZqCTAfeyxq ptvelSA2UNGjSRNdfN1 2Zi2qeHqcBc2oGOWeOQ J4HQHviJJbQ6RugN8cJ oHvXILkKQFyZ5JftQUa ICtiA742RTfyQnZ4YDO gxzRpG3GyTVFmwBstHo D5z5L3Sw6CB6L2GG75T S38dLHzm6I7nWO5D9Cg SUUedpjwjcofkEB8BEV rEWXmqE28To0vgBwcFx 6wMHYjDMJ0MNGzgKLwN 4UqcZ4lEqKzQTZkNKDm A4TmyJDbJNcdE307QTt hQfJ6TOKvuoVyO1KjMG XwjBnaXuN0l3B3Rw5VI Nf7XO91TE37rBMpd8F9 cFW2F1FrWEGksfuwvcm swGQ4QEDtDXKbpM47Tn 2boSobVw3eHKQrHGG3Z LRvnVGsE6EohM6nUbGl XDVuYFXhS0NvgEOfCNf kV910HLtxHfY7FQFdrd KlT6AeVRPdqXlgAiD2x 8A8Ju4RFPNmVH86CYD5 fOC1GC52QF10Z4JpXhg vdGFibGU+PHRhYmxlIH dpZHRoPScxMDAlJyBzd PtjBP8nNx9fGISgQROq rJrkrHLoIvHkp2jfIYY zFBmkXX5krGwkW9CbwJ N5MYNwr6t9Ey25P01aT 3JvdXA+SNPqcAO8jPG1 kF5kRsDcKkL4WNcnC36 9CdKzvVScWllef7qns9 mzxNw3FfJ9YRQfinZql GxsIEX2g4IxZv11Z01d IHdpZHRoPSIxNSUiIHZ tgBvzhe7scE5sHw9+PG IzxJJ7rBU7kA7pJjNoW fU9UAszX145MlZsjYLt Nykua9xym0oxtBc4FsZ iERLxqbSdqCetIZI0g2 JpUw55W9NizYjln3IyP qh3km22jTPxc4P5uUI8 E9YhFYCqtvyyaSVbsNy eYL4vGPQlhtasEXWeqL 7gEYHqS4q9LgFdBwO2E UxtS8YzqzE9GGSxgMXo INjpMEB9M93gz8C9KTD lBJWtSKV6pLJ5wP7gnI lnbjogbGVmdDsgdmVyd XotNRsaIWhzI914IMFk cRyxFNAiiV8oVMPxlVH zuRrsCE8fZQLjymlxNt lIDU5SUHAKPdekQEmYY ZKTXQENHY32YB88vOMp y5D1wDS9F2UhTZBissy mrsyhsQU1ROIeFOBoxU 29rYTtUPleAp8mx7H3p 428TBJkMZUftD20Re0e bKpoNMMglCGQtB5lamh dy8wyxhqcFyMjZLKfVG g7YEi9WLUoqOjwTpRoA QF2UcO8FMN5fMOtcM7y xFtrehgggG0kNup+MTI lAUqoLOx0DUpooCO+PH VnWXO3vQumVVtfXUEat S0aEPBfO9r8KvKsIbU5 SBqjD7SsKTIlmfdcHa7 3eA6hJlPbDcM9FTmwC5 KjuiI8ESKhvSOfXSqtM MC4Q49ls3H7KDCwSGPz ELK6jKI3lP5kjMzujso gbGVmdDsgdmVydGljYW qzBRmkC191RZXrpIhlI vH6LCyaZKPyBL50JN93 iRLba6T0iID0I1CeLBN drkoktxmqhJU6YVVoXF EodP65aDQiVPgsVg2qr 6V8j662UTYnJONlrY44 Lc3scGhhPGVgrZVPaJ3 fcojjo4jpmpoyHaNnOX AxDGe7HGr5SKQsvOkcD fVfMRV4LwB5IWD9sRPl bC8ksHsrtwkggI2zNll +SrGuDFfdTK36HW96dA Dzk7Z6aBP4P2FzXUFzf kenzsobhGF1ALSjTESg kJ64gQHwQByeUv2qs4J 8w567PZLvDSWowG28Ev 4bhSagICYkwHLGaT9qx kwot4rcwccsTjYnIAYl AFj9UXf2WIKnqMpvPwB pUGO9ZvT3OEM8oIRcuX 4luJzupcgvlJ4kCgk+T 6G1gWW3hESjmVkadUF+ MA51zv81V9VdUhwiXxv 3VMUiIWR2qYG9oB2iKF SxGCxqs1F4hVW1T2Tkh jPczc6su8xxDPZvGWah C77xlOTgw1T8MDEnoME 9BQHchZkjPvGygJ76Fm c+XNJuiFbsn9YuZuocm 8zvf3tztWs1WmBtHGEt guBkdKvtNVH1c1TqDf0 1F39eUYzzIGZvJCIkHJ MwCKElaCpgbf5eqO6oE i8+VYVmyIJ4pTE5uC4u KkEuPgT0GYdkF100QiS wkBBbHituj1isz5vqnW j5GkBbUHFyonRbtTfdT SD6k8LkNa00L2WvaNfl m1YnEni9er90nPHlk8N 5aWW6H4EcXHYofxuemM DtwHfjRE3nPFDtzoreK MVjsP8nGIHaO3b7XaAt SdT8EBziX8BzokV0XWO acMIcHMIunGUHvX5ewv djg6uxtvfpTkTiNLWrY Kw0ZBp1DQYajJyvJhTl CVW2OeA9HDI5uEBjvV4 svOfbitlkaX8eZee+UG l4o3wzxTSyXY2lzUY9L C08DA69jRRho2O9pIA1 K4WdZWEmpxcaeyhslLP 5IWOrHAVvlG92At9gcL viHw9yWCYpIJA6ADVou QJvK7WjnX9cWwHbHHDp OQBpM1VddFQpTOqyH01 0WKihXqQ3CTJyafChS7 GqERGwdZdxNtS2y3K1V l0NOD39ME88TX76bGVs d3F3lKB4U6BjSIHauop gwhnnuMZ0ICDqADGolM 98Jj8glYztOf0pEIMbI SC5WGKxjWAwE5ZaqJ3x GrUgZZMmLWSuT3UzjJU eHZriK092ZJvcDbX5JR PekgIyH8QzCOAqdZfuH fD4p8K2Zi0YHm82NX68 SK46fVQgw7U5vHL8W8N oANScucfwsipdqRQ0IF DfRJXwkU15Tz1ddRlkT t1iWBBrNJN8NXSxwFLw D1JfhU3oPaAlWYPxRWC sR8LlmPXeISniW184UE jyZtA8RDGkzzDfK8IpW ESpfKonEbW1p5Q4Bc3O TLbqbbb2I5MyMtzotBX +EM70UWSdUN90xLFhrC Suz4rhuPt8EaKqCXDwB DX9lKgrMErbl6LtGSGh Y29s (more content not included)... [facility] Consent for Treatmenton Consent for Treatment [id number] 44#1.00CD:127 [facility] Physician Orderon 10-21-2020 Physician Order [id number] B8#1.00CD:127 [facility] Consent for Treatmenton Consent for Treatment [id number] B4#1.00CD:127 [facility] Physician Orderon 10-19-2020 Physician Order [id number] 446#1.00CD:127 [facility] XR Chest 2 Viewson XR Chest 2 [...] Ball M.D. Transcribed by: SHAYNA Technologist: BECKI [facility] Vital Signs Date Time Vital Sign Value Performing Clinician Facility 07-26-2023 11:27-0500 Body height 170.2 cm Kaitlyn Jasso MD Work Phone: [facility] 06-12-2023 13:00-0500 Body height 170.18 cm Shun Hill Other [employer] Other 06-12-2023 13:00-0500 Body mass index (BMI) [Ratio] 35.24 kg/m2 Shun Hill Other [employer] Other 06-12-2023 13:00-0500 Body weight 102.06 kg Shun Hill Other [employer] Other 03-15-2023 12:29-0400 Diastolic blood pressure 89 mm[Hg] DO Irma Burt Work Phone: [facility] 03-15-2023 12:29-0400 Heart rate 70 /min DO Irma Burt Work Phone: [facility] 03-15-2023 12:29-0400 Respiratory rate 16 /min DO Irma Burt Work Phone: [facility] 03-15-2023 12:29-0400 SaO2% (BldA) [Mass fraction] 100 % DO Irma Burt Work Phone: [facility] 03-15-2023 12:29-0400 Systolic blood pressure 132 mm[Hg] DO Irma Burt Work Phone: [facility] 03-15-2023 08:54-0400 Body height 170.18 cm DO Irma Burt Work Phone: [facility] 03-15-2023 08:54-0400 Body weight 90.71 kg DO Irma Burt Work Phone: [facility] 02-08-2023 14:45-0400 Body height 170.18 cm Shun Hill Other [employer] Other 02-08-2023 14:45-0400 Body mass index (BMI) [Ratio] 34.92 kg/m2 Shun Hill Other [employer] Other 02-08-2023 14:45-0400 Body weight 101.15 kg Shun Hill Other [employer] Other 02-08-2023 14:45-0400 Diastolic blood pressure 80 mm[Hg] Shun Hill Other [employer] Other 02-08-2023 14:45-0400 Systolic blood pressure 131 mm[Hg] Shun Hill Other [employer] Other 01-16-2023 10:35-0400 Body height 170.18 cm Aydee Vaughnmond Other [employer] Other 01-16-2023 10:35-0400 Body mass index (BMI) [Ratio] 35.2 kg/m2 Aydee Nadiya Other [employer] Other 01-16-2023 10:35-0400 Body temperature 98.3 [degF] Aydee Nadiya Other [employer] Other 01-16-2023 10:35-0400 Body weight 101.97 kg Aydee Nadiya Other [employer] Other 01-16-2023 10:35-0400 Diastolic blood pressure 66 mm[Hg] Aydee Nadiya Other [employer] Other 01-16-2023 10:35-0400 Respiratory rate 18 /min Aydee Nadiya Other [employer] Other 01-16-2023 10:35-0400 SaO2% (BldA) [Mass fraction] 98 % Aydee Nadiya Other [employer] Other 01-16-2023 10:35-0400 Systolic blood pressure 105 mm[Hg] Aydee Nadiya Other [employer] Other 09-23-2022 10:45-0400 Body height 170.18 cm Aydee Nadiya Other [employer] Other 09-23-2022 10:45-0400 Body mass index (BMI) [Ratio] 35.13 kg/m2 Aydee Nadiya Other [employer] Other 09-23-2022 10:45-0400 Body temperature 99.2 [degF] Aydee Nadiya Other [employer] Other 09-23-2022 10:45-0400 Body weight 101.74 kg Aydee Nadiya Other [employer] Other 09-23-2022 10:45-0400 Diastolic blood pressure 80 mm[Hg] Aydee Nadiya Other [employer] Other 09-23-2022 10:45-0400 Respiratory rate 18 /min Aydee Nadiya Other [employer] Other 09-23-2022 10:45-0400 SaO2% (BldA) [Mass fraction] 98 % Aydee Nadiya Other [employer] Other 09-23-2022 10:45-0400 Systolic blood pressure 125 mm[Hg] Aydee Hearn Other [employer] Other 09-04-2022 11:20-0400 Body height 170.18 cm Aydee Hearn Other [employer] Other 09-04-2022 11:20-0400 Body mass index (BMI) [Ratio] 31.32 kg/m2 Aydee Hearn Other [employer] Other 09-04-2022 11:20-0400 Body temperature 97.8 [degF] Aydee Hearn Other [employer] Other 09-04-2022 11:20-0400 Body weight 90.72 kg Aydee Hearn Other [employer] Other 09-04-2022 11:20-0400 Respiratory rate 18 /min Aydee Hearn Other [employer] Other 09-04-2022 11:20-0400 SaO2% (BldA) [Mass fraction] 99 % Aydee Hearn Other [employer] Other Encounters Encounter Date Encounter Type Care [...] pital Start: 10-22-2023 End: 10-22-2023 [facility] Start: 10-09-2023 End: 10-09-2023 ambulatory IRMA IY Not Available Start: 10-01-2023 End: 10-01-2023 ambulatory CATHERINE GASPAR [facility] Start: 09-20-2023 End: 09-21-2023 ambulatory KAITLYN [facility] Start: 09-18-2023 End: 09-18-2023 ambulatory SAGAR LUKE Not Available Start: 09-17-2023 End: 09-17-2023 [facility] Start: 09-17-2023 End: 09-17-2023 ambulatory KAITLYN [facility] Start: 08-31-2023 End: 09-04-2023 ambulatory FROYLAN RAMOS [facility] Start: 08-15-2023 End: 08-15-2023 ambulatory IRMA YI Not Available Start: 07-26-2023 Chart abstracting Kaitlyn Jasso MD Work Phone: [facility] Start: 07-18-2023 End: 07-18-2023 ambulatory SAGAR LUKE Not Available Start: 06-20-2023 End: 06-20-2023 ambulatory Shun Hill Other [employer] Other Start: 06-20-2023 Telephone encounter Shun Moncada [facility] Start: 06-19-2023 End: 06-19-2023 ambulatory SAGAR LUKE Not Available Start: 06-12-2023 End: 06-12-2023 ambulatory Shun Hill Other [employer] Other Start: 06-12-2023 Office outpatient vi sit 15 minutes Shun Hill [facility] Start: 05-01-2023 End: 05-01-2023 ambulatory Shun Hill Facility:[facility] Start: 05-01-2023 End: 05-01-2023 ambulatory DO Irma D Burt Work Phone: [facility] Work Phone: Start: 05-01-2023 End: 05-01-2023 Patient encounter procedure DO Irma Burt Work Phone: [facility] Work Phone: Start: 04-10-2023 End: 04-10-2023 ambulatory Shun Hill Facility:[facility] Start: 04-10-2023 End: 04-10-2023 ambulatory DO Irma D Burt Work Phone: [facility] Work Phone: Start: 04-10-2023 End: 04-10-2023 Patient encounter procedure DO Irma Burt Work Phone: [facility] [place] Work Phone: Start: 04-06-2023 End: 04-06-2023 ambulatory Shun Hill Other [employer] Other Start: 04-06-2023 Telephone encounter Shun infante [facility] Start: 03-20-2023 End: 03-20-2023 ambulatory Shun Hill Other [employer] Other Start: 03-20-2023 Telephone encounter Shun infante [facility] Start: 03-19-2023 End: 03-19-2023 ambulatory Shun Hill Other [employer] Other Start: 03-19-2023 Telephone encounter Shun infante [facility] Start: 03-15-2023 End: 03-15-2023 ambulatory Shun Hill Facility:[facility] Start: 03-15-2023 End: 03-15-2023 Admission to same day surgery center DO Irma Burt Work Phone: [facility] Work Phone: Start: 03-15-2023 End: 03-15-2023 ambulatory DO Irma Burt Work Phone: [facility] Work Phone: Start: 02-26-2023 End: 02-26-2023 ambulatory Shun Haleormack Other [employer] Other Start: 02-26-2023 Telephone encounter Shun infante [facility] Start: 02-08-2023 End: 02-08-2023 ambulatory Shun Hill Other [employer] Other Start: 02-08-2023 Office outpatient ne w 45 minutes Shun Hill [facility] Start: 01-16-2023 End: 01-16-2023 ambulatory Aydee Nadiya Other [employer] Other Start: 01-16-2023 Office outpatient vi sit 15 minutes Aydee Nadiya [facility] Start: 09-23-2022 End: 09-23-2022 ambulatory Aydee Nadiya Other [employer] Other Start: 09-23-2022 Office outpatient vi sit 15 minutes Aydee Nadiya [facility] Start: 09-04-2022 End: 09-04-2022 ambulatory Aydee Nadiya Other [employer] Other Start: 09-04-2022 Nursing evaluation o f patient and report Aydee Nadiya [facility] Start: 07-12-2022 End: 07-12-2022 ambulatory Perla Márquez Other [employer] Other Start: 07-12-2022 Office outpatient vi sit 5 minutes Perla Yulisa [facility] Start: 07-07-2022 End: 07-07-2022 ambulatory Aydee Hearn Other [employer] Other Start: 07-07-2022 Encounter for other preprocedural examination Aydee Hearn [facility] Start: 07-07-2022 Nursing evaluation o f patient and report Aydee Hearn [facility] Start: 02-03-2022 End: 02-03-2022 ambulatory Maria Guadalupe Powers Other [employer] Other Start: 02-03-2022 Office outpatient vi sit [...] Td Vaccines (3 - Td or Tdap) [facility] Start: 09-17-2023 End: 09-17-2023 Patient encounter procedure 09/17/2023 8:45 AM EDT Office Visit [facility] [address] [place] [address] Kaitlyn Jasso MD [address] [place] [place] [address] [facility] Start: 09-17-2023 End: 09-17-2023 Patient encounter procedure 09/17/2023 7:30 AM EDT Appointment [facility] [address] [place] [id number] [facility] Start: 05-01-2023 [facility] Start: 03-15-2023 [facility] Start: 01-19-2023 COVID-19 Vaccine ( season) COVID-19 Vaccine () [facility] Start: 01-19-2023 Influenza vaccination Influenza Vacc ine [facility] Start: 12-30-2021 Adult BMI Screening Adult BMI Screen ing [facility] Start: 2006 Screening for malign ant neoplasm of cervix Pap Smear [facility] Start: 1997 Depression Screening Depression Scre ening [facility] Start: 1997 Tobacco Screening Tobacco Screening [facility] Immunizations Immunization Date Immunization Notes Care Provider Fa cility 02-03-2020 influenza virus vaccine, unspecified formulation Kaitlyn Jasso MD Work Phone: [facility] Payers Date Payer Category Payer Private Health Insurance [id number] 2023 Self-pay [id number] 2018 Private Health Insurance [employer] A ETNA POS II [id number] 2018-Present [phone] [address] [place] [address] [id number] 1985 Unknown [id number] 2.840.1.805242.3.579.2 .1285 1985 Unknown [id number] 2.840.1.856525.3.579.2 .1285 1985 Unknown [id number] 2.840.1.663729.3.579.2 .1285 1985 Unknown [id number] 2.840.1.987236.3.579.2 .1285 1985 Unknown [id number] 2.840.1.716579.3.579.2 .1285 1985 Unknown [id number] 2.840.1.487300.3.579.2 .1285 1985 Unknown [id number] 2.840.1.378806.3.579.2 .1285 1985 Unknown [id number] 07.06.830.1.622266.3.579.2 .1285 1985 Unknown [id number] 2.840.1.925766.3.579.2 .1285 1985 Unknown [id number] 20.1.829581.3.579.2 .1285 1985 Unknown [id number] 20.1.135618.3.579.2 .1285 1985 Unknown [id number] 840.1.412690.3.579.2 .1258 1985 Unknown [id number] 2.840.1.164141.3.579.2 .1258 1985 Unknown [id number] 2840.1.029175.3.579.2 .1258 1985 Unknown [id number] 2.840.1.329279.3.579.2 .1258 1985 Unknown [id number] 2.840.1.393870.3.579.2 .1258 1985 Unknown [id number] 2.840.1.200079.3.579.2 .1259 1985 Unknown [id number] 2.840.1.386159.3.579.2 .1259 1985 Unknown [id number] 2.840.1.664466.3.579.2 .1259 Medicaid [facility] [id number] Private Health Insurance [id number] Unknown [facility] [id number] Unknown [id number] 2.840.1.771776.3.579.2 .531 Unknown [id number] 2.840.1.924833.3.579.2 .531 Unknown [id number] 840.1.654624.3.579.2 .531 Social History Date Type Detail Facility Start: 06-30-2020 End: 07-26-2023 Sex Assigned At [facility] [employer] Other Start: 03-15-2023 End: 03-15-2023 Tobacco smoking status PAIS Ex-smoker (finding) [facility] Start: 1985 Sex Assigned At Female F [facility] Start: 11-17-2020 Tobacco smoking stat us [facility] Smokes tobacco daily [facility] History of tobacco use Tobacco U se Types Packs/Day Years Used Date Smoking Tobacco: Every Day Vaping/E-cigarettes Smokeless Tobacco: Never [facility] Start: 11-17-2020 Tobacco use and exposure Smokeless tobacco non-user [facility] Start: 07-26-2023 Alcohol intake Current drinke r of alcohol (finding) [facility] Start: 06-30-2020 End: 07-26-2023 History of Social function [facility] Childcare Unknown [facility] Start: 11-17-2020 Alcohol Comment social [facility] Start: 05-04-2023 [facility] Start: 1985 Sex Assigned At Not on file P [facility] Goals Date Patient Goal Desired [...] Mayelin Pinto DO on 08/31/2023 11:23 AM [facility] 06-12-2023 Evaluation note Encounter Date Diagnosis Assessment Notes May, Diarrhea (ICD-10 - R19.7) Patient reports that she is about 7-8 weeks gestational Patient reports improvement on Creon with occasional flare Patient reports that she is taking a fiber supplement May, Fatty liver (ICD-10 - K76.0) Patient did have a FibroScan that indicates fatty liver and minimal scaring, this will be reviewed [employer] Other 11-17-2023 Evaluation note* Encounter Date Diagnosis Assessment Notes Treatment Notes Treatment Clinical Notes Mar, Exocrine pancreatic insufficiency (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) [employer] Other 10-31-2023 Evaluation note* Encounter Date Diagnosis Assessment Notes Treatment Notes Treatment Clinical Notes Feb, Alternating constipation and diarrhea (ICD-10 - R19.8) Feb, Fecal urgency (ICD-10 - R15.2) [employer] Other 10-30-2023 Evaluation note* Encounter Date Diagnosis Assessment Notes Treatment Notes Treatment Clinical Notes Feb, Alternating constipation and diarrhea (ICD-10 - R19.8) [facility] Encounter Date Diagnosis Assessment Notes Treatment Notes Treatment Clinical Notes Feb, Alternating constipation and diarrhea (ICD-10 - R19.8) [employer] Other 09-21-2023 Evaluation note* Encounter Date Diagnosis Assessment Notes Treatment Notes Treatment Clinical Notes Jan, Alternating constipation and diarrhea (ICD-10 - R19.8) WORSENING DIARRHEA AND CONSTIPATION OVER THE PAST YEAR. DOES HAVE SOME NOCTURNAL AWAKENINGS WITH THE DIARRHEA. CAN GO 4-5 DAYS WITH OUT A BOWEL MOVEMENT WHEN SHE IS CONSTIPATED. WILL ORDER IBS WORK UP WILL PROCEED WITH COLONOSCOPY [employer] Other 08-29-2023 Evaluation note* Encounter Date Diagnosis [...] no improvement in 2 to 3 days [employer] Other 2023 Evaluation note* Encounter Date Diagnosis [...] no improvement in 2 to 3 days [employer] Other 04-17-2023 Evaluation note* Encounter Date Diagnosis Assessment Notes Treatment Notes Treatment Clinical Notes Aug, Contact with and (suspected) exposure to other viral communicable diseases (ICD-10 - Z20.828) [employer] Other 02-22-2023 Evaluation note* Encounter Date Diagnosis Assessment Notes Treatment Notes Treatment Clinical Notes 22 Feb, 2023 Contact with and (suspected) exposure to covid-19 (ICD-10 - Z20.822) [employer] Other 02-17-2023 Evaluation note* Encounter Date Diagnosis Assessment Notes Treatment Notes Treatment Clinical Notes Jun, Preoperative clearance (ICD-10 - Z01.818) [employer] Other 09-16-2022 Evaluation note* Encounter Date Diagnosis Assessment Notes Treatment Notes Treatment Clinical Notes Jan, Contact with and (suspected) exposure to covid-19 (ICD-10 - Z20.822) [employer] Other Evaluation note* Diagnosis Onset Date Resolution Status Diarrhea acute [facility] Work Phone: Evaluation noteNo InformationNort [employer] Other History general Narrative - Reported* Type Description Date Medical History ANXIETY AND DEPRESSION [employer] Other Hospital Discharge instructions Additional Instructions DISCHARGE [...] if you have any problems. -Office number [phone] Work Phone: InstructionsNot on filedocumented in this encounter [facility] SystemReason for visit NarrativeRED EQUINOX, ANTIGEN PROCEDURE TESTNomosaic [facility] [employer] Other Reason for visit NarrativeNEEDSNEGATIVE, RAPID COVID TEST FOR PROCEDURENomosaic [facility] [employer] Other Summary Purpose Family History No Family [...] section and content) DATE CREATED AUTHOR 08/24/2021 [facility] DATE CREATED AUTHOR AUTHOR'S ORGANIZ ATION 05/09/2023 [facility] DATE CREATED AUTHOR AUTHOR'S ORGANIZ ATION 09/22/2023 [facility] DATE CREATED AUTHOR AUTHOR'S ORGANIZ ATION 12/06/2023 [facility] DATE CREATED AUTHOR AUTHOR'S ORGANIZ ATION 12/10/2023 [facility] Specialists EPIC REASON FOR VISIT (unrecogniz [...] Active Shun Hill MD Attending Provider Active [employer] Relationship Specialty Start Date End Date No Pcp, [place] [address] PCP - General Family Medicine 11/18/20 FOR [...] BE BASED ON THE PRIMARY CLINICAL RECORDS. [facility]. provides no warranty or guarantee of the accuracy or completeness of information in this document.
[2023-12-17 14:11] VITALS: BP 126/73; PULSE 108
== END 2023-12-17 15:22 | disposition home or self-care (01) ==
LOC: US 07:05 → FBC 13:55
PROVIDERS: Visit Provider Obstetrics & Gynecology
DX: O09.523 Supervision of elderly multigravida, third trimester (principal); Z3A.34 34 weeks gestation of pregnancy
CPT/HCPCS: 76818

== ENCOUNTER 2023-12-20 07:13 | Outpatient (OUT) | payer OTHER, SELFPAY ==
--- OUTSIDE RECORDS SUMMARY | 2023-12-20 07:16 | XMS_ITS | CCD ---
Author Organization [facility] Inform ion Partnership [facility] Care Team Providers Care Computer Network And Systems Engineer Name Role Phone Maria Guadalupe Powers Unavailable NadiyaAydee anderson Unavailable Perla Márquez Unavailable Shun Hill Unavailable MD Shun Hill Attending Provider [phone] DO Irma Burt Primary Care Provider MD Shun Hill Attending Provider [phone] DO Irma Burt Primary Care Provider Shun [...] day for 10 day(s) Jul, Active amylase 965126 unt / lipase 68111 unt / protease 385236 unt delayed release oral capsule (3 sources) Start: 04-06-2023 take 2 capsules by mouth three times daily at mealtime Creon [id number] UNIT 2 capsules Orally three times a [...] 14, 2023 11:00pm take 1 tablet by keaar th once daily in the morning Levothyroxine [...] 1 tablet by mouth twice daily Sutab 9283-048-057 MG 12 tablets the first dose the [...] 5 day(s) September, Not-Taking 84 hr estradiol 0.97975 mg/hr transdermal system (4 sources) Estrogen take [...] URINE PROTEIN 170 mg/L High <120 [facility] Comment on above: Performed By: #### U PCR #### [facility] ([id number]) [address] [place] [address] U/PRO/HUMAN RESOURCES TECHNICIAN RATIO CALC 0.17 Normal <0.[address] [facility] Comment on above: Result Comment: Neph rotic Syndrome is associated with ratios >3.5 Performed By: #### U PCR #### [facility] ([id number]) [address] [place] [address] URINE CREATININE,RDM 98.06 mg/dL Normal [facility] Comment on above: Performed By: #### U PCR #### [facility] ([id number]) [address] [address] COMPLETE BLOOD COUNTon 09-16 Erythrocyte distribution width (RBC) [Ratio] 13.0 % Normal 11.5-15.0 [facility] Comment on above: Performed By: #### C BC, CMP, FEPR, 2532-0, 3084-1, TSHR, 2276-4, 2284-8, 2132-01 #### [facility] ([id number]) [address] [address] Hematocrit (Bld) [Volume fraction] 34.6 % Low 35-47 [facility] Comment on above: Performed By: #### C BC, CMP, FEPR, 2532-0, 3084-1, TSHR, 2276-4, 2284-8, 9 #### [facility] ([id number]) [address] [address] Hemoglobin (Bld) [Mass/Vol] 11.9 g/dL Normal 11.7-15.5 [facility] Comment on above: Performed By: #### C BC, CMP, FEPR, 2532-0, 3084-1, TSHR, 2276-4, 2284-8, 9 #### [facility] ([id number]) [address] [place] [address] MCH (RBC) [Entitic mass] 30.9 pg Normal 27-34 [facility] Comment on above: Performed By: #### C BC, CMP, FEPR, 2532-0, 3084-1, TSHR, 2276-4, 2284-8, 2132-01 #### [facility] ([id number]) [address] [place] [address] MCHC (RBC) [Mass/Vol] 34.4 g/dL Normal 32-36 [facility] Comment on above: Performed By: #### C BC, CMP, FEPR, 2532-0, 3084-1, TSHR, 2276-4, 2284-8, 2132-01 #### [facility] ([id number]) [address] [place] [address] MCV (RBC) [Entitic vol] 90 fL Normal 80-100 [facility] Comment on above: Performed By: #### C BC, CMP, FEPR, 2532-0, 3084-1, TSHR, 2276-4, 4-8, 2132-01 #### [facility] ([id number]) [address] [place] [address] Platelet mean volume (Bld) [Entitic vol] 9.4 fL Normal 7-12 [facility] Comment on above: Performed By: #### C BC, CMP, FEPR, 2532-0, 3084-1, TSHR, 2276-4, 2284-8, 2132-01 #### [facility] ([id number]) [address] [place] [address] Platelets (Bld) [#/Vol] 181 10*3/uL Normal 150-450 [facility] Comment on above: Performed By: #### C BC, CMP, FEPR, 2532-0, 3084-1, TSHR, 2276-4, 2284-8, 2132-01 #### [facility] ([id number]) [address] [place] [address] RBC COUNT 3.85 X10E12/L Normal 3.80-5.20 [facility] Comment on above: Performed By: #### C BC, CMP, FEPR, 2532-0, 3084-1, TSHR, 2276-4, 2284-8, 9 #### [facility] ([id number]) [address] [place] [address] WBC (Bld) [#/Vol] 11.3 10*3/uL High 4.0-11.0 [facility] Comment on above: Performed By: #### C BC, CMP, FEPR, 2532-0, 3084-1, TSHR, 2276-4, 2284-8, 2132-01 #### [facility] ([id number]) [address] [place] [address] COMPREHENSIVE METABOLIC PANE Charles 09-17-2023 Albumin [Mass/Vol] 3.4 g/dL Normal 3.2-5.3 [facility] Comment on above: Performed By: #### C BC, CMP, FEPR, 2532-0, 3084-1, TSHR, 2276-4, 2284-8, 2132-01 #### [facility] ([id number]) [address] [place] [address] ALP [Catalytic activity/Vol] 71 U/L Normal 39-130 [facility] Comment on above: Performed By: #### C BC, CMP, FEPR, 2532-0, 3084-1, TSHR, 2276-4, 2284-8, 2131- #### [facility] ([id number]) [address] [place] [address] ALT [Catalytic activity/Vol] 11 U/L Normal 0-31 [facility] Comment on above: Performed By: #### C BC, CMP, FEPR, 2532-0, 3084-1, TSHR, 2276-4, 2284-8, 2132-01 #### [facility] ([id number]) [address] [place] [address] Anion gap [Moles/Vol] 11 mmol/L Normal 5-15 [facility] Comment on above: Performed By: #### C BC, CMP, FEPR, 2532-0, 3084-1, TSHR, 2276-4, 2284-8, 2132-01 #### [facility] ([id number]) [address] [place] [address] AST [Catalytic activity/Vol] 13 U/L Normal 0-41 [facility] Comment on above: Performed By: #### C BC, CMP, FEPR, 2532-0, 3084-1, TSHR, 2276-4, 2284-8, 2132-01 #### [facility] ([id number]) [address] [place] [address] Bilirubin [Mass/Vol] 0.3 mg/dL Normal 0.3-1.2 [facility] Comment on above: Performed By: #### C BC, CMP, FEPR, 2532-0, 3084-1, TSHR, 2276-4, 2284-8, 2132-01 #### [facility] ([id number]) [address] [place] [address] Calcium [Mass/Vol] 9.0 mg/dL Normal 8.5-10.5 [facility] Comment on above: Performed By: #### C BC, CMP, FEPR, 2532-0, 3084-1, TSHR, 2276-4, 2284-8, 2132-01 #### [facility] ([id number]) [address] [place] [address] Chloride [Moles/Vol] 104 mmol/L Normal 98-109 [facility] Comment on above: Performed By: #### C BC, CMP, FEPR, 2532-0, 3084-1, TSHR, 2276-4, 2284-8, 2132-01 #### [facility] ([id number]) [address] [place] [address] CO2 [Moles/Vol] 24 mmol/L Normal 22-32 [facility] Comment on above: Performed By: #### C BC, CMP, FEPR, 2532-0, 3084-1, TSHR, 2276-4, 2284-8, 2132-01 #### [facility] ([id number]) [address] [place] [address] Creatinine [Mass/Vol] 0.46 mg/dL Normal 0.40-1.00 [facility] Comment on above: Result Comment: METH OD TRACEABLE TO IDMS STANDARD Performed By: #### C BC, CMP, FEPR, 2532-0, 3084-1, TSHR, 2276-4, 2284-8, 2132-01 #### [facility] ([id number]) [address] [place] [address] eGFR (CKD-EPI) NON-RACE DEPENDENT >90 Normal >59 [facility] Comment on above: Result Comment: Reported eGFR is based on the CKD-EPI 2020 equation that does not use a race coefficient. Performed By: #### C BC, CMP, FEPR, 2532-0, 3084-1, TSHR, 2276-4, 2284-8, 2132-01 #### [facility] ([id number]) [address] [place] [address] Glucose [Mass/Vol] 78 mg/dL Normal 65-99 [facility] Comment on above: Performed By: #### C BC, CMP, FEPR, 2532-0, 3084-1, TSHR, 2276-4, 2284-8, 2132-9 #### [facility] ([id number]) [address] [place] [address] Potassium [Moles/Vol] 4.0 mmol/L Normal 3.5-5.0 [facility] Comment on above: Performed By: #### C BC, CMP, FEPR, 2532-0, 3084-1, TSHR, 2276-4, 2284-8, 2132-01 #### [facility] ([id number]) [address] [place] [address] Protein [Mass/Vol] 6.5 g/dL Normal 6.0-8.0 [facility] Comment on above: Performed By: #### C BC, CMP, FEPR, 2532-0, 3084-1, TSHR, 2276-4, 2284-8, 2132-01 #### [facility] ([id number]) [address] [place] [address] Sodium [Moles/Vol] 139 mmol/L Normal 134-146 [facility] Comment on above: Performed By: #### C BC, CMP, FEPR, 2532-0, 3084-1, TSHR, 2276-4, 2284-8, 2132-01 #### [facility] ([id number]) [address] [place] [address] Urea nitrogen [Mass/Vol] 8 mg/dL Normal 5-23 [facility] Comment on above: Performed By: #### C BC, CMP, FEPR, 2532-0, 3084-1, TSHR, 2276-4, 2284-8, 9 #### [facility] ([id number]) [address] [place] [address] FERRITINon 09-17-2023 Ferritin [Mass/Vol] 11 ng/mL Normal 11-307 [facility] Comment on above: Performed By: #### C BC, CMP, FEPR, 2532-0, 3084-1, TSHR, 2276-4, 2284-8, 2132-01 #### [facility] ([id number]) [address] [place] [address] Folate [Mass/Vol]on 09-17-19 24 FOLIC ACID 18.1 ng/mL Normal >5.8 [facility] Comment on above: Result Comment: NEW REFERENCE RANGE Performed By: #### C BC, CMP, FEPR, 2532-0, 3084-1, TSHR, 2276-4, 2284-8, 2132-01 #### [facility] ([id number]) [address] [place] [address] IRON PROFILEon 09-17-2023 Iron [Mass/Vol] 52 ug/dL Normal 50-170 [facility] Comment on above: Performed By: #### C BC, CMP, FEPR, 2532-0, 3084-1, TSHR, 2276-4, 2284-8, 2132-01 #### [facility] ([id number]) [address] [place] [address] IRON BINDING 580 ug/dL High 250-425 [facility] Comment on above: Performed By: #### C BC, CMP, FEPR, 2532-0, 3084-1, TSHR, 2276-4, 2284-8, 2132-01 #### [facility] ([id number]) [address] [place] [address] IRON SATURATION 9 % SATURATION Low 15-50 [facility] Comment on above: Performed By: #### C BC, CMP, FEPR, 2532-0, 3084-1, TSHR, 2276-4, 2284-8, 2132-01 #### [facility] ([id number]) [address] [place] [address] LDH [Catalytic activity/Vol] on 04-29-2024 LDH 124 U/L Normal 100-235 [facility] Comment on above: Performed By: #### C BC, CMP, FEPR, 2532-0, 3084-1, TSHR, 2276-4, 2284-8, 2132-01 #### [facility] ([id number]) [address] [place] [address] Natriuretic peptide B [Mass/ Vol]on 09-17-2023 Natriuretic peptide B (Bld) [Mass/Vol] 66 pg/mL Normal <100.0 [facility] Comment on above: Performed By: #### C BC, CMP, FEPR, 2532-0, 3084-1, TSHR, 2276-4, 2284-8, 2132-01 #### [facility] ([id number]) [address] [place] [address] TSH WITH REFLEXon 09-17-2023 TSH 0.78 uIU/mL Normal 0.49-4.67 [facility] Comment on above: Performed By: #### C BC, CMP, FEPR, 2532-0, 3084-1, TSHR, 2276-4, 2284-8, 2132-01 #### [facility] ([id number]) [address] [place] [address] Thiamine (Bld) [Mass/Vol]on 09-17-2023 THIAMIN VITAMIN B1 See Below Normal [facility] Comment on above: Result Comment: NOTE [...] developed and its performance characteristics determined by [facility]'s [facility] [place] [facility] It has not been cleared or approved by the FDA. -[facility] is regulated under CLIA as qualified to perform high-complexity testing. This test is used for clinical purposes. It should not be regarded as investigational or for research. Test Performed By: [place] [address] Insurance Advisor: Colin Cisneros III, M.D. CLIA #[id number] Performed By: #### C BC, CMP, FEPR, 2532-0, 3084-1, TSHR, 2276-4, 2284-8, 2132-01 #### [facility] ([id number]) [address] [place] [address] URIC ACIDon 09-17-2023 Urate [Mass/Vol] 5.1 mg/dL Normal 2.6-7.2 [facility] Comment on above: Performed By: #### C BC, CMP, FEPR, 2532-0, 3084-1, TSHR, 2276-4, 2284-8, 2132-01 #### [facility] ([id number]) [address] [place] [address] VITAMIN B12on 09-17-2023 Cobalamin (Vitamin B12) [Mass/Vol] 185 pg/mL Normal 180-914 [facility] Comment on above: Performed By: #### C BC, CMP, FEPR, 2532-0, 3084-1, TSHR, 2276-4, 2284-8, 2132-01 #### [facility] ([id number]) [address] [place] [address] TSHon 05-25-2023 Thyroid Stimulating (3Rd Generation) Hormone/ Tsh 2.200 [facility] CT abdomen w conon 3 CT abdomen w [facility] [address] [place], [place] [address] CT Scan Report Signed Patient: Laura Alves MR#: [id number] 3 : 1985 Acct:[id number] Age/Sex: 37 / F ADM Date: 04/10/23 Loc: CT Room: Type: [facility] Attending Dr: Shun Hill MD Copies to: [...] Stan Owens M.D.04/10/2023 4:03 PM Dictation Location: [place] [address] Transcribed By: [facility] 04/10/23 1603 Dictated By: Stan Owens DO 04/10/23 1556 Signed By: 04/10/23 1603 Normal [facility] HCG ( test) IA.rapi d Ql (U)Ordered By: Shun Hill on 03-15-2023 HCG ( test) Ql (U) Negative [facility] HCG,Urineon 03-15-2023 Beta HCG ( test) Ql (U) Negative Normal [facility] Comment on above: Result Comment: PERF ORMED BY: [place] [phone] PATHOLOGIST LINEN SUPERVISOR MARINA AYALA M.D. Performed By: #### U [facility] #### [facility] [address] [place] [id number] [facility] 03-15-2023 L Specimen: [id number] Received: 03/15/23 Status: BUSTER Fuentes Num: [id number] Spec Type: Surgical Subm Dr: Shun Hill MD Tissues: A Colon Biopsy (SURVEILLANCE BX) Procedures: Deepti CHILEL/Pierce L4 Age/ Patient Sex Location Account Attending Physician Laura Alves 37/F [id number] Shun Hill MD SPEC NUM: [id number] RECD: 03/15/23 STATUS: BUSTER FUENTES NUM: [id number] SUMIT: 03/15/23 DR: Shun Hill MD ENTERED: 03/15/[address] [facility] [address]: SPEC TYPE: Surgical DEPT: S [...] The microscopic examination confirms the diagnosis. Specimen: [id number] Received: 03/15/23 Status: BUSTER Fuentes Num: [id number] Spec Type: Surgical Subm Dr: Shun Hill MD Tissues: A Colon Biopsy (SURVEILLANCE BX) Procedures: HE/2, Gross/Micro L4 Patient: Laura Alves [id number] (Continued) Specimen: [id number] Received: 03/15/23 (Continued) Signed (signatur e on file) Winston Donis MD 03/16/23 1737 Specimen: [id number] Received: 03/15/23 Status: BUSTER Sunshinevanessa Num: [id number] Spec Type: Surgical Subm Dr: Shun Hill MD Tissues: A Colon Biopsy (SURVEILLANCE BX) Procedures: RANJANA, Gross/Micro L4 Patient: Rick Alvesy [id number] (Continued) Specimen: [id number] Received: 03/15/23 (Continued) CPT Codes [address] Specimen: [id number] Received: 03/15/23 Status: BUSTER Fuentes Num: [id number] Spec Type: Surgical Subm Dr: Shun Hill MD Tissues: A Colon Biopsy (SURVEILLANCE BX) Procedures: DUY/Yaz, Deepti/Pierce L4 Patient: Laura Alves [id number] (Continued) Signed (signatur e on file) Winston Donis MD 03/16/23 1737 [facility] SARS-CoV-2 (COVID-19) RNA NA A+probe Ql (Resp)on 01-16-2023 SARS-CoV-2 (COVID-19) RNA GEORGE+probe Ql (Unsp spec) Positive [employer] Other HIV 1&2 AB/AG Screen (P24 AG )on 12-13-2022 HIV 1&2 AB/AG Non-Reactive [facility] Hepatitis B surface antigeno n 12-13-2022 Hepatitis B Surface Antigen Negative [facility] No Panel InformationOrdered By: Rae Agudelo on 12-13-2022 [facility] Rubella IGG immune statuson 12-13-2022 Rubella immune IgG <0.90 NON IMMUNE [facility] Syphilis Total(Unknown Syphi lis Status)Ordered By: Rae Agudelo on 12-13-2022 Syphilis Non-Reactive [facility] COVID Quick Testingon 2022 Result Negative [employer] Other COVID Quick Testingon 2022 Result Negative [employer] Other COVID Quick Testingon 2022 Result Negative [employer] Other COVID Quick Testingon 2021 Result Negative [employer] Other Consent for Treatmenton 05-21 Consent for Treatment [id number] 0 [id number]#[id number]:127 [facility] Coding Summary.on 05-28-2021 Coding Summary. CD:[id number] QXs3pXy+PGhlYWQ+PE1 NBNTgB07ccSVbbO0RE7 fEOY7LHBATGZOOSY9AL F7pdTU9ICyzW7VoqpVg LzfhlQLlFT39HZe4KPN 0uTuvTFpriX4qqZMeP0 o9WuLhSW85iK50WCcrA JSsJuL4BiVlyftnhSHl E0zmHzSfcDNnYiw+PHR hYmxlIHdpZHRoPScxMD NbLgZmeSluIJ3pFv3eY GVyLWNvbGxhcHNlOiBj o8saBZWbKLgkIO5ddWp uU5VipIA3TWMzr6t5Gv 48dHI+QRFlZCO9jDuaM Stgn189PsHlf6buYUM4 tFNdMTtwBFH0Y68ps3F 8ZHJnYSZoOTC2rWK0bJ 0kjHgknasqF6ZjwKDwT tB9CYK4mTRxdE6iiGij ntgdmW8aXio+E65BJZ3 ETBOCCB3ZWnc6Z9KeGq wvdHI+VZ11KABpKB98h JGdwAPvm9ugoJj1MtBv ZZZlVLH1oIbhSBtex9R kHHIpE82yyQJbu8N7SV SirTcohFSbVqAbiGG5u W6bBAtgwxisb4boorfb Ymapd3iuln33zY46H75 bOOdeYOItBUG6IJOgDO LyuGoalp1guQ3cGe6+I Pybp4tpa4egaGz7DyYs RDQsznGxfHetBRF7h6M lCw71Z3OesFerg2JlYx d4uk97bVTpd3L0tFT9H MtxXSVwsP7tYZywMqB0 CYNvSyCkuR10sZSqELi hOs3ofRezoTbaHX7cFC MdgivsRCWktD5xQODql FAboVmfSD8sUJBybzih e514NkApWYU6KMDlrRQ mJ4IfkI0vImDrEINkFO IfJ3GxxNYvCOgrT471F SymTxI9SDHghfGmL5Sy PSCppXpsCvX1r2G4Yn8 Hs1RzjntfEDS1PHqxVC MjLrP3FpEnRxD2A5HdY nt7ZLHtwFqwKU5mI0Ku ZQYcrgpblqcogZG9HWL oDKWdfH70yTWvFNcsZh 2yg3E5f658OSAhARYjz P36Xl6bkQkgZIDtfQNI hR9bcxagy9lcsmftXgL gCWUoCVx7JYx9DIEocH ldVuTpFDH7YwA1WCR7x QFxfR3lvEtnmhubtN0s Oyc+X16ueT4qHNU1LHX 9gtclFIRkynAqKX45LG 30V5RaIcuctQUqmQC+P HPygoVkpXefZQ7kVaEl j2ykc1SrILhoN6BvMMT iLGggLvp5PWPlVMS2xR O2nP8eBOSxCIquf5F4n LC1F7TsztJxvi6ae4vw VOCbCVhfR78naJXsc6C 9TVFziSZ3VEEfzYbdTy CkhZ81Mdd+PGNvbGdyb 9CjBovuk1tbl8wreZh2 IjMwJSIgdmFsaWduPSJ 0y2YmBi41R33eFWssTO RoPSIxNSUiIHZhbGlnb f7jlA1fOm2+PGNvbCB3 jPL5nR4qAEEfZkN7RNz cX642AxGlxWSzTaevc2 uxd0loeDk4CoRbNOPms iLbbIobANM0p6EeMl02 F04hWBtbYIEsDHVlZJA bHMPzlDdvub8feO1uQo 8+GL3xv6ttfp45sT17h HI+VFDqBKW5aJxkJBwi ZFWfnX8oVZcgMqO1IBM nSvPomS55yRJsAWjrVw 2ygJfctEhxPS4gHVWxb kuoe915QkZte3hwVBDk wMKcWNikDGT1D78ew5A 7YYLdQGCzJVB9eFT8mR 1hbGlnbjogbGVmdDsgd xJjuJgaOQfdEOaeO253 IHRvcDsnPlBhdGllbnQ gFeDaWJb9M1DcVsk4EZ GazDzwPV0jwUPlLTjvQ k6cgRxhzVhgMK2bPKQh xcbyf322RmRmw2gfMWB teXYuFGarULM5L21xm8 K1HVLhZMLfOGX0jRH3u X2guQsolojpmVMjuGfk ffCvtNzyGFmdGKbeL88 6IHRvcDsnPkJpcnRoIE TfkKD5UB45NN94iPHuq 8R8dMZ1W3ZxEZHkyfib xfbwuVG2FBZjXBCcqD1 5Us7fdCveGe5uWKQgIL Y9UEZndQTqK2DlkZ2rO kVwWDNiBLTsK2WluSGq UXulN692XRdvQlL1VBR booWyV2ItFVAiwUcuTa S1r3F5Mx3RP7B2TW88U K44hJLpm4R4cLL9L3Mi ANUpbvcnjfymfRO1ACT hKHRnzK54Ly0ocCjjDc 7wXCPnBPY8CGDkzKKsF 0SypK4fMkSpZZVyXHCw O0TduWBjAUdzN894VGa qVbD9CCXmsiWtE9BnIB YufZlxAgF9t9E4Pf9XB Mo8FP00TT66xBBzm5Y4 nHV8S2WtMSZstcokasw wjVT4JKIiGOJplJ06Qo 5rtFfkCx6tFQWhNKD4F RZzwDDsZ3OxfK6lDqOo VWSfKJGkE3ZwjHVpFGn jL309DCebVwJ5DSZygm GfZ8KfXGFjiLexLjX2i 9O9Hu2WBOGwYN67XEG9 zAL9GO44CZ81J8TyCov vdGFibGU+PHRhYmxlIH dpZHRoPScxMDAlJyBzd ZemKS0pNm5sQACfGIKp fEkhoKGjBnFro4axFXI cJAiqHM6ejXceT1CzoN H9IKIpo6p8Hx66S82eL 3JvdXA+JBOvbKA2pSX8 mW5pEsQdKnI9ZLsqO38 4CkZdqDTtMvmqo3sfd3 pooFq0OlT4NZFevdSsg RovUSE6y1SwEh97O03i IHdpZHRoPSIxNSUiIHZ ftEahvx1qfQ0jJx8+PG WbzPJ4nEN9zC0iShFxK tE6BZilA763GvPxlTIz Fjpyk7gqr2qnoHx3QeO oQSNzywKnwAfqCAB0e1 OnBh29N4HzyOjpp8ZoV du8gy63pOZon5D7hPS6 A2SgGCZmznujrFXgtEq tLO1kVNDijkarHVGvlX 6iCSImR0r9BoZcOyE9W OehA9LmnxL2EWOuhZOq TFmxBMY4S66ml7B7AMJ pMQDbBIV1wSM0hN6wpS lnbjogbGVmdDsgdmVyd DtzVNolKTrvD596LEAs tYwpKQVeuC1fQGUrrRG cgPorNP1aEDFjvxptBg bBRW0UJLPADkrcSVhVO PFARRFCJA72BJ05lPDx f5U6eTP7X6RgXGVqkmy vhdxagKL5AEHqHBCptK 84vRXzKHxhZc8il6G1g 646HNLjYJQfiB32Dj0a wCrxFOXecOGRhO8iczq ej1vghbrlYqFnHFOeJN o9AEh1QJCigXfcBhRrK CB8PhG2RYS9gOLmsP1a zJbyqvpckM5oYqm+MTI uPJmlGGp0LXsxbGS+PH WyOUK9fPazDZmiTADhc H7fUNAkC0l4HvCeAuL1 EOwsG3HgNKJbljswYc8 3fA7lQrCeKsW6GEixJ4 LmgtE8IKXdrXPlACvbX TZ2C68jw5V9NKDkIQLu RTP0kPT2sU6zeBilqbw gbGVmdDsgdmVydGljYW bpZAjkE948PGUifHmxT oS9EUywBFGvSR87VV67 iOUwo4G4sSR2L1WqWGS tzxbglsxojBB6RYTrKW QxvU65mLErBBtwHg3fg 0Q0q229QNDhIELlbX94 Kj9hiWdsDGOqbWIRnB1 iptffl5mlygccOcSrBT RvSBx8AIp3UXMbtPbsP oDeQFX0UiL6ZNW8yJEg eP8rwPojssnuoD8fLja +NyRdFNdgJM93FA10iR Tvu1L8yEQ8A7DpGCMks dnlosxxgIE3ZJFtEOPk wL17oSRjOAeaWf2yv9V 5i135DCVmTESnbK61Hd 8olOxiAYAwjOYFlP2lo ccak2nvensrUiFqAZHc ZKc4FCq1WILbaPgyIxA gUUF5HuR4DZA3kTGskY 3pkSlbaejypK5uTtp+U fHqzAUsbT8wLK33XY70 E0AnZmlbpCOjmNQ+PHR hYmxlIHdpZHRoPScxMD HaPdKnuUdvTT3mYw2oV GVyLWNvbGxhcHNlOiBj d1kmQCZcBTuvKE4rlMx aF3OuoCA6IRCpx6q1Ny 07W96hT6XdmRK+PGNvb PE2hHD9tF4wObJdNaH3 NAaxZ496AfTsoGWiLdb hk4mlp7avrHr5PuUxRD RvijYmhDtwNZR0c3HwB g74T80fWFbuIOQdMOSr RPDqKGPonXmupu1izP9 wIi8+EWDlaKF6lPF9zR 5mKwWjZbM0XRdmZ309N zGeoFLjMffkS61hM1Gj dXA+LZFyTfi0DMHlaTn pDW9gqRBpHSoxUs3wFM B4FeBgQeWlSVybL0EyB RZuqubarriahRC5NCKq BGCrhG57Sl4yaJxvOl8 fPAEvXRM8XWAcmFNxA5 IkrU3mQuLgTWZsXKUrT 8HayOSmNYghX584UAey GsD2HRDexbTeJ0YpHNP yuZunJaD9r9Z8Iu2LsU umkZYtVJ8aDjCuHUe8D 1QnDyb7UIJvlEbtMB3p kCHeJEjiSx3kxGostTp vFF7oFXCgahrlk313Pa Mkl2zoAKIteLQyFDpkW GF4O87ii0O8HFEzYMKb UGY6xMO6bU4ptBhwfbv gbGVmdDsgdmVydGljYW gsWIbaW557ETJnbCrtQ oVVUzn3B1OdPfr1OTDe jRngZD2zvQQiNKufZm7 afBcmuTinVG5fLEDvnx fde379ZfIeo1jrQYWer IAqUVynCHL9F47op4A6 BSGiQPSzGDM1fRB6lD1 hbGlnbjogbGVmdDsgdm GvaStySDjlIUflV777F NCauGqaVl3XKiq5J3Pu Yor2LRCspJkfPO8wwTQ eVUlxEi7ksAkioLhnMQ 2hLYExaijkd323VhKgf 3vpIHRbyNEfQDkjANP1 E78ri0Q7TPSoBLJeWNL 0lCB8rC9duDpofidtdR VmdDsgdmVydGljYWwtY EinN514UGWlwXknMkUb eWVyOjwvdGQ+ES32nk3 7U5IaFkyeWno5FVXqJL E1yXU4dJ8zUBLuWInzf 6W7wNB4O0CtcgHcxz0d b2xs (more content not included)... Normal [facility] Priority Order-Juan 2021 Priority Order-STAT Comment Invalid Interpretation Code [facility] Comment on above: Result Comment: Rece ived Performed at: [facility] [address] [place], [place] [id number] [id number] [facility] Mina Jones Performed By: #### S ARS-CoV-2, GEORGE, [id number] #### [facility] [address] [place] [address] SARS-CoV-2, NAAon 05-25-2021 SARS-CoV-2 (COVID-19) RNA GEORGE+probe Ql (Resp) Not detected Invalid Interpretation Code Not Detected [facility] Comment on above: Result Comment: This nucleic acid amplification test was developed and its performance characteristics determined by [facility]. Nucleic acid amplification tests include RT-PCR and [...] result in this assay. Performed at: [facility] [id number] PhD Shalom Gonzalez Performed By: #### S ARS-CoV-2, GEORGE, [id number] #### [facility] [address] [place] [address] Family Medicine Phone Visit - Telehealthon 05-22-2021 [...] 6 months ago. Has been using DayQuil [email or web address] with moderate improvement. Review of Systems Fatigue: [...] only communication with the patient located at [address] [place] [address] [phone], with no one else. If it is [...] [place]) Telephone Est 5 to 10 minutes [id number] 2. Fatigue (R53.83: Other fatigue) see above plan, rule out covid. Ordered: Rapid COVID Antigen ([facility]) Telephone Est 5 to 10 minutes 15091 3. BMI 27.0-27.9,adult (Z68.27: Body mass index [...] 1035F Telephone Est 5 to 10 minutes 78915 Follow-up With When Contact Information Irma Burt [...] Normal [facility] Comment on above: Result Comment: Elec [...] height. This can be done either in Indian ([place] or metric measurements. Note that charts are available to help you find your BMI quickly and easily without having to do these calculations yourself. To calculate your BMI in Indian ([place] measurements, your health care provider will: [...] problems. ? BMI can be measured using Indian measurements or metric measurements. ? To interpret [...] Else[employer] Patient Education ? 2019 [employer] [facility] Physician Orderon 04-27-2021 Physician Order [id number] 8#1.00CD:127 [facility] Coding Summary.on 11-04-2020 Coding Summary. CD:[id number] ITo3nMn+PGhlYWQ+PE1 LUYDyL05asHUbzA3UV0 oYOC9GOCAUDCZBNZ2XI A5rkOG8WEipE1GkcoJp GeppwBXcCE93XYp7WVV 3dYtqMSofeH5xzUXuK1 t6WsEeQM18sC39ZWaxM SFhZbI0TqUzunwllUPv O3vaRtBogEXdSnr+PHR hYmxlIHdpZHRoPScxMD OiJnPrlScrRV6eVj8tR GVyLWNvbGxhcHNlOiBj l9hlRGAiJKhkGE0iiNo gF0TkiRU6XEHoj6x6Dc 48dHI+UVYjHOU7eHuqN Dooa888GpLln2jkLJS4 mYKhVGibIRZ6T65ng6P 7GQJzFQPzCEV7iVR2hH 6rvRdqvdtqG6MdvPEcF xM5MGR7jUSanJ7pmToj penkdN0yWmb+X69BDG0 XXHFJPA3WEkn7N1FgRr wvdHI+VZ65BYRuKX42i WFrpBPfj5igsSq0JfYf VZBhTLQ7hPczTJltm7A sPYYfU95fqSUzg6Y3XA VyxNisxEDwSyCccFJ1x Q7sRGanztahq2xkswdh Vadkr6axna11tZ78N31 jTEscOCTyLNL9BHVqEH UjeOcfoq0fuR0kKc7+I Hhvb1fkw9hzoHb3QbCx IMMkzhHsyTwlRJX2u4J bZx07F5GmoLfuo1RsDg n3tw53zVJqe0L3pMI6C TnoSMNywC2jEYicUuW7 UZYrPgBjcN34cACzQXq yWp4vzDwuxBtvIF9oLB EmyroxENRuwG8bRKNbz ZWtpAyxEW6tFTXaijyo z377SpRpMQT6HTQbjYH yY0MdrA3sZbYuQBRgUC BkJ3SdhNVlTHmtI208G GpvMpD6QVDnzcVbF8Cj VSHrbNmjRjF6m7T0Ey6 Jb6BdwovpXUL6BHwaEH Y0RgV4NwHeCiE8P4RhI hs2WAUusXoeCC0mI4Wo MKBduhbnmohmvTX4ZLS jHHLeaE21sALmPVxrBx 0cx4Z2e771VWIvDRHjq P19Kk8zqZikSPJwhVWM wQ0auyopy0mjiuewJvS xYGNaFPj3DSr9PICqhU xlXyJwXTZ2IpN5BLU1q EZfkM1acBbjkcmbaM7t Oyc+L21qkE8aUZC1HCD 9odzgAZVbxlLhZO94ZZ 23Y2RgGbntnBWjbSE+P ULgcgXbzKveOE5lDaXo d9xwc5CkHCzlQ1BlWAA eJUdeLsi3PWQxIUN3lJ L1vY1sFQKbUYhik3H4m ND9N0SxhuYlmu8tc7kt KUGrNOkcB77qhJBec6K 7MTYzqZO6PJBusNkfHj XgqR40Myd+PGNvbGdyb 9LmJumki1qhz3mjmAc2 IjMwJSIgdmFsaWduPSJ 3m5IrOa67N74yGXyrNP RoPSIxNSUiIHZhbGlnb p3ztE3yOm1+PGNvbCB3 dBM1qM9uBPIdUpC7QPg sA987EoHmyPOsGurrj8 fsj1lcvCv3UpLlWBGtc gXitOwvNNJ8v3BfMm35 L96aBSgrUOQkOFTsBEG kYNAhfYbghb5mlN7qBn 8+UM0dh4vtfa05zQ39e HI+MADbLLX5jFgaTFqj BKJwhU7wYTtoYfI1WTQ kIhXprM14dVJpDBhwJy 1goQzviPpsLK2yJMHmx kxtf626VvRbz7jmYCCk gPZgDAlbCVF5I04yb3M 9RJEvTWLfVOC7mGA5cH 1hbGlnbjogbGVmdDsgd uUkyYcvBTyuDGceW672 IHRvcDsnPlBhdGllbnQ vIeEiNCm3D3KyIpc5ZU GtfNcpFQ2mgMWlGRkoI v8aqIjgyUsdFC0jDSOi xdkhr250YjQjd4zcZKF hhIQxDCaoIJF8D05gt5 J4AKNdHFBnYNM8pJX2w L7bcOsnloxmvXYabTdf jkHusFqvAGpiGMozL75 6IHRvcDsnPkJpcnRoIE CvmKW3JG70GH63yNSsg 5Q2bWO2V1EgBDOowcam yllqqCY2BERaMLQseA7 2Qo6kbZehKz2rJYIvCM J2IIClwQKkV4OboG9vT lWpIXXeFJUuV2DooYPj GRceQ496IClvPeU6LNZ vzsHtK9XkIODgtMwpUd N4o0I6Xb8RZ9A0OQ21B D71rLTjo7K1aFC7K8Ic YKMwgkuompqrjIE0JFN nYEFcfK38Kd2xzOfwWf 0mUCXuCYG3CPTlsLPsH 1RmjA2oGlJuJDXvCWGd I6LdyUHuDSzvX284SLf oLmP3PZVrzyYnU3EgWH XiaPrqPtX3j8B2Il9HO Gz3TT13YE52cCCou2S5 aXF9F2NkSEZzyvnpwcb efBU4OBTqIKMmeA94Bb 9erPzvWy1wDYDhSIE0C DGkdUMiQ6XpdH0wYjUe QCTcLABhR3CsfBKiHHq bI368VQeaZmS0YYTigq HdM2GtZLSzyXzqXcB3t 7D2Gw8KEEHpPL28HCM2 eCU4TU11FY95H1TrAvd vdGFibGU+PHRhYmxlIH dpZHRoPScxMDAlJyBzd JxhIU9hZh7fVWRoFMQw rCrsbXXaZnRgy0ivWLN sFUdtEG0vpSsjU5RbhJ S3PRUgh0s5Ih30S00sH 3JvdXA+AYCwaXB2jDW6 vY0bCmGsCwT0CDhlQ25 3ZmCjgWUtCdcyx3qma5 dntMf8DtA4ESNyorSiz KgwPDF3v7FwOu91H57p IHdpZHRoPSIxNSUiIHZ jiHwroa5oxI7zOk8+PG XpcRA7ySR4kD3uKkYqS iI4VOqnT123XrTzeYGp Arzpt5sup0rhlTm7KhG mRUFamfIutIatLJX2n3 XtSe18C5NqjGpdx3YdV yv6zv90qKKem5A6pMQ6 S6QiPCEbimakyOQawTc bNC6gPQOauifpIZNrlD 7jYGQtT5y0JeGxGiJ4G QqdQ0MbtoX2AHSuzLLy KXrxPUH5L69ti3V2HFG bITHeFGA5gXL0nV1ptW lnbjogbGVmdDsgdmVyd ZghFFxgWVzyN551WFTs yFsqDMZbkU9tUSOqpCY ytKvpBW6yNBEacsbeQr qXSZ6IEFJZRasfQFuAL KIGCVPLTK74ZM85bIIc f8J1oBH6X8PiQASigow xgqghrQF5KUQvPSTfhI 09mMFuTXtcMz1mv1V3u 715WMZhXUIpeL94Gb0l tTvhLSVdbFVUwV3vhkp ns5gftblaCyAlLKDjLC a5ZEm0WNTtaJthTePtT TR0McM0QDG5bGKxfR7c vIcxbqjuaN0xCso+MTI jDRmcUWo2UKfrrQZ+PH GcIJK6hNcpEGbcVDRdm V0kGPZlZ7j7YeNdDgQ8 SQlcY5XqHPZbpqhlJk1 4eQ6oDeEkGyZ2KNdzB2 UnfqG6ZNYrkTYdGYaoH DP9O71jx2K3GWNuARZl WPU7cKK3iM6esZnnolc gbGVmdDsgdmVydGljYW chGTouI038GQDcvZcgS iC5QSdxAUSrFM64OR26 gEExc2V5cPD8U3BiSLK lqohbalsijXQ3FPEmJG ViaX56qLYkFPnnEl8rn 0V0w165LCEfSODqeA92 Jh9lkPqxDYCufXNPdL2 gwkjqz1zrdgpkPcCmZS QzMZn9WCl9CIGekWxbF sFgPUB1JvK9IRJ2tFHn dC6lsSbjkuksvI7uXaq +EoNzPMsuHW32IR39hD Ruk6V0hYW6T9NoTEZps ajuonaypHL2OCYvTNXf mZ97sOXyAGxcLv0nm9O 4a275LUHaTNUyeW89Qt 3odCdyGPEvdWLDoS9kl vinf3epkyuyZsWcWCPx PDp0DNg0JGZuoCkeQpE vYKF7NyZ4EMO9tORylN 2faMotnuohxX1eHme+T 1S5aGJ3bEOdrKyqzCX+ BG12vh41M3AuRbkbBao 2JIYgVGE8dEP2eD1hDP IuGQdpx9D6eSZ8O3Bgd iRdtn8ke4ibJJEeCBrz L92pyNQzp9J2LXNzsVR 7MOFuoCwoRcKnuA68Yd c+KLLnuRwmg9UgDfdyq 5kit5gonMa7EkUuMUAf ceCmjWzeFWP3a8AqPs1 0H19uCCylUTSzBMTwHN QiSWXzeWkvyi2hvT7vM i8+OKBzqYJ4sQJ7dB6t AdLjGdL9EKzzY958DnH whTQbAzkju4jcu6ewvS m2BnIdVPNpzwWghUhqR XP3h3HvPz72L7BwkAie h1OgPcq8va91xIJzj4E 5vIP5D3MoUWKrshxwwV HclQevQV5uZFFtgbflX MVbbR7bYLFwM3v6NhGi QzK4YPsuM3XlydJ7SWI idKSqDQPclEYExR1pzk gwk9wgnbepMeZyPAUsY Zz8FNu7AAByhZfoSvEv AHE7MgU5MZF8gMJnlK3 nwLkemceyvN9fAxx+UG a6q8ufhTNbSI9sqKS6M C44DT23kWHzc9R6aGA7 A8LaWHBwjiczhwnwzRQ 7VQQdNWTlwT26Ym2zbE zfQt2gYGPbENQ5RKMrm VBkA3KknE7pImVqREJr KCMgF5PrqVKbQQpfV59 6CLqtExA1BEBhtuXtK8 ApKEUkcUriUlJ1q2W4C z2JZM96LM58HV77iOZt a2C8zMQ7T2IpFCQvpmb dstrbsSN1EPJcRHGgbU 65Uo2dtXvaZy3dCESdF DX4MITzoCCtK0FcxI4o ApLqNKRlRQSnE1AkrMA pATkgO823ZIazYxS8TT AmttAfT3TqRPRzcBjpP yU9c8F7Pm0QAx03CK33 DZ28wWMjp0S9yMM4N9W rKCHgcbcfgruucYO4UD CaPWAiwJ46Wf8mkCkrD y8aJMZgMSM7WSSdwZZw N9LacP5kCrFfPPTmFBA kE9OnyCWhAJzuN331UD ynYtR4NHRrpjIzJ0ZkG OIthXmiBuF6j6R9Gc1S EVtuerp7Y2GoJwdrmXW +YG11JZJuOC05xZPduG Dyr8mkjGw3ScCySMWjQ IG8nIupBQlif7VfKGRl Y29s (more content not included)... [facility] [...] Signature): 10/29/2020 3:14 pm Signed by: Terence oLmas M.D. Transcribed by: SAHYNA Technologist: SHAYNAR Technical Comments GFR (mL/min/1/73m2) age Contrast: Isovue 300 Contrast amount in ml's: 100 Normal [facility] Coding Summary.on 10-28-2020 Coding Summary. CD:[id number] NOc6qZf+PGhlYWQ+PE1 MTFVfM89vwDWzdN9JP1 gMIJ8YCUQZPVHHGS3NP S2wcIT6ISwnD6JeqsGc FlyekEKkAA44ZVh6RAF 1vFzjVWscuR2rbCTbQ9 g8WyRlII04zA12DSvnE TBwBwK2EeBfjfcdwVEc K2hjKwJseZQxSmy+PHR hYmxlIHdpZHRoPScxMD AcFfFcqMcwQM4kDn5cL GVyLWNvbGxhcHNlOiBj l3ieNKTkXMbgTP6jsEb aO9VfdZB4FDZsa1o5Mt 48dHI+AVAhPUF2rRglZ Cokq712YuKgz2pxIYF1 cJPcXZqpHZD3E99sj4V 6WHVsRIRsBJD5nSW6yU 8jhGvnpgjcC5CcmHHwG jI4JSU3nSJwmT1twCxf oyrxoB4xNlb+Q99CWQ0 BCRGFZK3XIxi5O0UyFl wvdHI+MB18YVPeGV33s ZXjoOBfa1pouNm0QeGj UTHqTOZ9fUehWYkbj8P bVZFkQ20flJCer9B5DS OhpIngtHAgJtJwgZN0y X9cPIktijieb4zzbbxu Ojjfa8pmcr50zE66V85 mPYviGORcEFT2UJPeED ZqyJmbte0bfK2wPl0+I Mewt7xay7zlpRh8FvXx HYRyhjKftXvaBQL2u8E bFw88X0MaxScgm4YcEy g9hl92uNMfa0B3uOD9Q GkzVQQsjB2bWJbqBhZ4 PGQtVxKrzH26dVVhMLv iOu7avVwdbPjnRL3rNJ MdnejlODIufK5fTLFzt SIalAjwGP6fYQHlpazz t820UaFtDZM1BTAglHT rE0NatZ5sJaKvRGEjNT OzN3JnjHHrPElgR011C OeuZpP2MGMnurThA9Gk ZSSntBszUjX0w9U4Cq8 Lh5VddzohJKC8IPpdKC I0ZoYlPdFvZuQ4S8ReV tg1AVBqcWjnDJ9qP1Pk MJTcvbweyyonvCH6QJQ xLMVyeL49nGUzZZuvHm 7zo0U8q591YSWzXGHpi J46Rv3ttFuhOWAdtEAU wP8kxjkvo7gfvhgrXuM kDXYgBCe1VTl5CAQxmT wcQiEnMBE9WhH1WLD4s EZorR0vjDsfcdyugW8y Oyc+D97ubT2dESO8RMD 0gazdRPUvugLbUV13CP 24J2KyQwqqaTLqkSW+P BCltyGzsUtfMX0fPpTv u8aop4BqTZfxP8FkPRI lRUzeQuc0KVBgFIR2dJ A5oV7yDUFpILzhs1K3f HV3U2AkgiIqdr6vh0hv ATJpZXjaB29urVRwj2J 9IJYboWB7BCUxmQixGq XblO92Cmb+PGNvbGdyb 6TtCempq3arp7fddIo2 IjMwJSIgdmFsaWduPSJ 7e9TtYr59F49tATmdXK RoPSIxNSUiIHZhbGlnb j7snB3zIn3+PGNvbCB3 wYO7bJ6mBNIhCaE6NDa kS126KtVtwNIdCrvvd4 ocd5luxOd9ViKzUREqp qYhiXocIHL9r4MlNj61 K33xQRhmEYLqGFMbALN nMZEasHhxtf8hzL0qPt 8+PW5pa8snyx18sF65r HI+NKNjLDR9xIriEJdq FYUpgD1vTUdxFnR0QPN aTfYbfN56eHAnPWdiQv 2hkTrofZrqNZ3tPCHuk rilf313XlHij4tyBWGl cWOhMRmjZGM2T80ft9H 5ZFLcGGNhMJM1yYS2eQ 1hbGlnbjogbGVmdDsgd yPayBxpOLewWTmeX228 IHRvcDsnPlBhdGllbnQ bGkBaHGq5G9RgMjz7OI QoiUroPM8meEStHFjnP h7snGkceJihGI3iLFWo pyssh017WrOvc0niJES stDIjYItnKCV4G03be9 S0FODzPHEbWFI3uBV5v P8jsHctvqdqzCObdWrk cbZqkRmbDVuiUBolD52 6IHRvcDsnPkJpcnRoIE LklKO6HD80EN34bIIvo 2Q5wIP6T2MjEKMigbtl tjwcvFO2ELEeCKRetW3 4Uf2znNfjGs9mBRFgAV J7SJWnsHSrW9WnoX6vN fLcPSVzBTFmR6NziYDw DEhbW646JUinCkR3HOD uceNfA7DzDVDdfLxoTk W5k2Y5Gh9XJ3U8PM89R Z28kDJbr9Y2sIE0U0Pr GXOtijonxpcyyJS3XFX qRWSevA79Mv2ywWubWc 5hNUDtBCN9OTHnxEEmE 1HaiX7oJkYfCSMiOQBt N2SmaDYfPRptZ458GOy qCaQ7QVLsyeDsP1TzLD AyjAuyIuJ4o1W9Ws3YQ Bs8LR17SV13gCZyn8C9 lQC7S8FgOBHzpipupog ahYF4AYWfIKMowM88Hy 7gjTepGw7vDATaEJP0L XRroZEzG6UfmJ9eXfCf SXWwJKJmQ0NnuSPhJAu rN110MZszKqX0HSRfeq VlS9DjDCOgsFnpTaP6c 0C5Rn7OIXUbUB03YCZ8 vQB1NU14PX10R6WkAis vdGFibGU+PHRhYmxlIH dpZHRoPScxMDAlJyBzd CucZE7sCk4mTEKiYIDl wQeboEPjKnCrk9wxKDA dPGaxUY8aaMvsE5UonG S0MQEtt6i8Bz94K78cA 3JvdXA+NXZscBB2zLT5 aZ8lQjXwFoB8ZUmeC73 8UaEmpCHtIyhja5mof4 muiGu9ErM8RYPjdrYji CqnMEO5y3PcCd40A09e IHdpZHRoPSIxNSUiIHZ vfFiheq5knD7hEg8+PG LpbWD3bBI7qI1xTfEaQ jN7GIedR262SiIiqKGn Zjvip6zcd2mggOh0PpD cMFTowcFalTdmHOD2o4 BbUo29O7DqvVedl3DdN ld1aa92gDApm0W4kZY6 S5OdTSBqdjznkVNrzWj vFR9jZBWqncupTEVzgG 0rNVRfE9z2SfImIwG4Y CvdA1XtmyH6RZGhvGMc UUzpMBV9X56lp0U6TKA wHYMqXRN9bLK5nX1vpN lnbjogbGVmdDsgdmVyd XvmRXuvVBorR302VNGx kBbwDQOxxR8cGWCyiBE aiFhsTZ3fOUEihkilZw rZRT2XRGRPUzimIUiKF CCMQXPNMD55OU11oDNr z5F5oOG6N4MxTNRzani cjbcqhDB1WNOmQARdwO 26sVQtQBhjSn9xg6B0z 142KAGjZMQdhN11Me6a cHbvCRZrsTBMsA3rhlx db4htkzivNyZwNVUkXT k1BTb5DVYveAjtEiBuG NO2NvV0HUA5cSGknY0b nEywupktrC1lEcf+MTI bVJfpUQa7RWuzuKE+PH KkEIT2wFcoVRwrKBDha D1dWOHpV4d5MgKaMcC0 NEofX8RdKXHxycmwEp6 1hK5kTsLgZlT6SFtjH5 JwxuH3OPHxaWQgQQorX BQ3D25ct2I4ZOUsKDSj YHM6tQU1sE7buZelgvq gbGVmdDsgdmVydGljYW uiZHunJ905VBLkqHnwS uP7PCqmFZIuMI43FK40 qTVkt4T6wTP7D6VlXOW kmlgxsnfgcND8JOEzID UsrU79qSIcUKfzRs5ia 7V5v335NSHoZHEeiA92 Xb2bvCrpYRDuzAYQvH0 iqefmj8nfykftQyVkNH GfPXa7AKq1JRHarIisW dHfOZN9VfR8OQE8gRMd lI7zhDhgwllqpJ4mLti +SqAfZCkdMU77UD97tX Ckc9B3zAK0D3ZdVUOzr byyjpqskMZ8OVMmSHYh sX56uRZpIRfdWg5av1U 6o109JWNgYYMjhW49Fp 0loAsrCZKlpYCOtV9pu ysil7iltxpbFiYwGAMz HZz2HCx0KTPdbKzrOaE dMZP1WqW3UUH2sKBgsG 7egYcvwfhdxH4iIse+T 3B3cML6xMIvyOjqpJO+ WJ03cg72T2FgZarbCpi 3UCZrKLC7fLL8iF9mSB EfMPued2Z1eWY0F0Srw aRgbw9ip9pdXGMuCMbs K91gcXImu6S7TOOthZY 8KJNvwDjmBlRxwG74Mv c+UWTubTzli6ZnKykwk 9vdq0wijDr9PcMhZTRi hcFflDarLVM5d6XhVv7 2O80wNPhhAVXoRBLtLN TbTSZtgMsbkv9xcB5pK i8+CFXstNX7uPZ7lK5h XuNeWtL1QHsaP649KaZ dhDWmDcxuy0cww8qqvD v8SfNjSCQjzkEpkOujN HU5y0XjQj99U8CdmKnz x5AxPdd2kl28nEGek6U 2zPI4M8JpZPXmpfoheC VgdMbzCK3vZTGblkryJ CAofA8tLZVvE2y0ZwHz IcW9DAhvV6HqedR8DHE zoDXuPANjdAWAaQ8bjm pev8txjtrfQbKhSBDtT Ix7GOy8EJZxaIfaWwAh DHB1BhS6AFF5sYJmaQ5 qdSyythdhpQ7lOmq+UG i6a6zkvLDhCY3qpEB9X N26EK69rXCks8W3xXO8 D7ImXAVgcaillcyczRH 9QOXkUQOrvB78Re2cvJ frLd8uDCIyAET1BRZfw QGsY4AmhE6zLsOjMJKp GMBoT4QypRTbMDjfZ89 3TOioFsJ1IHMrxcCkY3 YiFDNipJyiGeG0g8J6W h2JQQ79NK32DO67cHPa f9X6eTI3N1HsZQMjwvo zswpbhJP5GNStBQOkbD 96Ds1ddThvFc6qURZbQ XW3DXTvjWSqV7BruM5p VlXiJGFaYGFuV9WmcXK gLQbhQ674JRysSlY1DY VkhjJyR1YrQJGmhUhkU eC4a1E6Fs4WNs93XX09 JJ81kWBow3S1sBW0G5N kJXQadrprorqinMZ6YQ XpWJXaqN74Bv7dpSwgA g4aDAXeVBQ1AYHnlMFi G6VgqG8aGnRoDCWqBIH oM3NvlRHvUOmeB134MQ ynXgT1MFCyenGpM5KhK PForPfbOnC2y2D0Wh5N NQczvfm8O9PdQzgmeGH +HO29ITLmEZ76fYXltQ Jqq3frbPc6JgKpDVRoX MK6hNkeGDtra0OzBPOh Y29s (more content not included)... [facility] Consent for Treatmenton Consent for Treatment [id number] 44#[id number]:127 [facility] Physician Orderon 10-21-2020 Physician Order [id number] [id number]#[id number]:127 [facility] Consent for Treatmenton Consent for Treatment [id number] [id number]#[id number]:127 [facility] Physician Orderon 10-19-2020 Physician Order [id number]#1.00CD:127 [facility] XR Chest 2 Viewson XR Chest [...] Ball M.D. Transcribed by: SHAYNA Technologist: BECKI [facility] Vital Signs Date Time Vital Sign Value Performing Clinician Facility 07-26-2023 11:27-0500 Body height 170.2 cm Kaitlyn Jasso MD Work Phone: [facility] 06-12-2023 13:00-0500 Body height 170.18 cm Shun Hill Other [employer] Other 06-12-2023 13:00-0500 Body mass index (BMI) [Ratio] 35.24 kg/m2 Shun Hill Other [employer] Other 06-12-2023 13:00-0500 Body weight 102.06 kg Shun Hill Other [place] [employer] Other 03-15-2023 12:29-0400 Diastolic blood pressure 89 mm[Hg] DO Irma Burt Work Phone: [facility] 03-15-2023 12:29-0400 Heart rate 70 /min DO Irma Burt Work Phone: [facility] 03-15-2023 12:29-0400 Respiratory rate 16 /min DO Irma Burt Work Phone: [facility] 03-15-2023 12:29-0400 SaO2% (BldA) [Mass fraction] 100 % DO Irma Burt Work Phone: [facility] 03-15-2023 12:29-0400 Systolic blood pressure 132 mm[Hg] DO Irma Burt Work Phone: [facility] 03-15-2023 08:54-0400 Body height 170.18 cm DO Irma Burt Work Phone: [facility] 03-15-2023 08:54-0400 Body weight 90.71 kg DO Irma Burt Work Phone: [facility] 02-08-2023 14:45-0400 Body height 170.18 cm Shun Hill Other [employer] Other 02-08-2023 14:45-0400 Body mass index (BMI) [Ratio] 34.92 kg/m2 Shun Hill Other [employer] Other 02-08-2023 14:45-0400 Body weight 101.15 kg Shun Hill Other [employer] Other 02-08-2023 14:45-0400 Diastolic blood pressure 80 mm[Hg] Shun Hill Other [employer] Other 02-08-2023 14:45-0400 Systolic blood pressure 131 mm[Hg] Shun Hill Other [employer] Other 01-16-2023 10:35-0400 Body height 170.18 cm Aydee Vaughnmond Other [employer] Other 01-16-2023 10:35-0400 Body mass index (BMI) [Ratio] 35.2 kg/m2 Aydee Nadiya Other [employer] Other 01-16-2023 10:35-0400 Body temperature 98.3 [degF] Aydee Nadiya Other [employer] Other 01-16-2023 10:35-0400 Body weight 101.97 kg Aydee Nadiya Other [employer] Other 01-16-2023 10:35-0400 Diastolic blood pressure 66 mm[Hg] Aydee Nadiya Other [employer] Other 01-16-2023 10:35-0400 Respiratory rate 18 /min Aydee Nadiya Other [employer] Other 01-16-2023 10:35-0400 SaO2% (BldA) [Mass fraction] 98 % Aydee Nadiya Other [employer] Other 01-16-2023 10:35-0400 Systolic blood pressure 105 mm[Hg] Aydee Nadiya Other [employer] Other 09-23-2022 10:45-0400 Body height 170.18 cm Aydee Nadiya Other [employer] Other 09-23-2022 10:45-0400 Body mass index (BMI) [Ratio] 35.13 kg/m2 Aydee Nadiya Other [employer] Other 09-23-2022 10:45-0400 Body temperature 99.2 [degF] Aydee Nadiya Other [employer] Other 09-23-2022 10:45-0400 Body weight 101.74 kg Aydee Nadiya Other [employer] Other 09-23-2022 10:45-0400 Diastolic blood pressure 80 mm[Hg] Aydee Nadiya Other [employer] Other 09-23-2022 10:45-0400 Respiratory rate 18 /min Aydee Nadiya Other [employer] Other 09-23-2022 10:45-0400 SaO2% (BldA) [Mass fraction] 98 % Aydee Nadiya Other [employer] Other 09-23-2022 10:45-0400 Systolic blood pressure 125 mm[Hg] Aydee Hearn Other [employer] Other 09-04-2022 11:20-0400 Body height 170.18 cm Aydee Hearn Other [employer] Other 09-04-2022 11:20-0400 Body mass index (BMI) [Ratio] 31.32 kg/m2 Aydee Hearn Other [employer] Other 09-04-2022 11:20-0400 Body temperature 97.8 [degF] Aydee Hearn Other [employer] Other 09-04-2022 11:20-0400 Body weight 90.72 kg Aydee Hearn Other [employer] Other 09-04-2022 11:20-0400 Respiratory rate 18 /min Aydee Hearn Other [employer] Other 09-04-2022 11:20-0400 SaO2% (BldA) [Mass fraction] 99 % Aydee Hearn Other [employer] Other Encounters Encounter Date Encounter Type Care [...] Start: 10-01-2023 End: 10-01-2023 ambulatory CATHERINE GASPAR [facility] Start: 09-20-2023 End: 09-21-2023 ambulatory KAITLYN [facility] Start: 09-18-2023 End: 09-18-2023 ambulatory SAGAR LUKE Not Available Start: 09-17-2023 End: 09-17-[facility]: 09-17-2023 End: 09-17-2023 ambulatory KAITLYN [facility] Start: 08-31-2023 End: 09-04-[address] [facility] Start: 08-15-2023 End: 08-15-2023 ambulatory IRMA YI Not Available Start: 07-26-2023 Chart abstracting Kaitlyn Jasso MD Work Phone: [facility] Start: 07-18-2023 End: 07-18-2023 ambulatory SAGAR LUKE Not Available Start: 06-20-2023 End: 06-20-2023 ambulatory Shun Hill Other [employer] Other Start: 06-20-2023 Telephone encounter Shun Moncada [facility] Start: 06-19-2023 End: 06-19-2023 ambulatory SAGAR LUKE Not Available Start: 06-12-2023 End: 06-12-2023 ambulatory Shun Hill Other [employer] Other Start: 06-12-2023 Office outpatient vi sit 15 minutes Shun Hill [facility] Start: 05-01-2023 End: 05-01-2023 ambulatory Shun Hill Facility:[facility] Start: 05-01-2023 End: 05-01-2023 ambulatory DO Irma D Burt Work Phone: [facility] Work Phone: Start: 05-01-2023 End: 05-01-2023 Patient encounter procedure DO Irma Burt Work Phone: [facility] Work Phone: Start: 04-10-2023 End: 04-10-2023 ambulatory Shun Hill Facility:[facility] Start: 04-10-2023 End: 04-10-2023 ambulatory DO Irma D Burt Work Phone: [facility] Work Phone: Start: 04-10-2023 End: 04-10-2023 Patient encounter procedure DO Irma Burt Work Phone: [facility] [place] Work Phone: Start: 04-06-2023 End: 04-06-2023 ambulatory Shun Hill Other [employer] Other Start: 04-06-2023 Telephone encounter Shun infante [facility] Start: 03-20-2023 End: 03-20-2023 ambulatory Shun Hill Other [employer] Other Start: 03-20-2023 Telephone encounter Shun infante [facility] Start: 03-19-2023 End: 03-19-2023 ambulatory Shun Hill Other [employer] Other Start: 03-19-2023 Telephone encounter Shun infante [facility] Start: 03-15-2023 End: 03-15-2023 ambulatory Shun Hill Facility:[facility] Start: 03-15-2023 End: 03-15-2023 Admission to same day surgery center DO Irma Burt Work Phone: [facility] Work Phone: Start: 03-15-2023 End: 03-15-2023 ambulatory DO Irma Burt Work Phone: [facility] Work Phone: Start: 02-26-2023 End: 02-26-2023 ambulatory Shun Haleormack Other [employer] Other Start: 02-26-2023 Telephone encounter Shun infante [facility] Start: 02-08-2023 End: 02-08-2023 ambulatory Shun Hill Other [employer] Other Start: 02-08-2023 Office outpatient ne w 45 minutes Shun Hill [facility] Start: 01-16-2023 End: 01-16-2023 ambulatory Aydee Nadiya Other [employer] Other Start: 01-16-2023 Office outpatient vi sit 15 minutes Aydee Nadiya [facility] Start: 09-23-2022 End: 09-23-2022 ambulatory Aydee Nadiya Other [employer] Other Start: 09-23-2022 Office outpatient vi sit 15 minutes Aydee Nadiya [facility] Start: 09-04-2022 End: 09-04-2022 ambulatory Aydee Nadiya Other [employer] Other Start: 09-04-2022 Nursing evaluation o f patient and report Aydee Nadiya [facility] Start: 07-12-2022 End: 07-12-2022 ambulatory Perla Márquez Other [employer] Other Start: 07-12-2022 Office outpatient vi sit 5 minutes Perla Yulisa [facility] Start: 07-07-2022 End: 07-07-2022 ambulatory Aydee Hearn Other [employer] Other Start: 07-07-2022 Encounter for other preprocedural examination Aydee Hearn [facility] Start: 07-07-2022 Nursing evaluation o f patient and report Aydee Hearn [facility] Start: 02-03-2022 End: 02-03-2022 ambulatory Maria Guadalupe Powers Other [employer] Other Start: 02-03-2022 Office outpatient vi sit [...] Td Vaccines (3 - Td or Tdap) [facility] Start: 09-17-2023 End: 09-17-2023 Patient encounter procedure 09/17/2023 8:45 AM EDT Office Visit [facility] [address] [place] [address] Kaitlyn Jasso MD [address] [place] [address] [facility] Start: 09-17-2023 End: 09-17-2023 Patient encounter procedure 09/17/2023 7:30 AM EDT Appointment [facility] [address] [place] [id number] [facility] Start: 05-01-2023 [facility] Start: 03-15-2023 [facility] Start: 01-19-2023 COVID-19 Vaccine ( season) COVID-19 Vaccine () [facility] Start: 01-19-2023 Influenza vaccination Influenza Vacc ine [facility] Start: 12-30-2021 Adult BMI Screening Adult BMI Screen ing [facility] Start: 2006 Screening for malign ant neoplasm of cervix Pap Smear [facility] Start: 1997 Depression Screening Depression Scre ening [facility] Start: 1997 Tobacco Screening Tobacco Screening [facility] Immunizations Immunization Date Immunization Notes Care Provider Fa cility 02-03-2020 influenza virus vaccine, unspecified formulation Kaitlyn Jasso MD Work Phone: [facility] Payers Date Payer Category Payer Private Health Insurance [id number] 2023 Self-pay [id number] 2018 Private Health Insurance [employer] A ETNA POS II [id number] 2018-Present [phone] [address] [address] [place] [address] [id number] 1985 Unknown [id number] 2.840.1.766586.3.579.2 .1285 1985 Unknown [id number] 2.840.1.432237.3.579.2 .1285 1985 Unknown [id number] 2.840.1.949774.3.579.2 .1285 1985 Unknown [id number] 2.840.1.820411.3.579.2 .1285 1985 Unknown [id number] 2.840.1.663510.3.579.2 .1285 1985 Unknown [id number] 2.840.1.689476.3.579.2 .1285 1985 Unknown [id number] 2.840.1.676968.3.579.2 .1285 1985 Unknown [id number] 07.06.830.1.944154.3.579.2 .1285 1985 Unknown [id number] 2.840.1.067484.3.579.2 .1285 1985 Unknown [id number] 20.1.867171.3.579.2 .1285 1985 Unknown [id number] 20.1.768938.3.579.2 .1285 1985 Unknown [id number] 840.1.893156.3.579.2 .1258 1985 Unknown [id number] 2.840.1.576198.3.579.2 .1258 1985 Unknown [id number] 2840.1.861528.3.579.2 .1258 1985 Unknown [id number] 2.840.1.601262.3.579.2 .1258 1985 Unknown [id number] 2.840.1.127344.3.579.2 .1258 1985 Unknown [id number] 2.840.1.911308.3.579.2 .1259 1985 Unknown [id number] 2.840.1.755439.3.579.2 .1259 1985 Unknown [id number] 2.840.1.642322.3.579.2 .1259 Medicaid [facility] [id number] Private Health Insurance [id number] Unknown [employer] [id number] Unknown [id number] 2.840.1.551632.3.579.2 .531 Unknown [id number] 2.840.1.185371.3.579.2 .531 Unknown [id number] 840.1.376143.3.579.2 .531 Social History Date Type Detail Facility Start: 06-30-2020 End: 07-26-2023 Sex Assigned At [facility] [employer] Other Start: 03-15-2023 End: 03-15-2023 Tobacco smoking status ORIS Ex-smoker (finding) [facility] Start: 1985 Sex Assigned At Female F [facility] Start: 11-17-2020 Tobacco smoking stat us [facility] Smokes tobacco daily [facility] History of tobacco use Tobacco U se Types Packs/Day Years Used Date Smoking Tobacco: Every Day Vaping/E-cigarettes Smokeless Tobacco: Never [facility] Start: 11-17-2020 Tobacco use and exposure Smokeless tobacco non-user [facility] Start: 07-26-2023 Alcohol intake Current drinke r of alcohol (finding) [facility] Start: 06-30-2020 End: 07-26-2023 History of Social function [facility] Childcare Unknown [facility] Start: 11-17-2020 Alcohol Comment social [facility] Start: 05-04-2023 [facility] Start: 1985 Sex Assigned At Not on file P [facility] Goals Date Patient Goal Desired Activity /State [...] Mayelin Pinto DO on 08/31/2023 11:[address] [facility] 06-12-2023 Evaluation note Encounter Date Diagnosis Assessment Notes May, Diarrhea (ICD-10 - R19.7) Patient reports that she is about 7-8 weeks gestational Patient reports improvement on Creon with occasional flare Patient reports that she is taking a fiber supplement May, Fatty liver (ICD-10 - K76.0) Patient did have a FibroScan that indicates fatty liver and minimal scaring, this will be reviewed [employer] Other 11-17-2023 Evaluation note* Encounter Date Diagnosis Assessment Notes Treatment Notes Treatment Clinical Notes Mar, Exocrine pancreatic insufficiency (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) [employer] Other 10-31-2023 Evaluation note* Encounter Date Diagnosis Assessment Notes Treatment Notes Treatment Clinical Notes Feb, Alternating constipation and diarrhea (ICD-10 - R19.8) Feb, Fecal urgency (ICD-10 - R15.2) [employer] Other 10-30-2023 Evaluation note* Encounter Date Diagnosis Assessment Notes Treatment Notes Treatment Clinical Notes Feb, Alternating constipation and diarrhea (ICD-10 - R19.8) [employer] [facility] Encounter Date Diagnosis Assessment Notes Treatment Notes Treatment Clinical Notes Feb, Alternating constipation and diarrhea (ICD-10 - R19.8) [employer] Other 09-21-2023 Evaluation note* Encounter Date Diagnosis Assessment Notes Treatment Notes Treatment Clinical Notes Jan, Alternating constipation and diarrhea (ICD-10 - R19.8) WORSENING DIARRHEA AND CONSTIPATION OVER THE PAST YEAR. DOES HAVE SOME NOCTURNAL AWAKENINGS WITH THE DIARRHEA. CAN GO 4-5 DAYS WITH OUT A BOWEL MOVEMENT WHEN SHE IS CONSTIPATED. WILL ORDER IBS WORK UP WILL PROCEED WITH COLONOSCOPY [employer] Other 08-29-2023 Evaluation note* Encounter Date Diagnosis [...] no improvement in 2 to 3 days [employer] Other 2023 Evaluation note* Encounter Date Diagnosis [...] no improvement in 2 to 3 days [employer] Other 04-17-2023 Evaluation note* Encounter Date Diagnosis Assessment Notes Treatment Notes Treatment Clinical Notes Aug, Contact with and (suspected) exposure to other viral communicable diseases (ICD-10 - Z20.828) [employer] Other 02-22-2023 Evaluation note* Encounter Date Diagnosis Assessment Notes Treatment Notes Treatment Clinical Notes 22 Feb, 2023 Contact with and (suspected) exposure to covid-19 (ICD-10 - Z20.822) [employer] Other 02-17-2023 Evaluation note* Encounter Date Diagnosis Assessment Notes Treatment Notes Treatment Clinical Notes Jun, Preoperative clearance (ICD-10 - Z01.818) [employer] Other 09-16-2022 Evaluation note* Encounter Date Diagnosis Assessment Notes Treatment Notes Treatment Clinical Notes Jan, Contact with and (suspected) exposure to covid-19 (ICD-10 - Z20.822) [employer] Other Evaluation note* Diagnosis Onset Date Resolution Status Diarrhea acute [facility] Work Phone: Evaluation noteNo InformationNort [employer] Other History general Narrative - Reported* Type Description Date Medical History ANXIETY AND DEPRESSION [employer] Other Hospital Discharge instructions Additional Instructions DISCHARGE [...] if you have any problems. -Office number [phone] Work Phone: InstructionsNot on filedocumented in this encounter [facility] SystemReason for visit NarrativeRED EQUINOX, ANTIGEN PROCEDURE TESTNobarnes-j[facility] [employer] Other Reason for visit NarrativeNEEDSNEGATIVE, RAPID COVID TEST FOR PROCEDURENobarnes-j[facility] [employer] Other Summary Purpose Family History No Family [...] section and content) DATE CREATED AUTHOR 08/24/2021 [place] DATE CREATED AUTHOR AUTHOR'S ORGANIZ ATION 05/09/2023 [facility] DATE CREATED AUTHOR AUTHOR'S ORGANIZ ATION 09/22/2023 [facility] DATE CREATED AUTHOR AUTHOR'S ORGANIZ ATION 12/06/2023 [facility] DATE CREATED AUTHOR AUTHOR'S ORGANIZ ATION 12/10/2023 [facility] EPIC REASON FOR VISIT [...] Active Shun Hill MD Attending Provider 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 [facility] SystemsConstant [facility]. provides no warranty or guarantee of the accuracy or completeness of information in this document.
[2023-12-20 14:08] VITALS: BP 127/63; PULSE 106
== END 2023-12-20 14:55 | disposition home or self-care (01) ==
LOC: FBCO 07:13 → FBC 13:54
PROVIDERS: Visit Provider Obstetrics & Gynecology
DX: O09.523 Supervision of elderly multigravida, third trimester (principal)
CPT/HCPCS: 59025

== ENCOUNTER 2023-12-24 07:01 | Outpatient (OUT) | payer OTHER, SELFPAY ==
--- OUTSIDE RECORDS SUMMARY | 2023-12-24 07:04 | XMS_ITS ---
Patient Summarization (C-CDA 2.1 CCD) Created on: December 24, 2023 LAURA ALVES : 1985 Sex: Female Author Organization Sample organization Care Team Providers Care Central Office Equipment Engineer Name Role Phone Maria Guadalupe Powers Unavailable Aydee Hearn Unavailable Yulisa Perla Unavailable Shun Hill Unavailable MD Shun Hill Attending Provider [phone] DO Irma Burt Primary Care Provider MD Shun Hill Attending Provider DO Irma Burt Primary Care Provider Shun Hill Admitting Unavailabl Irma Broussard Primary Care Unavailable Shun Hill Attending UnavailShun Lee Attending Unavailabl Shun Choudhury Admitting Unavailabl e Irma Burt Primary Care Unavailable Shun Hill Admitting Unavailabl [...] NO PCP Primary Care Unavailable KAITLYN JASSO Unavailable SREE GORMAN Referring Unavailable NO PCP, NO PCP Primary Care Unavailable LUKE, SAGAR Attending Unavailable LUKE, SAGAR Attending Unavailable KD, IRMA Attending Unavailable LUKE, SAGAR Attending Unavailable KD, IRMA Attending Unavailable LUKE, SAGAR Attending Unavailable LUKE, SAGAR Attending Unavailable KD, IRMA Attending Unavailable KD, IRMA Attending Unavailable Encounters Encounter Date Encounter Type Care Provider Facility Start: 12-19-2023 End: 12-19-2023 ambulatory IRMA KD Not Available Start: 12-06-2023 End: 12-06-2023 ambulatory IRMA KD Not Available Start: 11-30-2023 End: 11-30-2023 ambulatory SAGAR R LUKE [facility] Start: 11-21-2023 End: 11-21-2023 ambulatory SAGAR LUKE Not Available Start: 11-14-2023 End: 11-14-2023 ambulatory DILSHAD FRAGA [facility] Start: 11-07-2023 End: 11-07-2023 ambulatory SAGAR LUKE Not Available Start: 11-07-2023 End: 11-07-2023 ambulatory ERA MCMANUS [facility] Start: 10-22-2023 End: 10-26-[address] [facility] Start: 10-22-2023 End: 10-22-2023 ambulatory SAGAR R LUKE [facility] Start: 10-09-2023 End: 10-09-2023 ambulatory IRMA KD Not Available Start: 10-01-2023 End: 10-01-2023 ambulatory CATHERINE GASPAR [facility] Start: 09-20-2023 End: 09-21-2023 ambulatory [facility] Start: 09-18-2023 End: 09-18-2023 ambulatory SAGAR LUKE Not Available Start: 09-17-2023 End: 09-17-2023 ambulatory SAGAR R LUKE [facility] Start: 09-17-2023 End: 09-17-2023 ambulatory KAITLYN JASSO [facility] Start: 08-31-2023 End: 09-04-2023 ambulatory FROYLAN RAMOS [facility] Start: 08-15-2023 End: 08-15-2023 ambulatory IRMA YI Not Available Start: 07-26-2023 Chart abstracting Kaitlyn Jasso MD Work Phone: [facility] Start: 07-18-2023 End: 07-18-2023 ambulatory SAGAR LUKE Not Available Start: 06-20-2023 End: 06-20-2023 ambulatory Shun Hill [employer] Other Start: 06-20-2023 Telephone encounter Shun Moncada [facility] Start: 06-19-2023 End: 06-19-2023 ambulatory SAGAR LUKE Not Available Start: 06-12-2023 End: 06-12-2023 ambulatory Shun Hill [employer] Other Start: 06-12-2023 Office outpatient vi sit 15 minutes Shun Hill [facility] Start: 05-01-2023 End: 05-01-2023 ambulatory Shun Hill Facility:[facility] Start: 05-01-2023 End: 05-01-2023 ambulatory DO Irma Burt Work Phone: [facility] Work Phone: Start: 05-01-2023 End: 05-01-2023 Patient encounter procedure DO Irma Burt Work Phone: [facility]-Dig[facility] Work Phone: Start: 04-10-2023 End: 04-10-2023 ambulatory Shun Hill Facility:[facility] Start: 04-10-2023 End: 04-10-2023 ambulatory DO Irma Landrum Burt Work Phone: [facility] Work Phone: Start: 04-10-2023 End: 04-10-2023 Patient encounter procedure DO Irma Burt Work Phone: [facility] [place] Work Phone: Start: 04-06-2023 End: 04-06-2023 ambulatory Shun Hill [employer] Other Start: 04-06-2023 Telephone encounter Shun infante [facility] Start: 03-20-2023 End: 03-20-2023 ambulatory Shun Hill [employer] Other Start: 03-20-2023 Telephone encounter Shun infante [facility] Start: 03-19-2023 End: 03-19-2023 ambulatory Shun Hill [employer] Other Start: 03-19-2023 Telephone encounter Shun infante [facility] Start: 03-15-2023 End: 03-15-2023 ambulatory Shun Hill Facility:[facility] Start: 03-15-2023 End: 03-15-2023 Admission to same day surgery center DO Irma Burt Work Phone: [facility] Work Phone: Start: 03-15-2023 End: 03-15-2023 ambulatory DO Irma Landrum Burt Work Phone: [facility] Work Phone: Start: 02-26-2023 End: 02-26-2023 ambulatory Shun Hill [employer] Other Start: 02-26-2023 Telephone encounter Shun infante [facility] Start: 02-08-2023 End: 02-08-2023 ambulatory Shun Hill [employer] Other Start: 02-08-2023 Office outpatient ne w 45 minutes Shun Hill [facility] Start: 01-16-2023 End: 01-16-2023 ambulatory Aydee Nadiya [employer] Other Start: 01-16-2023 Office outpatient vi sit 15 minutes Aydee Nadiya [facility] Start: 09-23-2022 End: 09-23-2022 ambulatory Aydee Nadiya [employer] Other Start: 09-23-2022 Office outpatient vi sit 15 minutes Aydee Nadiya [facility] Start: 09-04-2022 End: 09-04-2022 ambulatory Aydee Naidya [employer] Other Start: 09-04-2022 Nursing evaluation o f patient and report Aydee Nadiya [facility] Start: 07-12-2022 End: 07-12-2022 ambulatory Perlarolo Márquez [employer] Other Start: 07-12-2022 Office outpatient vi sit 5 minutes Perla Yulisa [facility] Start: 07-07-2022 End: 07-07-2022 ambulatory Aydee Nadiya [employer] Other Start: 07-07-2022 Encounter for other preprocedural examination Aydee Nadiya [facility] Start: 07-07-2022 Nursing evaluation o f patient and report Aydee Nadiya [facility] Start: 02-03-2022 End: 02-03-2022 ambulatory Maria Guadalupe Powers [employer] Other Start: 02-03-2022 Office outpatient vi sit 5 minutes Maria Guadalupe Powers [facility] Urgent Care Meet Goals Date Patient Goal Desired Activity /State Immunizations Immunization Date Immunization Notes Care Provider Raul hernández 02-03-2020 influenza virus vaccine, unspecified formulation Kaitlyn Jasso MD Work Phone: [facility] Medications Current Medications Medication Drug Class(es) Dates Sig (Normalized) Sig (Original) amoxicillin 500 mg oral capsule (2 sources) Penicillin-class Antibacterial Start: 07-26-2022 take 1 capsule by mouth every eight hours Amoxicillin 500 MG 1 capsule Orally three times a day for 10 day(s) Jul, Active amylase 312416 unt / lipase 10529 unt / protease [id number] unt delayed release oral capsule (3 sources) Start: 04-06-2023 take 2 capsules by mouth three times daily at mealtime Creon [id number] UNIT 2 capsules Orally three times a [...] 1 tablet by mouth twice daily Sutab 1201-003-856 MG 12 tablets the first dose the [...] 5 day(s) September, Not-Taking 84 hr estradiol 0.02080 mg/hr transdermal system (4 sources) Estrogen take [...] 06, 2018 11:00pm March 15, 2023 7:47am Payers Date Payer Category Payer Private Health Insurance [id number] 2023 Self-pay [id number] 2018 Private Health Insurance AEBUNNY GURROLA POS II [id number] 2018-Present [phone] [address] [place] [address] [id number] .[id number] 1985 Unknown [id number] 2.16.840.1.760525.3.579.2 .1285 1985 Unknown [id number] 2.16.840.1.044369.3.579.2 .1285 1985 Unknown [id number] 2.16.840.1.472925.3.579.2 .1285 1985 Unknown [id number] 2.16.840.1.117797.3.579.2 .1285 1985 Unknown [id number] 2.16.840.1.674309.3.579.2 .1285 1985 Unknown [id number] 2.16.840.1.620747.3.579.2 .1285 1985 Unknown [id number] 2.16.840.1.979364.3.579.2 .1285 1985 Unknown [id number] 2.16.840.1.720825.3.579.2 .1285 1985 Unknown [id number] 2.16.840.1.671274.3.579.2 .1285 1985 Unknown [id number] 2.16.840.1.380475.3.579.2 .1285 1985 Unknown [id number] 2.16.840.1.690935.3.579.2 .128 1985 Unknown [id number] 2.16.840.1.689388.3.579.2 .1258 1985 Unknown [id number] 2.16.840.1.120745.3.579.2 .1258 1985 Unknown [id number] 2.16.840.1.023823.3.579.2 .1259 1985 Unknown [id number] 2.16.840.1.853826.3.579.2 .1259 1985 Unknown [id number] 2.16840.1.037503.3.579.2 .1258 1985 Unknown [id number] 2.16.840.1.282720.3.579.2 .1258 1985 Unknown [id number] 2.16.840.1.794475.3.579.2 .1258 1985 Unknown [id number] 2.16.840.1.460089.3.579.2 .1258 1985 Unknown [id number] 2.16840.1.906071.3.579.2 .1259 Medicaid [employer] [id number] Private Health Insurance [id number] 2.16.840.1.445806.19 Unknown [employer] [id number] Unknown [id number] 2.16.840.1.485749.3.579.2 .531 Unknown [id number] 2.16.840.1.165326.3.579.2 .531 Unknown [id number] 2.16.840.1.429968.3.579.2 .531 Plan of Treatment Date Care Activity Detail Author Start: 01-18-2026 DTaP,Tdap and Td Vaccines (3 - Td or Tdap) DTaP,Tdap and Td Vaccines (3 - Td or Tdap) [facility] Start: 09-17-2023 End: 09-17-2023 Patient encounter procedure 09/17/2023 8:45 AM EDT Office Visit [facility] [address] [place] [address] Kaitlyn Jasso MD [address] [facility] [address] [place] [address] [facility] Start: 09-17-2023 End: 09-17-2023 Patient encounter procedure 09/17/2023 7:30 AM EDT Appointment [facility] [address] [place] [address] [facility] Start: 05-01-2023 [facility] Start: 03-15-2023 [facility] Start: 01-19-2023 COVID-19 Vaccine () COVID-19 Vaccine () [facility] Start: 01-19-2023 Influenza vaccination Influenza Vacc ine [facility] Start: 12-30-2021 Adult BMI Screening Adult BMI Screen ing [facility] Start: 2006 Screening for malign ant neoplasm of cervix Pap Smear [facility] Start: 1997 Depression Screening Depression Scre ening [facility] Start: 1997 Tobacco Screening Tobacco Screening [facility] Problems Active Problems Problem Classification Problem Date [...] (1 source) No known active problems 12-30-2020 Procedures Date Procedure Procedure Detail Performing Clinician [...] antibody qual Not In System Ref Prov Results Test Name Value Interpretation Reference Range Facility PROTEIN CREAT RATIOon 2023 RANDOM URINE PROTEIN 170 mg/L High <120 [facility] Comment on above: Performed By: #### U PCR #### [facility] ([id number]) [address], [address] [place] [address] U/PRO/DOCENT COORDINATOR RATIO CALC 0.17 Normal <0.2 [facility] Comment on above: Result Comment: Neph rotic Syndrome is associated with ratios >3.5 Performed By: #### U PCR #### [facility] ([id number]) [address], [address] [place] [address] URINE CREATININE,RDM 98.06 mg/dL Normal [facility] Comment on above: Performed By: #### U PCR #### [facility] ([id number]) [address], [address] [place] [address] COMPLETE BLOOD COUNTon 09-16 Erythrocyte distribution width (RBC) [Ratio] 13.0 % Normal 11.5-15.0 [facility] Comment on above: Performed By: #### C BC, CMP, FEPR, 2532-0, 3084-1, TSHR, 2276-4, 2284-8, 2132-01 #### [facility] ([id number]) [address], [address] [place] [address] Hematocrit (Bld) [Volume fraction] 34.6 % Low 35-47 [facility] Comment on above: Performed By: #### C BC, CMP, FEPR, 2532-0, 3084-1, TSHR, 2276-4, 2284-8, 2132-01 #### [facility] ([id number]) [address], [address] [place] [address] Hemoglobin (Bld) [Mass/Vol] 11.9 g/dL Normal 11.7-15.5 [facility] Comment on above: Performed By: #### C BC, CMP, FEPR, 2532-0, 3084-1, TSHR, 2276-4, 2284-8, 9 #### [facility] ([id number]) [address], [address] [place] [address] MCH (RBC) [Entitic mass] 30.9 pg Normal 27-34 [facility] Comment on above: Performed By: #### C BC, CMP, FEPR, 2532-0, 3084-1, TSHR, 2276-4, 2284-8, 2132-01 #### [facility] ([id number]) [address], [address] [place] [address] MCHC (RBC) [Mass/Vol] 34.4 g/dL Normal 32-36 [facility] Comment on above: Performed By: #### C BC, CMP, FEPR, 2532-0, 3084-1, TSHR, 2276-4, 2284-8, 2132-01 #### [facility] ([id number]) [address] [place] [address] MCV (RBC) [Entitic vol] 90 fL Normal 80-100 [facility] Comment on above: Performed By: #### C BC, CMP, FEPR, 2532-0, 3084-1, TSHR, 2276-4, 2284-8, 2132-01 #### [facility] ([id number]) [address] [facility] [place] [address] Platelet mean volume (Bld) [Entitic vol] 9.4 fL Normal 7-12 [facility] Comment on above: Performed By: #### C BC, CMP, FEPR, 2532-0, 3084-1, TSHR, 2276-4, 2284-8, 2132-01 #### [facility] ([id number]) [address], [address] [place] [address] Platelets (Bld) [#/Vol] 181 10*3/uL Normal 150-450 [facility] Comment on above: Performed By: #### C BC, CMP, FEPR, 2532-0, 3084-1, TSHR, 2276-4, 2284-8, 2132-01 #### [facility] ([id number]) [address], [address] [place] [address] RBC COUNT 3.85 X10E12/L Normal 3.80-5.20 [facility] Comment on above: Performed By: #### C BC, CMP, FEPR, 2532-0, 3084-1, TSHR, 2276-4, 2284-8, 2132-01 #### [facility] ([id number]) [address], [address] [place] [address] WBC (Bld) [#/Vol] 11.3 10*3/uL High 4.0-11.0 [facility] Comment on above: Performed By: #### C BC, CMP, FEPR, 2532-0, 3084-1, TSHR, 2276-4, 2284-8, 2132-01 #### [facility] ([id number]) [address] [place] [address] COMPREHENSIVE METABOLIC PANE Charles 09-17-2023 Albumin [Mass/Vol] 3.4 g/dL Normal 3.2-5.3 [facility] Comment on above: Performed By: #### C BC, CMP, FEPR, 2532-0, 3084-1, TSHR, 2276-4, 2284-8, 2132-01 #### [facility] ([id number]) [address], [address] [place] [address] ALP [Catalytic activity/Vol] 71 U/L Normal 39-130 [facility] Comment on above: Performed By: #### C BC, CMP, FEPR, 2532-0, 3084-1, TSHR, 2276-4, 2284-8, 2132-01 #### [facility] ([id number]) [address], [address] [place] [address] ALT [Catalytic activity/Vol] 11 U/L Normal 0-31 [facility] Comment on above: Performed By: #### C BC, CMP, FEPR, 2532-0, 3084-1, TSHR, 2276-4, 2284-8, 2132-01 #### [facility] ([id number]) [address], [address] [place] [address] Anion gap [Moles/Vol] 11 mmol/L Normal 5-15 [facility] Comment on above: Performed By: #### C BC, CMP, FEPR, 2532-0, 3084-1, TSHR, 2276-4, 2284-8, 2132-01 #### [facility] ([id number]) [address], [address] [place] [address] AST [Catalytic activity/Vol] 13 U/L Normal 0-41 [facility] Comment on above: Performed By: #### C BC, CMP, FEPR, 2532-0, 3084-1, TSHR, 2276-4, 2284-8, 2132-01 #### [facility] ([id number]) [address], [address] [place] [address] Bilirubin [Mass/Vol] 0.3 mg/dL Normal 0.3-1.2 [facility] Comment on above: Performed By: #### C BC, CMP, FEPR, 2532-0, 3084-1, TSHR, 2276-4, 2284-8, 2132-01 #### [facility] ([id number]) [address], [address] [place] [address] Calcium [Mass/Vol] 9.0 mg/dL Normal 8.5-10.5 [facility] Comment on above: Performed By: #### C BC, CMP, FEPR, 2532-0, 3084-1, TSHR, 2276-4, 2284-8, 2132-01 #### [facility] ([id number]) [address], [address] [place] [address] Chloride [Moles/Vol] 104 mmol/L Normal 98-109 [facility] Comment on above: Performed By: #### C BC, CMP, FEPR, 2532-0, 3084-1, TSHR, 2276-4, 2284-8, 2132-01 #### [facility] ([id number]) [address], [address] [place] [address] CO2 [Moles/Vol] 24 mmol/L Normal 22-32 [facility] Comment on above: Performed By: #### C BC, CMP, FEPR, 2532-0, 3084-1, TSHR, 2276-4, 2284-8, 2132-01 #### [facility] ([id number]) [address], [address] [place] [address] Creatinine [Mass/Vol] 0.46 mg/dL Normal 0.40-1.00 [facility] Comment on above: Result Comment: METH OD TRACEABLE TO IDMS STANDARD Performed By: #### C BC, CMP, FEPR, 2532-0, 3084-1, TSHR, 2276-4, 4-8, 2132-01 #### [facility] ([id number]) [address], [address] [place] [address] eGFR (CKD-EPI) NON-RACE DEPENDENT >90 Normal >59 [facility] Comment on above: Result Comment: Reported eGFR is based on the CKD-EPI 2020 equation that does not use a race coefficient. Performed By: #### C BC, CMP, FEPR, 2532-0, 3084-1, TSHR, 2276-4, 4-8, 2132-01 #### [facility] ([id number]) [address], [address] [place] [address] Glucose [Mass/Vol] 78 mg/dL Normal 65-99 [facility] Comment on above: Performed By: #### C BC, CMP, FEPR, 2532-0, 3084-1, TSHR, 2276-4, 2284-8, 2132-01 #### [facility] ([id number]) [address], [address] [place] [address] Potassium [Moles/Vol] 4.0 mmol/L Normal 3.5-5.0 [facility] Comment on above: Performed By: #### C BC, CMP, FEPR, 2532-0, 3084-1, TSHR, 2276-4, 2284-8, 2132-01 #### [facility] ([id number]) [address], [address] [place] [address] Protein [Mass/Vol] 6.5 g/dL Normal 6.0-8.0 [facility] Comment on above: Performed By: #### C BC, CMP, FEPR, 2532-0, 3084-1, TSHR, 2276-4, 2284-8, 2132-01 #### [facility] ([id number]) [address], [address] [place] [address] Sodium [Moles/Vol] 139 mmol/L Normal 134-146 [facility] Comment on above: Performed By: #### C BC, CMP, FEPR, 2532-0, 3084-1, TSHR, 2276-4, 2284-8, 2132-01 #### [facility] ([id number]) [address], [address] [place] [address] Urea nitrogen [Mass/Vol] 8 mg/dL Normal 5-23 [facility] Comment on above: Performed By: #### C BC, CMP, FEPR, 2532-0, 3084-1, TSHR, 2276-4, 2284-8, 2132-01 #### [facility] ([id number]) [address], [address] [place] [address] FERRITINon 09-17-2023 Ferritin [Mass/Vol] 11 ng/mL Normal 11-307 [facility] Comment on above: Performed By: #### C BC, CMP, FEPR, 2532-0, 3084-1, TSHR, 2276-4, 2284-8, 9 #### [facility] ([id number]) [address], [address] [place] [address] Folate [Mass/Vol]on 09-17-19 FOLIC ACID 18.1 ng/mL Normal >5.8 [facility] Comment on above: Result Comment: NEW REFERENCE RANGE Performed By: #### C BC, CMP, FEPR, 2532-0, 3084-1, TSHR, 2276-4, 2284-8, 2132-01 #### [facility] ([id number]) [address], [address] [place] [address] IRON PROFILEon 09-17-2023 Iron [Mass/Vol] 52 ug/dL Normal 50-170 [facility] Comment on above: Performed By: #### C BC, CMP, FEPR, 2532-0, 3084-1, TSHR, 2276-4, 2284-8, 2132-01 #### [facility] ([id number]) [address], [address] [place] [address] IRON BINDING 580 ug/dL High 250-425 [facility] Comment on above: Performed By: #### C BC, CMP, FEPR, 2532-0, 3084-1, TSHR, 2276-4, 2284-8, 2132-01 #### [facility] ([id number]) [address], [address] [address] IRON SATURATION 9 % SATURATION Low 15-50 [facility] Comment on above: Performed By: #### C BC, CMP, FEPR, 2532-0, 3084-1, TSHR, 2276-4, 2284-8, 2132-01 #### [facility] ([id number]) [address], [address] [place] [address] LDH [Catalytic activity/Vol] on 09-17-2023 LDH 124 U/L Normal 100-235 [facility] Comment on above: Performed By: #### C BC, CMP, FEPR, 2532-0, 3084-1, TSHR, 2276-4, 2284-8, 2131-9 #### [facility] ([id number]) [address] [place] [address] Natriuretic peptide B [Mass/ Vol]on 09-17-2023 Natriuretic peptide B (Bld) [Mass/Vol] 66 pg/mL Normal <100.0 [facility] Comment on above: Performed By: #### C BC, CMP, FEPR, 2532-0, 3084-1, TSHR, 2276-4, 2284-8, 9 #### [facility] ([id number]) [address], [address] [place] [address] TSH WITH REFLEXon 09-17-2023 TSH 0.78 uIU/mL Normal 0.49-4.67 [facility] Comment on above: Performed By: #### C BC, CMP, FEPR, 2532-0, 3084-1, TSHR, 2276-4, 2284-8, 2132-01 #### [facility] ([id number]) [address] [place] [address] Thiamine (Bld) [Mass/Vol]on 09-17-2023 THIAMIN VITAMIN B1 See Below Normal [facility] Comment on above: Result Comment: NOTE [...] developed and its performance characteristics determined by [facility] [place] ([facility]). It has not been cleared or approved by the FDA. -[facility] is regulated under CLIA as qualified to perform high-complexity testing. This test is used for clinical purposes. It should not be regarded as investigational or for research. Test Performed By: [facility] [employer] [address] [place] [address] Nuclear Medicine Chief Technologist: Colin Cisneros III, M.D. CLIA #[id number] Performed By: #### C BC, CMP, FEPR, 2532-0, 3084-1, TSHR, 2276-4, 2284-8, 213-9 #### [facility] ([id number]) [address] [place] [address] URIC ACIDon 09-17-2023 Urate [Mass/Vol] 5.1 mg/dL Normal 2.6-7.2 [facility] Comment on above: Performed By: #### C BC, CMP, FEPR, 2532-0, 3084-1, TSHR, 2276-4, 2284-8, 2131-9 #### [facility] ([id number]) [address], [address] [place] [address] VITAMIN B12on 09-17-2023 Cobalamin (Vitamin B12) [Mass/Vol] 185 pg/mL Normal 180-914 [facility] Comment on above: Performed By: #### C BC, CMP, FEPR, 2532-0, 3084-1, TSHR, 2276-4, 2284-8, 2131-9 #### [facility] ([id number]) [address], [address] [place] [address] TSHon 05-25-2023 Thyroid Stimulating (3Rd Generation) Hormone/ Tsh 2.[address] [facility] CT abdomen w conon 3 CT abdomen w [facility] Main [address] [address] [address] Scan Report Signed Patient: Laura Alves MR#: [id number] 3 : 1985 Acct:[id number] Age/Sex: 37 / F ADM Date: 04/10/23 Loc: CT Room: Type: [facility] Attending Dr: Shun Hill MD [...] Stan Owens M.D.04/10/2023 4:03 PM Dictation Location: [place] [address] Transcribed By: [facility] 04/10/23 160 Dictated By: Stan Owens DO 04/10/23 1556 Signed By: 04/10/23 1608 Normal [facility] HCG ( test) IA.rapi d Ql (U)Ordered By: Shun Hill on 03-15-2023 HCG ( test) Ql (U) Negative [facility] HCG,Urineon 03-15-2023 Beta HCG ( test) Ql (U) Negative Normal [facility] Comment on above: Result Comment: PERF ORMED BY: [address] [place] [address] PATHOLOGIST PLASTER MACHINE TENDER MARINA AYALA M.D. Performed By: #### U HCG #### [facility] [address] [id number] [facility] 03-15-2023 L Specimen: [id number] Received: 03/15/23 Status: BUSTER Fuentes Num: [id number] Spec Type: Surgical Subm Dr: Shun Hill MD Tissues: A Colon Biopsy (SURVEILLANCE BX) Procedures: Deepti CHILEL/Pierce L4 Age/ Patient Sex Location Account Attending Physician Laura Alves 37/F [id number] Shun Hill MD SPEC NUM: [id number] RECD: 03/15/23 STATUS: BUSTER FUENTES NUM: [id number] SUMIT: 03/15/23 DR: Shun Hill MD ENTERED: 03/15/[address]: SPEC TYPE: Surgical DEPT: S ORDERED: [...] The microscopic examination confirms the diagnosis. Specimen: [id number] Received: 03/15/23 Status: BUSTER Fuentes Num: [id number] Spec Type: Surgical Subm Dr: Shun Hill MD Tissues: A Colon Biopsy (SURVEILLANCE BX) Procedures: HE/2, Gross/Micro L4 Patient: Laura Alves [id number] (Continued) Specimen: [id number] Received: 03/15/23 (Continued) Signed (signatur e on file) Winston Donis MD 03/16/23 1737 Specimen: [id number] Received: 03/15/23 Status: BUSTER Alfredo Num: [id number] Spec Type: Surgical Subm Dr: Shun Hill MD Tissues: A Colon Biopsy (SURVEILLANCE BX) Procedures: HE/2, Gross/Micro L4 Patient: Laura Alves [id number] (Continued) Specimen: [id number] Received: 03/15/23 (Continued) CPT Codes 65921 Specimen: [id number] Received: 03/15/23 Status: BUSTER Fuentes Num: [id number] Spec Type: Surgical Subm Dr: Shun Hill MD Tissues: A Colon Biopsy (SURVEILLANCE BX) Procedures: Deepti CHILEL/Pierce L4 Patient: Laura Alves [id number] (Continued) Signed (signatur e on file) Winston Donis MD 03/16/23 7088 [facility] SARS-CoV-2 (COVID-19) RNA NA A+probe Ql (Resp)on 01-16-2023 SARS-CoV-2 (COVID-19) RNA GEORGE+probe Ql (Unsp spec) Positive [employer] Other HIV 1&2 AB/AG Screen (P24 AG )on 12-13-2022 HIV 1&2 AB/AG Non-Reactive [facility] Hepatitis B surface antigeno n 12-13-2022 Hepatitis B Surface Antigen Negative [facility] No Panel InformationOrdered By: Rae Agudelo on 12-13-2022 [facility] Rubella IGG immune statuson 12-13-2022 Rubella immune IgG <0.90 NON IMMUNE [facility] Syphilis Total(Unknown Syphi lis Status)Ordered By: Rae Agudelo on 12-13-2022 Syphilis Non-Reactive [facility] COVID Quick Testingon 2022 Result Negative [employer] Other COVID Quick Testingon 2022 Result Negative [employer] Other COVID Quick Testingon 2022 Result Negative [employer] Other COVID Quick Testingon 2021 Result Negative [employer] Other Consent for Treatmenton 05-21 Consent for Treatment [id number] 318#1.00CD:127 Normal [facility] Coding Summary.on 05-28-2021 Coding Summary. CD:[id number] BJr5tCv+PGhlYWQ+PE1 QUBNkO97yaSDylY4QM5 bYQR3UGIXXQLTMUJ9EM F0lqMM0KHkjJ7KiaqBm KjqzbXHdKN96FGb9FKH 1qLtuTKkyqO7veSNzC0 c0JdHkMR82wS13CAfmB ZPnOaP2FpFblopopXSo P4dwSkTgxNDhJiz+PHR hYmxlIHdpZHRoPScxMD FuQoNbgGooGU8xZa6rM GVyLWNvbGxhcHNlOiBj u7icNRFwLPiuRE2otWm sQ6EjaKJ6LAQyn9x2Kz 48dHI+PPUrFNU7xOlnJ Azuu716GeAjs8yaBEW0 sNTbPBamCIA8O33fa0D 2HBVeIEQjGFA1dGY2aI 2qsJciguyuG5ZqcOXmH zC5BBU9qORvvV6hkFfu ckyphL2qMiv+N91YFN9 KZOPANR0ONqm1M1RnIl wvdHI+HL19SYDaFE73e TUrfRRvc9mcjWk5TbUv MOPhEEF5yYajEMsuj1B fPXUgG19agTQcw9J1AP TfqUuxcGTvDgYwtZF9x E1lRKsswvbzq9ynhrew Nwgfo4kdkm09zG57P34 qCIugJKDbPWX7DFOvKF GliCmlro1rvC4sNu1+I Cpyd5vyq0irkJs4ZkXf ZHXzqdFqiGerSZL1r3T mGm18Y5IblWnau6CeCm o6ps49kARgi6O5vDE8J HuxUWFscF6fMOydSsZ4 HCApFlPjmX19cSBeKOu vXw5baVbpqQklAZ8yYL OtglbgVHNkmO3ePFLqv FQyaJcvNY6vGFBusgfm x939PkVbNXB1ZNVgwUA qM9BsaW2hDmBwUWDlZY FuV7PdwVNcIJauY284J JmrOcG2XFIiljJjC9Rk QJVekHeeQxT8e9T2Pz3 Gs0YikzuxJBE3JOccPF CpSrK5IsIsGwL1C1McN xi7JCTdrUsmRF4sM8Zq EUSwzinndqjtcFH8EGH oMBQxyN53cRWuKGhcPp 6fc5X9j356LUAkTPQvm K61Tv9atSelIDMhzDDR mL5ebbnuy9aafdxlYnH sXDMbQMx5PYl0NCCaxU dqJzSuPED7LuW2NNX0w PAobV4ksMkctnikeU3i Oyc+K98nzX8xYKA5JKT 7qsqpDZNoavWjWZ88AR 56W6FdFcvtuTAuyKQ+P CKmcnAreHxyPW9oDmTw e1kjg2BeSLfqZ4VaREE tUZddDvu0SGDfFPP6iZ W7oR2tANJpLXekt7N8m FH1A3IpzyVmax8kl3th JKVkIQpaK79wfTObf3M 2ARKraVP6WYJgdAphVx VjuS35Clw+PGNvbGdyb 2FqXpwow6hef6lltBp8 IjMwJSIgdmFsaWduPSJ 6t1HaZn12F50cSZgwEC RoPSIxNSUiIHZhbGlnb u7znK1wRz8+PGNvbCB3 nLM0lU6jHRIsGjL3CZj bD360IfYokNVzNrdid3 pzr7fpqXf5DrWyBBBvo fQfoAxtRFZ0g5KnKy26 Q01hJBsiOSBmJAXdCUJ gQWKhhWhhgx7zyL9hLy 8+CO0tn0ddlh77dN80f HI+EIEyPDO8iKvtFZdr UWSdmX6dMZemBvT9ZVJ pVsFlaN35cTAdDArkEv 4hsPjkvPdeFC9vKEShd vhsk093YaOnb6fuIJEc cQNoDOtsWYF1U61hy8H 3DZMzJJYoZAN5iEG2fB 1hbGlnbjogbGVmdDsgd oDoiOrvRTyuKYbyJ661 IHRvcDsnPlBhdGllbnQ oKwEoPVs6O9MmXrx3DR RpcMfqIV7fjJNbHFmdA c3xlFoqnFaxUS9cLOJq yejgg793PcSfz5ppLMI usYEfNPkmOML1D43ue9 E1EJGoQACbMZR3wQK0h Z3tdNdwitihgWIusHmr zjSzgNmiMTeoRKtfK02 6IHRvcDsnPkJpcnRoIE SibEI0AJ65NV13cCJxp 8T0aFW4Q1YbDRFyszjo vutcwUH4FGUdGLKwfN3 6Zh1bjIjuUp9rJHIbOG U7UQXkjYUoV3MbeH3eE qHtDCFvSKJuT5RgiQSc FTcnA759VCeiVuX6GGY staCpC6JuDJVanHydXs G8z3B6Dl1WS2X4VP04O S50wUCzt0R7jYS0B6Xw XMAgvvhfzxcuwDH2PSR yECEblD21Sv6xsJqqTo 1uPACeISJ8AISiqFTwG 1PakP2tNjCnNXLeSPMg U9WtfFXqYHkaG996XWp kUrL0RLUdjaKgJ0DuPX AfaFqbCjD5l7W7Ob0LC Oc7FZ00WN69aUUdf4V6 hBN5U0JzXXMtaseeqhi ryQO5LJXxSJEghY64Lu 8pbXqlUw2sTUZfAFI5T AGzyGHbO9NsoH3xQdMp ABKwHPYhF5GneTGlKDs lH252FJcpUqS8ZJIwuu DuJ2ZdFSXmeEwrXfZ6z 2E8Wl4BQJTwHN27JDG1 cPE1EM00DT34L4HzUyi vdGFibGU+PHRhYmxlIH dpZHRoPScxMDAlJyBzd GamYF6gCk0oJDRnREWu wJnmyOMtJoQkq6suFLX oBPboPL4xrOuiC0BgcS C9MQWvm1d5Li58O59zP 3JvdXA+YGMclFA8lOS7 jX9aLySiHeW6CFbrI53 8CgYupAJoIimyj4pfr7 cozLx5XbV7FJNscsLzk MieHSF2h0BoGm29U99n IHdpZHRoPSIxNSUiIHZ dnDonrr4zuK8dCt0+PG MkdRS3qJA9aA7aEfPeA zZ5ZZxiB595TpWavWHd Xsvpr8jrs1ooaXe2DsS tYWPmddOwkOzjXXI8u7 EhLr19I8TxsNrwq3AuV we2ju03aMViq1X7xIF2 E6NfMABqijilaNMctKg nDF6hOXEfgygyTTVidV 9rWPAiC9s7HsJlLoS5V CraS2SxsoS9RWEojOWf JQzkXCJ4C80aw9V2CMW nCKHlQPZ9mCK7wF9yrP lnbjogbGVmdDsgdmVyd LtqJHqcKDwrB536VNBq gShdKHLbhY7qRVTjxVO whGlyIL1aYRDlgmlqPz xEVW8SHJRUMwjrPIkVD PSMOTFSPZ26JZ96tMGp q7C8pER8X0AkSEIbojx rnghujYT2QXPnEPUtwE 42sWOlUNqnBu1ix3G4h 968GLWwRXUzvF92Nj6e fXxlPLOhuYGBdI7bihn el8yqkvsjGfBkUWMvDZ q5JFd2LHDeqSseFaFhQ CO9SpX7JRQ4sLHeqK2u kBszbjdtlL2nTnn+MTI bQTgaWSr9JMejoGW+PH AwWST3aSykLYkeHTIas S1wXSCkG3j4QdJuRnV7 GBxmN8YwUHBimuksKf1 3bT9yPeDpFdZ6UMasI8 KrmaH9VYTvzTKvAEcrF VN4K97px2L7WVDyXGCf ILZ7vED8rY5mfQjfdtu gbGVmdDsgdmVydGljYW woRFtmG423NUIyaJbtN qB3SVgrKYYzMD99UG36 lNPhw8H7vGU3I3XgTRU qsjswxdqudJB6VGZlFR UsqD50vBBdARpiAd0wd 5Z2e300BGGzFQSfeP21 Zr0wyCjbGIMgyKZXfQ0 pkabhh7yrlvieZbTiNW ZuVJx5XLs1KQQnsIlmW mOpCRK7UuW8SWI2kXJf sI7vyUhdphadxH8nZxq +XsGiEAapIL90JF09gC Knv1A0pQW9N5AdVCXhb wvpkkkyuBJ3CUWxUTUb gI19oWTaFMfkCk5ko8I 1f371RZMoSNWkrW69Gl 8cuHciJXRfbWTXnK2eo pexk1fjgwluTtMzPFVo CKw2NWr4VVJkoGizNlO yZVX6FuA5MQS8aNVwaM 7ctFbozalcdW5pYgf+U rIybLUsbW7dXP54JV33 M2GtQxassABzrEV+PHR hYmxlIHdpZHRoPScxMD BrJiXxkRhiMG3zKx4jR GVyLWNvbGxhcHNlOiBj k9jeHTXuOCidZR0tdSk cL2DltCT7PBFgq1k4Wo 08W72hZ8YetTC+PGNvb HQ1jFC0nO6bNwGqWeO9 OWenZ592NuPdzKPoKsu mj8bxs0kfgCk2DgDnYK VvpeCsbJepFKR0v5TfE h46H57tQNvfWXJiBRZh GFQbZKPhyZohts8klP8 wIi8+ZTEqyOO2bYE1yN 0mVaRlOdL4IIbhR910J aPrsEHgLygoP98rF4Xp dXA+YMZpTwr5KTLcwSv nMI2xzKMfLGkmTh5sCI G6TaQdUxZoJFfsC1BnG NBvwvarvuzxjRX9KAVs HTFzqK09Aa0scVvfEw6 bRJTvVSB2UOYixEOrU4 DykT0uYnRfVDAjEWTlG 6FpxTTyDEjkX451MKto NjD4ERNksxMpF3YvMAK eqOsvEiS0k6J5Pg5WeY zpiGGeZS2bCsFsBSj8L 5NjYzm1WRMgtVzbCP3u yNPkYCdcKl0kuLpttTf iMT7sHILqpgskr742Bo Sod5ydLWKdxDVbRNxsX EK1X76cw0T3PDRaUTMr ZWY4aJD8lF1vcMomqab gbGVmdDsgdmVydGljYW xuMUpnR004OMGslZgyT zIWBvk0K2MtAcy7WFBb rUlmXD9zjHVfJNrcLw8 etQdvsEgfOD3zJEAcew rmm210LdShl6diZYPke CFtPBwoWPL1N41vu9P8 KCNoYLVcBXE3eHJ2mT2 hbGlnbjogbGVmdDsgdm GceGwcVWnaZVrjB368W BMmvJpuLs3YBos9W3Xf Qbd7HIOfhRsiNJ5saTL cANntCu4nzIujxFirOK 5wQZOziowsa080WrBcz 0tyTDHzrNHtDOexESQ2 F27dx6E0ISTzSMGsIUN 3bUC0sR1ddAmkxuycvF VmdDsgdmVydGljYWwtY ElbU410QIZisQfnJlVz eWVyOjwvdGQ+VZ79hj5 2B3AdLamjLba8GMNwZU N0fOM4lD8qETFfDJeim 7W9cGO1W2IcsvKxvx7m b2xs (more content not included)... Normal [facility] Priority Order-Juan 2021 Priority Order-STAT Comment Invalid Interpretation Code [facility] Comment on above: Result Comment: Rece ived Performed at: [facility] [address] [facility], [place] [id number] MDPhD Mina Jones Performed By: #### S ARS-CoV-2, GEORGE, [id number] #### [facility] [address] [place] [address] SARS-CoV-2, NAAon 05-25-2021 SARS-CoV-2 (COVID-19) RNA GEORGE+probe Ql (Resp) Not detected Invalid Interpretation Code Not Detected [facility] Comment on above: Result Comment: This nucleic acid amplification test was developed and its performance characteristics determined by [employer]. Nucleic acid amplification tests include RT-PCR and [...] detected) result in this assay. Performed at: [address] [id number] PhD Shalom Gonzalez Performed By: #### S ARS-CoV-2, GEORGE, [id number] #### [facility] [address] [place] [address] Family Medicine Phone Visit - Telehealthon 05-22-2021 [...] 6 months ago. Has been using DayQuil [id number] with moderate improvement. Review of Systems Fatigue: [...] only communication with the patient located at [address] [place] [phone], with no one else. If it is [...] Patient verbalized understanding Ordered: Rapid COVID Antigen ([facility]) Telephone Est 5 to 10 minutes [id number] 2. Fatigue (R53.83: Other fatigue) see above plan, rule out covid. Ordered: Rapid COVID Antigen ([facility]) Telephone Est 5 to 10 minutes 10499 3. BMI 27.0-27.9,adult (Z68.27: Body mass index [...] 1035F Telephone Est 5 to 10 minutes 77259 Follow-up With When Contact Information Irma Burt [...] Methamphetamines, Pre (more content not included)... Normal [facility] Comment on above: Result Comment: Elec [...] height. This can be done either in [place] ([place] or metric measurements. Note that charts are available to help you find your BMI quickly and easily without having to do these calculations yourself. To calculate your BMI in [place] ([place] measurements, your health care provider will: [...] problems. ? BMI can be measured using Australian measurements or metric measurements. ? To interpret [...] 01/16/2005 Document Revised: 04/19/2018 Document Reviewed: 03/20/2018 [employer] Patient Education ? 2019 [employer] [facility] Physician Orderon 04-27-2021 Physician Order [id number] 8#1.00CD:127 Normal [facility] Coding Summary.on 11-04-2020 Coding Summary. CD:[id number] VJv8yNo+PGhlYWQ+PE1 TWFGaK18laAYqiF3YJ5 bCDE4MIBXYTWRVWI7NZ D4ycPA8ATptU1WwwqLo ExgtfLDnRY08GNc3UJK 2vYziKVvaoL6tpSPxM1 r5UuJlFJ66pZ62YMbqY TVaEgT8HuWwwgsvcYAa M2ylZeIaaBChRfo+PHR hYmxlIHdpZHRoPScxMD QuJrFokZkyKR0zYo5pM GVyLWNvbGxhcHNlOiBj q2szBYTxFPewAS0bxXg sF9FvcUX1JGPvb7p8Oc 48dHI+OWWbJOC4jKzuD Ifnj310VnKrv2dnNWT6 tIZmRQdhSSV6I05tg6O 0AXIlACWuEXP9qTD8kN 3idReblmesE8TwcDItK bB1OTE6oLTbrG8mhLhm znfpsK3lKor+T02KDD6 AORREMS9RMyr7S5JaEn wvdHI+MK51YFTkAJ71u VSbaRExb0nzlNb8LjUb TTDcIYH8wYqwQQcaf6Z qUKEbY47lqRDjk8O8AY JamUbzjUWcQpPpaHP5c D3xRCwjkhjyr3xnzxtw Wmxjg5ilqk48xO18Y72 jJPwtPMBlNZN3GGIfJD UrwLidmm7pcC7kNo2+I Vtel4fod9erpBr5XjFq TMTgjoJdqJsxGUS2m4S eFs33B2KgcHbpz5MqYi u2af88gYUea1Q9bUR9D TttGOHowU8yXIcpLjP2 YWLtHaNnqZ27nMZeJPe vUn7wsRcutMlzVL2pGM UhocgrCYXyhG4vIFEpl EDiuRhzDX7mOPNsyqxn u361PlThPJB4GPVlaAN fH0XedK6pZiMvUWYqUB OuJ7SliCFuTRiiN474P EdeLyZ5HGXxilRnL9Vz SSFgrJdtZzQ6c2T0Cd8 Bu1QgkqlaUBP0DOcwOT L6IgL7FyHtFcX6Y7LvE zj0TBUdaHktTJ8iR9Wv RAUjmckgtraoqYP2MQK hPCMbcP47pFQgPEedZo 2pu5C8v384WRCfULVdj R31Of9qaPvmXHUatXNZ cB5qeoiak2vgfdfwYeG eIMYnKXi8UUj4BODteW cgJsRzMWT2PzP9VMN6z KOhrE0oiAarajjefT3x Oyc+Z21xvP7nWOL8ZZD 1xdhrBKRgzlTxYO28JV 00S3AnOhitaGZmuQI+P VOonuMyrGtrRM8cTeEw f7yle6ZpQCtsD2EhQKX qXPghKwj9JLNjEAN7sH Y5mK6gIKBpEUbll9O4p QK1Q7OkunMgyg2se3bn HVBcSInfW93ktEDte7K 7CAXxmYC3PWFdqOroXa IjhK36Ssg+PGNvbGdyb 7YyEadyp7fuz8qupDh9 IjMwJSIgdmFsaWduPSJ 5o1EfIl22J11fBGdlKD RoPSIxNSUiIHZhbGlnb v7tyO6lNf1+PGNvbCB3 eYT5lH5zEJHqYvG5HBd mE921YpYiySJpGyxkg8 qqs2etiWv4VrEhOFMxj mXpxDlzULS4z5VaGi27 K45lBVplQGDzSLNsEGK gZRBjdAjmrk7rgE4kOq 8+TY8da4cdvv18sX21q HI+GOMbLPX9vXnmOAdl KVRusQ4bTVnaMqH8SND eLcHwtA06cUYiLVtdTd 1ypSmacXcpIN9aVFFoc buxn167MkMzy4jrDMMr iGMwOXicFJR4I99wi5K 1XIGaUXSpNLA4sVC1uD 1hbGlnbjogbGVmdDsgd sDadBwcKOrfCAuuF523 IHRvcDsnPlBhdGllbnQ kStPxQXs6H6JqPdi1XY RwiHqrUV7ydAYjGSehT t6lkFnouVxdBX9aSHHs nuvjp396VfXnl5qpRLS qrGVqAIckOOW3C10cl1 S2NQWmJLSxRBI3kUJ7u X3kxThthlndfZKhqKro ohUvxQvmATexNWhyT31 6IHRvcDsnPkJpcnRoIE RkgQE0DX94PA52jJYrs 5L5hEP3W9RgIXVuwqzh nwzwxVT8TKYvPWVjbZ4 1Bf9sjVvvDy4fJTToUX T6OYMpsDJcS6EnmO9gW aTxAIAxKPTpV4EyoTWh ZXucJ456UXsrFdE2JKR fyaEhF5FhYPXvzNkaFa R6x1W9Yd3LT1Z8LS65S W79dZSra0B7sHR2R8Bu CHKmwnyqetgnhOP4VKG eVFEckQ03Ty5lmWvwHv 4dUHSlBCO6BXCgbHKdK 7HpxJ6fFoBrLBGqKXYi Z5CtnNJfSMcoG618SKy yGrR6KEAjssSqU4DcGF JsgLihHfM9x2B5Ra7UH Ut8QS28JB46gDJfp6Z8 gQO4W8LyQFItfzjsjek aiLS5PLXhOTYidQ15Mk 9vrXucIx0eRZBgOLI2S JAfaYRrD6GpzR7cIwZa OUSvCAIzN9UpjTZhDJv tC568HPofWqQ9ALUwtf KyL3VdAVZsuGsuKzH6x 6X6Nx5QRFGpUI65GSG9 oSB8YK51MX27T8EsFbu vdGFibGU+PHRhYmxlIH dpZHRoPScxMDAlJyBzd RezPQ0cRk7jZDHoTSMc jPpqxBPwJuKuu8ikSXI yZPiyOE4klIdjD2LsgG Z5NLSsg5s0Oi47O50rC 3JvdXA+SZIdjMH9dWF8 oS4uEySvCxX2UTalU38 2NoOfzNYmZwjet3nuh2 vyeGf6OpT8EIBkvnElk JapPTJ4p2LiEa27T35r IHdpZHRoPSIxNSUiIHZ miRfxhm4olA3iEp1+PG GsePV1xPU0sP5pRlJnA gE0SVsaJ504NcSuuZNa Wcbir3yvi0ikhSo7RpZ oDDVwisHwrBghECB3s2 WkCu62T2QfkMjgc1FuI ol2xr99zXAfc9F6oIY7 O8XwKNLztufmvUSqrEc uVD3aHMKotuvsBBVaiC 3fULHlH7g5RbSxOdD6V ZlmJ1JefaU1OTFxaRIc KRozJMU5F32jy5T0WSU vDAHgCRH1vCL3oI6fjT lnbjogbGVmdDsgdmVyd MunHFxzAQskO301TDLi mRfhWEGukV2lLETjeYC hoZlxVJ9bRFQoqiumXh qDHE9HYSAGNuprLEpON NQJWQFYWE57RF62nUJr x4Q4tKK5L1KeKLIkejl kioihgIY6BNRlGIJgaG 51hSIrLJppEf3nb8D4h 258GUWcKLOzmC15Xo3f vCjfQKUypPFUtB4lixc th8bwdvqkUbFeGSPiUN b0GJu9EYOiqAnjNxKgW OK9CuF1ZCL7rOGmdV4i rPkmeujudZ6yHwl+MTI tQDzrNVi0AObmcJK+PH CmZUU9sVibRWndVQOqe I3rARCgH9j7HyOaEkW7 NWcwN2TvLWWlusspYh0 3gN2vDeAvGdK2CNihS7 YuszT1QZCrwXNwACouM ZQ4T89qo6A2WLGsLMDf DZU2kIW0tR9gaQpfqny gbGVmdDsgdmVydGljYW luVKvlU329AIEclFjjI hY3WNokJDRuBT29RC81 sQHdf3N6fPV5N8CcHOX azdoxubcryKX6VJVdPE IraG22zPUaEAtoZv6uq 7T3a157LCPtJGQfxZ43 Pf7kcNchWJIeeZJEjS8 ctfhjj0vaxwttEoMvMB NlVRr8MZf2JPCnpZmyK hMkCAY7YcB3ZKW2xCDl aR3axXxnsiurlJ3zUqx +IhYaHUktER23TW26oK Gaa9N3xKW4M6IwJEHlh ojnadrbzBS2ZQLiJMHm yZ74gURuRDruKf0js2M 1y690GZKiGWTkqA59Ln 4ysLahJBTusCELgI7ye zcmj6zlatftZiLkZINx VWa0WJs4QNPuhDmaUjK bJRJ3IaV2PFI9qATpbC 8fmJpucedeeG1aAin+T 9E6kTX5mLYrvKnvzXE+ ZK55bh43W6GqHuxhEea 2FDTwYFR7sCG8lA3mJJ FqRBwfp4G0oHX7O8Aem rGnmz0bc4fmAFRpCFfm G21vjDAgg8Z5HTSdwXA 8RZPexKcnBkThiD71Hv c+NFYzzTjso8RlXtfvx 5ywm4wxbKk5XuEzYONh ofDdxYlsIIN8i9RoHn5 9A73bRVlwFHMsKNUjFX JbHGFalXgpdx5etL9kI i8+QAPhaOH2tBJ4uT0i FdZzGnH8NWhoE774CtU lpVWcKqbxz0dtn3qusG j3OlVhBEFmeaHknNpmH RK9o6YvPx55N1WibBlq p2OvWzk3kd59oNTwj5T 4oRR9I0OaRPJtcoetcQ EmbStbWS1zHFYpwrllH ZNifX0hWIAzY9h1KuHg DxS7ILvvB2TnqyD9KPU vaZArBHZezBGMgA5fle kkt7ubvfgcCwZwURKgY Oq4OKt3BAIumBryCdOu USB3RlD2EXF9mVFdxR8 riXfswzvuhM3sTbn+UG i5k6ktyRZuNC5wbIV8M G02CS13jOYuo1L3cOY4 G1LnSDScremajtsqsKV 7RSUsRVAypR28En1amO xzTq6tRGOfOOA2YXZcw GRjI7NifQ4hPwBiLCPa SHGsE3ClnMDzJGvkI37 3ZKlhMzX9RIKumiTbT4 DkLKZsyKpaQtE7e9N9A q8XNF15GP22RS70cSOx e1F4oLF5C5QeKODfudq huzohjRJ6BXYnEHOnvT 50Uc4muLzmBf4xIUKjR MT9YHGzdMMvG9AeuJ3l SjNvFAHiJONlZ2VvzCU yGSqxI059FNbgMwO8PF JkatUgS7GlYPWfmYfpC uC5v8L9Db9BAx86IF46 GS98jMEnr4H0jRU0P9X xBXKbonagrdrolRD5AP PaMXQyoE98Fr8seDpvV f0mACToKZT4SLCvcEDb O0WyaE2wTgYuROZoBCW rN8OnbEUyDEfwE571FJ gsBuH4LYMlhyYcC9NbU YCitFomQkS6l6M3Zj5M VGqjuug8S1TqFdltrGP +BB79RWAuLA17uCSsnI Sol1yoqXf5PlKfDVMlZ XP9uXtwDZqyb5ZpLOVu Y29s (more content not included)... Normal [facility] CT Chest w/ Contraston 10-29 CT [...] 300 Contrast amount in ml's: 100 Normal [facility] Coding Summary.on 10-28-2020 Coding Summary. CD:[id number] BWi2kJp+PGhlYWQ+PE1 NVFAcJ15stSRnoJ4OI0 cIKL0ITZWBOYXPZG0NE Y6sjQS5USobT8OrhaNa QiuybPHeIP08GJa2UJS 4qSpeMRtadC4hiOYaJ3 x7CoWkBQ98uJ80XGjbO MUaDoC4WcNtdthgiEMi K8pkQuVjtZTzKxr+PHR hYmxlIHdpZHRoPScxMD NkOiZtcRrtLS9xOg1wT GVyLWNvbGxhcHNlOiBj h0lbFMVbNXtmNR7caTk rS2DfjIR7GCKtv5t4Ne 48dHI+SVNhRAV8tSvfA Kqod832DjBdi4fkEWT8 hPXeYEarQWH1A10tj4Z 2TKMfCFCwWPG0nPK8uC 5dqWoubsxwW8FpvAWiB tQ8VSU0jRJhsB8qxAkp bdfojE4wOnb+V55BRC7 LIHCCJA2JPks2V5UnMl wvdHI+TF85QXZgTX80w BHhuRSok1rrjJe3YiHf OSQhAJO8dHpzSAlaj4X xSQMuO21caLIzu5R0TT ZpyDeroZKdQqVlsKJ7r P2sBOlmvwuqm8vqysbz Qjvzh1wyxs49tD14R09 hKTdpNWGdMRN9IUZlPN XmwQkpmg6hxL9lMp9+I Nbvu7jjc3jmmAc2QsLt NFUnosJakNsgMLP7c0P dLd14C2CqtZswk8MwVa t4qr38mCWyz3H2sQM5I SwcULZhwD1oNJrdKjU1 FQOwUgYavC36dHPmWVq nYu1wsSmknCayES0mAU XzgncbCEZzyS4yKUVgz QYwsNqcCY9iDLRknnho v550XyQfAKD6FSQiqRU qH3UmhA0iQwLaHNCtXG KsC8SmzLMmWKnsK069K SjbFbK2HKTzypYoT7Vo HNYoeSjbPnD9p6C6Em4 Fa4YrbctiWUM8UAolRN O8GiLgSdSxHwF5E5HxM pm0SYWonMttBF6nT8Yi VNTboctefrzpjPA2RRK qCIEyxY45qIMbPQjgNj 8ii5Q6r776CITsGIYtt K39Sf1swSveVZWzjWJX uA7jwkwlt0qzxnzpMkY iTNGpFOu3SRn5AXJdpT twNkTdLCL8QwI4VMZ6s PSlzI0ylDureorkkV6l Oyc+N70cqR6jYIS4FKE 1xjgsYABxpvVtJB96JU 92M5SxJoepzJUmiJV+P PHdotCnlUcrGJ1tYbDh o6uva0EnCPdaD4KxHLB mVTkwQzo1RHKuTPF1aR T8gB7yBIVuPMwdr7C9p XL6P8MmbdTpem3vz9jc OZOlKKmnI58kyKExn0K 8DLAtvVQ2PHAshZgrAg CsjW34Ckg+PGNvbGdyb 9YwIxmxv4luy8tcxNn9 IjMwJSIgdmFsaWduPSJ 6p5McWu49X17wNQwvUV RoPSIxNSUiIHZhbGlnb s6atP4iXo5+PGNvbCB3 bRS2vW5eNXHmAvM1SNv sK896QoMqrEMfVitdh4 qtu8sdsFl8FhOsMUCzb eDqeZkqVQT9b3EgEe61 I34iSRhpNOPmKMNmYHX yHQQuuYmwrz0zqN2ePo 8+EX1kk3notu51wF22h HI+VWXcJDX9eFvpYAob XUAmkN3vAHszTaS3XJT nPeOvyW34mXXdAAfbNk 9kpMarwBcwBZ4qPGVeb soba486ErMzk9rvGXHp cLRbBPbuUIC7G82eh6K 9QBSiZSOwKNF5dNN8iS 1hbGlnbjogbGVmdDsgd bUmoHvwHNozQQqrK994 IHRvcDsnPlBhdGllbnQ eIjEmDJd5O1XcOfa6TV ExbZrnDB7baDWrTCmcC g8rqYpmdIukFE1oPIUk bxubb681WnUlc3zrCHV dwTCtRNxzLVD3W67ek8 T1WTFxZAFqCNV6aDF0n F7fuEgxcyhoqWQyrKjq kiWdkJczVTdjJPaqZ97 6IHRvcDsnPkJpcnRoIE DfjNH1IM89MJ34qBDle 2G0pLF1E8UmFBCdfavu gqukmIQ1NUNxQJSnqK1 7Ed9vtWddRa2pXMQdCV C5SCVejICaK9IoiL1vB dLoPRUnJBHxA9OpuRHz AMhkZ608HNkzYfP8JKQ miaDdW7CeOWEdqFdcKh L3h8E6Fm6RT4D7AT65I K71qCFbn4N0pOH4H5Ji UDWazzvfykfrgKV8JUF rVJIunV10Wd0koCjdKl 3rWPBqJEP5TRGanSFbR 2UseL6pFcKqDFTpGSPc A0VrsJWdUIlgE791RZc wVtH0FMQyocKqD3KjJF YnbHloSuB3q3D8Td8QO In5XE81LL84mRPij5Q7 dVF6S6ToYAKsozqnwcg lmWL6YCSgUZSpeU31Qo 2biIhkUb3dWUKcHQT9Z FHurXSaN5ThqB5xQeWz YTReFNCxP1OcoEWpIIv xJ193IKqjDtK9PSKugb QnT6ZkXPNtnZvoZdE5s 9C6Nx3DNQZwWP39JFI1 jEW4VV34KR90E6SaTmn vdGFibGU+PHRhYmxlIH dpZHRoPScxMDAlJyBzd LsvFB4mGh4jQNLySHRi xHxcmWOcFzTvq0lzABD eYUgbZV7pfDsnQ2YwlN S7JPPjx6g7Ol07H51dG 3JvdXA+LGOitDC9bAY2 wX3cXzGbCtN6BOshA05 4GfNauZOmXbjaf8jqn7 hoxBq5GtP8BXVxrxUqb YkcHUG2x4OxHi65G41l IHdpZHRoPSIxNSUiIHZ hsTbadp0zoA8zRr9+PG KngRQ4uKH1iV8mSoObB fF9CTeoZ073VtLdgWIe Rachh3vuc8xupEp3BoQ zLJHbztWncRijTEZ2m0 JqKi46Q9HvjIsvz6GlL yi4ih95qRYhm1Q5jEP9 G4GmTKWdttksqFUfrCv zDX9ePKQeqxexXGLzuT 5fEWZtX8j2BiOnKsB8H AwkC0HlkaO8LADufCBv IYvvRXI1W72xb4R4NKK eCRDzMJY1qYT3lZ1iuG lnbjogbGVmdDsgdmVyd SdzASekUMhkG998PJXt lOgtDHXubX7bDSAhxGQ rpHnnSO5yQJBqewoqLg bOSP9BLZYUHiuhZSyNZ GOZHSIBHN16SB95qRHw d6J2nWR0H7OkJJItlhh iyzvrlTY8OZYkADUqjX 60fFHnSDhgZg4kg3F1p 144KDXfAZRziN34Vd2y uNgeXZNcmUKXpW3vfna mz2ctwvmxRlCnUAAuZU b3JQj9YJCjuFzzHkQfV LW1BuI6VDJ4jJEmiU4c cOuyrhfkcY1uWtw+MTI tQRsbFOt2VBkaiLD+PH LrLUO7gHdzRFfoKEYyw R8gZIEuU8g7IyZpNfZ1 FWqkO2PuBCTwlcslFb4 8rR3jMwQkDeH8RGcmG7 IvjpZ4SFDsmYVmZMubV OM1D88ta5W3RYNoBFUk MQI5zXG0hY7lrPxvocc gbGVmdDsgdmVydGljYW sdRZtqV213MPKwmEvbF jL3OHecFVOaRE08KP21 pSHvl0O6vYE7S5KqCRM nwgagjkjrwSG1NMQqHY HnmD80gGXgPEdtNb9cf 2Y9w498IIFpXNKehI46 Xn7vaFazCRPteKMKxD6 suddox9icucnwSnDwYF RuEEx0YRj6WYHqhBmsA cRtBZH9DkX6YZB7xDCj sS9doOrwtumexU0xIfd +RiTeDApzZA73VS39dW Eru5D8kCQ0U9SdCXDfm xjwbfwlnFK4QPSpQJAe kJ28xDWzRScbEr1ko6G 5f243ZXYiERChjM60Gm 5iuYxxZSHsiRYNsI2sa yzhp1woqxjmJnZrAWBw LRi6WSu4EXGcvLkcYeC eOGM8JhA0AHT9bPZxdU 3kfYqdshockF4qUpw+T 5B3mDY4uQVhcVnlrJK+ MA11ki72O8TlTqwbQac 9UBOnPSN5sXY2jM7hFT MoOOpvz2G6lPZ7Y5Qya aKlhu6yv9euZFOqWQvi Q11izXKop8D4CHMnwKF 7TFLfwGjqDrRqsS02Zh c+TXEqgVjsg0DaAhgha 2qjg1axjAy9QxOgZECs qjZzkSgrTHI1k3FnWr3 3H67tWIxmONUjCUIjXH NwKGIxgPijha8htV5qI i8+OTRgdRZ4mUP3wZ8f GeMzOcS8JFzeJ189OpT ybFGoDvuoo6oko1uieX t5VjSkIPGovpAviTiuP JG3e6QxDv67W8BvoEwl f0EqNwi2fn73hFGnm9S 2dAI1S6JrOVZefxgohB TtcHaxJY7jLQGpathjV HRwwX0vLAMfB5a0VwHw PsU9CPqrG9NohtN6FAF jkAFuFUTpxHNRsW4qfu plk6dckziiWeSwGYSeV Sx0RFa8NYFnaXlbMwOc AWQ5PhQ9GVE7xOAqoQ4 cqKfrwxyibT9mQyl+UG m3j0uvlWKoVO7efIF6F D57VN17xTHei3U3sDS5 P8QmBEIoxpzjmjppfRO 9AZJcUOVkvK04Qk6kjB zbSf8pMYQxVDP4XNIbk BFjJ0OoiP0lRoMmVURn ZGOcH1DcbAUxQJzpF44 7GRgoOkR8ZPKoymIkX5 GcCOVnvYviRdG2u4U3W a6SYU68HQ84QR88yNVd j8Z4zAS4F1FlCXSjefm kvdayaEN1RQYdVOGtaZ 26Zk9mpGtbXa9vJNBaF QK5PKYikEXtM4CtbR3w EhLlJIIvADDlF7PefOA gWVgvS702SAscMoV0YK SakcCnV3DjAEJluCnvP tT5m5I5Rk8NZa96TY88 DF66aYVuo9X2kEW0H1N eTWNieaevubrmeIN5WF ExRRUojH24Vo6thYktO q1oSWRgYKC0PUQcfWRi A7XyiQ3wFkXpGQNwJMJ dH3UsfRZdMGumT442TU dmNbG4VRXwjmRaB3AvE ULthOgnAdG6v1S0Wh3S DUgfypf0J3UtCmcamSR +KR32YLFxAR08rEAytK Fdg0vayRt6SyHeJELcO IB1yNyaXMjju6UwAWUn Y29s (more content not included)... [facility] Consent for Treatmenton Consent for Treatment [id number] 44#1.00CD:127 [facility] Physician Orderon 10-21-2020 Physician Order [id number] B8#1.00CD:127 [facility] Consent for Treatmenton Consent for Treatment [id number] B4#1.00CD:127 [facility] Physician Orderon 10-19-2020 Physician Order [id number] 446#1.00CD:127 [facility] XR [...] Transcribed by: SHAYNA Technologist: BECKI [facility] Social History Date Type Detail Facility Start: 06-30-2020 End: 07-26-2023 Sex Assigned At [facility] Start: 07-26-2023 Alcohol intake Current drinke r of alcohol (finding) [facility] Start: 06-30-2020 End: 07-26-2023 History of Social function [facility] Start: 05-04-2023 [facility] Start: 03-15-2023 End: 03-15-2023 Tobacco smoking status HIIS Ex-smoker (finding) [facility] Start: 11-17-2020 Tobacco smoking stat us HIIS Smokes tobacco daily [facility] Start: 11-17-2020 Tobacco use and exposure Smokeless tobacco non-user [facility] Start: 11-17-2020 Alcohol Comment social [facility] Start: 1985 Sex Assigned At Female F [facility] Start: 1985 Sex Assigned At Not on file P [facility] History of tobacco use Tobacco U se Types Packs/Day Years Used Date Smoking Tobacco: Every Day Vaping/E-cigarettes Smokeless Tobacco: Never [facility] Childcare Unknown [facility] Vital Signs Date Time Vital Sign Value Performing Clinician Facility 07-26-2023 11:27-0500 Body height 170.2 cm Kaitlyn Jasso MD Work Phone: [facility] 06-12-2023 13:00-0500 Body height 170.18 cm Shun Hill Other [employer] Other 06-12-2023 13:00-0500 Body mass index (BMI) [Ratio] 35.24 kg/m2 [facility] Other [employer] Other 06-12-2023 13:00-0500 Body weight 102.06 kg [facility] Other [employer] Other 03-15-2023 12:29-0400 Diastolic blood pressure 89 mm[Hg] DO Irma Burt Work Phone: [facility] 03-15-2023 12:29-0400 Heart rate 70 /min DO Irma Burt Work Phone: [facility] 03-15-2023 12:29-0400 Respiratory rate 16 /min DO Irma Burt Work Phone: [facility] 03-15-2023 12:29-0400 SaO2% (BldA) [Mass fraction] 100 % DO Irma Brut Work Phone: [facility] 03-15-2023 12:29-0400 Systolic blood pressure 132 mm[Hg] DO Irma Burt Work Phone: [facility] 03-15-2023 08:54-0400 Body height 170.18 cm DO Irma Burt Work Phone: [facility] 03-15-2023 08:54-0400 Body weight 90.71 kg DO Irma Burt Work Phone: [facility] 02-08-2023 14:45-0400 Body height 170.18 cm Shun Hill Other [employer] [facility] [employer] Other 02-08-2023 14:45-0400 Body mass index (BMI) [Ratio] 34.92 kg/m2 [facility] Other [employer] Other 02-08-2023 14:45-0400 Body weight 101.15 kg [facility] Other [employer] Other 02-08-2023 14:45-0400 Diastolic blood pressure 80 mm[Hg] [facility] Other [employer] Other 02-08-2023 14:45-0400 Systolic blood pressure 131 mm[Hg] Shun Hill Other [employer] Other 01-16-2023 10:35-0400 Body height 170.18 cm Aydee Nadiya Other [employer] Other 01-16-2023 10:35-0400 Body mass index (BMI) [Ratio] 35.2 kg/m2 Aydee Nadiya Other [employer] Other 01-16-2023 10:35-0400 Body temperature 98.3 [degF] Aydee Nadiya Other [employer] Other 01-16-2023 10:35-0400 Body weight 101.97 kg Aydee Nadiya Other [employer] Other 01-16-2023 10:35-0400 Diastolic blood pressure 66 mm[Hg] Aydee Vaughnmond Other [employer] Other 01-16-2023 10:35-0400 Respiratory rate 18 /min Aydee Vaughnmond Other [employer] Other 01-16-2023 10:35-0400 SaO2% (BldA) [Mass fraction] 98 % Aydee Vaughnmond Other [employer] Other 01-16-2023 10:35-0400 Systolic blood pressure 105 mm[Hg] Aydee Nadiya Other [employer] Other 09-23-2022 10:45-0400 Body height 170.18 cm Aydee Nadiya Other [employer] Other 09-23-2022 10:45-0400 Body mass index (BMI) [Ratio] 35.13 kg/m2 Aydee Nadiya Other [employer] Other 09-23-2022 10:45-0400 Body temperature 99.2 [degF] Aydee Nadiya Other [employer] Other 09-23-2022 10:45-0400 Body weight 101.74 kg Aydee Nadiya Other [employer] Other 09-23-2022 10:45-0400 Diastolic blood pressure 80 mm[Hg] Aydee Nadiya Other [employer] Other 09-23-2022 10:45-0400 Respiratory rate 18 /min Aydee Nadiya Other [employer] Other 09-23-2022 10:45-0400 SaO2% (BldA) [Mass fraction] 98 % Aydee Nadiya Other [employer] Other 09-23-2022 10:45-0400 Systolic blood pressure 125 mm[Hg] Aydee Nadiya Other [employer] Other 09-04-2022 11:20-0400 Body height 170.18 cm Aydee Nadiya Other [employer] Other 09-04-2022 11:20-0400 Body mass index (BMI) [Ratio] 31.32 kg/m2 Aydee Nadiya Other [employer] Other 09-04-2022 11:20-0400 Body temperature 97.8 [degF] Aydee Nadiya Other [employer] Other 09-04-2022 11:20-0400 Body weight 90.72 kg Aydee Nadiya Other [employer] Other 09-04-2022 11:20-0400 Respiratory rate 18 /min Aydee Hearn Other [employer] Other 09-04-2022 11:20-0400 SaO2% (BldA) [Mass fraction] 99 % Aydee Hearn Other [employer] Other Clinical Notes 02-03-2022 to 08-31-2023 Note Date [...] Mayelin Pinto DO on 08/31/2023 11:23 AM [facility] 06-12-2023 Evaluation note Encounter Date Diagnosis Assessment Notes May, Diarrhea (ICD-10 - R19.7) Patient reports that she is about 7-8 weeks gestational Patient reports improvement on Creon with occasional flare Patient reports that she is taking a fiber supplement May, Fatty liver (ICD-10 - K76.0) Patient did have a FibroScan that indicates fatty liver and minimal scaring, this will be reviewed [employer] Other 11-17-2023 Evaluation note* Encounter Date Diagnosis Assessment Notes Treatment Notes Treatment Clinical Notes Mar, Exocrine pancreatic insufficiency (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) [employer] Other 10-31-2023 Evaluation note* Encounter Date Diagnosis Assessment Notes Treatment Notes Treatment Clinical Notes Feb, Alternating constipation and diarrhea (ICD-10 - R19.8) Feb, Fecal urgency (ICD-10 - R15.2) [employer] Other 10-30-2023 Evaluation note* Encounter Date Diagnosis Assessment Notes Treatment Notes Treatment Clinical Notes Feb, Alternating constipation and diarrhea (ICD-10 - R19.8) [employer] [facility] Encounter Date Diagnosis Assessment Notes Treatment Notes Treatment Clinical Notes Feb, Alternating constipation and diarrhea (ICD-10 - R19.8) [employer] Other 09-21-2023 Evaluation note* Encounter Date Diagnosis Assessment Notes Treatment Notes Treatment Clinical Notes Jan, Alternating constipation and diarrhea (ICD-10 - R19.8) WORSENING DIARRHEA AND CONSTIPATION OVER THE PAST YEAR. DOES HAVE SOME NOCTURNAL AWAKENINGS WITH THE DIARRHEA. CAN GO 4-5 DAYS WITH OUT A BOWEL MOVEMENT WHEN SHE IS CONSTIPATED. WILL ORDER IBS WORK UP WILL PROCEED WITH COLONOSCOPY [employer] Other 08-29-2023 Evaluation note* Encounter Date Diagnosis [...] no improvement in 2 to 3 days [employer] Other 2023 Evaluation note* Encounter Date Diagnosis [...] no improvement in 2 to 3 days [employer] Other 04-17-2023 Evaluation note* Encounter Date Diagnosis Assessment Notes Treatment Notes Treatment Clinical Notes Aug, Contact with and (suspected) exposure to other viral communicable diseases (ICD-10 - Z20.828) [employer] Other 02-22-2023 Evaluation note* Encounter Date Diagnosis Assessment Notes Treatment Notes Treatment Clinical Notes Jun, Contact with and (suspected) exposure to covid-19 (ICD-10 - Z20.822) [employer] Other 02-17-2023 Evaluation note* Encounter Date Diagnosis Assessment Notes Treatment Notes Treatment Clinical Notes Jun, Preoperative clearance (ICD-10 - Z01.818) [employer] Other 09-16-2022 Evaluation note* Encounter Date Diagnosis Assessment Notes Treatment Notes Treatment Clinical Notes Jan, Contact with and (suspected) exposure to covid-19 (ICD-10 - Z20.822) [employer] Other Evaluation note* Diagnosis Onset Date Resolution Status Diarrhea acute [facility] Work Phone: Evaluation noteNo InformationNort Pay-Me Other History general Narrative - Reported* Type Description Date Medical History ANXIETY AND DEPRESSION [employer] Other Hospital Discharge instructions Additional Instructions DISCHARGE [...] if you have any problems. -Office number [phone] Work Phone: InstructionsNot on filedocumented in this encounter [facility] [place] SystemReason for visit NarrativeRED EQUINOX, ANTIGEN PROCEDURE TESTNoEUROBOX Other Reason for visit NarrativeNEEDSNEGATIVE, RAPID COVID TEST FOR PROCEDUREEUROBOX Other Summary Purpose Family History No Family [...] content) DATE CREATED AUTHOR 08/24/2021 [facility] DATE CREATED AUTHOR AUTHOR'S ORGANIZ ATION 05/09/2023 [facility] DATE CREATED AUTHOR AUTHOR'S ORGANIZ ATION 09/22/2023 [facility] DATE CREATED AUTHOR AUTHOR'S ORGANIZ ATION 12/06/2023 [facility] DATE CREATED AUTHOR AUTHOR'S ORGANIZ ATION 12/21/2023 [facility] EPIC REASON FOR VISIT [...] Active Shun Hill MD 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 [facility]. provides no warranty or guarantee of the accuracy or completeness of information in this document.
--- NOTE | 2023-12-24 13:54 | US_ITS ---
[address] [address] Patient Name: GONZÁLEZ LOMELI MRN: [id number] date: 1985 Sex: F Assigned Patient Location: [facility] Current Patient Location: [facility] Accession/Order Number: [id number] Exam Date: 12/24/2023 14:00 Report Date: 12/24/2023 14:51 At the request of: SAGAR BUTLER Procedure: US OB BPP w non-stress EXAMINATION: US OB BPP w non-stress HISTORY:Multigravida of advanced maternal age COMPARISON: Ultrasound OB biophysical 12/17/2023 TECHNIQUE: Ultrasound biophysical profile was performed in the radiology department. BREATHING MOVEMENTS: 2 GROSS BODY MOVEMENTS: 2 TONE: 2 QUALITATIVE AMNIOTIC FLUID VOLUME: 2 PRESENTATION: CEPHALIC HEART RATE: 138.46 bpm AMNIOTIC FLUID VOLUME: 28.10 cm (95th percentile is 24.9 cm) GESTATIONAL AGE: 35 weeks 3 days US/US OB BPP w non-stress IMPRESSION: 1. Total biophysical profile score: 8 2.Knotted umbilical cord. Patent blood flow. Electronically authenticated by: SHIMA PARRA Date: 12/24/2023 14:51
[2023-12-24 14:18] VITALS: BP 121/75; PULSE 103; TEMP 36.3
== END 2023-12-24 15:28 | disposition home or self-care (01) ==
LOC: US 07:02 → FBC 13:50
PROVIDERS: Visit Provider Obstetrics & Gynecology
DX: O09.523 Supervision of elderly multigravida, third trimester (principal); Z3A.35 35 weeks gestation of pregnancy
CPT/HCPCS: 76818

== ENCOUNTER 2023-12-26 13:59 | Outpatient (OUT) | payer OTHER, SELFPAY ==
[2023-12-26 14:13] VITALS: BP 143/84; PULSE 111
== END 2023-12-26 15:16 | disposition home or self-care (01) ==
LOC: FBCO 14:00 → FBC 14:01
PROVIDERS: Visit Provider Obstetrics & Gynecology
DX: O09.529 Supervision of elderly multigravida, unspecified trimester (principal)
CPT/HCPCS: 59025

== ENCOUNTER 2023-12-28 07:03 | Outpatient (OUT) | payer OTHER, SELFPAY ==
--- OUTSIDE RECORDS SUMMARY | 2023-12-28 07:05 | XMS_ITS | CCD ---
Author Organization [facility] Inform ion Partnership [facility] Care Team Providers Care Tow Picker Name Role Phone Maria Guadalupe Powers Unavailable NadiyaAydee anderson Unavailable Perla Márquez Unavailable Shun Hill Unavailable MD Shun Hill Attending Provider DO Irma Burt Primary Care Provider [phone] MD Shun Hill Attending Provider DO Irma Burt Primary Care Provider [phone] Shun Hill Admitting Unavailabl e Irma Burt [...] NO PCP, NO PCP Primary Care Unavailable GREGORIO PÉREZ Attending Unavailable LUKE, SAGAR R Referring Unavailable NO PCP, NO PCP Primary Care Unavailable LUKE, SAGAR Attending Unavailable LUKE, SAGAR Attending Unavailable IRMA YI Attending Unavailable LUKE, SAGAR Attending Unavailable KD, RIMA Attending Unavailable LUKE, SAGAR Attending Unavailable LUKE, SAGAR Attending Unavailable KD, IRMA Attending Unavailable KD, IRMA Attending Unavailable LUKE, SAGAR Attending Unavailable Medications Current Medications Medication Drug Class(es) Dates Sig (Normalized) Sig (Original) amoxicillin 500 mg oral capsule (2 sources) Penicillin-class Antibacterial Start: 07-26-2022 take 1 capsule by mouth every eight hours Amoxicillin 500 MG 1 capsule Orally three times a day for 10 day(s) Jul, Active amylase 399629 unt / lipase 21945 unt / protease 371092 unt delayed release oral capsule (3 sources) Start: 04-06-2023 take 2 capsules by mouth three times daily at mealtime Creon 02726-911398 UNIT 2 capsules Orally three times a [...] 1 tablet by mouth twice daily Sutab 4567-197-743 MG 12 tablets the first dose the [...] 5 day(s) September, Not-Taking 84 hr estradiol 0.73323 mg/hr transdermal system (4 sources) Estrogen take [...] trimester] Onset: 09-17-2023 Chronic Other complications of (1 source) Supervision of resulting from assisted reproductive technology, third trimester; Translations: [Supervision of resulting from assisted reproductive technology, third trimester] Onset: 11-30-2023 Episodic Other complications of (1 source) Supervision of with other poor reproductive or obstetric history, unspecified trimester; Translations: [Supervision of with other poor reproductive or obstetric history, unspecified trimester] Onset: 11-14-2023 Episodic Other gastrointestinal disorders (6 sources) Constipation [...] Acute pharyngitis, unspecified; Translations: [Streptococcal pharyngitis] Episodic Polyhydramnios and other problems of amniotic cavity (1 source) Polyhydramnios, unspecified trimester, not applicable or unspecified; Translations: [Polyhydramnios, unspecified trimester, not applicable or unspecified] Onset: 10-22-2023 Episodic Residual codes; unclassified (1 source) 32 weeks gestation of ; Translations: [32 weeks gestation of ] Onset: 11-30-2023 Episodic Residual codes; unclassified (1 source) 26 weeks gestation of ; Translations: [26 weeks gestation of ] Onset: 10-22-2023 Episodic Respiratory failure; insufficiency; arrest (adult) (1 [...] Classification Problem Date Documented Da te Episodic/Chronic Other complications of (2 sources) Supervision of [...] on screening of mother] Onset: 09-17-2023 Episodic Pancreatic disorders (not diabetes) (2 sources) [...] edema; Translations: [Localized edema] Onset: 09-17-2023 Episodic Unclassified (3 sources) Contact with and (suspected) exposure to covid-19 Z20.822 Onset: 02-03-2022 Resolved: 02-03-2022 Viral infection (1 source) COVID-19 NEGATED: Highlighted row has been ruled out!Unclassified (1 source) No known active problems 12-30-2020 Results Test Name Value Interpretation Reference Range Facility PROTEIN CREAT RATIOon 2023 RANDOM URINE PROTEIN 170 mg/L High <120 [facility] Comment on above: Performed By: #### U PCR #### [facility] ([id number]) [address] [place] [address] U/PRO/GROUT PUMP OPERATOR RATIO CALC 0.17 Normal <0.2 [facility] Comment on above: Result Comment: Neph rotic Syndrome is associated with ratios >3.5 Performed By: #### U PCR #### [facility] ([id number]) [address] [address] URINE CREATININE,RDM 98.06 mg/dL Normal [facility] Comment on above: Performed By: #### U PCR #### [facility] ([id number]) [address] [address] COMPLETE BLOOD COUNTon 09-16 Erythrocyte distribution width (RBC) [Ratio] 13.0 % Normal 11.5-15.0 [facility] Comment on above: Performed By: #### C BC, CMP, FEPR, 2532-0, 3084-1, TSHR, 2276-4, 2284-8, 2132-01 #### [facility] ([id number]) [address] [address] Hematocrit (Bld) [Volume fraction] 34.6 % Low 35-47 [facility] Comment on above: Performed By: #### C BC, CMP, FEPR, 2532-0, 3084-1, TSHR, 2276-4, 2284-8, 2132-01 #### [facility] ([id number]) [address] [place] [address] Hemoglobin (Bld) [Mass/Vol] 11.9 g/dL Normal 11.7-15.5 [facility] Comment on above: Performed By: #### C BC, CMP, FEPR, 2532-0, 3084-1, TSHR, 2276-4, 2284-8, 2132-01 #### [facility] ([id number]) [address] [facility] [address] [place] [address] MCH (RBC) [Entitic mass] 30.9 pg Normal 27-34 [facility] Comment on above: Performed By: #### C BC, CMP, FEPR, 2532-0, 3084-1, TSHR, 2276-4, 2284-8, 2132-01 #### [facility] ([id number]) [address], [address] [place] [address] MCHC (RBC) [Mass/Vol] 34.4 g/dL Normal 32-36 [facility] Comment on above: Performed By: #### C BC, CMP, FEPR, 2532-0, 3084-1, TSHR, 2276-4, 228-8, 2132-01 #### [facility] ([id number]) [address] [place] [address] MCV (RBC) [Entitic vol] 90 fL Normal 80-100 [facility] Comment on above: Performed By: #### C BC, CMP, FEPR, 2532-0, 3084-1, TSHR, 2276-4, 228-8, 2132-01 #### [facility] ([id number]) [address] [place] [address] Platelet mean volume (Bld) [Entitic vol] 9.4 fL Normal 7-12 [facility] Comment on above: Performed By: #### C BC, CMP, FEPR, 2532-0, 3084-1, TSHR, 2276-4, 2284-8, 2132-01 #### [facility] ([id number]) [address] [place] [address] Platelets (Bld) [#/Vol] 181 10*3/uL Normal 150-450 [facility] Comment on above: Performed By: #### C BC, CMP, FEPR, 2532-0, 3084-1, TSHR, 2276-4, 2284-8, 2132-01 #### [facility] ([id number]) [address], [address] [place] [address] RBC COUNT 3.85 X10E12/L Normal 3.80-5.20 [facility] Comment on above: Performed By: #### C BC, CMP, FEPR, 2532-0, 3084-1, TSHR, 2276-4, 2284-8, 2132-01 #### [facility] ([id number]) [address], [address] [place] [address] WBC (Bld) [#/Vol] 11.3 10*3/uL High 4.0-11.0 [facility] Comment on above: Performed By: #### C BC, CMP, FEPR, 2532-0, 3084-1, TSHR, 2276-4, 2284-8, 2132-01 #### [facility] ([id number]) [address], [address] [place] [address] COMPREHENSIVE METABOLIC PANE Charles 09-17-2023 Albumin [Mass/Vol] 3.4 g/dL Normal 3.2-5.3 [facility] Comment on above: Performed By: #### C BC, CMP, FEPR, 2532-0, 3084-1, TSHR, 2276-4, 2284-8, 2132-01 #### [facility] ([id number]) [address], [address] [place] [address] ALP [Catalytic activity/Vol] 71 U/L Normal 39-130 [facility] Comment on above: Performed By: #### C BC, CMP, FEPR, 2532-0, 3084-1, TSHR, 2276-4, 2284-8, 2132-01 #### [facility] ([id number]) [address], [address] [place] [address] ALT [Catalytic activity/Vol] 11 U/L Normal 0-31 [facility] Comment on above: Performed By: #### C BC, CMP, FEPR, 2532-0, 3084-1, TSHR, 2276-4, 2284-8, 2131-9 #### [facility] ([id number]) [address], [address] [place] [address] Anion gap [Moles/Vol] 11 mmol/L Normal 5-15 [facility] Comment on above: Performed By: #### C BC, CMP, FEPR, 2532-0, 3084-1, TSHR, 2276-4, 2284-8, 2132-01 #### [facility] ([id number]) [address], [address] [place] [address] AST [Catalytic activity/Vol] 13 U/L Normal 0-41 [facility] Comment on above: Performed By: #### C BC, CMP, FEPR, 2532-0, 3084-1, TSHR, 2276-4, 2284-8, 2132-01 #### [facility] ([id number]) [address], [address] [place] [address] Bilirubin [Mass/Vol] 0.3 mg/dL Normal 0.3-1.2 [facility] Comment on above: Performed By: #### C BC, CMP, FEPR, 2532-0, 3084-1, TSHR, 2276-4, 2284-8, 2132-01 #### [facility] ([id number]) [address], [address] [place] [address] Calcium [Mass/Vol] 9.0 mg/dL Normal 8.5-10.5 [facility] Comment on above: Performed By: #### C BC, CMP, FEPR, 2532-0, 3084-1, TSHR, 2276-4, 2284-8, 2131-9 #### [facility] ([id number]) [address], [address] [place] [address] Chloride [Moles/Vol] 104 mmol/L Normal 98-109 [facility] Comment on above: Performed By: #### C BC, CMP, FEPR, 2532-0, 3084-1, TSHR, 2276-4, 2284-8, 2132-01 #### [facility] ([id number]) [address], [address] [place] [address] CO2 [Moles/Vol] 24 mmol/L Normal 22-32 [facility] Comment on above: Performed By: #### C BC, CMP, FEPR, 2532-0, 3084-1, TSHR, 2276-4, 2284-8, 2132-01 #### [facility] ([id number]) [address], [address] [place] [address] Creatinine [Mass/Vol] 0.46 mg/dL Normal 0.40-1.00 [facility] Comment on above: Result Comment: METH OD TRACEABLE TO IDMS STANDARD Performed By: #### C BC, CMP, FEPR, 2532-0, 3084-1, TSHR, 2276-4, 2284-8, 2132-01 #### [facility] ([id number]) [address], [address] [place] [address] eGFR (CKD-EPI) NON-RACE DEPENDENT >90 Normal >59 [facility] Comment on above: Result Comment: Reported eGFR is based on the CKD-EPI 2020 equation that does not use a race coefficient. Performed By: #### C BC, CMP, FEPR, 2532-0, 3084-1, TSHR, 2276-4, 2284-8, 2132-01 #### [facility] ([id number]) [address], [address] [place] [address] Glucose [Mass/Vol] 78 mg/dL Normal 65-99 [facility] Comment on above: Performed By: #### C BC, CMP, FEPR, 2532-0, 3084-1, TSHR, 2276-4, 2284-8, 2132-01 #### [facility] ([id number]) [address], [address] [place] [address] Potassium [Moles/Vol] 4.0 mmol/L Normal 3.5-5.0 [facility] Comment on above: Performed By: #### C BC, CMP, FEPR, 2532-0, 3084-1, TSHR, 2276-4, 2284-8, 2132-01 #### [facility] ([id number]) [address], [address] [place] [address] Protein [Mass/Vol] 6.5 g/dL Normal 6.0-8.0 [facility] Comment on above: Performed By: #### C BC, CMP, FEPR, 2532-0, 3084-1, TSHR, 2276-4, 2284-8, 2132-01 #### [facility] ([id number]) [address] [place] [address] Sodium [Moles/Vol] 139 mmol/L Normal 134-146 [facility] Comment on above: Performed By: #### C BC, CMP, FEPR, 2532-0, 3084-1, TSHR, 2276-4, 2284-8, 2132-01 #### [facility] ([id number]) [address], [address] [place] [address] Urea nitrogen [Mass/Vol] 8 mg/dL Normal 5-23 [facility] Comment on above: Performed By: #### C BC, CMP, FEPR, 2532-0, 3084-1, TSHR, 2276-4, 2284-8, 2132-01 #### [facility] ([id number]) [address], [address] [place] [address] FERRITINon 09-17-2023 Ferritin [Mass/Vol] 11 ng/mL Normal 11-307 [facility] Comment on above: Performed By: #### C BC, CMP, FEPR, 2532-0, 3084-1, TSHR, 2276-4, 2284-8, 2132-01 #### [facility] ([id number]) [address], [address] [place] [address] Folate [Mass/Vol]on 09-17-19 24 FOLIC ACID 18.1 ng/mL Normal >5.8 [facility] Comment on above: Result Comment: NEW REFERENCE RANGE Performed By: #### C BC, CMP, FEPR, 2532-0, 3084-1, TSHR, 2276-4, 2284-8, 2132-01 #### [facility] ([id number]) [address], [address] [place] [address] IRON PROFILEon 09-17-2023 Iron [Mass/Vol] 52 ug/dL Normal 50-170 [facility] Comment on above: Performed By: #### C BC, CMP, FEPR, 2532-0, 3084-1, TSHR, 2276-4, 2284-8, 2132-01 #### [facility] ([id number]) [address], [address] [place] [address] IRON BINDING 580 ug/dL High 250-425 [facility] Comment on above: Performed By: #### C BC, CMP, FEPR, 2532-0, 3084-1, TSHR, 2276-4, 2284-8, 2132-01 #### [facility] ([id number]) [address], [address] [place] [address] IRON SATURATION 9 % SATURATION Low 15-50 [facility] Comment on above: Performed By: #### C BC, CMP, FEPR, 2532-0, 3084-1, TSHR, 2276-4, 2284-8, 2132-01 #### [facility] ([id number]) [address], [address] [place] [address] LDH [Catalytic activity/Vol] on 09-17-2023 LDH 124 U/L Normal 100-235 [facility] Comment on above: Performed By: #### C BC, CMP, FEPR, 2532-0, 3084-1, TSHR, 2276-4, 2284-8, 9 #### [facility] ([id number]) [address] [place] [address] Natriuretic peptide B [Mass/ Vol]on 09-17-2023 Natriuretic peptide B (Bld) [Mass/Vol] 66 pg/mL Normal <100.0 [facility] Comment on above: Performed By: #### C BC, CMP, FEPR, 2532-0, 3084-1, TSHR, 2276-4, 2284-8, 2132-01 #### [facility] ([id number]) [address] [place] [address] TSH WITH REFLEXon 09-17-2023 TSH 0.78 uIU/mL Normal 0.49-4.67 [facility] Comment on above: Performed By: #### C BC, CMP, FEPR, 2532-0, 3084-1, TSHR, 2276-4, 2284-8, 2132-01 #### [facility] ([id number]) [address] [place] [address] Thiamine (Bld) [Mass/Vol]on 09-17-2023 THIAMIN VITAMIN B1 See Below Normal [facility] Comment on above: Result Comment: NOTE [...] developed and its performance characteristics determined by [facility] [address] ([facility]). It has not been cleared or approved by the FDA. [facility] is regulated under CLIA as qualified to perform high-complexity testing. This test is used for clinical purposes. It should not be regarded as investigational or for research. Test Performed By: [place] [address] Financial Compliance Examiner: Colin Cisneros III, M.D. CLIA #[id number] Performed By: #### C BC, CMP, FEPR, 2532-0, 3084-1, TSHR, 2276-4, 2284-8, 2132-01 #### [facility] ([id number]) [address], [address] [place] [address] URIC ACIDon 09-17-2023 Urate [Mass/Vol] 5.1 mg/dL Normal 2.6-7.2 [facility] Comment on above: Performed By: #### C BC, CMP, FEPR, 2532-0, 3084-1, TSHR, 2276-4, 2284-8, 2132-01 #### [facility] ([id number]) [address], [address] [place] [address] VITAMIN B12on 09-17-2023 Cobalamin (Vitamin B12) [Mass/Vol] 185 pg/mL Normal 180-914 [facility] Comment on above: Performed By: #### C BC, CMP, FEPR, 2532-0, 3084-1, TSHR, 2276-4, 2284-8, 2132-01 #### [facility] ([id number]) [address] [place] [address] TSHon 05-25-2023 Thyroid Stimulating (3Rd Generation) Hormone/ Tsh 2.200 [facility] abdomen w conon 3 CT abdomen w con [facility] Main [place] [address] [place] [address] CT Scan Report Signed Patient: Laura Alves MR#: [id number] 3 : 1985 Acct:[id number] Age/Sex: 37 / F ADM Date: 04/10/23 Loc: CT Room: Type: [facility] Attending Dr: Shun Hill MD Copies to: Shun Hill MD Ordering Provider: Shun iHll MD Date of Service: 04/10/23 CT/CT abdomen [...] Stan Owens M.D.04/10/2023 4:03 PM Dictation Location: [place] [address] Transcribed By: [facility] 04/10/23 4932 Dictated By: Stan Owens DO 04/10/23 3009 Signed By: 04/10/23 1604 Normal [facility] HCG ( test) IA.rapi d Ql (U)Ordered By: Shun Hill on 03-15-2023 HCG ( test) Ql (U) Negative [facility] HCG,Urineon 03-15-2023 Beta HCG ( test) Ql (U) Negative Normal [facility] Comment on above: Result Comment: PERF ORMED BY: [address] [place] [id number] PATHOLOGIST BOX TENDER MARINA AYALA M.D. Performed By: #### U HCG #### [place] [id number] [facility]3] 03-15-2023 L Specimen: [id number] Received: 03/15/23 Status: BUSTER Alfredo Num: [id number] Spec Type: Surgical Subm Dr: Shun Hill MD Tissues: A Colon Biopsy (SURVEILLANCE BX) Procedures: Deepti CHILEL/Pierce L4 Age/ Patient Sex Location Account Attending Physician Laura Alves 37/F [id number] Shun Hill MD SPEC NUM: [id number] RECD: 03/15/23 STATUS: BUSTER RAMOS NUM: [id number] SUMIT: 03/15/23- DR: Shun Hill MD ENTERED: 03/15/23 [facility] DR: SPEC TYPE: Surgical DEPT: S ORDERED: [...] The microscopic examination confirms the diagnosis. Specimen: [id number] Received: 03/15/23 Status: BUSTER Gonsalez Num: [id number] Spec Type: Surgical Subm Dr: Shun Hill MD Tissues: A Colon Biopsy (SURVEILLANCE BX) Procedures: HE/2, Gross/Micro L4 Patient: Rick Alvesy [id number] (Continued) Specimen: [id number] Received: 03/15/23 (Continued) Signed (signatur e on file) Winston Donis MD 03/16/23 1737 Specimen: [id number] Received: 03/15/23 Status: BUSTER Alfredo Num: [id number] Spec Type: Surgical Subm Dr: Shun Hill MD Tissues: A Colon Biopsy (SURVEILLANCE BX) Procedures: DUY/Yaz, Deepti/Pierce L4 Patient: Parminder Alvessay [id number] (Continued) Specimen: Received: 03/15/23 (Continued) CPT Codes 96764 Specimen: Received: 03/15/23 Status: BUSTER Gonsalezvanessa Num: [id number] Spec Type: Surgical Subm Dr: Shun Hill MD Tissues: A Colon Biopsy (SURVEILLANCE BX) Procedures: HE/Yaz, Gross/Micro L4 Patient: Laura Alves [id number] (Continued) Signed (signatur e on file) Robbi-Tyrel Donis MD 03/16/23 1737 [facility] SARS-CoV-2 (COVID-19) RNA NA A+probe Ql (Resp)on 01-16-2023 SARS-CoV-2 (COVID-19) RNA GEORGE+probe Ql (Unsp spec) Positive [email or web address] Other HIV 1&2 AB/AG Screen (P24 AG )on 12-13-2022 HIV 1&2 AB/AG Non-Reactive [facility] Hepatitis B surface antigeno n 12-13-2022 Hepatitis B Surface Antigen Negative [facility] No Panel InformationOrdered By: Rae Agudleo on 12-13-2022 [facility] Rubella IGG immune statuson 12-13-2022 Rubella immune IgG <0.90 NON IMMUNE [facility] Syphilis Total(Unknown Syphi lis Status)Ordered By: Rae Agudelo on 12-13-2022 Syphilis Non-Reactive [facility] COVID Quick Testingon 2022 Result Negative [email or web address] Other COVID Quick Testingon 2022 Result Negative [email or web address] Other COVID Quick Testingon 2022 Result Negative [email or web address] Other COVID Quick Testingon 2021 Result Negative [email or web address] Other Consent for Treatmenton 05-21 Consent for Treatment [id number] 0 [id number] 318#1.00CD:127 [facility] Coding Summary.on 05-28-2021 Coding Summary. CD:[id number]:[id number] MYz1iYq+PGhlYWQ+PE1 DCNVyS60ipTNxyK8PR2 xKET1FBKLRZEMBQA8JS Q4gxJC2MWcbX7MkoxIe ThqgpATxQG15AOi3TGN 8oEsaMTwukC6hwHLlI3 p1ToXwLW30gG24ZEgpB LGaIeS4UgIsdkfxlAQb V7sgJxFxxTPnHda+PHR hYmxlIHdpZHRoPScxMD CsQyQepRkoCW2yBm6iA GVyLWNvbGxhcHNlOiBj u1iwPCKuAXthLQ7juLj cW0CxpWC8AQTqr5o9Mq 48dHI+SQWpSVP8pPjsP Auaz243XlGlk8wjFEA2 fTYhRPceZON9U76io6T 7FZYzHZCwBMH9aCB4pC 0auCtfjvhiJ2EckANvP vM7GIE2yFEthM1qbVjk mnnftR0gCnd+K18UCV1 CGKATFI5RMah9O2MwKq wvdHI+PP95LOHwNI02a WZzfDBfc4nyzLb7RuIs VBIaTCF5vQqmPHzkz9S hZCMnB63ukJNkf8J5RO UoqUshqKAjYyRxpOP6z L1dWAlcwkwzp8tpisth Qkxve2vobi95iC13X10 kWWihJNAqLGW9RGKhFG TvrUiqhn8vxL0tLa9+I Fmkv1bqb1yldHb9QoXu EXDaecQvcXxzUSS6u6J hDz85B6UicLecy9FnJz y3cu36tJHxc7S3rQQ5L ExoXWArtG6hLZfyRtL8 TRDkHvZpkA47uLUwRAi gIi8pcMjikEofHB1lSP YdnvcnCDIwwK3xTHPwk YGgyRsqMH2oSBGiebsq s416ZlCcFWO9FRPilVT bJ0LtuR4uFzJsPBShJZ FiU7GvtGXxCRxiJ325T TqbHzH7QSJxbqOzB5Su LOYsnFvgJwV5h9B8Io5 Iy9GyxvufVYD8CMqzZQ BoVqL7LrGkWdJ0D5RoI lf3XTNnkQlyLB0sM3Wg ESQbteitxeqoaLV7UTR cPMLhuH84tTWoBKcvVf 3sy7I1u503MEQcCGWgd H98Bt2spYndWARbqSOH nC0nzojbp0tnsoxdYxV jIMYfUBu6NOj4SIGmeW ccKuYbFVT5EuQ9MBG9s LVokF3nvSrdbgbfzF3k Oyc+V98obG5kPCD2MYQ 7gwfiJQTxlkErUR65DM 90G6IxYmudlJOobCZ+P OJasgRaiAnpNX9sNrSk x7qas8FqECpoY5MuSYK kXAltJqo6VRSfCCQ6gQ T2zR2oRELcIWqzo8Q3n YU3N4KurjAokx8xa7ij XYCfZSpuC30ehERqi5X 1NWXxeQU1AIGdkSudNd KzxR62Lpt+PGNvbGdyb 8EkWnxiy6nhf4xnmLo2 IjMwJSIgdmFsaWduPSJ 6v5ZiYw46Q89zSFtvLO RoPSIxNSUiIHZhbGlnb a9viV4yFb8+PGNvbCB3 sRH7jR0xSHNyTkI2OUw cD538VxKcsUYcOwqno1 hzj3umoUl3ChBxHZCah uUmaTllJAV5q8ZhYg57 N39rCYeeFJCtGFYxGOQ gRZGtwRzina3uxJ3iWu 8+UG2mw6wrvc05xK54m HI+PBSfIWN5oPpeGHrc EGNpmS8nLIwyNfM1GVD qRnEvtT48cFPaRIrnWn 5rvRbmkMlvMF1kYBExq tcax215HaAlv6qlWQVc lXKoROvqVJF3V63wf4M 6ACLrYPXrDRB8kAN6rK 1hbGlnbjogbGVmdDsgd oNstUiaVFkiZLttS007 IHRvcDsnPlBhdGllbnQ eOiCrIYu9D3EnLgc9XX AwcLwlIO3mcUPbODhnK r2lnDgltUjlLO0uOBUk camgu241RaTzw1dvHQZ nmQWmIGzfHCW8O48pu8 A5SIMmOZTdXWE0bQX1v D4rmPbxcgjuoVVtyNyw pvAizYavKSypZTysJ62 6IHRvcDsnPkJpcnRoIE KxqLM2NE46ES97qWOwx 3Q4oYS5Y0LiKAGfvxpw fkswgVE0BVYcNPHrpT2 7Tc7bkQfmWv2iQJHjRB U6KXKtrYWdV8IenY7hK dNiEKPxPPKjQ2LegOEd SIpxH207THnqFxV6LVF cvfHfD1PmKBSyyYhwEp D2r7Y0Oy1DV1A0HM73P P82zTUxw1S8pKH2N4Nk YLAtrgeavajocVZ5TJP eQTVrkH47Ha6acYwoOu 0lDYIcCWR8XIHlfDPwR 2IxdP8sPeEsMRIqPANr O4HfcVXtISvzF274AFy nGrO0LZSuuqNoE3DjYO BvgZriSuP2l4Y9Ge9IY Am2KO77OS52iQSep6W4 yGU9E6LbUWUbtpeykkj qoBK3RBGlBTBhuR21Xa 2dkSwhXs7oOLKaRUE9Z QVlhLEwA1BlmG6vJxFw EPMhPRVqL9GwjFPjYIq vO095GPzuQiN2LSCgmj HgP0ThCDCnoPozQyP7u 4R7Db8FVTEcUE12SKB0 oVH7QR45HE48N0EvKvr vdGFibGU+PHRhYmxlIH dpZHRoPScxMDAlJyBzd BcaQH6kKk7uTBLvZMUl yAdcyHWgAoDit4zrKWU xUGbqYN9boBlrJ8BqmX Q7ICFzc9w1Fg28A67iY 3JvdXA+ALXblXF6tBR7 oQ2wAbIcOrU4VAxeS09 8XbJnyIMnHqrue7imi2 xaqFn9QrB7VSYnasUpz QqjNSU7z3XkTo60M22z IHdpZHRoPSIxNSUiIHZ ffNthun8ckQ5vXi1+PG HwuAH2bQE6lX5rRaKcJ fQ5LPnxS962PtQgySDf Faukb2zay4uumFw0MtX oFCGqysBuyVqpNAA8j7 JoQq58A3HkqXths1JmF dc7ex22bSIwt6I7dFN8 Z1PgIREalabclXOpuZn zJK6yVCHmyonkXYXwtF 8pOLDrG5k9YtIyGnI9T PqmP7MyayA8PGRqiGFg KVdqWWY2X53uo1H9REC dWEVjPRH1qIW1kW0zoP lnbjogbGVmdDsgdmVyd WnbTNzuZOcmQ554ZAId hAjlEWIorY3wOXTkdSD afCylNQ9kLVKcuiuaPt pVCY8XMEUTGphrIJrEB NLQESNIMO50TM80kQOo j8I6eLO6P7UjXORnshq fibuynXM5HHNsJHQnzS 15jUEoZOonSe5sw2O1q 903AGZdNDNpfJ59Lg8e eRkvKYQsnZNRaQ9eykt xn6zwigejVbKnUXRnFO s6EFs3QORmdKydKiHaJ GI6NeY7FPM3lGLntH3w fHhfgqhkkV7gCfz+MTI pSDhiOOt5KNxayKO+PH NsOYT7zQmbQGqrMEUad O0fNENwX8a3QxAmMyJ7 KTkvV6NcOIKzhxguIf1 1kH0zZuEeOeB7NGgcK2 SefpT0TOAfdZDuGEbqC RB4F86ig8N7ULUrXWWu OCW6cMO8eA7sjBrifjc gbGVmdDsgdmVydGljYW nhBYkbU784BDJfuPrpY kU5IMvdUVLdLD53IW95 jYXxc8Q8oPT5A2GoLKZ opjwfaalhjLU6HKHhKB IzpL00sYRnXJhtGb7wj 5A5w021QBXxKFZmbX55 Xf7wqUuzJMVgwMICfK4 gpgvlf5rjyzqrEcIhSM DgYLr5QRq0WAMugPspG sQgPOR4ZtC3KNK3cCLp nK5xyZavaibzbY4wPpu +VfTdRGmsCP00TX47gA Myf5Z2jZS7B9XrRPCoo isdqbfwiRW1HWPrOIYi uB41kPAqWEokVy4qf8F 2n357SXKdEQOswW72Zy 8omZrtUTTsxJGFzV5zs heuy8zvjfquOnKpGXMg ROr4MUi0GIKdwDmaQbY fNAS4ToT4MAJ0uOUwoI 0dcXwpsoszyO4aXgh+U aNumQWwzW7jBK67AT29 H5MyTxskvLZtgHS+PHR hYmxlIHdpZHRoPScxMD RhSsAbaMyqKG3qOr2hT GVyLWNvbGxhcHNlOiBj w6ovMHCfKIrrLS9tuUl hG2RveJL2POFol7w6Dh 03U27nU2BbnTD+PGNvb VA6jVY3cI8uRdWjAyD3 ZMmoG012LrAczZHuNma ha1idt7cyjHg3LsNeDQ VjhnJxfMcaAYE8x3BlR m02N68mLEtpEGJdXCGh IPHnQGCmnPyixl1clJ2 wIi8+GVTkuVK6lJD7yO 1mDeTdAwF6DLkpJ029J fPtoUJhJicbW31rH4Iv dXA+YJXqKyk7NMVxdUu rXF6uvKQxVJutOw3cNB I5PkTtXiLuSTliZ8FzH YTdejurkdwtqOC5DFGb UPHmyV31Cr2rbSnaPd6 zXNBmJUT0VIQsmWVyT7 NnqI9eBjQzMXVoTSNjH 9OpeJAjEKnjX141DRfu HnG2HKGvreJnY0SrKRB qnOunXaF5l4H0Xp4EnO onoCPhJL8rToAhEOn3Y 3EiGoc9VWFffOkbPP3d fSBwJDbiAj0hjWhijFm hKL7fSIFjazvkh961Lt Yos3ulJKWvlDWuOKzcB MP4N79oy4V1GXXiPUHq QKK2tAX1kE1szCnacep gbGVmdDsgdmVydGljYW puTNfdS717PSPteIwpC aOZUyx2A8FnSmv3SKYz sWpnPR4nfILhVPuwVx8 ksMecnSqnMG7sUQYwxw qce284KqCjg8kzAIGth SNjUJsyWSQ6Q99wy1A3 BONdGORuYVY5gYE7xR0 hbGlnbjogbGVmdDsgdm LlwGbbBEegEDwqF278P CByfGzuTw1CWne1R6Nx Ccs3TXTotIimHQ3ozNO dFRjeBv0elCnboMjiAR 1cZNLkeczyy604YvWbf 5koNYMseIJqMYzyONU1 X64tr4T2WRArVHSlOWN 9kNL6gH2imNqkasvvfZ VmdDsgdmVydGljYWwtY PntD013GOViyBauMlSx eWVyOjwvdGQ+FS52vr5 0R7MzCcdwUpj0GQJbPO L2xMV5oR2eXWQfILhch 3G7sVC9K2DqtuZcpn3f b2xs (more content not included)... [facility] Priority Order-Juan 2021 Priority Order-STAT Comment Invalid Interpretation Code [facility] Comment on above: Result Comment: Rece ived Performed at: [facility] RTP [address] [facility], [place] [id number] [facility] Mina Jones Performed By: #### S ARS-CoV-2, GEORGE, [id number] #### [facility] [address] [place] [address] SARS-CoV-2, NAAon 05-25-2021 SARS-CoV-2 (COVID-19) RNA GEORGE+probe Ql (Resp) Not detected Invalid Interpretation Code Not Detected [facility] Comment on above: Result Comment: This nucleic acid amplification test was developed and its performance characteristics determined by [employer]. Nucleic acid amplification tests include RT-PCR and [...] detected) result in this assay. Performed at: [facility] [address], [place] [phone] PhD Shalom Gonzalez Performed By: #### S ARS-CoV-2, GEORGE, [id number] #### [facility] [address] [place] [address] Family Medicine Phone Visit - Telehealthon 05-22-2021 [...] 6 months ago. Has been using DayQuil jbep-sna-cnykigd with moderate improvement. Review of Systems Fatigue: [...] communication with the patient located at [address] [place] [phone], with no one else. If it is [...] Patient verbalized understanding Ordered: Rapid COVID Antigen ([facility]) Telephone Est 5 to 10 minutes 62278 2. Fatigue (R53.83: Other fatigue) see above plan, rule out covid. Ordered: Rapid COVID Antigen ([facility]) Telephone Est 5 to 10 minutes 00857 3. BMI 27.0-27.9,adult (Z68.27: Body mass index [...] 1035F Telephone Est 5 to 10 minutes 51745 Follow-up With When Contact Information Irma Burt [...] Methamphetamines, Pre (more content not included)... [facility] Comment on above: Result Comment: Elec [...] height. This can be done either in [place] ([place] or metric measurements. Note that charts are available to help you find your BMI quickly and easily without having to do these calculations yourself. To calculate your BMI in [place] measurements, your health care provider will: [...] problems. ? BMI can be measured using [place]ian measurements or metric measurements. ? To interpret [...] Reviewed: 03/20/2018 Elsevier Patient Education ? 2019 [employer] [facility] Physician Orderon 04-27-2021 Physician Order [id number]. [id number] 8#1.00CD:127 [facility] Coding Summary.on 11-04-2020 Coding Summary. CD:[id number] RNu0uXk+PGhlYWQ+PE1 CPZTtC60vyYXdwU0SF0 wHHW4UKVHHQNKVMN4RH U6fkLW3LYdgA4OljiRc YutdhOPfNP18YCq7UVE 1oHqcUZzouZ2svWWdH3 x8KrCbTA56kF27IVirK CEwLiA1EmVwffattZKi N3qvKqGkcHKyBck+PHR hYmxlIHdpZHRoPScxMD BdQdPnxPrrJD6gEp4iD GVyLWNvbGxhcHNlOiBj u3jpDVDaHNyfBH1zlQe gX4OeeAZ8XYTqf1r3Sf 48dHI+JKEuYOJ8sDqtT Arqx019LsPqc6iqXPM1 nDVsINiuPQT6G36aa6I 2HDFzCVLmDEV1jCW5aA 4zaDepynsgN5CzgOFrM lD7AJO6pFCcjS5qwLeu lcbzjY1qUjb+O08USL9 PYPWZCP8FDka6F9TzAp wvdHI+ZK89ZTWyLN66u EFujKNuv0bjfTa6KdJj XCZyNBE1sQyzJBbdl2K pJFPsL35wjHMku1G2MP BbsTahfXFlGaAbzPW7g Q2xQZlqcidab2gnunqh Mtsex0pddi02dH06Y77 sWGrkULCjVXI7LNYvTP WutFckip0okF1iNl8+I Fcom1zim1ogwXq4TaVq HGJrtsIylPmkXIL2z6S kUw50J3AmtJjdk1XnNk l5ka56zBXzf6B4nLB3P JiaVTUjmR3zYWmmQfP6 EYObDlGtaD29zJXxVWs oNm9xgEvadLtpRV6qRF QhiompCOAqaU2hOVUlm XRgwSdxIP5yBLMfamls p446JbLeCEW9DVXlxTU zS1AvaI0sPzDdUWChMN BrM7FhcYWmQApsD240J NmxUiV0FMZebaGdT4Md PGFicHsjJnS2l8I6Pt1 Oq4QwzpbuKQF1CNifRO Q7JaX7GhDgKjO7U6LlU gr4QWSqnQskUO8yP2Qw JDUvnzofceacbTC9OZD nTAWybW31uDXeOHhvAf 2uq0A2l356VENxTKNvw W72Pw4eqPcjQCLatYVP fA2krcntl1uenacjJmR oSFPkQGu4JAf9DNHlaX xgCxPkSWI3FzW0IBS3v FBrsL7gtVxuvcujiQ3j Oyc+Y59abJ5lAIW3QGZ 9lmfaWZBsreUdCW52LV 14E6FbLmhcfNOzyCU+P YZecmUnbMqeRO8eJjEc c1vpc8JeQPltV2ZjSXJ uUAoyMtl0IEKsROV4iP K0eJ6tJPExRMqww6A6x RC4V9HtcyNwnh2jc6bn GFVqSIbxM69vkWMrt0C 2CPNzcXH3CPIwvPtiGd XdmD95Cec+PGNvbGdyb 0DbCjowh2jkr3mioUw6 IjMwJSIgdmFsaWduPSJ 1v0FiVf82Q16oWRwiCP RoPSIxNSUiIHZhbGlnb e7ovY3aPy5+PGNvbCB3 gLT5cD8rDTBwDbH2IBn uL952BuBngVMjVpnrb4 zcr9kafAy3RbLuHJFyz nWoaTkpCDZ1o3SbAn94 H29vGQigDUObZAZrUQC hNOMueCxutj7dsR5lHb 8+TP5yv6zvur03lM14r HI+OWAuTCQ3mTyxWZiv IJDndB4iZVtaTaG3QLZ jUkFkaK54fCYdLHlwXc 7tyAaztFhsKY2yWDUsg sryn252XqWru7rsIDGk pBYlMBqsEUY5X54di5B 0ITHkLNDqFLG5gOB8pT 1hbGlnbjogbGVmdDsgd wGxhMwdFXoeYOlmB805 IHRvcDsnPlBhdGllbnQ iQlOmHWc4I4DlOjb6JT PsvZsyXR1orRWaAHeaZ w3ljZnutIriIN7rLGDi qryrd696TzKfm6rlUSX gmFXfOEjdIYT1K35gt4 F4UTLcGKQwOFU8xKB3t V6rnHhujsdylBBkiFqo auFdaGlsCVgpCGloI58 6IHRvcDsnPkJpcnRoIE RzvLU7XT61AS52vTKkl 5C8mKG5D0ByZXHsgjky znkmpGF9AVFjTQBycE7 1Lv0kuLcoVq8uVOMsYI P1PBVbjQCcG1YeqA8bC hUnNCMvGWBpW7QxjEPc MCvhR712RZnwPeE1GYQ zrhUlG8HxCIZzfZdiDp C7x9Z1Vy1ND7J6VB69B G70tABzk7G4qVZ1V8Fc EWYjjusthjxzbLY1BZT kZRLdnD36Cn2ntVjsEi 8xKNSpGKE5XSDjlRVdJ 3YfcJ4eUoPjANBaIKSx Z4ZrwSTsTMhbL145WJi pUqP8LACmqaPiX1GfKJ YzsEkvKcH1e8H7Dc9DR Pp0OD16JB00gBYdb3H8 xDZ8P1PoLCLedrbxpix iyRK9SFRhCIKhnM21Fz 8tgIxzYf6pDMZlLCO0X JMunDJfU5QhcP9gMdYo VJRpEYKpL2EyzJWeMWy wA343JMwvChJ8JPJjxz GaL0FkWUOpuNjtKbL9y 6O6Bw1WTXQaJF63XJU3 tCT0OM46RS82F0IjLwh vdGFibGU+PHRhYmxlIH dpZHRoPScxMDAlJyBzd NdaJV4jFy7qYDUtDMBy xUaaoVYkKsHyt8vzPKA fMDazNM5loBmdA2XofC W2PWXsu3i6Oq17F26tI 3JvdXA+AKZxgMC5pVX6 mD0kHnBrLnZ5WXozU67 0ZwSwyEIkSfgtn7nan5 mavJv8AvF4RUNztlYfm DssIRQ3t8EfLp79J12g IHdpZHRoPSIxNSUiIHZ nsFuapd5ilR2yVj8+PG AxdWU1rDK1tY2oMfFbK pF1ZFwhK668QbXkhSCx Uclyz1ssl7jmsQt1ZkP eXKKnvfBqjLjhYBL2g8 WaJd21F2IutPitd9LfD zv6ky24iOLem6L1gFX4 V7PuBPSqpbspyAIbuXa pCW0dLYSqwvofGSVehZ 5eSSWqH4l8BbMyEaH3W PdwJ3WntmC2NJDuvVEp RAzhAAY2P16dp5R4ZSQ bWQRsFOD1iEU6mQ4qwJ lnbjogbGVmdDsgdmVyd TkdKSsaUAlfA741DUPm xQgoSPGhyD9hRPUsaPQ lyZglEV5iVSGgxowpPp zWEW3DNPKMXyfeFOcEP DVTDGFNDQ71LH15tZBq p3Z0lMJ3F6CcEUEycrr bpydjiNY3KBJzLHBryJ 20aQVqSSvoFb1hl8U7b 248WXTsPOLujU01Mo2w sJrzFQBwpYULvR1ydvp mf1sycjhmBcRoBXIhIA t4NIw0THTvjLiyZyFyG TG8ChO0YBA9uPIqvC6k aNlsppxfiN3hLml+MTI cKJbeLGp3PBkqfAL+PH IaDWE3uAwqOPisDTHdx F8wDPUeT4p6LrYsMtB2 OErdR4RqRJVqkqkcAs6 2kF9eAyIaBrZ7ECpaB1 BuxfK4TXKlvCDeYWehA HO4A29rx9E1EIWyEHXv EMA2fQZ3zF1ttMdgajl gbGVmdDsgdmVydGljYW gqAGsrX974FMKbxLyxR aD9HUzyAIBfIP99YL82 eVVgd2B2uCK9A2DuUDP sawnvmyqixNZ3IDMsXW SztV80yKOsVMpuCu9qi 0O4b353BHWaVHHehD12 Dh9apJzbCRCgcGOMfV6 qprequ8nilqzcSdKlFQ QuIZh2OBc8KUHdpXuiJ kTcFFS9GiH1RLJ6gYSh vM9xtBpvlowbiB2zYqg +WxZqYEgnCU36XB23gV Ajk1E9qIL7S7QqISIqf ejvenvboSI3EDZePGPv iP92iQQmEGlsMu1fb8P 4c784AGQlSQDnmG78Wr 9otUytLLMoqAHFsV6eq aoaw4qkwxnkDvBxKXAc MQm0GOt4XLClyOsjHpM jETX9OeV9CGH7uKBruS 0miEbbjwihhK0aUel+T 0E5pRC1uUBakTgxtLV+ CS13kk61U1HxNmcnDsc 2MGKuOLW3cRZ7pO6oMQ ZtUTdaq0M1eJA8F3Xla qYhgr6ji1svAIFhCNui P55fjMMht6N4OLLezNU 9GDLntMnlKzGhnV58Ra c+JTCyeZitm7JoAwpio 1iho7xskRf2SlInARMn xeNlyEsgGNM9z5TfQt2 2E60lHYjeMFWzIVKkZO ZhVCGvdXwyrp2kkI8eN i8+KHDzzFU5bKJ9pH5v QwHcFlM7EEmxS415MvJ llKUgGktng3exz5npnY s8IxHiEDApzjHqoBiiU XV7y0ZeAx08C6HsaYkx l2TxXbc3gb25qDYqk6L 2xCM3S6BjVGRxoswjeN UryBpcRT5hXHFbenvnG FQyfG9nREMjS6s7RmMu ZtX0OIndL5HyafY1FQM cpKBnRLClsNIGhC7pkc wax8ukbcqoYfOnIMZyV Vc3NQo3BSGgvCbpIqOy SMT7OyN2BMJ3rMGjcQ4 nlSszwrhbeH1iVlv+UG d1j8pgaAToKO7reRN9C E34AG93yZVju5Y3xFZ1 T4HyNRWhsdldvjfjcVR 3XYTuDABqsY92Vq0fbO uyWl8hQOGwGOJ4ZHFbf BLhQ7HfjH4hWnMdWSQi EKBxL4IkuGKtVIdcP57 3VLxoDcN9YNDtxjXdY8 MpHAWvhMbfHvU5a1L4J h3BQM17WK55DG53sRXj f3G3qYB2X1IjPSZuvdm wyxlotEP4OCPaYTKtnT 89Qi3jaYlxFg7uIFRwV OI4IWVrrAYkJ9MifJ7x MdHdROKgRUUzJ5HxiGV lCAppZ392INfmKxE2US XzkeLeZ4SkKXIqdNkqH aC3c9Q0Ue1DSf93XS10 US58lNClp3D9jSP5V8J dRAYmnzecjcvflOF1GH JwZXYgwY30Uw8lpCvqO y7nHOLpDKV2YHAigAGv T1RanV0cUaVbEOEeXRQ eX5MhxSXwSGwfZ418ZM zcVqS4OVVumfQxG4WlA JSqkTsfGkH1x7E3Nn2O PLqsnut3S2GnIwkipJL +SV05KNCdLC95kLLmdK Osp4mnsQk8HbLdODFyQ OB1pSehRTryp1VqTYHx Y29s (more content not included)... Normal [facility] CT Chest w/ Contraston 10-29 CT [...] Contrast amount in ml's: 100 Normal Flores [facility] Coding Summary.on 10-28-2020 Coding Summary. CD:[id number]:[id number] ZFd7bHc+PGhlYWQ+PE1 VKGZsO61drLFjoR5SM5 sEMK8SWMPNSMGSRP3DN A1lqIZ4NScoD0SihcAr UlvwtOVhDF94KQp2JXX 6eXncDEqtcZ7yjMCwM1 b3VyHoLI20zP03JOteF GXhFtH8CiUjxrdfwIVl P1dmIqZwhZQxRwo+PHR hYmxlIHdpZHRoPScxMD YzYzAqnIcjUX6pIc5hO GVyLWNvbGxhcHNlOiBj k6hiVWDnDGwzUQ4vsCo vD1TbuCU5NVAia9o5Xn 48dHI+QZUdUBU8dNiyF Rxdl206EiDor7poJWG9 eZTrKRqmWIH6T92oo4K 0DJSjLVAhIHX2vIT2pY 9fzUfuggpyG2JqqDEdF uZ4RMV2eRFkaN3omRkb cwnvyA1jFjd+S84JKT0 FKOBKJY2JGxp2B6WhQz wvdHI+ZJ91MVOfIE19s CSjjLPzl6pujUp5XiNo UELnAOI9yWcgKKuml2H cXZSyV31vnIRpm3C0ES KadLkinLFeVxLulSJ8o T4dMIipyfqqq4prsrdc Uiqmg3marn19dI37D07 vALbfMBDlCZN4DZMePK VdsOfyah6ntA7lVc2+I Ezdl5hlx3jyaWh2EtMq OGBnfzWxoQqnPBI3r0K uAd75V2KhiAacw7StSx r0rp48eWMpt1Z9jXN2J WvyFICzuR2mWUjsHfZ6 HUJnIzMujK92uWDiWGe tNm8fwBiveMvjCF2zNS XfjdqtMFKdcW9oQAVib CKvaGhdAB8yRKLrjxdp g748AoZpVZN8BKFmsJQ wW4JgmK5eStTbPZWuCJ DuY3EltMLwICbzZ633G HnqUsM9JYDmqcYtY9Cs FUCzhMfaMxJ5f5T3Ie2 Hv0AzzgzjJKK2XPzyVA C8GeTxHpHqQkN3A2SsI tn4SKYncHtpQS7sI7Es EYActzuefcuzjRA9ALI oIKGaoP40yGCnDFqyHy 7kv7I5j546GFUePKWii A00Nq0swYlkJBAkrGCV wM0nzzakf0gtyqdmNwG aMIJaXTs3GVy4XUAidN vnRgUySFA2VgC3ICM9a ERrpA4hkVuzweljwE3l Oyc+G94jwI6bVPB7HJV 8pmijHVCgpkXhLN67VW 11B2RoOgklsRYfvCE+P QClzkFzxRoyNY5dOjRo z2hjo2IqLDrtV1BbGUD nOLmzMdo8MHKdLNY7jE K6jW4xMPAbMSxww4I6u HJ7X9KisxGckj9yx0xv THIoCZlzI30muAOwn4E 6PLVpzCF2XAGncKqpEj IzvW13Tac+PGNvbGdyb 5QbDfwgw8pwg2exhXm3 IjMwJSIgdmFsaWduPSJ 1l9XuIt00M39gVLkgLU RoPSIxNSUiIHZhbGlnb y0wjV2qVv5+PGNvbCB3 xZK2aI9jTNNcCpK7BKq wO617SqEsbIIeSujuf9 gkz5yoqBo6PyFmSXTmj wXhaLcyNLW8e2XkEc78 Q92zTNoxCOSoTKVlXKV kETGbtEvzgk0gqS2rCl 8+GK7zv8smxg49kG61p HI+MZUtWYT9jNgdVExf WBMgwE6uSCgmBtH6OIH rTyHjaU67aBWhDFjzWg 1lnUufzSepSW9qVZVhf hzig009UlSpf5meXSDc qUDtXIkkJXG2T96sp5W 1JHJgVUSbJJJ5nNN7tL 1hbGlnbjogbGVmdDsgd pEyqNffRKmuAGtpG678 IHRvcDsnPlBhdGllbnQ kJxQmQUj3U8XzXvv8MW MrtMglYK5vbPAeRQqdQ c2zcVnloWhdEQ2qJTUc vsgtc344FwMoa4wxPNN frYTyKGufLKJ1W93nf1 B6CWMeGTRmSBG0zPJ9v W7rwVlsjlcxvZPfuZrp ztAddYhpQUsyCMqqV86 6IHRvcDsnPkJpcnRoIE CitOK1UQ13FD83jSZyb 8X6lLX6I9AdAMUzxsjp ssevwKC5AITmYYWcqZ9 4Zx8gpGjfZj1iFQWoSP W2HBLssFUkG2IzlZ5aB hOaLLAuHUIvN2IkxJWs NGflB698RJpxScC0XEB lfyPkM0RqTKTggPlsNl Q6i7N1Fm8CM5C0YI78Q Z68cAHzn2W1kYT8R2Uk RARbucsdygovoCK0LUO uCTHkrY86Gf4iuSrsNe 5hRZPpCGN0ZBZeoTKeU 9NrmN8dQhKsWTLmTVPq A4QjiQDrSYzcH834HTs qCxE3LPAvztCvE2YuBO LgxDykPrN0x0F1Sg5MZ Ak5AQ32WK71mBPnu6K5 wUR5S7NeRINffrezblk ecBI3SVGzAILqfC48Is 5roFcqKs9rYJPwQMC7A ZSwfKLbP6QukU3iBiAn BIWwCNYkP8QkbNCrFLu bS548NEamSeV7ZUWegm HoX1RaALNquVnlPgD6r 9N7Ct3UNULdJW78LGG6 oNR1PM25VT14Y3YrJfx vdGFibGU+PHRhYmxlIH dpZHRoPScxMDAlJyBzd CajSN8nHc2gWPUbTCOf mElxuHIsZbKiv4ieZIQ dXItbKH7zcWmyT6UdwE O5KUSyv8g0Jc38D27bX 3JvdXA+OBQnnZF4wUY0 lJ9sFsWnSyE3DCcsP86 4IlEmbSDoNxehk8yem6 yzeMm7RqI7EDMulvGtg VaxJNN2e7WtOf97G93a IHdpZHRoPSIxNSUiIHZ zlFoohd3tzO9vYb7+PG CleHD8zDB8sW4qWfTfN rQ5GByiJ857HhWpwRBa Jlcvc1cgi4gmoDp3CvA vGVEupxKnbWiwNEZ7d8 UbSr94L1MrtBnoq8SwC kz9ef03nZGti2Y7dLP8 V2PeMBYkxjtlqWQcqPg nOA6oSWIbrjrrMFJxmR 3kZMAsN6c6MgNxXbV3S SjkV1VtvcH3LELpvADo UIqwZRC8D81uw1A8MZS bSKQmLDE3qCC2dD5ymU lnbjogbGVmdDsgdmVyd PqzJCrvHVyoA802PWWm xUcxAJCejS1gDJJcoBO ruXasNA0aYASjypcdJe mYRZ2GOEUWUmilUOyHV EUWMIDJXU47KL95vDJm a9D6dFU9I5NyNGGmreu wbysqwUD2GUEtSQGzeZ 96oYSfWLqkOq0as7P1t 828XZZiZNQqfF21Vk9a nXmbSEDmgNLTdS2urqj uu6bdlmruOjGdKMDpCM j7JOm3NZFozNprFjBwB ST5AkN7RCA3yFLqtT4m pWeugrmkfN8sEvr+MTI cPOmbMSb9NSrtoJN+PH EgVED7pFyjYGhwWBMyg B4pMUYmU1v0ArBlBnO4 LGxsB2XbDWBwajovBy6 8oM8hWpInStN8WEkpV1 HekbN5FJKabDHuHIgrZ TV3M27us4T1FJNlXSUa LVE2xAU5wT4rhZqmyft gbGVmdDsgdmVydGljYW ifNFmgL906YQWrvYfoT uG4RVmyILHjUP26MC28 kYPuw4A0tPA5C6EjCAH othtjnnrtvQZ1MBWeHP KjtK22sNSxISboBz3tb 6A0f857TRTpAVWrqV85 Ck3ehDyfGMSjcBMViY2 lyblni4ltjaqwFvLeNW PcQQh4MTe3ASGxbDjbB uOyEWZ7UaD0CPS2pBAe xM2jaAzljywmxN9tEsk +EcSsIWlmCL28YF70bZ Rzv6B1sQY9Q9RlPHSbu zdxediczUB7AKGvPVJn lA48jOGgWNheNc7nb0K 7f533INCuTSMamF26Es 8nlCiaNHKglNOSfK4tv qqqe5aauiskVoIqKJGm OMa0BWc6QFQouIxaFzY tUFD6CgL4XHS2rJYgyT 2sgHajnuogzY0nTqu+T 0V8dVT1jPSewCvihQR+ KR42nh76K1YmUigeZqj 7MIPeGLH1xAM0wW6nQN MtNRkyc4U6hEJ0R4Omm rVvan2ys5ofJAJkJJed I25snJRxf8H3JERrvID 6YJUoyUouGzGpvU38Ko c+LUKvwXscw6HiGijld 9fae9tglSh4NwFsTFXd wmDfbKyzXIN6k3XiUz7 4W31pEFmhHNLfBZRsMM JaEYXqaUjjky0xbM8zY i8+DXUtrKA3vNP9zM5x EwPyQoS2RNwfB829IsH ibASaFozfn5xyb2beqD s8QbSoLYSatiZghMzeF WV4s9QsLq25Z9NkpPpe u6WaQsi0xx82iWJkk8N 4uOC6O8LoABQnvwaagQ GamFtwTC0fCYJjvhqcN YPosA2lTSNbO4s3HoMs NfN1TKklW5AyhpO3WLY opVDvYUTioCPPnN0uwe cof4chhijeRbCoXFMlA Um5GVb4MYCmlIxqVjPc WSZ6YuM3WYG0mSWibZ3 twEvndozdfC3xCbp+UG m1e2sqlZWaZT1itOZ9V A31LQ56jFOch8R3aSN5 J2WeRKAxjqxhbdfglWJ 4OWSaCNMviM55Ln8cgA bzSi4hJFQdDVO4SAQxz DRwM5KlwI8zDqQgRFFs SLLfT4UcpUPuMFlfZ89 1TPdgHsA5OFJigpZrS4 GpKZQmgIvyQbF0m0L1K r7MZN40JC50LR09lVDr h6M8tBX2L8RqVUIxapn wegnedKG4HYLuTHVjxW 66Qi3jhAowFg8eUDOqB VL1QKMxiTFiU9LeaE3m DlNvMBErASObH2LeeEH uSMslL520HIwxEwJ5TS JsviXqF6UhSERabUgyS zL1k9W4Ma8ZSc19OK46 IJ39kKDqs3K4zRX3K8O iTORojcwaxzmfdSO8CL CzWBWycW09Af5nvTpiH k4iEKVgEEW8OQSdrSZd Z8FvsM8fWbPdMFEjGUM oM5YtuMWaOGciA013SW hhKqG3CCCmmyCaW5KhU BGeoBxnEfL9k1O1Il8L AVjkapm3D1VwCdncyZE +RO22RIJgWT46zELpbO Nqo7fvsWe9JoApCMDhC DL9oAemUExce5ZnRSUy Y29s (more content not included)... [facility] Consent for Treatmenton Consent for Treatment [id number] 44#1.00CD:127 [facility] Physician Orderon 10-21-2020 Physician Order [id number]#[id number]:127 [facility] Consent for Treatmenton Consent for Treatment [id number]#[id number]:127 [facility] Physician Orderon 10-19-2020 Physician Order [id number]#[id number]:127 [facility] XR Chest 2 Viewson XR Chest [...] M.D. Transcribed by: SHAYNA Technologist: BECKI [facility] Vital Signs Date Time Vital Sign Value Performing Clinician Facility 07-26-2023 11:27-0500 Body height 170.2 cm Kaitlyn Jasso MD Work Phone: [employer] [facility] 06-12-2023 13:00-0500 Body height 170.18 cm Shun Hill Other [email or web address] Other 06-12-2023 13:00-0500 Body mass index (BMI) [Ratio] 35.24 kg/m2 Shun Haleormack Other [facility] [employer] Other 06-12-2023 13:00-0500 Body weight 102.06 kg Shun Hill Other [facility] [employer] Other 03-15-2023 12:29-0400 Diastolic blood pressure 89 mm[Hg] DO Irma Burt Work Phone: [facility] 03-15-2023 12:29-0400 Heart rate 70 /min DO Irma Burt Work Phone: [facility] 03-15-2023 12:29-0400 Respiratory rate 16 /min DO Irma Burt Work Phone: [facility] 03-15-2023 12:29-0400 SaO2% (BldA) [Mass fraction] 100 % DO Irma Burt Work Phone: [facility] 03-15-2023 12:29-0400 Systolic blood pressure 132 mm[Hg] DO Irma Burt Work Phone: [facility] 03-15-2023 08:54-0400 Body height 170.18 cm DO Irma Burt Work Phone: [facility] 03-15-2023 08:54-0400 Body weight 90.71 kg DO Irma Burt Work Phone: [facility] 02-08-2023 14:45-0400 Body height 170.18 cm Shun Hill Other [email or web address] Other 02-08-2023 14:45-0400 Body mass index (BMI) [Ratio] 34.92 kg/m2 Shun Hill Other [email or web address] Other 02-08-2023 14:45-0400 Body weight 101.15 kg Shun Hill Other [email or web address] Other 02-08-2023 14:45-0400 Diastolic blood pressure 80 mm[Hg] Shun Hill Other [employer] Other 02-08-2023 14:45-0400 Systolic blood pressure 131 mm[Hg] Shun Hill Other [employer] Other 01-16-2023 10:35-0400 Body height 170.18 cm Aydee Nadiya Other [employer] Other 01-16-2023 10:35-0400 Body mass index (BMI) [Ratio] 35.2 kg/m2 Aydee Nadiya Other [employer] Other 01-16-2023 10:35-0400 Body temperature 98.3 [degF] Aydee Nadiya Other [employer] Other 01-16-2023 10:35-0400 Body weight 101.97 kg Aydee Nadiya Other [employer] Other 01-16-2023 10:35-0400 Diastolic blood pressure 66 mm[Hg] Aydee Nadiya Other [employer] Other 01-16-2023 10:35-0400 Respiratory rate 18 /min Aydee Nadiya Other [employer] Other 01-16-2023 10:35-0400 SaO2% (BldA) [Mass fraction] 98 % Aydee Nadiya Other [email or web address] Other 01-16-2023 10:35-0400 Systolic blood pressure 105 mm[Hg] Aydee Nadiya Other [employer] Other 09-23-2022 10:45-0400 Body height 170.18 cm Aydee Nadiya Other [employer] Other 09-23-2022 10:45-0400 Body mass index (BMI) [Ratio] 35.13 kg/m2 Aydee Nadiya Other [email or web address] Other 09-23-2022 10:45-0400 Body temperature 99.2 [degF] Aydee Nadiya Other [email or web address] Other 09-23-2022 10:45-0400 Body weight 101.74 kg Aydee Nadiya Other [email or web address] Other 09-23-2022 10:45-0400 Diastolic blood pressure 80 mm[Hg] Aydee Nadiya Other [email or web address] Other 09-23-2022 10:45-0400 Respiratory rate 18 /min Aydee Nadiya Other [employer] Other 09-23-2022 10:45-0400 SaO2% (BldA) [Mass fraction] 98 % Aydee Nadiya Other [email or web address] Other 09-23-2022 10:45-0400 Systolic blood pressure 125 mm[Hg] Aydee Hearn Other [email or web address] Other 09-04-2022 11:20-0400 Body height 170.18 cm Aydee Hearn Other [employer] Other 09-04-2022 11:20-0400 Body mass index (BMI) [Ratio] 31.32 kg/m2 Aydee Hearn Other [employer] Other 09-04-2022 11:20-0400 Body temperature 97.8 [degF] Aydee Hearn Other [employer] Other 09-04-2022 11:20-0400 Body weight 90.72 kg Aydee Hearn Other [employer] Other 09-04-2022 11:20-0400 Respiratory rate 18 /min Aydee Hearn Other [email or web address] Other 09-04-2022 11:20-0400 SaO2% (BldA) [Mass fraction] 99 % Aydee Hearn Other [email or web address] Other Encounters Encounter Date Encounter Type Care Provider Facility Start: 12-25-2023 End: 12-25-2023 ambulatory SAGAR BUTLER Not Available Start: 12-24-2023 End: 12-24-2023 ambulatory GREGORIO flood Start: 12-19-2023 End: 12-19-2023 ambulatory IRMA YI Not Available Start: 12-06-2023 End: 12-06-2023 ambulatory IRMA YI [...] 10-22-2023 End: 10-26-2023 ambulatory KAITLYN JASSO [facility] Start: 10-22-2023 End: 10-22-2023 ambulatory SAGAR R LUKE [facility] Start: 10-09-2023 End: 10-09-2023 ambulatory IRMA KD Not Available Start: 10-01-2023 End: 10-01-2023 ambulatory CATHERINE GASPAR [facility] Start: 09-20-2023 End: 09-21-2023 ambulatory KAITLYN [facility] Start: 09-18-2023 End: 09-18-2023 ambulatory SAGAR LUKE Not Available Start: 09-17-2023 End: 09-17-2023 ambulatory SAGAR R LUKE [facility] Start: 09-17-2023 End: 09-17-2023 ambulatory KAITLYN [facility] Start: 08-31-2023 End: 09-04-2023 ambulatory FROYLAN Rascon RACHEL [facility] Start: 08-15-2023 End: 08-15-2023 ambulatory IRMA KD Not Available Start: 07-26-2023 Chart abstracting Kaitlyn Jasso MD Work Phone: [facility] Start: 07-18-2023 End: 07-18-2023 ambulatory SAGAR LUKE Not Available Start: 06-20-2023 End: 06-20-2023 ambulatory Shun Hill Other [email or web address] Other Start: 06-20-2023 Telephone encounter Shun infante [facility] Start: 06-19-2023 End: 06-19-2023 ambulatory SAGAR BUTLER Not Available Start: 06-12-2023 End: 06-12-2023 ambulatory Shun Hill Other [email or web address] Other Start: 06-12-2023 Office outpatient vi sit 15 minutes Shun Hill [facility] Start: 05-01-2023 End: 05-01-2023 ambulatory Shun Hill Facility:[facility] Start: 05-01-2023 End: 05-01-2023 ambulatory DO Irma D Burt Work Phone: [facility] Work Phone: Start: 05-01-2023 End: 05-01-2023 Patient encounter procedure DO Irma Burt Work Phone: [facility] Work Phone: Start: 04-10-2023 End: 04-10-2023 ambulatory Shun Haleormack Facility:[facility] Start: 04-10-2023 End: 04-10-2023 ambulatory DO Irma D Burt Work Phone: [facility] Work Phone: Start: 04-10-2023 End: 04-10-2023 Patient encounter procedure DO Irma Burt Work Phone: [facility] [place] Work Phone: Start: 04-06-2023 End: 04-06-2023 ambulatory Shun Hill Other [email or web address] Other Start: 04-06-2023 Telephone encounter Shun infante [facility] Start: 03-20-2023 End: 03-20-2023 ambulatory Shun Hill Other [email or web address] Other Start: 03-20-2023 Telephone encounter Shun Moncada naresh [facility] Start: 03-19-2023 End: 03-19-2023 ambulatory Shun Liz Other [email or web address] Other Start: 03-19-2023 Telephone encounter Shun Moncada naresh [facility] Start: 03-15-2023 End: 03-15-2023 ambulatory Shun Hill Facility:[facility] Start: 03-15-2023 End: 03-15-2023 Admission to same day surgery center DO Irma Burt Work Phone: [facility] Work Phone: Start: 03-15-2023 End: 03-15-2023 ambulatory DO Irma Landrum Burt Work Phone: [facility] Work Phone: Start: 02-26-2023 End: 02-26-2023 ambulatory Shun Liz Other [email or web address] Other Start: 02-26-2023 Telephone encounter Shun Moncada naresh [facility] Start: 02-08-2023 End: 02-08-2023 ambulatory Shun Liz Other [email or web address] Other Start: 02-08-2023 Office outpatient ne w 45 minutes Shun Hill [facility] Start: 01-16-2023 End: 01-16-2023 ambulatory Aydee Hearn Other [email or web address] Other Start: 01-16-2023 Office outpatient vi sit 15 minutes Aydee Nadiya [facility] Start: 09-23-2022 End: 09-23-2022 ambulatory Aydee Nadiya Other [email or web address] Other Start: 09-23-2022 Office outpatient vi sit 15 minutes Aydee Nadiya [facility] Start: 09-04-2022 End: 09-04-2022 ambulatory Aydee Hearn Other [email or web address] Other Start: 09-04-2022 Nursing evaluation o f patient and report Aydee Hearn [facility] Start: 07-12-2022 End: 07-12-2022 ambulatory Perlarolo Márquez Other [email or web address] Other Start: 07-12-2022 Office outpatient vi sit 5 minutes Perla Márquez [facility] Start: 07-07-2022 End: 07-07-2022 ambulatory Aydee Hearn Other [email or web address] Other Start: 07-07-2022 Encounter for other preprocedural examination Aydee Hearn [facility] Start: 07-07-2022 Nursing evaluation o f patient and report Aydee Hearn [facility] Start: 02-03-2022 End: 02-03-2022 ambulatory Maria Guadalupe Powers Other [email or web address] Other Start: 02-03-2022 Office outpatient vi sit [...] Td Vaccines (3 - Td or Tdap) [facility] Start: 09-17-2023 End: 09-17-2023 Patient encounter procedure 09/17/2023 8:45 AM EDT Office Visit [facility] [address] [place] [id number] Kaitlyn Jasso MD [address] [facility] [address] [place] [address] [facility] Start: 09-17-2023 End: 09-17-2023 Patient encounter procedure 09/17/2023 7:30 AM EDT Appointment [facility] [address] [place] [id number] [facility] Start: 05-01-2023 [facility] Start: 03-15-2023 [facility] Start: 01-19-2023 COVID-19 Vaccine ( season) COVID-19 Vaccine ( season) [facility] Start: 01-19-2023 Influenza vaccination Influenza Vacc ine [facility] Start: 12-30-2021 Adult BMI Screening Adult BMI Screen ing [facility] Start: 2006 Screening for malign ant neoplasm of cervix Pap Smear [facility] Start: 1997 Depression Screening Depression Scre ening [facility] Start: 1997 Tobacco Screening Tobacco Screening [facility] Immunizations Immunization Date Immunization Notes Care Provider Fa cility 02-03-2020 influenza virus vaccine, unspecified formulation Kaitlyn Jasso MD Work Phone: [facility] Payers Date Payer Category Payer Private Health Insurance [id number] 2023 Self-pay [id number] 2018 Private Health Insurance [employer] II [id number] 2018-Present [phone] [address] [place] [address] [id number] 1985 Unknown [id number] 2.16.840.1.589606.3.579.2 .1285 1985 Unknown [id number] 2.16.840.1.396946.3.579.2 .1285 1985 Unknown [id number] 2.16.840.1.314988.3.579.2 .1285 1985 Unknown [id number] 2.16.840.1.108220.3.579.2 .1285 1985 Unknown [id number] 2.16.840.1.372125.3.579.2 .1285 1985 Unknown [id number] 2.16.840.1.053107.3.579.2 .1285 1985 Unknown [id number] 2.16.840.1.986297.3.579.2 .1285 1985 Unknown [id number] 2.16.840.1.364904.3.579.2 .1285 1985 Unknown [id number] 2.16.840.1.639659.3.579.2 .1285 1985 Unknown [id number] 2.16.840.1.218508.3.579.2 .1285 1985 Unknown [id number] 2.16.840.1.747725.3.579.2 .1285 1985 Unknown [id number] 2.16.840.1.791683.3.579.2 .1285 1985 Unknown [id number] 2.16.840.1.138847.3.579.2 .1259 1985 Unknown [id number] 2.16.840.1.714786.3.579.2 .1258 1985 Unknown [id number] 2.16.840.1.635250.3.579.2 .9 1985 Unknown [id number] 2.16.840.1.852866.3.579.2 .1258 1985 Unknown [id number] 2.16.840.1.839231.3.579.2 .1258 1985 Unknown [id number] 2.16.840.1.525001.3.579.2 .1258 1985 Unknown [id number] 2.16.840.1.352626.3.579.2 .1258 1985 Unknown [id number] 2.16.840.1.284065.3.579.2 .1258 1985 Unknown [id number] 2.16.840.1.034665.3.579.2 .1258 1985 Unknown [id number] 2.16.840.1.619983.3.579.2 .1259 Medicaid [facility] [id number] Private Health Insurance [id number] 2840.1.215896.19 Unknown [facility] [id number] Unknown [id number] 2.16840.1.531847.3.579.2 .531 Unknown [id number] 2.16840.1.630270.3.579.2 .531 Unknown [id number] 2.16840.1.082203.3.579.2 .531 Social History Date Type Detail Facility Start: 06-30-2020 End: 07-26-2023 Sex Assigned At [facility] [employer] Other Start: 03-15-2023 End: 03-15-2023 Tobacco smoking status NHIS Ex-smoker (finding) [facility] Start: 1985 Sex Assigned At Female F [facility] Start: 11-17-2020 Tobacco smoking stat us NHIS Smokes tobacco daily [facility] History of tobacco use Tobacco U se Types Packs/Day Years Used Date Smoking Tobacco: Every Day Vaping/E-cigarettes Smokeless Tobacco: Never [facility] Start: 11-17-2020 Tobacco use and exposure Smokeless tobacco non-user [facility] Start: 07-26-2023 Alcohol intake Current drinke r of alcohol (finding) [facility] Start: 06-30-2020 End: 07-26-2023 History of Social function [facility] Childcare Unknown [facility] Start: 11-17-2020 Alcohol Comment social [facility] Start: 05-04-2023 [facility] Start: 1985 Sex Assigned At Not on file P [facility] Goals Date Patient Goal [...] Pinto DO on 08/31/2023 11:23 AM [facility] 06-12-2023 Evaluation note Encounter Date Diagnosis Assessment Notes May, Diarrhea (ICD-10 - R19.7) Patient reports that she is about 7-8 weeks gestational Patient reports improvement on Creon with occasional flare Patient reports that she is taking a fiber supplement May, Fatty liver (ICD-10 - K76.0) Patient did have a FibroScan that indicates fatty liver and minimal scaring, this will be reviewed [email or web address] Other 11-17-2023 Evaluation note* Encounter Date Diagnosis Assessment Notes Treatment Notes Treatment Clinical Notes Mar, Exocrine pancreatic insufficiency (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) [email or web address] Other 10-31-2023 Evaluation note* Encounter Date Diagnosis Assessment Notes Treatment Notes Treatment Clinical Notes Feb, Alternating constipation and diarrhea (ICD-10 - R19.8) Feb, Fecal urgency (ICD-10 - R15.2) [email or web address] Other 10-30-2023 Evaluation note* Encounter Date Diagnosis Assessment Notes Treatment Notes Treatment Clinical Notes Feb, Alternating constipation and diarrhea (ICD-10 - R19.8) [email or web address] Other [facility] Encounter Date Diagnosis Assessment Notes Treatment Notes Treatment Clinical Notes Feb, Alternating constipation and diarrhea (ICD-10 - R19.8) [email or web address] Other 09-21-2023 Evaluation note* Encounter Date Diagnosis Assessment Notes Treatment Notes Treatment Clinical Notes Jan, Alternating constipation and diarrhea (ICD-10 - R19.8) WORSENING DIARRHEA AND CONSTIPATION OVER THE PAST YEAR. DOES HAVE SOME NOCTURNAL AWAKENINGS WITH THE DIARRHEA. CAN GO 4-5 DAYS WITH OUT A BOWEL MOVEMENT WHEN SHE IS CONSTIPATED. WILL ORDER IBS WORK UP WILL PROCEED WITH COLONOSCOPY [email or web address] Other 08-29-2023 Evaluation note* Encounter Date Diagnosis [...] no improvement in 2 to 3 days [email or web address] Other 2023 Evaluation note* Encounter Date Diagnosis [...] no improvement in 2 to 3 days [email or web address] Other 04-17-2023 Evaluation note* Encounter Date Diagnosis Assessment Notes Treatment Notes Treatment Clinical Notes Aug, Contact with and (suspected) exposure to other viral communicable diseases (ICD-10 - Z20.828) [email or web address] Other 02-22-2023 Evaluation note* Encounter Date Diagnosis Assessment Notes Treatment Notes Treatment Clinical Notes Jun, Contact with and (suspected) exposure to covid-19 (ICD-10 - Z20.822) [email or web address] Other 02-17-2023 Evaluation note* Encounter Date Diagnosis Assessment Notes Treatment Notes Treatment Clinical Notes Jun, Preoperative clearance (ICD-10 - Z01.818) [email or web address] Other 09-16-2022 Evaluation note* Encounter Date Diagnosis Assessment Notes Treatment Notes Treatment Clinical Notes Jan, Contact with and (suspected) exposure to covid-19 (ICD-10 - Z20.822) [email or web address] Other Evaluation note* Diagnosis Onset Date Resolution Status Diarrhea acute [facility] Work Phone: Evaluation noteNo InformationNort [employer] Other History general Narrative - Reported* Type Description Date Medical History ANXIETY AND DEPRESSION [email or web address] Other Hospital Discharge instructions Additional Instructions DISCHARGE [...] if you have any problems. -Office number [phone] Work Phone: InstructionsNot on filedocumented in this encounter [employer] SystemReason for visit NarrativeRED EQUINOX, ANTIGEN PROCEDURE TESTNoUXArmy Other Reason for visit NarrativeNEEDSNEGATIVE, RAPID COVID TEST FOR PROCEDURENoUXArmy Other Summary Purpose Family History No Family [...] section and content) DATE CREATED AUTHOR 08/24/2021 [facility] DATE CREATED AUTHOR AUTHOR'S ORGANIZ ATION 05/09/2023 [facility] DATE CREATED AUTHOR AUTHOR'S ORGANIZ ATION 09/22/2023 [facility] DATE CREATED AUTHOR AUTHOR'S ORGANIZ ATION 12/25/2023 [facility] DATE CREATED AUTHOR AUTHOR'S ORGANIZ ATION 12/27/2023 [facility] EPIC REASON FOR [...] Active Shun Hill MD Attending Provider 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 [facility] [employer] [facility]. provides no warranty or guarantee of the accuracy or completeness of information in this document.
[2023-12-28 14:03] VITALS: BP 122/73; PULSE 109
--- OUTSIDE RECORDS SUMMARY | 2024-01-02 07:03 | XMS_ITS | CCD ---
Author Organization [facility] Inform ion Partnership [facility] Care Team Providers Care Air Conditioning Coil Assembler Name Role Phone Maria Guadalupe Powers Unavailable NadiyaAydee anderson Unavailable Perla Márquez Unavailable Shun Hill Unavailable [phone] MD Shun Hill Attending Provider [phone] DO Irma Burt Primary Care Provider [phone] MD Shun Hill Attending Provider DO Irma Burt Primary Care Provider [phone] Shun Hill Admitting Unavailabl e Irma Burt [...] day for 10 day(s) Jul, Active amylase 642442 unt / lipase 36704 unt / protease 704302 unt delayed release oral capsule (3 sources) Start: 04-06-2023 take 2 capsules by mouth three times daily at mealtime Creon 98485-498252 UNIT 2 capsules Orally three times a [...] 1 tablet by mouth twice daily Sutab 9126-670-126 MG 12 tablets the first dose the [...] 5 day(s) September, Not-Taking 84 hr estradiol 0.89248 mg/hr transdermal system (4 sources) Estrogen take [...] URINE PROTEIN 170 mg/L High <120 [facility] Comment on above: Performed By: #### U PCR #### [facility] ([id number]) [address] [address] [place] [address] U/PRO/AEROPLANE PILOT RATIO CALC 0.17 Normal <0.2 [facility] Comment on above: Result Comment: Neph rotic Syndrome is associated with ratios >3.5 Performed By: #### U PCR #### [facility] ([id number]) [address] [address] URINE CREATININE,RDM 98.06 mg/dL Normal [facility] Comment on above: Performed By: #### U PCR #### [facility] ([id number]) [address] [address] COMPLETE BLOOD COUNTon 09-16 Erythrocyte distribution width (RBC) [Ratio] 13.0 % Normal 11.5-15.0 [facility] Comment on above: Performed By: #### C BC, CMP, FEPR, 2532-0, 3084-1, TSHR, 2276-4, 2284-8, 2132-01 #### [facility] ([id number]) [address] [address] Hematocrit (Bld) [Volume fraction] 34.6 % Low 35-47 [facility] Comment on above: Performed By: #### C BC, CMP, FEPR, 2532-0, 3084-1, TSHR, 2276-4, 2284-8, 2132-01 #### [facility] ([id number]) [address] [address] [place] [address] Hemoglobin (Bld) [Mass/Vol] 11.9 g/dL Normal 11.7-15.5 [facility] Comment on above: Performed By: #### C BC, CMP, FEPR, 2532-0, 3084-1, TSHR, 2276-4, 2284-8, 2132-01 #### [facility] ([id number]) [address] [facility] [address] [place] [address] MCH (RBC) [Entitic mass] 30.9 pg Normal 27-34 [facility] Comment on above: Performed By: #### C BC, CMP, FEPR, 2532-0, 3084-1, TSHR, 2276-4, 2284-8, 2132-01 #### [facility] ([id number]) [address] [place] [address] MCHC (RBC) [Mass/Vol] 34.4 g/dL Normal 32-36 [facility] Comment on above: Performed By: #### C BC, CMP, FEPR, 2532-0, 3084-1, TSHR, 2276-4, 228-8, 2132-01 #### [facility] ([id number]) [address] [address] [place] [address] MCV (RBC) [Entitic vol] 90 fL Normal 80-100 [facility] Comment on above: Performed By: #### C BC, CMP, FEPR, 2532-0, 3084-1, TSHR, 2276-4, 228-8, 2132-01 #### [facility] ([id number]) [address] [address] [place] [address] Platelet mean volume (Bld) [Entitic vol] 9.4 fL Normal 7-12 [facility] Comment on above: Performed By: #### C BC, CMP, FEPR, 2532-0, 3084-1, TSHR, 2276-4, 2284-8, 2132-01 #### [facility] ([id number]) [address] [address] [place] [address] Platelets (Bld) [#/Vol] 181 10*3/uL Normal 150-450 [facility] Comment on above: Performed By: #### C BC, CMP, FEPR, 2532-0, 3084-1, TSHR, 2276-4, 2284-8, 2132-01 #### [facility] ([id number]) [address] [place] [address] RBC COUNT 3.85 X10E12/L Normal 3.80-5.20 [facility] Comment on above: Performed By: #### C BC, CMP, FEPR, 2532-0, 3084-1, TSHR, 2276-4, 2284-8, 2132-01 #### [facility] ([id number]) [address] [place] [address] WBC (Bld) [#/Vol] 11.3 10*3/uL High 4.0-11.0 [facility] Comment on above: Performed By: #### C BC, CMP, FEPR, 2532-0, 3084-1, TSHR, 2276-4, 2284-8, 2132-01 #### [facility] ([id number]) [address] [place] [address] COMPREHENSIVE METABOLIC PANE Charles 09-17-2023 Albumin [Mass/Vol] 3.4 g/dL Normal 3.2-5.3 [facility] Comment on above: Performed By: #### C BC, CMP, FEPR, 2532-0, 3084-1, TSHR, 2276-4, 2284-8, 2132-01 #### [facility] ([id number]) [address] [place] [address] ALP [Catalytic activity/Vol] 71 U/L Normal 39-130 [facility] Comment on above: Performed By: #### C BC, CMP, FEPR, 2532-0, 3084-1, TSHR, 2276-4, 2284-8, 2132-01 #### [facility] ([id number]) [address] [place] [address] ALT [Catalytic activity/Vol] 11 U/L Normal 0-31 [facility] Comment on above: Performed By: #### C BC, CMP, FEPR, 2532-0, 3084-1, TSHR, 2276-4, 2284-8, 2131-9 #### [facility] ([id number]) [address] [place] [address] Anion gap [Moles/Vol] 11 mmol/L Normal 5-15 [facility] Comment on above: Performed By: #### C BC, CMP, FEPR, 2532-0, 3084-1, TSHR, 2276-4, 2284-8, 2132-01 #### [facility] ([id number]) [address] [place] [address] AST [Catalytic activity/Vol] 13 U/L Normal 0-41 [facility] Comment on above: Performed By: #### C BC, CMP, FEPR, 2532-0, 3084-1, TSHR, 2276-4, 2284-8, 2132-01 #### [facility] ([id number]) [address] [place] [address] Bilirubin [Mass/Vol] 0.3 mg/dL Normal 0.3-1.2 [facility] Comment on above: Performed By: #### C BC, CMP, FEPR, 2532-0, 3084-1, TSHR, 2276-4, 2284-8, 2132-01 #### [facility] ([id number]) [address] [place] [address] Calcium [Mass/Vol] 9.0 mg/dL Normal 8.5-10.5 [facility] Comment on above: Performed By: #### C BC, CMP, FEPR, 2532-0, 3084-1, TSHR, 2276-4, 2284-8, 2131-9 #### [facility] ([id number]) [address] [place] [address] Chloride [Moles/Vol] 104 mmol/L Normal 98-109 [facility] Comment on above: Performed By: #### C BC, CMP, FEPR, 2532-0, 3084-1, TSHR, 2276-4, 2284-8, 2132-01 #### [facility] ([id number]) [address] [place] [address] CO2 [Moles/Vol] 24 mmol/L Normal 22-32 [facility] Comment on above: Performed By: #### C BC, CMP, FEPR, 2532-0, 3084-1, TSHR, 2276-4, 2284-8, 2132-01 #### [facility] ([id number]) [address] [place] [address] Creatinine [Mass/Vol] 0.46 mg/dL Normal 0.40-1.00 [facility] Comment on above: Result Comment: METH OD TRACEABLE TO IDMS STANDARD Performed By: #### C BC, CMP, FEPR, 2532-0, 3084-1, TSHR, 2276-4, 2284-8, 2132-01 #### [facility] ([id number]) [address] [place] [address] eGFR (CKD-EPI) NON-RACE DEPENDENT >90 Normal >59 [facility] Comment on above: Result Comment: Reported eGFR is based on the CKD-EPI 2020 equation that does not use a race coefficient. Performed By: #### C BC, CMP, FEPR, 2532-0, 3084-1, TSHR, 2276-4, 2284-8, 2132-01 #### [facility] ([id number]) [address] [place] [address] Glucose [Mass/Vol] 78 mg/dL Normal 65-99 [facility] Comment on above: Performed By: #### C BC, CMP, FEPR, 2532-0, 3084-1, TSHR, 2276-4, 2284-8, 2132-01 #### [facility] ([id number]) [address] [place] [address] Potassium [Moles/Vol] 4.0 mmol/L Normal 3.5-5.0 [facility] Comment on above: Performed By: #### C BC, CMP, FEPR, 2532-0, 3084-1, TSHR, 2276-4, 2284-8, 2132-01 #### [facility] ([id number]) [address] [place] [address] Protein [Mass/Vol] 6.5 g/dL Normal 6.0-8.0 [facility] Comment on above: Performed By: #### C BC, CMP, FEPR, 2532-0, 3084-1, TSHR, 2276-4, 2284-8, 2132-01 #### [facility] ([id number]) [address] [address] [place] [address] Sodium [Moles/Vol] 139 mmol/L Normal 134-146 [facility] Comment on above: Performed By: #### C BC, CMP, FEPR, 2532-0, 3084-1, TSHR, 2276-4, 2284-8, 2132-01 #### [facility] ([id number]) [address] [place] [address] Urea nitrogen [Mass/Vol] 8 mg/dL Normal 5-23 [facility] Comment on above: Performed By: #### C BC, CMP, FEPR, 2532-0, 3084-1, TSHR, 2276-4, 2284-8, 2132-01 #### [facility] ([id number]) [address] [place] [address] FERRITINon 09-17-2023 Ferritin [Mass/Vol] 11 ng/mL Normal 11-307 [facility] Comment on above: Performed By: #### C BC, CMP, FEPR, 2532-0, 3084-1, TSHR, 2276-4, 2284-8, 2132-01 #### [facility] ([id number]) [address] [place] [address] Folate [Mass/Vol]on 09-17-19 24 FOLIC ACID 18.1 ng/mL Normal >5.8 [facility] Comment on above: Result Comment: NEW REFERENCE RANGE Performed By: #### C BC, CMP, FEPR, 2532-0, 3084-1, TSHR, 2276-4, 2284-8, 2132-01 #### [facility] ([id number]) [address] [place] [address] IRON PROFILEon 09-17-2023 Iron [Mass/Vol] 52 ug/dL Normal 50-170 [facility] Comment on above: Performed By: #### C BC, CMP, FEPR, 2532-0, 3084-1, TSHR, 2276-4, 2284-8, 2132-01 #### [facility] ([id number]) [address] [place] [address] IRON BINDING 580 ug/dL High 250-425 [facility] Comment on above: Performed By: #### C BC, CMP, FEPR, 2532-0, 3084-1, TSHR, 2276-4, 2284-8, 2132-01 #### [facility] ([id number]) [address] [place] [address] IRON SATURATION 9 % SATURATION Low 15-50 [facility] Comment on above: Performed By: #### C BC, CMP, FEPR, 2532-0, 3084-1, TSHR, 2276-4, 2284-8, 2132-01 #### [facility] ([id number]) [address] [place] [address] LDH [Catalytic activity/Vol] on 09-17-2023 LDH 124 U/L Normal 100-235 [facility] Comment on above: Performed By: #### C BC, CMP, FEPR, 2532-0, 3084-1, TSHR, 2276-4, 2284-8, 9 #### [facility] ([id number]) [address] [facility] [place] [address] Natriuretic peptide B [Mass/ Vol]on 09-17-2023 Natriuretic peptide B (Bld) [Mass/Vol] 66 pg/mL Normal <100.0 [facility] Comment on above: Performed By: #### C BC, CMP, FEPR, 2532-0, 3084-1, TSHR, 2276-4, 2284-8, 2132-01 #### [facility] ([id number]) [address] [facility] [place] [address] TSH WITH REFLEXon 09-17-2023 TSH 0.78 uIU/mL Normal 0.49-4.67 [facility] Comment on above: Performed By: #### C BC, CMP, FEPR, 2532-0, 3084-1, TSHR, 2276-4, 2284-8, 2132-01 #### [facility] ([id number]) [address] [facility] [place] [address] Thiamine (Bld) [Mass/Vol]on 09-17-2023 THIAMIN VITAMIN B1 See Below Normal [facility] Comment on above: Result Comment: [...] developed and its performance characteristics determined by [facility]'s [facility] [place] ([facility]). It has not been cleared or approved by the FDA. [facility] is regulated under CLIA as qualified to perform high-complexity testing. This test is used for clinical purposes. It should not be regarded as investigational or for research. Test Performed By: [place] [address] Senior Treasury Analyst: Colin Cisneros III, M.D. CLIA #[id number] Performed By: #### C BC, CMP, FEPR, 2532-0, 3084-1, TSHR, 2276-4, 2284-8, 2132-01 #### [facility] ([id number]) [address] [place] [address] URIC ACIDon 09-17-2023 Urate [Mass/Vol] 5.1 mg/dL Normal 2.6-7.2 [facility] Comment on above: Performed By: #### C BC, CMP, FEPR, 2532-0, 3084-1, TSHR, 2276-4, 2284-8, 2132-01 #### [facility] ([id number]) [address] [place] [address] VITAMIN B12on 09-17-2023 Cobalamin (Vitamin B12) [Mass/Vol] 185 pg/mL Normal 180-914 [facility] Comment on above: Performed By: #### C BC, CMP, FEPR, 2532-0, 3084-1, TSHR, 2276-4, 2284-8, 2132-01 #### [facility] ([id number]) [address] [facility] [place] [address] TSHon 05-25-2023 Thyroid Stimulating (3Rd Generation) Hormone/ Tsh 2.200 [facility] FRM Study Course System [facility] CT abdomen w conon 3 CT abdomen w con [facility] [place] [address] [place] [address] CT Scan Report Signed Patient: Laura Alves MR#: [id number] 3 : 1985 Acct:[id number] Age/Sex: 37 / F ADM Date: 04/10/23 Loc: CT Room: Type: [facility] Attending Dr: Shun Hill MD Copies to: [...] M.D.04/10/2023 4:03 PM Dictation Location: [place] [address] Transcribed By: [facility] 04/10/23 3516 Dictated By: Stan Owens DO 04/10/23 4650 Signed By: 04/10/23 1601 Normal [facility] HCG ( test) IA.rapi d Ql (U)Ordered By: Shun Hill on 03-15-2023 HCG ( test) Ql (U) Negative [facility] HCG,Urineon 03-15-2023 Beta HCG ( test) Ql (U) Negative Normal [facility] Comment on above: Result Comment: PERF ORMED BY: [address] [place] [id number] PATHOLOGIST DRAW STRING KNOTTER MARINA AYALA M.D. Performed By: #### U HCG #### [place] [id number] [facility] 03-15-2023 L Specimen: [id number] Received: 03/15/23 Status: BUSTER Alfredo Num: [id number] Spec Type: Surgical Subm Dr: Shun Hill MD Tissues: A Colon Biopsy (SURVEILLANCE BX) Procedures: Deepti CHILEL/Pierce L4 Age/ Patient Sex Location Account Attending Physician Laura Alves 37/F [id number] Shun Hill MD SPEC NUM: [id number] RECD: 03/15/23 STATUS: BUSTER RAMOS NUM: [id number] SUMIT: 03/15/23- DR: Shun Hill MD ENTERED: 03/15/[address] [facility] [address]: SPEC TYPE: Surgical DEPT: S ORDERED: [...] The microscopic examination confirms the diagnosis. Specimen: [id number] Received: 03/15/23 Status: BUSTER Gonsalez Num: [id number] Spec Type: Surgical Subm Dr: Shun Hill MD Tissues: A Colon Biopsy (SURVEILLANCE BX) Procedures: HE/2, Gross/Micro L4 Patient: Rick Alvesy [id number] (Continued) Specimen: [id number] Received: 03/15/23 (Continued) Signed (signatur e on file) Winston Donis MD 03/16/23 1737 Specimen: [id number] Received: 03/15/23 Status: BUSTER Alfredo Num: [id number] Spec Type: Surgical Subm Dr: Shun Hill MD Tissues: A Colon Biopsy (SURVEILLANCE BX) Procedures: DUY/Yaz, Deepti/Pierce L4 Patient: Parminder Alvessay [id number] (Continued) Specimen: Received: 03/15/23 (Continued) CPT Codes 12815 Specimen: Received: 03/15/23 Status: BUSTER Gonsalezvanessa Num: [id number] Spec Type: Surgical Subm Dr: Shun Hill MD Tissues: A Colon Biopsy (SURVEILLANCE BX) Procedures: HE/aYz, Gross/Micro L4 Patient: Laura Alves [id number] (Continued) Signed (signatur e on file) Robbi-Tyrel Donis MD 03/16/23 1737 [facility] SARS-CoV-2 (COVID-19) RNA NA A+probe Ql (Resp)on 01-16-2023 SARS-CoV-2 (COVID-19) RNA GEORGE+probe Ql (Unsp spec) Positive [facility] Other HIV 1&2 AB/AG Screen (P24 AG )on 12-13-2022 HIV 1&2 AB/AG [facility]-Reactive [facility] Hepatitis B surface antigeno n 12-13-2022 Hepatitis B Surface Antigen Negative [facility] No Panel InformationOrdered By: Rae Agudelo on 12-13-2022 [facility] Rubella IGG immune statuson 12-13-2022 Rubella immune IgG <0.90 NON IMMUNE [facility] Syphilis Total(Unknown Syphi lis Status)Ordered By: Rae Agudelo on 12-13-2022 Syphilis Non-Reactive [facility] COVID Quick Testingon 2022 Result Negative [facility] Other COVID Quick Testingon 2022 Result Negative [facility] Other COVID Quick Testingon 2022 Result Negative [facility] Other COVID Quick Testingon 2021 Result Negative [facility] Other Consent for Treatmenton 05-21 Consent for Treatment [email or web address] 0 [id number] 318#1.00CD:127 [facility] Coding Summary.on 05-28-2021 Coding Summary. CD:[id number] XVa9cSn+PGhlYWQ+PE1 VBVWdN53jdYIqfB6HY7 jGBY4MAXVKMRBSGB6GQ A1tuJD8ULrlH5CzstTa NlkryFSjYQ19ITs4UCP 7rOedEOyycP6yvHHqS6 p4DrLlIC49qI91BJseD PRcFhL6ZiBmebmygGBq B2yzJnPhhVGvIch+PHR hYmxlIHdpZHRoPScxMD YqZuCmrHmiOB2nBj2nI GVyLWNvbGxhcHNlOiBj a8snHTVvZHzdXZ9cpBu tK2GzhHS9RZQsg1e6Bi 48dHI+UBYePSF6eFyuS Xdik256CyWlq7uhEGI7 gOJyPDglBTY6B93xv2R 1ZXNnOGThERN6yQJ4pI 2lrDfsbtweH8MyoMHrD xZ8TND6hTRoiX7ieAgr cnbimG0zSif+U07HCF3 VEEBIKK6UXfy6D4NhTm wvdHI+AP54QPJiFC98e IAigEKgd2pkbXm1NtAg TEGqWNI7kUriBMdge5S bVRFeC90noSIyt7R1VX ZvoYszfRQiCiZpzZD6u U9mYKyctelpw1yrrdxy Pphqj1mlvy95zI09Z08 jUZgqRMRuQLN1GJWwPF UgaOplml3xdX8hJx1+I Mark8nxw0ketQj2JtDk HKJigkUdsAqyRQL8h3L hAk83Z6YimGjte5FePc r5jl58qHZor9M4cXX3V BcyRETfqG8dAAbmCeO6 VHXuWyRnbM50uQKzAMf fUg5tyRicaWawJA3gHJ DractqFVOcuK4vQQJrd TPeiQbrYE8fSMVcwpar s486UgEjRDN0ISLupAI jF2WtcD3rEiYkVFExGT QuA8GsqDCuNOhnL180W QdmJaU9OQGvhjUiH3Vo FHEelLwzAaV7k7B7Zr4 Ac3FpvbraCNB4FGvgXV FuMeN9LuTlJxR1X4GdP el6CNEybVbjAE2aE7Gw TQZivscdbgjwzWO2GMD kOITatF65aGCdFNccHi 7sl3Z2u692KEEeZRWfo V62Iv7ncDggNEZdgVWD dC3nynzmk6hxcszoAgC iKCPoLUn1EXg1ORGglG dlXgVdASP0QqV8YLR7o WEpsJ4biGirzmwneA6y Oyc+N62unR3yEYQ9UTE 3jhcsVQNickMbCF81VD 77K9BeLkypxSDflRV+P MVvfyJqzUuwME9cIdHm h0vzs7EyDLyzY9TcKCZ oGZpyHnd2PBPxPYV7jN K1uQ5zEEPuUKibm8F6y WA6G4IdmbGmom7dr3dz VUOwDCdkE61lhFWje8L 3KMVxbFY9HUHtaJumVp FdgZ50Iau+PGNvbGdyb 0ZhJxghi4ukb6xbmMx6 IjMwJSIgdmFsaWduPSJ 4g5UfCy83J77jMLivLQ RoPSIxNSUiIHZhbGlnb v4xfV5pRp0+PGNvbCB3 hPX3iK8bICIsHjL1YQm gW072OgRyrYFjExjiq9 jki2ijfWr6MsKiESWku bWufTsoIOO7s0RtMx07 Z61mRToiLSKdCQAqWSD iTGIetChtvs0stH9bJh 8+LA6fa3yyzq59uK47g HI+CWWuODF0mExlRSmk FXQvqT4kQIccJvF3KFA mSoZacB20uMWsVFxxQw 3ejTrmrAsiYY9fNTBmz xtsc680CqMpz4xjABBt xUIwCEqyUTK3V86fh0D 7JPInJDOpJFI1dRA2qF 1hbGlnbjogbGVmdDsgd aUrjYeeDWvpVIhpQ387 IHRvcDsnPlBhdGllbnQ bCpLoJKu8J4WqOih8FS LxhButZQ8iaVLiCVacA x6xfXzyxKykNK6vTGGz voocr032SnNpq1mpMUU jiWLgKBihGVU6J02ci3 U4DBJqQYIpACL8lHO3v S4zzTnvmuozrZEflItq llBfpOwpRBlgRJlqQ42 6IHRvcDsnPkJpcnRoIE IpjFO6SU44ZN43dACdp 6I9wDP0Q4RpIWMomgqf bsbehXO9MORpJROzoY7 8Ar9hkQgxDa2aYIYeDN U9UQOnnOLjJ4UowR5pM lZpQEBmOEHoB0AtzZHd BOuvR591GCvgWbA1MIT terOuS0NkPNRgiAspHr M2y9W6Jp2ZY5T8ON65G J52mXQco7O8iJP8V8Oj ORCvdsmgcfripWY3OEN dNZBhxF29Aw5xrVouWy 3oEHHpHEU1TXXlzECfJ 2HddZ0fUxSqYBWaVZHi M8SprCUdULxmB086NTq lQkX1KARtvoXdJ3YyGA PehRisDoE3m3C4Gk0BQ Oe8JC74OT60mPRhh9F8 nYJ6Z3UdUHUwobebxgi adDD5SHGvFMKjeX11Tr 0dqGrqQg9zTSDrYWW4D HTunFYhB1TflR7uTqYa ASLiZGWkB3PwwSCqWWb zZ795DCnfWpJ0QTPyad MaZ8GmVYPsnRsgPxH0n 7K0Tb7LZXOxBR35FWA0 cXY3XZ68GD75B3VkRco vdGFibGU+PHRhYmxlIH dpZHRoPScxMDAlJyBzd FlzQN5uAy7cNCOnZGHq zOtrwAPhGvGzp0dgMQN pMEjwHI8lkCnwF6DpkT K1IAXzh8i2Vh91X13vQ 3JvdXA+DNKptSF7sID4 fX3mAgZwNlI5CRulA58 2BiAsuMAxJisag3mhi9 ycyUy0PwJ9FOFacuRxq ZuxIFI7i2JpXj61N39w IHdpZHRoPSIxNSUiIHZ iqBmvtn0kcO3fHt9+PG CrtPQ2lJG3eA9kArBjC yS6QEhwM319QgTotTYq Wnxdx6qbq6qapPl7FhQ tSKPtszWgbYvnRLZ1h8 YyJv80S7HhcPphp8GgX jb9pj27zGPon4S1wLL8 C1KyZPScdwaceBUnsQh lSX9dRIYknzfmTSZvvU 4fUQWeJ9a4PiIpNbE8V ClrJ5HvamS4DVWecXSn PHcsOLY7E81gt4I7OYZ mNWFjRET8gBD4hS1apT lnbjogbGVmdDsgdmVyd JvnOKefVCjqP206FYYz yFvpHEZsdZ9lFOKovKD avTwfSZ5fCFIltzirMm rCZT2QDYHFXoiwLUtIX HXOBMDJUW08CP74lVId i9U3dLR2L2XiPGExgne jjuxlsOJ3GYYvQNKvjL 09zQFpJOwsAr3wv0B8c 706TSUpNHEouV63Sd8i zJwzLICecZBHjD3hiwb vx0bgzmfiRwQhUQViPF o0HXz1AKRrpPnoGoZmP GB1KoW2YRN8jWDscP9m lTzyobtiiN1rItw+MTI bCVkxPEz5QSogcFK+PH XgIUI3lZsfWFdfLQRtd M5dUHDjW0e3VlZaQtP2 CAzvN2KfTQSxmigxLz4 1jU5gRsQyXqB4DCpaD5 MleyT6ONNxiQYaFAgsO AU8D74gp2R9ELLuVEXy UMF5yDJ7yJ6kiXcpyuy gbGVmdDsgdmVydGljYW zxRAolU146CKWllSpjJ oE2MJxcBCSsIA43RN14 xUIdz2Q7uAU3J3VkVOU nhkeodjjinWA2DJXePL BgwP62sYEnHOwlKe5aj 2P9y775ALXkLVFqkD75 Dw0ifMspRVVsiCRGzC9 rkoyij3zatkdxViTzGQ RnOZo8ILr5GSWltBebJ sKfUGF0TqA8NUK3iTSr aZ2viNparlqtsS6zNnj +GxPoYWxtIP35EQ10lY Cdu7J1gRP2B4SbPLRlv srwamgglGQ4VTUwKJKu sC40nAVyQShfAn8wo6D 5i205BSPtAHCntS15Zl 4tbWuvJOVnqNMZmO0pq icef7ofyhkhOtVdRLSl UOo7ZRk4EUUhfVfwFxA nBQC7YgD3HZG4lCPeqG 0ypQedbzfkkG8nEwi+U oUvvVYcfC9fKE81QS67 P8CjTbmlgAAgaPK+PHR hYmxlIHdpZHRoPScxMD AxHvUhvVluEQ2qQn0iO GVyLWNvbGxhcHNlOiBj t7ouQNXrIJqnIQ6jnCf uM0WnpOE8IMBdy5o5Cg 78P98bR4MoeSF+PGNvb IE3dKQ3mV1lGlMsTmJ6 NSplZ723CaCypUFhPbs qz0zef3qfwDk7SkSbIL JtjjUcqJqgEHP2u4QjB o04V20qCAlkBERcYWHd YVJeNENbqKygah7lnW0 wIi8+NZItxYU7wEK6eQ 8zEhMqDdY0DXkiK587Z yGegYThDyjjY42pR3Iw dXA+HDDhAyv7HVUkbWr hNG8yyGDqYGvjHd5iHH X5JnFoLbMeSAcxK9AsO QMqvxkcrmkorKU7BFTv CLExwC96Fu1jhIlbJb9 vHQMgWCZ3WSCfmSRyZ4 PbqQ0jBeAlQOHpRKVfJ 6AseRGzQQxmT023RFrp WjJ8NGOmxxSdE6GcCIJ iuXwjAfW0v7L5Ms0VfT fqeGXoWE3lNoPrPCo3S 0BfTzg7PZRmmIvmYO9y lXHlSOipDf0lvGtlpPt wKQ6kUSKbytumm884We Ime0jiLLHbwAGbJDzqR XG2I74eb5D9SOIhLWWl SEX2nTX9bE0bnZqvrnq gbGVmdDsgdmVydGljYW apASfoW204NNCfcAydE xLCTve1U0VfHce5TZIi cRanES1ttKAjFKhuMf1 iuPpkiRceQQ7fRBClpi oto790RcAzp7nyQSWnm BFtOXujAJK4C83uc6I2 QPYkSWLuQIT6uOP1iD8 hbGlnbjogbGVmdDsgdm SdaZyaHTakOUtgN140U BAkeAomEv7SLcz3A4Ee Rbm0ZURwgKmlAI9rsOW uPYnyVk3xxXnmwIqdMQ 6gSXKjzzszc998HzLlo 8dxPNYhdZMsGEplSPU2 R33cb3T6ROTqCPQlUCJ 3jHH3kY2jlNdbsmwzyU VmdDsgdmVydGljYWwtY RffX580VCUhcJyoFsKo eWVyOjwvdGQ+EW90kk0 1Q7HqMwadDba5OHZfRS C8yPQ4wL4mANHjAZgxe 3G0hYM7L0IlvwTcba3s b2xs (more content not included)... Normal [facility] Priority Order-Juan 2021 Priority Order-STAT Comment Invalid Interpretation Code [facility] Comment on above: Result Comment: Rece ived Performed at: [facility] [address] [facility] [place], [place] [id number] [facility] Mina Jones Performed By: #### S ARS-CoV-2, GEORGE, [id number] #### [facility] [address] [place] [address] SARS-CoV-2, NAAon 05-25-2021 SARS-CoV-2 (COVID-19) RNA GEORGE+probe Ql (Resp) Not detected Invalid Interpretation Code Not Detected [facility] Comment on above: Result Comment: This nucleic acid amplification test was developed and its performance characteristics determined by [employer]. Nucleic acid amplification tests include RT-PCR and [...] detected) result in this assay. Performed at: [facility] [address], [place] [id number] PhD Shalom Gonzalez Performed By: #### S ARS-CoV-2, GEORGE, [id number] #### [facility] [address] [place] [address] Family Medicine Phone Visit - Telehealthon 05-22-2021 [...] 6 months ago. Has been using DayQuil [id number] with moderate improvement. Review of Systems Fatigue: [...] communication with the patient located at [address] [place] [phone], with no one else. If it is [...] Patient verbalized understanding Ordered: Rapid COVID Antigen ([facility] [place] [place]) Telephone Est 5 to 10 minutes [id number] 2. Fatigue (R53.83: Other fatigue) see above plan, rule out covid. Ordered: Rapid COVID Antigen ([facility] [place] [place]) Telephone Est 5 to 10 minutes [id number] 3. BMI 27.0-27.9,adult (Z68.27: Body mass index [...] 1035F Telephone Est 5 to 10 minutes [id number] Follow-up With When Contact Information Irma Burt [...] Methamphetamines, Pre (more content not included)... Normal [facility] Comment on above: Result Comment: [...] height. This can be done either in [place] or metric measurements. Note that charts are available to help you find your BMI quickly and easily without having to do these calculations yourself. To calculate your BMI in [place] ([place] measurements, your health care provider will: [...] problems. ? BMI can be measured using Swedish measurements or metric measurements. ? To interpret [...] Reviewed: 03/20/2018 Elsevier Patient Education ? 2019 [employer] [facility] Physician Orderon 04-27-2021 Physician Order [id number] 8#1.00CD:127 [facility] Coding Summary.on 11-04-2020 Coding Summary. CD:[id number]:[id number] OOp4wDd+PGhlYWQ+PE1 JCLPlE80taYAwyA1LS7 cFPW1BQQYHLEIQFX7TY M7qvQU6TNasY9ZafrTy CwpnjUXpGT28KTy4LVH 9gBtkQXichD3nzIJkM4 f4ScAvPJ30sB98YGegT UGdCqK0BmCbyblhxARa C1bsCuVmvLOmGwb+PHR hYmxlIHdpZHRoPScxMD IeBdRtbKgnDQ8sZe4nU GVyLWNvbGxhcHNlOiBj d6cmFDFiLQqmBB5mcIt sR1GpeAO7JZVkn4y8Wb 48dHI+KJBcVEO2iOkqH Btui499MxVdn2lzLBF4 iAHaSYdlBAA2L47yk9R 1SFFpJORjZNY3sJH8hG 7agYoxujqwX5WbnTOfL cX0TRR9iCSybY7adXzh yogckC7eKqm+U07TZH9 PACHIXF5PChp1N4XaAe wvdHI+PD66WOAzCC62u TWluDTwu4tlvJt7QpFv AGLsIXY3gZmrWNrcu6O uGMBfT70huKHci5Y0SE KwpNwjdLGaJoLxrOW3j U6uHMcdyryoj3hotbnr Xjyxn4ryuu55sO51D47 pSQpaASDsDEN0LKObPB EpzYgwix0vzQ1pTu9+I Dxac2ezm8jrgTs7JmQo SNUwcaPwyTheDVN9x1L eAb01B2RitAgmt5RkLi q9ly06yGIpd8V8cSN5V BusYOAuyH9fOXesFmL4 RCQnEeRqzU68kCRdXMt xNr7kpHobgWpsOK1bOY VhzjjgSNNqlJ9lKBLzy NCxiVujOU2wOTKlapof t999XgBrNUZ4BGEbwFC lW7XsgO0kSuMsUBJaLT WjD5LltPQgDDhuI961Y PwhCoB3NLDkzyCoB4Ue YNBhuZsqWpU8g6T2Vc5 Om0AzknovRUD0BDokBC V0DyP9MvMkGuT8W3YhZ sx8TTOonUhiCA0yO8Ab VGYjksrqpopklNZ5YYM sDMNipI11oTThDCbySr 0ih3C4m698JUZkAQMll W06Cy9ddBwwZFNyjYVL zK8zphztp6qgdpufPhP kLQKnGIl7TNx5XDJamP dzScStJMU2HcY2FHE8b DAxeQ7gwJccznbnnI2v Oyc+N97bdJ9uZOC2XTA 1dyfsHPFvjaOtVR90BN 01J1PpMwjirKEmlLC+P KSccpQnrLbvJY3aYqQk e3lbb7GyHHjbG2MyXLX qNIfvDry0KKBzWMK6qJ G0pE4nIYFnUEdic3A8k FH7X8UeilPfkz2qf2gb ZDPrTPxsL86yrNWzu1F 5BGMhaPO1MCZksKhyXz ThxJ65Zkd+PGNvbGdyb 3DwMwowt2nfw8zztIk7 IjMwJSIgdmFsaWduPSJ 4n7OwYw19D83bZIcrOO RoPSIxNSUiIHZhbGlnb y6jiH8fJy4+PGNvbCB3 jLY6pC2xIEHuTqR5LIl eC284BfKtfMZwSmpxd0 gmq8qmkKe0GhFsPOOih aNlcUioOGZ5a8DuMm51 W84vLEpoEEOuBZGgUFZ nFCWnzMnmcv9tsY8iVh 8+RB1vf8rpzn40lX24i HI+FMIjSZU4hYktZXmg RFXadG2kYCogEtM1USI sEyGirD66rOCuTXxrZe 0lsIvzgCopAM2bBLHuo iyjo817QlDmk6fpHAQb qUEbZOnlADQ9J82tt1S 8SXVxBFSuEDN3mLM7uI 1hbGlnbjogbGVmdDsgd cCrnIoeGUajBOmfM364 IHRvcDsnPlBhdGllbnQ vKfEwNRo8O7KuYll1YW CrfNjdTR4atYUrCKzfP j0lvGfcyBavZC4uVVIx ioyyc351BiMjn7rdHIL xuXAoYAsaGDO5W99kb3 M1BHXeIIRsZYT7cZK4p C0mnWcogumvlEFoaKpm qfUwrSgqJZqlZVdhO54 6IHRvcDsnPkJpcnRoIE GznOQ2KA31QQ16yBUkq 3G8aQX8F4ZrVMIuyecn wzykyVQ6LMPcHDTemZ0 3Nd7qrMmdKk0zVWEwAI D4XEOlcXIrX0OawY4wU oGfHFPaIJPfN0KksZYs BXmdU568ZAouBjY3WZM bicVuN6FvJNKotNrvMd W8v9H3Sm0RA2D9KD26Q H12qCNno5S5gWP3E8Bm KNCxcnlexcpszFE0HYT wUZDsbP37Qo2okGqqBd 4fGOMlYYL0IHUomPZuM 2HfyG1aFeSfXQNkNRIm I4ZmhNRpHVhtB859BKl yKsO9CPYvdoNaM0HhZL BjvGoeYkI4y9S3Ta8UV Zg3WT92YZ03rBZjq3W0 mMH5A4EmPTDtcawqrkp ndCU6LRGhLJMncT21Xw 5jwKynWn8yARCdDTB4B TBtbLNfQ3ZhrL3wYqRf AOBqAKEkJ9BahJUkXRs kX206OGlsPgZ6TCPbkh RzW0RiZJCjgJvsKcL3x 4D2Gt4SFWLqRI34LHX8 dXP9PV75BH24K9RmOul vdGFibGU+PHRhYmxlIH dpZHRoPScxMDAlJyBzd UexIQ5vTg7aTRQoJJIb sFypaNUnNxJhr1wuXYQ oPXodCQ9shEgeT0NnrW I9GMRey7y8Gl95H68xC 3JvdXA+BLOegUD0yRE2 wW3kLsKyAqD1SIxvX24 7QcSdvSEiBclsp3nfs7 locIy5QjW1DTAuyqBzy JszLGT4s1UkNk11H15p IHdpZHRoPSIxNSUiIHZ haOlkev6rrA3lNs7+PG JdzSP5rXI7yY3lUmYpC qE1QExuQ390MsZcwUJv Agkgu2gxp6ehnAv5MnR wVBAfscFgvSgpTHR9j2 CiIy82N7CghWazi2GjC zo6ee50pXHhs4V8eYF9 V9JgRJUavxbswZDfdFg wGX3sUNBwgramMQYaeX 1ePBRaG8l7KjMiAaG8K QgfI9JzicD4GZCckNIo NTxqJUZ3T43sg3L4MLG mGULrANS9lEO6qM8waZ lnbjogbGVmdDsgdmVyd RmqTNspFTrbA798AUUc wMshLBLwoJ6cTZHrvPJ ayPpoNB4kZNTrvaiaAb wINV7WMSSNComtHIfTI CHNRQRHJS16HK37yNXw s1T0gSF4K4GrCUGmxve ebyqayWJ9ZBXsVWYphI 47wFRhWWigRb5sc8L3t 753QPOrWWXitZ61Qr7v bWfvIJYzxMUHjD9cflj qh9vfkptxHxKpIHRvKG l9CJe3ZIFptQedSaSyV CW3IdE2YWQ9nBXwyP7e sOuihuifnD6uPqh+MTI uWIrkSHw7JIhpaRN+PH TnUZA0sXjpNSxwKPNsr J5hCOToY0f5OrUmSkA7 LPnbB5GqABOqbxbbIz2 2cW7fIoZoDxY4ZJflL1 FxtjA9JWMgePRvWYlnP HG0E80qv3V7VVMzRLZc CNM9gCM9iP1mdOznzqr gbGVmdDsgdmVydGljYW yrNKwyM216EXNujZggL fC5RJuxNASxBT38NG04 hGVxn5M1dEU5V3JzRFI dpesjzyylhIB6FSDiAB OrkK69xRHrQXlpLj9fq 9D0f246NQGtTPVutD90 Nv6naEcrNUAlnMEGeD0 uhwfop5daemvfZgUnJT MoLEj4SFb2CILcjBxvR aZpIEZ9CaQ1RVW9zEXn rA3xfDehtexuzB1hLnn +QqLbZMojVN21UP93dV Syj1K4xMI6B7YmQDHzt hrcclrnzQU1OOKfDTOs zI38bYVrFMrbLk5xm2D 1t207JBZsFXWryB13Fv 9heLijMLBezAMFdA2cw mlou2nojzmtCqAzTPHi SFy7KLa2PUYoeYjyRoB kFJD8KpN7GYP7rFUgkI 0doPwahvmseS7kKsr+T 0D3iPG2yGTmnWhdiLY+ WK91rh23B8NsYygfNor 1DLUqDXY0mBM7oC8jUM ZoMEizl7D4vXF7T4Ahi xMpog4ab1cqSETmFPee S57ooYZed0W1VHTiiCQ 1QXOqzRvwOsQarO35Dx c+FRBqoWcwc5AvZnezt 0wvv4gheRf9OaVeWNIq ioEizNpkUNS5m5VaXd8 6U72qVFkgKZBkAXRhZD MxXBSabZooln8ekH5xR i8+ZCSpuES1kEA8cH0e MvJjDiQ0GNokS002OyW raACdLluhz1bhd2qdxN a3TmRqUKOcteWqlXwuI WN4m0YoPe48L7ZtyLbk j1IbGvm1ak95wWTpa5Z 1gJY5I7GpFFFryqmapF JwlEmlNZ6gTKNhznksB WMswB0eYMGbT7y4VkFb YiH5AHitZ7ZsumS2BJZ pzVTeXSJxaLMLoY4emd qgl0ixgsvpOpPsMJHjZ Vo4LAh3OUHyxMzaSgXo EIU8PrY9UZZ3gURrsC0 aaXkternxnY3cOnj+UG s3m4pczGZmAY3nwDS5L I86MQ98fKVtm0Z3fFY3 P4FjYDBpxphnpfkusKS 5JBIjUCIutL19Uv3ysD ekOp2kPPSbWCD4UUEqi RWoC1IyxR2jAtGnEMRc JUNwG5WjzGRfCNykZ36 3FGezScF9XMXtrdMyW6 DkTZShhGxmKdD0d8T6O a1YTY31SI31XW38uQHc t3M3hQQ3E5RrDBNgwpv cgqjjlGE7KRXgMCZbkI 41Wv4qvGsmMq8uPBMmZ HX8QWWftVBhO1TogU7m ZlVdMHEcSOAkL6YihTM iQInmS056SDqxJjW4YV AozjPbZ0VlSKOscDmtN mZ9k0R0Rx6EBe09NU30 CU79kQSxv5R7mFT9S4B zCHMifawalxnpaBM6OW LgVBFwlJ76Zg9ilZcvV b4dUAQtLRM9WLJvvAXi T4AjeJ6nNnZnVIHkAHC jB6PmmIRdIMqyX495PT ngEfG7TSDrvlMyH5GzU TDeyWqzYuL8v8K9Jy1L PRzqfkt6A5IpKhvdgRG +SX01XBRyWR69pJGgwH Hbs3yxnNq7ZcJrCVPvP RI9tRhhQHymg7OgEJHm Y29s (more content not included)... Normal [facility] CT Chest w/ Contraston 10-29 [...] ml's: 100 Normal Flores [facility] Coding Summary.on 10-28-2020 Coding Summary. CD:[id number] EKi9uVp+PGhlYWQ+PE1 YNRMgK35zuLAblB2MM4 cXVE2CWSJLSHDRQX8QT U0vvGT7GEceK4XjokNn XlnuqGYnXL91ILl7OUB 2hAcpETtqqX5ybNWnA7 d5KsLlVM59hY75FZlzN WAqRuM9HsAxslhdiOIj R8skJdAmiXPmUrp+PHR hYmxlIHdpZHRoPScxMD NnSoLgdDjfUD5qYu4lH GVyLWNvbGxhcHNlOiBj g9ikOGZhUHecNR6isBc wE2OoiAI9VECgn4l7Gh 48dHI+JFXzRXF5uNcjH Zuzq659WlJcm6psQTU3 xATuDVefCMA6F51hv1F 4CLXtYUXnTEG3uZL7vX 5dcEdrbcceE7WmrAOlA zB2PIP1sZLsdL4koOpv hbbxrX4kDcw+T95MJA2 KJQSDUS1XGad2H7MhCu wvdHI+UU24LILaIA92h PUzaIZgl5vxpCz1OwBh UUPvLHV4pWjcSKsfj7C nRLBmM89coLXvr1Y8AK YhpPfugBKwOkOjcKF7r I7vSKrrrjxri7epdcsb Ovzts1ivhb65mW53N05 bLQjoNRJiRPF9JYQxJM FpmVkprj2azT4dKc3+I Ozpw2rqg4cowQf7EsRf CIPzmrGchLcxTDN5o0V vXr25M6GwlAixa7PaWs h6zo81nSZtb7Y1tFK8J PisGBBnsS1eKBydCtS7 DFMuOzGmrB41mNZuNNf iMz5dbBmkoOrvWF6iQY GowvquSGGtiN9aTSVjy IXyvBovEI5pRBZdggkw v139ZnOpUEM7KZDanKR dA9JsbN8cQdTjYTSeAP JiO4ZclZUyAEaxS316A FplXqK4YELfkgAkD1Sc BOPmeQjvNiL9l1J0Zn9 Cj2IdkpmpIAB5FBaePU I7FrHbYkNrQeE0S7WrB ve7BPGwoOrrHP1zN4Zx XFSvdpfwanjfyQR6VDT lAPZitK81rAHaFPbfTv 2qu5U4j527FPZjRATgv P14Ao8uhEmtGNFdnVAQ rG0oxbijz2jflhjeSpN wXKHxWXx2KBs5DKSqzL maAvZtJXD3ZrV7VBD7k USnjZ1sqYfijugajW0e Oyc+I97vvG6qXIM0ZWD 0xlkbJTLyomTfBG71WF 37X0NaHpumqGHzjJY+P BIqbvCzsPlxSW7tKxWf m1lou3NkNLrdN6RtUYK zGRtzQdw6YHIdAZJ5hU Q3pE8xJXAjBUvhl7S2j BX3O3PgaaRwlq5bt5by BHMmXIqtP96tvQAal7A 8MNQjaZW3XGTajLfyJq LijP58Oso+PGNvbGdyb 2BwBthzu4iww2jneQm9 IjMwJSIgdmFsaWduPSJ 3n1ZkJg01N17xQZyhTE RoPSIxNSUiIHZhbGlnb y9amS6uYp5+PGNvbCB3 iTY4eV1cAEGeAqA4JOc bQ293NmQbpVStUgohi3 ytb4xdbOg9SyDpBFYmw gYyfHmjVRS2h2SlGg49 D28cXCbuFRPiLTOsHQO bLUJveYrkcm2xjC7xGm 8+QO7il9lath12oG69p HI+XBUrPYD6zIlgMDyj EHWnfM7hJNrtPyN7BNN gDdKqjT33jRPqGMbpQj 8vqYoscJutQD0zEBErm ipqz782LuCgj8aqZZDn zVTdVGzmLJH5D66zk0U 2OYZmHLUwTQN1jGY7qE 1hbGlnbjogbGVmdDsgd yKteZbtOBbuVVgmU735 IHRvcDsnPlBhdGllbnQ vSsScKMh3K8HoVqx7MK JzjGjsNA4hrNLkYRzhN f3egHnvmCbxNQ1dXXGn slthb433TmMfx2gzACT zyKKsDWmsRCG5S48kz5 L9PHOgYEQaPGX1eYU8y P8ysZvjpjcpeNFpvIkp ixXocYjoGRzzSFaiH34 6IHRvcDsnPkJpcnRoIE MakLX8BB96ZO90qMQss 4C2uYU5S2AyFCDhhuff ihlieOQ0YXSiOQKgjI4 0Nw3lbRrqLn7qAKAqWM T2IQBqmOYgB1DbkN9tB vSwAZUpOKDlF7ZhpMOz FFfgH470ROgmVjE5GKG fqqDyK2BuNAQeaUunOq Y3b3O1Qx0DA6M6MQ08Z U82xHWyx8R2wFH9Y9Ys JEYvhgvwbczyeCC2UUO aKRWiwC42Gx9yuKvgAb 5tYUIzZTF9DWGrwNGpW 6YkuU6mDaYoNMWhBVFj I7RpwHKlQOtcF675BZv eOqV4SIEiklIfE9NtVW TooVfyXgD5e1Q2Qe0SN Pw8OQ31OT14kCQyk4O8 uUB2U1CuNQDuqusshmu gsSX1TABxFIOjbL44Px 0xnSyaDr2iRZYjQQJ9P GIfxKDwF3LvgA5hQxDr BGMpFNLuL8OejOLpBIn zP241TGjiMoP8QHAwgi GtY3SqHZSfjHwdCoU2v 1Z9Oz2BGBZbRZ71YIK4 rIY6VW61XM86B4WwMga vdGFibGU+PHRhYmxlIH dpZHRoPScxMDAlJyBzd OqhEQ3xMb3cQAWuDLAp rGtuuYGuKzJnh3voASF iCQtnDI2qoHpiD6ToaF O2KSKdd0r1Yw11F89kY 3JvdXA+FGWxzED5hIF0 lI8rRpYkAbJ6ERetC64 9YuRbkTSdJwrgi5czz7 zeaHb2KtT7TQSdxnSid RjwGZO6s0KuPl10V23d IHdpZHRoPSIxNSUiIHZ fuUtwks9jwX1sBw7+PG OidUF8gMX5qK7wJpZcP yO8BLttY822IoZlmPLp Khssc5mxw8jdyGl1GuA cXXTdhaSiwDgzPHQ9h9 PfXw89L7IwwFfmu3IhO if1wp50bTDgd2O5gYX7 M3ToJGBjgsfnsLDliQe uGJ0fYDLprlvxBXJmyT 0zNHGwT5l1LfFsQaG5P WhcV1QealU3WCWckLUb CKdpLQB3A23nh8R8WIB kWWVrEVP0iEF3nM0oiC lnbjogbGVmdDsgdmVyd NbqBLfoWTdrZ274JANb nOnsHRDpkP5wBFBieCR swFmsFY1wYSWwajsjRz mHTP2RNMVQDlrxUZqLI LWBGCCJAJ81VD80sOMx q9Z1xDT8D2JsSVLljtv ecwxltTX7CVSvDHFcyA 71vKMqQNpjJj6in8W5a 921CUOnZKRmjB24Uw4l eZavQOSncHYDzV6juzo ke4qbhdlfTmDhQVKpCQ v3KMf4VDNyuNvlRhSqY XK6ZhZ3UQY8oLJbyD4p bLlpfudgyC0yCkj+MTI zVIjwJEk9PYfitZK+PH UmRSO7fWkwVUciKJCtc A6xMLZpW9a5ZhVfIoQ8 MOhzH3DoYQCgycepJd3 6cQ6yQeMrTjH2ZTzhC4 UvylO3VWOuuNGgJQyeE CT3Q81mx7K8IDIuQIQs TQB8tXF7aV3xiYssfyc gbGVmdDsgdmVydGljYW jeBIjdU660EYPqyHeoR hW1IGynQGSoPQ10JW69 uMMhe1T1gXM0W6BfRBI ocywotsnulJL9GAPdBP WzfF17aAMeFMmjJv5xc 4E7x816WRJqRQQvtW37 Ey6dtGapTCMesHQVxY3 hqkaoe7zrlultHhMyDO RsYLo8QDp5MCExeAhfL iZiVKD2GwX8XZI7uFRm tQ3dvCithnanrW6vHwa +UqYfMTnaKL27UQ92lN Xri4S9aOG1W1GdKUVjd asprweefQG4VXSoKZXn rD47cVGbDEuhQm1it6W 8z087HHHcWUTnnR03Mx 3oxEdyLKFsoDRVhV4oo bevf3rbfswyDuDwSLYr HBa5GVl9FNZgtNrqDwD pYZY6UtG1ASH3cVSqlG 6pxRqwzkgvbA1kBwp+T 4X3iGZ7fEOvlAafxYL+ WH31ob15O0MoYxmyJip 4QZOoYQG2dAA7wR7iZI WxEJcdc5Z2sIW2G0Arg hYklj7fp6qgFZDtOYoh E08jsSSqz7G0HATqwOX 0QZHgcLszFnFxiB37Cp c+LCPvuOifk4FaGcfkn 3not8bftFj4SvMqCHMe ujQteJsvNIK4y5QdJy1 0D60iUGmtKGJrSGWkIF IyCCZccCdypp2opS5fR i8+YSBbbAY1rLM4nN3b AsFzPzD5NPkvD208YxJ pwTAzTfkkv7hsy6cssV r5CwXtGHXzyqMsiZplT HU8x8KhCe09K6VfkNlr r1KqRds9oz27zIPas0S 1kKQ6M5AdDUBfidvdaC XdvQgaSG3nKTIfekwyY BIeeX4iXQIaJ1b8MsKb HqJ5CQobQ2ZqstU0EKO myWJgOVYygVUEaD8amw lsm3qqhevvQjPlBSEiI Kv5HHc3JMAfvCjsFvXv YYX3JaG6YUU3bVWteL7 xaAvkskrupS7bHiq+UG v5f1tccPKhUB4syQM5V A82ON92zLMal7A7oMB0 C3BoOUGvlegpgfpqgPP 3EPWzEYLnvR57On9wkV ziEf8nFBUpETJ3VYGoj QSoE7RimK3nRpDtWGWl KLNyV8XmlFFkAFsnX72 8GVhcSaD7MTJlftLtP4 WzTULgbFrzWxV0f5O2B k8RJG61JA41MB47zKNq k3V5qYT0B5LxYCRhjsx rvchikIE0GVFhEYTyoZ 25Xj0tnSzjLi8uJUThM NV0YGFksZSqS3IjoY1p XaGxEJVuWDDcQ7SmwCH uCAgeS234BCauMwP5HT NnmyCrN4MpOWWpcRyvA fE3w0O5Tm6KNw86GZ78 MK09zBPoi3I3pOU7G0O dLPBjjxdblvgmdBR8GS TwDBXrzW81Ml4otHosL z4oDZIpSIY8SROlyIDd S2CueR5dWyDkYSKkZKM qS2TjiVQoVFktQ958IO pnNkD5RMEoubOuO5GmU WAibLkaAnI5p1R3Xd7W GTrgtid7F1JzPgqcdKV +LU20BPRmJZ87qIPlaZ Owi0vidPb9PnCpONEnR VY4dWxpUDldh0NwBUJd Y29s (more content not included)... Normal [facility] Consent for Treatmenton Consent for Treatment [id number] 44#[id number]:127 [facility] Physician Orderon 10-21-2020 Physician Order [id number]#1.00CD:127 [facility] Consent for Treatmenton Consent for Treatment [id number] B4#1.00CD:127 Normal [facility] Physician Orderon 10-19-2020 Physician Order [id number]#1.00CD:127 Normal [facility] XR Chest 2 Viewson XR [...] M.D. Transcribed by: SHAYNA Technologist: BECKI Corona [facility] Vital Signs Date Time Vital Sign Value Performing Clinician Facility 07-26-2023 11:27-0500 Body height 170.2 cm Kaitlyn Jasso MD Work Phone: [facility] 06-12-2023 13:00-0500 Body height 170.18 cm Shun Hill Other [facility] Other 06-12-2023 13:00-0500 Body mass index (BMI) [Ratio] 35.24 kg/m2 Shun Haleormack Other [facility] [employer] Other 06-12-2023 13:00-0500 Body weight 102.06 kg Shun Hill Other [facility] [employer] Other 03-15-2023 12:29-0400 Diastolic blood pressure 89 mm[Hg] DO Irma Burt Work Phone: [facility] 03-15-2023 12:29-0400 Heart rate 70 /min DO Irma Burt Work Phone: [facility] 03-15-2023 12:29-0400 Respiratory rate 16 /min DO Irma Burt Work Phone: [facility] 03-15-2023 12:29-0400 SaO2% (BldA) [Mass fraction] 100 % DO Irma Burt Work Phone: [facility] 03-15-2023 12:29-0400 Systolic blood pressure 132 mm[Hg] DO Irma Burt Work Phone: [facility] 03-15-2023 08:54-0400 Body height 170.18 cm DO Irma Burt Work Phone: [facility] 03-15-2023 08:54-0400 Body weight 90.71 kg DO Irma Burt Work Phone: [facility] 02-08-2023 14:45-0400 Body height 170.18 cm Shun Hill Other [facility] Other 02-08-2023 14:45-0400 Body mass index (BMI) [Ratio] 34.92 kg/m2 Shun Hill Other [facility] Other 02-08-2023 14:45-0400 Body weight 101.15 kg Shun Hill Other [facility] Other 02-08-2023 14:45-0400 Diastolic blood pressure 80 mm[Hg] Shun Hill Other [facility] Other 02-08-2023 14:45-0400 Systolic blood pressure 131 mm[Hg] Shun Hill Other [facility] Other 01-16-2023 10:35-0400 Body height 170.18 cm Aydee Nadiya Other [facility] Other 01-16-2023 10:35-0400 Body mass index (BMI) [Ratio] 35.2 kg/m2 Aydee Nadiya Other [facility] 01-16-2023 10:35-0400 Body temperature 98.3 [degF] Aydee Nadiya Other [facility] 01-16-2023 10:35-0400 Body weight 101.97 kg Aydee Nadiya Other [facility] Other 01-16-2023 10:35-0400 Diastolic blood pressure 66 mm[Hg] Aydee Nadiya Other [facility] 01-16-2023 10:35-0400 Respiratory rate 18 /min Aydee Nadiya Other [facility] 01-16-2023 10:35-0400 SaO2% (BldA) [Mass fraction] 98 % Aydee Nadiya Other [facility] 01-16-2023 10:35-0400 Systolic blood pressure 105 mm[Hg] Aydee Nadiya Other [facility] 09-23-2022 10:45-0400 Body height 170.18 cm Aydee Nadiya Other [facility] 09-23-2022 10:45-0400 Body mass index (BMI) [Ratio] 35.13 kg/m2 Aydee Nadiya Other [facility] 09-23-2022 10:45-0400 Body temperature 99.2 [degF] Aydee Nadiya Other [facility] 09-23-2022 10:45-0400 Body weight 101.74 kg Aydee Nadiya Other [facility] Other 09-23-2022 10:45-0400 Diastolic blood pressure 80 mm[Hg] Aydee Nadiya Other [facility] Other 09-23-2022 10:45-0400 Respiratory rate 18 /min Aydee Nadiya Other [facility] 09-23-2022 10:45-0400 SaO2% (BldA) [Mass fraction] 98 % Aydee Nadiya Other [facility] 09-23-2022 10:45-0400 Systolic blood pressure 125 mm[Hg] Aydee Hearn Other [facility] Other 09-04-2022 11:20-0400 Body height 170.18 cm Aydee Hearn Other [facility] 09-04-2022 11:20-0400 Body mass index (BMI) [Ratio] 31.32 kg/m2 Aydee Hearn Other [facility] 09-04-2022 11:20-0400 Body temperature 97.8 [degF] Aydee Hearn Other [facility] Other 09-04-2022 11:20-0400 Body weight 90.72 kg Aydee Hearn Other [facility] 09-04-2022 11:20-0400 Respiratory rate 18 /min Ayede Hearn Other [facility] Other 09-04-2022 11:20-0400 SaO2% (BldA) [Mass fraction] 99 % Aydee Hearn Other [facility] Other Encounters Encounter Date Encounter Type Care [...] pital Start: 09-20-2023 End: 09-21-2023 ambulatory KAITLYN [facility] Start: 09-18-2023 End: 09-18-2023 ambulatory SAGAR LUKE Not Available Start: 09-17-2023 End: 09-17-2023 ambulatory SAGAR R LUKE [facility] Start: 09-17-2023 End: 09-17-2023 ambulatory KAITLYN [facility] Start: 08-31-2023 End: 09-04-2023 ambulatory FROYLAN Rascon RACHEL [facility] Start: 08-15-2023 End: 08-15-2023 ambulatory IRMA KD Not Available Start: 07-26-2023 Chart abstracting Kaitlyn Jasso MD Work Phone: [facility] Start: 07-18-2023 End: 07-18-2023 ambulatory SAGAR LUKE Not Available Start: 06-20-2023 End: 06-20-2023 ambulatory Shun Hill Other [facility] Start: 06-20-2023 Telephone encounter Shun infante [facility] Start: 06-19-2023 End: 06-19-2023 ambulatory SAGAR BUTLER Not Available Start: 06-12-2023 End: 06-12-2023 ambulatory Shun Hill Other [facility] Other Start: 06-12-2023 Office outpatient vi sit 15 minutes Shun Hill [facility] Start: 05-01-2023 End: 05-01-2023 ambulatory Shun Hill Facility:[facility] Start: 05-01-2023 End: 05-01-2023 ambulatory DO Irma D Burt Work Phone: [facility] Work Phone: Start: 05-01-2023 End: 05-01-2023 Patient encounter procedure DO Irma Burt Work Phone: [facility] Work Phone: Start: 04-10-2023 End: 04-10-2023 ambulatory Shun Haleormack Facility:[facility] Start: 04-10-2023 End: 04-10-2023 ambulatory DO Irma D Burt Work Phone: [facility] Work Phone: Start: 04-10-2023 End: 04-10-2023 Patient encounter procedure DO Irma Burt Work Phone: [facility] [place] Work Phone: Start: 04-06-2023 End: 04-06-2023 ambulatory Shun Hill Other [facility] Start: 04-06-2023 Telephone encounter Shnu infante [facility] Start: 03-20-2023 End: 03-20-2023 ambulatory Shun Hill Other [facility] Start: 03-20-2023 Telephone encounter Shun Moncada naresh [facility] Start: 03-19-2023 End: 03-19-2023 ambulatory Shun Liz Other [facility] Start: 03-19-2023 Telephone encounter Shun Moncada naresh [facility] Start: 03-15-2023 End: 03-15-2023 ambulatory Shun Hill Facility:[facility] Start: 03-15-2023 End: 03-15-2023 Admission to same day surgery center DO Irma Burt Work Phone: [facility] Work Phone: Start: 03-15-2023 End: 03-15-2023 ambulatory DO Irma Landrum Burt Work Phone: [facility] Work Phone: Start: 02-26-2023 End: 02-26-2023 ambulatory Shun Liz Other [facility] Start: 02-26-2023 Telephone encounter Shun Moncada naresh [facility] Start: 02-08-2023 End: 02-08-2023 ambulatory Shun Liz Other [facility] Start: 02-08-2023 Office outpatient ne w 45 minutes Shun Hill [facility] Start: 01-16-2023 End: 01-16-2023 ambulatory Aydee Hearn Other [facility] Other Start: 01-16-2023 Office outpatient vi sit 15 minutes Aydee Nadiya [facility] Start: 09-23-2022 End: 09-23-2022 ambulatory Aydee Nadiya Other [facility] Other Start: 09-23-2022 Office outpatient vi sit 15 minutes Aydee Nadiya [facility] Start: 09-04-2022 End: 09-04-2022 ambulatory Aydee Hearn Other [facility] Other Start: 09-04-2022 Nursing evaluation o f patient and report Aydee Hearn [facility] Start: 07-12-2022 End: 07-12-2022 ambulatory Perlarolo Márquez Other [facility] Other Start: 07-12-2022 Office outpatient vi sit 5 minutes Perla Márquez [facility] Start: 07-07-2022 End: 07-07-2022 ambulatory Aydee Hearn Other [facility] Other Start: 07-07-2022 Encounter for other preprocedural examination Aydee Hearn [facility] Start: 07-07-2022 Nursing evaluation o f patient and report Aydee Hearn [facility] Start: 02-03-2022 End: 02-03-2022 ambulatory Maria Guadalupe Powers Other [facility] Other Start: 02-03-2022 Office outpatient vi sit [...] Td Vaccines (3 - Td or Tdap) [facility] Start: 09-17-2023 End: 09-17-2023 Patient encounter procedure 09/17/2023 8:45 AM EDT Office Visit [facility] [address] [place] [id number] Kaitlyn Jasso MD [address] [facility] [address] [place] [address] [facility] Start: 09-17-2023 End: 09-17-2023 Patient encounter procedure 09/17/2023 7:30 AM EDT Appointment [facility] [address] [place] [id number] [facility] Start: 05-01-2023 [facility] Start: 03-15-2023 [facility] Start: 01-19-2023 COVID-19 Vaccine ( season) COVID-19 Vaccine ( season) [facility] Start: 01-19-2023 Influenza vaccination Influenza Vacc ine [facility] Start: 12-30-2021 Adult BMI Screening Adult BMI Screen ing [facility] Start: 2006 Screening for malign ant neoplasm of cervix Pap Smear [facility] Start: 1997 Depression Screening Depression Scre ening [facility] Start: 1997 Tobacco Screening Tobacco Screening [facility] Immunizations Immunization Date Immunization Notes Care Provider Fa cility 02-03-2020 influenza virus vaccine, unspecified formulation Kaitlyn Jasso MD Work Phone: [facility] Payers Date Payer Category Payer Private Health Insurance [id number] 2023 Self-pay [id number] 2018 Private Health Insurance [employer] POS II [id number] 2018-Present [phone] [address] [place] [address] [id number] 1985 Unknown [id number] 2.16.840.1.204808.3.579.2 .1285 1985 Unknown [id number] 2.16.840.1.503237.3.579.2 .1285 1985 Unknown [id number] 2.16.840.1.943163.3.579.2 .1285 1985 Unknown [id number] 2.16.840.1.164189.3.579.2 .1285 1985 Unknown [id number] 2.16.840.1.783336.3.579.2 .1285 1985 Unknown [id number] 2.16.840.1.790902.3.579.2 .1285 1985 Unknown [id number] 2.16.840.1.618692.3.579.2 .1285 1985 Unknown [id number] 2.16.840.1.312731.3.579.2 .1285 1985 Unknown [id number] 2.16.840.1.141853.3.579.2 .1285 1985 Unknown [id number] 2.16.840.1.749217.3.579.2 .1285 1985 Unknown [id number] 2.16.840.1.178054.3.579.2 .1285 1985 Unknown [id number] 2.16.840.1.643368.3.579.2 .1285 1985 Unknown [id number] 2.16.840.1.319547.3.579.2 .1259 1985 Unknown [id number] 2.16.840.1.650163.3.579.2 .1258 1985 Unknown [id number] 2.16.840.1.865351.3.579.2 .9 1985 Unknown [id number] 2.16.840.1.096422.3.579.2 .1258 1985 Unknown [id number] 2.16.840.1.273905.3.579.2 .1258 1985 Unknown [id number] 2.16.840.1.601641.3.579.2 .1258 1985 Unknown [id number] 2.16.840.1.971451.3.579.2 .1258 1985 Unknown [id number] 2.16.840.1.005232.3.579.2 .1258 1985 Unknown [id number] 2.16.840.1.803138.3.579.2 .1258 1985 Unknown [id number] 2.16.840.1.812642.3.579.2 .1259 Medicaid [facility] [id number] Private Health Insurance [id number] Unknown [facility] [id number] Unknown [id number] 2.16840.1.229041.3.579.2 .531 Unknown [id number] 2.16840.1.582584.3.579.2 .531 Unknown [id number] 2.16840.1.552696.3.579.2 .531 Social History Date Type Detail Facility Start: 06-30-2020 End: 07-26-[address] [facility] [employer] Other Start: 03-15-2023 End: 03-15-2023 Tobacco smoking status NHIS Ex-smoker (finding) [facility] Start: 1985 Sex Assigned At Female F [facility] Start: 11-17-2020 Tobacco smoking stat us NHIS Smokes tobacco daily [facility] History of tobacco use Tobacco U se Types Packs/Day Years Used Date Smoking Tobacco: Every Day Vaping/E-cigarettes Smokeless Tobacco: Never [facility] Start: 11-17-2020 Tobacco use and exposure Smokeless tobacco non-user [facility] Start: 07-26-2023 Alcohol intake Current drinke r of alcohol (finding) [facility] Start: 06-30-2020 End: 07-26-2023 History of Social function [facility] Childcare Unknown [facility] Start: 11-17-2020 Alcohol Comment social [facility] Start: 05-04-2023 [facility] Start: 1985 Sex Assigned At Not on file P [facility] Goals Date Patient Goal Desired [...] 11:23 AM [facility] 06-12-2023 Evaluation note Encounter Date Diagnosis Assessment Notes May, Diarrhea (ICD-10 - R19.7) Patient reports that she is about 7-8 weeks gestational Patient reports improvement on Creon with occasional flare Patient reports that she is taking a fiber supplement May, Fatty liver (ICD-10 - K76.0) Patient did have a FibroScan that indicates fatty liver and minimal scaring, this will be reviewed [facility] Other 11-17-2023 Evaluation note* Encounter Date Diagnosis Assessment Notes Treatment Notes Treatment Clinical Notes Mar, Exocrine pancreatic insufficiency (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) [facility] Other 10-31-2023 Evaluation note* Encounter Date Diagnosis Assessment Notes Treatment Notes Treatment Clinical Notes Feb, Alternating constipation and diarrhea (ICD-10 - R19.8) Feb, Fecal urgency (ICD-10 - R15.2) [facility] Other 10-30-2023 Evaluation note* Encounter Date Diagnosis Assessment Notes Treatment Notes Treatment Clinical Notes Feb, Alternating constipation and diarrhea (ICD-10 - R19.8) [facility] Encounter Date Diagnosis Assessment Notes Treatment Notes Treatment Clinical Notes Feb, Alternating constipation and diarrhea (ICD-10 - R19.8) [facility] Other 09-21-2023 Evaluation note* Encounter Date Diagnosis Assessment Notes Treatment Notes Treatment Clinical Notes Jan, Alternating constipation and diarrhea (ICD-10 - R19.8) WORSENING DIARRHEA AND CONSTIPATION OVER THE PAST YEAR. DOES HAVE SOME NOCTURNAL AWAKENINGS WITH THE DIARRHEA. CAN GO 4-5 DAYS WITH OUT A BOWEL MOVEMENT WHEN SHE IS CONSTIPATED. WILL ORDER IBS WORK UP WILL PROCEED WITH COLONOSCOPY [facility] Other 08-29-2023 Evaluation note* Encounter Date Diagnosis [...] no improvement in 2 to 3 days [facility] Other 2023 Evaluation note* Encounter Date Diagnosis [...] no improvement in 2 to 3 days [facility] 04-17-2023 Evaluation note* Encounter Date Diagnosis Assessment Notes Treatment Notes Treatment Clinical Notes Aug, Contact with and (suspected) exposure to other viral communicable diseases (ICD-10 - Z20.828) [facility] Other 02-22-2023 Evaluation note* Encounter Date Diagnosis Assessment Notes Treatment Notes Treatment Clinical Notes Jun, Contact with and (suspected) exposure to covid-19 (ICD-10 - Z20.822) [facility] 02-17-2023 Evaluation note* Encounter Date Diagnosis Assessment Notes Treatment Notes Treatment Clinical Notes Jun, Preoperative clearance (ICD-10 - Z01.818) [facility] Other 09-16-2022 Evaluation note* Encounter Date Diagnosis Assessment Notes Treatment Notes Treatment Clinical Notes Jan, Contact with and (suspected) exposure to covid-19 (ICD-10 - Z20.822) [facility] Other Evaluation note* Diagnosis Onset Date Resolution Status Diarrhea acute [facility] Work Phone: Evaluation noteNo InformationNort [employer] Other History general Narrative - Reported* Type Description Date Medical History ANXIETY AND DEPRESSION [facility] Other Hospital Discharge instructions Additional Instructions DISCHARGE [...] if you have any problems. -Office number [phone] Work Phone: InstructionsNot on filedocumented in this encounter [employer] SystemReason for visit NarrativeRED EQUINOX, ANTIGEN PROCEDURE TESTNoVirident Systems Other Reason for visit NarrativeNEEDSNEGATIVE, RAPID COVID TEST FOR PROCEDURENoVirident Systems Other Summary Purpose Family History No Family [...] section and content) DATE CREATED AUTHOR 08/24/2021 [facility] DATE CREATED AUTHOR AUTHOR'S ORGANIZ ATION 05/09/2023 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 [facility] [employer] [facility]. provides no warranty or guarantee of the accuracy or completeness of information in this document.
== END 2023-12-28 14:29 | disposition home or self-care (01) ==
LOC: FBCO 07:29 → FBC 13:58
PROVIDERS: Visit Provider Obstetrics & Gynecology
DX: O26.893 Other specified pregnancy related conditions, third trimester (principal)
CPT/HCPCS: 59025

== ENCOUNTER 2023-12-31 07:45 | Outpatient (OUT) | payer OTHER, SELFPAY ==
--- NOTE | 2023-12-31 | US_ITS ---
[address] [address] Patient Name: GONZÁLEZ LOMELI MRN: [id number] date: 1985 Sex: F Assigned Patient Location: [facility] Current Patient Location: [facility] Accession/Order Number: [id number] Exam Date: 12/31/2023 13:57 Report Date: 12/31/2023 14:22 At the request of: SAGAR BUTLER Procedure: US OB BPP w non-stress EXAMINATION: US OB BPP w non-stress HISTORY: Multigravida of advanced maternal age O09.523 COMPARISON: No relevant comparison available. TECHNIQUE: Ultrasound biophysical profile was performed in the radiology department. non-reactive stress testing was performed by nursing staff in the birthing center. FINDINGS: BREATHING MOVEMENTS: 2 GROSS BODY MOVEMENTS: 2 TONE: 2 QUALITATIVE AMNIOTIC FLUID VOLUME: 2 PRESENTATION: CEPHALIC HEART RATE: 140.63 bpm AMNIOTIC FLUID VOLUME: 23.7 cm GESTATIONAL AGE: 36 weeks 3 days US/US OB BPP w non-stress IMPRESSION: Total biophysical profile score: 8 Electronically authenticated by: MUSTAPHA COLES Date: 12/31/2023 14:22
--- OUTSIDE RECORDS SUMMARY | 2023-12-31 08:03 | XMS_ITS | CCD ---
Author Organization [facility] Inform ion Partnership [facility] Care Team Providers Care [employer] Information Clerk Name Role Phone Maria Guadalupe Powers Unavailable NadiyaAydee anderson Unavailable Perla Márquez Unavailable Shun Hill Unavailable [phone] MD Shun Hill Attending Provider DO Irma Burt Primary Care Provider [phone] MD Shun Hill Attending Provider DO Irma [...] day for 10 day(s) Jul, Active amylase 055822 unt / lipase 39586 unt / protease 388494 unt delayed release oral capsule (3 sources) Start: 04-06-2023 take 2 capsules by mouth three times daily at mealtime Creon 05907-584666 UNIT 2 capsules Orally three times a [...] 1 tablet by mouth twice daily Sutab 1287-957-779 MG 12 tablets the first dose the [...] 5 day(s) September, Not-Taking 84 hr estradiol 0.68918 mg/hr transdermal system (4 sources) Estrogen take [...] URINE PROTEIN 170 mg/L High <120 [facility] Comment on above: Performed By: #### U PCR #### [facility] ([id number]) [address] [address] [place] [address] U/PRO/REFRIGERATION MECHANIC RATIO CALC 0.17 Normal <0.2 [facility] Comment on above: Result Comment: Neph rotic Syndrome is associated with ratios >3.5 Performed By: #### U PCR #### [facility] ([id number]) [address] [address] URINE CREATININE,RDM 98.06 mg/dL Normal [facility] Comment on above: Performed By: #### U PCR #### [facility] ([id number]) [address] [address] COMPLETE BLOOD COUNTon 09-16 Erythrocyte distribution width (RBC) [Ratio] 13.0 % Normal 11.5-15.0 [facility] Comment on above: Performed By: #### C BC, CMP, FEPR, 2532-0, 3084-1, TSHR, 2276-4, 2284-8, 2132-01 #### [facility] ([id number]) [address] [address] Hematocrit (Bld) [Volume fraction] 34.6 % Low 35-47 [facility] Comment on above: Performed By: #### C BC, CMP, FEPR, 2532-0, 3084-1, TSHR, 2276-4, 2284-8, 2132-01 #### [facility] ([id number]) [address] [facility] [facility] [address] [place] [address] Hemoglobin (Bld) [Mass/Vol] 11.9 g/dL Normal 11.7-15.5 [facility] Comment on above: Performed By: #### C BC, CMP, FEPR, 2532-0, 3084-1, TSHR, 2276-4, 2284-8, 2132-01 #### [facility] ([id number]) [address] [facility] [address] [place] [address] MCH (RBC) [Entitic mass] 30.9 pg Normal 27-34 [facility] Comment on above: Performed By: #### C BC, CMP, FEPR, 2532-0, 3084-1, TSHR, 2276-4, 2284-8, 2132-01 #### [facility] ([id number]) [address], [address] [place] [address] MCHC (RBC) [Mass/Vol] 34.4 g/dL Normal 32-36 [facility] Comment on above: Performed By: #### C BC, CMP, FEPR, 2532-0, 3084-1, TSHR, 2276-4, 228-8, 2132-01 #### [facility] ([id number]) [address] [address] [place] [address] MCV (RBC) [Entitic vol] 90 fL Normal 80-100 [facility] Comment on above: Performed By: #### C BC, CMP, FEPR, 2532-0, 3084-1, TSHR, 2276-4, 228-8, 2132-01 #### [facility] ([id number]) [address] [facility] [place] [address] Platelet mean volume (Bld) [Entitic vol] 9.4 fL Normal 7-12 [facility] Comment on above: Performed By: #### C BC, CMP, FEPR, 2532-0, 3084-1, TSHR, 2276-4, 2284-8, 2132-01 #### [facility] ([id number]) [address] [address] [place] [address] Platelets (Bld) [#/Vol] 181 10*3/uL Normal 150-450 [facility] Comment on above: Performed By: #### C BC, CMP, FEPR, 2532-0, 3084-1, TSHR, 2276-4, 2284-8, 2132-01 #### [facility] ([id number]) [address], [address] [place] [address] RBC COUNT 3.85 X10E12/L Normal 3.80-5.20 [facility] Comment on above: Performed By: #### C BC, CMP, FEPR, 2532-0, 3084-1, TSHR, 2276-4, 2284-8, 2132-01 #### [facility] ([id number]) [address], [address] [place] [address] WBC (Bld) [#/Vol] 11.3 10*3/uL High 4.0-11.0 [facility] Comment on above: Performed By: #### C BC, CMP, FEPR, 2532-0, 3084-1, TSHR, 2276-4, 2284-8, 2132-01 #### [facility] ([id number]) [address], [address] [place] [address] COMPREHENSIVE METABOLIC PANE Charles 09-17-2023 Albumin [Mass/Vol] 3.4 g/dL Normal 3.2-5.3 [facility] Comment on above: Performed By: #### C BC, CMP, FEPR, 2532-0, 3084-1, TSHR, 2276-4, 2284-8, 2132-01 #### [facility] ([id number]) [address], [address] [place] [address] ALP [Catalytic activity/Vol] 71 U/L Normal 39-130 [facility] Comment on above: Performed By: #### C BC, CMP, FEPR, 2532-0, 3084-1, TSHR, 2276-4, 2284-8, 2132-01 #### [facility] ([id number]) [address], [address] [place] [address] ALT [Catalytic activity/Vol] 11 U/L Normal 0-31 [facility] Comment on above: Performed By: #### C BC, CMP, FEPR, 2532-0, 3084-1, TSHR, 2276-4, 2284-8, 2131-9 #### [facility] ([id number]) [address], [address] [place] [address] Anion gap [Moles/Vol] 11 mmol/L Normal 5-15 [facility] Comment on above: Performed By: #### C BC, CMP, FEPR, 2532-0, 3084-1, TSHR, 2276-4, 2284-8, 2132-01 #### [facility] ([id number]) [address], [address] [place] [address] AST [Catalytic activity/Vol] 13 U/L Normal 0-41 [facility] Comment on above: Performed By: #### C BC, CMP, FEPR, 2532-0, 3084-1, TSHR, 2276-4, 2284-8, 2132-01 #### [facility] ([id number]) [address], [address] [place] [address] Bilirubin [Mass/Vol] 0.3 mg/dL Normal 0.3-1.2 [facility] Comment on above: Performed By: #### C BC, CMP, FEPR, 2532-0, 3084-1, TSHR, 2276-4, 2284-8, 2132-01 #### [facility] ([id number]) [address], [address] [place] [address] Calcium [Mass/Vol] 9.0 mg/dL Normal 8.5-10.5 [facility] Comment on above: Performed By: #### C BC, CMP, FEPR, 2532-0, 3084-1, TSHR, 2276-4, 2284-8, 2131-9 #### [facility] ([id number]) [address], [address] [place] [address] Chloride [Moles/Vol] 104 mmol/L Normal 98-109 [facility] Comment on above: Performed By: #### C BC, CMP, FEPR, 2532-0, 3084-1, TSHR, 2276-4, 2284-8, 2132-01 #### [facility] ([id number]) [address], [address] [place] [address] CO2 [Moles/Vol] 24 mmol/L Normal 22-32 [facility] Comment on above: Performed By: #### C BC, CMP, FEPR, 2532-0, 3084-1, TSHR, 2276-4, 2284-8, 2132-01 #### [facility] ([id number]) [address], [address] [place] [address] Creatinine [Mass/Vol] 0.46 mg/dL Normal 0.40-1.00 [facility] Comment on above: Result Comment: METH OD TRACEABLE TO IDMS STANDARD Performed By: #### C BC, CMP, FEPR, 2532-0, 3084-1, TSHR, 2276-4, 2284-8, 2132-01 #### [facility] ([id number]) [address], [address] [place] [address] eGFR (CKD-EPI) NON-RACE DEPENDENT >90 Normal >59 [facility] Comment on above: Result Comment: Reported eGFR is based on the CKD-EPI 2020 equation that does not use a race coefficient. Performed By: #### C BC, CMP, FEPR, 2532-0, 3084-1, TSHR, 2276-4, 2284-8, 2132-01 #### [facility] ([id number]) [address], [address] [place] [address] Glucose [Mass/Vol] 78 mg/dL Normal 65-99 [facility] Comment on above: Performed By: #### C BC, CMP, FEPR, 2532-0, 3084-1, TSHR, 2276-4, 2284-8, 2132-01 #### [facility] ([id number]) [address], [address] [place] [address] Potassium [Moles/Vol] 4.0 mmol/L Normal 3.5-5.0 [facility] Comment on above: Performed By: #### C BC, CMP, FEPR, 2532-0, 3084-1, TSHR, 2276-4, 2284-8, 2132-01 #### [facility] ([id number]) [address], [address] [place] [address] Protein [Mass/Vol] 6.5 g/dL Normal 6.0-8.0 [facility] Comment on above: Performed By: #### C BC, CMP, FEPR, 2532-0, 3084-1, TSHR, 2276-4, 2284-8, 2132-01 #### [facility] ([id number]) [address] [address] [place] [address] Sodium [Moles/Vol] 139 mmol/L Normal 134-146 [facility] Comment on above: Performed By: #### C BC, CMP, FEPR, 2532-0, 3084-1, TSHR, 2276-4, 2284-8, 2132-01 #### [facility] ([id number]) [address], [address] [place] [address] Urea nitrogen [Mass/Vol] 8 mg/dL Normal 5-23 [facility] Comment on above: Performed By: #### C BC, CMP, FEPR, 2532-0, 3084-1, TSHR, 2276-4, 2284-8, 2132-01 #### [facility] ([id number]) [address], [address] [place] [address] FERRITINon 09-17-2023 Ferritin [Mass/Vol] 11 ng/mL Normal 11-307 [facility] Comment on above: Performed By: #### C BC, CMP, FEPR, 2532-0, 3084-1, TSHR, 2276-4, 2284-8, 2132-01 #### [facility] ([id number]) [address], [address] [place] [address] Folate [Mass/Vol]on 09-17-19 24 FOLIC ACID 18.1 ng/mL Normal >5.8 [facility] Comment on above: Result Comment: NEW REFERENCE RANGE Performed By: #### C BC, CMP, FEPR, 2532-0, 3084-1, TSHR, 2276-4, 2284-8, 2132-01 #### [facility] ([id number]) [address], [address] [place] [address] IRON PROFILEon 09-17-2023 Iron [Mass/Vol] 52 ug/dL Normal 50-170 [facility] Comment on above: Performed By: #### C BC, CMP, FEPR, 2532-0, 3084-1, TSHR, 2276-4, 2284-8, 2132-01 #### [facility] ([id number]) [address], [address] [place] [address] IRON BINDING 580 ug/dL High 250-425 [facility] Comment on above: Performed By: #### C BC, CMP, FEPR, 2532-0, 3084-1, TSHR, 2276-4, 2284-8, 2132-01 #### [facility] ([id number]) [address], [address] [place] [address] IRON SATURATION 9 % SATURATION Low 15-50 [facility] Comment on above: Performed By: #### C BC, CMP, FEPR, 2532-0, 3084-1, TSHR, 2276-4, 2284-8, 2132-01 #### [facility] ([id number]) [address], [address] [place] [address] LDH [Catalytic activity/Vol] on 09-17-2023 LDH 124 U/L Normal 100-235 [facility] Comment on above: Performed By: #### C BC, CMP, FEPR, 2532-0, 3084-1, TSHR, 2276-4, 2284-8, 9 #### [facility] ([id number]) [address] [facility] [place] [address] Natriuretic peptide B [Mass/ Vol]on 09-17-2023 Natriuretic peptide B (Bld) [Mass/Vol] 66 pg/mL Normal <100.0 [facility] Comment on above: Performed By: #### C BC, CMP, FEPR, 2532-0, 3084-1, TSHR, 2276-4, 2284-8, 2132-01 #### [facility] ([id number]) [address] [facility] [place] [address] TSH WITH REFLEXon 09-17-2023 TSH 0.78 uIU/mL Normal 0.49-4.67 [facility] Comment on above: Performed By: #### C BC, CMP, FEPR, 2532-0, 3084-1, TSHR, 2276-4, 2284-8, 2132-01 #### [facility] ([id number]) [address] [facility] [place] [address] Thiamine (Bld) [Mass/Vol]on 09-17-2023 THIAMIN VITAMIN B1 See Below Normal [facility] Comment on above: Result Comment: [...] developed and its performance characteristics determined by [facility] [place] ([facility]). It has not been cleared or approved by the FDA. [facility] is regulated under CLIA as qualified to perform high-complexity testing. This test is used for clinical purposes. It should not be regarded as investigational or for research. Test Performed By: [place] [address] [employer] Making: Colin Cisneros III, M.D. CLIA #[id number] Performed By: #### C BC, CMP, FEPR, 2532-0, 3084-1, TSHR, 2276-4, 2284-8, 2132-01 #### [facility] ([id number]) [address], [address] [place] [address] URIC ACIDon 09-17-2023 Urate [Mass/Vol] 5.1 mg/dL Normal 2.6-7.2 [facility] Comment on above: Performed By: #### C BC, CMP, FEPR, 2532-0, 3084-1, TSHR, 2276-4, 2284-8, 2132-01 #### [facility] ([id number]) [address], [address] [place] [address] VITAMIN B12on 09-17-2023 Cobalamin (Vitamin B12) [Mass/Vol] 185 pg/mL Normal 180-914 [facility] Comment on above: Performed By: #### C BC, CMP, FEPR, 2532-0, 3084-1, TSHR, 2276-4, 2284-8, 2132-01 #### [facility] ([id number]) [address] [facility] [place] [address] TSHon 05-25-2023 Thyroid Stimulating (3Rd Generation) Hormone/ Tsh 2.200 [facility] CT abdomen w conon 3 CT abdomen w con [facility] Main [place] [address] [place] [address] CT Scan Report Signed Patient: Laura Alves MR#: [id number] 3 : 1985 Acct:[id number] Age/Sex: 37 / F ADM Date: 04/10/23 Loc: CT Room: Type: [facility] Attending Dr: Shun Hill MD Copies [...] Stan Owens M.D.04/10/2023 4:03 PM Dictation Location: [place] [address] Transcribed By: [facility] 04/10/23 2728 Dictated By: Stan Owens DO 04/10/23 1722 Signed By: 04/10/23 1605 Normal [facility] HCG ( test) IA.rapi d Ql (U)Ordered By: Shun Hill on 03-15-2023 HCG ( test) Ql (U) Negative [facility] HCG,Urineon 03-15-2023 Beta HCG ( test) Ql (U) Negative Normal [facility] Comment on above: Result Comment: PERF ORMED BY: [address] [place] [id number] PATHOLOGIST SIGNWRITER MARINA AYALA M.D. Performed By: #### U HCG #### [place] [id number] [facility] 03-15-2023 L Specimen: [id number] Received: 03/15/23 Status: BUSTER Alfredo Num: [id number] Spec Type: Surgical Subm Dr: Shun Hill MD Tissues: A Colon Biopsy (SURVEILLANCE BX) Procedures: Deepti CHILEL/Pierce L4 Age/ Patient Sex Location Account Attending Physician Laura Alves 37/F [id number] Shun Hill MD SPEC NUM: [id number] RECD: 03/15/23 STATUS: BUSTER RAMOS NUM: [id number] SUMIT: 03/15/23- DR: Shun Hill MD ENTERED: 03/15/23 [facility] DR: SPEC TYPE: Surgical DEPT: [...] The microscopic examination confirms the diagnosis. Specimen: [id number] Received: 03/15/23 Status: BUSTER Gonsalez Num: [id number] Spec Type: Surgical Subm Dr: Shun Hill MD Tissues: A Colon Biopsy (SURVEILLANCE BX) Procedures: HE/2, Gross/Micro L4 Patient: Rick Alvesy [id number] (Continued) Specimen: [id number] Received: 03/15/23 (Continued) Signed (signatur e on file) Winston Donis MD 03/16/23 1737 Specimen: [id number] Received: 03/15/23 Status: BUSTER Alfredo Num: [id number] Spec Type: Surgical Subm Dr: Shun Hill MD Tissues: A Colon Biopsy (SURVEILLANCE BX) Procedures: DUY/Yaz, Deepti/Pierce L4 Patient: Parminder Alvessay [id number] (Continued) Specimen: Received: 03/15/23 (Continued) CPT Codes 38717 Specimen: Received: 03/15/23 Status: BUSTER Gonsalezvanessa Num: [id number] Spec Type: Surgical Subm Dr: Shun Hill MD Tissues: A Colon Biopsy (SURVEILLANCE BX) Procedures: HE/Yaz, Gross/Micro L4 Patient: Laura Alves [id number] (Continued) Signed (signatur e on file) Robbi-Tyrel Donis MD 03/16/23 1737 [facility] SARS-CoV-2 (COVID-19) RNA NA A+probe Ql (Resp)on 01-16-2023 SARS-CoV-2 (COVID-19) RNA GEORGE+probe Ql (Unsp spec) Positive [employer] Other HIV 1&2 AB/AG Screen (P24 AG )on 12-13-2022 HIV 1&2 AB/AG [facility]-Reactive [facility] [employer] [facility] Hepatitis B surface antigeno n 12-13-2022 Hepatitis B Surface Antigen Negative [facility] [employer] [facility] No Panel InformationOrdered By: Rae Agudelo on 12-13-2022 [facility] [employer] Rubella IGG immune statuson 12-13-2022 Rubella immune IgG <0.90 NON IMMUNE [facility] Syphilis Total(Unknown Syphi lis Status)Ordered By: Rae Agudelo on 12-13-2022 Syphilis Non-Reactive [facility] COVID Quick Testingon 2022 Result Negative [employer] Other COVID Quick Testingon 2022 Result Negative [employer] Other COVID Quick Testingon 2022 Result Negative [employer] Other COVID Quick Testingon 2021 Result Negative [employer] Other Consent for Treatmenton 05-21 Consent for Treatment [email or web address] 0 [id number] 318#1.00CD:127 [facility] Coding Summary.on 05-28-2021 Coding Summary. CD:[id number]:[id number] DDs1sGe+PGhlYWQ+PE1 RVGSkF28uoVOejU7VB5 nVVR4CCBTLTUCEIQ9LH I9amLT9UUjfU5TrasOk OrhaiMEaIN59XYg0LIZ 3iFvqGGxgaB4joISuJ8 z3PpEpLQ28qD94AMiyB JByEpP5EbUyrfvhmQAh M2lfTvAqtZVpShc+PHR hYmxlIHdpZHRoPScxMD IrRdTbtMncBK5gAc8jK GVyLWNvbGxhcHNlOiBj j8epQRIhENfwYG4wtDv eR0EcsVT7PTEot2r6Ih 48dHI+TJNsYPH5eNswD Lxcj555ZyHsp3gsCGQ3 aEEiMIwsVTJ3S30ul3F 0XBJuSOWeHPP6tMB0iW 7iiZwskkbdQ1NnzABiX jE9DTB9iGCzxR3gsGym ihgovF8aMym+X08RRU8 VADWKWD9VUmm8G4HwQn wvdHI+TF10XMPjSV78o FSyoYXgs9bspZx6OoNl DTVvBOA3xVvbAWvsr0Z tUKPeS17ttPPsk6S8XS MwiJfxuVKySrYaxAR1r U7qQZhopnsqe5gjejyq Xodcn8wfki08aH81H11 nJVmcKGQxRYG9YCUqXO VkcSjtqh7diH5tBu8+I Qesi1phr0vxfNk0PpLu FTGemiCreCluHBO9h0Q uTf64S9QknRptd3QsZp x4sn27aGVup3H5bEQ1S PuaJLZhwY9gQEbqJwR3 VSOnSdHiiB76sGYeQMg gMs2lsFsweIzsIA3dMY AddenoBWVjaA2hFOQfu KHkcLnkTX6fUREmbhok b240OoNfGEG9OFGsyOC mI2PudM4hBqEkCWAeLN IzX9QokEKvJKujL037T LmdIpI4RHSakvMhK7Pw CTDygQosVdB1w8A4Lr1 Oq5AyskcuHZJ2WCutCR ChWkA2XiTzYmP6P9SrB lc3ZNHytOqmUG9qO4Rs XVGdrcrddytgvJK1UVE aGTFbzJ70uRXrFOzeLo 9rh7L2n616CEVfBNRvg E01Nj8ezOkvMVZtdYPD jT1rbjmci8sjoulzQnL iKDDzRMo6LPy2XORonZ nrCeLoCQL4VfD0VSF3z NXaaH9xwChtjsrxjL2g Oyc+I82gjM3oJIF3HVC 4mpovAOKfueCaLI70KH 06P2UzKrsisBLslEI+P KOddtIdcTyhVT0bDmKt f2lpa1WxZAwjE5GfOQM pHLbsBbv6SJDvOLI8hI Y9tM0dVQVuZTddz7Q7n QG9D2TrthWcql7xz7fy NGEmKHybB97psMGrn3L 2DQPxuZK0QITxqOvnWg JciQ21Zsj+PGNvbGdyb 1IuPfthc8fvs8xcjFr7 IjMwJSIgdmFsaWduPSJ 8x6PcVq85H18iATmzVD RoPSIxNSUiIHZhbGlnb n1bvA0hYq3+PGNvbCB3 kDC5eD4nHDSeLmL7UVd sX834GdCpcWTmLgxtl3 hhs0irdIp2JtGwWGUwm kYstRjyNMM8j7JwTi67 Y87vIOirHVLmGPFtERA pOROmqJosxy5nbL9bBi 8+GT1ow8iniv44dS01e HI+FPQbLIN8wSkdMQrp CUJnbX1qWJyvZqN9CNT lXuPtxN87aTKiLUhuFa 2bhGmrlKtqZM8xCWHmt fafw990XpGws2nzREPv uFLzZXksZEJ4E17nx2D 6KLJiBPLwWCW8wZT7pZ 1hbGlnbjogbGVmdDsgd vIipCgjPEfcPPopN377 IHRvcDsnPlBhdGllbnQ kCrHsOUg3F7NcPvb3IK VkqTurLL3ipPHlTWpfV q2mvYhohZihHT7dZISk dodnu108HwJjv1ehVKK xhLYoOYplCMP7H08if5 T0UYVtHNFuEON9cIK3w Q9zpJkmrissbSPyqNka kfIbkErySXgxWUvmI43 6IHRvcDsnPkJpcnRoIE FseHT9EU05WM78uEPga 1T6jFG1K6NkJZImdgsa amkloAS3NJMgDBUkgY0 4Fe6mnVgfIa2pFAQgSK J1UGAeiYBfI5UlyC3mN rVrRENiGDHlD8LihSWy PIrkB536DVmdCzO3YUF etoIgS7EvWEBhuNibOk Q1x3D8Qk9GL8E9YN91G C89jAOdw7C5vTW5O6Ux SQBcztyrbaeskYH9TFG bWOIklI48Iq1fgFnuLd 9oMOItEEX5FVUyqDRgE 2ApoK1mLvTmLJBuEOXw O8MltXQhDGvsZ056VPs vNjO5VWPdlqMoT3MkRJ KitGgsUwV0d8V3Aj1UZ Cu6CV40EK09lSLjy0B4 qQJ4B8YeDVAaafbfjcq gqGQ5EIIbCIQszI54Rr 8oqXqaCo5rIHHgNME0T ZFdvSXaZ7JtbQ5aPuBp SXVpSOVjY5JltCJkKRk iQ502YHwgUdX1JVTxxc DoU0AaDOAxfFumCrM9i 8T5Ip3UNPJgMR31RDI1 dEY3LY31SS54C5IyRqs vdGFibGU+PHRhYmxlIH dpZHRoPScxMDAlJyBzd MqgXA8dVj1xYXWzMYUl pStkbGAvZeLth4pfQWA gXCknKA3fyNijT2SlpF K2ZGWzm0w0Dq18M04zC 3JvdXA+FASlqSS9lEY1 yC5uEsQxCdQ5KKcqS29 7ZrOusUKcKhrld7krb1 kvzTk5OiX2KPNgykUof OrxKAV4f6AaSe92O26u IHdpZHRoPSIxNSUiIHZ llDhxzh2xeT9cTn4+PG MroBD6sZP9dV0xEiDpN eW8DRutR882IxPltHFv Jeifn3ocr2xztBi6DuU pVMAnhlGokJloOCV9j4 NdSv24Y9VapImck0YgR hw2lx10wAYnr1W4dER3 Z8SxLBNesefhnENnyRk aVP4fEQTjcddkCLCykX 4uHHTmT4p4YgYtNqX4F EirC4EuklG0XLQcfSDh XVpfGVD0J33te9H1WGK jLWMdXAI4mJK6kH1ekW lnbjogbGVmdDsgdmVyd TyoJNxoTDnbC123KFZe zEqsDSImrK6vSQIksYN juTvoRX9lLHGyueiuYa iDLS7HSEBMLnmqGDkFF YVCSOVHFG55YW91yJFh z2W0yGW4T5BqNLGvads lrvsbkRY1WRJyTBByhL 01eOAwUPywTe2mw3E7f 566YBRhSRUsyM80Fx9x fHdeKVShjPJGnJ3cfqm yy5clwbmnWjHwHTReZX g8UQn0DSMceLaoYkZtQ DO9SxQ4ZNM5vYYnzK6s jNetogbmoJ8eJxh+MTI vWGukPTf8JCmhsEV+PH RkSWA8wIunJJesWXSnp J7tLQJgF1n8OqFvVpL8 ZNagU2VbWINuduhpMe4 7zQ5wVqHxRkJ4MVdkV7 GmngA1BHZchJOxKUxgA AT6E07kn0R7DNGqCMJi ZCT0nXG7gH6hjUcranf gbGVmdDsgdmVydGljYW mrIJasR170IWUmzXpiI hP0ZQwzNBErUP08LO41 xHClh1H3aDM1J8HtLJA kfvxrpovdeVU4ORCqXZ UsiF02eFDnVOjxIy7ko 2R0q056HQDpOCPzaZ08 Gq2qgWowYHMxkVFDvN8 xjsglc6qxznfuAnMjAV YkSTp1OSm4FPGgmLuzM mEwSTW3OeW4MTE0aTXp hK9ljKqawrchtW7sIax +AiPyHImdPO61UX99uG Lwy0T2oMI8Q7BaZPHwt scnckbjyKN3STJrACBp gI39aUAeWRnsWv6hi7E 2o521AWBwNHLkhD66Jk 0azEcqGROztUKHwG9fz anor4ziddxgRpFxRWPz HXs5BCx4KDKavCxyFwM oXLY1CqM0GZK8aRUlhN 4egVrobrgrcJ7pEss+U mHgkANdfN3mCN47BT26 R4JdVgdxkVGbkNS+PHR hYmxlIHdpZHRoPScxMD PfGwIgyUjmJY6qWe7mR GVyLWNvbGxhcHNlOiBj b3blXCObTRopCZ8swCz bD5CzjAX6ZHBeh4q1Un 40B98vW7ImmBW+PGNvb AE0wZL7cO5jQsYrUhP0 XLhnW469QrVpyUKcMzd kv5zne8fsrXt6VeSjVZ ZsyqKweHxvIIT0i9InI p61T84dHVypDUElQBKo HZYxERLhsIjiib1hsG2 wIi8+NUQwaTZ3rDK5cW 8dUzZaTrP9CJhlL309X fVmgWOtIzlbG25gD8Bz dXA+YRTiZdm2ZCDjuHe aKJ6wiVKaCThzMo1rMI F6JvDgPeJiRVupH7AnM HDfnmpicaixsIQ9UQUn BRPajW20Qb7waZohXt5 sKZLsTIN0YNAchYIbU3 WcfE9mVtRdSOMpZPBkA 6GyuZYeQHfdC400QWws YfV1ILQyvmDbK1SvWRB mlGnmGvB0r5A8Jg1SdJ gfvVGcFI6iLqHyMEo9W 1NpBmz5HIKimDfvJY3q jQZlEMtbGr1ywPwuhVm rHM0xMOUziawuu047Dn Uct4lyFJNncLAkKXguF SK0T91ku0V9ZFByHGNk VFW9iYZ8fJ9lrVedmyf gbGVmdDsgdmVydGljYW arOMeqX943HEDwkFzwQ hPDJjl6A6WzElk0JISq pBuaLQ8fiSCqITbwHi2 wgUlgaUsaAD9uAFRrek lwq015RuMkc0kcDQVrf ZLhNHzfEPL8O89nz3E9 LDZkMMSoHPD7tQF1cG2 hbGlnbjogbGVmdDsgdm RjhWirEErkXLcdW698B GTgqRwkIv0RBsw4O7Sb Pgl7KYRhpGqaSA1qoJM lEMidEi3opZgskOzrTT 5sPCUmwltse631NdUjd 0bpYMVscDVtBEgvFXM2 S25vi9P5FGKaSNAgWSE 9zDI9lA5mnXwevwecfF VmdDsgdmVydGljYWwtY ZleU544TJWspXaqRzCh eWVyOjwvdGQ+DB13pu8 2Q8XhMysbIxb2UCQcIO W9kTA7vT5lNWJdQZeye 8B7qZR2K9UptvByyk6n b2xs (more content not included)... Normal [facility] Priority Order-Juan 2021 Priority Order-STAT Comment Invalid Interpretation Code [facility] Comment on above: Result Comment: Rece ived Performed at: [facility] [address] [facility], [place] [id number] [facility] Mina Jones Performed By: #### S ARS-CoV-2, GEORGE, [id number] #### [facility] [address] [place] [address] SARS-CoV-2, NAAon 05-25-2021 SARS-CoV-2 (COVID-19) RNA GEORGE+probe Ql (Resp) Not detected Invalid Interpretation Code Not Detected [facility] Comment on above: Result Comment: This nucleic acid amplification test was developed and its performance characteristics determined by [facility]. Nucleic acid amplification tests include RT-PCR and [...] detected) result in this assay. Performed at: [facility] [address] [place], [place] [id number] PhD Shalom Gonzalez Performed By: #### S ARS-CoV-2, GEORGE, [id number] #### [facility] [address] [place] [address] Family Medicine Phone Visit - Telehealthon 05-22-2021 [...] 6 months ago. Has been using DayQuil [id number] with moderate improvement. Review of Systems Fatigue: [...] only communication with the patient located at [address] [place] [phone], with no one else. If it is [...] Patient verbalized understanding Ordered: Rapid COVID Antigen ([facility]) Telephone Est 5 to 10 minutes [id number] 2. Fatigue (R53.83: Other fatigue) see above plan, rule out covid. Ordered: Rapid COVID Antigen ([facility] [place]) Telephone Est 5 to 10 minutes [id number] 3. BMI 27.0-27.9,adult (Z68.27: Body mass index [...] 1035F Telephone Est 5 to 10 minutes [id number] Follow-up With When Contact Information Irma Burt [...] Methamphetamines, Pre (more content not included)... Normal [facility] Comment on above: Result Comment: Elec [...] height. This can be done either in [place] or metric measurements. Note that charts are available to help you find your BMI quickly and easily without having to do these calculations yourself. To calculate your BMI in [place] measurements, your health care provider will: [...] problems. ? BMI can be measured using [place] measurements or metric measurements. ? To interpret [...] Reviewed: 03/20/2018 Elsevier Patient Education ? 2019 [email or web address] [facility] Physician Orderon 04-27-2021 Physician Order [id number] 8#1.00CD:127 [facility] Coding Summary.on 11-04-2020 Coding Summary. CD:[id number] HAj5oJj+PGhlYWQ+PE1 BBNOuJ88qfEGoaE4BP8 xILS5WZLPNOJIOFX7DL F9swOL5XYjvC6TpmaKz UuxqiVTpIL04UIa9MZX 6bBhqCRwtxP7bzWUeC3 f2RnSrYI23vX01GDkdZ DJwRfD7WuNfuxumhOKi B6uvNsFsmAGfLei+PHR hYmxlIHdpZHRoPScxMD DpExOkwVnoXM4wBg5lN GVyLWNvbGxhcHNlOiBj u4wxENAxEXsiRH4wwNk sT4LvdUA8RMUzt3k7Rr 48dHI+JJGaDXZ0dBvmR Yhan829OdTzh8rnFKB9 lDNlVDpdGTT9L07lj3M 3KUHwMOEiCRT5fAA6pG 7oxVhulxflO2RqzZTaS dL9AVP3xZFanR2wpNhk auxuwH8xOis+P54YSI8 TKWPXAU7SBgk7B2LfTq wvdHI+SP30RPZoDR69e LWjfUUrk8torZe1RvRj BNNsVJF9gIdiHZopv6D wZYDxE00bqOXcz7R9JT DhzSyjyYYuOaNbyEW3u G7tBVylxekxg6boyero Habcy3dmfb23oL85N75 zETodSDNuQPR5WIXuNT WkkIrqjc2fgQ9dLl6+I Lscl4qai2gluAs8LwAd QSFvbvEjaEujYTI8g3G yIq14X2JenIong4RfVe m2df65oBExy0A2hKX7I FbgZXTdcW7vSUvsMuT1 SIVfWjMxdD93mCQmGNh eLp7egEijrGpaNM9zHJ RwjsqaCUSgwX6uVGMuo BDfjOulNE3fKQFsahgy s241OgPcUCR0DSNglSF hD2TxkO0bPgCzUPXtIY AwT3PlsOPaPPhiX026J QymSnV2HKNinoTkH8Kg KISukGfmIuN6g0C4Ul3 Ga4WevhqdQUJ7WHlzKI W1QlU0TfLjPdE4A4ItT fv7YHBlkGzhPM1nK8Pk MQWvvlxqtfwbwNX3DVJ cZPXpbH75gJCaBFxePh 3cf4A9f009QDKdPZTvz I00Zj2nxMwfPMMubMMK qT2fufugi8qrmdrhYjL hMICgBVa3SPy8BEHlwC fxKcSbDEP6RuP7NNC9f MVziT8bvRvqyanavM0o Oyc+D23vjB4mFWU4HYF 5ucfuNPWhhuDmNU79JW 65E9ThGcxalAChjSN+P PCkvwBqeXmvZP0mEaUc b6xkw8XuQPvfC1UfBKJ rRZmzEhm0JGVdXDI0oA N7lR6wORUbXTbbw3G6j VR1D4AslmLlup8ln3ap APPtWQgnY19ncHIbo7Z 7VEExvXH4AIAilClmTn FfsM17Syv+PGNvbGdyb 3LqVnjig7utm7gqrRz6 IjMwJSIgdmFsaWduPSJ 0h7CiKz83Y65kJJnoYP RoPSIxNSUiIHZhbGlnb t0hlA9yHx5+PGNvbCB3 fWQ5pH6sEOXmBjF6EZz mO904PvAajNOkXktfa0 bmr8jrcLo6HnFtLCWzs gZkcNbzUJR2d1LlAs12 L22jWQmoZOGnPVKnXJG pIVHtzSyxvc7rqS8dWm 8+DY8xx9geou80hS76o HI+EFMmIUX4aQyvXNap XXOmbJ7aMBsdLxG4RUI bIxCotD46uRNoDNlgWg 6tsUimqVfbCP1aPTCvf ynqx956CvWrg9fmGKVd rJSsCZrtPAU7T89jb2D 8UWYhCIDeTFX2qQE4fO 1hbGlnbjogbGVmdDsgd fOkeOhdZKicNPodE239 IHRvcDsnPlBhdGllbnQ iBgAdSOt1O2DkCbe2TK JpgHflBJ1fpUYgAUneH w7osCrkoLewOA3iDEUz svvwf672DzGyi3yhXBU dsEZdYCscSBY4M73hs5 L1OISqPXBsRKC0wIG1x Z3poVuwlplbbZAtyHjm beHnvLtfNAevPHffE81 6IHRvcDsnPkJpcnRoIE DbnHP4RW99NA94uISzz 9U3zSB2H7ExQZIdjasy zszrxZS1IERrFLSvuB3 8Se2izMusOm7rUFOnDV O7FBQytGVlW8IqsI8iI cEdFFAwMDIrO4ElsMZv OElxK412YGpyNyK9ZHQ xvmSgX2RzKQHxzXfjGn L3f1T9Ny9TT0F1GC41A B80hOHvs4S5lSX9I4Dw NLWpleixgluovAI1OJP sMGQanZ32Xp7scWzzEr 9uTAAaWMC6RHZtpRXrQ 4GuuO4mYePfRCWcOXXz W7DzhDJwSDqoP035RCu sBeC4QNIhiaRqW0FyHP LlaVetXwM8x8C2Yy4WL Fi5FY90CS54wUPxt3U4 yJZ3B8FkNSTjsgbcryf lrLQ7ZEQiVGTuyF96Og 5umCqaSp1rMIJhPAE3P VLugONeQ3EocR4jYfAr WELrFAItC3WzdHTrTUo yW261BYprNbG8REChzc VdJ1YpQJOcgYnbZcS2a 5H3Xv7JVUIsLI23BEO3 uMM2EK82YJ07R7IxWqa vdGFibGU+PHRhYmxlIH dpZHRoPScxMDAlJyBzd YlvRJ8gMa4gOEAkCBVt lYyvrWGtAdKko2bqXPM pRMvcZW2hfNjqD9LoeB Q2BZExs0o4Oa40D93tY 3JvdXA+IDFhjMD4zEB4 kZ3tJsBpVqD3MBpoN23 9UwDuqFWyWlnoi4ogt4 qwvRj9RsL3ZQIidqSlt VcnKGX1i8EoZu81B71n IHdpZHRoPSIxNSUiIHZ gsQwbui9njT4gJa9+PG YrpPP7bGV1iJ6nScWqH rI3YOebE456ItUutQJq Bkvpm7ynb7xeeGi5XiM fUNUqlvUkaTzyRIC0q1 XuEc94W4DrrGnwe7OhZ kg1ys15iMMcx9E7qJC4 T1SgBZApwehgnZNuxIp wBR1gXTYyodhfXJDnzH 2sDJQtW0y4GeJmGyL8G WxyN7AufcD4TRRikSVa FKcjDZC8A17oc1Z3WOQ uPWNoTBU5rLQ2gC6wgQ lnbjogbGVmdDsgdmVyd NqbIOyyKAzkT527SWPp tBswGFEamU0zXVKnoJD uqRbaNK3jIAJiidhnJn lVVI1JDQLGTkwiYDuLI DJQEZQQYP88JD55dOUk l8J2fAS9V4YxLIMpooq epqlwvGK6ZWJdLVEhhY 10hEQzPBohMs0et6A2d 957TBZoCDDsoC94Qu7p vBwzOUCbcGUJmB7jdzh bp0csiuypMpAdOJTkBO a4EMl7MYLntIflPmLzT CQ1JqX2RVS4fQBuyJ1w aBbwvhtxcK0kPfe+MTI hBQooSRp8SQtsiHY+PH EnMCM4jUxwKZgmYLCqk Y3nEFCmO3k5HcAdZrF2 CCqeB9XfUQPejudqWb8 3wX5jPcZrJzB2QNuyC7 XkplD3UXMosDKnFMkzK ZX4G82ix6H1HSGlPRPb BDE8sXW3xK0wiKsqxuo gbGVmdDsgdmVydGljYW iqHKqzD925UUXojCpeU pR9PLjpXYUdQN09IC10 lYSir8Z7yTQ0W4KzLXQ zbqirwxithMF4KYNgBO ChyX14lSInOJigDd6xj 8V0c277ZQRlHAUceN54 Yx9fwPgfETWmzPIXiO4 mgyssn0ocsrvnMtJvCZ YyOMy0FEw8ZZUdkPqbH cLdQKZ1BxL2AVD9cYSo wD1uzNsbqohfiV4eUbf +NrVeMUgyYZ58GB15iX Ezt6X4jQQ2T4UfCJZlw wulknuejIH9TTRbERGp vT98fVGsRPalAv6hj1I 2n172AWRxEGPnvD57Rq 1wjVhwTLAvdNYTrO9bh nflp5uaiwoaTnWqIHNg EIp4MOl9RXNatQraYvP dUPL1VkB6ZOP9aJAyuF 4hnRuuvgqksR2hLsh+T 4P6sWT5rVFnmJgxbOM+ YF55pn90Z6AbTpbmTcb 4XGBrUOV9gMU9kH8qLD KkXEjky4M9vFD8L2Llx vMqrk3pt9fvGOCtNIom R87qcWLmi2R2MJLcfUS 4BIRygQpeWmThsF08Yo c+MGBybCida5ZyLnslv 9vkd5fwgQr8EcUeDZOx prVgdDheZIN8r3DsNy8 8Y71bTYpgQDAhWIJfHK SyVUDjkAkfww5fyY4eI i8+ATXweLJ3fSD9yE1s MnCwQnS4HAjuI348JaX esCWaMyegn4nax2erlB n5QaFfRUAdvdQfrJbuW RW4n6JyFs61E1LghFqq m6KuOqi1jf99zEPrm3L 7eGO5R5ZdTBLjeiiwdL BqoIwwYS5rDWVuzjugP CDviT2qQXYwC2k0VsTe IsD0UKhjK0EasgY5WQB mpDThINFsrEVAvB7lpb qqc6ttjwdpIpNiHOIpG Zl6SXe3DIVnxRvwFfYm DDV3UpE3EIL9mTCvbA2 imNybmjseuV5wBch+UG u9b7mqiGYtBH7huIP6G W47ET53wJOjc9D9nIH4 B9FpWVEwbxufjfeheVS 4FWCtCCXdcT54Eg4nqB jyBg7wUXBqUUO4DXOoh AEkB4ZdkI2jCfGkIEYc MZMhB1XemVUoONgeZ30 1UOlpSoX8SPWijmSxI0 OrLXSxtAeyToP5n4A8K b0VEH21XD14HK98gPUu d1A8yMQ1M6HbRWXonpo idiyyfYP9VLDdBNKmjS 51Xk7swIynAt7jBBPaQ VT9EQRosJTcM3BksG9u RqJtXQMkRYBfS8GflXZ dKEyhN864OAiqOuJ8KO NgraDoG1SqVZWcrMcnP oM7o5T3Ij5XDo72MH72 BS84dGApo1H4cSQ0O3Z dKMMutaqpgpkzlHB1NH OjAZOrcZ52Rv7smFhdO l8wWAAgAEL2EZTacBFf Q7StrJ9uIjWdBFAzWGE pF9HxyHYlBUehF793ST ppFyV7GVXwseVhE0MlQ NAfsDvrCpJ2c4C7Nf0C ANiwaqe7V8FyTiyanSM +LA76SFSgPR79nSCspB Vpc5vwlSp0UzOsJWIwW QL1sKnpEIzsg6BxBKUl Y29s (more content not included)... Normal [facility] CT Chest w/ Contraston 10-29 CT [...] Contrast amount in ml's: 100 Normal [facility] Coding Summary.on 10-28-2020 Coding Summary. CD:[id number] XLj5yEm+PGhlYWQ+PE1 RYRPgI90feFGxqI8CI8 oKXT3NXZTOLCDMIZ3YY Z0obIO4MNkaQ0CppkHp SyltsVKlHU53BBu3PFG 8iEoyMPmbwN2dgUBmX7 z7QiJnMB38xR93ODviU DIhGyS9RaLtbdkwvEQu J8oiNoSoyFZmNlf+PHR hYmxlIHdpZHRoPScxMD AeDfKszLbbFP8fUw8lV GVyLWNvbGxhcHNlOiBj u5pkHFBfCDcnLO5zzVz cG5OknMB3NKBrl6c6Io 48dHI+VALbJXF0sUegH Rzwz322JuGai0bhNXT7 jCKaBIboOCZ2N90gt0N 0RHNsMMQaGVK2lVY8cQ 9zcXqsbduzM6WufJUvZ mU5GAD2aQBlrV1qpBvh mgrjsU5bTsd+A30SLR3 YNYIDPF6DQpu2W4IyJz wvdHI+SN28IWHlZH40i TIcuHTrv3tutGp1SlZp IJPpRDQ5rWwbHIhmf1I wQMRkQ58xsHDxy4X9JG BiwVxdrFVgJkCtyPK2w R5aDAozoyemn8igwpcp Ayebg2whjt48aH63D93 vFHxlBDVcYRA6ZJPdGO EonLwcry8lqU0bKx5+I Zeib5wzg8fuhDi6JjVz LBUmbaPrkOnyOLK3g4O vTc01Q7UhrNvib8GuDh h4ot25uOHwi8I8fOT4F NzlLVKagF9iSPgzDqM0 CRZzWnNjgL77uOQzBDt lVc1fvWmozIshMG2qSF DffaxdMFHiwK4pWAIpm XLktTmgOG5mRCTwedjs b128CrUhQUX0AZLorVL yF2QrpN7fJeVyOAXzRX RiH7HhaATuZYgpW907R HybScU9BAWvkeLuI4To YCWfkMxqAtW7d0H4Ah8 Oh8ZlvhktDGM3COdyGT X8WcLrMoYfJiV5B5SqX td0QRAnrDvlBI2fR6Mh KSInavqtnkrcpNV1YCV yKPKgnY25fIGxCYqmLx 8qd6O4e960ZQWxWMZbm B91Ys0ehWycHIBxnBQR tP4mwlrwu9amtmxdEzE dBAWuPBl7GRz1ZLWksY fbObRcERC0KoK6JAX8d TLylA6doNvfjirkdU4r Oyc+K17guY9rYUV2EEW 3oavvLNTzecIdTN29OB 30E9LwFsaxvCJrrCR+P BDcwvWzfQzdBD5bNeLd e9wvg1CnEKtsP5IiYNV xRJrsXoq8GUTeTWQ8sS P4nD1nQBImVAyyy7G5u AR7G2KmveNenb2qn8hi ITYxCOsvV23ubESxu8B 5BWEukMG8TLYjzGqzRu TyxU15Ije+PGNvbGdyb 3QqBshsh7ogk1fuiJj7 IjMwJSIgdmFsaWduPSJ 6v3WkOo22R58sYUpfPY RoPSIxNSUiIHZhbGlnb c2oaA0nLa1+PGNvbCB3 tJH8gA2sMPFpIfH9QFf dW898GmWspLDsGyycs9 lke2uoxSn0HpJzWHXbu lXtyGavNFD7d5DxLz45 U37fHMarLNMrSMCiIIL gQMAniZxluu8nyE1xJx 8+KN2jz0rkhu31kI97n HI+RFWgDZV9rRywZYdh LZHmlD9qDVaxYbW7FYQ aHiTapN04lJWpAOnuPc 2otOchdWjhCW8uIYLxi wnys511VaBar4tbIJKw fUEaLVelFHB6T51lk4P 7SRBeRSGzVKD6sZY2aZ 1hbGlnbjogbGVmdDsgd mZbgSgrINuiKHmsQ427 IHRvcDsnPlBhdGllbnQ fIsMkDVq9M0CpRoa4YB HikRecUO3xyUXkHBtgE d0nwXulyIpcWD6yTCJi beapg348RrDyd3phMHR hyNRvBYouXXZ4B73mo8 K1LNXuQCBdWMM0xMT7z Y2khWcjldpnbDJjzUwy ulYclWfcKPmxKKifL18 6IHRvcDsnPkJpcnRoIE CntUN9QR28CS30yNFye 7B2pYV1D5XqPQUgarit byfzeRN3DXEfGQHsjB7 5Am3keIlrVt4xJLXuLH P2DBZiwYArB4PthG8yL fQlDYZhANHnS3YohFPa QKpnZ760LMtmQiE4SPU nyyVsE3FeBEBlcRqnSx Q1v0G6Ch8MZ4P9XL76U D27kOPyg6E0jLT4P0Fd YXXbefjrbpqnkJG1UWW zQQBcjT08Tg2pzEcuSt 8kOIXzQOK8XMZsnVJiU 7JqcF5gWvQoJKTlQLLn Q2NiaQPkPIgiP207XAm hTuI8NLJnltUtB8EtWV CkiIriXxU9t9J0Bj7FW Ta6GM39PH81mRWbw7F4 mEP2Y1PkJJUxobhrsgg xrPG3RAWkHGZkkA24Wl 9ujAgkXt4yTCUfJKA8D NCphLDlE2QzoL4aSiVy EJSzPETpE8FgqQTyIDa oT140EZgzWdI7OCOdpl LaV2VfFJRktNggWuO6v 6J9Tv9SVVQwTP96CXN9 uOY0ZB28QM10I1JlVbq vdGFibGU+PHRhYmxlIH dpZHRoPScxMDAlJyBzd QymCI8bFr5sLXYxAXPf nKrfxCVkTuHay4caORV qLIocNG8yxCqlE2VyfX S6PJVdd9h3Pd08C45tY 3JvdXA+KEHqnRO0jMB0 eT8oFrOqQaZ3FNsxL48 5ExLldHPvElppx7vjk8 zsrId0LtR0UHMeczBbt UttCVH5e6OeXl92T02u IHdpZHRoPSIxNSUiIHZ gxVvcrg1qmF0yWi2+PG WbgNH8eXC6zO9vDcVhE lU7GRjyP069HtByzGPe Itisy5jwi8fulGz3VoI eGZWdhgLjfXdrISI7d9 OqUp46M6BslMwpd8SdD zz3ab38xFOcu5R8gOF8 B0KiXVTtxtwfcWCbaAi xZX9lEXWyqjsbXKJgsF 5xCZRfH7b6ZcTiXgO7U OshY4VpglD0PSWplNMw NIcaWCB1D23in5Z2JBO nTPIfGGJ8kQX3yC6qsI lnbjogbGVmdDsgdmVyd OdxVKefCWwaS080GPFv qGmtQFGcmD3lPDRcaOP xxPacFA1oYHMjwidiBt bJUO2IEDYCQdxhNEmZB HVXEXJCHJ04SP33iRFq o4U5jGC9D4EuEJUgkuk acsernWD1VDJeNTPglL 25vPGvFBhiHy3ed6J8v 405HROyCQWyuN22Xe9u yLfwJYSpuERFbP6eonw gd8xyzpeyGzJwBNBiXC h6RNe4XEQzbQygUpApW JD9DhR3IUV4kEYkcF0k wTcgajkykP7rJms+MTI iGMngRRd7IGlqsDK+PH IwXQM7tNqtRXtiTATra O4zLYWoO5f0AxKwMpV1 JZzmX4RcATAaknmoWj7 8xQ1rPyVaTlS0DSlmA4 JdhyW2JSVulNFfBPntP YM1K12le4J4XKEiPZGt MSJ0fME7eM6rrJxxxzr gbGVmdDsgdmVydGljYW xtBYsnS455NXWkpDtdT jD4YHvpWXFuNA42GZ37 sBLhl6P4bAT7T0YhJWN rwoizznsoyXE4NAQzLO HvoI12tQVcOEpaRt1zx 5Y1o232QPHiQQEbrM92 Yo1giGapRJPccJMVtP2 mttfog8xrowvwQyHvTJ GwJRc0USz9FBMnkUqeU fRjGGU1JdD3HBM2pOPv gJ8xnIjhzomdjC0jVlq +AbUsVQhxCR39GW04cS Een8V3yIO1B1XnXUZex tchkncsgHU6ACEcMKRs yJ06tJViLSqvVn8we9J 3g459WCRuOCIsiR07Cv 5gmXbkLWMruOEYcB8td tqwy2aipwelJxEwNWIr QPm6QKl5YYJxsKtrQzZ fPHE7TwM3OGY9yYDtvP 9vkXnuevfzjL0fExr+T 4U7sTS7sDNrhScweUQ+ QS54xf96R7QuUvllIjg 7LWTuQRM4zNR7dJ8xPY WkPOmmk9O4zYB8V9Mpv vXfpf7rw9svNREcCEce Q17tbHWlj8T8DTPfmCU 0QGOhpVkgWtGoqX64Qp c+LFTodHoyi8SvRkspo 2rjn9zpuNo4AdMcDXBv eeGdkKmwKCI0x4KgSm5 8Q78wQBdtJXSfGWFqBD IwWXCeeMzvje1dhH3uO i8+FWKpgLU8nEX4qR2m OiUuYaP9UKamZ800MjM ghUJbZvoar9fxy3nyvF a8SpYhHROtyoNovJslN VJ7c7IrMk15R9VhzDzv h3TfWpx9il95pHDon1G 5wFJ2C0NeFBIxksznaD GwkIerZI2cQFBumcdsT LPapT1xIAWhW6o5JhXi OwW6GSorP5CvpjA2GLX roQSwLCPxhPSRnU6wvx srh7tqxkwpIvFiRGZuY Rf2BIe9JDLwrDapOdZs YYO8BrK2UID4iZXzvZ0 loIipxhxecU9nIze+UG h9b3yenWHfGO8gtLK2Y S91FU59mXBos0V8nNW2 R6LyNFSeqxagrzlbnWH 8YWTaGQOlsC10Gv2mdT kyBt0fXZEdQRP8TTKug EGwS1OalT0lAtAfXOMz WAYdU6MgpIVsXHpiY60 1CBkiCvE1CKDmszTpF4 KwMEHqfIvxHoE3p7O3W f0QTZ23CR22RK04gMYo m3P7jNQ7U0WhGKUqqob zpbkkpEL2JYZhJKEueR 01Hf8jrXgdMc2hQBHpT WT4XGKtaPZcM7JtgI1o OrJjWTJaQQTuM4NhkDW cCBzlC649QVsgArI2MU MzrjZlQ0ErTKOytTuhZ tU8f4L1Wn3IIt63QS83 OK90zFLxf4C6bGX7S4K qNTPhefqfrbdubCK5BC LhFHTwiN85Jp9etOrzW n9oLQGmMZM6AZQluPAk H0UtiH4bFwHtGDRsIGX aZ7NoiGLqOYeiU349XN qvWsQ1VGSjraLbU5KuW MWekDtmJnO5l6I0Oe6A JRnhvlt7D8MvCezzmEJ +FH17ZUUdDK51cCFqaZ Qzh0iqpRv5LvHfECKlH BJ1zDocNFkgf1MxDGKj Y29s (more content not included)... Normal [facility] Consent for Treatmenton Consent for Treatment [id number] 44#[id number]:127 [facility] Physician Orderon 10-21-2020 Physician Order [id number] B8#1.00CD:127 [facility] Consent for Treatmenton Consent for Treatment [id number] B4#1.00CD:[address] [facility] Physician Orderon 10-19-2020 Physician Order [id number]#1.00CD:[address] [facility] XR Chest 2 [facility] XR Chest [...] M.D. Transcribed by: SHAYNA Technologist: BECKI Corona [facility] Vital Signs Date Time Vital Sign Value Performing Clinician Facility 07-26-2023 11:27-0500 Body height 170.2 cm Kaitlyn Jasso MD Work Phone: [employer] 06-12-2023 13:00-0500 Body height 170.18 cm Shun Hill Other [employer] Other 06-12-2023 13:00-0500 Body mass index (BMI) [Ratio] 35.24 kg/m2 Shun Haleormack Other [employer] [facility] [employer] Other 06-12-2023 13:00-0500 Body weight 102.06 kg Shun Hill Other [facility] [employer] Other 03-15-2023 12:29-0400 Diastolic blood pressure 89 mm[Hg] DO Irma Burt Work Phone: [facility] 03-15-2023 12:29-0400 Heart rate 70 /min DO Irma Burt Work Phone: [facility] 03-15-2023 12:29-0400 Respiratory rate 16 /min DO Irma Burt Work Phone: [facility] 03-15-2023 12:29-0400 SaO2% (BldA) [Mass fraction] 100 % DO Irma Burt Work Phone: [facility] 03-15-2023 12:29-0400 Systolic blood pressure 132 mm[Hg] DO Irma Burt Work Phone: [facility] 03-15-2023 08:54-0400 Body height 170.18 cm DO Irma Burt Work Phone: [facility] 03-15-2023 08:54-0400 Body weight 90.71 kg DO Irma Burt Work Phone: [facility] 02-08-2023 14:45-0400 Body height 170.18 cm Shun Hill Other [employer] Other 02-08-2023 14:45-0400 Body mass index (BMI) [Ratio] 34.92 kg/m2 Shun Hill Other [employer] Other 02-08-2023 14:45-0400 Body weight 101.15 kg Shun Hill Other [employer] Other 02-08-2023 14:45-0400 Diastolic blood pressure 80 mm[Hg] Shun Hill Other [employer] Other 02-08-2023 14:45-0400 Systolic blood pressure 131 mm[Hg] Shun Hill Other [employer] Other 01-16-2023 10:35-0400 Body height 170.18 cm Aydee Nadiya Other [employer] Other 01-16-2023 10:35-0400 Body mass index (BMI) [Ratio] 35.2 kg/m2 Aydee Nadiya Other [employer] Other 01-16-2023 10:35-0400 Body temperature 98.3 [degF] Aydee Nadiya Other [employer] Other 01-16-2023 10:35-0400 Body weight 101.97 kg Aydee Nadiya Other [employer] Other 01-16-2023 10:35-0400 Diastolic blood pressure 66 mm[Hg] Aydee Nadiya Other [employer] Other 01-16-2023 10:35-0400 Respiratory rate 18 /min Aydee Nadiya Other [employer] Other 01-16-2023 10:35-0400 SaO2% (BldA) [Mass fraction] 98 % Aydee Nadiya Other [employer] Other 01-16-2023 10:35-0400 Systolic blood pressure 105 mm[Hg] Aydee Nadiya Other [employer] Other 09-23-2022 10:45-0400 Body height 170.18 cm Aydee Nadiya Other [employer] Other 09-23-2022 10:45-0400 Body mass index (BMI) [Ratio] 35.13 kg/m2 Aydee Nadiya Other [employer] Other 09-23-2022 10:45-0400 Body temperature 99.2 [degF] Aydee Nadiya Other [employer] Other 09-23-2022 10:45-0400 Body weight 101.74 kg Aydee Nadiya Other [employer] Other 09-23-2022 10:45-0400 Diastolic blood pressure 80 mm[Hg] Aydee Nadiya Other [employer] Other 09-23-2022 10:45-0400 Respiratory rate 18 /min Aydee Nadiya Other [employer] Other 09-23-2022 10:45-0400 SaO2% (BldA) [Mass fraction] 98 % Aydee Nadiya Other [employer] Other 09-23-2022 10:45-0400 Systolic blood pressure 125 mm[Hg] Aydee Hearn Other [employer] Other 09-04-2022 11:20-0400 Body height 170.18 cm Aydee Hearn Other [employer] Other 09-04-2022 11:20-0400 Body mass index (BMI) [Ratio] 31.32 kg/m2 Aydee Hearn Other [employer] Other 09-04-2022 11:20-0400 Body temperature 97.8 [degF] Aydee Hearn Other [employer] Other 09-04-2022 11:20-0400 Body weight 90.72 kg Aydee Hearn Other [employer] Other 09-04-2022 11:20-0400 Respiratory rate 18 /min Aydee Hearn Other [employer] Other 09-04-2022 11:20-0400 SaO2% (BldA) [Mass fraction] 99 % Aydee Hearn Other [employer] Other Encounters Encounter Date Encounter Type Care [...] pital Start: 09-20-2023 End: 09-21-2023 ambulatory KAITLYN [facility] Start: 09-18-2023 End: 09-18-2023 ambulatory SAGAR LUKE Not Available Start: 09-17-2023 End: 09-17-2023 ambulatory SAGAR R LUKE [facility] Start: 09-17-2023 End: 09-17-2023 ambulatory KAITLYN [facility] Start: 08-31-2023 End: 09-04-2023 ambulatory FROYLAN Rascon RACHEL [facility] Start: 08-15-2023 End: 08-15-2023 ambulatory IRMA KD Not Available Start: 07-26-2023 Chart abstracting Kaitlyn Jasso MD Work Phone: [facility] Start: 07-18-2023 End: 07-18-2023 ambulatory SAGAR LUKE Not Available Start: 06-20-2023 End: 06-20-2023 ambulatory Shun Hill Other [employer] Other Start: 06-20-2023 Telephone encounter Shun infante [facility] Start: 06-19-2023 End: 06-19-2023 ambulatory SAGAR BUTLER Not Available Start: 06-12-2023 End: 06-12-2023 ambulatory Shun Hill Other [employer] Other Start: 06-12-2023 Office outpatient vi sit 15 minutes Shun Hill [facility] Start: 05-01-2023 End: 05-01-2023 ambulatory Shun Hill Facility:[facility] Start: 05-01-2023 End: 05-01-2023 ambulatory DO Irma D Burt Work Phone: [facility] Work Phone: Start: 05-01-2023 End: 05-01-2023 Patient encounter procedure DO Irma Burt Work Phone: [facility] Work Phone: Start: 04-10-2023 End: 04-10-2023 ambulatory Shun Haleormack Facility:[facility] Start: 04-10-2023 End: 04-10-2023 ambulatory DO Irma D Burt Work Phone: [facility] Work Phone: Start: 04-10-2023 End: 04-10-2023 Patient encounter procedure DO Irma Burt Work Phone: [facility] Work Phone: Start: 04-06-2023 End: 04-06-2023 ambulatory Shun Hill Other [employer] Other Start: 04-06-2023 Telephone encounter Shun infante [facility] Start: 03-20-2023 End: 03-20-2023 ambulatory Shun Hill Other [employer] Other Start: 03-20-2023 Telephone encounter Shun Moncada naresh [facility] Start: 03-19-2023 End: 03-19-2023 ambulatory Shun Liz Other [employer] Other Start: 03-19-2023 Telephone encounter Shun Moncada naresh [facility] Start: 03-15-2023 End: 03-15-2023 ambulatory Shun Hill Facility:[facility] Start: 03-15-2023 End: 03-15-2023 Admission to same day surgery center DO Irma Burt Work Phone: [facility] Work Phone: Start: 03-15-2023 End: 03-15-2023 ambulatory DO Irma Landrum Burt Work Phone: [facility] Work Phone: Start: 02-26-2023 End: 02-26-2023 ambulatory Shun Liz Other [employer] Other Start: 02-26-2023 Telephone encounter Shun Moncada naresh [facility] Start: 02-08-2023 End: 02-08-2023 ambulatory Shun Liz Other [employer] Other Start: 02-08-2023 Office outpatient ne w 45 minutes Shun Hill [facility] Start: 01-16-2023 End: 01-16-2023 ambulatory Aydee Hearn Other [employer] Other Start: 01-16-2023 Office outpatient vi sit 15 minutes Aydee Nadiya [facility] Start: 09-23-2022 End: 09-23-2022 ambulatory Aydee Nadiya Other [employer] Other Start: 09-23-2022 Office outpatient vi sit 15 minutes Aydee Nadiya [facility] Start: 09-04-2022 End: 09-04-2022 ambulatory Aydee Hearn Other [employer] Other Start: 09-04-2022 Nursing evaluation o f patient and report Aydee Hearn [facility] Start: 07-12-2022 End: 07-12-2022 ambulatory Perlarolo Márquez Other [employer] Other Start: 07-12-2022 Office outpatient vi sit 5 minutes Perla Márquez [facility] Start: 07-07-2022 End: 07-07-2022 ambulatory Aydee Hearn Other [employer] Other Start: 07-07-2022 Encounter for other preprocedural examination Aydee Hearn [facility] Start: 07-07-2022 Nursing evaluation o f patient and report Aydee Hearn [facility] Start: 02-03-2022 End: 02-03-2022 ambulatory Maria Guadalupe Powers Other [employer] Other Start: 02-03-2022 Office outpatient vi sit [...] Td Vaccines (3 - Td or Tdap) [facility] Start: 09-17-2023 End: 09-17-2023 Patient encounter procedure 09/17/2023 8:45 AM EDT Office Visit [facility] [address] [place] [id number] Kaitlyn Jasso MD [address] [facility] [address] [place] [address] [facility] Start: 09-17-2023 End: 09-17-2023 Patient encounter procedure 09/17/2023 7:30 AM EDT Appointment [facility] [address] [place] [id number] [facility] Start: 05-01-2023 [facility] Start: 03-15-2023 [facility] Start: 01-19-2023 COVID-19 Vaccine ( season) COVID-19 Vaccine ( season) [facility] Start: 01-19-2023 Influenza vaccination Influenza Vacc ine [facility] Start: 12-30-2021 Adult BMI Screening Adult BMI Screen ing [facility] Start: 2006 Screening for malign ant neoplasm of cervix Pap Smear [facility] Start: 1997 Depression Screening Depression Scre ening [facility] Start: 1997 Tobacco Screening Tobacco Screening [facility] Immunizations Immunization Date Immunization Notes Care Provider Fa cility 02-03-2020 influenza virus vaccine, unspecified formulation Kaitlyn Jasso MD Work Phone: [facility] Payers Date Payer Category Payer Private Health Insurance [id number] 2023 Self-pay [id number] 2018 Private Health Insurance [employer] POS II [id number] 2018-Present [phone] [address] [place] [address] [id number] 1985 Unknown [id number] 2.16.840.1.439908.3.579.2 .1285 1985 Unknown [id number] 2.16.840.1.714647.3.579.2 .1285 1985 Unknown [id number] 2.16.840.1.787742.3.579.2 .1285 1985 Unknown [id number] 2.16.840.1.312547.3.579.2 .1285 1985 Unknown [id number] 2.16.840.1.188246.3.579.2 .1285 1985 Unknown [id number] 2.16.840.1.160014.3.579.2 .1285 1985 Unknown [id number] 2.16.840.1.622612.3.579.2 .1285 1985 Unknown [id number] 2.16.840.1.233944.3.579.2 .1285 1985 Unknown [id number] 2.16.840.1.521603.3.579.2 .1285 1985 Unknown [id number] 2.16.840.1.930564.3.579.2 .1285 1985 Unknown [id number] 2.16.840.1.061235.3.579.2 .1285 1985 Unknown [id number] 2.16.840.1.448894.3.579.2 .1285 1985 Unknown [id number] 2.16.840.1.354219.3.579.2 .1259 1985 Unknown [id number] 2.16.840.1.981461.3.579.2 .1258 1985 Unknown [id number] 2.16.840.1.489991.3.579.2 .9 1985 Unknown [id number] 2.16.840.1.756155.3.579.2 .1258 1985 Unknown [id number] 2.16.840.1.062197.3.579.2 .1258 1985 Unknown [id number] 2.16.840.1.646002.3.579.2 .1258 1985 Unknown [id number] 2.16.840.1.534962.3.579.2 .1258 1985 Unknown [id number] 2.16.840.1.617410.3.579.2 .1258 1985 Unknown [id number] 2.16.840.1.060858.3.579.2 .1258 1985 Unknown [id number] 2.16.840.1.006699.3.579.2 .1259 Medicaid [facility] [id number] Private Health Insurance [id number] Unknown [employer] [id number] Unknown [id number] 2.16840.1.057073.3.579.2 .531 Unknown [id number] 2.16840.1.304995.3.579.2 .531 Unknown [id number] 2.16840.1.259403.3.579.2 .531 Social History Date Type Detail Facility Start: 06-30-2020 End: 07-26-2023 Sex Assigned At [facility] [employer] Other Start: 03-15-2023 End: 03-15-2023 Tobacco smoking status NHIS Ex-smoker (finding) [facility] Start: 1985 Sex Assigned At Female F [facility] Start: 11-17-2020 Tobacco smoking stat us NHIS Smokes tobacco daily [facility] History of tobacco use Tobacco U se Types Packs/Day Years Used Date Smoking Tobacco: Every Day Vaping/E-cigarettes Smokeless Tobacco: Never [facility] Start: 11-17-2020 Tobacco use and exposure Smokeless tobacco non-user [facility] Start: 07-26-2023 Alcohol intake Current drinke r of alcohol (finding) [facility] Start: 06-30-2020 End: 07-26-2023 History of Social function [facility] Childcare Unknown [facility] Start: 11-17-2020 Alcohol Comment social [facility] Start: 05-04-2023 [facility] Start: 1985 Sex Assigned At Not on file P [facility] Goals Date Patient Goal Desired [...] Pinto DO on 08/31/2023 11:[address] [facility] 06-12-2023 Evaluation note Encounter Date Diagnosis Assessment Notes May, Diarrhea (ICD-10 - R19.7) Patient reports that she is about 7-8 weeks gestational Patient reports improvement on Creon with occasional flare Patient reports that she is taking a fiber supplement May, Fatty liver (ICD-10 - K76.0) Patient did have a FibroScan that indicates fatty liver and minimal scaring, this will be reviewed [employer] [facility] Other 11-17-2023 Evaluation note* Encounter Date Diagnosis Assessment Notes Treatment Notes Treatment Clinical Notes Mar, Exocrine pancreatic insufficiency (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) [facility] Other 10-31-2023 Evaluation note* Encounter Date Diagnosis Assessment Notes Treatment Notes Treatment Clinical Notes Feb, Alternating constipation and diarrhea (ICD-10 - R19.8) Feb, Fecal urgency (ICD-10 - R15.2) [facility] Other 10-30-2023 Evaluation note* Encounter Date Diagnosis Assessment Notes Treatment Notes Treatment Clinical Notes Feb, Alternating constipation and diarrhea (ICD-10 - R19.8) [facility] Encounter Date Diagnosis Assessment Notes Treatment Notes Treatment Clinical Notes Feb, Alternating constipation and diarrhea (ICD-10 - R19.8) [employer] [facility] Other 09-21-2023 Evaluation note* Encounter Date Diagnosis Assessment Notes Treatment Notes Treatment Clinical Notes Jan, Alternating constipation and diarrhea (ICD-10 - R19.8) WORSENING DIARRHEA AND CONSTIPATION OVER THE PAST YEAR. DOES HAVE SOME NOCTURNAL AWAKENINGS WITH THE DIARRHEA. CAN GO 4-5 DAYS WITH OUT A BOWEL MOVEMENT WHEN SHE IS CONSTIPATED. WILL ORDER IBS WORK UP WILL PROCEED WITH COLONOSCOPY [facility] Other 08-29-2023 Evaluation note* Encounter Date Diagnosis [...] no improvement in 2 to 3 days [facility] Other 2023 Evaluation note* Encounter Date Diagnosis [...] no improvement in 2 to 3 days [employer] [facility] Other 04-17-2023 Evaluation note* Encounter Date Diagnosis Assessment Notes Treatment Notes Treatment Clinical Notes Aug, Contact with and (suspected) exposure to other viral communicable diseases (ICD-10 - Z20.828) [facility] Other 02-22-2023 Evaluation note* Encounter Date Diagnosis Assessment Notes Treatment Notes Treatment Clinical Notes Jun, Contact with and (suspected) exposure to covid-19 (ICD-10 - Z20.822) [facility] Other 02-17-2023 Evaluation note* Encounter Date Diagnosis Assessment Notes Treatment Notes Treatment Clinical Notes Jun, Preoperative clearance (ICD-10 - Z01.818) [facility] Other 09-16-2022 Evaluation note* Encounter Date Diagnosis Assessment Notes Treatment Notes Treatment Clinical Notes Jan, Contact with and (suspected) exposure to covid-19 (ICD-10 - Z20.822) [employer] [facility] Other Evaluation note* Diagnosis Onset Date Resolution Status Diarrhea acute [facility] Work Phone: Evaluation noteNo InformationNort [employer] Other History general Narrative - Reported* Type Description Date Medical History ANXIETY AND DEPRESSION [facility] Other Hospital Discharge instructions Additional Instructions DISCHARGE [...] if you have any problems. -Office number [phone] Work Phone: InstructionsNot on filedocumented in this encounter [employer] SystemReason for visit NarrativeRED EQUINOX, ANTIGEN PROCEDURE TESTNoInSequent Other Reason for visit NarrativeNEEDSNEGATIVE, RAPID COVID TEST FOR PROCEDURENoInSequent Other Summary Purpose Family History No Family [...] content) DATE CREATED AUTHOR 08/24/2021 [facility] DATE CREATED AUTHOR AUTHOR'S ORGANIZ ATION 05/09/2023 [facility] DATE CREATED AUTHOR AUTHOR'S ORGANIZ ATION 09/22/2023 [facility] DATE CREATED AUTHOR AUTHOR'S ORGANIZ ATION 12/25/2023 [facility] DATE CREATED AUTHOR AUTHOR'S ORGANIZ ATION 12/27/[address] [facility] EPIC REASON FOR [...] Active Shun Hill MD Attending Provider Active [employer] Relationship Specialty Start Date End Date No Pcp, [place] [address] PCP - General Family Medicine 11/18/20 FOR [...] BE BASED ON THE PRIMARY CLINICAL RECORDS. [employer] [facility]. provides no warranty or guarantee of the accuracy or completeness of information in this document.
[2023-12-31 14:16] VITALS: BP 121/85; PULSE 103
== END 2023-12-31 14:40 | disposition home or self-care (01) ==
LOC: US 07:45 → FBC 13:53
PROVIDERS: Visit Provider Obstetrics & Gynecology
DX: O09.523 Supervision of elderly multigravida, third trimester (principal); Z3A.36 36 weeks gestation of pregnancy
CPT/HCPCS: 76818

== ENCOUNTER 2024-01-02 20:23 | Outpatient (REF) | payer OTHER, SELFPAY ==
--- OUTSIDE RECORDS SUMMARY | 2024-01-02 20:26 | XMS_ITS | CCD ---
Author Organization [facility] Inform ion Partnership [facility] Care Team Providers Care Recycling Or Rubbish Collector Name Role Phone Maria Guadalupe Powers Unavailable NadiyaAydee anderson Unavailable Perla Márquez Unavailable Shun Hill Unavailable [phone] MD Shun Hill Attending Provider [phone] DO Irma Burt Primary Care Provider MD [...] day for 10 day(s) Jul, Active amylase 899143 unt / lipase 15228 unt / protease 425829 unt delayed release oral capsule (3 sources) Start: 04-06-2023 take 2 capsules by mouth three times daily at mealtime Creon 91763-068199 UNIT 2 capsules Orally three times a [...] 1 tablet by mouth twice daily Sutab 8052-608-648 MG 12 tablets the first dose the [...] 5 day(s) September, Not-Taking 84 hr estradiol 0.50134 mg/hr transdermal system (4 sources) Estrogen take [...] URINE PROTEIN 170 mg/L High <120 [facility] Comment on above: Performed By: #### U PCR #### [facility] ([id number]) [address] [place] [address] U/PRO/ADVANCED SEAL DELIVERY SYSTEM RATIO CALC 0.17 Normal <0.2 [facility] Comment on above: Result Comment: Neph rotic Syndrome is associated with ratios >3.5 Performed By: #### U PCR #### [facility] ([id number]) [address] [address] URINE CREATININE,RDM 98.06 mg/dL Normal [facility] Comment on above: Performed By: #### U PCR #### [facility] ([id number]) [address] [address] COMPLETE BLOOD COUNTon 09-16 Erythrocyte distribution width (RBC) [Ratio] 13.0 % Normal 11.5-15.0 [facility] Comment on above: Performed By: #### C BC, CMP, FEPR, 2532-0, 3084-1, TSHR, 2276-4, 2284-8, 2132-01 #### [facility] ([id number]) [address] [address] Hematocrit (Bld) [Volume fraction] 34.6 % Low 35-47 [facility] Comment on above: Performed By: #### C BC, CMP, FEPR, 2532-0, 3084-1, TSHR, 2276-4, 2284-8, 2132-01 #### [facility] ([id number]) [address] [place] [address] Hemoglobin (Bld) [Mass/Vol] 11.9 g/dL Normal 11.7-15.5 [facility] Comment on above: Performed By: #### C BC, CMP, FEPR, 2532-0, 3084-1, TSHR, 2276-4, 2284-8, 2132-01 #### [facility] ([id number]) [address], [facility] [address] [place] [address] MCH (RBC) [Entitic mass] 30.9 pg Normal 27-34 [facility] Comment on above: Performed By: #### C BC, CMP, FEPR, 2532-0, 3084-1, TSHR, 2276-4, 2284-8, 2132-01 #### [facility] ([id number]) [address], [address] [place] [address] MCHC (RBC) [Mass/Vol] 34.4 g/dL Normal 32-36 [facility] Comment on above: Performed By: #### C BC, CMP, FEPR, 2532-0, 3084-1, TSHR, 2276-4, 228-8, 2132-01 #### [facility] ([id number]) [address] [place] [address] MCV (RBC) [Entitic vol] 90 fL Normal 80-100 [facility] Comment on above: Performed By: #### C BC, CMP, FEPR, 2532-0, 3084-1, TSHR, 2276-4, 228-8, 2132-01 #### [facility] ([id number]) [address] [place] [address] Platelet mean volume (Bld) [Entitic vol] 9.4 fL Normal 7-12 [facility] Comment on above: Performed By: #### C BC, CMP, FEPR, 2532-0, 3084-1, TSHR, 2276-4, 2284-8, 2132-01 #### [facility] ([id number]) [address] [place] [address] Platelets (Bld) [#/Vol] 181 10*3/uL Normal 150-450 [facility] Comment on above: Performed By: #### C BC, CMP, FEPR, 2532-0, 3084-1, TSHR, 2276-4, 2284-8, 2132-01 #### [facility] ([id number]) [address], [address] [place] [address] RBC COUNT 3.85 X10E12/L Normal 3.80-5.20 [facility] Comment on above: Performed By: #### C BC, CMP, FEPR, 2532-0, 3084-1, TSHR, 2276-4, 2284-8, 2132-01 #### [facility] ([id number]) [address], [address] [place] [address] WBC (Bld) [#/Vol] 11.3 10*3/uL High 4.0-11.0 [facility] Comment on above: Performed By: #### C BC, CMP, FEPR, 2532-0, 3084-1, TSHR, 2276-4, 2284-8, 2132-01 #### [facility] ([id number]) [address], [address] [place] [address] COMPREHENSIVE METABOLIC PANE Charles 09-17-2023 Albumin [Mass/Vol] 3.4 g/dL Normal 3.2-5.3 [facility] Comment on above: Performed By: #### C BC, CMP, FEPR, 2532-0, 3084-1, TSHR, 2276-4, 2284-8, 2132-01 #### [facility] ([id number]) [address], [address] [place] [address] ALP [Catalytic activity/Vol] 71 U/L Normal 39-130 [facility] Comment on above: Performed By: #### C BC, CMP, FEPR, 2532-0, 3084-1, TSHR, 2276-4, 2284-8, 2132-01 #### [facility] ([id number]) [address], [address] [place] [address] ALT [Catalytic activity/Vol] 11 U/L Normal 0-31 [facility] Comment on above: Performed By: #### C BC, CMP, FEPR, 2532-0, 3084-1, TSHR, 2276-4, 2284-8, 2131-9 #### [facility] ([id number]) [address], [address] [place] [address] Anion gap [Moles/Vol] 11 mmol/L Normal 5-15 [facility] Comment on above: Performed By: #### C BC, CMP, FEPR, 2532-0, 3084-1, TSHR, 2276-4, 2284-8, 2132-01 #### [facility] ([id number]) [address], [address] [place] [address] AST [Catalytic activity/Vol] 13 U/L Normal 0-41 [facility] Comment on above: Performed By: #### C BC, CMP, FEPR, 2532-0, 3084-1, TSHR, 2276-4, 2284-8, 2132-01 #### [facility] ([id number]) [address], [address] [place] [address] Bilirubin [Mass/Vol] 0.3 mg/dL Normal 0.3-1.2 [facility] Comment on above: Performed By: #### C BC, CMP, FEPR, 2532-0, 3084-1, TSHR, 2276-4, 2284-8, 2132-01 #### [facility] ([id number]) [address], [address] [place] [address] Calcium [Mass/Vol] 9.0 mg/dL Normal 8.5-10.5 [facility] Comment on above: Performed By: #### C BC, CMP, FEPR, 2532-0, 3084-1, TSHR, 2276-4, 2284-8, 2131-9 #### [facility] ([id number]) [address], [address] [place] [address] Chloride [Moles/Vol] 104 mmol/L Normal 98-109 [facility] Comment on above: Performed By: #### C BC, CMP, FEPR, 2532-0, 3084-1, TSHR, 2276-4, 2284-8, 2132-01 #### [facility] ([id number]) [address], [address] [place] [address] CO2 [Moles/Vol] 24 mmol/L Normal 22-32 [facility] Comment on above: Performed By: #### C BC, CMP, FEPR, 2532-0, 3084-1, TSHR, 2276-4, 2284-8, 2132-01 #### [facility] ([id number]) [address], [address] [place] [address] Creatinine [Mass/Vol] 0.46 mg/dL Normal 0.40-1.00 [facility] Comment on above: Result Comment: METH OD TRACEABLE TO IDMS STANDARD Performed By: #### C BC, CMP, FEPR, 2532-0, 3084-1, TSHR, 2276-4, 2284-8, 2132-01 #### [facility] ([id number]) [address], [address] [place] [address] eGFR (CKD-EPI) NON-RACE DEPENDENT >90 Normal >59 [facility] Comment on above: Result Comment: Reported eGFR is based on the CKD-EPI 2020 equation that does not use a race coefficient. Performed By: #### C BC, CMP, FEPR, 2532-0, 3084-1, TSHR, 2276-4, 2284-8, 2132-01 #### [facility] ([id number]) [address], [address] [place] [address] Glucose [Mass/Vol] 78 mg/dL Normal 65-99 [facility] Comment on above: Performed By: #### C BC, CMP, FEPR, 2532-0, 3084-1, TSHR, 2276-4, 2284-8, 2132-01 #### [facility] ([id number]) [address], [address] [place] [address] Potassium [Moles/Vol] 4.0 mmol/L Normal 3.5-5.0 [facility] Comment on above: Performed By: #### C BC, CMP, FEPR, 2532-0, 3084-1, TSHR, 2276-4, 2284-8, 2132-01 #### [facility] ([id number]) [address], [address] [place] [address] Protein [Mass/Vol] 6.5 g/dL Normal 6.0-8.0 [facility] Comment on above: Performed By: #### C BC, CMP, FEPR, 2532-0, 3084-1, TSHR, 2276-4, 2284-8, 2132-01 #### [facility] ([id number]) [address] [place] [address] Sodium [Moles/Vol] 139 mmol/L Normal 134-146 [facility] Comment on above: Performed By: #### C BC, CMP, FEPR, 2532-0, 3084-1, TSHR, 2276-4, 2284-8, 2132-01 #### [facility] ([id number]) [address], [address] [place] [address] Urea nitrogen [Mass/Vol] 8 mg/dL Normal 5-23 [facility] Comment on above: Performed By: #### C BC, CMP, FEPR, 2532-0, 3084-1, TSHR, 2276-4, 2284-8, 2132-01 #### [facility] ([id number]) [address], [address] [place] [address] FERRITINon 09-17-2023 Ferritin [Mass/Vol] 11 ng/mL Normal 11-307 [facility] Comment on above: Performed By: #### C BC, CMP, FEPR, 2532-0, 3084-1, TSHR, 2276-4, 2284-8, 2132-01 #### [facility] ([id number]) [address], [address] [place] [address] Folate [Mass/Vol]on 09-17-19 24 FOLIC ACID 18.1 ng/mL Normal >5.8 [facility] Comment on above: Result Comment: NEW REFERENCE RANGE Performed By: #### C BC, CMP, FEPR, 2532-0, 3084-1, TSHR, 2276-4, 2284-8, 2132-01 #### [facility] ([id number]) [address], [address] [place] [address] IRON PROFILEon 09-17-2023 Iron [Mass/Vol] 52 ug/dL Normal 50-170 [facility] Comment on above: Performed By: #### C BC, CMP, FEPR, 2532-0, 3084-1, TSHR, 2276-4, 2284-8, 2132-01 #### [facility] ([id number]) [address], [address] [place] [address] IRON BINDING 580 ug/dL High 250-425 [facility] Comment on above: Performed By: #### C BC, CMP, FEPR, 2532-0, 3084-1, TSHR, 2276-4, 2284-8, 2132-01 #### [facility] ([id number]) [address], [address] [place] [address] IRON SATURATION 9 % SATURATION Low 15-50 [facility] Comment on above: Performed By: #### C BC, CMP, FEPR, 2532-0, 3084-1, TSHR, 2276-4, 2284-8, 2132-01 #### [facility] ([id number]) [address], [address] [place] [address] LDH [Catalytic activity/Vol] on 09-17-2023 LDH 124 U/L Normal 100-235 [facility] Comment on above: Performed By: #### C BC, CMP, FEPR, 2532-0, 3084-1, TSHR, 2276-4, 2284-8, 9 #### [facility] ([id number]) [address] [place] [address] Natriuretic peptide B [Mass/ Vol]on 09-17-2023 Natriuretic peptide B (Bld) [Mass/Vol] 66 pg/mL Normal <100.0 [facility] Comment on above: Performed By: #### C BC, CMP, FEPR, 2532-0, 3084-1, TSHR, 2276-4, 2284-8, 2132-01 #### [facility] ([id number]) [address] [facility], [address] [place] [address] TSH WITH REFLEXon 09-17-2023 TSH 0.78 uIU/mL Normal 0.49-4.67 [facility] Comment on above: Performed By: #### C BC, CMP, FEPR, 2532-0, 3084-1, TSHR, 2276-4, 2284-8, 2132-01 #### [facility] ([id number]) [address], [address] [place] [address] Thiamine (Bld) [Mass/Vol]on 09-17-2023 THIAMIN VITAMIN B1 See Below Normal [facility] Comment on above: Result [...] determined by [facility] Pathology and Laboratory Medicine [place] ([facility]). It has not been cleared or approved by the FDA. [facility] is regulated under CLIA as qualified to perform high-complexity testing. This test is used for clinical purposes. It should not be regarded as investigational or for research. Test Performed By: [place] [address] Office Analyst: Colin Cisneros III, M.D. CLIA #[id number] Performed By: #### C BC, CMP, FEPR, 2532-0, 3084-1, TSHR, 2276-4, 2284-8, 2132-01 #### [facility] ([id number]) [address], [address] [place] [address] URIC ACIDon 09-17-2023 Urate [Mass/Vol] 5.1 mg/dL Normal 2.6-7.2 [facility] Comment on above: Performed By: #### C BC, CMP, FEPR, 2532-0, 3084-1, TSHR, 2276-4, 2284-8, 2132-01 #### [facility] ([id number]) [address], [address] [place] [address] VITAMIN B12on 09-17-2023 Cobalamin (Vitamin B12) [Mass/Vol] 185 pg/mL Normal 180-914 [facility] Comment on above: Performed By: #### C BC, CMP, FEPR, 2532-0, 3084-1, TSHR, 2276-4, 2284-8, 2132-01 #### [facility] ([id number]) [address], [address] [place] [address] TSHon 05-25-2023 Thyroid Stimulating (3Rd Generation) Hormone/ Tsh 2.200 [facility] System CT abdomen w conon 3 CT abdomen w con [facility] Main [place] [address] [place] [address] CT Scan Report Signed Patient: Laura Alves MR#: [id number] 3 : 1985 Acct:[id number] Age/Sex: 37 / F ADM Date: 04/10/23 Loc: CT Room: Type: [facility] Attending Dr: Shun Hill MD Copies to: [...] Stan Owens M.D.04/10/2023 4:03 PM Dictation Location: [place] [address] Transcribed By: [facility] 04/10/23 6984 Dictated By: Stan Owens DO 04/10/23 7929 Signed By: 04/10/23 1608 Normal [facility] HCG ( test) IA.rapi d Ql (U)Ordered By: Shun Hill on 03-15-2023 HCG ( test) Ql (U) Negative [facility] HCG,Urineon 03-15-2023 Beta HCG ( test) Ql (U) Negative Normal [facility] Comment on above: Result Comment: PERF ORMED BY: [address] [place] [id number] PATHOLOGIST BRAKE TESTER MARINA AYALA M.D. Performed By: #### U HCG #### [place] [id number] [facility] 03-15-2023 L Specimen: [id number] Received: 03/15/23 Status: BUSTER Alfredo Num: [id number] Spec Type: Surgical Subm Dr: Shun Hill MD Tissues: A Colon Biopsy (SURVEILLANCE BX) Procedures: Deepti CHILEL/Pierce L4 Age/ Patient Sex Location Account Attending Physician Laura Alves 37/F [id number] Shun Hill MD SPEC NUM: [id number] RECD: 03/15/23 STATUS: BUSTER RAMOS NUM: [id number] SUMIT: 03/15/23- DR: Shun Hill MD ENTERED: 03/15/[address] [facility] [address]: SPEC TYPE: Surgical DEPT: [...] The microscopic examination confirms the diagnosis. Specimen: [id number] Received: 03/15/23 Status: BUSTER Gonsalez Num: [id number] Spec Type: Surgical Subm Dr: Shun Hill MD Tissues: A Colon Biopsy (SURVEILLANCE BX) Procedures: HE/2, Gross/Micro L4 Patient: Rick Alvesy [id number] (Continued) Specimen: [id number] Received: 03/15/23 (Continued) Signed (signatur e on file) Winston Donis MD 03/16/23 1737 Specimen: [id number] Received: 03/15/23 Status: BUSTER Alfredo Num: [id number] Spec Type: Surgical Subm Dr: Shun Hill MD Tissues: A Colon Biopsy (SURVEILLANCE BX) Procedures: DUY/Yaz, Deepti/Pierce L4 Patient: Parminder Alvessay [id number] (Continued) Specimen: Received: 03/15/23 (Continued) CPT Codes 87825 Specimen: Received: 03/15/23 Status: BUSTER Gonsalezvanessa Num: [id number] Spec Type: Surgical Subm Dr: Shun Hill MD Tissues: A Colon Biopsy (SURVEILLANCE BX) Procedures: HE/Yaz, Gross/Micro L4 Patient: Laura Alves [id number] (Continued) Signed (signatur e on file) Robbi-Tyrel Donis MD 03/16/23 1737 [facility] SARS-CoV-2 (COVID-19) RNA NA A+probe Ql (Resp)on 01-16-2023 SARS-CoV-2 (COVID-19) RNA GEORGE+probe Ql (Unsp spec) Positive [employer] Other HIV 1&2 AB/AG Screen (P24 AG )on 12-13-2022 HIV 1&2 AB/AG [facility]-Reactive [facility] Hepatitis B surface antigeno n 12-13-2022 Hepatitis B Surface Antigen Negative [facility] No Panel InformationOrdered By: Rae Agudelo on 12-13-2022 [facility] Rubella IGG immune statuson 12-13-2022 Rubella immune IgG <0.90 NON IMMUNE [facility] Syphilis Total(Unknown Syphi lis Status)Ordered By: Rae Agudelo on 12-13-2022 Syphilis Non-Reactive [facility] COVID Quick Testingon 2022 Result Negative [employer] Other COVID Quick Testingon 2022 Result Negative [employer] Other COVID Quick Testingon 2022 Result Negative [employer] Other COVID Quick Testingon 2021 Result Negative [employer] Other Consent for Treatmenton 05-21 Consent for Treatment 149.45.122.20.2021 0 [id number] 318#1.00CD:[address] [facility] Coding Summary.on 05-28-2021 Coding Summary. CD:[id number] COs4xVd+PGhlYWQ+PE1 OYYSjO92lwBNhyO4LR3 dPAM0GXXLGCAJCBM6UA T0ohKY7TGffH1JktlLk CqrvmTVkXQ75CBh7KJS 3dTfjAVhpmO9ofMThS1 d1EsOlRZ95dG67XMpqS CKiRmU2TrWdjmaunGPu F8jdVmOpoNNqCjw+PHR hYmxlIHdpZHRoPScxMD BrXeBmtKwcGM4dZw8sR GVyLWNvbGxhcHNlOiBj z5byDLMdWSgjEO1vvFv rA1DwjGZ9OXGus5h6St 48dHI+ENJwUSW4uPjsF Tgjd091DxUfa8udBKF1 kKKhDPqvEZJ8K68dp3B 1MCRxCTCdVRU5qID6dT 0zqEujumfqJ4CinSNhX lH0VLX2kQTlbV7mfJhk qplfuM8pTlm+F02SWB3 BIFBCLW0BIqg6I3FkTg wvdHI+CY64LBCxCI91w FLwaGAak4rcfXm3MgYj IUAaPLA6gAjhEEfpg0S uYLNaC61gaZJid5J8YL OtpRxvhKHsDjAmhKT6k R8xZEpdjczol3iicenm Qiipq5aala58vS46W35 pLLweVHIwTLY8GSVaIW BotFvloe9zqZ2vLs1+I Zutz4yvp2icrLq3TiNj WHAjwbMmiCoeAEG6u0S tXd24T7JplPuay1WkDb x5wc04uQAjb1B6bMD9P SfvXKZyrN2nKIcnFnY9 UEUzByAfeN34lJGcDMe vBe0ebUrcbXwcUM0bPF BpsjdgYXZdxH0tAGDyk AXsuThvIJ4pPIBtwgep v722ZeHuQTD1CAXnzCE mU6EzmF7oNeUaZULoSP BbZ8IluUFkAShgI100T UyeTqV3NNRadiRsJ8Py PELbrRlnMbZ0k1Y2Wr1 Tf8ZoyordPQY5FLwnQB GrEgU3MvRuFpI7P3EjS cx7GPPvsWtuGX1wE1Iv BHIqljyymmuofWL4IWU gQGQwmK61aBNrSYigKx 6nj7Q1y747QFXcXNZlk V34En6koWjpTZZzyCRI mK7ebjwkp1xpuvqtSuO hLWMfKGy1ERu7XWQpoI axVmOcAGK5NyO9DIQ8n OZbjP3oeVglnqjdmT3o Oyc+M75ycC3hDUL8QSI 0vpwnKVMjcsBlRG17NJ 75I5ZzXckwuIHslZB+P PXienIyqIvdAX8fQcGr m4sym4WpPKnrZ2HnRWL lLSsnLbq6KAPvRBG8hP K4kS3cKXZoBKspa1E5a QT7T9DphxJwct4pd4lf RLPeNMhyY31mbTGqk2Z 9MDGhhWG4UJJolYpqDi IddX77Bmp+PGNvbGdyb 6YnJnofw5zst1dlbUw5 IjMwJSIgdmFsaWduPSJ 1s9NcDc05N07hAPttZL RoPSIxNSUiIHZhbGlnb y4dzK8dLi7+PGNvbCB3 xYU6eP1rRHNxJfO6ZSu mK405MkDijBLxYiajo2 yrj9exiZb7OtMlRWPqf tYxuEwdLAT2z6FkJx35 R35rKCqzMTXjHHKkXNR rLUWlwVdlkj7cyB2iLj 8+CF4oa5ykvd55vJ45o HI+YYNkTOZ8gOnoFZha DFTpuD6kALjqPzI1KMW xBcJhhP32uADvDCveOj 6dxSjqrNucNL3pYLFbz mohk865PvBok9fpUBMz uZTzOFioBML8Q16fp3E 5CABnVCPkKXK4qWD9jH 1hbGlnbjogbGVmdDsgd zOhkJagUHavGWuqU162 IHRvcDsnPlBhdGllbnQ vJyWaLHr9O1QkZni8VL FgfDycMR7ljAVkLOhkG q0hdKsfhZxuZY8wMLPa loezw926ZzCom6icPRC jpPXbYLmlRWG1Y98pd6 G5PVOoNOVxLVA9wQV4j I3orPegkwwxdJEdcEsy fmCnoUriRBdcZMobW65 6IHRvcDsnPkJpcnRoIE BxnCK0QU13LW61sVCcf 1M9jQL2G6TrPEUuoize colahVD3ABVhVHOugY4 4Tb6xhGrkYa4fRIVqIF Q0NGYdoSVyT9HbnE3tR fUgSMYqIAFbM1MrwSVs ABltD941KSvkUjD5RUN aqeHcP9JtWLClqTprLp V6c1O2Kv6RE5T8QL78I M83aFLoh0R1yDX2F8Dv IBGrdtejcsisxPY1BMA ePCUkcV74Hv1okCcuFc 5dCQKpXTH1YJXaqJCjK 6TskG2gXgFnJUWjMINh T1ZlkXEjSYpyN641POd gYpK3HQUrfiQzK6UeRS MasLetRbZ7p7U9Xe9AE Jb1NV08NK68fDNup9V9 pHW3V2MjQGVufhvlviw hcNQ5KAStNUKmtF25Sy 5udAcgJj3fDRBsBOP6I TSzcSMtD3JxvE6gVbXt GVGtOQFsE5XrfIJrWOh xH549PGouVzH5JVAkpc VmY6CyVXIieSolYpV5i 9E1Xl2NUIKtOD68OTY0 lUI0NM58VI73W4MiMal vdGFibGU+PHRhYmxlIH dpZHRoPScxMDAlJyBzd MvdXF2jUx5dHQDrJYUe dTciwANqDhLyy6lxPXU bKGzsZE4dyJrcM1EnqO S0TUBij6d0Ju61D52uD 3JvdXA+MDCeoXS2xAC5 wX8zFzGqXsJ5PNqaX47 6EcRsgWIkBuago3gpd4 ozdQo7TjY3YOSdgjSnw PqjFTL7f5PyZx22N50v IHdpZHRoPSIxNSUiIHZ rcHetzz8geW4eZc0+PG VugHH0wBY5pP1qRuSgB dK9KFhkT282YiDesDJg Qhzkv3zuh2nkaCt9XyS eOVEtcbZjnYgqUQR0x0 NeOe61V1WcfAsaf6MeD wf8jv67bUBmd6D4cKG2 F9VuDTRqstqaoVOrmUr fDX7vVDRvpzzsTWOinC 4tVFHyU2b3QnUdKzD1Q VsfA0WasyO7LPLmbMIa ZZfhLIK6S22pf2Z6UCI dYKNkWYQ5oOS5kI0bsN lnbjogbGVmdDsgdmVyd QllQCkhWNovH980GWUf kKgpTGZchB5wMZBnhSB kaSddXO6yKFTfgvvxNj nQLP2OGDKKWtepOLpSO ZXYCNTYXW55EU53kBRf l5I4oKO1W5KoSUZzrls ezotkdKM7GYVzIFLuuL 61jEQdTCmnXm5ud3B6c 763DVAwJFBrdT15Hs3j iScgREDfiXCJvP5ywef lt9wzajzoMuBwLSXcSY v2DTs8IFUwqFudZzBwV ZR8AdD1RIU6uXIitA3e gVpjzkbipP5tHfv+MTI xRKbvTIy1OGxuwQE+PH ZcOCU0iVtoKBszVFPfq G5gYKMsX5h2LwMeTlZ9 USddH4XlKYWodaufWp4 9iA6zOsGhMiM0IBufF0 NdtmJ2SFAxxKKaQQjiV NZ4S04pe8A6ZMVxKPWg YVK1xNB0hX1pxAgqkae gbGVmdDsgdmVydGljYW aySOsvK978CVPkkScuI aY4LIjlONHoJU79AB14 rFEte7X2aFF9O5GuTHB xkeoxjxpjqNN2PDRpIU NelS22fANmHWyaSa2pm 0A9s048TIJkHTSpsL07 Fo3acNhhGSZkfQDWoP0 wiyzkc6eokfhaHbMxOB RkQQk2LRg4PIQwwMruF iAjPHL8QqN6ULC0xRPg bK2oiLnhqpjtrV4yFef +VvNnFJarHN95YZ66fV Dpm3E0uGX5K1QhVOPlg yufysstmIX7UXPxPLDb fU95gAKaNOzdSw6hz9B 0c799AKFaBHCgyB31Ut 9jmBmuCBZhbFXPrM0ds nwlh3xetkbwTiZrKQWf HKb2RXw6IJQztVpfOyK tJBO8JdZ8HYE7dZBytU 5kxLhttufnrQ5mTww+U vLjvZFpuO8bLF21CQ44 X6WtQqjkoNDewOZ+PHR hYmxlIHdpZHRoPScxMD NsXzUihGiaTY7bQp0lC GVyLWNvbGxhcHNlOiBj g0kpFJHhZUsyAZ4fnGw qR5StlUA9YPOjd6w3Kz 47O86hT2EawCF+PGNvb SX2qKA5aA1dZlMtSlB1 ZQtiM611BaFuuXVrPjv fw9fjz9hviQh8DzRuJU VblmBskBbeHPR3v6RzC i96S95gZOylTMUgSUEc SCMlCULqeZtvcg9jpG3 wIi8+OTIhuKC9hDD7gU 8dEfTeOaB9GAcaL435L pEmpBOwLyivG38uC4Mc dXA+JMKlWet4FFMvjKb uNM7moWGuJRstBz3nAG Z8NkEpQtQoUAnfY5PvJ HBtmvdevcdngGM3XQFp XSXbqC64Bx1cwSheTj3 vOJFqGCS8KRNbyHUfB6 ZwdW8bChIpFQItRELvV 7TwsOSlFDulF672YWvk WiT4KTZavwTcA6ZoAHU stXogUjU2p7B6Vb9CsM lopHPoKO8aEjZoZAp3N 0DoZmj5JGFlnVjmSG0l gXLgGQgvJb9ffKgpwHg fFZ0mNLGavekof555Ve Hzk4lwMULfgDFnZUxyI LF1N74dk4Z5UUAcRTTy HVR9aQM9uK1elLqmumx gbGVmdDsgdmVydGljYW vqDZkhY574EHSijAqeJ aYXZpx3N2VlFsk4KEFq fJkjDH7weOKeFQcrPm0 hgQryyGtyNZ8bPFAudu tyr707LsZhk9ugWLYdt KClDOnfWKK2D97eb0Y1 FSUtGCTgOLQ8bYT1gF8 hbGlnbjogbGVmdDsgdm PjdNvkTHahTSwoA854Z NXvcLcrYq9TVrc5E3Xs Vis8TFCuwQjdQQ8gwEH vZLivHh9toHjlcMthRE 3nIDWvctwxb712PjBli 6gcSGTuaYVdORfrTEL4 Z95lu2W2EETtVBOuYDB 0aOW8lN2fgKzgdfdbvT VmdDsgdmVydGljYWwtY EwdJ582CLPvbPydGiBp eWVyOjwvdGQ+QC69cp3 7U9LbTjzmUal7FBVgTG H7pUV3vO5dPLIoCYxrz 1M7cLC8E3BjddMjyu9j b2xs (more content not included)... Normal [facility] Priority Order-Juan 2021 Priority Order-STAT Comment Invalid Interpretation Code [facility] Comment on above: Result Comment: Rece ived Performed at: [facility] [address] [address] [facility], [place] [id number] [facility]ly [facility] Mina Jones Performed By: #### S ARS-CoV-2, GEORGE, [id number] #### [facility] [address] [place] [address] SARS-CoV-2, NAAon 05-25-2021 SARS-CoV-2 (COVID-19) RNA GEORGE+probe Ql (Resp) Not detected Invalid Interpretation Code Not Detected [facility] Comment on above: Result Comment: This nucleic acid amplification test was developed and its performance characteristics determined by [employer]. Nucleic acid amplification tests include RT-PCR and [...] result in this assay. Performed at: [facility] [address] [place], [place] [id number] PhD Shalom Gonzalez Performed By: #### S ARS-CoV-2, GEORGE, [id number] #### [facility] [address] [place] [address] Family Medicine Phone Visit - Telehealthon 05-22-2021 [...] 6 months ago. Has been using DayQuil [id number] with moderate improvement. Review of Systems Fatigue: [...] only communication with the patient located at [address] [place] [phone], with no one else. If it is [...] [place]) Telephone Est 5 to 10 minutes [id number] 2. Fatigue (R53.83: Other fatigue) see above plan, rule out covid. Ordered: Rapid COVID Antigen ([facility] [place]) Telephone Est 5 to 10 minutes 60143 3. BMI 27.0-27.9,adult (Z68.27: Body mass index [...] 1035F Telephone Est 5 to 10 minutes 18383 Follow-up With When Contact Information Irma Burt [...] Methamphetamines, Pre (more content not included)... Normal [facility] Comment on above: Result Comment: Elec [...] height. This can be done either in [place] ([place] or metric measurements. Note that charts are available to help you find your BMI quickly and easily without having to do these calculations yourself. To calculate your BMI in [place] measurements, your health care provider will: [...] problems. ? BMI can be measured using Lao measurements or metric measurements. ? To interpret [...] Reviewed: 03/20/2018 Else[employer] Patient Education ? 2019 [employer] [facility] Physician Orderon 04-27-2021 Physician Order [id number] 8#[id number] [facility] Coding Summary.on 11-04-2020 Coding Summary. CD:[id number] BTz2eIy+PGhlYWQ+PE1 GITZeM99ouFUayJ4TT0 pJVR8NCWJYXKOKCP6CX H1scXM7REwgW1AivsSk XsoavERdUF26KDp0OML 8sYduPJfrxL8ieKGaN6 t8HdOfRT90pD05DSnrG XLlDmL6VhLfkhnrgCGa A9ztSmFchZNnDga+PHR hYmxlIHdpZHRoPScxMD NjMdAxaXxsRW9bWc9gC GVyLWNvbGxhcHNlOiBj g3ewKMQyGKbkZJ2rbMp iX3VpzNJ6SSFuh9o5Ky 48dHI+BFYvPDP9sDsjK Fxhw771LhJtz1siCNP2 aYEzMTprNHF7F01pu1G 9GBMuSUDkEXL8xNG5dC 6zfNvlnaizF4WoaYQmM dD1VXB3xWYtwL8psKjl ozfomI0dAmp+M07OXF1 CFFFUAF6ISto0B2VrWd wvdHI+JC47EKDeLF26m ONtpCQpx6webNy8DdKi JYHhQFO6dPdwITnlz9Y zLOUyL46bcLXuz1R2ZA QfnJovxMTiRrGkrNN2k Z7tDIscpfopn7bbwvcr Wwxyn9mnmy27zM25W72 iHGphTIThSSG2ZTZrYJ RbzPyhyn6isW2zUi3+I Xioa6cqb0utxJv9LfIh WEJoytZjvJgdBAO9i4Q mTl36Z9IanRjbp8AnGm s8ow71cNGen0R1cJQ0A RidIYXtgN2iKJbnPyT0 TKCqYgPlhQ98mOBbLLl kMm2wrKxcdBzqGJ3iXX KtdgjnYGBeyD2nDOOaa ATcfLhbPC3jVTClippd t237BbBsSRZ3SGJyvWK oF3SjuX3rAaZcDPPtVI LvQ8QuqQXxNJaqX624K BcwRbE7IVEyizFaG0Jh DAAfhMkbEoI4v4H3Kh0 Op4AdlhqmAXX8XZpnOZ W5RtU3FxSeCkB3Z5PmL yj3IGGfnNbeTE1uB9Zh XDFujswbalyhmXO9NUV wAFDzzJ51hYGsGCxlIu 3fk5E1y419ZZAwKOQxh D29Qn2uwLxdZAHpsGSO lJ7jctpvw5tgezuyMaD mYJMmYEx5JGt8LNMbuV snSeXvKTN9RaD7PYB2s NJumS2bzRlwtjbuzW2o Oyc+Y49ocK9aPHA0MGG 8qgfpZXBtgyJwJB50CH 19W1EdKibxmPXgaUC+P QKrmwTpeZhkAJ5rTjMk m8jat9RnHAxjO9VnFHS lYNfqLrf0ZLAxLRC3nY S1cD2aWBIgDYmym8E3i ZC1H0YeztKtsx1fs6qy EYHoLOueQ09hfSRox1M 6HSNcmMR3YSExeAdkBp ItiE75Vmz+PGNvbGdyb 4EuXkivv4ejk9wxoHb4 IjMwJSIgdmFsaWduPSJ 2o9ZhWt03E39uUQylJB RoPSIxNSUiIHZhbGlnb f1unE9iHw1+PGNvbCB3 wIY9dN5pKKUjLyW5SZg jL186HpIxvGVuYvsyh6 dsk6rnrAs9SvXnELVxo iMonTxeHSW8z4BzDw14 B70qKQjyBPZmHGUlEAX xMVZkbPlref6uqL5lJe 8+VB9ju6swgk90lJ41f HI+CVKrYKU9uOyoPVov GOXugW6uECgtDsJ2LAF vRgRqgT45vOCuRTdsOn 2jmVdbwEmeBZ5tGNKay rota097KsHgu1lhRSKm gTRgVQpsSJE0T49np0P 6WCZsABQjNDN1aSX9xE 1hbGlnbjogbGVmdDsgd lXvsRzgLJknNOgeZ374 IHRvcDsnPlBhdGllbnQ xOgOzFJc8W0KyPoe3FS RmwCbqPS6mlRNmHVqgN n9ikEfhjZgbUI2wABWh vtnse369DxYoz5dwKEJ uiQMhVVhgHMG0F68ct3 U5GMRaIEVbNDT6fAF5c O5jpXpwwysuvRFgtGxp wlBnrIczSJsgPEtdT94 6IHRvcDsnPkJpcnRoIE CciYQ1XC00QC25hLHqr 6B4rQJ6K6RmGMGykvux ozsrpZM3YDTaVKBulA3 9Qg7naIndFh0sUEIyFK G1ULAshDGbC6HboF5oE cDhHYOdYQLfO3RsyCFx ZKbrV469GEwyPeA8IXT vnoBcU9NkVZSpkAupXq G0a4T1Zf1JM3P9VJ20M F95lERpj6X5qCB1T8Qu YOCluuzeeymleRE8PWD tRLKcyL86Nh2lfCepTu 8fVMUrZWI3IUSluBEjK 0WfsT3eLlJuYPViDJHq D4XaaUGgVIkbT986UXn xOyE4OHEyscEgW8HzCO RmlFprJwI8j3Z7Rb8VI Pj9VI90EN61fSSmn5H6 dKY2M7LkJNKmoxqnjij jnNG9INIuNGClwW07Ec 2zrLbrCc5cGGGsUKS8X IVyxNBtR4RtkO5kIpXx SJRaVECnL8WbeTXfCGr iZ985YSieLnJ1AIKqzp JtH7WvSIPrcAncJmQ1u 4F8Ga5GSCJpBU51GYD9 yJH4EZ29SA00L6SoCqc vdGFibGU+PHRhYmxlIH dpZHRoPScxMDAlJyBzd UjyHN9yRo1kGJZzWIOz oHakpRUbVyLdt8beUXG jSQugYV9eeSuiG6QtdS B4PXBrv7l3Kg92H11sJ 3JvdXA+ZKIukMJ4kEQ8 uQ2wCvWcZzQ4IQlaW60 5KyQpkPKpIvcow5ppi5 hgmAz9MvP9AJBgunQuv FbhAWL5i3OhGq45P27t IHdpZHRoPSIxNSUiIHZ oaDtciq7pvN0lPe4+PG ZttMH8jFY9lB3sQzKvZ xY7FYtyP685LzNjaKNe Bfpbb3kiy3judXf5BlV nWKVapxMbcKtsFKV1s2 BbTg84L2JvqIaqh6UrR zy5na84mTFpk5C4sXQ5 X0HeETGflelpiDPmxDk fTA5cMYBbcefhIGJjzM 4vJICnS5t2PhZuYvJ1H CblD6RqeoG1PYVnfAVe CLbsQVJ5A63wl3O2IJM dWTMhRXS2sNZ0aK8cpX lnbjogbGVmdDsgdmVyd XomNBgqAUhuE000AOHc rBmfEPZcoC7mOVNzfQE avGlqUY6rZAXqisnsMj sJZT1XIJYNBayiOWpXX HUWDSABWI38TM97bQJi p7Z0tGW9Y1HqURKjulu leafayML5KOIvATQyaJ 84yTUcBGvnIu9jr7O5u 828QNRsYVBywV79Mb1o lYfdJHMzkOQHjW0mmcv yd3mbeityIcCbCVJxHX h3HJe9UGGrfLmfIjSsL UG7OoP5FIW3jNTehI6d hRfvoyrfoL0cBsa+MTI hYWwsCWu3YTvzrYP+PH WwLOX9yEcaODacRSWne O3fEMVqG3o5FlNtFzR9 BStgE3VnCCDvsnocJf8 1pR8kHzMhZuM0LVjeM0 UwfoH2JKXlpWAiWDjcV YF2U97mv8Q9IYVhAAWl NRA1bIG2iN2moIladpx gbGVmdDsgdmVydGljYW stZSysL634ENPywSzkE uK2IFqsSDFlSZ52RI27 uKHni3Q8bTC2W1BzRZE ohsdchgxneUM9XWWcKP YirC94mRDiCQpjYt7nt 9U9c869KZDkNGEtcC47 Bo0leOagUWQygIXTpI4 bbeeac0syquhsSwUzQQ PoQKg6TBc0OVCgoOgiH zTiEDF8NvV8KNK1tADv hO1poOemxxcctB1sGjw +LzHtDBvtWK93VY50jI Ttz9Q2eFW0C0GrRPZbn ckweodfgQP0AMGeOJOc pO96cOZoEHpuXa5cr1E 9j070LPOoJZVdvP91Je 2wdHqcEIUksKIQqL7vt vxkz9ktdekfYeMwXYZn KRy5WZf1ZGOovFcaTtL gAGW0XqN2JVP6cQJhzY 5lhJojhqcwjJ1fAav+T 4K1fSJ9rRYqyMzhpWS+ XN63fb45D6SgWgikVgl 5ZTMkWBY0iAX4lR4uII DyYIqmv6W8qGK8E2Qca aFuhl3jy9seDLWsOEqr Y32zbJVvb2Q7WBMnoUN 9ECMrqWazXaThxW61Hd c+RBFztXqad9GlIigun 6lmd3uzwTr1AeOkVLIo inGtuWzwXKD0q1DzLl1 8X67pVAcrCXHdHXQyYV NdELPjlSfedc5wgL0kX i8+JWKxhCX1wCF1uX6a XiXoStC9GVcdX819KfZ prNGzMmlid3qqs2wvxR q7MsEcFWVeztZyrRrlV RN8g9HrUo23P1GnuQsu t7VdVuf0yc51hACsv4Z 4qFV5Z8AeJHDuctrvkW IqrHkvWN5iZKMewahcT FQgvF2lJTTtN5q3HgWr MnS1WSxvP2DadyM8LTD gtIXoUQFjwTTAsK5ukw rhh2vhlaaxCfKqRKNhL Rc6RRi9ZOJxlMopPpKa QLL8HpE1BAM2kKNhlY7 gcJyghhlzeU2aEeg+UG s6g5zckNWuIN2fwFA1M T71LA63jWEkr2Z2mAT8 X7FoEHNsyuvmzlsrrIL 3JVJxTQSthE22Ke1kwW gmZg7wZYMmCYE5UUBkz HSkX8OzzQ6hWpGxLGXi KCLpD4ComYGdQBinQ72 2IKmwNgK1RMDbymFsB5 RaDKAkcNppHhJ3j6S3S u9PMT34OQ37XM54vGSy k8H5zID0D7RzOWOcakz tjhmhkQS7IWMlPPAgsS 53Ms6jtAalIk5jZRWgM PU5EIZqnKMmY7ZolR3t EgNsRCTtHWZlQ6DpbTP dGBhyI904ZDcjRgC9FA CvjuDwW4LhIVGplRulK jZ7q8D5Zx4EXv53TO96 QS00oWSba3A0aWN6Z4R eTPFqvyiourxfhQI0XX FtGGFbuC66Pv5vgRehT n1fGRTjBLN9KFZxkSWf S5QpeI1fEtVdDXMsZWY eA8OjgAJlSJvaJ080WW bmRzF5XGUdzgDkE4GhE ZJreNjjEgC9h2G1Dj2F ZScwstc5M9FgMdnrjLE +ZA11EXSeRV73wQVxqY Mjs6mfrZi0QjJvIGXrA TU6dHiwEEsbk6ZpAMOm Y29s (more content not included)... Normal [facility] CT Chest w/ Contraston 10-29 CT [...] ml's: 100 Normal Flores [facility] Coding Summary.on 10-28-2020 Coding Summary. CD:[id number] WAm7qWe+PGhlYWQ+PE1 OVXBuY02wvUPloO0ZN7 lKLJ6LMCZKONRZUX6DK F9kjLO7HZtzN3IlanKs NegjaTNbHS65NUd6UIG 3oNfkFLadpJ1otUAxS4 g8VxHjQG54bO66QFgwC NCaTkW7YkHjjbyyoMHz Q7iaXpDoyJFkKrz+PHR hYmxlIHdpZHRoPScxMD GoQqBcdQmiHV4eZw6qQ GVyLWNvbGxhcHNlOiBj v1uqQPIqQSliLB1dpQk xT1NzdIZ5YMVsb7s6Yp 48dHI+RODtMWG2mCkpH Wsmi997KzWff2ndBRK0 qTEfIEqkGGW5R28wu6C 4DCAsIWWrSOX3oXT8oU 7fbTlyqsmwK3PkxMOnF eF8TCZ2lZOpvK5coAfu ilanhJ9bDfp+R11MFO8 NDGQMOT9HSio2P1AiHq wvdHI+EU33AIHmYO17y PHumMJgg6vhuIw9CtHw RYQyHOQ5iDwrQJxaf7I fLPCyJ02qtKHhw6Z3GS MueAjzlFQaCmZqgKV5p Z6dIWnvudfjj0qfbeew Czxyc8ainh90qR13R85 sYJsnGIPsOLC4JOYfWJ GwxXqxeq4rhE4oHm7+I Kpsm8ila5txvMu9PfNs AVFbjmPpqBcvMPU7d4Y jCq70Q4VsuAqom2YzFc i9ja26jLLnz0P2dIJ0E SbhJREnfS0nSQeaEmQ6 ALYtKzArzF74gNDcTUq qBj2caPayvSrpMZ8bWR RotpcyNWNbmN4jTBSfq JRygQqdWD2sRAMxolak w402JxCvCAA4XJLzyOU hN5GvmW2vDrSvVRCeGH MaC3PfhVJqOUivA940Y HjcXoO8DXBglvTcU6Qr XEMyhBceIyM8j5E2Ge1 Pv5ZxoldjBNC8NQewLF C1GxVxPtCrGkU9W5TgM ue9QRPwgObmQQ2oS5Tc KREkmlklrocfsKR3RGT mHWVcwD08oDNgUYniZj 9ko5Q6s923DNYtHRTrl F68Ky2wyLpwFKOxrSMK bI5cybuym0qrjzxjLlT iCLVjAFf6XAh4IJJzbI cmRpPiFXC6NqZ7YZN1v WLycM2stXlwqjwjrX1h Oyc+W63qmJ6gCEH8CYY 1obrbLUWjteOfTE03VR 59Y2VxWnqdrHNvrQQ+P PVoymBmyHdbNR6nTgLi y8rgi4MvWRkpP4BfVXH lDVzcXxw2RFQkPOJ4mC X9dM9qRXXiJYhpa5C9p CI8L9IetqXffk8vy8fv AXYrJDfjD01gvASpv5P 5GIOopYL5APFwsMznIv QnfW08Yqm+PGNvbGdyb 9HoTwnrm9ufu6mjpKl9 IjMwJSIgdmFsaWduPSJ 1v9OeUk17V59rQGrlOU RoPSIxNSUiIHZhbGlnb n3rzG9hAf5+PGNvbCB3 mPV6wD6tBPUzDtR9ECq hI803MmYxjTBpHpbpw0 ggt8zmlNp0HuRzZEWue cVlfDatSCS3c6QmXm47 C64oKUvoUNSmGZWlPIK zVWIqzHwsim7zuQ7gQc 8+UP6aa1hprx60dD56a HI+QAEjBAI5bFqjXLaw TBIpvG9bNBqnUjS1XWV xUbEygX49eOPeWUtvQa 2nzHmyvLkhSM3fLJIlh bnuc261CpNhc4skXNZo sJDfJRogHIY5U88lr1I 2JDItNRLpMVQ0iFS7yZ 1hbGlnbjogbGVmdDsgd gMddRdaRIhbLBisH876 IHRvcDsnPlBhdGllbnQ xYnEjTOw3X4KcEyp4QU UmrQfoHV1aoJCdJTpiK g7waHiluYgiOW8uURUn snoqa159OnWnm7asYNF eaQWsKEwbCEU0I79kb5 Q0AQKuXZXnMMU9bDU8l R4raKduovqcyZTilVlf ffKugQntTFkoLZnzK02 6IHRvcDsnPkJpcnRoIE KcfCI2KU54JY30xYCcj 1M7lEL8S5EhUDHoooix licpqVL5EEApLBNtqZ8 5Dn0mtLatPx9nPLFoWI T7LCQxsUBtM0YmfT0gS mKbQDJtDPNmW5NguARj VUohC999QTliHaI3PNP mvfXyG8NaHMZckZswHo Y0d1Q0Vj3YS5V9HY76O G73rBSew4X7yEA6V6Cy RNWenhabozwhxHD2AYC jDIVuhX04Kb4weWyfIa 1dYFZrBKG9HIUwbOInE 1TioF6rIrNqTJEbNVRe M3QmtAFcUErxZ022EWp qXoS9ZKBassPjK6IzOB EbxFceTbO6e1J7Ua9NN Kc8QH41DJ30nAOdh3D1 cLC0B5JnERFvjkgqxuq uvUY7MGYbFNLwrP79It 8ldMrsVc1eNLAqUZE4A ZKkoZJmH4NrdK7iFmRj WHQcZLVqD1GjcPAeOMl vA180PUeiCiV5IMTysz BrW2HoRTAgdFikWbF0t 2I5Eq8QISTfBJ77JDW3 tRM8CR09UK31N6VuXzm vdGFibGU+PHRhYmxlIH dpZHRoPScxMDAlJyBzd JxjLC2yLp9mQUUoKUQo vRtrjRRoWeZeq4kyQWA lSYhlXJ3hhBlwI7FidG Q2OFCxs6t6Fk80H70cP 3JvdXA+MFFojLY1aIS5 dM4gDwQsFgS1MAqqS62 0TvVgjXLgYndhl2hnw7 ltsKo9XkP0TVTlisObg ObqWWE7p5McHj10Y75c IHdpZHRoPSIxNSUiIHZ trQjewy9zuP2hKc7+PG EpbHW7mSN8eH9iLcOwK hH6QQndE452DrBbwFHx Yuvha4yxk3ekoHv7BuH zZFNfufGgaKssRCM5q8 GsOj65N1RhmDwdu8CdT cf2xh44sMDyr4E1xXC8 F5QgZVFtuvtoiIOmfBd lGJ5kCMGvcjqxLXOuyR 7bEIIcF0q1KuNjWkD5L IqnY5HrnzH6LSUxzMOi NLyiAEU6S59rf4M4FTL sKNGuTMK7uVZ5rX1zdV lnbjogbGVmdDsgdmVyd LvyOOiyYMgeY201NQUq wUblDSAxcL3cTBTijTQ ewAnpWZ0uVBWyqoilDr uMFQ6NYPQGMzioBZqIO PYFHFHOZL35ZD90kFOn a0F1kHK7J2QlAMFawio huizzoDB0GRPeRASwzO 63qSWjKZanVd3ud4I5a 617JWDdHCJacZ59Tf1n mAkoCVYjbYGMpA7gtlg kl4lghgffTsWpFQIaFE w0AQz2QVYinZgpMgYaU AM4VuO0ULW9bJLmcQ4k sTuhsffbgO7sGgg+MTI yTQkvZFa7BZhoaRU+PH BvXYQ7jXavALpxSTRhn F0cCXRzH4i9GvSxWwO3 TRxzM9SyZOEkulbhOy1 2pR0eXeUoCmX3VWxoJ0 DmerH1FGEjyUKjRHldO OS9Q95nr3T8GTHeRBVu CQY9aTR3mS2ynQtfxfc gbGVmdDsgdmVydGljYW acQNcbN354WALjrOtsL zY2MNghFIVbUD27MF70 qGXdu9J7cER9E4GmTXF kavpckozhjHV4KFFzIE UrvR07fJJlRJjxGa8uk 3O6s210BVMrKOUovR77 Gg3zbJzuOIEinBFDjA8 sfilxj0vpflatSsNjVI NyEJs5UTs6PQIwqRfsD jNwZMM9FrQ6VWJ1zIHq gC1eeNiypvrecJ7iBci +SqEpNTegFA89XO68eA Yok8Z0bJP2W2KaCJXml hqeezraiRX1LVGeBNKb qZ25hVQlMBdfNo6tf0D 9g718URJsVDUcvP16Fz 4ylKzzUPHwlHXJlJ9wb ueaa7zlwqvwKxKaMRGd XYi5GHy0UHZniSbrVcT jYDT0GgG2JXN0tRZmkY 2gsNnnjjjpfM7sWdt+T 1P1fZP3hHEjjOwzwSB+ IG59av38W7TsVyglEie 3ECQjNVI8zZS5tW2fWB GsINeqk8H0aYC2B7Tez mHtuz5zg8xgBCLqASpk Q17igDNli7O9OLElqED 1SFTxkOjrYaMxhD79Tu c+ABTbqFoce3SmNdjww 0smi1yahXa2RtUsCXPa rjOfyKdqBDQ4k9RhFp2 2X90qILkyWBEnAZNxSV IgKFVgwWiteg0caV5xA i8+CDWqmCT2wPJ7iG0c HyFxZtC6RWsoZ578CvP yyYPzAvjjp4nkb4vqyY k8HqHxOLMfobOteYfeB TF1k3KyRo08H0RzbDiw x6EkOpv9tx30gFKnl8E 8gCJ0C1AvTXXvmfmcbP ZfqTdoKV8kMYSnsrqfD VJjdI9cDDViR6r1OtBp GeL1GIpcE5RjvzM8YWO akFTiZNYtiOCXkO4haa hwz6rbzhrjQdDxHMHiC Eu7CEj7YZYbkXnrGgRn ZYQ9DkX0PCX0wSHodW9 ofYzjrjehqT1wHxq+UG y7o6pzbFBbMK7jgGQ9S N35IS45yPVwu1O1bGE2 W9FqSKUyzuvcjtwukDD 0UBQiMMYceS56Mi5ayM jlEr4hEFHlLND2EDOoj SZvF7MvbT3iEqOzIVEs FHCvB9SjoPUaEEhtW03 8KRskJsU6JMRurlOmV2 HpSYBmhUlzQsP1m1I5Q y4PDX89KL89ZV31rIPn g7I9cCU8Q9ZsGMBucrg hbadovUQ8CHTaTPIwyM 58Zk0nsTglKr8lTZCkR YT1XVIbrQHtF5KkdC8z AuXwXMYrXBAjK1FxgYK pSUwzM087WOndUoR8NP TebuSbA6EeGQPflHiuB uJ1x9Y1Fe9RWz44MZ15 FU19fQDma9G0eRA5Q7D bLSXtqupsljfnoSU0UB YhOQQisE20Tw9rlDxaY r8yPWGnOJT4ZCVbnZYv B6AnaW2vPsVaOADoMPD pV0VjpDZqAObgR348CG yqTkH1WHQzwlGkA6EtO FJyaTmpAeY8i1U2Yr4J RTfxehj6C4GfMktqzFP +NI96ZVQiFH58nXEqlP Wbd9mrjHm8XaBvOJCqA JZ6yIvsWKaau4RpNZWg Y29s (more content not included)... Normal [facility] Consent for Treatmenton Consent for Treatment [id number] 44#[id number]:[address] [facility] Physician Orderon 10-21-2020 Physician Order [id number] B8#1.00CD:[address] [facility] Consent for Treatmenton Consent for Treatment [id number] B4#1.00CD:127 Normal [facility] Physician Orderon 10-19-2020 Physician Order [id number]#1.00CD:127 Normal [facility] XR Chest 2 [facility] XR Chest [...] M.D. Transcribed by: SHAYNA Technologist: BECKI Corona [facility] Vital Signs Date Time Vital Sign Value Performing Clinician Facility 07-26-2023 11:27-0500 Body height 170.2 cm Kaitlyn Jasso MD Work Phone: [facility] 06-12-2023 13:00-0500 Body height 170.18 cm Shun Hill Other [employer] Other 06-12-2023 13:00-0500 Body mass index (BMI) [Ratio] 35.24 kg/m2 Shun Haleormack Other [facility] [employer] Other 06-12-2023 13:00-0500 Body weight 102.06 kg Shun Hill Other [facility] [employer] Other 03-15-2023 12:29-0400 Diastolic blood pressure 89 mm[Hg] DO Irma Burt Work Phone: [facility] 03-15-2023 12:29-0400 Heart rate 70 /min DO Irma Burt Work Phone: [facility] 03-15-2023 12:29-0400 Respiratory rate 16 /min DO Irma Burt Work Phone: [facility] 03-15-2023 12:29-0400 SaO2% (BldA) [Mass fraction] 100 % DO Irma Burt Work Phone: [facility] 03-15-2023 12:29-0400 Systolic blood pressure 132 mm[Hg] DO Irma Burt Work Phone: [facility] 03-15-2023 08:54-0400 Body height 170.18 cm DO Irma Burt Work Phone: [facility] 03-15-2023 08:54-0400 Body weight 90.71 kg DO Irma Burt Work Phone: [facility] 02-08-2023 14:45-0400 Body height 170.18 cm Shun Hill Other [employer] Other 02-08-2023 14:45-0400 Body mass index (BMI) [Ratio] 34.92 kg/m2 Shun Hill Other [employer] Other 02-08-2023 14:45-0400 Body weight 101.15 kg Shun Hill Other [employer] Other 02-08-2023 14:45-0400 Diastolic blood pressure 80 mm[Hg] Shun Hill Other [employer] Other 02-08-2023 14:45-0400 Systolic blood pressure 131 mm[Hg] Shun Hill Other [employer] Other 01-16-2023 10:35-0400 Body height 170.18 cm Aydee Nadiya Other [employer] Other 01-16-2023 10:35-0400 Body mass index (BMI) [Ratio] 35.2 kg/m2 Aydee Nadiya Other [employer] Other 01-16-2023 10:35-0400 Body temperature 98.3 [degF] Aydee Nadiya Other [employer] Other 01-16-2023 10:35-0400 Body weight 101.97 kg Aydee Nadiya Other [employer] Other 01-16-2023 10:35-0400 Diastolic blood pressure 66 mm[Hg] Aydee Nadiya Other [employer] Other 01-16-2023 10:35-0400 Respiratory rate 18 /min Aydee Nadiya Other [employer] Other 01-16-2023 10:35-0400 SaO2% (BldA) [Mass fraction] 98 % Aydee Nadiya Other [employer] Other 01-16-2023 10:35-0400 Systolic blood pressure 105 mm[Hg] Aydee Nadiya Other [employer] Other 09-23-2022 10:45-0400 Body height 170.18 cm Aydee Nadiya Other [employer] Other 09-23-2022 10:45-0400 Body mass index (BMI) [Ratio] 35.13 kg/m2 Aydee Nadiya Other [employer] Other 09-23-2022 10:45-0400 Body temperature 99.2 [degF] Aydee Nadiya Other [employer] Other 09-23-2022 10:45-0400 Body weight 101.74 kg Aydee Nadiya Other [employer] Other 09-23-2022 10:45-0400 Diastolic blood pressure 80 mm[Hg] Aydee Nadiya Other [employer] Other 09-23-2022 10:45-0400 Respiratory rate 18 /min Aydee Nadiya Other [employer] Other 09-23-2022 10:45-0400 SaO2% (BldA) [Mass fraction] 98 % Aydee Nadiya Other [employer] Other 09-23-2022 10:45-0400 Systolic blood pressure 125 mm[Hg] Aydee Hearn Other [employer] Other 09-04-2022 11:20-0400 Body height 170.18 cm Aydee Hearn Other [employer] Other 09-04-2022 11:20-0400 Body mass index (BMI) [Ratio] 31.32 kg/m2 Aydee Hearn Other [employer] Other 09-04-2022 11:20-0400 Body temperature 97.8 [degF] Aydee Hearn Other [employer] Other 09-04-2022 11:20-0400 Body weight 90.72 kg Aydee Hearn Other [employer] Other 09-04-2022 11:20-0400 Respiratory rate 18 /min Aydee Hearn Other [employer] Other 09-04-2022 11:20-0400 SaO2% (BldA) [Mass fraction] 99 % Aydee Hearn Other [employer] Other Encounters Encounter Date Encounter Type Care [...] pital Start: 09-20-2023 End: 09-21-2023 ambulatory KAITLYN [facility] Start: 09-18-2023 End: 09-18-2023 ambulatory SAGAR LUKE Not Available Start: 09-17-2023 End: 09-17-2023 ambulatory SAGAR R LUKE [facility] Start: 09-17-2023 End: 09-17-2023 ambulatory KAITLYN [facility] Start: 08-31-2023 End: 09-04-2023 ambulatory FROYLAN Rascon [facility] Start: 08-15-2023 End: 08-15-2023 ambulatory IRMA KD Not Available Start: 07-26-2023 Chart abstracting Kaitlyn Jasso MD Work Phone: [facility] Start: 07-18-2023 End: 07-18-2023 ambulatory SAGAR LUKE Not Available Start: 06-20-2023 End: 06-20-2023 ambulatory Shun Hill Other [employer] Other Start: 06-20-2023 Telephone encounter Shun infante [facility] Start: 06-19-2023 End: 06-19-2023 ambulatory SAGAR BUTLER Not Available Start: 06-12-2023 End: 06-12-2023 ambulatory Shun Hill Other [employer] Other Start: 06-12-2023 Office outpatient vi sit 15 minutes Shun Hill [facility] Start: 05-01-2023 End: 05-01-2023 ambulatory Shun Hill Facility:[facility] Start: 05-01-2023 End: 05-01-2023 ambulatory DO Irma D Burt Work Phone: [facility] Work Phone: Start: 05-01-2023 End: 05-01-2023 Patient encounter procedure DO Irma Burt Work Phone: [facility] Work Phone: Start: 04-10-2023 End: 04-10-2023 ambulatory Shun Haleormack Facility:[facility] Start: 04-10-2023 End: 04-10-2023 ambulatory DO Irma D Burt Work Phone: [facility] Work Phone: Start: 04-10-2023 End: 04-10-2023 Patient encounter procedure DO Irma Burt Work Phone: [facility] [place] Work Phone: Start: 04-06-2023 End: 04-06-2023 ambulatory Shun Hill Other [employer] Other Start: 04-06-2023 Telephone encounter Shun infante [facility] Start: 03-20-2023 End: 03-20-2023 ambulatory Shun Hill Other [employer] Other Start: 03-20-2023 Telephone encounter Shun Moncada naresh [facility] Start: 03-19-2023 End: 03-19-2023 ambulatory Shun Lzi Other [employer] Other Start: 03-19-2023 Telephone encounter Shun Moncada naresh [facility] Start: 03-15-2023 End: 03-15-2023 ambulatory Shun Hill Facility:[facility] Start: 03-15-2023 End: 03-15-2023 Admission to same day surgery center DO Irma Burt Work Phone: [facility] Work Phone: Start: 03-15-2023 End: 03-15-2023 ambulatory DO Irma Landrum Burt Work Phone: [facility] Work Phone: Start: 02-26-2023 End: 02-26-2023 ambulatory Shun Liz Other [employer] Other Start: 02-26-2023 Telephone encounter Shun Moncada naresh [facility] Start: 02-08-2023 End: 02-08-2023 ambulatory Shun Liz Other [employer] Other Start: 02-08-2023 Office outpatient ne w 45 minutes Shun Hill [facility] Start: 01-16-2023 End: 01-16-2023 ambulatory Aydee Hearn Other [employer] Other Start: 01-16-2023 Office outpatient vi sit 15 minutes Aydee Nadiya [facility] Start: 09-23-2022 End: 09-23-2022 ambulatory Aydee Nadiya Other [employer] Other Start: 09-23-2022 Office outpatient vi sit 15 minutes Aydee Nadiya [facility] Start: 09-04-2022 End: 09-04-2022 ambulatory Aydee Hearn Other [employer] Other Start: 09-04-2022 Nursing evaluation o f patient and report Aydee Hearn [facility] Start: 07-12-2022 End: 07-12-2022 ambulatory Eprlarolo Márquez Other [employer] Other Start: 07-12-2022 Office outpatient vi sit 5 minutes Perla Márquez [facility] Start: 07-07-2022 End: 07-07-2022 ambulatory Aydee Hearn Other [employer] Other Start: 07-07-2022 Encounter for other preprocedural examination Aydee Hearn [facility] Start: 07-07-2022 Nursing evaluation o f patient and report Aydee Hearn [facility] Start: 02-03-2022 End: 02-03-2022 ambulatory Maria Guadalupe Powers Other [employer] Other Start: 02-03-2022 Office outpatient vi sit [...] Phone: Start: 03-15-2023 Colonoscopy DO Irma Santa tervzaheer Work Phone: Start: 12-13-2022 HIV 1&2 AB/AG [...] Td Vaccines (3 - Td or Tdap) [facility] Start: 09-17-2023 End: 09-17-2023 Patient encounter procedure 09/17/2023 8:45 AM EDT Office Visit [facility] [address] [place] [id number] Kaitlyn Jasso MD [address] [facility] [address] [place] [address] [facility] Start: 09-17-2023 End: 09-17-2023 Patient encounter procedure 09/17/2023 7:30 AM EDT Appointment [facility] [address] [place] [id number] [facility] Start: 05-01-2023 [facility] Start: 03-15-2023 [facility] Start: 01-19-2023 COVID-19 Vaccine ( season) COVID-19 Vaccine ( season) [facility] Start: 01-19-2023 Influenza vaccination Influenza Vacc ine [facility] Start: 12-30-2021 Adult BMI Screening Adult BMI Screen ing [facility] Start: 2006 Screening for malign ant neoplasm of cervix Pap Smear [facility] Start: 1997 Depression Screening Depression Scre ening [facility] Start: 1997 Tobacco Screening Tobacco Screening [facility] Immunizations Immunization Date Immunization Notes Care Provider Fa cility 02-03-2020 influenza virus vaccine, unspecified formulation Kaitlyn Jasso MD Work Phone: [facility] Payers Date Payer Category Payer Private Health Insurance [id number] 2023 Self-pay [id number] 2018 Private Health Insurance [employer] POS II [id number] 2018-Present [phone] [address] [place] [address] [id number] 1985 Unknown [id number] 2.16.840.1.079825.3.579.2 .1285 1985 Unknown [id number] 2.16.840.1.657109.3.579.2 .1285 1985 Unknown [id number] 2.16.840.1.462440.3.579.2 .1285 1985 Unknown [id number] 2.16.840.1.065292.3.579.2 .1285 1985 Unknown [id number] 2.16.840.1.108075.3.579.2 .1285 1985 Unknown [id number] 2.16.840.1.780320.3.579.2 .1285 1985 Unknown [id number] 2.16.840.1.317564.3.579.2 .1285 1985 Unknown [id number] 2.16.840.1.814070.3.579.2 .1285 1985 Unknown [id number] 2.16.840.1.215583.3.579.2 .1285 1985 Unknown [id number] 2.16.840.1.130557.3.579.2 .1285 1985 Unknown [id number] 2.16.840.1.791454.3.579.2 .1285 1985 Unknown [id number] 2.16.840.1.921385.3.579.2 .1285 1985 Unknown [id number] 2.16.840.1.504829.3.579.2 .1259 1985 Unknown [id number] 2.16.840.1.511669.3.579.2 .1258 1985 Unknown [id number] 2.16.840.1.533299.3.579.2 .9 1985 Unknown [id number] 2.16.840.1.760433.3.579.2 .1258 1985 Unknown [id number] 2.16.840.1.580052.3.579.2 .1258 1985 Unknown [id number] 2.16.840.1.049852.3.579.2 .1258 1985 Unknown [id number] 2.16.840.1.075397.3.579.2 .1258 1985 Unknown [id number] 2.16.840.1.239552.3.579.2 .1258 1985 Unknown [id number] 2.16.840.1.855803.3.579.2 .1258 1985 Unknown [id number] 2.16.840.1.167839.3.579.2 .1259 Medicaid [facility] [id number] Private Health Insurance [id number] Unknown [facility] [id number] Unknown [id number] 2.16840.1.021245.3.579.2 .531 Unknown [id number] 2.16840.1.146209.3.579.2 .531 Unknown [id number] 2.16840.1.958260.3.579.2 .531 Social History Date Type Detail Facility Start: 06-30-2020 End: 07-26-2023 Sex Assigned At [facility] [employer] Other Start: 03-15-2023 End: 03-15-2023 Tobacco smoking status NHIS Ex-smoker (finding) [facility] Start: 1985 Sex Assigned At Female F [facility] Start: 11-17-2020 Tobacco smoking stat us NHIS Smokes tobacco daily [facility] History of tobacco use Tobacco U se Types Packs/Day Years Used Date Smoking Tobacco: Every Day Vaping/E-cigarettes Smokeless Tobacco: Never [facility] Start: 11-17-2020 Tobacco use and exposure Smokeless tobacco non-user [facility] Start: 07-26-2023 Alcohol intake Current drinke r of alcohol (finding) [facility] Start: 06-30-2020 End: 07-26-2023 History of Social function [facility] Childcare Unknown [facility] Start: 11-17-2020 Alcohol Comment social [facility] Start: 05-04-2023 [facility] Start: 1985 Sex Assigned At Not on file P [facility] Goals Date Patient Goal Desired [...] Mayelin Pinto DO on 08/31/2023 11:23 AM [facility] 06-12-2023 Evaluation note Encounter Date Diagnosis Assessment Notes May, Diarrhea (ICD-10 - R19.7) Patient reports that she is about 7-8 weeks gestational Patient reports improvement on Creon with occasional flare Patient reports that she is taking a fiber supplement May, Fatty liver (ICD-10 - K76.0) Patient did have a FibroScan that indicates fatty liver and minimal scaring, this will be reviewed [employer] Other 11-17-2023 Evaluation note* Encounter Date Diagnosis Assessment Notes Treatment Notes Treatment Clinical Notes Mar, Exocrine pancreatic insufficiency (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) [employer] Other 10-31-2023 Evaluation note* Encounter Date Diagnosis Assessment Notes Treatment Notes Treatment Clinical Notes Feb, Alternating constipation and diarrhea (ICD-10 - R19.8) Feb, Fecal urgency (ICD-10 - R15.2) [facility] Other 10-30-2023 Evaluation note* Encounter Date Diagnosis Assessment Notes Treatment Notes Treatment Clinical Notes Feb, Alternating constipation and diarrhea (ICD-10 - R19.8) [facility] Encounter Date Diagnosis Assessment Notes Treatment Notes Treatment Clinical Notes Feb, Alternating constipation and diarrhea (ICD-10 - R19.8) [facility] Other 09-21-2023 Evaluation note* Encounter Date Diagnosis Assessment Notes Treatment Notes Treatment Clinical Notes Jan, Alternating constipation and diarrhea (ICD-10 - R19.8) WORSENING DIARRHEA AND CONSTIPATION OVER THE PAST YEAR. DOES HAVE SOME NOCTURNAL AWAKENINGS WITH THE DIARRHEA. CAN GO 4-5 DAYS WITH OUT A BOWEL MOVEMENT WHEN SHE IS CONSTIPATED. WILL ORDER IBS WORK UP WILL PROCEED WITH COLONOSCOPY [facility] Other 08-29-2023 Evaluation note* Encounter Date Diagnosis [...] no improvement in 2 to 3 days [facility] Other 2023 Evaluation note* Encounter Date Diagnosis [...] no improvement in 2 to 3 days [facility] Other 04-17-2023 Evaluation note* Encounter Date Diagnosis Assessment Notes Treatment Notes Treatment Clinical Notes Aug, Contact with and (suspected) exposure to other viral communicable diseases (ICD-10 - Z20.828) [facility] Other 02-22-2023 Evaluation note* Encounter Date Diagnosis Assessment Notes Treatment Notes Treatment Clinical Notes Jun, Contact with and (suspected) exposure to covid-19 (ICD-10 - Z20.822) [facility] Other 02-17-2023 Evaluation note* Encounter Date Diagnosis Assessment Notes Treatment Notes Treatment Clinical Notes Jun, Preoperative clearance (ICD-10 - Z01.818) [facility] Other 09-16-2022 Evaluation note* Encounter Date Diagnosis Assessment Notes Treatment Notes Treatment Clinical Notes Jan, Contact with and (suspected) exposure to covid-19 (ICD-10 - Z20.822) [facility] Other Evaluation note* Diagnosis Onset Date Resolution Status Diarrhea acute [facility] Work Phone: Evaluation noteNo InformationNort [employer] Other History general Narrative - Reported* Type Description Date Medical History ANXIETY AND DEPRESSION [facility] Other Hospital Discharge instructions Additional Instructions DISCHARGE [...] if you have any problems. -[phone] Work Phone: InstructionsNot on filedocumented in this encounter M[employer] SystemReason for visit NarrativeRED EQUINOX, ANTIGEN PROCEDURE TESTNoThe [employer] Other Reason for visit NarrativeNEEDSNEGATIVE, RAPID COVID TEST FOR PROCEDURENoThe [employer] Other Summary Purpose Family History No Family [...] section and content) DATE CREATED AUTHOR 08/24/2021 [facility] DATE CREATED AUTHOR AUTHOR'S ORGANIZ ATION 05/09/2023 [facility] DATE CREATED AUTHOR AUTHOR'S ORGANIZ ATION 09/22/2023 [facility] DATE CREATED AUTHOR AUTHOR'S ORGANIZ ATION 12/25/2023 [facility] DATE CREATED AUTHOR AUTHOR'S ORGANIZ ATION 12/27/2023 [facility] EPIC REASON FOR VISIT [...] Active Shun Hill MD Attending Provider Active [employer] Relationship Specialty Start Date End Date No Pcp, [place] [address] PCP - General Family Medicine 11/18/20 FOR [...] BE BASED ON THE PRIMARY CLINICAL RECORDS. [facility]. provides no warranty or guarantee of the accuracy or completeness of information in this document.
== END 2024-01-02 20:24 | disposition home or self-care (01) ==
LOC: LAB 20:23
PROVIDERS: Visit Provider Obstetrics & Gynecology
DX: Z34.93 Encounter for supervision of normal pregnancy, unspecified, third trimester (principal)
CPT/HCPCS: 36415

== ENCOUNTER 2024-01-03 07:08 | Outpatient (OUT) | payer OTHER, SELFPAY ==
--- OUTSIDE RECORDS SUMMARY | 2024-01-03 07:10 | XMS_ITS | CCD ---
Author Organization [facility] Inform ion Partnership [facility] Care Team Providers Care Associate Professor Of Criminal Justice Name Role Phone Maria Guadalupe Powers Unavailable NadiyaAydee anderson Unavailable Perla Márquez Unavailable Shun Hill Unavailable MD Shun Hill Attending Provider DO Irma Burt Primary Care Provider [phone] MD Shun Hill Attending Provider [phone] DO Irma Burt Primary Care Provider Shun [...] day for 10 day(s) Jul, Active amylase 257944 unt / lipase 98651 unt / protease 419813 unt delayed release oral capsule (3 sources) Start: 04-06-2023 take 2 capsules by mouth three times daily at mealtime Creon 50018-128783 UNIT 2 capsules Orally three times a [...] 1 tablet by mouth twice daily Sutab 5517-990-377 MG 12 tablets the first dose the [...] 5 day(s) September, Not-Taking 84 hr estradiol 0.91771 mg/hr transdermal system (4 sources) Estrogen take [...] URINE PROTEIN 170 mg/L High <120 [facility] Comment on above: Performed By: #### U PCR #### [facility] ([id number]) [address] [place] [address] U/PRO/HOME LENDING OFFICER RATIO CALC 0.17 Normal <0.2 [facility] Comment on above: Result Comment: Neph rotic Syndrome is associated with ratios >3.5 Performed By: #### U PCR #### [facility] ([id number]) [address] [address] URINE CREATININE,RDM 98.06 mg/dL Normal [facility] Comment on above: Performed By: #### U PCR #### [facility] ([id number]) [address] [address] COMPLETE BLOOD COUNTon 09-16 Erythrocyte distribution width (RBC) [Ratio] 13.0 % Normal 11.5-15.[address] [facility] Comment on above: Performed By: #### C BC, CMP, FEPR, 2532-0, 3084-1, TSHR, 2276-4, 2284-8, 2132-01 #### [facility] ([id number]) [address] [address] Hematocrit (Bld) [Volume fraction] 34.6 % Low 35-[address] [facility] Comment on above: Performed By: #### C BC, CMP, FEPR, 2532-0, 3084-1, TSHR, 2276-4, 2284-8, 2132-01 #### [facility] ([id number]) [address] [address] [place] [address] Hemoglobin (Bld) [Mass/Vol] 11.9 g/dL Normal 11.7-15.[address] [facility] Comment on above: Performed By: #### C BC, CMP, FEPR, 2532-0, 3084-1, TSHR, 2276-4, 2284-8, 2132-01 #### [facility] ([id number]) [address] [facility] [address] [place] [address] MCH (RBC) [Entitic mass] 30.9 pg Normal 27-[address] [facility] Comment on above: Performed By: #### C BC, CMP, FEPR, 2532-0, 3084-1, TSHR, 2276-4, 2284-8, 2132-01 #### [facility] ([id number]) [address] [place] [address] MCHC (RBC) [Mass/Vol] 34.4 g/dL Normal 32-36 [facility] Comment on above: Performed By: #### C BC, CMP, FEPR, 2532-0, 3084-1, TSHR, 2276-4, 228-8, 2132-01 #### [facility] ([id number]) [address] [place] [address] MCV (RBC) [Entitic vol] 90 fL Normal 80-[address] [facility] Comment on above: Performed By: #### C BC, CMP, FEPR, 2532-0, 3084-1, TSHR, 2276-4, 228-8, 2132-01 #### [facility] ([id number]) [address] [place] [address] Platelet mean volume (Bld) [Entitic vol] 9.4 fL Normal 7-[address] [facility] Comment on above: Performed By: #### C BC, CMP, FEPR, 2532-0, 3084-1, TSHR, 2276-4, 2284-8, 2132-01 #### [facility] ([id number]) [address] [place] [address] Platelets (Bld) [#/Vol] 181 10*3/uL Normal 150-[address] [facility] Comment on above: Performed By: #### C BC, CMP, FEPR, 2532-0, 3084-1, TSHR, 2276-4, 2284-8, 2132-01 #### [facility] ([id number]) [address] [place] [address] RBC COUNT 3.85 X10E12/L Normal 3.80-5.[address] [facility] Comment on above: Performed By: #### C BC, CMP, FEPR, 2532-0, 3084-1, TSHR, 2276-4, 2284-8, 2132-01 #### [facility] ([id number]) [address] [place] [address] WBC (Bld) [#/Vol] 11.3 10*3/uL High 4.0-11.0 [facility] Comment on above: Performed By: #### C BC, CMP, FEPR, 2532-0, 3084-1, TSHR, 2276-4, 2284-8, 2132-01 #### [facility] ([id number]) [address] [place] [address] COMPREHENSIVE METABOLIC PANE Charles 09-17-2023 Albumin [Mass/Vol] 3.4 g/dL Normal 3.2-5.3 [facility] Comment on above: Performed By: #### C BC, CMP, FEPR, 2532-0, 3084-1, TSHR, 2276-4, 2284-8, 2132-01 #### [facility] ([id number]) [address] [place] [address] ALP [Catalytic activity/Vol] 71 U/L Normal 39-[address] [facility] Comment on above: Performed By: #### C BC, CMP, FEPR, 2532-0, 3084-1, TSHR, 2276-4, 2284-8, 2132-01 #### [facility] ([id number]) [address] [place] [address] ALT [Catalytic activity/Vol] 11 U/L Normal 0-[address] [facility] Comment on above: Performed By: #### C BC, CMP, FEPR, 2532-0, 3084-1, TSHR, 2276-4, 2284-8, 2131-9 #### [facility] ([id number]) [address] [place] [address] Anion gap [Moles/Vol] 11 mmol/L Normal 5-15 [facility] Comment on above: Performed By: #### C BC, CMP, FEPR, 2532-0, 3084-1, TSHR, 2276-4, 2284-8, 2132-01 #### [facility] ([id number]) [address] [place] [address] AST [Catalytic activity/Vol] 13 U/L Normal 0-[address] [facility] Comment on above: Performed By: #### C BC, CMP, FEPR, 2532-0, 3084-1, TSHR, 2276-4, 2284-8, 2132-01 #### [facility] ([id number]) [address] [place] [address] Bilirubin [Mass/Vol] 0.3 mg/dL Normal 0.3-1.2 [facility] Comment on above: Performed By: #### C BC, CMP, FEPR, 2532-0, 3084-1, TSHR, 2276-4, 2284-8, 2132-01 #### [facility] ([id number]) [address] [place] [address] Calcium [Mass/Vol] 9.0 mg/dL Normal 8.5-10.5 [facility] Comment on above: Performed By: #### C BC, CMP, FEPR, 2532-0, 3084-1, TSHR, 2276-4, 2284-8, 2131-9 #### [facility] ([id number]) [address] [place] [address] Chloride [Moles/Vol] 104 mmol/L Normal 98-109 [facility] Comment on above: Performed By: #### C BC, CMP, FEPR, 2532-0, 3084-1, TSHR, 2276-4, 2284-8, 2132-01 #### [facility] ([id number]) [address] [place] [address] CO2 [Moles/Vol] 24 mmol/L Normal 22-[address] [facility] Comment on above: Performed By: #### C BC, CMP, FEPR, 2532-0, 3084-1, TSHR, 2276-4, 2284-8, 2132-01 #### [facility] ([id number]) [address] [place] [address] Creatinine [Mass/Vol] 0.46 mg/dL Normal 0.40-1.00 [facility] Comment on above: Result Comment: METH OD TRACEABLE TO IDMS STANDARD Performed By: #### C BC, CMP, FEPR, 2532-0, 3084-1, TSHR, 2276-4, 2284-8, 2132-01 #### [facility] ([id number]) [address] [place] [address] eGFR (CKD-EPI) NON-RACE DEPENDENT >90 Normal >[address] [facility] Comment on above: Result Comment: Reported eGFR is based on the CKD-EPI 2020 equation that does not use a race coefficient. Performed By: #### C BC, CMP, FEPR, 2532-0, 3084-1, TSHR, 2276-4, 2284-8, 2132-01 #### [facility] ([id number]) [address] [place] [address] Glucose [Mass/Vol] 78 mg/dL Normal 65-99 [facility] Comment on above: Performed By: #### C BC, CMP, FEPR, 2532-0, 3084-1, TSHR, 2276-4, 2284-8, 2132-01 #### [facility] ([id number]) [address] [place] [address] Potassium [Moles/Vol] 4.0 mmol/L Normal 3.5-5.0 [facility] Comment on above: Performed By: #### C BC, CMP, FEPR, 2532-0, 3084-1, TSHR, 2276-4, 2284-8, 2132-01 #### [facility] ([id number]) [address] [place] [address] Protein [Mass/Vol] 6.5 g/dL Normal 6.0-8.0 [facility] Comment on above: Performed By: #### C BC, CMP, FEPR, 2532-0, 3084-1, TSHR, 2276-4, 2284-8, 2132-01 #### [facility] ([id number]) [address] [address] [place] [address] Sodium [Moles/Vol] 139 mmol/L Normal 134-146 [facility] Comment on above: Performed By: #### C BC, CMP, FEPR, 2532-0, 3084-1, TSHR, 2276-4, 2284-8, 2132-01 #### [facility] ([id number]) [address] [place] [address] Urea nitrogen [Mass/Vol] 8 mg/dL Normal 5-[address] [facility] Comment on above: Performed By: #### C BC, CMP, FEPR, 2532-0, 3084-1, TSHR, 2276-4, 2284-8, 2132-01 #### [facility] ([id number]) [address] [place] [address] FERRITINon 09-17-2023 Ferritin [Mass/Vol] 11 ng/mL Normal 11-307 [facility] Comment on above: Performed By: #### C BC, CMP, FEPR, 2532-0, 3084-1, TSHR, 2276-4, 2284-8, 2132-01 #### [facility] ([id number]) [address] [place] [address] Folate [Mass/Vol]on 09-17-19 24 FOLIC ACID 18.1 ng/mL Normal >5.[address] [facility] Comment on above: Result Comment: NEW REFERENCE RANGE Performed By: #### C BC, CMP, FEPR, 2532-0, 3084-1, TSHR, 2276-4, 2284-8, 2132-01 #### [facility] ([id number]) [address] [place] [address] IRON PROFILEon 09-17-2023 Iron [Mass/Vol] 52 ug/dL Normal 50-[address] [facility] Comment on above: Performed By: #### C BC, CMP, FEPR, 2532-0, 3084-1, TSHR, 2276-4, 2284-8, 2132-01 #### [facility] ([id number]) [address] [place] [address] IRON BINDING 580 ug/dL High 250-[address] [facility] Comment on above: Performed By: #### C BC, CMP, FEPR, 2532-0, 3084-1, TSHR, 2276-4, 2284-8, 2132-01 #### [facility] ([id number]) [address] [place] [address] IRON SATURATION 9 % SATURATION Low 15-50 [facility] Comment on above: Performed By: #### C BC, CMP, FEPR, 2532-0, 3084-1, TSHR, 2276-4, 2284-8, 2132-01 #### [facility] ([id number]) [address] [place] [address] LDH [Catalytic activity/Vol] on 09-17-2023 LDH 124 U/L Normal 100-[address] [facility] Comment on above: Performed By: #### C BC, CMP, FEPR, 2532-0, 3084-1, TSHR, 2276-4, 2284-8, 9 #### [facility] ([id number]) [address] [facility] [place] [address] Natriuretic peptide B [Mass/ Vol]on 09-17-2023 Natriuretic peptide B (Bld) [Mass/Vol] 66 pg/mL Normal <100.[address] [facility] Comment on above: Performed By: #### C BC, CMP, FEPR, 2532-0, 3084-1, TSHR, 2276-4, 2284-8, 2132-01 #### [facility] ([id number]) [address] [facility], [address] [place] [address] TSH WITH REFLEXon 09-17-2023 TSH 0.78 uIU/mL Normal 0.49-4.[address] [facility] Comment on above: Performed By: #### C BC, CMP, FEPR, 2532-0, 3084-1, TSHR, 2276-4, 2284-8, 2132-01 #### [facility] ([id number]) [address] [facility], [address] [place] [address] Thiamine (Bld) [Mass/Vol]on 09-17-2023 THIAMIN VITAMIN B1 See Below Normal [facility] Comment on above: Result Comment: NOTE [...] developed and its performance characteristics determined by [facility]'s Jordan Norbert [facility] [place] ([facility]). It has not been cleared or approved by the FDA. [facility] is regulated under CLIA as qualified to perform high-complexity testing. This test is used for clinical purposes. It should not be regarded as investigational or for research. Test Performed By: [place] [address] Beverage Specialist: Colin Cisneros III, M.D. CLIA #[id number] Performed By: #### C BC, CMP, FEPR, 2532-0, 3084-1, TSHR, 2276-4, 2284-8, 2132-01 #### [facility] ([id number]) [address] [place] [address] URIC ACIDon 09-17-2023 Urate [Mass/Vol] 5.1 mg/dL Normal 2.6-7.2 [facility] Comment on above: Performed By: #### C BC, CMP, FEPR, 2532-0, 3084-1, TSHR, 2276-4, 2284-8, 2132-01 #### [facility] ([id number]) [address] [place] [address] VITAMIN B12on 09-17-2023 Cobalamin (Vitamin B12) [Mass/Vol] 185 pg/mL Normal 180-[address] [facility] Comment on above: Performed By: #### C BC, CMP, FEPR, 2532-0, 3084-1, TSHR, 2276-4, 2284-8, 2132-01 #### [facility] ([id number]) [address] [facility] [place] [address] TSHon 05-25-2023 Thyroid Stimulating (3Rd Generation) Hormone/ Tsh 2.200 [facility] CT abdomen w conon 3 CT abdomen w con [facility] [place] [address] [place] [address] CT Scan Report Signed Patient: Laura Alves MR#: [id number] 3 : 1985 Acct:[id number] Age/Sex: 37 / F ADM Date: 04/10/23 Loc: CT Room: Type: [facility] Attending Dr: Shun Hill MD Copies [...] Stan Owens M.D.04/10/2023 4:03 PM Dictation Location: [place] [address] Transcribed By: [facility] 04/10/23 1822 Dictated By: Stan Owens DO 04/10/23 3530 Signed By: 04/10/23 1609 Normal [facility] HCG ( test) IA.rapi d Ql (U)Ordered By: Shun Hill on 03-15-2023 HCG ( test) Ql (U) Negative [facility] HCG,Urineon 03-15-2023 Beta HCG ( test) Ql (U) Negative Normal [facility] Comment on above: Result Comment: PERF ORMED BY: [address] [place] [id number] PATHOLOGIST [employer] [facility] MARINA AYALA M.D. Performed By: #### U HCG #### [place] [id number] [facility] 03-15-2023 L Specimen: [id number] Received: 03/15/23 Status: BUSTER Alfredo Num: [id number] Spec Type: Surgical Subm Dr: Shun Hill MD Tissues: A Colon Biopsy (SURVEILLANCE BX) Procedures: Deepti CHILEL/Pierce L4 Age/ Patient Sex Location Account Attending Physician Laura Alves 37/F [id number] Shun Hill MD SPEC NUM: [id number] RECD: 03/15/23 STATUS: BUSTER RAMOS NUM: [id number] SUMIT: 03/15/23- DR: Shun Hill MD ENTERED: 03/15/[address] [facility] [address]: SPEC TYPE: Surgical DEPT: S [...] The microscopic examination confirms the diagnosis. Specimen: [id number] Received: 03/15/23 Status: BUSTER Gonsalez Num: [id number] Spec Type: Surgical Subm Dr: Shun Hill MD Tissues: A Colon Biopsy (SURVEILLANCE BX) Procedures: HE/2, Gross/Micro L4 Patient: Rick Alvesy [id number] (Continued) Specimen: [id number] Received: 03/15/23 (Continued) Signed (signatur e on file) Winston Donis MD 03/16/23 1737 Specimen: [id number] Received: 03/15/23 Status: BUSTER Alfredo Num: [id number] Spec Type: Surgical Subm Dr: Shun Hill MD Tissues: A Colon Biopsy (SURVEILLANCE BX) Procedures: DUY/Yaz, Deepti/Pierce L4 Patient: Parminder Alvessay [id number] (Continued) Specimen: Received: 03/15/23 (Continued) CPT Codes 86536 Specimen: Received: 03/15/23 Status: BUSTER Gonsalezvanessa Num: [id number] Spec Type: Surgical Subm Dr: Shun Hill MD Tissues: A Colon Biopsy (SURVEILLANCE BX) Procedures: HE/Yaz, Gross/Micro L4 Patient: Laura Alves [id number] (Continued) Signed (signatur e on file) Robbi-Tyrel Donis MD 03/16/[address] [facility] SARS-CoV-2 (COVID-19) RNA NA A+probe Ql (Resp)on 01-16-2023 SARS-CoV-2 (COVID-19) RNA GEORGE+probe Ql (Unsp spec) Positive [employer] Other HIV 1&2 AB/AG Screen (P24 AG )on 12-13-2022 HIV 1&2 AB/AG Non-Reactive [facility] Hepatitis B surface antigeno n 12-13-2022 Hepatitis B Surface Antigen Negative [facility] No Panel InformationOrdered By: Rae Agudelo on 12-13-2022 [facility] Rubella IGG immune statuson 12-13-2022 Rubella immune IgG <0.90 NON IMMUNE [facility] Syphilis Total(Unknown Syphi lis Status)Ordered By: Rae Agudelo on 12-13-2022 Syphilis Non-Reactive [facility] COVID Quick Testingon 2022 Result Negative [employer] Other COVID Quick Testingon 2022 Result Negative [employer] Other COVID Quick Testingon 2022 Result Negative [employer] Other COVID Quick Testingon 2021 Result Negative [employer] Other Consent for Treatmenton 05-21 Consent for Treatment [id number] 0 [id number]#1.00CD:127 [facility] Coding Summary.on 05-28-2021 Coding Summary. CD:[id number] XWx0zFk+PGhlYWQ+PE1 CJGCcH94cmYNsbD1NH0 vTCO3MGDDIXDYOHB2OX H6omNX8SFyvN4YqzwHx UbccoACzLP59XDc3SQQ 5kBxoYJuchS0ghUPlE2 h3OdSlDB33bM13ZEkoV XLhLdC2BhWskbsjtFMr M8gvLcOurQReMjx+PHR hYmxlIHdpZHRoPScxMD ZqLqJxrTxiDP4sPc0aJ GVyLWNvbGxhcHNlOiBj f8juKXQmMSwoSD3elTe sJ5LaaRX9JNAoh3b6Iv 48dHI+CZSvWZC6iAdyY Kowv448EyTfi3zcUUM0 jLRhHKgaDDF6P10ws8L 2LRZuZRJeLMV5pSP1fZ 5tlHxgxpibH5RiyEUfR qK0DFW2oYYsmP1auXgz dkdrhS1aPwa+Z71XTW6 ITXXZEA8PMmc7S8JnIv wvdHI+CS12LNCkYP04e XKgvFPeb3ywzEe0JvHq WBKfVBH5sTrdFIhdc8H jLKXtQ15tiALcm1N1HT XvrCilaZYqKoIdxRN5z S5zLOjcjkyel0ceuuop Flxpz0zecf35dN02F44 dVMndFKWfYIU9NYInMW XhpHgupo8cwC8qEe9+I Obxm8uii4snlIh6PmAk OEAsgkUaqNzlUNN6c0T zCu69T9UxaAthz6NwZv m1cx34xXQaj1B9eLE2Q KjzRMUxbY7wSHxwXgX3 FTGzMlGpnY98aXXeSDy cRv8sqDofhSujQW2pLQ UtijllRKFrlC0bQDGux ETunDqvXU8zEPSfyuxs v811NeVlUOH1XTDcxCQ nC1GclE5nOdLvQFVqRD SxZ2LewWQyRUajQ367B BbgHrG5JMRwuyVrF6Wk FFOsaMxjOoB9x4O5Cx6 Gq8DfqtovTWA5RImzIS NoLiI9UqTfJvS6J7YuE oq7FHJjqEsrJY3cR8Qo SLTclxauwnryuQQ6BRV aFLXpxC99yDIjEEntQg 8zo1N7b808AEMmQGQpz X73Ud0oyRnqZMKfoMYV gL3bxjeoa9bswyvkZmZ mXYGoVLq5SOe0XDAbbB hvQsTzPEB8NjG2JMJ3u FDeiJ0zkUebxfkdoM0t Oyc+V65gbG9yMDZ2NPI 0dltaHMOhqyCmQK32TE 53L0MfHdkvhBRofBD+P DSwttFobPxbAC4yXeRv f3byk8PvQGveS6EbWXV zZMvkXar1LIJnTFL0uO W3kJ7pJQFoRUfkx3R6u BB5O3HgypEvho0rx1qz WMPgDLfxU48feEHii3B 2QRHzsNY0SKPwfDidXv NrvE17Cfv+PGNvbGdyb 6NtCkwoq4rai3wlgVv6 IjMwJSIgdmFsaWduPSJ 7b9ZcSb65R15fPMoxKO RoPSIxNSUiIHZhbGlnb j9saQ3wHx3+PGNvbCB3 mWK7wS5oSTDnKpB0DUs rQ366HdJmnSQsCuzfx2 iee7qazVx6RgOqHCLpy eZobXbzCSN0a4XbUv17 E42xMXytNBGrSIPxALQ mRPRryVoceg7alN2eNz 8+SC4ln7uben60gX69s HI+BDTjHPE0mQbhEKtm RBVzgO1pATinJdZ1GUZ uGoKeiY82fMAmLEhdBa 4tpOaxwCkrFX6hEZOql qqvg864UmUbj8wyFMKk lJLqQQfbVEH1C92wu6S 1EEFkDVCpMNE3fTS3qP 1hbGlnbjogbGVmdDsgd rUkaHozWJgiBGyuA406 IHRvcDsnPlBhdGllbnQ tNmYaOIs4J0OiVwy6BX VikOxqAK3teSThWFtzV o2ceMuoxPgfYP5pEPPz cuchb335GfVli7shFGA nwOSkBZjtSDW5D24fg3 V6QVPvIJJxRRT4bOY7g K5blUmqqcjmaCLryHed coHyoCjgBSngQLegN13 6IHRvcDsnPkJpcnRoIE RkkTZ2RS78JW44hAGyj 8I6iNG0X3OhNPLdgrrs kaovyZU4VYUbQNFnyM6 7Oc1goCfwHq0hVMYnAP N0CEAoaIMmP7YfyS5nJ sCqWDKhAQEqI8UgxIVm VFadV420TMbiEqE3TCT zqkNkC2EmEBCpqCmcTk K2h7Z8Qx0MP4R6FM93Z F21kINiu9G6aEO8U7Dc EHTeapwnxalxeBH3RXY xSGFmqE35Ym3szNyrJu 7jANOaCZA2SEIgyDAiS 5CvcL1pIvJhTOQnWXQz D0FobRJrSKohC637JVr jZaS7OKLzudZrR6NuBU KipOgdFsL3g5M8Kh0GS Wz7CT29VM58eYMkg4G1 jWC7B9ErBVOsmsxseat dpTI8XPJiDKVstD96Gy 4gdVspTq2aVOByZQR1E CCnsWCsO2NfyK0uZsNy FATiEYXhW2PazYQkGPq yQ939AUtqQhT6EVAush YgE5XwHRLueSpvGfH6r 1Q0Tm9FDKWhXU76XDL8 uAP3HG02DM37H4LxKem vdGFibGU+PHRhYmxlIH dpZHRoPScxMDAlJyBzd JwlKN8gBw4zKZHvYBWk bXjcqOOuOhUqh4udZIG uXNlaMW3seCnkZ0DltU H0PPIli2z0Bv53F58hT 3JvdXA+GEOggCF9zGI0 sA0tSzPjTiS3AGqaE15 1ApJacTAiWtyas5uhw2 sgkMj1XbN0AMPbcqRzw ImlTAG2f2GxBb19S85z IHdpZHRoPSIxNSUiIHZ ptGmmln5tuI3fRt5+PG VsxNC5oIP8pH5aYvSzJ oK4TQicG047CzKxmBQj Slamx9klr3vprMg6HaW cOCHxhaXjyVstHWX0c4 KpXt55H9QagLzoj2FyA dw8eb23iARyf6T7hBP4 T9XgFYYlqwpmrBTtqFc hPU3vAGUyopifJMLkcI 0pHTMrE9k3VuYmDvH0T YvjT9ExjbM4BOGwpMLm IXisLGS8B15rb6I8ICL xULTtFSY8bFY1eE4qwS lnbjogbGVmdDsgdmVyd XgzPDneYKhuU167LUJy lKlxPKKtxK5uAAMusPA weTfuXI4wWQTjpkrdYf jGGP2SQBSEJzalMMeZH YPJFFKMRA99TU92iKNh s3F4qVW8M6TtQYMcclh mhxipuGM0HIVcMKFbpW 91bFFuFKmmQy0lb4E0x 036EQSkDDHsaU69Bw4s hRwbBOUhfYCLxP4fgvw dr4hjcygeKrCnAQXvJX y2IHa5YIZezJgsFyWiY QE8TgA7CAG0mZAsbA9z zKzcknetvT7cKxl+MTI hBTulMKj4QEzdyGE+PH DtXSM5cQlgAPlaDUQfr C9oPMBnE7l2QfFpDqR6 BPaxM5ThQGYrabppDv5 8rR1aBrMlWdI0BTciT0 FiwpX9GPJeqOLuPFfhQ VA9F18hb8G7MMCpUSGb PVD4iSF5vM6maEchpyg gbGVmdDsgdmVydGljYW auCPvuP437ZKJsyTxzM iU2AYttLQIxPK30US57 sPEsa7A5uOX1Y6EhDIT yquzpgeoqfZL0RHLjRN DghY38mHScQQkbFp3tt 9A2n855OUTuUYAcsD90 Sf1vbRbpLEEamLWJwD4 yxxiqf6glwjabTeXoNK LnATp1AWm8YMZtwUyeR oDzRYC0TlW6MXU6oFVs bM0bkDvpmbshwM5oRkv +WnQyASfxEE77JZ69sM Hnw3E2cCI8C0GzAJVqt snyiwdbbJM3VARnLRTj oM79xXQyDAraMc6mc7B 6w035STDjCUUhoF11Sv 0jhLslRCGsrSGSdE8ep kfcr9svztxdRqBaFDPt RIs1ZIo2OGKoyVjpJxT sAOC5DxU2IWU2uIOyaT 2ovJirmwsdpR3dBgn+U aVdjKWwoX8gYX41EN80 M3CyFjalvBSprNI+PHR hYmxlIHdpZHRoPScxMD GnPzZpyNvjXI4lUp8yX GVyLWNvbGxhcHNlOiBj h6tkLVMbHZhhGN2dpWf nX6QzfZK1TOIyo7r5Wd 17L66nC2HwlVX+PGNvb HT0nQA0jE8qAaAwGcM3 UPnvH846ZpHgxSOsQyj uv4rjn2qsiOs9LiXvIK DnylQbyFabUYO2c7UkP c98Q86lWJfuVQOhYLHz WWNvZWCwbKhzkz9vfO3 wIi8+FGHojQW3hWQ0jR 8uXxDqOzN6UMsqZ866Q vIkiXAcPzdsB46qX4Al dXA+ITAcKbr5LIHrwCs cIP7lkIRkNKsvKa0zZJ Q0OgFtYjNlBNtdM2SuA OBpsajxibrrxPX1ZTOv NLDlnT79Hg7nqBkpVh5 vNWMvPCO9IFAheCAzN1 OuiA4mQoTrXPZyRJPmZ 0XkfDBuMOehS948ACgy YkA5GRCxbvAaQ5BzKDQ zjGhqHvF4i1S5Xf4VpO isoHFgSP1yPiLiHVp2S 7OqMwi0JSSmsPkfRB4w jXQuUFmcPf7ifEflzHz zDL8gSBEyjoffh101Bt Njt7zfYDJqxJIpUXvrD WS3T74ma5Y7GEUuGJZn KDF8uUN1hN2zpUqmzdx gbGVmdDsgdmVydGljYW ntFJpwD469LKSpnYegS yILTub9H8YbRgr4YWXn pRjjEZ9yyYHaRWvfAs4 owKanpFtvTH6fGHHchu zef728EgPfu6zuDPIvn NYdGSvhLPU4B16gv1G4 OBXlOHXcVDX5zGJ6wQ6 hbGlnbjogbGVmdDsgdm LewIteMNjvOBkaX041X QFccXeaZk8NCch1T4Dr Bzb0DCCqgXvlLX3dvDV oXGclZo9zzMdxpYwxBP 4xVWZawtgfk347NlRvh 2diBDRyeIAaLVhbTVD5 I32kq1Z6FOZhVPHsUSO 2vHL7oC6ctJobowghrJ VmdDsgdmVydGljYWwtY BjkJ616BJMneQlyXnRv eWVyOjwvdGQ+MZ71ky6 7Q8EjSwlbDen8ZYAgAS D6mXD2zE6jXNVhWJgmn 5I5oRP0R8TercQxjm3f b2xs (more content not included)... Normal [facility] Priority Order-Juan 2021 Priority Order-STAT Comment Invalid Interpretation Code [facility] Comment on above: Result Comment: Rece ived Performed at: [facility] [address] [facility], [place] [id number] [facility] Mina Jones Performed By: #### S ARS-CoV-2, GEORGE, [id number] #### [facility] [address] [place] [address] SARS-CoV-2, NAAon 05-25-2021 SARS-CoV-2 (COVID-19) RNA GEORGE+probe Ql (Resp) Not detected Invalid Interpretation Code Not Detected [facility] Comment on above: Result Comment: This nucleic acid amplification test was developed and its performance characteristics determined by [employer]. Nucleic acid amplification tests include RT-PCR and [...] detected) result in this assay. Performed at: [facility] [address], [place] [id number] PhD Shalom Gonzalez Performed By: #### S ARS-CoV-2, GEORGE, [id number] #### [facility] [address] [place] [address] Family Medicine Phone Visit - Telehealthon 05-22-2021 [...] 6 months ago. Has been using DayQuil [id number] with moderate improvement. Review of Systems Fatigue: [...] only communication with the patient located at [address] [place] [phone], with no one else. If it is [...] Patient verbalized understanding Ordered: Rapid COVID Antigen ([facility]) Telephone Est 5 to 10 minutes [id number] 2. Fatigue (R53.83: Other fatigue) see above plan, rule out covid. Ordered: Rapid COVID Antigen ([facility]) Telephone Est 5 to 10 minutes [id number] 3. BMI 27.0-27.9,adult (Z68.27: Body mass index [...] 1035F Telephone Est 5 to 10 minutes [id number] Follow-up With When Contact Information Irma Burt [...] Methamphetamines, Pre (more content not included)... Normal [facility] Comment on above: Result Comment: Elec [...] height. This can be done either in [place] or metric measurements. Note that charts are available to help you find your BMI quickly and easily without having to do these calculations yourself. To calculate your BMI in [place] measurements, your health care provider will: [...] problems. ? BMI can be measured using [place] measurements or metric measurements. ? To interpret [...] Reviewed: 03/20/2018 Elsevier Patient Education ? 2019 [employer] [facility] Physician Orderon 04-27-2021 Physician Order [id number] 8#1.00CD:127 [facility] Coding Summary.on 11-04-2020 Coding Summary. CD:[id number] MHa9zAs+PGhlYWQ+PE1 FYIMvG56lrQRzyH5OW0 pVRD2JEETSIMFIBK1VF T9lpFZ8EHdkM1HcrzOe WxgdtWCbUD47REu6ABU 8kAtyNIzbuY2geFIhD9 u3OgQzYI95wQ51URajY QOwHaN9LlNhbdnjrXAl C9ucEfXhmWZtBfx+PHR hYmxlIHdpZHRoPScxMD JtUjCvuPzaCT0fVb9dH GVyLWNvbGxhcHNlOiBj x9iqQFGqSRioIF6jkEq hB3IgbYS5RHApe5x1Fu 48dHI+CWQwBKY9aOtzO Eyzb092WwOdi7vuYIN0 aJHlOEioMEW4M89tg8N 0JNTxJSSiOWM2rSO8hM 4tmWopysrgM6NpaSGfO pX9UOB3cEYjiA8roPil dkgaoX3mGvg+Y96PEV4 FKXZTCC4LGqk5L7YiWh wvdHI+YK78VVJlKZ14y XYaoQQkk5nkhNi7EyZo MGUmOVV4yHawWQaol7D lNBYnU35qqMCvm6D5XF MfgVzhyQRhIdTekTD0z U0uVQtizuedv3thzrcg Ysisc2rbvi28mL84N00 jYBhyDTLpSAP1OJDwWI EkqRyhsi9hoB3cBn1+I Rjor8ihb8nsjWl4GtDa OAPecrLwoRqxVUZ4o2Q nIo43C8BepKuyv9CcRe e1cs54wUDke9R5gWG2Q HdpCZOqyK6uFFavWzO5 VRPlEnBmlK26aYYhRDy gEi3jbDmpxZcpMM9jKM PyspjtTNHqlL5nTHOrd NOroCgrHZ3jIIHbikwi d994IpOgUCT5FBAibLI pA8OfyW6ePsToBLGgKW PmB5HxmYRjYHjbB613B TiyPnL6NOMbacYaE0Js HRDefCmaQkB3b7F4Xb7 Vg7FyvqlrRYM8GPkhLX B3HkT5JuDsAfW2T8MhT kz9RSVktPesPX0rS1Ty EIAvoihyxltbbHS6QPC yRYTufS13bFXhRSxgQc 5bd7V9e292QIVkDTDfm A16Rp2tjVnfINQquPKZ tH3yzofnk4yzebxyDrQ gNUXpFEq4UJv9LLHgtP ugLmLqBWS5BzO5RSM6f HFxpJ1tbFjwgkcrqV8h Oyc+N56syT6jVBH6HRF 2wzklDZLtmjJhDW79DH 15C0ZnWwfizQHutFY+P TDopkNihSyrSN3dZvAg r9blr0EuWKerB6SgWRK dWGhbQaz2GLNnLBJ5aT S4xI9hYKAmQUmuv5J4k HM5K7SrbaNhwy1pt7vf XBIjGJnjY82tzJNoo9R 3OEZuwNB3EBQkxDlnKs ZzzK88Zzy+PGNvbGdyb 3GjNxkqr4ujh8rbsIz2 IjMwJSIgdmFsaWduPSJ 1d3LwEi55V48kKDhqPX RoPSIxNSUiIHZhbGlnb s1clF6mCy5+PGNvbCB3 mAS4qP3iKGUtLqY5PVv pR982LcCurVKpTnzcc4 fuw3kwmIr4XiIaLXEvr tCvtOqbAMA2c2QvIi31 U37kAZsbUUZlJHFtBZX sZWZnlWaovb7byQ3uOu 8+IH7um3quyd61uL82h HI+DNRwVZL2hWsuDYpz VPFfxV3xPRnjRjL0KTJ kDyDodY81iDEkVOosWf 1ejTzvdCdyRT6pANNks rjus055QqOed6riBZYd bKFcLQalVQO8J97lg1A 4QWOvNIEgTQM1iUG4eD 1hbGlnbjogbGVmdDsgd vCcnBlpFCdwEZynK726 IHRvcDsnPlBhdGllbnQ xLoNrZMl1J8NsJmo9FX JvoSgrZW0axSXhIAphT i8ltNzovJggOH8pPRMl kdprn963HuNat6esZKV wnTFdAZzoAWJ9P06em1 N1NWGhWOBhFXU8mLD1j K8qxTdepkkfkYDnlEls ekQhoZgzHCawWTqfM72 6IHRvcDsnPkJpcnRoIE XueKQ2ZT01KV52hUUxe 3L5cAV2A7AbURNdgtyf yvlxnDK8RWIpMYWuyO4 7Zy2ajYkrXu1yCTOcXL Y4HMHlfATsQ1DsxC9dP oQdPLEuRKPvP3YbfYOf HBonF388NEdxBgE6YCA mzwPzE9NaDXMlmSthVt D6k0E5Hk3SF3T3XP68K E93fTVwx4C3hRK0K8Ot KRFmynidbfslxAN3MWB vTTTarQ97Bj0dnWrpRz 7rJOJgDJI9MKCbdJEdL 2RfeD7wQoThLSEsOGNi W7CfmAZbODsuK855TDv cSmN0WNOempHxB9BtDE QwlMxsUnW2m7J9Fr2BF Wt9QM82YG47oWHcy7N9 qQO3T4RqAEGetesdnvm voHY6JSSgGSKdqR16Hp 0qoUbtZl2xQPIjVBR6V GIbsXTdH6YzrR2zJlWy KETjQGOpZ6MijKHxBVq gM251FOipHpN6CPHvki JtR1QgWQMqxIrpDaY1c 8L8Zl6YSFHsOG61SMJ7 wCG6VS58CY02J0BrRsw vdGFibGU+PHRhYmxlIH dpZHRoPScxMDAlJyBzd TclTE5mIu9tZEIqCWVf zXtqrSGwNnLxj7ffMEM dCXszGW1vqOenH1GpmM J6RVJvw5m7Ug24G02iV 3JvdXA+WRIuaBG8bXZ4 rO7wNcYkMiC8IYucO95 8EiEngAAmZrrrl7zdn8 ydoYk5LyK0LTQomuUeo IvkUZW7n4KrPv71W80z IHdpZHRoPSIxNSUiIHZ ifHjfep0iiI8gKy1+PG SpeRT1nJD7xC8iShFxX qW7BSgtK208UyIlcJGl Jftwx8zad1zqlAw6EdE tPAIagtKirIxtSNT4x6 JzCg30V1BbsSjma4PvU ul2fm32dGRpe7N4oPN9 V2XhRURaoqvffPJmtRq fPE0eATFuhjewSWSspH 9sOPWfN5c9VkJzHkZ0T BrbM8IuslQ4GXLyrAXw OEwcHSS9P72uo6I6XTF oOVOwOJA6rFM0pL8yaQ lnbjogbGVmdDsgdmVyd YsmPVkpWVjmV930JZFr lXwdWBYmuA1rBDGmcAL kzIhqZJ0fCWVfukdgDc aJOL2EJYBQSxoxEMaML CWXNKAUKM34PC15qZZh r7I2zLA0J4LlENKfyoz gttnqeNO5WLTlHUEegU 12cVTgKOlkSo5hb3G3z 777SXHpVWTsnR96Jh0p kQbhHXNivIFAkU5mrwg ef6wziifyXdWbPZPzME v0KYt5HDWyxIbfFyUiG YX0JwB2UYO8qQEvvN3t yFrbwxslmX8cOra+MTI nIEwqROy7VSncjSM+PH ZuAAU8eTwbPRlaVPOcr T8iVVGtZ6e4XxBsIhB9 OJtbL2OgCKHeriujZr8 7eE9tSaSeLrU3QXefD6 BlsqM0NKMzwZEiNFaqY QH5S59di8E7TVPrHFLi CNE3eMV0nF2ffPzwmbm gbGVmdDsgdmVydGljYW msQLzoW801BZAcoWqqB tK5NSweEYCqSH72HS93 tZIek1U0vEL9E3NzUAF wtdahvjideYI6LZOjKE LhkY77nJJfOUldIf3ul 7T3p946PDKtOBAmhG10 Bh1hdRyhIBOjdISIfI8 wvnbmw9kszpgxRjYiQF KsIEr2WEz5PJNhxWpmD rNvQKE9XkE6KER5yTCf dA4maStlcprzxS8iHso +HmJoHWkzRH42BH75kH Afz9M1kMY8Z6OmTNWvw kinhkurlWG3VWFzHURs rO62tPYhEIjcLp9zi8J 1x411IXWzWFZudD73Wu 7upEsxEREqwFUSxS7go sqix0etdrllVuVeTQQn LBf4NXy0LLWzmYtjAmN uJZF1AcV4PYH5iBPwmQ 9aeCqmbgzppT9bHrk+T 9H6xDC7vNOneCzmkTG+ YN02cb69U9ThEvreCgr 3NCMnYBX9bYX3wO6nZV BwPBlma4N1gAF8S5Vdo gEehi6yo2vrZVFwMWvb O17hjFVtx8Y3MZQtlKF 9VODphZwtWjKzpZ73Vq c+EZMfaYauq3CxXzkvi 9xpu7licPd7FbVuIIMs ezEojCdxEIE1y2LkUm3 5J83mVDqeSKRfJDHyUA MsSTNjwTpzdk4qkF8rB i8+BEVnbTB9zKG4sT1p GjIcCaE7TKxwQ982SmS hxMKoMjgjd2xmv4dcvS k4JdNrLYGrqvAjbWtrN OK0u7KaJu55B6ZllGdd s0HhEpc2ac50zTBtr6P 7iYT8D6RtRLFsrzaryS VahRlmBW3qGVHnnbtpZ IWtfE6iIZGuX9q4HsAw LlM6GKmjU4WbnuU6JGT maWHhRMTlsONKjA0cwu zqb5ltxpctAcHcMBDcN Jg0URk5DEVbrVjvOdWw QXJ9ZiZ8DLS5hTUayH9 urProilazdI8rNbc+UG j8w6ogaLWkGT7dlHH3R R86QE86vARhw7F7sYM9 Y2AlYPTylxxpplpuuBO 4RFXyPNBnjI82Iw5tdO xdRd4wGSRqFRQ0LHDbs UOqG2BzjJ8mJrQaSZWu IHYpN8CvmCYjNZdiG28 2DJavKhE8SYOfraYhG3 RrJNZkzRiaEdL0x5W0C w7NQN30ZM37GN25fYMh o8L6xON2B9KqSAVavcm prwsgwMU4MHAmEUAxfV 12Lh0ipHzoJm6qTHPyD PX6QLJmbKWpS7JnkI2h JaYyNYCtPSYsB6GwpHI yPFxaM903SPsmAyW6AW VxyxHbP9CuJTZzwRxiU zS3o6X6Qi8BDx86MP20 CO45kNSwg9W6xAY1L7P fFENcvsljygtjhJW1IB JpQLGqsA97Qy2xbNsqV r0dUDEpKMP5QUDzqDRy L9XryD7mSkChRTMqYHQ xU2ZubTIfXJpeE435AH ilFnE4BJFbffPbA6AfS DBstEuqAsF8a3S5Zj3H IMiebpw0R0HgYhtijGW +IA71JIOfFR78aKXziB Ola2dndPe3KpMkYZPcS TO6wOyqXGwqw9JoLMFy Y29s (more content not included)... Normal [facility] CT Chest w/ Contraston 10-29 [...] Contrast amount in ml's: 100 Normal [facility] Coding Summary.on 10-28-2020 Coding Summary. CD:[id number] WGq3lVx+PGhlYWQ+PE1 JKMIaW55hxDJtkI1WC6 fJME9IIEJIMDLVTC8CL J2icCR2KIvuB6DfuuAd BuqtzBPmBR51JYc7BAJ 3mHypVMoiiD7ulJGbA2 f6AnPoFE22vR53YBesM UIlMeS3PrMnqyhtvWKr G6gkGdEdoUFkAbk+PHR hYmxlIHdpZHRoPScxMD WpFlAumIlnUR0jOn6iL GVyLWNvbGxhcHNlOiBj i1ddHLKhBHfmGC2xtAp fB3OfcYY9OXGmc8z2Hm 48dHI+VJFhMBW2bXhdW Izcc071PtGcr6vkZIB9 hMTdNGjgHTM6R63as3J 1BTRqMXVoSOG3eMH4vS 0ceQkaqnleW7OfgXQxT sI8XQN4tBMqaS1ovXen verpxT5rZzf+S46QVV4 WWVIGXJ9UKdp8L4AwFp wvdHI+WA96MGHyST38f JCanNLkq7wnuYs1YmCf LIQsDCF8yAvdLRsyv7I cTGOmZ57jxBZyx8P4TH XuwRvitTOePwCmvPG9r V5kVQwegriqm0qqizmr Fyqkp9wvip21pP57C72 gEOydUFBaWHX1JLOxEE RtlVadju7urX6oQz2+I Vtub9kjr1zfvDh8RaLr ZBSlfmEcqQntXJB1a5J xTz70S4ZqbHifw7UuHt h6qu31yKXzg5D3rTF4O MejQCPlgH1vFCrlJoR2 DAElGwHwbC36fWLvZZs qOg8doAgztBjsIO3qYL LohqinZPHriV1iSBBkm OSsqXhxRR0hFAEpzamu v807GjKvGIT4ZOXpdQZ pG2XpwY8cLaRtSJIbCB UhE2FfdWQoGOtiE694L JaxVwS1KMMmufPfQ7Mn RLOjuVpiTtV9e0W7Yf4 Lp3AuhnqiCAL2HCglQW V6XxHuUgNrPpF8O2DfU ha8KFGwqUefPS7fD5Gv CZDpdfsilhuejDA4AXL pUGPmvG40gREcSUpfYp 8ph6B1s544NPMnHPLms W97Pi7rxSiwSMFwsSOT vO1cpjxiy3lauwamOmO rSCTeYLk2ZDt7HCJhcF frHtAmSLY0QiD4TZE0o LBvgF7njHafhvhpoH1y Oyc+Z13gtQ0fTVJ3DJN 7mbtjOTKnrgVwCU16LH 29L3AnZijmfZAojPW+P ZIobmMnaBjeFS0iCkWr s3mmi5XxJDgaI7YdXKZ jMXzvIhk5BXUvGKP5rV N6tB1hQAXtAXgny4C8k LI3I6PkijVcpr1lb0re WDXgCYfzA79flQErt9F 2GSZpsRS6GPDqdHtdDl UcmD29Xla+PGNvbGdyb 9NcNhhym3qnj4wumIq9 IjMwJSIgdmFsaWduPSJ 2t9XwIi29B10uOCifXF RoPSIxNSUiIHZhbGlnb v5yhM8uQg5+PGNvbCB3 pLK4hS1tYRDhKbK6OYv xX746TcTwvADgOftie5 dnm3cccBk8ZjGvCAKld vNwuScrOUN9i3JlIc69 M40fZWuwMTDfYYWhYSI gRLZxaShivb5uhN5nLj 8+YV5zi7ohfm09oM24g HI+HFCrPGL6gFjzPMuz CGBnkX7wCNbkTlC2OKA bWlJkmG89fHUkOMdrBg 8osGcvdQqiKU6iNBEti uhtm176RjByb1ypEFWj lLNpSPjqZNI0L95vz3S 6REHdQXLrJDB6fQC0nJ 1hbGlnbjogbGVmdDsgd aIywIjfBFjzTFqwR986 IHRvcDsnPlBhdGllbnQ rFiPhLUk1M1JdGol6NL YerFwmGG4yyCVjWMszD u8zqHucgNipOR5gFKZd qiwmw780VnMfq6sfMQT axBCsDGiwTXV9S12nz5 C1PMShZEPrWBD9lVK8l D6wjQkguxvehCCcbNph plCarHuqHHkxNXmtQ03 6IHRvcDsnPkJpcnRoIE AhwUW4SQ37HQ93nOIdd 5M3tCR1A9IgKHCxoity azsefKL8XGTwTXNujI1 2Ep2vqHnaOk8lROSyGR H4XZMsvNYfH9UeqK2sO lRyMBOvTRRcD5GmjGSt JAesQ834KZxrPvF4VII wirWtJ7UqXQTnsHffVc T4u5B0Hh9UG9L1MB33P A72rQKgp5F1nJF1V9Ef BBMbesoutvllaZS8QGW zCIWgkY56Cr5rhTmmIh 0yHJWzAFS1BVHjbBBxW 0BxxH2cWtTvOPMgPXHk E8UxvATjTDejJ352TXp lZsH6SUCwqoTlF5ZhQS NclBifHaY8y4P3Yy9UB Pd7IO54JS10pXDdc7L2 uGV7X7IsAMKathmhwro zfFD3OCTqFKEqaI62Dm 0rpFajNq9fNHWwIMH3D CRplHLyQ9OcdZ0tPkBp YKKkJXAwC1TinCWoDZm yH086EWvqLiG3FECpwu VsA2QjAHHgcGdcXfP5y 9N4Im8VUOEbJA24EJI2 lLX5RN17VQ78L3DjWjj vdGFibGU+PHRhYmxlIH dpZHRoPScxMDAlJyBzd TwgOB3jAz6xVNGiANOg gBhagYNfRmGos1jbBNZ zJPfmKW4yfOzuT7TzwR W8IQZgy5h6Mg16L76oT 3JvdXA+RZPpvYS1tII6 vW8kLqQiJmW7MCcjI97 9DvXsjXWtJqlos3uqv5 cusVg0EbW3VZLicoKoo KaxLXG5d8PiQk73J72c IHdpZHRoPSIxNSUiIHZ woTvzfu8hsW0dRw3+PG EsuXO3iGJ8fO0qIcUwI oG7YZeqQ520TzBvjVXh Jmsfc7bgn2jatLo3VrC jQAXrahJylBekBAA3u0 DxBq29T7OzlFwlb5XmC bp2xr67dGYkt0R0jMP4 G7BtCZGjznqjaUEabKm vWR1fIFMfanssNDPgfJ 9vIYOpL6u2WcHaXdH2G JbyC7RckzI2GYSfnKAr ONckLTH7B99hb4H9RKV hKLLlLSF0gDX5cO7tiH lnbjogbGVmdDsgdmVyd AjjWZgvNOrmK739TTQi bQdgRYZpuF5cGVAfkOL aiCepIP6zQWKfthdlNi lUCQ4GUOQJBaugIWxTR CEEVBJMXF19TC07zJWy k8P8oZR9R3PuHFWbdcq ncslnwXN2UBHkSVWqvM 29oYUmYEueAp4sw3D9i 156EZLkUYAhpL57Es9a zVkqUYHlhLZBgB2vrsj qq9wydghrTiNiYJByDK j4TKw3FQDovNqnIyAmH HG2WhQ1SFQ1sDLwqG6z jHdplvbckW8fLsq+MTI hRQmaFXt9JIlkmLI+PH MvCJU8dFphYGhoRSXlc V7iUOEgY1i9LvNvTwU7 IRslQ0CnTHNjconzYq8 3lG5bNxHfGvE0PHjlN3 CfgiL8LWStxXKcEGhgQ BW4U07jh2C3VBDpCZEd GIK2vAM7vL0dgFfdiuk gbGVmdDsgdmVydGljYW tgBUqdU257IHIxpQtvW aW0LOilZHWtOW52ZB03 tYOdf2U5oEN9E4EnFQA zglwymtwfhDI5HXLtAP ZtuP38lFXnOBquGm8er 7V0s936TLKvTMFiuI98 Gd3yzLbcZVFbxPWExZ4 ipiorz1opufdxEySyOT RtPXf0EYv1XQRawYqiG mDgOLO6RjB4VLX5mVKz kX1mqZpbhxbhgF3wXte +VzNwIMbgGB46YE05wJ Lxh5U8rTM8O7QzXRSof gqhvytpxAH1GCEvXRLa bD47mHGlQCnpIq3qe7Y 4z053BARuLAYkfZ14Vx 3ymMqvUKGgcLYZiX1dw nvbx2jpcyhcJsKwVGZm KOr6WOi4SBAmoAqqShZ xLUX9ObK5VBC2hPFswB 4dbVesazlepH7hUnc+T 0K0uES6cHRrnXnjnBJ+ GL02ue58Z8FhDhtqNkh 7WYRvOTM1lIU2sS9aKO HfTRuph3E1wJD7F2Mcy gYvyy5ua3utYEMoYOfq M91lpTMab2N8MNDggKR 8BSPhvXdrObYdxO26Xv c+UDVqqPkga3MeXkumj 9vaf0fxeRc5DgFcGFLq stJdvFteCWE0m5DjXi6 4R31lGNbzZCEsUQWzFG BwJLTsdNamto8ztL8cX i8+GOVzpTZ0lXI2nG8w AgFzDmP0EQfoN278PgJ tfQKlSxooz8qmf8vtrR h7RiCgEJMkhoHjgRzhH YO0a7ShSu95U1EazDvv j9SlXqu2fy86iUMcf0K 5wWH2I6HgSLGkweaadL VfwTsgTM8jXJEsmhteS RIhxH1rWHNjA8q5YtLi SeD3PJieZ0CzbfX3FCJ kwMXpYYTuhDZLvW6qus rzj0kwvpklAkFwBAWrL Gt1INc3GBIhoKhjPrCz OOU3MdD2QIQ8bBAgsT4 qsBnbouqduG4mFsf+UG b6g9qhaKDhZP8jqGU4Y V81LV73vGEfe8A8oSA9 Q9ZoRQXrumwbeztxgRM 6WHHcHVSdlA80Wb0poK waTl7aBLOgHEV9WEMcq MIqO2TeqL8fGoAbDHCb AOJdJ4XajSBbBUyqN65 5NMabYmR5FWMjbrGnG0 ItNMQzxGwhKnU1o5T9L t7FFZ44XS66SV80oMFj x8B3nID8C5KxESNjdyx txvgjpUW1TKLhKMHdwP 41Qe0ytAyuTl6hSMSjY HD5OFFqfXWnU2DnzR5m ZfZzPZHeYQAxY3TdfDL oHFluP039FAamRhJ0SK JmfuPmI5NaIRFzkHugS nG9u7Q8Fr6OTm20EY07 CA19sVKbp3T8rLL1I1F iUFIrstpuvuwnuTW8NP UrIRTbbG09Sw9lbZftF h9fOYNlLHK7CBXtqCDr A6IwnP5fIlWpFCEkVRX qW0OqkZDuFLilM381SL dsMkE6JNFqtvUsK4JoZ OMxbYzeOvC1a5T0Bi6K WSbzmlt7F4KwBczcsYY +BX46RIQaXR08rTMyeT Obp0sljYp8NqVgZLUqG AJ3yFrvTOule8CmWPNt Y29s (more content not included)... Normal [facility] Consent for Treatmenton Consent for Treatment [id number]:127 [facility] Physician Orderon 10-21-2020 Physician Order [id number] [id number]#[id number]:127 [facility] Consent for Treatmenton Consent for Treatment [id number] [id number]#[id number]:127 Normal [facility] Physician Orderon 10-19-2020 Physician Order [id number]#1.00CD:127 Normal [facility] XR Chest 2 [facility] XR Chest [...] M.D. Transcribed by: SHAYNA Technologist: BECKI Corona [facility] Vital Signs Date Time Vital Sign Value Performing Clinician Facility 07-26-2023 11:27-0500 Body height 170.2 cm Kaitlyn Jasso MD Work Phone: [email or web address] 06-12-2023 13:00-0500 Body height 170.18 cm Shun Hill Other [employer] Other 06-12-2023 13:00-0500 Body mass index (BMI) [Ratio] 35.24 kg/m2 Shun Haleormack Other [facility] [employer] Other 06-12-2023 13:00-0500 Body weight 102.06 kg Shun Hill Other [facility] [employer] Other 03-15-2023 12:29-0400 Diastolic blood pressure 89 mm[Hg] DO Irma Burt Work Phone: [facility] 03-15-2023 12:29-0400 Heart rate 70 /min DO Irma Burt Work Phone: [facility] 03-15-2023 12:29-0400 Respiratory rate 16 /min DO Irma Burt Work Phone: [facility] 03-15-2023 12:29-0400 SaO2% (BldA) [Mass fraction] 100 % DO Irma Burt Work Phone: [facility] 03-15-2023 12:29-0400 Systolic blood pressure 132 mm[Hg] DO Irma Burt Work Phone: [facility] 03-15-2023 08:54-0400 Body height 170.18 cm DO Irma Burt Work Phone: [facility] 03-15-2023 08:54-0400 Body weight 90.71 kg DO Irma Burt Work Phone: [facility] 02-08-2023 14:45-0400 Body height 170.18 cm Shun Hill Other [employer] Other 02-08-2023 14:45-0400 Body mass index (BMI) [Ratio] 34.92 kg/m2 Shun Hill Other [employer] Other 02-08-2023 14:45-0400 Body weight 101.15 kg Shun Hill Other [employer] Other 02-08-2023 14:45-0400 Diastolic blood pressure 80 mm[Hg] Shun Hill Other [employer] Other 02-08-2023 14:45-0400 Systolic blood pressure 131 mm[Hg] Shun Hill Other [facility] Other 01-16-2023 10:35-0400 Body height 170.18 cm Aydee Nadiya Other [facility] Other 01-16-2023 10:35-0400 Body mass index (BMI) [Ratio] 35.2 kg/m2 Aydee Nadiya Other [facility] Other 01-16-2023 10:35-0400 Body temperature 98.3 [degF] Aydee Nadiya Other [facility] Other 01-16-2023 10:35-0400 Body weight 101.97 kg Aydee Nadiya Other [facility] Other 01-16-2023 10:35-0400 Diastolic blood pressure 66 mm[Hg] Aydee Nadiya Other [facility] Other 01-16-2023 10:35-0400 Respiratory rate 18 /min Aydee Nadiya Other [facility] Other 01-16-2023 10:35-0400 SaO2% (BldA) [Mass fraction] 98 % Aydee Nadiya Other [facility] Other 01-16-2023 10:35-0400 Systolic blood pressure 105 mm[Hg] Aydee Nadiya Other [facility] Other 09-23-2022 10:45-0400 Body height 170.18 cm Aydee Nadiya Other [facility] Other 09-23-2022 10:45-0400 Body mass index (BMI) [Ratio] 35.13 kg/m2 Aydee Nadiya Other [facility] Other 09-23-2022 10:45-0400 Body temperature 99.2 [degF] Aydee Nadiya Other [facility] Other 09-23-2022 10:45-0400 Body weight 101.74 kg Aydee Nadiya Other [facility] Other 09-23-2022 10:45-0400 Diastolic blood pressure 80 mm[Hg] Aydee Nadiya Other [facility] Other 09-23-2022 10:45-0400 Respiratory rate 18 /min Aydee Nadiya Other [facility] Other 09-23-2022 10:45-0400 SaO2% (BldA) [Mass fraction] 98 % Aydee Nadiya Other [facility] Other 09-23-2022 10:45-0400 Systolic blood pressure 125 mm[Hg] Aydee Hearn Other [facility] Other 09-04-2022 11:20-0400 Body height 170.18 cm Aydee Hearn Other [facility] Other 09-04-2022 11:20-0400 Body mass index (BMI) [Ratio] 31.32 kg/m2 Aydee Hearn Other [facility] Other 09-04-2022 11:20-0400 Body temperature 97.8 [degF] Aydee Hearn Other [facility] Other 09-04-2022 11:20-0400 Body weight 90.72 kg Aydee Hearn Other [facility] Other 09-04-2022 11:20-0400 Respiratory rate 18 /min Aydee Hearn Other [facility] Other 09-04-2022 11:20-0400 SaO2% (BldA) [Mass fraction] 99 % Aydee Hearn Other [facility] Other Encounters Encounter Date Encounter Type Care [...] pital Start: 09-20-2023 End: 09-21-2023 ambulatory [facility] Start: 09-18-2023 End: 09-18-2023 ambulatory SAGAR LUKE Not Available Start: 09-17-2023 End: 09-17-2023 ambulatory SAGAR R LUKE [facility] Start: 09-17-2023 End: 09-17-2023 ambulatory KAITLYN [facility] Start: 08-31-2023 End: 09-04-2023 ambulatory FROYLAN Rascon RACHEL [facility] Start: 08-15-2023 End: 08-15-2023 ambulatory IRMA KD Not Available Start: 07-26-2023 Chart abstracting Kaitlyn Jasso MD Work Phone: [facility] Start: 07-18-2023 End: 07-18-2023 ambulatory SAGAR LUKE Not Available Start: 06-20-2023 End: 06-20-2023 ambulatory Shun Hill Other [facility] Other Start: 06-20-2023 Telephone encounter Shun infante [facility] Start: 06-19-2023 End: 06-19-2023 ambulatory SAGAR BUTLER Not Available Start: 06-12-2023 End: 06-12-2023 ambulatory Shun Hill Other [facility] Other Start: 06-12-2023 Office outpatient vi sit 15 minutes Shun Hill [facility] Start: 05-01-2023 End: 05-01-2023 ambulatory Shun Hill Facility:[facility] Start: 05-01-2023 End: 05-01-2023 ambulatory DO Irma D Burt Work Phone: [facility] Work Phone: Start: 05-01-2023 End: 05-01-2023 Patient encounter procedure DO Irma Burt Work Phone: [facility] Work Phone: Start: 04-10-2023 End: 04-10-2023 ambulatory Shun Haleormack Facility:[facility] Start: 04-10-2023 End: 04-10-2023 ambulatory DO Irma D Burt Work Phone: [facility] Work Phone: Start: 04-10-2023 End: 04-10-2023 Patient encounter procedure DO Irma Burt Work Phone: [facility] Work Phone: Start: 04-06-2023 End: 04-06-2023 ambulatory Shun Hill Other [facility] Other Start: 04-06-2023 Telephone encounter Shun infante [facility] Start: 03-20-2023 End: 03-20-2023 ambulatory Shun Hill Other [facility] Other Start: 03-20-2023 Telephone encounter Shun Moncada naresh [facility] Start: 03-19-2023 End: 03-19-2023 ambulatory Shun Liz Other [facility] Other Start: 03-19-2023 Telephone encounter Shun Moncada naresh [facility] Start: 03-15-2023 End: 03-15-2023 ambulatory Shun Hill Facility:[facility] Start: 03-15-2023 End: 03-15-2023 Admission to same day surgery center DO Irma Burt Work Phone: [facility] Work Phone: Start: 03-15-2023 End: 03-15-2023 ambulatory DO Irma Landrum Burt Work Phone: [facility] Work Phone: Start: 02-26-2023 End: 02-26-2023 ambulatory Shun Liz Other [facility] Other Start: 02-26-2023 Telephone encounter Shun Moncada naresh [facility] Start: 02-08-2023 End: 02-08-2023 ambulatory Shun Liz Other [facility] Other Start: 02-08-2023 Office outpatient ne w 45 minutes Shun Hill [facility] Start: 01-16-2023 End: 01-16-2023 ambulatory Aydee Hearn Other [facility] Other Start: 01-16-2023 Office outpatient vi sit 15 minutes Aydee Nadiya [facility] Start: 09-23-2022 End: 09-23-2022 ambulatory Aydee Nadiya Other [facility] Other Start: 09-23-2022 Office outpatient vi sit 15 minutes Aydee Nadiya [facility] Start: 09-04-2022 End: 09-04-2022 ambulatory Aydee Hearn Other [facility] Other Start: 09-04-2022 Nursing evaluation o f patient and report Aydee Hearn [facility] Start: 07-12-2022 End: 07-12-2022 ambulatory Perlarolo Márquez Other [facility] Other Start: 07-12-2022 Office outpatient vi sit 5 minutes Perla Márquez [facility] Start: 07-07-2022 End: 07-07-2022 ambulatory Aydee Hearn Other [facility] Other Start: 07-07-2022 Encounter for other preprocedural examination Aydee Hearn [facility] Start: 07-07-2022 Nursing evaluation o f patient and report Aydee Haern [facility] Start: 02-03-2022 End: 02-03-2022 ambulatory Maria Guadalupe Powers Other [facility] Other Start: 02-03-2022 Office outpatient vi sit [...] Td Vaccines (3 - Td or Tdap) [facility] Start: 09-17-2023 End: 09-17-2023 Patient encounter procedure 09/17/2023 8:45 AM EDT Office Visit [facility] [address] [place] [id number] Kaitlyn Jasso MD [address] [facility] [address] [place] [address] [facility] Start: 09-17-2023 End: 09-17-2023 Patient encounter procedure 09/17/2023 7:30 AM EDT Appointment [facility] [address] [place] [id number] [facility] Start: 05-01-2023 [facility] Start: 03-15-2023 [facility] Start: 01-19-2023 COVID-19 Vaccine ( season) COVID-19 Vaccine ( season) [facility] Start: 01-19-2023 Influenza vaccination Influenza Vacc ine [facility] Start: 12-30-2021 Adult BMI Screening Adult BMI Screen ing [facility] Start: 2006 Screening for malign ant neoplasm of cervix Pap Smear [facility] Start: 1997 Depression Screening Depression Scre ening [facility] Start: 1997 Tobacco Screening Tobacco Screening [facility] Immunizations Immunization Date Immunization Notes Care Provider Fa cility 02-03-2020 influenza virus vaccine, unspecified formulation Kaitlyn Jasso MD Work Phone: [facility] Payers Date Payer Category Payer Private Health Insurance [id number] 2023 Self-pay [id number] 2018 Private Health Insurance [employer] POS II [id number] 2018-Present [phone] [address] [place] [address] [id number] 1985 Unknown [id number] 2.16.840.1.385741.3.579.2 .1285 1985 Unknown [id number] 2.16.840.1.396327.3.579.2 .1285 1985 Unknown [id number] 2.16.840.1.129786.3.579.2 .1285 1985 Unknown [id number] 2.16.840.1.669724.3.579.2 .1285 1985 Unknown [id number] 2.16.840.1.653022.3.579.2 .1285 1985 Unknown [id number] 2.16.840.1.524962.3.579.2 .1285 1985 Unknown [id number] 2.16.840.1.390816.3.579.2 .1285 1985 Unknown [id number] 2.16.840.1.324705.3.579.2 .1285 1985 Unknown [id number] 2.16.840.1.058424.3.579.2 .1285 1985 Unknown [id number] 2.16.840.1.981262.3.579.2 .1285 1985 Unknown [id number] 2.16.840.1.051551.3.579.2 .1285 1985 Unknown [id number] 2.16.840.1.199294.3.579.2 .1285 1985 Unknown [id number] 2.16.840.1.662642.3.579.2 .1259 1985 Unknown [id number] 2.16.840.1.200441.3.579.2 .1258 1985 Unknown [id number] 2.16.840.1.355295.3.579.2 .9 1985 Unknown [id number] 2.16.840.1.355908.3.579.2 .1258 1985 Unknown [id number] 2.16.840.1.571167.3.579.2 .1258 1985 Unknown [id number] 2.16.840.1.595289.3.579.2 .1258 1985 Unknown [id number] 2.16.840.1.420117.3.579.2 .1258 1985 Unknown [id number] 2.16.840.1.145138.3.579.2 .1258 1985 Unknown [id number] 2.16.840.1.823017.3.579.2 .1258 1985 Unknown [id number] 2.16.840.1.453440.3.579.2 .1259 Medicaid [facility] [id number] Private Health Insurance [id number] Unknown [employer] [id number] Unknown [id number] 2.16840.1.968665.3.579.2 .531 Unknown [id number] 2.16840.1.426782.3.579.2 .531 Unknown [id number] 2.16840.1.855362.3.579.2 .531 Social History Date Type Detail Facility Start: 06-30-2020 End: 07-26-2023 Sex Assigned At [facility] [employer] Other Start: 03-15-2023 End: 03-15-2023 Tobacco smoking status NHIS Ex-smoker (finding) [facility] Start: 1985 Sex Assigned At Female F [facility] Start: 11-17-2020 Tobacco smoking stat us NHIS Smokes tobacco daily [facility] History of tobacco use Tobacco U se Types Packs/Day Years Used Date Smoking Tobacco: Every Day Vaping/E-cigarettes Smokeless Tobacco: Never [facility] Start: 11-17-2020 Tobacco use and exposure Smokeless tobacco non-user [facility] Start: 07-26-2023 Alcohol intake Current drinke r of alcohol (finding) [facility] Start: 06-30-2020 End: 07-26-2023 History of Social function [facility] Childcare Unknown [facility] Start: 11-17-2020 Alcohol Comment social [facility] Start: 05-04-2023 [facility] Start: 1985 Sex Assigned At Not on file P [facility] Goals Date Patient Goal [...] Mayelin Pinto DO on 08/31/2023 11:23 AM [facility] 06-12-2023 Evaluation note Encounter Date Diagnosis Assessment Notes May, Diarrhea (ICD-10 - R19.7) Patient reports that she is about 7-8 weeks gestational Patient reports improvement on Creon with occasional flare Patient reports that she is taking a fiber supplement May, Fatty liver (ICD-10 - K76.0) Patient did have a FibroScan that indicates fatty liver and minimal scaring, this will be reviewed [facility] Other 11-17-2023 Evaluation note* Encounter Date Diagnosis Assessment Notes Treatment Notes Treatment Clinical Notes Mar, Exocrine pancreatic insufficiency (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) [facility] Other 10-31-2023 Evaluation note* Encounter Date Diagnosis Assessment Notes Treatment Notes Treatment Clinical Notes Feb, Alternating constipation and diarrhea (ICD-10 - R19.8) Feb, Fecal urgency (ICD-10 - R15.2) [facility] Other 10-30-2023 Evaluation note* Encounter Date Diagnosis Assessment Notes Treatment Notes Treatment Clinical Notes Feb, Alternating constipation and diarrhea (ICD-10 - R19.8) [facility] Other [facility] Encounter Date Diagnosis Assessment Notes Treatment Notes Treatment Clinical Notes Feb, Alternating constipation and diarrhea (ICD-10 - R19.8) [facility] Other 09-21-2023 Evaluation note* Encounter Date Diagnosis Assessment Notes Treatment Notes Treatment Clinical Notes Jan, Alternating constipation and diarrhea (ICD-10 - R19.8) WORSENING DIARRHEA AND CONSTIPATION OVER THE PAST YEAR. DOES HAVE SOME NOCTURNAL AWAKENINGS WITH THE DIARRHEA. CAN GO 4-5 DAYS WITH OUT A BOWEL MOVEMENT WHEN SHE IS CONSTIPATED. WILL ORDER IBS WORK UP WILL PROCEED WITH COLONOSCOPY [facility] Other 08-29-2023 Evaluation note* Encounter Date Diagnosis [...] no improvement in 2 to 3 days [facility] Other 2023 Evaluation note* Encounter Date Diagnosis [...] no improvement in 2 to 3 days [facility] Other 04-17-2023 Evaluation note* Encounter Date Diagnosis Assessment Notes Treatment Notes Treatment Clinical Notes Aug, Contact with and (suspected) exposure to other viral communicable diseases (ICD-10 - Z20.828) [facility] Other 02-22-2023 Evaluation note* Encounter Date Diagnosis Assessment Notes Treatment Notes Treatment Clinical Notes Jun, Contact with and (suspected) exposure to covid-19 (ICD-10 - Z20.822) [facility] Other 02-17-2023 Evaluation note* Encounter Date Diagnosis Assessment Notes Treatment Notes Treatment Clinical Notes Jun, Preoperative clearance (ICD-10 - Z01.818) [facility] Other 09-16-2022 Evaluation note* Encounter Date Diagnosis Assessment Notes Treatment Notes Treatment Clinical Notes Jan, Contact with and (suspected) exposure to covid-19 (ICD-10 - Z20.822) [facility] Other Evaluation note* Diagnosis Onset Date Resolution Status Diarrhea acute [facility] Work Phone: Evaluation noteNo InformationNort [employer] [place] Other History general Narrative - Reported* Type Description Date Medical History ANXIETY AND DEPRESSION [facility] Other Hospital Discharge instructions Additional Instructions DISCHARGE [...] if you have any problems. -Office number [phone] Work Phone: InstructionsNot on filedocumented in this encounter [employer] SystemReason for visit NarrativeRED EQUINOX, ANTIGEN PROCEDURE TESTNoOneID Other Reason for visit NarrativeNEEDSNEGATIVE, RAPID COVID TEST FOR PROCEDURENoOneID Other Summary Purpose Family History No Family [...] section and content) DATE CREATED AUTHOR 08/24/2021 [facility] DATE CREATED AUTHOR AUTHOR'S ORGANIZ ATION 05/09/2023 [facility] DATE CREATED AUTHOR AUTHOR'S ORGANIZ ATION 09/22/2023 [facility] DATE CREATED AUTHOR AUTHOR'S ORGANIZ ATION 12/25/[address] 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 [facility]. provides no warranty or guarantee of the accuracy or completeness of information in this document.
--- NOTE | 2024-01-03 11:57 | US_ITS ---
[address] [address] Patient Name: GONZÁLEZ LOMELI MRN: [id number] date: 1985 Sex: F Assigned Patient Location: [facility] Current Patient Location: [facility] Accession/Order Number: [id number] Exam Date: 01/03/2024 12:00 Report Date: 01/03/2024 12:59 At the request of: SAGAR BUTLER Procedure: US OB growth EXAMINATION: US OB growth HISTORY: Excessive growth COMPARISON: Ultrasound OB biophysical 12/31/2023 FINDINGS: Heart Rate: 140.63 bpm Amniotic Fluid Volume: 24.9 cm; at 95th percentile. Number: 1 Position: CEPHALIC BIOMETRY: BPD: 9.43 cm; 30 weeks 3 days; 93.60 % HC: 34.62 cm; 40 weeks 1 day; 91.30 % AC: 35.09 cm; 39 weeks 1 day; >97 % FL: 6.78 cm; 34 weeks 6 days; 7.80 % EFW: 3407.10 g; 85.90 % FL/AC: 19.33 FL/BPD: 71.90 HC/AC: 0.99 GESTATIONAL AGE: Age by EDC: 36 weeks 6 days IFEANYI by EDC: 2024-01-25 Age by US: 38 weeks 1 day IFEANYI by US: 2024-01-16 US/US OB growth IMPRESSION: 1. Single live intrauterine with growth detailed above. 2. Abdominal circumference is greater than 97th percentile. 3. Amniotic fluid volume is at the 95th percentile. Electronically authenticated by: SHIMA PARRA Date: 01/03/2024 12:59
[2024-01-03 12:27] VITALS: BP 135/77; PULSE 104
--- NOTE | 2024-01-03 12:44 | US_ITS ---
[place] [address] Patient Name: GONZÁLEZ LOMELI MRN: [id number] date: 1985 Sex: F Assigned Patient Location: [facility] Current Patient Location: Accession/Order Number: [id number] Exam Date: 01/03/2024 12:45 Report Date: 01/03/2024 14:06 At the request of: SAGAR BUTLER Procedure: US OB umbilical artery EXAMINATION: US OB umbilical artery HISTORY: true knot COMPARISON: Ultrasound OB biophysical 12/31/2023 TECHNIQUE: Duplex Doppler evaluation of the umbilical arteries. FINDINGS: HEART RATE: 160 bpm UMBILICAL ARTERIES: 2 GESTATIONAL AGE: 36 weeks 6 days WAVEFORM: Normal upstroke. No notching. Forward flow in diastole. PEAK SYSTOLIC VELOCITY: 108 cm/s END DIASTOLIC VELOCITY: 58 cm/s SYST/DIAST RATIO (S:D): 1.9 RESISTIVE INDEX: 0.47 US/US OB umbilical artery IMPRESSION: 1. Class 0 = Normal umbilical artery blood velocity Normal values:: Age 36: 1.96 for the 10th percentile, 2.35 for the 50th percentile, 3.15 for the 90th percentile Age 38: 1.89 for the 10th percentile, 2.24 for the 50th percentile, 3.10 for the 90th percentile Resistive Index (RI): Normal=<0.55 Electronically authenticated by: SHIMA PARRA Date: 01/03/2024 14:06
--- NOTE | 2024-01-03 12:44 | US_ITS ---
[address] [address] Patient Name: GONZÁLEZ LOMELI MRN: [id number] date: 1985 Sex: F Assigned Patient Location: [facility] Current Patient Location: [facility] Accession/Order Number: [id number] Exam Date: 01/03/2024 12:45 Report Date: 01/03/2024 15:56 At the request of: SAGAR BUTLER Procedure: US OB BPP w non-stress EXAMINATION: US OB BPP w non-stress HISTORY:true knot COMPARISON: Ultrasound OB biophysical 12/31/2023 TECHNIQUE: Ultrasound biophysical profile was performed in the radiology department. BREATHING MOVEMENTS: 2 GROSS BODY MOVEMENTS: 2 TONE: 2 QUALITATIVE AMNIOTIC FLUID VOLUME: 2 PRESENTATION: Cephalic HEART RATE: 160 bpm AMNIOTIC FLUID VOLUME: 25.1 cm; normal range GESTATIONAL AGE: 36 weeks 6 days US/US OB BPP w non-stress IMPRESSION: 1. Total biophysical profile score: 8 Electronically authenticated by: SHIMA PARRA Date: 01/03/2024 15:56
== END 2024-01-03 13:37 | disposition home or self-care (01) ==
LOC: FBCO 07:08 → FBC 11:52
PROVIDERS: Visit Provider Obstetrics & Gynecology
DX: O16.3 Unspecified maternal hypertension, third trimester (principal); O69.2XX0 Labor and delivery complicated by other cord entanglement, with compression, not applicable or unspecified; Z3A.36 36 weeks gestation of pregnancy
CPT/HCPCS: 76816; 76818; 76820

== ENCOUNTER 2024-01-07 12:35 | Inpatient (IN) | payer OTHER, SELFPAY ==
[2024-01-07] VITALS (49 sets, daily range): BP systolic 92–172; BP diastolic 53–114; PULSE 91–126; TEMP 36.3–37.3
--- OUTSIDE RECORDS SUMMARY | 2024-01-07 07:13 | XMS_ITS | CCD ---
Author Organization [facility] Inform ion Partnership [facility] Care Team Providers Care [employer] Salesperson Name Role Phone Maria Guadalupe Powers Unavailable NadiyaAydee anderson Unavailable Perla Márquez Unavailable Shun Hill Unavailable MD Shun Hill Attending Provider [phone] DO Irma Burt Primary Care Provider [phone] MD Shun Hill Attending Provider DO Irma [...] day for 10 day(s) Jul, Active amylase 704089 unt / lipase 92929 unt / protease 813454 unt delayed release oral capsule (3 sources) Start: 04-06-2023 take 2 capsules by mouth three times daily at mealtime Creon 65370-315342 UNIT 2 capsules Orally three times a [...] 1 tablet by mouth twice daily Sutab 7924-549-035 MG 12 tablets the first dose the [...] 5 day(s) September, Not-Taking 84 hr estradiol 0.69554 mg/hr transdermal system (4 sources) Estrogen take [...] URINE PROTEIN 170 mg/L High <120 [facility] Comment on above: Performed By: #### U PCR #### [facility] ([id number]) [address] [address] [place] [address] U/PRO/LIFE SPECIALIST RATIO CALC 0.17 Normal <0.2 [facility] Comment on above: Result Comment: Neph rotic Syndrome is associated with ratios >3.5 Performed By: #### U PCR #### [facility] ([id number]) [address] [address] URINE CREATININE,RDM 98.06 mg/dL Normal [facility] Comment on above: Performed By: #### U PCR #### [facility] ([id number]) [address] [address] COMPLETE BLOOD COUNTon 09-16 Erythrocyte distribution width (RBC) [Ratio] 13.0 % Normal 11.5-15.[address] [facility] Comment on above: Performed By: #### C BC, CMP, FEPR, 2532-0, 3084-1, TSHR, 2276-4, 2284-8, 2132-01 #### [facility] ([id number]) [address] [address] Hematocrit (Bld) [Volume fraction] 34.6 % Low 35-[address] [facility] Comment on above: Performed By: #### C BC, CMP, FEPR, 2532-0, 3084-1, TSHR, 2276-4, 2284-8, 2132-01 #### [facility] ([id number]) [address] [address] [place] [address] Hemoglobin (Bld) [Mass/Vol] 11.9 g/dL Normal 11.7-15.[address] [facility] Comment on above: Performed By: #### C BC, CMP, FEPR, 2532-0, 3084-1, TSHR, 2276-4, 2284-8, 2132-01 #### [facility] ([id number]) [address] [facility] [address] [place] [address] MCH (RBC) [Entitic mass] 30.9 pg Normal 27-[address] [facility] Comment on above: Performed By: #### C BC, CMP, FEPR, 2532-0, 3084-1, TSHR, 2276-4, 2284-8, 2132-01 #### [facility] ([id number]) [address], [address] [place] [address] MCHC (RBC) [Mass/Vol] 34.4 g/dL Normal 32-36 [facility] Comment on above: Performed By: #### C BC, CMP, FEPR, 2532-0, 3084-1, TSHR, 2276-4, 228-8, 2132-01 #### [facility] ([id number]) [address] [address] [place] [address] MCV (RBC) [Entitic vol] 90 fL Normal 80-[address] [facility] Comment on above: Performed By: #### C BC, CMP, FEPR, 2532-0, 3084-1, TSHR, 2276-4, 228-8, 2132-01 #### [facility] ([id number]) [address] [address] [place] [address] Platelet mean volume (Bld) [Entitic vol] 9.4 fL Normal 7-[address] [facility] Comment on above: Performed By: #### C BC, CMP, FEPR, 2532-0, 3084-1, TSHR, 2276-4, 2284-8, 2132-01 #### [facility] ([id number]) [address] [address] [place] [address] Platelets (Bld) [#/Vol] 181 10*3/uL Normal 150-[address] [facility] Comment on above: Performed By: #### C BC, CMP, FEPR, 2532-0, 3084-1, TSHR, 2276-4, 2284-8, 2132-01 #### [facility] ([id number]) [address], [address] [place] [address] RBC COUNT 3.85 X10E12/L Normal 3.80-5.[address] [facility] Comment on above: Performed By: #### C BC, CMP, FEPR, 2532-0, 3084-1, TSHR, 2276-4, 2284-8, 2132-01 #### [facility] ([id number]) [address], [address] [place] [address] WBC (Bld) [#/Vol] 11.3 10*3/uL High 4.0-11.0 [facility] Comment on above: Performed By: #### C BC, CMP, FEPR, 2532-0, 3084-1, TSHR, 2276-4, 2284-8, 2132-01 #### [facility] ([id number]) [address], [address] [place] [address] COMPREHENSIVE METABOLIC PANE Charles 09-17-2023 Albumin [Mass/Vol] 3.4 g/dL Normal 3.2-5.3 [facility] Comment on above: Performed By: #### C BC, CMP, FEPR, 2532-0, 3084-1, TSHR, 2276-4, 2284-8, 2132-01 #### [facility] ([id number]) [address], [address] [place] [address] ALP [Catalytic activity/Vol] 71 U/L Normal 39-[address] [facility] Comment on above: Performed By: #### C BC, CMP, FEPR, 2532-0, 3084-1, TSHR, 2276-4, 2284-8, 2132-01 #### [facility] ([id number]) [address], [address] [place] [address] ALT [Catalytic activity/Vol] 11 U/L Normal 0-[address] [facility] Comment on above: Performed By: #### C BC, CMP, FEPR, 2532-0, 3084-1, TSHR, 2276-4, 2284-8, 2131-9 #### [facility] ([id number]) [address], [address] [place] [address] Anion gap [Moles/Vol] 11 mmol/L Normal 5-15 [facility] Comment on above: Performed By: #### C BC, CMP, FEPR, 2532-0, 3084-1, TSHR, 2276-4, 2284-8, 2132-01 #### [facility] ([id number]) [address], [address] [place] [address] AST [Catalytic activity/Vol] 13 U/L Normal 0-[address] [facility] Comment on above: Performed By: #### C BC, CMP, FEPR, 2532-0, 3084-1, TSHR, 2276-4, 2284-8, 2132-01 #### [facility] ([id number]) [address], [address] [place] [address] Bilirubin [Mass/Vol] 0.3 mg/dL Normal 0.3-1.2 [facility] Comment on above: Performed By: #### C BC, CMP, FEPR, 2532-0, 3084-1, TSHR, 2276-4, 2284-8, 2132-01 #### [facility] ([id number]) [address], [address] [place] [address] Calcium [Mass/Vol] 9.0 mg/dL Normal 8.5-10.5 [facility] Comment on above: Performed By: #### C BC, CMP, FEPR, 2532-0, 3084-1, TSHR, 2276-4, 2284-8, 2131-9 #### [facility] ([id number]) [address], [address] [place] [address] Chloride [Moles/Vol] 104 mmol/L Normal 98-109 [facility] Comment on above: Performed By: #### C BC, CMP, FEPR, 2532-0, 3084-1, TSHR, 2276-4, 2284-8, 2132-01 #### [facility] ([id number]) [address], [address] [place] [address] CO2 [Moles/Vol] 24 mmol/L Normal 22-[address] [facility] Comment on above: Performed By: #### C BC, CMP, FEPR, 2532-0, 3084-1, TSHR, 2276-4, 2284-8, 2132-01 #### [facility] ([id number]) [address], [address] [place] [address] Creatinine [Mass/Vol] 0.46 mg/dL Normal 0.40-1.00 [facility] Comment on above: Result Comment: METH OD TRACEABLE TO IDMS STANDARD Performed By: #### C BC, CMP, FEPR, 2532-0, 3084-1, TSHR, 2276-4, 2284-8, 2132-01 #### [facility] ([id number]) [address], [address] [place] [address] eGFR (CKD-EPI) NON-RACE DEPENDENT >90 Normal >[address] [facility] Comment on above: Result Comment: Reported eGFR is based on the CKD-EPI 2020 equation that does not use a race coefficient. Performed By: #### C BC, CMP, FEPR, 2532-0, 3084-1, TSHR, 2276-4, 2284-8, 2132-01 #### [facility] ([id number]) [address], [address] [place] [address] Glucose [Mass/Vol] 78 mg/dL Normal 65-99 [facility] Comment on above: Performed By: #### C BC, CMP, FEPR, 2532-0, 3084-1, TSHR, 2276-4, 2284-8, 2132-01 #### [facility] ([id number]) [address], [address] [place] [address] Potassium [Moles/Vol] 4.0 mmol/L Normal 3.5-5.0 [facility] Comment on above: Performed By: #### C BC, CMP, FEPR, 2532-0, 3084-1, TSHR, 2276-4, 2284-8, 2132-01 #### [facility] ([id number]) [address], [address] [place] [address] Protein [Mass/Vol] 6.5 g/dL Normal 6.0-8.0 [facility] Comment on above: Performed By: #### C BC, CMP, FEPR, 2532-0, 3084-1, TSHR, 2276-4, 2284-8, 2132-01 #### [facility] ([id number]) [address] [address] [place] [address] Sodium [Moles/Vol] 139 mmol/L Normal 134-146 [facility] Comment on above: Performed By: #### C BC, CMP, FEPR, 2532-0, 3084-1, TSHR, 2276-4, 2284-8, 2132-01 #### [facility] ([id number]) [address], [address] [place] [address] Urea nitrogen [Mass/Vol] 8 mg/dL Normal 5-[address] [facility] Comment on above: Performed By: #### C BC, CMP, FEPR, 2532-0, 3084-1, TSHR, 2276-4, 2284-8, 2132-01 #### [facility] ([id number]) [address], [address] [place] [address] FERRITINon 09-17-2023 Ferritin [Mass/Vol] 11 ng/mL Normal 11-307 [facility] Comment on above: Performed By: #### C BC, CMP, FEPR, 2532-0, 3084-1, TSHR, 2276-4, 2284-8, 2132-01 #### [facility] ([id number]) [address], [address] [place] [address] Folate [Mass/Vol]on 09-17-19 24 FOLIC ACID 18.1 ng/mL Normal >5.[address] [facility] Comment on above: Result Comment: NEW REFERENCE RANGE Performed By: #### C BC, CMP, FEPR, 2532-0, 3084-1, TSHR, 2276-4, 2284-8, 2132-01 #### [facility] ([id number]) [address], [address] [place] [address] IRON PROFILEon 09-17-2023 Iron [Mass/Vol] 52 ug/dL Normal 50-[address] [facility] Comment on above: Performed By: #### C BC, CMP, FEPR, 2532-0, 3084-1, TSHR, 2276-4, 2284-8, 2132-01 #### [facility] ([id number]) [address], [address] [place] [address] IRON BINDING 580 ug/dL High 250-[address] [facility] Comment on above: Performed By: #### C BC, CMP, FEPR, 2532-0, 3084-1, TSHR, 2276-4, 2284-8, 2132-01 #### [facility] ([id number]) [address], [address] [place] [address] IRON SATURATION 9 % SATURATION Low 15-50 [facility] Comment on above: Performed By: #### C BC, CMP, FEPR, 2532-0, 3084-1, TSHR, 2276-4, 2284-8, 2132-01 #### [facility] ([id number]) [address], [address] [place] [address] LDH [Catalytic activity/Vol] on 09-17-2023 LDH 124 U/L Normal 100-[address] [facility] Comment on above: Performed By: #### C BC, CMP, FEPR, 2532-0, 3084-1, TSHR, 2276-4, 2284-8, 9 #### [facility] ([id number]) [address] [place] [address] Natriuretic peptide B [Mass/ Vol]on 09-17-2023 Natriuretic peptide B (Bld) [Mass/Vol] 66 pg/mL Normal <100.[address] [facility] Comment on above: Performed By: #### C BC, CMP, FEPR, 2532-0, 3084-1, TSHR, 2276-4, 2284-8, 2132-01 #### [facility] ([id number]) [address] [facility] [place] [address] TSH WITH REFLEXon 09-17-2023 TSH 0.78 uIU/mL Normal 0.49-4.[address] [facility] Comment on above: Performed By: #### C BC, CMP, FEPR, 2532-0, 3084-1, TSHR, 2276-4, 2284-8, 2132-01 #### [facility] ([id number]) [address] [facility] [facility] [place] [address] Thiamine (Bld) [Mass/Vol]on 09-17-2023 THIAMIN VITAMIN B1 See Below Normal [facility] Comment on above: Result Comment: NOTE [...] [facility] Pathology and Laboratory Medicine [place] ([facility]). It has not been cleared or approved by the FDA. [facility] is regulated under CLIA as qualified to perform high-complexity testing. This test is used for clinical purposes. It should not be regarded as investigational or for research. Test Performed By: [place] [address] Industrial Custodian: Colin Cisneros III, M.D. CLIA #[id number] Performed By: #### C BC, CMP, FEPR, 2532-0, 3084-1, TSHR, 2276-4, 2284-8, 2132-01 #### [facility] ([id number]) [address], [address] [place] [address] URIC ACIDon 09-17-2023 Urate [Mass/Vol] 5.1 mg/dL Normal 2.6-7.2 [facility] Comment on above: Performed By: #### C BC, CMP, FEPR, 2532-0, 3084-1, TSHR, 2276-4, 2284-8, 2132-01 #### [facility] ([id number]) [address], [address] [place] [address] VITAMIN B12on 09-17-2023 Cobalamin (Vitamin B12) [Mass/Vol] 185 pg/mL Normal 180-[address] [facility] Comment on above: Performed By: #### C BC, CMP, FEPR, 2532-0, 3084-1, TSHR, 2276-4, 2284-8, 2132-01 #### [facility] ([id number]) [address] [facility] [place] [address] TSHon 05-25-2023 Thyroid Stimulating (3Rd Generation) Hormone/ Tsh 2.200 [facility] [employer] [facility] CT abdomen w conon 3 CT abdomen w con [facility] Main [place] [address] [place] [address] CT Scan Report Signed Patient: Laura Alves MR#: [id number] 3 : 1985 Acct:[id number] Age/Sex: 37 / F ADM Date: 04/10/23 Loc: CT Room: Type: [facility] Attending Dr: Shun Hill MD Copies to: [...] Stan Owens M.D.04/10/2023 4:03 PM Dictation Location: [place] [address] Transcribed By: [facility] 04/10/23 8573 Dictated By: Stan Owens DO 04/10/23 2929 Signed By: 04/10/23 160 Normal [facility] HCG ( test) IA.rapi d Ql (U)Ordered By: Shun Hill on 03-15-2023 HCG ( test) Ql (U) Negative [facility] HCG,Urineon 03-15-2023 Beta HCG ( test) Ql (U) Negative Normal [facility] Comment on above: Result Comment: PERF ORMED BY: [address] [place] [id number] PATHOLOGIST [employer]ITY [employer] WORKER MARINA AYALA M.D. Performed By: #### U HCG #### [place] [id number] [facility] 03-15-2023 L Specimen: [id number] Received: 03/15/23 Status: BUSTER Alfredo Num: [id number] Spec Type: Surgical Subm Dr: Shun Hill MD Tissues: A Colon Biopsy (SURVEILLANCE BX) Procedures: Deepti CHILEL/Pierce L4 Age/ Patient Sex Location Account Attending Physician Laura Alves 37/F [id number] Shun Hill MD SPEC NUM: [id number] RECD: 03/15/23 STATUS: BUSTER RAMOS NUM: [id number] SUMIT: 03/15/23- DR: Shun Hill MD ENTERED: 03/15/[address] [facility] [address]: SPEC TYPE: Surgical DEPT: [...] The microscopic examination confirms the diagnosis. Specimen: [id number] Received: 03/15/23 Status: BUSTER Gonsalez Num: [id number] Spec Type: Surgical Subm Dr: Shun Hill MD Tissues: A Colon Biopsy (SURVEILLANCE BX) Procedures: HE/2, Gross/Micro L4 Patient: Rick Alvesy [id number] (Continued) Specimen: [id number] Received: 03/15/23 (Continued) Signed (signatur e on file) Winston Donis MD 03/16/23 1737 Specimen: [id number] Received: 03/15/23 Status: BUSTER Alfredo Num: [id number] Spec Type: Surgical Subm Dr: Shun Hill MD Tissues: A Colon Biopsy (SURVEILLANCE BX) Procedures: DUY/Yaz, Deepti/Pierce L4 Patient: Parminder Alvessay [id number] (Continued) Specimen: Received: 03/15/23 (Continued) CPT Codes 28520 Specimen: Received: 03/15/23 Status: BUSTER oGnsalezvanessa Num: [id number] Spec Type: Surgical Subm Dr: Shun Hill MD Tissues: A Colon Biopsy (SURVEILLANCE BX) Procedures: HE/Yaz, Gross/Micro L4 Patient: Laura Alves [id number] (Continued) Signed (signatur e on file) Robbi-Tyrel Donis MD 03/16/23 1737 [facility] SARS-CoV-2 (COVID-19) RNA NA A+probe Ql (Resp)on 01-16-2023 SARS-CoV-2 (COVID-19) RNA GEORGE+probe Ql (Unsp spec) Positive [employer] Other HIV 1&2 AB/AG Screen (P24 AG )on 12-13-2022 HIV 1&2 AB/AG [facility] Hepatitis B surface antigeno n 12-13-2022 Hepatitis B Surface Antigen Negative [facility] No Panel InformationOrdered By: Rae Agudelo on 12-13-2022 [facility] Rubella IGG immune statuson 12-13-2022 Rubella immune IgG <0.90 NON IMMUNE [facility] Syphilis Total(Unknown Syphi lis Status)Ordered By: Rae Agudelo on 12-13-2022 Syphilis Non-Reactive [facility] COVID Quick Testingon 2022 Result Negative [employer] Other COVID Quick Testingon 2022 Result Negative [employer] Other COVID Quick Testingon 2022 Result Negative [employer] Other COVID Quick Testingon 2021 Result Negative [employer] Other Consent for Treatmenton 05-21 Consent for Treatment [id number] 0 [id number] 318#1.00CD:127 [facility] Coding Summary.on 05-28-2021 Coding Summary. CD:[id number] DSg2iJz+PGhlYWQ+PE1 BAUQnH11knPUzjK7TM7 vDLL2OMHBDUOCOQC8TP V6bsUX0AZvbH1BsdoSw YwaphMLdCP07KCl3QGF 9hBzzHQiyvO8hpUEsR2 c6UuSeQS60qH83YHfoS LHtJqB6ObTwbjefjIMx S4jtBtRrbVPtKrv+PHR hYmxlIHdpZHRoPScxMD GsMoYgsCamVB4qBf5dV GVyLWNvbGxhcHNlOiBj w1fnAMYhJSgrXT3rbXy gI1OnySY6QIUes2u3Bt 48dHI+UJIqFPW2oAasF Lreb042IdZgc6ffCLJ6 tYMqQNiqMFW1N92hi4Z 2UCBgQLZyDWJ1qMM1vR 4rpLkdqbflB9XvrJYsG iE1REY4sOAudA9ucZvq gihniD4pRvu+T86UCJ9 DXBDBMP2FEhd2O3YtZm wvdHI+BR05HPUjPF10d PZuyBLgb0xjwOk9TlOk BWVsKIG3bTuvRXixx1O aHKSyJ48thMJxo6P0TM ChfCnumAIcXdLkcZL1g L7cPPjehfwdq7jxpkqo Xvldc9hiyc30sO72L21 sVOxyZUAlWWV4AGAqZQ MarOlvja2ibF5iKd5+I Kjec7vcc2nbrTc8FyOh COTznpDuoWgiSMJ5w6I uFu82I2SyoWaqg1CuWu q7vo23fJAgs0C0uMO9S JyvREJfuJ4oLIqhNrU6 QVIcBeXbnF46iWQyZLu uCv4oqBtsoIkfET1nGS QakduxXDVyrN0dATOym UNhnHsjHE3rCXGggiyo t040LuCgOFS5OLRjnJT qQ9QgaZ2tWqKtFTKlQX BrL5SrkBZgRSkdG355Q VndCzK4RYSrhsEoB5Vk RLIwpGghDeJ8s5Y3Cz5 Ck2AofzygWTY6CUzyLT GhEoT2LpIqRlI4M8UgI ey6UJGiiZrhZG0oN9Mq UPFnrdwciqbicPA4ILN oFTPpcC08pJHsVCqyGi 5yh1C9v873FYWtLXDzi H31Tn6orMyoLFMcpTYE sU5kvwdye0nnftpoIqY qBSLgQPz7NUe3ONLtiK wuQxQlGMC2VdV5FRG0e ULexQ7hnPhdklpnaZ3p Oyc+O75taR9nXXU1MVU 7lzvdYNFvfxQdAU29FB 14W4MyYiskpFXsiSF+P MNzsgHnsWhiKB3xDhVy u2wwv2FuRPomO7QpKNF zFOkhEus7DMLaNVK3uB A3pB3sAVTlSXnnc7G2z SU9W7XubiGyhn5qr1bj DVIcVKlmC42efEGnd9B 5NWXbcTO0XFZqiOuxBn FckN85Vsu+PGNvbGdyb 9LiPqyry0ntn5cmhCt2 IjMwJSIgdmFsaWduPSJ 1n6YmEp32B29pMEosVZ RoPSIxNSUiIHZhbGlnb p7jwK4xXl4+PGNvbCB3 rEM2vS1gWSCbFxM4JWc cG045TnJhbYBuGezjr8 ohz2ixnVd8QvPjKRRld iNrvQptCTI8e1ErFq47 B56wLMddHTYsADKsQPY kUXZxzKrhfi8ltH8oKv 8+XK4iy0wdfl91vT00q HI+EVMfIHM9eJryVCxk HRVukB9vWXiaWiY3YNS vJaZycB03sMEqEXejOk 8dbOrnuAusCL9mHRHoe kncl757YxOwl4bvGBXg oBCdUEnyEAG7B84kn3E 3GXQxEDQpCPC5hXW3vY 1hbGlnbjogbGVmdDsgd hVwdMefFRnbOJziZ866 IHRvcDsnPlBhdGllbnQ uXkYqFPo9T0FcTfa7NO WmrBkwDD6zmVMrHPcxK c3qgZtacDkrWO8rCGPw ujqgh953YlOqc0xuCUW jfLZgEFhqXLG0Z41em5 U6VKFaWPTrUYE0iWO2c K3mwKqxsekkvMKjyXbz qqMogVptPOofOCnpE63 6IHRvcDsnPkJpcnRoIE FzuIS0NA59LT94mHZko 2M8jUH4I6NiYEJxunqc lnxkaYR2GTXxDFXonU4 2Zu4fkQnbZd9iNWMpLM C1EHVwiLJfW8RpqK0wZ rVhQPYyQNJvG5ZglMLa KHwoO675HPvzQfQ6VTC agqBgL3JtQWCfbJmbLv L3r7V9Dy8PQ2E5ZJ19P Y14tYOcy8J1lQQ5D3Gf UAQkswsfhzbryEX4MED dLBDgcH98Yp3tbAwfXt 1hPOEdXZE3NAEodRFyT 4JrgZ8fPrObOREuTJMx G5YxjOJwEAloF487YYi mElA7JXIlxzOvL8AxCR IbmKhkYvF2w6O3Ku0LA Yl6LC36VN05vQGqt2Q3 fAT6N7WyEZIvlrkexzp ohDY2YLMmPTCsrC70Uw 1xnChxAu7tSMTdISP7I OPjuTToB3ZsxJ2wIwNi QUIjPJUzI4UgoURySEn oZ844KDbtUyV9SSEfnj OvV4MpQTJfmBkbUrA1r 3F6Kj6KOESzNE68XKZ5 zJN5BP30UA61L5PlMvr vdGFibGU+PHRhYmxlIH dpZHRoPScxMDAlJyBzd LurQQ9eJb3lINTxSJFz sLgadFGkTyGrg3maQSU tCIdiAX5jfPbrM6GqjE Y0UBQdu6o2Om26F56rY 3JvdXA+JOEyvGF1kVY9 kQ2wKuFrKmZ8EYjnP05 9YcKzbPMgWiwfi6ysb4 dnoBp6EtF0AQDlbpHhb MucNRI5y0RdGk65H85b IHdpZHRoPSIxNSUiIHZ haDtybs5unA3rYc2+PG MpwVR9pJJ5gN1oZxSwV iH8SJvzJ164GbNscCKn Xafng3apj3mxzTu3JgR yWRRvmtVuqViyJMT7e4 VjMl43D6GgrOmib0FnT gq7no26lHWlm3U6pYP2 J9LlUOJmjzvlrNOauKn iFQ0mXXLujptoJXAmeN 0uJHVlB7z7YcAkWsT1X NuiB0NytpA8POGmsHVk ORukJCS8F05jj9U7ERG jHAJtGUM2cNH5nE6wtT lnbjogbGVmdDsgdmVyd GdzEOjfJUjvI743QWLf aAbyGCVxnO8rXZYgfPJ ojDicTZ6jQSMtfqxmQj jVLM8ZSEWFCnacPFfZQ LCYMOYHVQ42UQ24pGXq s1R0nGN1I6MiOFUeemb svrpxxGH8NMSiJQCseJ 63tLCfNTtcEs1qu4H8b 832BZEnCPOkmM53Ac9k aWjuKNOlcTYAnE5jufh vu9ouncuiMsBhYJFkWO c5SRx8WIIzlDvrXnFuV UX4ZjU3PBS7tUYekB9c rRtjvwaytT8kTwe+MTI dHSmcNHf2QIudfEX+PH XoYFY6dDsoETgzTHOcq V4eFQEqM0n1ZoSaFcR4 GMrhC4TbUNYxncpdHl8 2fT4zKtJyUsY3IDbbV6 SbupK8ACVgtGLeQRkzW BT7M73pl6R9UGWzKXTy DFE1hTC5eC5uzIhxlde gbGVmdDsgdmVydGljYW rkEJnbQ902XUYjbJdjT tC8EOlnWZMnTG80HB08 tNQzy1C5uVA9B2JiFSE rjbrouitwtQZ5KGWaNO JxpJ72oYAcPBbfSw0ps 9H1l206ETXqDMWfbO04 Ya8kcJorKJYjfYRFdR7 hmeqoi2zdhswjWgCwWD PqJRc7YZf6PYGfzRswH cStZZR5SuI6LEV8oDBo yQ3mlBxgdwsrqB7vAww +OtQtWMnkZV91MY25rR Fur6G1qWJ9O5NcYZDpw welajbxbPA0MIRiOKMx sK67xQCaCCdnJk4my4H 7i527MSQeQIWkqU20No 8cjItmLYJluSXXlV0kd gwzy1mhmhevSuAuGFMd MQo7TSr4LELjzAsoHhD fEPN6UrP4KWG0uVVpxU 9xdWzvgorjlF1mLyk+U sNytNHiaU9lDU38DF10 G4ReTlmnnSFvpLK+PHR hYmxlIHdpZHRoPScxMD FnYzVyfVgrDL2pTe1hW GVyLWNvbGxhcHNlOiBj e2uyJREbEZlkAN1vkWf iY0UijVI7EJIbd8r2Rb 38I19yN8ZsjFP+PGNvb DE9lIT2cC4fCkPzAnG1 BOcoE680JvLqvCJoIqu ek9han8susFo7SuJvBQ UkhwOpaNdoKKA1n8LkX j94S89jWWflGDCpUBGm UXVaZGRpbDtonp9ipK1 wIi8+NATbdBW4wLC1mD 2zSrXvTnT6OHywK213W aHtlNBaCalyJ21lO2Vq dXA+BTIkVbw5REBqwTw eBE0upRRqBOasBi7uNG R7OuJzAtQuDYkoH5RxP UXtevngfuwddBC2DKUr HHXnzT54Tm0qnJdbYb9 hGMKxGUR7GMVtqBBaW8 EeqN3fHqGoTVCzFRCdY 1CpnGVyBGonM098NCob KpS9LAJhwjXzB8WrBHF rfFpmHvO1q2A5Pr9TfC nshDNsBT5aGuPvKSz7A 4VbZnf3SCXwpFfkJJ8a bKXeYMekLe7sdYdpaGc rIP9rUACgennos625Hs Yto7ujJGVlrDOtRRyjB SD9H36mk3V7UZMuHJLy PNP7pFK3xN6cvZswooi gbGVmdDsgdmVydGljYW enBQzaM699PACapEznC cGNAyq5F4JwPse7AEUa bYfzRV2muDNhNNffTh3 yaOhsxGcjZK3gFFCykj jba887TdAkb8lqEIQof BKiJBghEEX8W99kn4T1 WQJtCBMoVNL7vPS5uM8 hbGlnbjogbGVmdDsgdm TuhCheSQraKQmzO336M RZcsYywWn5JIot6Z3Jg Tju3XHLhfYwpPF9wpFJ uAPgaNr2gyRltrBykSY 5aIJXzapfov674IfGqd 5wkGWFhtIMsPWsmSJF9 D73wo1Y7GTUsTCMlNZR 1qSB2yY2vjGbykxnvaZ VmdDsgdmVydGljYWwtY ZpqB552CNWeoKnmGkZa eWVyOjwvdGQ+MN03lm6 7D6EiPhyaDul4OQXhNE H1lDZ7bE4zEHRmRGuna 2C8bOU4J6UfcuSzsc6h b2xs (more content not included)... Normal [facility] Priority Order-Juan 2021 Priority Order-STAT Comment Invalid Interpretation Code [facility] Comment on above: Result Comment: Rece ived Performed at: [facility] [address] [facility], [place] [id number] [facility] Mina Jones Performed By: #### S ARS-CoV-2, GEORGE, [id number] #### [facility] [address] [place] [address] SARS-CoV-2, NAAon 05-25-2021 SARS-CoV-2 (COVID-19) RNA GEORGE+probe Ql (Resp) Not detected Invalid Interpretation Code Not Detected [facility] Comment on above: Result Comment: This nucleic acid amplification test was developed and its performance characteristics determined by [employer]. Nucleic acid amplification tests include RT-PCR and [...] detected) result in this assay. Performed at: [facility] [address], [place] [id number] PhD Shalom Gonzalez Performed By: #### S ARS-CoV-2, GEORGE, [id number] #### [facility] [address] [place] [address] Family Medicine Phone Visit - Telehealthon 05-22-2021 [...] 6 months ago. Has been using DayQuil [id number] with moderate improvement. Review of Systems Fatigue: [...] only communication with the patient located at [address] [place] [phone], with no one else. If it is [...] verbalized understanding Ordered: Rapid COVID Antigen ([facility] [place]) Telephone Est 5 to 10 minutes [id number] 2. Fatigue (R53.83: Other fatigue) see above plan, rule out covid. Ordered: Rapid COVID Antigen ([facility] [facility] [place] Telephone Est 5 to 10 minutes [id number] 3. BMI 27.0-27.9,adult (Z68.27: Body mass index [...] 1035F Telephone Est 5 to 10 minutes [id number] Follow-up With When Contact Information Irma Burt [...] Methamphetamines, Pre (more content not included)... Normal [facility] Comment on above: Result Comment: Elec [...] Reviewed: 03/20/2018 Else[employer] Patient Education ? 2019 [employer] [facility] Physician Orderon 04-27-2021 Physician Order [id number] 8#1.00CD:127 [facility] Coding Summary.on 11-04-2020 Coding Summary. CD:[id number] DDu2rFs+PGhlYWQ+PE1 VCEJrI02owRQqeQ6TJ3 fODC0YHQHVCLVKTO8ZU V2evWQ0JTjeA3WmhyUi SejsaTQeID87LYf8XCY 1mYkgOAhswR9dtEPyR8 y3XpGjZN49yJ73DNihL ZHkObB5CgAwljbxiVOx A2fyYsTnqRAzAxg+PHR hYmxlIHdpZHRoPScxMD MpCfJhsAjwSK4iPf6zY GVyLWNvbGxhcHNlOiBj v7gtZEFfNItiMI6jmQh uZ6XjqGX4DXKyh6x4Ii 48dHI+QITgSAF5nWmaN Gehd026VtCsr9ffOZH3 fAFcUAajUYQ7V07mq4N 1LICnQNFsMPX6wDI8dG 1urIricpxiP7AxhTEnC uX7RMX0wYNpnB0soWtd epadfK8ePij+Q82LZE0 GUGFRTQ3ARdk1H4IuQh wvdHI+HY97ULMxWO08m UOwyJRai9vxnRo5XlCg VWLrLQL1nWufWOneq0F hTCAiJ64gkMXpg8C2AU MkqHrkmWDpMfTbtCM4c N2iWOxoenncs3sekdld Klepc4tpdi04vF48O12 jHNjjVLFkFJJ4DQHbYR PtsZhsve1knX0kOg9+I Hdep7zzp1ilfQu8IxCo YWPpuwHadGhrRLG0b6F cDb71V2GkyRuyw5KcVx o0nj73cIGoq3W3tJT9C EmjXNWjcF0mKMniNjA4 XKZdFwXluO53rQSeKPi sUx1pgKntuEorDX6vWI PcykckLNQhcL6lXAKaz FKiyFqlWM0zMUXgxvfa y680OvDkERK8ODTsgFF bQ0OhwW6wOhKkCVGqEL AbK2YakBZkRKbmF002J QhoCbX2RQAsugIuD8Hv MCNjiMubHqB1d7K8Ip0 Ns5SsikzpTKW1RNlsCG P4NoD7PtFyYyS5G2MsN gu1EMGbsCemYK7aR6Zc OBZsdofccsoaySA2OIY xMQCjrV74bDImVLnqUd 3oh1T9v944RBKkERDyl N93Po4nvHjzRTDhcCUJ bX0aoixrt2sgatvjGpG eYXZxRYn4LWq6LWJeuR exRaQaUDZ5XoB5DHM9l YMcsS2hdHemskkxzQ9l Oyc+I13blS9cLLF5IDG 4pozxXPCselLsJW03JW 13A3WmPwjzdPXfnJK+P JVyxhNdgRecKP4nEtFl m8hux9KwZSuaR3BxIGJ cYNusSak6DUNjNOE0sK E0vZ3lGAChNXynv2U5t TW5H0YfcnIzcs8qx4xx FPUzNKlyX79llUYel8V 2SXEqySK5LSVixCsvWf IbdZ60Akv+PGNvbGdyb 7WpXzflr0kji3jnoQh8 IjMwJSIgdmFsaWduPSJ 0j1ItCc64H04sPPenSE RoPSIxNSUiIHZhbGlnb r4bdH0oSb9+PGNvbCB3 tBK2iN9hAVZlAwH3DWr xX030GwBuaJJrPclsj5 qbu0ayuZv7UhPjMGKpi dLjgEraERL5o3IuDp29 Z67mSXfmBPZnIAWgVMD zWHPlaXyzcy1nrW2bGw 8+BA7pu6eysa04nD51l HI+TNTjZVL3jJhrHKoe RZHhtL2uFTtbTdF7NRP cHgLuyJ76fDApGLopGs 7qhOlmuOlhQJ3oUVFmb qlcm231EvAbz4ffRSVt kEIvJQxoNSN2L30ae0I 4JANvWGKfPBN1yQI7cK 1hbGlnbjogbGVmdDsgd gElzQagJYqrKIjiE931 IHRvcDsnPlBhdGllbnQ pAlNvRZz3L3NkMzd0MC UkoEbtPE0gfRKyCUvhE e5viAccsVzuNL9jYSEt emdic361EhHpz9qrQTQ vnVPtRHhiJLR8T85ll0 B7ZEGuLBHeFFH0nRY7o T3elImmhaqshIFflWhw ndVseQnlEUykQQdxQ68 6IHRvcDsnPkJpcnRoIE FvfHC7ED44WQ61jUHnf 9N3iAF1A3PsABZyrjpv bmgeeXC5LQXcUABmmK8 2Uj7lbRydJx8jQMIoLX Q1WDAlbLUxM0BsbX0rO rBuOBNvKHBqG9UmaNGn HVrxW643PUtnDcO5CNO uywOhK7YnGHAidSyoQj Q8i6B4Xq0FG1S7QG38X D91aTZcx2Z9kDI3Y3Ms PMLgjgwjbydtcPJ7QJU cNHImgS00Vd0xjNcsIk 6aSFHdXHB4YJFgzPAzL 4MqfP8uXqVxXTIfFBAp A0ZdaVFcTXlxN299KNc kJiE6ILBtylClE0AgEF TgsToxArT7n7F1Vs7PR Oe3PX75BH06dNKud8B0 pJN1H8QhNXAprttoslc fcXZ1AXSiDTXchO88Ye 8ykUteTa0jANSxZDQ6W HDnxQHcR1NauM9oIpGm OZFoNEBsD0RmrCNqYDx vG854LEylQkH4SUUfil OqV8OkEMFfnRchPwW6u 6V7So5JURRpVA80FSH4 hLQ7QA82VF87Q8RoPki vdGFibGU+PHRhYmxlIH dpZHRoPScxMDAlJyBzd BaxPU8bKd1uMSAvKCSu aVpwgNMoBiHig3ldSXU uTBxmOK2emRihR5FkgZ L9HQNuf6k5Ka15L92zC 3JvdXA+QUSsxDY9uNI0 kJ0nGbYoOaQ3LDaaO62 2WqTuaNNhMexrm7vaj1 wzxEc4UrV8FWUidsYeo DabNVJ6l7FeTy06W72i IHdpZHRoPSIxNSUiIHZ acZcvbj5zeS0bLe5+PG MpmHK5xQW7hB2yHkTqS fC8CXvcI258UhEcrMDx Cryhi8txz0gzkIz6TnT bGNJejbLguTzkWJN1s5 RdUe29A9DuhMfzv4PlU dr2ir96zMMdo5M0eLO2 X7ZcPPNfmqjrvGQjzFr hVP4jDOExeywuPUSzvG 7iOQLmU4c6VwAwCqP2R HvaT7OrmwJ2ADQscTPd ITpkWEL6M88mi1T5OWO kPNUlWCM4fJC7tJ5ghY lnbjogbGVmdDsgdmVyd LekYHloPXwfN520ZPNg gYbqUXYknS6aVAHvuRR ixPbwRP5vJNDskizbFy jUBO7QEXJYYlmgRHwBY QFKXBTPRP77KM26aPPk l2Q0zBV2V9AeQDEwrpt zwowxoJI8XZWuSMXcuK 28cSAoUPysLl5fg3Y5t 872IKKxGDKgrA13Ki1j aZusSOEfiETAtT2iqzp eu6qjdquwByPxEDLeAQ o5PPd7XGEtsNboOiYgM IE4VpS8OHN5pHMayQ0n qZzrocfmgH5mNqf+MTI tAYfvSNo5MRibhOK+PH ViDRX3tHeaPXwgWSOsk S4lWKKmU4v4JvIaIlA4 BEzlW1YqDXHegvpyXg9 3tS4uMyRmYeS2YEsbM4 LwgrL3XKXdsXOkNYrbM NR4F99zz0N8BWDsZROu CDO3gAR5lW2gmYfabia gbGVmdDsgdmVydGljYW yxEIsiL919OYTjnRelZ vK5NWcfJVJhCH23BO14 vHXdc1N4uYL9X3WtMBQ ozwegryaibDU5UPEgDC MufL09nVCwBHjhHs5hu 3S5h811HJFiNOMwdB60 Ia8bdCtaNHDdyFOSiM2 smdmxe1vddsowOlQeMP QdDIk3QHm0LTUieDylZ nGdMJX4HtQ2TPX7kSCh aN3qxOhkygdigF5kLmq +MdZtPZozAQ03GF83aT Eot2P5uNE0K9AbHUNgb bheugybnRF5XEFyRNNh dZ02hHQtLWasTr1ih3P 5t666YCIeGGNuqT01Ky 1smLmfEBUhoDKCvB9vo ksmg6lcoajrTnNoJHMd VCn5IQa8SHEktWfiBmM cKZG4RlN3IVY3dCAriQ 0kmPtaodgeaO7mSww+T 1T8iPL1eKJmsOzffHE+ JK28nl98L6YnDcibRsm 7YRDvZED4vYK4dM8tFK MhOXmzc8W2qRL2B8Ism rIteo1tr0ocCIQiERkz W12kcSWbq7J6CGOisYM 5OSVjtAlmYmYxpP41Xf c+CSMboGxyf4YzZfgmz 0kbh3meyFy8GoWwVDLl rsSdiGmuNYJ3p6VtZd3 1E45rWSgpSFArASOdOH YjLNJzpLykfn8bnD7aK i8+MJOucBZ6gSX2hW0l WuRpPfJ9QOiyJ192QwA cyPZfMlpyh1lit3xplU w1KkIvKWQtkbQlaTcqJ HV3c2VcAo52Z0EqcIns l7MqHmt2dj13wVVae9Y 3lAD7F7QuGZKbmpsumH XvcDirVW6zXXXxijyqW FZzeB8oDJPnK9z1QuAd GpZ3ARokS9GukqQ4HUU zhRJxQKOoeYGJgH1vcc xjo9wpcganBeVuFMEtT Dy5XPo6ONYvjCarVjYl XJK2QdQ8BBD7wELwtP0 mnJmxivaxhM7hNyi+UG s6l6bnbVJePY7foYE7F X40IW85gAHvd2T1yEK8 R0VwFIAybueefcgguRJ 7JNOvNUDggM98Ao1ktH lyKq4qHPEwIDY9HSGik BDdN7BzaA4hLaJuQOAs HQQgW9LvjCDsYPliL70 0AAqkRfU0HPNazoWgF9 FmHCYquDjhJkN5e9F3Q v0PIT33FF82QV93hMFi h3W4lII2A4EmYOKaisp lvpwfuPB6LZNwLTRrmD 84Mf5mzQenFw9jILSwB KV6BJKfxGLuT0EiwM4e VlRhEIZzCJXdF0EzwKD fSAswB750QVcwVxF4TF SedqEiU6IuQKYquHzzG lX9t9X9Fs6MIx85JE02 BD16uGOkj8S6xFI2F2K gMKHoslbacqfrvCO7EY JfMCTiwW84Kn1cnRraT u1vRRAjNDS8KXGumPOv H9BtyG3zMdZaYFIdTPA hL7WqrJOjDZtnQ697LX flIxT2AAPpynQjN5YmI TJblJgvMuS3y6A6Ia5A NMrszbl6I6OlNybieYD +SD68ZLOcIL04lIOyrQ Rkf5cuuOv2NsWdUCOsA FV4kYfxKPjid4MiOJTe Y29s (more content not included)... Normal [facility] CT Chest w/ Contraston 10-29 CT [...] in ml's: 100 Normal [facility] Coding Summary.on 10-28-2020 Coding Summary. CD:[id number] UCj7yFh+PGhlYWQ+PE1 FXINjY50ceYYdwF9BB0 kGFI4UEIKDJMEFOZ5XL E3rcVM2UFdpE4FqpbQo JiupmIObDT15NCq9CSX 7fUiuNGavrY5jaZVcX4 y0QbGaFZ79lU52JGpiS MTxRhW3MgJougzyeNPi K0idXxQzsVFlDld+PHR hYmxlIHdpZHRoPScxMD FvDdViqVkxPQ4oCr0tB GVyLWNvbGxhcHNlOiBj z9rdDDBlCVxtFD2fcTg fR1WsvSZ4EHBst1x7Ta 48dHI+XXNiGTK1xWpyR Zmou708PjZjr5yvRAK6 nRPuZQxsQSH0M52rx2L 8LHWcXQWmIOH9nNC4rJ 8hzOscsncqK1PpzWPoO hQ9WHI9jSXbiV8pnNav vplwyW4pZgv+U50GXW3 QIUUYKT9OIov4K1WsIs wvdHI+ZB11RDLeIM69x IXzhBCee1aliYa8HsXd GPJxWQF4bRshPKjyj3D yFAUmI23jqPUyd2Y4KC VqfNnffCUcLlFujIO8i M0yGYhyakkpd3qwfdad Cklfr6gggr79dE86N04 iZUbdIESnRTH6EYOqVN SlaEkmxx1hrZ3zJb1+I Acvj2caf6kltGh5LyIk DELqtpKmvKuiPTY0h6V sZe11W7NlwKxeu8GnYt u8lj08xZSur1E2dGY4R TprPEZzjK0bVAzmYfP5 AQEsHeBxyF22hMBwQJb fZv2hsFxkkZogON6gPI KmgztfGPVaiV5yCJHcp OAcrBjrJS6zGAWcdlhr y173GpQvWWL4LLMgaPV pR8RneE4wVxMbQQQpLF NqX2YrjHPhRSrcJ955T TdgBuD8QDTnpxKjZ3Ox SSJjdSxcDpP4e3J0Eu6 Vu6EsceceYZZ5IAwlNQ F7GsNfMkLkSxC4Q4HgH ne1VUHzvHrkBF7cK1Xg UQGixrovxrzweBP9CVR nPOAjtA63tSKiVApxRh 6mv0W1f703QVUsIRWwy J68Kc2zxAwpFWWwqOQW eN6pkmdhk9xfxupzKzN rEIEyEVv5AOm6QMWrfX ojNhRuJPV5NjU7XLD9v ELigD3sqHpnayoaaE8m Oyc+L32iiN1qHSM6OEN 5sjtfUPJjheKsVJ47WC 66C3KnShnwzYNbdDA+P ELvexUijYnwEI0jBgWs u7ysn1WtBHhbA4UmMWJ nHDopRgh1VIBhGKM1nT P5zA9bXKFeHCohq1H7x YU3S5EyqjHtsu5hu3mt ZYKpRJafT17rtZUzv7F 4BIHxeJK1ADUwhPmrZg BecF96Qrd+PGNvbGdyb 1SgGnsil8vwd8tcfUu7 IjMwJSIgdmFsaWduPSJ 0c7ZfXc60P44hYMgiBU RoPSIxNSUiIHZhbGlnb j0ncU9oTu2+PGNvbCB3 bJC7dB9eMDKnMsR6PDi eQ216UyTfcZIjFvvuc5 nte4aghUm0DgJbEPFbt rYltDjjORA8z9PoOi80 D11rFQmiHTRdVDXjMFQ pXSWmhVukoc8bmQ9mJk 8+JA2ea4bgyg84bI26p HI+FMVdNLD1bLeaCJtb WPMobW9cKIguGuT1XRX jShTcgD58mJMyKRufPk 6vmAkmgFopJZ1wZSVpu jlcs024IyYpf6iqILKw nAKxZNbbMSO7J80aq6Z 1XEYqCKUlIOT0jXH9xZ 1hbGlnbjogbGVmdDsgd oKswQuwMIvuOYpvL818 IHRvcDsnPlBhdGllbnQ oSxKuCKf1G1TrMnr7JZ CicByoYA4nxDKeKKtvC v3scYtjkLtgKL7mRNFw zomyv429VjYlc9pkCWV yvDXlOFpxMJD7F49sp7 R9PDOcMKGiGWB1pJI3w L4txUhleizpeNPvoGrp ncMshIobLBchFAwmJ26 6IHRvcDsnPkJpcnRoIE MojST5AS65EH01cVOpu 4C5fAE1X8GeYOObjlhk oboopEK2XYCoSTNzdN0 4Pm2unMhtWw4kCSSpJD Q2BOYiiMQtS3UnqO0xW oRyRAZgAGXbF6VdwDFb XIfrX890NNmhXlC1OCJ tdxSxU8GmIOWbuGacYi F3h2U6Yn0VL5S1HQ89G H29zIQkj6H4xOS5L1Zt MGTiwndnywrjmTY6VXB fVGFxaU95Fp1dmZpqRt 9dIIOrNVO8KFBrpQMuP 0YciD9dXjZsJDJmNVZe Z8MgeVObLTpyB899KRw gOwM3EGTtajUtR9CoQS MncUqmLgI0s2U4Nf8AM Xm9RH40ER38uZWvq0W3 iPS4M2EsBCOfmopfnlh zyBN1AAOzQGSlhS76Ht 9mcZkiGa3bHLFgELI6Y EWvsNFbV6HeaS0zHhFj ONQkQUSeO1PwtRWxOVt gC358KPckUyI8SLBudc IsR2OnIOQumBfpLiA0o 8B4Eb5SLOPbNX92HLJ6 cZT6ZL37RH64W7LxOvu vdGFibGU+PHRhYmxlIH dpZHRoPScxMDAlJyBzd LqaMK6lFw0zITAoGJOp eRnzuTCiXxUqw3gnVRW hCYirSD7nyFsrI0NkdI G6WOUtl3k6Fc88L00jN 3JvdXA+GDNjsRK6hHQ8 uB0eDeHqBwP6OXouV32 2YzWrlVOcFjpjp8wjo1 vtnGm1UoH6DGTzgsOem SskZEW0k9HjYj16L08i IHdpZHRoPSIxNSUiIHZ chFmcnx8ijK1eFd7+PG MclOC7mZL5nB0iLyZiN wV6YFmqX417FhYliOJs Wfmlx7pnu7bcpNt0OrO uUBUmxvWtmSgtIXT7y1 InHw19E8EdfAjpi0YgN rk5zc14mDZsa0X5qIW6 P9BjLTFgslrdlYIppDu cCZ0cEXKzgjevLQAuxR 4fRKTnY5u0QtPaUkG5P WteF3AxauQ1QAXlkGHd UIabWOL9I64bx3Q2EOK gVJEaYPF9dDN0bT7etI lnbjogbGVmdDsgdmVyd AsfUIlfLCxeZ540UKIg zPfeQNXluL7eAROetUR elAwfXC7eWHCgeqehHl mLNH9QWKEWFvtnRFqYV NXCZLIHSR24DV97zTZv x7O3rYU2M0NiWXPzjsg skfynoBT8BYWmUFXbzD 94hUGgABsnSt9ki2T3j 406ZYGvZFNvxP01Og2v uAvxVGExsZOCwJ2bmyg qw2gjvsxgFuLhABNjVY m1ORz6QFMmuFwiCbAyP AO5VlZ9WON2xXIarG7w zFjeedkvtP1kOfe+MTI rWYnlUUz3UDsbbLI+PH JaCHE5qNpzEAupSHWsf J2kLDRdX0m3MiPhQzZ9 TCjpE4GbNOPecmztJb7 7oB5eNvXkAtJ3BDwlC7 OdmxS0HLTugZVpCExkH TA6S11pi5E6INVpRRFp QVO1qFN0cD5juRaqeod gbGVmdDsgdmVydGljYW kbTIovA894LWTgfGxuT aY6VIvpUJVbFD50EY34 uQRxq9E8jIU4U0UkXSL fkjniabtgzCU7PJIyUA KhsR99dFXhXPqyAa0pq 4P4t560ZDHnOQKzhN27 Mn8usHwcEGFrtJVZsG8 iygrsq3ddnsanGiAuLW XeLJj4CXt8JSQuvUjxD cDiZRP3XrR4VCW8wRLw dQ2tfOqjygkbyV0kCwa +WmAbUFqiXO35LO01mX Igt8H7sDL0G4BjZBSlz ckrvsxteHO0BBCbDEKd cB41vRMmAItgUy1hj9T 4e203MSNpFCWhhV99Px 6axCalPFXzfQMBmF2xj fumh2fqbmnzUcFrPYAs UNp1ZWt2PDDfnGodLmS mBDA1HaC6SIJ3mIHttA 2vwJynnmyjaO5pIal+T 1K9nVI6tACoxWftiZM+ JR33gj44H4OlNxtgImt 9PZKzHMU8jHG8jW0dSA MlAEqid7V1iCM5O5Gah oJtlb3pk0pnEZIqYHiq G80vcWWcx2C4XHCcaFC 8DOTyjSraDqDxuV95Ej c+QPYguUitz4WyYqmrg 2mbn1rjjSd6RwVgZBCj fsJymHdeOKX7r8KlQr2 2V13tWHxuJDJsOESoIF EhHURsrYoiyz8fvD5qG i8+VPBmcCV7cJZ4vT0c EpYjClD2XSshR794NoA smULsGnasz8nzs9jpsZ t0QeMyFIQbuuRlqNxjC CK4r9DyFe53V1XneFty m4RcLnw3ko64pSNfd3I 0jAZ9B1LvJEGykkxceP PfuTxsCC6bDQOlirucE IVfxP6sTFHoM0g3FtTy ViH5KPsbG0DjxaF2EMZ cuORvXTUbnBKJlQ6wzm uzh1elldowEnCzCRHuY Kb0MRe0CKGwbWjqQsFe XOK3AqS8WFJ9oWEdiP8 hjGmvewsbnE7fXxb+UG y1r7btbZEkVU1ntWB2L Z82SQ09eOFsu4U8gIR1 H2IrERPtvilkwadkwTL 8SQLbORBhdR27Gd0ayX nfQl0dBPEyOAJ0PJFlz RCzE7ZupS2oGrCpPKJv XKMrN6XbqTKzFWpqU83 9ULhtRiU0IJXdscKuL5 AfEKDidDmdKgZ3d8R3P z2OVG96LA44CG76dCWm v1R3eRV5L5KyHLJogbc lxhollAO4TQPqBPFzeE 64Sl2coLwmTs4oTYIlQ HI1GBYzxZBeR6BvcC2f TfKjXMLjMDVnL4RdrFE lUXsbC594SHnpYuX0LZ VqykQuC4OjLKDlcOlyJ pX0f0Y4Xo2PDy47IL67 QB33lUNnt3R5lWP9T8G qXBQoapldnekowAD1CA MsWJBliG52Qz7ppWupK g0bCGEgIHY2YBBsjOWz N4XnbX3xUmRnBYMnBVX tS9NhtVAbNEilH879LL orFcX7YXVczgJsK9GdO WOyiIpcTfN8p1Y5Ua0H UGesokr7N5QqEctqlJG +WJ67SGLjLT87qUXxvT Hfe5obrAw8GeXvNLVvC CP7aKkwAIkvx7MuVEGd Y29s (more content not included)... Normal [facility] Consent for Treatmenton Consent for Treatment [id number] 44#[id number]:127 [facility] Physician Orderon 10-21-2020 Physician Order [id number] B8#1.00CD:127 [facility] Consent for Treatmenton Consent for Treatment [id number] B4#1.00CD:127 Normal [facility] Physician Orderon 10-19-2020 Physician Order [id number]#1.00CD:127 Normal [facility] XR Chest 2 Viewson XR [...] M.D. Transcribed by: SHAYNA Technologist: BECKI Corona [facility] Vital Signs Date Time Vital Sign Value Performing Clinician Facility 07-26-2023 11:27-0500 Body height 170.2 cm Kaitlyn Jasso MD Work Phone: [employer] 06-12-2023 13:00-0500 Body height 170.18 cm Shun Hill Other [employer] Other 06-12-2023 13:00-0500 Body mass index (BMI) [Ratio] 35.24 kg/m2 Shun Haleormack Other [employer] [facility] [employer] Other 06-12-2023 13:00-0500 Body weight 102.06 kg Shun Hill Other [facility] [employer] Other 03-15-2023 12:29-0400 Diastolic blood pressure 89 mm[Hg] DO Irma Burt Work Phone: [facility] 03-15-2023 12:29-0400 Heart rate 70 /min DO Irma Burt Work Phone: [facility] 03-15-2023 12:29-0400 Respiratory rate 16 /min DO Irma Burt Work Phone: [facility] 03-15-2023 12:29-0400 SaO2% (BldA) [Mass fraction] 100 % DO Irma Burt Work Phone: [facility] 03-15-2023 12:29-0400 Systolic blood pressure 132 mm[Hg] DO Irma Burt Work Phone: [facility] 03-15-2023 08:54-0400 Body height 170.18 cm DO Irma Burt Work Phone: [facility] 03-15-2023 08:54-0400 Body weight 90.71 kg DO Irma Burt Work Phone: [facility] 02-08-2023 14:45-0400 Body height 170.18 cm Shun Hill Other [employer] Other 02-08-2023 14:45-0400 Body mass index (BMI) [Ratio] 34.92 kg/m2 Shun Hill Other [employer] Other 02-08-2023 14:45-0400 Body weight 101.15 kg Shun Hill Other [employer] Other 02-08-2023 14:45-0400 Diastolic blood pressure 80 mm[Hg] Shun Hill Other [employer] Other 02-08-2023 14:45-0400 Systolic blood pressure 131 mm[Hg] Shun Hill Other [employer] Other 01-16-2023 10:35-0400 Body height 170.18 cm Aydee Nadiya Other [employer] Other 01-16-2023 10:35-0400 Body mass index (BMI) [Ratio] 35.2 kg/m2 Aydee Nadiya Other [employer] Other 01-16-2023 10:35-0400 Body temperature 98.3 [degF] Aydee Nadiya Other [employer] Other 01-16-2023 10:35-0400 Body weight 101.97 kg Aydee Nadiya Other [employer] Other 01-16-2023 10:35-0400 Diastolic blood pressure 66 mm[Hg] Aydee Nadiya Other [facility] Other 01-16-2023 10:35-0400 Respiratory rate 18 /min Aydee Nadiya Other [facility] Other 01-16-2023 10:35-0400 SaO2% (BldA) [Mass fraction] 98 % Aydee Nadiya Other [facility] Other 01-16-2023 10:35-0400 Systolic blood pressure 105 mm[Hg] Aydee Nadiya Other [facility] Other 09-23-2022 10:45-0400 Body height 170.18 cm Aydee Nadiya Other [facility] Other 09-23-2022 10:45-0400 Body mass index (BMI) [Ratio] 35.13 kg/m2 Aydee Nadiya Other [facility] Other 09-23-2022 10:45-0400 Body temperature 99.2 [degF] Aydee Nadiya Other [facility] Other 09-23-2022 10:45-0400 Body weight 101.74 kg Aydee Nadiya Other [facility] Other 09-23-2022 10:45-0400 Diastolic blood pressure 80 mm[Hg] Aydee Nadiya Other [facility] Other 09-23-2022 10:45-0400 Respiratory rate 18 /min Aydee Nadiya Other [facility] Other 09-23-2022 10:45-0400 SaO2% (BldA) [Mass fraction] 98 % Aydee Nadiya Other [facility] Other 09-23-2022 10:45-0400 Systolic blood pressure 125 mm[Hg] Aydee Hearn Other [facility] Other 09-04-2022 11:20-0400 Body height 170.18 cm Aydee Hearn Other [facility] Other 09-04-2022 11:20-0400 Body mass index (BMI) [Ratio] 31.32 kg/m2 Aydee Hearn Other [facility] Other 09-04-2022 11:20-0400 Body temperature 97.8 [degF] Aydee Hearn Other [facility] Other 09-04-2022 11:20-0400 Body weight 90.72 kg Aydee Hearn Other [facility] Other 09-04-2022 11:20-0400 Respiratory rate 18 /min Aydee Hearn Other [facility] Other 09-04-2022 11:20-0400 SaO2% (BldA) [Mass fraction] 99 % Aydee Hearn Other [facility] Other Encounters Encounter Date Encounter Type Care [...] pital Start: 09-20-2023 End: 09-21-2023 ambulatory KAITLYN [facility] Start: 09-18-2023 End: 09-18-2023 ambulatory SAGAR LUKE Not Available Start: 09-17-2023 End: 09-17-2023 ambulatory SAGAR R LUKE [facility] Start: 09-17-2023 End: 09-17-2023 ambulatory KAITLYN [facility] Start: 08-31-2023 End: 09-04-2023 ambulatory FROYLAN Rascon RACHEL [facility] Start: 08-15-2023 End: 08-15-2023 ambulatory IRMA KD Not Available Start: 07-26-2023 Chart abstracting Kaitlyn Jasso MD Work Phone: [facility] Start: 07-18-2023 End: 07-18-2023 ambulatory SAGAR LUKE Not Available Start: 06-20-2023 End: 06-20-2023 ambulatory Shun Hill Other [facility] Other Start: 06-20-2023 Telephone encounter Shun infante [facility] Start: 06-19-2023 End: 06-19-2023 ambulatory SAGAR BUTLER Not Available Start: 06-12-2023 End: 06-12-2023 ambulatory Shun Hill Other [facility] Other Start: 06-12-2023 Office outpatient vi sit 15 minutes Shun Hill [facility] Start: 05-01-2023 End: 05-01-2023 ambulatory Shun Hill Facility:[facility] Start: 05-01-2023 End: 05-01-2023 ambulatory DO Irma D Burt Work Phone: [facility] Work Phone: Start: 05-01-2023 End: 05-01-2023 Patient encounter procedure DO Irma Burt Work Phone: [facility] Work Phone: Start: 04-10-2023 End: 04-10-2023 ambulatory Shun Haleormack Facility:[facility] Start: 04-10-2023 End: 04-10-2023 ambulatory DO Irma D Burt Work Phone: [facility] Work Phone: Start: 04-10-2023 End: 04-10-2023 Patient encounter procedure DO Irma Burt Work Phone: [facility] [place] Work Phone: Start: 04-06-2023 End: 04-06-2023 ambulatory Shun Hill Other [facility] Other Start: 04-06-2023 Telephone encounter Shun infante [facility] Start: 03-20-2023 End: 03-20-2023 ambulatory Shun Hill Other [facility] Other Start: 03-20-2023 Telephone encounter Shun Moncada naresh [facility] Start: 03-19-2023 End: 03-19-2023 ambulatory Shun Liz Other [facility] Other Start: 03-19-2023 Telephone encounter Shun Moncada naresh [facility] Start: 03-15-2023 End: 03-15-2023 ambulatory Shun Hill Facility:[facility] Start: 03-15-2023 End: 03-15-2023 Admission to same day surgery center DO Irma Burt Work Phone: [facility] Work Phone: Start: 03-15-2023 End: 03-15-2023 ambulatory DO Irma Landrum Burt Work Phone: [facility] Work Phone: Start: 02-26-2023 End: 02-26-2023 ambulatory Shun Liz Other [facility] Other Start: 02-26-2023 Telephone encounter Shun Moncada naresh [facility] Start: 02-08-2023 End: 02-08-2023 ambulatory Shun Liz Other [facility] Other Start: 02-08-2023 Office outpatient ne w 45 minutes Shun Hill [facility] Start: 01-16-2023 End: 01-16-2023 ambulatory Aydee Hearn Other [facility] Other Start: 01-16-2023 Office outpatient vi sit 15 minutes Aydee Nadiya [facility] Start: 09-23-2022 End: 09-23-2022 ambulatory Aydee Nadiya Other [facility] Other Start: 09-23-2022 Office outpatient vi sit 15 minutes Aydee Nadiya [facility] Start: 09-04-2022 End: 09-04-2022 ambulatory Aydee Hearn Other [facility] Other Start: 09-04-2022 Nursing evaluation o f patient and report Aydee Hearn [facility] Start: 07-12-2022 End: 07-12-2022 ambulatory Perlarolo Márquez Other [facility] Other Start: 07-12-2022 Office outpatient vi sit 5 minutes Perla Márquez [facility] Start: 07-07-2022 End: 07-07-2022 ambulatory Aydee Hearn Other [facility] Other Start: 07-07-2022 Encounter for other preprocedural examination Aydee Hearn [facility] Start: 07-07-2022 Nursing evaluation o f patient and report Aydee Hearn [facility] Start: 02-03-2022 End: 02-03-2022 ambulatory Maria Guadalupe Powers Other [facility] Other Start: 02-03-2022 Office outpatient vi sit [...] Td Vaccines (3 - Td or Tdap) [facility] Start: 09-17-2023 End: 09-17-2023 Patient encounter procedure 09/17/2023 8:45 AM EDT Office Visit [facility] [address] [place] [id number] Kaitlyn Jasso MD [address] [facility] [address] [place] [address] [facility] Start: 09-17-2023 End: 09-17-2023 Patient encounter procedure 09/17/2023 7:30 AM EDT Appointment [facility] [address] [place] [id number] [facility] Start: 05-01-2023 [facility] Start: 03-15-2023 [facility] Start: 01-19-2023 COVID-19 Vaccine ( season) COVID-19 Vaccine ( season) [facility] Start: 01-19-2023 Influenza vaccination Influenza Vacc ine [facility] Start: 12-30-2021 Adult BMI Screening Adult BMI Screen ing [facility] Start: 2006 Screening for malign ant neoplasm of cervix Pap Smear [facility] Start: 1997 Depression Screening Depression Scre ening [facility] Start: 1997 Tobacco Screening Tobacco Screening [facility] Immunizations Immunization Date Immunization Notes Care Provider Fa cility 02-03-2020 influenza virus vaccine, unspecified formulation Kaitlyn Jasso MD Work Phone: [facility] Payers Date Payer Category Payer Private Health Insurance [id number] 2023 Self-pay [id number] 2018 Private Health Insurance [employer] POS II [id number] 2018-Present [phone] [address] [place] [address] [id number] 1985 Unknown [id number] 2.16.840.1.402968.3.579.2 .1285 1985 Unknown [id number] 2.16.840.1.386829.3.579.2 .1285 1985 Unknown [id number] 2.16.840.1.193508.3.579.2 .1285 1985 Unknown [id number] 2.16.840.1.843722.3.579.2 .1285 1985 Unknown [id number] 2.16.840.1.740947.3.579.2 .1285 1985 Unknown [id number] 2.16.840.1.945019.3.579.2 .1285 1985 Unknown [id number] 2.16.840.1.636015.3.579.2 .1285 1985 Unknown [id number] 2.16.840.1.284963.3.579.2 .1285 1985 Unknown [id number] 2.16.840.1.715071.3.579.2 .1285 1985 Unknown [id number] 2.16.840.1.898346.3.579.2 .1285 1985 Unknown [id number] 2.16.840.1.935249.3.579.2 .1285 1985 Unknown [id number] 2.16.840.1.403419.3.579.2 .1285 1985 Unknown [id number] 2.16.840.1.951345.3.579.2 .1259 1985 Unknown [id number] 2.16.840.1.419627.3.579.2 .1258 1985 Unknown [id number] 2.16.840.1.632554.3.579.2 .9 1985 Unknown [id number] 2.16.840.1.893261.3.579.2 .1258 1985 Unknown [id number] 2.16.840.1.767531.3.579.2 .1258 1985 Unknown [id number] 2.16.840.1.831351.3.579.2 .1258 1985 Unknown [id number] 2.16.840.1.805720.3.579.2 .1258 1985 Unknown [id number] 2.16.840.1.245703.3.579.2 .1258 1985 Unknown [id number] 2.16.840.1.564372.3.579.2 .1258 1985 Unknown [id number] 2.16.840.1.280864.3.579.2 .1259 Medicaid [facility] [id number] Private Health Insurance [id number] Unknown [facility] [id number] Unknown [id number] 2.16840.1.848307.3.579.2 .531 Unknown [id number] 2.16840.1.100472.3.579.2 .531 Unknown [id number] 2.16840.1.800625.3.579.2 .531 Social History Date Type Detail Facility Start: 06-30-2020 End: 07-26-2023 Sex Assigned At [facility] [employer] Other Start: 03-15-2023 End: 03-15-2023 Tobacco smoking status NHIS Ex-smoker (finding) [facility] Start: 1985 Sex Assigned At Female [facility] Start: 11-17-2020 Tobacco smoking stat us NHIS Smokes tobacco daily [facility] History of tobacco use Tobacco U se Types Packs/Day Years Used Date Smoking Tobacco: Every Day Vaping/E-cigarettes Smokeless Tobacco: Never [facility] Start: 11-17-2020 Tobacco use and exposure Smokeless tobacco non-user [facility] Start: 07-26-2023 Alcohol intake Current drinke r of alcohol (finding) [facility] Start: 06-30-2020 End: 07-26-2023 History of Social function [facility] Childcare Unknown [facility] Start: 11-17-2020 Alcohol Comment social [facility] Start: 05-04-2023 [facility] Start: 1985 Sex Assigned At Not on file [facility] Goals Date Patient Goal Desired [...] Mayelin Pinto DO on 08/31/2023 11:23 AM [facility] 06-12-2023 Evaluation note Encounter Date Diagnosis Assessment Notes May, Diarrhea (ICD-10 - R19.7) Patient reports that she is about 7-8 weeks gestational Patient reports improvement on Creon with occasional flare Patient reports that she is taking a fiber supplement May, Fatty liver (ICD-10 - K76.0) Patient did have a FibroScan that indicates fatty liver and minimal scaring, this will be reviewed [facility] Other 11-17-2023 Evaluation note* Encounter Date Diagnosis Assessment Notes Treatment Notes Treatment Clinical Notes Mar, Exocrine pancreatic insufficiency (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) [facility] Other 10-31-2023 Evaluation note* Encounter Date Diagnosis Assessment Notes Treatment Notes Treatment Clinical Notes Feb, Alternating constipation and diarrhea (ICD-10 - R19.8) Feb, Fecal urgency (ICD-10 - R15.2) [facility] Other 10-30-2023 Evaluation note* Encounter Date Diagnosis Assessment Notes Treatment Notes Treatment Clinical Notes Feb, Alternating constipation and diarrhea (ICD-10 - R19.8) [facility] Encounter Date Diagnosis Assessment Notes Treatment Notes Treatment Clinical Notes Feb, Alternating constipation and diarrhea (ICD-10 - R19.8) [facility] Other 09-21-2023 Evaluation note* Encounter Date Diagnosis Assessment Notes Treatment Notes Treatment Clinical Notes Jan, Alternating constipation and diarrhea (ICD-10 - R19.8) WORSENING DIARRHEA AND CONSTIPATION OVER THE PAST YEAR. DOES HAVE SOME NOCTURNAL AWAKENINGS WITH THE DIARRHEA. CAN GO 4-5 DAYS WITH OUT A BOWEL MOVEMENT WHEN SHE IS CONSTIPATED. WILL ORDER IBS WORK UP WILL PROCEED WITH COLONOSCOPY [facility] Other 08-29-2023 Evaluation note* Encounter Date Diagnosis [...] no improvement in 2 to 3 days [facility] Other 2023 Evaluation note* Encounter Date Diagnosis [...] no improvement in 2 to 3 days [facility] Other 04-17-2023 Evaluation note* Encounter Date Diagnosis Assessment Notes Treatment Notes Treatment Clinical Notes Aug, Contact with and (suspected) exposure to other viral communicable diseases (ICD-10 - Z20.828) [facility] Other 02-22-2023 Evaluation note* Encounter Date Diagnosis Assessment Notes Treatment Notes Treatment Clinical Notes Jun, Contact with and (suspected) exposure to covid-19 (ICD-10 - Z20.822) [facility] Other 02-17-2023 Evaluation note* Encounter Date Diagnosis Assessment Notes Treatment Notes Treatment Clinical Notes Jun, Preoperative clearance (ICD-10 - Z01.818) [facility] Other 09-16-2022 Evaluation note* Encounter Date Diagnosis Assessment Notes Treatment Notes Treatment Clinical Notes Jan, Contact with and (suspected) exposure to covid-19 (ICD-10 - Z20.822) [facility] Other Evaluation note* Diagnosis Onset Date Resolution Status Diarrhea acute [facility] Work Phone: Evaluation noteNo InformationNort Momspot Other History general Narrative - Reported* Type Description Date Medical History ANXIETY AND DEPRESSION [facility] Other Hospital Discharge instructions Additional Instructions DISCHARGE [...] if you have any problems. -Office number [phone] Work Phone: InstructionsNot on filedocumented in this encounter Treasure Data SystemReason for visit NarrativeRED EQUINOX, ANTIGEN PROCEDURE TESTNoQuietly Other Reason for visit NarrativeNEEDSNEGATIVE, RAPID COVID TEST FOR PROCEDURENoQuietly Other Summary Purpose Family History No Family [...] section and content) DATE CREATED AUTHOR 08/24/2021 [facility] DATE CREATED AUTHOR AUTHOR'S ORGANIZ ATION 05/09/2023 [facility] DATE CREATED AUTHOR AUTHOR'S ORGANIZ ATION 09/22/2023 [facility] DATE CREATED AUTHOR AUTHOR'S ORGANIZ ATION 12/25/[address] [facility] DATE CREATED AUTHOR AUTHOR'S ORGANIZ ATION 12/27/2023 [facility] Special[facility] EPIC REASON FOR [...] Active Shun Hill MD Attending Provider Active [employer] 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 [facility]. provides no warranty or guarantee of the accuracy or completeness of information in this document.
--- NOTE | 2024-01-07 12:14 | US_ITS ---
[address] [address] Patient Name: GONZÁLEZ LOMELI MRN: [id number] date: 1985 Sex: F Assigned Patient Location: [facility] Current Patient Location: [facility] Accession/Order Number: [id number] Exam Date: 01/07/2024 12:15 Report Date: 01/07/2024 13:58 At the request of: SAGAR BUTLER Procedure: US OB BPP w non-stress EXAMINATION: US OB BPP w non-stress HISTORY: ADVANCED MATERNAL AGE COMPARISON: No relevant comparison available. TECHNIQUE: Ultrasound biophysical profile was performed in the radiology department. non-reactive stress testing was performed by nursing staff in the birthing center. FINDINGS: BREATHING MOVEMENTS: 2 GROSS BODY MOVEMENTS: 2 TONE: 2 QUALITATIVE AMNIOTIC FLUID VOLUME: 2 PRESENTATION: CEPHALIC HEART RATE: 160.71 bpm AMNIOTIC FLUID VOLUME: 27.3 cm GESTATIONAL AGE: 37 weeks 3 days US/US OB BPP w non-stress IMPRESSION: Total biophysical profile score: 8 Electronically authenticated by: MUSTAPHA COLES Date: 01/07/2024 13:58
[2024-01-07] MEDS: 0.9 % SODIUM CHLORIDE 1,000 ML 125 ML IV ×2 (13:20→19:49)
[2024-01-07 13:26] LABS: Hematocrit 34.7 % (36.0-48.0); Hemoglobin 11.7 g/dL (12.0-16.0); Mean Corpuscular HGB Conc 33.7 g/dL (29.9-35.2); Mean Corpuscular Hemoglobin 31.3 pg (26.7-34.0); Mean Corpuscular Volume 92.8 fL (81.0-99.0); Mean Platelet Volume 11.3 fL (9.5-13.5); Platelet Count 157 10^3/uL (150-450); Red Blood Count 3.74 10^6/uL (4.20-5.40); White Blood Count 10.5 10^3/uL (4.0-11.0)
[2024-01-07 13:42] LABS: Amphetamine Screen Urine NEGATIVE (NEGATIVE); Barbiturates Screen Urine NEGATIVE (NEGATIVE); Benzodiazepines Screen Urine NEGATIVE (NEGATIVE); Buprenorphine Screen Urine NEGATIVE (NEGATIVE); Cannabinoid Screen Urine NEGATIVE (NEGATIVE); Cocaine Screen Urine NEGATIVE (NEGATIVE); Methadone Screen Urine NEGATIVE (NEGATIVE); Methamphetamines Screen Urine NEGATIVE (NEGATIVE); Opiate Screen Urine NEGATIVE (NEGATIVE); Oxycodone Screen Urine NEGATIVE (NEGATIVE); Phencyclidine Screen Urine NEGATIVE (NEGATIVE); Tricyclic Antidepressant Urine NEGATIVE (NEGATIVE)
[2024-01-07] MEDS: OXYTOCIN/0.9 % SODIUM CHLORIDE 10 UNITS/500 ML PLAST..BAG 6 UNIT IV (13:54)
[2024-01-07] MEDS: AMPICILLIN SODIUM 2,000 MG in 0.9 % SODIUM CHLORIDE 100 ML 200 MG IV (13:54)
[2024-01-07] MEDS: 0.9 % SODIUM CHLORIDE 1,000 ML 1000 ML IV (16:13)
[2024-01-07] MEDS: ROPIVACAINE HCL/PF 400 MG/200 ML PREMIX 6 MG EPIDURAL (16:13)
[2024-01-07] MEDS: AMPICILLIN SODIUM 1,000 MG in 0.9 % SODIUM CHLORIDE 50 ML 100 MG IV (18:22)
[2024-01-07] MEDS: OXYTOCIN/0.9 % SODIUM CHLORIDE 20 UNITS/1,000 ML PLAST..BAG 125 UNIT IV (21:58)
--- NOTE | 2024-01-07 22:08 | PM.OBPRCVD ---
Procedure Intrapartal events: None Induction method: per pitocin protocol Delivery augmentation: rupture of membranes and pitocin Delivery monitor: external FHT and external uterine Route of delivery: Episiotomy Description: none L&D Laceration Description: perineal - 1st degree Delivery repair: Vicryl Estimated blood loss (mL): 300 Anesthesia type: Epidural Disposition: floor Infant Delivery date: 01/07/24 Gender: female presentation: vertex Placental delivery description: Spontaneous cord description: 3 Vessels and True Knot
[2024-01-07] MEDS: ONDANSETRON PF 4 MG/2 ML VIAL IV (22:26)
[2024-01-08] VITALS (8 sets, daily range): BP systolic 100–124; BP diastolic 61–72; PULSE 92–130; TEMP 36.6–37.1
--- NOTE | 2024-01-08 00:17 | P.OBPN_ITS ---
OB - PN: Subj Subjective Patient comments: no complaints [place] status: doing well Exam Constitutional Vital Signs, click to edit/add: Last Vital Signs Temp 99.2 F 01/07/24 23:00 Pulse 130 H 01/08/24 00:02 Resp 20 01/07/24 23:00 BP 115/66 01/08/24 00:02 O2 Del Method Room Air 01/07/24 23:00 Documenting provider has reviewed patient's vital signs: yes Common normals: no apparent distress General appearance: cooperative Orientation/consciousness: Yes awake, Yes oriented to person, Yes oriented to place and Yes oriented to time HENMT Common normals: normocephalic Eye Common normals: EOMs intact bilaterally General eye: normal appearance of both eyes Neck & C-Spine Common normals: full ROM Lymph Lymphatic: no lymphadenopathy noted Chest Common normals: inspection of chest normal Respiratory Common normals: normal respiratory effort Effort & inspection: able to speak in complete sentences Auscultation: clear to auscultation bilaterally Cardio Common normals: regular rate and regular rhythm Rate: regular rate Rhythm: regular rhythm GI Common normals: Normal to inspection, nondistended, normoactive bowel sounds present, soft to palpation and non-tender Palpation: soft, firm and tender Common normals: no CVA tenderness Back & Pelvis Common normals: no CVA tenderness Extremity Common normals: normal to inspection and full ROM Neuro Common normals: oriented x3 Sensorium/orientation: awake, alert, oriented to person, oriented to place and oriented to time Psych Common normals: mental status grossly normal, thought process normal and cooperative Appearance: grossly normal Attitude: calm Activity/motor behavior: appropriate eye contact Results Labs Labs: Short CBC 01/07/24 Range/Units 13:08 WBC 10.5 (4.0-11.0) 10^3/uL Hgb 11.7 L (12.0-16.0) g/dL Hct 34.7 L (36.0-48.0) % Plt Count 157 (150-450) 10^3/uL OB - PN: A/P Plan - Vaginal Delivery day: 1 Plan: routine care Time Spent with Patient Time: Total time spent is greater than 50% in coordination of care (as documented) at patient's floor/unit and/or counseling patient: Total time spent with greater than 50% in coordination of care (as documented) at patient's floor/unit and/or counseling patient: less than 15 minutes
[2024-01-08] MEDS: IBUPROFEN 600 MG TABLET PO ×3 (03:49→19:19)
[2024-01-08] MEDS: BENZOCAINE/MENTHOL 85 GRAM SPRAY BOTTLE 1 APPLIC TOPICAL (03:58)
[2024-01-08] MEDS: GLYCERIN/WITCH HAZEL PADS 1 PAD TOPICAL (03:59)
[2024-01-08] MEDS: ACETAMINOPHEN 325 MG TABLET 650 MG PO (06:30)
[2024-01-08 06:53] LABS: Hematocrit 27.1 % (36.0-48.0); Hemoglobin 8.8 g/dL (12.0-16.0); Mean Corpuscular HGB Conc 32.5 g/dL (29.9-35.2); Mean Corpuscular Hemoglobin 31.1 pg (26.7-34.0); Mean Corpuscular Volume 95.8 fL (81.0-99.0); Mean Platelet Volume 11.2 fL (9.5-13.5); Platelet Count 168 10^3/uL (150-450); Red Blood Count 2.83 10^6/uL (4.20-5.40); Red Cell Distribution Width 13.3 % (11.0-15.0); White Blood Count 15.6 10^3/uL (4.0-11.0)
[2024-01-08 07:21] LABS: Band Neutrophils Absolute 0.6 10^3/uL (0.0-0.3); Lymphocytes Absolute Manual 1.56 10^3/uL (1.20-3.80); Monocytes Absolute Manual 0.78 10^3/uL (0.30-0.80); Segmented Neut Absolute Manual 12.63 10^3/uL (1.4-6.5)
[2024-01-08 07:31] LABS: Glucometer 163 mg/dL (74-106)
[2024-01-08] MEDS: ACETAMINOPHEN 500 MG TABLET 1000 MG PO ×2 (10:15→21:50)
[2024-01-08] MEDS: DOCUSATE SODIUM 100 MG CAPSULE PO ×2 (10:16→20:31)
[2024-01-08] MEDS: SERTRALINE HCL 50 MG TABLET 75 MG PO (10:16)
[2024-01-08] MEDS: LIPASE PROTEASE AMYLASE 2 EACH PO ×2 (11:00→19:10)
[2024-01-08 12:30] LABS: Glucometer 206 mg/dL (74-106)
[2024-01-08 15:43] LABS: Glucometer 250 mg/dL (74-106)
--- NOTE | 2024-01-08 16:18 | PC.NURSE ---
visiting with family, no c/os
[2024-01-08 20:44] LABS: Glucometer 173 mg/dL (74-106)
--- NOTE | 2024-01-08 22:29 | PC.NURSE ---
PT COMPLAINS OF YELLOW TINT TO HER SKIN. SHE NOTICED IT AROUND NOON TODAY AND THINKS IT HAS CONTINUED THROUGHOUT THE DAY.
[2024-01-09] MEDS: IBUPROFEN 600 MG TABLET PO ×2 (01:56→09:35)
[2024-01-09] MEDS: ACETAMINOPHEN 500 MG TABLET 1000 MG PO ×2 (06:20→13:30)
--- NOTE | 2024-01-09 07:33 | PM.OBPN ---
OB - PN: Subj Subjective Patient comments: no complaints and pain well controlled [place] status: doing well Exam Constitutional Vital Signs, click to edit/add: Last Vital Signs Temp 98.6 F 01/08/24 22:26 Pulse 110 H 01/08/24 22:26 Resp 18 01/08/24 22:26 BP 124/67 01/08/24 21:48 O2 Del Method Room Air 01/08/24 22:26 Documenting provider has reviewed patient's vital signs: yes Common normals: no apparent distress Respiratory Common normals: normal respiratory effort and clear to auscultation bilaterally Cardio Common normals: regular rate and regular rhythm GI Common normals: Normal to inspection, nondistended, normoactive bowel sounds present Extremity Common normals: no clubbing, cyanosis or edema and no calf tenderness OB - PN: A/P Plan - Vaginal Delivery day: 2 Plan: routine care, discharge home and follow up 6 weeks Time Spent with Patient Time: Total time spent is greater than 50% in coordination of care (as documented) at patient's floor/unit and/or counseling patient: Total time spent with greater than 50% in coordination of care (as documented) at patient's floor/unit and/or counseling patient: less than 15 minutes
[2024-01-09 08:22] VITALS: BP 112/65; PULSE 97; TEMP 36.6
[2024-01-09 08:41] LABS: Alanine Aminotransferase 14 U/L (14-59); Albumin Globulin Ratio 0.5; Albumin Level 1.8 g/dL (3.4-5.0); Alkaline Phosphatase 123 U/L (46-116); Amylase 27 U/L (25-115); Anion Gap 12.8; Aspartate Amino Transferase 21 U/L (15-37); BUN Creatinine Ratio 15.5; Bilirubin Total 0.2 mg/dL (0.2-1.0); Calcium 9.1 mg/dL (8.5-10.1); Carbon Dioxide 25.1 mmol/L (21.0-32.0); Chloride 104 mmol/L (98-107); Estimated GFR (African America >60 (>=60); Estimated GFR (Non-African Ame >60 (>=60); Globulin 3.5 g/dL; Glucose 80 mg/dL (74-106); Glucose Fasting 80 mg/dL (<95); Potassium 3.9 mmol/L (3.5-5.1); Sodium 138 mmol/L (136-145); Total Protein 5.3 g/dL (6.4-8.2)
[2024-01-09] MEDS: SERTRALINE HCL 50 MG TABLET 75 MG PO (09:36)
[2024-01-09] MEDS: DOCUSATE SODIUM 100 MG CAPSULE PO (09:36)
[2024-01-09 10:12] LABS: Glucometer 156 mg/dL (74-106)
[2024-01-09] MEDS: INSULIN DETEMIR 300 UNIT/3 ML INSULN.PEN 10 UNIT SUBQ (10:41)
[2024-01-09 12:46] LABS: Glucometer 146 mg/dL (74-106)
[2024-01-09] MEDS: LIPASE PROTEASE AMYLASE 2 EACH PO (13:31)
[2024-01-11 15:10] LABS: HCV Ab Reactive (Non Reactive)
== END 2024-01-09 14:45 | disposition home or self-care (01) | DRG 807 ==
LOC: US 12:41 → FBC 12:41
PROVIDERS: Admitting Provider Obstetrics & Gynecology; Visit Provider Obstetrics & Gynecology
DX: O24.424 Gestational diabetes mellitus in childbirth, insulin controlled (principal); Z37.0 Single live birth; O69.2XX0 Labor and delivery complicated by other cord entanglement, with compression, not applicable or unspecified; O36.8130 Decreased fetal movements, third trimester, not applicable or unspecified; O99.284 Endocrine, nutritional and metabolic diseases complicating childbirth; E03.9 Hypothyroidism, unspecified; O70.0 First degree perineal laceration during delivery; Z3A.37 37 weeks gestation of pregnancy; Z87.898 Personal history of other specified conditions
CPT/HCPCS: 36415; 51702; 59050; 59410; 76818; 80053; 80307; 82150; 82947; 82948; 83690; 85007; 85027; 86803; 86850; 86900; 86901; 87522; 96365; 96366; 96375; 96376; J0290; J0665; J2405; J2795

== ENCOUNTER 2024-01-12 22:56 | Inpatient (IN) | payer OTHER, SELFPAY ==
[2024-01-12] VITALS (11 sets, daily range): BP systolic 124–190; BP diastolic 80–113; PULSE 107–120; TEMP 37.1; O2SAT 94–100; BMI 42.3
--- OUTSIDE RECORDS SUMMARY | 2024-01-12 23:04 | XMS_ITS | CCD ---
Author Organization [facility] Care Team Providers Care Graduate Fellow Name Role Phone Maria Guadalupe Powers Unavailable NadiyaAydee anderson Unavailable Perla Márquez Unavailable Shun Hill Unavailable [phone] MD Shun Hill Attending Provider DO Irma Burt Primary Care Provider MD Shun Hill Attending Provider [phone] DO Irma Burt Primary Care Provider [phone] Shun Hill Admitting Unavailabl e Irma Burt [...] day for 10 day(s) Jul, Active amylase 326784 unt / lipase 01629 unt / protease [id number] unt delayed release oral capsule (3 sources) Start: 04-06-2023 take 2 capsules by mouth three times daily at mealtime Creon [id number] UNIT 2 capsules Orally three times a [...] 1 tablet by mouth twice daily Sutab 9694-700-966 MG 12 tablets the first dose the [...] 5 day(s) September, Not-Taking 84 hr estradiol 0.43200 mg/hr transdermal system (4 sources) Estrogen take [...] URINE PROTEIN 170 mg/L High <120 [facility] Comment on above: Performed By: #### U PCR #### [facility] ([id number]) [address] [place] [address] U/PRO/AIRCRAFT ARMORER RATIO CALC 0.17 Normal <0.2 [facility] Comment on above: Result Comment: Neph rotic Syndrome is associated with ratios >3.5 Performed By: #### U PCR #### [facility] ([id number]) [address] [address] URINE CREATININE,RDM 98.06 mg/dL Normal [facility] Comment on above: Performed By: #### U PCR #### [facility] ([id number]) [address] [address] COMPLETE BLOOD COUNTon 09-16 Erythrocyte distribution width (RBC) [Ratio] 13.0 % Normal 11.5-15.0 [facility] Comment on above: Performed By: #### C BC, CMP, FEPR, 2532-0, 3084-1, TSHR, 2276-4, 2284-8, 2132-01 #### [facility] ([id number]) [address] [address] Hematocrit (Bld) [Volume fraction] 34.6 % Low 35-47 [facility] Comment on above: Performed By: #### C BC, CMP, FEPR, 2532-0, 3084-1, TSHR, 2276-4, 2284-8, 2132-01 #### [facility] ([id number]) [address] [place] [address] Hemoglobin (Bld) [Mass/Vol] 11.9 g/dL Normal 11.7-15.5 [facility] Comment on above: Performed By: #### C BC, CMP, FEPR, 2532-0, 3084-1, TSHR, 2276-4, 2284-8, 2132-01 #### [facility] ([id number]) [address] [facility] [address] [place] [address] MCH (RBC) [Entitic mass] 30.9 pg Normal 27-34 [facility] Comment on above: Performed By: #### C BC, CMP, FEPR, 2532-0, 3084-1, TSHR, 2276-4, 2284-8, 2132-01 #### [facility] ([id number]) [address] [place] [address] MCHC (RBC) [Mass/Vol] 34.4 g/dL Normal 32-36 [facility] Comment on above: Performed By: #### C BC, CMP, FEPR, 2532-0, 3084-1, TSHR, 2276-4, 228-8, 2132-01 #### [facility] ([id number]) [address] [place] [address] MCV (RBC) [Entitic vol] 90 fL Normal 80-100 [facility] Comment on above: Performed By: #### C BC, CMP, FEPR, 2532-0, 3084-1, TSHR, 2276-4, 228-8, 2132-01 #### [facility] ([id number]) [address] [place] [address] Platelet mean volume (Bld) [Entitic vol] 9.4 fL Normal 7-12 [facility] Comment on above: Performed By: #### C BC, CMP, FEPR, 2532-0, 3084-1, TSHR, 2276-4, 2284-8, 2132-01 #### [facility] ([id number]) [address] [place] [address] Platelets (Bld) [#/Vol] 181 10*3/uL Normal 150-450 [facility] Comment on above: Performed By: #### C BC, CMP, FEPR, 2532-0, 3084-1, TSHR, 2276-4, 2284-8, 2132-01 #### [facility] ([id number]) [address] [place] [address] RBC COUNT 3.85 X10E12/L Normal 3.80-5.20 [facility] Comment on above: Performed By: #### C BC, CMP, FEPR, 2532-0, 3084-1, TSHR, 2276-4, 2284-8, 2132-01 #### [facility] ([id number]) [address] [place] [address] WBC (Bld) [#/Vol] 11.3 10*3/uL High 4.0-11.0 [facility] Comment on above: Performed By: #### C BC, CMP, FEPR, 2532-0, 3084-1, TSHR, 2276-4, 2284-8, 2132-01 #### [facility] ([id number]) [address] [place] [address] COMPREHENSIVE METABOLIC PANE Charles 09-17-2023 Albumin [Mass/Vol] 3.4 g/dL Normal 3.2-5.3 [facility] Comment on above: Performed By: #### C BC, CMP, FEPR, 2532-0, 3084-1, TSHR, 2276-4, 2284-8, 2132-01 #### [facility] ([id number]) [address] [place] [address] ALP [Catalytic activity/Vol] 71 U/L Normal 39-130 [facility] Comment on above: Performed By: #### C BC, CMP, FEPR, 2532-0, 3084-1, TSHR, 2276-4, 2284-8, 2132-01 #### [facility] ([id number]) [address], [address] [place] [address] ALT [Catalytic activity/Vol] 11 U/L Normal 0-31 [facility] Comment on above: Performed By: #### C BC, CMP, FEPR, 2532-0, 3084-1, TSHR, 2276-4, 2284-8, 2131-9 #### [facility] ([id number]) [address] [place] [address] Anion gap [Moles/Vol] 11 mmol/L Normal 5-15 [facility] Comment on above: Performed By: #### C BC, CMP, FEPR, 2532-0, 3084-1, TSHR, 2276-4, 2284-8, 2132-01 #### [facility] ([id number]) [address], [address] [place] [address] AST [Catalytic activity/Vol] 13 U/L Normal 0-41 [facility] Comment on above: Performed By: #### C BC, CMP, FEPR, 2532-0, 3084-1, TSHR, 2276-4, 2284-8, 2132-01 #### [facility] ([id number]) [address], [address] [place] [address] Bilirubin [Mass/Vol] 0.3 mg/dL Normal 0.3-1.2 [facility] Comment on above: Performed By: #### C BC, CMP, FEPR, 2532-0, 3084-1, TSHR, 2276-4, 2284-8, 2132-01 #### [facility] ([id number]) [address], [address] [place] [address] Calcium [Mass/Vol] 9.0 mg/dL Normal 8.5-10.5 [facility] Comment on above: Performed By: #### C BC, CMP, FEPR, 2532-0, 3084-1, TSHR, 2276-4, 2284-8, 2131-9 #### [facility] ([id number]) [address], [address] [place] [address] Chloride [Moles/Vol] 104 mmol/L Normal 98-109 [facility] Comment on above: Performed By: #### C BC, CMP, FEPR, 2532-0, 3084-1, TSHR, 2276-4, 2284-8, 2132-01 #### [facility] ([id number]) [address], [address] [place] [address] CO2 [Moles/Vol] 24 mmol/L Normal 22-32 [facility] Comment on above: Performed By: #### C BC, CMP, FEPR, 2532-0, 3084-1, TSHR, 2276-4, 2284-8, 2132-01 #### [facility] ([id number]) [address], [address] [place] [address] Creatinine [Mass/Vol] 0.46 mg/dL Normal 0.40-1.00 [facility] Comment on above: Result Comment: METH OD TRACEABLE TO IDMS STANDARD Performed By: #### C BC, CMP, FEPR, 2532-0, 3084-1, TSHR, 2276-4, 2284-8, 2132-01 #### [facility] ([id number]) [address] [place] [address] eGFR (CKD-EPI) NON-RACE DEPENDENT >90 Normal >59 [facility] Comment on above: Result Comment: Reported eGFR is based on the CKD-EPI 2020 equation that does not use a race coefficient. Performed By: #### C BC, CMP, FEPR, 2532-0, 3084-1, TSHR, 2276-4, 2284-8, 2132-01 #### [facility] ([id number]) [address] [place] [address] Glucose [Mass/Vol] 78 mg/dL Normal 65-99 [facility] Comment on above: Performed By: #### C BC, CMP, FEPR, 2532-0, 3084-1, TSHR, 2276-4, 2284-8, 2132-01 #### [facility] ([id number]) [address] [place] [address] Potassium [Moles/Vol] 4.0 mmol/L Normal 3.5-5.0 [facility] Comment on above: Performed By: #### C BC, CMP, FEPR, 2532-0, 3084-1, TSHR, 2276-4, 2284-8, 2132-01 #### [facility] ([id number]) [address] [place] [address] Protein [Mass/Vol] 6.5 g/dL Normal 6.0-8.0 [facility] Comment on above: Performed By: #### C BC, CMP, FEPR, 2532-0, 3084-1, TSHR, 2276-4, 2284-8, 2132-01 #### [facility] ([id number]) [address] [address] [place] [address] Sodium [Moles/Vol] 139 mmol/L Normal 134-146 [facility] Comment on above: Performed By: #### C BC, CMP, FEPR, 2532-0, 3084-1, TSHR, 2276-4, 2284-8, 2132-01 #### [facility] ([id number]) [address], [address] [place] [address] Urea nitrogen [Mass/Vol] 8 mg/dL Normal 5-23 [facility] Comment on above: Performed By: #### C BC, CMP, FEPR, 2532-0, 3084-1, TSHR, 2276-4, 2284-8, 2132-01 #### [facility] ([id number]) [address], [address] [place] [address] FERRITINon 09-17-2023 Ferritin [Mass/Vol] 11 ng/mL Normal 11-307 [facility] Comment on above: Performed By: #### C BC, CMP, FEPR, 2532-0, 3084-1, TSHR, 2276-4, 2284-8, 2132-01 #### [facility] ([id number]) [address] [place] [address] Folate [Mass/Vol]on 09-17-19 24 FOLIC ACID 18.1 ng/mL Normal >5.8 [facility] Comment on above: Result Comment: NEW REFERENCE RANGE Performed By: #### C BC, CMP, FEPR, 2532-0, 3084-1, TSHR, 2276-4, 2284-8, 2132-01 #### [facility] ([id number]) [address] [place] [address] IRON PROFILEon 09-17-2023 Iron [Mass/Vol] 52 ug/dL Normal 50-170 [facility] Comment on above: Performed By: #### C BC, CMP, FEPR, 2532-0, 3084-1, TSHR, 2276-4, 2284-8, 2132-01 #### [facility] ([id number]) [address], [address] [place] [address] IRON BINDING 580 ug/dL High 250-425 [facility] Comment on above: Performed By: #### C BC, CMP, FEPR, 2532-0, 3084-1, TSHR, 2276-4, 2284-8, 2132-01 #### [facility] ([id number]) [address] [place] [address] IRON SATURATION 9 % SATURATION Low 15-50 [facility] Comment on above: Performed By: #### C BC, CMP, FEPR, 2532-0, 3084-1, TSHR, 2276-4, 2284-8, 2132-01 #### [facility] ([id number]) [address] [place] [address] LDH [Catalytic activity/Vol] on 09-17-2023 LDH 124 U/L Normal 100-235 [facility] Comment on above: Performed By: #### C BC, CMP, FEPR, 2532-0, 3084-1, TSHR, 2276-4, 2284-8, 9 #### [facility] ([id number]) [address] [place] [address] Natriuretic peptide B [Mass/ Vol]on 09-17-2023 Natriuretic peptide B (Bld) [Mass/Vol] 66 pg/mL Normal <100.0 [facility] Comment on above: Performed By: #### C BC, CMP, FEPR, 2532-0, 3084-1, TSHR, 2276-4, 2284-8, 2132-01 #### [facility] ([id number]) [address] [place] [address] TSH WITH REFLEXon 09-17-2023 TSH 0.78 uIU/mL Normal 0.49-4.67 [facility] Comment on above: Performed By: #### C BC, CMP, FEPR, 2532-0, 3084-1, TSHR, 2276-4, 2284-8, 2132-01 #### [facility] ([id number]) [address] [facility] [address] [place] [address] Thiamine (Bld) [Mass/Vol]on 09-17-2023 THIAMIN VITAMIN B1 See Below Normal [facility] Comment on above: Result Comment: NOTE [...] developed and its performance characteristics determined by [facility] Pathology and Laboratory Medicine [place] ([facility]). It has not been cleared or approved by the FDA. [facility] is regulated under CLIA as qualified to perform high-complexity testing. This test is used for clinical purposes. It should not be regarded as investigational or for research. Test Performed By: [place] [address] Rickshaw Driver: Colin Cisneros III, M.D. CLIA #[id number] Performed By: #### C BC, CMP, FEPR, 2532-0, 3084-1, TSHR, 2276-4, 2284-8, 2132-01 #### [facility] ([id number]) [address] [place] [address] URIC ACIDon 09-17-2023 Urate [Mass/Vol] 5.1 mg/dL Normal 2.6-7.2 [facility] Comment on above: Performed By: #### C BC, CMP, FEPR, 2532-0, 3084-1, TSHR, 2276-4, 2284-8, 2132-01 #### [facility] ([id number]) [address] [place] [address] VITAMIN B12on 09-17-2023 Cobalamin (Vitamin B12) [Mass/Vol] 185 pg/mL Normal 180-914 [facility] Comment on above: Performed By: #### C BC, CMP, FEPR, 2532-0, 3084-1, TSHR, 2276-4, 2284-8, 2132-01 #### [facility] ([id number]) [address] [facility] [place] [address] TSHon 05-25-2023 Thyroid Stimulating (3Rd Generation) Hormone/ Tsh 2.200 [facility] abdomen w conon 3 CT abdomen w con [facility] [place] [address] [place] [address] CT Scan Report Signed Patient: Laura Alves MR#: [id number] 3 : 1985 Acct:[id number] Age/Sex: 37 / F ADM Date: 04/10/23 Loc: CT Room: Type: [facility] Attending Dr: Shun Hill MD Copies to: [...] M.D.04/10/2023 4:03 PM Dictation Location: [place] [address] Transcribed By: [facility] 04/10/23 2729 Dictated By: Stan Owens DO 04/10/23 9373 Signed By: 04/10/23 1602 Normal [facility] HCG ( test) IA.rapi d Ql (U)Ordered By: Shun Hill on 03-15-2023 HCG ( test) Ql (U) Negative [facility] HCG,Urineon 03-15-2023 Beta HCG ( test) Ql (U) Negative Normal [facility] Comment on above: Result Comment: PERF ORMED BY: [address] [place] [id number] PATHOLOGIST MICROBIOLOGY DIRECTOR MARINA AYALA M.D. Performed By: #### U HCG #### [place] [id number] [facility] 03-15-2023 L Specimen: [id number] Received: 03/15/23 Status: BUSTER Alfredo Num: [id number] Spec Type: Surgical Subm Dr: Shun Hill MD Tissues: A Colon Biopsy (SURVEILLANCE BX) Procedures: Deepti CHILEL/Pierce L4 Age/ Patient Sex Location Account Attending Physician Laura Alves 37/F [id number] Shun Hill MD SPEC NUM: [id number] RECD: 03/15/23 STATUS: BUSTER RAMOS NUM: [id number] SUMIT: 03/15/23- DR: Shun Hill MD ENTERED: 03/15/23 [facility] DR: SPEC TYPE: Surgical DEPT: S [...] The microscopic examination confirms the diagnosis. Specimen: [id number] Received: 03/15/23 Status: BUSTER Gonsalez Num: [id number] Spec Type: Surgical Subm Dr: Shun Hill MD Tissues: A Colon Biopsy (SURVEILLANCE BX) Procedures: HE/2, Gross/Micro L4 Patient: Rick Alvesy [id number] (Continued) Specimen: [id number] Received: 03/15/23 (Continued) Signed (signatur e on file) Winston Donis MD 03/16/23 1737 Specimen: [id number] Received: 03/15/23 Status: BUSTER Alfredo Num: [id number] Spec Type: Surgical Subm Dr: Shun Hill MD Tissues: A Colon Biopsy (SURVEILLANCE BX) Procedures: DUY/Yaz, Deepti/Pierce L4 Patient: Parminder Alvessay [id number] (Continued) Specimen: Received: 03/15/23 (Continued) CPT Codes 09447 Specimen: Received: 03/15/23 Status: BUSTER Gonsalezvanessa Num: [id number] Spec Type: Surgical Subm Dr: Shun Hill MD Tissues: A Colon Biopsy (SURVEILLANCE BX) Procedures: HE/Yaz, Gross/Micro L4 Patient: Laura Alves [id number] (Continued) Signed (signatur e on file) Robbi-Tyrel Donis MD 03/16/23 1737 [facility] SARS-CoV-2 (COVID-19) RNA NA A+probe Ql (Resp)on 01-16-2023 SARS-CoV-2 (COVID-19) RNA GEORGE+probe Ql (Unsp spec) Positive [facility] Other HIV 1&2 AB/AG Screen (P24 AG )on 12-13-2022 HIV 1&2 AB/AG Non-Reactive [facility] Hepatitis B surface antigeno n 12-13-2022 Hepatitis B Surface Antigen Negative [facility] No Panel InformationOrdered By: Rae Agudelo on 12-13-2022 [facility] Rubella IGG immune statuson 12-13-2022 Rubella immune IgG <0.90 NON IMMUNE [facility] Syphilis Total(Unknown Syphi lis Status)Ordered By: Rae Agudelo on 12-13-2022 Syphilis Non-Reactive [facility] COVID Quick Testingon 2022 Result Negative [facility] Other COVID Quick Testingon 2022 Result Negative [facility] Other COVID Quick Testingon 2022 Result Negative [facility] Other COVID Quick Testingon 2021 Result Negative [facility] Other Consent for Treatmenton 05-21 Consent for Treatment [id number] 318#1.00CD:127 [facility] Coding Summary.on 05-28-2021 Coding Summary. CD:[id number] ZFs3sBb+PGhlYWQ+PE1 WNORdL95roKPtjW8SK9 fYMH3ZXVOHHDOUGO9YG G1kwMB6LAxjR9HjidNb ZydjcKBcDI61QLs9GUH 7mLalXMusuR5piSFyH5 u8RyItEQ26qK34QTnzZ OIcXcX7QiYhxgdolLEg U8skXyLdmKObHmz+PHR hYmxlIHdpZHRoPScxMD OvRoRyyLqlWT6sQb5gW GVyLWNvbGxhcHNlOiBj f5hfVYQlXKncDE0ruPe fC1BliOY9KHWqj4o5Lg 48dHI+BSJpEPL4tWoeL Wcin945JhQan4psSKB1 zREdJHrnTNT7W04by0B 1RLTjZMSmRGO3kMY7jX 2ywYnwttpgF9IzzTWwV hR9TDX4sQSjeS3lfAzj ashkpK0oNcw+X72SMQ5 LLMSLWY6OMwd0E7VaDj wvdHI+MD85OBDsPF07r AUofMFdw4lfaEp1GpGr BDEyKQV0zOnoGJazl2R qHFViV09taSJwt2F8MM GroVqtjZVzDpKolMM2d Y4cKBgjjmaij0rdtogp Prhmv8tqtx79xI39W02 sRIwoHNAwWJJ1KAQoRS ZufYlqzi6kuB5oGz8+I Ygsk2mdn1fcmPb2OlNq UQGydlIrkAznKVI4z9B fXs06I2KnwWcxc9ByEs t3zs90cVLqn4S6zJM5N FeyDRMvwG7uYHxwEmJ8 FIKdXqTzfL93bNQfGAe qOq0tqMxnfGntIW7rKB QcsgfxZUJdqO2iNYFar OSpsCmmOE8rVMTrgqmf w644IzMtJWC0ZCEymRY pD1BuuA1rFmOaWPFtWM HzB1TlmDShSKpzN032G RglCvR0QVSgstMxM3Tg QENbcXqbSdT5s0D9Ra9 Wy4JyzarlNXL0FDxcWH WeZgD3QtWyMtQ0C8BjV ji2JSXxeVteNK6xQ9Kk ITSqinnbkftabJF7UGN gVJUteH47zZNsRVyvXd 6pw9O7k931PVQzAHBwx O09Sj7gqPjtZIVsdOWL mY4dudomn0qxdlubEhV rLZQvZGi9GYo6PUPwhR nsUdGfWRE4PsW0QAA9a BDncP3knJescmgvuD5k Oyc+P40wuX4zCLL1SGQ 2tcosPREzghRqGL78VW 14H9WnJvozpZLrwLY+P KNfygEpiRedKB6eJfUz h0vxc6QtYQyqI7WtBEY hOCmwPjx1FYSqRGO5aM N2kA0wGWHbVHmlu4J8c QI7D9EtlzExhd5ls4bw LUZoBPxtM91yhZDee4M 8WCXlzHW8VMPfyRuqPf BydD25Kbg+PGNvbGdyb 0GzMmxbj1eys1dwdKo3 IjMwJSIgdmFsaWduPSJ 5x7LeRc65U09tSDwbVL RoPSIxNSUiIHZhbGlnb h9drQ9lPb6+PGNvbCB3 xIM7uR8wWPXkHzO5VJv gT453FxFeoJNlCgghg1 icx9xpjJl4XjXoHMUer zFgsAvePJC5n5EaAw18 R81iVKqzNEEyCUNfPSQ kOPMvePywzu4wgD8mHp 8+BX6fi6zfvi71hD42g HI+FQGrBCB2oBznDMlz QKBsrE4cTJmtAnA3OKE iOvJgeY49nBNgDLeqCo 0rdNpsxJkdPY1mFHGsx pepq710UeFeu0vrVUGx jYVaPAycOVX6Z14mb6P 5KWPfGOBfCPX4jZH6bF 1hbGlnbjogbGVmdDsgd lDtnVuhGIjwLYzyP300 IHRvcDsnPlBhdGllbnQ fVlRpUJv2B0EdGez1WW CueSgsVU5qlCAkJAubN r2pjZmspDgvKQ4aLUEy hiuic128RkRub3fwLWH ewBGdVTcbHKX9C99kl3 I1IQRsZNJjQQE3tDJ1x K1wqGdurjwleRXtoCyj uyYbdPcoHGzsTYkhU12 6IHRvcDsnPkJpcnRoIE RkvLG6XL46EZ05nBHbx 5L0aAD1O8VjLIWwqljv vtxagZZ9NWIcDVKyfZ2 7Bk1dmMzoRn9kJUZoDE J3OEUenGZjW4MpoK0tC pFcHOWuALHwN0VowTHu WTmeA012VWrdJuR1MQM rpxCvV5OiEFZetFhsOk L8l9S5By5EL2X8PC12V F64yIVej4O0bWH3Z1Dg OBHdpcwidkhlsMB0AJN lXKPcqJ43Et3esKkuEi 9eNEMnXQR6YOFznKWhU 1JeaG9bDuQdZETrPGWb S4ZubDTxIBjfM309PZd kFtF5SAUicwYhR9FyRW TemWetMqR0c1K6Fz3UT Lg2ZJ49RT29bWDfj5A9 mVT8D4ZzSUKmookliwd cuPY2WVBjMVJwdE55Br 1skFfeXu3vAPCiEQN7J NRyzPXjA7KxtX7mTtJu LLSlKGBjD0UspJFhQOo eW845RGlqIeN4QGQoza KcK6ReSEHizWwqNxM8t 3R6Yp6BOYNeRA64ZAN1 bMD9MF45WK38K1ClYgs vdGFibGU+PHRhYmxlIH dpZHRoPScxMDAlJyBzd OxtPP2dYu2nCGGhTEGr wQqixRGzAtMak3fhQDX wZLxvAF1aqViyY1EqeF Z8RNYao2j0Pd62K60cU 3JvdXA+MVSnjZN8aPM8 bR4uPzQhYqK4WBqtV56 0AcMekVTgZbixx7xxq9 uekPd9UuQ6JSPuwoBoz YvpFWM1q2QbZz43K00z IHdpZHRoPSIxNSUiIHZ mfMmvau5wcS8zRc3+PG GclAC8gEM8yF0nWyUwA aO1ZXyvF105PeTygIYt Hjsfa2ccx9tnaAt5MyR jXMCiwuGweZaaUUW2a7 TmCe69E1IunAjsy8GcG vl1gk67fFUnd8Q6gPX7 G4LzOMBrisdrnJZzsJa fAN6eLSFqvgniVXAlzW 7bWRHjO2t2DjJfOcI7N NdoG1IwvtO1WBAuyBLs LPecALK0D27xy5T3LHH wWXVoASY9vFZ5zD2ksZ lnbjogbGVmdDsgdmVyd EgzOBhaKRfqI920JQPm vIeeMPAchU1pXNZjbJY tiBmwZY2mGUEdonzxWm yIDQ8IJFIQNzprMLhLH UTNAGRIUP75DA71eOSc o9U5wMR9O2IqKAPqohy kujxevQE7KRVcQJQcfU 94fFHjMYldFg0eh7M2h 183USAaSLKjfV95Xi0c jBnvQROhdGGGjX1dtbs as0uixcsgPiQfOJEhYX e2RZi9UHWshCofWiVyK QT3BeC4AKS9vULvcV5x hJlszwyoqP5nZgl+MTI sBKdoLYy4OHioqGT+PH DaSJK9lRreJOgdGQIgl Q6eWZZxV6w5NrRxEnN8 TWysT1WpOEUyzariOz3 7pV3xOnLqYrO2NUooN3 AvvxR2TAKnlXPyFNfgX EG9S67qm3J1BUKqBDBh KKU4pSW7wU5xjUybmir gbGVmdDsgdmVydGljYW guZQaaV842AQMyvWdcR xG5KYlsMATjQI61NI17 bVJkm6O9hAX6A2DhIJU mxuchoqdjdUD7PFPrAR DwrM32rQLqHVqqTn7wa 7X8i266BOKeBYCqhO23 Of4koVwxQCRdkODPnH5 xogrjd7fgdzjaVhEfVO VzTVa7QAp2SWYaoRweD wWeWYH0NiG8BBB2bPDe tW4srKiguyxlxW0jAwg +KuWuSDyzKQ29NB51sA Hfd5U1pCM6T8SvVEMzp josjgaqdLR1QFOgQKAx nS30kXDrAGenTj0as2D 9q297CIVmGJCntK76Uf 9jjBhyQLKawKULbW3xn orqx5drfiavMrWfJJXe JXv0LEu9ONOmfMmgZtR dIWD1ObM0PVF3nPTnqA 5mxWrbpwyvnK5bUdg+U eCdfWSgqY4aVC60VM86 U2IpIrtwnEIjwWD+PHR hYmxlIHdpZHRoPScxMD QzFnMxzJalVH7jXr0zI GVyLWNvbGxhcHNlOiBj s9anROVtTDpoLU9smTt mY6PlaQJ6SVGlk5a1Hy 89M88jU6GbtHO+PGNvb HE8yVS4lS2fLePrNgC1 YUpwN907DaQzgEPfRfe ur3sst2zvjKz1BaIyIO VejzQwfAzsPVL6q9YeQ d26U19tHMmpMMLlRIBt GEDjWAAgcFspgi2umA2 wIi8+VTGkaVF5fKL3uZ 7nAeDbElB5KJhjL415K pAfsDAwUlbmR15xU8Gf dXA+LLTnUcf2NPAfkSi cKW3tdHNfKWujCs0kEN F2MtBzMtDhFRikB5IzU VIzjwocvxbvyDJ6ZELw SRYmnH27Cd9utAouCc4 tRYUmOVT3MSBvyAXdD1 TyyA2bSdOjAGDnVDHcR 4LcrXZkTSbbT014YYjh WoM7ULHvimKkN3YkSTE jrJzcShT6l4P7Zl5GwL nsqDFsZM4hLaNjHDe6O 9RdZts6LFCwjAgjKS0p tQRfRMooNl2noPyyiPl mFX8vYURgfaesd752Rj Izc3mmZAQtnQWiOLkgU IT0P49zq7M6UBFoCNZp XSC3bKJ7kO4slGwpwvz gbGVmdDsgdmVydGljYW ivKAfwA870QHIiqDpdK aJLVdk9R5BeSko3DHIc fYqyBL0tiVKxDDoaQx1 lqIertUsrBR8pHJDbvj oza191QuHrf7tfYYCtq ITsJOovDSM2Y44vc0C1 OTLmIANeYAH5uTK6lI3 hbGlnbjogbGVmdDsgdm UhpDzbSFbiDInxG086Y DNvjLlkPd1WVzr4G7Ju Ics1EQVyiIjnCU4obZA hHOelNr7lfCsdbJnbJZ 2gCUCklwkpa343ZvHgq 2pqOOItaFErGSidWEL6 L67pt7C8HHKaACNzEGZ 1qDJ5vC5azCpbqzjqkO VmdDsgdmVydGljYWwtY QgjI844FADtlQszPtDl eWVyOjwvdGQ+TO75yu6 3S3IpNvwsHqs6FHLuHP H4tAA3wC3xDXZkSBgln 4R0uSG7Z2WlgeYdph8f b2xs (more content not included)... Normal [facility] Priority Order-Juan 2021 Priority Order-STAT Comment Invalid Interpretation Code [facility] Comment on above: Result Comment: Rece ived Performed at: [facility] [address] [facility], [place] [id number] [facility] Mina Jones Performed By: #### S ARS-CoV-2, GEORGE, [id number] #### [facility] [address] [place] [address] SARS-CoV-2, NAAon 05-25-2021 SARS-CoV-2 (COVID-19) RNA GEORGE+probe Ql (Resp) Not detected Invalid Interpretation Code Not Detected [facility] Comment on above: Result Comment: This nucleic acid amplification test was developed and its performance characteristics determined by [employer]. Nucleic acid amplification tests include RT-PCR and [...] detected) result in this assay. Performed at: [facility] [address], [place] [id number] PhD Shalom Gonzalez Performed By: #### S ARS-CoV-2, GEORGE, [id number] #### [facility] [address] [place] [address] Family Medicine Phone Visit - Telehealthon 05-22-2021 [...] 6 months ago. Has been using DayQuil [id number] with moderate improvement. Review of Systems Fatigue: [...] only communication with the patient located at [address] [place] [phone], with no one else. If it is [...] verbalized understanding Ordered: Rapid COVID Antigen ([facility]) Telephone Est 5 to 10 minutes [id number] 2. Fatigue (R53.83: Other fatigue) see above plan, rule out covid. Ordered: Rapid COVID Antigen ([facility]) Telephone Est 5 to 10 minutes [id number] 3. BMI 27.0-27.9,adult (Z68.27: Body mass index [...] 1035F Telephone Est 5 to 10 minutes [id number] Follow-up With When Contact Information Irma Burt [...] Methamphetamines, Pre (more content not included)... Normal [facility] Comment on above: Result Comment: Elec tronically [...] height. This can be done either in [place] or metric measurements. Note that charts are available to help you find your BMI quickly and easily without having to do these calculations yourself. To calculate your BMI in [place] measurements, your health care provider will: [...] problems. ? BMI can be measured using [place]ese measurements or metric measurements. ? To interpret [...] Reviewed: 03/20/2018 Elsevier Patient Education ? 2019 [employer] [facility] Physician Orderon 04-27-2021 Physician Order [id number] 8#1.00CD:127 [facility] Coding Summary.on 11-04-2020 Coding Summary. CD:[id number]:[id number] WDp2kQj+PGhlYWQ+PE1 GDFOnF96laSDgdD4CR0 nJNW9YHMSNMQJVSJ7VE O8hlHU4SFzsG2XrdmAw WadbeMVgSE91MMp7RGH 7hMnsKCpvuM0awJUwB4 w4YoBuTR30jL88JEfuX PUiScN5XmVvhticxUBz N5siXtIxbYSuYzv+PHR hYmxlIHdpZHRoPScxMD KsQqJsqQmbXM5uTc0aL GVyLWNvbGxhcHNlOiBj x8koJFKtBWugJS6olEz sB8SmwBH7KJBvz2b3Eb 48dHI+QMSnSEF5nLtiJ Xsbq888UiQix4bjIUI3 vCDbZDdhXDX6F74pn2V 6DCLhPBCyVXH5uYH2yT 5xmYvucimlF8XikESwS qG0UYP1fNUdrZ9aiGra nwcjaA6dVoz+Y96JHC8 VTIRXPS5YYsv7T5DeIc wvdHI+BN75LLRkEL49q VMkhHFec1jgxUl8JlSs AZNtBXA4fYwuPDlll3B bVNBzQ90huZQzu8E5ZN GuuGbiqNGdQfItvXK2b A6zBEzikrjwn4jgxiwe Mliym8iuhs39wL54R34 gQWduXIRbJCC4NSCwFL GedMxise1neA7vEz2+I Zkgn4cwm4wyhEo1HgRm MSVifuUvaDwyIIK5s6D eLo10U9KmpGliw4JlWc d0eu32mDSjd2Q7eSG5I NeeJNFioF9aDLpmZjT4 GSYfBbBghB31zJVuWAz zXp9ulTanfEpcTX0lBF QbsvfhOQPejZ2kSZKth SMzoHcyFR3rHBIepeex n237DuXwPSC4QMBziEC zA7ApjM4oUxPxVRMcYL YiW9BdaWBmTAxeS338C NnnYcC5OPHawlOmJ6Ae ITDhhFsvOiT6p6C3Dz7 Yj9WyspciELF7WAkyJC V3JuP8OdLhOyF6K6YoL bg1ZOTtiLjqTA1cW8Yw GSGcpaturcmgcIS3FSI pTSHecX57mZGmPYdqXd 8xn2A1g787COQvATXrj B53Zx4liGlhVTDnwBRX kA1ebeblg7raibizXcT vLZGbQZc8KMm6CGSveV exPwFxJDH7GfE2UDC5n HXniM7uaCamohkgsM8i Oyc+G16nwI0pKVT3IIE 3dbgdQLDkckZePQ09MB 26U7BwFyqxzLIrlVE+P PIdqgFpnPfzVM0sJuIp d8cco4RiRXosU1MkDFT dHOtcFpa4ONCjFKS0rV U1mU0yKMKjDVjow0B6a QT5K4MrbaXjzt5ww1ht DBYdTGajN62ufHPyj7H 3MTWdmVC7UWChsPqaUs UeaH02Aat+PGNvbGdyb 8KfAjhgd5cag2pvgFg2 IjMwJSIgdmFsaWduPSJ 0c8IjTf26D73jHYzwJH RoPSIxNSUiIHZhbGlnb z6yaG9sEj0+PGNvbCB3 fMA3jP4iBODmPtF8MJm uF399KzVmrTJgBktzf4 zrc9umaQb1RvVeRIDoo mKjoLezNLH1v1IaYk95 T26mCUvySOReSPEbHZX gTJRvnSdweu5lwV1gKv 8+QS7dm7vovt87kM89o HI+MEMmQNR4nXzqSRyt IJQeqR0vNYxlNkU5SXG cAbTbjA13vRAkKHaeVg 3tkEmlxXldNH0xRVQfc iuyh485QeKab0qmLUAy fTKlVQgnFBO0L78hk7X 6JYXyKJFgZAV9fZE2vZ 1hbGlnbjogbGVmdDsgd oQvmUjqKJwuVTgvG339 IHRvcDsnPlBhdGllbnQ dWbKrPVt2R2RdElb1SF WokEzeLG2kkTBmTMfdB q2keOeuyPsoLL9pGUFq ultnb717ZxVwn0waIZI cgVEgMPmlUGR7R59ev6 T1HKGxELRpRLD6cZG4y M9vlVdmqiakzZPbcAqq bkMghGmjUCriNKhpA84 6IHRvcDsnPkJpcnRoIE FdrAO4RW12DZ64pRJqy 7I9kOP0V1YrINYwkqpb fpiqvUR2DZByNDJkdX5 1Kq0gmGxqWx5wJIJjDE N1LTAchRNlM0SjcY1uP xQhIOEnOHYuL9FclQWi YJwbX215RSrvGyB2QSF tgwChZ7SoMYHbuCjsWy V7m3W0Ws9II7U3QA40M A48tNNmn9Z2jLB8W8Ga ZEPwdvbcowpxyGF1ZHB aAPKvpV37Vw4hsKlnUh 6lZDYrMXJ7JVCykOYgS 0BwmL5wIwJhUEPmFJDl Y5WflTDfNTwqO624WKw yRlZ8ZRMzpvKfX7DyNK UfpMmpYzD2n4N4Vp6QV Id9SD77HD21aVZul5R7 tVC2J0ZmSHKahnfrctv fvMH1FVFlDRBpdI87Ag 7ejFcmNe6uSSGhGDF5S LFhrDYpB4PthL4uRtBi JUEcILSbG2GquVElOBk zU474NPwbSoN6RFHqoe YjF1SsGJDdtPnpOaA5c 8U9Fe2FWMAwBK84WLN7 pBY8WM42UO25N3TsXqa vdGFibGU+PHRhYmxlIH dpZHRoPScxMDAlJyBzd MqxEM1eOv9dSIPpVWQt cQakfKIvWyAuo9xlRXS rIKjlAX7mdBebQ4BxoA X2UPGke7n4Gr98Y42nH 3JvdXA+RNDiuGY0kIC5 uL8xXpPiFzZ5OPhrZ00 4DoCdaJKsTagdj9llt6 tzfRs4OwR0FNCjydPpu YfrRGG0n4WdCt33I01b IHdpZHRoPSIxNSUiIHZ vuVndwn4qgR6jDo3+PG UbpZV2jPQ6kI6fGwFtE dC3DVgoZ165KzJbaOCo Htnmx7lux7jxjIv3HmZ aWZIdgxKwuNutGEP3p1 WjLb61F9ErtJtwq3HsO tv9bt73sDDcf7C8wHJ7 K1MaPNIznatvbNWsvJm dAG3nAJXtnmfiLCZkrG 7uZGXyP2z6LsYcFkO4R GwvE9HvdpQ8TXUeqXRe PQdvCGY2X45yo7P2DMW fWGHdNZN7wVE0iY5ruD lnbjogbGVmdDsgdmVyd KgwDNquQWyfZ874LTRq eBwkRDFnwS3gCGDijYO hjKgkHU2uQDRzqnhqGh nSNR4COXOXLgxlLOjQB VMRUMOZUD16CO82hDWh w8M9nTL1F1RqIHDwkom tmqcghWM3KSYaKANzkN 16hZSjEEotJh8ol2E8n 266CNWfUWHqyX06Cc2z fBjyXUDepBGIxP5rpnf ex0tpadfbTtPaQJAfIT m8UOr3WCBwwRbgCcOoR JZ9TnC7REW8qDGdjU4g dBdbxwvupG0oKha+MTI iLBpdVPq8GTfxaTV+PH TcECW2zYgcIZclUAEfh E7mAACqX8i0BgGnBzF6 OHboR8JrJVOuddtaDt9 3uU4cEzVcTqD1IAchC0 OcyfU0NUVzdKAkIMfzH WH8K90gi3O6BATdESBk RHG0bQP4gO7zeKvpcem gbGVmdDsgdmVydGljYW gvUVjyM024IFLxpOpzX iA9NSchIHVcLK10XL29 vFDpy3N4oCN0O7HlWQE raihwlsybyPT4LWCxVY PipS11mPUhYLjrVs8jz 4W5q137LWPxJPIlxN86 Lh0wcQdtGFTuiWBKoF1 bjuaew7gbltszFtXdUU WcEBu5ZMd9RMNpkVaaI iNsJDI6BoJ2AGU8pEBx cD9frWwliehqvV7hTop +QiLmNHkwAK32LS56iJ Dpw8O9rMQ1T1KxMIAhk zasfglguAM6ZMUvBGHb vL86hMOoOBndWp1rm0Z 8n575ZUTvYEYteY68Rg 9dmBctUXHviPVYyD7ue ncny2xxvtkrLoPePQDa EEe6QMy4XWHhvYysUxW nYND7LhN5FOR7zIQskC 8czRftpwfnvP3aKzs+T 1L5sNX5cBXbrOncvRN+ PF91bl24E1KcTlnxMfa 6LUOmRZY8bIC7uX2zMO GrXBllx9R3xMZ6Z7Zmp sPjae2jd3hpUDNdYHnt C89itWAhp9Z1ENLzuLK 6ABOidYfpScWwoX16Vn c+QNVhgOmxm8SyFqvxa 2pir5tljSv1KfRhNVId ppKuvVpiYPI2w4JbYe1 2F25eGXiuPTFjJMCaOY PnRVIxyLxxoq4kjV4aG i8+HCSijII9lTF1cV5b AwEwGwY8UNhkU402OtM zzAJfXakoh9jng9yejO x8JaOyEGRmeySsiOsnH YX1l0IeIv73R2ZtgOxb y0YlBum5ff44iNQgd7N 6gMY2X1HjGJRqxemdyQ EhvCimEB3yTUSpffglU MPzaR5rOZHlN9i6CwSj XvR0YIauU9IpjbY4PSZ ohVSwTBSynZXShV0vor twb5vmjcxuFtCgRWQuG Rt8QOl4XQSxxKsmGbMl OOR7XrG0QFS0bOYdcM4 ecLphhxexdZ4yCov+UG m0p3gduQJtJQ0yzCG7V C60PD94jMPos4T0rQD1 I8QgIRBpviibcpuekXE 0FRZaYXJpkE23Hw9obP cdGy3mEHZgSFU0WDCdt NIaU1TxrD1sAzZxDOSn DAYaZ3NwcDLkAMjvV38 6XVifTvZ2YMNunlPtA6 UdATReyJdzQeA9e9D5Y v9AOG94VL37NK26iRTb s3Z3wBM0Z6GqVPUoadn tauyvuVL6QLIxAEXboZ 18Fb0chIheWe5fQDZjO UD9XBCmoRKxF8IpcC8f GfPsTLRhEVRfE8VttVM zVJsxG538QPuvOdH0WQ FtkhTtL0VuCHHcdVsnT fO7a3L1Mz7LBx78ST82 ZQ96tMLce0P3xCW1B3H fADJyqmjvxoogoRC9UT OmFSVsxT44Gg9uwZokG q8kKXMoJPF9BMTkyCBp V8UbgG1zSdIkQJCdSHZ mH1EzvCLiLUzsN519SW kiWeM6EZEcsdVnB3BnK SXgdMtvNcE9g9X0Kc1S BFbqbsc1Z5BjYekqsUC +TE16UUNgKH54gFNfzJ Kay8enwXm3PtPgKHZnS TB7vSktIXspw8EdSDJj Y29s (more content not included)... Normal [facility] CT Chest w/ Contraston 10-29 CT Chest [...] Contrast amount in ml's: 100 Normal [facility] Coding Summary.on 10-28-2020 Coding Summary. CD:[id number] QDy1qEr+PGhlYWQ+PE1 TQLUoV89flGEqvG9PN5 yKZQ6RPYRWWUUXVR1PI T7hiCR0AWeuY9JqxoIe EuvkcMEnXV51RJj2OKR 5pSywEBxhnE0jrLBhN6 x9IgLzKZ47dA07EWncI HFsReC6XkSbvpnscSOm L3tpRyBcyRLeBkx+PHR hYmxlIHdpZHRoPScxMD NaDfGhcFvfOJ8cLu6uG GVyLWNvbGxhcHNlOiBj h0irDXHzXLrsDD4iyTm dV6LkqQJ0XJOqb1b3Km 48dHI+VWZwYQB0bNdeQ Kkfe337TcNco0mnARR6 gAZlZZavXDO0X20mm2O 3WQDwRJTkAJP6yAJ9nC 1zjQbqtvwpN6HcmTPkG mX3IYF3jLSohH9glZla dmwxcE0uKrt+D28RQS2 WDRTBRZ1FQyu3N1YqYw wvdHI+XB33YWJdYW76m JIcwKLml3ypwGi7WlUo JYLyLML4pWbsTDprn3L cBUMcH86ygOKwu8A2RE EbuHqujOAjXePhiWI7u N4iSOlbgsmsw4mvvldy Yaswu5rypq67cE55D23 vFFngYFRnAGL3SZSdLL QstSqakv4dkY0sPh2+I Ukqz7zio9slnKy9HmDk CLOpgqRagFliALS3n6V iCa21H7JhuLojd1ChIz m5qs21nOVcr2C6wSP0E DmtCTZjlD7tNYkdVzS8 HKZdLdHztC78yLFgWYz xWc4vtAppkQpeYA3fCI YyzalyTJJzaH2cRHRci PTuwCtrYT7gIGLgdyrl r675DbWuBJY5UEKmbIH tE3WloO0oVlDeFOUqLR HcC8QaoLPwTHvwL328A IsuHvW3KSPunbEbK7Bv PVDgkLwvGjB6d9S7Bd7 Vk5MhvslbYBF8GRnfHM X2HtGlEvWkOdK5X2QpU sl8LGDazKheYZ3hJ6Vw QFBgbnpdyfaycVD4BHZ lVWDtxK47fCRcMDzwMy 4ar0Y9i090LZJqSAKsr X47Gc8dxCkfIDLcvQDT wP4ssyfrv2kbexdtSmJ qIVIeBXx2OHt6HVQpeA gaFsMvPXJ6CwX5NLN7z LBrdS0zfBncpttjtY0o Oyc+E20ugJ1aXQL1LNS 5bkuaLYChhfIxSH57NN 33I4YhMaeqgAGjeBV+P OXxdnJmcDzdFV7gLzEs h7lqu0ItHVmaZ1RaYVS oGXjvXaz2TGSySYX6sR R4sE7qLVGlCImzo8W3y ZC3Q8ZqmwLjim0il8cc FYHpFCvxL66ltKPfi0R 0SHJxuLU5RBAfjJzbUu WuvT58Gbz+PGNvbGdyb 2UvSncid5wth5jpjOl6 IjMwJSIgdmFsaWduPSJ 4l0VqXv47S56tLXkpRS RoPSIxNSUiIHZhbGlnb w8ipE5eAu9+PGNvbCB3 vOP7oU3pDOVlAoZ1WMi vY911XkCycKOqHixeu8 oqi7xftEz8TlXvMCBgo fUdbUifOAE6n6LzZb93 Z27bJMkqIXLjVRMqBTQ vIIRewYofjl6zbN8mMz 8+IW5oe7hipn81bL85s HI+KAEjTSP8gTqnVMib FVFceV9rLMnbFcE2YMP pLuAsxZ92lKGgBDbiDb 6vnCjzwLfyOQ5eKTAzh xhbr827EcTyz8kdNMKr eTMxYTvjUHG3P89hs2X 2XNJhXHPwTZO6wQV9uV 1hbGlnbjogbGVmdDsgd lXvrDrlZTsuIGryJ817 IHRvcDsnPlBhdGllbnQ pAsKrFOa1Y3ArYvr3RY EskMzsBN8nrJDxQIevW e8inRduhDrxQJ4zGSCv elqkr917FrFji9swDOL phPPuTGedCFL9K71hi6 H6XWMlTGWpQEM2vHU8o F3wcUvsgoqpwPQepPnb afHquZslVEhdKUelD75 6IHRvcDsnPkJpcnRoIE XplUA1VP89OC08kDAyq 3I3bCA2O5TmGYYrocxs saekvIR3ZBPqFOLizI2 7Qf5vzIivPr9bNHOkWF I7TVVxjBLpZ1IavF5fD tDrIXQtAUFtF5NzjILn RUeyZ178OZbmWjA9MDW iycOaF2TmJNVmuZguKf O8k5S6Cd7YR5W4XN21S S77oOYhy1L0nZH9S6Wl LCPwqmodjqpqzYU9NOH oKKRtrI94Fz7nmLkyTl 0aAHFtXNA9CKEuuRWgG 1RdpO7oKdNdXHAiCXYo Y7OmbPYpRLiyB791SAd pOkV4ECDonmUsP3RpLJ CvwVrfXuQ4b9E3Ah0BW Cr9DP76LW73pKXkn9B0 aLE0Q6LpWGKzigdvedy jdKD4SKEpSNVcrC30Lr 1pkIxyPm6lKQDeXHG5O IZvlAWuE2RuqQ4wJtOm UIAkQBEcO9OvjSNrOQj vI187XIjvFbO8LPNzdz TaS5HwXNItlUdeNlX9a 3X6Uv3FQTXdSC28JLP6 xJS5ZK88YW68C6JhClc vdGFibGU+PHRhYmxlIH dpZHRoPScxMDAlJyBzd GtiSE0tHr2wHLRcHHXo uDnniBHtLuZry5niIGP eLCpyHT9zjRavY1SjbY D2RMGsh5c4By16Y10sP 3JvdXA+FEXtnAC1uMS3 oN6wRtXfDqI4VVorC92 0DrYooVNqJgdzg8ncw2 soeNg8WtB8DYPuyyGgb FxfEIR7t7RhCx91K03q IHdpZHRoPSIxNSUiIHZ hjVikpz2aoN5zRa5+PG IigSP5yLP8nP0dVxGgJ zD9EGxjT295NkEzaCVu Xuvuv7fjx0anbOj1CoX vPQGbadEeaLmtESN6w7 XmFg91B9UjkDhdn5HfV fj4lg95hXHax0G6xCN1 B1SmLUIjrtjwsAGzfOc uBU5cJSAliltuHASfdJ 0bRNPiJ1i1WuItSnO8B WynG0BhsgN2HRUrjFOo XIglNYE7R02ld6U7ZEO dKVVuZLR8tKR2kT8qfT lnbjogbGVmdDsgdmVyd OajTYfzFCudX913DYDt dVvhUOJwqP5jEYSppMT ikAuaGQ5rYPFabqcgYh cPQB8RIHAHSdbvZUbZG SZHEOKRSZ72IC11dYXs s6I1cZJ5Z2YcRFHmtht ukfavsMW0VVFhOTHijB 69sIHcNOtcLd9hb4T9q 428SHKrXFSlbZ46Zh8g iYjqQNSijYXFcO5hefz gd8jvuctkTfJyQGSyGO y9OTu1YIEhfKviEfFbL XP0QnI0JLU4gVGvuD5i cThigboltO6kVnb+MTI mYLseXOb9MOnzyOY+PH DuOHR7aXrxDLleJSMjj K3pRDVvU6d8FfTyWsF9 BKdyR6TsQUVnsxeaMo9 1aY1uKvRkJwW2POvwK2 XlwmC3DFZntIPsZEusL TC0C49rk4I4NGNjGBLt DMN2eMJ1fF3nbUektkl gbGVmdDsgdmVydGljYW syFBqgO520XTDjeQwfA pJ0AUnnDEJoWZ76PS80 bEFqu2I7sAH4B0KzVUX hxogagrgntDD5AAMpZS EzcT62iJLyFRozAx7jt 3X6s915OSApVKGfvI85 Ny5fqWioJWDpwQNLsG9 goeaxk8zhokblMbMiOI EoVKd3IMp2MWWwvObmP gEgTDA9VoU1XGN3pDQe cZ1kdMgapgjhuO1fUyl +SiAiQDknYN10YQ32zB Kyx9I8wBH9P2DhFAEdb kenxsqlsCU5ESRnCLWx gN72fNQrTQkaSz4gj5R 6y634ZOZqRXBhmL24Rl 9ykDrnTIMroDDDfI7vk dfix4bgiyoqWnViEBXe HOm0USb5QYDqnWnfXwY fKMU3JaR3LWY3aPLifK 4btWvqzrcwiE7qLft+T 8F3wUL7hCWmjSbvwZJ+ FW82hr72F9AfNjwrYcg 7WRJfSEA9iOW8sU8zCU ThTKkrb4C3lXE5X6Fuv zFydc8of1sbQTLyBLhr E98iaDQbb6Y1HDAdaAZ 8GPIsmNtnFtYcaJ00Wl c+FGGguEzsk8SqAutlz 7qkj0coiQn8DaCiOLUz sfZuzXkgZJB6z8TtGa8 7V36tXDlkDJHwIHWvIG UtNHKzuFsptx5qyE7nG i8+NCKntRE5aOP9bC4t XuNtGmC4ZJauX933JhE luKLgRvnpn6cfh7kvhC n6FoHzKFZwzsJchFguE FF6d3QbSe91M7IgaSer l8JiDwd7eo86mXCvn0N 9aFY9K7DoOCGprigddR BcvBtrMU7xIESkrmrtD PIunP5uKKBfX9a0ZiTq GyT4EFgaN5MkzeB9VCV jmKZqBWAyxFWBxY8zqb yxv4wuqxbyLiQeFZDhR Ep0YTn0EYNuhZowTtZb SOV5MxT8ENP6cBZkiX6 tqEwuwwgjuW6hBnh+UG b1r6vdrWKhCP8mxXH4K E83CJ32rXVou6L6yVD1 W0DjMVPonkdqgidaoDG 0WPEjFLEskZ03Uw7hnY uwUu9oLNRnVIT8OILdp VVqR5LosT7yXnBoZPQj NHRtU3XprXEfLFssB94 1HOpkDxN6HCFlwqOpX8 MwYJRdrOtiLcI0a2R7W w4IWT51GU52OK59zTOh l5L5eRR9G2SyGQAftyt femobgYM1LDSeDBZjrS 23Xp8etVbmBr0pYJRlC EA3ROZhhHGbS7AylX5s KlPyEGXqLMWuJ4FasKM aGMvyX681PPjiCrW7QG HlsgYjL9AnPRLnbHzsJ lH3m9Z9Qq9ESt35DE44 ED46hKGbx2A3oWM0Q0P lUQFhthnzlimvbLV3ON NtJVSsfP78Up2bwRuvU r7pVWRsBBE5JXMxzIYa A4PauJ3nLvKlJURhTKL cB4NqzIXaZFmmD334EQ jyImV3NUKltdBeS4SgD SOneKicMrC1w8G4Nh6P QJfjzlw0E0XvDiqlxRT +VQ85HVVeHH88kUPgtY Org6cgrDc4QoCbCSWnG KZ7fHamUIxnh1SxHSKo Y29s (more content not included)... Normal [facility] Consent for Treatmenton Consent for Treatment [id number] 44#1.00CD:127 [facility] Physician Orderon 10-21-2020 Physician Order [id number] B8#1.00CD:127 [facility] Consent for Treatmenton Consent for Treatment [id number] B4#1.00CD:127 Normal [facility] Physician Orderon 10-19-2020 Physician Order [id number]#1.00CD:127 Normal [facility] XR [...] M.D. Transcribed by: SHAYNA Technologist: BECKI Corona [facility] Vital Signs Date Time Vital Sign Value Performing Clinician Facility 07-26-2023 11:27-0500 Body height 170.2 cm Kaitlyn Jasso MD Work Phone: [facility] 06-12-2023 13:00-0500 Body height 170.18 cm Shun Hill Other [facility] Other 06-12-2023 13:00-0500 Body mass index (BMI) [Ratio] 35.24 kg/m2 Shun Haleormack Other [employer] [facility] Other 06-12-2023 13:00-0500 Body weight 102.06 kg Shun Hill Other [facility] [employer] Other 03-15-2023 12:29-0400 Diastolic blood pressure 89 mm[Hg] DO Irma Burt Work Phone: [facility] 03-15-2023 12:29-0400 Heart rate 70 /min DO Irma Burt Work Phone: [facility] 03-15-2023 12:29-0400 Respiratory rate 16 /min DO Irma Burt Work Phone: [facility] 03-15-2023 12:29-0400 SaO2% (BldA) [Mass fraction] 100 % DO Irma Burt Work Phone: [facility] 03-15-2023 12:29-0400 Systolic blood pressure 132 mm[Hg] DO Irma Burt Work Phone: [facility] 03-15-2023 08:54-0400 Body height 170.18 cm DO Irma Burt Work Phone: [facility] 03-15-2023 08:54-0400 Body weight 90.71 kg DO Irma Burt Work Phone: [facility] 02-08-2023 14:45-0400 Body height 170.18 cm Shun Hill Other [facility] Other 02-08-2023 14:45-0400 Body mass index (BMI) [Ratio] 34.92 kg/m2 Shun Hill Other [facility] Other 02-08-2023 14:45-0400 Body weight 101.15 kg Shun Hill Other [facility] Other 02-08-2023 14:45-0400 Diastolic blood pressure 80 mm[Hg] Shun Hill Other [facility] Other 02-08-2023 14:45-0400 Systolic blood pressure 131 mm[Hg] Shun Hill [facility] Other 01-16-2023 10:35-0400 Body height 170.18 cm Aydee Nadiya Other [facility] Other 01-16-2023 10:35-0400 Body mass index (BMI) [Ratio] 35.2 kg/m2 Aydee Nadiya [facility] Other 01-16-2023 10:35-0400 Body temperature 98.3 [degF] Aydee Nadiya [facility] Other 01-16-2023 10:35-0400 Body weight 101.97 kg Aydee Nadiya [facility] Other 01-16-2023 10:35-0400 Diastolic blood pressure 66 mm[Hg] Aydee Nadiya [facility] Other 01-16-2023 10:35-0400 Respiratory rate 18 /min Aydee Nadiya [facility] Other 01-16-2023 10:35-0400 SaO2% (BldA) [Mass fraction] 98 % Aydee Nadiya [facility] Other 01-16-2023 10:35-0400 Systolic blood pressure 105 mm[Hg] Aydee Nadiya [facility] Other 09-23-2022 10:45-0400 Body height 170.18 cm Aydee Nadiya [facility] Other 09-23-2022 10:45-0400 Body mass index (BMI) [Ratio] 35.13 kg/m2 Aydee Nadiya [facility] Other 09-23-2022 10:45-0400 Body temperature 99.2 [degF] Aydee Nadiya [facility] Other 09-23-2022 10:45-0400 Body weight 101.74 kg Aydee Nadiya [facility] Other 09-23-2022 10:45-0400 Diastolic blood pressure 80 mm[Hg] Aydee Nadiya [facility] Other 09-23-2022 10:45-0400 Respiratory rate 18 /min Aydee Nadiya [facility] Other 09-23-2022 10:45-0400 SaO2% (BldA) [Mass fraction] 98 % Aydee Nadiya [facility] Other 09-23-2022 10:45-0400 Systolic blood pressure 125 mm[Hg] Aydee Hearn Other [facility] Other 09-04-2022 11:20-0400 Body height 170.18 cm Aydee Hearn [facility] Other 09-04-2022 11:20-0400 Body mass index (BMI) [Ratio] 31.32 kg/m2 Aydee Hearn [facility] Other 09-04-2022 11:20-0400 Body temperature 97.8 [degF] Aydee Hearn Other [facility] Other 09-04-2022 11:20-0400 Body weight 90.72 kg Aydee Hearn Other [facility] Other 09-04-2022 11:20-0400 Respiratory rate 18 /min Aydee Hearn Other [facility] Other 09-04-2022 11:20-0400 SaO2% (BldA) [Mass fraction] 99 % Aydee Hearn [facility] Other Encounters Encounter Date Encounter Type Care [...] pital Start: 09-20-2023 End: 09-21-2023 ambulatory KAITLYN [facility] Start: 09-18-2023 End: 09-18-2023 ambulatory SAGAR LUKE Not Available Start: 09-17-2023 End: 09-17-2023 ambulatory SAGAR R LUKE [facility] Start: 09-17-2023 End: 09-17-2023 ambulatory KAITLYN [facility] Start: 08-31-2023 End: 09-04-2023 ambulatory FROYLAN Rascon RACHEL [facility] Start: 08-15-2023 End: 08-15-2023 ambulatory IRMA KD Not Available Start: 07-26-2023 Chart abstracting Kaitlyn Jasso MD Work Phone: [facility] Start: 07-18-2023 End: 07-18-2023 ambulatory SAGAR LUKE Not Available Start: 06-20-2023 End: 06-20-2023 ambulatory Shun Hill [facility] Other Start: 06-20-2023 Telephone encounter Shun infante [facility] Start: 06-19-2023 End: 06-19-2023 ambulatory SAGAR BUTLER Not Available Start: 06-12-2023 End: 06-12-2023 ambulatory Shun Hill [facility] Other Start: 06-12-2023 Office outpatient vi sit 15 minutes Shun Hill [facility] Start: 05-01-2023 End: 05-01-2023 ambulatory Shun Hill Facility:[facility] Start: 05-01-2023 End: 05-01-2023 ambulatory DO Irma D Burt Work Phone: [facility] Work Phone: Start: 05-01-2023 End: 05-01-2023 Patient encounter procedure DO Irma Burt Work Phone: [facility] Work Phone: Start: 04-10-2023 End: 04-10-2023 ambulatory Shun Haleormack Facility:[facility] Start: 04-10-2023 End: 04-10-2023 ambulatory DO Irma D Burt Work Phone: [facility] Work Phone: Start: 04-10-2023 End: 04-10-2023 Patient encounter procedure DO Irma Burt Work Phone: [facility] [place] Work Phone: Start: 04-06-2023 End: 04-06-2023 ambulatory Shun Hill [facility] Other Start: 04-06-2023 Telephone encounter Shun infante [facility] Start: 03-20-2023 End: 03-20-2023 ambulatory Shun Hill Other [facility] Other Start: 03-20-2023 Telephone encounter Shun Moncada naresh [facility] Start: 03-19-2023 End: 03-19-2023 ambulatory Shun Liz Other [facility] Other Start: 03-19-2023 Telephone encounter Shun Moncada naresh [facility] Start: 03-15-2023 End: 03-15-2023 ambulatory Shun Hill Facility:[facility] Start: 03-15-2023 End: 03-15-2023 Admission to same day surgery center DO Irma Burt Work Phone: [facility] Work Phone: Start: 03-15-2023 End: 03-15-2023 ambulatory DO Irma Landrum Burt Work Phone: [facility] Work Phone: Start: 02-26-2023 End: 02-26-2023 ambulatory Shun Liz Other [facility] Other Start: 02-26-2023 Telephone encounter Shun Moncada naresh [facility] Start: 02-08-2023 End: 02-08-2023 ambulatory Shun Liz Other [facility] Other Start: 02-08-2023 Office outpatient ne w 45 minutes Shun Hill [facility] Start: 01-16-2023 End: 01-16-2023 ambulatory Aydee Hearn Other [facility] Other Start: 01-16-2023 Office outpatient vi sit 15 minutes Aydee Nadiya [facility] Start: 09-23-2022 End: 09-23-2022 ambulatory Aydee Nadiya Other [facility] Other Start: 09-23-2022 Office outpatient vi sit 15 minutes Aydee Nadiya [facility] Start: 09-04-2022 End: 09-04-2022 ambulatory Aydee Hearn Other [facility] Other Start: 09-04-2022 Nursing evaluation o f patient and report Aydee Hearn [facility] Start: 07-12-2022 End: 07-12-2022 ambulatory Perlarolo Márquez Other [facility] Other Start: 07-12-2022 Office outpatient vi sit 5 minutes Perla Márquez [facility] Start: 07-07-2022 End: 07-07-2022 ambulatory Aydee Hearn Other [facility] Other Start: 07-07-2022 Encounter for other preprocedural examination Aydee Hearn [facility] Start: 07-07-2022 Nursing evaluation o f patient and report Aydee Hearn [facility] Start: 02-03-2022 End: 02-03-2022 ambulatory Maria Guadalupe Powers Other [facility] Other Start: 02-03-2022 Office outpatient vi sit [...] Td Vaccines (3 - Td or Tdap) [facility] Start: 09-17-2023 End: 09-17-2023 Patient encounter procedure 09/17/2023 8:45 AM EDT Office Visit [facility] [address] [place] [id number] Kaitlyn Jasso MD [address] [facility] [address] [place] [address] [facility] Start: 09-17-2023 End: 09-17-2023 Patient encounter procedure 09/17/2023 7:30 AM EDT Appointment [facility] [address] [place] [id number] [facility] Start: 05-01-2023 [facility] Start: 03-15-2023 [facility] Start: 01-19-2023 COVID-19 Vaccine ( season) COVID-19 Vaccine ( season) [facility] Start: 01-19-2023 Influenza vaccination Influenza Vacc ine [facility] Start: 12-30-2021 Adult BMI Screening Adult BMI Screen ing [facility] Start: 2006 Screening for malign ant neoplasm of cervix Pap Smear [facility] Start: 1997 Depression Screening Depression Scre ening [facility] Start: 1997 Tobacco Screening Tobacco Screening [facility] Immunizations Immunization Date Immunization Notes Care Provider Fa cility 02-03-2020 influenza virus vaccine, unspecified formulation Kaitlyn Jasso MD Work Phone: [facility] Payers Date Payer Category Payer Private Health Insurance [id number] 2023 Self-pay [id number] 2018 Private Health Insurance [employer] POS II [id number] 2018-Present [phone] [address] [place] [address] [id number] 1985 Unknown [id number] 2.16.840.1.608961.3.579.2 .1285 1985 Unknown [id number] 2.16.840.1.690384.3.579.2 .1285 1985 Unknown [id number] 2.16.840.1.424649.3.579.2 .1285 1985 Unknown [id number] 2.16.840.1.947099.3.579.2 .1285 1985 Unknown [id number] 2.16.840.1.302991.3.579.2 .1285 1985 Unknown [id number] 2.16.840.1.833212.3.579.2 .1285 1985 Unknown [id number] 2.16.840.1.764209.3.579.2 .1285 1985 Unknown [id number] 2.16.840.1.619285.3.579.2 .1285 1985 Unknown [id number] 2.16.840.1.728699.3.579.2 .1285 1985 Unknown [id number] 2.16.840.1.564095.3.579.2 .1285 1985 Unknown [id number] 2.16.840.1.906591.3.579.2 .1285 1985 Unknown [id number] 2.16.840.1.284710.3.579.2 .1285 1985 Unknown [id number] 2.16.840.1.279751.3.579.2 .1259 1985 Unknown [id number] 2.16.840.1.527676.3.579.2 .1258 1985 Unknown [id number] 2.16.840.1.304749.3.579.2 .9 1985 Unknown [id number] 2.16.840.1.558051.3.579.2 .1258 1985 Unknown [id number] 2.16.840.1.788089.3.579.2 .1258 1985 Unknown [id number] 2.16.840.1.684939.3.579.2 .1258 1985 Unknown [id number] 2.16.840.1.525784.3.579.2 .1258 1985 Unknown [id number] 2.16.840.1.193384.3.579.2 .1258 1985 Unknown [id number] 2.16.840.1.164249.3.579.2 .1258 1985 Unknown [id number] 2.16.840.1.858631.3.579.2 .1259 Medicaid [facility] [id number] Private Health Insurance [id number] Unknown [facility] [id number] Unknown [id number] 2.16840.1.608326.3.579.2 .531 Unknown [id number] 2.16840.1.593853.3.579.2 .531 Unknown [id number] 2.16840.1.234174.3.579.2 .531 Social History Date Type Detail Facility Start: 06-30-2020 End: 07-26-2023 Sex Assigned At [facility] Other Start: 03-15-2023 End: 03-15-2023 Tobacco smoking status NHIS Ex-smoker (finding) [facility] Start: 1985 Sex Assigned At Female F [facility] Start: 11-17-2020 Tobacco smoking stat us NHIS Smokes tobacco daily [facility] History of tobacco use Tobacco U se Types Packs/Day Years Used Date Smoking Tobacco: Every Day Vaping/E-cigarettes Smokeless Tobacco: Never [facility] Start: 11-17-2020 Tobacco use and exposure Smokeless tobacco non-user [facility] Start: 07-26-2023 Alcohol intake Current [place] [facility] ([place] [facility] Start: 06-30-2020 End: 07-26-2023 History of Social function [facility] Childcare Unknown [facility] Start: 11-17-2020 Alcohol Comment social [facility] Start: 05-04-2023 [facility] Start: 1985 Sex Assigned At Not on file P [facility] Goals Date Patient Goal Desired [...] Mayelin Pinto DO on 08/31/2023 11:23 AM [facility] 06-12-2023 Evaluation note Encounter Date Diagnosis Assessment Notes May, Diarrhea (ICD-10 - R19.7) Patient reports that she is about 7-8 weeks gestational Patient reports improvement on Creon with occasional flare Patient reports that she is taking a fiber supplement May, Fatty liver (ICD-10 - K76.0) Patient did have a FibroScan that indicates fatty liver and minimal scaring, this will be reviewed [facility] 11-17-2023 Evaluation note* Encounter Date Diagnosis Assessment Notes Treatment Notes Treatment Clinical Notes Mar, Exocrine pancreatic insufficiency (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) [facility] 10-31-2023 Evaluation note* Encounter Date Diagnosis Assessment Notes Treatment Notes Treatment Clinical Notes Feb, Alternating constipation and diarrhea (ICD-10 - R19.8) Feb, Fecal urgency (ICD-10 - R15.2) [facility] 10-30-2023 Evaluation note* Encounter Date Diagnosis Assessment Notes Treatment Notes Treatment Clinical Notes Feb, Alternating constipation and diarrhea (ICD-10 - R19.8) [facility] Encounter Date Diagnosis Assessment Notes Treatment Notes Treatment Clinical Notes Feb, Alternating constipation and diarrhea (ICD-10 - R19.8) [facility] 09-21-2023 Evaluation note* Encounter Date Diagnosis Assessment Notes Treatment Notes Treatment Clinical Notes Jan, Alternating constipation and diarrhea (ICD-10 - R19.8) WORSENING DIARRHEA AND CONSTIPATION OVER THE PAST YEAR. DOES HAVE SOME NOCTURNAL AWAKENINGS WITH THE DIARRHEA. CAN GO 4-5 DAYS WITH OUT A BOWEL MOVEMENT WHEN SHE IS CONSTIPATED. WILL ORDER IBS WORK UP WILL PROCEED WITH COLONOSCOPY [facility] 08-29-2023 Evaluation note* Encounter Date Diagnosis [...] no improvement in 2 to 3 days [facility] Other 2023 Evaluation note* Encounter Date Diagnosis [...] no improvement in 2 to 3 days [facility] 04-17-2023 Evaluation note* Encounter Date Diagnosis Assessment Notes Treatment Notes Treatment Clinical Notes Aug, Contact with and (suspected) exposure to other viral communicable diseases (ICD-10 - Z20.828) [facility] 02-22-2023 Evaluation note* Encounter Date Diagnosis Assessment Notes Treatment Notes Treatment Clinical Notes Jun, Contact with and (suspected) exposure to covid-19 (ICD-10 - Z20.822) [facility] 02-17-2023 Evaluation note* Encounter Date Diagnosis Assessment Notes Treatment Notes Treatment Clinical Notes Jun, Preoperative clearance (ICD-10 - Z01.818) [facility] 09-16-2022 Evaluation note* Encounter Date Diagnosis Assessment Notes Treatment Notes Treatment Clinical Notes Jan, Contact with and (suspected) exposure to covid-19 (ICD-10 - Z20.822) [facility] Other Evaluation note* Diagnosis Onset Date Resolution Status Di[facility] Work Phone: Evaluation noteNo InformationNort [employer] Other History general Narrative - Reported* Type Description Date Medical History ANXIETY AND DEPRESSION [facility] Hospital Discharge instructions Additional Instructions DISCHARGE [...] if you have any problems. -[facility] [phone] Work Phone: InstructionsNot on filedocumented in this encounter [employer] SystemReason for visit NarrativeRED EQUINOX, ANTIGEN PROCEDURE TESTNoAeropost Other Reason for visit NarrativeNEEDSNEGATIVE, RAPID COVID TEST FOR PROCEDURENoAeropost Other Summary Purpose Family History No Family [...] section and content) DATE CREATED AUTHOR 08/24/2021 [facility] DATE CREATED AUTHOR AUTHOR'S ORGANIZ ATION 05/09/2023 [facility] DATE CREATED AUTHOR AUTHOR'S ORGANIZ ATION 09/22/2023 [facility] DATE CREATED AUTHOR AUTHOR'S ORGANIZ ATION 12/25/2023 [facility] DATE CREATED AUTHOR AUTHOR'S ORGANIZ ATION 12/27/2023 [facility] EPIC REASON FOR VISIT [...] Active Shun Hill MD Attending Provider Active Graduate Fellow Relationship Specialty Start Date End Date No Pcp, [place] [address] PCP - General Family Medicine 11/18/20 FOR [...] BE BASED ON THE PRIMARY CLINICAL RECORDS. [facility] Schedule [facility]. provides no warranty or guarantee of the accuracy or completeness of information in this document.
--- NOTE | 2024-01-12 23:14 | ECG_ITS ---
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
[2024-01-12 23:39] LABS: Bilirubin Urine NEGATIVE (NEGATIVE); Blood Urine LARGE (NEGATIVE); Clarity Urine CLEAR (CLEAR); Color Urine BROWN (YELLOW); Glucose Urine UA NEGATIVE (NEGATIVE); Ketones Urine NEGATIVE (NEGATIVE); Leukocyte Esterase Urine MODERATE (NEGATIVE); Nitrite Urine POSITIVE (NEGATIVE); Protein Urine 100 mg/dL (NEG/TRACE); Specific Gravity Urine 1.025 (1.005-1.025)
[2024-01-12 23:39] LABS: Hematocrit 24.2 % (36.0-48.0); Mean Corpuscular HGB Conc 33.1 g/dL (29.9-35.2); Mean Corpuscular Hemoglobin 31.3 pg (26.7-34.0); Mean Corpuscular Volume 94.5 fL (81.0-99.0); Mean Platelet Volume 10.1 fL (9.5-13.5); Platelet Count 234 10^3/uL (150-450); Red Blood Count 2.56 10^6/uL (4.20-5.40); White Blood Count 12.5 10^3/uL (4.0-11.0)
[2024-01-12 23:41] LABS: Urine Microscopic Indicated YES
--- NOTE | 2024-01-12 23:44 | ED.GENADUL1 ---
HPI HPI - General Adult General Chief complaint: OB/Uterine Contractions Stated complaint: General Weakness Time Seen by Provider: 01/12/24 23:15 Source: patient and family Mode of arrival: walk-in History of Present Illness HPI narrative: 38-year-old female to the emergency department with chief complaint of headache, generalized weakness. Patient reports she is 5 days . Symptoms came on suddenly today. She had a unremarkable spontaneous vaginal delivery on 01/07 at [address] Ospina at [facility]. She denies any chest pain or shortness of breath. She reports fatigue, generalized weakness, headache. Denies any nausea or vomiting. No seizure-like activity. No confusion or altered mental status per . She reports history of diabetes, no history of hypertension. Related Data Home Medications ?Medication ?Instructions ?Recorded ?Confirmed difusv-zhalkbqt-jnsjbic 2 cap PO TID 07/16/23 01/12/24 36,000-114,000-180,000 unit capsule,delay rel (Creon) sertraline 50 mg tablet 75 mg PO DAILY 07/16/23 01/12/24 blood-glucose meter (OneTouch 12/08/23 01/08/24 Verio Reflect Meter) cyanocobalamin (vitamin B-12) 1,000 mcg PO DAILY 12/08/23 01/12/24 1,000 mcg sublingual tablet ferrous sulfate 325 mg (65 mg 325 mg PO DAILY 12/08/23 01/12/24 iron) tablet levothyroxine 75 mcg tablet 75 mcg PO DAILY 12/08/23 01/12/24 omeprazole 20 mg capsule,delayed 20 mg PO DAILY 12/08/23 01/12/24 release insulin glargine 100 unit/mL (3 10 unit subcut DAILY 01/08/24 01/12/24 mL) subcutaneous pen (Lantus Solostar U-100 Insulin) insulin lispro 100 unit/mL 4 unit subcut .BEFORE DINNER 01/08/24 01/12/24 subcutaneous pen Allergies Allergy/AdvReac Type Severity Reaction Status Date / Time No Known Drug Allergies Allergy Verified 01/07/24 14:04 Opioid HPI Opioid Management Most Recent Opioid Data: Last Pain Scale 6 01/09/24 13:30 Last Pain Assessment 01/08/24 08:56 Ur Phencyclidine Scrn Negative (NEGATIVE) 01/07/24 12:55 Review of Systems ROS Status of ROS 10 or more systems reviewed and unremarkable except as noted in history and below [facility] Medical History (Updated 01/13/24 @ 00:12 by Julien Crowley MD) Normal colonoscopy Normal hysteroscopy ?Z01.89 - Encounter for other specified special examinations (ICD-10) Family History (Updated 01/07/24 @ 14:07 by Kindra Sweet RN) Father Family history of CHF (congestive heart failure) Social History Smoking status: Former smoker Highest level of school completed/degree received: some college, no degree Exam Narrative Exam Narrative: VITALS: I have reviewed the triage vital signs. GENERAL: Tearful adult female NEURO: Alert and oriented x3. Moves all extremities. Face is symmetric and expressive. EYES: PERRL. No scleral icterus or conjunctival injection. No discharge. HENT: Normocephalic, atraumatic. Hearing is grossly intact. Nares grossly patent and without discharge. Mucous membranes moist. NECK: No JVD. Patient moves neck without restriction. CARDIO: Rhythm regular. Normal rate. No murmur, rub, or gallop. Pulses equal bilaterally in the upper and lower extremity. No lower extremity edema. PULM: Lungs clear to auscultation in all carlos. No wheezes, rales, or rhonchi. No conversational dyspnea. No splinting, stridor, or accessory muscle use. GI/: Abdomen is soft and non-tender. Normoactive bowel sounds. EXTREMITIES: Symmetric muscle bulk. No joint swelling. No clubbing, cyanosis, or deformity. SKIN: Warm and dry. Normal turgor. No rash or lesions appreciated. PSYCH: Mood, affect, and interaction is appropriate to the setting. Constitutional Vital Signs, click to edit/add: Last Vital Signs Temp 98.8 F 01/12/24 23:15 Pulse 118 H 01/12/24 23:15 Resp 19 01/12/24 23:15 BP 190/108 H 01/12/24 23:15 Pulse Ox 94 L 01/12/24 23:38 O2 Del Method Room Air 01/12/24 23:38 Course Vital Signs Vital signs: Vital Signs Temperature 98.8 F 01/12/24 23:15 Pulse Rate 118 H 01/12/24 23:15 Respiratory Rate 19 01/12/24 23:15 Blood Pressure 190/108 H 01/12/24 23:15 Pulse Oximetry 100 01/12/24 23:15 Oxygen Delivery Method Room Air 01/12/24 23:15 Temperature 98.8 F 01/12/24 23:15 Pulse Rate 118 H 01/12/24 23:15 Respiratory Rate 19 01/12/24 23:15 Blood Pressure 190/108 H 01/12/24 23:15 Pulse Oximetry 94 L 01/12/24 23:38 Oxygen Delivery Method Room Air 01/12/24 23:38 Medical Decision Making MDM Narrative Medical decision making narrative: 38-year-old female to the emergency department with chief complaint of headache, generalized weakness. She is severely hypertensive upon arrival, otherwise stable vitals. The patient is afebrile. She has no focal neurologic deficits. Recent spontaneous vaginal delivery at 37 weeks gestation. She is 4 days . Given the patient's headache and severe hypertension I am concerned for severe preeclampsia. Will give a dose of labetalol and start magnesium bolus. Labs are ordered. I discussed the case with the on-call [employer] Dr. Ospina. He agrees with current plan of care. Recommended discussion of the patient with [facility]. He reports he is more than happy to take care of the patient here and less they would like her transferred there for protocol. I discussed the case with Dr. Jasso the on-call MFM at [facility]. No indication for emergent transfer at this time, if local OB comfortable managing patient may stay here. I called and again discussed with Dr. Ospina. He will take the patient directly to the L&D floor. Lab Data Labs: Lab Results 01/12/24 01/12/24 Range/Units 23:25 23:29 WBC 12.5 H (4.0-11.0) 10^3/uL RBC 2.56 L (4.20-5.40) 10^6/uL Hgb 8.0 L (12.0-16.0) g/dL Hct 24.2 L (36.0-48.0) % MCV 94.5 (81.0-99.0) fL MCH 31.3 (26.7-34.0) pg MCHC 33.1 (29.9-35.2) g/dL RDW 14.0 (11.0-15.0) % Plt Count 234 (150-450) 10^3/uL MPV 10.1 (9.5-13.5) fL Seg Neuts % (Manual) 76.0 H (43.0-75.0) Lymphocytes % (Manual) 5.0 L (20.5-60.0) % Monocytes % (Manual) 13.0 H (1.7-12.0) % Eosinophils % (Manual) 4.0 (0.9-7.0) % Basophils % (Manual) 1.0 (0.2-2.0) % Myelocytes % 1.0 Neutrophils # (Manual) 9.50 H (1.4-6.5) 10^3/uL Lymphocytes # (Manual) 0.62 L (1.20-3.80) 10^3/uL Monocytes # (Manual) 1.62 H (0.30-0.80) 10^3/uL Eosinophils # (Manual) 0.50 (0.00-0.70) 10^3/uL Basophils # (Manual) 0.12 H (0.00-0.10) 10^3/uL Myelocytes # 0.12 Hypersegmented Neuts 2+ Toxic Granulation 2+ Toxic Vacuolation 1+ PT 9.6 (9.0-11.6) sec INR <0.93 APTT 22.3 (22.3-36.2) sec Sodium 139 (136-145) mmol/L Potassium 3.7 (3.5-5.1) mmol/L Chloride 103 (98-107) mmol/L Carbon Dioxide 26.4 (21.0-32.0) mmol/L Anion Gap 13.3 BUN 12.0 (7.0-18.0) mg/dL Creatinine 0.90 (0.55-1.02) mg/dL Est GFR ( Amer) >60 (>=60) Est GFR (Non-Af Amer) >60 (>=60) BUN/Creatinine Ratio 13.3 Glucose 120 H (74-106) mg/dL Calcium 8.4 L (8.5-10.1) mg/dL Magnesium 1.7 L (1.8-2.4) mg/dL Total Bilirubin 0.2 (0.2-1.0) mg/dL AST 21 (15-37) U/L ALT 24 (14-59) U/L Alkaline Phosphatase 128 H (46-116) U/L Total Protein 6.0 L (6.4-8.2) g/dL Albumin 2.1 L (3.4-5.0) g/dL Globulin 3.9 g/dL Albumin/Globulin Ratio 0.5 Urine Color Brown A (YELLOW) Urine Clarity Clear (CLEAR) Urine pH 6.0 (5.0-9.0) Ur Specific [place] 1.025 (1.005-1.025) Urine Protein 100 A (NEG/TRACE) mg/dL Urine Glucose (UA) Negative (NEGATIVE) mg/dL Urine Ketones Negative (NEGATIVE) mg/dL Urine Occult Blood Large A (NEGATIVE) Urine Nitrite Positive A (NEGATIVE) Urine Bilirubin Negative (NEGATIVE) Urine Urobilinogen 1.0 (0.2-1.0) EU/dL Ur Leukocyte Esterase Moderate A (NEGATIVE) Urine RBC 20-50 A (0-2) #/HPF Urine WBC 2-5 A (NONE SEEN) #/HPF Ur Squamous Epith Cells Rare (NONE/RARE) #/LPF Urine Crystals None seen (None Seen) #/HPF Urine Bacteria None seen (NONE SEEN) #/HPF Urine Casts None seen (NONE SEEN) #/LPF Urine Mucus None seen (NONE SEEN) Ur Culture Indicated? Yes Ur Random Creatinine 119.34 (20.00-300.00) mg/dL U Random Total Protein 192.6 H (<=11.9) mg/dL Protein/Creatinin Ratio 1.61 Critical Care Time Critical Care Time Critical Care Time: Yes Total Critical Care Time: 32 Attestation: Critical Care Procedure Note Authorized and Performed by: Julien Crowley DO Total critical care time: 32 min Due to a high probability of clinically significant, life threatening deterioration, the patient required my highest level of preparedness to intervene emergently and I personally spent this critical care time directly and personally managing the patient. This critical care time included obtaining a history; examining the patient; pulse oximetry; ordering and review of studies; arranging urgent treatment with development of a management plan; evaluation of patient's response to treatment; frequent reassessment; and, discussions with other providers. This critical care time was performed to assess and manage the high probability of imminent, life-threatening deterioration that could result in multi-organ failure. It was exclusive of separately billable procedures and treating other patients and teaching time. Please see MDM section and the rest of the note for further information on patient assessment and treatment. Discharge Plan Discharge Chief Complaint: OB/Uterine Contractions Clinical Impression: Headache, Severe pre-eclampsia Patient Disposition: Admitted to [facility], OBS Time of Disposition Decision: 00:12 Condition: Fair Prescriptions / Home Meds: No Action (DME) blood-glucose meter [[employer] Verio Reflect Meter] Misc MISCELLANEOUS levothyroxine 75 mcg tablet 75 mcg PO DAILY ferrous sulfate 325 mg (65 mg iron) tablet 325 mg PO DAILY omeprazole 20 mg capsule,delayed release(DR/EC) 20 mg PO DAILY cyanocobalamin (vitamin B-12) 1,000 mcg tablet, sublingual 1,000 mcg PO DAILY sertraline 50 mg tablet 75 mg PO DAILY Creon 36,000-114,000- 180,000 unit capsule,delayed release(DR/EC) 2 cap PO TID Rx Instructions: administer with meals and/or snacks insulin glargine [Lantus Solostar U-100 Insulin] 100 unit/mL (3 mL) insulin pen 10 unit SUBCUT DAILY insulin lispro 100 unit/mL insulin pen 4 unit SUBCUT .BEFORE DINNER Print Language: Sami Referrals: ROLA SANTIZO [Primary Care Provider] - 1 week
[2024-01-12 23:49] LABS: Creatinine Urine Random 119.34 mg/dL (20.00-300.00); Protein Creatinine Ratio Urine 1.61; Total Protein Urine Random 192.6 mg/dL (<=11.9)
[2024-01-12] MEDS: LABETALOL HCL 20 MG/4 ML SYRINGE IVP (23:49)
[2024-01-12 23:53] LABS: Bacteria Urine NONE SEEN #/HPF (NONE SEEN); Cast Seen? NONE SEEN #/LPF (NONE SEEN); Crystals Seen? None Seen #/HPF (None Seen); Mucus Urine NONE SEEN (NONE SEEN); RBC Urine 20-50 #/HPF (0-2); Squamous Epithelial Cell Urine RARE #/LPF (NONE/RARE); Urine Culture Indicated YES
[2024-01-12 23:54] LABS: Partial Thromboplastin Time 22.3 sec (22.3-36.2); Prothrombin Time 9.6 sec (9.0-11.6)
[2024-01-12 23:55] LABS: Alanine Aminotransferase 24 U/L (14-59); Albumin Globulin Ratio 0.5; Albumin Level 2.1 g/dL (3.4-5.0); Alkaline Phosphatase 128 U/L (46-116); Anion Gap 13.3; Aspartate Amino Transferase 21 U/L (15-37); BUN Creatinine Ratio 13.3; Bilirubin Total 0.2 mg/dL (0.2-1.0); Calcium 8.4 mg/dL (8.5-10.1); Carbon Dioxide 26.4 mmol/L (21.0-32.0); Chloride 103 mmol/L (98-107); Estimated GFR (African America >60 (>=60); Estimated GFR (Non-African Ame >60 (>=60); Globulin 3.9 g/dL; Glucose 120 mg/dL (74-106); INR <0.93; Potassium 3.7 mmol/L (3.5-5.1); Sodium 139 mmol/L (136-145)
[2024-01-12 23:57] LABS: Magnesium 1.7 mg/dL (1.8-2.4)
[2024-01-13] VITALS (80 sets, daily range): BP systolic 94–142; BP diastolic 53–93; PULSE 24–113; TEMP 36.2–36.7; O2SAT 90–99
[2024-01-13 00:04] LABS: Basophils Abs Manual 0.12 10^3/uL (0.00-0.10); Lymphocytes Absolute Manual 0.62 10^3/uL (1.20-3.80); Monocytes Absolute Manual 1.62 10^3/uL (0.30-0.80)
[2024-01-13 00:05] LABS: Hypersegmented Neutrophils 2+; Myelocytes Absolute Manual 0.12; Toxic Granulation 2+; Toxic Vacuolation 1+
[2024-01-13] MEDS: MAGNESIUM-BOLUS FROM THE BAG- 40 GM/1,000 ML IV.SOLN IV (00:15)
[2024-01-13] MEDS: 0.9 % SODIUM CHLORIDE 1,000 ML 50 ML IV ×2 (00:15→18:29)
--- OUTSIDE RECORDS SUMMARY | 2024-01-13 00:31 | XMS_ITS | CCD ---
Author Organization [facility] Inform ion Partnership [facility] Care Team Providers Care Director Special Education Name Role Phone Maria Guadalupe Powers Unavailable NadiyaAydee anderson Unavailable Perla Márquez Unavailable Shun Hill Unavailable [phone] MD Shun Hill Attending Provider DO Irma Burt Primary Care Provider MD Shun Hill Attending Provider DO Irma Burt Primary Care Provider Shun Hill Admitting Unavailabl e Irma Burt Primary Care Unavailable Shun Hill Attending Unavailabl e Shun Hill Attending Unavailabl e Shun Hill Admitting Unavailabl Irma Broussard Primary Care Unavailable Shun Hill Admitting Unavailabl Irma Broussadr Primary Care Unavailable Shun Hill Attending Unavailabl [...] IRMA Attending Unavailable KD, IRMA Attending Unavailable LUEK, SAGAR Attending Unavailable Medications Current Medications Medication Drug Class(es) Dates Sig (Normalized) Sig (Original) amoxicillin 500 mg oral capsule (2 sources) Penicillin-class Antibacterial Start: 07-26-2022 take 1 capsule by mouth every eight hours Amoxicillin 500 MG 1 capsule Orally three times a day for 10 day(s) Jul, Active amylase 756508 unt / lipase 73287 unt / protease 410578 unt delayed release oral capsule (3 sources) Start: 04-06-2023 take 2 capsules by mouth three times daily at mealtime Creon [id number] UNIT 2 capsules Orally three times a [...] 1 tablet by mouth twice daily Sutab 2126-991-990 MG 12 tablets the first dose the [...] 5 day(s) September, Not-Taking 84 hr estradiol 0.38865 mg/hr transdermal system (4 sources) Estrogen take [...] URINE PROTEIN 170 mg/L High <120 [facility] Comment on above: Performed By: #### U PCR #### [facility] ([id number]) [address] [address] [place] [address] U/PRO/PSYCHOLOGY CLINICIAN RATIO CALC 0.17 Normal <0.2 [facility] Comment on above: Result Comment: Neph rotic Syndrome is associated with ratios >3.5 Performed By: #### U PCR #### [facility] ([id number]) [address] [address] URINE CREATININE,RDM 98.06 mg/dL Normal [facility] Comment on above: Performed By: #### U PCR #### [facility] ([id number]) [address] [address] COMPLETE BLOOD COUNTon 09-16 Erythrocyte distribution width (RBC) [Ratio] 13.0 % Normal 11.5-15.0 [facility] Comment on above: Performed By: #### C BC, CMP, FEPR, 2532-0, 3084-1, TSHR, 2276-4, 2284-8, 2132-01 #### [facility] ([id number]) [address] [address] Hematocrit (Bld) [Volume fraction] 34.6 % Low 35-47 [facility] Comment on above: Performed By: #### C BC, CMP, FEPR, 2532-0, 3084-1, TSHR, 2276-4, 2284-8, 2132-01 #### [facility] ([id number]) [address] [address] [place] [address] Hemoglobin (Bld) [Mass/Vol] 11.9 g/dL Normal 11.7-15.5 [facility] Comment on above: Performed By: #### C BC, CMP, FEPR, 2532-0, 3084-1, TSHR, 2276-4, 2284-8, 2132-01 #### [facility] ([id number]) [address] [facility] [address] [place] [address] MCH (RBC) [Entitic mass] 30.9 pg Normal 27-34 [facility] Comment on above: Performed By: #### C BC, CMP, FEPR, 2532-0, 3084-1, TSHR, 2276-4, 2284-8, 2132-01 #### [facility] ([id number]) [address] [place] [address] MCHC (RBC) [Mass/Vol] 34.4 g/dL Normal 32-36 [facility] Comment on above: Performed By: #### C BC, CMP, FEPR, 2532-0, 3084-1, TSHR, 2276-4, 228-8, 2132-01 #### [facility] ([id number]) [address] [address] [place] [address] MCV (RBC) [Entitic vol] 90 fL Normal 80-100 [facility] Comment on above: Performed By: #### C BC, CMP, FEPR, 2532-0, 3084-1, TSHR, 2276-4, 228-8, 2132-01 #### [facility] ([id number]) [address] [address] [place] [address] Platelet mean volume (Bld) [Entitic vol] 9.4 fL Normal 7-12 [facility] Comment on above: Performed By: #### C BC, CMP, FEPR, 2532-0, 3084-1, TSHR, 2276-4, 2284-8, 2132-01 #### [facility] ([id number]) [address] [address] [place] [address] Platelets (Bld) [#/Vol] 181 10*3/uL Normal 150-450 [facility] Comment on above: Performed By: #### C BC, CMP, FEPR, 2532-0, 3084-1, TSHR, 2276-4, 2284-8, 2132-01 #### [facility] ([id number]) [address] [place] [address] RBC COUNT 3.85 X10E12/L Normal 3.80-5.20 [facility] Comment on above: Performed By: #### C BC, CMP, FEPR, 2532-0, 3084-1, TSHR, 2276-4, 2284-8, 2132-01 #### [facility] ([id number]) [address] [place] [address] WBC (Bld) [#/Vol] 11.3 10*3/uL High 4.0-11.0 [facility] Comment on above: Performed By: #### C BC, CMP, FEPR, 2532-0, 3084-1, TSHR, 2276-4, 2284-8, 2132-01 #### [facility] ([id number]) [address] [place] [address] COMPREHENSIVE METABOLIC PANE Charles 09-17-2023 Albumin [Mass/Vol] 3.4 g/dL Normal 3.2-5.3 [facility] Comment on above: Performed By: #### C BC, CMP, FEPR, 2532-0, 3084-1, TSHR, 2276-4, 2284-8, 2132-01 #### [facility] ([id number]) [address] [place] [address] ALP [Catalytic activity/Vol] 71 U/L Normal 39-130 [facility] Comment on above: Performed By: #### C BC, CMP, FEPR, 2532-0, 3084-1, TSHR, 2276-4, 2284-8, 2132-01 #### [facility] ([id number]) [address] [place] [address] ALT [Catalytic activity/Vol] 11 U/L Normal 0-31 [facility] Comment on above: Performed By: #### C BC, CMP, FEPR, 2532-0, 3084-1, TSHR, 2276-4, 2284-8, 2131-9 #### [facility] ([id number]) [address] [place] [address] Anion gap [Moles/Vol] 11 mmol/L Normal 5-15 [facility] Comment on above: Performed By: #### C BC, CMP, FEPR, 2532-0, 3084-1, TSHR, 2276-4, 2284-8, 2132-01 #### [facility] ([id number]) [address] [place] [address] AST [Catalytic activity/Vol] 13 U/L Normal 0-41 [facility] Comment on above: Performed By: #### C BC, CMP, FEPR, 2532-0, 3084-1, TSHR, 2276-4, 2284-8, 2132-01 #### [facility] ([id number]) [address] [place] [address] Bilirubin [Mass/Vol] 0.3 mg/dL Normal 0.3-1.2 [facility] Comment on above: Performed By: #### C BC, CMP, FEPR, 2532-0, 3084-1, TSHR, 2276-4, 2284-8, 2132-01 #### [facility] ([id number]) [address] [place] [address] Calcium [Mass/Vol] 9.0 mg/dL Normal 8.5-10.5 [facility] Comment on above: Performed By: #### C BC, CMP, FEPR, 2532-0, 3084-1, TSHR, 2276-4, 2284-8, 2131-9 #### [facility] ([id number]) [address] [place] [address] Chloride [Moles/Vol] 104 mmol/L Normal 98-109 [facility] Comment on above: Performed By: #### C BC, CMP, FEPR, 2532-0, 3084-1, TSHR, 2276-4, 2284-8, 2132-01 #### [facility] ([id number]) [address] [place] [address] CO2 [Moles/Vol] 24 mmol/L Normal 22-32 [facility] Comment on above: Performed By: #### C BC, CMP, FEPR, 2532-0, 3084-1, TSHR, 2276-4, 2284-8, 2132-01 #### [facility] ([id number]) [address], [address] [place] [address] Creatinine [Mass/Vol] 0.46 mg/dL Normal 0.40-1.00 [facility] Comment on above: Result Comment: METH OD TRACEABLE TO IDMS STANDARD Performed By: #### C BC, CMP, FEPR, 2532-0, 3084-1, TSHR, 2276-4, 2284-8, 2132-01 #### [facility] ([id number]) [address] [place] [address] eGFR (CKD-EPI) NON-RACE DEPENDENT >90 Normal >59 [facility] Comment on above: Result Comment: Reported eGFR is based on the CKD-EPI 2020 equation that does not use a race coefficient. Performed By: #### C BC, CMP, FEPR, 2532-0, 3084-1, TSHR, 2276-4, 2284-8, 2132-01 #### [facility] ([id number]) [address] [place] [address] Glucose [Mass/Vol] 78 mg/dL Normal 65-99 [facility] Comment on above: Performed By: #### C BC, CMP, FEPR, 2532-0, 3084-1, TSHR, 2276-4, 2284-8, 2132-01 #### [facility] ([id number]) [address] [place] [address] Potassium [Moles/Vol] 4.0 mmol/L Normal 3.5-5.0 [facility] Comment on above: Performed By: #### C BC, CMP, FEPR, 2532-0, 3084-1, TSHR, 2276-4, 2284-8, 2132-01 #### [facility] ([id number]) [address] [place] [address] Protein [Mass/Vol] 6.5 g/dL Normal 6.0-8.0 [facility] Comment on above: Performed By: #### C BC, CMP, FEPR, 2532-0, 3084-1, TSHR, 2276-4, 2284-8, 2132-01 #### [facility] ([id number]) [address] [address] [place] [address] Sodium [Moles/Vol] 139 mmol/L Normal 134-146 [facility] Comment on above: Performed By: #### C BC, CMP, FEPR, 2532-0, 3084-1, TSHR, 2276-4, 2284-8, 2132-01 #### [facility] ([id number]) [address] [place] [address] Urea nitrogen [Mass/Vol] 8 mg/dL Normal 5-23 [facility] Comment on above: Performed By: #### C BC, CMP, FEPR, 2532-0, 3084-1, TSHR, 2276-4, 2284-8, 2132-01 #### [facility] ([id number]) [address] [place] [address] FERRITINon 09-17-2023 Ferritin [Mass/Vol] 11 ng/mL Normal 11-307 [facility] Comment on above: Performed By: #### C BC, CMP, FEPR, 2532-0, 3084-1, TSHR, 2276-4, 2284-8, 2132-01 #### [facility] ([id number]) [address] [place] [address] Folate [Mass/Vol]on 09-17-19 24 FOLIC ACID 18.1 ng/mL Normal >5.8 [facility] Comment on above: Result Comment: NEW REFERENCE RANGE Performed By: #### C BC, CMP, FEPR, 2532-0, 3084-1, TSHR, 2276-4, 2284-8, 2132-01 #### [facility] ([id number]) [address] [place] [address] IRON PROFILEon 09-17-2023 Iron [Mass/Vol] 52 ug/dL Normal 50-170 [facility] Comment on above: Performed By: #### C BC, CMP, FEPR, 2532-0, 3084-1, TSHR, 2276-4, 2284-8, 2132-01 #### [facility] ([id number]) [address] [place] [address] IRON BINDING 580 ug/dL High 250-425 [facility] Comment on above: Performed By: #### C BC, CMP, FEPR, 2532-0, 3084-1, TSHR, 2276-4, 2284-8, 2132-01 #### [facility] ([id number]) [address] [place] [address] IRON SATURATION 9 % SATURATION Low 15-50 [facility] Comment on above: Performed By: #### C BC, CMP, FEPR, 2532-0, 3084-1, TSHR, 2276-4, 2284-8, 2132-01 #### [facility] ([id number]) [address] [place] [address] LDH [Catalytic activity/Vol] on 09-17-2023 LDH 124 U/L Normal 100-235 [facility] Comment on above: Performed By: #### C BC, CMP, FEPR, 2532-0, 3084-1, TSHR, 2276-4, 2284-8, 9 #### [facility] ([id number]) [address] [facility] [place] [address] Natriuretic peptide B [Mass/ Vol]on 09-17-2023 Natriuretic peptide B (Bld) [Mass/Vol] 66 pg/mL Normal <100.0 [facility] Comment on above: Performed By: #### C BC, CMP, FEPR, 2532-0, 3084-1, TSHR, 2276-4, 2284-8, 2132-01 #### [facility] ([id number]) [address] [facility] [place] [address] TSH WITH REFLEXon 09-17-2023 TSH 0.78 uIU/mL Normal 0.49-4.67 [facility] Comment on above: Performed By: #### C BC, CMP, FEPR, 2532-0, 3084-1, TSHR, 2276-4, 2284-8, 2132-01 #### [facility] ([id number]) [address] [facility] [place] [address] Thiamine (Bld) [Mass/Vol]on 09-17-2023 THIAMIN VITAMIN B1 See Below Normal [facility] Comment on above: Result Comment: NOTE [...] developed and its performance characteristics determined by [facility]'s Jordan Norbert [facility] [place] ([facility]). It has not been cleared or approved by the FDA. [facility] is regulated under CLIA as qualified to perform high-complexity testing. This test is used for clinical purposes. It should not be regarded as investigational or for research. Test Performed By: [place] [address] Wrist Hemmer: Colin Cisneros III, M.D. CLIA #[id number] Performed By: #### C BC, CMP, FEPR, 2532-0, 3084-1, TSHR, 2276-4, 2284-8, 2132-01 #### [facility] ([id number]) [address] [place] [address] URIC ACIDon 09-17-2023 Urate [Mass/Vol] 5.1 mg/dL Normal 2.6-7.2 [facility] Comment on above: Performed By: #### C BC, CMP, FEPR, 2532-0, 3084-1, TSHR, 2276-4, 2284-8, 2132-01 #### [facility] ([id number]) [address] [place] [address] VITAMIN B12on 09-17-2023 Cobalamin (Vitamin B12) [Mass/Vol] 185 pg/mL Normal 180-914 [facility] Comment on above: Performed By: #### C BC, CMP, FEPR, 2532-0, 3084-1, TSHR, 2276-4, 2284-8, 2132-01 #### [facility] ([id number]) [address] [facility] [place] [address] TSHon 05-25-2023 Thyroid Stimulating (3Rd Generation) Hormone/ Tsh 2.200 [facility] System CT abdomen w conon 3 CT abdomen w con [facility] Main [place] [address] [place] [address] CT Scan Report Signed Patient: Laura Alves MR#: [id number] 3 : 1985 Acct:[id number] Age/Sex: 37 / F ADM Date: 04/10/23 Loc: CT Room: Type: [facility] Attending Dr: Shun Hill MD Copies [...] Stan Owens M.D.04/10/2023 4:03 PM Dictation Location: [place] [address] Transcribed By: [facility] 04/10/23 7993 Dictated By: Stan Owens DO 04/10/23 7170 Signed By: 04/10/23 160 Normal [facility] HCG ( test) IA.rapi d Ql (U)Ordered By: Shun Hill on 03-15-2023 HCG ( test) Ql (U) Negative [facility] HCG,Urineon 03-15-2023 Beta HCG ( test) Ql (U) Negative Normal [facility] Comment on above: Result Comment: PERF ORMED BY: [address] [place] [id number] [facility] MARINA AYALA M.D. Performed By: #### U HCG #### [place] [id number] [facility] 03-15-2023 L Specimen: [id number] Received: 03/15/23 Status: BUSTER Alfredo Num: [id number] Spec Type: Surgical Subm Dr: Shun Hill MD Tissues: A Colon Biopsy (SURVEILLANCE BX) Procedures: Deepti CHILEL/Pierce L4 Age/ Patient Sex Location Account Attending Physician Laura Alves 37/F [id number] Shun Hill MD SPEC NUM: [id number] RECD: 03/15/23 STATUS: BUSTER RAMOS NUM: [id number] SUMIT: 03/15/23- DR: Shun Hill MD ENTERED: 03/15/[address] [facility] [address]: SPEC TYPE: Surgical DEPT: [...] The microscopic examination confirms the diagnosis. Specimen: [id number] Received: 03/15/23 Status: BUSTER Gonsalez Num: [id number] Spec Type: Surgical Subm Dr: Shun Hill MD Tissues: A Colon Biopsy (SURVEILLANCE BX) Procedures: HE/2, Gross/Micro L4 Patient: Rick Alvesy [id number] (Continued) Specimen: [id number] Received: 03/15/23 (Continued) Signed (signatur e on file) Winston Donis MD 03/16/23 1737 Specimen: [id number] Received: 03/15/23 Status: BUSTER Alfredo Num: [id number] Spec Type: Surgical Subm Dr: Shun Hill MD Tissues: A Colon Biopsy (SURVEILLANCE BX) Procedures: DUY/Yaz, Deepti/Pierce L4 Patient: Parminder Alvessay [id number] (Continued) Specimen: Received: 03/15/23 (Continued) CPT Codes 17604 Specimen: Received: 03/15/23 Status: BUSTER Gonsalezvanessa Num: [id number] Spec Type: Surgical Subm Dr: Shun Hill MD Tissues: A Colon Biopsy (SURVEILLANCE BX) Procedures: HE/Yaz, Gross/Micro L4 Patient: Laura Alves [id number] (Continued) Signed (signatur e on file) Robbi-Tyrel Donis MD 03/16/23 1737 [facility] SARS-CoV-2 (COVID-19) RNA NA A+probe Ql (Resp)on 01-16-2023 SARS-CoV-2 (COVID-19) RNA GEORGE+probe Ql (Unsp spec) Positive [employer] Other HIV 1&2 AB/AG Screen (P24 AG )on 12-13-2022 HIV 1&2 AB/AG [facility] Hepatitis B surface antigeno n 12-13-2022 Hepatitis B Surface Antigen Negative [facility] No Panel InformationOrdered By: Rae Agudelo on 12-13-2022 [facility] Rubella IGG immune statuson 12-13-2022 Rubella immune IgG <0.90 NON IMMUNE [facility] Syphilis Total(Unknown Syphi lis Status)Ordered By: Rae Agudelo on 12-13-2022 Syphilis Non-Reactive [facility] COVID Quick Testingon 2022 Result Negative [employer] Other COVID Quick Testingon 2022 Result Negative [employer] Other COVID Quick Testingon 2022 Result Negative [employer] Other COVID Quick Testingon 2021 Result Negative [employer] Other Consent for Treatmenton 05-21 Consent for Treatment [id number] 0 [id number]#[id number]:127 [facility] Coding Summary.on 05-28-2021 Coding Summary. CD:[id number] HYv4bHl+PGhlYWQ+PE1 DBVMjB35wxLLoaZ7QX0 iMIM6LNWNMQBSCSI3IP R7ygQJ4VQamS3NfjdXa HsjzjPUpBB94UTq6KBN 4jDdbSOjdkC1jjUWrM1 h4MdWyQJ75qT42FGlyC BNtToA0CwNlmswfnRTz N8ayCtFzvGYzFsx+PHR hYmxlIHdpZHRoPScxMD AfTqQdaMyjZR2tNc5fI GVyLWNvbGxhcHNlOiBj j9wfRAVoMIhpJP2tfGa lK7NtlMK2WFZzi3q2Ne 48dHI+YHUwXFT3jUfxH Wtgi990OcXek0miZBI8 pRDkKKkxGXC5K13io8T 0VVMiWRXvSDG5cOR3zN 9gwEjujnnwG1ZkaGKcB vW6BMH7hJDpzJ7lmJld iudixW3fRwj+M96CTF2 BUFDMBY8QHay0U0FlGl wvdHI+NW70CZSsAX13x ZWadLOgx3rzySo8DuFg PTWbOOP1vBlxQIeaw7T bMVTaG33kxGUcf7A5DR MxbMdmzTAhKtYqgSX6j O8yOCoqsyits6qdnabt Ogxkt5wyho67pQ51A83 iCNcyBDMhLQJ1VJLjQY QkfEtvye2wvK4uDl7+I Wqzb8gtt2awpWc5UlXa MGYwntTkkWcbNVY6k5J cLh54K2NklBjhg9JrVp l1hk73oISpb0B2aRB5V MgdJTQjdS4kWXhsAfF0 SDCzGqEikN38gNThEFe jDx2ppKntpTawSC5tQC DwzrffDFSecC0jGVPby HRxuXolOW8vXOLgdjpi x040FhEpUTR2PGVmfJB tN1CruN2uTmQjBEUcAK IiM1AowDUdYZviU618I NcjVsQ4SWOykzYmL6Hn UJNmvAqoMrG8q2Z9Mg5 Xj1MjhewgMLW5JCxmXX BjHzX0VzAdQqF3W3HqW lv9WCLjwZxcKX2dG9Lp TPWaiscqmdoutPX2JXN eORTrjG61gSPqUDahOo 5za9D0d337VZQjRGRbm R86Jk5dsDhwIFTboILV sZ3febcsh9fafyjsLlM vUYMhXPx2ZOd1GHOesT ehDcVfNWM0FtA7NCJ7n ZMjuB4ucSgkuvqksY1p Oyc+V59ifM4hERK8TWV 3pzkzTANiulUmCM73NT 59H3SnKlcrqJYtwHW+P EYxdqFlgYsfDB5hOqVv m7yzf4CpFQcuI1GsTPI uVUxsLxz1RHLsUUL5pN L1aV4fIUXxKZhzp0G9p SG0Z9UyctIgss1px1hr QHEjOChaA11dxJEpq7A 3KFBxqSF0JYLjiVldNn SeyG25Mxp+PGNvbGdyb 1IiYjcwq8qwe2svzHz0 IjMwJSIgdmFsaWduPSJ 9e0KrRg66A40xKEnfLZ RoPSIxNSUiIHZhbGlnb a9nwT2hFk6+PGNvbCB3 mJP5pM9vIJWlNbF6YOq bB025PqGshBQbQqjdo0 wjj6fxtKp7KqZfMWDhz lGwdRlyBMI1l1ChWj94 H40pBCoaQAHjKPEmEAT yHMPgoSxgbu7koW1rRj 8+KU6yt3pksd25vW91l HI+LCWtJHY8sKqxIZxo MOXjbE5hRKwzUmP6BCW iNgQnqT63mSKaKJvcNd 0dzDxdaEjtFX2vLJMuz bykt520VlDew6xcGMVw dSSzFXmuSPR5H66ho8Y 3QLNuFCIfLXX4nCI0rP 1hbGlnbjogbGVmdDsgd hLvtQezREfmCJurJ656 IHRvcDsnPlBhdGllbnQ zIqGvTRr1I2WsMym1BX RbgExnYC3bpYMsQNndU n9kbBxavKhsNC8cWDUy doozk161JfQwm4zpECJ cmMCuAEmhCGT1X78op3 D9PIHkJHYjOHQ9gFD7k Y4xcVqjkowzrYNfhAng tqBbdZjzIUjeYRhxZ46 6IHRvcDsnPkJpcnRoIE DrdCR5WQ74AI53tRMqd 4N5iYK9U1BeJZXkimpd ebhckCL3ABHyZKIctF9 0Jn3wgJimSq5qKKFuPB F9PIFevBRpK1SuiQ0zT tLiXGArUENmO7LtzDHy OYcmC031BQvxAsN3CTL xslZiB3WiQBWdbOoxQb J8x9W9Sn2SJ1N8JM24X E63oPNyk5W5oUZ2I9Iv FGVmhrtjoqgwtGB2AEE hEVLpgS95Xz3nwSavRy 2pJRFpHSS0GYMiyJCiN 9ZpxO4qEnAjSIIlPCRr G6QciCDbWCqhG414JCq pCvJ8DEKnnwIqF8FyKA PwdEwzLrN5g7E2Gq1AW Eg6ET97BN57kHBzf9L5 wQS5S4FzLJTbuwbofzj ewGD4AJOfEMQxkH09Sh 9veDopYc0qOWCvLLS0Y QJusAJnW2IxvI3cBhXa VGRtIENzR0NmjLVwFYw eW035XTbfNnS0MHOtxm GoD5SpONIqfNwfViU2z 2Z5Nv8PJKSwQZ89SVK1 rHP2VH45ZY14G3EvWor vdGFibGU+PHRhYmxlIH dpZHRoPScxMDAlJyBzd KndDF4dHj2hOJVsJTNm oWyppDVwQuVdo3qhNAL sHFvpRC6rbMktY3MlnI A9SUFpi0d7Qu71D76vZ 3JvdXA+CKMntDM5dFT7 rY4iWiDhKgJ7ORnmQ73 5NqQrvYWeOabhg9xaa5 wmnAm3MiR7YVSrctXdl JzjBDR3p3OiGe28F54c IHdpZHRoPSIxNSUiIHZ ioPwecq4tpA9kLi1+PG PxbZO2vFB4sZ3aNoBsJ jM1RZenE444YjAyzGMw Ixouy0kak3nouUi4NsV cQKInveQyvCbeBIE3j0 WzYm13U1WhhEtvj1AyZ ku4bu47vIIgm6D5dDA1 U8ZhSOAlasfkwAWicBy dCX4cXPGtiwvqBBZhlH 0vZSCqK6x7DeZnVxR3N PjfX2KytvL2ZLEoeWRq OVfhVEN6Y51zr5E0HPL sQNBoKQO9zOJ9lZ9xvP lnbjogbGVmdDsgdmVyd WyzMHlrMGhfI649JLRa gPyhXVWjiN7eYYWjlUS wpEmcUQ7zNPEvdozvZi cWNS9XBILGUbngOLjFV GOGGXWILY63WM09kOWx z5G2sMA2Y4IfGECqwaw mvfbokAN0THOlFOXruX 30jYVgCRdlJn7nu5P5s 314ITNzWGNeoM96Um0y vNojRDDgnTDEoP0bvot sj0hutwvvWcHiCPDdIX q5JQg8RTKncHzcOoSoP JT1YtT6PDE2dSJooH3f vNqurrzyuX4mSkc+MTI cCJvcXEr8UKtjjME+PH MsDGL5sVewHChwPHWfk E9jKEFjT0t7VyRaKnF1 BFmkB4PwNJVajprcWw3 2uH2mXnXcVzR8ZEizW7 AiyoD1APAhvKIsUEypH TR0Y73tw8H4AXJgQQRh AZW9lOZ3lD9tlRjevug gbGVmdDsgdmVydGljYW akWIykZ079USYixPiaB rT1SBtxMZPvNI51EC00 pDKsj2I5qRU5E5GkGZV arkbvuwtgkGM1XNRuRE SlaJ70yHLqRRbiRd7ya 7C6q205GRPeXGGilQ75 Nr0wrGwvSAArtQBXcP6 paqknf9fbzjfiLqKuXI VeFTf4STh5HACvwFvuG cImHSN6XmG7UEY1hJSr mE0etGhhypujcX8eNry +RlUfBGytZI37AF71gD Mon7L9fJD0A4QiOYKoa pscxfedlID9CRNjQEYc nY18pUKnHSdmCr4gb6P 8a472XRFxSLQqvL85Cn 9jnWpjNSNhfZNHtY2dj pwnu9xoxtyeNaMrGHOc RQu6LDc4YUCevRehHwJ lPVB0MhV4KFW5oOVoaP 7rdPgvxrixkG6yQnp+U sTyfCLadL9eBQ21IA93 X5AuXebwzTEjkFT+PHR hYmxlIHdpZHRoPScxMD IjAqNshDanBA7jKi7jL GVyLWNvbGxhcHNlOiBj a9gvURQbTDktEB7rfSt zG4PemZT0MOZlf2s3He 67S18sB7NeaVO+PGNvb PJ3nKW8eO3gNlZzDjD7 OJdvI902ZcYbwXCiBfl pj9hek9mboSo2NwZkJQ MeeoMqgNhoPBO4g6DoQ e94B71sQTnsDBUpUWOx NPUjDJXjaIbvhp8ktU6 wIi8+RTSsjTF6pHU2kE 2zLgBoCkI9VYiuV723L tQfwQTpUndnN31eZ0Dd dXA+WYJsOmy8QPZijPo jAX9zlHCvIDoiQj2mLG Y1UhNzBoIiFEquB9AbS OUtfoygfmhhwOT0JGIx KOHvbM39Kh7zsPrsXj5 jKHKzDFZ7CSYjcPUcZ2 EqtD3pRxZkHYLlHRBxT 5XoeGYqCGjtZ675OJvz WcX6FIVgrvVvM7HgBKN xaJwjNaR6y9R5Bp4KvO ohvOAfWL6fJoKhMFq2I 6CiVoi8VGBmbEkgAK2s qJRbLLygXv6bkSwwtSp mHK2hSKZimuzlk236Ne Idu6fsBQQteRMgCTzcL PK8M86mm2N8LIFnBEZp OYK4iOZ4uR7lqQmqpuk gbGVmdDsgdmVydGljYW zuFLwkZ872QYDhfMryN dDLEgi7I5CaVuh2VBXq qXbjGI9yuFCbREuhYr3 pqIqdoYlnHC5nQPHudp rto809JtSyf3ktAOWwf XQvDHnqGQO3V40sc2Y3 KANnDJOyENK3lZJ1kW7 hbGlnbjogbGVmdDsgdm XgjBmuYHfpQNkrS547B CEwiUuqEy9CGej2S3Bt Xnu2EIRuaKsaBJ8dvWQ zJEfbFi4btKapuDftYJ 1yBUWnmbhuy880IhVjk 4goCLEerTVeKOngOBC3 V20lt4K4TLZzFTMuFZC 8qQM3nV6kxJizmaskvI VmdDsgdmVydGljYWwtY SbkN802SQCceVjzSdXm eWVyOjwvdGQ+MS44tt8 6I3JtZdwzAyt5WXQoBS M7yQS1aX5bOQFnAEajl 2F2nWU4N1XspiWxhs3z b2xs (more content not included)... Normal [facility] Priority Order-Juan 2021 Priority Order-STAT Comment Invalid Interpretation Code [facility] Comment on above: Result Comment: Rece ived Performed at: [facility] [address], [place] [id number] [facility] Mina Jones Performed By: #### S ARS-CoV-2, GEORGE, [id number] #### [facility] [address] [place] [address] SARS-CoV-2, NAAon 05-25-2021 SARS-CoV-2 (COVID-19) RNA GEORGE+probe Ql (Resp) Not detected Invalid Interpretation Code Not Detected [facility] Comment on above: Result Comment: This nucleic acid amplification test was developed and its performance characteristics determined by [facility]. Nucleic acid amplification tests include RT-PCR and [...] detected) result in this assay. Performed at: [facility] [address], [place] [id number] [phone] PhD Shalom Gonzalez Performed By: #### S ARS-CoV-2, GEORGE, [id number] #### [facility] [address] [place] [address] Family Medicine Phone Visit - Telehealthon 05-22-2021 [...] 6 months ago. Has been using DayQuil [id number] with moderate improvement. Review of Systems Fatigue: [...] only communication with the patient located at [address] [place] [phone], with no one else. If it is [...] [place]) Telephone Est 5 to 10 minutes [id number] 2. Fatigue (R53.83: Other fatigue) see above plan, rule out covid. Ordered: Rapid COVID Antigen ([facility] [place], [place]) Telephone Est 5 to 10 minutes [id number] 3. BMI 27.0-27.9,adult (Z68.27: Body mass index [...] 1035F Telephone Est 5 to 10 minutes 72107 Follow-up With When Contact Information Irma Burt [...] Methamphetamines, Pre (more content not included)... [facility] Comment on [...] height. This can be done either in Spanish ([place] or metric measurements. Note that charts are available to help you find your BMI quickly and easily without having to do these calculations yourself. To calculate your BMI in Spanish ([place] measurements, your health care provider will: [...] problems. ? BMI can be measured using Spanish measurements or metric measurements. ? To interpret [...] Reviewed: 03/20/2018 Elsevier Patient Education ? 2019 [employer] [facility] Physician Orderon 04-27-2021 Physician Order [id number] 8#1.00CD:127 [facility] Coding Summary.on 11-04-2020 Coding Summary. CD:[id number] HEl7uPj+PGhlYWQ+PE1 DTZNoE58xgQNnbU8ZP7 nCPO7KSETPXFHNFJ8QV P5vuYV1XCgnE6OxyzOu CucnaFZpPO58GZc9GDL 2zXqyTPijpD2yyXGgR5 e2XpBdJW61vY27CXagA RCvYqY3KpTgvjjnoFOc O0vuWxHzeAJrVvu+PHR hYmxlIHdpZHRoPScxMD NbGiDfaZvyGB8eMp6wP GVyLWNvbGxhcHNlOiBj u2jlSDSfWVjuFV4xqYn nQ1ZazUT2DLDom9w2Qr 48dHI+MAQpNNF2qUhtB Jqtv821ZrIew6rcFZS3 jLJdAKcwVTD9H79fo4X 2AYTlEJHpVTR4dKU2aN 4rbQtqmywrK3UdaVChF bB6NDQ3kAQvqE4qoIzu ermrbL2wFwd+K63IOT7 POMKKOO1LIzd1K2FqHi wvdHI+TY62CWItKU30e KBemNKak8lbtBr9CmXt GXVpHWO3sQshPWluq9Z pAMHkO67mnVZlv0N7JB DmiBgxiGNbZpGojRY5w S4fDHbkkoijo0dbbrvt Iadln8czka38bC41M17 lQXnvPPUyEIX0NJQpLJ FhwGdjyk7eyP3bWd6+I Umoi8zec4juhLa9AsBv EXYndhIvrZitECH5r3H tCx10Z0StrBzpi2RtYm b0tw98kDAgm5B6kHN4N WqeAJTlqT3dHZpdPlM7 VHDlXuZccB52nSPnEXo sFq4gtKfooAgeXC3eZP BfinhhOLEegC8aRVPcw AGdtMusHU0kHDItjthd m254JfFzVHW5RAEymMW eC1IscR0jZbYyGAJbUS AdS6ZclEPgRHkxH588E QutVyM2WTIcqvWnQ8Yf GMQzpNuwCqV7m3X6Nn7 Mo9MhjsdxPVP4OGdiOF J6NuE6UxNyGqS5Q4KqF uw9QISttZmfFG6jE4Km RTYcdywccfkcfSD0FQA bSKOsxX31eTLeHOffRy 7dj0S2e012FXVvBKYga N17Yx0lrGviOPVpaBUK hN5osqpnq4zrodspMqP rVGNcMHz4RDr4IEHdbQ ziRfMjAZB4GaC7WIR8c CSykM9yiVzbtovvvF0i Oyc+K49liD2hRPN8NYY 3lzmwZWByerAdVT26OS 24Y7QzDimejMTqjFE+P HOgatNqhAhjSS5vViPs f7xwu9UyZJchF5JrTRD yUSwdMqq1RMEpHZY6yJ F0fM8nMAXeKDexg9F5n HB5R0VjgsBhmh7fy5po CPUfHHbuS74fyGSex9X 4IUFtaYV0AIPjkTgiQa PufM82Ylx+PGNvbGdyb 1ErQcbfk4hvz2zvxTb8 IjMwJSIgdmFsaWduPSJ 6i8AzXq37U65aEHclQJ RoPSIxNSUiIHZhbGlnb c6amS5tLj6+PGNvbCB3 aTK6jF5hGOKtDlT0ZGx pE700MpNcdORvVlbvp1 dgt6kkaRb3YoPwBVRil tZbeZdzRMD5d1XvCf20 A97pQQrkPYWiARNiZTZ zRSXboZotjj9gpA0fAo 8+EB2nx3jzul99mC97s HI+IZCwPDK2dPypSSpi HJAcpL4bWAtfZaD7ABH nPqUpoZ33hWFrRVafLf 3otJxduYhmYJ9oMRIsr vwoa126JiQeb9pjNSBb kHCtDJjmYAG8L44eh2V 1CKArXDEvKFY7pXZ0yM 1hbGlnbjogbGVmdDsgd sRqbXpgHYinFTcbV344 IHRvcDsnPlBhdGllbnQ xEfQcOZg1N2XzKyr3OB BcbLkbMX9yuDHxFIhwX e2haGtayXqxFC0dEYUa wkcgd280YbRei9lhSNM fgSInIEsgDBC7C49qz4 N3TKRtEZMaVQM8cAX9w C8reFrgdalzeNCqjLbw xbHeeEizJLcySYgvS74 6IHRvcDsnPkJpcnRoIE VidYD0CW38OH42wZZyp 1N9cXI0F8RtKRRulbyu qbpylAQ5UIZtDIRmcT0 8Lr8mxZrySl3eIJPhCO C2STQdmOJsT4GimJ8oM iDdUHIjKHGoS2HyhOBh CTpgU453KLfdRfQ9EWA tjxIdD6QdMCMbkSykAg U7u8V8Il4VL3H3SQ87B U95hSHpd0Q7nUO1V3Pn NLBnvztftncoiME8EZJ pQFEkjW51Qj3bcSelDi 7pKKEiUUV0MDAmrCKiR 9ZqbM0eBxLyEWGeRAFj N4VdnCGxVYeqO685CMo xJgM6OXIbnsVfD3JsJF GoeEnsJyL8h0B4Au5YH Tq5UX33OA87hVVql1O8 oJG8V5EiEOVvapvdsaq abUP1TPDzSUKeqD39Ko 8upXyoPy3tMBMtLHC6Y CCqxCFtI3SlgJ3zXiBr PMHeGKDbK9MvcNBhHBs pZ913PErzUlP9RBYigr JuC7ZfJNJttDqxEaL5z 5D3Sm7JZAUkLB05TXY5 aMM3AE26TU22F1JzRid vdGFibGU+PHRhYmxlIH dpZHRoPScxMDAlJyBzd BsfKO0xPz9aZJWrBMTz xLvhiCUoDfAoz5cwWBD zAOxjTG2kgJoyD6IoeP C0MYIfb7i1Nt43P56rZ 3JvdXA+XVRxrCN8pXK5 rG3xMyIgUpO0VPiqV06 3BgYlzKItTbdfz7aey2 utbKo9BpK1MURbjwZgu HifRRP0v3BlUo73X73k IHdpZHRoPSIxNSUiIHZ okYhpvi1poP2sNs4+PG GcmSX9bDW0oK4zTtPmD sQ6WFnbH273ZfXouYQs Vssmq0tbv5otvNo7UcI mYZOhmvUogJxoBIK1p4 TyHl29Z4YwhWgln7AkV dx2gj92uBHju9R0qBI8 B4YsSUHnwzcokJWsgUy mQC7sNNCiqsopCCHkwD 3qIWYbT5i1DbOuKiO5B JrdP0KkprU0ECWtvUPs YBjlHPG8X85de9T0LJW tAUWjBZL8oCG9uQ3hcO lnbjogbGVmdDsgdmVyd PcaKPojESypR447NTPy zKewDRDxnK5yVAGteIP ivWeoCO7vZJOxycuyTm tBXW4VMYRJZkneJUbBT ZMTFJRZBY51WO53rTKg u4B8nMY3W7TmOTEfyoo xllfgoOX6VWOpXZJdyX 40jSIePEpxYm1zb4P2x 925CYRtGHVjkE92Ba4n fVvsJHWdvQHGoM9mozw rc5flrouhXzVdTTOkEO v7KHg4NSBorOfoOiXvQ SX3GmL9OWE0lKUhuT0r pRgoidbohD8cWmi+MTI uSQemYRf2UVyytXJ+PH KhKEI2tXjuRUmfEFKro X8vIPCsM3z2FiDpDgL9 AQvdR4CaVEPobbhlZw9 4lO6dFyLxZcA3CYyvF0 ZvneJ2HFEbpIPiPLszS FK7E14up6L8IFMqLVNy GRI7tJN9vY9fzKjwilb gbGVmdDsgdmVydGljYW otHRqlP111UYUorWcwH dP3FBdmIFLjLX51OI28 bZIqi1N0mGZ3U7UkWLG ipdxlvaniiWQ0QDSgYX YgiS35bCKdKSakMd2kw 2R1o164HGMuWBWacX76 Ir8ziUxaNFDuqEWUpY5 crmilo3wnlemdMnJyCC OnVWi0ZUz4KQGibVgwT nQdTRJ9FwI6QUF3iKYx hV8pmXevctpcaX7gIdi +XzTcRZvqIA30FO70aB Uwa4B2zVK3H0JzHENvb nyevcxnpSN4XTUvPAKc bL15eMTfLFcgIc3dg9D 7h429SISfFSYtaX21Am 7tdKpvAJHdeWZLqP8rs amdw1ejiyweIxNcAJMg BGl2SAy8QMZfkQcaYtL aVAK8RyJ4UFP3rZGqyQ 1llRjqxfkxpQ0wRml+T 2K7aZC0kIVekFxlyHH+ RL47we79P1WkKcjrPrk 2OHGhQYE0wMI4bO7cXJ CuEBsqh2D2cXB6J7Asi zTshr6jl0zbASKuSOqe U80raZHka4R7UKSdjBX 7LQDdiSswPxBpjK90Su c+LMRiwUsep5YcQjjoi 0vch3wzqWy8RxYkCGEq csNqwAbnAQL7i8ZfAm3 4S11jWFcbOAHhXWEvRK DfCVPbhVwlqb3eqM2xQ i8+YJMycNS6oXK8rX6t YoMgHmG4ZZgiS986QmO hoQLfVehlj5iae3pdgZ i7ToUhKMChhaGqsFkxR HD5j0BaIf63S5KhhDrp m0VqFuq6vq15wPJcq1K 3bPY3J1CyZZQhaycjeE WbpWwpJU9mZELpzqohJ FKpuV8jZSNrK4a0CdTo XmC1YHlwB1BkizF1SOA tiPTqIUYmvVIQkQ6myj cry0xjskogGrCmTSNvM Kw3YMx6VWPabJmbIsTh MBP5QuZ5CBQ5uVPokX2 nyZuphuuqyP4eKpi+UG s1z1hudJCoBC1hbRH6F I78GZ74aPPtf0V9dEM0 E9HxGYNnziefsslorKM 8YNZkMACguZ03Sa3njZ fyBc3pGCStMZN1PKSze IDeO4RxfN8vDmChDIAn OGAgU2PaxFUnKUjkM39 3NYntYcY8HAWtfgFzE6 MdWEBcnMgiMsA9u9S2Q r9QXU49NN20DV38bJFm l7M3hDS8J2FhXVDtwbm qfpikhSY0NCBgRSScvE 00Dw1klOfsEm7jJYOtP IX4RELzwTUmK2LtfV9p UnUxTIYaAVWwH8DhoXC xFDnlZ045DAowWoH1KE ZqlpIdN1ToUIIhvGfcJ oS3j4Q0Jz2NOi59EG67 EF75eIEjs4K7aXS1L4R eSAYqjdrfmwdotMU0MK QkWSOqaU46Ns8ldNsvM l7aTOTtTON4WUYsuGMs Y9GixH5qMeTnCCJyUBN xV9MveBXcGWisJ075ET qdMrI2XPSqjaFqG0GwR KFweLnuAdF1i0B6Mm2L KVehgrj2J1CnYnhyvJS +XV23LCJlRS57mXQuaB Ser8odkWx0GxBnGCCcU UC4yWkqQHmxs6SxMPXr Y29s (more content not included)... [facility] CT Chest w/ Contraston 10-29 [...] [facility] Coding Summary.on 10-28-2020 Coding Summary. CD:[id number] ZRj0kLh+PGhlYWQ+PE1 DNZVvV85dbHEqvS6LQ8 xKXP2UDSLEBENLCV9ZX T1upSH6WYhkZ2FswpIa LaymeNAgJI33ZGq4EUN 4yYwlWFbvfY1tjBJyT6 i3ExZhNM17qD72RSyoB XEtBcN1NeEdcjufkRAl R6hiKkAuvNWeLui+PHR hYmxlIHdpZHRoPScxMD VzGmGvgYhuJA4fHd8aH GVyLWNvbGxhcHNlOiBj c3eiYJSqYAdzAG4nsHs hK3YqmHZ7SJXcw1h7Va 48dHI+BOOaKAK9gZseL Vapa956OaJei7vaIXS7 rZAsSXtqEZA5K62mm8H 8MJSfWQDnJSQ3lEQ7nL 9nlYfzefccS8LrkGEeY kL7FQN5cSGdgD8iiQye zqbcxV5sLfq+C20BKN3 FKEHUQT2DBqo5D0NlVd wvdHI+UA83SEWmXW90w YMspAOpj2klgLm8GhNx QCHoJCI2lRcfWZcdt8B pUPFhL70pvVDav4W8AB QohWznzWHkRfNteHX3f O3yOOaupwafe4xmskjs Qijpi0uclr43aM63Y16 oYQxgPHLrIYC5DMCyDA SifFgfvb4ppT9wGd6+I Kojh4mfy0kydUb9TeAd DZQuohSehNaqXUP3n3Y xVp06Z0VuhZtxj6PsLt x9fx84dPNds8C9xLF7M XurQQNdqV2lVOfmUwL8 YLFnHgKvsB00cVPjGUe uDe9ieQixlAewCK7bKT BbavjrDWDzmI3zTPJta RWccOdjUZ4dNYUclmuu l760TyRsIBS3NUByaKG eR5HdcO9zYwVnUNIwDF MwO9WwjVEmHYqpI326D OumHvF5PPTzmeFqZ2Gq ZHMjoQhhRwT3u8D5Mw0 Gj7NenosiKCP6BVrkXI T8TwQlIlJmKzL1X5VrT ak5DBBbaMkdZY2hY1Ev RVFyxzazyzbvfXQ1PRN hEZVmtF81dTCdOVqyYl 9zs3H0b007IXEvTLBvc W33Fl2kfMfsVFJuyCCN iN3laolyz0unkyrhMzF yRQYoPOy5QUe3PBKudH eiUnKbOLG7HkV3CFB8f VDnxN0idWathyjaoK0g Oyc+Y75qkM2aQHY9ZOD 2zcmtJTZczpQyFM51AL 00F4RlZowreGJelWA+P FMeotQraPhvOH2gSjVn p3php0FaAXftM6FvCGP nHIpsTcp4OTVlJRM3cX I8aJ8sJMQkTAuoy6F5p WL0F8QimaJhkm5gi7oi RJSbBHdkU19rtSGiu1E 8FXQynMN5BJNxwVwxJk GvfG29Qie+PGNvbGdyb 5PmFdnue4xgo0fyhYv0 IjMwJSIgdmFsaWduPSJ 5m6BoLo83M40xWIzxIE RoPSIxNSUiIHZhbGlnb a8ezK6dTe5+PGNvbCB3 sIJ0kH5rAOTsJjX4HTf zO537DgCiaZWdOqbwz3 mqi5zwcFa0YgKtTHHvo tJmfVdfVVW8w8BxYd56 G83pLUvqIZKwEWEvVDW aQFLcdXrfct7ndB8pXz 8+SA6zm6shcx06lI26g HI+JKPeRCI2tSwpYNiq GDXqtV7sTJydErH4ADW sLsFtzL33tRPtEZqrDf 1erHlyaZtoLV1wXEXpw vmiz906MbIac5ijOVSl rDXuZFqrYIR5T14rx2A 6SZOwHDKlZXA3iTV8dF 1hbGlnbjogbGVmdDsgd mWcrOkjAMsxAWaaW121 IHRvcDsnPlBhdGllbnQ pNrTaTAv6I5JzGua6HR ZehOewHO9yrGVqREmkT v3yjNseuAxxOV6hSKGd vsyks030EuLrg3osQQK oiTIzXXvlYXU9R33df6 K1ETDlFAXkBLW3rRD0x S1btOelpwesoCPtpRao ynZsxBtkTTrvBVceA37 6IHRvcDsnPkJpcnRoIE YeyYL1HT87YT04dFGtm 1R8pXP7D7TzNJWonzse yunfiHF0OUQwNNPqxH9 4Wg1raRsaGm7yQNPcHO U1ZIZfjSAaG3CctN3cC hIbZNUqIJEeE9LpuZGo ADajI510RKcjPrB7OHC ljyLcO2BvYSYsbHqsXl M7x3G1Ge5OR6C3KR47O D75oPFvm2S3nRV7B1Lr XMQwqndkwzmcfDZ9DPA zTTYiaD93Td5tnOhtQq 2zIZOrYKC5GBUcqBOwR 2EphK4cJnSwXTBwYXQd J8NixKIqRGygZ866EWx yVgW3DHNbryFtS1XeNT HznLsrWxN0e9D0Ge1WV Nk5IZ66VD11rWNzm5X5 wHV6Q7ZsZAFybccplwg edMJ5XCQkBJYpzN90Kt 2frGmmUv9fLIWbWXK4R NCktEUvI0ErlZ1mNlDr ODVzZOQnM3BebYFrNKm uU942IAakJhD7RZUpje HwQ6MhHEQrjVhaWiM0s 2S5Gh6JOYWoMP19DNK3 uBC1BQ80AT80U8NfFyi vdGFibGU+PHRhYmxlIH dpZHRoPScxMDAlJyBzd LgaZB2tFu8jCJStKPFy zGnqqTYxYlVbo2klBRG gVHykOU7yyKupX0DyxT G5XUBqb4q8Bp34N72rL 3JvdXA+MARqwMZ5wPI2 hY3nYkJuKbH2UYajT84 1OqJcfSDmPsvwn1ajr8 ypdFf8XgH2DYDfknEhk QedSXW3r7HeDd26B82r IHdpZHRoPSIxNSUiIHZ xqPqopq4eqW9wBo9+PG YtjYL4eKA1kL7nCxHpI pR0OQpoO517VgFnoQVf Unxyl9sdq3eczOq2SxO lZTQdqtEgfNjkYRV0d4 HsRi08A8RmpIbyn6WlA nx5bt73yLVly8L2lNS8 D6HzIGNkilgzcNAiqJz tAQ7gEJAcosugAWXczW 5gFRCtU8p9InScOyO3I BsyJ9EixwV3ICNqkDAa CImpOSZ7C46hr2E3YUY oVUPcSGE2iHG9qF3vpO lnbjogbGVmdDsgdmVyd JqvTFdyNEpqH948ALOf oVqkQLBpqX8uMJIlnQZ ffTevBH9yDLKdxdhrCi tBJZ8DWTCGCmigOReNU TOBNAPURT66WM23gVCe e5S2mIS8Q2SaBNWwcrc fcppmsMI2JWOzNDTjbE 56wMPkNCfcDc5ib7I9m 201DFHaUBPxjN25Of6i nMqzKVTsjQVKzJ8rcsa ii0vyrqpwHsMnIFWiKP b9HDh2DFUuyIwlJuToD GY3GzL2WJX8nGSazA1x uWclfzhsiP3rSgq+MTI uEAlxOUk9TBxttEU+PH UqWOD8eQdbOMlxJRPgb X0iYYLfA6j5NfHyAeG7 NWvcZ2AyDNNbzrqmOr7 4hV1wWdSuXsV7JPstP4 YhstK9BIOmsWMvESedN YW0Y39ep7R3GHKqTHFl YLE0dQB5jO3idLkzkny gbGVmdDsgdmVydGljYW ooDSydM145GDYieOmoL kD6DQurRXBlVE37FM96 eXZbt4K8mOJ5T4RjVLO xwaucibimcOH1WFPgWB GmaI02kFAfBTkpAk0kk 9J1e534ZSOrRTAeaB23 Jp5lsZzkNEOrfVKWzB8 dqmmjz1cdcwfiBtVhYN CjUGx7YPi1ZRUgxLsrX kTxDPF0RbA4XBD6tCFk vN0imUrnsufhzP2nJon +OqKqBVrwOV10RS28tX Fgg9S6tQP1X6TwICGwp kenoogdfYQ2QBJfGJEc kL90vGIuKPvxFc4up3J 9y593YYNpHEMwjD11Wv 2hsEuzJCVycVOKcK3ln rjhe4lblnxeRuFnKFAz ZLs4JPw7DNJizAuiErR nSVT5VmS8XWS5yIHquY 3vgVqjgzqaiB9jQpx+T 5Q1vMV0xKLajRiciQN+ AK53re48U0KlTroxQst 1QKMfYSO2lXK5yG2zCW CfMEqwl0Y7rGK4H3Hsv uLnxi3nb0bcOJQgWDoe X06loDBps0X4COTrdLT 8FRGumLqsUdTulU14Pl c+GORfuEbkn7RaKqkbf 7mlv1qepXv0QbSrQUTk yrFncXuyQIM8k3DzVd9 7L18cGMbuXWQvVXAhIM CkBRGgkGnpvv7okD7jR i8+GOZzdVN2fTI0dT6d EsBgRnQ5JTwfE926CbV vfGBnMkbeu0jvu8cywQ v0MtDbSDLcydYtpWqxC VV3s6DwGv71C1CeoWns i2GbPhc2ax82sWCrn1K 2qYN6M6UiWSIhacvtyY AzrKrbXN2zEKDxrongM WDsbO6lQTNlD9x5EoNh StT8FHkkS6LqonM2FUW oaEUbAJHpsBTMuR2fqo hhp0nhgsvuBsMzWCCrW Kd0LZr4SBJhyAhbFoOc SBD6NuM2ADB7kELfcM3 fdYnoxfojuU5hRyi+UG l7s6ukyIIsOY1ztIC4K T61AG43dKEha6W3cIP3 U8YuNMUjtyyebwgwoQR 8WJGkMLQgkO33Re3edM epKi3wGCFkSZR1AESvz UVlQ0YtsZ4aCwVvXMDc AUEmO2SalUWxPKuvI28 6KHnyPfE5OTFamrHvK5 TlSCVheSnjMcH4e5C6T m0FVO69OQ40YR28fTHm t9F7rIQ8C2OkVYDtovi ujhbtdNT8VMHjYKCltN 71Na3rmGiyNr2uTKTdB DY3IJDzkFCqP4PtjY6a WyFcWCRcLWWbL5FbcVT nUYvlI855PBxsEwK4TU ZsgyBaL9GvHFRayIadP fO6w7Z9Rh5RYp37RF67 JB17qNOhx1U0kZU7H0Y sLWJahyqmjhuizVC1WJ UxOTQfnW17Ri2fkZjzT w3iQWOyICF5HWThuRXj Y2ZzuY6qJwMmYWCcDWS tB6PjiQRoTKqtP918SH lhWvO9OKMzqqXmA2JeM EUbqWraPkE5w1C6Ic7I YJsknmg2J9TjYfriuLA +UJ40AFChWD98sYXndI Cmj8likNk0BwPjDHHaI GC8pKclKEptp8LoTCTt Y29s (more content not included)... [facility] Consent for Treatmenton Consent for Treatment [id number] 44#[id number]:127 [facility] Physician Orderon 10-21-2020 Physician Order [id number]#[id number]:127 [facility] Consent for Treatmenton Consent for Treatment [id number] B4#1.00CD:127 [facility] Physician Orderon 10-19-2020 Physician Order [id number]#[id number]:127 [facility] XR Chest 2 Viewson XR [...] M.D. Transcribed by: SHAYNA Technologist: BECKI Corona [facility] Vital Signs Date Time Vital Sign Value Performing Clinician Facility 07-26-2023 11:27-0500 Body height 170.2 cm Kaitlyn Jasso MD Work Phone: [employer] 06-12-2023 13:00-0500 Body height 170.18 cm Shun Hill Other [employer] Other 06-12-2023 13:00-0500 Body mass index (BMI) [Ratio] 35.24 kg/m2 Suhn Haleormack Other [employer] [facility] [employer] Other 06-12-2023 13:00-0500 Body weight 102.06 kg Shun Hill Other [facility] [employer] Other 03-15-2023 12:29-0400 Diastolic blood pressure 89 mm[Hg] DO Irma Burt Work Phone: [facility] 03-15-2023 12:29-0400 Heart rate 70 /min DO Irma Burt Work Phone: [facility] 03-15-2023 12:29-0400 Respiratory rate 16 /min DO Irma Burt Work Phone: [facility] 03-15-2023 12:29-0400 SaO2% (BldA) [Mass fraction] 100 % DO Irma Burt Work Phone: [facility] 03-15-2023 12:29-0400 Systolic blood pressure 132 mm[Hg] DO Irma Burt Work Phone: [facility] 03-15-2023 08:54-0400 Body height 170.18 cm DO Irma Burt Work Phone: [facility] 03-15-2023 08:54-0400 Body weight 90.71 kg DO Irma Burt Work Phone: [facility] 02-08-2023 14:45-0400 Body height 170.18 cm Shun Hill Other [employer] Other 02-08-2023 14:45-0400 Body mass index (BMI) [Ratio] 34.92 kg/m2 Shun Hill Other [employer] Other 02-08-2023 14:45-0400 Body weight 101.15 kg Shun Hill Other [employer] Other 02-08-2023 14:45-0400 Diastolic blood pressure 80 mm[Hg] Shun Hill Other [employer] Other 02-08-2023 14:45-0400 Systolic blood pressure 131 mm[Hg] Shun Hill Other [employer] Other 01-16-2023 10:35-0400 Body height 170.18 cm Aydee Nadiya Other [employer] Other 01-16-2023 10:35-0400 Body mass index (BMI) [Ratio] 35.2 kg/m2 Aydee Nadiya Other [employer] Other 01-16-2023 10:35-0400 Body temperature 98.3 [degF] Aydee Nadiya Other [employer] Other 01-16-2023 10:35-0400 Body weight 101.97 kg Aydee Nadiya Other [employer] Other 01-16-2023 10:35-0400 Diastolic blood pressure 66 mm[Hg] Aydee Nadiya Other [employer] Other 01-16-2023 10:35-0400 Respiratory rate 18 /min Aydee Nadiya Other [employer] Other 01-16-2023 10:35-0400 SaO2% (BldA) [Mass fraction] 98 % Aydee Nadiya Other [employer] Other 01-16-2023 10:35-0400 Systolic blood pressure 105 mm[Hg] Aydee Nadiya Other [employer] Other 09-23-2022 10:45-0400 Body height 170.18 cm Aydee Nadiya Other [employer] Other 09-23-2022 10:45-0400 Body mass index (BMI) [Ratio] 35.13 kg/m2 Aydee Nadiya Other [employer] Other 09-23-2022 10:45-0400 Body temperature 99.2 [degF] Aydee Nadiya Other [employer] Other 09-23-2022 10:45-0400 Body weight 101.74 kg Aydee Nadiya Other [employer] Other 09-23-2022 10:45-0400 Diastolic blood pressure 80 mm[Hg] Aydee Nadiya Other [employer] Other 09-23-2022 10:45-0400 Respiratory rate 18 /min Aydee Nadiya Other [employer] Other 09-23-2022 10:45-0400 SaO2% (BldA) [Mass fraction] 98 % Aydee Nadiya Other [employer] Other 09-23-2022 10:45-0400 Systolic blood pressure 125 mm[Hg] Aydee Hearn Other [employer] Other 09-04-2022 11:20-0400 Body height 170.18 cm Aydee Hearn Other [employer] Other 09-04-2022 11:20-0400 Body mass index (BMI) [Ratio] 31.32 kg/m2 Aydee Hearn Other [employer] Other 09-04-2022 11:20-0400 Body temperature 97.8 [degF] Aydee Hearn Other [employer] Other 09-04-2022 11:20-0400 Body weight 90.72 kg Aydee Hearn Other [employer] Other 09-04-2022 11:20-0400 Respiratory rate 18 /min Aydee Hearn Other [employer] Other 09-04-2022 11:20-0400 SaO2% (BldA) [Mass fraction] 99 % Aydee Hearn Other [employer] Other Encounters Encounter Date Encounter Type Care [...] pital Start: 09-20-2023 End: 09-21-2023 ambulatory KAITLYN [facility] Start: 09-18-2023 End: 09-18-2023 ambulatory SAGAR LUKE Not Available Start: 09-17-2023 End: 09-17-2023 ambulatory SAGAR R LUKE [facility] Start: 09-17-2023 End: 09-17-2023 ambulatory KAITLYN [facility] Start: 08-31-2023 End: 09-04-2023 ambulatory FROYLAN Rascon RACHEL [facility] Start: 08-15-2023 End: 08-15-2023 ambulatory IRMA KD Not Available Start: 07-26-2023 Chart abstracting Kaitlyn Jasso MD Work Phone: [facility] Start: 07-18-2023 End: 07-18-2023 ambulatory SAGAR LUKE Not Available Start: 06-20-2023 End: 06-20-2023 ambulatory Shun Hill Other [employer] Other Start: 06-20-2023 Telephone encounter Shun infante [facility] Start: 06-19-2023 End: 06-19-2023 ambulatory SAGAR BUTLER Not Available Start: 06-12-2023 End: 06-12-2023 ambulatory Shun Hill Other [employer] Other Start: 06-12-2023 Office outpatient vi sit 15 minutes Shun Hill [facility] Start: 05-01-2023 End: 05-01-2023 ambulatory Shun Hill Facility:[facility] Start: 05-01-2023 End: 05-01-2023 ambulatory DO Irma D Burt Work Phone: [facility] Work Phone: Start: 05-01-2023 End: 05-01-2023 Patient encounter procedure DO Irma Burt Work Phone: [facility] Work Phone: Start: 04-10-2023 End: 04-10-2023 ambulatory Shun Haleormack Facility:[facility] Start: 04-10-2023 End: 04-10-2023 ambulatory DO Irma D Burt Work Phone: [facility] Work Phone: Start: 04-10-2023 End: 04-10-2023 Patient encounter procedure DO Irma Burt Work Phone: [facility] [place] Work Phone: Start: 04-06-2023 End: 04-06-2023 ambulatory Shun Hill Other [employer] Other Start: 04-06-2023 Telephone encounter Shun infante [facility] Start: 03-20-2023 End: 03-20-2023 ambulatory Shun Hill Other [employer] Other Start: 03-20-2023 Telephone encounter Shun Moncada naresh [facility] Start: 03-19-2023 End: 03-19-2023 ambulatory Shun Liz Other [employer] Other Start: 03-19-2023 Telephone encounter Shun Moncada naresh [facility] Start: 03-15-2023 End: 03-15-2023 ambulatory Shun Hill Facility:[facility] Start: 03-15-2023 End: 03-15-2023 Admission to same day surgery center DO Irma Burt Work Phone: [facility] Work Phone: Start: 03-15-2023 End: 03-15-2023 ambulatory DO Irma Landrum Burt Work Phone: [facility] Work Phone: Start: 02-26-2023 End: 02-26-2023 ambulatory Shun Liz Other [employer] Other Start: 02-26-2023 Telephone encounter Shun Moncada naresh [facility] Start: 02-08-2023 End: 02-08-2023 ambulatory Shun Liz Other [employer] Other Start: 02-08-2023 Office outpatient ne w 45 minutes Shun Hill [facility] Start: 01-16-2023 End: 01-16-2023 ambulatory Aydee Hearn Other [employer] Other Start: 01-16-2023 Office outpatient vi sit 15 minutes Aydee Nadiya [facility] Start: 09-23-2022 End: 09-23-2022 ambulatory Aydee Nadiya Other [employer] Other Start: 09-23-2022 Office outpatient vi sit 15 minutes Aydee Nadiya [facility] Start: 09-04-2022 End: 09-04-2022 ambulatory Aydee Hearn Other [employer] Other Start: 09-04-2022 Nursing evaluation o f patient and report Aydee Hearn [facility] Start: 07-12-2022 End: 07-12-2022 ambulatory Perlarolo Márquez Other [employer] Other Start: 07-12-2022 Office outpatient vi sit 5 minutes Perla Márquez [facility] Start: 07-07-2022 End: 07-07-2022 ambulatory Aydee Hearn Other [employer] Other Start: 07-07-2022 Encounter for other preprocedural examination Aydee Hearn [facility] Start: 07-07-2022 Nursing evaluation o f patient and report Aydee Hearn [facility] Start: 02-03-2022 End: 02-03-2022 ambulatory Maria Guadalupe Powers Other [employer] Other Start: 02-03-2022 Office outpatient vi sit [...] (3 - Td or Tdap) [facility] Start: 09-17-2023 End: 09-17-2023 Patient encounter procedure 09/17/2023 8:45 AM EDT Office Visit [facility] [address] [place] [id number] Kaitlyn Jasso MD [address] [facility] [address] [place] [address] [facility] Start: 09-17-2023 End: 09-17-2023 Patient encounter procedure 09/17/2023 7:30 AM EDT Appointment [facility] - [facility] [address] [place] [id number] [facility] Start: 05-01-2023 [facility] Start: 03-15-2023 [facility] Start: 01-19-2023 COVID-19 Vaccine ( season) COVID-19 Vaccine ( season) [facility] Start: 01-19-2023 Influenza vaccination Influenza Vacc ine [facility] Start: 12-30-2021 Adult BMI Screening Adult BMI Screen ing [facility] Start: 2006 Screening for malign ant neoplasm of cervix Pap Smear [facility] Start: 1997 Depression Screening Depression Scre ening [facility] Start: 1997 Tobacco Screening Tobacco Screening [facility] Immunizations Immunization Date Immunization Notes Care Provider Fa cility 02-03-2020 influenza virus vaccine, unspecified formulation Kaitlyn Jasso MD Work Phone: [facility] Payers Date Payer Category Payer Private Health Insurance [id number] 2023 Self-pay [id number] 2018 Private Health Insurance [employer] POS II [id number] 2018-Present [phone] [address] [place] [address] [id number] 1985 Unknown [id number] 2.16.840.1.462803.3.579.2 .1285 1985 Unknown [id number] 2.16.840.1.273929.3.579.2 .1285 1985 Unknown [id number] 2.16.840.1.917319.3.579.2 .1285 1985 Unknown [id number] 2.16.840.1.535654.3.579.2 .1285 1985 Unknown [id number] 2.16.840.1.270716.3.579.2 .1285 1985 Unknown [id number] 2.16.840.1.509708.3.579.2 .1285 1985 Unknown [id number] 2.16.840.1.183250.3.579.2 .1285 1985 Unknown [id number] 2.16.840.1.031224.3.579.2 .1285 1985 Unknown [id number] 2.16.840.1.373944.3.579.2 .1285 1985 Unknown [id number] 2.16.840.1.722807.3.579.2 .1285 1985 Unknown [id number] 2.16.840.1.901757.3.579.2 .1285 1985 Unknown [id number] 2.16.840.1.805160.3.579.2 .1285 1985 Unknown [id number] 2.16.840.1.743656.3.579.2 .1259 1985 Unknown [id number] 2.16.840.1.548820.3.579.2 .1258 1985 Unknown [id number] 2.16.840.1.441337.3.579.2 .9 1985 Unknown [id number] 2.16.840.1.723285.3.579.2 .1258 1985 Unknown [id number] 2.16.840.1.589189.3.579.2 .1258 1985 Unknown [id number] 2.16.840.1.229513.3.579.2 .1258 1985 Unknown [id number] 2.16.840.1.048788.3.579.2 .1258 1985 Unknown [id number] 2.16.840.1.663003.3.579.2 .1258 1985 Unknown [id number] 2.16.840.1.383382.3.579.2 .1258 1985 Unknown [id number] 2.16.840.1.151317.3.579.2 .1259 Medicaid [facility] [id number] Private Health Insurance [id number] Unknown [employer] [id number] Unknown [id number] 2.16840.1.579740.3.579.2 .531 Unknown [id number] 2.16840.1.686342.3.579.2 .531 Unknown [id number] 2.16840.1.157768.3.579.2 .531 Social History Date Type Detail Facility Start: 06-30-2020 End: 07-26-2023 Sex Assigned At [facility] [employer] Other Start: 03-15-2023 End: 03-15-2023 Tobacco smoking status NHIS Ex-smoker (finding) [facility] Start: 1985 Sex Assigned At Female [facility] Start: 11-17-2020 Tobacco smoking stat us NHIS Smokes tobacco daily [facility] History of tobacco use Tobacco U se Types Packs/Day Years Used Date Smoking Tobacco: Every Day Vaping/E-cigarettes Smokeless Tobacco: Never [facility] Start: 11-17-2020 Tobacco use and exposure Smokeless tobacco non-user [facility] Start: 07-26-2023 Alcohol intake Current drinke r of alcohol (finding) [facility] Start: 06-30-2020 End: 07-26-2023 History of Social function [facility] Childcare Unknown [facility] Start: 11-17-2020 Alcohol Comment social [facility] Start: 05-04-2023 [facility] Start: 1985 Sex Assigned At Not on file [facility] Goals Date Patient Goal Desired [...] Mayelin Pinto DO on 08/31/2023 11:23 AM [facility] 06-12-2023 Evaluation note Encounter Date Diagnosis Assessment Notes May, Diarrhea (ICD-10 - R19.7) Patient reports that she is about 7-8 weeks gestational Patient reports improvement on Creon with occasional flare Patient reports that she is taking a fiber supplement May, Fatty liver (ICD-10 - K76.0) Patient did have a FibroScan that indicates fatty liver and minimal scaring, this will be reviewed [employer] Other 11-17-2023 Evaluation note* Encounter Date Diagnosis Assessment Notes Treatment Notes Treatment Clinical Notes Mar, Exocrine pancreatic insufficiency (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) [employer] Other 10-31-2023 Evaluation note* Encounter Date Diagnosis Assessment Notes Treatment Notes Treatment Clinical Notes Feb, Alternating constipation and diarrhea (ICD-10 - R19.8) Feb, Fecal urgency (ICD-10 - R15.2) [employer] Other 10-30-2023 Evaluation note* Encounter Date Diagnosis Assessment Notes Treatment Notes Treatment Clinical Notes Feb, Alternating constipation and diarrhea (ICD-10 - R19.8) [employer] Other 10-26[facility] Encounter Date Diagnosis Assessment Notes Treatment Notes Treatment Clinical Notes Feb, Alternating constipation and diarrhea (ICD-10 - R19.8) [employer] Other 09-21-2023 Evaluation note* Encounter Date Diagnosis Assessment Notes Treatment Notes Treatment Clinical Notes Jan, Alternating constipation and diarrhea (ICD-10 - R19.8) WORSENING DIARRHEA AND CONSTIPATION OVER THE PAST YEAR. DOES HAVE SOME NOCTURNAL AWAKENINGS WITH THE DIARRHEA. CAN GO 4-5 DAYS WITH OUT A BOWEL MOVEMENT WHEN SHE IS CONSTIPATED. WILL ORDER IBS WORK UP WILL PROCEED WITH COLONOSCOPY [employer] Other 08-29-2023 Evaluation note* Encounter Date Diagnosis [...] no improvement in 2 to 3 days [employer] Other 2023 Evaluation note* Encounter Date Diagnosis [...] no improvement in 2 to 3 days [employer] Other 04-17-2023 Evaluation note* Encounter Date Diagnosis Assessment Notes Treatment Notes Treatment Clinical Notes Aug, Contact with and (suspected) exposure to other viral communicable diseases (ICD-10 - Z20.828) [employer] Other 02-22-2023 Evaluation note* Encounter Date Diagnosis Assessment Notes Treatment Notes Treatment Clinical Notes Jun, Contact with and (suspected) exposure to covid-19 (ICD-10 - Z20.822) [employer] Other 02-17-2023 Evaluation note* Encounter Date Diagnosis Assessment Notes Treatment Notes Treatment Clinical Notes Jun, Preoperative clearance (ICD-10 - Z01.818) [employer] Other 09-16-2022 Evaluation note* Encounter Date Diagnosis Assessment Notes Treatment Notes Treatment Clinical Notes Jan, Contact with and (suspected) exposure to covid-19 (ICD-10 - Z20.822) [employer] Other Evaluation note* Diagnosis Onset Date Resolution Status Diarrhea acute [facility] Work Phone: Evaluation noteNo InformationNort [employer] Other History general Narrative - Reported* Type Description Date Medical History ANXIETY AND DEPRESSION [employer] Other Hospital Discharge instructions Additional Instructions DISCHARGE [...] if you have any problems. -Office number [phone] Work Phone: InstructionsNot on filedocumented in this encounter News[employer] SystemReason for visit NarrativeRED EQUINOX, ANTIGEN PROCEDURE TESTNoBlack Lotus Other Reason for visit NarrativeNEEDSNEGATIVE, RAPID COVID TEST FOR PROCEDURENoBlack Lotus Other Summary Purpose Family History No Family [...] section and content) DATE CREATED AUTHOR 08/24/2021 [facility] DATE CREATED AUTHOR AUTHOR'S ORGANIZ ATION 05/09/2023 [facility] DATE CREATED AUTHOR AUTHOR'S ORGANIZ ATION 09/22/2023 [facility] DATE CREATED AUTHOR AUTHOR'S ORGANIZ ATION 12/25/2023 [facility] DATE CREATED AUTHOR AUTHOR'S ORGANIZ ATION 12/27/2023 [facility] EPIC REASON FOR VISIT [...] Active Shun Hill MD Attending Provider Active Director Special Education Relationship Specialty Start Date End Date No Pcp, [place] [address] PCP - General Family Medicine 11/18/20 FOR [...] BE BASED ON THE PRIMARY CLINICAL RECORDS. [facility] [employer] [facility]. provides no warranty or guarantee of the accuracy or completeness of information in this document.
[2024-01-13] MEDS: MAGNESIUM SULFATE IN WATER 40 GM/1,000 ML IV.SOLN IV ×2 (00:35→18:29)
--- NOTE | 2024-01-13 00:50 | PC.NURSE ---
+3 BLE DTRs +2 LUE DTRs +1 RUE DTRs
--- NOTE | 2024-01-13 00:52 | PC.NURSE ---
+3 BLE DTRs +2 LUE DTRs +1 RUE DTRs
[2024-01-13] MEDS: OXYCODONE HCL/ACETAMINOPHEN 5MG/325MG 2 TAB PO ×2 (01:11→14:00)
[2024-01-13] MEDS: IBUPROFEN 400 MG TABLET 800 MG PO ×3 (03:39→22:24)
[2024-01-13 06:02] LABS: Glucometer 105 mg/dL (74-106)
[2024-01-13] MEDS: CEFAZOLIN SODIUM/DEXTROSE,ISO 2 GM/50 ML PIGGYBACK IV (06:40)
--- NOTE | 2024-01-13 07:21 | XR_ITS ---
[address] [address] Patient Name: GONZÁLEZ LOMELI MRN: [id number] date: 1985 Sex: F Assigned Patient Location: [facility] Current Patient Location: [facility] Accession/Order Number: [id number] Exam Date: 01/13/2024 07:50 Report Date: 01/13/2024 08:10 At the request of: SAMANTHA ALICIA Procedure: XR chest 1V EXAM: XR chest 1V HISTORY: Shortness of breath. COMPARISON: None. TECHNIQUE: AP erect portable chest radiograph performed. FINDINGS: The trachea is midline. Mild prominence/magnification of the cardiac silhouette. There is mild elevation of the right hemidiaphragm. There are increased interstitial markings within both hilar regions and both lung bases. Correlate with clinical findings to differentiate edema from pneumonia. There is no pleural effusion. There is no pneumothorax or acute osseous abnormality. XR/XR chest 1V IMPRESSION: Mild prominence/magnification of the cardiac silhouette. There are increased markings within the bilateral perihilar regions and both lung bases. Correlate with clinical findings to differentiate edema from pneumonia. Electronically authenticated by: SUN MASCORRO Date: 01/13/2024 08:10
[2024-01-13 07:34] LABS: Alanine Aminotransferase 20 U/L (14-59); Albumin Globulin Ratio 0.5; Albumin Level 1.9 g/dL (3.4-5.0); Alkaline Phosphatase 114 U/L (46-116); Anion Gap 15.3; Aspartate Amino Transferase 20 U/L (15-37); BUN Creatinine Ratio 10.5; Bilirubin Total 0.3 mg/dL (0.2-1.0); Calcium 8.2 mg/dL (8.5-10.1); Carbon Dioxide 23.1 mmol/L (21.0-32.0); Chloride 104 mmol/L (98-107); Estimated GFR (African America >60 (>=60); Estimated GFR (Non-African Ame >60 (>=60); Globulin 3.6 g/dL; Glucose 100 mg/dL (74-106); Potassium 3.4 mmol/L (3.5-5.1); Sodium 139 mmol/L (136-145); Total Protein 5.5 g/dL (6.4-8.2)
[2024-01-13 07:35] LABS: Mean Corpuscular HGB Conc 32.3 g/dL (29.9-35.2); Mean Corpuscular Hemoglobin 31.1 pg (26.7-34.0); Mean Corpuscular Volume 96.4 fL (81.0-99.0); Mean Platelet Volume 10.1 fL (9.5-13.5); Platelet Count 193 10^3/uL (150-450); Red Blood Count 2.25 10^6/uL (4.20-5.40); Red Cell Distribution Width 14.2 % (11.0-15.0); White Blood Count 9.6 10^3/uL (4.0-11.0)
[2024-01-13 07:38] LABS: Magnesium 4.5 mg/dL (1.8-2.4)
--- NOTE | 2024-01-13 07:46 | P.CN_ITS ---
Consult Note: HPI Data of Consult Requesting Physician: Bryan Ospina DO Primary Care Provider: ROLA SANTIZO Consult Narrative Reason for consult: shortness of breath, lower ext swelling, HTN Narrative: Patient is a 38 y.o who presented to the ER last night with increased swelling in both legs, elevated blood pressure, weakness and fatigue. She is now 6 days post from . Her was complicated by Gestational Diabetes. She has history of Hepatitis C, hypothyroidism, GERD, depression. She denies any prior history of HTN but does not a history of preeclampsia with prior . She hasn't slept much due to having so she notes being tired and also has been avoiding her own health. She is having weakness, and now short of breath with exertion. She continues to have vaginal bleeding since delivery, mild, changing a few pads daily. She also complains of headache, no visual changes, no nausea or vomiting associated. Denies chest pain or heart palpations. No issues with urination or defecation. No fevers or chills. Denies sick contacts. She has no prior cardiac history, family history of father having triple bypass in late 50's. 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 cc:: CC: Bryan Ospina DO Review of Systems ROS Narrative ROS: a complete review of systems were reviewed with patient and are positive as below or listed in History of Chief Complaint. General: no fever, chills, night sweats Head: headache, no trauma, visual changes, nausea or vomiting Skin: no reported rashes, itching or sores Eyes: no blurriness of vision Ears: no reported hearing loss, vertigo, earache, or tinnitus Throat: no sore throat, hoarseness, swelling of neck, or tongue pain Heart: no chest pain Lungs:shortness of breath, no cough GI: no diarrhea or vomiting/nausea Urinary: no urinary urgency, frequency or pain Neuro: no numbness or tingling HEM: no bleeding issues or bruising ENDO: thyroid problems Psych: depression PFSH [facility] Medical History (Updated 01/13/24 @ 10:50 by Kamryn Hull DO) Normal colonoscopy Normal hysteroscopy ?Z01.89 - Encounter for other specified special examinations (ICD-10) Family History Father Family history of CHF (congestive heart failure) Social History Smoking status: Former smoker Highest level of school completed/degree received: some college, no degree Meds Home Medications and Allergies Home Medications ?Medication ?Instructions ?Recorded ?Confirmed ?Type gcvnra-lwrviwfm-dcbvwws 2 cap PO TID 07/16/23 01/12/24 History 36,000-114,000-180,000 unit capsule,delay rel (Creon) sertraline 50 mg tablet 75 mg PO DAILY 07/16/23 01/12/24 History blood-glucose meter (OneTouch 12/08/23 01/08/24 History Verio Reflect Meter) cyanocobalamin (vitamin B-12) 1,000 mcg PO DAILY 12/08/23 01/12/24 History 1,000 mcg sublingual tablet ferrous sulfate 325 mg (65 mg 325 mg PO DAILY 12/08/23 01/12/24 History iron) tablet levothyroxine 75 mcg tablet 75 mcg PO DAILY 12/08/23 01/12/24 History omeprazole 20 mg capsule,delayed 20 mg PO DAILY 12/08/23 01/12/24 History release insulin glargine 100 unit/mL (3 10 unit subcut DAILY 01/08/24 01/12/24 History mL) subcutaneous pen (Lantus Solostar U-100 Insulin) insulin lispro 100 unit/mL 4 unit subcut .BEFORE DINNER 01/08/24 01/12/24 History subcutaneous pen Allergies Allergy/AdvReac Type Severity Reaction Status Date / Time No Known Drug Allergies Allergy Verified 01/07/24 14:04 Exam Narrative Exam Narrative: General: Patient is alert, and oriented to person, place and time with normal affect, proper hygiene Skin: no visible rashes, or ulcers Head: atraumatic, acephalic Eyes: PERRLA, no nystagmus present, conjunctiva clear, no scleral icterus Ears: normal gross auditory acuity Nose: symmetric, no discharge, no maxillary or frontal sinus tenderness Heart: Normal rate and rhythm, no murmurs/rubs/gallops Lungs: no audible wheezes, bibasilar crackles Abdomen: Normal audible bowel sounds, no distension, No palpable masses, no organomegaly, no rebound/guarding/ or rigidity Musculoskeletal: +1 pitting bilateral lower extremities Neuro: CN II-X grossly intact Constitutional Vital Signs, click to edit/add: Last Vital Signs Temp 97.6 F 01/13/24 06:35 Pulse 100 H 01/13/24 06:36 Resp 20 01/13/24 06:35 BP 94/53 01/13/24 06:36 Pulse Ox 92 L 01/13/24 06:35 O2 Del Method Nasal Cannula 01/13/24 06:35 O2 Flow Rate 2 01/13/24 06:35 Results Labs Labs: Short CBC 01/12/24 Range/Units 23:29 WBC 12.5 H (4.0-11.0) 10^3/uL Hgb 8.0 L (12.0-16.0) g/dL Hct 24.2 L (36.0-48.0) % Plt Count 234 (150-450) 10^3/uL BMP 01/12/24 01/13/24 23:29 07:04 Sodium 139 139 Potassium 3.7 3.4 L Chloride 103 104 Carbon Dioxide 26.4 23.1 BUN 12.0 8.0 Creatinine 0.90 0.76 Glucose 120 H 100 Calcium 8.4 L 8.2 L Liver Function 01/12/24 01/13/24 Range/Units 23:29 07:04 Total Bilirubin 0.2 0.3 (0.2-1.0) mg/dL AST 21 20 (15-37) U/L ALT 24 20 (14-59) U/L Alkaline Phosphatase 128 H 114 (46-116) U/L Albumin 2.1 L 1.9 L (3.4-5.0) g/dL Urine 01/12/24 Range/Units 23:25 Urine Color Brown A (YELLOW) Urine Clarity Clear (CLEAR) Urine pH 6.0 (5.0-9.0) Ur Specific [place] 1.025 (1.005-1.025) Urine Protein 100 A (NEG/TRACE) mg/dL Urine Glucose (UA) Negative (NEGATIVE) mg/dL Assessment and Plan Assessment and Plan (1) Severe pre-eclampsia: Assessment and Plan: Patient with proteinuria, elevated BP and bilateral lower ext swelling. I have ordered chest X-ray which showed acute pulmonary edema. She has been on IV magnesium, Start Lasix for diuresis. Monitor strict I&O's. Dr Ospina ordered chest CT and head CT which are pending at this time. ProBNP and troponin were negative/normal. Continue to monitor oxygen saturations closely but diuresis should help improve symptoms, monitor electrolytes and renal function. Qualifiers: Trimester: unspecified trimester Qualified Code(s): O14.10 - Severe pre-eclampsia, unspecified trimester (2) UTI (urinary tract infection): Assessment and Plan: slight leukocytosis. was started on Ancef, urine culture pending, lactate normal. Qualifiers: Urinary tract infection type: acute cystitis Hematuria presence: without hematuria Qualified Code(s): N30.00 - Acute cystitis without hematuria (3) Hypothyroidism: Assessment and Plan: slight elevation of TSH, has not taken medication in several days, agree with resuming home dosage of levothyroxine. Qualifiers: Hypothyroidism type: acquired Qualified Code(s): E03.9 - Hypothyroidism, unspecified (4) Gestational diabetes mellitus: Assessment and Plan: monitor sugars, does not appear she needs insulin since . Qualifiers: Gestational diabetes mellitus control: insulin-controlled Trimester: unspecified trimester Qualified Code(s): O24.414 - Gestational diabetes mellitus in , insulin controlled (5) Headache: Assessment and Plan: had normal CT of the head a few months ago, CT head pending. no concerning/urgent symptoms. Most likely due to HTN and preeclampsia. patient also has history of headaches. Qualifiers: Headache type: unspecified Headache chronicity pattern: unspecified pattern Intractability: intractable Qualified Code(s): R51.9 - Headache, unspecified Plan Diuresis, monitor response. May benefit from Echo tomorrow if symptoms do not improve.
[2024-01-13 08:01] LABS: Hematocrit 21.7 % (36.0-48.0)
[2024-01-13 08:07] LABS: Troponin I High Sensitivity 6.3 pg/mL (4.0-51.3)
[2024-01-13 08:09] LABS: TSH W/ REFLEX FT4 6.267 uIU/mL (0.358-3.740)
--- NOTE | 2024-01-13 08:28 | CT_ITS ---
The [address] [address] Patient Name: GONZÁLEZ LOMELI MRN: [id number] date: 1985 Sex: F Assigned Patient Location: [facility] Current Patient Location: [facility] Accession/Order Number: [id number] Exam Date: 01/13/2024 09:05 Report Date: 01/13/2024 10:12 At the request of: SAGAR BUTLER Procedure: CT stroke head/brain wo con HEAD CT WITHOUT CONTRAST: 01/13/2024 9:05 AM EDT Clinical Data: r/o stroke Comparison: No previous Unenhanced axial data from base to vertex. INTRA-AXIAL: No acute hemorrhage. No acute infarction is evident. EXTRA-AXIAL: No acute hemorrhage. No focal fluid collection. The pituitary is not enlarged. BRAIN VOLUME: Unremarkable for age. VENTRICLES: No hydrocephalus PARANASAL SINUSES: No air-fluid levels in the included aspects. MASTOIDS: Partial opacification, left greater than right. CALVARIUM: No acute finding. EXTRACALVARIAL: No acute findings CT/CT stroke head/brain wo con IMPRESSION: 1. No evidence of acute intracranial process on this unenhanced study as described. 2. Patchy partial opacification of the mastoids, left greater than right is nonspecific. All CT scans at this facility use dose modulation, iterative reconstruction, and/or weight based dosing when appropriate to reduce radiation dose to as low as reasonably achievable. Electronically authenticated by: NEGRITO ROSARIO Date: 01/13/2024 10:12
--- NOTE | 2024-01-13 08:28 | CT_ITS ---
[address] [address] Patient Name: GONZÁLEZ LOMELI MRN: [id number] date: 1985 Sex: F Assigned Patient Location: [facility] Current Patient Location: [facility] Accession/Order Number: [id number] Exam Date: 01/13/2024 09:05 Report Date: 01/13/2024 10:19 At the request of: SAGAR BUTLER Procedure: CT angio chest CT CHEST ANGIOGRAPHY FOR PULMONARY EMBOLUS: 01/13/2024 9:05 AM EDT Clinical Data: SOB r/o PE Comparison: No previous Contrast enhanced helically acquired data per pulmonary CTA protocol. Volumetric recons in MIP mode were generated and reviewed. FINDINGS: Artifact from arms at sides. AXILLAE: No acute finding. SUPRACLAVICULAR: No acute finding. MEDIASTINUM: Mild confluent low density material in the anterior mediastinum with no mass effect. Potential mildly enlarged low density subcarinal node. GEETHA: Nonenlarged hilar alba tissue, right a little greater than left. HEART: Normal in size. No pericardial effusion. VASCULAR: SYSTEMIC: No thoracic aortic aneurysm. Great vessels are patent PULMONARY: Main pulmonary artery is clear. Right and left pulmonary arteries are clear. Proximal through mid branches are free of meniscal filling defects. LUNGS: A few patchy areas of groundglass opacity in the right. Areas of linear peripheral atelectasis in both lungs. PLEURA: No pleural effusion. CHEST WALL: No focal soft tissue prominence. BONES: No acute finding. UPPER ABD: No acute finding. OTHER: No acute finding. CT/CT angio chest IMPRESSION: 1. No evidence of acute pulmonary embolic disease. 2. A few small patchy areas of groundglass opacity in the right lung. Areas of atelectasis versus early pneumonitis. Further peripherally there are peripheral areas of linear atelectasis in both lungs. 3. No pleural effusion. 4. Slightly prominent confluent low density material in the anterior mediastinum may represent thymic tissue. Electronically authenticated by: NEGRITO ROSARIO Date: 01/13/2024 10:19
[2024-01-13 08:38] LABS: Lactate/Lactic Acid 1.2 mmol/L (0.4-2.0)
[2024-01-13 08:59] LABS: Free T4 0.62 ng/dL (0.76-1.46)
[2024-01-13 09:05] LABS: Internal Control Within Normal Limits; SARS-CoV-2 Ag NEGATIVE (NEGATIVE)
--- NOTE | 2024-01-13 09:34 | P.OBHP_ITS ---
OB - H&P: HPI History of Present Illness Chief complaint: General Weakness : 3 Para: 3 Narrative: 38 yo s/p day 6 presented to er with complaints of elevated bp and headaches, pt was given labetalol 20mg iv with good results normalizing bp, pt was started on magnesium, pt continues to have headache and sob, sob especially with exertion, pt is on 2L sat a 97% History of Present complications: preeclampsia and induced hypertension Review of Systems ROS sob, headaches, significant lower extremity edema Status of ROS: 10 or more systems reviewed and unremarkable except as noted in history and below [facility] Medical History (Updated 01/13/24 @ 09:56 by Bryan Ospina DO) Normal colonoscopy Normal hysteroscopy ?Z01.89 - Encounter for other specified special examinations (ICD-10) Family History Father Family history of CHF (congestive heart failure) Social History Smoking status: Former smoker Highest level of school completed/degree received: some college, no degree Meds Home Medications and Allergies Home Medications ?Medication ?Instructions ?Recorded ?Confirmed ?Type vaboqu-uwvhmdkg-nxachjq 2 cap PO TID 07/16/23 01/12/24 History 36,000-114,000-180,000 unit capsule,delay rel (Creon) sertraline 50 mg tablet 75 mg PO DAILY 07/16/23 01/12/24 History blood-glucose meter (OneTouch 12/08/23 01/08/24 History Verio Reflect Meter) cyanocobalamin (vitamin B-12) 1,000 mcg PO DAILY 12/08/23 01/12/24 History 1,000 mcg sublingual tablet ferrous sulfate 325 mg (65 mg 325 mg PO DAILY 12/08/23 01/12/24 History iron) tablet levothyroxine 75 mcg tablet 75 mcg PO DAILY 12/08/23 01/12/24 History omeprazole 20 mg capsule,delayed 20 mg PO DAILY 12/08/23 01/12/24 History release insulin glargine 100 unit/mL (3 10 unit subcut DAILY 01/08/24 01/12/24 History mL) subcutaneous pen (Lantus Solostar U-100 Insulin) insulin lispro 100 unit/mL 4 unit subcut .BEFORE DINNER 01/08/24 01/12/24 History subcutaneous pen Allergies Allergy/AdvReac Type Severity Reaction Status Date / Time No Known Drug Allergies Allergy Verified 01/07/24 14:04 Exam Constitutional Vital Signs, click to edit/add: Last Vital Signs Temp 97.6 F 01/13/24 06:35 Pulse 99 H 01/13/24 08:45 Resp 21 H 01/13/24 08:45 BP 134/83 01/13/24 08:45 Pulse Ox 96 01/13/24 08:45 O2 Del Method Nasal Cannula 01/13/24 07:45 O2 Flow Rate 2 01/13/24 07:45 Documenting provider has reviewed patient's vital signs: yes Common normals: alert (lethargic) Exam limitations: other limitations (slurred speech) General appearance: cooperative Orientation/consciousness: Yes awake, Yes oriented to place, Yes oriented to time and Yes lethargic Respiratory Common normals: normal respiratory effort and clear to auscultation bilaterally (bilateral rhonchi) Auscultation: crackles, rhonchi and wheezes Cardio Common normals: regular rate and regular rhythm GI Common normals: Normal to inspection, nondistended, normoactive bowel sounds present Extremity Common normals: no calf tenderness and no pedal edema (bilateral lower extemity edema) Results Labs Labs: Short CBC 01/12/24 01/13/24 Range/Units 23:29 07:04 WBC 12.5 H 9.6 (4.0-11.0) 10^3/uL Hgb 8.0 L 7.0 L (12.0-16.0) g/dL Hct 24.2 L 21.7 L* (36.0-48.0) % Plt Count 234 193 (150-450) 10^3/uL BMP 01/12/24 01/13/24 23:29 07:04 Sodium 139 139 Potassium 3.7 3.4 L Chloride 103 104 Carbon Dioxide 26.4 23.1 BUN 12.0 8.0 Creatinine 0.90 0.76 Glucose 120 H 100 Calcium 8.4 L 8.2 L Liver Function 01/12/24 01/13/24 Range/Units 23:29 07:04 Total Bilirubin 0.2 0.3 (0.2-1.0) mg/dL AST 21 20 (15-37) U/L ALT 24 20 (14-59) U/L Alkaline Phosphatase 128 H 114 (46-116) U/L Albumin 2.1 L 1.9 L (3.4-5.0) g/dL Urine 01/12/24 Range/Units 23:25 Urine Color Brown A (YELLOW) Urine Clarity Clear (CLEAR) Urine pH 6.0 (5.0-9.0) Ur Specific [place] 1.025 (1.005-1.025) Urine Protein 100 A (NEG/TRACE) mg/dL Urine Glucose (UA) Negative (NEGATIVE) mg/dL OB - A/P Assessment and Plan (1) Severe pre-eclampsia: (2) Headache: (3) SOB (shortness of breath) on exertion: (4) Pulmonary edema: (5) Gestational diabetes mellitus: (6) UTI (urinary tract infection): (7) Hypothyroidism: Plan obtain ct of head and chest, review labs, consult hospitalist, cont iv abx, cont observation, start lasix, obtain strict i's&O's Urinary Catheter Management Urinary Catheter Management Urethral: Cath placed during this visit: yes Urethral indwelling: No Insertion date: 01/13/24 Insertion time: 06:20
[2024-01-13 10:13] LABS: Band Neutrophils Absolute 0.1 10^3/uL (0.0-0.3); Lymphocytes Absolute Manual 1.34 10^3/uL (1.20-3.80)
[2024-01-13 10:14] LABS: Eosinophils Absolute Manual 0.28 10^3/uL (0.00-0.70)
[2024-01-13] MEDS: LEVOTHYROXINE SODIUM 25 MCG TABLET 50 MCG PO (10:31)
[2024-01-13] MEDS: FUROSEMIDE 20 MG/2 ML VIAL IVP (10:32)
[2024-01-13 10:34] LABS: Metamyelocytes Absolute Manual 0.48; Myelocytes Absolute Manual 0.09; Segmented Neut Absolute Manual 6.72 10^3/uL (1.4-6.5)
[2024-01-13 10:36] LABS: Monocytes Absolute Manual 0.57 10^3/uL (0.30-0.80)
[2024-01-13] MEDS: AZITHROMYCIN 500 MG in 0.9 % SODIUM CHLORIDE 250 ML 250 MG IV (10:36)
[2024-01-13] MEDS: SERTRALINE HCL 50 MG TABLET 75 MG PO (10:37)
--- OUTSIDE RECORDS SUMMARY | 2024-01-13 12:02 | XMS_ITS | CCD ---
Author Organization [facility] Inform ion Partnership [facility] Care Team Providers Care Energy Conservation Director Name Role Phone Maria Guadalupe Powers Unavailable NadiyaAydee anderson Unavailable Perla Márquez Unavailable Shun Hill Unavailable MD Shun Hill Attending Provider DO Irma Burt Primary Care Provider MD Shun Hill Attending Provider DO Irma Burt Primary Care Provider [phone] Shun Hlil Admitting Unavailabl e Irma Burt Primary Care [...] day for 10 day(s) Jul, Active amylase 489349 unt / lipase 92569 unt / protease 937455 unt delayed release oral capsule (3 sources) Start: 04-06-2023 take 2 capsules by mouth three times daily at mealtime Creon 54036-445792 UNIT 2 capsules Orally three times a [...] 1 tablet by mouth twice daily Sutab 0246-327-595 MG 12 tablets the first dose the [...] 5 day(s) September, Not-Taking 84 hr estradiol 0.64054 mg/hr transdermal system (4 sources) Estrogen take [...] URINE PROTEIN 170 mg/L High <120 [facility] Comment on above: Performed By: #### U PCR #### [facility] ([id number]) [address] [address] [place] [address] U/PRO/MAILROOM COURIER RATIO CALC 0.17 Normal <0.2 [facility] Comment on above: Result Comment: Neph rotic Syndrome is associated with ratios >3.5 Performed By: #### U PCR #### [facility] ([id number]) [address] [address] URINE CREATININE,RDM 98.06 mg/dL Normal [facility] Comment on above: Performed By: #### U PCR #### [facility] ([id number]) [address] [address] COMPLETE BLOOD COUNTon 09-16 Erythrocyte distribution width (RBC) [Ratio] 13.0 % Normal 11.5-15.0 [facility] Comment on above: Performed By: #### C BC, CMP, FEPR, 2532-0, 3084-1, TSHR, 2276-4, 2284-8, 2132-01 #### [facility] ([id number]) [address] [address] Hematocrit (Bld) [Volume fraction] 34.6 % Low 35-47 [facility] Comment on above: Performed By: #### C BC, CMP, FEPR, 2532-0, 3084-1, TSHR, 2276-4, 2284-8, 2132-01 #### [facility] ([id number]) [address] [address] [place] [address] Hemoglobin (Bld) [Mass/Vol] 11.9 g/dL Normal 11.7-15.5 [facility] Comment on above: Performed By: #### C BC, CMP, FEPR, 2532-0, 3084-1, TSHR, 2276-4, 2284-8, 2132-01 #### [facility] ([id number]) [address] [facility] [address] [place] [address] MCH (RBC) [Entitic mass] 30.9 pg Normal 27-34 [facility] Comment on above: Performed By: #### C BC, CMP, FEPR, 2532-0, 3084-1, TSHR, 2276-4, 2284-8, 2132-01 #### [facility] ([id number]) [address] [place] [address] MCHC (RBC) [Mass/Vol] 34.4 g/dL Normal 32-36 [facility] Comment on above: Performed By: #### C BC, CMP, FEPR, 2532-0, 3084-1, TSHR, 2276-4, 228-8, 2132-01 #### [facility] ([id number]) [address] [address] [place] [address] MCV (RBC) [Entitic vol] 90 fL Normal 80-100 [facility] Comment on above: Performed By: #### C BC, CMP, FEPR, 2532-0, 3084-1, TSHR, 2276-4, 228-8, 2132-01 #### [facility] ([id number]) [address] [address] [place] [address] Platelet mean volume (Bld) [Entitic vol] 9.4 fL Normal 7-12 [facility] Comment on above: Performed By: #### C BC, CMP, FEPR, 2532-0, 3084-1, TSHR, 2276-4, 2284-8, 2132-01 #### [facility] ([id number]) [address] [address] [place] [address] Platelets (Bld) [#/Vol] 181 10*3/uL Normal 150-450 [facility] Comment on above: Performed By: #### C BC, CMP, FEPR, 2532-0, 3084-1, TSHR, 2276-4, 2284-8, 2132-01 #### [facility] ([id number]) [address] [place] [address] RBC COUNT 3.85 X10E12/L Normal 3.80-5.20 [facility] Comment on above: Performed By: #### C BC, CMP, FEPR, 2532-0, 3084-1, TSHR, 2276-4, 2284-8, 2132-01 #### [facility] ([id number]) [address] [place] [address] WBC (Bld) [#/Vol] 11.3 10*3/uL High 4.0-11.0 [facility] Comment on above: Performed By: #### C BC, CMP, FEPR, 2532-0, 3084-1, TSHR, 2276-4, 2284-8, 2132-01 #### [facility] ([id number]) [address] [place] [address] COMPREHENSIVE METABOLIC PANE Charles 09-17-2023 Albumin [Mass/Vol] 3.4 g/dL Normal 3.2-5.3 [facility] Comment on above: Performed By: #### C BC, CMP, FEPR, 2532-0, 3084-1, TSHR, 2276-4, 2284-8, 2132-01 #### [facility] ([id number]) [address], [address] [place] [address] ALP [Catalytic activity/Vol] 71 U/L Normal 39-130 [facility] Comment on above: Performed By: #### C BC, CMP, FEPR, 2532-0, 3084-1, TSHR, 2276-4, 2284-8, 2132-01 #### [facility] ([id number]) [address], [address] [place] [address] ALT [Catalytic activity/Vol] 11 U/L Normal 0-31 [facility] Comment on above: Performed By: #### C BC, CMP, FEPR, 2532-0, 3084-1, TSHR, 2276-4, 2284-8, 2131-9 #### [facility] ([id number]) [address] [place] [address] Anion gap [Moles/Vol] 11 mmol/L Normal 5-15 [facility] Comment on above: Performed By: #### C BC, CMP, FEPR, 2532-0, 3084-1, TSHR, 2276-4, 2284-8, 2132-01 #### [facility] ([id number]) [address], [address] [place] [address] AST [Catalytic activity/Vol] 13 U/L Normal 0-41 [facility] Comment on above: Performed By: #### C BC, CMP, FEPR, 2532-0, 3084-1, TSHR, 2276-4, 2284-8, 2132-01 #### [facility] ([id number]) [address] [place] [address] Bilirubin [Mass/Vol] 0.3 mg/dL Normal 0.3-1.2 [facility] Comment on above: Performed By: #### C BC, CMP, FEPR, 2532-0, 3084-1, TSHR, 2276-4, 2284-8, 2132-01 #### [facility] ([id number]) [address], [address] [place] [address] Calcium [Mass/Vol] 9.0 mg/dL Normal 8.5-10.5 [facility] Comment on above: Performed By: #### C BC, CMP, FEPR, 2532-0, 3084-1, TSHR, 2276-4, 2284-8, 2131-9 #### [facility] ([id number]) [address] [place] [address] Chloride [Moles/Vol] 104 mmol/L Normal 98-109 [facility] Comment on above: Performed By: #### C BC, CMP, FEPR, 2532-0, 3084-1, TSHR, 2276-4, 2284-8, 2132-01 #### [facility] ([id number]) [address] [place] [address] CO2 [Moles/Vol] 24 mmol/L Normal 22-32 [facility] Comment on above: Performed By: #### C BC, CMP, FEPR, 2532-0, 3084-1, TSHR, 2276-4, 2284-8, 2132-01 #### [facility] ([id number]) [address] [place] [address] Creatinine [Mass/Vol] 0.46 mg/dL Normal 0.40-1.00 [facility] Comment on above: Result Comment: METH OD TRACEABLE TO IDMS STANDARD Performed By: #### C BC, CMP, FEPR, 2532-0, 3084-1, TSHR, 2276-4, 2284-8, 2132-01 #### [facility] ([id number]) [address] [place] [address] eGFR (CKD-EPI) NON-RACE DEPENDENT >90 Normal >59 [facility] Comment on above: Result Comment: Reported eGFR is based on the CKD-EPI 2020 equation that does not use a race coefficient. Performed By: #### C BC, CMP, FEPR, 2532-0, 3084-1, TSHR, 2276-4, 2284-8, 2132-01 #### [facility] ([id number]) [address] [place] [address] Glucose [Mass/Vol] 78 mg/dL Normal 65-99 [facility] Comment on above: Performed By: #### C BC, CMP, FEPR, 2532-0, 3084-1, TSHR, 2276-4, 2284-8, 2132-01 #### [facility] ([id number]) [address] [place] [address] Potassium [Moles/Vol] 4.0 mmol/L Normal 3.5-5.0 [facility] Comment on above: Performed By: #### C BC, CMP, FEPR, 2532-0, 3084-1, TSHR, 2276-4, 2284-8, 2132-01 #### [facility] ([id number]) [address] [place] [address] Protein [Mass/Vol] 6.5 g/dL Normal 6.0-8.0 [facility] Comment on above: Performed By: #### C BC, CMP, FEPR, 2532-0, 3084-1, TSHR, 2276-4, 2284-8, 2132-01 #### [facility] ([id number]) [address] [address] [place] [address] Sodium [Moles/Vol] 139 mmol/L Normal 134-146 [facility] Comment on above: Performed By: #### C BC, CMP, FEPR, 2532-0, 3084-1, TSHR, 2276-4, 2284-8, 2132-01 #### [facility] ([id number]) [address], [address] [place] [address] Urea nitrogen [Mass/Vol] 8 mg/dL Normal 5-23 [facility] Comment on above: Performed By: #### C BC, CMP, FEPR, 2532-0, 3084-1, TSHR, 2276-4, 2284-8, 2132-01 #### [facility] ([id number]) [address] [place] [address] FERRITINon 09-17-2023 Ferritin [Mass/Vol] 11 ng/mL Normal 11-307 [facility] Comment on above: Performed By: #### C BC, CMP, FEPR, 2532-0, 3084-1, TSHR, 2276-4, 2284-8, 2132-01 #### [facility] ([id number]) [address] [place] [address] Folate [Mass/Vol]on 09-17-19 24 FOLIC ACID 18.1 ng/mL Normal >5.8 [facility] Comment on above: Result Comment: NEW REFERENCE RANGE Performed By: #### C BC, CMP, FEPR, 2532-0, 3084-1, TSHR, 2276-4, 2284-8, 2132-01 #### [facility] ([id number]) [address] [place] [address] IRON PROFILEon 09-17-2023 Iron [Mass/Vol] 52 ug/dL Normal 50-170 [facility] Comment on above: Performed By: #### C BC, CMP, FEPR, 2532-0, 3084-1, TSHR, 2276-4, 2284-8, 2132-01 #### [facility] ([id number]) [address] [place] [address] IRON BINDING 580 ug/dL High 250-425 [facility] Comment on above: Performed By: #### C BC, CMP, FEPR, 2532-0, 3084-1, TSHR, 2276-4, 2284-8, 2132-01 #### [facility] ([id number]) [address] [place] [address] IRON SATURATION 9 % SATURATION Low 15-50 [facility] Comment on above: Performed By: #### C BC, CMP, FEPR, 2532-0, 3084-1, TSHR, 2276-4, 2284-8, 2132-01 #### [facility] ([id number]) [address] [place] [address] LDH [Catalytic activity/Vol] on 09-17-2023 LDH 124 U/L Normal 100-235 [facility] Comment on above: Performed By: #### C BC, CMP, FEPR, 2532-0, 3084-1, TSHR, 2276-4, 2284-8, 9 #### [facility] ([id number]) [address] [facility] [place] [address] Natriuretic peptide B [Mass/ Vol]on 09-17-2023 Natriuretic peptide B (Bld) [Mass/Vol] 66 pg/mL Normal <100.0 [facility] Comment on above: Performed By: #### C BC, CMP, FEPR, 2532-0, 3084-1, TSHR, 2276-4, 2284-8, 2132-01 #### [facility] ([id number]) [address] [facility] [place] [address] TSH WITH REFLEXon 09-17-2023 TSH 0.78 uIU/mL Normal 0.49-4.67 [facility] Comment on above: Performed By: #### C BC, CMP, FEPR, 2532-0, 3084-1, TSHR, 2276-4, 2284-8, 2132-01 #### [facility] ([id number]) [address] [facility] [place] [address] Thiamine (Bld) [Mass/Vol]on 09-17-2023 THIAMIN VITAMIN B1 See Below Normal [facility] Comment on above: Result Comment: NOTE TEST [...] developed and its performance characteristics determined by [facility]'s [facility] Pathology and Laboratory Medicine [place] ([facility]). It has not been cleared or approved by the FDA. [facility] is regulated under CLIA as qualified to perform high-complexity testing. This test is used for clinical purposes. It should not be regarded as investigational or for research. Test Performed By: [place] [address] Certified Solid Waste Facility Operator: Colin Cisneros III, M.D. CLIA #[id number] Performed By: #### C BC, CMP, FEPR, 2532-0, 3084-1, TSHR, 2276-4, 2284-8, 2132-01 #### [facility] ([id number]) [address] [place] [address] URIC ACIDon 09-17-2023 Urate [Mass/Vol] 5.1 mg/dL Normal 2.6-7.2 [facility] Comment on above: Performed By: #### C BC, CMP, FEPR, 2532-0, 3084-1, TSHR, 2276-4, 2284-8, 2132-01 #### [facility] ([id number]) [address] [place] [address] VITAMIN B12on 09-17-2023 Cobalamin (Vitamin B12) [Mass/Vol] 185 pg/mL Normal 180-914 [facility] Comment on above: Performed By: #### C BC, CMP, FEPR, 2532-0, 3084-1, TSHR, 2276-4, 2284-8, 2132-01 #### [facility] ([id number]) [address] [facility] [place] [address] TSHon 05-25-2023 Thyroid Stimulating (3Rd Generation) Hormone/ Tsh 2.200 [facility] CT abdomen w conon 3 CT abdomen w con [facility] Main [place] [address] [place] [address] CT Scan Report Signed Patient: Laura Alves MR#: [id number] 3 : 1985 Acct:[id number] Age/Sex: 37 / F ADM Date: 04/10/23 Loc: CT Room: Type: [facility] Attending Dr: Shun Hill MD Copies [...] Stan Owens M.D.04/10/2023 4:03 PM Dictation Location: [place] [address] Transcribed By: [facility] 04/10/23 0285 Dictated By: Stan Owens DO 04/10/23 2919 Signed By: 04/10/23 1605 Normal [facility] HCG ( test) IA.rapi d Ql (U)Ordered By: Shun Hill on 03-15-2023 HCG ( test) Ql (U) Negative [facility] HCG,Urineon 03-15-2023 Beta HCG ( test) Ql (U) Negative Normal [facility] Comment on above: Result Comment: PERF ORMED BY: [address] [place] [id number] PATHOLOGIST CLERK CARRIER MARINA AYALA M.D. Performed By: #### U HCG #### [place] [id number] [facility] 03-15-2023 L Specimen: [id number] Received: 03/15/23 Status: BUSTER Alfredo Num: [id number] Spec Type: Surgical Subm Dr: Shun Hill MD Tissues: A Colon Biopsy (SURVEILLANCE BX) Procedures: Deepti CHILEL/Pierce L4 Age/ Patient Sex Location Account Attending Physician Laura Alves 37/F [id number] Shun Hill MD SPEC NUM: [id number] RECD: 03/15/23 STATUS: BUSTER RAMOS NUM: [id number] SUMIT: 03/15/23- DR: Shun Hill MD ENTERED: 03/15/23 [facility] DR: SPEC TYPE: Surgical DEPT: [...] The microscopic examination confirms the diagnosis. Specimen: [id number] Received: 03/15/23 Status: BUSTER Gonsalez Num: [id number] Spec Type: Surgical Subm Dr: Shun Hill MD Tissues: A Colon Biopsy (SURVEILLANCE BX) Procedures: HE/2, Gross/Micro L4 Patient: Rick Alvesy [id number] (Continued) Specimen: [id number] Received: 03/15/23 (Continued) Signed (signatur e on file) Winston Donis MD 03/16/23 1737 Specimen: [id number] Received: 03/15/23 Status: BUSTER Alfredo Num: [id number] Spec Type: Surgical Subm Dr: Shun Hill MD Tissues: A Colon Biopsy (SURVEILLANCE BX) Procedures: DUY/Yaz, Deepti/Pierce L4 Patient: Parminder Alvessay [id number] (Continued) Specimen: Received: 03/15/23 (Continued) CPT Codes 41030 Specimen: Received: 03/15/23 Status: BUSTER Gonsalezvanessa Num: [id number] Spec Type: Surgical Subm Dr: Shun Hill MD Tissues: A Colon Biopsy (SURVEILLANCE BX) Procedures: HE/Yaz, Gross/Micro L4 Patient: Laura Alves [id number] (Continued) Signed (signatur e on file) Robbi-Tyrel Donis MD 03/16/23 1737 [facility] SARS-CoV-2 (COVID-19) RNA NA A+probe Ql (Resp)on 01-16-2023 SARS-CoV-2 (COVID-19) RNA GEORGE+probe Ql (Unsp spec) Positive [place] Other HIV 1&2 AB/AG Screen (P24 AG )on 12-13-2022 HIV 1&2 AB/AG [facility]-Reactive [facility] Hepatitis B surface antigeno n 12-13-2022 Hepatitis B Surface Antigen Negative [facility] No Panel InformationOrdered By: Rae Agudelo on 12-13-2022 [facility] Rubella IGG immune statuson 12-13-2022 Rubella immune IgG <0.90 NON IMMUNE [facility] Syphilis Total(Unknown Syphi lis Status)Ordered By: Rae Agudelo on 12-13-2022 Syphilis Non-Reactive [facility] COVID Quick Testingon 2022 Result Negative [place] Other COVID Quick Testingon 2022 Result Negative [place] Other COVID Quick Testingon 2022 Result Negative [place] Other COVID Quick Testingon 2021 Result Negative [place] Other Consent for Treatmenton 05-21 Consent for Treatment 149.45.122.20.2021 0 [id number] 318#1.00CD:127 [facility] Coding Summary.on 05-28-2021 Coding Summary. CD:[id number] CXn5qHm+PGhlYWQ+PE1 PMFJdQ55srATtnQ6NR3 xFXX5NOLWTDNKUXA5NU W8owAH1OZrwK1WtysJo MpkjyXYgHQ46UVc2NMI 3sKfoLYslbP1abIQxU6 v2AfAjEV27tM48IJqlG GHiDyE9NvGbsqprbIGl W1bbYsOqlKVsZqi+PHR hYmxlIHdpZHRoPScxMD LjGtNppEwkFZ2cZt2kD GVyLWNvbGxhcHNlOiBj w5yrNULxYWqkUC8otUf mN9JvpJR2FKQvm1f4Ut 48dHI+WJGvNNH1iVpgD Twtl818MoFos6stDCU1 zTEbWDlfQMN5Y95nv1L 8EZYqHCBiOSX7xTH6nO 8zrXwcrdtvG4GxuBNyI lL2PPE3rQOytY2qsWpw woxqcP7pLem+D88AKE9 GMGQLCD4AKdj6B2XwQf wvdHI+NW26AENqWL95n KBpcRXot5zavKv5GlNm MAFiHZQ2cNulPJefg0D yAVHxL93opDGoa5N6CY SxmUmuhEBxWwQlzOT8y N1bFJtimxxpr4jzxhvj Nqgkg4eswr27vT79M02 pNPewJBXiJKQ6EZAtNB DnvFtdwe1efQ2eUn7+I Znti8wzf8teeIr0BjVm FQBkvmOcaAhaRUE2q2V zIv82D3CayTsvz1DySn g6tp74sYBfr2I1pOC1Z GemBLSggD8iPJocGmC3 DERkXcDzeJ86iDWsHBw pQh6stWhomPibKN4zCA LnqtgcKLIagZ5tIBFhs EOwwGndJQ1tLFRaazka t891JpWcXIF7UUJouRI qV0KwcO2tEvOoWUDtVX YiY4ZruKJiFJlyK434W CsePtB1PNBughBoK4Kl QDUrnMkgBlE8q1Z4Fm5 Lh8ClccyyANP1OBuyFI DxXcZ3OfAzTrM5V8FnF zz5FBRlvVvdJB4eN2Pi WXGlcleuwpqavIM0JHD aVMMytI24nPPgQPusLy 1td6Y4o399PWKzGNFcd P20Jr2zyXokKCVnyHZF iL6rsffsg4goahxoDpS wZWOqNLo0COl1UFYlkW dvLdPtMKE8XxN6TKX0b GCkwD5jvKljdszgoB5y Oyc+P79peN2wCMR6KZC 9fhxoIIGqgyLjJR27OZ 57T3BaFzokxVUjyQX+P HRzlxEecRbaGC8aXiHt u3lvb3XbMYtjJ7UmWEL wCYdgRaf8GYXoTRE0nV N2yE8yZSCdEJoat7L8o JL9U9CjudNoat3bv1jd MMFmVIqvX46pvQHxu4K 8VQAalEB8ELPauQrqVe NjsK62Byj+PGNvbGdyb 1NoYedjn8sjm2tacQd9 IjMwJSIgdmFsaWduPSJ 8r1CfWk69T29eDRgoTZ RoPSIxNSUiIHZhbGlnb w2cgS2eJc0+PGNvbCB3 bDP3aD3bVEFqKkX1JZi kP102RpLkaQDbUerfd1 sms1olrWp1QjRnKFQyk lQnyDivDOE0y2KoJv65 J74kOKcjUMJdGLItPDE xTZBfxZzvyj8riM6oIx 8+GO6dp1cnqi89lN85v HI+ZUMrZIP6bTbuXXlw CXWsjX5uHXkbRkA5RBW aGwDvdW31nRKrRFflTz 9rkErbqGdgXP7yBPVml qzep614ObUxc4niEELi kKOcWJvsKEG3S19zo2K 9QGEbEEFvKFJ9dST6kA 1hbGlnbjogbGVmdDsgd pXitOcbSOctCRjeB049 IHRvcDsnPlBhdGllbnQ mLmGuGEt5D6QfCeo7SL HqfQedBX0ycKDkOZazM o9rfYavnPxvFX9bCDVb rtjbc269WsLka8gwIDA smULqSGclHBB0G86gl7 K3SGFwUBXdAVK9yMG3y G7yhYimazqbgSYyySby qtDulGfdVHioAMblU67 6IHRvcDsnPkJpcnRoIE DcyKB0NA89AC02pMZmk 7N1mFW4O3DrWVTjoznv numfpNL4UHBqAPNxqZ5 6Uy0kuLjeQg5cNRZrGG C0FJJnvKMfW3KtqI8qM mDsVYYyBROoA3PfwALj LDojS800OVqxYqD3WWC fwhBzL3RrHDVowOukSn L9w5E1Yi8GT8A8KX08B C21aBJvb9L4kGR9J7Yd KVBctqjkgwisyPW6OLR iEPRcjD30Pf9uwFxkJs 2lROBtAGE1DQKfzAYuV 8BhlO3sXaNuYHFuQCFc C0BypNQtRIznJ227QWj pPzW7AZWmnmNkU7LgMJ VdiUkuWrJ0h0Q7Sv7KY Es1XH03RP28pXNgj5W1 aGM0R7KhXNAtroqcfwo uuIR2AWFjPHGrpW37Md 3uoPwlDy8sCHWdPHO6K VXtkFBnT1BftT7xXuZi POVyKHFyG6TdcQFmOGc fS437BDcjFxN0RKBaie ApW1XpOLGmkTahKsI4s 0N0Jn7CGMCfTF90JJJ4 rDZ0HO59GO31H8XwMqw vdGFibGU+PHRhYmxlIH dpZHRoPScxMDAlJyBzd ZleBJ3qRj7oYLHlBPVc kQoslQNvXxAtz0xhTEF gGUkaTL6bxIeoB3TzoO O3WJNsa6v2Oc08F37lN 3JvdXA+VDDpkXE6aIS7 oM8rCvLfNxS4LBgdQ10 7RqYuvVObCwess5apa0 elzGf1YcD5FTDfcwDhd WygPQY9n4HoJd99S98q IHdpZHRoPSIxNSUiIHZ wuTnbrz2ayC1vMl1+PG KakDR2mHV5hX6xEmMxK tJ0HQabA875HrNcbTFm Wmsrq0cmq4vjaVv2NzJ zSIGwyiCahLidTSJ1y4 AlAr24Y8ZtxLbig9IjG kj4fd60yMQrv1Y0sNN7 R1AtQTFelvilmOQkxFu pRE1nRLNtegneCDLcvR 9rCDNwP0m4BtQcSvH9H XsiD6GcfyV3VCHrzDIl PUllDJG0P07kp3H8MAT cLRTdABY4lKJ1uW0ubV lnbjogbGVmdDsgdmVyd MbrSJtnRDspG339TBIl cMizMZMdiL1kRAUnlUP meCphOS9lOMZjyyafSc hDVK8EQNNOIwgnYMrPW JQOSYRIGC57FR53rDOf d2D8hPI1V7WfCSCzhtx kshzeqUZ6COEhQSSkqM 77gRVoQYxhYk9gi2Y4o 138JWUzTEUqbR29Xm3e jWqcDCUvoKCOqW9baof rf6xgsctnAkDfUUZpLQ e7TLi5VVDvzJcfYmQyX AU5RbE2LZE9fXRzoL8e fNfkmgvyjZ6zUck+MTI yIYqkYQs2KHjucAV+PH VnLQB7dDanXYwwQOKcx F3xWPBiX9a4FiQpItO7 IFpjV8QyUYXqzaieSh6 6xA9zOnAkBfO2PRvcD3 OzllR4PTCclFHhNCfiU NZ9D39lz5G0FMGiLMHv VCW6uOX2mI2yrWimeiq gbGVmdDsgdmVydGljYW cyTKpbO530WEGchZuqF mK5FWkpXBSoOA17UU41 sRXjm8M3wNW2U3CrUPX nfrbeqkgpsDB5ZJAkAS EhgU99fAVeIJfcUv6du 0W4a385XCJaZWItwF77 Ia2hhVdjPSQrmWXKmL6 loifxr7qelcptWkRoNH XtVCn2OGu4SAAcvJwjC rSuCTX7CjI1XCR3iNHu yE9hgLiphznmdS0fErq +BoOjKDhqBY56DG83nL Zfa2H0mHB5V7NfLZJyp olqqxxdvHB3RMHePSPi lF51oSJsAStmDh4rq4H 5u740YYZqCNJpmZ05Ko 2qeMvvQXNdzFWUlP3jd zmsk2thrmmcNjOeACSm CBk9DWv8LJMjdIulXqD kWOH5PsR0RNU3bWOdgD 1xkFsjeqyfeZ2lWyw+U tTygIBdaS3tSI35HB93 Y2NcPqgqzLGlbWF+PHR hYmxlIHdpZHRoPScxMD IuEeOzrQzzVU0xLr8zO GVyLWNvbGxhcHNlOiBj y9yrVSXxXNgsJO8viBt sP1MusVG5ANXxx7q7Bo 49F03cQ4FvmCP+PGNvb UP2bHB9oG0fJiZqEpD4 SXvrJ520JtKboQTzJlz wx6umv9kupLg1AgKlMZ QyuyWnkKsvCBV0t8PxA e57S50eEXyrENSuAMVu PCSdKLSdoPvrsw0kxI9 wIi8+GDJiiHS2kWX6dL 1mJjQqJyT4MXdhH308A xErmWNoIgpwW54cR8Su dXA+PPRwAnl8NYHewFl nTS6wpGSvYSsyPl6cDI Z0OmQkFvMpDRoeS8YhP QCuvpfzytgisCE9OCFi WMAjmF79Io2qpTsrVr0 pUTRkHHI9WQSreNJsW4 RxsH9oRjPuGBIeQUPnU 6UslNLfADcjP786QTiv DnI1WZMhxbBqF7QtWES vkOklLwE2p5I7Gi4AoP wwsURnAH2eGrWcEFz1V 4UwCkt4OMDzoEffUD6j cPKmFRcwUv8afKdpgTm rJJ1nFITjulpuq847Dl Wlh9ucQXLguUIrCYaaH LC6U14kj3O8GMBjLOUo KOI7gJF0bG2uhGrpkqu gbGVmdDsgdmVydGljYW ocLImlJ152ASXvjTghX zPLPqv8I0YmFvi8AGOe yUaaEV7vzDMeUCptSc6 nqTrusOzxOW8iBBOaqq unx179XwOua9cjYOPnb NVvHLpeVIR2E79ys8L1 JUCpXBXgUBZ6cXI8yR3 hbGlnbjogbGVmdDsgdm UwqIlpPEktSSflP833G QYaaXhdTu1PWyp7J4Jl Hlg1EJHhpBvaTY8tkRI hMTzpSl6ieOqtaSwrTY 6mZZPwlubsl280NfBin 2ftPINmgLKkNHvhXRQ5 W04mx7E9AKXbDWCrVKH 4zEY5pI3kxCjalsaycC VmdDsgdmVydGljYWwtY NqhM932RTOfoTtdHdCl eWVyOjwvdGQ+FV01xx8 7F0TbFfxsEvb2WGFiQD U3bRV4hA5kIRQdFIsfk 5S0nJO0V6IvgaDxbq1s b2xs (more content not included)... Normal [facility] Priority Order-Juan 2021 Priority Order-STAT Comment Invalid Interpretation Code [facility] Comment on above: Result Comment: Rece ived Performed at: [facility] [address] [facility], [place] [id number] [facility] Mina Jones Performed By: #### S ARS-CoV-2, GEORGE, [id number] #### [facility] [address] [place] [address] SARS-CoV-2, NAAon 05-25-2021 SARS-CoV-2 (COVID-19) RNA GEORGE+probe Ql (Resp) Not detected Invalid Interpretation Code Not Detected [facility] Comment on above: Result Comment: This nucleic acid amplification test was developed and its performance characteristics determined by [employer]. Nucleic acid amplification tests include RT-PCR and [...] detected) result in this assay. Performed at: [facility] [address], [place] [id number] PhD Shalom Gonzalez Performed By: #### S ARS-CoV-2, GEORGE, [id number] #### [facility] [address] [place] [address] Family Medicine Phone Visit - Telehealthon 05-22-2021 [...] 6 months ago. Has been using DayQuil vvds-pfv-bdtcufd with moderate improvement. Review of Systems Fatigue: [...] only communication with the patient located at [address] [place] [address] [phone], with no one else. If it is [...] Patient verbalized understanding Ordered: Rapid COVID Antigen [place] Telephone Est 5 to 10 minutes [id number] 2. Fatigue (R53.83: Other fatigue) see above plan, rule out covid. Ordered: Rapid COVID Antigen ([facility] Telephone Est 5 to 10 minutes [id number] 3. BMI 27.0-27.9,adult (Z68.27: Body mass index [...] 1035F Telephone Est 5 to 10 minutes 02068 Follow-up With When Contact Information Irma Burt [...] Methamphetamines, Pre (more content not included)... Normal [facility] Comment on above: Result Comment: [...] Reviewed: 03/20/2018 Elsevier Patient Education ? 2019 [employer] [facility] Physician Orderon 04-27-2021 Physician Order [id number] 8#1.00CD:127 [facility] Coding Summary.on 11-04-2020 Coding Summary. CD:[id number] RZo1fNt+PGhlYWQ+PE1 OZYDmJ16kmYEmpC7DJ8 tEZU2NNQUNJVKXLW1YQ S5ynPF2ULsaB5RxroCn QcarkZPtSE02AHn0DVM 6tDlhXNtvvG1csMKiD1 o9WxEsGA47oE39SDqoW GUsGtX5AmBstfyfxQIx L5tyCpAlnQJcXii+PHR hYmxlIHdpZHRoPScxMD IlFzYadVpuHP7aVt7oW GVyLWNvbGxhcHNlOiBj r5tqYZKqUQasUJ9jfAw mQ5WwhNP0DMDuv8y3Mw 48dHI+FSJxHTH2hLsqC Ecme940QlFim9stVOK3 eOMpDRefEKA6L61gi4H 7BKIuXKGdVRY6mEU6cA 3oaCyewnbbO8XzfOIzS iF1AHA9iPMntJ7phPmp fjzbfC7mLfq+X03CBF6 WPUZBCR5CGnu9C4MtBg wvdHI+OP29RQNsLY18v OBjrVCsw2amuHl4NwVp PHJiDYN5wYncQObob9Q aKRZaC47diVKtk3E8IL QufAbeoKDoUfBxsCU1b C4oZGfnsbxdu0taawbg Apeev1xbtt08dR79N01 oHXoqPCGuSKN1LDCbQR HjaMoevj4ywB2hWv6+I Ecld8nxw3ynjBt8ViYf YNCrydBkiAmjMKT9i9N wNf19I4KtlCwjy8PdEx h4lc84bXVhl3C7dDQ6Q YtoOPNzpB7wDIjzWmN1 YUVnQjQrqQ13eRLzADs uPu4ooXozxUigNY3vQA IiyfxtELOmyH4zKOBus OCuuLshJD5oIYUpexxg t343PcAjKRE1JFZahXJ qY9JrfO7yEiYxCAHqVS BwR2MbmMTsPBkqJ077I PakTjX9EVMtptApZ2Gs WGCilPseKtP5r4Y8Qg3 Cs0DafmieKYP5RPleZZ W6YiD0AyVwCjO4G4GlM hr1ZHEbaRclJC4yU7Fh ZRWjphculavxbAK7TPZ pEJHzhO05rUBxITesZo 3bf9G7f081KCPhVFWnz C13Gh9tjFypWQSuyBLJ dQ3qtrdmf1cxapgvKzH zBUUbNVd1LZy3DUVsuZ qaNzOzBOH4LrI4RXN5t DWriN3dnRqbvunheB8m Oyc+K29lyR8lPPN3QIK 3dfnhUJGgmvUiWE64GI 97H1WbGyzsvLWllAA+P XBqykMvoEfsKX5dQeNa e4ahx6LxKMjiH5XjSYR eVVgvHog2QWNlPBO8kZ H2oG6eHZJkVGldu8O5i QM1K0MbsjKcpx9xb6hs MHEsBKtaT67qrRQgd7G 8TJHsdDT1HLMzeWleMu RqsF96Uzf+PGNvbGdyb 2SkIlido3kwl6dxmXj7 IjMwJSIgdmFsaWduPSJ 1v2GrOj16N66lONljXB RoPSIxNSUiIHZhbGlnb c3wiO3eVv2+PGNvbCB3 zQA1xN8eABBwYrB4ZYm fA085AxYlrNUkGownj5 myk8qmzEd7ZtMyZQZob mCptArkMKB6j7RjJj13 R23mKOncBIZjSFVxXRO cFHHdyTngrb4wgX9kKv 8+KD9pf3gmev59zD02y HI+OEBeKFT6iXlkJKbc FLQdxT3oZJhwKxB0HHI aTpTguP06qTZrNPheWg 8xuHstbRquEO2nFDSyg ghrt085UvDsj9iyIWDe hNGlJJycUXI9D19zk2R 5WDXmJQWoZYX4oRP8kL 1hbGlnbjogbGVmdDsgd oGtoSejVSxrPUriT482 IHRvcDsnPlBhdGllbnQ pIjRfBDs5G7LrGcb9VK HedBenFN6auDJzPBgqB m4fvJdvoZlyJD9sIWWv phvko623TjTmg6xfFBZ iiQMmXAeiQID8M68nj4 V7PDNhYMUgFOK9sJR6h B5jrTgfwaxieTTztTxz meRykAuvFYqcGKxnQ44 6IHRvcDsnPkJpcnRoIE BiaRK0RJ04ZQ95wGNfw 0M3mXL2U4TnLSZwtnmt rzepzLA6UUElJEOssO5 8Bw2ycIgkSu6qQRBkQQ S1ZHQpmIWwB2FcwH3aD rSqPPDwEWNfP2ZyzKPo KQvdP251YCpbCuC5MQZ swgHjD0MuGEHayTyeVb U2a9A2Kl4HN6R1KA10X S21tSYfe1X4bOU1X4Pw XRTfrsbnfeixuEP6GWE fZMIpmX76Zs2ggWwtKl 0wBMLdLFK5ZWQwcPGwX 4LbaZ0yUuNxLWQiURZa P8JppXIvBGqoN414ZVn kZoI3PBGxicPqH0KpZG VhgQkbSmV6d5I2Kr8VJ Fj7JV88TQ91rIXsk9Z4 jPT1W6TeRMBfgrxigpb ckBZ3PKBbGTMiqG52Dv 7miHyePt2jFGKnEAJ1D TZybJLcX5UbnA5aTuUn SKJlMOOdD1RvvLRkOZg dU697QDssWjR4CEPzzf EiS4IiVESbvOtrHvE7d 7C5Jv1XOYXxTE84YRZ3 rHZ4JO85IP71R6YcOdv vdGFibGU+PHRhYmxlIH dpZHRoPScxMDAlJyBzd NklVL7wNx9eYLBzXQSi sNdzcAWtNjNuw6lqTYO iPVrfSB4fbVzxA3AwwB L0JIEtw7m3Hv86B36mK 3JvdXA+RHDuzGP2qYF3 pU5jEzQiSbR9QEttR42 5ZdTzyZGhNvlje9jfq1 kzcXw5NsP5DTZgfoRog DqgJYX6a7HvNf69E58i IHdpZHRoPSIxNSUiIHZ dpIyqxx8zlV1fPz3+PG DnzNX5sTO9yA6dHuCnA aS7DXqfV881WgAdlKPs Xlfyf6pad0okhHr2PvQ vHXUowmWfxYzbGUH3z5 GpQj37Y1LndMmmm5HcS cz9uf30vSLex7Q6lDT5 X0KkEDBfweeszYAfoQb fPW8wZLEpfiggGOBueB 7mDNDcX8o6KeZlWkT2G BroH5ZxnmK8CMBauDGa EXiuECT2V07fv2H9UQC xXAPnHRU9hSC9cA9rxT lnbjogbGVmdDsgdmVyd VseLUsxRLelT648LUGa dRxzATGlyZ5vKXDkkAB efUfhPE0qFYNbawpsMb rIJD6PKJOBTqugZXsAR XNSPKEJHY79BO22wAMx d6S6gAZ4T0SrRBQyvvc vnscyaDG8VRQrCVYkdC 97nZBgSKinWz4qk2Y2i 764RKJuTEMgjR43Rk6a pMpeTTXwqLIOyL6ofxz un8jyawlxRrVaQRAtOT u7IRl3ORVtmLizQwGzD CS5SkX2XLP4cFLgrK7c tAcemwzwyX0nLse+MTI cKKppATo4SGmofJB+PH WaFGA3hEisKYygDVOgx G5cFDPmY0h7GpLdJaU1 TQjhE5WrNVLoptgjEf7 2kD5zHlCuJzI3BVfwL5 WlwwR8CTUhrKJqVVdfK RE1Q43io8G4KTSsPHIp KZQ7gDL2gG0dySfxezb gbGVmdDsgdmVydGljYW bxNBhoW479ABXwdQunV zZ3SDxnCBKhQM94OC71 iWHot0R9tTK0V6VlECX dnnxoypbaaKP6BUGmMT UwxV83aCCeCSizVd3ye 6S5w178CGSjAZQxuE55 Ie3bpUfcLUPyoMTUeQ9 oxyjuu8xjrdwzOzPnXS AeKRv5FVk0HGLzkTxlD aHvTDB0TbF0ROA9dRXo mI8flJxbrkfkyG3dNfw +UsCzZTljPJ57TV55hZ Afm5F4yDB9J0EqPOUvc mbdjmzxoAX5SYAtQDFa oT07dEOxRJjoMo5om1R 6s511KYWeTOWuzS12Nj 9xmLswUUIszZQArH3zo pmda3gbfkewLcOxTKBg PJu0HVb3BSLzcGvhPwI qEJG3AkE8VWC8bPOfyU 8raFgjswftkA2rCla+T 6D0lDW0vLXhmCzzeAH+ QS68vi86W5AxLacmRwy 6BSEtRFM3pUX4oW8iMK YlJMila3R1wQO0J0Zdy kNbmt2az2pbQILcHPvn M36hhUMxc5B3AKDbdYH 1VHRykCrsAwOmmS14Kf c+VGPxjYpgo3LgKkwsm 0xad9mcuKx6LyBsSWJm zlOqbMqfZLU2p0KgNt9 0S78rALxvQSOnKBHpZD AtGGRmdAzvlx6uqJ8lW i8+WCJflID3yCI4rE8j BhLoTiT1ZLcoI571TbX sqEFoLtwgv4uxd9jhuS m9IaMrRUWfvkWtlOdrO PV5w0WqIl68G6CqlFyv q4LkXuf5vj64yVMbl5L 9fPQ9W2FjPQUeznyvgO GlzSrxLI2bUMDnwazbU BYmcB9qLAOcS9z0XlHx BfZ9XFknL6IbdbU3KRE coPHbZJWjaNPItQ4qyc sad6uimzclLcCbOOZxB Nc4XZd7HFVkgKkiTzRr CPJ4DtF8IWI5uZYopE8 znJkfxheksG7cPqw+UG e3r5rynRTlIJ6lxLM5Q V63FH25jAWcb2O6qDM7 S3NjELKfhlrwdzecpWY 1DADpGPMdjX69Yh6kgS sqQn8bEOKvBMK2YOSgm HRvL7CjuQ8xJpLrCVKs UBRcG8TtaPMyVVqjL08 5STgbKjG4WETdzlMoI0 IxWGPxwUomJlT6z3H2T g6TUK61CT01YP43cQNt y4T9ePQ8G8McOMKtrgs hnlnqsPI5LQZaNPYzvC 94Fc3llHvhZb8yWMUnM SD5DJIedVZhJ8GjuS1i ZqFmGOCaGSEvU1VakQT gYLgrE774GNrqFnH5FS OsvuMeK4EvQDIfqQaqS cQ9i2J0Ul1DXj97BG28 CN79kJFlt1B7cKR4F2T gYWXigcpbazqriXC0WK JtELEzmC63Ux9fwIryU t6sOIQyHJI0CTTzzJPh C9AnaH6nFpXuZDOfRAM uY5MtqNUsQQaxZ832BD dqNyG5GRDvbcFcX5RwI RZqxXiaEmE5l6B1Nz5E RTwzwyg6Z1NvFqaymAP +DB18QEVcQI42qLCeoX Mog5wjbPv0HuAuLFSqS NR7hQkyEQcfg8HzAWTo Y29s (more content not included)... Normal [facility] CT Chest w/ Contraston 10-29 [...] Contrast amount in ml's: 100 Normal [facility] Coding Summary.on 10-28-2020 Coding Summary. CD:[id number]:[id number] HYu2pZp+PGhlYWQ+PE1 RTXYfK66guXTmuG8EG6 sLCW8ICMEETOFSPD7TZ C8nqZE0OFqbH0SzlxDd ThvofITpOR88ERj7PSE 7aMfpWYqfjL4dnTRtO7 m4AtAfFE96tM45OKhtE EIiTdK1VsXaoctqkRVc M4ndBwLshZMtBoe+PHR hYmxlIHdpZHRoPScxMD QkRoAheBxkGB3bWl9pW GVyLWNvbGxhcHNlOiBj p7btFYCmYHuuPP1xdUg pC2DukHO6FDLry4j3Zv 48dHI+FESvEDN8xTbwB Fbkv659HpAif2eiREQ5 zPKfWWxhBSI3K02go2N 5NEWfWMHmJAK3sWW2zJ 4vuTktsuvmM6OgbFTtD aY5IWD6hABdfT2nfXmw qkqlfV9cUdv+Q68CTH6 ZQWUDHN4QUbl0D5OcDi wvdHI+XR53RPDiBD86k XHiyRMlc3zhyZz8DfVn VOOoQIW2yKpxCZjkm5T lTUOyY78noOZmt8U2VC YeuGgekBLnNhStuAZ6z A8rIAmhfwwou7wooojq Bsxpt1ngbs90iU87V14 sRCqvVQTrJOL8TMNzDL IboHystq2jiM2tEc0+I Dbrh2kdo9srvXq0XxCl QVTyqrOtdPkhVNF7t8D jAi54B8JkwVgbt8KoHz m1nt51uMQcz4Q4eGA9O EldUIEkzY1bGIdsJaZ9 IPUjSvYakV03eFYuRQm mQm3mbXmfaMloTA6cXP YwoctoLXBgmB0rIVPab JMpcYatNK5hFVOchywf w229SiWuAJZ1YEIxwLJ wU0JtaY7sZcTrZBWyGZ LiF0ScuCPmPCekV202R LtxXuR1UDJwimFuP5Oo DUIugTpdTyJ2h3C1Uc5 Di8UhugqcBFJ9WLgkIB F4YpPgUyFlYoF9M5IfE ek9CWOrtTazND5cH2Ld DQSqwvdkqupnyNH5AZU yLVQusI97iNKuBIbhWz 0tv2D9p975XTGiXCUos A07Sd7njNrjTTVcgNDU qD8zdaphd9swervaHkE cAUJvYZj3WIk2PBEniJ giWkVtNEL1KoQ2VPV7n RNmfF1idLbelayiyE7d Oyc+Q47qdZ9oKTW6THJ 7rhveLGDokyTtXM82MD 21M9PwGqjmvTSdvQA+P JSxvcXikKmvGW3dTsFq y3hks5WnSYccK6RhJPR qFNjdJok7NIWiKTT9dN C5dD7vYKRjIUxcq9J0i XL4G8ShwjHamr1lo4kn HIYpQJwmH58huGVva1P 7MAErbIM8LASenAypQx SeeJ71Nds+PGNvbGdyb 0StNstpr2xmp9hidWv1 IjMwJSIgdmFsaWduPSJ 0b0UnHl35D31lTJxrFP RoPSIxNSUiIHZhbGlnb z8blZ7hRg9+PGNvbCB3 zQR5kJ1cPHFzQzV2DLk cH831IyYpyBNsAmaxp1 kyw9qnmVy8UeNxMROpl oCucHfeMPL8k3SyDh77 O16zCRvqBELbAXZhVGS tIFOudJqigy5opZ0sOt 8+WA4io9grqu19nT69a HI+PTJfBLA5aAxrVGot GJJmmS0bURlfSjW0KZJ iEgTbhX49nXWtEGwlUs 8hcKxwaPppFY6kGUIqd ovsv025GsLnn9miAMLr nFTvANnnCOJ6D24if1B 7DNNmMFDpIPP9oSX5gI 1hbGlnbjogbGVmdDsgd zRgtGsnAWsbUAdxL895 IHRvcDsnPlBhdGllbnQ iPyGdWHm8R3TcVdb3BX GysIsoJA4duWBcXEllC f2otYocsEsyLJ5pAJSb nvywj131TdJsi2cqXRA grPFiGJozMPF6K34tu7 H0QHSpIIUiHWZ3aCS9x U8rfJwriobepXStcOmk lrDzsBhyNTmgVPbwW21 6IHRvcDsnPkJpcnRoIE WvnAX4QM60IX57hKDbh 3H1jYG6X9ImBTYdhljp juxrgER1TGVoPRZwjW5 5Fw6llKovRv0yFUMgBS O1OOUwjXOaZ0CwaS7oP aYhHMThRSTcL7JvgGYz IGvuL991RBflDzI3DHB oldNuT4XkLFCweEjqZp R8n1R0Cn7EA8B7WY12I S29iBZtr5N3nGL8L9Xc XUFgeneijgfkvOY2KCT gBNYffU18Nc8jqJyiGe 5jEKMhTHD6MCZecYSlY 8RhsH1uJmNpKGVtCLZp K7JjoUObMPbcP831DWv zEhH3IPOtyySeI8KsVU EndKwrQfF6y9W0Ji2SA Lk2AY49HI62iDRkx6Q1 aYL7C5NrCEXotnmtxsi eaSR0AZYsNDCtqE20Jx 2uuQbvMu1jKUZmUNW4I FKpkYJlN7EvtC2lEbCo PRIjWXKkC5SszVPqBWq lK411BVdkPuI7ZDWgls FaB1SbUXDgtHooPzG2x 9F3Dp0BVIEsOD67GOS6 bZY2GC12PH52M9MhJjx vdGFibGU+PHRhYmxlIH dpZHRoPScxMDAlJyBzd JkoKT6rTz5nDDSyOMTx gEemuFPhGcJmj5uyRJK hKRshQB6ojNifQ7SgpR W8LDJon8u3Fs66S97wH 3JvdXA+JIRuuAE2cZD8 fO7fNgAlFbB7FZfdU90 0ItYchIJgSwiip6sue7 bdmRd6ZmQ3FEXutkFan RuuIUC9x1JtMo34F06m IHdpZHRoPSIxNSUiIHZ okDjukn8qrV8kFh7+PG QgxBU6zDE6dR8qNyXbK hE5XCvmS877AfLdaVNg Wpltm5vae6afhLx4PpM pIZTgskAzyVisANR5p9 FmYi09Y4KzqLuwg6SrF zc0mw01bYNer5H9yTB9 E2GnTWUlwogxxVQuqSd vZU4iBJBsmhlkIMLhvF 2yOHZjZ5k3WfGgJaA8B XhoC2VffrP4SPEtdPTr CCtoBDF1B93en9L3ONM jREBhLZT6kQG9dM6kjL lnbjogbGVmdDsgdmVyd FroGCguGZuyV653CPIi uDlbOWDsdS8gTOQxjAN hvTuhMU8kOFSjjfqzQz xUVW4ZEAMMJikrMEvNM OTABKJXYM57EU89jCHn n3T8jPZ7T0BaUVIwuzq viakyeKS9WDTaAUHgdX 22aQHcWBnvMn0pe0V2p 467WTUqSQBibD45Xr8u wQmmVSNwmCYJkN3xpij xc3dzskkxYpOnCCAaHM o3HZa0RAHzzZqgCyUpT HZ3YjA9DZX3uMEaxO0b gOrzgxwwlR1xGcs+MTI bIRubJZe9DWrtkWI+PH GqKMU7mMsjQAavLXOqu A4yRRMkP3u1JzLdVbH6 FKjmA9PjEWHrevylMh5 3iN1oKkYrOmA5RUwxX2 LdacN4USCqkAQyMVfhM ZS7W63ov1S7GYMwDOKd FYD0kKJ9rO8hlEecgnt gbGVmdDsgdmVydGljYW amUWbgZ212ODNhwZmzF gT5MCbjUSGoCM07FH37 aZBsp6V1aYT7A6IkRYX zezbptubuvNZ0FZVcRS HhfA78fLZgMIrzLf8dk 2J0p892GZHaIWUtzT85 Yx6vxNqrYWDpsJOOzK8 ymrvpn2wkiiwyViCtDG DuTRg1VSw1LTYshGnhV qWdNMF8DpC3UGZ5wKCi lY2ftPlhbtgogZ2oTaq +CmHyTZtyGP83NR57zB Hjd9C1qNB0R1FpRIXcg uyhzwzukBD6OUKhGNAh yO48iLWrNLujMc4zf4I 0t934ZDMiRBYqdL75Iy 7orMosDPQsrDPSoL7rt gttk5pmuswdOtDgDMVk MBa3UZm9LJUsjEjaGvO gERR5ZnT4DIC9aKZxuY 2ajMylqudloH0fZhh+T 4X9gIV8dASivWgpyQP+ FT32vx70D2NeXocfFzk 6MQXpJWC1eRF5pR3zUM NwTNkbu9B5qKB4C5Upq eDadz1xl3vfTCYiDYfu A96rmEXpx5P0PFTfaLQ 5OZWaeTgsLcYdnO83Zq c+QSZznVfhn1XpViruk 0ylm1mqbSp2HjAiMQSh enYcxPscPUR7p4ZqZu1 1R86nJXqhKHGxRQKzLO FyYQIecRupek1crN2dF i8+PKBsrBK1uQJ3qK7a PtDbBaX3LUvoG585QbS kfGNgEmzkq2jdn1xibL s7HyLmSNUmeuJoiKorP UI3o2SuMc84S8XqyUst w5RfBcs2th61eNMjn3L 0xSO6S7GpAPLgfmidzN BptOedNL3rUZUafzduJ NEivT9sALFbF2q5XeDx XwM8CJodB5PnufN6KCU imADqJUYtlUKRyC8bve uty0krqtvhKrHyDRKzM Yv5MWo0DDJpqIigXmEw CZP8LqT1CFV5gLKgeI9 mbYkfpkaohJ0eRlv+UG o0k7nzeYGxBL2jjUH0Z U41NE89aAHlh1Y1zMD6 C4GeXBThpyvxtmaxtYB 1PCLlYXAcjM51Qm4zdK rbGq2mOFMaMNA1LDWjr YHdB8KyjY1gRzUyYTFl FVUkA2GcoJWiMAvgD43 8QFgnDxP6YDLtysQtC4 OyYAEctEnfYfP6v3E1A c2ZHN52NZ66WD86iGMa p3I9vZD8E5PhVASiyku uhyyluQV4GJYfDWUrsQ 85Az1aiCwaSm9fRDVgQ YC0XUQowADuA5WtrR3l HmDnPSBdJOHtQ4MdmOQ tRKjxK998KLweDkZ4JF EcrsTuI0SsYBZopBzxC wN3i9F8Wp1QGj84XK77 CQ59nAKky2A1oLQ8R2U dSDSowwlxfjiwjLS1GB FdZABvzH22Mp7irAwhK r9tHWIzGLA5VVVyiMKz B4FmrS2xAkGyGECkVBO wW7AqxJNtVQxlT889IC ozRkC4UWVilsNuU4WkG GJmwLnoKrI2v5L6Qx7D ZKuposj1D7VdGpxonNE +MI85JBVxVX81bKOlxB Udw7aeaFq8CkTgPRZpS LZ9fNxiGYsax7FkWDJs Y29s (more content not included)... Normal [facility] Consent for Treatmenton Consent for Treatment [id number] 44#1.00CD:127 [facility] Physician Orderon 10-21-2020 Physician Order [id number]#1.00CD:127 [facility] Consent for Treatmenton Consent for Treatment [id number] B4#1.00CD:127 Normal [facility] Physician Orderon 10-19-2020 Physician Order [id number]#1.00CD:127 Normal [facility] XR Chest 2 [facility] XR [...] M.D. Transcribed by: SHAYNA Technologist: BECKI Corona [facility] Vital Signs Date Time Vital Sign Value Performing Clinician Facility 07-26-2023 11:27-0500 Body height 170.2 cm Kaitlyn Jasso MD Work Phone: [employer] 06-12-2023 13:00-0500 Body height 170.18 cm Shun [facility] Other [facility] Other 06-12-2023 13:00-0500 Body mass index (BMI) [Ratio] 35.24 kg/m2 Shun Haleormack Other [facility] [employer] Other 06-12-2023 13:00-0500 Body weight 102.06 kg Shun Hill Other [facility] Other 03-15-2023 12:29-0400 Diastolic blood pressure 89 mm[Hg] DO Irma Burt Work Phone: [facility] 03-15-2023 12:29-0400 Heart rate 70 /min DO Irma Burt Work Phone: [facility] 03-15-2023 12:29-0400 Respiratory rate 16 /min DO Irma Burt Work Phone: [facility] 03-15-2023 12:29-0400 SaO2% (BldA) [Mass fraction] 100 % DO Irma Burt Work Phone: [facility] 03-15-2023 12:29-0400 Systolic blood pressure 132 mm[Hg] DO Irma Burt Work Phone: [facility] 03-15-2023 08:54-0400 Body height 170.18 cm DO Irma Burt Work Phone: [facility] 03-15-2023 08:54-0400 Body weight 90.71 kg DO Irma Burt Work Phone: [facility] 02-08-2023 14:45-0400 Body height 170.18 cm Shun Hill Other [place] Other 02-08-2023 14:45-0400 Body mass index (BMI) [Ratio] 34.92 kg/m2 Shun Hill Other [place] Other 02-08-2023 14:45-0400 Body weight 101.15 kg Shun Hill Other [place] Other 02-08-2023 14:45-0400 Diastolic blood pressure 80 mm[Hg] Shun Hill Other [place] Other 02-08-2023 14:45-0400 Systolic blood pressure 131 mm[Hg] Shun Hill Other [place] Other 01-16-2023 10:35-0400 Body height 170.18 cm Aydee Nadiya Other [place] Other 01-16-2023 10:35-0400 Body mass index (BMI) [Ratio] 35.2 kg/m2 Aydee Nadiya Other [place] Other 01-16-2023 10:35-0400 Body temperature 98.3 [degF] Aydee Nadiya Other [place] Other 01-16-2023 10:35-0400 Body weight 101.97 kg Aydee Nadiya Other [place] Other 01-16-2023 10:35-0400 Diastolic blood pressure 66 mm[Hg] Aydee Nadiya Other [place] Other 01-16-2023 10:35-0400 Respiratory rate 18 /min Aydee Nadiya Other [place] Other 01-16-2023 10:35-0400 SaO2% (BldA) [Mass fraction] 98 % Aydee Nadiya Other [place] Other 01-16-2023 10:35-0400 Systolic blood pressure 105 mm[Hg] Aydee Nadiya Other [place] Other 09-23-2022 10:45-0400 Body height 170.18 cm Aydee Nadiya Other [place] Other 09-23-2022 10:45-0400 Body mass index (BMI) [Ratio] 35.13 kg/m2 Aydee Nadiya Other [place] Other 09-23-2022 10:45-0400 Body temperature 99.2 [degF] Aydee Nadiya Other [place] Other 09-23-2022 10:45-0400 Body weight 101.74 kg Aydee Nadiya Other [place] Other 09-23-2022 10:45-0400 Diastolic blood pressure 80 mm[Hg] Aydee Nadiya Other [place] Other 09-23-2022 10:45-0400 Respiratory rate 18 /min Aydee Nadiya Other [place] Other 09-23-2022 10:45-0400 SaO2% (BldA) [Mass fraction] 98 % Aydee Nadiya Other [place] Other 09-23-2022 10:45-0400 Systolic blood pressure 125 mm[Hg] Aydee Hearn Other [place] Other 09-04-2022 11:20-0400 Body height 170.18 cm Aydee Hearn Other [place] Other 09-04-2022 11:20-0400 Body mass index (BMI) [Ratio] 31.32 kg/m2 Aydee Hearn Other [place] Other 09-04-2022 11:20-0400 Body temperature 97.8 [degF] Aydee Hearn Other [place] Other 09-04-2022 11:20-0400 Body weight 90.72 kg Aydee Hearn Other [place] Other 09-04-2022 11:20-0400 Respiratory rate 18 /min Aydee Hearn Other [place] Other 09-04-2022 11:20-0400 SaO2% (BldA) [Mass fraction] 99 % Aydee Hearn Other [place] Other Encounters Encounter Date Encounter Type Care [...] pital Start: 09-20-2023 End: 09-21-2023 ambulatory KAITLYN [facility] Start: 09-18-2023 End: 09-18-2023 ambulatory SAGAR LUKE Not Available Start: 09-17-2023 End: 09-17-2023 ambulatory SAGAR R LUKE [facility] Start: 09-17-2023 End: 09-17-2023 ambulatory KAITLYN [facility] Start: 08-31-2023 End: 09-04-2023 ambulatory FROYLAN Rascon RACHEL [facility] Start: 08-15-2023 End: 08-15-2023 ambulatory IRMA KD Not Available Start: 07-26-2023 Chart abstracting Kaitlyn Jasso MD Work Phone: [facility] Start: 07-18-2023 End: 07-18-2023 ambulatory SAGAR LUKE Not Available Start: 06-20-2023 End: 06-20-2023 ambulatory Shun Hill Other [place] Other Start: 06-20-2023 Telephone encounter Shun infante [facility] Start: 06-19-2023 End: 06-19-2023 ambulatory SAGAR BUTLER Not Available Start: 06-12-2023 End: 06-12-2023 ambulatory Shun Hill Other [place] Other Start: 06-12-2023 Office outpatient vi sit 15 minutes Shun Hill [facility] Start: 05-01-2023 End: 05-01-2023 ambulatory Shun Hill Facility:[facility] Start: 05-01-2023 End: 05-01-2023 ambulatory DO Irma D Burt Work Phone: [facility] Work Phone: Start: 05-01-2023 End: 05-01-2023 Patient encounter procedure DO Irma Burt Work Phone: [facility] Work Phone: Start: 04-10-2023 End: 04-10-2023 ambulatory Shun Haleormack Facility:[facility] Start: 04-10-2023 End: 04-10-2023 ambulatory DO Irma D Burt Work Phone: [facility] Work Phone: Start: 04-10-2023 End: 04-10-2023 Patient encounter procedure DO Irma Burt Work Phone: [facility] Work Phone: Start: 04-06-2023 End: 04-06-2023 ambulatory hSun Hill Other [place] Other Start: 04-06-2023 Telephone encounter Shun infante [facility] Start: 03-20-2023 End: 03-20-2023 ambulatory Shun Hill Other [place] Other Start: 03-20-2023 Telephone encounter Shun Moncada naresh [facility] Start: 03-19-2023 End: 03-19-2023 ambulatory Shun Liz Other [place] Other Start: 03-19-2023 Telephone encounter Shun Moncada naresh [facility] Start: 03-15-2023 End: 03-15-2023 ambulatory Shun Hill Facility:[facility] Start: 03-15-2023 End: 03-15-2023 Admission to same day surgery center DO Irma Burt Work Phone: [facility] Work Phone: Start: 03-15-2023 End: 03-15-2023 ambulatory DO Irma Landrum Burt Work Phone: [facility] Work Phone: Start: 02-26-2023 End: 02-26-2023 ambulatory Shun Lzi Other [place] Other Start: 02-26-2023 Telephone encounter Shun Moncada naresh [facility] Start: 02-08-2023 End: 02-08-2023 ambulatory Shun Liz Other [place] Other Start: 02-08-2023 Office outpatient ne w 45 minutes Shun Hill [facility] Start: 01-16-2023 End: 01-16-2023 ambulatory Aydee Hearn Other [place] Other Start: 01-16-2023 Office outpatient vi sit 15 minutes Aydee Nadiya [facility] Start: 09-23-2022 End: 09-23-2022 ambulatory Aydee Nadiya Other [place] Other Start: 09-23-2022 Office outpatient vi sit 15 minutes Aydee Nadiya [facility] Start: 09-04-2022 End: 09-04-2022 ambulatory Aydee Hearn Other [place] Other Start: 09-04-2022 Nursing evaluation o f patient and report Aydee Hearn [facility] Start: 07-12-2022 End: 07-12-2022 ambulatory Perlarolo Márquez Other [place] Other Start: 07-12-2022 Office outpatient vi sit 5 minutes Perla Márquez [facility] Start: 07-07-2022 End: 07-07-2022 ambulatory Aydee Hearn Other [place] Other Start: 07-07-2022 Encounter for other preprocedural examination Aydee Hearn [facility] Start: 07-07-2022 Nursing evaluation o f patient and report Aydee Hearn [facility] Start: 02-03-2022 End: 02-03-2022 ambulatory Maria Guadalupe Powers Other [place] Other Start: 02-03-2022 Office outpatient vi sit [...] Td Vaccines (3 - Td or Tdap) [facility] Start: 09-17-2023 End: 09-17-2023 Patient encounter procedure 09/17/2023 8:45 AM EDT Office Visit [facility] [address] [place] [id number] Kaitlyn Jasso MD [address] [facility] 1st [place] [address] [facility] Start: 09-17-2023 End: 09-17-2023 Patient encounter procedure 09/17/2023 7:30 AM EDT Appointment [facility] [address] [place] [id number] [facility] Start: 05-01-2023 [facility] Start: 03-15-2023 [facility] Start: 01-19-2023 COVID-19 Vaccine ( season) COVID-19 Vaccine ( season) [facility] Start: 01-19-2023 Influenza vaccination Influenza Vacc ine [facility] Start: 12-30-2021 Adult BMI Screening Adult BMI Screen ing [facility] Start: 2006 Screening for malign ant neoplasm of cervix Pap Smear [facility] Start: 1997 Depression Screening Depression Scre ening [facility] Start: 1997 Tobacco Screening Tobacco Screening [facility] Immunizations Immunization Date Immunization Notes Care Provider Fa cility 02-03-2020 influenza virus vaccine, unspecified formulation Kaitlyn Jasso MD Work Phone: [facility] Payers Date Payer Category Payer Private Health Insurance [id number] 2023 Self-pay [id number] 2018 Private Health Insurance [employer] POS II [id number] 2018-Present [phone] [address] [place] [address] [id number] 1985 Unknown [id number] 2.16.840.1.993950.3.579.2 .1285 1985 Unknown [id number] 2.16.840.1.657407.3.579.2 .1285 1985 Unknown [id number] 2.16.840.1.106715.3.579.2 .1285 1985 Unknown [id number] 2.16.840.1.459387.3.579.2 .1285 1985 Unknown [id number] 2.16.840.1.558920.3.579.2 .1285 1985 Unknown [id number] 2.16.840.1.763676.3.579.2 .1285 1985 Unknown [id number] 2.16.840.1.812034.3.579.2 .1285 1985 Unknown [id number] 2.16.840.1.948474.3.579.2 .1285 1985 Unknown [id number] 2.16.840.1.774337.3.579.2 .1285 1985 Unknown [id number] 2.16.840.1.632031.3.579.2 .1285 1985 Unknown [id number] 2.16.840.1.045725.3.579.2 .1285 1985 Unknown [id number] 2.16.840.1.328391.3.579.2 .1285 1985 Unknown [id number] 2.16.840.1.198391.3.579.2 .1259 1985 Unknown [id number] 2.16.840.1.862655.3.579.2 .1258 1985 Unknown [id number] 2.16.840.1.922812.3.579.2 .9 1985 Unknown [id number] 2.16.840.1.698121.3.579.2 .1258 1985 Unknown [id number] 2.16.840.1.356953.3.579.2 .1258 1985 Unknown [id number] 2.16.840.1.527114.3.579.2 .1258 1985 Unknown [id number] 2.16.840.1.982606.3.579.2 .1258 1985 Unknown [id number] 2.16.840.1.323658.3.579.2 .1258 1985 Unknown [id number] 2.16.840.1.891749.3.579.2 .1258 1985 Unknown [id number] 2.16.840.1.100222.3.579.2 .1259 Medicaid [facility] [id number] Private Health Insurance [id number] Unknown [facility] [id number] Unknown [id number] 2.16840.1.482859.3.579.2 .531 Unknown [id number] 2.16840.1.624135.3.579.2 .531 Unknown [id number] 2.16840.1.119472.3.579.2 .531 Social History Date Type Detail Facility Start: 06-30-2020 End: 07-26-2023 Sex Assigned At [facility] [employer] Other Start: 03-15-2023 End: 03-15-2023 Tobacco smoking status NHIS Ex-smoker (finding) [facility] Start: 1985 Sex Assigned At Female [facility] Start: 11-17-2020 Tobacco smoking stat us NHIS Smokes tobacco daily [facility] History of tobacco use Tobacco U se Types Packs/Day Years Used Date Smoking Tobacco: Every Day Vaping/E-cigarettes Smokeless Tobacco: Never [facility] Start: 11-17-2020 Tobacco use and exposure Smokeless tobacco non-user [facility] Start: 07-26-2023 Alcohol intake Current drinke r of alcohol (finding) [facility] [facility] Start: 06-30-2020 End: 07-26-2023 History of Social function [facility] Childcare Unknown [facility] Start: 11-17-2020 Alcohol Comment social [facility] Start: 05-04-2023 [facility] Start: 1985 Sex Assigned At Not on file P [facility] Goals Date Patient Goal Desired [...] Mayelin Pinto DO on 08/31/2023 11:23 AM [facility] 06-12-2023 Evaluation note Encounter Date Diagnosis Assessment Notes May, Diarrhea (ICD-10 - R19.7) Patient reports that she is about 7-8 weeks gestational Patient reports improvement on Creon with occasional flare Patient reports that she is taking a fiber supplement May, Fatty liver (ICD-10 - K76.0) Patient did have a FibroScan that indicates fatty liver and minimal scaring, this will be reviewed [facility] 11-17-2023 Evaluation note* Encounter Date Diagnosis Assessment Notes Treatment Notes Treatment Clinical Notes Mar, Exocrine pancreatic insufficiency (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) [facility] 10-31-2023 Evaluation note* Encounter Date Diagnosis Assessment Notes Treatment Notes Treatment Clinical Notes Feb, Alternating constipation and diarrhea (ICD-10 - R19.8) Feb, Fecal urgency (ICD-10 - R15.2) [facility] 10-30-2023 Evaluation note* Encounter Date Diagnosis Assessment Notes Treatment Notes Treatment Clinical Notes Feb, Alternating constipation and diarrhea (ICD-10 - R19.8) [facility] Encounter Date Diagnosis Assessment Notes Treatment Notes Treatment Clinical Notes Feb, Alternating constipation and diarrhea (ICD-10 - R19.8) [facility] 09-21-2023 Evaluation note* Encounter Date Diagnosis Assessment Notes Treatment Notes Treatment Clinical Notes Jan, Alternating constipation and diarrhea (ICD-10 - R19.8) WORSENING DIARRHEA AND CONSTIPATION OVER THE PAST YEAR. DOES HAVE SOME NOCTURNAL AWAKENINGS WITH THE DIARRHEA. CAN GO 4-5 DAYS WITH OUT A BOWEL MOVEMENT WHEN SHE IS CONSTIPATED. WILL ORDER IBS WORK UP WILL PROCEED WITH COLONOSCOPY [facility] 08-29-2023 Evaluation note* Encounter Date Diagnosis [...] no improvement in 2 to 3 days [facility] 2023 Evaluation note* Encounter Date Diagnosis [...] no improvement in 2 to 3 days [facility] 04-17-2023 Evaluation note* Encounter Date Diagnosis Assessment Notes Treatment Notes Treatment Clinical Notes Aug, Contact with and (suspected) exposure to other viral communicable diseases (ICD-10 - Z20.828) [facility] 02-22-2023 Evaluation note* Encounter Date Diagnosis Assessment Notes Treatment Notes Treatment Clinical Notes Jun, Contact with and (suspected) exposure to covid-19 (ICD-10 - Z20.822) [facility] 02-17-2023 Evaluation note* Encounter Date Diagnosis Assessment Notes Treatment Notes Treatment Clinical Notes Jun, Preoperative clearance (ICD-10 - Z01.818) [facility] 09-16-2022 Evaluation note* Encounter Date Diagnosis Assessment Notes Treatment Notes Treatment Clinical Notes Jan, Contact with and (suspected) exposure to covid-19 (ICD-10 - Z20.822) [facility] Evaluation note* Diagnosis Onset Date Resolution Status Diarrhea acute [facility] Work Phone: Evaluation noteNo [email or web address] [email or web address] Other History general Narrative - Reported* Type Description Date Medical History ANXIETY AND DEPRESSION [facility] Discharge instructions Additional Instructions DISCHARGE [...] if you have any problems. -Office number [phone] Work Phone: InstructionsNot on filedocumented in this encounter [employer] SystemReason for visit NarrativeRED EQUINOX, ANTIGEN PROCEDURE TESTNoAcronym Media, Inc. Other Reason for visit NarrativeNEEDSNEGATIVE, RAPID COVID TEST FOR PROCEDURENoAcronym Media, Inc. 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 [facility] [employer] [facility]. provides no warranty or guarantee of the accuracy or completeness of information in this document.
[2024-01-13 13:38] LABS: Glucometer 119 mg/dL (74-106)
[2024-01-13] MEDS: CEFAZOLIN SODIUM/DEXTROSE,ISO 1 GM/50 ML PREMIX IV ×2 (14:01→22:13)
--- NOTE | 2024-01-13 14:42 | PC.NURSE ---
Nurse assesses for clonus on left foot initially was one beat with toe twitching, none to right foot noted. nurse performed spike care placed new chux and pad under patient and performed clonus check again minimal twitch to right foot noted, and left foot again twitched one time then toes twitched separately. Nurse had Ewa RN perform clonus check and clonus was found to be absent bilaterally. DTR's to bilateral upper extremities were +1 and BLE were +2.
[2024-01-13 17:37] LABS: Glucometer 123 mg/dL (74-106)
[2024-01-13 19:30] LABS: Glucometer 111 mg/dL (74-106)
[2024-01-14] VITALS (58 sets, daily range): BP systolic 100–137; BP diastolic 62–93; PULSE 90–123; TEMP 36.7–38.3; O2SAT 86–100
[2024-01-14] MEDS: OXYCODONE HCL/ACETAMINOPHEN 5MG/325MG 2 TAB PO (00:30)
--- NOTE | 2024-01-14 05:48 | PC.NURSE ---
02 remains off at this time. SP02 is on to monitor sats and are at 100 %
[2024-01-14] MEDS: LEVOTHYROXINE SODIUM 25 MCG TABLET 50 MCG PO (05:50)
[2024-01-14] MEDS: CEFAZOLIN SODIUM/DEXTROSE,ISO 1 GM/50 ML PREMIX IV ×3 (05:51→22:08)
[2024-01-14 06:52] LABS: Glucometer 98 mg/dL (74-106)
--- NOTE | 2024-01-14 07:39 | P.OBPN_ITS ---
OB - PN: Subj Subjective Narrative: pt states greatly improved, headaches are improving, denies significant vaginal bleeding, pt denies cp, ct, sob has improved Exam Constitutional Vital Signs, click to edit/add: Last Vital Signs Temp 98.2 F 01/14/24 05:18 Pulse 90 01/14/24 05:18 Resp 20 01/14/24 05:18 BP 111/73 01/14/24 05:18 Pulse Ox 100 01/14/24 05:47 O2 Del Method Room Air 01/14/24 05:47 O2 Flow Rate 2 01/14/24 05:18 Documenting provider has reviewed patient's vital signs: yes Common normals: no apparent distress Respiratory Common normals: normal respiratory effort and clear to auscultation bilaterally Cardio Common normals: regular rate and regular rhythm GI Common normals: Normal to inspection, nondistended, normoactive bowel sounds pre sent Extremity Common normals: no calf tenderness Results Labs Labs: Short CBC 01/13/24 Range/Units 07:04 WBC 9.6 (4.0-11.0) 10^3/uL Hgb 7.0 L (12.0-16.0) g/dL Hct 21.7 L* (36.0-48.0) % Plt Count 193 (150-450) 10^3/uL BMP 01/13/24 07:04 Sodium 139 Potassium 3.4 L Chloride 104 Carbon Dioxide 23.1 BUN 8.0 Creatinine 0.76 Glucose 100 Calcium 8.2 L Liver Function 01/13/24 Range/Units 07:04 Total Bilirubin 0.3 (0.2-1.0) mg/dL AST 20 (15-37) U/L ALT 20 (14-59) U/L Alkaline Phosphatase 114 (46-116) U/L Albumin 1.9 L (3.4-5.0) g/dL Urinary Catheter Management Urinary Catheter Management Urethral: Cath placed during this visit: yes, but has since been removed by the nurse Urethral indwelling: No Insertion date: 01/13/24 Insertion time: 06:20 Removal date: 01/14/24 Removal time: 05:40 OB - PN: A/P Assessment and Plan (1) Severe pre-eclampsia: Qualifiers: Trimester: unspecified trimester Qualified Code(s): O14.10 - Severe pre-eclampsia, unspecified trimester (2) UTI (urinary tract infection): Assessment and Plan: cont abx Qualifiers: Urinary tract infection type: acute cystitis Hematuria presence: without hematuria Qualified Code(s): N30.00 - Acute cystitis without hematuria (3) Hypothyroidism: Assessment and Plan: cont synthroid 50mcg Qualifiers: Hypothyroidism type: acquired Qualified Code(s): E03.9 - Hypothyroidism, unspecified (4) Gestational diabetes mellitus: Assessment and Plan: hold insulin Qualifiers: Gestational diabetes mellitus control: insulin-controlled Trimester: unspecified trimester Qualified Code(s): O24.414 - Gestational diabetes mellitus in , insulin controlled (5) Headache: Qualifiers: Headache chronicity pattern: unspecified pattern Headache type: unspecified Intractability: intractable Qualified Code(s): R51.9 - Headache, unspecified Plan start labetalol, cont abx, dc home later today if continuing to improved Time Spent with Patient Time: Total time spent is greater than 50% in coordination of care (as documented) at patient's floor/unit and/or counseling patient: Total time spent with greater than 50% in coordination of care (as documented) at patient's floor/unit and/or counseling patient: less than 15 minutes
--- OUTSIDE RECORDS SUMMARY | 2024-01-14 08:24 | XMS_ITS | CCD ---
Author Organization [facility] Inform ion Partnership [facility] Care Team Providers Care Completion Supervisor Name Role Phone Maria Guadalupe Powers Unavailable NadiyaAydee anderson Unavailable Perla Márquez Unavailable Shun Hill Unavailable MD Shun Hill Attending Provider DO Irma Burt Primary Care Provider MD Shun Hill Attending Provider [phone] DO Irma Burt Primary Care Provider [phone] Shun Hill Admitting Unavailabl e Irma Burt [...] day for 10 day(s) Jul, Active amylase 016184 unt / lipase 24211 unt / protease 121864 unt delayed release oral capsule (3 sources) Start: 04-06-2023 take 2 capsules by mouth three times daily at mealtime Creon 33832-400129 UNIT 2 capsules Orally three times a [...] 1 tablet by mouth twice daily Sutab 9183-382-564 MG 12 tablets the first dose the [...] 5 day(s) September, Not-Taking 84 hr estradiol 0.20604 mg/hr transdermal system (4 sources) Estrogen take [...] URINE PROTEIN 170 mg/L High <120 [facility] Comment on above: Performed By: #### U PCR #### [facility] ([id number]) [address] [place] [address] U/PRO/PAINTER HELPER SIGN RATIO CALC 0.17 Normal <0.2 [facility] Comment on above: Result Comment: Neph rotic Syndrome is associated with ratios >3.5 Performed By: #### U PCR #### [facility] ([id number]) [address] [address] URINE CREATININE,RDM 98.06 mg/dL Normal [facility] Comment on above: Performed By: #### U PCR #### [facility] ([id number]) [address] [address] COMPLETE BLOOD COUNTon 09-16 Erythrocyte distribution width (RBC) [Ratio] 13.0 % Normal 11.5-15.0 [facility] Comment on above: Performed By: #### C BC, CMP, FEPR, 2532-0, 3084-1, TSHR, 2276-4, 2284-8, 2132-01 #### [facility] ([id number]) [address] [address] Hematocrit (Bld) [Volume fraction] 34.6 % Low 35-47 [facility] Comment on above: Performed By: #### C BC, CMP, FEPR, 2532-0, 3084-1, TSHR, 2276-4, 2284-8, 2132-01 #### [facility] ([id number]) [address] [place] [address] Hemoglobin (Bld) [Mass/Vol] 11.9 g/dL Normal 11.7-15.5 [facility] Comment on above: Performed By: #### C BC, CMP, FEPR, 2532-0, 3084-1, TSHR, 2276-4, 2284-8, 2132-01 #### [facility] ([id number]) [address] [facility] [address] [place] [address] MCH (RBC) [Entitic mass] 30.9 pg Normal 27-34 [facility] Comment on above: Performed By: #### C BC, CMP, FEPR, 2532-0, 3084-1, TSHR, 2276-4, 2284-8, 2132-01 #### [facility] ([id number]) [address], [address] [place] [address] MCHC (RBC) [Mass/Vol] 34.4 g/dL Normal 32-36 [facility] Comment on above: Performed By: #### C BC, CMP, FEPR, 2532-0, 3084-1, TSHR, 2276-4, 228-8, 2132-01 #### [facility] ([id number]) [address] [place] [address] MCV (RBC) [Entitic vol] 90 fL Normal 80-100 [facility] Comment on above: Performed By: #### C BC, CMP, FEPR, 2532-0, 3084-1, TSHR, 2276-4, 228-8, 2132-01 #### [facility] ([id number]) [address] [place] [address] Platelet mean volume (Bld) [Entitic vol] 9.4 fL Normal 7-12 [facility] Comment on above: Performed By: #### C BC, CMP, FEPR, 2532-0, 3084-1, TSHR, 2276-4, 2284-8, 2132-01 #### [facility] ([id number]) [address] [place] [address] Platelets (Bld) [#/Vol] 181 10*3/uL Normal 150-450 [facility] Comment on above: Performed By: #### C BC, CMP, FEPR, 2532-0, 3084-1, TSHR, 2276-4, 2284-8, 2132-01 #### [facility] ([id number]) [address], [address] [place] [address] RBC COUNT 3.85 X10E12/L Normal 3.80-5.20 [facility] Comment on above: Performed By: #### C BC, CMP, FEPR, 2532-0, 3084-1, TSHR, 2276-4, 2284-8, 2132-01 #### [facility] ([id number]) [address], [address] [place] [address] WBC (Bld) [#/Vol] 11.3 10*3/uL High 4.0-11.0 [facility] Comment on above: Performed By: #### C BC, CMP, FEPR, 2532-0, 3084-1, TSHR, 2276-4, 2284-8, 2132-01 #### [facility] ([id number]) [address], [address] [place] [address] COMPREHENSIVE METABOLIC PANE Charles 09-17-2023 Albumin [Mass/Vol] 3.4 g/dL Normal 3.2-5.[address] [facility] Comment on above: Performed By: #### C BC, CMP, FEPR, 2532-0, 3084-1, TSHR, 2276-4, 2284-8, 2132-01 #### [facility] ([id number]) [address], [address] [place] [address] ALP [Catalytic activity/Vol] 71 U/L Normal 39-130 [facility] Comment on above: Performed By: #### C BC, CMP, FEPR, 2532-0, 3084-1, TSHR, 2276-4, 2284-8, 2132-01 #### [facility] ([id number]) [address], [address] [place] [address] ALT [Catalytic activity/Vol] 11 U/L Normal 0-31 [facility] Comment on above: Performed By: #### C BC, CMP, FEPR, 2532-0, 3084-1, TSHR, 2276-4, 2284-8, 2131-9 #### [facility] ([id number]) [address], [address] [place] [address] Anion gap [Moles/Vol] 11 mmol/L Normal 5-15 [facility] Comment on above: Performed By: #### C BC, CMP, FEPR, 2532-0, 3084-1, TSHR, 2276-4, 2284-8, 2132-01 #### [facility] ([id number]) [address], [address] [place] [address] AST [Catalytic activity/Vol] 13 U/L Normal 0-41 [facility] Comment on above: Performed By: #### C BC, CMP, FEPR, 2532-0, 3084-1, TSHR, 2276-4, 2284-8, 2132-01 #### [facility] ([id number]) [address], [address] [place] [address] Bilirubin [Mass/Vol] 0.3 mg/dL Normal 0.3-1.2 [facility] Comment on above: Performed By: #### C BC, CMP, FEPR, 2532-0, 3084-1, TSHR, 2276-4, 2284-8, 2132-01 #### [facility] ([id number]) [address], [address] [place] [address] Calcium [Mass/Vol] 9.0 mg/dL Normal 8.5-10.[address] [facility] Comment on above: Performed By: #### C BC, CMP, FEPR, 2532-0, 3084-1, TSHR, 2276-4, 2284-8, 2131-9 #### [facility] ([id number]) [address], [address] [place] [address] Chloride [Moles/Vol] 104 mmol/L Normal 98-109 [facility] Comment on above: Performed By: #### C BC, CMP, FEPR, 2532-0, 3084-1, TSHR, 2276-4, 2284-8, 2132-01 #### [facility] ([id number]) [address], [address] [place] [address] CO2 [Moles/Vol] 24 mmol/L Normal 22-32 [facility] Comment on above: Performed By: #### C BC, CMP, FEPR, 2532-0, 3084-1, TSHR, 2276-4, 2284-8, 2132-01 #### [facility] ([id number]) [address], [address] [place] [address] Creatinine [Mass/Vol] 0.46 mg/dL Normal 0.40-1.00 [facility] Comment on above: Result Comment: METH OD TRACEABLE TO IDMS STANDARD Performed By: #### C BC, CMP, FEPR, 2532-0, 3084-1, TSHR, 2276-4, 2284-8, 2132-01 #### [facility] ([id number]) [address], [address] [place] [address] eGFR (CKD-EPI) NON-RACE DEPENDENT >90 Normal >59 [facility] Comment on above: Result Comment: Reported eGFR is based on the CKD-EPI 2020 equation that does not use a race coefficient. Performed By: #### C BC, CMP, FEPR, 2532-0, 3084-1, TSHR, 2276-4, 2284-8, 2132-01 #### [facility] ([id number]) [address], [address] [place] [address] Glucose [Mass/Vol] 78 mg/dL Normal 65-[address] [facility] Comment on above: Performed By: #### C BC, CMP, FEPR, 2532-0, 3084-1, TSHR, 2276-4, 2284-8, 2132-01 #### [facility] ([id number]) [address], [address] [place] [address] Potassium [Moles/Vol] 4.0 mmol/L Normal 3.5-5.0 [facility] Comment on above: Performed By: #### C BC, CMP, FEPR, 2532-0, 3084-1, TSHR, 2276-4, 2284-8, 2132-01 #### [facility] ([id number]) [address], [address] [place] [address] Protein [Mass/Vol] 6.5 g/dL Normal 6.0-8.[address] [facility] Comment on above: Performed By: #### C BC, CMP, FEPR, 2532-0, 3084-1, TSHR, 2276-4, 2284-8, 2132-01 #### [facility] ([id number]) [address] [place] [address] Sodium [Moles/Vol] 139 mmol/L Normal 134-[address] [facility] Comment on above: Performed By: #### C BC, CMP, FEPR, 2532-0, 3084-1, TSHR, 2276-4, 2284-8, 2132-01 #### [facility] ([id number]) [address], [address] [place] [address] Urea nitrogen [Mass/Vol] 8 mg/dL Normal 5-23 [facility] Comment on above: Performed By: #### C BC, CMP, FEPR, 2532-0, 3084-1, TSHR, 2276-4, 2284-8, 2132-01 #### [facility] ([id number]) [address], [address] [place] [address] FERRITINon 09-17-2023 Ferritin [Mass/Vol] 11 ng/mL Normal 11-307 [facility] Comment on above: Performed By: #### C BC, CMP, FEPR, 2532-0, 3084-1, TSHR, 2276-4, 2284-8, 2132-01 #### [facility] ([id number]) [address], [address] [place] [address] Folate [Mass/Vol]on 09-17-19 24 FOLIC ACID 18.1 ng/mL Normal >5.8 [facility] Comment on above: Result Comment: NEW REFERENCE RANGE Performed By: #### C BC, CMP, FEPR, 2532-0, 3084-1, TSHR, 2276-4, 2284-8, 2132-01 #### [facility] ([id number]) [address], [address] [place] [address] IRON PROFILEon 09-17-2023 Iron [Mass/Vol] 52 ug/dL Normal 50-170 [facility] Comment on above: Performed By: #### C BC, CMP, FEPR, 2532-0, 3084-1, TSHR, 2276-4, 2284-8, 2132-01 #### [facility] ([id number]) [address], [address] [place] [address] IRON BINDING 580 ug/dL High 250-425 [facility] Comment on above: Performed By: #### C BC, CMP, FEPR, 2532-0, 3084-1, TSHR, 2276-4, 2284-8, 2132-01 #### [facility] ([id number]) [address], [address] [place] [address] IRON SATURATION 9 % SATURATION Low 15-50 [facility] Comment on above: Performed By: #### C BC, CMP, FEPR, 2532-0, 3084-1, TSHR, 2276-4, 2284-8, 2132-01 #### [facility] ([id number]) [address], [address] [place] [address] LDH [Catalytic activity/Vol] on 09-17-2023 LDH 124 U/L Normal 100-235 [facility] Comment on above: Performed By: #### C BC, CMP, FEPR, 2532-0, 3084-1, TSHR, 2276-4, 2284-8, 9 #### [facility] ([id number]) [address] [place] [address] Natriuretic peptide B [Mass/ Vol]on 09-17-2023 Natriuretic peptide B (Bld) [Mass/Vol] 66 pg/mL Normal <100.0 [facility] Comment on above: Performed By: #### C BC, CMP, FEPR, 2532-0, 3084-1, TSHR, 2276-4, 2284-8, 2132-01 #### [facility] ([id number]) [address] [place] [address] TSH WITH REFLEXon 09-17-2023 TSH 0.78 uIU/mL Normal 0.49-4.67 [facility] Comment on above: Performed By: #### C BC, CMP, FEPR, 2532-0, 3084-1, TSHR, 2276-4, 2284-8, 2132-01 #### [facility] ([id number]) [address] [place] [address] Thiamine (Bld) [Mass/Vol]on 09-17-2023 THIAMIN VITAMIN B1 See Below Normal [facility] Comment [...] developed and its performance characteristics determined by [facility]'s Jordan Norbert [facility] [place] ([facility]). It has not been cleared or approved by the FDA. [facility] is regulated under CLIA as qualified to perform high-complexity testing. This test is used for clinical purposes. It should not be regarded as investigational or for research. Test Performed By: [place] [address] [facility] Partner: Colin Cisneros III, M.D. CLIA #[id number] Performed By: #### C BC, CMP, FEPR, 2532-0, 3084-1, TSHR, 2276-4, 2284-8, 2132-01 #### [facility] ([id number]) [address], [address] [place] [address] URIC ACIDon 09-17-2023 Urate [Mass/Vol] 5.1 mg/dL Normal 2.6-7.2 [facility] Comment on above: Performed By: #### C BC, CMP, FEPR, 2532-0, 3084-1, TSHR, 2276-4, 2284-8, 2132-01 #### [facility] ([id number]) [address], [address] [place] [address] VITAMIN B12on 09-17-2023 Cobalamin (Vitamin B12) [Mass/Vol] 185 pg/mL Normal 180-914 [facility] Comment on above: Performed By: #### C BC, CMP, FEPR, 2532-0, 3084-1, TSHR, 2276-4, 2284-8, 2132-01 #### [facility] ([id number]) [address] [place] [address] TSHon 05-25-2023 Thyroid Stimulating (3Rd Generation) Hormone/ Tsh 2.200 [facility] [employer] [facility] CT abdomen w conon 3 CT abdomen w con [facility] Main [employer] [address] [place] [address] CT Scan Report Signed Patient: Laura Alves MR#: [id number] 3 : 1985 Acct:[id number] Age/Sex: 37 / F ADM Date: 04/10/23 Loc: CT Room: Type: [facility] Attending Dr: Shun Hill MD Copies [...] Stan Owens M.D.04/10/2023 4:03 PM Dictation Location: [place] [address] Transcribed By: [facility] 04/10/23 0534 Dictated By: Stan Owens DO 04/10/23 2397 Signed By: 04/10/23 160 Normal [facility] HCG ( test) IA.rapi d Ql (U)Ordered By: Shun Hill on 03-15-2023 HCG ( test) Ql (U) Negative [facility] HCG,Urineon 03-15-2023 Beta HCG ( test) Ql (U) Negative Normal [facility] Comment on above: Result Comment: PERF ORMED BY: [address] [place] [id number] PATHOLOGIST PEDIATRIC OCCUPATIONAL THERAPIST MARINA AYALA M.D. Performed By: #### U HCG #### [place] [id number] [facility] 03-15-2023 L Specimen: [id number] Received: 03/15/23 Status: BUSTER Alfredo Num: [id number] Spec Type: Surgical Subm Dr: Shun Hill MD Tissues: A Colon Biopsy (SURVEILLANCE BX) Procedures: Deepti CHILEL/Pierce L4 Age/ Patient Sex Location Account Attending Physician Laura Alves 37/F [id number] Shun Hill MD SPEC NUM: [id number] RECD: 03/15/23 STATUS: BUSTER RAMOS NUM: [id number] SUMIT: 03/15/23- DR: Shun Hill MD ENTERED: 03/15/[address] [facility] [address]: SPEC TYPE: Surgical DEPT: S [...] The microscopic examination confirms the diagnosis. Specimen: [id number] Received: 03/15/23 Status: BUSTER Gonsalez Num: [id number] Spec Type: Surgical Subm Dr: Shun Hill MD Tissues: A Colon Biopsy (SURVEILLANCE BX) Procedures: HE/2, Gross/Micro L4 Patient: Rick Alvesy [id number] (Continued) Specimen: [id number] Received: 03/15/23 (Continued) Signed (signatur e on file) Winston Donis MD 03/16/23 1737 Specimen: [id number] Received: 03/15/23 Status: BUSTER Alfredo Num: [id number] Spec Type: Surgical Subm Dr: Shun Hill MD Tissues: A Colon Biopsy (SURVEILLANCE BX) Procedures: DUY/Yaz, Deepti/Pierce L4 Patient: Parminder Alvessay [id number] (Continued) Specimen: Received: 03/15/23 (Continued) CPT Codes 63591 Specimen: Received: 03/15/23 Status: BUSTER Gonsalezvanessa Num: [id number] Spec Type: Surgical Subm Dr: Shun Hill MD Tissues: A Colon Biopsy (SURVEILLANCE BX) Procedures: HE/Yaz, Gross/Micro L4 Patient: Laura Alves [id number] (Continued) Signed (signatur e on file) Robbi-Tyrel Donis MD 03/16/23 1737 [facility] SARS-CoV-2 (COVID-19) RNA NA A+probe Ql (Resp)on 01-16-2023 SARS-CoV-2 (COVID-19) RNA GEORGE+probe Ql (Unsp spec) Positive [employer] Other HIV 1&2 AB/AG Screen (P24 AG )on 12-13-2022 HIV 1&2 AB/AG [facility]-Reactive [facility] Hepatitis B surface antigeno n 12-13-2022 Hepatitis B Surface Antigen Negative [facility] No Panel InformationOrdered By: Rae Agudelo on 12-13-2022 [facility] Rubella IGG immune statuson 12-13-2022 Rubella immune IgG <0.90 NON IMMUNE [facility] Syphilis Total(Unknown Syphi lis Status)Ordered By: Rae Agudelo on 12-13-2022 Syphilis Non-Reactive [facility] COVID Quick Testingon 2022 Result Negative [employer] Other COVID Quick Testingon 2022 Result Negative [employer] Other COVID Quick Testingon 2022 Result Negative [employer] Other COVID Quick Testingon 2021 Result Negative [facility] Other Consent for Treatmenton 05-21 Consent for Treatment 149.45.122.20.2021 0 [id number] 318#1.00CD:127 [facility] Coding Summary.on 05-28-2021 Coding Summary. CD:[id number]:[id number] BFt7tHy+PGhlYWQ+PE1 NVKJtS07hkVVenL9BK9 vPWE2XXPXPZJQCKT3TT Q6cfMB6NTemP6NfkcUs NysdpYMmLL50QDm4ZYA 6kJqiHYaogX1vjMCjG2 j6DeDeVK33mA28ZOnxB LVmFvG6PyHukxvebLIo G1ifKrEodRZoGih+PHR hYmxlIHdpZHRoPScxMD UmJwFaoLjyZO1dLs4lG GVyLWNvbGxhcHNlOiBj u3bqLLOwXPywOK3arAo gE3ErbPP5YHFbd6a6Mw 48dHI+SFWqCYL6sHljO Jvnj345UeEzv3btBLB4 wQXvUAydADS7J90dp9T 2TXAfBFBgFDB6gKA2pQ 7gkObrzvgwV0UtyZBpE bX3GXE3uRLneU9itZor ayhfuB0xWmu+Q96VZG4 VMAGEGB6FHtb4V8BtMg wvdHI+LV75WIDyJA97h EPurEUch6fxaNt1BxJa WJZhALC8bSqjFObro2X tTDZtX08ixWXuo1S9LY TbxSftzGArPvFdrQV1l D0wUAqjltpkh8feomig Qosgc3qxbx24yT91M93 zAHbgPWLwWYY4BESkSF SdoOyaoz3dtQ1fEh3+I Qlxb3bqc8zcwMq8RtQv ZHPragJilGtwMRG1z7X fPh84X2YwbZraj1RtIv p3qt40aQJzh6G9yAB3N OefYRCiaA9yFEqyPpN1 TEOoKlPwbB87tDWjRVo yJd1giCbifFjwJW4qFK AmqaonJHVafE8nTUFku ANjeLneWX9hNJHldcfa p213YtGwRJF4WPJfeDC gY5XuuO9bFxOxDAZrXF KvQ4YhoDEvKEqgM548P YqtZbB9NNLtgnWiN1Oo BZKobXbkIfC2s2I6Hj5 Yj2UytzoxSPK7GZguGD NxZgV0LwPzScY1E6HgL yf7GSYueIiaSN2lT9Eb MIIhohyebyudnPK6YWM hBLVmtC22fBEhVDsaMr 5cj1V9d043ATXoPQTuk F94Hz7reUtnWEEgfXER tV9ltllum8eitzxlDeS pFLAeZIg7BDx4LJTqeE boJcRkKFH9FiD8YRJ9h JErlU8tbAikywntaG0k Oyc+D87zoA9xAAK4YNW 4irifUMKabyWeTF33UR 09C9SzObzdzYMvoNO+P KSkfrStwPtjQD2dXcQe e5ruu7OgQTeeD4IcFTN sIQnrWeb6IWEfZAJ3tV W1sP4eEUYyAWoex6O4f JG3X9QyanEwrd6wf1dq GRFhQRowP72nqBRfn8C 4BCNejXJ2LACwuDjhLx MaqA82Hht+PGNvbGdyb 6XuJdwpp4zzh8fjeUt7 IjMwJSIgdmFsaWduPSJ 0f1KrVp48U59hLZktXI RoPSIxNSUiIHZhbGlnb a9peW6xMx3+PGNvbCB3 bZK3kS8pSGExUrH6BQf eS578OvWitAToSrpdp6 jlo9tmoUk4WgNtSNZgr oUkyIjrRBD1a5UpJk31 S68vQYllQQWjJXIwXQH yGFJwcPonhq2xjH6jNn 8+NY9id7vkik92cH71e HI+UEDuHCJ7zOsaPVxr PHNviY4fQWglMwM7PEE vXqOxlS50xPNlVUiqGr 7egSnhtBoyAX0dVBTin tjdz703AfXtc6xeCBLn dRWqGQffENN8T82gi5D 3FYQvQPZeAJZ2yXY2yT 1hbGlnbjogbGVmdDsgd bBfuMjpBIuzLDguT959 IHRvcDsnPlBhdGllbnQ wBxQwQDo8N5OfKic7IE CgoFnhGO7mhGRkEZosE u4wkYxrwUktQX6iNBIa ucgmb612CyYxw7hzGQM ziEIwASliJJL1T34gs2 Y1NHCsJPYmXXR9fBJ9a F0rjVamspnbdYKqpXsg bzHkjGdmYZbvBDesZ05 6IHRvcDsnPkJpcnRoIE UgpAV6QD56BH40qDGeb 6D7aOR9G9GiXCTtntbs vucswXP5FCGmDLDimB2 9Vt0bhDieWh6qKYLeCR M7VNRjjOYyN6HsdP4bW iMsSHOkMYZmA3VnbMPn ZJocW327LStiFrT6KHY kxfKiQ7QqVXRlfLauXg J0x1S2Ts9UW5X9BY50C D22fJXzx7D0hUQ8Q9Al EHYzjhapanujoSM0EHI vYATrzR63Vw9wgNscWg 4yVOFhVDD7AIXezVLrO 2MtgP0vRxXfAAGhGJBq Y1NnyXAtCNjgH241TUk tVvH1CZVamfCiD3CtZC BcnQdkXxP6y6L5Th9FC Ul4MW11EY72oAXct7M8 fKD4P9NdRSHkjpodqtr lyCJ8OPXbLAUrcY55Xe 6ttNzmYd0nXCFuHQV0N PLuaJVoD5QjkV5sJxWu BENqTTLnB3EpjBKiDNc aU229RQioTvI9JWDyaf QtK0ZzIKMgbDtfZzM2q 0E0Dd1HSPOaIX81IRZ9 aKQ5XE29SQ74C2XeStn vdGFibGU+PHRhYmxlIH dpZHRoPScxMDAlJyBzd LuhAR9fGs3jNPVmCUQl aVfdiJSyIrYix6txHEG zOTszOG7alGadP7KvuM K1RZVfy5s0Me75L42aQ 3JvdXA+OJOzvWN5wHW0 dT7bWlXiGpT6IGkuN82 6SoCxbEPtDajix3erw2 axdRx8DmW4PPQvtpEow KodJRV7n4WoJd49T14z IHdpZHRoPSIxNSUiIHZ dsVbjrk5vtX1bOd2+PG ZjgRZ7dSJ2nF1xIoMmO cV3SXhvT791MxFiiHZx Sfipx3mgy5hlrEq9GaW dOTXttyHfjYbzWRP4p7 VyQh89X6EjtLusf0CnP lp0dn81eJPcc5B8aUG6 S5VgAHYmqmmjgDPotPl tRX4yZXIiwuotWAGrnO 4mUDQyF7b7QhPfFnK9E ObmS5PjpbJ4OSSuuQGv JZonVZT1M33av9X6DVU jTHEoUWE9jML4kL4cmJ lnbjogbGVmdDsgdmVyd TlbRBxoDUhnB582SPPa gJboCBCgdT7jWMXfvYX fcZrmJF4aZODmshvcTq rBMS3KIHOHNxmnRWgFH OOEBBHFLQ29RB38qDAv d3W6sPY4J8DuMYHqrsy peyudqVY1VTDoCMFyeS 21qHXeXWysJs4bd7X3e 647PSEuLHBslS69Qc1i gDedOURlhUUBkQ8gequ ha9dnswskHvXsRETjED a8KDx2ZVZrhYdpOoIuM SG5IcN8XVU4rNVxhW2d cJoadhzkjU8rImi+MTI gMXgsBWi7RAlwpFR+PH CpUYH1nKdiHFnnTCQjf B5rMOYuS7x1FmUaApK7 GDyeU1DvIVXmomykUx1 7pV9oEbKnItM3UJugF7 PkqfH4DESbzFAsRBzyR VC2P80rg0Q7KHWoTAVg ASB7sUR0fQ7kqCiqlvk gbGVmdDsgdmVydGljYW srQGjrT925YOIpiLqtM gG3TKrcZOVxEY43XP92 lSVzz0I9hVS3Y8NrNPC kxibrpagmbLA7HRSpUR HctQ54yHKuGDnrDg6in 8K4q609YQEsFTKafD18 Ew0hiCoaOYRnbEGTtI9 siqfwd6yuihxmWmDnAA GqIXh9UZy9PEHfoIjqY tZcBXY8JpS5IDU1uNQg mI9ijGbpcfcmzK3mQho +GxTaEFgvJM49JW83nX Akr3Q9jSU5S6MhTOLlf xphmetxpPN7KOOtDJIv dL46vCBtCUliPi3fo4N 3g233ALOlTRWrjR68Xo 8lmBxsVKKbwQIWbQ1ee gywy1hitkflZqYiMGBe YBb6KXl1BNBmiXkwUwE fHCD9CwQ5BTU0cBAyjG 5uiNfxvbwucV5cAio+U yNpkWVxfZ3aEM54DD20 Y7PeIoztaJRanHA+PHR hYmxlIHdpZHRoPScxMD NbTzWqoCypUH4sYq4aN GVyLWNvbGxhcHNlOiBj p3pnGJGuLFgqVN8whAm uO8PuoEN3GEMvn3d0Jz 24M55qJ1MfuCU+PGNvb VG9uTI5kI1fWgEnBpK5 SGszJ242FmJnqTEhChc oo4dci6neaUy2YfCeWZ ZuhzToqYppCUS6q4IrS q00E07cGQbnBGHqQWOd KFEpVHCxcKkeqb2boR4 wIi8+GHKliOK8ePN6rK 9bBeTkFoH7NOdoV062X mXilBGfGxwfU83vP8Xb dXA+XUTpVxg4JDTvjMw yXK4ucSCsBHnmLd7rHW F8HjOhCcBmQXycF6WnO LXgwxsmmrcpbSA5PLEm OGPlyI73Ms5ywVfxAa9 gJWGjEOZ1FMDvrAKnK2 MeiD3nGpWcUYUbAEWcB 0WzqFElEBuiQ759KSvs ViW3FPYwygQbP8VmKRV wiVdvBoM4j0B1Qx5QvK qizXKyTH9vObPqHXp5B 8EcKji6CUChjKezKW0d iRNjVXkqFj0npNrrcNo mDM8aIFTbczhkv432Dv Vla7onALBocWClFIlgU FS2K88ys9S8SSFsYZVf OJE2dIG2xY3apUoybyz gbGVmdDsgdmVydGljYW cfMMtrR037CCCbmMksW xSQNkr4D7LkYcc6MHEu zKkhSB4fkYYbCXjmTl8 cgWvprUrkYF6qSPPnuv uwo602AgUmo6xdDKKvr SYcLPmlESH9Q14ab2B9 VTLmQZYqOQD5xDO9yA0 hbGlnbjogbGVmdDsgdm FwmMmbQOadRLbiF392M AYplIrcWz7OEgv8P0Ks Vgq3JPRroBizRC7lvCN uJUgwWe9gwBkntNmkXS 7dOKMrvgwlr414KaAsr 4xzTIJuqASpWDmuNVD1 I69ms7B5MCQoPVXpZRV 6pWF7sT9gwPhydkbfqU VmdDsgdmVydGljYWwtY EzvJ120FLQilNycTvEw eWVyOjwvdGQ+LA47fy4 7H4ZuSwsjTxr8FEDxYH I3gDL2uB4lQMHjNRsbx 7N7pAI6E3HlabBubo7c b2xs (more content not included)... Normal [facility] Priority Order-Juan 2021 Priority Order-STAT Comment Invalid Interpretation Code [facility] Comment on above: Result Comment: Rece ived Performed at: [facility] [address] [facility], [place] [id number] [facility] Mina Jones Performed By: #### S ARS-CoV-2, GEORGE, [id number] #### [facility] [address] [place] [address] SARS-CoV-2, NAAon 05-25-2021 SARS-CoV-2 (COVID-19) RNA GEORGE+probe Ql (Resp) Not detected Invalid Interpretation Code Not Detected [facility] Comment on above: Result Comment: This nucleic acid amplification test was developed and its performance characteristics determined by [employer]. Nucleic acid amplification tests include RT-PCR and [...] detected) result in this assay. Performed at: [facility] [address], [place] [id number] PhD Shalom Gonzalez Performed By: #### S ARS-CoV-2, GEORGE, [id number] #### [facility] [address] [place] [address] Family Medicine Phone Visit - Telehealthon 05-22-2021 [...] 6 months ago. Has been using DayQuil [id number] with moderate improvement. Review of Systems Fatigue: [...] only communication with the patient located at [address] [place] [phone], with no one else. If it is [...] verbalized understanding Ordered: Rapid COVID Antigen ([facility]) Telephone Est 5 to 10 minutes [id number] 2. Fatigue (R53.83: Other fatigue) see above plan, rule out covid. Ordered: Rapid COVID Antigen ([facility]) Telephone Est 5 to 10 minutes [id number] 3. BMI 27.0-27.9,adult (Z68.27: Body mass index [...] 1035F Telephone Est 5 to 10 minutes [id number] Follow-up With When Contact Information Irma Burt [...] Methamphetamines, Pre (more content not included)... Normal [facility] Comment on above: Result Comment: Elec [...] height. This can be done either in [place] or metric measurements. Note that charts are available to help you find your BMI quickly and easily without having to do these calculations yourself. To calculate your BMI in [place] measurements, your health care provider will: [...] problems. ? BMI can be measured using [place] measurements or metric measurements. ? To interpret [...] Reviewed: 03/20/2018 Elsevier Patient Education ? 2019 [employer] [facility] Physician Orderon 04-27-2021 Physician Order [id number] 8#[id number]:127 [facility] Coding Summary.on 11-04-2020 Coding Summary. CD:[id number]:[id number] SYz4wXo+PGhlYWQ+PE1 YSQPaJ05tlZXjyK9EE0 bDBP4VGKTHNQSIOW5VT D7wqEB6CPxvH1GnezKw ZnbkqHUnHD43PVo2KLL 2iMzaLTeulO5kdSBmI1 f3CpXcMJ64mW52CVlyA NCbCrI4CcMohbcorYBc V2zuWlWbkAVyChj+PHR hYmxlIHdpZHRoPScxMD VgYoZntAswVT2dBp7hQ GVyLWNvbGxhcHNlOiBj r3pdMVJrHEegTN6jyRg qE8SvtIJ0WVTwx3x4Yc 48dHI+YOKeGIE1gFedC Bpbd535VsZzf4fmMLG9 qMUwRCjuNFL9S21rm2B 9AWUyNKYoQOR1nXK8jZ 0phUwuvwxvN1HryXEsE aS5KKU2uHTskH5ugZmd spnrvO1aKsz+R76VND0 QDMIZMJ9QZrv7A3GaRj wvdHI+KP00FRXxLC54b YXovYXwk3lgaMp1XwXh CRGvGPO5oJkcYQuxv9D nWVQxR72czGCrh3D5BY RqlJionYYwVbNolKD3u H3dECytkwlxv2nzkybg Ujwqb3fryo15tU48I26 xJRqpYZTnVWR0MGRfNS IfwWuxoe3hfU3gXk8+I Lftl7iem9hpaCa1SgMu LHYqzaKmxIatYBI3r9I pSa18X3KjdBxtz0JqCj u6hh34rQImg4C0oYA4L BndWUOgiA1tKRuzAiE9 EJIaBrItnU28lSLmOOa pOf7myVbxbTeyZV8jMM VykecxLGFelB1hINXbh IMfjBuzCP1mIMYiqxev f241VuHjIBR1CIPkmFP jI6NmnG6sDoSmTSXcIX RqC1QfkJFhSJzlH200Z GdjQkI3DBSeonGiO6Ph NBSsyGlkAuT8c4N2St8 Zj9NwdxkmTQU3NUllAJ I9KdL0UoGdFoP5G8JfF im3LUXvvFihUR5lV0Od MBUlmvgkqolxzEK4YED eATRqrU65oHKbYGodPs 4vf2K7v507ZEAfTPLjg T78Rg3vpVxjQTTafPQI mH1dbmoxg4ceygkzIzU zCNQaMTq4UHi3TLDdaA eoEwXtDLZ3KhQ2JIU9r CJpiL5mgQxbpbtqjT9b Oyc+R72bmY2oBDQ7NPQ 3qeymDUWvkeJxRN49EJ 83Y6HjBsipgIPtwIS+P NDqnlIbqIzhOE3wKeEp i6ocs0ReYNwjM2JgYHC gITrjTef0GREhVAN1eC N5cY7aQEXuPRfbk8E5q XK4Q8YdarXbww5kh9fn VAHuSLgeU25gpTRrw1P 0FIGtuHQ5GMQycTdvHl PwyG74Qcs+PGNvbGdyb 9SaRymvs9uvz9farEw6 IjMwJSIgdmFsaWduPSJ 9q2OmWq87Q56vZIrdTR RoPSIxNSUiIHZhbGlnb t9mkN1pLx0+PGNvbCB3 wBH7jK4yYJPyJhL0HLn zN573BrPdpRLvGalpg1 chj0bqkIz9XbGjIWMbj zAgqMmnAYT4q6HsQk08 U56uDOboPAKjPVEjTVU sHFTpbKhdgz3pjV6sZy 8+CK4hs5vvls03gD00v HI+AZQkQVO9rGvhUKih JWQgbR7jSVosWoE7EOW eXkRleR87aMNdNPohEj 3rjPgilZsmWF2qWDDic cpwr252WnGwn3jlTMOq hAJfOTqpNPC9F52fh3O 0ZQViQIWvYSC7yWU0bH 1hbGlnbjogbGVmdDsgd hEyrVmaBFhzGKamY280 IHRvcDsnPlBhdGllbnQ eJlMfWXu7L1UhXfl4NI XdjHibLO7ykTKdETsbL v0chHaxtZjuNO5uWNMs pbrfr960PpOzg5hxDLJ qjEBlRXglLQG8K76nb4 S9GMNtPHSjZKC2gVK9r O8exNndicbqoMGpnCei wqOsuTfkXWskKCmdS36 6IHRvcDsnPkJpcnRoIE GxgEK9HV09EM36mCQvk 1K4tSK4U2ScLWZoffdp btgpaNL3GXQsTFFcoO3 0Az0ouRfdQj3yQTHtJP E5ZIMizQSdE0OfjE0yS jPqOPPjJSKaO2QfnJMv HCpwD897SOznHhN9EPD ivwQdN3CaNAGrjEyhJp S5x8V5Ta0DC7C6ZQ81Y C22oVHro5Z5yDK0M3Ae DXWxvrelswhciJO0ARK pRIYioS09Yj6lnJzpFs 3jFGMfDZQ9VNEnyJPeH 0RkdN9uJuKwBFIkVMJh L2VkjXVqUGhlM921HGj kNfX8JGFtvaLfB5GnWE VryPiuIaS5w0U1Md4IH Lu2KH66JW00dJTnm5J1 iMN1O4SqMEQmcyahmoy qgXK7EDNpBUFjjZ30Oq 6wrGjuUi1tTLDeLPM8K XRreAXtZ4EqbM6jHaPl XBFyDDNqX7NyiKSiQIh aM915GKyiWmT2ZDPmut XlP6VjJBHujLthQzI3j 7X3Hg7DYIDnCV72WCU3 eWQ1FV63FU57R8DnWfr vdGFibGU+PHRhYmxlIH dpZHRoPScxMDAlJyBzd JeaPE2qDg3sXPRkYBYw lOlvpCOhEnEua9fnCHC rGEiwCX2lqPevQ0OaaB G7YHPwy0j4Ov08W57uZ 3JvdXA+AIWimRZ0eJW4 wT6iAsWiZcM7VQayZ17 0GaZfzHNzUugra8ajq7 facBi9HyL1ZTGcayXoo ZvpNLG0v8EeMd42I10z IHdpZHRoPSIxNSUiIHZ beIeien8mcJ5oOt8+PG JltGT6iYV7vN0kKbMrM iZ8XHrtH818FxXljWPw Fvgex6meu9qvvUm5MoC bOBHpkiOijMsqSTH4y1 WwJy50Y8GqyJqfp5TuB re1ku82sINzo1J8xLH5 D1DtRDJessxzzNMmiMk vGT9xLIBunfoyHJXuyQ 2pSMEuN2y5MqZjNmM4G DgiR5KomsV0OVAhuLUn PSqlLGZ7U63ow4N4WQZ hSQYtAYW7zYP2sM1jeV lnbjogbGVmdDsgdmVyd SceMHhrYOawX563BJSh kMotZHVkeE6aXZYfpHH erWkmHZ8tQKPbvfypXx aGYU2OVYBQMmviKOgRU SEOPARGBP61DF28aYUl e8N5kCI5N3LmFPAtnme pjlpmsXT6DQSoBTYbxD 66wDJvGDslEu0zf2V7k 938CWGpVPPezS63Ga7d yGpdYBIgvTGHaP1khnt mb5mszfcpZdSxSHVbTX j2CBv8IIJkiRvsAoOrI TF7HoT7XVW0vMWqcK1k nCttldsoaS5pUoz+MTI dBQtcCWo6PZyfiUP+PH GjQKI3lAimCMisYIZho Z3sTBRlX7m3MhPwCbB5 DYleE7GdIJRwzhfiSn8 7kP1gZvFjXtC6KAokY8 GtxwE1SASnnNAwYNxwL BG9G80cj8I0EVJpAFMv SVM9sYS3qV2yfWarrbz gbGVmdDsgdmVydGljYW xiOUovI796ZWXspBkwR pO1RMmaYAVnUS18XC42 tVGxj3O4tSG1E9IjRHF ckmnyfrxpfYJ2JYSsBC JwpA71hMZsOMdjJz2bt 9I1e961WBEaYCQcwJ31 Zv1foEuzZEKycQCBiU7 gbxofv6coflruAnKzXX OwSRy5JEh1SBDtrBmbC rGjCDR7LjR9XDP2xBUl gT3cnJqbjywuwP6hCzj +OnEtMPvoKI62WY75uX Ztr0G9xQF3G7BrBYWhu ypddudmlFQ9HWReDLVh lI76hLMfCQceCv4oi1D 4m256HWQbHKZcwA20Si 8gdYzlVAOkpNTQpI8wy dzme0blubbyIbXkARNq FLr3YPt0PMMxyBooBeH cWRM4GaV8VCJ3sXRvxR 5ajKdqtgjfsQ3qUbe+T 6F9fDM3mEVszZlljSA+ ZK23ju01D2EjKrvvTdk 4ZCHzENH9oSO4zU5hYF GxXAdou7B5xYB3Y7Xyy aReuj1eu8glXWCdCMcm F40caOFge8E4RLKlsRV 2CALnrEgyAuIrhA25Ap c+HFTzbWpjc4AmQvvvb 6hvo0fgdDe9ElOxHTUe byHaaEydBOO4l2QaEo0 5M26lBIcmBARoWYZzOC GxOPHrhBiqwc4crJ6wN i8+HKOivTW9kTO1mP9c WpNdYtM7FYnrH439XqC cpLQcKltzp2zuc4fsuK i8XcRtRMZtuxJucWimU DI2g8PhKp33Q4CxsKzp h7SuQkr0ts89pUSxk3V 1mPU9M3CxEBIkjpljwO VuwXxbZH4iBURerqkhQ FQreS0gWBVnW1l5DeIl RgM5MQkyE1FvdsQ7YDN wzTDjQVRcjKGTrP9rso iom4svxgjqRmOvOAQcK Mb8XUo9LXXjpNprAwRr KKA0CuB7QUQ8ePEreX1 ffLaegmsuxS2vTyx+UG m7j8tlsLMpJO0eeDD9Q Q20GN64wZLyz3T8wFS4 H5TbLANkxxxphipmlEM 4JEKbQCVrxV08Qm9moM diVl3rMOUdAXB4ATXhc YGzE8QflT5zElSlNOBj OCFyK9WxaTBkMUrtB77 9QEcoTfO1EYRgfpThI1 BcFIUsxJjjYvJ7i4C8T h8IEG56GJ43BJ91aGGk v3R5rJP6K4LdOWUtwof ipldazTA4YKCsCOBatT 31Wt1dmTwgGz2kPARsO IM5PYWvkRFtO9OgkW7z QzGbFZVjDGArO6OfiUR eWLahW924AGnoYqA0IT JtqaQtU8AbWNHcpXkjS nX9n3D2Cr0EGm93NO67 IK98oTLjc2D6gKP2W7O zUZAjsyzwjmqocEI2LK MlHDAwvV64Oq0hnJpiF f2oYONcZSY5YXRuaFVu A6UhdW3zGmEhPWNaSZS tW8ZthQXoQJluN286TH szSuD6HQOjgxOfQ6NwY OSmhLliLyA5h4U8Uz8Y VJfqpsg0Z4ZaGamtlXE +HU46RCLxDF28vTXflY Zih1qooCg3IkDdZANpL ZE0kUvkJGbet5UlOTPi Y29s (more content not included)... Normal [facility] CT Chest w/ Contraston 10-29 CT [...] Contrast amount in ml's: 100 Normal [facility] Coding Summary.on 10-28-2020 Coding Summary. CD:[id number] HQv4xJg+PGhlYWQ+PE1 PHFKqS38wkDSpeB4YS9 dDVT3PBXEJKFNNTU1KZ Z4wuFV2OOjyQ6FmcpMy YsmzmSUdOZ91XKd1KQD 8mCnnAUbmaD7lmFOmE8 w8UpQwJO38fV39JSylQ HExRzA0XkSjxkvwtLHz H7vlWbLhtMElLmn+PHR hYmxlIHdpZHRoPScxMD AzJbOmyGiuTW4xRg8qQ GVyLWNvbGxhcHNlOiBj l1dyQUNcYUurOG6ebUh yT8UdwWY6ZBGig3h9Yu 48dHI+CMNcMHX3tFhfE Djfg491WeHaf7ggBFL7 rVSkPVrjIMR7Y21pg8V 2GYIsCQVcPUI1aKD7eC 7ppQjfikohR5BxdZZeA wL3RGU0lYRkeO7wuIpg ahhbzX2oNkd+E21DGU7 HEPGYHL4KVti6K3AiBo wvdHI+PP63UUTkNO76f SNeyZOnr8hccRd9MvBg LGDlCUV3sGvoXPpyl2M aMMVtE16dvTUot2N5FF EnaBtkmXEbIiNtiWR9x N3vIXgmuooxo6bpnhaw Wjweo0rkag79jY65T37 tNTsxOAXzLFL2WDYiLB PoeBnpwr2yjX4bNv4+I Limc7xpd3sbwPt3CsLv HLVisyMwjGrbMXL1o4H xTg70D4RbqEgqs9SvRt w0rs68pMDwb6C7bOW6J McaLWZtrH7iWIlhOxM0 WPQkKyTenE26nGOcYZr hZe7qzXyjfYcyBE9gZR XqzjacNUYudO2uFNCrn QDplEgeLW3kXOAcoqfl n081XxPeAKL8GTFvdGA oZ1QunL5dUuIpFUOtFX PfJ9QyeUPoWOtxV503C LlyOyE5EFZxrbYtS8Iu SSLjeYozNkJ5h8Y2Vj9 Lu4QsrbmhDWX2BWvmDF R6KwUzQwMzQoI4W8MiO zw7XNZwgMiuGU0dC5Cp CVVfjnjmqhyydZJ0BYA jZDQegH88qQAiCAxgDi 4ny1J8w720JHYzTJNfu H21Kg7keVauZAIyvJES bR6lxqing5fgxcqmYaA qPAZnUEc6QVg9LVRzeP kwXlGqNTO9XtQ1HPF4l SLaeW8stOnipkfdiP0n Oyc+X03xzP4rPIP9PAV 7wlpdBDQrztEfCU88SL 41R5EaMszysRFuoVH+P ZKwmuPttKkpCA7vJtTb j5bqb1DrTCesE5InKRN uKQatWdh4UAIgRUW0nM K0qW3eIEOlTYjcs0M3i FL5G2HxktZivr8qa2el TNQaJYleU57pxMCqj6M 7VQAosUK6NWYirJbvWa YddL21Mxf+PGNvbGdyb 2JmMnhoh1umm9yvrQh7 IjMwJSIgdmFsaWduPSJ 4s6YzBt51Q92zRMsgZN RoPSIxNSUiIHZhbGlnb i1hsY8iCr1+PGNvbCB3 oNC3kT5rEVJgMkH3BFa yY866EoPqsZHoKsqgu1 opa4xxrQw9JrNqAQZrj cFajOibJSN9l3IyHo80 H50vEPqlRAKjBIMlFIA oEBXloKyukm3goD7iVr 8+HM7iu8sjag13yI13x HI+XCCpMDC0xNnaWIbn LQOezW9eXYlaLnZ0IGG tOvIzoS94bEQmBUidLe 5byHhihTpmVT3qYWTvr qkot157XiRcx8hxFVCi yPXyMEcuVWK9Y76pj6U 1OVNgYYEkLAI6fZM9iH 1hbGlnbjogbGVmdDsgd lYcmBfzREscBKnvZ392 IHRvcDsnPlBhdGllbnQ xYiToNBq8X5VoHit2KL BwrPpoML7ghPFtFZetZ l8buAecdPggTQ2lMYJq qrpki389JtXeb4fwYQC wnAZpMBjdOJC4O11uj3 R7XTRlTCYbFIY8kDN9o Y9nyDmogxvkyCRpkGrw dtVqgApgOXttKGlbF84 6IHRvcDsnPkJpcnRoIE WdbIZ6YM40XO54lVUnv 3C6qAE1U6QrOHMhykfk wyetbPS7OTWrHXSykR8 6Qo8bdTzoDi4iMKPbQH X9RDJgtSKgA5FsgN7tY cNaTEZsHSIcL2YaiHOj BZncH868HNngJpJ8JBJ sljXpY7PnVYHdpScsLo J6z8Q0Fp4SI4A5GJ06F H02lQJzo6O7lWB5T4Vc JOUzhadqngwdjOD0IRD lATQuoA56Li8hzMlzLe 3dPYOxQPC2OOPszPLnO 5TlrO6cUhXdLVHqNVDp D1DeiMUaHTswL346RFw yJlB6CIRzxmIhV8GhED RxpCprQcD4h3R7Kw5JU Xj0XA44CN05mREjg3E2 xDB4A4GdINTrrhnhdtt mxTN6OLJnBEPtuH51Ky 3vmSquHd1yAAPiHLL5Q BSogXRwC5JzxJ4lKoWh VJSjCBBiW6TduDUeUXz vN689QZpmNsW5KOOafb NoY0QvSCOkjCofOzZ7l 1V4Gp4HAIKxCV20QHX3 tOJ4LI99MX21X7TySuu vdGFibGU+PHRhYmxlIH dpZHRoPScxMDAlJyBzd ZlzLJ1kRi0aLCMzJGOr yNjctDPtSxZju0wcXXA bTKnqLQ0viWkrH9UvrQ N1CSHjo3j8Nw86G65mA 3JvdXA+TEOlyTU7fJJ7 bB4gCcQmLsO8JRsmN30 6HnPuyPNfSedkw4jkl3 qsxIb0XhB1PVHbxfWcn TcaJWX1s9YyPc78M42d IHdpZHRoPSIxNSUiIHZ wuVfuid1exO6oXw9+PG QutWT9iXP0wN2uXlSuE iD4GIegY850MaQvfIVo Agtsd2udf7mxiRx4UyT uDKHhooXkfQugAJP4l9 KxHu03X7YxkGsrz1FtZ jz3bu93rNAmt1N0dOW4 E9GcOGBciefhxLPqwYc zDC1hFBSsicweAGWxuG 4wRXNmT4h7DcXtJmM0R QskB0YbjiJ3AOXoaKHj SPgrTOY0Z09ps1B5YDA cXTKpPGF4sST2tG7tvP lnbjogbGVmdDsgdmVyd JhkSLdrAFewS755IWMj xEepGDPqaJ9mTQVzkLB jtAgcSZ9lMIHsswhnAt vOCT7STSMSZtnvTXfQW WXIUBFSQE06BW86sZYf d7B3vHU9B4KnDFMkaqn muvgolJN9SUUpRCHeqR 80xEAdAJecDj0qx1Z1q 681UIKyCQWofM23Px7q sQrtSAMfiGQQpT1egyw hr3jqgcygAeMhIKKgKI p2INt0YSJicVhhNbBiM OR0YbY9FXY7gOYttZ6p mTbeucdtaE6cSst+MTI uIIdvEMj3VWabbUD+PH GoUNY7yPbdAMhtBPSuh O1bWCQfF7a2SiNpCwX8 ZLovV6VwZJCjnkhqIm8 9fC6cPvMlOcR8MKvlW1 ShglI9HZDysVGjGVtdF NQ7I96an6P6CQQbSHOx PYH4lGV0iQ4xgCvwmfr gbGVmdDsgdmVydGljYW qeCUidC444HSLcmFmfN gQ2JLbrKEMyNR63IV93 hIRap7S6mKW9I0GrAQZ rsphkddxpbZC2SZZgPI AdmQ30qEAgLHvnGs0aj 4M5w750AVFdGHQbeN84 Zl5moDxaMTCjjOTKnK9 dnrgga5pwpkupPcQjTQ ScTNq3DIq4XQYjqCnkB wGlLVT8TfH7EQL6cUKl qL7yoAxtjorpxJ1wGcv +AqDmATalHM06QU59iU Lzn4S1rCO6J8UcLLRvk chvpmqkjBM6MFBiGRUn oN02kCLnDThxNs5qs0L 6v157BFXfXMIhlV71Vw 3viEqkZQWapJHRpT5rn ibqs2mzxuajSyMbNQTd QYc1NPx3QMFhsJcmEtA sLZA7FkI1ENO8iRPpiP 1csKjiesaybK0oOfw+T 3D9oFQ9mNDhzZlooYQ+ EE45ii78C6CgKswlPja 4NABkZNW8pRX5sK8aTT KyYHsum6V1oEN7R4Dds eAksy9zj4ecQNUpTJrr L22mrAQol9V4MAKpiCY 0AKZyxXpmSjEhnU26Be c+QDBxoFgcm2CjVztjf 4sge4qkeUi1BnQqMHXt kwWlvNiyIMP6d4OvZf1 6P36kLFobSKTwKEOlUR YwLZUbnRfxyc1ilC3rT i8+SEHnoLH0yVU6tO8n UkHtCpB9AJgsL915ExS atMNnAeopu9wrn6adiD u6DnJyHJKlaqHwnJstS PA2m6OuOg83U5LbrJin f2NvEmd6km12mCRuv4W 7nLR1N6AtSGXzzhyhkW PorUdeRO2nMVPkdjweO XVbjO1xFBKdH4o1UaRe FpX9VAawC1SldbT0SLS fmLNyZRYgyGMJnV2wvf goq8tijsjjOuFcAPQvW Zj9UTt3NRNyxQeqDeBz QHC0FeK4ADN9jDCdmY4 hrUmkdzmarR0hWyq+UG z4g5tszOHvCD3ebDV3B E93KC70gHQfv4W9sPF1 C3YsBXXiaxyfixkbfNT 5YIJiMTHcoJ20Wa0pgQ xrJd3mUHKlWTI6ZIErc TZkB2YerL3kNtApVEAt NJCbS7VlqKJbKCdpN50 8TQejQtY4BLAsghZcD8 QnFHVpfXpjEeG2l5O0G k9NSN36AI03DN11zDVf r7C5iXI9C1JiBFMcrxn mucdmlZR3GZGgWJHnbC 01Uk1gdEkkOf1cSTPhS VK8VDCmxRTgM5TdxW6k SeZfMCPvBJEnI3JkgLY gQTpnC541BEplAmK8KF LkufYqW3XlTFFiqLbvS vU4e1R5Tn5MEd23VL88 NK44nKIlb5X0kDL0B1N pISEqyxcihyaanPZ5ZK PgDJJnqU45Zq1ukNbvR z7dCJGdUEV0UAUllEPq P9LsxR0hIaXhTGCgFRB kW0YyiZQgRRbeZ186YV vpBxY0RQSnalGrP7RiF CCjwRalSeJ7p4U2Oe0Y CMrhtuy1H6YhKktpbLP +DF53ECTcJK63kKYlkX Mea2vioHu4InBeFWPpU PB3mClaWQaob7ZbZNDo Y29s (more content not included)... Normal [facility] Consent for Treatmenton Consent for Treatment [id number]:127 [facility] Physician Orderon 10-21-2020 Physician Order [id number]:127 [facility] Consent for Treatmenton Consent for Treatment [id number]:127 Normal [facility] Physician Orderon 10-19-2020 Physician Order [id number]:127 Normal [facility] XR Chest 2 [facility] XR Chest [...] M.D. Transcribed by: SHAYNA Technologist: BECKI Corona [facility] Vital Signs Date Time Vital Sign Value Performing Clinician Facility 07-26-2023 11:27-0500 Body height 170.2 cm Kaitlyn Jasso MD Work Phone: [facility] 06-12-2023 13:00-0500 Body height 170.18 cm Shun Hill Other [facility] Other 06-12-2023 13:00-0500 Body mass index (BMI) [Ratio] 35.24 kg/m2 Shun Haleormack Other [facility] [employer] Other 06-12-2023 13:00-0500 Body weight 102.06 kg Shun Hill Other [facility] [employer] Other 03-15-2023 12:29-0400 Diastolic blood pressure 89 mm[Hg] DO Irma Burt Work Phone: [facility] 03-15-2023 12:29-0400 Heart rate 70 /min DO Irma Burt Work Phone: [facility] 03-15-2023 12:29-0400 Respiratory rate 16 /min DO Irma Burt Work Phone: [facility] 03-15-2023 12:29-0400 SaO2% (BldA) [Mass fraction] 100 % DO Irma Burt Work Phone: [facility] 03-15-2023 12:29-0400 Systolic blood pressure 132 mm[Hg] DO Irma Burt Work Phone: [facility] 03-15-2023 08:54-0400 Body height 170.18 cm DO Irma Burt Work Phone: [facility] 03-15-2023 08:54-0400 Body weight 90.71 kg DO Irma Burt Work Phone: [facility] 02-08-2023 14:45-0400 Body height 170.18 cm Shun Hill Other [facility] Other 02-08-2023 14:45-0400 Body mass index (BMI) [Ratio] 34.92 kg/m2 Shun Hill Other [facility] Other 02-08-2023 14:45-0400 Body weight 101.15 kg Shun Hill Other [facility] Other 02-08-2023 14:45-0400 Diastolic blood pressure 80 mm[Hg] Shun Hill Other [facility] Other 02-08-2023 14:45-0400 Systolic blood pressure 131 mm[Hg] Shun Hill Other [facility] Other 01-16-2023 10:35-0400 Body height 170.18 cm Aydee Nadiya Other [facility] Other 01-16-2023 10:35-0400 Body mass index (BMI) [Ratio] 35.2 kg/m2 Aydee Nadiya Other [employer] Other 01-16-2023 10:35-0400 Body temperature 98.3 [degF] Aydee Nadiya Other [employer] Other 01-16-2023 10:35-0400 Body weight 101.97 kg Aydee Nadiya Other [employer] Other 01-16-2023 10:35-0400 Diastolic blood pressure 66 mm[Hg] Aydee Nadiya Other [employer] Other 01-16-2023 10:35-0400 Respiratory rate 18 /min Aydee Nadiya Other [employer] Other 01-16-2023 10:35-0400 SaO2% (BldA) [Mass fraction] 98 % Aydee Nadiya Other [employer] Other 01-16-2023 10:35-0400 Systolic blood pressure 105 mm[Hg] Aydee Nadiya Other [employer] Other 09-23-2022 10:45-0400 Body height 170.18 cm Aydee Nadiya Other [employer] Other 09-23-2022 10:45-0400 Body mass index (BMI) [Ratio] 35.13 kg/m2 Ayede Nadiya Other [employer] Other 09-23-2022 10:45-0400 Body temperature 99.2 [degF] Aydee Nadiya Other [employer] Other 09-23-2022 10:45-0400 Body weight 101.74 kg Aydee Nadiya Other [employer] Other 09-23-2022 10:45-0400 Diastolic blood pressure 80 mm[Hg] Aydee Nadiya Other [employer] Other 09-23-2022 10:45-0400 Respiratory rate 18 /min Aydee Nadiya Other [employer] Other 09-23-2022 10:45-0400 SaO2% (BldA) [Mass fraction] 98 % Aydee Nadiya Other [employer] Other 09-23-2022 10:45-0400 Systolic blood pressure 125 mm[Hg] Aydee Hearn Other [employer] Other 09-04-2022 11:20-0400 Body height 170.18 cm Aydee Hearn Other [employer] Other 09-04-2022 11:20-0400 Body mass index (BMI) [Ratio] 31.32 kg/m2 Aydee Hearn Other [employer] Other 09-04-2022 11:20-0400 Body temperature 97.8 [degF] Aydee Hearn Other [employer] Other 09-04-2022 11:20-0400 Body weight 90.72 kg Aydee Hearn Other [employer] Other 09-04-2022 11:20-0400 Respiratory rate 18 /min Aydee Hearn Other [employer] Other 09-04-2022 11:20-0400 SaO2% (BldA) [Mass fraction] 99 % Aydee Hearn Other [employer] Other Encounters Encounter Date Encounter Type Care [...] pital Start: 09-20-2023 End: 09-21-2023 ambulatory KAITLYN [facility] Start: 09-18-2023 End: 09-18-2023 ambulatory SAGAR LUKE Not Available Start: 09-17-2023 End: 09-17-2023 ambulatory SAGAR R LUKE [facility] Start: 09-17-2023 End: 09-17-2023 ambulatory KAITLYN [facility] Start: 08-31-2023 End: 09-04-2023 ambulatory FROYLAN Rascon RACHEL [facility] Start: 08-15-2023 End: 08-15-2023 ambulatory IRMA KD Not Available Start: 07-26-2023 Chart abstracting Kaitlyn Jasso MD Work Phone: [facility] Start: 07-18-2023 End: 07-18-2023 ambulatory SAGAR LUKE Not Available Start: 06-20-2023 End: 06-20-2023 ambulatory Shun Hill Other [facility] Other Start: 06-20-2023 Telephone encounter Shun infante [facility] Start: 06-19-2023 End: 06-19-2023 ambulatory SAGAR BUTLER Not Available Start: 06-12-2023 End: 06-12-2023 ambulatory Shun Hill Other [employer] Other Start: 06-12-2023 Office outpatient vi sit 15 minutes Shun Hill [facility] Start: 05-01-2023 End: 05-01-2023 ambulatory Shun Hill Facility:[facility] Start: 05-01-2023 End: 05-01-2023 ambulatory DO Irma D Burt Work Phone: [facility] Work Phone: Start: 05-01-2023 End: 05-01-2023 Patient encounter procedure DO Irma Burt Work Phone: [facility] Work Phone: Start: 04-10-2023 End: 04-10-2023 ambulatory Shun Haleormack Facility:[facility] Start: 04-10-2023 End: 04-10-2023 ambulatory DO Irma D Burt Work Phone: [facility] Work Phone: Start: 04-10-2023 End: 04-10-2023 Patient encounter procedure DO Irma Burt Work Phone: [facility]-CT Scan [facility] Work Phone: Start: 04-06-2023 End: 04-06-2023 ambulatory Shun Hill Other [facility] Other Start: 04-06-2023 Telephone encounter Shun infante [facility] Start: 03-20-2023 End: 03-20-2023 ambulatory Shun Hill Other [facility] Other Start: 03-20-2023 Telephone encounter Shun Moncada naresh [facility] Start: 03-19-2023 End: 03-19-2023 ambulatory Shun Liz Other [facility] Other Start: 03-19-2023 Telephone encounter Shun Moncada naresh [facility] Start: 03-15-2023 End: 03-15-2023 ambulatory Shun Hill Facility:[facility] Start: 03-15-2023 End: 03-15-2023 Admission to same day surgery center DO Irma Burt Work Phone: [facility] Work Phone: Start: 03-15-2023 End: 03-15-2023 ambulatory DO Irma Landrum Burt Work Phone: [facility] Work Phone: Start: 02-26-2023 End: 02-26-2023 ambulatory Shun Liz Other [employer] Other Start: 02-26-2023 Telephone encounter Shun Moncada naresh [facility] Start: 02-08-2023 End: 02-08-2023 ambulatory Shun Liz Other [employer] Other Start: 02-08-2023 Office outpatient ne w 45 minutes Shun Hill [facility] Start: 01-16-2023 End: 01-16-2023 ambulatory Aydee Hearn Other [employer] Other Start: 01-16-2023 Office outpatient vi sit 15 minutes Aydee Nadiya [facility] Start: 09-23-2022 End: 09-23-2022 ambulatory Aydee Nadiya Other [employer] Other Start: 09-23-2022 Office outpatient vi sit 15 minutes Aydee Nadiya [facility] Start: 09-04-2022 End: 09-04-2022 ambulatory Aydee Hearn Other [employer] Other Start: 09-04-2022 Nursing evaluation o f patient and report Aydee Hearn [facility] Start: 07-12-2022 End: 07-12-2022 ambulatory Perlarolo Márquez Other [employer] Other Start: 07-12-2022 Office outpatient vi sit 5 minutes Perla Márquez [facility] Start: 07-07-2022 End: 07-07-2022 ambulatory Aydee Hearn Other [facility] Other Start: 07-07-2022 Encounter for other preprocedural examination Aydee Hearn [facility] Start: 07-07-2022 Nursing evaluation o f patient and report Aydee Hearn [facility] Start: 02-03-2022 End: 02-03-2022 ambulatory Maria Guadalupe Powers Other [employer] Other Start: 02-03-2022 Office outpatient vi sit [...] Td Vaccines (3 - Td or Tdap) [facility] Start: 09-17-2023 End: 09-17-2023 Patient encounter procedure 09/17/2023 8:45 AM EDT Office Visit [facility] [address] [place] [id number] Kaitlyn Jasso MD [address] [facility] [address] [place] [address] [facility] Start: 09-17-2023 End: 09-17-2023 Patient encounter procedure 09/17/2023 7:30 AM EDT Appointment [facility] [address] [place] [id number] [facility] Start: 05-01-2023 [facility] Start: 03-15-2023 [facility] Start: 01-19-2023 COVID-19 Vaccine ( season) COVID-19 Vaccine ( season) [facility] Start: 01-19-2023 Influenza vaccination Influenza Vacc ine [facility] Start: 12-30-2021 Adult BMI Screening Adult BMI Screen ing [facility] Start: 2006 Screening for malign ant neoplasm of cervix Pap Smear [facility] Start: 1997 Depression Screening Depression Scre ening [facility] Start: 1997 Tobacco Screening Tobacco Screening [facility] Immunizations Immunization Date Immunization Notes Care Provider Fa cility 02-03-2020 influenza virus vaccine, unspecified formulation Kaitlyn Jasso MD Work Phone: [facility] Payers Date Payer Category Payer Private Health Insurance [id number] 2023 Self-pay [id number] 2018 Private Health Insurance [employer] POS II [id number] 2018-Present [phone] [address] [place] [address] [id number] 1985 Unknown [id number] 2.16.840.1.245134.3.579.2 .1285 1985 Unknown [id number] 2.16.840.1.277835.3.579.2 .1285 1985 Unknown [id number] 2.16.840.1.630827.3.579.2 .1285 1985 Unknown [id number] 2.16.840.1.835100.3.579.2 .1285 1985 Unknown [id number] 2.16.840.1.849379.3.579.2 .1285 1985 Unknown [id number] 2.16.840.1.242880.3.579.2 .1285 1985 Unknown [id number] 2.16.840.1.854998.3.579.2 .1285 1985 Unknown [id number] 2.16.840.1.905339.3.579.2 .1285 1985 Unknown [id number] 2.16.840.1.281766.3.579.2 .1285 1985 Unknown [id number] 2.16.840.1.313231.3.579.2 .1285 1985 Unknown [id number] 2.16.840.1.343960.3.579.2 .1285 1985 Unknown [id number] 2.16.840.1.240600.3.579.2 .1285 1985 Unknown [id number] 2.16.840.1.693432.3.579.2 .1259 1985 Unknown [id number] 2.16.840.1.568793.3.579.2 .1258 1985 Unknown [id number] 2.16.840.1.761092.3.579.2 .9 1985 Unknown [id number] 2.16.840.1.687143.3.579.2 .1258 1985 Unknown [id number] 2.16.840.1.392513.3.579.2 .1258 1985 Unknown [id number] 2.16.840.1.714833.3.579.2 .1258 1985 Unknown [id number] 2.16.840.1.879182.3.579.2 .1258 1985 Unknown [id number] 2.16.840.1.709667.3.579.2 .1258 1985 Unknown [id number] 2.16.840.1.433813.3.579.2 .1258 1985 Unknown [id number] 2.16.840.1.522833.3.579.2 .1259 Medicaid [facility] [id number] Private Health Insurance [id number] Unknown [facility] [id number] Unknown [id number] 2.16840.1.866194.3.579.2 .531 Unknown [id number] 2.16840.1.953072.3.579.2 .531 Unknown [id number] 2.16840.1.193675.3.579.2 .531 Social History Date Type Detail Facility Start: 06-30-2020 End: 07-26-2023 Sex Assigned At [facility] Other Start: 03-15-2023 End: 03-15-2023 Tobacco smoking status NHIS Ex-smoker (finding) [facility] Start: 1985 Sex Assigned At Female F [facility] Start: 11-17-2020 Tobacco smoking stat us NHIS Smokes tobacco daily [facility] History of tobacco use Tobacco U se Types Packs/Day Years Used Date Smoking Tobacco: Every Day Vaping/E-cigarettes Smokeless Tobacco: Never [facility] Start: 11-17-2020 Tobacco use and exposure Smokeless tobacco non-user [facility] Start: 07-26-2023 Alcohol intake Current drinke r of alcohol (finding) [facility] Start: 06-30-2020 End: 07-26-2023 History of Social function [facility] Childcare Unknown [facility] Start: 11-17-2020 Alcohol Comment social [facility] Start: 05-04-2023 [facility] Start: 1985 Sex Assigned At Not on file P [facility] Goals Date Patient Goal [...] Mayelin Pinto DO on 08/31/2023 11:23 AM [facility] 06-12-2023 Evaluation note Encounter Date Diagnosis Assessment Notes May, Diarrhea (ICD-10 - R19.7) Patient reports that she is about 7-8 weeks gestational Patient reports improvement on Creon with occasional flare Patient reports that she is taking a fiber supplement May, Fatty liver (ICD-10 - K76.0) Patient did have a FibroScan that indicates fatty liver and minimal scaring, this will be reviewed [facility] Other 11-17-2023 Evaluation note* Encounter Date Diagnosis Assessment Notes Treatment Notes Treatment Clinical Notes Mar, Exocrine pancreatic insufficiency (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) [facility] Other 10-31-2023 Evaluation note* Encounter Date Diagnosis Assessment Notes Treatment Notes Treatment Clinical Notes Feb, Alternating constipation and diarrhea (ICD-10 - R19.8) Feb, Fecal urgency (ICD-10 - R15.2) [facility] Other 10-30-2023 Evaluation note* Encounter Date Diagnosis Assessment Notes Treatment Notes Treatment Clinical Notes Feb, Alternating constipation and diarrhea (ICD-10 - R19.8) [facility] Other 10-26-2023 [facility]* Encounter Date Diagnosis Assessment Notes Treatment Notes Treatment Clinical Notes Feb, Alternating constipation and diarrhea (ICD-10 - R19.8) [facility] Other 09-21-2023 Evaluation note* Encounter Date Diagnosis Assessment Notes Treatment Notes Treatment Clinical Notes Jan, Alternating constipation and diarrhea (ICD-10 - R19.8) WORSENING DIARRHEA AND CONSTIPATION OVER THE PAST YEAR. DOES HAVE SOME NOCTURNAL AWAKENINGS WITH THE DIARRHEA. CAN GO 4-5 DAYS WITH OUT A BOWEL MOVEMENT WHEN SHE IS CONSTIPATED. WILL ORDER IBS WORK UP WILL PROCEED WITH COLONOSCOPY [facility] Other 08-29-2023 Evaluation note* Encounter Date Diagnosis [...] no improvement in 2 to 3 days [facility] Other 2023 Evaluation note* Encounter Date Diagnosis [...] no improvement in 2 to 3 days [facility] Other 04-17-2023 Evaluation note* Encounter Date Diagnosis Assessment Notes Treatment Notes Treatment Clinical Notes Aug, Contact with and (suspected) exposure to other viral communicable diseases (ICD-10 - Z20.828) [facility] Other 02-22-2023 Evaluation note* Encounter Date Diagnosis Assessment Notes Treatment Notes Treatment Clinical Notes Jun, Contact with and (suspected) exposure to covid-19 (ICD-10 - Z20.822) [facility] Other 02-17-2023 Evaluation note* Encounter Date Diagnosis Assessment Notes Treatment Notes Treatment Clinical Notes Jun, Preoperative clearance (ICD-10 - Z01.818) [facility] Other 09-16-2022 Evaluation note* Encounter Date Diagnosis Assessment Notes Treatment Notes Treatment Clinical Notes Jan, Contact with and (suspected) exposure to covid-19 (ICD-10 - Z20.822) [facility] Other Evaluation note* Diagnosis Onset Date Resolution Status Diarrhea acute [facility] Work Phone: Evaluation noteNo InformationNort [employer] Other History general Narrative - Reported* Type Description Date Medical History ANXIETY AND DEPRESSION [facility] Other Hospital Discharge instructions Additional Instructions DISCHARGE [...] if you have any problems. -Office number [phone] [facility] Work Phone: InstructionsNot on filedocumented in this encounter ChangeP[employer] SystemReason for visit NarrativeRED EQUINOX, ANTIGEN PROCEDURE TESTNoYappn Other Reason for visit NarrativeNEEDSNEGATIVE, RAPID COVID TEST FOR PROCEDURENoYappn Other Summary Purpose Family History No Family [...] section and content) DATE CREATED AUTHOR 08/24/2021 [facility] DATE CREATED AUTHOR AUTHOR'S ORGANIZ ATION 05/09/2023 [facility] DATE CREATED AUTHOR AUTHOR'S ORGANIZ ATION 09/22/2023 [facility] DATE CREATED AUTHOR AUTHOR'S ORGANIZ ATION 12/25/2023 [facility] DATE CREATED AUTHOR AUTHOR'S ORGANIZ ATION 12/27/2023 [facility] EPIC REASON FOR VISIT [...] Active Shun Hill MD Attending Provider Active Completion Supervisor Relationship Specialty Start Date End Date No Pcp, [place] [address] PCP - General Family Medicine 11/18/20 FOR [...] BE BASED ON THE PRIMARY CLINICAL RECORDS. [facility]. provides no warranty or guarantee of the accuracy or completeness of information in this document.
[2024-01-14 08:44] LABS: Hematocrit 26.2 % (36.0-48.0); Hemoglobin 8.5 g/dL (12.0-16.0); Mean Corpuscular HGB Conc 32.4 g/dL (29.9-35.2); Mean Corpuscular Hemoglobin 31.4 pg (26.7-34.0); Mean Corpuscular Volume 96.7 fL (81.0-99.0); Platelet Count 238 10^3/uL (150-450); Red Blood Count 2.71 10^6/uL (4.20-5.40); Red Cell Distribution Width 14.4 % (11.0-15.0); White Blood Count 9.5 10^3/uL (4.0-11.0)
[2024-01-14] MEDS: IBUPROFEN 400 MG TABLET 800 MG PO ×3 (08:46→22:15)
[2024-01-14] MEDS: SERTRALINE HCL 50 MG TABLET 75 MG PO (08:47)
[2024-01-14 08:59] LABS: Alanine Aminotransferase 22 U/L (14-59); Albumin Globulin Ratio 0.5; Albumin Level 2.2 g/dL (3.4-5.0); Alkaline Phosphatase 136 U/L (46-116); Aspartate Amino Transferase 21 U/L (15-37); BUN Creatinine Ratio 13.3; Bilirubin Total 0.4 mg/dL (0.2-1.0); Calcium 8.2 mg/dL (8.5-10.1); Carbon Dioxide 25.8 mmol/L (21.0-32.0); Estimated GFR (African America >60 (>=60); Estimated GFR (Non-African Ame >60 (>=60); Globulin 4.4 g/dL; Glucose 82 mg/dL (74-106); Total Protein 6.6 g/dL (6.4-8.2)
[2024-01-14 09:28] LABS: Eosinophils Absolute Manual 0.28 10^3/uL (0.00-0.70); Lymphocytes Absolute Manual 1.23 10^3/uL (1.20-3.80); Monocytes Absolute Manual 0.85 10^3/uL (0.30-0.80); Potassium 3.9 mmol/L (3.5-5.1); Segmented Neut Absolute Manual 7.12 10^3/uL (1.4-6.5)
[2024-01-14 09:33] LABS: Anion Gap 15.1
--- NOTE | 2024-01-14 09:36 | P.PN_ITS ---
Progress Note: Subjective Subjective Interval history: Patient laying comfortably in bed this morning. She reports her breathing is much improved today and swelling of her lower legs improved. She still reports being tired. No chest pain, no shortness of breath. Chills but no fever. headache has subsided. Chest CTA and head CT showed no acute processes. Exam Narrative Exam Narrative: General: Patient is alert, and oriented to person, place and time with normal affect, proper hygiene Skin: no visible rashes, or ulcers Head: atraumatic, acephalic Eyes: PERRLA, no nystagmus present, conjunctiva clear, no scleral icterus Ears: normal gross auditory acuity Nose: symmetric, no discharge, no maxillary or frontal sinus tenderness Heart: Normal rate and rhythm, no murmurs/rubs/gallops Lungs: no audible wheezes, crackles and normal breath sounds all lung carlos Abdomen: Normal audible bowel sounds, no distension, No palpable masses, no organomegaly, no rebound/guarding/ or rigidity Musculoskeletal: mild swelling bilateral lower extremities Neuro: CN II-X grossly intact Constitutional Vital Signs, click to edit/add: Last Vital Signs Temp 98.2 F 01/14/24 05:18 Pulse 90 01/14/24 05:18 Resp 20 01/14/24 05:18 BP 111/73 01/14/24 05:18 Pulse Ox 100 01/14/24 05:47 O2 Del Method Room Air 01/14/24 05:47 O2 Flow Rate 2 01/14/24 05:18 Progress Note: Objective Labs Labs: Short CBC 01/14/24 Range/Units 08:31 WBC 9.5 (4.0-11.0) 10^3/uL Hgb 8.5 L (12.0-16.0) g/dL Hct 26.2 L (36.0-48.0) % Plt Count 238 (150-450) 10^3/uL BMP 01/14/24 08:31 Sodium Potassium 3.9 Chloride Carbon Dioxide 25.8 BUN 10.0 Creatinine 0.75 Glucose 82 Calcium 8.2 L Liver Function 01/14/24 Range/Units 08:31 Total Bilirubin 0.4 (0.2-1.0) mg/dL AST 21 (15-37) U/L ALT 22 (14-59) U/L Alkaline Phosphatase 136 H (46-116) U/L Albumin 2.2 L (3.4-5.0) g/dL Progress Note: A&P Assessment and Plan (1) Severe pre-eclampsia: Assessment and Plan: headache has subsided and swelling in legs has improved, good amount of urine output with the addition of Lasix yesterday. Blood pressures are in normal range, Oxygen saturations normal on room air. Troponin, proBNP, lactate labs all normal. CTA chest and CT head negative. Qualifiers: Trimester: unspecified trimester Qualified Code(s): O14.10 - Severe pre-eclampsia, unspecified trimester (2) UTI (urinary tract infection): Assessment and Plan: Urine culture pending. Continue Ancef Qualifiers: Urinary tract infection type: acute cystitis Hematuria presence: without hematuria Qualified Code(s): N30.00 - Acute cystitis without hematuria (3) Hypothyroidism: Assessment and Plan: continue levothyroxine. Qualifiers: Hypothyroidism type: acquired Qualified Code(s): E03.9 - Hypothyroidism, unspecified (4) Gestational diabetes mellitus: Assessment and Plan: monitor sugars Qualifiers: Gestational diabetes mellitus control: insulin-controlled Trimester: unspecified trimester Qualified Code(s): O24.414 - Gestational diabetes mellitus in , insulin controlled Plan Patient improving from yesterday. Potassium was slightly low today, replaced with Klor-con. I agree with primary wiring inspector treatment and plan. Please let me know if any additional assistance is needed. Urinary Catheter Management Urinary Catheter Management Urethral: Cath placed during this visit: yes, but has since been removed by the nurse Urethral indwelling: No Insertion date: 01/13/24 Insertion time: 06:20 Removal date: 01/14/24 Removal time: 05:40
--- NOTE | 2024-01-14 09:46 | CM.NOTE ---
Rounds made with Dr. Hull. Continue with current treatment plan.
[2024-01-14] MEDS: AZITHROMYCIN 500 MG in 0.9 % SODIUM CHLORIDE 250 ML 250 MG IV (10:06)
[2024-01-14] MEDS: LABETALOL HCL 100 MG TABLET PO ×2 (10:06→22:14)
[2024-01-14] MEDS: POTASSIUM CHLORIDE 10 MEQ ER TABLET 20 MEQ PO (10:06)
--- NOTE | 2024-01-14 10:41 | US_ITS ---
The [address] [address] Patient Name: GONZÁLEZ LOMELI MRN: [id number] date: 1985 Sex: F Assigned Patient Location: [facility] Current Patient Location: [facility] Accession/Order Number: [id number] Exam Date: 01/14/2024 10:42 Report Date: 01/14/2024 11:24 At the request of: SAGAR BUTLER Procedure: US pelvis EXAMINATION: US pelvis HISTORY: rule out retained placental products COMPARISON: No relevant comparison available. FINDINGS: The uterus is enlarged in size heterogeneous in echotexture consistent with the patient's state. There is enlarged heterogeneous appearance of the endometrial cavity with 2 components largest component measuring 3.8 x 3.3 x 1.1 cm. Echogenic foci and cystic areas within the endometrial cavity however no color flow is demonstrated. The ovaries are not definitively visualized No free fluid. US/US pelvis IMPRESSION: Thickened heterogeneous echogenic appearance of the endometrial cavity. This likely represents hemorrhage and/or air. No vascularity to suggest retained products of conception Electronically authenticated by: MUSTAPHA COLES Date: 01/14/2024 11:24
[2024-01-14 13:38] LABS: Glucometer 113 mg/dL (74-106)
[2024-01-14 22:25] LABS: Glucometer 109 mg/dL (74-106)
[2024-01-15 04:53] VITALS: O2SAT 98
[2024-01-15 04:54] VITALS: BP 103/62
[2024-01-15 04:56] VITALS: BP 103/62; PULSE 97; PULSE 98; TEMP 36.7; O2SAT 98
[2024-01-15] MEDS: CEFAZOLIN SODIUM/DEXTROSE,ISO 1 GM/50 ML PREMIX IV (06:05)
[2024-01-15] MEDS: LEVOTHYROXINE SODIUM 25 MCG TABLET 50 MCG PO (06:05)
[2024-01-15] MEDS: IBUPROFEN 400 MG TABLET 800 MG PO (06:05)
--- NOTE | 2024-01-15 07:37 | PM.OBPN ---
OB - PN: Subj Subjective Interval history: Patient laying comfortably in bed this morning. She reports her breathing is much improved today and swelling of her lower legs improved. She still reports being tired. No chest pain, no shortness of breath. Chills but no fever. headache has subsided. Chest CTA and head CT showed no acute processes. Patient comments: no complaints and pain well controlled Narrative: greatly improved Exam Constitutional Vital Signs, click to edit/add: Last Vital Signs Temp 98.0 F 01/15/24 04:56 Pulse 97 H 01/15/24 04:56 Resp 18 01/15/24 04:56 BP 103/62 01/15/24 04:56 Pulse Ox 98 01/15/24 04:56 O2 Del Method Room Air 01/15/24 04:56 O2 Flow Rate 2 01/14/24 22:00 Documenting provider has reviewed patient's vital signs: yes Common normals: no apparent distress Respiratory Common normals: normal respiratory effort and clear to auscultation bilaterally Cardio Common normals: regular rate and regular rhythm GI Common normals: Normal to inspection, nondistended, normoactive bowel sounds present Extremity Common normals: no calf tenderness Results Labs Labs: Short CBC 01/14/24 Range/Units 08:31 WBC 9.5 (4.0-11.0) 10^3/uL Hgb 8.5 L (12.0-16.0) g/dL Hct 26.2 L (36.0-48.0) % Plt Count 238 (150-450) 10^3/uL BMP 01/14/24 08:31 Sodium Potassium 3.9 Chloride Carbon Dioxide 25.8 BUN 10.0 Creatinine 0.75 Glucose 82 Calcium 8.2 L Liver Function 01/14/24 Range/Units 08:31 Total Bilirubin 0.4 (0.2-1.0) mg/dL AST 21 (15-37) U/L ALT 22 (14-59) U/L Alkaline Phosphatase 136 H (46-116) U/L Albumin 2.2 L (3.4-5.0) g/dL Urinary Catheter Management Urinary Catheter Management Urethral: Cath placed during this visit: yes, but has since been removed by the nurse Urethral indwelling: No Insertion date: 01/13/24 Insertion time: 06:20 Removal date: 01/14/24 Removal time: 05:40 OB - PN: A/P Assessment and Plan (1) Severe pre-eclampsia: Qualifiers: Trimester: unspecified trimester Qualified Code(s): O14.10 - Severe pre-eclampsia, unspecified trimester (2) UTI (urinary tract infection): Qualifiers: Urinary tract infection type: acute cystitis Hematuria presence: without hematuria Qualified Code(s): N30.00 - Acute cystitis without hematuria (3) Hypothyroidism: Qualifiers: Hypothyroidism type: acquired Qualified Code(s): E03.9 - Hypothyroidism, unspecified (4) Gestational diabetes mellitus: Qualifiers: Gestational diabetes mellitus control: insulin-controlled Trimester: unspecified trimester Qualified Code(s): O24.414 - Gestational diabetes mellitus in , insulin controlled Plan dc home, precautions given, fu 1wk, rx on chart Time Spent with Patient Time: Total time spent is greater than 50% in coordination of care (as documented) at patient's floor/unit and/or counseling patient: Total time spent with greater than 50% in coordination of care (as documented) at patient's floor/unit and/or counseling patient: less than 15 minutes
[2024-01-15 08:00] VITALS: BP 112/71; TEMP 36.4
== END 2024-01-15 09:20 | disposition home or self-care (01) | DRG 776 ==
LOC: ER 01-13 00:12 → FBC 01-13 16:17
PROVIDERS: Family Medicine; Admitting Provider Obstetrics & Gynecology; Emergency Provider Student in an Organized Health Care Education/Training Program; Visit Provider Obstetrics & Gynecology
DX: O14.15 Severe pre-eclampsia, complicating the puerperium (principal); J81.1 Chronic pulmonary edema; N30.00 Acute cystitis without hematuria; O99.285 Endocrine, nutritional and metabolic diseases complicating the puerperium; E03.9 Hypothyroidism, unspecified; O90.89 Other complications of the puerperium, not elsewhere classified; R51.9 Headache, unspecified; O24.434 Gestational diabetes mellitus in the puerperium, insulin controlled; R06.02 Shortness of breath; O86.22 Infection of bladder following delivery; Z79.899 Other long term (current) drug therapy; Z87.891 Personal history of nicotine dependence; Z20.822 Contact with and (suspected) exposure to COVID-19; Z79.890 Hormone replacement therapy; E87.6 Hypokalemia; B96.20 Unspecified Escherichia coli [E. coli] as the cause of diseases classified elsewhere
CPT/HCPCS: 36415; 51702; 70450; 71045; 71275; 76856; 80053; 81001; 82570; 82948; 83605; 83735; 83880; 84156; 84439; 84443; 84484; 85007; 85027; 85610; 85730; 87086; 87150; 87186; 87811; 93005; 94667; 94668; 94761; 96365; 96366; 96368; 96375; 96376; 99284; J0456; J0690; J1920; J1940; J3475; Q9967

== ENCOUNTER 2024-07-19 15:55 | Emergency (ER) | payer OTHER, SELFPAY ==
[2024-07-19 15:57] VITALS: BP 154/101; PULSE 78; TEMP 36.7; O2SAT 98; BMI 39.9
--- OUTSIDE RECORDS SUMMARY | 2024-07-19 16:00 | XMS_ITS | CCD ---
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 10*3/uL [facility] EOSINOPHILS PERCENT MANUAL 0.0 % Low 0.9 - 7.0 % [facility] Lymphocytes (Bld) [#/Vol] 1.56 10*3/uL [facility] Healthcare LYMPHOCYTES PERCENT MANUAL 10.0 % Low 20.5 - 60.0 % [facility] Monocytes (Bld) [#/Vol] 0.78 10*3/uL [facility] MONOCYTES PERCENT MANUAL 5.0 % 1.7 - 12.0 % [facility] SEGMENTED NEUT ABSOLUTE MANUAL 12.63 High [facility] SEGMENTED NEUTROPHILS % MANUAL 81.0 High 43.0 - 75.0 [facility] No Panel Informationon 01-07 Interpretation and review of laboratory results Abnormal [facility] PROTEIN CREAT RATIOon 2023 RANDOM URINE PROTEIN 170 mg/L High <120 [facility] Comment on above: Performed By: #### U PCR #### [facility] ([id number]) [address], [address] [place] [address] U/PRO/SUPPLIER QUALITY RATIO CALC 0.17 Normal <0.2 [facility] Comment on above: Result Comment: Neph rotic Syndrome is associated with ratios >3.5 Performed By: #### U PCR #### [facility] ([id number]) [address], [facility] [address] [place] [address] URINE CREATININE,RDM 98.06 mg/dL Normal [facility] Comment on above: Performed By: #### U PCR #### [facility] ([id number]) [address], [address] [place] [address] COMPLETE BLOOD COUNTon 09-16 Erythrocyte distribution width (RBC) [Ratio] 13.0 % Normal 11.5-15.0 [facility] Comment on above: Performed By: #### C BC, CMP, FEPR, 2532-0, 3084-1, TSHR, 2276- 4, 2284-8, 2132-01 #### [facility] ([id number]) [address], [address] [place] [address] Hematocrit (Bld) [Volume fraction] 34.6 % Low 35-47 [facility] Comment on above: Performed By: #### C BC, CMP, FEPR, 2532-0, 3084-1, TSHR, 2276- 4, 2284-8, 2132-01 #### [facility] ([id number]) [address] [place] [address] Hemoglobin (Bld) [Mass/Vol] 11.9 g/dL Normal 11.7-15.5 [facility] Comment on above: Performed By: #### C BC, CMP, FEPR, 2532-0, 3084-1, TSHR, 2276- 4, 2284-8, 2132-01 #### [facility] ([id number]) [address] [address] MCH (RBC) [Entitic mass] 30.9 pg Normal 27-34 [facility] Comment on above: Performed By: #### C BC, CMP, FEPR, 2532-0, 3084-1, TSHR, 2276- 4, 2284-8, 2132-01 #### [facility] ([id number]) [address] [address] MCHC (RBC) [Mass/Vol] 34.4 g/dL Normal 32-36 [facility] Comment on above: Performed By: #### C BC, CMP, FEPR, 2532-0, 3084-1, TSHR, 2276- 4, 2284-8, 2132-01 #### [facility] ([id number]) [address] [address] MCV (RBC) [Entitic vol] 90 fL Normal 80-100 [facility] Comment on above: Performed By: #### C BC, CMP, FEPR, 2532-0, 3084-1, TSHR, 2276- 4, 2284-8, 2132-01 #### [facility] ([id number]) [address] [address] Platelet mean volume (Bld) [Entitic vol] 9.4 fL Normal 7-12 [facility] Comment on above: Performed By: #### C BC, CMP, FEPR, 2532-0, 3084-1, TSHR, 2276- 4, 2284-8, 2132-01 #### [facility] ([id number]) [address] [address] Platelets (Bld) [#/Vol] 181 10*3/uL Normal 150-450 [facility] Comment on above: Performed By: #### C BC, CMP, FEPR, 2532-0, 3084-1, TSHR, 2276- 4, 2284-8, 2132-01 #### [facility] ([id number]) [address], [address] [place] [address] RBC COUNT 3.85 X10E12/L Normal 3.80-5.20 [facility] Comment on above: Performed By: #### C BC, CMP, FEPR, 2532-0, 3084-1, TSHR, 2276- 4, 2284-8, 2132-01 #### [facility] ([id number]) [address], [address] [place] [address] WBC (Bld) [#/Vol] 11.3 10*3/uL High 4.0-11.0 [facility] Comment on above: Performed By: #### C BC, CMP, FEPR, 2532-0, 3084-1, TSHR, 2276- 4, 2284-8, 2132-01 #### [facility] ([id number]) [address], [address] [place] [address] COMPREHENSIVE METABOLIC PANE Charles 09-17-2023 Albumin [Mass/Vol] 3.4 g/dL Normal 3.2-5.3 [facility] Comment on above: Performed By: #### C BC, CMP, FEPR, 2532-0, 3084-1, TSHR, 2276- 4, 2284-8, 2132-01 #### [facility] ([id number]) [address], [address] [place] [address] ALP [Catalytic activity/Vol] 71 U/L Normal 39-130 [facility] Comment on above: Performed By: #### C BC, CMP, FEPR, 2532-0, 3084-1, TSHR, 2276- 4, 2284-8, 2132-01 #### [facility] ([id number]) [address], [address] [place] [address] ALT [Catalytic activity/Vol] 11 U/L Normal 0-31 [facility] Comment on above: Performed By: #### C BC, CMP, FEPR, 2532-0, 3084-1, TSHR, 2276- 4, 2284-8, 2132-01 #### [facility] ([id number]) [address], [address] [place] [address] Anion gap [Moles/Vol] 11 mmol/L Normal 5-15 [facility] Comment on above: Performed By: #### C BC, CMP, FEPR, 2532-0, 3084-1, TSHR, 2276- 4, 2284-8, 2132-01 #### [facility] ([id number]) [address], [address] [place] [address] AST [Catalytic activity/Vol] 13 U/L Normal 0-41 [facility] Comment on above: Performed By: #### C BC, CMP, FEPR, 2532-0, 3084-1, TSHR, 2276- 4, 4-8, 2132-01 #### [facility] ([id number]) [address], [address] [place] [address] Bilirubin [Mass/Vol] 0.3 mg/dL Normal 0.3-1.2 [facility] Comment on above: Performed By: #### C BC, CMP, FEPR, 2532-0, 3084-1, TSHR, 2276- 4, 2284-8, 2132-01 #### [facility] ([id number]) [address], [address] [place] [address] Calcium [Mass/Vol] 9.0 mg/dL Normal 8.5-10.5 [facility] Comment on above: Performed By: #### C BC, CMP, FEPR, 2532-0, 3084-1, TSHR, 2276- 4, 2284-8, 2131-9 #### [facility] ([id number]) [address], [address] [place] [address] Chloride [Moles/Vol] 104 mmol/L Normal 98-109 [facility] Comment on above: Performed By: #### C BC, CMP, FEPR, 2532-0, 3084-1, TSHR, 2276- 4, 2284-8, 9 #### [facility] ([id number]) [address], [address] [place] [address] CO2 [Moles/Vol] 24 mmol/L Normal 22-32 [facility] Comment on above: Performed By: #### C BC, CMP, FEPR, 2532-0, 3084-1, TSHR, 2276- 4, 2284-8, 2132-01 #### [facility] ([id number]) [address], [address] [place] [address] Creatinine [Mass/Vol] 0.46 mg/dL Normal 0.40-1.00 [facility] Comment on above: Result Comment: METH OD TRACEABLE TO IDMS STANDARD Performed By: #### C BC, CMP, FEPR, 2532-0, 3084-1, TSHR, 2276-4, 2284-8, 2132-01 #### [facility] ([id number]) [address], [address] [place] [address] eGFR (CKD-EPI) NON-RACE DEPENDENT >90 Normal >59 [facility] Comment on above: Result Comment: Reported eGFR is based on the CKD-EPI 2020 equation that does not use a race coefficient. Performed By: #### C BC, CMP, FEPR, 2532-0, 3084-1, TSHR, 2276-4, 2284-8, 9 #### [facility] ([id number]) [address], [address] [place] [address] Glucose [Mass/Vol] 78 mg/dL Normal 65-99 [facility] Comment on above: Performed By: #### C BC, CMP, FEPR, 2532-0, 3084-1, TSHR, 2276- 4, 2284-8, 2132-01 #### [facility] ([id number]) [address], [address] [place] [address] Potassium [Moles/Vol] 4.0 mmol/L Normal 3.5-5.0 [facility] Comment on above: Performed By: #### C BC, CMP, FEPR, 2532-0, 3084-1, TSHR, 2276- 4, 2284-8, 2132-01 #### [facility] ([id number]) [address], [address] [place] [address] Protein [Mass/Vol] 6.5 g/dL Normal 6.0-8.0 [facility] Comment on above: Performed By: #### C BC, CMP, FEPR, 2532-0, 3084-1, TSHR, 2276- 4, 2284-8, 2132-01 #### [facility] ([id number]) [address], [address] [place] [address] Sodium [Moles/Vol] 139 mmol/L Normal 134-146 [facility] Comment on above: Performed By: #### C BC, CMP, FEPR, 2532-0, 3084-1, TSHR, 2276- 4, 2284-8, 2132-01 #### [facility] ([id number]) [address], [address] [place] [address] Urea nitrogen [Mass/Vol] 8 mg/dL Normal 5-23 [facility] Comment on above: Performed By: #### C BC, CMP, FEPR, 2532-0, 3084-1, TSHR, 2276- 4, 2284-8, 2132-01 #### [facility] ([id number]) [address], [address] [place] [address] FERRITINon 09-17-2023 Ferritin [Mass/Vol] 11 ng/mL Normal 11-307 [facility] Comment on above: Performed By: #### C BC, CMP, FEPR, 2532-0, 3084-1, TSHR, 2276- 4, 2284-8, 2132-01 #### [facility] ([id number]) [address], [address] [place] [address] Folate [Mass/Vol]on 09-17-19 24 FOLIC ACID 18.1 ng/mL Normal >5.8 [facility] Comment on above: Result Comment: NEW REFERENCE RANGE Performed By: #### C BC, CMP, FEPR, 2532-0, 3084-1, TSHR, 2276-4, 2284-8, 2132-01 #### [facility] ([id number]) [address], [address] [place] [address] IRON PROFILEon 09-17-2023 Iron [Mass/Vol] 52 ug/dL Normal 50-170 [facility] Comment on above: Performed By: #### C BC, CMP, FEPR, 2532-0, 3084-1, TSHR, 2276- 4, 2284-8, 2132-01 #### [facility] ([id number]) [address], [address] [place] [address] IRON BINDING 580 ug/dL High 250-425 [facility] Comment on above: Performed By: #### C BC, CMP, FEPR, 2532-0, 3084-1, TSHR, 2276- 4, 2284-8, 2132-01 #### [facility] ([id number]) [address], [address] [place] [address] IRON SATURATION 9 % SATURATION Low 15-50 [facility] Comment on above: Performed By: #### C BC, CMP, FEPR, 2532-0, 3084-1, TSHR, 2276- 4, 2284-8, 2132-01 #### [facility] ([id number]) [address], [address] [place] [address] LDH [Catalytic activity/Vol] on 09-17-2023 LDH 124 U/L Normal 100-235 [facility] Comment on above: Performed By: #### C BC, CMP, FEPR, 2532-0, 3084-1, TSHR, 2276- 4, 2284-8, 2132-01 #### [facility] ([id number]) [address], [address] [place] [address] Natriuretic peptide B [Mass/ Vol]on 09-17-2023 Natriuretic peptide B (Bld) [Mass/Vol] 66 pg/mL Normal <100.0 [facility] Comment on above: Performed By: #### C BC, CMP, FEPR, 2532-0, 3084-1, TSHR, 2276- 4, 2284-8, 2132-01 #### [facility] ([id number]) [address], [address] [place] [address] TSH WITH REFLEXon 09-17-2023 TSH 0.78 uIU/mL Normal 0.49-4.67 [facility] Comment on above: Performed By: #### C BC, CMP, FEPR, 2532-0, 3084-1, TSHR, 2276- 4, 2284-8, 2132-01 #### [facility] ([id number]) [address], [address] [place] [address] Thiamine (Bld) [Mass/Vol]on 09-17-2023 THIAMIN VITAMIN B1 See Below Normal [facility] Comment on above: Result Comment: NOTE TEST RESULT FLAG UNIT REF.RANGE ---- Vitamin B1 (TDP), Whole Blood 159.6 nmol/L 84.3-213.3 This assay measures the concentration of thiamine diphosphate (TDP), the primary active form of vitamin B1. Approximately 90 percent of vitamin B1 present in whole blood is TDP. Thiamine and thiamine monophosphate, which comprise the remaining 10 percent, are not measured. This test was developed and its performance characteristics determined by [facility] [place] ([facility] It has not been cleared or approved by the FDA. [facility] is regulated under CLIA as qualified to perform high-complexity testing. This test is used for clinical purposes. It should not be regarded as investigational or for research. Test Performed By: [place] [address] [employer] Supervisor: Colin Cisneros III, M.D. CLIA #[id number] Performed By: #### C BC, CMP, FEPR, 2532-0, 3084-1, TSHR, 2276-4, 2284-8, 2132-01 #### [facility] ([id number]) [address], [address] [place] [address] URIC ACIDon 09-17-2023 Urate [Mass/Vol] 5.1 mg/dL Normal 2.6-7.2 [facility] Comment on above: Performed By: #### C BC, CMP, FEPR, 2532-0, 3084-1, TSHR, 2276- 4, 2284-8, 2132-01 #### [facility] ([id number]) [address] [place] [address] VITAMIN B12on 09-17-2023 Cobalamin (Vitamin B12) [Mass/Vol] 185 pg/mL Normal 180-914 [facility] Comment on above: Performed By: #### C BC, CMP, FEPR, 2532-0, 3084-1, TSHR, 2276- 4, 2284-8, 9 #### [facility] ([id number]) [address] [place] [address] Cytology Cervical or vaginal smear or scraping studyon 08-15-2023 [facility] Health[facility] e HCG ( test) IA.rapi d Ql (U)Ordered By: Shun Hill on 03-15-2023 HCG ( test) Ql (U) Negative [facility] SARS-CoV-2 (COVID-19) RNA NA A+probe Ql (Resp)on 01-16-2023 SARS-CoV-2 (COVID-19) RNA GEORGE+probe Ql (Unsp spec) Positive [facility] Other COVID Quick Testingon 2022 Result Negative [facility] Other COVID Quick Testingon 2022 Result Negative [facility] Other COVID Quick Testingon 2022 Result Negative [facility] Other COVID Quick Testingon 2021 Result Negative [facility] Other Vital Signs Date Time Vital Sign Value Performing Clinician Facility 06-25-2024 09:55-0500 Body height 170.18 cm Irma Burt DO Work Phone: [facility] 06-25-2024 09:55-0500 Body mass index (BMI) [Ratio] 37 kg/m2 Irma Burt DO Work Phone: [facility] 06-25-2024 09:55-0500 Body weight 107.5 kg Irma Burt DO Work Phone: [facility] 02-18-2024 11:53-0400 Body weight 105.23 kg Irma VICENTE Work Phone: [facility] 02-18-2024 11:53-0400 Diastolic blood pressure 74 mm[Hg] Irma VICENTE Work Phone: [facility] 02-18-2024 11:53-0400 Systolic blood pressure 110 mm[Hg] Irma Kd PA Work Phone: [facility] 01-22-2024 10:09-0400 Body weight 108.41 kg Sagar Anai DO Work Phone: [facility] 01-22-2024 10:09-0400 Diastolic blood pressure 78 mm[Hg] Sagar Anai DO Work Phone: [facility] 01-22-2024 10:09-0400 Systolic blood pressure 124 mm[Hg] Sagar Anai DO Work Phone: [facility] 06-12-2023 13:00-0500 Body height 170.18 cm Shun Hill Other [facility] Other 06-12-2023 13:00-0500 Body mass index (BMI) [Ratio] 35.24 kg/m2 Shun Hill Other [facility] Other 06-12-2023 13:00-0500 Body weight 102.06 kg Shun Hill Other [facility] Other 03-15-2023 12:29-0400 Diastolic blood pressure 89 mm[Hg] DO Irma Burt Work Phone: [facility] 03-15-2023 12:29-0400 Heart rate 70 /min DO Irma Burt Work Phone: [facility] 03-15-2023 12:29-0400 Respiratory rate 16 /min DO Irma Burt Work Phone: [facility] 03-15-2023 12:29-0400 SaO2% (BldA) [Mass fraction] 100 % DO Irma Burt Work Phone: [facility] 03-15-2023 12:29-0400 Systolic blood pressure 132 mm[Hg] DO Irma Burt Work Phone: [facility] 03-15-2023 08:54-0400 Body height 170.18 cm DO Irma Burt Work Phone: [facility] 03-15-2023 08:54-0400 Body weight 90.71 kg DO Irma Burt Work Phone: [facility] 02-08-2023 14:45-0400 Body height 170.18 cm Shun Liz Other [facility] Other 02-08-2023 14:45-0400 Body mass index (BMI) [Ratio] 34.92 kg/m2 Shun Liz Other [facility] Other 02-08-2023 14:45-0400 Body weight 101.15 kg Shun Liz Other [facility] Other 02-08-2023 14:45-0400 Diastolic blood pressure 80 mm[Hg] Shun Liz Other [facility] Other 02-08-2023 14:45-0400 Systolic blood pressure 131 mm[Hg] Shun Liz Other [facility] Other 01-16-2023 10:35-0400 Body height 170.18 cm Aydee Hearn Other [facility] Other 01-16-2023 10:35-0400 Body mass index (BMI) [Ratio] 35.2 kg/m2 Aydee Hearn Other [facility] Other 01-16-2023 10:35-0400 Body temperature 98.3 [degF] Aydee Hearn Other [facility] Other 01-16-2023 10:35-0400 Body weight 101.97 kg Aydee Hearn Other [facility] Other 01-16-2023 10:35-0400 Diastolic blood pressure 66 mm[Hg] Aydee Nadiya Other [facility] Other 01-16-2023 10:35-0400 Respiratory rate 18 /min Aydee Nadiya Other [facility] Other 01-16-2023 10:35-0400 SaO2% (BldA) [Mass fraction] 98 % Aydee Nadiya Other [facility] Other 01-16-2023 10:35-0400 Systolic blood pressure 105 mm[Hg] Aydee Nadiya Other [facility] Other 09-23-2022 10:45-0400 Body height 170.18 cm Aydee Nadiya Other [facility] Other 09-23-2022 10:45-0400 Body mass index (BMI) [Ratio] 35.13 kg/m2 Aydee Nadiya Other [facility] Other 09-23-2022 10:45-0400 Body temperature 99.2 [degF] Aydee Nadiya Other [facility] Other 09-23-2022 10:45-0400 Body weight 101.74 kg Aydee Nadiya Other [facility] Other 09-23-2022 10:45-0400 Diastolic blood pressure 80 mm[Hg] Aydee Nadiya Other [facility] Other 09-23-2022 10:45-0400 Respiratory rate 18 /min Aydee Nadiya Other [facility] Other 09-23-2022 10:45-0400 SaO2% (BldA) [Mass fraction] 98 % Aydee Hearn Other [facility] Other 09-23-2022 10:45-0400 Systolic blood pressure 125 mm[Hg] Aydee Hearn Other [facility] Other 09-04-2022 11:20-0400 Body height 170.18 cm Aydee Hearn Other [facility] Other 09-04-2022 11:20-0400 Body mass index (BMI) [Ratio] 31.32 kg/m2 Aydee Hearn Other [facility] Other 09-04-2022 11:20-0400 Body temperature 97.8 [degF] Aydee Hearn Other [facility] Other 09-04-2022 11:20-0400 Body weight 90.72 kg Aydee Hearn Other [facility] Other 09-04-2022 11:20-0400 Respiratory rate 18 /min Aydee Hearn Other [facility] Other 09-04-2022 11:20-0400 SaO2% (BldA) [Mass fraction] 99 % Aydee Hearn Other [facility] Other Encounters Encounter Date Encounter Type Care Provider Facility Start: 07-02-2024 End: 07-02-2024 Patient encounter procedure Irma Burt DO Work Phone: [facility] Work Phone: Start: 07-02-2024 End: 07-02-2024 ambulatory Irma Burt DO Work Phone: [facility] Work Phone: Start: 06-25-2024 End: 06-25-2024 Patient encounter procedure Irma Burt DO Work Phone: [facility] Work Phone: Start: 04-14-2024 End: 04-14-2024 ambulatory Irma Burt Facility:[facility] Start: 04-14-2024 End: 04-14-2024 Patient encounter procedure Irma Burt [facility] Start: 02-18-2024 End: 02-18-2024 ambulatory IRMA KD Not Available Start: 02-18-2024 End: 02-18-2024 care visit Irma Yi PA Work Phone: [facility] Comment on above: 6 weeks f ollow-up (Primary Dx) Start: 01-22-2024 End: 01-22-2024 Bamboo flowsheet Sagar Anai DO Work Phone: [facility] Start: 01-22-2024 End: 01-22-2024 Bamboo flowsheet Sagar Anai DO Work Phone: [facility] Start: 01-22-2024 End: 01-22-2024 ambulatory SAGAR ANAI Not Available Start: 01-22-2024 End: 01-22-2024 Patient encounter status Sagar Anai DO Work Phone: [facility] Start: 01-22-2024 End: 01-22-2024 care visit Sagar Anai DO Work Phone: [facility] Comment on above: Blood pressure check ; 2 weeks follow-up Start: 01-13-2024 End: 01-14-2024 Clinisync Result Encounter Sagar Anai DO Work Phone: [facility] Unsolicited Start: 01-13-2024 End: 01-14-2024 Clinisync Result Encounter Sagar Anai DO Work Phone: [facility] Unsolicited Start: 01-09-2024 End: 01-09-2024 Clinisync Result Encounter Sagar Anai DO Work Phone: [facility] Unsolicited Start: 01-09-2024 End: 01-09-2024 Clinisync Result Encounter Sagar Anai DO Work Phone: [facility] Unsolicited Start: 01-08-2024 End: 01-08-2024 Clinisync Result Encounter Sagar Anai DO Work Phone: [facility] Unsolicited Start: 01-08-2024 End: 01-08-2024 Clinisync Result Encounter Sagar Anai DO Work Phone: [facility] Unsolicited Start: 01-02-2024 End: 01-02-2024 ambulatory SAGAR ANAI Not Available Start: 01-02-2024 End: 01-15-2024 Clinisync Result Encounter Sagar Anai DO Work Phone: [facility] Unsolicited Start: 01-02-2024 End: 01-15-2024 Clinisync Result Encounter Sagar Anai DO Work Phone: [facility] Unsolicited Start: 12-25-2023 End: 12-25-2023 ambulatory SAGAR ANAI Not Available Start: 12-24-2023 End: 12-24-2023 ambulatory GREGORIO LAVRANDOLPH [facility] Start: 12-19-2023 End: 12-19-2023 ambulatory IRMA KD Not Available Start: 12-06-2023 End: 12-06-2023 ambulatory IRMA KD Not Available Start: 11-30-2023 End: 11-30-2023 ambulatory SAGAR R ANAI [facility] Start: 11-21-2023 End: 11-21-2023 ambulatory SAGAR ANAI Not Available Start: 11-14-2023 End: 11-14-2023 ambulatory DILSHAD FRAGA [facility] Start: 11-07-2023 End: 11-07-2023 ambulatory SAGAR ANAI Not Available Start: 11-07-2023 End: 11-07-2023 ambulatory ERA MCMANUS [facility] Start: 10-22-2023 End: 10-26-2023 ambulatory KAITLYN OBRIEN [facility] Start: 10-22-2023 End: 10-22-2023 ambulatory SAGAR R ANAI [facility] Start: 10-09-2023 End: 10-09-2023 ambulatory IRMA KD Not Available Start: 10-01-2023 End: 10-01-2023 ambulatory CATHERINE GASPAR [facility] Start: 09-20-2023 End: 09-21-2023 ambulatory [facility] Start: 09-18-2023 End: 09-18-2023 ambulatory SAGAR ANAI Not Available Start: 09-17-2023 End: 09-17-2023 ambulatory SAGAR R ANAI [facility] Start: 09-17-2023 End: 09-17-2023 ambulatory KAITLYN OBRIEN [facility] Start: 08-31-2023 End: 09-04-2023 ambulatory FROYLAN [facility] Start: 08-15-2023 End: 08-15-2023 ambulatory IRMA YI Not Available Start: 07-18-2023 End: 07-18-2023 ambulatory SAGAR ANAI Not Available Start: 06-20-2023 End: 06-20-2023 ambulatory Shun Hill Other [facility] Other Start: 06-20-2023 Telephone encounter Shun Moncada ck [facility] Start: 06-19-2023 End: 06-19-2023 ambulatory SAGAR ANAI Not Available Start: 06-12-2023 End: 06-12-2023 ambulatory Shun Hill Other [facility] Other Start: 06-12-2023 Office outpatient vi sit 15 minutes Shun Hill [facility] Start: 05-01-2023 End: 05-01-2023 ambulatory DO Irma Burt Work Phone: [facility] Work Phone: Start: 05-01-2023 End: 05-01-2023 Patient encounter procedure DO Irma Burt Work Phone: [facility] Work Phone: Start: 04-10-2023 End: 04-10-2023 ambulatory DO Irma Burt Work Phone: [facility] Work Phone: Start: 04-10-2023 End: 04-10-2023 Patient encounter procedure DO Irma Burt Work Phone: [facility] Work Phone: Start: 04-06-2023 End: 04-06-2023 ambulatory Shun Hill Other [facility] Other Start: 04-06-2023 Telephone encounter Shun infante [facility] Start: 03-20-2023 End: 03-20-2023 ambulatory Shun Hill Other [facility] Other Start: 03-20-2023 Telephone encounter Shun infante [facility] Start: 03-19-2023 End: 03-19-2023 ambulatory Shun Hill Other [facility] Other Start: 03-19-2023 Telephone encounter Shun infante [facility] Start: 03-15-2023 End: 03-15-2023 Admission to same day surgery center DO Irma Burt Work Phone: [facility] Work Phone: Start: 03-15-2023 End: 03-15-2023 ambulatory DO Irma Burt Work Phone: [facility] Work Phone: Start: 02-26-2023 End: 02-26-2023 ambulatory Shun Hill Other [facility] Other Start: 02-26-2023 Telephone encounter Shun Moncada [facility] Start: 02-08-2023 End: 02-08-2023 ambulatory Shun Hill Other [facility] Other Start: 02-08-2023 Office outpatient ne w 45 minutes Shun Hill [facility] Start: 01-16-2023 End: 01-16-2023 ambulatory Aydee Nadiya Other [facility] Other Start: 01-16-2023 Office outpatient vi sit 15 minutes Aydee Nadiya [facility] Start: 09-23-2022 End: 09-23-2022 ambulatory Aydee Nadiya Other [facility] Other Start: 09-23-2022 Office outpatient vi sit 15 minutes Aydee Nadiya [facility] Start: 09-04-2022 End: 09-04-2022 ambulatory Aydee Nadiya Other [facility] Other Start: 09-04-2022 Nursing evaluation o f patient and report Aydee Nadiya [facility] Start: 07-12-2022 End: 07-12-2022 ambulatory Perla Márquez Other [facility] Other Start: 07-12-2022 Office outpatient vi sit 5 minutes Perla Yulisa [facility] Start: 07-07-2022 End: 07-07-2022 ambulatory Aydee Nadiya Other [facility] Other Start: 07-07-2022 Encounter for other preprocedural examination Aydee Hearn [facility] Start: 07-07-2022 Nursing evaluation o f patient and report Aydee Hearn [facility] Start: 02-03-2022 End: 02-03-2022 ambulatory Maria Guadalupe Powers Other [facility] Other Start: 02-03-2022 Office outpatient vi sit 5 minutes Maria Guadalupe Powers [facility] Procedures Date Procedure Procedure Detail Performing Clinician Start: 07-02-2024 Ultrasound elastogra phy of liver Irma Burt DO Work Phone: Start: 01-13-2024 ALL CBC WITH AUTO DIFF Sagar Anai DO Work Phone: Start: 01-13-2024 ALL MAGNESIUM Sagar Allison io DO Work Phone: Start: 01-13-2024 [facility] CMP (CMP) (FOR [facility] USE) Sagar Anai DO Work Phone: Start: 01-09-2024 ALL AMYLASE Sagar Fazi o DO Work Phone: Start: 01-09-2024 [facility] CMP (CMP) (FOR [facility] USE) Sagar Anai DO Work Phone: Start: 01-09-2024 [facility] LIPASE Sagar Fazi o DO Work Phone: Start: 01-09-2024 [facility] GLUCOSE FASTING Co jesus Anai DO Work Phone: Start: 01-08-2024 ALL CBC WITH AUTO DIFF Sagar Anai DO Work Phone: Start: 01-08-2024 [facility] DIFFERENTIAL Sagar Anai DO Work Phone: Start: 01-02-2024 [facility] BOX TEST SENT OUT C orey Anai DO Work Phone: Start: 08-15-2023 Microscopic observat ion [Identifier] in Cervix by Cyto stain Sagar Ospina DO Work Phone: Start: 08-15-2023 Cytp cerv/vag auto t hin layer prep mnl screen Sagar Ospina DO Work Phone: Start: 05-01-2023 Ultrasound elastogra phy of liver DO Irma Burt Work Phone: Start: 04-10-2023 CT of abdomen with contrast DO Irma Burt Work Phone: Start: 03-15-2023 Colonoscopy DO Irma lassiter Work Phone: None (qualifier value) Irma morales Plan of Treatment Date Care Activity Detail Author Start: 08-14-2028 Screening for malignant neoplasm of cervix [facility] Start: 08-18-2024 End: 08-18-2024 Patient encounter procedure 08/18/2024 2:00 PM EDT Office Visit [facility] [address] [place] [id number] Irma Yi, PA [address] [place] [address] [facility] Start: 07-02-2024 End: 07-02-2024 [facility] Start: 07-02-2024 Comprehensive metabolic 2000 panel - Serum or Plasma [facility] Start: 02-18-2024 End: 02-18-2024 ambulatory 02/18/2024 11:30 AM EDT Visit [facility] [address] [place] [id number] Irma Yi, PA [address] [place] [address] [facility] Start: 01-22-2024 End: 01-22-2024 Patient encounter procedure 01/22/2024 9:40 AM EDT Office Visit [facility] [address] [place] [id number] Sagar Ospina, DO [address] [place] [address] [place] [address] [facility] Start: 01-20-2024 Influenza vaccination Influenza Vaccine (#1) [facility] Start: 05-01-2023 [facility] Start: 03-15-2023 [facility] Start: 2015 Screening for malignant neoplasm of cervix [facility] Start: 2006 Screening for malignant neoplasm of cervix Pap Smear [facility] Albumin/Globulin ratio [facility] Anion gap measurement [facility] Basophils [#/volume] in Blood by Automated count [facility] Basophils/100 leukoc ytes in Blood by Automated count [facility] Eosinophils/100 leukocytes in Blood by Automated count [facility] Erythrocyte distribu tion width [Ratio] by Automated count [facility] Erythrocytes [#/volu me] in Blood [facility] Globulin [Mass/volum e] in Serum [facility] Hematocrit [Volume Fraction] of Blood [facility] Hemoglobin [Mass/vol ume] in Blood [facility] Leukocytes [#/volume ] corrected for nucleated erythrocytes in Blood by Automated coun [facility] Leukocytes [#/volume ] in Blood [facility] Lymphocytes [#/volum e] in Blood by Automated count [facility] Lymphocytes/100 leukocytes in Blood by Automated count [facility] MCH [Entitic mass] b y Automated count [facility] MCHC [Mass/volume] b y Automated count [facility] MCV [Entitic volume] by Automated count [facility] Monocytes [#/volume] in Blood by Automated count [facility] Monocytes/100 leukoc ytes in Blood by Automated count [facility] Neutrophils [#/volum e] in Blood by Automated count [facility] Neutrophils/100 leukocytes in Blood by Automated count [facility] Nucleated erythrocyt es [Presence] in Blood by Automated count [facility] Platelet mean volume [Entitic volume] in Blood by Automated count [facility] Platelets [#/volume] in Blood [facility] Immunizations Immunization Date Immunization Notes Care Provider Raul hernández 04-09-2023 influenza virus vaccine, unspecified formulation Sagar Ospina DO Work Phone: [facility] 01-19-2016 tetanus toxoid, redu darya diphtheria toxoid, and acellular pertussis vaccine, adsorbed Irma Burt [facility] Comment on above: Reason for Medicatio n: Other (see comment) Payers Date Payer Category Payer Self-pay [id number] 2023 Private Health Insurance [facility] [id number] 2023-Present [address] [address] [place] [address] [id number] 2023 Private Health Insurance [id number] 2.16.840.1.038513.19 1985 Unknown [id number] 2.840.1.636278.3.579.2 .1285 1985 Unknown [id number] 2.840.1.197413.3.579.2 .1285 1985 Unknown [id number] 2.16.840.1.355498.3.579.2 .1285 1985 Unknown [id number] 2.16840.1.830188.3.579.2 .1285 1985 Unknown [id number] 2.16.840.1.477824.3.579.2 .1285 1985 Unknown [id number] 2.16840.1.658711.3.579.2 .1285 1985 Unknown [id number] 2.16.840.1.406048.3.579.2 .1285 1985 Unknown [id number] 216840.1.811781.3.579.2 .1285 1985 Unknown [id number] 2.16.840.1.811130.3.579.2 .128 1985 Unknown [id number] 2.16.840.1.340415.3.579.2 .1285 1985 Unknown [id number] 2.16.840.1.046838.3.579.2 .1285 1985 Unknown [id number] 2.16.840.1.851335.3.579.2 .1285 1985 Unknown [id number] 2.16.840.1.370942.3.579.2 .1258 1985 Unknown [id number] 2.16840.1.055480.3.579.2 .1258 1985 Unknown [id number] 2.16840.1.854019.3.579.2 .1258 1985 Unknown [id number] 2.840.1.028792.3.579.2 .1258 1985 Unknown [id number] 2.840.1.032562.3.579.2 .1258 1985 Unknown [id number] 2.16840.1.720712.3.579.2 .1258 1985 Unknown [id number] 2.16840.1.979009.3.579.2 .1258 1985 Unknown [id number] 2.16840.1.824592.3.579.2 .1258 1985 Unknown [id number] 2.16840.1.746449.3.579.2 .1258 1985 Unknown [id number] 2.16840.1.275431.3.579.2 .1258 1985 Unknown [id number] 2.16.840.1.678165.3.579.2 .1258 1985 Unknown [id number] 2.16840.1.062300.3.579.2 .1258 1985 Unknown [id number] 2.16.840.1.982706.3.579.2 .1259 1985 Unknown [id number] 2.16.840.1.173305.3.579.2 .727 Medicaid [id number] Private Health Insurance [id number] 2.16.840.1.507209.19 Unknown [facility] [id number] Unknown [id number] 2.16.840.1.657917.3.579.2 .531 Social History Date Type Detail Facility Sex Assigned At [facility] Start: 03-15-2023 End: 03-15-2023 Tobacco smoking status NHIS Ex-smoker (finding) [facility] Start: 1985 Sex Assigned At Female F [facility] Tobacco Current vaping o r e-cigarette use Smokeless Tobacco Use:. Vaping, Yes [facility] Tobacco smoking status No Smoking Status Entered [facility] Tobacco smoking status DCIS Tobacco smoking consumption unknown [facility] Start: 1985 Sex assigned at Not on file [facility] Start: 07-02-2024 Sex Female (finding) [facility] Medical Equipment Procedure Code Equipment Code Equipment Origin al Text Equipment Identifier Dates Start: 11-14-2023 End: 01-22-2024 Goals Date Patient Goal Desired Activity /State Clinical Notes 02-03-2022 to 06-25-2024 Note Date & Type Note Facility 06-25-2024 Evaluation note Diagnosis Onset Date Resolution Diarrhea acute June 25, 2024 9:48am Fatty liver acute June 25, 2024 9:48am [facility] Work Phone: 1(377) 776-678709-30-2024 History of Present illness Narrative* JULES Baldwin - 02/18/2024 11:30 AM EDT Reason for Appointment: Patient ID: Laura Alves is a 38 y.o. female who presents for Follow-up Patient presents today for Post Follow Up appointment. MEDICATIONS Current Outpatient Medications Medication Instructions Alcohol Swabs (Alcohol Prep Pad) 70 % pads 1 Pad, Topical, Daily, Use four times daily to check FSBS. Blood Glucose Monitoring Suppl ([employer] Glucometer) w/Device kit 1 kit, Does not apply, Daily, Use four times daily to check FSBS. In the morning prior to breakfast & 1 hour after each meal for a total of 4times daily. Creon [id number] units capsule delayed-release particles capsule TAKE 2 CAPSULES BY MOUTH 3 TIMESA DAY WITH MEALS AND/OR SNACKS Cyanocobalamin (B-12) [address] 1 TABLET (1,000 MCG TOTAL) UNDER THE TONGUE IN THE MORNING. ferrous sulfate 325 (65 Fe) MG tablet 1 tablet, Oral, Daily with breakfast furosemide (LASIX) 20 mg, Oral, Daily levothyroxine (SYNTHROID, LEVOXYL) 75 mcg, Oral, Daily before breakfast levothyroxine (SYNTHROID, LEVOXYL) 50 mcg, Oral, Daily before breakfast miSOPROStol (Cytotec) 200 MCG tablet INSERT 3 TABS VAGINALLY AT 6 PM THE NIGHT BEFORE THE PROCEDURE omeprazole (PRILOSEC) 20 mg, Oral, Daily before breakfast, Do not crush or chew. sertraline (Zoloft) 50 MG tablet TAKE 1.5 TABLET BY MOUTH EVERY DAY DIRECTED ALLERGIES No Known Allergies PROBLEMS Active Ambulatory Problems Diagnosis Date Noted No Active Ambulatory Problems Resolved Ambulatory Problems Diagnosis Date Noted No Resolved Ambulatory Problems No Additional Past Medical History HISTORY PAST MEDICAL HISTORY SOCIAL HISTORY History reviewed. No pertinent past medical history. Social History Tobacco Use Smoking status: Not on file Smokeless tobacco: Not on file Substance Use Topics Alcohol use: Not on file Drug use: Not on file FAMILY HISTORY No family history on file. SURGICAL HISTORY Past Surgical History: Procedure Laterality Date CT ANGIOGRAM CHEST 01/13/2024 CT ANGIOGRAM CHEST REVIEW OF SYSTEMS Review of Systems: Review of Systems Constitutional: Negative. HENT: Negative. Eyes: Negative. Respiratory: Negative. Cardiovascular: Negative. Gastrointestinal: Negative. Genitourinary: Negative. Musculoskeletal: Negative. Skin: Negative. Neurological: Negative. All other systems reviewed and are negative. Hematological: Negative. Endocrine: Negative. Allergic/Immunologic: Negative. OBJECTIVE Objective: Physical Exam Constitutional: Appearance: Normal appearance. She is normal weight. HENT: Head: Normocephalic. Cardiovascular: Rate and Rhythm: Normal rate. Pulses: Normal pulses. Pulmonary: Effort: Pulmonary effort is normal. Breath sounds: Normal breath sounds. Abdominal: Palpations: Abdomen is soft. Musculoskeletal: General: Normal range of motion. Neurological: General: No focal deficit present. Mental Status: She is alert and oriented to person, place, and time. Psychiatric: Mood and Affect: Mood normal. Behavior: Behavior normal. Thought Content: Thought content normal. Judgment: Judgment normal. Vitals and nursing note reviewed. Vitals: There is no height or weight on file to calculate BMI. BP: 110/74 No LMP recorded. ASSESSMENT & PLAN No diagnosis found. Post Follow Up: Patient is doing well Patient presents today for 6 week visit. Patient is s/p Vaginal delivery. Patient states depression but denies suicidal and homicidal ideations. All options were discussed with the patient regarding control and patient desires none at this time. Follow Up: Patient is to return for annual unless needed otherwise. documented [facility] encounter[facility] [id number] History of Present illness Narrative* JULES Baldwin - 01/22/2024 9:40 AM EDT Reason for Appointment: Patient ID: Laura Alves is a 38 y.o. female who presents for Care (2 week post b/p check. Pt delivered on 01/07/2024) Patient presents today for Post Follow Up appointment.and blood pressure check MEDICATIONS Current Outpatient Medications Medication Instructions Alcohol Swabs (Alcohol Prep Pad) 70 % pads 1 Pad, Topical, Daily, Use four times daily to check FSBS. Blood Glucose Monitoring Suppl ([employer] Glucometer) w/Device kit 1 kit, Does not apply, Daily, Use four times daily to check FSBS. In the morning prior to breakfast & 1 hour after each meal for a total of 4times daily. Creon [id number] units capsule delayed-release particles capsule TAKE 2 CAPSULES BY MOUTH 3 TIMESA DAY WITH MEALS AND/OR SNACKS Cyanocobalamin (B-12) [address] 1 TABLET (1,000 MCG TOTAL) UNDER THE TONGUE IN THE MORNING. ferrous sulfate 325 (65 Fe) MG tablet 1 tablet, Oral, Daily with breakfast furosemide (LASIX) 20 mg, Oral, Daily levothyroxine (SYNTHROID, LEVOXYL) 75 mcg, Oral, Daily before breakfast miSOPROStol (Cytotec) 200 MCG tablet INSERT 3 TABS VAGINALLY AT 6 PM THE NIGHT BEFORE THE PROCEDURE omeprazole (PRILOSEC) 20 mg, Oral, Daily before breakfast, Do not crush or chew. sertraline (Zoloft) 50 MG tablet TAKE 1.5 TABLET BY MOUTH EVERY DAY DIRECTED ALLERGIES No Known Allergies PROBLEMS Active Ambulatory Problems Diagnosis Date Noted No Active Ambulatory Problems Resolved Ambulatory Problems Diagnosis Date Noted No Resolved Ambulatory Problems No Additional Past Medical History HISTORY PAST MEDICAL HISTORY SOCIAL HISTORY No past medical history on file. Social History Tobacco Use Smoking status: Not on file Smokeless tobacco: Not on file Substance Use Topics Alcohol use: Not on file Drug use: Not on file FAMILY HISTORY No family history on file. SURGICAL HISTORY Past Surgical History: Procedure Laterality Date CT ANGIOGRAM CHEST 01/13/2024 CT ANGIOGRAM CHEST REVIEW OF SYSTEMS Review of Systems: Review of Systems Constitutional: Negative. HENT: Negative. Eyes: Negative. Respiratory: Negative. Cardiovascular: Negative. Gastrointestinal: Negative. Genitourinary: Negative. Musculoskeletal: Negative. Skin: Negative. Neurological: Negative. All other systems reviewed and are negative. Hematological: Negative. Endocrine: Negative. Allergic/Immunologic: Negative. OBJECTIVE Objective: Physical Exam Constitutional: Appearance: Normal appearance. She is normal weight. HENT: Head: Normocephalic. Cardiovascular: Rate and Rhythm: Normal rate. Pulses: Normal pulses. Pulmonary: Effort: Pulmonary effort is normal. Breath sounds: Normal breath sounds. Abdominal: Palpations: Abdomen is soft. Musculoskeletal: General: Normal range of motion. Neurological: General: No focal deficit present. Mental Status: She is alert and oriented to person, place, and time. Psychiatric: Mood and Affect: Mood normal. Behavior: Behavior normal. Thought Content: Thought content normal. Judgment: Judgment normal. Vitals and nursing note reviewed. Vitals: There is no height or weight on file to calculate BMI. BP: 124/78 Patient's last menstrual period was 05/09/2023. ASSESSMENT & PLAN ICD-10-CM 1. Blood pressure check Z01.30 2. 2 weeks follow-up Z39.2 Patient doing well post and feeling better. BP has improved and may be taken off labetolol. Pt will follow up for 6 weeks in 5 weeks. Documented by JULES Baldwin on behalf of: Sagar Opsina DO documented in this encounterHCA Midwest [id number] FOOT LT MIN 3 VWS Procedure: Left foot radiographs performed Number of views:3 History:Pain Comparison:None Findings: There is no fracture, dislocation, or destructive lesion. Soft tissue edema is seen overlying the dorsum of the foot Impression: Soft tissue edema. No acute fractures or dislocations are seen. Finalized by Mayelin Pinto DO on 08/31/2023 11:23 [facility] 06-12-2023 Evaluation note* Encounter Date Diagnosis Assessment Notes Treatment Notes Treatment Clinical Notes May, Diarrhea (ICD-10 - R19.7) Patient reports that she is about 7-8 weeks gestational Patient reports improvement on Creon with occasional flare Patient reports that she is taking a fiber supplement May, Fatty liver (ICD-10 - K76.0) Patient did have a FibroScan that indicates fatty liver and minimal scaring, this will be reviewed [facility] Other 11-17-2023 Evaluation note* Encounter Date Diagnosis Assessment Notes Treatment Notes Treatment Clinical Notes Mar, Exocrine pancreatic insufficiency (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) [facility] Other 10-31-2023 Evaluation note* Encounter Date Diagnosis Assessment Notes Treatment Notes Treatment Clinical Notes Feb, Alternating constipation and diarrhea (ICD-10 - R19.8) Feb, Fecal urgency (ICD-10 - R15.2) [facility] Other 10-30-2023 Evaluation note* Encounter Date Diagnosis Assessment Notes Treatment Notes Treatment Clinical Notes Feb, Alternating constipation and diarrhea (ICD-10 - R19.8) [facility] Other 10-26-[facility]23 [facility]* Encounter Date Diagnosis Assessment Notes Treatment Notes Treatment Clinical Notes Feb, Alternating constipation and diarrhea (ICD-10 - R19.8) [facility] Other 09-21-2023 Evaluation note* Encounter Date Diagnosis Assessment Notes Treatment Notes Treatment Clinical Notes Jan, Alternating constipation and diarrhea (ICD-10 - R19.8) WORSENING DIARRHEA AND CONSTIPATION OVER THE PAST YEAR. DOES HAVE SOME NOCTURNAL AWAKENINGS WITH THE DIARRHEA. CAN GO 4-5 DAYS WITH OUT A BOWEL MOVEMENT WHEN SHE IS CONSTIPATED. WILL ORDER IBS WORK UP WILL PROCEED WITH COLONOSCOPY [facility] Other 08-29-2023 Evaluation note* Encounter Date Diagnosis [...] no improvement in 2 to 3 days [facility] Other 2023 Evaluation note* Encounter Date Diagnosis [...] no improvement in 2 to 3 days [facility] Other 04-17-2023 Evaluation note* Encounter Date Diagnosis Assessment Notes Treatment Notes Treatment Clinical Notes Aug, Contact with and (suspected) exposure to other viral communicable diseases (ICD-10 - Z20.828) [facility] Other 02-22-2023 Evaluation note* Encounter Date Diagnosis Assessment Notes Treatment Notes Treatment Clinical Notes Jun, Contact with and (suspected) exposure to covid-19 (ICD-10 - Z20.822) [facility] Other 02-17-2023 Evaluation note* Encounter Date Diagnosis Assessment Notes Treatment Notes Treatment Clinical Notes Jun, Preoperative clearance (ICD-10 - Z01.818) [facility] Other 09-16-2022 Evaluation note* Encounter Date Diagnosis Assessment Notes Treatment Notes Treatment Clinical Notes Jan, Contact with and (suspected) exposure to covid-19 (ICD-10 - Z20.822) [facility] Other Evaluation + Plan note No data available for this section [facility] Evaluation note* Diagnosis Onset Date Resolution Status Diarrhea acute [facility] Work Phone: Evaluation noteNo InformationNort [employer] Other Evaluation note* Diagnosis Blood pressure check Screening for hypertension 2 weeks follow-up [facility] Diagnosis 6 weeks follow-up- Primary documented in this encounter [facility] general Narrative - Reported* Type Description Date Medical History ANXIETY AND DEPRESSION [facility] Other Hospital Discharge instructions Additional Instructions DISCHARGE [...] if you have any problems. -Office number [phone] Work Phone: Hospital Discharge instructions No data available for this section [facility] Progress note No data available for this section [facility] Reason for visit NarrativeRED EQUINOX, ANTIGEN PROCEDURE TESTNoEn[facility] Health Other Reason for visit NarrativeNEEDSNEGATIVE, RAPID COVID TEST [facility] Other Chief Complaint and Reason for Visit Chief Complaint Diarrhea, Constipati on Reason for Visit Diarrhea Chief Complaint Diarrhea, Constipati on K86.81 Reason for Visit Diarrhea Chief Complaint Diarrhea, Constipati on K86.81 fatty liver Reason for Visit Diarrhea Chief Complaint Admit Date 1 YR FOLLOW UP - DIARRHEA/ FATTY LIVER F ebruary 2024 9:48am fatty liver July 02, 2024 1:12pm Reason for Visit Admit Date Diarrhea June 25, 2024 9 :48am Fatty liver June 25, 2024 9 :48am Advance Directives No Advanced Directives Records Found Advance Directive Response Recorded Date/ Time Advance Directives No January 07, 2018 3:47pm Advance Directive Response Recorded Date/ Time Advance Directives No January 07, 2018 2:47pm Summary Purpose Family History No Family History Records Found Additional Source Comments REASON FOR VISIT (unrecogniz ed section and content) Reason Comments Care 2 week post b /p check. Pt delivered on 01/07/2024 Reason Comments Follow-up Care Teams (unrecognized sec tion and content) Team Status: Active Member Role Status Dates Irma D Burt , DO Primary Care Provider Active Team Status: Inactive Member Role Status Dates Shun Hill MD Attending Provider Active Irma Burt DO Primary Care Provider Active Team Status: Inactive Member Role Status Dates Irma Burt DO Primary Care Provider Active Shun Hill MD Attending Provider Active [employer]ist Relationship Specialty Start Date End Date Irma Burt MD [address] [place] [phone] PCP - General Family Medicine 06/19/23 [employer]ist Relationship Specialty Start Date End Date Irma Burt MD [address] [place] [phone] PCP - General Family Medicine 06/19/23 [employer]cal Economist Relationship Specialty Start Date End Date Irma Burt MD [address] [place], [phone] PCP - General Family Medicine 06/19/23 [employer]cal Economist Relationship Specialty Start Date End Date Irma Burt MD [address] [place] [phone] PCP - General Family Medicine 06/19/23 [employer]cal Economist Relationship Specialty Start Date End Date Irma Burt MD [address] [facility] [place] [phone] PCP - General Family Medicine 06/19/23 Team Status: Inactive Member Role Status Dates Irma Burt DO Primary Care Provider Active S tart: June 25, 2024 End: June 25, 2024 Heather Vasquez DO Attending Provider Active St art: June 25, 2024 End: June 25, 2024 Team Status: Inactive Member Role Status Dates Irma Burt DO Primary Care Provider Active S tart: July 02, 2024 End: July 02, 2024 Heather Vasquez DO Attending Provider Active St art: July 02, 2024 End: July 02, 2024 INFORMATION SOURCE (unrecogn ized section and content) DATE CREATED AUTHOR 09/22/2023 [facility] DATE CREATED AUTHOR AUTHOR'S ORGANIZ ATION 12/25/2023 [facility] DATE CREATED AUTHOR AUTHOR'S ORGANIZ ATION 02/19/2024 [facility] DATE CREATED AUTHOR AUTHOR'S ORGANIZ ATION 04/21/2024 [facility] DATE CREATED AUTHOR AUTHOR'S ORGANIZ ATION 07/10/2024 [facility] Goals (unrecognized section and content) Goals may be documented in a n alternate section FOR RECORDS PERTAINING TO PATIENTS WHO ARE [...] BE BASED ON THE PRIMARY CLINICAL RECORDS. [facility] [employer] provides no warranty or guarantee of the accuracy or completeness of information in this document.
[2024-07-19 16:03] VITALS: BP 132/98
--- NOTE | 2024-07-19 16:11 | ED.EYEPROB1 ---
HPI - Eye Problem General Chief complaint: Eye Problems Stated complaint: right eye pain Time Seen by Provider: 07/19/24 16:04 Source: patient Mode of arrival: walk-in History of Present Illness HPI Narrative: cc = right eye injury Pt states that she was unpacking a screen that attaches to a chair to protect you from the sun - a type of shade for outdoor reclining chairs - when one of the plastic packing straps came loose and struck her in the right eye. She was not wearing any contacts or glasses. She said that it struck her directly in the eye and not on the orbit, face, eyebrows or cheek. Right upper eyelid is swollen and painful. No loss or decrease in vision. She has some nausea and mild frontal headache. Nothing taken [employer]. She does not take blood thinners. Related Data Home Medications ?Medication ?Instructions ?Recorded ?Confirmed [id number] 2 cap PO TID 07/16/23 07/19/24 36,000-114,000-180,000 unit capsule,delay rel (Creon) sertraline 50 mg tablet 75 mg PO DAILY 07/16/23 07/19/24 cyanocobalamin (vitamin B-12) 1,000 mcg PO DAILY 12/08/23 07/19/24 1,000 mcg sublingual tablet ferrous sulfate 325 mg (65 mg 325 mg PO DAILY 12/08/23 07/19/24 iron) tablet omeprazole 20 mg capsule,delayed 20 mg PO DAILY 12/08/23 07/19/24 release Previous Rx's ?Medication ?Instructions ?Recorded ciprofloxacin HCl 0.3 % eye drops 2 drp ophthalmic (eye) Q4H 5 days 07/19/24 #5 mL Allergies Allergy/AdvReac Type Severity Reaction Status Date / Time No Known Drug Allergies Allergy Verified 01/07/24 14:04 [facility] Medical History (Updated 07/19/24 @ 16:29 by Abel Valadez) Normal colonoscopy Normal hysteroscopy ?Z01.89 - Encounter for other specified special examinations (ICD-10) Family History Father Family history of CHF (congestive heart failure) Social History Smoking status: Former smoker Highest level of school completed/degree received: some college, no degree Little interest or pleasure in doing things: not at all Feeling down, depressed, or hopeless: not at all Exam Narrative Exam Narrative: General: The patient appears well and in no apparent distress. Patient is resting comfortably on cart. Skin: Warm, dry, no pallor noted. Head: Normocephalic, atraumatic Neck: Supple, trachea mid-line, no tenderness, no lymphadenopathy Eye: Normal extraocular motion without associated pain. Pupils equal, round and reactive to light. No conjunctival injection or pupillary deformity noted. Moderate swelling of the right upper eyelid. The patient had ALCAINE/TETRACAINE applied to the right eye with fluorescein dye instilled afterward. Exam with Wood's lamp showed semicircular uptake across the cornea and into the conjunctiva - along the 2 o'clock position. No evidence of hyphema, dendritic lesion, corneal ulcerations, preseptal cellulitis or orbital cellulitis. Ears, Nose, Mouth, and Throat: oral mucosa is moist Respiratory: Patient is in no distress Neurological: A&O x4, normal speech Psychiatric: Cooperative and interactive. Constitutional Vital Signs, click to edit/add: Last Vital Signs Temp 98.1 F 07/19/24 15:57 Pulse 78 07/19/24 15:57 Resp 18 07/19/24 15:57 BP 132/98 H 07/19/24 16:03 Pulse Ox 98 07/19/24 15:57 O2 Del Method Room Air 07/19/24 15:57 Course Vital Signs Vital signs: Vital Signs Temperature 98.1 F 07/19/24 15:57 Pulse Rate 78 07/19/24 15:57 Respiratory Rate 18 07/19/24 15:57 Blood Pressure 154/101 H 07/19/24 15:57 Pulse Oximetry 98 07/19/24 15:57 Oxygen Delivery Method Room Air 07/19/24 15:57 Temperature 98.1 F 07/19/24 15:57 Pulse Rate 78 07/19/24 15:57 Respiratory Rate 18 07/19/24 15:57 Blood Pressure 132/98 H 07/19/24 16:03 Pulse Oximetry 98 07/19/24 15:57 Oxygen Delivery Method Room Air 07/19/24 15:57 MDM - Eye Problem MDM Narrative Medical decision making narrative: The patient felt better after the tetracaine was applied. She does have a semicircular line of fluorescein dye uptake extending from the cornea to the conjunctiva. The upper right eyelid is swollen so I expect that she had her eye closed in time to avoid a direct blow to the surface of the eye but the impact caused not only swelling in injury to the right upper eyelid but also impact onto the conjunctiva and cornea of the right eye. The patient was given Zofran for nausea. She had apparently taken Tylenol just prior to arrival. She will be discharged home with a prescription for additional Zofran as well as for a topical antibiotic drops to apply to the right eye prevent any potential infection associated with the injury. Discharge Plan Discharge Chief Complaint: Eye Problems Clinical Impression: Corneal abrasion, Blunt eye trauma Patient Disposition: Home, Self-Care Time of Disposition Decision: 16:29 Prescriptions / Home Meds: New ciprofloxacin HCl 0.3 % drops 2 drp ophthalmic (eye) Q4H 5 Days Qty: 5 0RF Rx Instructions: administer while awake No Action ferrous sulfate 325 mg (65 mg iron) tablet 325 mg PO DAILY omeprazole 20 mg capsule,delayed release(DR/EC) 20 mg PO DAILY cyanocobalamin (vitamin B-12) 1,000 mcg tablet, sublingual 1,000 mcg PO DAILY sertraline 50 mg tablet 75 mg PO DAILY Creon 36,000-114,000- 180,000 unit capsule,delayed release(DR/EC) 2 cap PO TID Rx Instructions: administer with meals and/or snacks Print Language: German Instructions: Corneal Abrasion (ED) Referrals: ROLA SANTIZO [Primary Care Provider] - 1 week
[2024-07-19] MEDS: ONDANSETRON 4 MG RAPDIS TABLET SL (16:35)
[2024-07-19] MEDS: TETRACAINE HCL 0.5% OP SOL 80 DROP/4 ML BOTTLE OP (16:35)
[2024-07-19] MEDS: FLUORESCEIN SODIUM 1 MG STRIP OP (16:36)
== END 2024-07-19 16:38 | disposition home or self-care (01) ==
PROVIDERS: Emergency Provider Emergency Medicine
DX: S05.01XA Injury of conjunctiva and corneal abrasion without foreign body, right eye, initial encounter (principal); W22.8XXA Striking against or struck by other objects, initial encounter; Z87.891 Personal history of nicotine dependence
CPT/HCPCS: 99283; Q0162

== ENCOUNTER 2024-08-18 20:27 | Outpatient (REF) | payer OTHER, SELFPAY ==
--- OUTSIDE RECORDS SUMMARY | 2024-08-18 20:31 | XMS_ITS | CCD ---
Author Organization [facility] Care Team Providers Care Manager Truck Name Role Phone Maria Guadalupe Powers Unavailable Aydee Hearn Unavailable YulisaMendezie Unavailable Shun Hill Unavailable MD Shun Hill Attending Provider DO Irma Burt Primary Care Provider [phone] MD Shun Hill Attending Provider [phone] DO Irma Burt Primary Care Provider [phone] FROYLAN RAMOS Referring Unavailable NO PCP, NO [...] NO PCP, NO PCP Primary Care Unavailable EAR MCMANUS Attending Unavailable ANAI, SAGAR R Referring [...] Attending Unavailable Irma Burt Primary Care Physician Irma Burt Attending Unavailable Irma Burt Admitting Unavailable Irma Burt MD Primary Care Provider [phone] Irma Burt DO Primary Care Provider Heather Vasquez DO Attending Provider Heather Vasquez Attending Unavailable Heather Vasquez Admitting Unavailable Irma Burt Primary Care Unavailable Medications Current Medications Medication Drug Class(es) Dates Sig (Normalized) Sig (Original) amoxicillin 500 mg oral capsule (2 sources) Penicillin-class Antibacterial Start: 07-26-2022 take 1 capsule by mouth every eight hours Amoxicillin 500 MG 1 capsule Orally three times a day for 10 day(s) Jul, Active amylase 047905 unt / lipase 06583 unt / protease 899352 unt delayed release oral capsule (18 sources) Start: 10-17-2023 End: 06-25-2024 take 2 capsules by mouth three times daily at mealtime Creon [id number] units capsule delayed-release particles capsule TAKE 2 CAPSULES BY MOUTH 3 TIMES A DAY WITH MEALS AND/OR SNACKS 11/18/2023 Active Start: 04-06-2023 take 2 capsules by m outh three times daily at mealtime Creon [id number] UNIT 2 capsules Orally three times a day with meals for 30 days Mar, Active aspirin 81 mg delayed release oral tablet (7 sources) Platelet Aggregation Inhibitor, Nonsteroidal Anti-inflammatory Drug End: 01-22-2024 take 1 tablet by mouth in the morning aspirin 81 MG EC tablet Take 81 mg by mouth in the morning. 01/22/2024 Discontinued (Therapy completed) Cyanocobalamin (Vitamin B-12) 1,000 mcg tablet, sublingual (1 source) Start: 06-25-2024 take 1 tablet under the tongue once Cyanocobalamin (Vitamin B-12) 1,000 mcg tablet, sublingual Active 1000 MCG SUBLINGUAL Once June 25, 2024 12:00am ferrous sulfate 325 mg oral tablet (13 sources) Start: 06-25-2024 take 1 tablet by mouth once Ferrous Sulfate 325 mg (65 mg iron) tablet Active 325 MG PO Once June 25, 2024 12:00am Start: 11-12-2023 take 1 tablet by keara th at mealtime ferrous sulfate 325 (65 Fe) MG tablet Take 1 tablet by mouth in the morning. Take with meals. 11/12/2023 Active 3 ml insulin glargine 100 unt/ml pen [...] before dinner 12/03/2023 01/22/2024 Discontinued (Therapy completed) magnesium sulfate 225 MG / potassium chloride 188 MG / sodium sulfate 1479 MG Oral Tablet [Sutab] (5 sources) Start: 02-08-2023 take 1 tablet by mouth twice daily Sutab 8169-047-688 MG 12 tablets the first dose the [...] 11:00pm vitamin b12 1 mg sublingual tablet (12 sources) Vitamin B12 take 1 tablet under [...] a day for 5 day(s) September, Not-Taking Blood Glucose Monitoring Suppl (D-Care Glucometer) w/Device kit (12 sources) Start: 10-29-2023 End: 08-18-2024 Blood Glucose Monitoring Suppl (D-Care Glucometer) w/Device kit Indications: Gestational diabetes mellitus (GDM), antepartum, gestational diabetes method of control unspecified , Elevated glucose tolerance test 1 kit Daily Use four times daily to check FSBS. In the morning prior to breakfast & 1 hour after each meal for a total of 4times daily. 1 kit 10/29/2023 08/18/2024 Discontinued Start: 10-29-2023 End: 10-28-2024 [address] Sup [address] (D-Care Glucometer) w/Device kit Indications: Gestational diabetes mellitus (GDM), antepartum, gestational diabetes method of control unspecified , Elevated glucose tolerance test 1 kit Daily Use four times daily to check FSBS. In the morning prior to breakfast & 1 hour after each meal for a total of 4times daily. 1 kit 10/29/2023 10/28/2024 Active Desogestrel / Ethinyl Estradiol (4 sources) Progestin, Estrogen Start: 03-15-2023 End: 06-25-2024 Desogestrel-Ethinyl Estradiol (Apri) 0.15-0.03 mg tablet Discontinued 1 TAB PO Daily March 14, 2023 11:00pm June 25, 2024 9:57am Start: 03-15-2023 Desogestrel-Et hinyl Estradiol (Apri) 0.15-0.03 mg tablet Active 1 TAB PO Daily March 14, 2023 11:00pm Start: 03-15-2023 Desogestrel-Et hinyl Estradiol (Apri) 0.15-0.03 mg tablet Active 1 TAB PO Daily March 15, 2023 12:00am 84 hr estradiol 0.66360 mg/hr transdermal system (4 sources) Estrogen take 1 tablet by keara th every eight hours Estradiol 2 MG 1 tablet Orally THREE TIMES A DAY Not-Taking apply 1 dose transde rmal route two times weekly Estradiol 0.1 MG/24HR 1 patch to skin Transdermal Two times a Week Not-Taking furosemide 20 mg oral tablet (20 sources) Loop Diuretic Start: 03-15-2023 End: 08-18-2024 take 1 tablet by mouth in the morning furosemide (Lasix) 20 MG tablet Take 20 mg by mouth in the morning. 03/22/2023 08/18/2024 Discontinued ibuprofen 800 mg oral tablet (4 sources) Nonsteroidal Anti-inflammatory Drug Start: 01-07-2018 End: 03-15-2023 take 1 tablet by mouth three times daily as needed for pain Ibuprofen 800 mg tablet Discontinued 800 MG PO Three times daily as needed for pain January 06, 2018 11:00pm March 15, 2023 7:47am isopropyl alcohol 0.7 ml/ml medicated pad (12 sources) Start: 10-29-2023 End: 08-18-2024 Alcohol Swabs (Alcohol Prep Pad) 70 % pads Indications: Gestational diabetes mellitus (GDM), antepartum, gestational diabetes method of control unspecified , Elevated glucose tolerance test Apply 1 Pad topically Daily Use four times daily to check FSBS. 150 each 3 10/29/2023 08/18/2024 Discontinued levothyroxine sodium 0.05 mg oral tablet (20 sources) l-Thyroxine Start: 05-12-2024 End: 08-18-2024 take 1 tablet by mouth once daily before mealtime levothyroxine (Synthroid, Levoxyl) 50 MCG tablet Indications: Abnormal TSH TAKE 1 TABLET BY MOUTH EVERY DAY IN THE MORNING BEFORE MEALS 90 tablet 05/12/2024 08/18/2024 Discontinued Start: 02-07-2024 End: 05-07-2024 take 1 tablet by mouth before mealtime levothyroxine (Synthroid, Levoxyl) 50 MCG tablet Indications: Abnormal TSH Take 1 tablet (50 mcg) by mouth in the morning. Take before meals. 90 tablet 02/07/2024 05/07/2024 Active Start: 03-15-2023 End: 08-18-2024 take 1 tablet by mouth before mealtime levothyroxine (Synthroid, Levoxyl) 75 MCG tablet Indications: Abnormal TSH Take 1 tablet (75 mcg) by mouth in the morning. Take before meals. 30 tablet 2 10/09/2023 08/18/2024 Discontinued take 1 tablet by keara th once daily in the morning Levothyroxine Sodium 50 MCG 1 tablet in the morning on an empty stomach Orally Once a day Active take 1 tablet by keara th once daily in the morning Levothyroxine Sodium 50 MCG 1 tablet in the morning on an empty stomach Orally Once a day Active miSOPROStol 0.2 mg oral tablet (12 sources) Prostaglandin E1 Analog Start: 08-18-2022 End: 08-18-2024 miSOPROStol (Cytotec) 200 MCG tablet INSERT 3 TABS VAGINALLY AT 6 PM THE NIGHT BEFORE THE PROCEDURE 08/18/2022 08/18/2024 Discontinued omeprazole 20 mg delayed release oral capsule (12 sources) Proton Pump Inhibitor Start: 12-06-2023 End: 12-05-2024 take 1 capsule by mouth before mealtime omeprazole (PriLOSEC) [address] capsule Indications: Heartburn during in third trimester Take 1 capsule (20 mg) by mouth in the morning. Take before meals. Do not crush or chew.. 30 capsule 11 12/06/2023 08/18/2024 Discontinued Problems Active Problems Problem Classification Problem Date [...] Test Name Value Interpretation Reference Range Facility HCG ( test) Ql (U)o n 08-18-2024 Interpretation and review of laboratory results Normal [facility] re Preg Test, Ur Negative Negative [facility] Complete Blood Count Auto Di ffon 07-02-2024 Basophils (Bld) [#/Vol] 0.1 10*3/uL Normal 0.0-0.2 [facility] Comment on above: Result Comment: PERF ORMED BY: [address] [address] PATHOLOGIST CUSTOMER CARE CONSULTANT CLARISSA PARMAR M.D. Performed By: #### C BC, CMP #### [place] [address] [place] Basophils/100 WBC (Bld) 0.8 % Normal . [facility] Comment on above: Performed By: #### C BC, CMP #### [address] Eosinophils (Bld) [#/Vol] 0.2 10*3/uL Normal 0.0-0.45 [facility] Comment on above: Performed By: #### C BC, CMP #### [address] Eosinophils/100 WBC (Bld) 1.8 % Normal . [facility] Comment on above: Performed By: #### C BC, CMP #### [address] Erythrocyte distribution width (RBC) [Ratio] 13.7 % Normal 11.9-15.3 [facility] Comment on above: Performed By: #### C BC, CMP #### [address] Hematocrit (Bld) [Volume fraction] 37.8 % Normal 34.0-46.4 [facility] Comment on above: Performed By: #### C BC, CMP #### [address] Hemoglobin (Bld) [Mass/Vol] 12.8 g/dL Normal 11.8-15.4 [facility] Comment on above: Performed By: #### C BC, CMP #### [address] Lymphocytes (Bld) [#/Vol] 2.0 10*3/uL Normal 1.00-4.8 [facility] Comment on above: Performed By: #### C BC, CMP #### [address] Lymphocytes/100 WBC (Bld) 23.1 % Normal . [facility] Comment on above: Performed By: #### C BC, CMP #### [address] MCH (RBC) [Entitic mass] 28.3 pg Normal 24.7-34.3 [facility] Comment on above: Performed By: #### C BC, CMP #### [address] MCV (RBC) [Entitic vol] 83.3 fL Normal 80-100 [facility] Comment on above: Performed By: #### C BC, CMP #### [address] Mean Corpuscular HGB Conc 33.9 g/dL Normal 32.0-35.0 [facility] Comment on above: Performed By: #### C BC, CMP #### [address] Monocytes (Bld) [#/Vol] 1.0 10*3/uL High 0.0-0.8 [facility] Comment on above: Performed By: #### C BC, CMP #### [address] Monocytes/100 WBC (Bld) 12.0 % Normal . [facility] Comment on above: Performed By: #### C BC, CMP #### [address] Neutrophils (Bld) [#/Vol] 5.4 10*3/uL Normal 1.8-7.7 [facility] Comment on above: Performed By: #### C BC, CMP #### [address] Neutrophils/100 WBC (Bld) 62.3 % Normal . [facility] Comment on above: Performed By: #### C BC, CMP #### [address] NRBC% 0.2 /100{WBC} Normal 0-0.5 [facility] Comment on above: Performed By: #### C BC, CMP #### [address] Platelet mean volume (Bld) [Entitic vol] 8.3 fL Normal 6.3-10.7 [facility] Comment on above: Performed By: #### C BC, CMP #### [address] Platelets (Bld) [#/Vol] 224 10*3/uL Normal 150-450 [facility] Comment on above: Performed By: #### C BC, CMP #### [address] RBC (Bld) [#/Vol] 4.54 10*6/uL Normal 3.60-5.00 [facility] Comment on above: Performed By: #### C BC, CMP #### [address] WBC (Bld) [#/Vol] 8.6 10*3/uL Normal 3.8-11.6 [facility] Comment on above: Performed By: #### C BC, CMP #### [address] Comprehensive Metabolic Pane charles 07-02-2024 Albumin [Mass/Vol] 4.5 g/dL Normal 3.5-5.7 [facility] Comment on above: Performed By: #### C BC, CMP #### [address] Albumin/Globulin [Mass ratio] 1.7 {ratio} Normal [facility] Comment on above: Performed By: #### C BC, CMP #### [address] ALP [Catalytic activity/Vol] 91 U/L Normal 34-104 [facility] Comment on above: Result Comment: PERF ORMED BY: [place] [address] PATHOLOGIST CUSTOMER CARE CONSULTANT CLARISSA PARMAR M.D. Performed By: #### C BC, CMP #### [address] ALT [Catalytic activity/Vol] 41 U/L Normal 7-52 [facility] Comment on above: Performed By: #### C BC, CMP #### [facility] [address] [id number] [place] Anion gap [Moles/Vol] 10.0 mmol/L Normal 6.0-15.0 [facility] Comment on above: Performed By: #### C BC, CMP #### [facility] [address] [phone] [place] AST [Catalytic activity/Vol] 29 U/L Normal 13-39 [facility] Comment on above: Performed By: #### C BC, CMP #### [facility] [address] [phone] [place] Bilirubin [Mass/Vol] 0.4 mg/dL Normal 0.3-1.0 [facility] Comment on above: Performed By: #### C BC, CMP #### [place] [id number] [place] Calcium [Mass/Vol] 9.6 mg/dL Normal 8.6-10.3 [facility] Comment on above: Performed By: #### C BC, CMP #### [place] [id number] [place] Chloride [Moles/Vol] 102 mmol/L Normal 98-107 [facility] Comment on above: Performed By: #### C BC, CMP #### [facility] [address] [phone] [place] CO2 [Moles/Vol] 29.2 mmol/L Normal 21.0-31.0 [facility] Comment on above: Performed By: #### C BC, CMP #### [place] [phone] [place] Creatinine [Mass/Vol] 0.65 mg/dL Normal 0.60-1.20 [facility] Comment on above: Performed By: #### C BC, CMP #### [place] [id number] [place] GFR/1.73 sq M.predicted MDRD (S/P/Bld) [Vol rate/Area] mL/min/{1.73_m2} Normal [facility] Comment on above: Performed By: #### C BC, CMP #### [address] Globulin (S) [Mass/Vol] 2.7 g/dL Normal [facility] Comment on above: Performed By: #### C BC, CMP #### [address] Glucose [Mass/Vol] 69 mg/dL Low 70-100 [facility] Comment on above: Result Comment: [facility] Glucose Reference Range is dependent on time and content of last meal. Glucose of more than 200 mg/dL in a nonstressed, ambulatory subject supports the diagnosis of Diabetes Mellitus. ADA recommended reference range Performed By: #### C BC, CMP #### [address] Potassium [Moles/Vol] 4.2 mmol/L Normal 3.5-5.1 [facility] Comment on above: Performed By: #### C BC, CMP #### [address] Protein [Mass/Vol] 7.2 g/dL Normal 6.4-8.9 [facility] Comment on above: Performed By: #### C BC, CMP #### [address] Sodium [Moles/Vol] 137 mmol/L Normal 136-145 [facility] Comment on above: Performed By: #### C BC, CMP #### [address] Urea nitrogen [Mass/Vol] 18 mg/dL Normal 7-25 [facility] Comment on above: Performed By: #### C BC, CMP #### [address] XR Spine Lumbosacral Minimum 4 Viewson [...] FINAL REPORT Dictated: 04/15/2024 3:29 pm Jordan Tomas DO Signed (Electronic Signature): 04/15/2024 3:29 pm Signed by: Jordan Tomas DO Transcribed by: SHAYNA Technologist: SVEN Technical Comments Radiation Dose: Ka,r in mGy = . DAP = . Normal [facility] XR Wrist 3+ Views Lefton XR [...] mGy = . DAP = . Normal [facility] BOX TEST SENT OUTon 12-20 BOX TEST SENT OUT [facility] Comment on above: See Scanned Report. GROUP B STREP SENT TO [facility] [employer] e ALL CBC WITH AUTO DIFFon Erythrocyte distribution width (RBC) [Ratio] 14.2 % 11.0 - 15.0 % [facility] Hematocrit (Bld) [Volume fraction] 21.7 % Critically low 36.0 - 48.0 % [facility] [employer] e Comment on above: RESULTS CALLED TO FB C Ewa Saavedra, RN Hemoglobin (Bld) [Mass/Vol] 7.0 g/dL Low 12.0 - 16.0 g/dL [facility] Interpretation and review of laboratory results [facility] (RBC) [Entitic mass] 31.1 pg 26.7 - 34.0 pg [facility] MCHC (RBC) [Mass/Vol] 32.3 g/dL 29.9 - 35.2 g/dL [facility] MCV (RBC) [Entitic vol] 96.4 fL 81.0 - 99.0 fL [facility] Platelet mean volume (Bld) [Entitic vol] 10.1 fL 9.5 - 13.5 fL [facility] TBH PLT 193 [facility] TB[facility] RBC 2.25 Low [facility] TBH WBC 9.6 [facility] MAGNESIUMon 01-13-2024 Magnesium [Mass/Vol] 4.5 mg/dL Critically high 1.8 - 2.4 mg/dL [facility] Comment on above: RESULTS CALLED TO Vikas EstradaRN [facility] CMP (CMP) (FOR REMOTE FH C USE)on 01-13-2024 Albumin [Mass/Vol] 1.9 g/dL Low 3.4 - 5.0 g/dL [facility] ALBUMIN GLOBULIN RATIO 0.5 [facility] ALP [Catalytic activity/Vol] 114 U/L 46 - 116 U/L [facility] ALT [Catalytic activity/Vol] 20 U/L 14 - 59 U/L [facility] Anion gap [Moles/Vol] 15.3 mmol/L [facility] AST [Catalytic activity/Vol] 20 U/L 15 - 37 U/L [facility] Bilirubin [Mass/Vol] 0.3 mg/dL 0.2 - 1.0 mg/dL [facility] Calcium [Mass/Vol] 8.2 mg/dL Low 8.5 - 10. 1 mg/dL [facility] Chloride [Moles/Vol] 104 mmol/L 98 - 107 mmol/L [facility] CO2 [Moles/Vol] 23.1 mmol/L 21.0 - 32.0 mmol/L [facility] Creatinine [Mass/Vol] 0.76 mg/dL 0.55 - 1.02 mg/dL [facility] GFR/1.73 sq M.predicted CKD-EPI (S/P/Bld) [Vol rate/Area] >60 60 - PINF [facility] Globulin (S) [Mass/Vol] 3.6 g/dL [facility] Glucose [Mass/Vol] 100 mg/dL 74 - 106 mg/dL NO [facility] Potassium [Moles/Vol] 3.4 mmol/L Low 3.5 - 5.1 mmol/L [facility] Protein [Mass/Vol] 5.5 g/dL Low 6.4 - 8.2 g/dL NO [facility] Sodium [Moles/Vol] 139 mmol/L 136 - 145 mmol/L [facility] TBH EGFR-NON AF [place]URKS AND [place] >60 60 - PINF [facility] Urea nitrogen [Mass/Vol] 8.0 mg/dL 7.0 - 18.0 mg/dL [facility] Urea nitrogen/Creatinine [Mass ratio] 10.5 mg/mg [facility] No Panel Informationon 01-12 Interpretation and review of laboratory results [facility] AMYLASEon 01-09-2024 Amylase [Catalytic activity/Vol] 27 U/L 25 - 115 U/L [facility] CMP (CMP) (FOR REMOTE FH C USE)on 01-09-2024 Albumin [Mass/Vol] 1.8 g/dL Low 3.4 - 5.0 g/dL NO [facility] ALBUMIN GLOBULIN RATIO 0.5 [facility] ALP [Catalytic activity/Vol] 123 U/L High 46 - 116 U/L [facility] ALT [Catalytic activity/Vol] 14 U/L 14 - 59 U/L [facility] Anion gap [Moles/Vol] 12.8 mmol/L [facility] AST [Catalytic activity/Vol] 21 U/L 15 - 37 U/L [facility] Bilirubin [Mass/Vol] 0.2 mg/dL 0.2 - 1.0 mg/dL [facility] Calcium [Mass/Vol] 9.1 mg/dL 8.5 - 10. 1 mg/dL [facility] Chloride [Moles/Vol] 104 mmol/L 98 - 107 mmol/L [facility] CO2 [Moles/Vol] 25.1 mmol/L 21.0 - 32.0 mmol/L [facility] Creatinine [Mass/Vol] 0.71 mg/dL 0.55 - 1.02 mg/dL [facility] GFR/1.73 sq M.predicted CKD-EPI (S/P/Bld) [Vol rate/Area] >60 60 - PINF [facility] Globulin (S) [Mass/Vol] 3.5 g/dL [facility] Interpretation and review of laboratory results Abnormal [facility] re Potassium [Moles/Vol] 3.9 mmol/L 3.5 - 5.1 mmol/L [facility] Protein [Mass/Vol] 5.3 g/dL Low 6.4 - 8.2 g/dL [facility] Sodium [Moles/Vol] 138 mmol/L 136 - 145 mmol/L [facility] TB EGFR-NON AF [place]UR[place] AND [place] >60 60 - PINF [facility] Urea nitrogen [Mass/Vol] 11.0 mg/dL 7.0 - 18.0 mg/dL [facility] Urea nitrogen/Creatinine [Mass ratio] 15.5 mg/mg [facility] LIPASEon 01-09-2024 Lipase [Catalytic activity/Vol] 39.0 U/L 16.0 - 77.0 U/L [facility] Laboratory - Chemistry and C hemistry - challengeon 01-09-2024 Glucose [Mass/Vol] 80 mg/dL NINF - 95 mg/dL [facility] No Panel Informationon 01-08 [facility] e ALL CBC WITH AUTO DIFFon Erythrocyte distribution width (RBC) [Ratio] 13.3 % 11.0 - 15.0 % [facility] Hematocrit (Bld) [Volume fraction] 27.1 % Low 36.0 - 48.0 % [facility] e Hemoglobin (Bld) [Mass/Vol] 8.8 g/dL Low 12.0 - 16.0 g/dL [facility] MCH (RBC) [Entitic mass] 31.1 pg 26.7 - 34.0 pg [facility] MCHC (RBC) [Mass/Vol] 32.5 g/dL 29.9 - 35.2 g/dL [facility] MCV (RBC) [Entitic vol] 95.8 fL 81.0 - 99.0 fL [facility] Platelet mean volume (Bld) [Entitic vol] 11.2 fL 9.5 - 13.5 fL [facility] TBH PLT 168 [facility] RBC 2.83 Low [facility] TB[facility] WBC 15.6 High [facility] MHPT DIFFERENTIALon 01-08-20 24 Band form neutrophils/100 WBC (Bld) 4.0 % 0 - 5 % [facility] BAND NEUTROPHILS ABSOLUTE 0.6 High [facility] BASOPHILS ABS MANUAL 0.00 [facility] BASOPHILS PERCENT MANUAL 0.0 % Low 0.2 - 2.0 % [facility] Eosinophils (Bld) [#/Vol] 0.00 10*3/uL [facility] EOSINOPHILS PERCENT MANUAL 0.0 % Low 0.9 - 7.0 % [facility] Lymphocytes (Bld) [#/Vol] 1.56 10*3/uL [facility] LYMPHOCYTES PERCENT MANUAL 10.0 % Low 20.5 - 60.0 % [facility] Monocytes (Bld) [#/Vol] 0.78 10*3/uL [facility] MONOCYTES PERCENT MANUAL 5.0 % 1.7 - 12.0 % [facility] SEGMENTED NEUT ABSOLUTE MANUAL 12.63 High [facility] SEGMENTED NEUTROPHILS % MANUAL 81.0 High 43.0 - 75.0 [facility] No Panel Informationon 01-07 Interpretation and review of laboratory results Abnormal [facility] PROTEIN CREAT RATIOon 2023 RANDOM URINE PROTEIN 170 mg/L High <120 [facility] Comment on above: Performed By: #### U PCR #### [facility] ([id number]) [address] [facility] [address] [place] [address] U/PRO/KELP GATHERER RATIO CALC 0.17 Normal <0.2 [facility] Comment on above: Result Comment: Neph rotic Syndrome is associated with ratios >3.5 Performed By: #### U PCR #### [facility] ([id number]) [address] [facility] [place] [address] URINE CREATININE,RDM 98.06 mg/dL Normal [facility] Comment on above: Performed By: #### U PCR #### [facility] ([id number]) [address] [facility], [address] [place] [address] COMPLETE BLOOD COUNTon 09-16 Erythrocyte distribution width (RBC) [Ratio] 13.0 % Normal 11.5-15.0 [facility] Comment on above: Performed By: #### C BC, CMP, FEPR, 2532-0, 3084-1, TSHR, 2276- 4, 2284-8, 2132-01 #### [facility] ([id number]) [address] [place] [address] Hematocrit (Bld) [Volume fraction] 34.6 % Low 35-47 [facility] Comment on above: Performed By: #### C BC, CMP, FEPR, 2532-0, 3084-1, TSHR, 2276- 4, 2284-8, 2132-01 #### [facility] ([id number]) [address] [place] [address] Hemoglobin (Bld) [Mass/Vol] 11.9 g/dL Normal 11.7-15.5 [facility] Comment on above: Performed By: #### C BC, CMP, FEPR, 2532-0, 3084-1, TSHR, 2276- 4, 2284-8, 2132-01 #### [facility] ([id number]) [address], [address] [place] [address] MCH (RBC) [Entitic mass] 30.9 pg Normal 27-34 [facility] Comment on above: Performed By: #### C BC, CMP, FEPR, 2532-0, 3084-1, TSHR, 2276- 4, 2284-8, 2132-01 #### [facility] ([id number]) [address], [address] [place] [address] MCHC (RBC) [Mass/Vol] 34.4 g/dL Normal 32-36 [facility] Comment on above: Performed By: #### C BC, CMP, FEPR, 2532-0, 3084-1, TSHR, 2276- 4, 2284-8, 2132-01 #### [facility] ([id number]) [address], [address] [place] [address] MCV (RBC) [Entitic vol] 90 fL Normal 80-100 [facility] Comment on above: Performed By: #### C BC, CMP, FEPR, 2532-0, 3084-1, TSHR, 2276- 4, 4-8, 2132-01 #### [facility] ([id number]) [address], [address] [place] [address] Platelet mean volume (Bld) [Entitic vol] 9.4 fL Normal 7-12 [facility] Comment on above: Performed By: #### C BC, CMP, FEPR, 2532-0, 3084-1, TSHR, 2276- 4, 2283-8, 2132-01 #### [facility] ([id number]) [address], [address] [place] [address] Platelets (Bld) [#/Vol] 181 10*3/uL Normal 150-450 [facility] Comment on above: Performed By: #### C BC, CMP, FEPR, 2532-0, 3084-1, TSHR, 2276- 4, 2283-8, 2132-01 #### [facility] ([id number]) [address], [address] [place] [address] RBC COUNT 3.85 X10E12/L Normal 3.80-5.20 [facility] Comment on above: Performed By: #### C BC, CMP, FEPR, 2532-0, 3084-1, TSHR, 2276- 4, 2283-8, 2132-01 #### [facility] ([id number]) [address], [address] [place] [address] WBC (Bld) [#/Vol] 11.3 10*3/uL High 4.0-11.0 [facility] Comment on above: Performed By: #### C BC, CMP, FEPR, 2532-0, 3084-1, TSHR, 2276- 4, 2284-8, 2132-01 #### [facility] ([id number]) [address], [address] [place] [address] COMPREHENSIVE METABOLIC PANE Charles 09-17-2023 Albumin [Mass/Vol] 3.4 g/dL Normal 3.2-5.3 [facility] Comment on above: Performed By: #### C BC, CMP, FEPR, 2532-0, 3084-1, TSHR, 2276- 4, 2284-8, 2132-01 #### [facility] ([id number]) [address], [address] [place] [address] ALP [Catalytic activity/Vol] 71 U/L Normal 39-130 [facility] Comment on above: Performed By: #### C BC, CMP, FEPR, 2532-0, 3084-1, TSHR, 2276- 4, 2284-8, 2132-01 #### [facility] ([id number]) [address], [address] [place] [address] ALT [Catalytic activity/Vol] 11 U/L Normal 0-31 [facility] Comment on above: Performed By: #### C BC, CMP, FEPR, 2532-0, 3084-1, TSHR, 2276- 4, 2284-8, 2132-01 #### [facility] ([id number]) [address], [address] [place] [address] Anion gap [Moles/Vol] 11 mmol/L Normal 5-15 [facility] Comment on above: Performed By: #### C BC, CMP, FEPR, 2532-0, 3084-1, TSHR, 2276- 4, 2284-8, 9 #### [facility] ([id number]) [address], [address] [place] [address] AST [Catalytic activity/Vol] 13 U/L Normal 0-41 [facility] Comment on above: Performed By: #### C BC, CMP, FEPR, 2532-0, 3084-1, TSHR, 2276- 4, 2284-8, 2132-01 #### [facility] ([id number]) [address], [address] [place] [address] Bilirubin [Mass/Vol] 0.3 mg/dL Normal 0.3-1.2 [facility] Comment on above: Performed By: #### C BC, CMP, FEPR, 2532-0, 3084-1, TSHR, 2276- 4, 2284-8, 2132-01 #### [facility] ([id number]) [address], [address] [place] [address] Calcium [Mass/Vol] 9.0 mg/dL Normal 8.5-10.5 [facility] Comment on above: Performed By: #### C BC, CMP, FEPR, 2532-0, 3084-1, TSHR, 2276- 4, 2284-8, 2132-01 #### [facility] ([id number]) [address], [address] [place] [address] Chloride [Moles/Vol] 104 mmol/L Normal 98-109 [facility] Comment on above: Performed By: #### C BC, CMP, FEPR, 2532-0, 3084-1, TSHR, 2276- 4, 2284-8, 2132-01 #### [facility] ([id number]) [address], [address] [place] [address] CO2 [Moles/Vol] 24 mmol/L Normal 22-32 [facility] Comment on above: Performed By: #### C BC, CMP, FEPR, 2532-0, 3084-1, TSHR, 2276- 4, 2284-8, 2132-01 #### [facility] ([id number]) [address], [address] [place] [address] Creatinine [Mass/Vol] 0.46 mg/dL Normal 0.40-1.00 [facility] Comment on above: Result Comment: METH OD TRACEABLE TO IDMS STANDARD Performed By: #### C BC, CMP, FEPR, 2532-0, 3084-1, TSHR, 2276-4, 2284-8, 2132-01 #### [facility] ([id number]) [address], [address] [place] [address] eGFR (CKD-EPI) NON-RACE DEPENDENT >90 Normal >59 [facility] Comment on above: Result Comment: Reported eGFR is based on the CKD-EPI 2020 equation that does not use a race coefficient. Performed By: #### C BC, CMP, FEPR, 2532-0, 3084-1, TSHR, 2276-4, 2284-8, 2132-01 #### [facility] ([id number]) [address], [address] [place] [address] Glucose [Mass/Vol] 78 mg/dL Normal 65-99 [facility] Comment on above: Performed By: #### C BC, CMP, FEPR, 2532-0, 3084-1, TSHR, 2276- 4, 2284-8, 2132-01 #### [facility] ([id number]) [address], [address] [place] [address] Potassium [Moles/Vol] 4.0 mmol/L Normal 3.5-5.0 [facility] Comment on above: Performed By: #### C BC, CMP, FEPR, 2532-0, 3084-1, TSHR, 2276- 4, 2284-8, 2132-01 #### [facility] ([id number]) [address], [address] [place] [address] Protein [Mass/Vol] 6.5 g/dL Normal 6.0-8.0 [facility] Comment on above: Performed By: #### C BC, CMP, FEPR, 2532-0, 3084-1, TSHR, 2276- 4, 2284-8, 2132-01 #### [facility] ([id number]) [address], [address] [place] [address] Sodium [Moles/Vol] 139 mmol/L Normal 134-146 [facility] Comment on above: Performed By: #### C BC, CMP, FEPR, 2532-0, 3084-1, TSHR, 2276- 4, 2284-8, 2132-01 #### [facility] ([id number]) [address], [address] [place] [address] Urea nitrogen [Mass/Vol] 8 mg/dL Normal 5-23 [facility] Comment on above: Performed By: #### C BC, CMP, FEPR, 2532-0, 3084-1, TSHR, 2276- 4, 2284-8, 2132-01 #### [facility] ([id number]) [address], [address] [place] [address] FERRITINon 09-17-2023 Ferritin [Mass/Vol] 11 ng/mL Normal 11-307 [facility] Comment on above: Performed By: #### C BC, CMP, FEPR, 2532-0, 3084-1, TSHR, 2276- 4, 2284-8, 2132-01 #### [facility] ([id number]) [address], [address] [place] [address] Folate [Mass/Vol]on 09-17-19 24 FOLIC ACID 18.1 ng/mL Normal >5.8 [facility] Comment on above: Result Comment: NEW REFERENCE RANGE Performed By: #### C BC, CMP, FEPR, 2532-0, 3084-1, TSHR, 2276-4, 2284-8, 9 #### [facility] ([id number]) [address], [address] [place] [address] IRON PROFILEon 09-17-2023 Iron [Mass/Vol] 52 ug/dL Normal 50-170 [facility] Comment on above: Performed By: #### C BC, CMP, FEPR, 2532-0, 3084-1, TSHR, 2276- 4, 2284-8, 2132-01 #### [facility] ([id number]) [address], [address] [place] [address] IRON BINDING 580 ug/dL High 250-425 [facility] Comment on above: Performed By: #### C BC, CMP, FEPR, 2532-0, 3084-1, TSHR, 2276- 4, 2284-8, 2132-01 #### [facility] ([id number]) [address], [address] [address] IRON SATURATION 9 % SATURATION Low 15-50 [facility] Comment on above: Performed By: #### C BC, CMP, FEPR, 2532-0, 3084-1, TSHR, 2276- 4, 2284-8, 2132-01 #### [facility] ([id number]) [address], [address] [address] LDH [Catalytic activity/Vol] on 09-17-2023 LDH 124 U/L Normal 100-235 [facility] Comment on above: Performed By: #### C BC, CMP, FEPR, 2532-0, 3084-1, TSHR, 2276- 4, 2284-8, 2132-01 #### [facility] ([id number]) [address], [facility] [address] [place] [address] Natriuretic peptide B [Mass/ Vol]on 09-17-2023 Natriuretic peptide B (Bld) [Mass/Vol] 66 pg/mL Normal <100.0 [facility] Comment on above: Performed By: #### C BC, CMP, FEPR, 2532-0, 3084-1, TSHR, 2276- 4, 4-8, 2132-01 #### [facility] ([id number]) [address], [address] [place] [address] TSH WITH REFLEXon 09-17-2023 TSH 0.78 uIU/mL Normal 0.49-4.67 [facility] Comment on above: Performed By: #### C BC, CMP, FEPR, 2532-0, 4-1, TSHR, 2275- 4, 2283-8, 2132-01 #### [facility] ([id number]) [address], [address] [place] [address] Thiamine (Bld) [Mass/Vol]on 09-17-2023 THIAMIN VITAMIN B1 See Below Normal [facility] Comment on above: Result Comment: [...] and its performance characteristics determined by [facility]'s Jordan [facility]aint [facility] Pathology and Laboratory Medicine [place] [facility] It has not been cleared or approved by the FDA. -[facility] is regulated under CLIA as qualified to perform high-complexity testing. This test is used for clinical purposes. It should not be regarded as investigational or for research. Test Performed By: [facility] [employer] [address] [place] [address] Tailor Apprentice: Colin Cisneros III, M.D. CLIA #[id number] Performed By: #### C BC, CMP, FEPR, 2532-0, 3084-1, TSHR, 6-4, 2284-8, 2-9 #### [facility] ([id number]) [address] [facility], [address] [place] [address] URIC ACIDon 09-17-2023 Urate [Mass/Vol] 5.1 mg/dL Normal 2.6-7.2 [facility] Comment on above: Performed By: #### C BC, CMP, FEPR, 2532-0, 3084-1, TSHR, 2276- 4, 2284-8, 2131-9 #### [facility] ([id number]) [address] [facility], [address] [place] [address] VITAMIN B12on 09-17-2023 Cobalamin (Vitamin B12) [Mass/Vol] 185 pg/mL Normal 180-914 [facility] Comment on above: Performed By: #### C BC, CMP, FEPR, 2532-0, 3084-1, TSHR, 2276- 4, 2284-8, 2131-9 #### [facility] ([id number]) [address] [facility], [address] [place] [address] Cytology Cervical or vaginal smear or scraping studyon 08-15-2023 [facility] e HCG ( test) IA.rapi d Ql (U)Ordered By: Shun Hill on 03-15-2023 HCG ( test) Ql (U) Negative [facility] SARS-CoV-2 (COVID-19) RNA NA A+probe Ql (Resp)on 01-16-2023 SARS-CoV-2 (COVID-19) RNA GEORGE+probe Ql (Unsp spec) Positive [facility] Other COVID Quick Testingon 2022 Result Negative [facility] Other COVID Quick Testingon 2022 Result Negative [facility] Other COVID Quick Testingon 2022 Result Negative [facility] Other COVID Quick Testingon 2021 Result Negative [facility] Other Vital Signs Date Time Vital Sign Value Performing Clinician Facility 08-18-2024 14:21-0400 Body weight 111.25 kg Irma VICENTE Work Phone: [facility] 08-18-2024 14:21-0400 Diastolic blood pressure 64 mm[Hg] Irma VICENTE Work Phone: [facility] 08-18-2024 14:21-0400 Systolic blood pressure 110 mm[Hg] Irma Yi PA Work Phone: [facility] 06-25-2024 09:55-0500 Body height 170.18 cm Irma Burt DO Work Phone: [facility] 06-25-2024 09:55-0500 Body mass index (BMI) [Ratio] 37 kg/m2 Irma Burt DO Work Phone: [facility] 06-25-2024 09:55-0500 Body weight 107.5 kg Irma Burt DO Work Phone: [facility] 02-18-2024 11:53-0400 Body weight 105.23 kg Irma VICENTE Work Phone: [facility] 02-18-2024 11:53-0400 Diastolic blood pressure 74 mm[Hg] Irma VICENTE Work Phone: [facility] 02-18-2024 11:53-0400 Systolic blood pressure 110 mm[Hg] Irma Yi PA Work Phone: [facility] 01-22-2024 10:09-0400 Body weight 108.41 kg Sagar Anai DO Work Phone: [facility] 01-22-2024 10:09-0400 Diastolic blood pressure 78 mm[Hg] Sagar Anai DO Work Phone: [facility] 01-22-2024 10:09-0400 Systolic blood pressure 124 mm[Hg] Sagar Anai DO Work Phone: [facility] 06-12-2023 13:00-0500 Body height 170.18 cm Shun Hill Other [facility] Other 06-12-2023 13:00-0500 Body mass index (BMI) [Ratio] 35.24 kg/m2 Shun Hill Other [facility] Other 06-12-2023 13:00-0500 Body weight 102.06 kg Shun Hill Other [facility] Other 03-15-2023 12:29-0400 Diastolic blood pressure 89 mm[Hg] DO Irma Burt Work Phone: [facility] 03-15-2023 12:29-0400 Heart rate 70 /min DO Irma Burt Work Phone: [facility] 03-15-2023 12:29-0400 Respiratory rate 16 /min DO Irma Burt Work Phone: [facility] 03-15-2023 12:29-0400 SaO2% (BldA) [Mass fraction] 100 % DO Irma Burt Work Phone: [facility] 03-15-2023 12:29-0400 Systolic blood pressure 132 mm[Hg] DO Irma Burt Work Phone: [facility] 03-15-2023 08:54-0400 Body height 170.18 cm DO Irma Burt Work Phone: [facility] 03-15-2023 08:54-0400 Body weight 90.71 kg DO Irma Burt Work Phone: [facility] 02-08-2023 14:45-0400 Body height 170.18 cm Shun Hill Other [facility] Other 02-08-2023 14:45-0400 Body mass index (BMI) [Ratio] 34.92 kg/m2 Shun Hill Other [facility] Other 02-08-2023 14:45-0400 Body weight 101.15 kg Shun Hill Other [facility] Other 02-08-2023 14:45-0400 Diastolic blood pressure 80 mm[Hg] Shun Hill Other [facility] Other 02-08-2023 14:45-0400 Systolic blood pressure 131 mm[Hg] Shun Hill Other [facility] Other 01-16-2023 10:35-0400 Body height 170.18 cm Aydee Hearn Other [facility] Other 01-16-2023 10:35-0400 Body mass index (BMI) [Ratio] 35.2 kg/m2 Aydee Hearn Other [facility] Other 01-16-2023 10:35-0400 Body temperature 98.3 [degF] Aydee Vaughnmond Other [facility] Other 01-16-2023 10:35-0400 Body weight 101.97 kg Aydee Vaughnmond Other [facility] Other 01-16-2023 10:35-0400 Diastolic blood pressure 66 mm[Hg] Aydee Nadiya Other [facility] Other 01-16-2023 10:35-0400 Respiratory rate 18 /min Aydee Vaughnmond Other [facility] Other 01-16-2023 10:35-0400 SaO2% (BldA) [Mass fraction] 98 % Aydee Nadiya Other [facility] Other 01-16-2023 10:35-0400 Systolic blood pressure 105 mm[Hg] Aydee Nadiya Other [facility] Other 09-23-2022 10:45-0400 Body height 170.18 cm Aydee Nadiya Other [facility] Other 09-23-2022 10:45-0400 Body mass index (BMI) [Ratio] 35.13 kg/m2 Aydee Nadiya Other [facility] Other 09-23-2022 10:45-0400 Body temperature 99.2 [degF] Aydee Nadiya Other [facility] Other 09-23-2022 10:45-0400 Body weight 101.74 kg Aydee Nadiya Other [facility] Other 09-23-2022 10:45-0400 Diastolic blood pressure 80 mm[Hg] Aydee Nadiya Other [facility] Other 09-23-2022 10:45-0400 Respiratory rate 18 /min Aydee Nadiya Other [facility] Other 09-23-2022 10:45-0400 SaO2% (BldA) [Mass fraction] 98 % Aydee Nadiya Other [facility] Other 09-23-2022 10:45-0400 Systolic blood pressure 125 mm[Hg] Aydee Nadiya Other [facility] Other 09-04-2022 11:20-0400 Body height 170.18 cm Aydee Hearn Other [facility] Other 09-04-2022 11:20-0400 Body mass index (BMI) [Ratio] 31.32 kg/m2 Aydee Hearn Other [facility] Other 09-04-2022 11:20-0400 Body temperature 97.8 [degF] Aydee Hearn Other [facility] Other 09-04-2022 11:20-0400 Body weight 90.72 kg Aydee Hearn Other [facility] Other 09-04-2022 11:20-0400 Respiratory rate 18 /min Aydee Hearn Other [facility] Other 09-04-2022 11:20-0400 SaO2% (BldA) [Mass fraction] 99 % Aydee Hearn Other [facility] Other Encounters Encounter Date Encounter Type Care Provider Facility Start: 08-18-2024 End: 08-18-2024 Bamboo flowsheet Irma VICENTE Work Phone: [facility] Start: 08-18-2024 End: 08-18-2024 Bamboo flowsheet Irma VICENTE Work Phone: [facility] Start: 08-18-2024 End: 08-18-2024 Patient encounter procedure Irma VICENTE Work Phone: [facility] Start: 08-18-2024 End: 08-18-2024 Periodic preventive med est patient 18-39 yrs Irma VICENTE Work Phone: [facility] Comment on above: Well woman exam with routine gynecological exam Start: 07-02-2024 End: 07-02-2024 Patient encounter procedure Irma Burt DO Work Phone: [facility] Work Phone: Start: 07-02-2024 End: 07-02-2024 ambulatory Irma Burt DO Work Phone: [facility] Work Phone: Start: 06-25-2024 End: 06-25-2024 Patient encounter procedure Irma Burt DO Work Phone: [facility] Work Phone: Start: 04-14-2024 End: 04-14-2024 ambulatory Irma Burt Facility:[facility] Start: 04-14-2024 End: 04-14-2024 Patient encounter procedure Irma Burt [facility] Start: 02-18-2024 End: 02-18-2024 ambulatory IRMA YI Not Available Start: 02-18-2024 End: 02-18-2024 care [...] Not Available Start: 12-24-2023 End: 12-24-2023 ambulatory GREGORIOJAY PÉREZ [facility] Start: 12-19-2023 End: 12-19-2023 ambulatory IRMA YI Not Available Start: 12-06-2023 End: 12-06-2023 ambulatory IRMA KD Not Available Start: 11-30-2023 End: 11-30-2023 ambulatory SAGAR R ANAI [facility] Start: 11-21-2023 End: 11-21-2023 ambulatory SAGAR ANAI Not Available Start: 11-14-2023 End: 11-14-2023 ambulatory DILSHAD FRAGA [facility] Start: 11-07-2023 End: 11-07-2023 ambulatory SAGAR ANAI Not Available Start: 11-07-2023 End: 11-07-2023 ambulatory ERA MCMANUS [facility] Start: 10-22-2023 End: 10-26-2023 ambulatory KAITLYN OBRIEN [facility] Start: 10-22-2023 End: 10-22-2023 ambulatory SAGAR R ANAI [facility] Start: 10-09-2023 End: 10-09-2023 ambulatory IRMA YI Not Available Start: 10-01-2023 End: 10-01-2023 ambulatory [facility] Start: 09-20-2023 End: 09-21-2023 ambulatory KAITLYN [facility] Start: 09-18-2023 End: 09-18-2023 ambulatory SAGAR ANAI Not Available Start: 09-17-2023 End: 09-17-2023 ambulatory SAGAR R ANAI [facility] Start: 09-17-2023 End: 09-17-2023 ambulatory KAITLYN [facility] Start: 08-31-2023 End: 09-04-2023 ambulatory FROYLAN L RACHEL [facility] Start: 08-15-2023 End: 08-15-2023 ambulatory IRMA YI Not Available Start: 07-18-2023 End: 07-18-2023 ambulatory SAGAR ANAI Not Available Start: 06-20-2023 End: 06-20-2023 ambulatory Shun Hill Other [facility] Other Start: 06-20-2023 Telephone encounter Shun Moncada ck [facility] Start: 06-19-2023 End: 06-19-2023 ambulatory SAGAR ANAI Not Available Start: 06-12-2023 End: 06-12-2023 ambulatory Shun Liz Other [facility] Other Start: 06-12-2023 Office outpatient vi sit 15 minutes Shun Hill [facility] Start: 05-01-2023 End: 05-01-2023 ambulatory DO Irma Burt Work Phone: [facility] Work Phone: Start: 05-01-2023 End: 05-01-2023 Patient encounter procedure DO Irma Taverase Work Phone: [facility] Work Phone: Start: 04-10-2023 End: 04-10-2023 ambulatory DO Irma Burt Work Phone: [facility] Work Phone: Start: 04-10-2023 End: 04-10-2023 Patient encounter procedure DO Irma Burt Work Phone: [facility] [place] Work Phone: Start: 04-06-2023 End: 04-06-2023 ambulatory Shun Liz Other [facility] Other Start: 04-06-2023 Telephone encounter Shun infante [facility] Start: 03-20-2023 End: 03-20-2023 ambulatory Shun Hill Other [facility] Other Start: 03-20-2023 Telephone encounter Shun infante [facility] Start: 03-19-2023 End: 03-19-2023 ambulatory Shun Hill Other [facility] Other Start: 03-19-2023 Telephone encounter Shun infante [facility] Start: 03-15-2023 End: 03-15-2023 Admission to same day surgery center DO Irma Burt Work Phone: [facility] Work Phone: Start: 03-15-2023 End: 03-15-2023 ambulatory DO Irma Burt Work Phone: [facility] Work Phone: Start: 02-26-2023 End: 02-26-2023 ambulatory Shun Hill Other [facility] Other Start: 02-26-2023 Telephone encounter Shun infante [facility] Start: 02-08-2023 End: 02-08-2023 ambulatory Shun Hill Other [facility] Other Start: 02-08-2023 Office outpatient ne w 45 minutes Shun Hill [facility] Start: 01-16-2023 End: 01-16-2023 ambulatory Aydee Nadiya Other [facility] Other Start: 01-16-2023 Office outpatient vi sit 15 minutes Aydee Nadiya [facility] Start: 09-23-2022 End: 09-23-2022 ambulatory Aydee Nadiya Other [facility] Other Start: 09-23-2022 Office outpatient vi sit 15 minutes Aydee Nadiya [facility] Start: 09-04-2022 End: 09-04-2022 ambulatory Aydee Nadiya Other [facility] Other Start: 09-04-2022 Nursing evaluation o f patient and report Aydee Nadiya [facility] Start: 07-12-2022 End: 07-12-2022 ambulatory Perla Márquez Other [facility] Other Start: 07-12-2022 Office outpatient vi sit 5 minutes Perla Yulisa [facility] Start: 07-07-2022 End: 07-07-2022 ambulatory Aydee Hearn Other [facility] Other Start: 07-07-2022 Encounter for other preprocedural examination Aydee Hearn [facility] Start: 07-07-2022 Nursing evaluation o f patient and report Aydee Hearn [facility] Start: 02-03-2022 End: 02-03-2022 ambulatory Maria Guadalupe Powers Other [facility] Other Start: 02-03-2022 Office outpatient vi sit 5 minutes Maria Guadalupe Powers [facility] Procedures Date Procedure Procedure Detail Performing Clinician Start: 08-18-2024 Urine test visual color cmprsn meths Irma Yi PA Work Phone: Start: 07-02-2024 Ultrasound elastogra phy of liver Irma Burt DO Work Phone: Start: 01-13-2024 ALL CBC WITH AUTO DIFF Sagar Anai DO Work Phone: Start: 01-13-2024 ALL MAGNESIUM Sagar Allison io DO Work Phone: Start: 01-13-2024 [facility] CMP (CMP) (FOR R EMOTE [facility] USE) Sagar Anai DO Work Phone: Start: 01-09-2024 ALL AMYLASE Sagar Fazi o DO Work Phone: Start: 01-09-2024 [facility] CMP (CMP) (FOR R EMOTE [facility] USE) Sagar Anai DO Work Phone: Start: 01-09-2024 [facility] LIPASE Sagar Fazi o DO Work Phone: Start: 01-09-2024 [facility] GLUCOSE FASTING Co jesus Anai DO Work Phone: Start: 01-08-2024 ALL CBC WITH AUTO DIFF Sagar Anai DO Work Phone: Start: 01-08-2024 [facility] DIFFERENTIAL Sagar Ospina DO Work Phone: Start: 01-02-2024 [facility] BOX TEST SENT OUT C sebastian Ospina DO Work Phone: Start: 08-15-2023 Microscopic observat [...] Colonoscopy DO Irma Santa trevzaheer Work Phone: None (qualifier value) Irma morales Plan of Treatment Date Care Activity Detail Author Start: 08-14-2028 [facility] Start: 08-18-2024 End: 08-18-2024 Patient encounter procedure [facility] Comment on above: Arrived Start: 07-02-2024 End: 07-02-2024 [facility] Start: 07-02-2024 Comprehensive metabo lic 2000 panel - Serum or Plasma [facility] Start: 02-18-2024 End: 02-18-2024 ambulatory 02/18/2024 11:30 AM EDT Visit [facility] [address] [place] [address] Irma Yi PA [address] [place], [place] [id number] [facility] Start: 01-22-2024 End: 01-22-2024 Patient encounter procedure 01/22/2024 9:40 AM EDT Office Visit [facility] [address] [place] [address] Sagar Ospina, DO [address] [place] [address] [place] [address] [facility] Start: 01-20-2024 Influenza vaccination Influenza Vacc ine (#1) [facility] Start: 05-01-2023 [facility] [facility] Start: 03-15-2023 [facility] Start: 2015 Screening for malign ant neoplasm of cervix [facility] Start: 2006 Screening for malign ant neoplasm of cervix Pap Smear [facility] Albumin/Globulin ratio [facility] Anion gap measurement [facility] Basophils [#/volume] in Blood by Automated count [facility] Basophils/100 leukoc ytes in Blood by Automated count [facility] Cytology Cervical or vaginal smear or scraping study Pap Smear Pathology and Cytology Routine Well woman exam with routine gynecological exam Ordered: 08/18/2024 [facility] Work Phone: Comment on above: Ordered: 08/18/2024 Eosinophils/100 leukocytes in Blood by Automated count [facility] Erythrocyte distribu tion width [Ratio] by Automated count [facility] Erythrocytes [#/volu me] in Blood [facility] Globulin [Mass/volum e] in Serum [facility] Hematocrit [Volume Fraction] of Blood [facility] Hemoglobin [Mass/vol ume] in Blood [facility] Human papilloma viru s DNA [Presence] in Unspecified specimen by Probe with amplification HPV DNA probe, amplified Microbiology Routine Well woman exam with routine gynecological exam Ordered: 08/18/2024 [facility] Comment on above: Ordered: 08/18/2024 Leukocytes [#/volume ] corrected for nucleated erythrocytes in Blood by Automated coun [facility] Leukocytes [#/volume ] in Blood [facility] Lymphocytes [#/volum e] in Blood by Automated count [facility] Lymphocytes/100 leukocytes in Blood by Automated count [facility] MCH [Entitic mass] b y Automated count [facility] MCHC [Mass/volume] b y Automated count [facility] MCV [Entitic volume] by Automated count [facility] Monocytes [#/volume] in Blood by Automated count [facility] Monocytes/100 leukoc ytes in Blood by Automated count [facility] Neutrophils [#/volum e] in Blood by Automated count [facility] Neutrophils/100 leukocytes in Blood by Automated count [facility] Nucleated erythrocyt es [Presence] in Blood by Automated count [facility] Platelet mean volume [Entitic volume] in Blood by Automated count [facility] Platelets [#/volume] in Blood [facility] Immunizations Immunization Date Immunization Notes Care Provider Fa marianne 04-20-2024 influenza virus vaccine, unspecified formulation Irma VICENTE Work Phone: [facility] 04-09-2023 influenza virus vaccine, unspecified formulation Sagar Ospina DO Work Phone: [facility] 01-19-2016 tetanus toxoid, redu darya diphtheria toxoid, and acellular pertussis vaccine, adsorbed Irma Burt [facility] Comment on above: Reason for Medicatio n: Other (see comment) Payers Date Payer Category Payer Self-pay [id number] 2023 Private Health Insurance [id number] 2023 Private Health Insurance [id number] 2..840.1.791933.19 1985 Unknown [id number] 2.840.1.872724.3.579.2.1285 1985 Unknown [id number] 2.840.1.206948.3.579.2.1285 1985 Unknown [id number] 2..840.1.586781.3.579.2.1285 1985 Unknown [id number] 2.840.1.395407.3.579.2.1285 1985 Unknown [id number] 2.16.840.1.473580.3.579.2.128 1985 Unknown [id number] 2.16840.1.023332.3.579.2.1285 1985 Unknown [id number] 2.16.840.1.695235.3.579.2.1285 1985 Unknown [id number] 2.840.1.499526.3.579.2.1285 1985 Unknown [id number] 2.840.1.667662.3.579.2.1285 1985 Unknown [id number] 2.840.1.994586.3.579.2.1285 1985 Unknown [id number] 2.840.1.061758.3.579.2.1285 1985 Unknown [id number] 2.0.1.706498.3.579.2.1285 1985 Unknown [id number] 2.840.1.259367.3.579.2.1258 1985 Unknown [id number] 2.840.1.932172.3.579.2.1258 1985 Unknown [id number] 2.840.1.098356.3.579.2.1258 1985 Unknown [id number] 2840.1.262420.3.579.2.1258 1985 Unknown [id number] 2.840.1.973131.3.579.2.1258 1985 Unknown [id number] 2.840.1.031708.3.579.2.1258 1985 Unknown [id number] 2.840.1.081377.3.579.2.1258 1985 Unknown [id number] 2.840.1.403445.3.579.2.1258 1985 Unknown [id number] 2.16.840.1.366805.3.579.2.1259 1985 Unknown [id number] 2.16.840.1.130496.3.579.2.1259 1985 Unknown [id number] 2.16.840.1.631841.3.579.2.1259 1985 Unknown [id number] 2.16.840.1.575888.3.579.2.1259 1985 Unknown [id number] 2.16.840.1.316057.3.579.2.1259 1985 Unknown [id number] 2.16.840.1.314211.3.579.2.727 Medicaid [id number] Private Health Insurance [id number] 2.16.840.1.317766.19 Unknown [employer] [id number] Unknown [id number] 2.16.840.1.314636.3.579.2.531 Social History Date Type Detail Facility Sex Assigned At [facility] Start: 03-15-2023 End: 03-15-2023 Tobacco smoking status PAIS Ex-smoker (finding) [facility] Start: 1985 Sex Assigned At Female F [facility] Tobacco Current vaping o r e-cigarette use Smokeless Tobacco Use:. Vaping, Yes [facility] Tobacco smoking status No Smoking Status Entered [facility] Tobacco smoking status PAIS Tobacco smoking consumption unknown [facility] Start: 1985 Sex assigned at Not on file [facility] Start: 07-02-2024 Sex Female (finding) [facility] Medical Equipment Procedure Code Equipment Code Equipment Origin al Text Equipment Identifier Dates Start: 11-14-2023 End: 01-22-2024 Goals Date Patient Goal Desired Activity /State Clinical Notes 02-03-2022 to 08-18-2024 JULES Baldwin - 08/18/2024 2:00 PM EDT Note Date & Type Note Facility 08-18-2024 History of Presen t illness Narrative Reason for Appointment: Patient ID: Laura Alves is a 39 y.o. female who presents for Well Women Visit Patient presents today for Annual Exam. MEDICATIONS Current Outpatient Medications Medication Instructions Creon 05170-525464 units capsule delayed-release particles capsule TAKE 2 CAPSULES BY MOUTH 3 TIMES A DAY WITH MEALS AND/OR SNACKS Cyanocobalamin (B-12) [address] 1 TABLET (1,000 MCG TOTAL) UNDER THE TONGUE IN THE MORNING. ferrous sulfate 325 (65 Fe) MG tablet 1 tablet, Oral, Daily with breakfast sertraline (Zoloft) 50 MG tablet TAKE 1.5 [...] Exam Constitutional: Appearance: Normal appearance. She is well-developed and normal weight. Genitourinary: Vulva normal. HENT: Head: Normocephalic. Cardiovascular: Rate and Rhythm: Normal rate and regular rhythm. Pulses: Normal pulses. Pulmonary: Effort: Pulmonary effort is normal. Breath sounds: Normal breath sounds. Abdominal: General: Bowel sounds are normal. There is no distension. Palpations: Abdomen is soft. Tenderness: There is no abdominal tenderness. There is no guarding or rebound. Musculoskeletal: General: No swelling. Normal range of motion. Right lower leg: No edema. Left lower leg: No edema. Neurological: General: No focal deficit present. Mental Status: She is alert and oriented to person, place, and time. Skin: General: Skin is warm and dry. Psychiatric: Mood and Affect: Mood normal. Behavior: Behavior normal. Thought Content: Thought content normal. Judgment: Judgment normal. Vitals and nursing note reviewed. Exam conducted with a pop singer present. Vitals: There is no height or weight on file to calculate BMI. BP: 110/64 Patient's last menstrual period was 08/11/2024 (approximate). ASSESSMENT & PLAN ICD-10-CM 1. Well woman exam with routine gynecological exam Z01.419 Pap Smear HPV DNA probe, amplified POCT , urine manually resulted CANCELED: Pap Smear CANCELED: HPV DNA probe, amplified CANCELED: POCT , urine manually resulted Annual Exam: Patient presents today for an annual exam. Patient states she is doing well and has no complaints. Pap was obtained without difficulty. Orders Placed This Encounter Procedures HPV DNA probe, amplified POCT , urine manually resulted Follow Up: Patient is to return in one year for annual unless needed otherwise. Documented by Erica Stewart MA on behalf of: JULES Baldwin documented in this encounter [facility] 06-25-2024 Evaluation note Diagnosis Onset Date Resolution Diarrhea acute June 25, 2024 9:48am Fatty liver acute June 25, 2024 9:48am [facility] Work Phone: [phone]) 634-414009-30-2024 History of Present illness Narrative* JULES Baldwin [...] for a total of 4times daily. Creon 73088-743759 units capsule delayed-release particles capsule TAKE 2 [...] annual unless needed otherwise. [facility] [id number] History of Present illness Narrative* JULES Baldwin [...] for a total of 4times daily. Creon 49718-596371 units capsule delayed-release particles capsule TAKE 2 [...] weeks in 5 weeks. Documented by JULES Baldiwn on behalf of: Sagar Ospina DO documented in this encounterP[facility] [id number] NoteXR FOOT LT MIN 3 VWS Procedure: Left foot radiographs performed Number of views:3 History:Pain Comparison:None Findings: There is no fracture, dislocation, or destructive lesion. Soft tissue edema is seen overlying the dorsum of the foot Impression: Soft tissue edema. No acute fractures or dislocations are seen. Finalized by Mayelin Pinto DO on 08/31/2023 11:23 [facility] 06-12-2023 Evaluation note* Encounter Date Diagnosis [...] and minimal scaring, this will be reviewed [facility] Other 11-17-2023 Evaluation note* Encounter Date Diagnosis Assessment Notes Treatment Notes Treatment Clinical Notes Mar, Exocrine pancreatic insufficiency (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) [facility] Other 10-31-2023 Evaluation note* Encounter Date Diagnosis Assessment Notes Treatment Notes Treatment Clinical Notes Feb, Alternating constipation and diarrhea (ICD-10 - R19.8) Feb, Fecal urgency (ICD-10 - R15.2) [facility] Other 10-30-2023 Evaluation note* Encounter Date Diagnosis Assessment Notes Treatment Notes Treatment Clinical Notes Feb, Alternating constipation and diarrhea (ICD-10 - R19.8) [facility]* Encounter Date Diagnosis Assessment Notes Treatment Notes Treatment Clinical Notes Feb, Alternating constipation and diarrhea (ICD-10 - R19.8) [facility] Other 09-21-2023 Evaluation note* Encounter Date Diagnosis Assessment Notes Treatment Notes Treatment Clinical Notes Jan, Alternating constipation and diarrhea (ICD-10 - R19.8) WORSENING DIARRHEA AND CONSTIPATION OVER THE PAST YEAR. DOES HAVE SOME NOCTURNAL AWAKENINGS WITH THE DIARRHEA. CAN GO 4-5 DAYS WITH OUT A BOWEL MOVEMENT WHEN SHE IS CONSTIPATED. WILL ORDER IBS WORK UP WILL PROCEED WITH COLONOSCOPY [facility] Other 08-29-2023 Evaluation note* Encounter Date Diagnosis [...] no improvement in 2 to 3 days [facility] Other 2023 Evaluation note* Encounter Date Diagnosis [...] no improvement in 2 to 3 days [facility] Other 04-17-2023 Evaluation note* Encounter Date Diagnosis Assessment Notes Treatment Notes Treatment Clinical Notes Aug, Contact with and (suspected) exposure to other viral communicable diseases (ICD-10 - Z20.828) [facility] Other 02-22-2023 Evaluation note* Encounter Date Diagnosis Assessment Notes Treatment Notes Treatment Clinical Notes Jun, Contact with and (suspected) exposure to covid-19 (ICD-10 - Z20.822) [facility] Other 02-17-2023 Evaluation note* Encounter Date Diagnosis Assessment Notes Treatment Notes Treatment Clinical Notes Jun, Preoperative clearance (ICD-10 - Z01.818) [facility] Other 09-16-2022 Evaluation note* Encounter Date Diagnosis Assessment Notes Treatment Notes Treatment Clinical Notes Jan, Contact with and (suspected) exposure to covid-19 (ICD-10 - Z20.822) [facility] Other Evaluation + Plan note No data available for this section [facility] Evaluation note* Diagnosis Onset Date Resolution Status Diarrhea acute [facility] Work Phone: Evaluation noteNo InformationNort [employer] Other Evaluation note* Diagnosis Blood pressure check Screening for hypertension 2 weeks follow-up documented in this encounter [facility] HealthcareEvaluation note* Diagnosis 6 weeks follow-up- Primary documented in this encounter [facility] HealthcareEvaluation note* Diagnosis Well woman exam with routine gynecological exam Routine gynecological examination documented in this encounter [facility] HealthcareHistory general Narrative - Reported* Type Description Date Medical History ANXIETY AND DEPRESSION [facility] Other Hospital Discharge instructions Additional Instructions DISCHARGE [...] if you have any problems. -Office number [phone] Work Phone: Hospital Discharge instructions No data available for this section [facility] Progress note No data available for this section [facility] Reason for visit NarrativeRED EQUINOX, ANTIGEN PROCEDURE [facility]No[facility] [employer] Other Reiioj for visit NarrativeNEEDSNEGATIVE, RAPID COVID TEST FOR PROCEDUR[facility]oLat[facility] [employer] Other Chief Complaint and Reason for Visit [...] June 25, 2024 9 :48am Advance Directives Advance Directive Response Recorded Date/ [...] Pt delivered on 01/07/2024 Reason Comments Follow-up Reason Comments Well Women Visit Care Teams (unrecognized sec tion and content) Team Status: Active Member Role Status Dates Irma Burt DO Primary Care Provider Active Team Status: Inactive Member Role Status Dates Shun Hill MD Attending Provider Active Irma Burt DO Primary Care Provider Active Team Status: Inactive Member Role Status Dates Irma Burt DO Primary Care Provider Active Shun Hill MD Attending Provider Active Manager Truck Relationship Specialty Start Date End Date Irma Burt MD [address] [place] [address] PCP - General Family Medicine 06/19/23 Manager Truck Relationship Specialty Start Date End Date Irma Burt MD [address] [place] [address] PCP - General Family Medicine 06/19/23 Manager Truck Relationship Specialty Start Date End Date Irma Burt MD [address] [place] [address] PCP - [facility] Medicine 06/19/23 Manager Truck Relationship Specialty Start Date End Date Irma Burt MD [address] [place] [address] PCP - [facility] Medicine 06/19/23 Manager Truck Relationship Specialty Start Date End Date Irma Burt MD [address] [place] [address] PCP - [facility] Medicine 06/19/23 Team Status: Inactive Member Role Status Dates Irma Burt DO Primary Care Provider Active S tart: June 25, 2024 End: June 25, 2024 Heather Vasquez , DO Attending Provider Active St art: June 25, 2024 End: June 25, 2024 Team Status: Inactive Member Role Status Dates Irma Burt DO Primary Care Provider Active S tart: July 02, 2024 End: July 02, 2024 Heather Vasquez , DO Attending Provider Active St art: July 02, 2024 End: July 02, 2024 Manager Truck Relationship Specialty Start Date End Date Irma Burt MD [address] [place] [address] PCP - General Family Medicine 06/19/23 Manager Truck Relationship Specialty Start Date End Date Irma Burt MD [address] [place] [phone] PCP - General Family Medicine 06/19/23 INFORMATION SOURCE (unrecogn ized section and content) DATE CREATED AUTHOR 09/22/2023 [facility] DATE CREATED AUTHOR AUTHOR'S ORGANIZ ATION 12/25/2023 [facility] DATE CREATED AUTHOR AUTHOR'S ORGANIZ ATION 02/19/[address] [facility] dical Specialists [facility] DATE CREATED AUTHOR AUTHOR'S ORGANIZ ATION 04/21/2024 [facility] DATE CREATED AUTHOR AUTHOR'S ORGANIZ ATION 07/22/2024 [facility] ys[facility] Group Goals (unrecognized section and [...] BE BASED ON THE PRIMARY CLINICAL RECORDS. [facility] [employer] [facility]. provides no warranty or guarantee of the accuracy or completeness of information in this document.
== END 2024-08-18 20:28 | disposition home or self-care (01) ==
LOC: LAB 20:27
PROVIDERS: Visit Provider Physician Assistant
DX: Z01.419 Encounter for gynecological examination (general) (routine) without abnormal findings (principal)
CPT/HCPCS: 88175

== ENCOUNTER 2025-03-06 09:36 | Outpatient (OUT) | payer OTHER, SELFPAY ==
--- OUTSIDE RECORDS SUMMARY | 2025-03-06 09:41 | XMS_ITS | Encounter Summary ---
Author Organization [facility] Address [address] [place] [address] Care Team Providers Care Stick Roller Name Role Phone Irma Santizo DO Primary Care Provider [phone] Encounter Details Date Type Department Care Team (Late st Contact Info) Description 01/13/2024 Clinisync Result Encounter [facility] External Department Unsolicited Sagar Ospina DO [address] [place] [place], [place] [id number] Social History Tobacco Use Types Packs/Day Years Used Date Smoking Tobacco: Never Assessed Comments Yes Sex and Gender Information Value Date Recorded Sex Assigned at Not on file Legal Sex Female 9:54 AM EST Gender Identity Not on file Sexual Orientation Not on file documented as of this encounter Plan of Treatment Not on file documented as of this encounter Procedures Procedure Name Priority Date/Time Associated Diagnosis Comments CT HEAD WO IV CONTRAST 01/13/2024 10:12 AM EDT documented in this encounter Results * CT head wo IV contrast (01/13/2024 10:12 AM EDT) Anatomical Region Laterality Modality Head, Neck Computed Tomogra phy 01/13/2024 10:1 2 AM EDT Narrative 01/13/2024 10:14 AM EDT The [address] [address] [address] Scan Report Signed Patient: LAURA ALVES MR#: [id number] : 1985 Acct:[id number] Age/Sex: 38 / F ADM Date: 01/12/24 Loc: [facility] 252-[address]: Sagar Ospina D.O. Ordering Physician: Sagar Ospina D.O. Date of Service: 01/13/24 Procedure(s): CT stroke head/brain wo con Accession Number(s): [id number] cc: IRMA SANTIZO The [place] [address] Patient Name: LAURA ALVES MRN: [facility]:[id number] date: 1985 Sex: F Assigned Patient Location: [facility] Current Patient Location: [facility] Accession/Order Number: [id number] Exam Date: 01/13/2024 09:05 Report Date: 01/13/2024 10:12 At the request of: SAGAR OSPINA Procedure: CT stroke head/brain wo con HEAD CT WITHOUT CONTRAST: 01/13/2024 9:05 AM EDT Clinical Data: r/o stroke Comparison: No previous Unenhanced axial data from base to vertex. INTRA-AXIAL: No acute hemorrhage. No acute infarction is evident. EXTRA-AXIAL: No acute hemorrhage. No focal fluid collection. The pituitary is not enlarged. BRAIN VOLUME: Unremarkable for age. VENTRICLES: No hydrocephalus PARANASAL SINUSES: No air-fluid levels in the included aspects. MASTOIDS: Partial opacification, left greater than right. CALVARIUM: No acute finding. EXTRACALVARIAL: No acute findings CT/CT stroke head/brain wo con IMPRESSION: 1. No evidence of acute intracranial process on this unenhanced study as described. 2. Patchy partial opacification of the mastoids, left greater than right is nonspecific. All CT scans at this facility use dose modulation, iterative reconstruction, and/or weight based dosing when appropriate to reduce radiation dose to as low as reasonably achievable. Electronically authenticated by: NEGRITO GREENBERG Date: 01/13/2024 10:12 Dictated By: Negrito Greenberg M.D. Signed By: 01/13/24 1014 DD/ 1012 TD/TT: Counter Caser: Procedure Note Radiology, Radiologist, - 01/14/2024 [place] [address] CT Scan Report Signed Patient: LAURA ALVES KMR#: [id number] : 1985Acct:[id number] Age/Sex: 38 / FADM Date: 01/12/24 Loc: [facility] 252-[address]: Sagar Ospina D.O. Ordering Physician: Sagar Ospina D.O. Date of Service: 01/13/24 Procedure(s): CT stroke head/brain wo con Accession Number(s): [id number] cc: RIMA SANTIZO [place] [address] Patient Name: LAURA ALVES MRN: [id number] date: 1985 Sex: F Assigned Patient Location: [facility] Current Patient Location: [facility] Accession/Order Number: [id number] Exam Date: 01/13/2024 09:05 Report Date: 01/13/2024 10:12 At the request of: SAGAR OSPINA Procedure: CT stroke head/brain wo con HEAD CT WITHOUT CONTRAST: 01/13/2024 9:05 AM EDT Clinical Data: r/o stroke Comparison: No previous Unenhanced axial data from base to vertex. INTRA-AXIAL: No acute hemorrhage. No acute infarction is evident. EXTRA-AXIAL: No acute hemorrhage. No focal fluid collection. The pituitaryis not enlarged. BRAIN VOLUME: Unremarkable for age. VENTRICLES: No hydrocephalus PARANASAL SINUSES: No air-fluid levels in the included aspects. MASTOIDS: Partial opacification, left greater than right. CALVARIUM: No acute finding. EXTRACALVARIAL: No acute findings CT/CT stroke head/brain wo con IMPRESSION: 1. No evidence of acute intracranial process on this unenhanced study as described. 2. Patchy partial opacification of the mastoids, left greater than rightis nonspecific. All CT scans at this facility use dose modulation, iterativereconstruction, and/or weight based dosing when appropriate to reduce radiation dose to aslow as reasonably achievable. Electronically authenticated by: NEGRITO GREENBERG Date: 01/13/2024 10:12 Dictated By: Negrito Greenberg M.D. Signed By:01/13/24 1014 DD/ 1012 TD/TT: Counter Caser: us Sagar Ospina DO IMG CT PROCEDURES Final Result documented in this encounter Visit Diagnoses Not on filedocumented in this encounter Care Teams Stick Roller Relationship Specialty Start Date End Date Irma Santizo DO [address] [facility] [place] [address] PCP - General Family Medicine 06/19/23 documented as of this encounter
--- OUTSIDE RECORDS SUMMARY | 2025-03-06 09:41 | XMS_ITS | Encounter Summary ---
Author Organization [facility] Address [address] [place] [address] Care Team Providers Care Picture Hanger Name Role Phone Irma Santizo DO Primary Care Provider [phone] Encounter Details Date Type Department Care Team (Late st Contact Info) Description 06/19/2023 Clinisync Result Encounter [facility] External Department Unsolicited Sagar Ospina DO [address] [facility] [address] Sanam [address] [place], [place] [id number] Social History Tobacco Use Types Packs/Day Years [...] Procedure Name Priority Date/Time Associated Diagnosis Comments US OB TRANSVAGINAL 06/19/2023 4: 03 PM EST documented in this encounter Results * US OB TRANSVAGINAL (06/19/2023 4:03 PM EST) Anatomical Region Laterality Modality Other 06/19/2023 4:03 PM EST Narrative 06/19/2023 4:05 PM EST The [address] [address] Ultrasound Report Signed Patient: LAURA ALVES MR#: [id number] : 1985 Acct:[id number] Age/Sex: 38 / F ADM Date: 06/19/23 Loc: [facility] Attending Dr: Sagar Ospina D.O. Ordering Physician: Sagar Ospina D.O. Date of Service: 06/19/23 Procedure(s): US OB transvaginal Accession Number(s): [id number] cc: IRMA SANTIZO ; Sagar Ospina D.O. The [address] [address] Patient Name: LAURA ALVES MRN: [facility]:[id number] date: 1985 Sex: F Assigned Patient Location: [facility] Current Patient Location[facility] Accession/Order Number: [id number] Exam Date: 06/19/2023 15:12 Report Date: 06/19/2023 16:03 At the request of: SAGAR OSPINA Procedure: US OB transvaginal EXAMINATION: US OB transvaginal HISTORY: MISSED MENSES COMPARISON: No relevant comparison available. FINDINGS: Gilbert intrauterine gestation Gestational sac: 1.7 cm, 6 weeks 1 day CRL: 1.53 cm, 8 weeks 0 days Yolk sac: 4.6 cm Heart rate: 174 bpm Cervix: Closed, 3.4 cm The uterus is normal, retroverted, retroflexed The right ovary is normal. The left ovary is not visualized Clinical age: 5 weeks 6 days Clinical IFEANYI: 02/13/2024 Ultrasound age: 8 weeks 0 days Ultrasound IFEANYI: 01/29/2024 US/US OB transvaginal IMPRESSION: Viable gilbert intrauterine gestation measuring 8 weeks 0 days Electronically authenticated by: MUSTAPHA COLES Date: 06/19/2023 16:03 Dictated By: Mustapha Coles M.D. Signed By: 06/19/23 1605 DD/ 1603 TD/TT: Physician Extender: Procedure Note Radiology, Radiologist, MD - 06/19/2023 [place] [address] Ultrasound Report Signed Patient: LAURA ALVES KMR#: [id number] : 1985Acct:[id number] Age/Sex: 38 / FADM Date: 06/19/23 Loc: [facility] Attending Dr: Sagar Ospina D.O. Ordering Physician: Sagar Ospina D.O. Date of Service: 06/19/23 Procedure(s): US OB transvaginal Accession Number(s): [id number] cc: IRMA SANTIZO ; Sagar Ospina D.O. [address] [address] Patient Name: LAURA ALVES MRN: [facility]:[id number] date: 1985 Sex: F Assigned Patient Location: [facility] Current Patient Location: [facility] Accession/Order Number: [id number] Exam Date: 06/19/2023 15:12 Report Date: 06/19/2023 16:03 At the request of: SAGAR OSPINA Procedure: US OB transvaginal EXAMINATION: US OB transvaginal HISTORY: MISSED MENSES COMPARISON: No relevant comparison available. FINDINGS: Gilbert intrauterine gestation Gestational sac: 1.7 cm, 6 weeks 1 day CRL: 1.53 cm, 8 weeks 0 days Yolk sac: 4.6 cm Heart rate: 174 bpm Cervix: Closed, 3.4 cm The uterus is normal, retroverted, retroflexed The right ovary is normal. The left ovary is not visualized Clinical age: 5 weeks 6 days Clinical IFEANYI: 02/13/2024 Ultrasound age: 8 weeks 0 days Ultrasound IFEANYI: 01/29/2024 US/US OB transvaginal IMPRESSION: Viable gilbert intrauterine gestation measuring 8 weeks 0 days Electronically authenticated by: MUSTAPHA COLES Date: 06/19/2023 16:03 Dictated By: Mustapha Coles M.D. Signed By:06/19/23 1605 DD/ 1603 TD/TT: Physician Extender: us Sagar Opsina DO [facility] Final Result documented in this encounter Visit Diagnoses Not on filedocumented in this encounter Care Teams Picture Hanger Relationship Specialty Start Date End Date Irma Santizo DO [address] [place] [phone] PCP - General Family Medicine 06/19/23 documented as of this encounter
--- OUTSIDE RECORDS SUMMARY | 2025-03-06 09:41 | XMS_ITS | Encounter Summary ---
Author Organization [facility] Address [address] [place] [address] Care Team Providers Care Manager Policy Name Role Phone Irma Burt DO Primary Care Provider [phone] Encounter Details Date Type Department Care Team (Late st Contact Info) Description 01/02/2024 Abstract [facility] [address] [facility] [place] [place] [phone] Bryan Ospina DO [address] [facility] [address] Sanam Live, [id number] Social History Tobacco Use Types Packs/Day Years Used Date Smoking Tobacco: Never Assessed Comments Yes Sex and Gender Information Value Date Recorded Sex Assigned at Not on file Legal Sex Female 9:54 AM EST Gender Identity Not on file Sexual Orientation Not on file documented as of this encounter Plan of Treatment Not on file documented as of this encounter Visit Diagnoses Not on filedocumented in this encounter Care Teams Manager Policy Relationship Specialty Start Date End Date Irma Burt DO [address] [place] [phone] PCP - General Family Medicine 06/19/23 documented as of this encounter
--- OUTSIDE RECORDS SUMMARY | 2025-03-06 09:41 | XMS_ITS | Encounter Summary ---
Author Organization [facility] Address [address] [place] [address] Care Team Providers Care Rehab Manager Name Role Phone Irma Burt DO Primary Care Provider [phone] Encounter Details Date Type Department Care Team (Late st Contact Info) Description 12/03/2023 Abstract [facility] [address] [place] [phone] Ebonie Oneil LPN [email or web address] [place] [phone] Social History Tobacco Use Types Packs/Day Years [...] on filedocumented in this encounter Care Teams Rehab Manager Relationship Specialty Start Date End Date Irma Burt DO [address] [place] [phone] PCP - General Family Medicine 06/19/23 documented as of this encounter
--- OUTSIDE RECORDS SUMMARY | 2025-03-06 09:41 | XMS_ITS | Encounter Summary ---
Author Organization [facility] tem Address [id number] [address] [place] [address] Care Team Providers Care Buhr Dresser Name Role Phone No Pcp, No Pcp Primary Care Provider Unavailabl e Reason for Visit * Reason Comments Med Refill Encounter Details Date Type Department Care Team (Late st Contact Info) Description 07/20/2024 Refill Maternal- Medicine at [facility] [address] [place] [phone] Lizeth Jasso MD [address] [facility] 1st [place] [address] Social History Tobacco Use Types Packs/Day Years Used Date Smoking Tobacco: Former Vaping/E-cigarettes Smokeless Tobacco: Never Alcohol Use Standard Drinks/Week Comments Not Currently 0 (1 standard drink = 0.6 oz pur e alcohol) social Childcare Answer Date Recorded Childcare Unknown 10/28/2018 Employment Answer Date Recorded Employment Unknown 10/28/2018 Hunger Screening Answer Date Recorded Within the past 12 months we worried whether our food would run out before we got money to buy more. Never True 11/30/2023 Within the past 12 months th e food we bought just didn't last and we didn't have money to get more. Never True 11/30/2023 Purpose - Life Answer Date Recorded Purpose and direction in life Unknown Comments No Sex and Gender Information Value Date Recorded Sex Assigned at Not on file Legal Sex Female 2:05 PM EDT Gender Identity Not on file Sexual Orientation Not on file documented as of this encounter Plan of Treatment Not on file documented as of this encounter Visit Diagnoses Not on filedocumented in this encounter Care Teams Buhr Dresser Relationship Specialty Start Date End Date No Pcp, [place] [address] PCP - General Family Medicine 11/18/20 documented as of this encounter
--- OUTSIDE RECORDS SUMMARY | 2025-03-06 09:41 | XMS_ITS | Encounter Summary ---
Author Organization [facility] Address [id number] [address] [place] [address] Care Team Providers Care Research Chef Name Role Phone No Pcp, No Pcp Primary Care Provider Unavailabl e Encounter Details Date Type Department Care Team (Late st Contact Info) Description 12/10/2020 Telephone [facility] [address] [facility] [address] [place] [address] Naty Grossman MA Social History Tobacco Use Types Packs/Day Years Used Date Smoking Tobacco: Every Day Vaping/E-cigarettes Smokeless Tobacco: Never Alcohol Use Standard Drinks/Week Comments Yes 0 (1 standard drink = 0.6 oz pur e alcohol) social Childcare Answer Date Recorded Childcare Unknown 10/28/2018 Employment Answer Date Recorded Employment Unknown 10/28/2018 Purpose - Life Answer Date Recorded Purpose and direction in life Unknown Comments Unknown Sex and Gender Information Value Date Recorded Sex Assigned at Not on file Legal Sex Female 2:05 PM EDT Gender Identity Not on file Sexual Orientation Not on file COVID-19 Exposure Response Date Recorded In the last month, have you been in contact with someone who was confirmed or suspected to have Coronavirus / COVID-19? No / Unsure 11/17/2020 9:54 AM EDT documented as of this encounter Miscellaneous Notes * Telephone Encounter - Naty Grossman MA - 12/10/2020 9:[address] Tom would like patient and SO to make an appt to go over fertility results, left ms for pt to call office documented in this encounter Plan of Treatment Not on file documented as of this encounter Visit Diagnoses Not on filedocumented in this encounter Care Teams Research Chef Relationship Specialty Start Date End Date No Pcp, [place] [address] PCP - General Family Medicine 11/18/20 documented as of this encounter
--- OUTSIDE RECORDS SUMMARY | 2025-03-06 09:41 | XMS_ITS | Encounter Summary ---
Author Organization [facility] Address [address] [place] [address] Care Team Providers Care Dobby Loom Weaver Name Role Phone Irma Santizo DO Primary Care Provider [phone] Encounter Details Date Type Department Care Team (Late st Contact Info) Description 12/31/2023 Clinisync Result Encounter [facility] External Department Unsolicited Sagar Ospina DO [address] [facility] [address] [place], [place] [phone] Social History Tobacco Use Types Packs/Day Years [...] Priority Date/Time Associated Diagnosis Comments US OB BPP W NON-STRESS 12/31/2023 2:22 PM EDT documented in this encounter Results * US OB BPP W NON-STRESS (12/31/2023 2:22 PM EDT) Anatomical Region Laterality Modality Other 12/31/2023 2:22 PM EDT Narrative 12/31/2023 2:25 PM EDT The [address] [address] Ultrasound Report Signed Patient: LAURA ALVES MR#: [id number] : 1985 Acct:[id number] Age/Sex: 38 / F ADM Date: 12/31/23 Loc: [facility] 250-[address]: Sagar Ospina D.O. Ordering Physician: Sagar Ospina D.O. Date of Service: 12/31/23 Procedure(s): US OB BPP w non-stress Accession Number(s): [id number] cc: IRMA SANTIZO ; Sagar Ospina D.O. The [address] [phone] Patient Name: LAURA ALVES MRN: [facility]:[id number] date: 1985 Sex: F Assigned Patient Location: [facility] Current Patient Location: [facility] Accession/Order Number: [id number] Exam Date: 12/31/2023 13:57 Report Date: 12/31/2023 14:22 At the request of: SAGAR OSPINA Procedure: US OB BPP w non-stress EXAMINATION: US OB BPP w non-stress HISTORY: Multigravida of advanced maternal age O09.523 COMPARISON: No relevant comparison available. TECHNIQUE: Ultrasound biophysical profile was performed in the radiology department. non-reactive stress testing was performed by nursing staff in the birthing center. FINDINGS: BREATHING MOVEMENTS: 2 GROSS BODY MOVEMENTS: 2 TONE: 2 QUALITATIVE AMNIOTIC FLUID VOLUME: 2 PRESENTATION: CEPHALIC HEART RATE: 140.63 bpm AMNIOTIC FLUID VOLUME: 23.7 cm GESTATIONAL AGE: 36 weeks 3 days US/US OB BPP w non-stress IMPRESSION: Total biophysical profile score: 8 Electronically authenticated by: MUSTAPHA COLES Date: 12/31/2023 14:22 Dictated By: Mustapha Coles M.D. Signed By: 12/31/23 1425 DD/ 1422 TD/TT: Administrative Secretary: Procedure Note Radiology, Radiologist, - 12/31/[address] [address] Ultrasound Report Signed Patient: LAURA ALVES KMR#: [id number] : 1985Acct:[id number] Age/Sex: 38 / FADM Date: 12/31/23 Loc: [facility] 250-[address]: Sagar Ospina D.O. Ordering Physician: Sagar Ospina D.O. Date of Service: 12/31/23 Procedure(s): US OB BPP w non-stress Accession Number(s): [id number] cc: IRMA SANTIZO ; Sagar Ospina D.O. [place] [address] Patient Name: LAURA ALVES MRN: [facility]:[id number] date: 1985 Sex: F Assigned Patient Location: [facility] Current Patient Location: [facility] Accession/Order Number: [id number] Exam Date: 12/31/2023 13:57 Report Date: 12/31/2023 14:22 At the request of: SAGAR OSPINA Procedure: US OB BPP w non-stress EXAMINATION: US OB BPP w non-stress HISTORY: Multigravida of advanced maternal age O09.523 COMPARISON: No relevant comparison available. TECHNIQUE: Ultrasound biophysical profile was performed in the radiology department. non-reactive stress testing was performed by nursingstaff in the birthing center. FINDINGS: BREATHING MOVEMENTS: 2 GROSS BODY MOVEMENTS: 2 TONE: 2 QUALITATIVE AMNIOTIC FLUID VOLUME: 2 PRESENTATION: CEPHALIC HEART RATE: 140.63 bpm AMNIOTIC FLUID VOLUME: 23.7 cm GESTATIONAL AGE: 36 weeks 3 days US/US OB BPP w non-stress IMPRESSION: Total biophysical profile score: 8 Electronically authenticated by: MUSTAPHA COLES Date: 12/31/2023 14:22 Dictated By: Mustapha Coles M.D. Signed By:12/31/23 1425 DD/ 1422 TD/TT: Administrative Secretary: Sagar Ospina DO [facility] Final Result documented in this encounter Visit Diagnoses Not on filedocumented in this encounter Care Teams Dobby Loom Weaver Relationship Specialty Start Date End Date Irma Santizo DO [address] [place] [phone] PCP - General Family Medicine 06/19/23 documented as of this encounter
--- OUTSIDE RECORDS SUMMARY | 2025-03-06 09:41 | XMS_ITS | Encounter Summary ---
Author Organization [facility] Address [address] [place] [address] Care Team Providers Care Financial Analyst Intern Name Role Phone Irma Burt DO Primary Care Provider [phone] Encounter Details Date Type Department Care Team (Late st Contact Info) Description 11/02/2023 Abstract [facility] [address] [place] [address] Kaylin De La Torre LPN [address] [employer] [place] [phone] Social History Tobacco Use Types Packs/Day Years [...] on filedocumented in this encounter Care Teams Financial Analyst Intern Relationship Specialty Start Date End Date Irma Burt DO [address] [place] [phone] PCP - General Family Medicine 06/19/23 documented as of this encounter
--- OUTSIDE RECORDS SUMMARY | 2025-03-06 09:41 | XMS_ITS | Encounter Summary ---
Author Organization [facility] Address [address] [place] [address] Care Team Providers Care Cnc Operator Machinist Name Role Phone Irma Santizo DO Primary Care Provider [phone] Encounter Details Date Type Department Care Team (Late st Contact Info) Description 09/13/2023 Clinisync Result Encounter [facility] External Department Unsolicited Sagar sOpina DO [address] [facility] [address] [place], [place] [phone] Social History Tobacco Use Types Packs/Day Years [...] Name Priority Date/Time Associated Diagnosis Comments US AMNIOTIC FLUID VOLUME 09/13/2023 7:48 AM EDT documented in this encounter Results * US AMNIOTIC FLUID VOLUME (09/13/2023 7:48 AM EDT) Anatomical Region Laterality Modality Radiographic Mary ging 09/13/2023 7:48 AM EDT Narrative 09/13/2023 7:50 AM EDT The [address] [address] Ultrasound Report Signed Patient: LAURA ALVES MR#: [id number] : 1985 Acct:[id number] Age/Sex: 38 / F ADM Date: Loc: [facility] 250-[address]: Sagar Ospina D.O. Ordering Physician: Sagar Ospina D.O. Date of Service: 09/13/23 Procedure(s): US OB amniotic fluid vol Accession Number(s): [id number] cc: IRMA SANTIZO ; Sagar Ospina D.O. [place] [id number] Patient Name: LAURA ALVES MRN: [facility]:[id number] date: 1985 Sex: F Assigned Patient Location: [facility] Current Patient Location: [facility] Accession/Order Number: [id number] Exam Date: 09/13/2023 07:30 Report Date: 09/13/2023 07:48 At the request of: SAGAR OSPINA Procedure: US OB amniotic fluid vol EXAMINATION: US OB amniotic fluid vol HISTORY: Leaking of Fluid COMPARISON: No relevant comparison available. FINDINGS: position: Transverse Amniotic fluid volume: 13.3 cm, 5th-95th percentiles 8.7 2023.1 cm Largest fluid pocket: 5.5 cm Heart rate: [36 bpm Placenta: Anterior Gestational age: 20 weeks 2 days US/US OB amniotic fluid vol IMPRESSION: Normal amniotic fluid index Electronically authenticated by: MUSTAPHA COLES Date: 09/13/2023 07:48 Dictated By: Mustapha Coles M.D. Signed By: 09/13/23 0750 DD/ 0748 TD/TT: Live In Companion: Procedure Note Radiology, Radiologist, MD - 09/13/2023 [place] [address] Ultrasound Report Signed Patient: LAURA ALVES KMR#: [id number] : 1985Acct:[id number] Age/Sex: 38 / FADM Date: Loc: [facility] 250-[address]: Sagar Ospina D.O. Ordering Physician: Sagar Ospina D.O. Date of Service: 09/13/23 Procedure(s): US OB amniotic fluid vol Accession Number(s): [id number] cc: IRMA SANTIZO ; Sagar Ospina D.O. [address] [address] Patient Name: LAURA ALVES MRN: [facility]:[id number] date: 1985 Sex: F Assigned Patient Location: [facility] Current Patient Location: [facility] Accession/Order Number: [id number] Exam Date: 09/13/2023 07:30 Report Date: 09/13/2023 07:48 At the request of: SAGAR OSPINA Procedure: US OB amniotic fluid vol EXAMINATION: US OB amniotic fluid vol HISTORY: Leaking of Fluid COMPARISON: No relevant comparison available. FINDINGS: position: Transverse Amniotic fluid volume: 13.3 cm, 5th-95th percentiles 8.7 2023.1 cm Largest fluid pocket: 5.5 cm Heart rate: [36 bpm Placenta: Anterior Gestational age: 20 weeks 2 days US/US OB amniotic fluid vol IMPRESSION: Normal amniotic fluid index Electronically authenticated by: MUSTAPHA COLES Date: 09/13/2023 07:48 Dictated By: Mustapha Coles M.D. Signed By:09/13/23 0750 DD/ 0748 TD/TT: Live In Companion: us Sagar Ospina DO IMG XR PROCEDURES Final Result documented in this encounter Visit Diagnoses Not on filedocumented in this encounter Care Teams Cnc Operator Machinist Relationship Specialty Start Date End Date Irma Santizo DO [address] [place] [address] PCP - General Family Medicine 06/19/23 documented as of this encounter
--- OUTSIDE RECORDS SUMMARY | 2025-03-06 09:41 | XMS_ITS | Encounter Summary ---
Author Organization [facility] Address [address] [place] [address] Care Team Providers Care Garment Sewing Machine Operator Name Role Phone Irma Burt DO Primary Care Provider [phone] Encounter Details Date Type Department Care Team (Late st Contact Info) Description 10/02/2023 Abstract [facility] [place] [facility] [address] [place] [phone] Ebonie Oneil LPN [address] [employer] [facility] [place] [phone] Social History Tobacco Use Types Packs/Day Years [...] on filedocumented in this encounter Care Teams Garment Sewing Machine Operator Relationship Specialty Start Date End Date Irma Burt DO [address] [place] [phone] PCP - General Family Medicine 06/19/23 documented as of this encounter
--- OUTSIDE RECORDS SUMMARY | 2025-03-06 09:41 | XMS_ITS | Encounter Summary ---
Author Organization [facility] Address [address] [place] [address] Care Team Providers Care Molder Name Role Phone Irma Santizo DO Primary Care Provider Encounter Details Date Type Department Care Team (Late st Contact Info) Description 01/03/2024 Clinisync Result Encounter [facility] External Department Unsolicited Sagar Ospina DO [address] [facility] [address] [place], [place] [phone] Social History Tobacco Use Types Packs/Day Years [...] Diagnosis Comments US OB BPP W NON-STRESS 01/03/2024 3:56 PM EDT documented in this encounter Results * US OB BPP W NON-STRESS (01/03/2024 3:56 PM EDT) Anatomical Region Laterality Modality Other 01/03/2024 3:56 PM EDT Narrative 01/03/2024 3:59 PM EDT The [address] [address] Ultrasound Report Signed Patient: LAURA ALVES MR#: [id number] : 1985 Acct:[id number] Age/Sex: 38 / F ADM Date: 01/03/24 Loc: [facility] Attending Dr: Sagar Ospina D.O. Ordering Physician: Sagar Ospina D.O. Date of Service: 01/03/24 Procedure(s): US OB BPP w non-stress Accession Number(s): [id number] cc: IRMA SANTIZO ; Sagar Ospina D.O. The [place] [id number] Patient Name: LAURA ALVES MRN: [facility]:[id number] date: 1985 Sex: F Assigned Patient Location: [facility] Current Patient Location: [facility] Accession/Order Number: [id number] Exam Date: 01/03/2024 12:45 Report Date: 01/03/2024 15:56 At the request of: SAGAR OSPINA Procedure: US OB BPP w non-stress EXAMINATION: US OB BPP w non-stress HISTORY:true knot COMPARISON: Ultrasound OB biophysical 12/31/2023 TECHNIQUE: Ultrasound biophysical profile was performed in the radiology department. BREATHING MOVEMENTS: 2 GROSS BODY MOVEMENTS: 2 TONE: 2 QUALITATIVE AMNIOTIC FLUID VOLUME: 2 PRESENTATION: Cephalic HEART RATE: 160 bpm AMNIOTIC FLUID VOLUME: 25.1 cm; normal range GESTATIONAL AGE: 36 weeks 6 days US/US OB BPP w non-stress IMPRESSION: 1. Total biophysical profile score: 8 Electronically authenticated by: HUGO BEAR Date: 01/03/2024 15:56 Dictated By: Hugo Bear M.D. Signed By: 01/03/24 1559 DD/ 1556 TD/TT: Laydown Machine Operator: Procedure Note Radiology, Radiologist, MD - 01/03/2024 [place] [address] Ultrasound Report Signed Patient: LAURA ALVES KMR#: [id number] : 1985Acct:[id number] Age/Sex: 38 / FADM Date: 01/03/24 Loc: [facility] Attending Dr: Sagar Ospina D.O. Ordering Physician: Sagar Ospina D.O. Date of Service: 01/03/24 Procedure(s): US OB BPP w non-stress Accession Number(s): [id number] cc: IRMA SANTIZO ; Sagar Ospian D.O. The [place] [id number] Patient Name: LAURA ALVES MRN: [id number] date: 1985 Sex: F Assigned Patient Location: [facility] Current Patient Location: [facility] Accession/Order Number: [id number] Exam Date: 01/03/2024 12:45 Report Date: 01/03/2024 15:56 At the request of: SAGAR OSPINA Procedure: US OB BPP w non-stress EXAMINATION: US OB BPP w non-stress HISTORY:true knot COMPARISON: Ultrasound OB biophysical 12/31/2023 TECHNIQUE: Ultrasound biophysical profile was performed in the radiology department. BREATHING MOVEMENTS: 2 GROSS BODY MOVEMENTS: 2 TONE: 2 QUALITATIVE AMNIOTIC FLUID VOLUME: 2 PRESENTATION: Cephalic HEART RATE: 160 bpm AMNIOTIC FLUID VOLUME: 25.1 cm; normal range GESTATIONAL AGE: 36 weeks 6 days US/US OB BPP w non-stress IMPRESSION: 1. Total biophysical profile score: 8 Electronically authenticated by: HUGO BEAR Date: 01/03/2024 15:56 Dictated By: Hugo Bear M.D. Signed By:01/03/24 1559 DD/ 1556 TD/TT: Laydown Machine Operator: us Sagar Ospina DO [facility] Final Result documented in this encounter Visit Diagnoses Not on filedocumented in this encounter Care Teams Molder Relationship Specialty Start Date End Date Irma [place] [phone] PCP - General Family Medicine 06/19/23 documented as of this encounter
--- OUTSIDE RECORDS SUMMARY | 2025-03-06 09:41 | XMS_ITS | Encounter Summary ---
Author Organization [facility] Address [address] [place] [address] Care Team Providers Care Practical Nurse Name Role Phone Irma Burt DO Primary Care Provider [phone] Encounter Details Date Type Department Care Team (Late st Contact Info) Description 01/07/2024 Abstract [facility] [address] [facility] [place] [phone] Bryan Ospina DO [address] [facility] [address] [place]am [place], [id number] Social History Tobacco Use Types Packs/Day Years [...] on filedocumented in this encounter Care Teams Practical Nurse Relationship Specialty Start Date End Date Irma Burt DO [address] [place] [phone] PCP - General Family Medicine 06/19/23 documented as of this encounter
--- OUTSIDE RECORDS SUMMARY | 2025-03-06 09:41 | XMS_ITS | Encounter Summary ---
Author Organization [facility] Address [address] [place] [address] Care Team Providers Care M48 M60 Armor Crewman Name Role Phone Irma Santizo DO Primary Care Provider [phone] Encounter Details Date Type Department Care Team (Late st Contact Info) Description 01/03/2024 Clinisync Result Encounter [facility] External Department Unsolicited Sagar Ospina DO [address] [facility] [address] [place], [place] [id number] Social History Tobacco Use Types Packs/Day Years [...] Priority Date/Time Associated Diagnosis Comments US OB UMBILICAL ARTERY DOPPLER 01/03/2024 2:06 PM EDT documented in this encounter Results * US OB UMBILICAL ARTERY DOPPLER (01/03/2024 2:06 PM EDT) Anatomical Region Laterality Modality Radiographic Mary ging 01/03/2024 2:06 PM EDT Narrative 01/03/2024 2:09 PM EDT The [address] [address] Ultrasound Report Signed Patient: LAURA ALVES MR#: [id number] : 1985 Acct:[id number] Age/Sex: 38 / F ADM Date: 01/03/24 Loc: [facility] Attending Dr: Sagar Ospina D.O. Ordering Physician: Sagar Ospina D.O. Date of Service: 01/03/24 Procedure(s): US OB umbilical artery Accession Number(s): [id number] cc: IRMA SANTIZO ; Sagar Ospina D.O. The [place] [address] Patient Name: LAURA ALVES MRN: [facility]:[id number] date: 1985 Sex: F Assigned Patient Location: [facility] Current Patient Location: Accession/Order Number: [id number] Exam Date: 01/03/2024 12:45 Report Date: 01/03/2024 14:06 At the request of: SAGAR OSPINA Procedure: US OB umbilical artery EXAMINATION: US OB umbilical artery HISTORY: true knot COMPARISON: Ultrasound OB biophysical 12/31/2023 TECHNIQUE: Duplex Doppler evaluation of the umbilical arteries. FINDINGS: HEART RATE: 160 bpm UMBILICAL ARTERIES: 2 GESTATIONAL AGE: 36 weeks 6 days WAVEFORM: Normal upstroke. No notching. Forward flow in diastole. PEAK SYSTOLIC VELOCITY: 108 cm/s END DIASTOLIC VELOCITY: 58 cm/s SYST/DIAST RATIO (S:D): 1.9 RESISTIVE INDEX: 0.47 US/US OB umbilical artery IMPRESSION: 1. Class 0 = Normal umbilical artery blood velocity Normal values:: Age 36: 1.96 for the 10th percentile, 2.35 for the 50th percentile, 3.15 for the 90th percentile Age 38: 1.89 for the 10th percentile, 2.24 for the 50th percentile, 3.10 for the 90th percentile Resistive Index (RI): Normal=<0.55 Electronically authenticated by: HUGO BEAR Date: 01/03/2024 14:06 Dictated By: Hugo Bear M.D. Signed By: 01/03/24 1409 DD/ 05 TD/TT: Tobacco Hanger: Procedure Note Radiology, Radiologist, - 01/03/2024 [place] [address] Ultrasound Report Signed Patient: LAURA ALVES KMR#: [id number] : 1985Acct:[id number] Age/Sex: 38 / FADM Date: 01/03/24 Loc: [facility] Attending Dr: Sagar Ospina D.O. Ordering Physician: Sagar Ospina D.O. Date of Service: 01/03/24 Procedure(s): US OB umbilical artery Accession Number(s): [id number] cc: IRMA SANTIZO ; Sagar Ospina D.O. [place] [address] Patient Name: LAURA ALVES MRN: [id number] date: 1985 Sex: F Assigned Patient Location: [facility] Current Patient Location: Accession/Order Number: [id number] Exam Date: 01/03/2024 12:45 Report Date: 01/03/2024 14:06 At the request of: SAGAR OSPINA Procedure: US OB umbilical artery EXAMINATION: US OB umbilical artery HISTORY: true knot COMPARISON: Ultrasound OB biophysical 12/31/2023 TECHNIQUE: Duplex Doppler evaluation of the umbilical arteries. FINDINGS: HEART RATE: 160 bpm UMBILICAL ARTERIES: 2 GESTATIONAL AGE: 36 weeks 6 days WAVEFORM: Normal upstroke. No notching. Forward flow in diastole. PEAK SYSTOLIC VELOCITY: 108 cm/s END DIASTOLIC VELOCITY: 58 cm/s SYST/DIAST RATIO (S:D): 1.9 RESISTIVE INDEX: 0.47 US/US OB umbilical artery IMPRESSION: 1. Class 0 = Normal umbilical artery blood velocity Normal values:: Age 36: 1.96 for the 10th percentile, 2.35 for the 50th percentile, 3.15for the 90th percentile Age 38: 1.89 for the 10th percentile, 2.24 for the 50th percentile, 3.10for the 90th percentile Resistive Index (RI): Normal=<0.55 Electronically authenticated by: HUGO BEAR Date: 01/03/2024 14:06 Dictated By: Hugo Bear M.D. Signed By:01/03/24 1409 DD/ 140 TD/TT: Tobacco Hanger: Sagar Ospina DO IMG XR PROCEDURES Final Result documented in this encounter Visit Diagnoses Not on filedocumented in this encounter Care Teams M48 M60 Armor Crewman Relationship Specialty Start Date End Date Irma Santizo DO [address] [place] [address] PCP - General Family Medicine 06/19/23 documented as of this encounter
--- OUTSIDE RECORDS SUMMARY | 2025-03-06 09:41 | XMS_ITS | Encounter Summary ---
Author Organization [facility] tem Address [id number] [address] [place] [address] Care Team Providers Care Cut To Length Operator Name Role Phone No Pcp, No Pcp Primary Care Provider Unavailabl e Reason for Visit * Reason Comments Med Refill Encounter Details Date Type Department Care Team (Late st Contact Info) Description 08/31/2024 Refill Maternal- Medicine at [facility] [address] [place] [phone] Lizeth Jasso MD [address] [facility] 1st [place] [address] Social History Tobacco Use Types Packs/Day Years [...] on filedocumented in this encounter Care Teams Cut To Length Operator Relationship Specialty Start Date End Date No Pcp, [place] [address] PCP - General Family Medicine 11/18/20 documented as of this encounter
--- OUTSIDE RECORDS SUMMARY | 2025-03-06 09:41 | XMS_ITS | Encounter Summary ---
Author Organization [facility] Address [id number] [address] [place] [address] Care Team Providers Care Senior Project Manager Engineering Name Role Phone No Pcp, No Pcp Primary Care Provider Unavailabl e Encounter Details Date Type Department Care Team (Late st Contact Info) Description 07/26/2023 Orders Only Maternal- Medicine at [facility] [address] [place] [address] Ref Prov, [place] [address] Social History Tobacco Use Types Packs/Day Years Used Date Smoking Tobacco: Every Day Vaping/E-cigarettes Smokeless Tobacco: Never Alcohol Use Standard Drinks/Week Comments Yes 0 (1 standard drink = 0.6 oz pur e alcohol) social Childcare Answer Date Recorded Childcare Unknown 10/28/2018 Employment Answer Date Recorded Employment Unknown 10/28/2018 Purpose - Life Answer Date Recorded Purpose and direction in life Unknown Comments Yes Sex and Gender Information Value Date Recorded Sex Assigned at Not on file Legal Sex Female 2:05 PM EDT Gender Identity Not on file Sexual Orientation Not on file documented as of this encounter Plan of Treatment Not on file documented as of this encounter Procedures Procedure Name Priority Date/Time Associated Diagnosis Comments US PREG LMTD 1 OR MORE FETUS Routine 07/26/2023 1:17 PM EST US PREG LMTD 1 OR MORE FETUS Routine 06/19/2023 1:23 PM EST US PREG LMTD 1 OR MORE FETUS Routine 06/11/2023 1:20 PM EST documented in this encounter Results * Ultrasound limited 1 or more fetus (07/26/2023 1:17 PM EST) Anatomical Region Laterality Modality OB-EMERGENCY ROOM CLERK Ultrasound us Not In System Ref Prov IMG US ORDERABLES Final R esult * Ultrasound limited 1 or more fetus (06/19/2023 1:23 PM EST) Anatomical Region Laterality Modality OB-EMERGENCY ROOM CLERK Ultrasound us Not In System Ref Prov IMG US ORDERABLES Final R esult * Ultrasound limited 1 or more fetus (06/11/2023 1:20 PM EST) Anatomical Region Laterality Modality OB-EMERGENCY ROOM CLERK Ultrasound us Not In System Ref Prov IMG US ORDERABLES Final R esult documented in this encounter Visit Diagnoses Not on filedocumented in this encounter Care Teams Senior Project Manager Engineering Relationship Specialty Start Date End Date No Pcp, [place] [address] PCP - General Family Medicine 11/18/20 documented as of this encounter
--- OUTSIDE RECORDS SUMMARY | 2025-03-06 09:41 | XMS_ITS | Encounter Summary ---
Author Organization [facility] Address [address] [place] [address] Care Team Providers Care Processor Inspector Name Role Phone Irma Santizo DO Primary Care Provider [phone] Encounter Details Date Type Department Care Team (Late st Contact Info) Description 01/14/2024 Clinisync Result Encounter [facility] External Department Unsolicited Sagar Ospina DO [address] [facility] [address] [place], [place] [phone] Social History Tobacco Use Types Packs/Day Years [...] Name Priority Date/Time Associated Diagnosis Comments US PELVIS 01/14/2024 11:24 AM EDT documented in this encounter Results * US PELVIS (01/14/2024 11:24 AM EDT) Anatomical Region Laterality Modality Other 01/14/2024 11:2 4 AM EDT Narrative 01/14/2024 11:27 AM EDT The [address] [address] Ultrasound Report Signed Patient: LAURA ALVES MR#: [id number] : 1985 Acct:[id number] Age/Sex: 38 / F ADM Date: 01/12/24 Loc: [facility] 258-[address]: Sagar Ospina D.O. Ordering Physician: Sagar Ospina D.O. Date of Service: 01/14/24 Procedure(s): US pelvis Accession Number(s): [id number] cc: IRMA SANTIZO ; Sagar Ospina D.O. The [address] [address] Patient Name: LAURA ALVES MRN: [id number] date: 1985 Sex: F Assigned Patient Location: [facility] Current Patient Location: [facility] Accession/Order Number: [id number] Exam Date: 01/14/2024 10:42 Report Date: 01/14/2024 11:24 At the request of: SAGAR OSPINA Procedure: US pelvis EXAMINATION: US pelvis HISTORY: rule out retained placental products COMPARISON: No relevant comparison available. FINDINGS: The uterus is enlarged in size heterogeneous in echotexture consistent with the patient's state. There is enlarged heterogeneous appearance of the endometrial cavity with 2 components largest component measuring 3.8 x 3.3 x 1.1 cm. Echogenic foci and cystic areas within the endometrial cavity however no color flow is demonstrated. The ovaries are not definitively visualized No free fluid. US/US pelvis IMPRESSION: Thickened heterogeneous echogenic appearance of the endometrial cavity. This likely represents hemorrhage and/or air. No vascularity to suggest retained products of conception Electronically authenticated by: MUSTAPHA COLES Date: 01/14/2024 11:24 Dictated By: Mustapha Coles M.D. Signed By: 01/14/24 1127 DD/ 1124 TD/TT: Senior Stereo Compiler Team Lead: Procedure Note Radiology, Radiologist, MD - 01/14/[address] [address] Ultrasound Report Signed Patient: LAURA ALVES KMR#: [id number] : 1985Acct:[id number] Age/Sex: 38 / FADM Date: 01/12/24 Loc: [facility] 258-[address]: Sagar Ospina D.O. Ordering Physician: Sagar Ospina D.O. Date of Service: 01/14/24 Procedure(s): US pelvis Accession Number(s): [id number] cc: IRMA SANTIZO ; Sagar Ospina D.O. The [address] [address] Patient Name: LAURA ALVES MRN: [id number] date: 1985 Sex: F Assigned Patient Location: [facility] Current Patient Location: [facility] Accession/Order Number: [id number] Exam Date: 01/14/2024 10:42 Report Date: 01/14/2024 11:24 At the request of: SAGAR OSPINA Procedure: US pelvis EXAMINATION: US pelvis HISTORY: rule out retained placental products COMPARISON: No relevant comparison available. FINDINGS: The uterus is enlarged in size heterogeneous in echotexture consistentwith the patient's state. There is enlarged heterogeneous appearance ofthe endometrial cavity with 2 components largest component measuring 3.8 x 3.3x 1.1 cm. Echogenic foci and cystic areas within the endometrial cavityhowever no color flow is demonstrated. The ovaries are not definitively visualized No free fluid. US/US pelvis IMPRESSION: Thickened heterogeneous echogenic appearance of the endometrial cavity.This likely represents hemorrhage and/or air. No vascularity to suggestretained products of conception Electronically authenticated by: MUSTAPHA COLES Date: 01/14/2024 11:24 Dictated By: Mustapha Coles M.D. Signed By:01/14/24 1127 DD/ 1124 TD/TT: Senior Stereo Compiler Team Lead: Sagar Ospina DO [facility] Final Result documented in this encounter Visit Diagnoses Not on filedocumented in this encounter Care Teams Processor Inspector Relationship Specialty Start Date End Date Irma Santizo DO [address] [facility] [place] [phone] PCP - General Family Medicine 06/19/23 documented as of this encounter
--- OUTSIDE RECORDS SUMMARY | 2025-03-06 09:41 | XMS_ITS | Encounter Summary ---
Author Organization [facility] Address [address] [place] [address] Care Team Providers Care Survey And Mapping Technician Name Role Phone Irma Burt DO Primary Care Provider [phone] Encounter Details Date Type Department Care Team (Late st Contact Info) Description 01/07/2024 Abstract [facility] [address] [facility] [place] [phone] Bryan Ospina DO [address] [facility] [address] [place]am [place], [facility] Social History Tobacco Use Types Packs/Day Years [...] on filedocumented in this encounter Care Teams Survey And Mapping Technician Relationship Specialty Start Date End Date Irma Burt DO [address] [place] [phone] PCP - General Family Medicine 06/19/23 documented as of this encounter
--- OUTSIDE RECORDS SUMMARY | 2025-03-06 09:41 | XMS_ITS | Encounter Summary ---
Author Organization [facility] Address [address] [place] [address] Care Team Providers Care Pack Press Operator Name Role Phone Irma Burt DO Primary Care Provider [phone] Encounter Details Date Type Department Care Team (Late st Contact Info) Description 10/22/2023 Abstract [facility] [address] [place] [phone] Ebonie Oneil LPN [address] [facility] [place] [id number] Social History Tobacco Use Types Packs/Day Years [...] on filedocumented in this encounter Care Teams Pack Press Operator Relationship Specialty Start Date End Date Irma Burt DO [address] [place] [phone] PCP - General Family Medicine 06/19/23 documented as of this encounter
--- OUTSIDE RECORDS SUMMARY | 2025-03-06 09:41 | XMS_ITS | Encounter Summary ---
Author Organization [facility] Address [address] [place] [address] Care Team Providers Care Chemical Pumper Name Role Phone Irma Santizo DO Primary Care Provider [phone] Encounter Details Date Type Department Care Team (Late st Contact Info) Description 01/13/2024 Clinisync Result Encounter [facility] External Department Unsolicited Sagar Ospina DO [address] [facility] [place] [address] Social History Tobacco Use Types Packs/Day Years [...] Name Priority Date/Time Associated Diagnosis Comments CT ANGIOGRAM CHEST 01/13/2024 10 :19 AM EDT MHPT DIFFERENTIAL Routine 01/13/2024 7:0 4 AM EDT documented in this encounter Results * CT angiogram chest (01/13/2024 10:19 AM EDT) Anatomical Region Laterality Modality Body, Chest Computed Tomogra phy 01/13/2024 10:1 9 AM EDT Narrative 01/13/2024 10:21 AM EDT The [address] [address] [address] Scan Report Signed Patient: LAURA AVLES MR#: [id number] : 1985 Acct:[id number] Age/Sex: 38 / F ADM Date: 01/12/24 Loc: [facility] 252-[address]: Sagar Ospina D.O. Ordering Physician: Sagar Ospina D.O. Date of Service: 01/13/24 Procedure(s): CT angio chest Accession Number(s): [id number] cc: IRMA SANTIZO [place] [id number] Patient Name: LAURA ALVES MRN: [facility]:[id number] date: 1985 Sex: F Assigned Patient Location: [facility] Current Patient Location: [facility] Accession/Order Number: [id number] Exam Date: 01/13/2024 09:05 Report Date: 01/13/2024 10:19 At the request of: SAGAR OSPINA Procedure: CT angio chest CT CHEST ANGIOGRAPHY FOR PULMONARY EMBOLUS: 01/13/2024 9:05 AM EDT Clinical Data: SOB r/o PE Comparison: No previous Contrast enhanced helically acquired data per pulmonary CTA protocol. Volumetric recons in MIP mode were generated and reviewed. FINDINGS: Artifact from arms at sides. AXILLAE: No acute finding. SUPRACLAVICULAR: No acute finding. MEDIASTINUM: Mild confluent low density material in the anterior mediastinum with no mass effect. Potential mildly enlarged low density subcarinal node. GEETHA: Nonenlarged hilar alba tissue, right a little greater than left. HEART: Normal in size. No pericardial effusion. VASCULAR: SYSTEMIC: No thoracic aortic aneurysm. Great vessels are patent PULMONARY: Main pulmonary artery is clear. Right and left pulmonary arteries are clear. Proximal through mid branches are free of meniscal filling defects. LUNGS: A few patchy areas of groundglass opacity in the right. Areas of linear peripheral atelectasis in both lungs. PLEURA: No pleural effusion. CHEST WALL: No focal soft tissue prominence. BONES: No acute finding. UPPER ABD: No acute finding. OTHER: No acute finding. CT/CT angio chest IMPRESSION: 1. No evidence of acute pulmonary embolic disease. 2. A few small patchy areas of groundglass opacity in the right lung. Areas of atelectasis versus early pneumonitis. Further peripherally there are peripheral areas of linear atelectasis in both lungs. 3. No pleural effusion. 4. Slightly prominent confluent low density material in the anterior mediastinum may represent thymic tissue. Electronically authenticated by: NEGRITO GREENBERG Date: 01/13/2024 10:19 Dictated By: Negrito Greenberg M.D. Signed By: 01/13/24 1021 DD/ 1019 TD/TT: Metal Sash Setter: Procedure Note Radiology, Radiologist, MD - 01/14/2024 [place] [address] CT Scan Report Signed Patient: LAURA ALVES KMR#: [id number] : 1985Acct:[id number] Age/Sex: 38 / FADM Date: 01/12/24 Loc: [facility] 252-[address]: Sagar Ospina D.O. Ordering Physician: Sagar Ospina D.O. Date of Service: 01/13/24 Procedure(s): CT angio chest Accession Number(s): [id number] cc: IRMA SANTIZO [place] [id number] Patient Name: LAURA ALVES MRN: [id number] date: 1985 Sex: F Assigned Patient Location: [facility] Current Patient Location: [facility] Accession/Order Number: [id number] Exam Date: 01/13/2024 09:05 Report Date: 01/13/2024 10:19 At the request of: SAGAR OSPINA Procedure: CT angio chest CT CHEST ANGIOGRAPHY FOR PULMONARY EMBOLUS: 01/13/2024 9:05 AM EDT Clinical Data: SOB r/o PE Comparison: No previous Contrast enhanced helically acquired data per pulmonary CTA protocol. Volumetric recons in MIP mode were generated and reviewed. FINDINGS: Artifact from arms at sides. AXILLAE: No acute finding. SUPRACLAVICULAR: No acute finding. MEDIASTINUM: Mild confluent low density material in the anteriormediastinum with no mass effect. Potential mildly enlarged low density subcarinalnode. GEETHA: Nonenlarged hilar alba tissue, right a little greater than left. HEART: Normal in size. No pericardial effusion. VASCULAR: SYSTEMIC: No thoracic aortic aneurysm. Great vessels are patent PULMONARY: Main pulmonary artery is clear. Right and left pulmonaryarteries are clear. Proximal through mid branches are free of meniscal fillingdefects. LUNGS: A few patchy areas of groundglass opacity in the right. Areas oflinear peripheral atelectasis in both lungs. PLEURA: No pleural effusion. CHEST WALL: No focal soft tissue prominence. BONES: No acute finding. UPPER ABD: No acute finding. OTHER: No acute finding. CT/CT angio chest IMPRESSION: 1. No evidence of acute pulmonary embolic disease. 2. A few small patchy areas of groundglass opacity in the right lung.Areas of atelectasis versus early pneumonitis. Further peripherally there are peripheral areas of linear atelectasis in both lungs. 3. No pleural effusion. 4. Slightly prominent confluent low density material in the anterior mediastinum may represent thymic tissue. Electronically authenticated by: NEGRITO GREENBERG Date: 01/13/2024 10:19 Dictated By: Negrito Greenberg M.D. Signed By:01/13/24 1021 DD/ 1019 TD/TT: Metal Sash Setter: Sagar Ospina DO [facility] CT PROCEDURES Final Result * (ABNORMAL) MHPT DIFFERENTIAL (01/13/2024 7:04 AM EDT) SEGMENTED NEUTROPHILS % MANUAL 70.0 43.0 - 75.0 [facility] BAND NEUTROPHILS % 1.0 0 - 5 % [facility] LYMPHOCYTES PERCENT MANUAL 14.0(L) 20.5 - 60.0 % [facility] MONOCYTES PERCENT MANUAL 6.0 1.7 - 12.0 % [facility] EOSINOPHILS PERCENT MANUAL 3.0 0.9 - 7.0 % [facility] BASOPHILS PERCENT MANUAL 0.0(L) 0.2 - 2.0 % [facility] METAMYELOCYTES % 5.0 TB[facility] TBH MYELOCYTE % 1.0 [facility] SEGMENTED NEUT ABSOLUTE MANUAL 6.72(H) 1.4 - 6.5 10 3/uL [facility] BAND NEUTROPHILS ABSOLUTE 0.1 0.0 - 0.3 10 3/uL [facility] LYMPHOCYTES ABSOLUTE MANUAL 1.34 1.20 - 3.80 10 3/uL [facility] MONOCYTES ABSOLUTE MANUAL 0.57 0.30 - 0.80 10 3/uL [facility] EOSINOPHILS ABSOLUTE MANUAL 0.28 0.00 - 0.70 10 3/uL [facility] BASOPHILS ABS MANUAL 0.00 0.00 - 0.10 10 3/uL [facility] METAMYELOCYTES ABSOLUTE MANUAL 0.48 [facility] MYELOCYTES ABSOLUTE MANUAL 0.09 [facility] 01/13/2024 7:04 AM EDT 01/13/2024 7:07 AM EDT Narrative [facility] - 01/13/2024 10:38 AM EDT us Sagar Anai DO [facility] Final Result [facility] documented in this encounter Visit Diagnoses Not on filedocumented in this encounter Care Teams Chemical Pumper Relationship Specialty Start Date End Date Irma Santizo DO [address] [place] [phone] PCP - General Family Medicine 06/19/23 documented as of this encounter
--- OUTSIDE RECORDS SUMMARY | 2025-03-06 09:41 | XMS_ITS | Encounter Summary ---
Author Organization [facility] Address [address] [place] [address] Care Team Providers Care Nurse Paralegal Name Role Phone Irma Burt DO Primary Care Provider [phone] Encounter Details Date Type Department Care Team (Late st Contact Info) Description 10/29/2023 Abstract [facility] [address] [place] [address] Kaylin De La Torre LPN [address] [employer] [place] [id number] Social History Tobacco Use Types Packs/Day Years [...] on filedocumented in this encounter Care Teams Nurse Paralegal Relationship Specialty Start Date End Date Irma Burt DO [address] [place] [phone] PCP - General Family Medicine 06/19/23 documented as of this encounter
--- OUTSIDE RECORDS SUMMARY | 2025-03-06 09:41 | XMS_ITS | Encounter Summary ---
Author Organization [facility] Address [address] [place] [address] Care Team Providers Care Director Of Scout Work Name Role Phone Irma Burt DO Primary Care Provider [phone] Encounter Details Date Type Department Care Team (Late st Contact Info) Description 11/21/2023 Abstract [facility] [address] [place] [address] Kaylin De La Torre LPN [address] [employer] [place] [phone] Social History Tobacco Use Types Packs/Day Years [...] on filedocumented in this encounter Care Teams Director Of Scout Work Relationship Specialty Start Date End Date Irma Burt DO [address] [place] [phone] PCP - General Family Medicine 06/19/23 documented as of this encounter
--- OUTSIDE RECORDS SUMMARY | 2025-03-06 09:41 | XMS_ITS | Encounter Summary ---
Author Organization [facility] Address [address] [place] [address] Care Team Providers Care Migratory Game Bird Biologist Name Role Phone Irma Burt DO Primary Care Provider [phone] Encounter Details Date Type Department Care Team (Late st Contact Info) Description 12/03/2023 Abstract [facility] [address] [place] [phone] Ebonie Oneil LPN [address] [facility] [place] [id number] Social History Tobacco Use Types Packs/Day Years [...] on filedocumented in this encounter Care Teams Migratory Game Bird Biologist Relationship Specialty Start Date End Date Irma Burt DO [address] [place] [phone] PCP - General Family Medicine 06/19/23 documented as of this encounter
--- OUTSIDE RECORDS SUMMARY | 2025-03-06 09:41 | XMS_ITS | Encounter Summary ---
Author Organization [facility] Address [address] [place] [address] Care Team Providers Care Forklift Driver Name Role Phone Burt, Amy Primary Care Provider [phone] Encounter Details Date Type Department Care Team (Late st Contact Info) Description 09/17/2023 External Result Encounter [facility] [address] [place] [address] Bryan Ospina DO [address] [facility] [address] [place], [id number] Social History Tobacco Use Types Packs/Day Years [...] Priority Date/Time Associated Diagnosis Comments US OB 14+ WEEKS ANATOMY SCAN 09/17/2023 1:43 PM EDT documented in this encounter Results * US OB 14+ weeks anatomy scan (09/17/2023 1:43 PM EDT) Anatomical Region Laterality Modality Body Ultrasound 09/17/2023 1:43 PM EDT Narrative 09/17/2023 1:42 PM EDT THIS [facility]FOR[facility] (Signed Final 09/17/2023 13:42) PATIENT INFO: ID #: [id number] : [birth year] (38 yrs)(F) Name: LAURA ALVES Visit Date: 09/17/2023 11:51 PERFORMED BY: Attending: Lizeth Jasso MD Performed By: Claire Menjivar RDMS Referred By: Bryan Ospina DO Ref. Address: [address] [place] [address] [place] [address] Location: [facility] [place] SERVICE(S) PROVIDED: Comprehensive Anatomic Survey 67678 OB Transvaginal 10348 INDICATIONS: Screening for anatomic survey Z36.89 Supervision of elderly (over 35 years), O09..519 antepartum Supervision of resulting from O09.819 assisted reproductive technology, antepartum Screening for cervical length Z36.86 VITAL SIGNS: Weight (lb): 246 Height: 5'7 BMI: 38.52 EVALUATION: Num Of Fetuses: 1 Heart Rate(bpm): 137 Cardiac Activity: Present appears normal Presentation: Breech Placenta: Anterior, low-lying Amniotic Fluid VONNIE FV: Subjectively within normal limits BIOMETRY: BPD: 49.8 mm G.Age: 21w 1d 34 % OFD: 66.3 mm HC: 186 mm G.Age: 21w 0d 20 % AC: 169.2 mm G.Age: 21w 6d 59 % FL: 34.3 mm G.Age: 20w 6d 20 % HUM: 32.6 mm G.Age: 21w 0d 36 % CER: 22.6 mm G.Age: 21w 1d 57 % NFT: 4.92 mm NB: 6.99 mm 42 % > 1 MoM CM: 5.1 mm TIB: 33.3 mm G.Age: 22w 2d 75 % CI: 75.1 % 70 - 86 FL/HC: 18.4 % 15.9 - 20.3 HC/AC: 1.10 1.06 - 1.25 FL/BPD: 68.9 % FL/AC: 20.3 % 20 - 24 Est. FW: 417 gm 0 lb 15 oz 40 % OB HISTORY: : 3 Term: 2 GESTATIONAL AGE: U/S Today: 21w 2d IFEANYI: 01/26/24 Best: 21w 3d Det. By: Embryo IFEANYI: 01/25/24 Transfer (05/09/23) TARGETED ANATOMY: Central Nervous System Calvarium/Cranial V.: Appears normal Intracranial Ama: Appears normal Cavum: Appears normal Lateral Ventricles: Not well visualized Choroid Plexus: Appears normal Cereb./Vermis: Not well visualized Cisterna Magna: Appears normal Midline Falx: Appears Normal Spine Cervical: Could not document Thoracic: Could not document Lumbar: Could not document Sacral: Could not document Head/Neck Face: Appears normal Lips: Appears normal Neck: Appears normal Nuchal Fold: Appears normal Nasal Bone: Present Palate: Could not document Profile: Appears normal Orbits/Eyes: Could not document Mandible: Could not document Maxilla: Could not document Thorax Thoracic Contour: Appears normal Lungs: Appears normal 4 Chamber View: Appears normal Cardiac Activity: Appears Normal Cardiac Rhythm: Normal Cardiac Situs: Appears normal Rt Outflow Tract: Not well visualized Lt Outflow Tract: Appears normal Aortic Arch: Appears normal Ductal Arch: Could not document SVC: Could not document Interventr. Septum: Appears Normal Cardiac Juniata: Appears normal Diaphragm: Appears normal 3 Vessel View: Appears normal 3 V Trachea View: Could not document IVC: Appears normal Abdomen Ventral Wall: Appears normal Cord Insertion: Appears normal Situs: Appears normal Stomach: Appears normal Lt Kidney: Appears normal Rt Kidney: Appears normal Bladder: Appears normal Extremities Lt Humerus: Appears normal Rt Humerus: Appears normal Lt Forearm: Appears normal Rt Forearm: Appears normal Lt Hand: Appears normal Rt Hand: Appears normal Lt Femur: Appears normal Rt Femur: Appears normal Lt Lower Leg: Appears normal Rt Lower Leg: Appears normal Lt Foot: Appears normal Rt Foot: Appears normal Other Umbilical Cord: Appears normal Masses: None visualized Genitalia: Female Comment: Abi told by EMELY, that the implanted embroy was XY. CERVIX UTERUS ADNEXA: Cervix Length: 3.2 cm. Appears closed, without funnelling Uterus Gravid uterus Right Ovary Not visualized Left Ovary Not visualized Cul De Sac No fluid seen Adnexa No adnexal masses identified COMMENTS: 1. Ultrasound is not diagnostic for chromosomal abnormalities, will not detect all structural abnormalities, and is not diagnostic for genetic disorders even if multiple exams are performed during a given . 2. In addition to the trans abdominal approach, a trans vaginal ultrasound was also performed to optimize the visualization of the lower uterine segment and the cervix. 2. anatomic survey is incomplete due to position. Lizeth Jasso MD Electronically Signed Final Report 09/17/2023 13:42 IMPRESSION: 1. Single intrauterine size consistent with dates. 2. Transvaginal Cervical Length measures 3.2 cm. 3. Anterior low lying placenta, measures 1.8cm from internal os. 4. genitalia are phenotypically female, though patient was informed that an XY 5day embryo had been implanted. RECOMMENDATIONS: 1. Please see [facility] consultation documentation from today's encounter. 2. Patient is scheduled in four weeks to complete the anatomic survey and echo. 3. Subsequent follow up or other follow up as clinically determined by primary OB provider unless otherwise specified by [facility]. 4. Results forwarded to ordering provider so they can follow up with the patient as necessary. Procedure Note Radiology, MD Rosalina - 09/17/2023 THIS EXAM WAS PERFORMED AT [facility] (Signed Final 09/17/2023 13:42) PATIENT INFO: ID #: [id number] : [birth year] (38 yrs)(F) Name: LAURA ALVES Visit Date: 09/17/2023 11:51 PERFORMED BY: Attending: Lizeth Jasso MD Performed By: Claire Menjivar RDMS Referred By: Bryan King. Address: [address] [place] [address] [place] [address] Location: [facility] [place] SERVICE(S) PROVIDED: Comprehensive Anatomic Survey 08253 OB Transvaginal 24137 INDICATIONS: Screening for anatomic survey Z36.89 Supervision of elderly (over 35 years), O09..519 antepartum Supervision of resulting from O09.819 assisted reproductive technology, antepartum Screening for cervical length Z36.86 VITAL SIGNS: Weight (lb): 246 Height: 5'7 BMI: 38.52 EVALUATION: Num Of Fetuses: 1 Heart Rate(bpm): 137 Cardiac Activity: Present appears normal Presentation: Breech Placenta: Anterior, low-lying Amniotic Fluid VONNIE FV: Subjectively within normal limits BIOMETRY: BPD: 49.8 mm G.Age: 21w 1d 34 % OFD: 66.3 mm HC: 186 mm G.Age: 21w 0d 20 % AC: 169.2 mm G.Age: 21w 6d 59 % FL: 34.3 mm G.Age: 20w 6d 20 % HUM: 32.6 mm G.Age: 21w 0d 36 % CER: 22.6 mm G.Age: 21w 1d 57 % NFT: 4.92 mm NB: 6.99 mm 42 % > 1 MoM CM: 5.1 mm TIB: 33.3 mm G.Age: 22w 2d 75 % CI: 75.1 % 70 - 86 FL/HC: 18.4 % 15.9 - 20.3 HC/AC: 1.10 1.06 - 1.25 FL/BPD: 68.9 % FL/AC: 20.3 % 20 - 24 Est. FW: 417 gm 0 lb 15 oz 40 % OB HISTORY: : 3 Term: 2 GESTATIONAL AGE: U/S Today: 21w 2d IFEANYI: 01/26/24 Best: 21w 3d Det. By: Embryo IFEANYI: 01/25/24 Transfer (05/09/23) TARGETED ANATOMY: Central Nervous System Calvarium/Cranial V.: Appears normal Intracranial Ama: Appears normal Cavum: Appears normal Lateral Ventricles: Not well visualized Choroid Plexus: Appears normal Cereb./Vermis: Not well visualized Cisterna Magna: Appears normal Midline Falx: Appears Normal Spine Cervical: Could not document Thoracic: Could not document Lumbar: Could not document Sacral: Could not document Head/Neck Face: Appears normal Lips: Appears normal Neck: Appears normal Nuchal Fold: Appears normal Nasal Bone: Present Palate: Could not document Profile: Appears normal Orbits/Eyes: Could not document Mandible: Could not document Maxilla: Could not document Thorax Thoracic Contour: Appears normal Lungs: Appears normal 4 Chamber View: Appears normal Cardiac Activity: Appears Normal Cardiac Rhythm: Normal Cardiac Situs: Appears normal Rt Outflow Tract: Not well visualized Lt Outflow Tract: Appears normal Aortic Arch: Appears normal Ductal Arch: Could not document SVC: Could not document Interventr. Septum: Appears Normal Cardiac Juniata: Appears normal Diaphragm: Appears normal 3 Vessel View: Appears normal 3 V Trachea View: Could not document IVC: Appears normal Abdomen Ventral Wall: Appears normal Cord Insertion: Appears normal Situs: Appears normal Stomach: Appears normal Lt Kidney: Appears normal Rt Kidney: Appears normal Bladder: Appears normal Extremities Lt Humerus: Appears normal Rt Humerus: Appears normal Lt Forearm: Appears normal Rt Forearm: Appears normal Lt Hand: Appears normal Rt Hand: Appears normal Lt Femur: Appears normal Rt Femur: Appears normal Lt Lower Leg: Appears normal Rt Lower Leg: Appears normal Lt Foot: Appears normal Rt Foot: Appears normal Other Umbilical Cord: Appears normal Masses: None visualized Genitalia: Female Comment: Abi told by EMELY, that the implanted embroy was XY. CERVIX UTERUS ADNEXA: Cervix Length: 3.2 cm. Appears closed, without funnelling Uterus Gravid uterus Right Ovary Not visualized Left Ovary Not visualized Cul De Sac No fluid seen Adnexa No adnexal masses identified COMMENTS: 1. Ultrasound is not diagnostic for chromosomal abnormalities, will not detect all structural abnormalities, and is not diagnostic for genetic disorders even if multiple exams are performed during a given . 2. In addition to the trans abdominal approach, a trans vaginal ultrasound was also performed to optimize the visualization of the lower uterine segment and the cervix. 2. anatomic survey is incomplete due to position. Lizeth Jasso MD Electronically Signed Final Report 09/17/2023 13:42 IMPRESSION: 1. Single intrauterine size consistent with dates. 2. Transvaginal Cervical Length measures 3.2 cm. 3. Anterior low lying placenta, measures 1.8cm from internal os. 4. genitalia are phenotypically female, though patient was informed that an XY 5day embryo had been implanted. RECOMMENDATIONS: 1. Please see [facility] consultation documentation from today's encounter. 2. Patient is scheduled in four weeks to complete the anatomic survey and echo. 3. Subsequent follow up or other follow up as clinically determined by primary OB provider unless otherwise specified by M. 4. Results forwarded to ordering provider so they can follow up with the patient as necessary. us Bryan Ospina DO IMG OB US PROCEDURES Final Resul t documented in this encounter Visit Diagnoses Not on filedocumented in this encounter Care Teams Forklift Driver Relationship Specialty Start Date End Date Irma Burt DO [address] [place] [phone] PCP - General Family Medicine 06/19/23 documented as of this encounter
--- OUTSIDE RECORDS SUMMARY | 2025-03-06 09:41 | XMS_ITS | Encounter Summary ---
Author Organization [facility] [employer] [facility] tem Address [id number] [address] [place] [address] Care Team Providers Care Table Cover Folder Name Role Phone No Pcp, No Pcp Primary Care Provider Unavailabl e Encounter Details Date Type Department Care Team (Late st Contact Info) Description 11/07/2023 Orders Only Maternal- Medicine at [facility] [address] [place] [phone] Janet Tiwari, JEAN Gestational diabetes mellitus (GDM) in third trimester, gestational diabetes method of control unspecified (Primary Dx) Social History Tobacco Use Types Packs/Day Years [...] got money to buy more. Never True 10/22/2023 Within the past 12 months th e food we bought just didn't last and we didn't have money to get more. Never True 10/22/2023 Purpose - Life Answer Date Recorded Purpose and direction in life Unknown Comments Yes Sex and Gender Information Value Date Recorded Sex Assigned at Not on file Legal Sex Female 2:05 PM EDT Gender Identity Not on file Sexual Orientation Not on file documented as of this encounter Plan of Treatment Not on file documented as of this encounter Visit Diagnoses Diagnosis Gestational diabetes mellitus (GDM) in third trimester, gestational diabetes method of control unspecified- Primary documented in this encounter Care Teams Table Cover Folder Relationship Specialty Start Date End Date No Pcp, [place] [address] PCP - General Family Medicine 11/18/20 documented as of this encounter
--- OUTSIDE RECORDS SUMMARY | 2025-03-06 09:41 | XMS_ITS | Clinical Summary ---
Author Organization [facility] [facility] Address [id number] [address] [place] [address] Care Team Providers Care Transactional Attorney Name Role Phone No Pcp, No Pcp Primary Care Provider Unavailabl e Allergies No known active allergies Medications levothyroxine (SYNTHROID, LEVOTHROID) 75 MCG tablet Take 1 tablet (75 mcg total) by mouth in the morning. Active aspirin 81 mg Take 1 tablet (81 mg total) by mouth in the morning. Active sertraline (ZOLOFT) 50 mg tablet Take 1 tablet (50 mg total) by mouth in the morning. Active vit,ruby 74/iron/folic ( VITAMIN 1+1 ORAL) Take by mouth. Activ e lipase-protease -amylase (CREON) 36,000-114,000- 180,000 unit capsule,delayed release(DR/EC) Take 1 capsule (36,000 units of lipase total) by mouth 3 (three) times a day. Active blood sugar diagnostic strip Check fingersticks 4 times daily, fasting and 1 hour postprandial 120 strip 6 4 Active lancets 30 gauge misc Check fingersticks 4 times daily, fasting and 1 hour postprandial with breakfast lunch and dinner 100 each 1 4 Active pen needle, diabetic (BD ULTRA-FINE LELAND PEN NEEDLE) 32 gauge x 5/32 needle Use a new needle with each injection 5 times daily 100 each 3 4 Active insulin lispro (HumaLOG) 100 unit/mL insulin pen Inject 5 units before breakfast, 4 units before lunch, 7 units before dinner 15 mL 1 4 Active insulin glargine (LANTUS SOLOSTAR U-100 INSULIN) 100 unit/mL (3 mL) insulin pen INJECT 10 UNITS UNDER THE SKIN ONCE DAILY DIRECTED. PRIME WITH 2 UNITS 15 mL 3 4 Active cyanocobalamin (VITAMIN B12) 1,000 mcg tablet, sublingual PLACE 1 TABLET (1,000 MCG TOTAL) UNDER THE TONGUE IN THE MORNING. 90 tablet 1 4 Active ferrous sulfate 325 (65 FE) MG tablet TAKE 1 TABLET BY MOUTH EVERY DAY WITH BREAKFAST 90 tablet 1 5 Active Active Problems Problem Noted Date Diagnosed Date Insulin controlled gestation al diabetes mellitus (GDM) in third trimester 11/14/2023 Hx of preeclampsia, prior , currently p regnant 11/14/2023 Encounters Date Type Department Care Team Description 12/12/2024 Refill Maternal- Medicine at [facility] [address] [place] [address] Lizeth Jasso MD from Last 3 Months Family History Medical History Relation Name Comments Hypertension Father Relation Name Status Comments Father Social History Tobacco Use Types Packs/Day Years Used Date Smoking Tobacco: Former Vaping/E-cigarettes Smokeless Tobacco: Never Tobacco Cessation:Counseling Given: Not Answered Alcohol Use Standard Drinks/Week Comments Not Currently [...] on file Sexual Orientation Not on file Last Filed Vital Signs Vital Sign Reading Time Taken Comments Blood Pressure 125/78 11/30/2023 1:54 PM EDT Pulse 106 11/30/2023 1:54 PM EDT Temperature 36.8 C (98.3 F) 05/29/2018 11:41 PM EST Respiratory Rate 20 05/29/2018 11:4 1 PM EST Oxygen Saturation 100% 05/29/2018 11: 41 PM EST Inhaled Oxygen Concentration - - Weight 116.9 kg (257 lb 12.8 oz) 11/30/2023 1:54 PM EDT Height 170.2 cm (5' 7.01 ) 11/30/2023 1:54 PM ED T Body Mass Index 40.37 11/30/2023 1:54 PM EDT Plan of Treatment Health Maintenance Due Date Last Done Comments Depression Screening 1997 Pap Smear 2006 Adult BMI Screening 11/29/2024 11/30/2023 Tobacco Screening 11/29/2024 11/30/2023 Influenza Vaccine 01/19/2025 04/20/2024, , 02/03/2020, Additional history exists DTaP,Tdap and Td Vaccines (3 - Td or Tdap) 01/18/2026 01/19/2016, 04/07/2013 COVID-19 Vaccine Completed 04/20/2024, 01/2024, 12/14/2020, Additional history exists [employer] Not on file Insurance [place] [address] [employer] Care Teams Transactional Attorney Relationship Specialty Start Date End Date No Pcp, [place] [address] PCP - General Family Medicine 11/18/20
--- OUTSIDE RECORDS SUMMARY | 2025-03-06 09:41 | XMS_ITS | Encounter Summary ---
Author Organization [facility] tem Address [id number] [address] [place] [address] Care Team Providers Care Educational Recruiter Name Role Phone No Pcp, No Pcp Primary Care Provider Unavailabl e Encounter Details Date Type Department Care Team (Late st Contact Info) Description 09/17/2023 Telephone Maternal- Medicine at [facility] [address] [facility] [place] [phone] Whitney Russo, RN Social History Tobacco Use Types Packs/Day Years [...] got money to buy more. Never True 09/17/2023 Within the past 12 months th e food we bought just didn't last and we didn't have money to get more. Never True 09/17/2023 Purpose - Life Answer Date Recorded Purpose and direction in life Unknown Comments Yes Sex and Gender Information Value Date Recorded Sex Assigned at Not on file Legal Sex Female 2:05 PM EDT Gender Identity Not on file Sexual Orientation Not on file documented as of this encounter Miscellaneous Notes * Telephone Encounter - Whitney Russo RN - 09/17/2023 3:25 PM EDT Patient's Iron/B [address] labs came back low[address] Jasso put in order for Vitamin B 12 and Iron supplementation. Patient notified through VM. documented in this encounter Plan of Treatment Not on file documented as of this encounter Visit Diagnoses Not on filedocumented in this encounter Care Teams Educational Recruiter Relationship Specialty Start Date End Date No Pcp, [place] [address] PCP - General Family Medicine 11/18/20 documented as of this encounter
--- OUTSIDE RECORDS SUMMARY | 2025-03-06 09:41 | XMS_ITS | Encounter Summary ---
Author Organization [facility] Address [address] [place] [address] Care Team Providers Care Windows Software Engineer Name Role Phone Irma Burt DO Primary Care Provider [phone] Encounter Details Date Type Department Care Team (Late st Contact Info) Description 08/26/2024 Orders Only [facility] [place] [facility] [address] [place] [address] Ebonie Oneil LPN [address] [place] [id number] Social History Tobacco Use Types Packs/Day Years Used Date Smoking Tobacco: Never Assessed Comments Unknown Sex and Gender Information Value Date Recorded Sex Assigned at Not on file Legal Sex Female 9:54 AM EST Gender Identity Not on file Sexual Orientation Not on file documented as of this encounter Plan of Treatment Not on file documented as of this encounter Procedures Procedure Name Priority Date/Time Associated Diagnosis Comments PAP SMEAR Routine 08/18/2024 12:00 AM EDT documented in this encounter Results * Pap Smear (08/18/2024 12:00 AM EDT) Swab Cervical swab / Unknown us Anai Nurse [facility] CYTOLOGY ORDERABLES Final Result EXTERNAL LAB documented in this encounter Visit Diagnoses Not on filedocumented in this encounter Care Teams Windows Software Engineer Relationship Specialty Start Date End Date Irma Burt DO [address] [place] [phone] PCP - General Family Medicine 06/19/23 documented as of this encounter
--- OUTSIDE RECORDS SUMMARY | 2025-03-06 09:41 | XMS_ITS | Encounter Summary ---
Author Organization [facility] Address [address] [place] [address] Care Team Providers Care Automotive Worker Foreman Name Role Phone SantizoIrma schwab DO Primary Care Provider [phone] Encounter Details Date Type Department Care Team (Late st Contact Info) Description 01/07/2024 Clinisync Result Encounter [facility] External Department Unsolicited Sagar Ospina DO [address] [facility] [address] [place], [place] [phone] Social History Tobacco Use Types Packs/Day Years [...] Diagnosis Comments US OB BPP W NON-STRESS 01/07/2024 1:58 PM EDT documented in this encounter Results * US OB BPP W NON-STRESS (01/07/2024 1:58 PM EDT) Anatomical Region Laterality Modality Other 01/07/2024 1:58 PM EDT Narrative 01/07/2024 2:01 PM EDT The [address] [address] Ultrasound Report Signed Patient: LAURA ALVES MR#: [id number] : 1985 Acct:[id number] Age/Sex: 38 / F ADM Date: 01/07/24 Loc: [facility] 255-[address]: Sagar Ospina D.O. Ordering Physician: Sagar Ospina D.O. Date of Service: 01/07/24 Procedure(s): US OB BPP w non-stress Accession Number(s): [id number] cc: IRMA SANTIZO ; Sagar Ospina D.O. The [place] [id number] Patient Name: LAURA ALVES MRN: [id number] date: 1985 Sex: F Assigned Patient Location: [facility] Current Patient Location: [facility] Accession/Order Number: [id number] Exam Date: 01/07/2024 12:15 Report Date: 01/07/2024 13:58 At the request of: SAGAR OSPINA Procedure: US OB BPP w non-stress EXAMINATION: US OB BPP w non-stress HISTORY: ADVANCED MATERNAL AGE COMPARISON: No relevant comparison available. TECHNIQUE: Ultrasound biophysical profile was performed in the radiology department. non-reactive stress testing was performed by nursing staff in the birthing center. FINDINGS: BREATHING MOVEMENTS: 2 GROSS BODY MOVEMENTS: 2 TONE: 2 QUALITATIVE AMNIOTIC FLUID VOLUME: 2 PRESENTATION: CEPHALIC HEART RATE: 160.71 bpm AMNIOTIC FLUID VOLUME: 27.3 cm GESTATIONAL AGE: 37 weeks 3 days US/US OB BPP w non-stress IMPRESSION: Total biophysical profile score: 8 Electronically authenticated by: MUSTAPHA COLES Date: 01/07/2024 13:58 Dictated By: Mustapha Coles M.D. Signed By: 01/07/24 1401 DD/ 1358 TD/TT: Bobbin Marker: Procedure Note Radiology, Radiologist, MD - 01/07/2024 [place] [address] Ultrasound Report Signed Patient: LAURA ALVES KMR#: [id number] : 1985Acct:[id number] Age/Sex: 38 / FADM Date: 01/07/24 Loc: [facility] 255-[address]: Sagar Ospina D.O. Ordering Physician: Sagar Ospina D.O. Date of Service: 01/07/24 Procedure(s): US OB BPP w non-stress Accession Number(s): [id number] cc: IRMA SANTIZO ; Sagar Ospina D.O. [place] [address] Patient Name: LAURA ALVES MRN: [facility]:[id number] date: 1985 Sex: F Assigned Patient Location: [facility] Current Patient Location: [facility] Accession/Order Number: [id number] Exam Date: 01/07/2024 12:15 Report Date: 01/07/2024 13:58 At the request of: SAGAR OSPINA Procedure: US OB BPP w non-stress EXAMINATION: US OB BPP w non-stress HISTORY: ADVANCED MATERNAL AGE COMPARISON: No relevant comparison available. TECHNIQUE: Ultrasound biophysical profile was performed in the radiology department. non-reactive stress testing was performed by nursingstaff in the birthing center. FINDINGS: BREATHING MOVEMENTS: 2 GROSS BODY MOVEMENTS: 2 TONE: 2 QUALITATIVE AMNIOTIC FLUID VOLUME: 2 PRESENTATION: CEPHALIC HEART RATE: 160.71 bpm AMNIOTIC FLUID VOLUME: 27.3 cm GESTATIONAL AGE: 37 weeks 3 days US/US OB BPP w non-stress IMPRESSION: Total biophysical profile score: 8 Electronically authenticated by: MUSTAPHA COLES Date: 01/07/2024 13:58 Dictated By: Mustapha Coles M.D. Signed By:01/07/24 1401 DD/ 1358 TD/TT: Bobbin Marker: us Sagar Ospina DO [facility] Final Result documented in this encounter Visit Diagnoses Not on filedocumented in this encounter Care Teams Automotive Worker Foreman Relationship Specialty Start Date End Date Irma Santizo DO Ricky Calvo [facility] [place] [address] PCP - General Family Medicine 06/19/23 documented as of this encounter
--- OUTSIDE RECORDS SUMMARY | 2025-03-06 09:42 | XMS_ITS | Encounter Summary ---
Author Organization [facility] Address [address] [place] [address] Care Team Providers Care Rn Transfer Name Role Phone Irma Santizo DO Primary Care Provider [phone] Encounter Details Date Type Department Care Team (Late st Contact Info) Description 12/17/2023 Clinisync Result Encounter [facility]OMS External Department Unsolicited Sagar Ospina DO [address] [facility] [address] [place], [place] [phone] Social History Tobacco Use Types Packs/Day Years [...] Diagnosis Comments US OB BPP W NON-STRESS 12/17/2023 2:36 PM EDT documented in this encounter Results * US OB BPP W NON-STRESS (12/17/2023 2:36 PM EDT) Anatomical Region Laterality Modality Other 12/17/2023 2:36 PM EDT Narrative 12/17/2023 2:38 PM EDT The [address] [address] Ultrasound Report Signed Patient: LAURA ALVES MR#: [id number] : 1985 Acct:[id number] Age/Sex: 38 / F ADM Date: 12/17/23 Loc: [facility] 250-[address]: Sagar Ospina D.O. Ordering Physician: Sagar Ospina D.O. Date of Service: 12/17/23 Procedure(s): US OB BPP w non-stress Accession Number(s): [id number] cc: IRMA SANTIZO ; Sagar Ospina D.O. The [place] [phone] Patient Name: LAURA ALVES MRN: [id number] date: 1985 Sex: F Assigned Patient Location: [facility] Current Patient Location: [facility] Accession/Order Number: [id number] Exam Date: 12/17/2023 13:56 Report Date: 12/17/2023 14:36 At the request of: SAGAR OSPINA Procedure: US OB BPP w non-stress EXAMINATION: US OB BPP w non-stress HISTORY:Multigravida of advanced maternal age O09.523 COMPARISON: Ultrasound OB biophysical 12/09/2023 TECHNIQUE: Ultrasound biophysical profile was performed in the radiology department. BREATHING MOVEMENTS: 2 GROSS BODY MOVEMENTS: 2 TONE: 2 QUALITATIVE AMNIOTIC FLUID VOLUME: 2 PRESENTATION: CEPHALIC HEART RATE: 168.75 bpm AMNIOTIC FLUID VOLUME: 23.28 cm GESTATIONAL AGE: 34 weeks 3 days US/US OB BPP w non-stress IMPRESSION: Total biophysical profile score: 8 Electronically authenticated by: HUGO BEAR Date: 12/17/2023 14:36 Dictated By: Hugo Bear M.D. Signed By: 12/17/23 1438 DD/ 1436 TD/TT: Conveyor Line Bakery Worker: Procedure Note Radiology, Radiologist, MD - 12/17/2023 [place] [address] Ultrasound Report Signed Patient: LAURA ALVES KMR#: [id number] : 1985Acct:[id number] Age/Sex: 38 / FADM Date: 12/17/23 Loc: [facility] 250-[address]: Sagar Ospina D.O. Ordering Physician: Sagar Ospina D.O. Date of Service: 12/17/23 Procedure(s): US OB BPP w non-stress Accession Number(s): [id number] cc: IRMA SANTIZO ; Sagar Ospina D.O. [place] [id number] Patient Name: LAURA ALVES MRN: [facility]:[id number] date: 1985 Sex: F Assigned Patient Location: [facility] Current Patient Location: [facility] Accession/Order Number: [id number] Exam Date: 12/17/2023 13:56 Report Date: 12/17/2023 14:36 At the request of: SAGAR OSPINA Procedure: US OB BPP w non-stress EXAMINATION: US OB BPP w non-stress HISTORY:Multigravida of advanced maternal age O09.523 COMPARISON: Ultrasound OB biophysical 12/09/2023 TECHNIQUE: Ultrasound biophysical profile was performed in the radiology department. BREATHING MOVEMENTS: 2 GROSS BODY MOVEMENTS: 2 TONE: 2 QUALITATIVE AMNIOTIC FLUID VOLUME: 2 PRESENTATION: CEPHALIC HEART RATE: 168.75 bpm AMNIOTIC FLUID VOLUME: 23.28 cm GESTATIONAL AGE: 34 weeks 3 days US/US OB BPP w non-stress IMPRESSION: Total biophysical profile score: 8 Electronically authenticated by: HUGO BEAR Date: 12/17/2023 14:36 Dictated By: Hugo Bear M.D. Signed By:12/17/23 1438 DD/ TD/TT: Conveyor Line Bakery Worker: us Sagar Ospina DO [facility] Final Result documented in this encounter Visit Diagnoses Not on filedocumented in this encounter Care Teams Rn Transfer Relationship Specialty Start Date End Date Ir[place] [address] PCP - General Family Medicine 06/19/23 documented as of this encounter
--- OUTSIDE RECORDS SUMMARY | 2025-03-06 09:42 | XMS_ITS | Encounter Summary ---
Author Organization [facility] Address [address] [place] [address] Care Team Providers Care Protocol Manager Name Role Phone Irma Santizo DO Primary Care Provider [phone] Encounter Details Date Type Department Care Team (Late st Contact Info) Description 01/03/2024 Clinisync Result Encounter [facility] External Department Unsolicited Sagar Ospina DO [address] [facility] [address] [place], [place] [address] Social History Tobacco Use Types Packs/Day Years [...] Priority Date/Time Associated Diagnosis Comments US OB GROWTH 01/03/2024 12:59 PM EDT documented in this encounter Results * US OB GROWTH (01/03/2024 12:59 PM EDT) Anatomical Region Laterality Modality Other 01/03/2024 12:5 9 PM EDT Narrative 01/03/2024 1:02 PM EDT The [facility] [address] [place] [address] Ultrasound Report Signed Patient: LAURA ALVES MR#: [id number] : 1985 Acct:[id number] Age/Sex: 38 / F ADM Date: 01/03/24 Loc: [facility] 250-[address]: Sagar Ospina D.O. Ordering Physician: Sagar Ospina D.O. Date of Service: 01/03/24 Procedure(s): US OB growth Accession Number(s): [id number] cc: IRMA SANTIZO ; Sagar Ospina D.O. [address] [address] Patient Name: LAURA ALVES MRN: [facility]:[id number] date: 1985 Sex: F Assigned Patient Location: [facility] Current Patient Location: [facility] Accession/Order Number: [id number] Exam Date: 01/03/2024 12:00 Report Date: 01/03/2024 12:59 At the request of: SAGAR OSPINA Procedure: US OB growth EXAMINATION: US OB growth HISTORY: Excessive growth COMPARISON: Ultrasound OB biophysical 12/31/2023 FINDINGS: Heart Rate: 140.63 bpm Amniotic Fluid Volume: 24.9 cm; at 95th percentile. Number: 1 Position: CEPHALIC BIOMETRY: BPD: 9.43 cm; 30 weeks 3 days; 93.60 % HC: 34.62 cm; 40 weeks 1 day; 91.30 % AC: 35.09 cm; 39 weeks 1 day; >97 % FL: 6.78 cm; 34 weeks 6 days; 7.80 % EFW: 3407.10 g; 85.90 % FL/AC: 19.33 FL/BPD: 71.90 HC/AC: 0.99 GESTATIONAL AGE: Age by EDC: 36 weeks 6 days IFEANYI by EDC: 2024-01-25 Age by US: 38 weeks 1 day IFEANYI by US: 2024-01-16 US/US OB growth IMPRESSION: 1. Single live intrauterine with growth detailed above. 2. Abdominal circumference is greater than 97th percentile. 3. Amniotic fluid volume is at the 95th percentile. Electronically authenticated by: HUGO BEAR Date: 01/03/2024 12:59 Dictated By: Hugo Bear M.D. Signed By: 01/03/24 130 DD/ 1252 TD/TT: Home Economist: Procedure Note Radiology, Radiologist, - 01/03/2024 [place] [address] Ultrasound Report Signed Patient: LAURA ALVES KMR#: [id number] : 1985Acct:[id number] Age/Sex: 38 / FADM Date: 01/03/24 Loc: [facility] 250-[address]: Sagar Ospina D.O. Ordering Physician: Sagar Ospina D.O. Date of Service: 01/03/24 Procedure(s): US OB growth Accession Number(s): [id number] cc: IRMA SANTIZO ; Sagar Ospina D.O. The [place] [address] Patient Name: LAURA ALVES MRN: [id number] date: 1985 Sex: F Assigned Patient Location: [facility] Current Patient Location: [facility] Accession/Order Number: [id number] Exam Date: 01/03/2024 12:00 Report Date: 01/03/2024 12:59 At the request of: SAGAR OSPINA Procedure: US OB growth EXAMINATION: US OB growth HISTORY: Excessive growth COMPARISON: Ultrasound OB biophysical 12/31/2023 FINDINGS: Heart Rate: 140.63 bpm Amniotic Fluid Volume: 24.9 cm; at 95th percentile. Number: 1 Position: CEPHALIC BIOMETRY: BPD: 9.43 cm; 30 weeks 3 days; 93.60 % HC: 34.62 cm; 40 weeks 1 day; 91.30 % AC: 35.09 cm; 39 weeks 1 day; >97 % FL: 6.78 cm; 34 weeks 6 days; 7.80 % EFW: 3407.10 g; 85.90 % FL/AC: 19.33 FL/BPD: 71.90 HC/AC: 0.99 GESTATIONAL AGE: Age by EDC: 36 weeks 6 days IFEANYI by EDC: 2024-01-25 Age by US: 38 weeks 1 day IFEANYI by US: 2024-01-16 US/US OB growth IMPRESSION: 1. Single live intrauterine with growth detailed above. 2. Abdominal circumference is greater than 97th percentile. 3. Amniotic fluid volume is at the 95th percentile. Electronically authenticated by: HUGO BEAR Date: 01/03/2024 12:59 Dictated By: Hugo Bear M.D. Signed By:01/03/24 1302 DD/ 1259 TD/TT: Home Economist: us Sagar Anai DO [facility] Final Result documented in this encounter Visit Diagnoses Not on filedocumented in this encounter Care Teams Protocol Manager Relationship Specialty Start Date End Date Irma Santizo DO [address] [facility] [place] [phone] PCP - General Family Medicine 06/19/23 documented as of this encounter
--- OUTSIDE RECORDS SUMMARY | 2025-03-06 09:42 | XMS_ITS | Encounter Summary ---
Author Organization [facility] Address [address] [place] [place] [address] Care Team Providers Care Congressional District Aide Name Role Phone Irma Burt DO Primary Care Provider [phone] Encounter Details Date Type Department Care Team (Late st Contact Info) Description 12/27/2023 Abstract [facility] [address] [facility] [place] [phone] Bryan Ospina DO [address] [facility] [address] [place] [phone] Social History Tobacco Use Types Packs/Day Years [...] on filedocumented in this encounter Care Teams Congressional District Aide Relationship Specialty Start Date End Date Irma Burt DO [address] [place] [phone] PCP - General Family Medicine 06/19/23 documented as of this encounter
--- OUTSIDE RECORDS SUMMARY | 2025-03-06 09:42 | XMS_ITS | Encounter Summary ---
Author Organization [facility] Address [address] [place] [address] Care Team Providers Care Tubing Machine Tender Name Role Phone Irma Burt DO Primary Care Provider [phone] Encounter Details Date Type Department Care Team (Late st Contact Info) Description 12/24/2023 Abstract [facility] [address] [place] [phone] Ebonie Oneil LPN [address] [facility] [place] [id number] Social History Tobacco Use Types Packs/Day Years [...] on filedocumented in this encounter Care Teams Tubing Machine Tender Relationship Specialty Start Date End Date Irma Burt DO [address] [place] [phone] PCP - General Family Medicine 06/19/23 documented as of this encounter
--- OUTSIDE RECORDS SUMMARY | 2025-03-06 09:42 | XMS_ITS | Encounter Summary ---
Author Organization [facility] Address [address] [place] [address] Care Team Providers Care Business Database Analyst Name Role Phone Irma Santizo DO Primary Care Provider [phone] Encounter Details Date Type Department Care Team (Late st Contact Info) Description 12/03/2023 Clinisync Result Encounter NOMS External Department Unsolicited Sagar Ospina DO [address] [facility] [address] [place], [place] [address] Social History Tobacco Use Types Packs/Day Years [...] Diagnosis Comments US OB BPP W NON-STRESS 12/03/2023 3:11 PM EDT documented in this encounter Results * US OB BPP W NON-STRESS (12/03/2023 3:11 PM EDT) Anatomical Region Laterality Modality Other 12/03/2023 3:11 PM EDT Narrative 12/03/2023 3:13 PM EDT The [address] [address] Ultrasound Report Signed Patient: LAURA ALVES MR#: [id number] : 1985 Acct:[id number] Age/Sex: 38 / F ADM Date: 12/03/23 Loc: US Attending Dr: Sagar Ospina D.O. Ordering Physician: Sagar Ospina D.O. Date of Service: 12/03/23 Procedure(s): US OB BPP w non-stress Accession Number(s): [id number] cc: IRMA SANTIZO ; Sagar Ospina D.O. The [place] [phone] Patient Name: LAURA ALVES MRN: [facility]:[id number] date: 1985 Sex: F Assigned Patient Location: [facility] Current Patient Location: Accession/Order Number: [id number] Exam Date: 12/03/2023 13:40 Report Date: 12/03/2023 15:11 At the request of: SAGAR OSPINA Procedure: US OB BPP w non-stress EXAMINATION: US OB BPP w non-stress HISTORY: Multigravida of advanced maternal age O09.523 COMPARISON: No relevant comparison available. TECHNIQUE: Ultrasound biophysical profile was performed in the radiology department. FINDINGS: BREATHING MOVEMENTS: 2 GROSS BODY MOVEMENTS: 2 TONE: 2 QUALITATIVE AMNIOTIC FLUID VOLUME: 2 PRESENTATION: CEPHALIC HEART RATE: 140.63 bpm AMNIOTIC FLUID VOLUME: 20.6 cm GESTATIONAL AGE: 32 weeks 3 days US/US OB BPP w non-stress IMPRESSION: Total biophysical profile score: 8 Electronically authenticated by: MUSTAPHA COLES Date: 12/03/2023 15:11 Dictated By: Mustapha Coles M.D. Signed By: 12/03/231512 DD/ 151 TD/TT: Steel Erector: Procedure Note Radiology, Radiologist, MD - 12/03/2023 [place] [address] Ultrasound Report Signed Patient: LAURA ALVES KMR#: [id number] : 1985Acct:[id number] Age/Sex: 38 / FADM Date: 12/03/23 Loc: US Attending Dr: Sagar Ospina D.O. Ordering Physician: Sagar Ospina D.O. Date of Service: 12/03/23 Procedure(s): US OB BPP w non-stress Accession Number(s): [id number] cc: IRMA SANTIZO ; Sagar Ospina D.O. [address] [address] Patient Name: LAURA ALVES MRN: [id number] date: 1985 Sex: F Assigned Patient Location: [facility] Current Patient Location: Accession/Order Number: [id number] Exam Date: 12/03/2023 13:40 Report Date: 12/03/2023 15:11 At the request of: SAGAR OSPINA Procedure: US OB BPP w non-stress EXAMINATION: US OB BPP w non-stress HISTORY: Multigravida of advanced maternal age O09.523 COMPARISON: No relevant comparison available. TECHNIQUE: Ultrasound biophysical profile was performed in the radiology department. FINDINGS: BREATHING MOVEMENTS: 2 GROSS BODY MOVEMENTS: 2 TONE: 2 QUALITATIVE AMNIOTIC FLUID VOLUME: 2 PRESENTATION: CEPHALIC HEART RATE: 140.63 bpm AMNIOTIC FLUID VOLUME: 20.6 cm GESTATIONAL AGE: 32 weeks 3 days US/US OB BPP w non-stress IMPRESSION: Total biophysical profile score: 8 Electronically authenticated by: MUSTAPHA COLES Date: 12/03/2023 15:11 Dictated By: Mustapha Coles M.D. Signed By:12/03/23 1513 DD/ 10 TD/TT: Steel Erector: Sagar Ospina DO [facility] Final Result documented in this encounter Visit Diagnoses Not on filedocumented in this encounter Care Teams Business Database Analyst Relationship Specialty Start Date End Date Irma Santizo DO [address] [place] [phone] PCP - General Family Medicine 06/19/23 documented as of this encounter
--- OUTSIDE RECORDS SUMMARY | 2025-03-06 09:42 | XMS_ITS | Encounter Summary ---
Author Organization [facility] Address [address] [place] [address] Care Team Providers Care Composition Board Press Operator Name Role Phone Irma Burt DO Primary Care Provider Encounter Details Date Type Department Care Team (Late st Contact Info) Description 01/04/2024 Abstract [facility] [address] [facility] [place] [phone] Bryan Ospina DO [address] [facility] [address] [place] [phone] Social History Tobacco Use Types Packs/Day Years [...] on filedocumented in this encounter Care Teams Composition Board Press Operator Relationship Specialty Start Date End Date Irma Burt DO [address] [place] [phone] PCP - General Family Medicine 06/19/23 documented as of this encounter
--- OUTSIDE RECORDS SUMMARY | 2025-03-06 09:42 | XMS_ITS | Clinical Summary ---
Author Organization [facility] Address [address] [place] [address] Care Team Providers Care Life Science Technical Officer Name Role Phone Irma Burt DO Primary Care Provider [phone] Allergies No known active allergies Medications sertraline (Zoloft) 50 MG tablet TAKE 1.5 TABLET BY MOUTH EVERY DAY DIRECTED 04/06/2023 Active Creon 36714-166768 units capsule delayed-release particles capsule TAKE 2 CAPSULES BY MOUTH 3 TIMES A DAY WITH MEALS AND/OR SNACKS 11/18/2023 Active ferrous sulfate 325 (65 Fe) MG tablet Take 1 tablet by mouth in the morning. Take with meals. 11/12/2023 Active Cyanocobalamin (B-12) [address] 1 TABLET (1,000 MCG TOTAL) UNDER THE TONGUE IN THE MORNING. Active Social History Tobacco Use Types Packs/Day Years Used Date Smoking Tobacco: Never Assessed Comments Unknown Sex and Gender Information Value Date Recorded Sex Assigned at Not on file Legal Sex Female 9:54 AM EST Gender Identity Not on file Sexual Orientation Not on file Last Filed Vital Signs Vital Sign Reading Time Taken Comments Blood Pressure 110/64 08/18/2024 2:21 PM EDT Pulse - - Temperature - - Respiratory Rate - - Oxygen Saturation - - Inhaled Oxygen Concentration - - Weight 111 kg (245 lb 4 oz) 08/18/2024 2:21 PM E DT Height - - Body Mass Index - - Plan of Treatment Health Maintenance Due Date Last Done Comments Influenza Vaccine (#1) 2025 4, 04/09/2023, 02/03/2020, Additional history exists Pap Smear 08/19/2027 08/18/2024, 08/15/2023 Cervical Cancer Screening 08/14/2028 HPV/Cotest 08/14/2028 Procedures Procedure Name Priority Date/Time Associated Diagnosis Comments PAP SMEAR Routine 08/18/2024 12:00 AM EDT from Last 3 Months or Most Recently Relevant to Health Maintenance Results * Pap Smear (08/18/2024 12:00 AM EDT) Swab Cervical swab / Unknown us Anai Nurse [facility] Ob LAB CYTOLOGY ORDERABLES Final Result EXTERNAL LAB from Last 3 Months or Most Recently Relevant to Health Maintenance Insurance [facility] Care Teams Life Science Technical Officer Relationship Specialty Start Date End Date Irma Burt DO [address] [place] [address] PCP - General Family Medicine 06/19/23
--- OUTSIDE RECORDS SUMMARY | 2025-03-06 09:42 | XMS_ITS | Encounter Summary ---
Author Organization [facility] Address [address] [place] [address] Care Team Providers Care Emblem Drawer In Name Role Phone Irma Burt DO Primary Care Provider [phone] Encounter Details Date Type Department Care Team (Late st Contact Info) Description 12/10/2023 Abstract [facility] [address] [facility] [place] [phone] Bryan Ospina DO [address] [facility] [address] [place] [phone] Social History Tobacco Use Types Packs/Day Years [...] on filedocumented in this encounter Care Teams Emblem Drawer In Relationship Specialty Start Date End Date Irma Burt DO [address] [place] [phone] PCP - General Family Medicine 06/19/23 documented as of this encounter
--- OUTSIDE RECORDS SUMMARY | 2025-03-06 09:42 | XMS_ITS | Encounter Summary ---
Author Organization [facility] Address [address] [place] [address] Care Team Providers Care Cut Off Operator Scorer Name Role Phone Irma Burt DO Primary Care Provider [phone] Encounter Details Date Type Department Care Team (Late st Contact Info) Description 01/04/2024 Abstract [facility] [address] [facility] [place] [phone] Bryan Ospina DO [address] [facility] [address] [place] [phone] Social History Tobacco Use Types Packs/Day Years [...] filedocumented in this encounter Care Teams Cut Off Operator Scorer Relationship Specialty Start Date End Date Irma Burt DO [address] [place] [phone] PCP - General Family Medicine 06/19/23 documented as of this encounter
--- OUTSIDE RECORDS SUMMARY | 2025-03-06 09:42 | XMS_ITS | Encounter Summary ---
Author Organization [facility] Address [address] [place] [address] Care Team Providers Care Capping Machine Operator Name Role Phone Irma Burt DO Primary Care Provider [phone] Encounter Details Date Type Department Care Team (Late st Contact Info) Description 12/03/2023 Abstract [facility] [address] [place] [id number] Ebonie Oneil LPN [address] [facility] [place] [id number] Social History Tobacco Use Types Packs/Day Years [...] on filedocumented in this encounter Care Teams Capping Machine Operator Relationship Specialty Start Date End Date Irma Burt DO [address] [place] [id number] PCP - General Family Medicine 06/19/23 documented as of this encounter
--- OUTSIDE RECORDS SUMMARY | 2025-03-06 09:42 | XMS_ITS | Encounter Summary ---
Author Organization [facility] Address [address] [place] [address] Care Team Providers Care Lug Breaker And Wire Puller Name Role Phone Irma Santizo DO Primary Care Provider [phone] Encounter Details Date Type Department Care Team (Late st Contact Info) Description 12/24/2023 Clinisync Result Encounter [facility] External Department Unsolicited Sagar Ospina DO [address] [facility] [address] [place], [place] [id number] Social History Tobacco Use Types Packs/Day Years [...] Diagnosis Comments US OB BPP W NON-STRESS 12/24/2023 2:51 PM EDT documented in this encounter Results * US OB BPP W NON-STRESS (12/24/2023 2:51 PM EDT) Anatomical Region Laterality Modality Other 12/24/2023 2:51 PM EDT Narrative 12/24/2023 2:54 PM EDT The [address] [address] Ultrasound Report Signed Patient: LAURA ALVES MR#: [id number] : 1985 Acct:[id number] Age/Sex: 38 / F ADM Date: 12/24/23 Loc: [facility] 250-[address]: Sagar Ospina D.O. Ordering Physician: Sagar Ospina D.O. Date of Service: 12/24/23 Procedure(s): US OB BPP w non-stress Accession Number(s): [id number] cc: IRMA SANTIZO ; Sagar Ospina D.O. The [place] [id number] Patient Name: LAURA ALVES MRN: [id number]:[id number] date: 1985 Sex: F Assigned Patient Location: [facility] Current Patient Location: [facility] Accession/Order Number: [id number] Exam Date: 12/24/2023 14:00 Report Date: 12/24/2023 14:51 At the request of: SAGAR OSPINA Procedure: US OB BPP w non-stress EXAMINATION: US OB BPP w non-stress HISTORY:Multigravida of advanced maternal age COMPARISON: Ultrasound OB biophysical 12/17/2023 TECHNIQUE: Ultrasound biophysical profile was performed in the radiology department. BREATHING MOVEMENTS: 2 GROSS BODY MOVEMENTS: 2 TONE: 2 QUALITATIVE AMNIOTIC FLUID VOLUME: 2 PRESENTATION: CEPHALIC HEART RATE: 138.46 bpm AMNIOTIC FLUID VOLUME: 28.10 cm (95th percentile is 24.9 cm) GESTATIONAL AGE: 35 weeks 3 days US/US OB BPP w non-stress IMPRESSION: 1. Total biophysical profile score: 8 2.Knotted umbilical cord. Patent blood flow. Electronically authenticated by: HUGO BEAR Date: 12/24/2023 14:51 Dictated By: Hugo Bear M.D. Signed By: 12/24/23 1454 DD/ 1451 TD/TT: Business Process Architect: Procedure Note Radiology, Radiologist, MD - 12/24/2023 [place] [address] Ultrasound Report Signed Patient: LAURA ALVES KMR#: [id number] : 1985Acct:[id number] Age/Sex: 38 / FADM Date: 12/24/23 Loc: [facility] 250-[address]: Sagar Ospina D.O. Ordering Physician: Sagar Ospina D.O. Date of Service: 12/24/23 Procedure(s): US OB BPP w non-stress Accession Number(s): [id number] cc: IRMA SANTIZO ; Sagar Ospina D.O. [place] [id number] Patient Name: LAURA ALVES MRN: [id number]:[id number] date: 1985 Sex: F Assigned Patient Location: [facility] Current Patient Location: [facility] Accession/Order Number: [id number] Exam Date: 12/24/2023 14:00 Report Date: 12/24/2023 14:51 At the request of: SAGAR OSPINA Procedure: US OB BPP w non-stress EXAMINATION: US OB BPP w non-stress HISTORY:Multigravida of advanced maternal age COMPARISON: Ultrasound OB biophysical 12/17/2023 TECHNIQUE: Ultrasound biophysical profile was performed in the radiology department. BREATHING MOVEMENTS: 2 GROSS BODY MOVEMENTS: 2 TONE: 2 QUALITATIVE AMNIOTIC FLUID VOLUME: 2 PRESENTATION: CEPHALIC HEART RATE: 138.46 bpm AMNIOTIC FLUID VOLUME: 28.10 cm (95th percentile is 24.9 cm) GESTATIONAL AGE: 35 weeks 3 days US/US OB BPP w non-stress IMPRESSION: 1. Total biophysical profile score: 8 2.Knotted umbilical cord. Patent blood flow. Electronically authenticated by: HUGO BEAR Date: 12/24/2023 14:51 Dictated By: Hugo Bear M.D. Signed By:12/24/23 1454 DD/ 145 TD/TT: Business Process Architect: Sagar Ospina DO [facility] Final Result documented in this encounter Visit Diagnoses Not on filedocumented in this encounter Care Teams Lug Breaker And Wire Puller Relationship Specialty Start Date End Date Irma Santizo DO [address] [place] [phone] PCP - General Family Medicine 1/30/24 documented as of this encounter
--- OUTSIDE RECORDS SUMMARY | 2025-03-06 09:43 | XMS_ITS | CCD ---
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 EOSINOPHILS PERCENT MANUAL 0.0 % Low 0.9 - 7.0 % [facility] Lymphocytes (Bld) [#/Vol] 1.56 10*3/uL [facility] LYMPHOCYTES PERCENT MANUAL 10.0 % Low 20.5 - 60.0 % [facility] Monocytes (Bld) [#/Vol] 0.78 10*3/uL [facility] MONOCYTES PERCENT MANUAL 5.0 % 1.7 - 12.0 % [facility] SEGMENTED NEUT ABSOLUTE MANUAL 12.63 High [facility] SEGMENTED NEUTROPHILS % MANUAL 81.0 High 43.0 - 75.0 [facility] No Panel Informationon 01-07 Interpretation and review of laboratory results Abnormal [facility] e No Panel Informationon 11-06 External Glucose Fasting Or Random (Fbs) 119 [facility] POCT Hemoglobin A1con 2023 HbA1c (Bld) [Mass fraction] 5.0 g/dL 4 - 7 g/dL [facility] Unlisted Lab Teston 10-01-19 24 Unlisted lab test [facility] Comment on above: see attached [facility] PROTEIN CREAT RATIOon 2023 RANDOM URINE PROTEIN 170 mg/L High <120 [facility] Comment on above: Performed By: #### U PCR #### [facility] ([id number]) [address], [address] [place] [address] U/PRO/LANGUAGE THERAPIST RATIO CALC 0.17 Normal <0.2 [facility] Comment on above: Result Comment: Neph rotic Syndrome is associated with ratios >3.5 Performed By: #### U PCR #### [facility] ([id number]) [address], [address] [place] [address] URINE CREATININE,RDM 98.06 mg/dL Normal [facility] Comment on above: Performed By: #### U PCR #### [facility] ([id number]) [address], [address] [place] [address] CBC without diffon Erythrocyte distribution width (RBC) [Ratio] 13.0 % 11.5 - 15.0 % [facility] Hematocrit (Bld) [Volume fraction] 34.6 % Low 35 - 47 % [facility] Hemoglobin (Bld) [Mass/Vol] 11.9 g/dL 11.7 - 15.5 g/dL [facility] Interpretation and review of laboratory results Abnormal [facility] MCH (RBC) [Entitic mass] 30.9 pg 27 - 34 pg [facility] MCHC (RBC) [Mass/Vol] 34.4 g/dL 32 - 36 g/dL [facility] [place] MCV (RBC) [Entitic vol] 90 fL 80 - 100 fL [facility] Platelet mean volume (Bld) [Entitic vol] 9.4 fL 7 - 12 fL [facility] Platelets (Bld) [#/Vol] 181 10*3/uL [facility] RBC (Bld) [#/Vol] 3.85 10*6/uL [facility] WBC corrected for nucl RBC Auto (Bld) [#/Vol] 11.3 High [facility] COMPLETE BLOOD COUNTon 09-16 Erythrocyte distribution width (RBC) [Ratio] 13.0 % Normal 11.5-15.0 [facility] Comment on above: Performed By: #### C BC, CMP, FEPR, 2532-0, 3084-1, TSHR, 2276-4, 2284-8, 2132-01 #### [facility] ([id number]) [address], [address] [place] [address] Hematocrit (Bld) [Volume fraction] 34.6 % Low 35-47 [facility] Comment on above: Performed By: #### C BC, CMP, FEPR, 2532-0, 3084-1, TSHR, 2276-4, 2284-8, 2132-01 #### [facility] ([id number]) [address], [address] [place] [address] Hemoglobin (Bld) [Mass/Vol] 11.9 g/dL Normal 11.7-15.5 [facility] Comment on above: Performed By: #### C BC, CMP, FEPR, 2532-0, 3084-1, TSHR, 2276-4, 2284-8, 2132-01 #### [facility] ([id number]) [address], [address] [place] [address] MCH (RBC) [Entitic mass] 30.9 pg Normal 27-34 [facility] Comment on above: Performed By: #### C BC, CMP, FEPR, 2532-0, 3084-1, TSHR, 2276-4, 2284-8, 2132-01 #### [facility] ([id number]) [address], [address] [place] [address] MCHC (RBC) [Mass/Vol] 34.4 g/dL Normal 32-36 [facility] Comment on above: Performed By: #### C BC, CMP, FEPR, 2532-0, 3084-1, TSHR, 2276-4, 2284-8, 2132-01 #### [facility] ([id number]) [address], [address] [place] [address] MCV (RBC) [Entitic vol] 90 fL Normal 80-100 [facility] Comment on above: Performed By: #### C BC, CMP, FEPR, 2532-0, 3084-1, TSHR, 2276-4, 2284-8, 2132-01 #### [facility] ([id number]) [address], [address] [place] [address] Platelet mean volume (Bld) [Entitic vol] 9.4 fL Normal 7-12 [facility] Comment on above: Performed By: #### C BC, CMP, FEPR, 2532-0, 3084-1, TSHR, 2276-4, 2284-8, 2132-01 #### [facility] ([id number]) [address] [address] Platelets (Bld) [#/Vol] 181 10*3/uL Normal 150-450 [facility] Comment on above: Performed By: #### C BC, CMP, FEPR, 2532-0, 3084-1, TSHR, 2276-4, 2284-8, 2132-01 #### [facility] ([id number]) [address], [address] [address] RBC COUNT 3.85 X10E12/L Normal 3.80-5.20 [facility] Comment on above: Performed By: #### C BC, CMP, FEPR, 2532-0, 3084-1, TSHR, 2276-4, 2284-8, 2131- #### [facility] ([id number]) [address] [address] [place] [address] WBC (Bld) [#/Vol] 11.3 10*3/uL High 4.0-11.[address] [facility] Comment on above: Performed By: #### C BC, CMP, FEPR, 2532-0, 3084-1, TSHR, 2276-4, 2284-8, 9 #### [facility] ([id number]) [address], [address] [place] [address] COMPREHENSIVE METABOLIC PANE Charles 09-17-2023 Albumin [Mass/Vol] 3.4 g/dL Normal 3.2-5.3 [facility] Comment on above: Performed By: #### C BC, CMP, FEPR, 2532-0, 3084-1, TSHR, 2276-4, 2284-8, 9 #### [facility] ([id number]) [address], [address] [place] [address] ALP [Catalytic activity/Vol] 71 U/L Normal 39-130 [facility] Comment on above: Performed By: #### C BC, CMP, FEPR, 2532-0, 3084-1, TSHR, 2276-4, 2284-8, 9 #### [facility] ([id number]) [address], [address] [place] [address] ALT [Catalytic activity/Vol] 11 U/L Normal 0-31 [facility] Comment on above: Performed By: #### C BC, CMP, FEPR, 2532-0, 3084-1, TSHR, 2276-4, 2284-8, 2131-9 #### [facility] ([id number]) [address], [address] [place] [address] Anion gap [Moles/Vol] 11 mmol/L Normal 5-15 [facility] Comment on above: Performed By: #### C BC, CMP, FEPR, 2532-0, 3084-1, TSHR, 2276-4, 2284-8, 2131-9 #### [facility] ([id number]) [address], [address] [place] [address] AST [Catalytic activity/Vol] 13 U/L Normal 0-41 [facility] Comment on above: Performed By: #### C BC, CMP, FEPR, 2532-0, 3084-1, TSHR, 2276-4, 2284-8, 2132-01 #### [facility] ([id number]) [address], [address] [place] [address] Bilirubin [Mass/Vol] 0.3 mg/dL Normal 0.3-1.2 [facility] Comment on above: Performed By: #### C BC, CMP, FEPR, 2532-0, 3084-1, TSHR, 2276-4, 2284-8, 2132-01 #### [facility] ([id number]) [address], [address] [place] [address] Calcium [Mass/Vol] 9.0 mg/dL Normal 8.5-10.5 [facility] Comment on above: Performed By: #### C BC, CMP, FEPR, 2532-0, 3084-1, TSHR, 2276-4, 2284-8, 2132-01 #### [facility] ([id number]) [address], [address] [place] [address] Chloride [Moles/Vol] 104 mmol/L Normal 98-109 [facility] Comment on above: Performed By: #### C BC, CMP, FEPR, 2532-0, 3084-1, TSHR, 2276-4, 2284-8, 2132-01 #### [facility] ([id number]) [address], [address] [place] [address] CO2 [Moles/Vol] 24 mmol/L Normal 22-32 [facility] Comment on above: Performed By: #### C BC, CMP, FEPR, 2532-0, 3084-1, TSHR, 2276-4, 2284-8, 2132-01 #### [facility] ([id number]) [address], [address] [place] [address] Creatinine [Mass/Vol] 0.46 mg/dL Normal 0.40-1.00 [facility] Comment on above: Result Comment: METH OD TRACEABLE TO IDMS STANDARD Performed By: #### C BC, CMP, FEPR, 2532-0, 3084-1, TSHR, 2276-4, 2284-8, 2132-01 #### [facility] ([id number]) [address], [address] [place] [address] eGFR (CKD-EPI) NON-RACE DEPENDENT >90 Normal >59 [facility] Comment on above: Result Comment: Reported eGFR is based on the CKD-EPI 2020 equation that does not use a race coefficient. Performed By: #### C BC, CMP, FEPR, 2532-0, 3084-1, TSHR, 2276-4, 2284-8, 2132-01 #### [facility] ([id number]) [address], [address] [place] [address] Glucose [Mass/Vol] 78 mg/dL Normal 65-99 [facility] Comment on above: Performed By: #### C BC, CMP, FEPR, 2532-0, 3084-1, TSHR, 2276-4, 2284-8, 2132-01 #### [facility] ([id number]) [address], [address] [place] [address] Potassium [Moles/Vol] 4.0 mmol/L Normal 3.5-5.0 [facility] Comment on above: Performed By: #### C BC, CMP, FEPR, 2532-0, 3084-1, TSHR, 2276-4, 2284-8, 2132-01 #### [facility] ([id number]) [address], [address] [place] [address] Protein [Mass/Vol] 6.5 g/dL Normal 6.0-8.0 [facility] Comment on above: Performed By: #### C BC, CMP, FEPR, 2532-0, 3084-1, TSHR, 2276-4, 2284-8, 9 #### [facility] ([id number]) [address] [facility], [address] [place] [address] Sodium [Moles/Vol] 139 mmol/L Normal 134-146 [facility] Comment on above: Performed By: #### C BC, CMP, FEPR, 2532-0, 3084-1, TSHR, 2276-4, 2284-8, 9 #### [facility] ([id number]) [address] [facility], [address] [place] [address] Urea nitrogen [Mass/Vol] 8 mg/dL Normal 5-23 [facility] Comment on above: Performed By: #### C BC, CMP, FEPR, 2532-0, 3084-1, TSHR, 2276-4, 2284-8, 2132-01 #### [facility] ([id number]) [address] [facility], [address] [place] [address] Cobalamin (Vitamin B12) [Mas s/Vol]on 09-17-2023 [facility] Comprehensive metabolic pane charles 09-17-2023 Albumin [Mass/Vol] 3.4 g/dL 3.2 - 5.3 g/dL [facility] ALP [Catalytic activity/Vol] 71 U/L 39 - 130 U/L [facility] ALT No additional P-5'-P [Catalytic activity/Vol] 11 U/L 0 - 31 U/L [facility] Anion gap [Moles/Vol] 11 mmol/L 5 - 15 mmol/L [facility] AST [Catalytic activity/Vol] 13 U/L 0 - 41 U/L [facility] Bilirubin [Mass/Vol] 0.3 mg/dL 0.3 - 1 .2 mg/dL [facility] Calcium [Mass/Vol] 9.0 mg/dL 8.5 - 10. 5 mg/dL [facility] Chloride [Moles/Vol] 104 mmol/L 98 - 10 9 mmol/L [facility] CO2 [Moles/Vol] 24 mmol/L 22 - 32 mmol/L [facility] Creatinine [Mass/Vol] 0.46 mg/dL 0.40 - 1.00 mg/dL [facility] Comment on above: METHOD TRACEABLE TO [facility] STANDARD eGFR (CKD-EPI)non-race dependent - PINF [facility] Comment on above: Reported eGFR is based on the CKD-EPI 2020 equation that does not use a race coefficient. Glucose [Mass/Vol] 78 mg/dL 65 - 99 mg/dL [facility] Potassium [Moles/Vol] 4.0 mmol/L 3.5 - 5.0 mmol/L [facility] Protein [Mass/Vol] 6.5 g/dL 6.0 - 8.0 g/dL [facility] Sodium [Moles/Vol] 139 mmol/L 134 - 146 mmol/L [facility] Urea nitrogen [Mass/Vol] 8 mg/dL 5 - 23 mg/dL [facility] FERRITINon 09-17-2023 Ferritin [Mass/Vol] 11 ng/mL Normal 11-[address] [facility] Comment on above: Performed By: #### C BC, CMP, FEPR, 2532-0, 3084-1, TSHR, 2276-4, 2284-8, 2132-01 #### [facility] ([id number]) [address] [place] [address], [address] [place] [address] Ferritinon 09-17-2023 Ferritin [Mass/Vol] 11 ng/mL 11 - 307 ng/mL [facility] Ferritin [Mass/Vol]on 2023 [facility] Folateon 09-17-2023 Folate [Mass/Vol] 18.1 ng/mL 5.8 - PINF ng/mL [facility] Comment on above: NEW REFERENCE RANGE Folate [Mass/Vol]on 09-17-19 [facility] FOLIC ACID 18.1 ng/mL Normal >5.8 [facility] Comment on above: Result Comment: NEW REFERENCE RANGE Performed By: #### C BC, CMP, FEPR, 2532-0, 3084-1, TSHR, 2276-4, 2284-8, 2132-01 #### [facility] ([id number]) [address], [address] [place] [address] IRON PROFILEon 09-17-2023 Iron [Mass/Vol] 52 ug/dL Normal 50-170 [facility] Comment on above: Performed By: #### C BC, CMP, FEPR, 2532-0, 3084-1, TSHR, 2276-4, 2284-8, 2132-01 #### [facility] ([id number]) [address], [address] [place] [address] IRON BINDING 580 ug/dL High 250-425 [facility] Comment on above: Performed By: #### C BC, CMP, FEPR, 2532-0, 3084-1, TSHR, 2276-4, 2283-8, 2132-01 #### [facility] ([id number]) [address], [address] [place] [address] IRON SATURATION 9 % SATURATION Low 15-[address] [facility] Comment on above: Performed By: #### C BC, CMP, FEPR, 2532-0, 3084-1, TSHR, 2276-4, 2283-8, 2132-01 #### [facility] ([id number]) [address], [address] [place] [address] Iron and TIBCon 09-17-2023 Interpretation and review of laboratory results Abnormal [facility] Iron [Mass/Vol] 52 ug/dL 50 - 170 ug/dL [facility] Iron binding capacity [Mass/Vol] 580 ug/dL High 250 - 425 ug/dL [facility] Iron saturation [Mass fraction] 9 Low [facility] LDHon 09-17-2023 LDH [Catalytic activity/Vol] 124 U/L 100 - 235 U/L [facility] LDH [Catalytic activity/Vol] on 09-17-2023 LDH 124 U/L Normal 100-235 [facility] Comment on above: Performed By: #### C BC, CMP, FEPR, 2532-0, 3084-1, TSHR, 2276-4, 2284-8, 9 #### [facility] ([id number]) [address], [address] [place] [address] Natriuretic peptide B [Mass/ Vol]on 09-17-2023 Natriuretic peptide B (Bld) [Mass/Vol] 66 pg/mL NINF - 100.0 pg/mL [facility] Natriuretic peptide B (Bld) [Mass/Vol] 66 pg/mL Normal <100.0 [facility] Comment on above: Performed By: #### C BC, CMP, FEPR, 2532-0, 3084-1, TSHR, 2276-4, 2284-8, 2132-01 #### [facility] ([id number]) [address], [address] [place] [address] No Panel Informationon 09-16 [facility] TSH WITH REFLEXon 09-17-2023 TSH 0.78 uIU/mL Normal 0.49-4.67 [facility] Comment on above: Performed By: #### C BC, CMP, FEPR, 2532-0, 3084-1, TSHR, 2276-4, 4-8, 2132-01 #### [facility] ([id number]) [address], [address] [place] [address] TSH with Reflexon 09-17-2023 TSH Qn 0.78 m[IU]/L [facility] Thiamine (Bld) [Mass/Vol]on 09-17-2023 THIAMIN VITAMIN B1 See Below Normal [facility] Comment on above: Result Comment: NOTE [...] its performance characteristics determined by [facility]'s Jordan Toussaint [facility] Pathology and Laboratory Medicine [place] ([facility]). It has not been cleared or approved by the FDA. [facility] is regulated under CLIA as qualified to perform high-complexity testing. This test is used for clinical purposes. It should not be regarded as investigational or for research. Test Performed By: [place] [address] [employer] Tester: Colin Cisneros III, M.D. CLIA #[id number] Performed By: #### C BC, CMP, FEPR, 2532-0, 3084-1, TSHR, 2276-4, 2284-8, 2132-01 #### [facility] ([id number]) [facility] [address] [place] [address] URIC ACIDon 09-17-2023 Urate [Mass/Vol] 5.1 mg/dL Normal 2.6-7.[address] [facility] Comment on above: Performed By: #### C BC, CMP, FEPR, 2532-0, 3084-1, TSHR, 2276-4, 2284-8, 2132-01 #### [facility] ([id number]) [address] [place] [address], [facility] [address] [place] [address] Uric acidon 09-17-2023 Urate [Mass/Vol] 5.1 mg/dL 2.6 - 7.2 mg/dL [facility] VITAMIN B12on 09-17-2023 Cobalamin (Vitamin B12) [Mass/Vol] 185 pg/mL Normal 180-914 [facility] Comment on above: Performed By: #### C BC, CMP, FEPR, 2532-0, 3084-1, TSHR, 2276-4, 2284-8, 2132-01 #### [facility] ([id number]) [address] [facility], [address] [place] [address] Vitamin B12on 09-17-2023 Cobalamin (Vitamin B12) [Mass/Vol] 185 pg/mL 180 - 914 pg/mL [facility] Cytology Cervical or vaginal smear or scraping studyon 08-15-2023 [facility] TSH[facility] 05-25-2023 Thyroid Stimulating (3Rd Generation) Hormone/ Tsh 2.200 [facility] HCG ( test) IA.rapi d Ql (U)Ordered By: Shun Hill on 03-15-2023 HCG ( test) Ql (U) Negative [facility] SARS-CoV-2 (COVID-19) RNA NA A+probe Ql (Resp)on 01-16-2023 SARS-CoV-2 (COVID-19) RNA GEORGE+probe Ql (Unsp spec) Positive [facility] Other HIV 1&2 AB/AG Screen (P24 AG )on 12-13-2022 HIV 1&2 AB/AG Non-Reactive [facility] Hepatitis B surface antigeno n 12-13-2022 Hepatitis B Surface Antigen Negative [facility] No Panel InformationOrdered By: Rae Agudelo on 12-13-2022 [facility] Rubella IGG immune statuson 12-13-2022 Rubella immune IgG <0.90 NON IMMUNE [facility] Syphilis Total(Unknown Syphi lis Status)Ordered By: Rae Agudelo on 12-13-2022 Syphilis Non-Reactive [facility] COVID Quick Testingon 2022 Result Negative [facility] Other COVID Quick Testingon 2022 Result Negative [facility] Other COVID Quick Testingon 2022 Result Negative [facility] Other COVID Quick Testingon 2021 Result Negative [facility] Other Vital Signs Date Time Vital Sign Value Performing Clinician Facility 08-18-2024 14:21-0400 Body weight 111.25 kg Irma Yi PA Work Phone: [facility] 08-18-2024 14:21-0400 Diastolic blood pressure 64 mm[Hg] Irma Jaci PA Work Phone: [facility] 08-18-2024 14:21-0400 Systolic blood pressure 110 mm[Hg] Irma Jaci PA Work Phone: [facility] 06-25-2024 09:55-0500 Body height 170.18 cm Irma Burt DO Work Phone: [facility] 06-25-2024 09:55-0500 Body mass index (BMI) [Ratio] 37 kg/m2 Irma Burt DO Work Phone: [facility] 06-25-2024 09:55-0500 Body weight 107.5 kg Irma Burt DO Work Phone: [facility] 02-18-2024 11:53-0400 Body weight 105.23 kg Irma Yi PA Work Phone: [facility] 02-18-2024 11:53-0400 Diastolic blood pressure 74 mm[Hg] Irma [place] PA Work Phone: [facility] 02-18-2024 11:53-0400 Systolic blood pressure 110 mm[Hg] Irma [place] PA Work Phone: [facility] 01-22-2024 10:09-0400 Body weight 108.41 kg Bryan Anai DO Work Phone: [facility] 01-22-2024 10:09-0400 Diastolic blood pressure 78 mm[Hg] Bryan Anai DO Work Phone: [facility] 01-22-2024 10:09-0400 Systolic blood pressure 124 mm[Hg] Bryan Anai DO Work Phone: [facility] 11-30-2023 13:54-0400 Body height 170.2 cm Kaitlyn Jasso MD Work Phone: [facility] 11-30-2023 13:54-0400 Body mass index (BMI) [Ratio] 40.37 kg/m2 Kaitlyn Jasso MD Work Phone: [facility] 11-30-2023 13:54-0400 Body weight 116.94 kg Kaitlyn Jasso MD Work Phone: [facility] 11-30-2023 13:54-0400 Diastolic blood pressure 78 mm[Hg] Kaitlyn Jasso MD Work Phone: [facility] 11-30-2023 13:54-0400 Heart rate 106 /min Kaitlyn Jasso MD Work Phone: [facility] 11-30-2023 13:54-0400 Systolic blood pressure 125 mm[Hg] Kaitlyn Jasso MD Work Phone: [facility] 11-14-2023 13:04-0400 Body mass index (BMI) [Ratio] 41.25 kg/m2 Dilshad Fraga PHARMACEUTICAL OFFICER-[employer]ILRO[employer] MESSENGER Work Phone: [facility] 11-14-2023 13:04-0400 Body weight 119.48 kg Dilshad Fraga PHARMACEUTICAL OFFICER-[employer] MESSENGER Work Phone: [facility] 11-14-2023 13:04-0400 Diastolic blood pressure 58 mm[Hg] Dilshad Fraga PHARMACEUTICAL OFFICER-[employer] MESSENGER Work Phone: [facility] 11-14-2023 13:04-0400 Heart rate 114 /min Dilshad Fraga PHARMACEUTICAL OFFICER-[employer] MESSENGER Work Phone: [facility] 11-14-2023 13:04-0400 Systolic blood pressure 133 mm[Hg] Dilshad Fraga PHARMACEUTICAL OFFICER-[employer] MESSENGER Work Phone: [facility] 11-07-2023 16:07-0400 Body mass index (BMI) [Ratio] 40.57 kg/m2 Charis Mcmanus RN Work Phone: [facility] 11-07-2023 16:07-0400 Body weight 117.48 kg Charis Mcmanus RN Work Phone: [facility] 10-22-2023 12:43-0400 Body height 170.2 cm Kaitlyn Jasso MD Work Phone: [facility] 10-22-2023 12:43-0400 Body mass index (BMI) [Ratio] 40 kg/m2 Kaitlyn Jasso MD Work Phone: [facility] 10-22-2023 12:43-0400 Body weight 115.85 kg Kaitlyn Jasso MD Work Phone: [facility] 10-22-2023 12:43-0400 Diastolic blood pressure 67 mm[Hg] Kaitlyn Jasso MD Work Phone: [facility] 10-22-2023 12:43-0400 Heart rate 100 /min Kaitlyn Jasso MD Work Phone: [facility] 10-22-2023 12:43-0400 Systolic blood pressure 126 mm[Hg] Kaitlyn Jasso MD Work Phone: [facility] 10-01-2023 09:33-0400 Body mass index (BMI) [Ratio] 38.52 kg/m2 Anabelle Cotto RD Work Phone: [facility] 10-01-2023 09:33-0400 Body weight 111.[address] Work Phone: [facility] 09-17-2023 08:01-0400 Body height 170.2 cm Kaitlyn Jasso MD Work Phone: [facility] 09-17-2023 08:01-0400 Body mass index (BMI) [Ratio] 38.53 kg/m2 Kaitlyn Jasso MD Work Phone: [facility] 09-17-2023 08:01-0400 Body weight 111.6 kg Kaitlyn Jasso MD Work Phone: [facility] 09-17-2023 08:01-0400 Diastolic blood pressure 72 mm[Hg] Kaitlyn Jasso MD Work Phone: [facility] Comment on above: 36 cm/maroon cuff used 09-17-2023 08:01-0400 Heart rate 92 /min Kaitlyn Jasso MD Work Phone: [employer] 09-17-2023 08:01-0400 Systolic blood pressure 123 mm[Hg] Kaitlyn Jasso MD Work Phone: [employer] Comment on above: 36 cm/maroon cuff used 07-26-2023 11:27-0500 Body height 170.2 cm Kaitlyn Jasso MD Work Phone: [employer] 06-12-2023 13:00-0500 Body height 170.18 cm Shun Liz Other [employer] Other 06-12-2023 13:00-0500 Body mass index (BMI) [Ratio] 35.24 kg/m2 Shun Haleormack Other [facility] Other 06-12-2023 13:00-0500 Body weight 102.06 kg Shun Haleormack Other [facility] Other 03-15-2023 12:29-0400 Diastolic blood pressure 89 mm[Hg] DO Irma Burt Work Phone: [facility] 03-15-2023 12:29-0400 Heart rate 70 /min DO Irma Burt Work Phone: [facility] 03-15-2023 12:29-0400 Respiratory rate 16 /min DO Irma Burt Work Phone: [facility] 03-15-2023 12:29-0400 SaO2% (BldA) [Mass fraction] 100 % DO Irma Burt Work Phone: [facility] 03-15-2023 12:29-0400 Systolic blood pressure 132 mm[Hg] DO Irma Burt Work Phone: [facility] 03-15-2023 08:54-0400 Body height 170.18 cm DO Irma Burt Work Phone: [facility] 03-15-2023 08:54-0400 Body weight 90.71 kg DO Irma Burt Work Phone: [facility] 02-08-2023 14:45-0400 Body height 170.18 cm Shun Liz Other [facility] Other 02-08-2023 14:45-0400 Body mass index (BMI) [Ratio] 34.92 kg/m2 Shun Haleormack Other [facility] Other 02-08-2023 14:45-0400 Body weight 101.15 kg Shun Liz Other [facility] Other 02-08-2023 14:45-0400 Diastolic blood pressure 80 mm[Hg] Shun Liz Other [facility] Other 02-08-2023 14:45-0400 Systolic blood pressure 131 mm[Hg] Shun Liz Other [facility] Other 01-16-2023 10:35-0400 Body height 170.18 cm Aydee Hearn Other [employer] Other 01-16-2023 10:35-0400 Body mass index (BMI) [Ratio] 35.2 kg/m2 Aydee Hearn Other [facility] Other 01-16-2023 10:35-0400 Body temperature 98.3 [degF] Aydee Hearn Other [facility] Other 01-16-2023 10:35-0400 Body weight 101.97 kg Aydee Hearn Other [employer] Other 01-16-2023 10:35-0400 Diastolic blood pressure 66 mm[Hg] Aydee Nadiya Other [facility] Other 01-16-2023 10:35-0400 Respiratory rate 18 /min Aydee Nadiya Other [facility] Other 01-16-2023 10:35-0400 SaO2% (BldA) [Mass fraction] 98 % Aydee Nadiya Other [facility] Other 01-16-2023 10:35-0400 Systolic blood pressure 105 mm[Hg] Aydee Nadiya Other [employer] Other 09-23-2022 10:45-0400 Body height 170.18 cm Aydee Nadiya Other [facility] Other 09-23-2022 10:45-0400 Body mass index (BMI) [Ratio] 35.13 kg/m2 Yadee Nadiya Other [employer] Other 09-23-2022 10:45-0400 Body temperature 99.2 [degF] Aydee Nadiya Other [facility] Other 09-23-2022 10:45-0400 Body weight 101.74 kg Aydee Nadiya Other [employer] Other 09-23-2022 10:45-0400 Diastolic blood pressure 80 mm[Hg] Aydee Nadiya Other [facility] Other 09-23-2022 10:45-0400 Respiratory rate 18 /min Aydee Nadiya Other [facility] Other 09-23-2022 10:45-0400 SaO2% (BldA) [Mass fraction] 98 % Aydee Hearn Other [facility] Other 09-23-2022 10:45-0400 Systolic blood pressure 125 mm[Hg] Aydee Hearn Other [facility] Other 09-04-2022 11:20-0400 Body height 170.18 cm Aydee Hearn Other [facility] Other 09-04-2022 11:20-0400 Body mass index (BMI) [Ratio] 31.32 kg/m2 Aydee Hearn Other [facility] Other 09-04-2022 11:20-0400 Body temperature 97.8 [degF] Aydee Hearn Other [facility] Other 09-04-2022 11:20-0400 Body weight 90.72 kg Aydee Hearn Other [facility] Other 09-04-2022 11:20-0400 Respiratory rate 18 /min Aydee Hearn Other [facility] Other 09-04-2022 11:20-0400 SaO2% (BldA) [Mass fraction] 99 % Aydee Vaughnmond Other [employer] Other Encounters Encounter Date Encounter Type Care Provider Facility Start: 12-12-2024 End: 12-12-2024 Ed Jasso MD Work Phone: [facility] Start: 08-18-2024 End: 08-18-2024 Bamboo flowsheet Irma VICENTE Work Phone: [facility] Start: 08-18-2024 End: 08-25-2024 Bamboo flowsheet Irma VICENTE Work Phone: [facility] Start: 08-18-2024 End: 08-25-2024 Clinisync Result Encounter Irma VICENTE Work Phone: [facility] Unsolicited Start: 08-18-2024 End: 08-18-2024 Patient encounter procedure Irma VICENTE Work Phone: [facility] Start: 08-18-2024 End: 08-18-2024 Periodic preventive med est patient 18-39 yrs Irma VICENTE Work Phone: [facility] Comment on above: Well woman exam with routine gynecological exam Start: 08-18-2024 End: 08-18-2024 ambulatory IRMA YI Not Available Start: 07-02-2024 End: 07-02-2024 Patient encounter procedure Irma Burt DO Work Phone: [facility] Work Phone: Start: 07-02-2024 End: 07-02-2024 ambulatory Irma Burt DO Work Phone: [facility] Work Phone: Start: 06-25-2024 End: 06-25-2024 Patient encounter procedure Irma Burt DO Work Phone: [facility] Work Phone: Start: 06-16-2024 End: 06-16-2024 Refill Kaitlyn Jasso MD Work Phone: [facility] Start: 05-10-2024 End: 05-11-2024 Refill Kaitlyn Jasso MD Work Phone: [facility] Start: 04-14-2024 End: 04-14-2024 ambulatory Irma Burt Facility:[facility] Start: 04-14-2024 End: 04-14-2024 Patient encounter procedure Irma Taverase [facility] Start: 03-08-2024 End: 03-10-2024 Refill Kaitlyn Jasso MD Work Phone: [facility] Start: 02-29-2024 End: 02-29-2024 Refill Kaitlyn Jasos MD Work Phone: [facility] Start: 02-18-2024 End: 02-18-2024 ambulatory IRMA YI Not Available Start: 02-18-2024 End: 02-18-2024 care visit Irma VICENTE Work Phone: [facility] Comment on above: 6 weeks f ollow-up (Primary Dx) Start: 02-04-2024 End: 02-05-2024 Refill Dilshad JERONIMO Work Phone: [facility] Start: 01-22-2024 End: 01-22-2024 Bamboo flowsheet Bryan Anai DO Work Phone: [facility] Start: 01-22-2024 End: 01-22-2024 Bamboo flowsheet Bryan Anai DO Work Phone: [facility] Start: 01-22-2024 End: 01-22-2024 ambulatory BRYAN ANAI Not Available Start: 01-22-2024 End: 01-22-2024 Patient encounter status Bryan Anai DO Work Phone: [facility] Start: 01-22-2024 End: 01-22-2024 care visit Bryan Anai DO Work Phone: [facility] Comment on above: Blood pressure check ; 2 weeks follow-up Start: 01-13-2024 End: 01-14-2024 Clinisync Result Encounter Bryan Anai DO Work Phone: [facility] Unsolicited Start: 01-13-2024 End: 01-14-2024 Clinisync Result Encounter Bryan Anai DO Work Phone: [facility] Unsolicited Start: 01-09-2024 End: 01-09-2024 Clinisync Result Encounter Bryan Anai DO Work Phone: [facility] Unsolicited Start: 01-09-2024 End: 01-09-2024 Clinisync Result Encounter Bryan Anai DO Work Phone: [facility] Unsolicited Start: 01-08-2024 End: 01-08-2024 Clinisync Result Encounter Bryan Anai DO Work Phone: [facility] Unsolicited Start: 01-08-2024 End: 01-08-2024 Clinisync Result Encounter Bryna Anai DO Work Phone: [facility] Unsolicited Start: 01-06-2024 End: 01-07-2024 Refill Kaitlyn Jasso MD Work Phone: [facility] Start: 01-02-2024 End: 01-02-2024 ambulatory BRYAN ANAI Not Available Start: 01-02-2024 End: 01-15-2024 Clinisync Result Encounter Bryan Anai DO Work Phone: [facility] Unsolicited Start: 01-02-2024 End: 01-15-2024 Clinisync Result Encounter Bryan Anai DO Work Phone: [facility] Unsolicited Start: 01-02-2024 End: 01-02-2024 Telephone encounter Zeinab Serrano RN [facility] Start: 12-25-2023 End: 12-25-2023 ambulatory BRYAN ANAI Not Available Start: 12-24-2023 End: 12-24-2023 Office outpatient visit 25 minutes Priya Castillo PA-C Work Phone: [facility] Comment on above: Insulin controlled g estational diabetes mellitus (GDM) in third trimester (Primary Dx) Start: 12-24-2023 End: 12-24-2023 ambulatory PRIYA CASTILLO [facility] Start: 12-19-2023 End: 12-19-2023 ambulatory IRMA YI Not Available Start: 12-18-2023 End: 12-18-2023 Telephone encounter Zeinab Serrano RN [facility] Start: 12-17-2023 End: 12-17-2023 Orders Only Priya Castillo PA-C Work Phone: [facility] Start: 12-10-2023 End: 12-11-2023 Refill Kaitlyn Jasso MD Work Phone: [facility] Start: 12-10-2023 End: 12-10-2023 Telephone encounter Zeinab Serrano RN [facility] Start: 12-06-2023 End: 12-06-2023 Telephone encounter Charis Mcmanus RN Work Phone: [facility] Start: 12-06-2023 End: 12-06-2023 ambulatory IRMA YI Not Available Start: 12-04-2023 End: 12-10-2023 Telephone encounter Zeinab Serrano RN [facility] Start: 12-03-2023 End: 12-03-2023 Orders Only Lavelle Albright [facility] Comment on above: Polyhydramnios affec ting (Primary Dx); Insulin controlled gestational diabetes mellitus (GDM) in third trimester; Exocrine pancreatic insufficiency; Opioid dependence in remission ([facility]); History of pre-eclampsia in prior , currently ; Hypothyroidism affecting , antepartum Start: 11-30-2023 End: 11-30-2023 Office outpatient visit 25 minutes Kaitlyn Jasso MD Work Phone: [facility] Comment on above: Insulin controlled g estational diabetes mellitus (GDM) in third trimester (Primary Dx); Polyhydramnios affecting ; Exocrine pancreatic insufficiency; Opioid dependence in remission ([facility]); resulting from assisted reproductive technology in third trimester; History of intravenous drug abuse; History of pre-eclampsia in prior , currently ; 32 weeks gestation of ; Hypothyroidism affecting , antepartum; Severe obesity due to excess calories affecting , antepartum ([facility]) Start: 11-30-2023 End: 11-30-2023 ambulatory [facility] Start: 11-21-2023 End: 11-21-2023 ambulatory BRYAN ANAI Not Available Start: 11-20-2023 End: 11-20-2023 Telephone encounter Zeinab Serrano RN [facility] Start: 11-19-2023 End: 11-19-2023 Telephone encounter Whitney Russo RN [facility] Start: 11-14-2023 End: 11-14-2023 Office outpatient visit 25 minutes Dilshad JERONIMO Work Phone: [facility] Comment on above: Insulin controlled g estational diabetes mellitus (GDM) in third trimester (Primary Dx); Hx of preeclampsia, prior , currently Start: 11-14-2023 End: 11-14-2023 ambulatory DILSHAD FRAGA [facility] Start: 11-13-2023 End: 11-13-2023 Telephone encounter Zeinab Serrano RN [facility] Start: 11-12-2023 End: 11-12-2023 Ed Jasso MD Work Phone: [facility] Start: 11-07-2023 End: 11-07-2023 ambulatory BRYAN ANAI Not Available Start: 11-07-2023 End: 11-07-2023 ambulatory CHARIS MCMANUS [facility] Comment on above: Gestational diabetes mellitus (GDM) in third trimester, gestational diabetes method of control unspecified (Primary Dx) Gestational diabetes mellitus (GDM), antepartum, gestational diabetes method of control unspecified; Gestational diabetes mellitus (GDM) in third trimester, gestational diabetes method of control unspecified Start: 10-26-2023 End: 10-26-2023 Orders Only Anamika Mgcraw RN [facility] Comment on above: Gestational diabetes mellitus (GDM), antepartum, gestational diabetes method of control unspecified (Primary Dx) Start: 10-22-2023 End: 10-26-2023 ambulatory KAITLYN JASSO [facility] Start: 10-22-2023 End: 10-22-2023 Office outpatient visit 15 minutes Kaitlyn Jasso MD Work Phone: [facility] Comment on above: 26 weeks gestation o f (Primary Dx); Exocrine pancreatic insufficiency; Opioid dependence in remission (CMS-HCC); Other obesity due to excess calories affecting in second trimester; Hypothyroidism affecting , antepartum; History of pre-eclampsia in prior , currently in second trimester; Polyhydramnios affecting Start: 10-22-2023 End: 10-22-2023 ambulatory BRYAN OSPINA [facility] Start: 10-09-2023 End: 10-09-2023 ambulatory IRMA YI Not Available Start: 10-01-2023 End: 10-01-2023 Office outpatient new 30 minutes Kaitlyn Jasso MD Work Phone: [facility] Comment on above: Exocrine pancreatic insufficiency Start: 10-01-2023 End: 10-01-2023 ambulatory ANABELLE COTTO [facility] Comment on above: 21 weeks gestation o f ; Hypothyroidism affecting , antepartum; History of pre-eclampsia in prior , currently in second trimester; Other obesity due to excess calories affecting in second trimester; resulting from assisted reproductive technology in second trimester; Opioid dependence in remission (CMS-HCC); History of intravenous drug abuse; Exocrine pancreatic insufficiency; Bilateral lower extremity edema Start: 09-20-2023 End: 09-21-2023 ambulatory KAITLYN JASSO [facility] Start: 09-18-2023 End: 09-18-2023 ambulatory BRYAN OSPINA Not Available Start: 09-18-2023 End: 09-18-2023 Telephone encounter Kaitlyn Jasso MD Work Phone: [facility] Comment on above: Hypothyroidism affec ting , antepartum (Primary Dx); History of pre-eclampsia in prior , currently in second trimester; [place] product of in vitro fertilization (IVF) Start: 09-17-2023 End: 09-17-2023 ambulatory BRYAN OSPINA [facility] Start: 09-17-2023 End: 09-17-2023 Office consultation new/estab patient 80 min Kaitlyn Jasso MD Work Phone: [facility] Comment on above: 21 weeks gestation o f (Primary Dx); Hypothyroidism affecting , antepartum; History of pre-eclampsia in prior , currently in second trimester; Other obesity due to excess calories affecting in second trimester; resulting from assisted reproductive technology in second trimester; Opioid dependence in remission (CMS-HCC); History of intravenous drug abuse; Exocrine pancreatic insufficiency; Bilateral lower extremity edema; Abnormal genetic test during Start: 09-17-2023 End: 09-17-2023 ambulatory KAITLYN JASSO [facility] Start: 08-31-2023 End: 09-04-2023 ambulatory FROYLAN Rascon [facility] Start: 07-26-2023 Chart abstracting Kaitlyn Jasso MD Work Phone: [facility] Start: 06-20-2023 End: 06-20-2023 ambulatory Shun Hill Other [facility] Other Start: 06-20-2023 Telephone encounter Shun infante [facility] Start: 06-12-2023 End: 06-12-2023 ambulatory Shun Hill Other [place] Other Start: 06-12-2023 Office outpatient vi sit 15 minutes Shun Hill [facility] Start: 05-01-2023 End: 05-01-2023 ambulatory DO Irma Burt Work Phone: [facility] Work Phone: Start: 05-01-2023 End: 05-01-2023 Patient encounter procedure DO Irma Burt Work Phone: [facility] Work Phone: Start: 04-10-2023 End: 04-10-2023 ambulatory DO Irma Burt Work Phone: [facility] Work Phone: Start: 04-10-2023 End: 04-10-2023 Patient encounter procedure DO Irma Burt Work Phone: [facility] [place] Work Phone: Start: 04-06-2023 End: 04-06-2023 ambulatory Shun Hill Other [facility] Other Start: 04-06-2023 Telephone encounter Shun infante [facility] Start: 03-20-2023 End: 03-20-2023 ambulatory Shun Hill Other [facility] Other Start: 03-20-2023 Telephone encounter Shun infante [facility] Start: 03-19-2023 End: 03-19-2023 ambulatory Shun Hill Other [place] Other Start: 03-19-2023 Telephone encounter Shun infante [facility] Start: 03-15-2023 End: 03-15-2023 Admission to same day surgery center DO Irma Burt Work Phone: [facility] Work Phone: Start: 03-15-2023 End: 03-15-2023 ambulatory DO Irma D Burt Work Phone: [facility] Work Phone: Start: 02-26-2023 End: 02-26-2023 ambulatory Shun Hill Other [facility] Other Start: 02-26-2023 Telephone encounter Shun Moncada ck [facility] Start: 02-08-2023 End: 02-08-2023 ambulatory Shun Hill Other [place] Other Start: 02-08-2023 Office outpatient ne w 45 minutes Shun Hill [facility] Start: 01-16-2023 End: 01-16-2023 ambulatory Aydee Nadiya Other [facility] Other Start: 01-16-2023 Office outpatient vi sit 15 minutes Aydee Nadiya [facility] Start: 09-23-2022 End: 09-23-2022 ambulatory Aydee Nadiya Other [place] Other Start: 09-23-2022 Office outpatient vi sit 15 minutes Aydee Nadiya [facility] Start: 09-04-2022 End: 09-04-2022 ambulatory Aydee Nadiya Other [facility] Other Start: 09-04-2022 Nursing evaluation o f patient and report Aydee Nadiya [facility] Start: 07-12-2022 End: 07-12-2022 ambulatory Perlarolo Márquez Other [facility] Other Start: 07-12-2022 Office outpatient vi sit 5 minutes Perla Yulisa [facility] Start: 07-07-2022 End: 07-07-2022 ambulatory Aydee Nadiya Other [place] Other Start: 07-07-2022 Encounter for other preprocedural examination Aydee Nadiya [facility] Start: 07-07-2022 Nursing evaluation o f patient and report Aydee Hearn [facility] Start: 02-03-2022 End: 02-03-2022 ambulatory Maria Guadalupe Powers Other [employer] Other Start: 02-03-2022 Office outpatient vi sit 5 minutes Maria Guadalupe Powers [facility] Procedures Date Procedure Procedure Detail Performing Clinician Start: 08-18-2024 Urine test visual color cmprsn meths Irma VICENTE Work Phone: Start: 08-18-2024 IGP,APTIMA HPV,AGE GDLN Irma VICENTE Work Phone: Start: 07-02-2024 Ultrasound elastogra phy of liver Irma Burt DO Work Phone: Start: 01-13-2024 ALL CBC WITH AUTO DIFF Bryan Anai DO Work Phone: Start: 01-13-2024 ALL MAGNESIUM Bryan Allison io DO Work Phone: Start: 01-13-2024 [facility] CMP (CMP) (FOR R EMOTE [facility] USE) Bryan Anai DO Work Phone: Start: 01-09-2024 ALL AMYLASE Bryan Fazi o DO Work Phone: Start: 01-09-2024 [facility] CMP (CMP) (FOR R EMOTE [facility] USE) Bryan Anai DO Work Phone: Start: 01-09-2024 [facility] LIPASE Bryan Fazi o DO Work Phone: Start: 01-09-2024 [facility] GLUCOSE FASTING Co jesus Anai DO Work Phone: Start: 01-08-2024 ALL CBC WITH AUTO DIFF Bryan Anai DO Work Phone: Start: 01-08-2024 MHPT DIFFERENTIAL Bryan Anai DO Work Phone: Start: 01-02-2024 [facility] BOX TEST SENT OUT C orey Anai DO Work Phone: Start: 11-07-2023 Hemoglobin glycosyla earl a1c Dilshad Fraga PHARMACEUTICAL OFFICER-MAILROOM MESSENGER Work Phone: Start: 09-17-2023 UNLISTED LAB TEST Kaitlyn porter MD Work Phone: Start: 08-15-2023 Microscopic observat ion [Identifier] in Cervix by Cyto stain Bryan Ospina DO Work Phone: Start: 08-15-2023 Cytp cerv/vag auto t hin layer prep mnl screen Bryan Ospina DO Work Phone: Start: 05-25-2023 Assay of thyroid stimulating hormone [...] antibody qual Not In System Ref Prov None (qualifier value) Irma morales Plan of Treatment Date Care Activity Detail Author Start: 08-14-2028 Screening for malign ant neoplasm of cervix [facility] Start: 01-18-2026 DTaP,Tdap and Td Vaccines (3 - Td or Tdap) DTaP,Tdap and Td Vaccines (3 - Td or Tdap) [facility] Start: 01-19-2025 Influenza vaccination Influenza Vacc ine [facility] Start: 12-02-2024 End: 12-02-2024 US MFM with or without consult US MFM with or without consult Imaging Routine Polyhydramnios affecting Insulin controlled gestational diabetes mellitus (GDM) in third trimester Exocrine pancreatic insufficiency Opioid dependence in remission (CMS-HCC) History of pre-eclampsia in prior , currently Hypothyroidism affecting , antepartum Expected: 12/02/2024 (Approximate), Expires: 12/02/2024 [place] Work Phone: Comment on above: Expected: 12/02/2024 (Approximate), Expires: 12/02/2024 Start: 11-29-2024 Adult BMI Screening Adult BMI Screen ing [facility] Start: 11-29-2024 Tobacco Screening Tobacco Screening [facility] Start: 11-13-2024 Adult BMI Screening Adult BMI Screen ing [facility] Start: 11-13-2024 Tobacco Screening Tobacco Screening [facility] Start: 11-06-2024 [facility] Start: 10-21-2024 Adult BMI Screening [facility] Start: 10-21-2024 Tobacco Screening Tobacco Screening [facility] Start: 09-17-2024 End: 09-17-2024 US MFM with or without consult US MFM with or without consult Imaging Routine Hypothyroidism affecting , antepartum History of pre-eclampsia in prior , currently in second trimester [place] product of in vitro fertilization (IVF) Expected: 09/17/2024 (Approximate), Expires: 09/17/2024 [place] Work Phone: Comment on above: Expected: 09/17/2024 (Approximate), Expires: 09/17/2024 Start: 09-16-2024 Adult BMI Screening Adult BMI Screen ing [facility] Start: 09-16-2024 Tobacco Screening Tobacco Screening [facility] Start: 08-18-2024 End: 08-18-2024 Patient encounter procedure [facility] Comment on above: Arrived Start: 07-02-2024 End: 07-02-2024 [facility] Start: 07-02-2024 Comprehensive metabo lic 2000 panel - Serum or Plasma [facility] Start: 02-18-2024 End: 02-18-2024 ambulatory 02/18/2024 11:30 AM EDT Visit [facility] [address] [place] [id number] Irma Yi PA [address] [place] [address] [facility] Start: 01-22-2024 End: 01-22-2024 Patient encounter procedure 01/22/2024 9:40 AM EDT Office Visit [facility] [address] [place] [address] Bryan Ospina DO [address] [place] [address] [facility] Start: 01-20-2024 Influenza vaccination [facility] Start: 01-11-2024 End: 01-11-2024 Patient encounter procedure [facility] Start: 12-24-2023 End: 12-24-2023 Telemedicine consultation with patient 12/24/2023 10:30 AM EDT Telemedicine [facility] [address] [place] [address] Priya Castillo, STACY [facility] [address] [address] [facility] Start: 11-30-2023 End: 11-30-2023 Patient encounter procedure [facility] Start: 11-14-2023 End: 11-14-2023 Patient encounter procedure 11/14/2023 1:00 PM EDT Office Visit [facility] [address] [place] [address] Dilshad Fraga, EMELI-LAURA [address] [place] [address] [facility] Start: 10-22-2023 End: 10-22-2023 Patient encounter procedure 10/22/2023 11:15 AM EDT Appointment [facility] [address], [place] [phone] [facility] - [facility] US Imaging Start: 10-01-2023 End: 10-01-2023 Telemedicine consultation with patient 10/01/2023 9:30 AM EDT Telemedicine Maternal- Medicine at [facility] [address] [place] [phone] Kaitlyn Jasso MD [address] [place] [address] Anabelle Cotto, DEBI [address], [address] [place] [address], [place] [address] Maternal- Medicine at [facility] Start: 09-17-2023 End: 09-16-2024 Unlisted Lab Test Unlisted Lab Test Lab Routine 21 weeks gestation of Hypothyroidism affecting , antepartum History of pre-eclampsia in prior , currently in second trimester Other obesity due to excess calories affecting in second trimester resulting from assisted reproductive technology in second trimester Opioid dependence in remission ([facility]) History of intravenous drug abuse Exocrine pancreatic insufficiency Bilateral lower extremity edema Expected: 09/17/2023 (Approximate), Expires: 09/16/2024 [facility] Comment on above: Expected: 09/17/2023 (Approximate), Expires: 09/16/2024 Start: 09-17-2023 End: 09-17-2023 Patient encounter procedure 09/17/2023 8:45 AM EDT Office Visit Maternal- Medicine at [facility] [address] [place] [phone] Kaitlyn Jasso MD [address] [place] [address] Maternal- Medicine at [facility] Start: 09-17-2023 End: 09-17-2023 Patient encounter procedure 09/17/2023 7:30 AM EDT Appointment [facility] US Imaging [address] [place] [address] [facility] US Imaging Start: 05-01-2023 [facility] Start: 03-15-2023 [facility] Start: 01-19-2023 COVID-19 Vaccine () COVID-19 Vaccine () [facility] Start: 01-19-2023 Influenza vaccination Influenza Vacc ine [facility] Start: 12-30-2021 Adult BMI Screening Adult BMI Screen ing [facility] Start: 2015 Screening for malign ant neoplasm of cervix [facility] Start: 2006 Screening for malign ant neoplasm of cervix Pap Smear [facility] Start: 2003 Adult BMI Follow Up Plan Adult BMI Follow Up Plan [facility] Start: 1997 Depression Screening Depression Scre ening [facility] Start: 1997 Tobacco Screening Tobacco Screening [facility] Albumin/Globulin ratio [facility] Anion gap measurement [facility] Basophils [#/volume] in Blood by Automated count [facility] Basophils/100 leukocytes in Blood by Automated count [facility] Cytology Cervical or vaginal smear or scraping study Pap Smear Pathology and Cytology Routine Well woman exam with routine gynecological exam Ordered: 08/18/2024 [facility] Work Phone: Comment on above: Ordered: 08/18/2024 Eosinophils/100 leukocytes in Blood by Automated count [facility] Erythrocyte distribution width [Ratio] by Automated count [facility] Erythrocytes [#/volu me] in Blood [facility] Globulin [Mass/volum e] in Serum [facility] Hematocrit [Volume Fraction] of Blood [facility] Hemoglobin [Mass/volume] in Blood [facility] Human papilloma viru s DNA [Presence] in Unspecified specimen by Probe with amplification HPV DNA probe, amplified Microbiology Routine Well woman exam with routine gynecological exam Ordered: 08/18/2024 [facility] Comment on above: Ordered: 08/18/2024 Leukocytes [#/volume ] corrected for nucleated erythrocytes in Blood by Automated coun [facility] Leukocytes [#/volume ] in Blood [facility] Lymphocytes [#/volum e] in Blood by Automated count [facility] Lymphocytes/100 leukocytes in Blood by Automated count [facility] MCH [Entitic mass] b y Automated count [facility] MCHC [Mass/volume] b y Automated count [facility] MCV [Entitic volume] by Automated count [facility] Monocytes [#/volume] in Blood by Automated count [facility] Monocytes/100 leukocytes in Blood by Automated count [facility] Neutrophils [#/volum e] in Blood by Automated count [facility] Neutrophils/100 leukocytes in Blood by Automated count [facility] Nucleated erythrocyt es [Presence] in Blood by Automated count [facility] Platelet mean volume [Entitic volume] in Blood by Automated count [facility] Platelets [#/volume] in Blood [facility] End: 09-16-2024 Thiamin Vitamin B1, whole blood Thiamin Vitamin B1, whole blood Lab Routine 21 weeks gestation of Exocrine pancreatic insufficiency 1 Occurrences starting 09/17/2023 until 09/16/2024 [facility] Work Phone: Comment on above: 1 Occurrences starti ng 09/17/2023 until 09/16/2024 Thiamine [Mass/volum e] in Blood Thiamin Vitamin B1, whole blood Lab Routine 21 weeks gestation of Exocrine pancreatic insufficiency 09/17/2023 10:27 AM EDT [facility] End: 09-16-2024 Urine protein creatinine ratio Urine protein creatinine ratio Lab Routine 21 weeks gestation of History of pre-eclampsia in prior , currently in second trimester 1 Occurrences starting 09/17/2023 until 09/16/2024 [facility] [employer] Comment on above: 1 Occurrences starti ng 09/17/2023 until 09/16/2024 Immunizations Immunization Date Immunization Notes Care Provider [facility] 04-20-2024 influenza virus vaccine, unspecified formulation Irma VICENTE Work Phone: [facility] 04-09-2023 influenza virus vaccine, unspecified formulation Kaitlyn Jasso MD Work Phone[facility] 02-03-2020 influenza virus vaccine, unspecified formulation Kaitlyn Jasso MD Work Phone: [employer] 01-19-2016 tetanus toxoid, redu darya diphtheria toxoid, and acellular pertussis vaccine, adsorbed Irma Burt [facility] Comment on above: Reason for Medicatio n: Other (see comment) Payers Date Payer Category Payer Self-pay [id number] 2023 Managed Care Other (unspecified) [facility] [id number] 2023 Private Health Insurance [id number] [id number] 2018 Private Health Insurance [id number] [id number] 2018 Worker's Compensation WORKER'S C OMPENSATION WORKER'S [id number] 2018-Present [id number] [id number] [id number]. 2.7.3.350729.315 1985 Unknown [id number] 2.16.840.1.847987.3.579. 2.1286 1985 Unknown [id number] 2.16.840.1.576951.3.579. 2.1285 1985 Unknown [id number] 2.16.840.1.940653.3.579. 2.1285 1985 Unknown [id number] 2.16.840.1.656186.3.579. 2.1285 1985 Unknown [id number] 2.16.840.1.103405.3.579. 2.1285 1985 Unknown [id number] 2.16840.1.398349.3.579. 2.1285 1985 Unknown [id number] 2.16.840.1.679500.3.579. 2.1285 1985 Unknown [id number] 2.840.1.117753.3.579. 2.1285 1985 Unknown [id number] 2.840.1.097496.3.579. 2.1285 1985 Unknown [id number] 2.840.1.183532.3.579. 2.1285 1985 Unknown [id number] 2.840.1.701634.3.579. 2.1285 1985 Unknown [id number] 2.840.1.215882.3.579. 2.1285 1985 Unknown [id number] 2.16.840.1.086678.3.579. 2.727 1985 Unknown [id number] 2.840.1.905374.3.579. 2.1258 1985 Unknown [id number] 2.16.840.1.170866.3.579. 2.1258 1985 Unknown [id number] 2.16.840.1.983529.3.579. 2.1258 1985 Unknown [id number] 2.16.840.1.508653.3.579. 2.1258 1985 Unknown [id number] 2.16.840.1.746054.3.579. 2.1259 1985 Unknown [id number] 2.16.840.1.636868.3.579. 2.9 1985 Unknown [id number] 2.16.840.1.320316.3.579. 2.1258 1985 Unknown [id number] 2.16.840.1.355149.3.579. 2.1258 1985 Unknown [id number] 2.16.840.1.262709.3.579. 2.1258 1985 Unknown [id number] 2.16.840.1.228600.3.579. 2.1258 1985 Unknown [id number] 2.16.840.1.847832.3.579. 2.9 Medicaid [id number] Private Health Insurance [id number] 2.16.840.1.738278.19 Unknown [employer] [id number] Unknown [id number] 2.16.840.1.496157.3.579. 2.531 Social History Date Type Detail Facility Start: 06-30-2020 End: 11-30-2023 Sex Assigned At [facility] Start: 03-15-2023 End: 09-17-2023 Tobacco smoking status [facility] Ex-smoker (finding) [facility] Start: 1985 Sex Assigned At Female F [facility] Tobacco Current vaping o r e-cigarette use Smokeless Tobacco Use:. Vaping, Yes [facility] Tobacco smoking status No Smokin g Status Entered [facility] Tobacco smoking stat us [facility] Tobacco smoking consumption unknown [facility] Start: 1985 Sex assigned [facility] of tobacco use Current sm[facility] History of tobacco use [facility] Start: 11-17-2020 End: 09-17-2023 Tobacco use and exposure Smokeless tobacco non-user [facility] Start: 11-30-2023 End: 04-18-2024 Alcoholic beverage intake Ex-drinker (finding) [facility] Start: 06-30-2020 End: 11-30-2023 History of Social function [facility] Childcare Unknown [facility] Start: 11-17-2020 Alcohol Comment social [facility] Start: 12-22-2014 End: 07-02-2024 Sex Female (finding) [facility] Start: 05-04-2023 [facility] Start: 11-17-2020 Tobacco smoking stat [facility] Smokes tobacco daily [facility] Start: 07-26-2023 Alcohol intake Current drinke r of alcohol (finding) [facility] Medical Equipment Procedure Code Equipment Code Equipment Origin al Text Equipment Identifier Dates [id number], [id number], [id number], [id number], [id number] Start: 10-26-2023 End: 01-22-2024 Goals Date Patient Goal Desired [...] MEDICATIONS Current Outpatient Medications Medication Instructions Creon [id number] units capsule delayed-release particles capsule TAKE 2 [...] nursing note reviewed. Exam conducted with a fur dresser present. Vitals: There is no height or [...] of: JULES Baldwin documented in this encounter [facility] 06-25-2024 Evaluation note Diagnosis Onset Date Resolution Diarrhea acute June 25, 2024 9:48am Fatty liver acute June 25, 2024 9:48am [facility] Work Phone: 1(572) 606-444109-30-2024 History of Present illness Narrative* JULES Baldwin [...] for a total of 4times daily. Creon 88894-449715 units capsule delayed-release particles capsule TAKE 2 [...] annual unless needed otherwise. documented in this encounterC[facility] [id number] History of Present illness Narrative* JULES Baldwin [...] to check FSBS. Blood Glucose Monitoring Suppl (Taxi 24/7 Glucometer) w/Device kit 1 kit, Does not apply, Daily, Use four times daily to check FSBS. In the morning prior to breakfast & 1 hour after each meal for a total of 4times daily. Creon 98342-872797 units capsule delayed-release particles capsule TAKE 2 [...] Documented by JULES Baldwin on behalf of: Bryan Ospina DO documented in this encounterCarondelet [id number] Miscellaneous Notes* Telephone Encounter - Zeinab Serrano RN - 01/02/2024 4:28 PM EDT Received BG results and all but 4 are in target range since her last adjustment.No pattern noted. Called and left message of praise for all efforts and to call if questions. To send next week again. No changes. [facility] Telephone encounter Note* Telephone Encounter - Zeinab Serrano RN - 01/02/2024 4:28 PM EDT Received BG results and all but 4 are in target range since her last adjustment.No pattern noted. Called and left message of praise for all efforts and to call if questions. To send next week again. No changes. [facility]08-05-2024 History of Present illness Narrative* Priya Castillo PA-C - 12/24/2023 10:30 AM EDT Maternal- Medicine Consultation VIDEO Patient is present at home , provider present at [facility] HISTORY OF PRESENT ILLNESS: Laura Alves is a 38 y.o. female at 35w3d due on Estimated Date of Delivery: 01/25/24 complicated by GDMA2 Patient is feeling well today. She denies contractions, vaginal bleeding, leaking fluid. She appreciates movement. Patient denies headache, right upper abdominal pain,chest pain. Does note thatshe has increase in overall swelling - rings feel tighter and has in lower extremities. Also says oc casionally has blurry vision, where she tries to focus on something and has to do a double take, then resolves. No white or black flashes of light in vision, no visual loss. The bouts of blurry vision have been going on 'for half of ' BG log review: F: 76-113, #1 >95 PPB: 112-150, #2 >140 PPL: 112-132 PPD: 86-179, #3 >140 Unable to recall what she had to eat with post prandials >140 Denies any values <60 day or night 110-120s/unknown, does not recall bottom number. Says was told BP normal at OB visit last week. LMP 05/09/2023 PAST OBSTETRICAL HISTORY: OB History 3 Para 2 Term 2 AB Living 2 SAB IAB Ectopic Multiple Live Births 2 SURGICAL HISTORY: Past Surgical History: Procedure Laterality Date HYSTEROSCOPY 10/25/2022 TRANSFER EMBRYO INTRAUTERINE 05/09/2023 DAY 5 ALLERGIES: No Known Allergies CURRENT MEDICATIONS: Current Outpatient Medications: aspirin 81 mg, Take 1 tablet (81 mg total) by mouth in the morning., Disp: , Rfl: blood sugar diagnostic strip, Check fingersticks 4 times daily, fasting and 1 hour postprandial, Disp: 120 strip, Rfl: 6 cyanocobalamin (VITAMIN B12) 1,000 mcg tablet, sublingual, PLACE 1 TABLET (1,000 MCG TOTAL) UNDER THE TONGUE IN THE MORNING., Disp: 30 tablet, Rfl: 2 ferrous sulfate 325 (65 FE) mg tablet, take 1 tablet by mouth every day with breakfast, Disp: 30 tablet, Rfl: 1 insulin glargine (LANTUS SOLOSTAR U-100 INSULIN) 100 unit/mL (3 mL) insulin pen, Inject 10U in AM and 31U in PM, prime with 2U, Disp: 15 mL, Rfl: 0 insulin lispro (HumaLOG) 100 unit/mL insulin pen, Inject 5 units before breakfast, 4 units before lunch, 6 units before dinner, Disp: 15 mL, Rfl: 1 lancets 30 gauge misc, Check fingersticks 4 times daily, fasting and 1 hour postprandial with breakfast lunch and dinner, Disp: 100 each, Rfl: 1 levothyroxine (SYNTHROID, LEVOTHROID) 75 MCG tablet, Take 1 tablet (75 mcg total) by mouth in the morning., Disp: , Rfl: nlnuso-avdbqjxz-brkdgju (CREON) 36,000-114,000- 180,000 unit capsule,delayed release(DR/EC), Take 1capsule (36,000 units of lipase total) by mouth 3 (three) times a day., Disp: , Rfl: pen needle, diabetic (BD ULTRA-FINE LELAND PEN NEEDLE) 32 gauge x 5/32 needle, Use a new needle witheach injection 5 times daily, Disp: 100 each, Rfl: 3 vit,ruby 74/iron/folic ( VITAMIN 1+1 ORAL), Take by mouth., Disp: , Rfl: sertraline (ZOLOFT) 50 mg tablet, Take 1 tablet (50 mg total) by mouth in the morning., Disp: , Rfl: LABS: Lab Results Component Value Date TSH 0.78 09/17/2023 No components found for: UPRC Lab Results Component Value Date CREATININE 0.46 09/17/2023 BUN 8 09/17/2023 K 4.0 09/17/2023 CL 104 09/17/2023 CO2 24 09/17/2023 Lab Results Component Value Date ALT 11 09/17/2023 AST 13 09/17/2023 ALKPHOS 71 09/17/2023 Lab Results Component Value Date HGBA1C 5.2 02/08/2021 No components found for: POCA1C REVIEW OF SYSTEMS: Head and Neck: Negative for any dizziness and headaches. Cardiovascular and Respiratory System: Denies any chest pain, shortness of breath, and coughing. Abdominal and System: Denies any abdominal pain, nausea, vomiting, vaginal bleeding, and vaginaldischarge PHYSICAL EXAMINATION: Gen: NAD, speaking clear full sentences, does not appear SOB at rest. DISCUSSION Glucose goals in : Fasting 60 - 95: Mean fasting glucose values are important in managing diabetes in women because they provide overall glycemic estimate, and are predictive of increased fat mass in the women s offspring. Increased fat mass has been shown to be associated with the development of childhood obesity, and diabetes. One hour postprandial 90 - 140: Postprandial measurements are important in management of diabetes in because they are associated with incidence of large for gestational age infants, and lower rates of delivery for cephalopelvic disproportion when well controlled. Discussed monitoring for hypogylcemia, signs/symptoms of hypoglycemia, and examples of treatment ofhypoglycemia ( rule). Discussed her current diet and her awareness of grams of carbohydrate per meal. Reviewed recommendations - 30g carbohydrate for breakfast, 45-60g carbohydrate for lunch and dinner, 15g carbohydrate for snacks, incorporating sufficient protein with each meal and ideally having half of plate be fruits and vegetables (with awareness of which fruits typically spike blood glucose). Encouraged her to be aware of carbohydrate intake and note which foods causing values above goal. Encouraged her on diet modifications. Current blood glucose control: fastings, PPB and PPL well controlled. PPD widely varying. Encouraged patient to try to have consistent grams carbohydrate Labs - A1c - 5.0 on 11/07/23 - Baseline preeclampsia labs: CMP, Plts, urine P/C ratio - done PLAN - Medication: - Lantus 10u qam, 31u qpm - continue - Humalog - change to - Continue aspirin 81mg once daily - growth ultrasounds every 4 weeks after 28 weeks - Last growth done 11/29: EFW at 2264g, 90th%ile, AC >99, mild poly at 8.87 - growth scan one week before planned delivery if attempt for a vaginal delivery - Recommend the following for testing, which can be done with primary OB: - NST and VONNIE once weekly at 32 weeks - NST twice weekly and VONNIE once weekly at 36 weeks - Delivery recommendations : - Recommend delivery at 19m5p-95h2s - Discuss delivery if estimated weight is >4500g - Use 1/2 dose of PM long acting insulin yesenia. the night before her planned delivery. On morning of delivery, do not have AM dose of long acting. Ok to take normal dose of rapid acting evening prior to delivery - discussed with patient - Given GDMA2, can monitor patient's BG every 4hrs during latent labor, every 1 hr during active labor with goal BG to be less than 140mg/dl. Can use insulin sliding scale prn hyperglycemia. Once delivered, checked blood glucose fasting and 1hr post prandial, with goal of 100-130mg/dl for fasting and <180mg/dl for random or post prandial blood glucose levels - Obtain a 2-hour GTT 6-8 weeks . Also recommend yearly evaluation of blood glucose as patient is at an increased risk of developing diabetes later on - discussed with patient - Thyroid levels - believes had drawn 2 weeks ago, was not told to change treatment thus far. We recommend TSH be maintained less than 2.0-2.5 Labor symptoms, preeclampsia sign/symptoms, and movement precautions reviewed. Please assure patient's blood pressure is checked at her BPP today given her increase in edema. Reviewed precautions / symptoms to contact provider with, as well as BP parameter (>140/>90) Follow up in 2 weeks with Maternal- Medicine MD as scheduled I asked her to keep sending values to us weekly by e-mail to: or by fax to: [phone] Priya Castillo PA-C Maternal- Medicine Office phone: [phone] Priya Castillo PA-C 12/24/23 1152 documented in [facility] encounterBer[facility]07-[facility]24 Miscellaneous Notes* Telephone Encounter - Zeinab Serrano RN - 12/18/2023 7:00 PM EDT Called pt to discuss her insulin changes and received voicemail. Left her a message that Priay Castillo reviewed her blood sugars and would like her to increase her Lantus in the evening to 31 units. She would also like her to increase her before breakfast humalog to 5 units. She did call back whilewriting this note and verifies that she got these new insulin changes. documented in this encounterBerger Hospital07-30-2024 Telephone encounter Note* Telephone Encounter - Zeinab Serrano RN - 12/18/2023 7:00 PM EDT Called pt to discuss her insulin changes and received voicemail. Left her a message that Priya Castillo reviewed her blood sugars and would like her to increase her Lantus in the evening to 31 units. She would also like her to increase her before breakfast humalog to 5 units. She did call back whilewriting this note and verifies that she got these new insulin changes. [facility]07-22-2024 Miscellaneous Notes* Telephone Encounter - Zeinab Serrano RN - 12/10/2023 6:32 PM EDT Called pt to discuss her insulin changes and received voicemail. Left her a message that Priya castillo reviewed her blood sugars and would like her to increase her before dinner humalog to 6 units. She would also like her to start 4 units before breakfast and start 4 units before lunch as well. Asked her to please call back to verify that she got these new insulin changes for this week. documented in this encounterBerger Hospital07-22-2024 Telephone encounter Note* Telephone Encounter - Zeinab Serrano RN - 12/10/2023 6:32 PM EDT Called pt to discuss her insulin changes and received voicemail. Left her a message that Priya castillo reviewed her blood sugars and would like her to increase her before dinner humalog to 6 units. She would also like her to start 4 units before breakfast and start 4 units before lunch as well. Asked her to please call back to verify that she got these new insulin changes for this week. [facility]07-18-2024 Miscellaneous Notes* Telephone Encounter - Charis Mcmanus RN - 12/06/2023 1:26 PM EDTSummary: [facility] Blood Glucose Log & Insulin Dose Changes Called. No answer. Message left inquiring whether received message earlier this week regarding Priya Castillo PA reviewed BG log; increased Lantus evening dose to 25 Units daily;and added Humalog 4 Units before dinner daily. Informed that Humalog should be injected in the belly and taken 15 minutes prior to eating. Noted Lantus morning dose will remain the same. Requested return call to verify received these insulin dose changes. [employer] message sent. documented in this encounterBerger Hospital07-18-2024 Telephone encounter Note* Telephone Encounter - Charis Mcmanus RN - 12/06/2023 1:26 PM EDT Summary: [facility] Blood Glucose Log & Insulin Dose Changes Called. No answer. Message left inquiring whether received message earlier this week regarding Priya VICENTE reviewed BG log; increased Lantus evening dose to 25 Units daily;and added Humalog 4 Units before dinner daily. Informed that Humalog should be injected in the belly and taken 15 minutes prior to eating. Noted Lantus morning dose will remain the same. Requested return call to verify received these insulin dose changes. [employer] message sent. [facility] Work Phone: 1(808) 362-375907-16-2024 Miscellaneous Notes* Telephone Encounter - Zeinab Serrano RN - 12/04/2023 3:42 PM EDT Called pt to discuss her insulin change and received voicemail. Left her a message that. Priya Castillo reviewed her blood sugars and would like her to increase her Lantus in the evening to 25 units. She would also like her to start humalog 4 units 15 min before supper. She needs to prime her new short acting pen the same as her lantus before dialing her actua dose. She will give the 4 units 15 min prior to supper. She needs to be ready for a snack about 3 hours later because she will be at greater risk for a low blood sugar at that time. Asked her to please call back to verify she got these new insulin changes. documented in this encounterBer[facility]24 Telephone encounter Note* Telephone Encounter - Zeinab Serrano RN - 12/04/2023 3:42 PM EDT Called pt to discuss her insulin change and received voicemail. Left her a message that. Priya Castillo reviewed her blood sugars and would like her to increase her Lantus in the evening to 25 units. She would also like her to start humalog 4 units 15 min before supper. She needs to prime her new short acting pen the same as her lantus before dialing her actua dose. She will give the 4 units 15 min prior to supper. She needs to be ready for a snack about 3 hours later because she will be at greater risk for a low blood sugar at that time. Asked her to please call back to verify she got these new insulin changes. [facility]07[facility] History of Present illness Narrative* Kaitlyn Jasso MD - 11/30/2023 2:00 PM EDT REASON FOR CONSULTATION: GDMA HISTORY OF PRESENT ILLNESS: Laura Alves is a pleasant 38 y.o. at 32w0d by 5day embryotransfer due on Estimated Date of Delivery: 01/25/24. complicated by: GDMA2 - Currently on lantus 18U qhs. Review of blood glucose logs from 11/18 - 11/25/2023 with fasting hyperglycemia and elevated postprandials for breakfast and intermittently for lunch and dinner. 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 Cell free DNA is consistent with female phenotype. Polyhydramnios, mild, new finding History of preeclamspia x2 Hypothyroidism - currently on levothyroxine 75mcg, not on medications prior to . Most recent TSH 0.78 on 09/17/23. Anxiety/depression - currently managed on zoloft 50mg daily, mood stable. 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 She denies headaches, vision changes, nausea, vomiting, right upper quadrant or epigastric pain, SOB or chest pain. She denies contractions, vaginal bleeding, leaking of fluid. She reports good movement. Aneuploidy screening: declined, performed PGD and was told XY --> cell free DNA confirmed XX genetics, consistent with female phenotype Carrier screening: none Baby girl: wade. ALLERGIES: No Known Allergies CURRENT MEDICATIONS: Current Outpatient Medications: aspirin 81 mg, Take 1 tablet (81 mg total) by mouth in the morning., Disp: , Rfl: blood sugar diagnostic strip, Check fingersticks 4 times daily, fasting and 1 hour postprandial, Disp: 120 strip, Rfl: 6 cyanocobalamin (VITAMIN B12) 1,000 mcg tablet, sublingual, Place 1 tablet (1,000 mcg total) under the tongue in the morning., Disp: 30 tablet, Rfl: 2 ferrous sulfate 325 (65 FE) mg tablet, take 1 tablet by mouth every day with breakfast, Disp: 30 tablet, Rfl: 1 insulin glargine (LANTUS SOLOSTAR U-100 INSULIN) 100 unit/mL (3 mL) insulin pen, Prime with 2 unitsthen inject 18 units sq into ABD, Disp: 15 mL, Rfl: 0 lancets 30 gauge misc, Check fingersticks 4 times daily, fasting and 1 hour postprandial with breakfast lunch and dinner, Disp: 100 each, Rfl: 1 levothyroxine (SYNTHROID, LEVOTHROID) 75 MCG tablet, Take 1 tablet (75 mcg total) by mouth in the morning., Disp: , Rfl: exnsln-rcgexfgz-ivmbvyh (CREON) 36,000-114,000- 180,000 unit capsule,delayed release(DR/EC), Take 1capsule (36,000 units of lipase total) by mouth 3 (three) times a day., Disp: , Rfl: pen needle, diabetic (BD ULTRA-FINE LELAND PEN NEEDLE) 32 gauge x 5/32 needle, Use a new needle witheach injection, Disp: 100 each, Rfl: 3 vit,ruby 74/iron/folic ( VITAMIN 1+1 ORAL), Take by mouth., Disp: , Rfl: sertraline (ZOLOFT) 50 mg tablet, Take 1 tablet (50 mg total) by mouth in the morning., Disp: , Rfl: REVIEW OF TESTS AND ULTRASOUND REPORTS: Referral records and epic chart were reviewed Pertinent Ultrasound findings are see formal ultrasound report. PHYSICAL EXAMINATION: Ht 170.2 cm (5' 7.01 ) Wt 116.9 kg (257 lb 12.8 oz) LMP 05/09/2023 BMI 40.37 kg/m Well-appearing in no distress. Respirations not labored, speaking comfortably in full sentences Gravid abdomen +3 pitting edema to knees OVERALL ASSESSMENT -Laura Alves is a pleasant 38 y.o. at 32w0d -IVF -obesity, BMI 38 -polyhydramnios -hypothyroidism -exocrine pancreatic insufficiency -anxiety/depression -opioid dependence, in remission -history of IV drug use, in remission -history of hepatitis-C -low-lying placenta COUNSELING Glucose goals in : Fasting 60 - 95: Mean fasting glucose values are important in managing diabetes in women because they provide overall glycemic estimate, and are predictive of increased fat mass in the women s offspring. Increased fat mass has been shown to be associated with the development of childhood obesity, and diabetes. One hour postprandial 90 - 140: Postprandial measurements are important in management of diabetes in because they are associated with incidence of large for gestational age infants, and lower rates of delivery for cephalopelvic disproportion when well controlled. Discussed monitoring for hypogylcemia, and treatment of hypoglycemia. Discussed her current diet and her awareness of grams of carbohydrate per meal. Encouraged her to be aware of carbohydrate intake and note which foods causing values above goal. Encouraged her on diet modifications. SUMMARY/RECOMMENDATION: Complete level 2 anatomy and echocardiogram without evidence of structural disease Current blood glucose control: fair Medications: currently on lantus 18U qhs; increase to lantus 10U in AM and 20U in PM Continue evaluation for micronutrient deficiencies every trimester: CBC, ferritin, B12, calcium andVitamin D , through primary OB Continue Zoloft 50 mg daily Continue baby aspirin for attempeted preeclampsia prevention Continue levothyroxine 75mcg daily Check thyroid function tests 3 weeks after dose change or every 6-8wks once stable, TSH goal <2.5 Check hepatitis-C viral load in 3rd trimester, through primary OB Recommend the following for testing, which can be done with primary OB: NST/VONNIE weekly at 32 weeks NST twice weekly and VONNIE weekly at 36 weeks Delivery recommendations : Recommend delivery at [id number] Discuss delivery if estimated weight is >4500g Use 1/2 dose of insulin the night before her planned delivery. Will discuss at later gestation If patient deliveries by section, recommend anti coagulation during hospitalization with Lovenox 40 mg daily No indication for levothyroxine as patient was not on any levothyroxine prior to and IVF transfer Obtain a 2-hour GTT 6-8 weeks . Also recommend yearly evaluation of blood glucose as patient is at an increased risk of developing diabetes later on. Monitor for signs symptoms of depression DISPOSITION: At this point the patient is in complete care of her primary care nurse practitioner. Patient does have ultrasound and office visit scheduled with us. Thank you for allowing me to participate in the care of Laura Alves. If there any questions please do not hesitate to contact us. Kaitlyn Jasso MD Maternal- Medicine [facility] [address] [place] [address] [facility], the CDC, and other organizations representing maternal and public health professionals recommend that , , and lactating people and those considering receive the COVID-19 vaccination. Vaccination is the best method to reduce maternal and complications of SARS-CoV-2 infection. This document was created with [email or web address] technology. Though I make every effort to review the dictation as it is transcribed, on occasion the spoken word can be misinterpreted by the technology leading to inappropriate words, phrases, or sentences. This note is addressed to the requesting provider as a consultation for clinical guidance. Specificmedical abbreviations are occasionally used and those are generally approved by the [place]?Board of?Obstetrics and?Gynecology?as well as?Flora spencer abbreviations. The above plan of care was based solely on the diagnoses for which a consultation was requested. ?More frequent testing may be indicated based on her other medical/obstetrical conditions. The management of other or medical conditions is beyond the scope of requested consultation and will c ontinue to be followed by the primary primary care nurse practitioner or primary care provider. Note to patient: The Century Cures Act makes medical notes like these available to patients inthe interest of transparency. However, be advised this is a medical document. It is intended as peer to peer communication. It is written in medical language and may contain abbreviations or verbiagethat are unfamiliar. It may appear blunt or direct. Medical documents are intended to carry relevant information, facts as evident, and the clinical opinion of the practitioner. * Marylin Shipman CMA - 11/30/2023 2:00 PM EDT Headache/epigastric pain/blurry vision/swelling? No Cramping/contractions? Little marsha gómez Abnormal vaginal discharge? No Spotting or vaginal bleeding? No Loss of fluid like your water may have broken? No Recent ER visits or hospitalizations? No Any concerns that you would like me to mention to the provider today? No documented in this encounterBerger Hospital07-02-2024 Miscellaneous Notes* Telephone Encounter - Zeinab Serrano RN - 11/20/2023 12:02 PM EDT Called pt to discuss her insulin change.Dr Jasso reviewed her blood sugars and would like her toincrease her Lantus in the evening to 18 units. Pt verbalized understanding and will start tonight.She will send in new blood sugars next week. documented in this encounterBerger Hospital07-02-2024 Telephone encounter Note* Telephone Encounter - Zeinab Serrano RN - 11/20/2023 12:02 PM EDT Called pt to discuss her insulin change.Dr Jasso reviewed her blood sugars and would like her toincrease her Lantus in the evening to 18 units. Pt verbalized understanding and will start tonight.She will send in new blood sugars next week. [facility] Miscellaneous Notes* Telephone Encounter - Whitney Russo RN - 11/19/2023 8:10 AM EDT Patient calling with complaints of lower back pain that is most painful when patient moves around. Patient denies spotting,bleeding.leaking fluid and contractions. Patient states she feels better when she sits down with a heating pain but as soon as she moves around it hurts. Patient stated at times 10/10 pain with crying. Test Driver encouraged patient to contact her PCP or present to her nearest urgent care or ER if pain does not subside. Patient verbalized understanding. documented in this encounterBerger Hospital07-01-2024 Telephone encounter Note* Telephone Encounter - Whitney Russo RN - 11/19/2023 8:10 AM EDT Patient calling with complaints of lower back pain that is most painful when patient moves around. Patient denies spotting,bleeding.leaking fluid and contractions. Patient states she feels better when she sits down with a heating pain but as soon as she moves around it hurts. Patient stated at times 10/10 pain with crying. Test Driver encouraged patient to contact her PCP or present to her nearest urgent care or ER if pain does not subside. Patient verbalized understanding. [facility] History of Present illness Narrative* Janet Rosario CMA - 11/14/2023 1:00 PM EDT Headache/epigastric pain/blurry vision/swelling? Patient states she has been experiencing all of the above. Cramping/contractions? no Abnormal vaginal discharge? no Spotting or vaginal bleeding? no Loss of fluid like your water may have broken? no Recent ER visits or hospitalizations? no Any concerns that you would like me to mention to the provider today? Patient would like to discussback pain and foot pain associated with swelling while working. * Dilshad Fraga APRN-MAILROOM MESSENGER - 11/14/2023 1:00 PM EDT REASON FOR OFFICE VISIT: [employer] 1. GDMA2; A1c 5.0% 2. IVF donor egg - cfDNA low risk female, PGT testing 3. Polyhydramnios 4. Low lying placenta 5. Pre-eclampsia x 2 6. Hypothyroidism on synthroid- repeat labwork every 4-6 wks in - completed yesterday 7. Hx Hep C treatment in 2018 8. Hx IVDU 8 years ago HISTORY OF PRESENT ILLNESS: Laura Alves is a pleasant 38 y.o. at 29w5d due on Estimated Date of Delivery: 01/25/24. Currently the patient has no complaints. The patient denies HOLLY, nausea, vomiting, abdominal pain, vaginal bleeding, contractions, leaking fluid or chest pain. +FM. She is being followed at [facility] due to GDMA2. States she is following meal plan as much as possible and eating evening snack. FBS - 91-107 1 HR Postprandial - 84-183 Past Medical History PAST OBSTETRICAL HISTORY: OB History 3 Para 2 Term 2 AB Living 2 SAB IAB Ectopic Multiple Live Births 2 SURGICAL HISTORY: Past Surgical History: Procedure Laterality Date HYSTEROSCOPY 10/25/2022 TRANSFER EMBRYO INTRAUTERINE 05/09/2023 DAY 5 ALLERGIES: No Known Allergies CURRENT MEDICATIONS: Current Outpatient Medications: aspirin 81 mg, Take 1 tablet (81 mg total) by mouth in the morning., Disp: , Rfl: blood sugar diagnostic strip, Check fingersticks 4 times daily, fasting and 1 hour postprandial, Disp: 120 strip, Rfl: 6 cyanocobalamin (VITAMIN B12) 1,000 mcg tablet, sublingual, Place 1 tablet (1,000 mcg total) under the tongue in the morning., Disp: 30 tablet, Rfl: 2 ferrous sulfate 325 (65 FE) mg tablet, take 1 tablet by mouth every day with breakfast, Disp: 30 tablet, Rfl: 1 lancets 30 gauge misc, Check fingersticks 4 times daily, fasting and 1 hour postprandial with breakfast lunch and dinner, Disp: 100 each, Rfl: 1 levothyroxine (SYNTHROID, LEVOTHROID) 75 MCG tablet, Take 1 tablet (75 mcg total) by mouth in the morning., Disp: , Rfl: avqzcp-hnnvzqwg-cdnnjqv (CREON) 36,000-114,000- 180,000 unit capsule,delayed release(DR/EC), Take 1capsule (36,000 units of lipase total) by mouth 3 (three) times a day., Disp: , Rfl: vit,ruby 74/iron/folic ( VITAMIN 1+1 ORAL), Take by mouth., Disp: , Rfl: sertraline (ZOLOFT) 50 mg tablet, Take 1 tablet (50 mg total) by mouth in the morning., Disp: , Rfl: LABS: Lab Results Component Value Date CREATININE 0.46 09/17/2023 Lab Results Component Value Date TSH 0.78 09/17/2023 No results found for: [id number] Lab Results Component Value Date CREATININE 0.46 09/17/2023 BUN 8 09/17/2023 K 4.0 09/17/2023 CL 104 09/17/2023 CO2 24 09/17/2023 Lab Results Component Value Date ALT 11 09/17/2023 AST 13 09/17/2023 ALKPHOS 71 09/17/2023 Lab Results Component Value Date HGBA1C 5.2 02/08/2021 REVIEW OF SYSTEMS: Head and Neck: Negative for any dizziness and headaches. Cardiovascular and Respiratory System: Denies any chest pain, shortness of breath, and coughing. Abdominal and System: Denies any abdominal pain, nausea, vomiting, vaginal bleeding, and vaginal discharge PHYSICAL EXAMINATION: LMP 05/09/2023 and heart rate present. Gravid abdomen, Alert & Oriented. Respirations not labored. DISCUSSION: Hyperglycemia Importance of good blood sugar control was emphasized. The potential effects of uncontrolled diabetes before and during on herself were discussed including: preeclampsia, induced hypertension, labor, C- section, and polyhydramnios. Potential effects on baby were explained: stillbirth, miscarriage, macrosomia, jaundice, trauma, hypoglycemia, respiratory distress and hypocalcemia. Long-term risk to offspring from poor maternal glycemic control include: obesity, cardiovascular disease, impaired glucose tolerance and Type 2 diabetes. Medication initiation Initiation of medication: When diet and exercise fail to maintain normal blood glucose level, medication therapy is indicated. Medication is initiated when > 20% of the blood glucose values in oneweek are out of range, or BG values are repeatedly elevated a specific time of day; and meal plan or activity cannot be modified to correct elevated blood glucose. Oral vs. SQ treatment Discussed oral hyperglycemic agent Metformin. Explained this medication does cross the placenta andreach the baby. Little research has been done on manager long term care effects of Metformin exposure to the fetus. We do use in with every effort to minimize exposure. Also discussed possible GI side effects from this medication. Discussed insulin which does not cross the placenta, nor have the GI side effects like Metformin. Insulin is the recommended first line of treatment for diabetes in . Insulin administration Patient was instructed on: action of prescribed insulin, when to take prescribed doses in relation to daily schedule/meals, use of an insulin pen, how to given an injection into the sub-Q tissues with recommendation on use of abdomen, rotation of injections within designated site, proper disposal of sharps, and hypoglycemia. Patient education materials given: insulin action chart, hypoglycemia management, proper disposal of sharps, and procedure guide sheet for use of an insulin pen. Recommended carbohydrate allocation ranges: 30-45 g for breakfast, 45-60 g for lunch and dinner, and 15-g snacks roughly 2-3 hours after each meal. A1c less than 6% has the lowest risk for LGA infant SUMMARY/RECOMMENDATION: The following is a summary of our recommendations: 1. Blood work:per primary Ob in the presence of concerning s/s CMP Vitamin D Urine P/C ratio Thyroid Profile in 4-6 wks (had done 11/12) 2. Medication: Basaglar from 10 units subcutaneous at bedtime 3. testing: NST/DVP Twice weekly NSTw/ weekly DVP at 36 weeks growth ultrasounds every 4 weeks starting at 28 weeks 4. Delivery timing: Consider planned delivery at 39 weeks or before if indicated Use 1/2 dose of insulin the night before her planned delivery. Consider using [employer] order set OB DIABETES MANAGEMENT during her labor. No need for insulin use the day of her delivery 5. Post : As she has only gestational diabetes, there is no need for glucose testing or medication after her delivery. Please obtain a 2-hour GTT 4-12 weeks and then A1c yearly as the patient has a 20% risk of having or developing diabetes later on. 6. Follow-up appointment:11/30/23 In 4 weeks to Maternal- Medicine. I asked her to keep sending values to us weekly by e-mail to: [email or web address] or by fax to: [phone] TIME OF CONSULTATION: 25 minutes with the patient, >50% in discussion and counseling, coordination of care which was [id number], review of records and communication back to referring provider. PHANI Otero 11/14/23 1300 documented in this encounterBerger Hospital06-25-2024 Miscellaneous Notes* Telephone Encounter - Zeinab Serrano RN - 11/13/2023 1:11 PM EDT Called pt to discuss her blood sugars. She has many elevations. Received voicemail. Left her a message about the criteria for starting medication recommendations. She can call back to discuss or she can call [phone] option #3 and get an appt sched. documented in this encounterBerger Hospital06-25-2024 Telephone encounter Note* Telephone Encounter - Zeinab Serrano RN - 11/13/2023 1:11 PM EDT Called pt to discuss her blood sugars. She has many elevations. Received voicemail. Left her a message about the criteria for starting medication recommendations. She can call back to discuss or she can call [phone] option #3 and get an appt sched. [facility] Group counseling note* Group Note - Anabelle Cotto RD - 11/07/2023 9:30 AM EDT Patient: Laura Alves Date: 11/07/2023 Vitals: 11/07/23 1607 Weight: 117.5 kg (259 lb) Patient present for diabetes education group class per doctor order secondary to diagnosis of GDM and/or abnormal glucose tolerance. Food recall suggests patient typically consumes a diet of mainly convenience choices. Pt has gained 94 # to date. Weight gain goal is 15-25#. Pt appears willing to make changes. Nutrition diagnosis: inconsistent carbohydrate intake related to lack of nutrition knowledge as evidenced by food log. Instructed pt in 1900 kcal meal plan of 3 meals and 3 snacks, carbohydrate counting, label reading, dining out, and portion control. Energy content of meal plan to be adjusted as needed based on patient's blood glucose control and weight gain/loss. Discussed foods rich in iron and calcium. Encouraged pt to limit dining out and measure carbohydrates for 2 days. To bring 2 day food log and blood glucoses. Please refer to health habits for other goals. Face to face time was 90 minutes. [employer] Work Phone: [phone] Miscellaneous Notes* Group Note - Anabelle Cotto RD - 11/07/2023 9:30 AM EDT Patient: Laura Alves Date: 11/07/2023 Vitals: 11/07/23 1607 Weight: 117.5 kg (259 lb) Patient present for diabetes education group class per doctor order secondary to diagnosis of GDM and/or abnormal glucose tolerance. Food recall suggests patient typically consumes a diet of mainly convenience choices. Pt has gained 94 # to date. Weight gain goal is 15-25#. Pt appears willing to make changes. Nutrition diagnosis: inconsistent carbohydrate intake related to lack of nutrition knowledge as evidenced by food log. Instructed pt in 1900 kcal meal plan of 3 meals and 3 snacks, carbohydrate counting, label reading, dining out, and portion control. Energy content of meal plan to be adjusted as needed based on patient's blood glucose control and weight gain/loss. Discussed foods rich in iron and calcium. Encouraged pt to limit dining out and measure carbohydrates for 2 days. To bring 2 day food log and blood glucoses. Please refer to health habits for other goals. Face to face time was 90 minutes. documented in this encounterBerger Hospital06-07-2024 History of Present illness Narrative* Kaitlyn Jasso MD - 10/26/2023 3:39 PM EDT Called patient to update her that she does in fact have gestational diabetes. Supplies were orderedthrough her pharmacy for her to check her fingersticks 4 times daily. I recommend she check her fingerstick fasting and 1 hour postprandial with breakfast lunch and dinner. The postprandials blood glucose is checked 1 hour after the start of eating. Unfortunately, patient did not pickup her phone. We will also send chart message. She will need diabetic education and nutrition counseling in this . Kaitlyn Jasso MD Maternal- Medicine [address] [place] [address] documented in this encounterBerger Hospital06-03-2024 History of Present illness Narrative* Lavelle Albright CMA - 10/22/2023 12:00 PM EDT Headache/epigastric pain/blurry vision/swelling? No Cramping/contractions? No Abnormal vaginal discharge? No Spotting or vaginal bleeding? No Loss of fluid like your water may have broken? No Recent ER visits or hospitalizations? No Any concerns that you would like me to mention to the provider today? No * Kaitlyn Jasso MD - 10/22/2023 12:00 PM EDT REASON FOR CONSULTATION: add on for polyhydramnios HISTORY OF PRESENT ILLNESS: Laura Alves is a pleasant 38 y.o. at 26w3d by 5day embryotransfer due on Estimated Date of Delivery: 01/25/24. complicated by: IVF , donor egg - Patient underwent PGT testing, was informed XY embryo was transferred. Cell free DNA is consistent with female phenotype. Polyhydramnios, mild, new finding History of preeclamspia x2 Hypothyroidism - currently on levothyroxine 75mcg, not on medications prior to . Most recent TSH0.78 on 09/17/23. Anxiety/depression - currently managed on zoloft 50mg daily, mood stable. Obesity, BMI 38 Exocrine pancreatic insufficiency currently managed on pancreatic enzyme replacement therapy - Follows with Dr Cline ([facility] [place]), A1c 5.3% 07/19/2022 History of hepatitis C - s/p treatment 2018 Opioid dependence, in remission x8 years History of IVDU, last used 8 tyears Low lying placenta, measuring 1.77cm from internal os Today, the patient is doing well. She denies headaches, vision changes, nausea, vomiting, right upper quadrant or epigastric pain, SOB or chest pain. She denies contractions, vaginal bleeding, leaking of fluid. She reports good movement. Aneuploidy screening: declined, performed PGD and was told XY --> cell free DNA confirmed XX genetics, consistent with female phenotype Carrier screening: none Baby girl: wade. ALLERGIES: No Known Allergies CURRENT MEDICATIONS: Current Outpatient Medications: aspirin 81 mg, Take 1 tablet (81 mg total) by mouth in the morning., Disp: , Rfl: cyanocobalamin (VITAMIN B12) 1,000 mcg tablet, sublingual, Place 1 tablet (1,000 mcg total) under the tongue in the morning., Disp: 30 tablet, Rfl: 2 ferrous sulfate 325 (65 FE) mg tablet, Take 1 tablet (325 mg total) by mouth daily with breakfast.,Disp: 30 tablet, Rfl: 1 levothyroxine (SYNTHROID, LEVOTHROID) 75 MCG tablet, Take 1 tablet (75 mcg total) by mouth in the morning., Disp: , Rfl: luxcxy-yjiouypx-cgvimml (CREON) 36,000-114,000- 180,000 unit capsule,delayed release(DR/EC), Take 1capsule (36,000 units of lipase total) by mouth 3 (three) times a day., Disp: , Rfl: vit,ruby 74/iron/folic ( VITAMIN 1+1 ORAL), Take by mouth., Disp: , Rfl: sertraline (ZOLOFT) 50 mg tablet, Take 1 tablet (50 mg total) by mouth in the morning., Disp: , Rfl: REVIEW OF TESTS AND ULTRASOUND REPORTS: Referral records and epic chart were reviewed Pertinent Ultrasound findings are see formal ultrasound report. PHYSICAL EXAMINATION: BP 126/67 Pulse 100 Ht 170.2 cm (5' 7 ) Wt 115.8 kg (255 lb 6.4 oz) LMP 05/09/2023 BMI 40.00 kg/m Well-appearing in no distress. Respirations not labored, speaking comfortably in full sentences Gravid abdomen +3 pitting edema to knees Lab Results Component Value Date HGBA1C 5.2 02/08/2021 OVERALL ASSESSMENT -Laura Alves is a pleasant 38 y.o. at 26w3d -IVF -obesity, BMI 38 -polyhydramnios -hypothyroidism -exocrine pancreatic insufficiency -anxiety/depression -opioid dependence, in remission -history of IV drug use, in remission -history of hepatitis-C -low-lying placenta COUNSELING Polyhydramnios was noted on sonographic assessment today. The degree of polyhydramnios is frequently categorized as mild, moderate, or severe, based on an VONNIE of 24.0-29.9 cm, 30.0-34.9 cm, and >=35 cm, or a DVP of 8-11 cm, 12-15 cm, or >=16 cm, respectively. Using these definitions, she has mild polyhydramnios noted today and that accounts for approximately 65-70% of cases. I discussed with the patient the potential etiologies and complications of polyhydramnios. The mostcommon cause is idiopathic with no known etiology. The second most common etiology is diabetes. Other less likely causes include chromosomal or genetic abnormalities and/or anatomic abnormalities that inhibit normal swallowing. I discussed with her the potential for amniocentesis for definitive diagnosis. We discussed the risk of amniocentesis including infection, rupture of membranes, delivery, and loss. After considering risks versus benefits, the patient chose not to proceed with an amniocentesis. She has had low risk cell free DNA screening. In addition we discussed the increased risk for complications including premature labor, malpresentation, stillbirth, and hemorrhage. Even in the absence of diabetes, idiopathic polyhydramnios is associated with macrosomia in approximately 15-30% of cases, and affected patients are signif icantly more likely to undergo delivery. Progression of polyhydramnios is suggestive of anunderlying structural or genetic etiology. Reports associating idiopathic polyhydramnios with mortality have been inconsistent and there are no data to suggest that surveillance improves outcomes and surveillance is not required for the sole indication of mild idiopathic polyhydramnios. Women with severe polyhydramnios should be delivered at a tertiary center due to the significant possibility that anomalies may be present. Patient was diagnosed with Exocrine pancreatic insufficiency currently managed on pancreatic enzymereplacement therapy - Follows with Dr Cline ([facility] [place]). These records arenot available to me, we have requested records. . We reviewed that exocrine pancreatic insufficiency can be associated with micronutrient deficiencies, insulin resistance (A1c 5.3% 07/19/2022) and micronutrient deficiencies. Patients with pancreatic insufficiency are at increased risk of insufficient weight gain and growth problems in the . Given polyhydramnios, I am concerned for the development of insulin resistance in this . Micronutrient Dosing Recommendations: Calcium: recommend 1000-1200mg daily; if deficient, recommend 1800-67272 mg PO daily in divided doses Vitamin D: recommend 800IU during and ; if deficient, recommend 3000-6000IU of D3 daily Vitamin B1: recommend 50mg daily; if deficient, recommend 100-250mg monthly IM injects or 100mg TIDPO until symptoms resolve Vitamin B12: recommend 35-100mcg daily PO; if deficient, recommend 1000mcg daily PO until level normalize Folate: recommend 800mcg-1000mcg daily PO (do not exceed 1mg daily); if deficient, recommend 1000mcg daily PO until levels normalize Iron: recommend 45-60mg of elemental iron daily from all sources; if deficient, recommend 150-300mgPO BID to TID OR IV iron SUMMARY/RECOMMENDATION: Complete level 2 anatomy and echocardiogram without evidence of structural disease Nutrition consult ordered in setting of exocrine pancreatic insufficiency Continue evaluation for micronutrient deficiencies every trimester: CBC, ferritin, B12, calcium andVitamin D , through primary OB Gestational diabetes screening pending Continue Zoloft 50 mg daily Continue baby aspirin for attempeted preeclampsia prevention Continue levothyroxine 75mcg daily Check thyroid function tests 3 weeks after dose change or every 6-8wks once stable, TSH goal <2.5 Check hepatitis-C viral load in 3rd trimester, through primary OB Repeat growth ultrasound and transvaginal ultrasound at 32 weeks with MFM testing weekly starting at 36wks GA, through primary OB Delivery at 39wk given h/o IVF If patient deliveries by section, recommend anti coagulation during hospitalization with Lovenox 40 mg daily No indication for levothyroxine as patient was not on any levothyroxine prior to and IVF transfer Monitor for signs symptoms of depression DISPOSITION: At this point the patient is in complete care of her primary care nurse practitioner. Patient does have ultrasound and office visit scheduled with us. Thank you for allowing me to participate in the care of Laura Alves. If there any questions please do not hesitate to contact us. Total time spent was 28 minutes: Preparing to see the patient (e.g., review of tests) Obtaining and/or reviewing separately obtained history Performing a medically appropriate examination and/or evaluation Counseling and educating the patient/family/caregiver - 51 min spent in direct patient counseling Ordering medications, tests, or procedures Referring and communicating with other health pediatric acute care unit nurse (not separately reported) Documenting clinical information in the electronic or other health record Kaitlyn Jasso MD [place] [address] [facility], the CDC, and other organizations representing maternal and public health professionals recommend that , , and lactating people and those considering receive the COVID-19 vaccination. Vaccination is the best method to reduce maternal and complications of SARS-CoV-2 infection. This document was created with [email or web address] technology. Though I make every effort to review the dictation as it is transcribed, on occasion the spoken word can be misinterpreted by the technology leading to inappropriate words, phrases, or sentences. This note is addressed to the requesting provider as a consultation for clinical guidance. Specificmedical abbreviations are occasionally used and those are generally approved by the [place]?Board of?Obstetrics and?Gynecology?as well as?Flora spencer abbreviations. The above plan of care was based solely on the diagnoses for which a consultation was requested. ?More frequent testing may be indicated based on her other medical/obstetrical conditions. The management of other or medical conditions is beyond the scope of requested consultation and will vikas caraballo to be followed by the primary primary care nurse practitioner or primary care provider. Note to patient: The Cures Act makes medical notes like these available to patients inthe interest of transparency. However, be advised this is a medical document. It is intended as peer to peer communication. It is written in medical language and may contain abbreviations or verbiagethat are unfamiliar. It may appear blunt or direct. Medical documents are intended to carry relevant information, facts as evident, and the clinical opinion of the practitioner. documented in this encounterNorthwestern [facility] CenterCuriosityville [id number] History of Present illness Narrative* Anabelle Cotto, DEBI - 10/01/2023 9:30 AM EDT Nutritional Assessment Form Date: 10/01/2023 IFEANYI: Estimated Date of Delivery: 01/25/24 EGA: 23w3d Past Medical History: Diagnosis Date Disease of thyroid gland HYPOTHYROIDISM Exocrine pancreatic insufficiency currently on History of heroin abuse ([facility]) in remission since 2015 History of intravenous drug abuse remission since 2016 Hx of pre-eclampsia in prior , currently Infectious viral hepatitis hep c-treatment Opioid dependence in remission ([facility]) OB History 3 Para 2 Term 2 AB Living 2 SAB IAB Ectopic Multiple Live Births 2 Current Outpatient Medications Medication Sig Dispense Refill aspirin 81 mg Take 1 tablet (81 mg total) by mouth in the morning. cyanocobalamin (VITAMIN B12) 1,000 mcg tablet, sublingual Place 1 tablet (1,000 mcg total) under the tongue in the morning. 30 tablet 2 ferrous sulfate 325 (65 FE) mg tablet Take 1 tablet (325 mg total) by mouth daily with breakfast. 30 tablet 1 levothyroxine (SYNTHROID, LEVOTHROID) 75 MCG tablet Take 1 tablet (75 mcg total) by mouth in the morning. ybhpsr-yjdxgsvk-hmsxpyi (CREON) 36,000-114,000- 180,000 unit capsule,delayed release(DR/EC) Take 1 capsule (36,000 units of lipase total) by mouth 3 (three) times a day. vit,ruby 74/iron/folic ( VITAMIN 1+1 ORAL) Take by mouth. sertraline (ZOLOFT) 50 mg tablet Take 1 tablet (50 mg total) by mouth in the morning. No current facility-administered medications for this visit. Present MNT Therapy: regular Insulin Therapy: Date started: Anthropometric Data: Height: Ht Readings from Last 1 Encounters: 09/17/23 170.2 cm (5' 7.01 ) Pre- Wt: 104.3 kg (230 lb) Pre- BMI: 36.01 Current BMI: Body mass index is 38.52 kg/m . Pre Wt. Category: obese Current Weight: Wt Readings from Last 1 Encounters: 10/01/23 111.6 kg (246 lb) Weight Gain Goals: 11-20# Lab Data: BP BP Readings from Last 1 Encounters: 09/17/23 123/72 Hgb Hct OGCT OGTT HgA1C SMBG: Frequency : Testing Times: Glucose meter: Records Kept? 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 Yes Current Exercise program Who prepares the meal pt Who purchase food at your home? pt Equipment use for cooking/food storage has all Food Assistance(Ex.WIC, Food [place]) declined Dining out Yes 2-3 times per month Appetite/Appetite changes increased Weight History stable Do you have cats at home? Infant Feeding Plans Formula Feeding If you have cats, who cleans the litter box? Cravings/Aversions/Pica strawberry shortcake Nutrition Assessment Worksheet: Week/Weekend Food Recall Breakfast Wake up around 4 1st break 9-10 [place] or salad String cheese Snack Lunch 11:30 Cucumbers and strawberries Pop Snack 2:15 Pizza rolls Dinner 6 Stuffed chicken Or meatball sub Or famous bowls water Snack Snack Time Laura Alves present for diet instruction per doctor order secondary to diagnosis of pancreatic exocrine insufficiency. She reports that this is a relatively new diagnosis within the past year. Eats a generally liberalized diet on the pancreatic enzymes and reports being able to tolerate almost anything as long as she takes her enzymes. Has noticed increased weight gain since becoming and quit smoking. Has increased fatigue as well. Food recall suggests patient typically consumes a diet of mainly convenience foods. Pt has gained 16# to date. Based on patient's stated pre- weight, weight gain goal is 11-20#. Estimated energy needs: 2300 kcal (MSJ with extra 200 kcal), 120-150 gm protein (1.2-1.5 gm/kg prepregnancy wt.) and 51 gm fat (20% of total kcal). Nutrition diagnosis: inadequate protein intake related to lack of nutrition knowledge as evidenced by patient's food recall. We discussed the following points during our visit: Small, frequent meals- aim to eat something every 3-4 hours throughout the day Make sure to consume protein containing foods with each meal/snack Try to avoid high fat, highly processed foods whenever possible (general rule of thumb, avoid foodswith >10 gm total fat on nutrition facts label) Use plate method for putting together well balanced meals Drink to satisfy thirst of non-caloric beverages, diet beverages okay as needed. Provided handouts on Plate method, Quick Easy Meals, Snack list, and High protein food list. She denied any questions. Provided pt with RD contact information for further questions or concerns. Face to face time 35 minutes. [facility]Ber[facility] Miscellaneous Notes* Telephone Encounter - Al Rabago - 09/18/2023 8:31 AM EDT Test Driver iar for pt requesting a return call to schedule growth w/ tv and ov in 11 wks. Test Driver offered November 28 at 11, 1:30 or 2:00, or November 29 at 1:30 or 2:00. documented in this encounterBerger [facility]04-30-[facility]24 Telephone encounter Note* Telephone Encounter - Al Rabago - 09/18/2023 8:31 AM EDT Test Driver ira for pt requesting a return call to schedule growth w/ tv and ov in 11 wks. Test Driver offered November 28 at 11, 1:30 or 2:00, or Chantel 12th at 1:30 or 2:00. [employer]04-29-2024 History of Present illness Narrative* Kaitlyn Jasso MD - 09/17/2023 8:45 AM EDT REASON FOR CONSULTATION: IVF HISTORY OF PRESENT ILLNESS: Laura Alves is a pleasant 38 y.o. at 21w3d by 5day embryotransfer due on Estimated Date of Delivery: 01/25/24. complicated by: IVF , donor egg - Patient underwent PGT testing, was informed XY embryo was transferred. History of preeclamspia x2 Hypothyroidism - currently on levothyroxine 75mcg, not on medications prior to . Most recent TSH 2.2 on 05/25/2023. Anxiety/depression - currently managed on zoloft 50mg daily, mood stable. Obesity, BMI 38 Exocrine pancreatic insufficiency currently managed on pancreatic enzyme replacement therapy - [facility] A1c 5.3% 07/19/2022 History of hepatitis C - s/p treatment 2018 Opioid dependence, in remission x8 years History of IVDU, last used 8 tyears Low lying placenta, measuring 1.77cm from internal os Today, the patient is doing well. She denies headaches, vision changes, nausea, vomiting, right upper quadrant or epigastric pain, SOB or chest pain. She denies contractions, vaginal bleeding, leaking of fluid. She reports good movement. Aneuploidy screening: declined, performed PGD and was told XY Carrier screening: none PAST OBSTETRICAL HISTORY: OB History Para Term AB Living 3 2 2 2 SAB IAB Ectopic Multiple Live Births 2 # Outcome Date GA Lbr Ronald/2nd Weight Sex Type Anes PTL Lv 3 Current 2 Term 01/18/16 38w0d 3.062 kg M Vag-Spont EPI ISAI Complications: Preeclampsia 1 Term 01/06/04 40w0d 3.6 kg F Vag-Spont EPI ISAI Complications: Preeclampsia MEDICAL HISTORY: Past Medical History: Diagnosis Date Disease of thyroid gland HYPOTHYROIDISM Hx of pre-eclampsia in prior , currently Infectious viral hepatitis hep c-treatment SURGICAL HISTORY: Past Surgical History: Procedure Laterality Date HYSTEROSCOPY 10/25/2022 TRANSFER EMBRYO INTRAUTERINE 05/09/2023 DAY 5 ALLERGIES: No Known Allergies CURRENT MEDICATIONS: Current Outpatient Medications: aspirin 81 mg, Take 1 tablet (81 mg total) by mouth in the morning., Disp: , Rfl: levothyroxine (SYNTHROID, LEVOTHROID) 75 MCG tablet, Take 1 tablet (75 mcg total) by mouth in the morning., Disp: , Rfl: lmzjbe-ibqqlmuu-yppkgnr (CREON) 36,000-114,000- 180,000 unit capsule,delayed release(DR/EC), Take 1capsule (36,000 units of lipase total) by mouth 3 (three) times a day., Disp: , Rfl: vit,ruby 74/iron/folic ( VITAMIN 1+1 ORAL), Take by mouth., Disp: , Rfl: sertraline (ZOLOFT) 50 mg tablet, Take 1 tablet (50 mg total) by mouth in the morning., Disp: , Rfl: REVIEW OF SYSTEMS: Head and Neck: Negative for any dizziness and headaches. Cardiovascular and Respiratory System: Denies any chest pain, shortness of breath, and coughing. Abdominal and System: Denies any abdominal pain, nausea, vomiting, vaginal bleeding, and vaginal discharge FAMILY/GENETIC HISTORY: No family history of VTE, cardiac defects and mental retardation. SOCIAL HISTORY:Patient denies tobacco use, alcohol use, or drug use. RECENT HOSPITALIZATION: none HABITS: Patient activity no restrictions, diet no restrictions REVIEW OF TESTS AND ULTRASOUND REPORTS: Referral records and [facility] chart were reviewed Pertinent Ultrasound findings are see formal ultrasound report. PHYSICAL EXAMINATION: BP 123/72 Comment: 36 cm/maroon cuff used Pulse 92 Ht 170.2 cm (5' 7.01 ) Wt 111.6 kg (246 lb 0.5 oz) LMP 05/09/2023 BMI 38.53 kg/m Well-appearing in no distress. Respirations not labored, speaking comfortably in full sentences Gravid abdomen +3 pitting edema to knees Lab Results Component Value Date HGBA1C 5.2 02/08/2021 OVERALL ASSESSMENT -Laura Alves is a pleasant 38 y.o. at 21w3d -IVF -PGTA-A vs phenotype discrepancy -hypothyroidism -anxiety/depression -opioid dependence, in remission -history of IV drug use, in remission -history of hepatitis-C -low-lying placenta -obesity, BMI 38 -lower extremity edema COUNSELING IVF In a systematic review, pregnancies achieved with IVF or ICSI are associated with higher rates of total congenital heart disease that in those pregnancies occurring naturally (1.3% vs 0.7%). [facility] suggest that echocardiogram be offered to patients with pregnancies achieved with either IVF or ICSI. In addition, assessment of growth should be performed in the 3rd trimester for pregnancies with IVF. Low-dose aspirin for patients with pregnancies with IVF for attempted preeclampsia prophylaxis is not recommended unless there are additional risk factors. Due to the increased risk of stillbirth, weekly surveillance beginning 36 weeks' gestation is recommended. PGTA vs phenotype Sex Discrepancy In this , patient underwent PGT-AA for the purpose of identifying sex chromosomes, partnerstrongly desired a male embryo. She was told that a male embryo (xy) had been transferred. We discussed that today imaging of genitalia is consistent with phenotypic female. We reviewed that there are 3 possible reasons for this finding including incorrect PGT-A transfer/lab error, mosaicism and possible underlying disorder of sex development (complete androgen insensitivity syndrome, congenital adrenal hyperplasia) Per ACOG Committee Opinion 799 traditional diagnostic testing or screening for aneuploidy should be offered to all patients with had pre implantation genetic testing-aneuploidy, in accordance with the recommendations for all patients . Options for further testing were discussed in detail during today's visit. The patient was offered cell free DNA screening. Although cell-free DNA is not a diagnostic test , it has high sensitivity and specificity for the most common aneuploidies. A negative cell freeDNA does not ensure an unaffected . A patient with a positive screen should be referred for genetic counseling and offered invasive diagnosis for confirmation of screen results. Limitations of cell free DNA screening were reviewed with the patient. Cell free DNA does not replace the accuracy and diagnostic precision of amniocentesis which remains an option for all women. We discussed the option of amniocentesis for definitive genetic testing. Amniocentesis allows for testing of chromosomal microarray, which can identify clinically significant microdeletions and microduplications in 6 percent of euploid fetuses with ultrasound abnormalities and 1.7 percent of euploid fetuses without ultrasound abnormalities in whom a karyotype was performed on a chorionic villus sample, amniocytes, or a percutaneous umbilical blood sample. I discussed complications of invasive testing, including a 1 in 900 risk for labor, rupture of membranes, infection or bleeding that may lead to pre-viable or delivery. The patient desired desired to proceed with cell free DNA screening and if discordant sex chromosomes to phenotypic female presentation, then follow up with amniocentesis. Hypothyroidism We discussed the concerns with hypothyroidism in . Women with hypothyroidism have a higherincidence of complications, including miscarriages, preeclampsia, placental abruption, low weight, prematurity and stillbirths. Uncontrolled hypothyroidism in is also associated with cognitive and developmental delays in the fetus, and when extreme can result in severe mental retardation and deafness. Most recent thyroid function studies were on 05/25/2023, TSH 2.2. She is currently taking [id number] daily. I have instructed her to maintain this dose. In addition, I recommend obtaining thyroid function tests 3 weeks after dosage change or every 6-8 weeks once stable to ensure she is on adequate dosing. Her requirement may increase as a result of . History of preeclampsia Women with history of preeclampsia are at increased risk for recurrent preeclampsia in a subsequentpregnancy. However, the recurrence risk varies with the severity and time of onset of the initial episode. Women with early-onset, severe preeclampsia are at greatest risk of recurrence (as high as 25 to 65 percent). The risk of preeclampsia in a second is much lower (5 to 7 percent) for women who had preeclampsia without severe features in their first and less than 1 percent in women who had a normotensive first . I recommend baby aspirin once daily to reduce the risk of preeclampsia. There have been several dosing strategies for low dose aspirin for preeclampsia prevention, 81 mg (endorsed by ACOG) and 150 mgdaily. Our practice continues to endorse the 81 mg dosing regimen for preeclampsia prevention as isrecommended by the [place] [employer] Committee Opinion No. 743. Higher doses (150mg) have been studied, but utilized a screening strategy that is not widely performed in the [place] (serum analytes and uterine artery Doppler), limiting the generalizability of the findings. Lower extremity edeam Of note, patient has significant lower extremity edema, +3 to the knees. I recommended compression stockings. There was no signs symptoms of preeclampsia otherwise. A screening BNP was ordered along with urine protein creatinine ratio. Exocrine pancreatic insufficiency Patient was diagnosed with Exocrine pancreatic insufficiency currently managed on pancreatic enzymereplacement therapy - Follows with Dr Cline ([facility] [place]). These records arenot available to me, we have requested records. . We reviewed that exocrine pancreatic insufficiency can be associated with micronutrient deficiencies, insulin resistance (A1c 5.3% 07/19/2022) and micronutrient deficiencies. Patients with pancreatic insufficiency are at increased risk of insufficient weight gain and growth problems in the . Micronutrient Dosing Recommendations: Calcium: recommend 1000-1200mg daily; if deficient, recommend 1800-27580 mg PO daily in divided doses Vitamin D: recommend 800IU during and ; if deficient, recommend 3000-6000IU of D3 daily Vitamin B1: recommend 50mg daily; if deficient, recommend 100-250mg monthly IM injects or 100mg TIDPO until symptoms resolve Vitamin B12: recommend 35-100mcg daily PO; if deficient, recommend 1000mcg daily PO until level normalize Folate: recommend 800mcg-1000mcg daily PO (do not exceed 1mg daily); if deficient, recommend 1000mcg daily PO until levels normalize Iron: recommend 45-60mg of elemental iron daily from all sources; if deficient, recommend 150-300mgPO BID to TID OR IV iron Anxiety in Opiate dependence, in remission History of IV drug use, in remission Anxiety disorders are among the most common psychiatric conditions. Women are at an increased risk of developing depression and also substance use disorders. Anxiety increases the risk for forceps deliveries, prolonged labor, precipitate labor, distress, delivery and spontaneous . Regarding risks there have been associations with decreased developmental scores and inadaptability as well as slowed mental development at 2 years of age. The patient is currently on Zoloft. SSRIs are generally considered an option during , including citalopram (Celexa) and sertraline (Zoloft). Potential complications include maternal weight changes and premature . Most studies show that SSRIs aren't associated with defects. However, paroxetine (Paxil) might be associated with a small increased risk of a heart defect and is generally discouraged during . Reviewed the risk of pulmonary hypertension in less than 05/999 fetus is exposed to SSRIs in . In addition we discussed withdrawal and reviewed with her that her baby might experience temporary signs and symptoms of discontinuation -- such as jitters, irritability, poor feeding and respiratory distress -- for up to a month after . She vocalized understanding. A meta-analysis by Douglas et al, 2015 (PMID [id number]) of prospective cohort studies found no association between SSRI use in first trimester and women with depression who did not take antidepressants in . Thus, the previously identified association between in-utero antidepressant exposure and heart defects appears most likely to be associated with other risk factors and behaviors that are prevalent in the population taking antidepressants in . An association between SSRIs and pulmonary hypertension was first noted in 2006 and led the FDA to have an alert. The studies in the literature have mixed results. Some found no association and others found an association. Dena et al 2015 (PMID [id number]) performed an analysis on close to 3.8 million women and found an OR of 1.51 (CI, 1.35-1.69) for an association between SSRI exposure and pulmonary hypertension in the unadjusted analysis. However, when the analysis was adjusted for potential confounders such as major depressive disorder the OR was then not significant. Although it remains to be seen whether there are associations between antidepressants and poor outcomes, it is clear that the psychiatric illness itself, and its associated risk factors, are associated with significant effects on infant outcomes. SUMMARY/RECOMMENDATION: Cell free DNA ordered, amniocentesis pending results of cell free DNA. If cell free DNA is consistent with XX fetus, no indication for amniocentesis as sex chromosomes would match phenotype. If cell free DNA is consistent with XY fetus, would recommend amniocentesis to evaluate for congenital adrenal hyperplasia or complete androgen insensitivity syndrome) Level 2 anatomy US and echocardiogram is incomplete, attempted completion scheduled in 4 weeks No evidence of preeclampsia today, though significant bilateral lower extremity edema, BNP and urine protein creatinine ratio ordered Resulted BNP following visit showed BNP at goal, less than 100 Nutrition consult ordered in setting of exocrine pancreatic insufficiency Evaluation for micronutrient deficiencies ordered: CBC, thiamine (vitamin B1), vitamin B12, folate,ferritin and iron Results following visit showed vitamin B12 and iron deficiency, replacements ordered Continue evaluation for micronutrient deficiencies every trimester: CBC, ferritin, B12, calcium andVitamin D , through primary OB Recommend gestational diabetes screening Surveillance for adequate maternal gestational weight gain Continue Zoloft 50 mg daily Continue baby aspirin for attempeted preeclampsia prevention Continue levothyroxine 75mcg daily Check thyroid function tests 3 weeks after dose change or every 6-8wks once stable, TSH goal <2.5 Check hepatitis-C viral load in 3rd trimester, through primary OB Repeat growth ultrasound and transvaginal ultrasound at 32 weeks with MFM testing weekly starting at 36wks GA, through primary OB Delivery at 39wk given h/o IVF If patient deliveries by section, recommend anti coagulation during hospitalization with Lovenox 40 mg daily No indication for levothyroxine as patient was not on any levothyroxine prior to and IVF transfer Monitor for signs symptoms of depression DISPOSITION: At this point the patient is in complete care of her primary care nurse practitioner. Patient does have ultrasound and office visit scheduled with us. Thank you for allowing me to participate in the care of Laura Alves. If there any questions please do not hesitate to contact us. Total time spent was 104 minutes: Preparing to see the patient (e.g., review of tests) Obtaining and/or reviewing separately obtained history Performing a medically appropriate examination and/or evaluation Counseling and educating the patient/family/caregiver - 51 min spent in direct patient counseling Ordering medications, tests, or procedures Referring and communicating with other health pediatric acute care unit nurse (not separately reported) Documenting clinical information in the electronic or other health record Kaitlyn Jasso MD Maternal- Medicine [place] [id number] [facility] [address] [place] [address] [facility], the CDC, and other organizations representing maternal and public health professionals recommend that , , and lactating people and those considering receive the COVID-19 vaccination. Vaccination is the best method to reduce maternal and complications of SARS-CoV-2 infection. This document was created with [employer] technology. Though I make every effort to review the dictation as it is transcribed, on occasion the spoken word can be misinterpreted by the technology leading to inappropriate words, phrases, or sentences. This note is addressed to the requesting provider as a consultation for clinical guidance. Specificmedical abbreviations are occasionally used and those are generally approved by the [place]?Board of?Obstetrics and?Gynecology?as well as?Flora spencer abbreviations. The above plan of care was based solely on the diagnoses for which a consultation was requested. ?More frequent testing may be indicated based on her other medical/obstetrical conditions. The management of other or medical conditions is beyond the scope of requested consultation and will c ontinue to be followed by the primary primary care nurse practitioner or primary care provider. Note to patient: The Century Cures Act makes medical notes like these available to patients inthe interest of transparency. However, be advised this is a medical document. It is intended as peer to peer communication. It is written in medical language and may contain abbreviations or verbiagethat are unfamiliar. It may appear blunt or direct. Medical documents are intended to carry relevant information, facts as evident, and the clinical opinion of the practitioner. * Whitney Russo RN - 09/17/2023 8:45 AM EDT Headache/epigastric pain/blurry vision/swelling? Migraines with nausea/light/noise sensitivity, Swelling in lower extremities Cramping/contractions? no Abnormal vaginal discharge? no Spotting/vaginal bleeding? no Loss of fluid like your water may have broken? no Cats in the home? yes Do you change the litter box? N/a Flu vaccine? Yes Genetic testing done this here or other office? IVF Embryo testing Have you been seen here at [facility] in a previous ? no Recent ER visits or hospitalizations? ER for possible ROM Bring blood sugar log or meter with you today? (Please bring them with you for every visit at [facility]) n/a Traveled outside the country in the past 6 month no Any concerns that you would like me to mention to the provider today? Swelling all over.Feet very painful * Whitney Russo RN - 09/17/2023 8:45 AM EDT Blood drawn for cell-free DNA testing by lab [facility]) with add on labs. Patient tolerated well. [facility] NoteXR FOOT LT MIN 3 VWS Procedure: Left foot radiographs performed Number of views:3 History:Pain Comparison:None Findings: There is no fracture, dislocation, or destructive lesion. Soft tissue edema is seen overlying the dorsum of the foot Impression: Soft tissue edema. No acute fractures or dislocations are seen. Finalized by Mayelin Pinto DO on 08/31/2023 11:[address] [facility] 06-12-2023 Evaluation note* Encounter Date Diagnosis [...] and minimal scaring, this will be reviewed [facility] 11-17-2023 Evaluation note* Encounter Date Diagnosis Assessment Notes Treatment Notes Treatment Clinical Notes Mar, Exocrine pancreatic insufficiency (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) [facility] Other 10-31-2023 Evaluation note* Encounter Date Diagnosis Assessment Notes Treatment Notes Treatment Clinical Notes Feb, Alternating constipation and diarrhea (ICD-10 - R19.8) Feb, Fecal urgency (ICD-10 - R15.2) [facility] Other 10-30-2023 Evaluation note* Encounter Date Diagnosis Assessment Notes Treatment Notes Treatment Clinical Notes Feb, Alternating constipation and diarrhea (ICD-10 - R19.8) [facility] 10-26-2023 [facility] Encounter Date Diagnosis Assessment Notes Treatment Notes Treatment Clinical Notes Feb, Alternating constipation and diarrhea (ICD-10 - R19.8) [facility] Other 09-21-2023 Evaluation note* Encounter Date Diagnosis Assessment Notes Treatment Notes Treatment Clinical Notes Jan, Alternating constipation and diarrhea (ICD-10 - R19.8) WORSENING DIARRHEA AND CONSTIPATION OVER THE PAST YEAR. DOES HAVE SOME NOCTURNAL AWAKENINGS WITH THE DIARRHEA. CAN GO 4-5 DAYS WITH OUT A BOWEL MOVEMENT WHEN SHE IS CONSTIPATED. WILL ORDER IBS WORK UP WILL PROCEED WITH COLONOSCOPY [facility] Other 08-29-2023 Evaluation note* Encounter Date Diagnosis [...] no improvement in 2 to 3 days [facility] Other 2023 Evaluation note* Encounter Date Diagnosis [...] no improvement in 2 to 3 days [facility] Other 04-17-2023 Evaluation note* Encounter Date Diagnosis Assessment Notes Treatment Notes Treatment Clinical Notes Aug, Contact with and (suspected) exposure to other viral communicable diseases (ICD-10 - Z20.828) [facility] Other 02-22-2023 Evaluation note* Encounter Date Diagnosis Assessment Notes Treatment Notes Treatment Clinical Notes Jun, Contact with and (suspected) exposure to covid-19 (ICD-10 - Z20.822) [facility] Other 02-17-2023 Evaluation note* Encounter Date Diagnosis Assessment Notes Treatment Notes Treatment Clinical Notes Jun, Preoperative clearance (ICD-10 - Z01.818) [facility] Other 09-16-2022 Evaluation note* Encounter Date Diagnosis Assessment Notes Treatment Notes Treatment Clinical Notes Jan, Contact with and (suspected) exposure to covid-19 (ICD-10 - Z20.822) [facility] [employer] Other Evaluation + Plan note No data available for this section [facility] Evaluation note* Diagnosis Onset Date Resolution Status Diarrhea acute [facility] Work Phone: Evaluation noteNo InformationNortSt. [facility] [employer] Other Evaluation note* Diagnosis Blood pressure check Screening for hypertension 2 weeks follow-up documented in this encounter [facility]* Diagnosis 6 weeks follow-up- Primary documented in this encounter [facility]* Diagnosis 21 weeks gestation of - Primary Hypothyroidism affecting , antepartum History of pre-eclampsia in prior , currently in second trimester Other obesity due to excess calories affecting in second trimester resulting from assisted reproductive technology in second trimester Opioid dependence in remission ([facility]) Opioid type dependence, in remission History of intravenous drug abuse Exocrine pancreatic insufficiency Other specified disease of pancreas Bilateral lower extremity edema Abnormal genetic test during [facility] Diagnosis Hypothyroidism affecting , antepartum- Primary History of pre-eclampsia in prior , currently in second trimester [place] product of in vitro fertilization (IVF) [facility] Diagnosis Exocrine pancreatic insufficiency Other specified disease of pancreas [facility] Diagnosis 21 weeks gestation of Hypothyroidism affecting , antepartum History of pre-eclampsia in prior , currently in second trimester Other obesity due to excess calories affecting in second trimester resulting from assisted reproductive technology in second trimester Opioid dependence in remission ([facility]) Opioid type dependence, in remission History of intravenous drug abuse Exocrine pancreatic insufficiency Other specified disease of pancreas Bilateral lower extremity edema [facility] Diagnosis Gestational diabetes mellitus (GDM), antepartum, gestational diabetes method of control unspecified- Primary [facility] Diagnosis Gestational diabetes mellitus (GDM), antepartum, gestational diabetes method of control unspecified- Primary [facility] Diagnosis 26 weeks gestation of - Primary Exocrine pancreatic insufficiency Other specified disease of pancreas Opioid dependence in remission ([facility]) Opioid type dependence, in remission Other obesity due to excess calories affecting in second trimester Hypothyroidism affecting , antepartum History of pre-eclampsia in prior , currently in second trimester Polyhydramnios affecting [facility]* Diagnosis Gestational diabetes mellitus (GDM) in third trimester, gestational diabetes method of control unspecified- Primary [facility]* Diagnosis Gestational diabetes mellitus (GDM), antepartum, gestational diabetes method of control unspecified Gestational diabetes mellitus (GDM) in third trimester, gestational diabetes method of control unspecified [facility] Diagnosis Insulin controlled gestational diabetes mellitus (GDM) in third trimester- Primary Hx of preeclampsia, prior , currently with other poor obstetric history [facility] Insulin controlled gestational diabetes mellitus (GDM) in third trimester- Primary Polyhydramnios affecting Exocrine pancreatic insufficiency Other specified disease of pancreas Opioid dependence in remission ([facility]) Opioid type dependence, in remission resulting from assisted reproductive technology in third trimester History of intravenous drug abuse History of pre-eclampsia in prior , currently with other poor obstetric history 32 weeks gestation of Hypothyroidism affecting , antepartum Severe obesity due to excess calories affecting , antepartum (CMS-HCC) [facility] Diagnosis Polyhydramnios affecting - Primary Insulin controlled gestational diabetes mellitus (GDM) in third trimester Exocrine pancreatic insufficiency Other specified disease of pancreas Opioid dependence in remission ([facility]) Opioid type dependence, in remission History of pre-eclampsia in prior , currently with other poor obstetric history Hypothyroidism affecting , antepartum [facility] Diagnosis Insulin controlled gestational diabetes mellitus (GDM) in third trimester- Primary [facility] Diagnosis Well woman exam with routine gynecological exam Routine gynecological examination documented [facility] Narrative - Reported* Type Description Date Medical History ANXIETY AND DEPRESSION [facility] Other Hospital Discharge instructions Additional Instructions DISCHARGE [...] if you have any problems. -Office number [phone] Work Phone: Hospital Discharge instructions No data available for this section [facility] InstructionsNot on filedocumented in this encounter [facility] filedocumented in this encounter [facility] filedocumented in this encounter [facility] on filedocumented in this encounter [facility] filedocumented in this encounter [facility] on filedocumented in this encounter [facility] on filedocumented in this encounter [facility] on filedocumented in this encounter [facility]Not on filedocumented in this encounter [facility]Not on filedocumented in this encounter [facility] on filedocumented in this encounter [facility]Not on filedocumented in this encounter [facility]Not on filedocumented in this encounter [facility] No data available for this section [facility] Reason for referral (narrative)* Consultation (Routine) - Pending Review Specialty Diagnoses / Procedures Referred By Contac t Referred To Contact Maternal and Medicine Diagnoses Exocrine pancreatic insufficiency Kaitlyn Jasso MD [address] [place] [address] [facility] Maternal Med [address] [place] [address] Referral ID Status Reason Start Date Expiration Date Visits Requested Visits Authorized [id number] Pending Review Specialty Services Required 09/17/2023 09/16/2024 1 1 [facility] for referral (narrative)* Consultation (Routine) - Pending Review Specialty Diagnoses / Procedures Referred By Contac t Referred To Contact Maternal and Medicine Diagnoses Gestational diabetes mellitus (GDM), antepartum, gestational diabetes method of control unspecified Kaitlyn Jasso MD [address] [place] [address] [facility] Maternal Med [address] [place] [address] Referral ID Status Reason Start Date Expiration Date Visits Requested Visits Authorized [id number] Pending Review Specialty Services Required 10/26/2023 10/25/2024 1 1 * Consultation (Routine) - Pending Review Specialty Diagnoses / Procedures Referred By Contac t Referred To Contact Maternal and Medicine Diagnoses Gestational diabetes mellitus (GDM), antepartum, gestational diabetes method of control unspecified Kaitlyn Jasso MD [address] [place] [address] [facility] Maternal Med [address] [place] [address] Referral ID Status Reason Start Date Expiration Date Visits Requested Visits Authorized [id number] Pending Review Specialty Services Required 10/26/2023 10/25/2024 1 1 [facility] NarrativeRED EQUINOX, ANTIGEN PROCEDURE TESTNoCura TV Other Reason for visit NarrativeNEEDSNEGATIVE, RAPID COVID TEST FOR PROCEDURENoCura TV Other Reason for visit Narrative* Consultation (Routine) - Pending Review Specialty Diagnoses / Procedures Referred By Johanna mata Referred To Contact Maternal and Medicine Diagnoses Exocrine pancreatic insufficiency Kaitlyn Jasso MD [address] [facility] [address] [place] [address] [facility] Maternal Med [address] [place] [address] Referral ID Status Reason Start Date Expiration Date Visits Requested Visits Authorized [id number] Pending Review Specialty Services Required 09/17/2023 09/16/2024 1 1 [facility] Chief Complaint and Reason for Visit Chief [...] Family History No Family History Records Found Reason for Referral Specialty Diagnoses / Procedures Referred By Johanna mata Referred To Contact Maternal and Medicine Diagnoses Polyhydramnios affecting Insulin controlled gestational diabetes mellitus (GDM) in third trimester Exocrine pancreatic insufficiency Opioid dependence in remission ([facility]) History of pre-eclampsia in prior , currently Hypothyroidism affecting , antepartum Procedures [facility] with or without consult Kaitlyn Jasso MD [address] [facility] [address] [address] [facility] Maternal Med [address] [place] [address] Referral ID Status Reason Start Date Expiration Date V isits Requested Visits Authorized [id number] Pending Review 12/03/2023 12/02/2024 1 1 Specialty Diagnoses / Procedures Referred By Contac Referred To Contact Maternal and Medicine Diagnoses Hypothyroidism affecting , antepartum History of pre-eclampsia in prior , currently in second trimester [place] product of in vitro fertilization (IVF) Procedures [facility] with or without consult Kaitlyn Jasso MD [address] [facility] [employer] [address] [place] [address] [facility] Maternal Med [address] [place] [address] Referral ID Status Reason Start Date Expiration Date V isits Requested Visits Authorized [id number] Pending Review 09/18/2023 09/17/2024 1 1 Referral ID Status Reason Start Date Expiration Date V isits Requested Visits Authorized [id number] Pending Review 09/18/2023 09/17/2024 1 1 Additional Source Comments REASON FOR VISIT (unrecogniz ed section and content) Reason Comments Care 2 week post b /p check. Pt delivered on 01/07/2024 Reason Comments Follow-up Reason Comments Med Refill Reason Comments Med Change Request Reason Comments IVF with Donor Egg AMA Hypothyroidism H/X Preeclampsia H/X Hep C Reason Comments add on poly Reason Comments Polyhydraminos Specialty Diagnoses / Procedures Referred By Contac Referred To Contact Maternal and Medicine Diagnoses Gestational diabetes mellitus (GDM), antepartum, gestational diabetes method of control unspecified Kaitlyn Jasso MD [address] [address] [facility] Maternal Med [address] [place] [address] Referral ID Status Reason Start Date Expiration Date Visits Requested Visits Authorized [id number] Pending Review Specialty Services Required 10/26/2023 10/25/2024 1 1 Reason Comments med start Reason Comments Diabetes Low Lying Placenta Reason Comments Well Women Visit Care Teams [...] Active Shun Hill MD Attending Provider Active Immunohematologist Relationship Specialty Start Date End Date Irma Burt MD [address] [id number] PCP - General Family Medicine 06/19/23 Immunohematologist Relationship Specialty Start Date End Date Irma Burt MD [address] [place] [address] PCP - General Family Medicine 06/19/23 Immunohematologist Relationship Specialty Start Date End Date Irma Burt MD [address] [place] [address] PCP - General Family Medicine 06/19/23 Immunohematologist Relationship Specialty Start Date End Date Irma Burt MD [address] [place] [address] PCP - General Family Medicine 06/19/23 Immunohematologist Relationship Specialty Start Date End Date Irma Burt MD [address] [place] [id number] PCP - General Family Medicine 06/19/23 Immunohematologist Relationship Specialty Start Date End Date No Pcp, [place] [address] PCP - General Family Medicine 11/18/20 Immunohematologist Relationship Specialty Start Date End Date No Pcp, [place] [address] PCP - General Family Medicine 11/18/20 Immunohematologist Relationship Specialty Start Date End Date No Pcp, [place] [address] PCP - General Family Medicine 11/18/20 Immunohematologist Relationship Specialty Start Date End Date No Pcp, [place] [address] PCP - General Family Medicine 11/18/20 Team Status: Inactive Member Role Status Dates Irma Burt DO Primary Care Provider Active S tart: June 25, 2024 End: June 25, 2024 Heather Vasquez , DO Attending Provider Active St art: June 25, 2024 End: June 25, 2024 Team Status: Inactive Member Role Status Dates Irma Burt DO Primary Care Provider Active S tart: July 02, 2024 End: July 02, 2024 Heather L Ly , DO Attending Provider Active St art: July 02, 2024 End: July 02, 2024 Immunohematologist Relationship Specialty Start Date End Date No Pcp, [place] [address] PCP - General Family Medicine 11/18/20 Immunohematologist Relationship Specialty Start Date End Date No Pcp, [place] [address] PCP - General Family Medicine 11/18/20 Immunohematologist Relationship Specialty Start Date End Date No Pcp, [place] [address] PCP - General Family Medicine 11/18/20 Immunohematologist Relationship Specialty Start Date End Date No Pcp, [place] [address] PCP - General Family Medicine 11/18/20 Immunohematologist Relationship Specialty Start Date End Date No Pcp, [place] [address] PCP - General Family Medicine 11/18/20 Immunohematologist Relationship Specialty Start Date End Date No Pcp, [place] [address] PCP - General Family Medicine 11/18/20 Immunohematologist Relationship Specialty Start Date End Date No Pcp, [place] [address] PCP - General Family Medicine 11/18/20 Immunohematologist Relationship Specialty Start Date End Date No Pcp, [place] [address] PCP - General Family Medicine 11/18/20 Immunohematologist Relationship Specialty Start Date End Date No Pcp, [place] [address] PCP - General Family Medicine 11/18/20 Immunohematologist Relationship Specialty Start Date End Date No Pcp, [place] [address] PCP - General Family Medicine 11/18/20 Immunohematologist Relationship Specialty Start Date End Date No Pcp, [place] [address] PCP - General Family Medicine 11/18/20 Immunohematologist Relationship Specialty Start Date End Date No Pcp, [place] [address] PCP - General Family Medicine 11/18/20 Immunohematologist Relationship Specialty Start Date End Date No Pcp, [place] [address] PCP - General Family Medicine 11/18/20 Immunohematologist Relationship Specialty Start Date End Date Irma Burt MD [address] [place] [address] PCP - General Family Medicine 06/19/23 Immunohematologist Relationship Specialty Start Date End Date Irma Burt MD [address] [facility] [place] [address] PCP - General Family Medicine 06/19/23 Immunohematologist Relationship Specialty Start Date End Date Irma Burt MD [address] [facility] [address] PCP - General Family Medicine 06/19/23 INFORMATION SOURCE (unrecogn ized section and content) DATE CREATED AUTHOR 09/22/2023 [facility] DATE CREATED AUTHOR AUTHOR'S ORGANIZ ATION 12/25/2023 [facility] DATE CREATED AUTHOR AUTHOR'S ORGANIZ ATION 04/21/2024 [facility] DATE CREATED AUTHOR AUTHOR'S ORGANIZ ATION 07/22/2024 [facility] DATE CREATED AUTHOR AUTHOR'S ORGANIZ ATION 08/19/2024 [facility] [place] [facility] EPIC Goals (unrecognized section and content) Goals may [...] BE BASED ON THE PRIMARY CLINICAL RECORDS. [facility] [employer] [facility]. provides no warranty or guarantee of the accuracy or completeness of information in this document.
[2025-03-06 10:13] LABS: Hematocrit 39.1 % (36.0-48.0); Hemoglobin 12.6 g/dL (12.0-16.0); Immature Granulocytes Abs Auto 0.02 10^3/uL (0.00-0.03); Immature Granulocytes Pct Auto 0.3 % (0.0-0.5); Lymphocytes Absolute Auto 1.6 10^3/uL (1.2-3.8); Mean Corpuscular HGB Conc 32.2 g/dL (29.9-35.2); Mean Corpuscular Hemoglobin 28.0 pg (26.7-34.0); Mean Corpuscular Volume 86.9 fL (81.0-99.0); Platelet Count 221 10^3/uL (150-450); Red Blood Count 4.50 10^6/uL (4.20-5.40); White Blood Count 7.2 10^3/uL (4.0-11.0)
[2025-03-06 11:12] LABS: Alanine Aminotransferase 38 U/L (14-59); Albumin Globulin Ratio 0.9; Albumin Level 3.4 g/dL (3.4-5.0); Alkaline Phosphatase 90 U/L (46-116); Anion Gap 10.5; Aspartate Amino Transferase 21 U/L (15-37); Blood Urea Nitrogen 11.0 mg/dL (7.0-18.0); Calcium 8.6 mg/dL (8.5-10.1); Carbon Dioxide 27.5 mmol/L (21.0-32.0); Chloride 104 mmol/L (98-107); Cholesterol 225 mg/dL (<=200); Estimated GFR (African America >60 (>=60 mL/min/1.73m^2); Estimated GFR (Non-African Ame >60 (>=60 mL/min/1.73m^2); Globulin 3.9 g/dL; Glucose 89 mg/dL (74-106); HDL Cholesterol 41 mg/dL (40-60); Potassium 4.0 mmol/L (3.5-5.1); Sodium 138 mmol/L (136-145); Thyroid Stimulating Hormone 2.680 uIU/mL (0.358-3.740); Total Protein 7.3 g/dL (6.4-8.2); Triglycerides 240 mg/dL (<=150); VLDL CHOLESTEROL 48.0 mg/dL
== END 2025-03-06 09:37 | disposition home or self-care (01) ==
LOC: LAB 09:39
DX: Z00.00 Encounter for general adult medical examination without abnormal findings (principal); F33.1 Major depressive disorder, recurrent, moderate; O24.414 Gestational diabetes mellitus in pregnancy, insulin controlled; R60.1 Generalized edema; F41.1 Generalized anxiety disorder
CPT/HCPCS: 36415; 80053; 80061; 83036; 84443; 85025

== ENCOUNTER 2025-03-24 14:53 | Outpatient (RCR) | payer OTHER, SELFPAY | END 2025-04-10 07:05 | disposition home or self-care (01) | LOC: PT 14:53 | DX: M25.512 Pain in left shoulder (principal) | CPT/HCPCS: 97110; 97140; 97161 ==